=== PATIENT | male | born 1980 ===

== ENCOUNTER 2019-05-23 03:00 | Inpatient (IN) | payer OTHER ==
[2019-05-23 03:42] LABS: Anisocytosis Slight; HCT 48.6 % (39.0-53.0); HGB 15.6 gm/dL (13.0-17.5); MCH 34.1 pg (25.0-35.0); MCHC 32.1 g/dL (31.0-37.0); MCV 106.2 fL (80.0-100.0); Macrocytosis Marked; Mean Platelet Volume 10.7; Platelet Count 176 k/uL (150-450); RBC 4.58 m/uL (4.30-5.90); RDW 16.3 % (11.5-15.5)
[2019-05-23 03:46] LABS: ALT 89 U/L (4-49); African American GFR (CKD) >90 (>60 ml/min/1.73 sqM); Albumin 3.2 g/dL (3.5-5.0); Anion Gap 25 mmol/L; Blood Urea Nitrogen 7 mg/dL (9-20); Calcium 8.1 mg/dL (8.4-10.2); Carbon Dioxide 11 mmol/L (22-30); Chloride 95 mmol/L (98-107); Glucose 168 mg/dL (74-99); INR 1.1 (<1.2); Non-African American GFR(CKD) >90 (>60 ml/min/1.73 sqM); Partial Thromboplastin Time 23.6 sec (22.0-30.0); Prothrombin Time 11.6 sec (9.0-12.0); Sodium 131 mmol/L (137-145); Total Protein 7.1 g/dL (6.3-8.2)
--- NOTE | 2019-05-23 03:48 | XR ---
EXAMINATION TYPE: XR chest 2V DATE OF EXAM: 05/23/2019 COMPARISON: NONE HISTORY: Difficulty breathing TECHNIQUE: FINDINGS: There is blunting left costophrenic angle. There is linear density at the left lung base. T here is mild linear density right midlung. There is poor inspiration. Heart size is normal. No heart failure. Bony thorax is intact. IMPRESSION: Bilateral basilar atelectasis. Left pleural effusion. Limited exam due to patient's size. Normal heart. No heart failure.
[2019-05-23] MEDS ORDERED: SODIUM CHLORIDE 0.9% 1,000 ML IV ONE ×4 (03:54→11:25)
[2019-05-23] MEDS ORDERED: SODIUM CHLORIDE 0.9% 500 ML 500 ML IV ONE (03:54)
[2019-05-23 03:58] LABS: AST 431 U/L (17-59); Alcohol 128 mg/dL; Alkaline Phosphatase 288 U/L (38-126); Magnesium 1.9 mg/dL (1.6-2.3); Potassium 4.2 mmol/L (3.5-5.1)
[2019-05-23 03:59] LABS: Lactic Acid, Venous 12.8 mmol/L (0.7-2.0)
[2019-05-23] MEDS ORDERED: LORazepam 2 MG/ML INJ IV PRN (03:59)
[2019-05-23] MEDS ORDERED: THIAMINE 100 MG/ML 2 ML VIAL IM STA (03:59)
[2019-05-23] MEDS: LORazepam 2 MG/ML INJ IV PRN ×5 (04:10→22:01)
[2019-05-23 04:15] LABS: Band Neutrophils % 14 %; Neutrophils % (M) 78 %; Nucleated Red Blood Cells 6 /100 WBC (0-0); Total Cells Counted 200
[2019-05-23 04:16] LABS: Lymphocytes # (M) 1.19 k/uL (1.0-4.8); WBC 19.9 k/uL (3.8-10.6)
[2019-05-23 04:17] LABS: Polychromasia Present; Stomatocytes Present; Target Cells Present
[2019-05-23 04:18] LABS: Toxic Granulation Present
[2019-05-23 04:19] LABS: Toxic Vacuolation Present
--- NOTE | 2019-05-23 04:50 | CT ---
EXAMINATION TYPE: CT chest angio for PE DATE OF EXAM: 05/23/2019 COMPARISON: None HISTORY: SOB CT DLP: 753.5 mGycm Automated exposure control for dose reduction was used. CONTRAST: Performed with IV Contrast, patient injected with 100 mL of Isovue 370. There are 3-D post processed images. FINDINGS: There is mild to moderate left pleural effusion. There is bilateral basilar pulmonary atelectasis and infiltrate. Heart size is normal. There is no pericardial effusion. There is abdominal ascites. Ther e is diffuse fatty infiltration of the liver. Liver appears enlarged. Thoracic aorta shows no aneurysm or dissection. There is no mediastinal adenopathy. There are no eugenio r masses. I see no filling defects in the pulmonary arteries. Bony thorax is intact. IMPRESSION: Hepatomegaly. Left pleural effusion and bilateral basilar pulmonary infiltrates and atelectasis. No evidence of pulmonary embolism. Abdominal ascites.
[2019-05-23] MEDS ORDERED: AZITHROMYCIN 500 MG in SODIUM CHLORIDE 0.9% 250 ML IVPB ONE (05:00)
[2019-05-23] MEDS ORDERED: TOBRAMYCIN 0.3% OPHTH OINT 3.5 GM TUBE BOTH EYES STA (05:10)
--- NOTE | 2019-05-23 05:11 | ED ---
General Adult HPI - General Source: patient, EMS Mode of arrival: EMS Limitations: no limitations <Mercedes Ragland - Last Filed: 05/27/19 04:36> <Nahomy Chavez - Last Filed: 05/28/19 21:28> - General Chief complaint: Shortness of Breath Stated complaint: SOB/Weakness Time Seen by Provider: 05/23/19 03:07 - History of Present Illness Initial comments: 39-year-old male patient with past medical history significant for PTSD, alcohol abuse, elevated liver enzymes presents to the emergency department today for evaluation of shortness of breath and weakness. Patient states his been feeling unwell for the last one to 2 days. Patient states became very short of breath today. States he is having pain in his chest especially with breathing. He is reporting abdominal distention and tightness. Denies any nausea or vomiting. Patient does admit to drinking a fifth of whiskey per day. Denies any cough or congestion. Denies any hemoptysis. Denies any difficulty with urination or bowel movements. Patient denies noticing any skin color change. He does live at home with his and son, he states that they have reported no seizure-like activity. States his last drink was around 10:30. Patient denies any recent rash, back pain, numbness, tingling, dizziness, hematuria, dysuria, urinary urgency, urinary frequency, headache, visual changes, or any other complaints. (Mercedes Ragland) - Related Data Previous Rx's Medication Instructions Recorded Cefuroxime Axetil [Ceftin] 500 mg PO BID 10 Days #20 tab 05/27/19 Metoprolol Tartrate [Lopressor] 25 mg PO BID 30 Days #60 tab 05/27/19 Pantoprazole [Protonix] 40 mg PO AC-BID 30 Days #60 05/27/19 tablet. Spironolactone [Aldactone] 50 mg PO DAILY 30 Days #30 tab 05/27/19 Sucralfate [Carafate] 1 gm PO AC-TID #21 tab 05/27/19 Thiamine [Vitamin B-1] 100 mg PO BID-W/MEALS 30 Days #60 05/27/19 tab predniSONE 10 mg PO DIRECTED #30 tab 05/27/19 Allergies Allergy/AdvReac Type Severity Reaction Status Date / Time ibuprofen [From Motrin] Allergy Swelling Verified 05/23/19 09:38 Review of Systems ROS Other: All systems not noted in ROS Statement are negative. <ObieMercedes M - Last Filed: 05/27/19 04:36> ROS Other: All systems not noted in ROS Statement are negative. <Amber Chavezsebastián Beltran - Last Filed: 05/28/19 21:28> ROS Statement: Those systems with pertinent positive or pertinent negative responses have been documented in the HPI. Past Medical History Past Medical History: Liver Disease History of Any Multi-Drug Resistant Organisms: None Reported Past Surgical History: No Surgical Hx Reported Past Psychological History: No Psychological Hx Reported Smoking Status: Current every day smoker Past Alcohol Use History: Abuse, Heavy Past Drug Use History: None Reported - Past Family History Mother Family Medical History: Cancer Additional Family Medical History / Comment(s): Mother has colon cancer. Father History Unknown: Yes Additional Family Medical History / Comment(s): All pt knows about his father is that he is . <MaruandieMercedes Aramis - Last Filed: 05/27/19 04:36> General Exam Limitations: no limitations General appearance: alert, in no apparent distress, other (This is a well- developed, adult male patient in mild respiratory distress. Vital signs upon presentation are temperature 97.4F, pulse 138, respirations 32, blood pressure 131/88, pulse ox 97% on room air.) Eye exam: Present: PERRL, EOMI, scleral icterus (Bilateral). Absent: conjunctival injection, periorbital swelling ENT exam: Present: normal exam, normal oropharynx, mucous membranes moist Respiratory exam: Present: respiratory distress (Mild), accessory muscle use (Abdominal), decreased breath sounds (Lateral), other (Tachypnea). Absent: normal lung sounds bilaterally, wheezes, rales, rhonchi, stridor Cardiovascular Exam: Present: normal rhythm, tachycardia, normal heart sounds. Absent: systolic murmur, diastolic murmur, rubs, gallop, clicks GI/Abdominal exam: Present: soft, distended, normal bowel sounds. Absent: tenderness, guarding, rebound, rigid Neurological exam: Present: alert, oriented X3, CN II-XII intact Psychiatric exam: Present: normal affect, normal mood Skin exam: Present: warm, dry, intact, other (Jaundice). Absent: rash <Mercedes Ragland - Last Filed: 05/27/19 04:36> Course Vital Signs 05/23/19 05/23/19 05/23/19 03:02 03:29 04:30 Temperature 97.4 F L Pulse Rate 138 H 126 H Respiratory 32 H 32 H 28 H Rate Blood Pressure 131/88 130/89 O2 Sat by Pulse 97 97 Oximetry 05/23/19 05:46 Temperature 98.1 F Pulse Rate 134 H Respiratory 28 H Rate Blood Pressure 131/71 O2 Sat by Pulse 95 Oximetry EKG Findings - EKG Comments: EKG Findings:: EKG obtained at 46 shows sinus tachycardia, ventricular rate is 136, UT interval 118, QRS duration 76, QT 312, QTC 469. No evidence of ST elevation or depression. <Mercedes Ragland - Last Filed: 05/27/19 04:36> Medical Decision Making - Lab Data Result diagrams: 05/26/19 07:41 05/26/19 07:41 - Radiology Data Radiology results: report reviewed, image reviewed <Mercedes Ragland - Last Filed: 05/27/19 04:36> - Lab Data Result diagrams: 05/27/19 04:49 05/27/19 04:49 <Nahomy Chavez - Last Filed: 05/28/19 21:28> - Medical Decision Making 39-year-old male patient presented to the emergency department today for evaluation of increasing shortness of breath, abdominal distention, and weakness. Physical examination did reveal a distended firm abdomen. The patient was jaundiced with obvious scleral icterus. Diminished breath sounds bilaterally. He is to Neck. Labs reviewed and did reveal elevated liver enzymes, elevated bilirubin. Did exhibit a leukocytosis with elevated lactic acid. Did perform CT angiography of the chest to rule out pulmonary embolism, there is evidence for pleural effusion and bilateral infiltrates. He was given IV fluids. Started on antibiotics. Care is handed over to my attending Dr. Chavez at 0400. (Mercedes Ragland) I personally saw and evaluated the patient. I agree with plan for admission to the intensive care unit for cyst secondary to bilateral pneumonia, respiratory distress, alcohol intoxication, chronic liver disease secondary to alcohol abuse. (Nahomy Chavez) - Lab Data Lab Results 05/23/19 05/23/1920 Range/Units 03:22 03:22 03:22 WBC 19.9 H (3.8-10.6) k/uL RBC 4.58 (4.30-5.90) m/uL Hgb 15.6 (13.0-17.5) gm/dL Hct 48.6 (39.0-53.0) % MCV 106.2 H (80.0-100.0) fL MCH 34.1 (25.0-35.0) pg MCHC 32.1 (31.0-37.0) g/dL RDW 16.3 H (11.5-15.5) % Plt Count 176 (150-450) k/uL Neutrophils % (Manual) 78 % Band Neutrophils % 14 % Lymphocytes % (Manual) 6 % Monocytes % (Manual) 2 % Neutrophils # (Manual) 18.30 H (1.3-7.7) k/uL Lymphocytes # (Manual) 1.19 (1.0-4.8) k/uL Monocytes # (Manual) 0.40 (0-1.0) k/uL Nucleated RBCs 6 H (0-0) /100 WBC Manual Slide Review Performed Toxic Granulation Present Toxic Vacuolation Present Polychromasia Present Anisocytosis Slight Macrocytosis Marked A Target Cells Present Stomatocytes Present PT (9.0-12.0) sec INR (<1.2) APTT (22.0-30.0) sec Sodium 131 L (137-145) mmol/L Potassium 4.2 (3.5-5.1) mmol/L Chloride 95 L (98-107) mmol/L Carbon Dioxide 11 L (22-30) mmol/L Anion Gap 25 mmol/L BUN 7 L (9-20) mg/dL Creatinine 1.01 (0.66-1.25) mg/dL Est GFR (CKD-EPI)AfAm >90 (>60 ml/min/1.73 sqM) Est GFR (CKD-EPI)NonAf >90 (>60 ml/min/1.73 sqM) Glucose 168 H (74-99) mg/dL Lactic Ac Sepsis Rflx Plasma Lactic Acid Willam (0.7-2.0) mmol/L Calcium 8.1 L (8.4-10.2) mg/dL Magnesium 1.9 (1.6-2.3) mg/dL Total Bilirubin 7.0 H (0.2-1.3) mg/dL AST 431 H (17-59) U/L ALT 89 H (4-49) U/L Alkaline Phosphatase 288 H (38-126) U/L Ammonia (<30) umol/L Troponin I (0.000-0.034) ng/mL Total Protein 7.1 (6.3-8.2) g/dL Albumin 3.2 L (3.5-5.0) g/dL Serum Alcohol 128 mg/dL Influenza Type A RNA Not Detected (Not Detectd) Influenza Type B (PCR) Not Detected (Not Detectd) 05/23/19 05/23/19 05/23/19 Range/Units 03:22 03:22 03:22 WBC (3.8-10.6) k/uL RBC (4.30-5.90) m/uL Hgb (13.0-17.5) gm/dL Hct (39.0-53.0) % MCV (80.0-100.0) fL MCH (25.0-35.0) pg MCHC (31.0-37.0) g/dL RDW (11.5-15.5) % Plt Count (150-450) k/uL Neutrophils % (Manual) % Band Neutrophils % % Lymphocytes % (Manual) % Monocytes % (Manual) % Neutrophils # (Manual) (1.3-7.7) k/uL Lymphocytes # (Manual) (1.0-4.8) k/uL Monocytes # (Manual) (0-1.0) k/uL Nucleated RBCs (0-0) /100 WBC Manual Slide Review Toxic Granulation Toxic Vacuolation Polychromasia Anisocytosis Macrocytosis Target Cells Stomatocytes PT 11.6 (9.0-12.0) sec INR 1.1 (<1.2) APTT 23.6 (22.0-30.0) sec Sodium (137-145) mmol/L Potassium (3.5-5.1) mmol/L Chloride (98-107) mmol/L Carbon Dioxide (22-30) mmol/L Anion Gap mmol/L BUN (9-20) mg/dL Creatinine (0.66-1.25) mg/dL Est GFR (CKD-EPI)AfAm (>60 ml/min/1.73 sqM) Est GFR (CKD-EPI)NonAf (>60 ml/min/1.73 sqM) Glucose (74-99) mg/dL Lactic Ac Sepsis Rflx Plasma Lactic Acid Willam 12.8 H* (0.7-2.0) mmol/L Calcium (8.4-10.2) mg/dL Magnesium (1.6-2.3) mg/dL Total Bilirubin (0.2-1.3) mg/dL AST (17-59) U/L ALT (4-49) U/L Alkaline Phosphatase (38-126) U/L Ammonia 50 H (<30) umol/L Troponin I <0.012 (0.000-0.034) ng/mL Total Protein (6.3-8.2) g/dL Albumin (3.5-5.0) g/dL Serum Alcohol mg/dL Influenza Type A RNA (Not Detectd) Influenza Type B (PCR) (Not Detectd) 05/23/19 Range/Units 03:59 WBC (3.8-10.6) k/uL RBC (4.30-5.90) m/uL Hgb (13.0-17.5) gm/dL Hct (39.0-53.0) % MCV (80.0-100.0) fL MCH (25.0-35.0) pg MCHC (31.0-37.0) g/dL RDW (11.5-15.5) % Plt Count (150-450) k/uL Neutrophils % (Manual) % Band Neutrophils % % Lymphocytes % (Manual) % Monocytes % (Manual) % Neutrophils # (Manual) (1.3-7.7) k/uL Lymphocytes # (Manual) (1.0-4.8) k/uL Monocytes # (Manual) (0-1.0) k/uL Nucleated RBCs (0-0) /100 WBC Manual Slide Review Toxic Granulation Toxic Vacuolation Polychromasia Anisocytosis Macrocytosis Target Cells Stomatocytes PT (9.0-12.0) sec INR (<1.2) APTT (22.0-30.0) sec Sodium (137-145) mmol/L Potassium (3.5-5.1) mmol/L Chloride (98-107) mmol/L Carbon Dioxide (22-30) mmol/L Anion Gap mmol/L BUN (9-20) mg/dL Creatinine (0.66-1.25) mg/dL Est GFR (CKD-EPI)AfAm (>60 ml/min/1.73 sqM) Est GFR (CKD-EPI)NonAf (>60 ml/min/1.73 sqM) Glucose (74-99) mg/dL Lactic Ac Sepsis Rflx Y Plasma Lactic Acid Willam (0.7-2.0) mmol/L Calcium (8.4-10.2) mg/dL Magnesium (1.6-2.3) mg/dL Total Bilirubin (0.2-1.3) mg/dL AST (17-59) U/L ALT (4-49) U/L Alkaline Phosphatase (38-126) U/L Ammonia (<30) umol/L Troponin I (0.000-0.034) ng/mL Total Protein (6.3-8.2) g/dL Albumin (3.5-5.0) g/dL Serum Alcohol mg/dL Influenza Type A RNA (Not Detectd) Influenza Type B (PCR) (Not Detectd) - Radiology Data Two-view x-ray of the chest is obtained. Report is reviewed in its entirety. Impression by Dr. Beach shows bilateral basilar atelectasis. Left pleural effusion. Limited exam due to patient's size. Normal heart. No heart failure. CT angiography of the chest was obtained. Report reviewed in its entirety. Impression by Dr. Beach shows hepatomegaly. Left pleural effusion and bilateral basal or pulmonary infiltrates and atelectasis. No evidence of pulmonary embolism. Abdominal ascites. (Mercedes Ragland) Critical Care Time Critical Care Time: Yes Total Critical Care Time: 30 <Nahomy Chavez - Last Filed: 05/28/19 21:28> Critical Care Time: Critical Care Time Critical care time was exclusive of separately billable procedures and treating other patients and teaching time. Critical care was necessary to treat or prevent imminent or life-threatening deterioration. Given the critical condition in which the patient arrived, the patient was immediately assessed by myself and the nurse, and cardiac monitoring initiated due to the potential for rapid decompensation of the patient's clinical condition. During the course of the patients stay, I spent a considerable amount of time at the bedside performing serial re-evaluations of the patient's hemodynamic and clinical status because of the recognized potential threat to life or limb in this condition. I then had a chance to review not only all of the available current laboratory and radiographic studies obtained today, but I also reviewed old records available to me at the time. Additionally, any ancillary information available including manager care management records were reviewed. Sequential vital signs were obtained. (Nahomy Chavez) Disposition <Mercedes Ragland - Last Filed: 05/27/19 04:36> <Nahomy Chavez - Last Filed: 05/28/19 21:28> Clinical Impression: Sepsis, Bilateral pneumonia, Jaundice, Hepatitis Disposition: ADMITTED IP TO THIS HOSP Condition: Critical
--- NOTE | 2019-05-23 05:53 | US ---
EXAMINATION TYPE: US abdomen limited DATE OF EXAM: 05/23/2019 COMPARISON: NONE CLINICAL HISTORY: Elevated Bilirubin. Elevated labs. Exam limitations due to body habitus. EXAM MEASUREMENTS: Liver Length: 21.4 cm Gallbladder Wall: .4 cm CBD: .5 cm Right Kidney: 10.9 x 4.3 x 5.8 cm Pancreas: Obscured by bowel gas Liver: Increased attenuation limited ascites seen. Gallbladder: Limited no stones seen. Evidence for sonographic Ricardo's sign: No CBD: wnl Right Kidney: Limited IMPRESSION: There is hepatomegaly. No gallstones. No dilated ducts. Abdominal ascites is present.
[2019-05-23] MEDS ORDERED: NALOXONE 0.4 MG/ML 1 ML VIAL IV PRN (06:17)
[2019-05-23 07:17] LABS: ABG Base Excess -13.2 mmol/L; ABG HCO3 12 mmol/L (21-25); ABG Oxygen Saturation 92.6 % (94-97); ABG PCO2 21 mmHg (35-45); ABG PH 7.37 (7.35-7.45); ABG PO2 71 mmHg (83-108); ABG TCO2 13 mmol/L (19-24); Allen Test Performed? Yes
[2019-05-23 08:15] LABS: Glucose,Whole Blood 194 mg/dL (75-99)
[2019-05-23] MEDS: SODIUM CHLORIDE 0.9% 1,000 ML IV SCH ×2 (09:35→14:48)
[2019-05-23] MEDS ORDERED: 0.9% NACL WITH KCL 20 MEQ/L 1,000 ML with MVI, ADULT NO.4 WITH VIT K 10 ML, THIAMINE 10... IV SCH ×4 (10:30)
--- NOTE | 2019-05-23 10:30 | P.CNPUL ---
History of Present Illness Consult date: 05/23/19 Reason for consult: pneumonia History of present illness: A 39-year-old male patient, known history of alcoholism, known history of PTSD from his years in service in the , comes into the hospital because of shortness of breath and having pain in his chest especially with breathing. He also was reporting abdominal distention and tightness in his abdomen. No nausea. No vomiting. No abdominal pain. His been drinking a fifth of whiskey on a daily basis. He denies passing out from alcoholism. Denies having any previous history of delirium tremens. His been followed up by the [place] [facility]. He lives in [facility]. No previous admissions to our hospital. He is a smoker. At a time of admission, the patient was tachycardic and he was in sinus tachycardia with a heart rate ranging between 1:30 and 150 sinus, no hypotensi on, his white cell count was at 19, his LFTs were abnormal consistent with acute alcoholic hepatitis. Serum lactic acid level was 12.8 and the patient's blood work showed a component of an underlying gap metabolic acidosis. He has already being given a total of 2 L of IV fluids and the 30th it is running right now. His lactic acid level is down to 10.1. He is currently on 4 L of oxygen by nasa l cannula. He is awake and alert. No signs of any delirium tremens. Is following commands and answering questions. Correlation profile is within normal. His CAT scan of the abdomen showed hepatomegaly, small ascites, small left-sided pleural effusion along with compressive atelectasis of the left lung base. Review of Systems Constitutional: Reports weight gain Eyes: denies as per HPI, denies blurred vision, denies bulging eye, denies decreased vision, denies diplopia, denies discharge, denies dry eye, denies irritation, denies itching, denies pain, denies photophobia, denies loss of peripheral vision, denies loss of vision, denies tunnel vision/blind spots Ears: deny: decreased hearing, ear discharge, earache, tinnitus Ears, nose, mouth and throat: Denies headache, Denies sore throat Cardiovascular: Reports decreased exercise tolerance, Reports dyspnea on exertion, Reports rapid heart beat Respiratory: Reports dyspnea Gastrointestinal: Reports as per HPI, Reports jaundice, Reports loss of a ppetite, Reports nausea Genitourinary: Reports as per HPI Musculoskeletal: Reports as per HPI Musculoskeletal: absent: ankle pain, ankle stiffness, ankle swelling, as per HPI, elbow pain, elbow stiffness, elbow swelling, foot pain, foot stiffness, foot swelling, hand pain, hand stiffness, hand swelling, hip pain, hip stiffn ess, hip swelling, knee pain, knee stiffness, knee swelling, shoulder pain, shoulder stiffness, shoulder swelling, wrist pain, wrist stiffness, wrist swelling Integumentary: Reports as per HPI (The patient has extensive changes consistent with psoriasis) Neurological: Reports as per HPI Psychiatric: Reports as per HPI Endocrine: Reports as per HPI Hematologic/Lymphatic: Reports as per HPI Allergic/Immunologic: Reports as per HPI Past Medical History Past Medical History: GERD/Reflux, Hyperlipidemia, Liver Disease Additional Past Medical History / Comment(s): Alcoholism, past withdrawals with tremors/diaphoresis, elevated LFTs, occasional upper back pain. The patient also has a and he has history of PTSD History of Any Multi-Drug Resistant Organisms: None Reported Past Surgical History: No Surgical Hx Reported Additional Past Surgical History / Comment(s): Pt states he has never had surger y Past Anesthesia/Blood Transfusion Reactions: Unable to Obtain Additional Past Anesthesia/Blood Transfusion Reaction / Comment(s): Pt states he has never had surgery. Smoking Status: Current every day smoker - Past Family History Mother Family Medical History: Cancer Additional Family Medical History / Comment(s): Mother has colon cancer. Father History Unknown: Yes Additional Family Medical History / Comment(s): All pt knows about his father is that he is . Medications and Allergies Home Medications Medication Instructions Recorded Confirmed Type No Known Home Medications 05/23/19 05/23/19 History Allergies Allergy/AdvReac Type Severity Reaction Status Date / Time ibuprofen [From Motrin] Allergy Swelling Verified 05/23/19 09:38 Physical Exam Vitals: Vital Signs Temp Pulse Resp BP Pulse Ox 05/23/19 09:30 141 H 28 H 129/73 92 L 05/23/19 09:00 144 H 33 H 115/76 91 L 05/23/19 08:30 138 H 24 131/78 92 L 05/23/19 08:20 100 F H 142 H 37 H 131/78 93 L 05/23/19 05:46 98.1 F 134 H 28 H 131/71 95 05/23/19 04:30 126 H 28 H 130/89 97 05/23/19 03:29 32 H 05/23/19 03:02 97.4 F L 138 H 32 H 131/88 97 Intake and Output 05/22/19 05/23/19 05/23/19 22:59 06:59 14:59 Intake Total 20 Balance 20 Intake: IV 20 Sodium Chloride 0.9% 1, 20 000 ml @ 130 mls/hr IV . Q7H42M [facility] Rx#:[id number] Other: Voiding Method Urinal # Voids 0 Weight 99.79 kg 99.79 kg Awake and alert and on and active distress following instructions and following commands and answering questions appropriately. He is jaundiced. Head exam was generally normal. There was no scleral icterus or corneal arcus. Mucous membranes were moist. Neck was supple and without jugular venous distension, thyromegaly, or carotid bruits. Carotids were easily palpable bilaterally. There was no adenopathy. Mucous membranes are extremely dry and the patient has no oropharyngeal candidiasis Lungs sounds are diminished in lung bases more so on the left along with some dullness to percussion Heart sounds are tachycardic, positive for MRSA and there is no significant murmurs appreciated Abdomen is distended. Soft. There is hepatomegaly. Spleen cannot be palpated. No fluid wave or shifting dullness. No direct tenderness rebound tensile guarding. Examination of the extremities revealed easily palpable radial, femoral and pedal pulses. There was no cyanosis, clubbing or edema. Skin shows significant amount of psoriatic plaques throughout the abdomen and upper and lower extremities bilaterally. Neurologically awake and alert and there is no focal neurological deficits. Results - Laboratory Findings CBC and BMP: 05/23/19 03:22 05/23/19 03:22 ABG ABG pH 7.37 (7.35-7.45) 05/23/19 06:50 ABG pCO2 21 mmHg (35-45) L 05/23/19 06:50 ABG pO2 71 mmHg (83-108) L 05/23/19 06:50 ABG O2 Saturation 92.6 % (94-97) L 05/23/19 06:50 PT/INR, D-dimer PT 11.6 sec (9.0-12.0) 05/23/19 03:22 INR 1.1 (<1.2) 05/23/19 03:22 Abnormal lab findings: Abnormal Labs 05/23/19 05/23/19 05/23/19 03:22 03:22 03:22 WBC 19.9 H MCV 106.2 H RDW 16.3 H Neutrophils # (Manual) 18.30 H Nucleated RBCs 6 H Macrocytosis Marked A ABG pCO2 ABG pO2 ABG HCO3 ABG Total CO2 ABG O2 Saturation Sodium 131 L Chloride 95 L Carbon Dioxide 11 L BUN 7 L Glucose 168 H POC Glucose (mg/dL) Plasma Lactic Acid Willam 12.8 H* Calcium 8.1 L Total Bilirubin 7.0 H AST 431 H ALT 89 H Alkaline Phosphatase 288 H Ammonia 50 H Albumin 3.2 L 05/23/19 05/23/19 05/23/19 06:50 07:24 08:13 WBC MCV RDW Neutrophils # (Manual) Nucleated RBCs Macrocytosis ABG pCO2 21 L ABG pO2 71 L ABG HCO3 12 L ABG Total CO2 13 L ABG O2 Saturation 92.6 L Sodium Chloride Carbon Dioxide BUN Glucose POC Glucose (mg/dL) 194 H Plasma Lactic Acid Willam 10.9 H* Calcium Total Bilirubin AST ALT Alkaline Phosphatase Ammonia Albumin - Diagnostic Findings Chest x-ray: image reviewed CT scan - chest: image reviewed Assessment and Plan Plan: 1 acute hypoxic respiratory failure with suspected left lower lobe pneumonia, consider aspiration in the setting of a chronic alcoholism and alcohol drinking. The patient has a limited consolidation of the left lobe base along with small left-sided pleural effusion. 2 alcoholism 3 acute alcohol intoxication 4 acute alcoholic hepatitis 5 massive hepatomegaly and abdominal distention with minimal ascites 6 jaundice 7 sinus tachycardia 8 acute lactic acidosis secondary to above 9 abdominal distention 10 smoker 11 PTSD 12 leukocytosis, likely reactive Plan Give the patient total of 4 L of IV fluids Maintenance IV fluids with normal saline with 20 of potassium along with multivitamins and thiamine and folate at the rate of 150 mL Monitor lactate Cover the patient IV Zosyn Oral prednisone 40 mg regarding alcoholic hepatitis IV Protonix Subcu heparin for DVT prophylaxis Watch for any signs of delirium tremens, none for now Ativan as needed for any agitation or restlessness Monitor electrolytes Blood cultures GI consultation Nicotine patch Pro-calcitonin level We'll follow
[2019-05-23] MEDS: predniSONE 20 MG TAB PO SCH (11:23)
[2019-05-23 13:06] LABS: Appearance,Urine Cloudy (Clear); Bilirubin,Urine 2+ (Negative); Blood,Urine Negative (Negative); Color,Urine Dark Brown; Glucose,Urine (UA) Negative (Negative); Ketones,Urine Trace (Negative); Leukocyte Esterase,Urine Negative (Negative); Mucus,Urine Rare /hpf; Nitrite,Urine Negative (Negative); PH, Urine 6.5 (5.0-8.0); Protein,Urine 1+ (Negative); RBC,Urine 12 /hpf (0-5); Squamous Epithelial Cell,Urine 1 /hpf (0-4); WBC,Urine 5 /hpf (0-5)
[2019-05-23 13:10] LABS: Specific Gravity,Urine >1.050 (1.001-1.035)
--- NOTE | 2019-05-23 15:02 | P.HPIM ---
History of Present Illness 39-year-old male came In with complaints of shortness of breath significant with pleuritic chest pain. Patient is found to have bibasilar pneumonia. On the right lower low-dose possibility of aspiration pneumonia. Patient was int oxicated with all call abuse. Patient does drink one fifth alcohol daily on daily basis and patient is willing to quit alcohol patient does have a chronic hepatitis. Patient is on an NSAID of the protocol and broad-spectrum and Zosyn. Patient's shortness of breath is bit better. Review of Systems REVIEW OF SYSTEMS: CONSTITUTIONAL: No fever, no malaise, no fatigue. HEENT: No recent visual problems or hearing problems. Denied any sore throat. CARDIOVASCULAR: No orthopnea, PND, no palpitations, no syncope. PULMONARY: no hemoptysis. GASTROINTESTINAL: No diarrhea, no nausea, no vomiting, no abdominal pain. NEUROLOGICAL: No headaches, no weakness, no numbness. HEMATOLOGICAL: Denies any bleeding or petechiae. GENITOURINARY: Denies any burning micturition, frequency, or urgency. MUSCULOSKELETAL/RHEUMATOLOGICAL: Denies any joint pain, swelling, or any muscle pain. ENDOCRINE: Denies any polyuria or polydipsia. The rest of the 14-point review of systems is negative. Past Medical History Past Medical History: GERD/Reflux, Hyperlipidemia, Liver Disease Additional Past Medical History / Comment(s): Alcoholism, past withdrawals with tremors/diaphoresis, elevated LFTs, occasional upper back pain. The patient also has a and he has history of PTSD History of Any Multi-Drug Resistant Organisms: None Reported Past Surgical History: No Surgical Hx Reported Additional Past Surgical History / Comment(s): Pt states he has never had surgery Past Anesthesia/Blood Transfusion Reactions: Unable to Obtain Additional Past Anesthesia/Blood Transfusion Reaction / Comment(s): Pt states he has never had surgery. Smoking Status: Current every day smoker - Past Family History Mother Family Medical History: Cancer Additional Family Medical History / Comment(s): Mother has colon cancer. Father History Unknown: Yes Additional Family Medical History / Comment(s): All pt knows about his father is that he is . Medications and Allergies Home Medications Medication Instructions Recorded Confirmed Type No Known Home Medications 05/23/19 05/23/19 History Allergies Allergy/AdvReac Type Severity Reaction Status Date / Time ibuprofen [From Motrin] Allergy Swelling Verified 05/23/19 09:38 Physical Exam Vitals: Vital Signs Temp Pulse Resp BP Pulse Ox 05/23/19 14:00 138 H 22 107/86 94 L 05/23/19 13:30 137 H 27 H 120/79 93 L 05/23/19 13:00 141 H 29 H 121/80 94 L 05/23/19 12:30 140 H 30 H 128/78 05/23/19 12:00 99.9 F H 140 H 18 122/71 94 L 05/23/19 11:30 138 H 31 H 124/75 92 L 05/23/19 11:00 135 H 31 H 112/95 92 L 05/23/19 10:30 149 H 126/72 05/23/19 10:00 140 H 30 H 110/73 92 L 05/23/19 09:30 141 H 28 H 129/73 92 L 05/23/19 09:00 144 H 33 H 115/76 91 L 05/23/19 08:30 138 H 24 131/78 92 L 05/23/19 08:20 100 F H 142 H 37 H 131/78 93 L 05/23/19 05:46 98.1 F 134 H 28 H 131/71 95 05/23/19 04:30 126 H 28 H 130/89 97 05/23/19 03:29 32 H 05/23/19 03:02 97.4 F L 138 H 32 H 131/88 97 Intake and Output 05/22/19 05/23/19 05/23/19 22:59 06:59 14:59 Intake Total 2470 Output Total 200 Balance 2270 Intake: IV 2470 Mvi, Adult No.4 with Vit 450 K 10 ml Thiamine 100 mg Folic Acid 1 mg In 0.9% NaCl with KCl 20 Meq/l 1, 000 ml @ 150 mls/hr IV . BY DURATION [facility] Rx#: [id number] Sodium Chloride 0.9% 1, 20 000 ml @ 130 mls/hr IV . Q7H42M [facility] Rx#:[id number] Sodium Chloride 0.9% 1, 2000 000 ml @ 999 mls/hr IV . Q1H1M [facility] Rx#:[id number] Output: Urine 200 Other: Voiding Method Urinal # Voids 0 # Bowel Movements 1 Weight 99.79 kg 99.79 kg PHYSICAL EXAMINATION: GENERAL: The patient is alert and oriented x3, not in any acute distress. Well developed, well nourished. HEENT: Pupils are round and equally reacting to light. EOMI. No scleral icterus. No conjunctival pallor. Normocephalic, atraumatic. No pharyngeal erythema. No thyromegaly. CARDIOVASCULAR: S1 and S2 present. No murmurs, rubs, or gallops. PULMONARY: Crackles in the left lower lung bases. Good air entry bilateral lung hernandez. ABDOMEN: Soft, nontender, nondistended, normoactive bowel sounds. No palpable organomegaly. MUSCULOSKELETAL: No joint swelling or deformity. EXTREMITIES: No cyanosis, clubbing, or pedal edema. NEUROLOGICAL: Gross neurological examination did not reveal any focal deficits. SKIN: No rashes. Results CBC & Chem 7: 05/23/19 03:22 05/23/19 03:22 Labs: Abnormal Lab Results - Last 24 Hours (Table) 05/23/19 05/23/19 05/23/19 Range/Units 03:22 03:22 03:22 WBC 19.9 H (3.8-10.6) k/uL MCV 106.2 H (80.0-100.0) fL RDW 16.3 H (11.5-15.5) % Neutrophils # (Manual) 18.30 H (1.3-7.7) k/uL Nucleated RBCs 6 H (0-0) /100 WBC Macrocytosis Marked A ABG pCO2 (35-45) mmHg ABG pO2 (83-108) mmHg ABG HCO3 (21-25) mmol/L ABG Total CO2 (19-24) mmol/L ABG O2 Saturation (94-97) % Sodium 131 L (137-145) mmol/L Chloride 95 L (98-107) mmol/L Carbon Dioxide 11 L (22-30) mmol/L BUN 7 L (9-20) mg/dL Glucose 168 H (74-99) mg/dL POC Glucose (mg/dL) (75-99) mg/dL Plasma Lactic Acid Willam 12.8 H* (0.7-2.0) mmol/L Calcium 8.1 L (8.4-10.2) mg/dL Total Bilirubin 7.0 H (0.2-1.3) mg/dL AST 431 H (17-59) U/L ALT 89 H (4-49) U/L Alkaline Phosphatase 288 H (38-126) U/L Ammonia 50 H (<30) umol/L Albumin 3.2 L (3.5-5.0) g/dL Ur Specific [place] (1.001-1.035) Urine Protein (Negative) Urine Ketones (Negative) Urine Bilirubin (Negative) Urine RBC (0-5) /hpf Urine Mucus (None) /hpf 05/23/19 05/23/19 05/23/19 Range/Units 06:50 07:24 08:13 WBC (3.8-10.6) k/uL MCV (80.0-100.0) fL RDW (11.5-15.5) % Neutrophils # (Manual) (1.3-7.7) k/uL Nucleated RBCs (0-0) /100 WBC Macrocytosis ABG pCO2 21 L (35-45) mmHg ABG pO2 71 L (83-108) mmHg ABG HCO3 12 L (21-25) mmol/L ABG Total CO2 13 L (19-24) mmol/L ABG O2 Saturation 92.6 L (94-97) % Sodium (137-145) mmol/L Chloride (98-107) mmol/L Carbon Dioxide (22-30) mmol/L BUN (9-20) mg/dL Glucose (74-99) mg/dL POC Glucose (mg/dL) 194 H (75-99) mg/dL Plasma Lactic Acid Willam 10.9 H* (0.7-2.0) mmol/L Calcium (8.4-10.2) mg/dL Total Bilirubin (0.2-1.3) mg/dL AST (17-59) U/L ALT (4-49) U/L Alkaline Phosphatase (38-126) U/L Ammonia (<30) umol/L Albumin (3.5-5.0) g/dL Ur Specific [place] (1.001-1.035) Urine Protein (Negative) Urine Ketones (Negative) Urine Bilirubin (Negative) Urine RBC (0-5) /hpf Urine Mucus (None) /hpf 05/23/19 05/23/19 Range/Units 11:31 12:29 WBC (3.8-10.6) k/uL MCV (80.0-100.0) fL RDW (11.5-15.5) % Neutrophils # (Manual) (1.3-7.7) k/uL Nucleated RBCs (0-0) /100 WBC Macrocytosis ABG pCO2 (35-45) mmHg ABG pO2 (83-108) mmHg ABG HCO3 (21-25) mmol/L ABG Total CO2 (19-24) mmol/L ABG O2 Saturation (94-97) % Sodium (137-145) mmol/L Chloride (98-107) mmol/L Carbon Dioxide (22-30) mmol/L BUN (9-20) mg/dL Glucose (74-99) mg/dL POC Glucose (mg/dL) (75-99) mg/dL Plasma Lactic Acid Willam 8.8 H* (0.7-2.0) mmol/L Calcium (8.4-10.2) mg/dL Total Bilirubin (0.2-1.3) mg/dL AST (17-59) U/L ALT (4-49) U/L Alkaline Phosphatase (38-126) U/L Ammonia (<30) umol/L Albumin (3.5-5.0) g/dL Ur Specific [place] >1.050 H (1.001-1.035) Urine Protein 1+ H (Negative) Urine Ketones Trace H (Negative) Urine Bilirubin 2+ H (Negative) Urine RBC 12 H (0-5) /hpf Urine Mucus Rare H (None) /hpf Microbiology - Last 24 Hours (Table) 05/23/19 03:22 Blood Culture - Preliminary Blood Thrombosis Risk Factor Assmnt - Choose All That Apply Any of the Below Risk Factors Present?: Yes Each Factor Represents 1 point: Obesity (BMI >25) Other Risk Factors: No Other congenital or acquired thrombophilia - If yes, enter type in comment: No Thrombosis Risk Factor Assessment Total Risk Factor Score: 1 Thrombosis Risk Factor Assessment Level: Low Risk Assessment and Plan Plan: -Severe sepsis with lactic acidosis: Secondary to aspiration pneumonia. Patient is on Rocephin with improvement of his symptoms because of general good and continue this antibiotic. Continue with respiratory support with oxygen. -Acute hypoxic respiratory failure secondary to left lower lobe pneumonia which is probably because of aspiration patient has left-sided pleural effusion as well. Patient is being treated for aspiration pneumonia with Rocephin and azithromycin which was continued -Nicotine abuse history: Counseling was provided -Alcohol abuse: Counseling was provided -Alcohol withdrawals which is expected patient is on Ativan CIWA protocol Acute alcoholic hepatitis expected to improve with cessation of alcohol -Hypovolemic hyponatremia expected to improve and improved with IV fluids -Lactic acidosis secondary to sepsis is a pleasant auscultation Heart sinus tach cardia secondary to sepsis which is expected to improve with improvement of sepsis -PTSD: Patient will be resumed on his home medications -DVT prophylaxis with Lovenox, GI prophylaxis with Pepcid
[2019-05-23] MEDS ORDERED: Magnesium Replacement Protocol 1 EACH MISC MISCELLANE PRN (17:56)
[2019-05-23] MEDS: MAGNESIUM SULFATE-D5W PMX 1 GM in DEXTROSE/WATER 1 100ML.BAG IVPB SCH ×2 (18:38→19:46)
[2019-05-23 18:45] LABS: HCT 40.9 % (39.0-53.0); HGB 12.9 gm/dL (13.0-17.5); MCH 33.5 pg (25.0-35.0); MCHC 31.5 g/dL (31.0-37.0); MCV 106.6 fL (80.0-100.0); RBC 3.84 m/uL (4.30-5.90)
[2019-05-23 18:46] LABS: Glucose,Whole Blood 163 mg/dL (75-99)
[2019-05-23 18:46] LABS: Anisocytosis Slight; Macrocytosis Marked; Mean Platelet Volume 11.6; Platelet Count 158 k/uL (150-450); RDW 16.8 % (11.5-15.5)
[2019-05-23] MEDS: THIAMINE 100 MG TAB PO SCH (18:46)
[2019-05-23] MEDS: INSULIN ASPART (NovoLOG) 100 UNIT/ML VIAL SQ SCH (18:49)
[2019-05-23] MEDS: PANTOPRAZOLE 40 MG/10 ML VIAL IVP SCH (18:49)
[2019-05-23 19:34] LABS: Band Neutrophils % 1 %; Lymphocytes # (M) 1.31 k/uL (1.0-4.8); Monocytes # (M) 0.19 k/uL (0-1.0); Neutrophils % (M) 92 %; Nucleated Red Blood Cells 3 /100 WBC (0-0); Poikilocytosis (M) Present; Polychromasia Present; Total Cells Counted 200; WBC 18.7 k/uL (3.8-10.6)
[2019-05-23] MEDS: NICOTINE 21MG/24HR PATCH TRANSDERM SCH (19:46)
[2019-05-23] MEDS: PIPERACILLIN-TAZOBACTAM 3.375 GM in SODIUM CHLORIDE 0.9% 100 ML IVPB SCH (20:48)
[2019-05-23] MEDS ORDERED: FAMOTIDINE 20 MG TAB PO SCH (21:00)
[2019-05-23 23:55] LABS: Glucose,Whole Blood 133 mg/dL (75-99)
[2019-05-24] MEDS: INSULIN ASPART (NovoLOG) 100 UNIT/ML VIAL SQ SCH ×4 (00:03→17:18)
[2019-05-24] MEDS: PIPERACILLIN-TAZOBACTAM 3.375 GM in SODIUM CHLORIDE 0.9% 100 ML IVPB SCH ×3 (04:29→20:19)
[2019-05-24 05:23] LABS: Anisocytosis Slight; HCT 41.4 % (39.0-53.0); HGB 12.8 gm/dL (13.0-17.5); MCH 33.9 pg (25.0-35.0); MCHC 30.9 g/dL (31.0-37.0); Macrocytosis Marked; Mean Platelet Volume 10.5; Platelet Count 132 k/uL (150-450); RBC 3.78 m/uL (4.30-5.90); RDW 16.9 % (11.5-15.5)
[2019-05-24 05:34] LABS: ALT 95 U/L (4-49); AST 425 U/L (17-59); African American GFR (CKD) >90 (>60 ml/min/1.73 sqM); Albumin 2.6 g/dL (3.5-5.0); Alkaline Phosphatase 197 U/L (38-126); Anion Gap 7 mmol/L; Blood Urea Nitrogen 11 mg/dL (9-20); Calcium 7.1 mg/dL (8.4-10.2); Carbon Dioxide 20 mmol/L (22-30); Chloride 104 mmol/L (98-107); Glucose 114 mg/dL (74-99); LDH 1380 U/L (313-618); MCV 109.7 fL (80.0-100.0); Magnesium 2.2 mg/dL (1.6-2.3); Non-African American GFR(CKD) >90 (>60 ml/min/1.73 sqM); Phosphorus 1.4 mg/dL (2.5-4.5); Potassium 4.2 mmol/L (3.5-5.1); Sodium 131 mmol/L (137-145); Total Bilirubin 7.4 mg/dL (0.2-1.3); Total Protein 5.8 g/dL (6.3-8.2)
[2019-05-24 05:37] LABS: INR 1.1 (<1.2); Prothrombin Time 11.4 sec (9.0-12.0)
[2019-05-24] MEDS ORDERED: AZITHROMYCIN 500 MG in SODIUM CHLORIDE 0.9% 250 ML IVPB SCH (06:00)
[2019-05-24 06:14] LABS: Glucose,Whole Blood 124 mg/dL (75-99)
[2019-05-24 07:25] LABS: Band Neutrophils % 22 %; Eosinophils # (M) 0.16 k/uL (0-0.7); Lymphocytes # (M) 1.42 k/uL (1.0-4.8); Metamyelocytes # (M) 0.16 k/uL (0); Metamyelocytes % 1 %; Monocytes # (M) 0.63 k/uL (0-1.0); Myelocytes # (M) 0.16 k/uL (0); Myelocytes % 1 %; Neutrophils % (M) 64 %; Nucleated Red Blood Cells 7 /100 WBC (0-0); Total Cells Counted 200; WBC 15.8 k/uL (3.8-10.6)
[2019-05-24 07:26] LABS: Polychromasia Present; Target Cells Present
[2019-05-24 07:30] LABS: Poikilocytosis (M) Present
--- NOTE | 2019-05-24 08:03 | P.PN ---
Subjective Progress Note Date: 05/24/19 On 05/24/2019 on seeing the patient for a follow-up. He is a bit more comfortable compared to yesterday. His resting comfortably in bed. No signs of any significant respiratory distress this morning. He is on 6 L of oxygen by nasal cannula. Note that he had a small left-sided pleural effusion along with some limited consolidation/atelectasis of the left lung base. Note that the patient was confirmed to be septic. The blood culture was positive for E. coli. He is currently on IV Zosyn. He has received more than 4 L of IV fluid bolus and currently is on a normal saline with 20 mEq of potassium and multivitamins at the rate of 150 mL an hour. Urine output is no order of 25 mL an hour. The patient is in a positive fluid balance. Is less tachycardic compared to yesterday. He remains in sinus tachycardia and the heart rate is ranging between 120 and 125 beats per minute. Obviously this is improved compared to yesterday. He has not required any pressors. He has taken Zosyn 3.375 g every 8 hours. No fever. No chills. Lactic acid level dropped down to 2.0. Abdomen remains full there is nontender. The ultrasound of the abdomen was done and showed hepatomegaly and there was no evidence of any cholecystitis or gallbladder stones in the common bile duct was within normal limits. The patient does not any open wounds or cellulitis. Urine analysis was slightly abnormal. As such, the exact cause for this E. coli septicemia is not clear. Consider abdominal sources/translocation of bacteria from his abdomen. Consider aspiration pneumonia. Urine is another source. White cell count is at 15.8. Hemoglobin stable at 12.8. The BUN is 11 creatinine of 0.5 and the LFTs are still abnormal with a AST of 425 and in ALT of 95 with an LDH of 1380. The calcium is at 7.1. Total protein was 5.8 with an albumin of 2.6. No other complaints otherwise for now. No signs of any delirium tremens. His resting comfortably in bed. He is nothing by mouth. Objective - Vital Signs Vital signs: Vital Signs Temp 98.5 F 05/24/19 04:00 Pulse 123 H 05/24/19 07:00 Resp 21 05/24/19 07:00 BP 109/69 05/24/19 07:00 Pulse Ox 94 L 05/24/19 07:00 Intake & Output 05/23/19 05/24/19 05/24/19 18:59 06:59 18:59 Intake Total 3130 2075 150 Output Total 400 433 27 Balance 2730 1642 123 Weight 99.79 kg 103.8 kg Intake: IV 3130 1900 150 0.9% NaCl with KCl 20 Meq 150 1800 150 /l 1,000 ml @ 150 mls/hr IV .BY DURATION [facility] Rx#: [id number] Mvi, Adult No.4 with Vit 900 K 10 ml Thiamine 100 mg Folic Acid 1 mg In 0.9% NaCl with KCl 20 Meq/l 1, 000 ml @ 150 mls/hr IV . BY DURATION [facility] Rx#: [id number] Piperacillin-Tazobactam 3 100 .375 gm In Sodium Chloride 0.9% 100 ml @ 25 mls/hr IVPB Q8H [facility] Rx#: [id number] Sodium Chloride 0.9% 1, 80 000 ml @ 130 mls/hr IV . Q7H42M [facility] Rx#:[id number] Sodium Chloride 0.9% 1, 2000 000 ml @ 999 mls/hr IV . Q1H1M [facility] Rx#:[id number] Intake, IV Titration 175 Amount Magnesium Sulfate-D5w Pmx 100 1 gm In Dextrose/Water 1 100ml.bag @ 100 mls/hr IVPB Q1H [facility] Rx#: [id number] Piperacillin-Tazobactam 3 75 .375 gm In Sodium Chloride 0.9% 100 ml @ 25 mls/hr IVPB Q8H [facility] Rx#: [id number] Output: Urine 400 432 27 Stool 1 Other: Voiding Method Urinal Indwelling Catheter # Voids 0 # Bowel Movements 1 1 - Exam Awake and alert and on and active distress following instructions and following commands and answering questions appropriately. He is jaundiced. Head exam was generally normal. There was no scleral icterus or corneal arcus. Mucous membranes were moist. Neck was supple and without jugular venous distension, thyromegaly, or carotid bruits. Carotids were easily palpable bilaterally. There was no adenopathy. Mucous membranes are extremely dry and the patient has no oropharyngeal candidiasis Lungs sounds are diminished in lung bases more so on the left along with some dullness to percussion Heart sounds are tachycardic, positive for MRSA and there is no significant murmurs appreciated Abdomen is distended. Soft. There is hepatomegaly. Spleen cannot be palpated. No fluid wave or shifting dullness. No direct tenderness rebound tensile guarding. Examination of the extremities revealed easily palpable radial, femoral and pedal pulses. There was no cyanosis, clubbing or edema. Skin shows significant amount of psoriatic plaques throughout the abdomen and upper and lower extremities bilaterally. Neurologically awake and alert and there is no focal neurological deficits. - Labs CBC & Chem 7: 05/24/19 04:22 05/24/19 04:22 Labs: Abnormal Lab Results - Last 24 Hours (Table) 05/23/19 05/23/19 05/23/19 Range/Units 07:24 08:13 11:31 WBC (3.8-10.6) k/uL RBC (4.30-5.90) m/uL Hgb (13.0-17.5) gm/dL MCV (80.0-100.0) fL MCHC (31.0-37.0) g/dL RDW (11.5-15.5) % Plt Count (150-450) k/uL Neutrophils # (Manual) (1.3-7.7) k/uL Metamyelocytes # (Man) (0) k/uL Myelocytes # (Manual) (0) k/uL Nucleated RBCs (0-0) /100 WBC Macrocytosis Sodium (137-145) mmol/L Carbon Dioxide (22-30) mmol/L Creatinine (0.66-1.25) mg/dL Glucose (74-99) mg/dL POC Glucose (mg/dL) 194 H (75-99) mg/dL Plasma Lactic Acid Willam 10.9 H* 8.8 H* (0.7-2.0) mmol/L Calcium (8.4-10.2) mg/dL Phosphorus (2.5-4.5) mg/dL Total Bilirubin (0.2-1.3) mg/dL AST (17-59) U/L ALT (4-49) U/L Alkaline Phosphatase (38-126) U/L Lactate Dehydrogenase (313-618) U/L Total Protein (6.3-8.2) g/dL Albumin (3.5-5.0) g/dL Procalcitonin (0.02-0.09) ng/mL Ur Specific [place] (1.001-1.035) Urine Protein (Negative) Urine Ketones (Negative) Urine Bilirubin (Negative) Urine RBC (0-5) /hpf Urine Mucus (None) /hpf 05/23/19 05/23/19 05/23/19 Range/Units 11:31 12:29 15:35 WBC (3.8-10.6) k/uL RBC (4.30-5.90) m/uL Hgb (13.0-17.5) gm/dL MCV (80.0-100.0) fL MCHC (31.0-37.0) g/dL RDW (11.5-15.5) % Plt Count (150-450) k/uL Neutrophils # (Manual) (1.3-7.7) k/uL Metamyelocytes # (Man) (0) k/uL Myelocytes # (Manual) (0) k/uL Nucleated RBCs (0-0) /100 WBC Macrocytosis Sodium (137-145) mmol/L Carbon Dioxide (22-30) mmol/L Creatinine (0.66-1.25) mg/dL Glucose (74-99) mg/dL POC Glucose (mg/dL) (75-99) mg/dL Plasma Lactic Acid Willam 5.2 H* (0.7-2.0) mmol/L Calcium (8.4-10.2) mg/dL Phosphorus (2.5-4.5) mg/dL Total Bilirubin (0.2-1.3) mg/dL AST (17-59) U/L ALT (4-49) U/L Alkaline Phosphatase (38-126) U/L Lactate Dehydrogenase (313-618) U/L Total Protein (6.3-8.2) g/dL Albumin (3.5-5.0) g/dL Procalcitonin 3.85 H (0.02-0.09) ng/mL Ur Specific [place] >1.050 H (1.001-1.035) Urine Protein 1+ H (Negative) Urine Ketones Trace H (Negative) Urine Bilirubin 2+ H (Negative) Urine RBC 12 H (0-5) /hpf Urine Mucus Rare H (None) /hpf 05/23/19 05/23/1920 Range/Units 18:08 18:44 19:52 WBC 18.7 H (3.8-10.6) k/uL RBC 3.84 L (4.30-5.90) m/uL Hgb 12.9 L (13.0-17.5) gm/dL MCV 106.6 H (80.0-100.0) fL MCHC (31.0-37.0) g/dL RDW 16.8 H (11.5-15.5) % Plt Count (150-450) k/uL Neutrophils # (Manual) 17.30 H (1.3-7.7) k/uL Metamyelocytes # (Man) (0) k/uL Myelocytes # (Manual) (0) k/uL Nucleated RBCs 3 H (0-0) /100 WBC Macrocytosis Marked A Sodium (137-145) mmol/L Carbon Dioxide (22-30) mmol/L Creatinine (0.66-1.25) mg/dL Glucose (74-99) mg/dL POC Glucose (mg/dL) 163 H (75-99) mg/dL Plasma Lactic Acid Willam 3.0 H* (0.7-2.0) mmol/L Calcium (8.4-10.2) mg/dL Phosphorus (2.5-4.5) mg/dL Total Bilirubin (0.2-1.3) mg/dL AST (17-59) U/L ALT (4-49) U/L Alkaline Phosphatase (38-126) U/L Lactate Dehydrogenase (313-618) U/L Total Protein (6.3-8.2) g/dL Albumin (3.5-5.0) g/dL Procalcitonin (0.02-0.09) ng/mL Ur Specific [place] (1.001-1.035) Urine Protein (Negative) Urine Ketones (Negative) Urine Bilirubin (Negative) Urine RBC (0-5) /hpf Urine Mucus (None) /hpf 05/23/19 05/24/19 05/24/19 Range/Units 23:53 04:22 04:22 WBC 15.8 H (3.8-10.6) k/uL RBC 3.78 L (4.30-5.90) m/uL Hgb 12.8 L (13.0-17.5) gm/dL MCV 109.7 H (80.0-100.0) fL MCHC 30.9 L (31.0-37.0) g/dL RDW 16.9 H (11.5-15.5) % Plt Count 132 L (150-450) k/uL Neutrophils # (Manual) 13.50 H (1.3-7.7) k/uL Metamyelocytes # (Man) 0.16 H (0) k/uL Myelocytes # (Manual) 0.16 H (0) k/uL Nucleated RBCs 7 H (0-0) /100 WBC Macrocytosis Marked A Sodium 131 L (137-145) mmol/L Carbon Dioxide 20 L (22-30) mmol/L Creatinine 0.55 L (0.66-1.25) mg/dL Glucose 114 H (74-99) mg/dL POC Glucose (mg/dL) 133 H (75-99) mg/dL Plasma Lactic Acid [place] (0.7-2.0) mmol/L Calcium 7.1 L (8.4-10.2) mg/dL Phosphorus 1.4 L (2.5-4.5) mg/dL Total Bilirubin 7.4 H (0.2-1.3) mg/dL AST 425 H (17-59) U/L ALT 95 H (4-49) U/L Alkaline Phosphatase 197 H (38-126) U/L Lactate Dehydrogenase 1380 H (313-618) U/L Total Protein 5.8 L (6.3-8.2) g/dL Albumin 2.6 L (3.5-5.0) g/dL Procalcitonin (0.02-0.09) ng/mL Ur Specific [place] (1.001-1.035) Urine Protein (Negative) Urine Ketones (Negative) Urine Bilirubin (Negative) Urine RBC (0-5) /hpf Urine Mucus (None) /hpf 05/24/19 Range/Units 06:13 WBC (3.8-10.6) k/uL RBC (4.30-5.90) m/uL Hgb (13.0-17.5) gm/dL MCV (80.0-100.0) fL MCHC (31.0-37.0) g/dL RDW (11.5-15.5) % Plt Count (150-450) k/uL Neutrophils # (Manual) (1.3-7.7) k/uL Metamyelocytes # (Man) (0) k/uL Myelocytes # (Manual) (0) k/uL Nucleated RBCs (0-0) /100 WBC Macrocytosis Sodium (137-145) mmol/L Carbon Dioxide (22-30) mmol/L Creatinine (0.66-1.25) mg/dL Glucose (74-99) mg/dL POC Glucose (mg/dL) 124 H (75-99) mg/dL Plasma Lactic Acid Willam (0.7-2.0) mmol/L Calcium (8.4-10.2) mg/dL Phosphorus (2.5-4.5) mg/dL Total Bilirubin (0.2-1.3) mg/dL AST (17-59) U/L ALT (4-49) U/L Alkaline Phosphatase (38-126) U/L Lactate Dehydrogenase (313-618) U/L Total Protein (6.3-8.2) g/dL Albumin (3.5-5.0) g/dL Procalcitonin (0.02-0.09) ng/mL Ur Specific [place] (1.001-1.035) Urine Protein (Negative) Urine Ketones (Negative) Urine Bilirubin (Negative) Urine RBC (0-5) /hpf Urine Mucus (None) /hpf Microbiology - Last 24 Hours (Table) 05/23/19 03:30 Blood Culture Gram Stain - Preliminary Blood Blood Culture - Preliminary Escherichia coli 05/23/19 03:22 Blood Culture - Preliminary Blood Assessment and Plan Plan: 1 acute hypoxic respiratory failure with suspected left lower lobe pneumonia, consider aspiration in the setting of a chronic alcoholism and alcohol drinking. The patient has a limited consolidation of the left lobe base along with small left-sided pleural effusion. 2 acute E. coli sepsis and the exact source is not clear. Consider aspiration pneumonia. Consider intra-abdominal source with translocation of bacteria. Gallbladder shows no evidence of any cholecystitis. No significant ascites. Spontaneous bacterial peritonitis is felt to be less likely. Urinary sources cannot be completely excluded. 3 alcoholism with acute alcohol intoxication 4 acute alcoholic hepatitis, LFTs are still abnormal 5 massive hepatomegaly and abdominal distention with minimal ascites 6 jaundice 7 sinus tachycardia, improving 8 acute lactic acidosis secondary to above, improving and the lactic acid level is down to 2 9 abdominal distention, mainly secondary to hepatomegaly 10 smoker 11 PTSD 12 leukocytosis, likely reactive, stable Plan Maintenance IV fluids with normal saline with 20 of potassium along with multivitamins and thiamine and folate at the rate of 150 mL Monitor lactate, normalized Cover the patient IV Zosyn regarding the E. coli dysemia Oral prednisone 40 mg regarding alcoholic hepatitis IV Protonix Subcu heparin for DVT prophylaxis Watch for any signs of delirium tremens, none for now Ativan as needed for any agitation or restlessness Monitor electrolytes GI consultation Nicotine patch Pro-calcitonin level is elevated consistent with sepsis of a bacterial source Allow full liquid diet Monitor the tachycardia and hemodynamics Keep in ICU for today Repeat chest x-ray from today We'll follow
--- NOTE | 2019-05-24 08:30 | XR ---
EXAMINATION TYPE: XR chest 1V portable DATE OF EXAM: 05/24/2019 COMPARISON: Prior chest x-ray and CT 05/23/2019 HISTORY: Pneumonia and shortness of breath TECHNIQUE: Single frontal view of the chest is obtained. FINDINGS: Lung volumes are low. There is retrocardiac density with obscured left hemidiaphragm. No e vident pneumothorax. There are overlying cardiac leads. Heart is obscured but likely stable. Hiatal h ernia not well seen. IMPRESSION: Left lower lobe atelectasis versus pneumonia and associated effusion, low lung volumes
[2019-05-24] MEDS: predniSONE 20 MG TAB PO SCH (08:32)
[2019-05-24] MEDS: NICOTINE 21MG/24HR PATCH TRANSDERM SCH (08:32)
[2019-05-24] MEDS: PANTOPRAZOLE 40 MG/10 ML VIAL IVP SCH (08:32)
[2019-05-24] MEDS: THIAMINE 100 MG TAB PO SCH ×2 (08:32→17:07)
[2019-05-24] MEDS: ENOXAPARIN 40 MG/0.4 ML SYRINGE SQ SCH (08:32)
[2019-05-24 11:44] LABS: Reticulocyte % 2.4 % (0.5-2.0)
[2019-05-24 12:07] LABS: Glucose,Whole Blood 173 mg/dL (75-99)
[2019-05-24] MEDS ORDERED: FUROSEMIDE 10 MG/ML 4 ML VIAL IV SCH (12:45)
[2019-05-24] MEDS: LACTULOSE 20 GM/30 ML CUP PO SCH (14:56)
--- NOTE | 2019-05-24 16:27 | P.PN ---
Subjective Patient is admitted for aspiration pneumonia left-sided and alcohol withdrawals. Patient is tachycardic start him on metoprolol. Patient will be continued on IV fluids and Lasix will discuss your patient doesn't have any ascites patient abdomen is tympanic may have mild ascites which is not clinically appreciable. I'll obtain abdominal x-ray patient did have good bowel movements yesterday. Patient is presently on Zosyn. Patient didn't receive any Ativan today. Constitutional: Patient feels tired fatigued Cardio vascular: denied any chest pain, palpitations Gastrointestinal denied any nausea vomiting Pulmonary: Denied any shortness of breath cough Neurologic denied any new focal deficits All inpatient medications were reviewed and appropriate changes in these medications as dictated in the interval history and assessment and plan. Objective - Vital Signs Vital signs: Vital Signs Temp 98.4 F 05/24/19 12:00 Pulse 120 H 05/24/19 15:00 Resp 28 H 05/24/19 15:00 BP 112/66 05/24/19 15:00 Pulse Ox 95 05/24/19 15:00 Intake & Output 05/23/19 05/24/19 05/24/19 18:59 06:59 18:59 Intake Total 4141.2 3075 1810 Output Total 400 433 247 Balance 3741.2 2642 1563 Weight 99.79 kg 103.8 kg Intake: IV 3130 1900 1450 0.9% NaCl with KCl 20 Meq 150 1800 1350 /l 1,000 ml @ 150 mls/hr IV .BY DURATION [facility] Rx#: [id number] Mvi, Adult No.4 with Vit 900 K 10 ml Thiamine 100 mg Folic Acid 1 mg In 0.9% NaCl with KCl 20 Meq/l 1, 000 ml @ 150 mls/hr IV . BY DURATION [facility] Rx#: [id number] Piperacillin-Tazobactam 3 100 100 .375 gm In Sodium Chloride 0.9% 100 ml @ 25 mls/hr IVPB Q8H [facility] Rx#: [id number] Sodium Chloride 0.9% 1, 80 000 ml @ 130 mls/hr IV . Q7H42M [facility] Rx#:[id number] Sodium Chloride 0.9% 1, 2000 000 ml @ 999 mls/hr IV . Q1H1M ONE Rx#:[id number] Intake, IV Titration 1011.2 1175 Amount 0.9% NaCl with KCl 20 Meq 1000 /l 1,000 ml @ 150 mls/hr IV .BY DURATION [facility] Rx#: [id number] Magnesium Sulfate-D5w Pmx 100 1 gm In Dextrose/Water 1 100ml.bag @ 100 mls/hr IVPB Q1H [facility] Rx#: [id number] Mvi, Adult No.4 with Vit 1011.2 K 10 ml Thiamine 100 mg Folic Acid 1 mg In 0.9% NaCl with KCl 20 Meq/l 1, 000 ml @ 150 mls/hr IV . BY DURATION [facility] Rx#: [id number] Piperacillin-Tazobactam 3 75 .375 gm In Sodium Chloride 0.9% 100 ml @ 25 mls/hr IVPB Q8H [facility] Rx#: [id number] Oral 360 Output: Urine 400 432 247 Stool 1 Other: Voiding Method Urinal Indwelling Catheter Indwelling Catheter # Voids 0 # Bowel Movements 1 1 - Exam PHYSICAL EXAMINATION: GENERAL: The patient is alert and oriented x3, not in any acute distress. Well developed, well nourished. HEENT: Pupils are round and equally reacting to light. EOMI. No scleral icterus. No conjunctival pallor. Normocephalic, atraumatic. No pharyngeal erythema. No thyromegaly. CARDIOVASCULAR: S1 and S2 present. No murmurs, rubs, or gallops. PULMONARY: Chest is clear to auscultation, no wheezing or crackles. ABDOMEN: Abdomen is distended and tympanic doesn't appear to have any fluid in that clinically no tenderness MUSCULOSKELETAL: No joint swelling or deformity. EXTREMITIES: No cyanosis, clubbing, or pedal edema. NEUROLOGICAL: Gross neurological examination did not reveal any focal deficits. SKIN: No rashes. - Labs CBC & Chem 7: 05/24/19 04:22 05/24/19 04:22 Labs: Abnormal Lab Results - Last 24 Hours (Table) 05/23/19 05/23/19 05/23/19 Range/Units 18:08 18:44 19:52 WBC 18.7 H (3.8-10.6) k/uL RBC 3.84 L (4.30-5.90) m/uL Hgb 12.9 L (13.0-17.5) gm/dL MCV 106.6 H (80.0-100.0) fL MCHC (31.0-37.0) g/dL RDW 16.8 H (11.5-15.5) % Plt Count (150-450) k/uL Neutrophils # (Manual) 17.30 H (1.3-7.7) k/uL Metamyelocytes # (Man) (0) k/uL Myelocytes # (Manual) (0) k/uL Nucleated RBCs 3 H (0-0) /100 WBC Macrocytosis Marked A Retic Count (0.5-2.0) % Sodium (137-145) mmol/L Carbon Dioxide (22-30) mmol/L Creatinine (0.66-1.25) mg/dL Glucose (74-99) mg/dL POC Glucose (mg/dL) 163 H (75-99) mg/dL Plasma Lactic Acid Willam 3.0 H* (0.7-2.0) mmol/L Calcium (8.4-10.2) mg/dL Phosphorus (2.5-4.5) mg/dL Total Bilirubin (0.2-1.3) mg/dL AST (17-59) U/L ALT (4-49) U/L Alkaline Phosphatase (38-126) U/L Ammonia (<30) umol/L Lactate Dehydrogenase (313-618) U/L Total Protein (6.3-8.2) g/dL Albumin (3.5-5.0) g/dL 05/23/19 05/24/19 05/24/19 Range/Units 23:53 04:22 04:22 WBC 15.8 H (3.8-10.6) k/uL RBC 3.78 L (4.30-5.90) m/uL Hgb 12.8 L (13.0-17.5) gm/dL MCV 109.7 H (80.0-100.0) fL MCHC 30.9 L (31.0-37.0) g/dL RDW 16.9 H (11.5-15.5) % Plt Count 132 L (150-450) k/uL Neutrophils # (Manual) 13.50 H (1.3-7.7) k/uL Metamyelocytes # (Man) 0.16 H (0) k/uL Myelocytes # (Manual) 0.16 H (0) k/uL Nucleated RBCs 7 H (0-0) /100 WBC Macrocytosis Marked A Retic Count (0.5-2.0) % Sodium 131 L (137-145) mmol/L Carbon Dioxide 20 L (22-30) mmol/L Creatinine 0.55 L (0.66-1.25) mg/dL Glucose 114 H (74-99) mg/dL POC Glucose (mg/dL) 133 H (75-99) mg/dL Plasma Lactic Acid Willam (0.7-2.0) mmol/L Calcium 7.1 L (8.4-10.2) mg/dL Phosphorus 1.4 L (2.5-4.5) mg/dL Total Bilirubin 7.4 H (0.2-1.3) mg/dL AST 425 H (17-59) U/L ALT 95 H (4-49) U/L Alkaline Phosphatase 197 H (38-126) U/L Ammonia (<30) umol/L Lactate Dehydrogenase 1380 H (313-618) U/L Total Protein 5.8 L (6.3-8.2) g/dL Albumin 2.6 L (3.5-5.0) g/dL 05/24/19 05/24/19 05/24/19 Range/Units 06:13 11:20 11:20 WBC (3.8-10.6) k/uL RBC (4.30-5.90) m/uL Hgb (13.0-17.5) gm/dL MCV (80.0-100.0) fL MCHC (31.0-37.0) g/dL RDW (11.5-15.5) % Plt Count (150-450) k/uL Neutrophils # (Manual) (1.3-7.7) k/uL Metamyelocytes # (Man) (0) k/uL Myelocytes # (Manual) (0) k/uL Nucleated RBCs (0-0) /100 WBC Macrocytosis Retic Count 2.4 H (0.5-2.0) % Sodium (137-145) mmol/L Carbon Dioxide (22-30) mmol/L Creatinine (0.66-1.25) mg/dL Glucose (74-99) mg/dL POC Glucose (mg/dL) 124 H (75-99) mg/dL Plasma Lactic Acid Willam (0.7-2.0) mmol/L Calcium (8.4-10.2) mg/dL Phosphorus (2.5-4.5) mg/dL Total Bilirubin (0.2-1.3) mg/dL AST (17-59) U/L ALT (4-49) U/L Alkaline Phosphatase (38-126) U/L Ammonia 51 H (<30) umol/L Lactate Dehydrogenase (313-618) U/L Total Protein (6.3-8.2) g/dL Albumin (3.5-5.0) g/dL 05/24/19 Range/Units 12:05 WBC (3.8-10.6) k/uL RBC (4.30-5.90) m/uL Hgb (13.0-17.5) gm/dL MCV (80.0-100.0) fL MCHC (31.0-37.0) g/dL RDW (11.5-15.5) % Plt Count (150-450) k/uL Neutrophils # (Manual) (1.3-7.7) k/uL Metamyelocytes # (Man) (0) k/uL Myelocytes # (Manual) (0) k/uL Nucleated RBCs (0-0) /100 WBC Macrocytosis Retic Count (0.5-2.0) % Sodium (137-145) mmol/L Carbon Dioxide (22-30) mmol/L Creatinine (0.66-1.25) mg/dL Glucose (74-99) mg/dL POC Glucose (mg/dL) 173 H (75-99) mg/dL Plasma Lactic Acid Willam (0.7-2.0) mmol/L Calcium (8.4-10.2) mg/dL Phosphorus (2.5-4.5) mg/dL Total Bilirubin (0.2-1.3) mg/dL AST (17-59) U/L ALT (4-49) U/L Alkaline Phosphatase (38-126) U/L Ammonia (<30) umol/L Lactate Dehydrogenase (313-618) U/L Total Protein (6.3-8.2) g/dL Albumin (3.5-5.0) g/dL Microbiology - Last 24 Hours (Table) 05/23/19 03:30 Blood Culture Gram Stain - Preliminary Blood Blood Culture - Preliminary Escherichia coli 05/23/19 03:22 Blood Culture - Preliminary Blood Assessment and Plan Plan: -Severe sepsis with lactic acidosis: Secondary to aspiration pneumonia. Patient is on Zosyn respiratory status improved and patient is requiring less oxygen patient is also on steroids which will be continued. Although patient has gram- negative bacteremia urine cultures were not available from admission we'll obtain a UA but may not be positive since he is already receiving antibiotics. Urine cultures will be obtained as well we will repeat blood cultures today and tomorrow intra-abdominal source cannot be completely ruled out. His abdomen is tympanic And abdominal x-ray. Needed we may and up needing an abdominal CAT scan. -Acute hypoxic respiratory failure secondary to left lower lobe pneumonia which is probably because of aspiration patient has left-sided pleural effusion as well. Patient is an above-mentioned antibiotics. -Sinus tachycardia can be related to intravascular depletion and also sepsis continue with IV antibiotics and he with IV fluids and Lasix was discontinued -Nicotine abuse history: Counseling was provided -Alcohol abuse: Counseling was provided -Alcohol withdrawals which is expected patient is on Ativan CIWA protocol Acute alcoholic hepatitis expected to improve with cessation of alcohol -Hypovolemic hyponatremia expected to improve and improved with IV fluids -Lactic acidosis secondary to sepsis is a pleasant auscultation Heart sinus tach cardia secondary to sepsis which is expected to improve with improvement of sepsis -PTSD: Patient will be resumed on his home medications -DVT prophylaxis with Lovenox, GI prophylaxis with Pepcid
[2019-05-24] MEDS: LORazepam 2 MG/ML INJ IV PRN ×2 (17:07→20:18)
[2019-05-24 17:14] LABS: Glucose,Whole Blood 170 mg/dL (75-99)
[2019-05-24] MEDS: SODIUM CHLORIDE 0.9% 1,000 ML IV SCH (17:19)
--- NOTE | 2019-05-24 17:20 | XR ---
EXAMINATION TYPE: XR abdomen 1V DATE OF EXAM: 05/24/2019 COMPARISON: NONE HISTORY: Dilated bowel loops TECHNIQUE: 2 views supine FINDINGS: There are multiple dilated small bowel loops with air. There is a relative lack of large laxmi wel gas. There is no evidence of pneumoperitoneum. IMPRESSION: Mildly dilated multiple loops of gas-filled small bowel could relate to mechanical small bowel obstruction or small bowel ileus.
[2019-05-24 17:41] LABS: Appearance,Urine Cloudy (Clear); Bacteria,Urine Occasional /hpf; Bilirubin,Urine 1+ (Negative); Blood,Urine Small (Negative); Color,Urine Yellow; Glucose,Urine (UA) Negative (Negative); Granular Casts,Urine 1 /lpf (0); Hyaline Casts,Urine 3 /lpf (0-2); Ketones,Urine Negative (Negative); Leukocyte Esterase,Urine Negative (Negative); Mucus,Urine Rare /hpf; Nitrite,Urine Negative (Negative); Protein,Urine Negative (Negative); RBC,Urine 3 /hpf (0-5); Specific Gravity,Urine 1.008 (1.001-1.035); Squamous Epithelial Cell,Urine <1 /hpf (0-4); Urobilinogen,Urine <2.0 mg/dL (<2.0); WBC,Urine 1 /hpf (0-5)
--- NOTE | 2019-05-24 19:35 | P.CONS ---
History of Present Illness - Reason for Consult Consult date: 05/24/19 Elevated liver enzymes Requesting physician: Augustine Becerra - Chief Complaint Shortness of breath - History of Present Illness 39-year-old male with a medical history significant for alcoholism, PTSD with reports of elevated liver enzymes in the past who presented to the hospital with complaints of shortness of breath and weakness. Currently the patient is seen in the intensive care unit where he is receiving broad-spectrum antibiotics for a left lower lobe pneumonia with gram-negative bacteremia. The patient reports heavy alcoholism over the past few years which has been increasingly worse over the past few months. During this time the patient has been drinking approximately 1/5 of liquor daily. He reports being told that liver enzymes have been elevated in the past but is unsure of underlying liver disease. He reports increasing abdominal distention and the feeling of an uncomfortable abdomen secondary to the distention with associated difficulty breathing. He does report loose bowel movements occurring daily but denies any blood in stool or black tarry stools. The patient did have ultrasound performed significant for hepatomegaly and ascites. Liver enzymes significant for a total bilirubin 7.4, alkaline phosphatase 197, AST 425 and ALT 95. WBC 15.8, hemoglobin 12.8, platelet count 132,000, MCV 109, INR 1.1. Review of Systems REVIEW OF SYSTEMS: CONSTITUTIONAL: Denies any fevers, chills, weight change but does report fatigue. CARDIOVASCULAR: Denies any chest pain, palpitations high or low blood pressures RESPIRATORY: Denies any hemoptysis or cough but does report shortness of breath. GENITOURINARY: No dysuria but does report hematuria currently with Epps catheter in place. MUSCULOSKELETAL: No focal weakness reported. SKIN: Denies any new rashes or lesions are patient does have diffuse upper and lower extremity skin changes which she reports her chronic, jaundice or pallor. PSYCHIATRIC: No known history of PTSD and alcohol abuse. NEUROLOGY: Denies headache, denies any new focal deficits. EARS/NOSE/THROAT: No recent hearing change, congestion, nasal discharge or sore throat. EYES: No pain in eyes, discharge or change in vision. GASTROINTESTINAL: As per HPI. Past Medical History Past Medical History: GERD/Reflux, Hyperlipidemia, Liver Disease Additional Past Medical History / Comment(s): Alcoholism, past withdrawals with tremors/diaphoresis, elevated LFTs, occasional upper back pain. The patient also has a and he has history of PTSD History of Any Multi-Drug Resistant Organisms: None Reported Past Surgical History: No Surgical Hx Reported Additional Past Surgical History / Comment(s): Pt states he has never had surgery Past Anesthesia/Blood Transfusion Reactions: Unable to Obtain Additional Past Anesthesia/Blood Transfusion Reaction / Comm: Pt states he has never had surgery. Smoking Status: Current every day smoker - Past Family History Mother Family Medical History: Cancer Additional Family Medical History / Comment(s): Mother has colon cancer. Father History Unknown: Yes Additional Family Medical History / Comment(s): All pt knows about his father is that he is . Medications and Allergies Home Medications Medication Instructions Recorded Confirmed Type No Known Home Medications 05/23/19 05/23/19 History Allergies Allergy/AdvReac Type Severity Reaction Status Date / Time ibuprofen [From Motrin] Allergy Swelling Verified 05/23/19 09:38 Physical Exam Vitals: Vital Signs Temp Pulse Resp BP Pulse Ox 05/24/19 11:00 123 H 16 122/82 93 L 05/24/19 10:00 125 H 20 118/77 94 L 05/24/19 09:00 121 H 20 120/79 93 L 05/24/19 08:00 98.1 F 124 H 22 109/69 94 L 05/24/19 07:00 123 H 21 109/69 94 L 05/24/19 06:00 126 H 24 111/80 94 L 05/24/19 05:00 123 H 21 126/82 94 L 05/24/19 04:00 98.5 F 123 H 20 137/74 93 L 05/24/19 03:00 123 H 19 127/70 95 05/24/19 02:00 118 H 17 127/70 95 05/24/19 01:00 125 H 18 125/78 95 05/24/19 00:00 97.8 F 125 H 20 125/78 94 L 05/23/19 23:47 20 05/23/19 23:00 125 H 20 122/88 95 05/23/19 22:00 120 H 28 H 112/83 95 05/23/19 21:00 124 H 22 132/92 96 05/23/19 20:54 96 05/23/19 20:30 126 H 30 H 132/92 94 L 01/27/20 20:00 97.9 F 128 H 22 142/101 95 05/23/19 19:30 130 H 22 125/80 05/23/19 19:00 140 H 29 H 129/108 91 L 05/23/19 18:30 135 H 22 109/99 05/23/19 18:00 135 H 27 H 109/89 05/23/19 17:30 129 H 14 120/93 05/23/19 17:00 131 H 24 128/73 95 05/23/19 16:30 134 H 24 106/80 94 L 05/23/19 16:00 99.9 F H 135 H 25 H 104/78 94 L 05/23/19 15:00 135 H 24 107/73 94 L 05/23/19 14:30 138 H 21 107/73 05/23/19 14:00 138 H 22 107/86 94 L 05/23/19 13:30 137 H 27 H 120/79 93 L 05/23/19 13:00 141 H 29 H 121/80 94 L 05/23/19 12:30 140 H 30 H 128/78 Intake and Output 05/23/19 05/24/19 05/24/19 22:59 06:59 14:59 Intake Total 2421.2 1325 1210 Output Total 186 247 127 Balance 2235.2 1078 1083 Intake: IV 1260 1300 850 0.9% NaCl with KCl 20 Meq 750 1200 750 /l 1,000 ml @ 150 mls/hr IV .BY DURATION [facility] Rx#: [id number] Mvi, Adult No.4 with Vit 450 K 10 ml Thiamine 100 mg Folic Acid 1 mg In 0.9% NaCl with KCl 20 Meq/l 1, 000 ml @ 150 mls/hr IV . BY DURATION [facility] Rx#: [id number] Piperacillin-Tazobactam 3 100 100 .375 gm In Sodium Chloride 0.9% 100 ml @ 25 mls/hr IVPB Q8H [facility] Rx#: [id number] Sodium Chloride 0.9% 1, 60 000 ml @ 130 mls/hr IV . Q7H42M [facility] Rx#:[id number] Intake, IV Titration 1161.2 25 Amount Magnesium Sulfate-D5w Pmx 100 1 gm In Dextrose/Water 1 100ml.bag @ 100 mls/hr IVPB Q1H [facility] Rx#: [id number] Mvi, Adult No.4 with Vit 1011.2 K 10 ml Thiamine 100 mg Folic Acid 1 mg In 0.9% NaCl with KCl 20 Meq/l 1, 000 ml @ 150 mls/hr IV . BY DURATION [facility] Rx#: [id number] Piperacillin-Tazobactam 3 50 25 .375 gm In Sodium Chloride 0.9% 100 ml @ 25 mls/hr IVPB Q8H [facility] Rx#: [id number] Oral 360 Output: Urine 185 247 127 Stool 1 Other: Voiding Method Urinal Indwelling Catheter Indwelling Catheter # Bowel Movements 1 1 Weight 103.8 kg On physical examination, patient appears comfortable in no apparent distress. HEAD: Normocephalic, atraumatic. EYES: Scleral icterus. No conjunctival injection. MOUTH: No lesions, tongue midline. NECK: Trachea midline, no gross abnormalities. CHEST: Decreased air entry in all lung hernandez. HEART: Regular rate and rhythm. ABDOMEN: Soft, obese and distended. Bowel sounds are positive. No organomegaly. No guarding or rigidity. EXTREMITIES: No pedal edema. SKIN: Jaundice. NEUROLOGIC: Alert and oriented x3, tremulousness noted. No asterixis. No focal deficits. Results CBC & Chem 7: 05/24/19 04:22 05/24/19 04:22 Labs: Abnormal Lab Results - Last 24 Hours (Table) 05/23/19 05/23/19 05/23/19 Range/Units 11:31 12:29 15:35 WBC (3.8-10.6) k/uL RBC (4.30-5.90) m/uL Hgb (13.0-17.5) gm/dL MCV (80.0-100.0) fL MCHC (31.0-37.0) g/dL RDW (11.5-15.5) % Plt Count (150-450) k/uL Neutrophils # (Manual) (1.3-7.7) k/uL Metamyelocytes # (Man) (0) k/uL Myelocytes # (Manual) (0) k/uL Nucleated RBCs (0-0) /100 WBC Macrocytosis Retic Count (0.5-2.0) % Sodium (137-145) mmol/L Carbon Dioxide (22-30) mmol/L Creatinine (0.66-1.25) mg/dL Glucose (74-99) mg/dL POC Glucose (mg/dL) (75-99) mg/dL Plasma Lactic Acid Willam 5.2 H* (0.7-2.0) mmol/L Calcium (8.4-10.2) mg/dL Phosphorus (2.5-4.5) mg/dL Total Bilirubin (0.2-1.3) mg/dL AST (17-59) U/L ALT (4-49) U/L Alkaline Phosphatase (38-126) U/L Ammonia (<30) umol/L Lactate Dehydrogenase (313-618) U/L Total Protein (6.3-8.2) g/dL Albumin (3.5-5.0) g/dL Procalcitonin 3.85 H (0.02-0.09) ng/mL Ur Specific [place] >1.050 H (1.001-1.035) Urine Protein 1+ H (Negative) Urine Ketones Trace H (Negative) Urine Bilirubin 2+ H (Negative) Urine RBC 12 H (0-5) /hpf Urine Mucus Rare H (None) /hpf 05/23/19 05/23/19 05/23/19 Range/Units 18:08 18:44 19:52 WBC 18.7 H (3.8-10.6) k/uL RBC 3.84 L (4.30-5.90) m/uL Hgb 12.9 L (13.0-17.5) gm/dL MCV 106.6 H (80.0-100.0) fL MCHC (31.0-37.0) g/dL RDW 16.8 H (11.5-15.5) % Plt Count (150-450) k/uL Neutrophils # (Manual) 17.30 H (1.3-7.7) k/uL Metamyelocytes # (Man) (0) k/uL Myelocytes # (Manual) (0) k/uL Nucleated RBCs 3 H (0-0) /100 WBC Macrocytosis Marked A Retic Count (0.5-2.0) % Sodium (137-145) mmol/L Carbon Dioxide (22-30) mmol/L Creatinine (0.66-1.25) mg/dL Glucose (74-99) mg/dL POC Glucose (mg/dL) 163 H (75-99) mg/dL Plasma Lactic Acid Willam 3.0 H* (0.7-2.0) mmol/L Calcium (8.4-10.2) mg/dL Phosphorus (2.5-4.5) mg/dL Total Bilirubin (0.2-1.3) mg/dL AST (17-59) U/L ALT (4-49) U/L Alkaline Phosphatase (38-126) U/L Ammonia (<30) umol/L Lactate Dehydrogenase (313-618) U/L Total Protein (6.3-8.2) g/dL Albumin (3.5-5.0) g/dL Procalcitonin (0.02-0.09) ng/mL Ur Specific [place] (1.001-1.035) Urine Protein (Negative) Urine Ketones (Negative) Urine Bilirubin (Negative) Urine RBC (0-5) /hpf Urine Mucus (None) /hpf 05/23/19 05/24/19 05/24/19 Range/Units 23:53 04:22 04:22 WBC 15.8 H (3.8-10.6) k/uL RBC 3.78 L (4.30-5.90) m/uL Hgb 12.8 L (13.0-17.5) gm/dL MCV 109.7 H (80.0-100.0) fL MCHC 30.9 L (31.0-37.0) g/dL RDW 16.9 H (11.5-15.5) % Plt Count 132 L (150-450) k/uL Neutrophils # (Manual) 13.50 H (1.3-7.7) k/uL Metamyelocytes # (Man) 0.16 H (0) k/uL Myelocytes # (Manual) 0.16 H (0) k/uL Nucleated RBCs 7 H (0-0) /100 WBC Macrocytosis Marked A Retic Count (0.5-2.0) % Sodium 131 L (137-145) mmol/L Carbon Dioxide 20 L (22-30) mmol/L Creatinine 0.55 L (0.66-1.25) mg/dL Glucose 114 H (74-99) mg/dL POC Glucose (mg/dL) 133 H (75-99) mg/dL Plasma Lactic Acid [place] (0.7-2.0) mmol/L Calcium 7.1 L (8.4-10.2) mg/dL Phosphorus 1.4 L (2.5-4.5) mg/dL Total Bilirubin 7.4 H (0.2-1.3) mg/dL AST 425 H (17-59) U/L ALT 95 H (4-49) U/L Alkaline Phosphatase 197 H (38-126) U/L Ammonia (<30) umol/L Lactate Dehydrogenase 1380 H (313-618) U/L Total Protein 5.8 L (6.3-8.2) g/dL Albumin 2.6 L (3.5-5.0) g/dL Procalcitonin (0.02-0.09) ng/mL Ur Specific [place] (1.001-1.035) Urine Protein (Negative) Urine Ketones (Negative) Urine Bilirubin (Negative) Urine RBC (0-5) /hpf Urine Mucus (None) /hpf 05/24/19 05/24/19 05/24/19 Range/Units 06:13 11:20 11:20 WBC (3.8-10.6) k/uL RBC (4.30-5.90) m/uL Hgb (13.0-17.5) gm/dL MCV (80.0-100.0) fL MCHC (31.0-37.0) g/dL RDW (11.5-15.5) % Plt Count (150-450) k/uL Neutrophils # (Manual) (1.3-7.7) k/uL Metamyelocytes # (Man) (0) k/uL Myelocytes # (Manual) (0) k/uL Nucleated RBCs (0-0) /100 WBC Macrocytosis Retic Count 2.4 H (0.5-2.0) % Sodium (137-145) mmol/L Carbon Dioxide (22-30) mmol/L Creatinine (0.66-1.25) mg/dL Glucose (74-99) mg/dL POC Glucose (mg/dL) 124 H (75-99) mg/dL Plasma Lactic Acid Willam (0.7-2.0) mmol/L Calcium (8.4-10.2) mg/dL Phosphorus (2.5-4.5) mg/dL Total Bilirubin (0.2-1.3) mg/dL AST (17-59) U/L ALT (4-49) U/L Alkaline Phosphatase (38-126) U/L Ammonia 51 H (<30) umol/L Lactate Dehydrogenase (313-618) U/L Total Protein (6.3-8.2) g/dL Albumin (3.5-5.0) g/dL Procalcitonin (0.02-0.09) ng/mL Ur Specific [place] (1.001-1.035) Urine Protein (Negative) Urine Ketones (Negative) Urine Bilirubin (Negative) Urine RBC (0-5) /hpf Urine Mucus (None) /hpf Microbiology - Last 24 Hours (Table) 05/23/19 03:30 Blood Culture Gram Stain - Preliminary Blood Blood Culture - Preliminary Escherichia coli 05/23/19 03:22 Blood Culture - Preliminary Blood US - abdomen: report reviewed (Hepatomegaly and ascites with no gallstones or dilated ducts noted on ultrasound abdomen.) Assessment and Plan (1) Acute alcoholic hepatitis Narrative/Plan: 31-year-old male with a medical history significant for PTSD and alcohol abuse who presented to the hospital with increasing shortness of breath and weakness. Currently being treated for left lower lobe pneumonia and possible aspiration pneumonia patient has elevation in liver enzymes suggestive of acute alcoholic hepatitis. No biliary pathology noted on computed tomography scan or ultrasound of the abdomen with hepatomegaly and ascites noted. Currently patient is receiving supportive care and broad-spectrum antibiotic therapy in the ICU. Current Visit: Yes Status: Acute Code(s): K70.10 - ALCOHOLIC HEPATITIS WITHOUT ASCITES SNOMED Code(s): 5910786 (2) Elevated liver enzymes Current Visit: Yes Status: Acute Code(s): R74.8 - ABNORMAL LEVELS OF OTHER SERUM ENZYMES SNOMED Code(s): 627558809 (3) Alcohol abuse Current Visit: Yes Status: Acute Code(s): F10.10 - ALCOHOL ABUSE, UNCOMPLICATED SNOMED Code(s): 41924664 (4) Ascites Current Visit: Yes Status: Acute Code(s): R18.8 - OTHER ASCITES SNOMED Code(s): 755746966 Plan: Supportive care Okay for diet as tolerated Paracentesis ordered, fluid studies if patient has enough fluid for paracentesis also been ordered We'll start diuretic therapy with Lasix and Aldactone Continue to monitor CBC, CMP, INR Continue to monitor for signs or symptoms of alcohol withdrawal Continue treatment of suspected left lower lobe pneumonia Alcohol abstinence Lactulose daily initiated Thank you for allowing us to participate in the care of the patient we will continue to follow
[2019-05-24 19:40] LABS: Protein, Total 4.8 g/dL (6.2-8.2)
[2019-05-24 19:52] LABS: Alpha Fetoprotein, Tumor Mkr <2.5 ng/mL (0.0-7.9)
[2019-05-24] MEDS: METOPROLOL TARTRATE 25 MG TAB PO SCH (20:19)
[2019-05-24] MEDS: FUROSEMIDE 10 MG/ML 4 ML VIAL IV SCH (21:59)
[2019-05-25 00:05] LABS: Glucose,Whole Blood 136 mg/dL (75-99)
[2019-05-25] MEDS: INSULIN ASPART (NovoLOG) 100 UNIT/ML VIAL SQ SCH ×5 (00:08→21:13)
[2019-05-25] MEDS: SODIUM CHLORIDE 0.9% 1,000 ML IV SCH ×3 (00:09→20:03)
[2019-05-25 01:03] LABS: Hepatitis A Antibody IgM Non-Reactive (Non-Reactive); Hepatitis B Core IgM Non-Reactive (Non-Reactive); Hepatitis B Surface Antigen Non-Reactive (Non-Reactive); Hepatitis C IgG Antibody Non-Reactive (Non-Reactive)
[2019-05-25 01:17] LABS: % Iron Saturation 68.31 (15.00-50.00); Ferritin 2601.9 ng/mL (22.0-322.0)
[2019-05-25] MEDS: LORazepam 2 MG/ML INJ IV PRN (03:02)
[2019-05-25] MEDS: PIPERACILLIN-TAZOBACTAM 3.375 GM in SODIUM CHLORIDE 0.9% 100 ML IVPB SCH ×2 (03:56→11:49)
[2019-05-25 05:33] LABS: Anisocytosis Slight; HCT 34.4 % (39.0-53.0); MCH 34.5 pg (25.0-35.0); MCHC 31.8 g/dL (31.0-37.0); MCV 108.2 fL (80.0-100.0); Macrocytosis Marked; Mean Platelet Volume 10.5; Platelet Count 148 k/uL (150-450); RBC 3.18 m/uL (4.30-5.90); RDW 17.8 % (11.5-15.5)
[2019-05-25 05:40] LABS: Glucose,Whole Blood 122 mg/dL (75-99)
[2019-05-25 05:46] LABS: ALT 88 U/L (4-49); AST 364 U/L (17-59); African American GFR (CKD) >90 (>60 ml/min/1.73 sqM); Albumin 2.3 g/dL (3.5-5.0); Alkaline Phosphatase 160 U/L (38-126); Anion Gap 6 mmol/L; Blood Urea Nitrogen 12 mg/dL (9-20); Calcium 6.9 mg/dL (8.4-10.2); Carbon Dioxide 23 mmol/L (22-30); Chloride 104 mmol/L (98-107); Glucose 102 mg/dL (74-99); Non-African American GFR(CKD) >90 (>60 ml/min/1.73 sqM); Potassium 3.9 mmol/L (3.5-5.1); Sodium 133 mmol/L (137-145); Total Bilirubin 7.1 mg/dL (0.2-1.3); Total Protein 5.3 g/dL (6.3-8.2)
[2019-05-25 06:03] LABS: Band Neutrophils % 1 %; Eosinophils # (M) 0.15 k/uL (0-0.7); Myelocytes # (M) 0.15 k/uL (0); Myelocytes % 1 %; Neutrophils % (M) 81 %; Nucleated Red Blood Cells 3 /100 WBC (0-0); Total Cells Counted 200
[2019-05-25 06:04] LABS: Lymphocytes # (M) 1.74 k/uL (1.0-4.8); Monocytes # (M) 0.73 k/uL (0-1.0); Polychromasia Present; Target Cells Present; WBC 14.5 k/uL (3.8-10.6)
[2019-05-25] MEDS ORDERED: Potassium Replacement Protocol 1 EACH MISC MISCELLANE PRN (06:41)
[2019-05-25] MEDS ORDERED: POTASSIUM CHLORIDE ER 20 MEQ TAB.ER PO SCH (07:00)
[2019-05-25] MEDS: THIAMINE 100 MG TAB PO SCH ×2 (07:06→17:47)
[2019-05-25] MEDS: FUROSEMIDE 10 MG/ML 4 ML VIAL IV SCH (08:26)
[2019-05-25] MEDS: LACTULOSE 20 GM/30 ML CUP PO SCH (08:26)
[2019-05-25] MEDS: METOPROLOL TARTRATE 25 MG TAB PO SCH ×2 (08:26→21:13)
[2019-05-25] MEDS: predniSONE 20 MG TAB PO SCH (08:26)
[2019-05-25] MEDS: ENOXAPARIN 40 MG/0.4 ML SYRINGE SQ SCH (08:27)
[2019-05-25] MEDS: NICOTINE 21MG/24HR PATCH TRANSDERM SCH (08:27)
[2019-05-25] MEDS ORDERED: SPIRONOLACTONE 25 MG TAB PO SCH (09:00)
[2019-05-25] MEDS ORDERED: PANTOPRAZOLE 40 MG TABLET PO SCH (09:00)
--- NOTE | 2019-05-25 09:31 | P.PN ---
Subjective Progress Note Date: 05/25/19 On 05/25/1999 milligrams seeing the patient for a follow-up. He is still lethargic. He is a 39-year-old alcoholic male patient with known history of alcoholism and chronic liver disease. He presented to us with gram-negative sepsis and the blood culture came back positive for E. coli. He does have a left lower lobe pneumonia. Urine was negative. Abdomen was distended. CAT scan of the abdomen showed hepatomegaly. Minimal ascites if any. Subsequent films showed abdominal distention possibly component of small bowel ileus. Nevertheless, the patient is doing relatively well. He has been excellent resuscitated IV fluids. His tachycardia is improved and currently his heart rate is in lower , sinus rhythm. Is producing good urine output. He was started on lactulose for possibility of hepatic encephalopathy knowing that his ammonia level was elevated at 50. He is stooling for now. No worsening in his abdominal distention. On examination is slightly tympanic. His lactic acid levels improved. He remains on IV Zosyn for now. He was also showing improvement in his liver function tests. He did have a component of alcoholic hepatitis. His AST and ALP are both improving and the patient remains on oral prednisone. No signs of any delirium tremens. He got little bit anxious ye sterday he got up out of bed and he had a fall without causing any significant injuries. No open wounds or sores or cellulitis. No emesis. No chest pain. No shortness of breath. Chest x-ray from today still showing a left lower lobe consolidation/effusion. His IV fluids running at 100 mL an hour of normal saline. He is also on 20 mg of potassium and thiamine and folate. Antibiotic coverage is IV Zosyn for now. Objective - Vital Signs Vital signs: Vital Signs Temp 99.6 F 05/25/19 08:00 Pulse 109 H 05/25/19 09:00 Resp 27 H 05/25/19 09:00 BP 124/76 05/25/19 09:00 Pulse Ox 92 L 05/25/19 09:00 Intake & Output 05/24/19 05/25/19 05/25/19 18:59 06:59 18:59 Intake Total 2570 1275 415 Output Total 1498 1106 417 Balance 1072 169 -2 Weight 102.5 kg Intake: IV 1850 1175 325 0.9% NaCl with KCl 20 Meq 1650 100 /l 1,000 ml @ 150 mls/hr IV .BY DURATION [facility] Rx#: [id number] Piperacillin-Tazobactam 3 200 75 25 .375 gm In Sodium Chloride 0.9% 100 ml @ 25 mls/hr IVPB Q8H [facility] Rx#: [id number] Sodium Chloride 0.9% @ 1000 300 100mls/hr Oral 720 90 Tube Feeding 100 Output: Urine 1497 1105 415 Stool 1 1 2 Other: Voiding Method Indwelling Catheter Indwelling Catheter Indwelling Catheter # Voids 0 # Bowel Movements 1 1 - Exam Awake and alert and on and active distress following instructions and following commands and answering questions appropriately. He is jaundiced. Head exam was generally normal. There was no scleral icterus or corneal arcus. Mucous membranes were moist. Neck was supple and without jugular venous distension, thyromegaly, or carotid bruits. Carotids were easily palpable bilaterally. There was no adenopathy. Mucous membranes are extremely dry and the patient has no oropharyngeal candidiasis Lungs sounds are diminished in lung bases more so on the left along with some dullness to percussion Heart sounds are tachycardic, Cardiac exam revealed the PMI to be normally situated and sized. The rhythm was regular and no extrasystoles were noted during several minutes of auscultation. The first and second heart sounds were normal and physiologic splitting of the second heart sound was noted. There were no murmurs, rubs, clicks, or gallops. Abdomen is distended. Soft. There is hepatomegaly. Spleen cannot be palpated. No fluid wave or shifting dullness. No direct tenderness rebound tensile guarding. The abdomen is slightly tympanic Examination of the extremities revealed easily palpable radial, femoral and pedal pulses. There was no cyanosis, clubbing or edema. Skin shows significant amount of psoriatic plaques throughout the abdomen and upper and lower extremities bilaterally. Neurologically awake and alert and there is no focal neurological deficits. He shouldn't is somnolent and lethargic. He is arousable and follows commands and answers questions appropriately. No tremors. No hallucinations. - Labs CBC & Chem 7: 05/25/19 05:10 05/25/19 05:10 Labs: Abnormal Lab Results - Last 24 Hours (Table) 05/24/19 05/24/19 05/24/19 Range/Units 11:20 11:20 11:20 WBC (3.8-10.6) k/uL RBC (4.30-5.90) m/uL Hgb (13.0-17.5) gm/dL Hct (39.0-53.0) % MCV (80.0-100.0) fL RDW (11.5-15.5) % Plt Count (150-450) k/uL Neutrophils # (Manual) (1.3-7.7) k/uL Myelocytes # (Manual) (0) k/uL Nucleated RBCs (0-0) /100 WBC Macrocytosis Retic Count 2.4 H (0.5-2.0) % Sodium (137-145) mmol/L Creatinine (0.66-1.25) mg/dL Glucose (74-99) mg/dL POC Glucose (mg/dL) (75-99) mg/dL Calcium (8.4-10.2) mg/dL TIBC 142 L (228-460) ug/dL % Saturation 68.31 H (15.00-50.00) Ferritin 2601.9 H (22.0-322.0) ng/mL Total Bilirubin (0.2-1.3) mg/dL AST (17-59) U/L ALT (4-49) U/L Alkaline Phosphatase (38-126) U/L Ammonia 51 H (<30) umol/L Total Protein (6.3-8.2) g/dL Total Protein (PEP) (6.2-8.2) g/dL Albumin (3.5-5.0) g/dL Urine Blood (Negative) Urine Bilirubin (Negative) Urine Bacteria (None) /hpf Hyaline Casts (0-2) /lpf Urine Mucus (None) /hpf 05/24/19 05/24/19 05/24/19 Range/Units 11:20 12:05 17:12 WBC (3.8-10.6) k/uL RBC (4.30-5.90) m/uL Hgb (13.0-17.5) gm/dL Hct (39.0-53.0) % MCV (80.0-100.0) fL RDW (11.5-15.5) % Plt Count (150-450) k/uL Neutrophils # (Manual) (1.3-7.7) k/uL Myelocytes # (Manual) (0) k/uL Nucleated RBCs (0-0) /100 WBC Macrocytosis Retic Count (0.5-2.0) % Sodium (137-145) mmol/L Creatinine (0.66-1.25) mg/dL Glucose (74-99) mg/dL POC Glucose (mg/dL) 173 H 170 H (75-99) mg/dL Calcium (8.4-10.2) mg/dL TIBC (228-460) ug/dL % Saturation (15.00-50.00) Ferritin (22.0-322.0) ng/mL Total Bilirubin (0.2-1.3) mg/dL AST (17-59) U/L ALT (4-49) U/L Alkaline Phosphatase (38-126) U/L Ammonia (<30) umol/L Total Protein (6.3-8.2) g/dL Total Protein (PEP) 4.8 L (6.2-8.2) g/dL Albumin (3.5-5.0) g/dL Urine Blood (Negative) Urine Bilirubin (Negative) Urine Bacteria (None) /hpf Hyaline Casts (0-2) /lpf Urine Mucus (None) /hpf 05/24/19 05/25/19 05/25/19 Range/Units 17:21 00:04 05:10 WBC 14.5 H (3.8-10.6) k/uL RBC 3.18 L (4.30-5.90) m/uL Hgb 11.0 L (13.0-17.5) gm/dL Hct 34.4 L (39.0-53.0) % MCV 108.2 H (80.0-100.0) fL RDW 17.8 H (11.5-15.5) % Plt Count 148 L (150-450) k/uL Neutrophils # (Manual) 11.80 H (1.3-7.7) k/uL Myelocytes # (Manual) 0.15 H (0) k/uL Nucleated RBCs 3 H (0-0) /100 WBC Macrocytosis Marked A Retic Count (0.5-2.0) % Sodium (137-145) mmol/L Creatinine (0.66-1.25) mg/dL Glucose (74-99) mg/dL POC Glucose (mg/dL) 136 H (75-99) mg/dL Calcium (8.4-10.2) mg/dL TIBC (228-460) ug/dL % Saturation (15.00-50.00) Ferritin (22.0-322.0) ng/mL Total Bilirubin (0.2-1.3) mg/dL AST (17-59) U/L ALT (4-49) U/L Alkaline Phosphatase (38-126) U/L Ammonia (<30) umol/L Total Protein (6.3-8.2) g/dL Total Protein (PEP) (6.2-8.2) g/dL Albumin (3.5-5.0) g/dL Urine Blood Small H (Negative) Urine Bilirubin 1+ H (Negative) Urine Bacteria Occasional H (None) /hpf Hyaline Casts 3 H (0-2) /lpf Urine Mucus Rare H (None) /hpf 05/25/19 05/25/19 05/25/19 Range/Units 05:10 05:39 08:12 WBC (3.8-10.6) k/uL RBC (4.30-5.90) m/uL Hgb (13.0-17.5) gm/dL Hct (39.0-53.0) % MCV (80.0-100.0) fL RDW (11.5-15.5) % Plt Count (150-450) k/uL Neutrophils # (Manual) (1.3-7.7) k/uL Myelocytes # (Manual) (0) k/uL Nucleated RBCs (0-0) /100 WBC Macrocytosis Retic Count (0.5-2.0) % Sodium 133 L (137-145) mmol/L Creatinine 0.51 L (0.66-1.25) mg/dL Glucose 102 H (74-99) mg/dL POC Glucose (mg/dL) 122 H (75-99) mg/dL Calcium 6.9 L (8.4-10.2) mg/dL TIBC (228-460) ug/dL % Saturation (15.00-50.00) Ferritin (22.0-322.0) ng/mL Total Bilirubin 7.1 H (0.2-1.3) mg/dL AST 364 H (17-59) U/L ALT 88 H (4-49) U/L Alkaline Phosphatase 160 H (38-126) U/L Ammonia 45 H (<30) umol/L Total Protein 5.3 L (6.3-8.2) g/dL Total Protein (PEP) (6.2-8.2) g/dL Albumin 2.3 L (3.5-5.0) g/dL Urine Blood (Negative) Urine Bilirubin (Negative) Urine Bacteria (None) /hpf Hyaline Casts (0-2) /lpf Urine Mucus (None) /hpf Microbiology - Last 24 Hours (Table) 05/23/19 03:30 Blood Culture Gram Stain - Final Blood Blood Culture - Final Escherichia coli 05/23/19 12:29 Urine Culture - Preliminary Urine,Voided Assessment and Plan Plan: 1 acute hypoxic respiratory failure with suspected left lower lobe pneumonia, consider aspiration in the setting of a chronic alcoholism and alcohol drinking. The patient has a limited consolidation of the left lobe base along with small left-sided pleural effusion. This x-ray from today on 05/25/2019 is still showing a left lower lobe consolidation/effusion. 2 acute E. coli sepsis and the exact source is not clear. Consider aspiration pneumonia. Consider intra-abdominal source with translocation of bacteria. Gallbladder shows no evidence of any cholecystitis. No significant ascites. Spontaneous bacterial peritonitis is felt to be less likely. Urinary sources cannot be completely excluded. The blood cultures will be repeated. Results are still pending for now. Meanwhile, the patient's neck against also improved. Tachycardia is improved. His blood resuscitated. He is not requiring any pressors. His white cell count is currently down to 14.5. 3 alcoholism with acute alcohol intoxication, improved 4 acute alcoholic hepatitis, LFTs are still abnormal, but improving 5 massive hepatomegaly and abdominal distention with minimal ascites 6 jaundice 7 sinus tachycardia, improving 8 acute lactic acidosis secondary to above, improving and the lactic acid level is down to 2 9 abdominal distention, mainly secondary to hepatomegaly, and there is also a component of ileus/small bowel distention/ileus 10 smoker 11 PTSD 12 leukocytosis, likely reactive, improving 13 motor weakness and unsteady gait 14 abdominal distention mainly due to hepatomegaly and addition to a component of small bowel ileus Plan Maintenance IV fluids with normal saline with 20 of potassium along with multivitamins and thiamine and folate at the rate of 100 mL Lasix will be discontinued Monitor lactate, normalized Cover the patient IV Zosyn regarding the E. coli sepsis Oral prednisone 40 mg regarding alcoholic hepatitis IV Protonix Subcu heparin for DVT prophylaxis Watch for any signs of delirium tremens, none for now Ativan as needed for any agitation or restlessness Monitor electrolytes GI consultation is appreciated Nicotine patch Pro-calcitonin level is elevated consistent with sepsis of a bacterial source Allow full liquid diet Monitor the tachycardia and hemodynamics, and the sevens tachycardia is also improving Lactulose 10 mL on a daily basis Keep in ICU for today chest x-ray from today was noted and there is still a left lower lobe consolidation Advance diet to soft We'll follow
[2019-05-25 11:27] LABS: Liver/Kidney Microsome Antibod 1.3 UNITS (<=20)
[2019-05-25 11:55] LABS: Glucose,Whole Blood 129 mg/dL (75-99)
[2019-05-25 13:50] LABS: Albumin 2.46 g/dL (3.80-4.90); Gamma Globulin 1.02 g/dL (0.70-1.50)
--- NOTE | 2019-05-25 14:03 | P.PN ---
Subjective Patient is admitted for aspiration pneumonia left-sided and alcohol withdrawals. Patient is tachycardic start him on metoprolol. Patient will be continued on IV fluids and Lasix will discuss your patient doesn't have any ascites patient abdomen is tympanic may have mild ascites which is not clinically appreciable. I'll obtain abdominal x-ray patient did have good bowel movements yesterday. Patient is presently on Zosyn. Patient didn't receive any Ativan today. 05/25/2019 Patient's blood cultures are positive for E. coli which is pansensitive patient will be switched to Rocephin 2 g daily. His saturations are bit was I'll obtain a chest x-ray to rule out any pulmonary edema. Patient probably has gram- negative pneumonia. Patient does have a significant ascites because of which I'm not starting him on any diuretics diuretic will continue to hold the diuretic therapy. Patient is to have elevated bilirubin although cannot completely exclude cirrhosis, patient most probably has severe alcoholic hepatitis Constitutional: Patient feels tired fatigued Cardio vascular: denied any chest pain, palpitations Gastrointestinal denied any nausea vomiting Pulmonary: Denied any shortness of breath cough Neurologic denied any new focal deficits All inpatient medications were reviewed and appropriate changes in these medications as dictated in the interval history and assessment and plan. Objective - Vital Signs Vital signs: Vital Signs Temp 98.5 F 05/25/19 12:00 Pulse 89 05/25/19 13:00 Resp 11 L 05/25/19 13:00 BP 104/69 05/25/19 13:00 Pulse Ox 91 L 05/25/19 13:00 Intake & Output 05/24/19 05/25/19 05/25/19 18:59 06:59 18:59 Intake Total 3581.2 1275 1155 Output Total 1498 1106 1621 Balance 2083.2 169 -466 Weight 102.5 kg Intake: IV 1850 1175 825 0.9% NaCl with KCl 20 Meq 1650 100 /l 1,000 ml @ 150 mls/hr IV .BY DURATION [facility] Rx#: [id number] Piperacillin-Tazobactam 3 200 75 125 .375 gm In Sodium Chloride 0.9% 100 ml @ 25 mls/hr IVPB Q8H [facility] Rx#: [id number] Sodium Chloride 0.9% @ 1000 700 100mls/hr Intake, IV Titration 1011.2 Amount Mvi, Adult No.4 with Vit 1011.2 K 10 ml Thiamine 100 mg Folic Acid 1 mg In 0.9% NaCl with KCl 20 Meq/l 1, 000 ml @ 150 mls/hr IV . BY DURATION [facility] Rx#: [id number] Oral 720 330 Tube Feeding 100 Output: Urine 1497 1105 1615 Stool 1 1 6 Other: Voiding Method Indwelling Catheter Indwelling Catheter Indwelling Catheter # Voids 0 # Bowel Movements 1 1 - Exam PHYSICAL EXAMINATION: GENERAL: The patient is alert and oriented x3, not in any acute distress. Well developed, well nourished. HEENT: Pupils are round and equally reacting to light. EOMI. No scleral icterus. No conjunctival pallor. Normocephalic, atraumatic. No pharyngeal erythema. No thyromegaly. CARDIOVASCULAR: S1 and S2 present. No murmurs, rubs, or gallops. PULMONARY: Chest is clear to auscultation, no wheezing or crackles. ABDOMEN: Abdomen is distended and tympanic doesn't appear to have any fluid in that clinically no tenderness MUSCULOSKELETAL: No joint swelling or deformity. EXTREMITIES: No cyanosis, clubbing, or pedal edema. NEUROLOGICAL: Gross neurological examination did not reveal any focal deficits. SKIN: No rashes. - Labs CBC & Chem 7: 05/25/19 05:10 05/25/19 05:10 Labs: Abnormal Lab Results - Last 24 Hours (Table) 05/24/19 05/24/19 05/24/19 Range/Units 11:20 11:20 11:20 WBC (3.8-10.6) k/uL RBC (4.30-5.90) m/uL Hgb (13.0-17.5) gm/dL Hct (39.0-53.0) % MCV (80.0-100.0) fL RDW (11.5-15.5) % Plt Count (150-450) k/uL Neutrophils # (Manual) (1.3-7.7) k/uL Myelocytes # (Manual) (0) k/uL Nucleated RBCs (0-0) /100 WBC Macrocytosis Sodium (137-145) mmol/L Creatinine (0.66-1.25) mg/dL Glucose (74-99) mg/dL POC Glucose (mg/dL) (75-99) mg/dL Calcium (8.4-10.2) mg/dL TIBC 142 L (228-460) ug/dL % Saturation 68.31 H (15.00-50.00) Ferritin 2601.9 H (22.0-322.0) ng/mL Total Bilirubin (0.2-1.3) mg/dL AST (17-59) U/L ALT (4-49) U/L Alkaline Phosphatase (38-126) U/L Ammonia (<30) umol/L Total Protein (6.3-8.2) g/dL Total Protein (PEP) 4.8 L (6.2-8.2) g/dL Albumin (3.5-5.0) g/dL Urine Blood (Negative) Urine Bilirubin (Negative) Urine Bacteria (None) /hpf Hyaline Casts (0-2) /lpf Urine Mucus (None) /hpf Anti-Smooth Muscle Ab 28 H (<20) UNITS 05/24/19 05/24/19 05/25/19 Range/Units 17:12 17:21 00:04 WBC (3.8-10.6) k/uL RBC (4.30-5.90) m/uL Hgb (13.0-17.5) gm/dL Hct (39.0-53.0) % MCV (80.0-100.0) fL RDW (11.5-15.5) % Plt Count (150-450) k/uL Neutrophils # (Manual) (1.3-7.7) k/uL Myelocytes # (Manual) (0) k/uL Nucleated RBCs (0-0) /100 WBC Macrocytosis Sodium (137-145) mmol/L Creatinine (0.66-1.25) mg/dL Glucose (74-99) mg/dL POC Glucose (mg/dL) 170 H 136 H (75-99) mg/dL Calcium (8.4-10.2) mg/dL TIBC (228-460) ug/dL % Saturation (15.00-50.00) Ferritin (22.0-322.0) ng/mL Total Bilirubin (0.2-1.3) mg/dL AST (17-59) U/L ALT (4-49) U/L Alkaline Phosphatase (38-126) U/L Ammonia (<30) umol/L Total Protein (6.3-8.2) g/dL Total Protein (PEP) (6.2-8.2) g/dL Albumin (3.5-5.0) g/dL Urine Blood Small H (Negative) Urine Bilirubin 1+ H (Negative) Urine Bacteria Occasional H (None) /hpf Hyaline Casts 3 H (0-2) /lpf Urine Mucus Rare H (None) /hpf Anti-Smooth Muscle Ab (<20) UNITS 05/25/19 05/25/19 05/25/19 Range/Units 05:10 05:10 05:39 WBC 14.5 H (3.8-10.6) k/uL RBC 3.18 L (4.30-5.90) m/uL Hgb 11.0 L (13.0-17.5) gm/dL Hct 34.4 L (39.0-53.0) % MCV 108.2 H (80.0-100.0) fL RDW 17.8 H (11.5-15.5) % Plt Count 148 L (150-450) k/uL Neutrophils # (Manual) 11.80 H (1.3-7.7) k/uL Myelocytes # (Manual) 0.15 H (0) k/uL Nucleated RBCs 3 H (0-0) /100 WBC Macrocytosis Marked A Sodium 133 L (137-145) mmol/L Creatinine 0.51 L (0.66-1.25) mg/dL Glucose 102 H (74-99) mg/dL POC Glucose (mg/dL) 122 H (75-99) mg/dL Calcium 6.9 L (8.4-10.2) mg/dL TIBC (228-460) ug/dL % Saturation (15.00-50.00) Ferritin (22.0-322.0) ng/mL Total Bilirubin 7.1 H (0.2-1.3) mg/dL AST 364 H (17-59) U/L ALT 88 H (4-49) U/L Alkaline Phosphatase 160 H (38-126) U/L Ammonia (<30) umol/L Total Protein 5.3 L (6.3-8.2) g/dL Total Protein (PEP) (6.2-8.2) g/dL Albumin 2.3 L (3.5-5.0) g/dL Urine Blood (Negative) Urine Bilirubin (Negative) Urine Bacteria (None) /hpf Hyaline Casts (0-2) /lpf Urine Mucus (None) /hpf Anti-Smooth Muscle Ab (<20) UNITS 05/25/19 05/25/19 Range/Units 08:12 11:53 WBC (3.8-10.6) k/uL RBC (4.30-5.90) m/uL Hgb (13.0-17.5) gm/dL Hct (39.0-53.0) % MCV (80.0-100.0) fL RDW (11.5-15.5) % Plt Count (150-450) k/uL Neutrophils # (Manual) (1.3-7.7) k/uL Myelocytes # (Manual) (0) k/uL Nucleated RBCs (0-0) /100 WBC Macrocytosis Sodium (137-145) mmol/L Creatinine (0.66-1.25) mg/dL Glucose (74-99) mg/dL POC Glucose (mg/dL) 129 H (75-99) mg/dL Calcium (8.4-10.2) mg/dL TIBC (228-460) ug/dL % Saturation (15.00-50.00) Ferritin (22.0-322.0) ng/mL Total Bilirubin (0.2-1.3) mg/dL AST (17-59) U/L ALT (4-49) U/L Alkaline Phosphatase (38-126) U/L Ammonia 45 H (<30) umol/L Total Protein (6.3-8.2) g/dL Total Protein (PEP) (6.2-8.2) g/dL Albumin (3.5-5.0) g/dL Urine Blood (Negative) Urine Bilirubin (Negative) Urine Bacteria (None) /hpf Hyaline Casts (0-2) /lpf Urine Mucus (None) /hpf Anti-Smooth Muscle Ab (<20) UNITS Microbiology - Last 24 Hours (Table) 05/23/19 03:30 Blood Culture Gram Stain - Final Blood Blood Culture - Final Escherichia coli 05/23/19 12:29 Urine Culture - Preliminary Urine,Voided Assessment and Plan Plan: -Severe sepsis with lactic acidosis: Secondary to aspiration pneumonia. Patient is on Zosyn respiratory status improved and patient is requiring less oxygen patient is also on steroids which will be continued. Patient would cultures are positive for E. coli as mentioned above patient will be on Rocephin and Zosyn will be discontinued may have gram-negative pneumonia. -Acute hypoxic respiratory failure secondary to left lower lobe pneumonia which is probably because of aspiration patient has left-sided pleural effusion as well. Patient is an above-mentioned antibiotics. -Sinus tachycardia can be related to intravascular depletion and also sepsis continue with IV antibiotics and he with IV fluids. -Nicotine abuse history: -Alcohol abuse: -Alcohol withdrawals which is expected patient is on Ativan CIWA protocol Acute alcoholic hepatitis expected to improve with cessation of alcohol -Hypovolemic hyponatremia there is some improvement in the hyponatremia -Lactic acidosis secondary to sepsis, resolved -PTSD: Patient will be resumed on his home medications -DVT prophylaxis with Lovenox, GI prophylaxis with Pepcid
[2019-05-25] MEDS: PANTOPRAZOLE 40 MG TABLET PO SCH (17:47)
[2019-05-25 21:09] LABS: Glucose,Whole Blood 126 mg/dL (75-99)
--- NOTE | 2019-05-26 05:22 | P.PN ---
Subjective Progress Note Date: 05/25/19 Principal diagnosis: Alcoholic hepatitis Patient is seen in distention seems to be improved. Tolerating a diet. 3 nonbloody bowel movements today. Objective - Vital Signs Vital signs: Vital Signs Temp 99.6 F 05/25/19 08:00 Pulse 112 H 05/25/19 11:00 Resp 28 H 05/25/19 11:37 BP 116/74 05/25/19 11:00 Pulse Ox 91 L 05/25/19 10:00 Intake & Output 05/24/19 05/25/19 05/25/19 18:59 06:59 18:59 Intake Total 3581.2 1275 515 Output Total 1498 1106 1193 Balance 2083.2 169 -678 Weight 102.5 kg Intake: IV 1850 1175 425 0.9% NaCl with KCl 20 Meq 1650 100 /l 1,000 ml @ 150 mls/hr IV .BY DURATION IRINA Rx#: [id number] Piperacillin-Tazobactam 3 200 75 25 .375 gm In Sodium Chloride 0.9% 100 ml @ 25 mls/hr IVPB Q8H IRINA Rx#: [id number] Sodium Chloride 0.9% @ 1000 400 100mls/hr Intake, IV Titration 1011.2 Amount Mvi, Adult No.4 with Vit 1011.2 K 10 ml Thiamine 100 mg Folic Acid 1 mg In 0.9% NaCl with KCl 20 Meq/l 1, 000 ml @ 150 mls/hr IV . BY DURATION IRINA Rx#: [id number] Oral 720 90 Tube Feeding 100 Output: Urine 1497 1105 1190 Stool 1 1 3 Other: Voiding Method Indwelling Catheter Indwelling Catheter Indwelling Catheter # Voids 0 # Bowel Movements 1 1 - Exam On physical examination, patient appears comfortable in no apparent distress. HEAD: Normocephalic, atraumatic. EYES: Scleral icterus. No conjunctival injection. MOUTH: No lesions, tongue midline. NECK: Trachea midline, no gross abnormalities. CHEST: Clear to auscultation with no wheezing or rhonchi appreciated. HEART: Regular rate and rhythm. ABDOMEN: Soft, obese and mildly distended. Bowel sounds are positive. No organomegaly. No guarding or rigidity. EXTREMITIES: No pedal edema. NEUROLOGIC: Alert and oriented x3, patient is tremulous but no asterixis noted. No focal deficits. - Labs CBC & Chem 7: 05/25/19 05:10 05/25/19 05:10 Labs: Abnormal Lab Results - Last 24 Hours (Table) 05/24/19 05/24/19 05/24/19 Range/Units 11:20 11:20 11:20 WBC (3.8-10.6) k/uL RBC (4.30-5.90) m/uL Hgb (13.0-17.5) gm/dL Hct (39.0-53.0) % MCV (80.0-100.0) fL RDW (11.5-15.5) % Plt Count (150-450) k/uL Neutrophils # (Manual) (1.3-7.7) k/uL Myelocytes # (Manual) (0) k/uL Nucleated RBCs (0-0) /100 WBC Macrocytosis Sodium (137-145) mmol/L Creatinine (0.66-1.25) mg/dL Glucose (74-99) mg/dL POC Glucose (mg/dL) (75-99) mg/dL Calcium (8.4-10.2) mg/dL TIBC 142 L (228-460) ug/dL % Saturation 68.31 H (15.00-50.00) Ferritin 2601.9 H (22.0-322.0) ng/mL Total Bilirubin (0.2-1.3) mg/dL AST (17-59) U/L ALT (4-49) U/L Alkaline Phosphatase (38-126) U/L Ammonia (<30) umol/L Total Protein (6.3-8.2) g/dL Total Protein (PEP) 4.8 L (6.2-8.2) g/dL Albumin (3.5-5.0) g/dL Urine Blood (Negative) Urine Bilirubin (Negative) Urine Bacteria (None) /hpf Hyaline Casts (0-2) /lpf Urine Mucus (None) /hpf Anti-Smooth Muscle Ab 28 H (<20) UNITS 05/24/19 05/24/19 05/25/19 Range/Units 17:12 17:21 00:04 WBC (3.8-10.6) k/uL RBC (4.30-5.90) m/uL Hgb (13.0-17.5) gm/dL Hct (39.0-53.0) % MCV (80.0-100.0) fL RDW (11.5-15.5) % Plt Count (150-450) k/uL Neutrophils # (Manual) (1.3-7.7) k/uL Myelocytes # (Manual) (0) k/uL Nucleated RBCs (0-0) /100 WBC Macrocytosis Sodium (137-145) mmol/L Creatinine (0.66-1.25) mg/dL Glucose (74-99) mg/dL POC Glucose (mg/dL) 170 H 136 H (75-99) mg/dL Calcium (8.4-10.2) mg/dL TIBC (228-460) ug/dL % Saturation (15.00-50.00) Ferritin (22.0-322.0) ng/mL Total Bilirubin (0.2-1.3) mg/dL AST (17-59) U/L ALT (4-49) U/L Alkaline Phosphatase (38-126) U/L Ammonia (<30) umol/L Total Protein (6.3-8.2) g/dL Total Protein (PEP) (6.2-8.2) g/dL Albumin (3.5-5.0) g/dL Urine Blood Small H (Negative) Urine Bilirubin 1+ H (Negative) Urine Bacteria Occasional H (None) /hpf Hyaline Casts 3 H (0-2) /lpf Urine Mucus Rare H (None) /hpf Anti-Smooth Muscle Ab (<20) UNITS 05/25/19 05/25/19 05/25/19 Range/Units 05:10 05:10 05:39 WBC 14.5 H (3.8-10.6) k/uL RBC 3.18 L (4.30-5.90) m/uL Hgb 11.0 L (13.0-17.5) gm/dL Hct 34.4 L (39.0-53.0) % MCV 108.2 H (80.0-100.0) fL RDW 17.8 H (11.5-15.5) % Plt Count 148 L (150-450) k/uL Neutrophils # (Manual) 11.80 H (1.3-7.7) k/uL Myelocytes # (Manual) 0.15 H (0) k/uL Nucleated RBCs 3 H (0-0) /100 WBC Macrocytosis Marked A Sodium 133 L (137-145) mmol/L Creatinine 0.51 L (0.66-1.25) mg/dL Glucose 102 H (74-99) mg/dL POC Glucose (mg/dL) 122 H (75-99) mg/dL Calcium 6.9 L (8.4-10.2) mg/dL TIBC (228-460) ug/dL % Saturation (15.00-50.00) Ferritin (22.0-322.0) ng/mL Total Bilirubin 7.1 H (0.2-1.3) mg/dL AST 364 H (17-59) U/L ALT 88 H (4-49) U/L Alkaline Phosphatase 160 H (38-126) U/L Ammonia (<30) umol/L Total Protein 5.3 L (6.3-8.2) g/dL Total Protein (PEP) (6.2-8.2) g/dL Albumin 2.3 L (3.5-5.0) g/dL Urine Blood (Negative) Urine Bilirubin (Negative) Urine Bacteria (None) /hpf Hyaline Casts (0-2) /lpf Urine Mucus (None) /hpf Anti-Smooth Muscle Ab (<20) UNITS 05/25/19 05/25/19 Range/Units 08:12 11:53 WBC (3.8-10.6) k/uL RBC (4.30-5.90) m/uL Hgb (13.0-17.5) gm/dL Hct (39.0-53.0) % MCV (80.0-100.0) fL RDW (11.5-15.5) % Plt Count (150-450) k/uL Neutrophils # (Manual) (1.3-7.7) k/uL Myelocytes # (Manual) (0) k/uL Nucleated RBCs (0-0) /100 WBC Macrocytosis Sodium (137-145) mmol/L Creatinine (0.66-1.25) mg/dL Glucose (74-99) mg/dL POC Glucose (mg/dL) 129 H (75-99) mg/dL Calcium (8.4-10.2) mg/dL TIBC (228-460) ug/dL % Saturation (15.00-50.00) Ferritin (22.0-322.0) ng/mL Total Bilirubin (0.2-1.3) mg/dL AST (17-59) U/L ALT (4-49) U/L Alkaline Phosphatase (38-126) U/L Ammonia 45 H (<30) umol/L Total Protein (6.3-8.2) g/dL Total Protein (PEP) (6.2-8.2) g/dL Albumin (3.5-5.0) g/dL Urine Blood (Negative) Urine Bilirubin (Negative) Urine Bacteria (None) /hpf Hyaline Casts (0-2) /lpf Urine Mucus (None) /hpf Anti-Smooth Muscle Ab (<20) UNITS Microbiology - Last 24 Hours (Table) 05/23/19 03:30 Blood Culture Gram Stain - Final Blood Blood Culture - Final Escherichia coli 05/23/19 12:29 Urine Culture - Preliminary Urine,Voided Assessment and Plan (1) Acute alcoholic hepatitis Narrative/Plan: 39-year-old male with a medical history significant for PTSD and alcohol abuse who presented to the hospital with increasing shortness of breath and weakness. Currently being treated for left lower lobe pneumonia and possible aspiration pneumonia patient has elevation in liver enzymes suggestive of acute alcoholic hepatitis. No biliary pathology noted on computed tomography scan or ultrasound of the abdomen with hepatomegaly and ascites noted. Currently patient is receiving supportive care and broad-spectrum antibiotic therapy in the ICU. Current Visit: Yes Status: Acute Code(s): K70.10 - ALCOHOLIC HEPATITIS WITHOUT ASCITES SNOMED Code(s): 9799028 (2) Elevated liver enzymes Current Visit: Yes Status: Acute Code(s): R74.8 - ABNORMAL LEVELS OF OTHER SERUM ENZYMES SNOMED Code(s): 856706335 (3) Alcohol abuse Current Visit: Yes Status: Acute Code(s): F10.10 - ALCOHOL ABUSE, UNCOMPLICATED SNOMED Code(s): 22800933 (4) Ascites Current Visit: Yes Status: Acute Code(s): R18.8 - OTHER ASCITES SNOMED Code(s): 474852105 Plan: Supportive care Okay for diet as tolerated Continue to monitor CBC, CMP, INR Continue to monitor for signs or symptoms of alcohol withdrawal Continue treatment of suspected left lower lobe pneumonia Alcohol abstinence Lactulose daily initiated Thank you for allowing us to participate in the care of the patient we will continue to follow
[2019-05-26 06:25] LABS: Glucose,Whole Blood 109 mg/dL (75-99)
[2019-05-26] MEDS: SODIUM CHLORIDE 0.9% 1,000 ML IV SCH ×2 (06:26→20:25)
[2019-05-26] MEDS: THIAMINE 100 MG TAB PO SCH ×2 (06:26→17:18)
[2019-05-26] MEDS: PANTOPRAZOLE 40 MG TABLET PO SCH ×2 (06:27→17:18)
[2019-05-26] MEDS: INSULIN ASPART (NovoLOG) 100 UNIT/ML VIAL SQ SCH ×4 (06:27→20:33)
--- NOTE | 2019-05-26 08:19 | P.PN ---
Subjective Progress Note Date: 05/26/19 On today's evaluation of 05/26/2019, the patient is feeling even better compared to yesterday. He is alert and oriented. His tachycardia is improved and his heart rate is in the high 90s low 100s range. He is still in a sinus rhythm. Is producing excellent urine output. He remains on IV fluids at the rate of 100 mL an hour. No pressors. He is on IV Rocephin. Repeat blood cultures of been negative and he had E. coli septicemia at the time of admission. No fever. No chills. Ammonia level is dropping. He is stooling at least 10 of them yesterday and for that reason lactulose will be discontinued. He is on oral Protonix. He is on oral prednisone. He is tolerating his diet and essentially taken soft diet for now. He was able to get up to a commode at the bedside. No chamber's. No agitation. No hallucinations. No GI bleeding. The white cell count from yesterday was down to 14 and the follow-up results from today still pending. A hepatic profile was done and the patient had a normal alpha-1 antitrypsin level, normal ceruloplasmin level, tumor marker for alpha- fetoprotein was negative and he had a positive antimitochondrial antibodies and anti-smooth muscle antibodies. Objective - Vital Signs Vital signs: Vital Signs Temp 97.6 F 05/26/19 00:00 Pulse 104 H 05/26/19 08:00 Resp 23 05/26/19 08:00 BP 130/73 05/26/19 08:00 Pulse Ox 95 05/26/19 08:00 Intake & Output 05/25/19 05/26/19 05/26/19 18:59 06:59 18:59 Intake Total 1945 1200 100 Output Total 1784 660 35 Balance 161 540 65 Weight 103.6 kg Intake: IV 1325 1200 100 Piperacillin-Tazobactam 3 125 .375 gm In Sodium Chloride 0.9% 100 ml @ 25 mls/hr IVPB Q8H [facility] Rx#: [id number] Sodium Chloride 0.9% @ 1200 1200 100 100mls/hr Intake, IV Titration 50 Amount cefTRIAXone 2 gm In 50 Sodium Chloride 0.9% 50 ml @ 100 mls/hr IVPB Q24H IR[facility] Rx#:[id number] Oral 570 Output: Urine 1775 655 35 Stool 9 5 Other: Voiding Method Indwelling Catheter Indwelling Catheter # Voids 0 # Bowel Movements 1 - Exam Awake and alert and on and active distress following instructions and following commands and answering questions appropriately. He is jaundiced. Head exam was generally normal. There was no scleral icterus or corneal arcus. Mucous membranes were moist. Neck was supple and without jugular venous distension, thyromegaly, or carotid bruits. Carotids were easily palpable bilaterally. There was no adenopathy. Mucous membranes are extremely dry and the patient has no oropharyngeal candidiasis Lungs sounds are diminished in lung bases more so on the left along with some dullness to percussion Heart sounds are tachycardic, Cardiac exam revealed the PMI to be normally situated and sized. The rhythm was regular and no extrasystoles were noted during several minutes of auscultation. The first and second heart sounds were normal and physiologic splitting of the second heart sound was noted. There were no murmurs, rubs, clicks, or gallops. Abdomen is distended. Soft. There is hepatomegaly. Spleen cannot be palpated. No fluid wave or shifting dullness. No direct tenderness rebound tensile guarding. The abdomen is slightly tympanic Examination of the extremities revealed easily palpable radial, femoral and pedal pulses. There was no cyanosis, clubbing or edema. Skin shows significant amount of psoriatic plaques throughout the abdomen and upper and lower extremities bilaterally. Neurologically awake and alert and there is no focal neurological deficits. He shouldn't is somnolent and lethargic. He is arousable and follows commands and answers questions appropriately. No tremors. No hallucinations. - Labs CBC & Chem 7: 05/25/19 05:10 05/25/19 05:10 Labs: Abnormal Lab Results - Last 24 Hours (Table) 05/24/19 05/24/19 05/25/19 Range/Units 11:20 11:20 08:12 POC Glucose (mg/dL) (75-99) mg/dL Ammonia 45 H (<30) umol/L Albumin (PEP) 2.46 L (3.80-4.90) g/dL Dsucs-7-Qjczvmkkn 0.49 L (0.60-1.00) g/dL Beta Globulins 0.46 L (0.60-1.30) g/dL Anti-Smooth Muscle Ab 28 H (<20) UNITS 05/25/19 05/25/19 05/26/19 Range/Units 11:53 21:08 04:45 POC Glucose (mg/dL) 129 H 126 H (75-99) mg/dL Ammonia 42 H (<30) umol/L Albumin (PEP) (3.80-4.90) g/dL Mbptn-3-Aumvoykfu (0.60-1.00) g/dL Beta Globulins (0.60-1.30) g/dL Anti-Smooth Muscle Ab (<20) UNITS 05/26/19 Range/Units 06:23 POC Glucose (mg/dL) 109 H (75-99) mg/dL Ammonia (<30) umol/L Albumin (PEP) (3.80-4.90) g/dL Dpcvr-8-Teqalygsv (0.60-1.00) g/dL Beta Globulins (0.60-1.30) g/dL Anti-Smooth Muscle Ab (<20) UNITS Microbiology - Last 24 Hours (Table) 05/23/19 03:22 Blood Culture - Final Blood 05/25/19 05:10 Blood Culture - Preliminary Blood No Growth after 24 hours 05/23/19 12:29 Urine Culture - Final Urine,Voided 05/24/19 17:21 Blood Culture - Preliminary Blood No Growth after 24 hours Assessment and Plan Plan: 1 acute hypoxic respiratory failure with suspected left lower lobe pneumonia, consider aspiration in the setting of a chronic alcoholism and alcohol drinking. The patient has a limited consolidation of the left lobe base along with small left-sided pleural effusion. The chest x-ray from today shows a limited consolidation and effusion in the left lung base. He is on 2 L of oxygen by nasal cannula. No signs of any respiratory distress. 2 acute E. coli sepsis and the exact source is not clear. Consider aspiration pneumonia. Consider intra-abdominal source with translocation of bacteria. Gallbladder shows no evidence of any cholecystitis. No significant ascites. Spontaneous bacterial peritonitis is felt to be less likely. Urinary sources cannot be completely excluded. The blood cultures will be repeated. Results are still pending for now. Meanwhile, the patient's neck against also improved. Tachycardia is improved. His blood resuscitated. He is not requiring any pressors. His white cell count is currently down to 14.5. Note that the patient's had follow-up cultures that came back negative and the patient is currently on IV Rocephin 2 g every 24 hours. 3 alcoholism with acute alcohol intoxication, improved 4 acute alcoholic hepatitis, LFTs are still abnormal, but improving, awaiting the follow-up labs from today 5 massive hepatomegaly and abdominal distention with minimal ascites 6 jaundice 7 sinus tachycardia, improving 8 acute lactic acidosis secondary to above, improving and the lactic acid level is down to 2 9 abdominal distention, mainly secondary to hepatomegaly, and there is also a component of ileus/small bowel distention/ileus 10 smoker 11 PTSD 12 leukocytosis, likely reactive, improving 13 motor weakness and unsteady gait 14 abdominal distention mainly due to hepatomegaly and addition to a component of small bowel ileus Plan Maintenance IV fluids to be dropped to 50 mL an hour Discontinue lactulose Continue IV Rocephin Continue oral Protonix Awaiting labs from today up on a chair and try to ambulate Soft diet GI to comment on the positive anti-smooth muscle and antimitochondrial antibodies. Continue the prednisone for now We'll follow him on the patient can be transferred to a medical floor for the time being. Discontinue Epps
[2019-05-26 08:20] LABS: Anisocytosis Slight; HCT 37.5 % (39.0-53.0); HGB 11.9 gm/dL (13.0-17.5); Hypochromasia Slight; MCH 34.9 pg (25.0-35.0); MCHC 31.7 g/dL (31.0-37.0); MCV 110.1 fL (80.0-100.0); Macrocytosis Marked; Mean Platelet Volume 10.6; Platelet Count 173 k/uL (150-450); RDW 18.6 % (11.5-15.5); WBC 14.4 k/uL (3.8-10.6)
[2019-05-26] MEDS: ENOXAPARIN 40 MG/0.4 ML SYRINGE SQ SCH (08:24)
[2019-05-26] MEDS: METOPROLOL TARTRATE 25 MG TAB PO SCH ×2 (08:24→20:25)
[2019-05-26] MEDS: NICOTINE 21MG/24HR PATCH TRANSDERM SCH (08:24)
[2019-05-26] MEDS: predniSONE 20 MG TAB PO SCH (08:24)
[2019-05-26 08:29] LABS: ALT 112 U/L (4-49); AST 449 U/L (17-59); African American GFR (CKD) >90 (>60 ml/min/1.73 sqM); Albumin 2.4 g/dL (3.5-5.0); Alkaline Phosphatase 176 U/L (38-126); Anion Gap 6 mmol/L; Blood Urea Nitrogen 13 mg/dL (9-20); Calcium 7.2 mg/dL (8.4-10.2); Carbon Dioxide 22 mmol/L (22-30); Chloride 108 mmol/L (98-107); Glucose 103 mg/dL (74-99); Non-African American GFR(CKD) >90 (>60 ml/min/1.73 sqM); Potassium 3.6 mmol/L (3.5-5.1); Sodium 136 mmol/L (137-145); Total Bilirubin 7.1 mg/dL (0.2-1.3); Total Protein 5.6 g/dL (6.3-8.2)
[2019-05-26 08:49] LABS: Polychromasia Present
[2019-05-26 08:50] LABS: Target Cells Present
--- NOTE | 2019-05-26 08:51 | XR ---
EXAMINATION TYPE: XR chest 1V DATE OF EXAM: 05/26/2019 COMPARISON: Prior chest x-ray 05/24/2019 HISTORY: Congestive heart failure TECHNIQUE: Single frontal view of the chest is obtained. FINDINGS: There is persistent retrocardiac density with obscured left hemidiaphragm, blunting the le ft cost phrenic angle. No evident pneumothorax. Subsegmental basal atelectasis noted on the right. Aminata ng findings are low. There are overlying cardiac leads. Heart size is stable. IMPRESSION: Findings are similar to prior exam. Correlate for possible left lower lobe atelectasis v ersus pneumonia and associated effusion. Follow-up recommended.
[2019-05-26] MEDS ORDERED: LACTULOSE 20 GM/30 ML CUP PO SCH (09:00)
[2019-05-26] MEDS ORDERED: POTASSIUM CHLORIDE ER 20 MEQ TAB.ER PO SCH (10:00)
[2019-05-26 11:29] LABS: Protein, Total 4.7 g/dL (6.2-8.2)
[2019-05-26 11:50] LABS: Glucose,Whole Blood 134 mg/dL (75-99)
--- NOTE | 2019-05-26 15:33 | P.PN ---
Subjective Progress Note Date: 05/26/19 Principal diagnosis: Patient is admitted for aspiration pneumonia left-sided and alcohol withdrawals. Patient is tachycardic start him on metoprolol. Patient will be continued on IV fluids and Lasix will discuss your patient doesn't have any ascites patient abdomen is tympanic may have mild ascites which is not clinically appreciable. I'll obtain abdominal x-ray patient did have good bowel movements yesterday. Patient is presently on Zosyn. Patient didn't receive any Ativan today. 05/25/2019 Patient's blood cultures are positive for E. coli which is pansensitive patient will be switched to Rocephin 2 g daily. His saturations are bit was I'll obtain a chest x-ray to rule out any pulmonary edema. Patient probably has gram- negative pneumonia. Patient does have a significant ascites because of which I'm not starting him on any diuretics diuretic will continue to hold the diuretic therapy. Patient is to have elevated bilirubin although cannot completely exclude cirrhosis, patient most probably has severe alcoholic hepatitis Constitutional: Patient feels tired fatigued Cardio vascular: denied any chest pain, palpitations Gastrointestinal denied any nausea vomiting Pulmonary: Denied any shortness of breath cough Neurologic denied any new focal deficits 05/26/2019 Patient is currently lying in bed in the ICU and being closely monitored. Patient is awaiting transfer to a [facility] unit at this time. Patient states that he feels slightly better and was up walking with physical therapy today. Patient felt short of breath and was placed back on 3 L oxygen via nasal cannula. Patient is currently maintained on IV antibiotics in the form of Rocephin and will continue at this time. Pulmonary and GI are following. Liver functions and bilirubin continue to be elevated and her being closely monitored. Currently patient denies any chest pain or palpitations. This morning patient is afebrile. Patient denies any nausea or vomiting and is tolerating diet. Objective - Vital Signs Vital signs: Vital Signs Temp 99.0 F 05/26/19 12:00 Pulse 88 05/26/19 11:00 Resp 17 05/26/19 12:00 BP 110/66 05/26/19 12:00 Pulse Ox 94 L 05/26/19 11:00 Intake & Output 05/25/19 05/26/19 05/26/19 18:59 06:59 18:59 Intake Total 1945 1200 590 Output Total 1784 660 137 Balance 161 540 453 Weight 103.6 kg Intake: IV 1325 1200 350 Piperacillin-Tazobactam 3 125 .375 gm In Sodium Chloride 0.9% 100 ml @ 25 mls/hr IVPB Q8H [facility] Rx#: [id number] Sodium Chloride 0.9% @ 1200 1200 350 100mls/hr Intake, IV Titration 50 Amount cefTRIAXone 2 gm In 50 Sodium Chloride 0.9% 50 ml @ 100 mls/hr IVPB Q24H [facility] Rx#:[id number] Oral 570 240 Output: Urine 1775 655 135 Stool 9 5 2 Other: Voiding Method Indwelling Catheter Indwelling Catheter Indwelling Catheter # Voids 0 1 # Bowel Movements 1 1 - Exam GENERAL: The patient is alert and oriented x3, not in any acute distress. Well developed, well nourished. HEENT: Pupils are round and equally reacting to light. EOMI. No scleral icterus. Sclera is jaundiced. No conjunctival pallor. Normocephalic, atraumatic. No pharyngeal erythema. No thyromegaly. CARDIOVASCULAR: S1 and S2 present. No murmurs, rubs, or gallops. PULMONARY: Chest is clear to auscultation, no wheezing or crackles. ABDOMEN: Abdomen is distended and tympanic doesn't appear to have any fluid in that clinically no tenderness MUSCULOSKELETAL: No joint swelling or deformity. EXTREMITIES: No cyanosis, clubbing, or pedal edema. NEUROLOGICAL: Gross neurological examination did not reveal any focal deficits. SKIN: No rashes. - Labs CBC & Chem 7: 05/26/19 07:41 05/26/19 07:41 Labs: Abnormal Lab Results - Last 24 Hours (Table) 05/24/19 05/25/19 05/26/19 Range/Units 11:20 21:08 04:45 WBC (3.8-10.6) k/uL RBC (4.30-5.90) m/uL Hgb (13.0-17.5) gm/dL Hct (39.0-53.0) % MCV (80.0-100.0) fL RDW (11.5-15.5) % Macrocytosis Sodium (137-145) mmol/L Chloride (98-107) mmol/L Creatinine (0.66-1.25) mg/dL Glucose (74-99) mg/dL POC Glucose (mg/dL) 126 H (75-99) mg/dL Calcium (8.4-10.2) mg/dL Total Bilirubin (0.2-1.3) mg/dL AST (17-59) U/L ALT (4-49) U/L Alkaline Phosphatase (38-126) U/L Ammonia (<30) umol/L Total Protein (6.3-8.2) g/dL Total Protein (PEP) 4.7 L (6.2-8.2) g/dL Albumin (3.5-5.0) g/dL Albumin (PEP) 2.46 L (3.80-4.90) g/dL Amzmm-6-Rmmbulzfb 0.49 L (0.60-1.00) g/dL Beta Globulins 0.46 L (0.60-1.30) g/dL 05/26/19 05/26/19 05/26/19 Range/Units 04:45 06:23 07:41 WBC 14.4 H (3.8-10.6) k/uL RBC 3.40 L (4.30-5.90) m/uL Hgb 11.9 L (13.0-17.5) gm/dL Hct 37.5 L (39.0-53.0) % MCV 110.1 H (80.0-100.0) fL RDW 18.6 H (11.5-15.5) % Macrocytosis Marked A Sodium (137-145) mmol/L Chloride (98-107) mmol/L Creatinine (0.66-1.25) mg/dL Glucose (74-99) mg/dL POC Glucose (mg/dL) 109 H (75-99) mg/dL Calcium (8.4-10.2) mg/dL Total Bilirubin (0.2-1.3) mg/dL AST (17-59) U/L ALT (4-49) U/L Alkaline Phosphatase (38-126) U/L Ammonia 42 H (<30) umol/L Total Protein (6.3-8.2) g/dL Total Protein (PEP) (6.2-8.2) g/dL Albumin (3.5-5.0) g/dL Albumin (PEP) (3.80-4.90) g/dL Gqble-3-Mxbcxrkqt (0.60-1.00) g/dL Beta Globulins (0.60-1.30) g/dL 05/26/19 05/26/19 Range/Units 07:41 11:49 WBC (3.8-10.6) k/uL RBC (4.30-5.90) m/uL Hgb (13.0-17.5) gm/dL Hct (39.0-53.0) % MCV (80.0-100.0) fL RDW (11.5-15.5) % Macrocytosis Sodium 136 L (137-145) mmol/L Chloride 108 H (98-107) mmol/L Creatinine 0.50 L (0.66-1.25) mg/dL Glucose 103 H (74-99) mg/dL POC Glucose (mg/dL) 134 H (75-99) mg/dL Calcium 7.2 L (8.4-10.2) mg/dL Total Bilirubin 7.1 H (0.2-1.3) mg/dL AST 449 H (17-59) U/L ALT 112 H (4-49) U/L Alkaline Phosphatase 176 H (38-126) U/L Ammonia (<30) umol/L Total Protein 5.6 L (6.3-8.2) g/dL Total Protein (PEP) (6.2-8.2) g/dL Albumin 2.4 L (3.5-5.0) g/dL Albumin (PEP) (3.80-4.90) g/dL Yopzb-6-Ydkzhknwb (0.60-1.00) g/dL Beta Globulins (0.60-1.30) g/dL Microbiology - Last 24 Hours (Table) 05/23/19 03:22 Blood Culture - Final Blood 05/25/19 05:10 Blood Culture - Preliminary Blood No Growth after 24 hours 05/23/19 12:29 Urine Culture - Final Urine,Voided 05/24/19 17:21 Blood Culture - Preliminary Blood No Growth after 24 hours Assessment and Plan Assessment: -Severe sepsis with lactic acidosis: Secondary to aspiration pneumonia. Patient is on Zosyn respiratory status improved and patient is requiring less oxygen patient is also on steroids which will be continued. Patient blood cultures are positive for E. coli as mentioned above patient will be on Rocephin and Zosyn will be discontinued may have gram-negative pneumonia. -Acute hypoxic respiratory failure secondary to left lower lobe pneumonia which is probably because of aspiration patient has left-sided pleural effusion as well. Patient is on above-mentioned antibiotics. Repeat chest x-ray shows no real improvement and continues to show possible left lower lobe atelectasis versus pneumonia and associated effusion -Sinus tachycardia can be related to intravascular depletion and also sepsis continue with IV antibiotics and he with IV fluids. -Nicotine abuse history: Counseling provided -Alcohol abuse: Counseling provided -Alcohol withdrawals which is expected patient is on Ativan CIWA protocol -Acute alcoholic hepatitis expected to improve with cessation of alcohol -Hypovolemic hyponatremia there is some improvement in the hyponatremia, sodium today is 136 -Lactic acidosis secondary to sepsis, resolved -PTSD: Patient will be resumed on his home medications -DVT prophylaxis with Lovenox, GI prophylaxis with Pepcid
[2019-05-26 16:53] LABS: Glucose,Whole Blood 120 mg/dL (75-99)
[2019-05-26] MEDS: SUCRALFATE 1 GM TAB PO SCH (17:18)
[2019-05-26 20:25] LABS: Glucose,Whole Blood 112 mg/dL (75-99)
--- NOTE | 2019-05-26 20:59 | P.PN ---
Subjective Progress Note Date: 05/26/19 Principal diagnosis: Alcoholic hepatitis Patient is seen in lying in bed today. He is tolerating his diet. Multiple loose bowel movements yesterday with lactulose therapy. No nausea or vomiting. Denies any signs or symptoms of GI bleeding. Objective - Vital Signs Vital signs: Vital Signs Temp 99.0 F 05/26/19 12:00 Pulse 88 05/26/19 11:00 Resp 17 05/26/19 12:00 BP 110/66 05/26/19 12:00 Pulse Ox 94 L 05/26/19 11:00 Intake & Output 05/25/19 05/26/19 05/26/19 18:59 06:59 18:59 Intake Total 1945 1200 590 Output Total 1784 660 137 Balance 161 540 453 Weight 103.6 kg Intake: IV 1325 1200 350 Piperacillin-Tazobactam 3 125 .375 gm In Sodium Chloride 0.9% 100 ml @ 25 mls/hr IVPB Q8H IRINA Rx#: [id number] Sodium Chloride 0.9% @ 1200 1200 350 100mls/hr Intake, IV Titration 50 Amount cefTRIAXone 2 gm In 50 Sodium Chloride 0.9% 50 ml @ 100 mls/hr IVPB Q24H IRINA Rx#:[id number] Oral 570 240 Output: Urine 1775 655 135 Stool 9 5 2 Other: Voiding Method Indwelling Catheter Indwelling Catheter Indwelling Catheter # Voids 0 1 # Bowel Movements 1 1 - Exam On physical examination, patient appears comfortable in no apparent distress. HEAD: Normocephalic, atraumatic. EYES: Scleral icterus. No conjunctival injection. MOUTH: No lesions, tongue midline. NECK: Trachea midline, no gross abnormalities. CHEST: Clear to auscultation with no wheezing or rhonchi appreciated. HEART: Regular rate and rhythm. ABDOMEN: Soft, obese and mildly distended. Bowel sounds are positive. No organomegaly. No guarding or rigidity. EXTREMITIES: No pedal edema. NEUROLOGIC: Alert and oriented x3, patient is tremulous but no asterixis noted. No focal deficits. - Labs CBC & Chem 7: 05/26/19 07:41 05/26/19 07:41 Labs: Abnormal Lab Results - Last 24 Hours (Table) 05/25/19 05/26/19 05/26/19 Range/Units 21:08 04:45 04:45 WBC (3.8-10.6) k/uL RBC (4.30-5.90) m/uL Hgb (13.0-17.5) gm/dL Hct (39.0-53.0) % MCV (80.0-100.0) fL RDW (11.5-15.5) % Macrocytosis Sodium (137-145) mmol/L Chloride (98-107) mmol/L Creatinine (0.66-1.25) mg/dL Glucose (74-99) mg/dL POC Glucose (mg/dL) 126 H (75-99) mg/dL Calcium (8.4-10.2) mg/dL Total Bilirubin (0.2-1.3) mg/dL AST (17-59) U/L ALT (4-49) U/L Alkaline Phosphatase (38-126) U/L Ammonia 42 H (<30) umol/L Total Protein (6.3-8.2) g/dL Total Protein (PEP) 4.7 L (6.2-8.2) g/dL Albumin (3.5-5.0) g/dL 05/26/19 05/26/19 05/26/19 Range/Units 06:23 07:41 07:41 WBC 14.4 H (3.8-10.6) k/uL RBC 3.40 L (4.30-5.90) m/uL Hgb 11.9 L (13.0-17.5) gm/dL Hct 37.5 L (39.0-53.0) % MCV 110.1 H (80.0-100.0) fL RDW 18.6 H (11.5-15.5) % Macrocytosis Marked A Sodium 136 L (137-145) mmol/L Chloride 108 H (98-107) mmol/L Creatinine 0.50 L (0.66-1.25) mg/dL Glucose 103 H (74-99) mg/dL POC Glucose (mg/dL) 109 H (75-99) mg/dL Calcium 7.2 L (8.4-10.2) mg/dL Total Bilirubin 7.1 H (0.2-1.3) mg/dL AST 449 H (17-59) U/L ALT 112 H (4-49) U/L Alkaline Phosphatase 176 H (38-126) U/L Ammonia (<30) umol/L Total Protein 5.6 L (6.3-8.2) g/dL Total Protein (PEP) (6.2-8.2) g/dL Albumin 2.4 L (3.5-5.0) g/dL 05/26/19 Range/Units 11:49 WBC (3.8-10.6) k/uL RBC (4.30-5.90) m/uL Hgb (13.0-17.5) gm/dL Hct (39.0-53.0) % MCV (80.0-100.0) fL RDW (11.5-15.5) % Macrocytosis Sodium (137-145) mmol/L Chloride (98-107) mmol/L Creatinine (0.66-1.25) mg/dL Glucose (74-99) mg/dL POC Glucose (mg/dL) 134 H (75-99) mg/dL Calcium (8.4-10.2) mg/dL Total Bilirubin (0.2-1.3) mg/dL AST (17-59) U/L ALT (4-49) U/L Alkaline Phosphatase (38-126) U/L Ammonia (<30) umol/L Total Protein (6.3-8.2) g/dL Total Protein (PEP) (6.2-8.2) g/dL Albumin (3.5-5.0) g/dL Microbiology - Last 24 Hours (Table) 05/23/19 03:22 Blood Culture - Final Blood 05/25/19 05:10 Blood Culture - Preliminary Blood No Growth after 24 hours 05/23/19 12:29 Urine Culture - Final Urine,Voided 05/24/19 17:21 Blood Culture - Preliminary Blood No Growth after 24 hours Assessment and Plan (1) Acute alcoholic hepatitis Narrative/Plan: 39-year-old male with a medical history significant for PTSD and alcohol abuse who presented to the hospital with increasing shortness of breath and weakness. Currently being treated for left lower lobe pneumonia and possible aspiration pneumonia patient has elevation in liver enzymes suggestive of acute alcoholic hepatitis. No biliary pathology noted on computed tomography scan or ultrasound of the abdomen with hepatomegaly and ascites noted. Currently patient is receiving supportive care and broad-spectrum antibiotic therapy in the ICU. Current Visit: Yes Status: Acute Code(s): K70.10 - ALCOHOLIC HEPATITIS WITHOUT ASCITES SNOMED Code(s): 8740661 (2) Elevated liver enzymes Current Visit: Yes Status: Acute Code(s): R74.8 - ABNORMAL LEVELS OF OTHER SERUM ENZYMES SNOMED Code(s): 497067651 (3) Alcohol abuse Current Visit: Yes Status: Acute Code(s): F10.10 - ALCOHOL ABUSE, U NCOMPLICATED SNOMED Code(s): 16051101 (4) Ascites Current Visit: Yes Status: Acute Code(s): R18.8 - OTHER ASCITES SNOMED Code(s): 951383450 Plan: Supportive care Okay for diet as tolerated Continue to monitor CBC, CMP, INR Continue to monitor for signs or symptoms of alcohol withdrawal Continue treatment of suspected left lower lobe pneumonia Alcohol abstinence Lactulose therapy, discontinued in the setting of intractable diarrhea Liver serologies essentially negative, anti-smooth muscle antibody was found to be mildly elevated, however gammam globulin level nonelevated and MARK negative making autoimmune hepatitis unlikely Thank you for allowing us to participate in the care of the patient we will continue to follow
[2019-05-27 05:23] LABS: Anisocytosis Slight; HCT 34.6 % (39.0-53.0); HGB 10.9 gm/dL (13.0-17.5); Hypochromasia Slight; MCH 34.8 pg (25.0-35.0); MCHC 31.4 g/dL (31.0-37.0); MCV 110.9 fL (80.0-100.0); Macrocytosis Marked; Mean Platelet Volume 10.1; Platelet Count 154 k/uL (150-450); RBC 3.12 m/uL (4.30-5.90); RDW 19.5 % (11.5-15.5)
[2019-05-27 05:35] LABS: ALT 125 U/L (4-49); AST 385 U/L (17-59); African American GFR (CKD) >90 (>60 ml/min/1.73 sqM); Albumin 2.2 g/dL (3.5-5.0); Alkaline Phosphatase 175 U/L (38-126); Anion Gap 4 mmol/L; Blood Urea Nitrogen 12 mg/dL (9-20); Calcium 7.2 mg/dL (8.4-10.2); Carbon Dioxide 23 mmol/L (22-30); Chloride 108 mmol/L (98-107); Glucose 89 mg/dL (74-99); Non-African American GFR(CKD) >90 (>60 ml/min/1.73 sqM); Potassium 3.4 mmol/L (3.5-5.1); Sodium 135 mmol/L (137-145); Total Bilirubin 5.5 mg/dL (0.2-1.3)
[2019-05-27 06:37] LABS: Eosinophils # (M) 0.24 k/uL (0-0.7); Metamyelocytes # (M) 0.12 k/uL (0); Metamyelocytes % 1 %; Myelocytes # (M) 0.24 k/uL (0); Myelocytes % 2 %; Neutrophils % (M) 72 %; Nucleated Red Blood Cells 1 /100 WBC (0-0); Total Cells Counted 200
[2019-05-27 06:38] LABS: Lymphocytes # (M) 2.04 k/uL (1.0-4.8); Monocytes # (M) 0.96 k/uL (0-1.0); Neutrophils # (M) 8.64 k/uL (1.3-7.7); Target Cells Present
[2019-05-27 06:39] LABS: Polychromasia Present
[2019-05-27 06:40] LABS: Glucose,Whole Blood 100 mg/dL (75-99)
[2019-05-27] MEDS: THIAMINE 100 MG TAB PO SCH (06:46)
[2019-05-27] MEDS: INSULIN ASPART (NovoLOG) 100 UNIT/ML VIAL SQ SCH (06:46)
[2019-05-27] MEDS: SUCRALFATE 1 GM TAB PO SCH (06:46)
[2019-05-27] MEDS: PANTOPRAZOLE 40 MG TABLET PO SCH (06:46)
[2019-05-27 06:49] VITALS: BP 121/75
[2019-05-27] MEDS: POTASSIUM CHLORIDE ER 20 MEQ TAB.ER PO SCH ×2 (07:02→08:10)
[2019-05-27] MEDS: predniSONE 20 MG TAB PO SCH (08:10)
[2019-05-27] MEDS: ENOXAPARIN 40 MG/0.4 ML SYRINGE SQ SCH (08:10)
[2019-05-27] MEDS: METOPROLOL TARTRATE 25 MG TAB PO SCH (08:10)
[2019-05-27] MEDS: NICOTINE 21MG/24HR PATCH TRANSDERM SCH (08:10)
--- NOTE | 2019-05-27 08:38 | P.PN ---
Subjective Progress Note Date: 05/27/19 On 05/27/2019 on seeing the patient improving slowly on a daily basis. He is able to get up and sit up on a chair. He still slightly tachycardic and he has some sinus tachycardia that ongoing. I did kept on his fluid down to 50 mL an hour. He is eating. He is on IV Rocephin. No respiratory difficulties. He is on room air oxygen. His LFTs continued to improve. No abdominal pain. No nausea. No vomiting. No diarrhea. We have cut down his lactulose and we have held it for now as the patient was having significant amount of diarrhea while on lactulose. No signs of any delirium tremens. No agitation. No hallucinations. No restlessness. Hepatitic profile was done and the patient had a normal alpha-1 antitrypsin level, normal ceruloplasmin level, tumor markers for alpha-fetoprotein was negative and the patient has a positive antimitochondrial and smooth muscle antibodies and I've left the workup of this matter to GI. Meanwhile, the patient continues to show some improvement and LF Ts. Objective - Vital Signs Vital signs: Vital Signs Temp 97.5 F L 05/27/19 06:49 Pulse 98 05/27/19 06:49 Resp 18 05/27/19 06:49 BP 121/75 05/27/19 06:49 Pulse Ox 96 05/27/19 06:49 Intake & Output 05/26/19 05/27/19 05/27/19 18:59 06:59 18:59 Intake Total 1030 780 Output Total 137 Balance 893 780 Intake: IV 550 300 Sodium Chloride 0.9% @ 550 300 100mls/hr Oral 480 480 Output: Urine 135 Stool 2 Other: Voiding Method Toilet Toilet Toilet # Voids 1 1 # Bowel Movements 1 - Exam Awake and alert and on and active distress following instructions and following commands and answering questions appropriately. He is jaundiced. Head exam was generally normal. There was no scleral icterus or corneal arcus. Mucous membranes were moist. Neck was supple and without jugular venous distension, thyromegaly, or carotid bruits. Carotids were easily palpable bilaterally. There was no adenopathy. Mucous membranes are extremely dry and the patient has no oropharyngeal candidiasis Lungs sounds are diminished in lung bases more so on the left along with some dullness to percussion Heart sounds are tachycardic, Cardiac exam revealed the PMI to be normally situated and sized. The rhythm was regular and no extrasystoles were noted during several minutes of auscultation. The first and second heart sounds were normal and physiologic splitting of the second heart sound was noted. There were no murmurs, rubs, clicks, or gallops. Abdomen is distended. Soft. There is hepatomegaly. Spleen cannot be palpated. No fluid wave or shifting dullness. No direct tenderness rebound tensile guarding. The abdomen is slightly tympanic Examination of the extremities revealed easily palpable radial, femoral and pedal pulses. There was no cyanosis, clubbing or edema. Skin shows significant amount of psoriatic plaques throughout the abdomen and upper and lower extremities bilaterally. Neurologically awake and alert and there is no focal neurological deficits. He shouldn't is somnolent and lethargic. He is arousable and follows commands and answers questions appropriately. No tremors. No hallucinations. - Labs CBC & Chem 7: 05/27/19 04:49 05/27/19 04:49 Labs: Abnormal Lab Results - Last 24 Hours (Table) 05/26/19 05/26/19 05/26/19 Range/Units 04:45 07:41 11:49 WBC (3.8-10.6) k/uL RBC (4.30-5.90) m/uL Hgb (13.0-17.5) gm/dL Hct (39.0-53.0) % MCV (80.0-100.0) fL RDW (11.5-15.5) % Neutrophils # (Manual) (1.3-7.7) k/uL Metamyelocytes # (Man) (0) k/uL Myelocytes # (Manual) (0) k/uL Nucleated RBCs (0-0) /100 WBC Macrocytosis Sodium 136 L (137-145) mmol/L Potassium (3.5-5.1) mmol/L Chloride 108 H (98-107) mmol/L Creatinine 0.50 L (0.66-1.25) mg/dL Glucose 103 H (74-99) mg/dL POC Glucose (mg/dL) 134 H (75-99) mg/dL Calcium 7.2 L (8.4-10.2) mg/dL Total Bilirubin 7.1 H (0.2-1.3) mg/dL AST 449 H (17-59) U/L ALT 112 H (4-49) U/L Alkaline Phosphatase 176 H (38-126) U/L Ammonia (<30) umol/L Total Protein 5.6 L (6.3-8.2) g/dL Total Protein (PEP) 4.7 L (6.2-8.2) g/dL Albumin 2.4 L (3.5-5.0) g/dL 05/26/19 05/26/19 05/27/19 Range/Units 16:51 20:23 04:49 WBC 12.0 H (3.8-10.6) k/uL RBC 3.12 L (4.30-5.90) m/uL Hgb 10.9 L (13.0-17.5) gm/dL Hct 34.6 L (39.0-53.0) % MCV 110.9 H (80.0-100.0) fL RDW 19.5 H (11.5-15.5) % Neutrophils # (Manual) 8.64 H (1.3-7.7) k/uL Metamyelocytes # (Man) 0.12 H (0) k/uL Myelocytes # (Manual) 0.24 H (0) k/uL Nucleated RBCs 1 H (0-0) /100 WBC Macrocytosis Marked A Sodium (137-145) mmol/L Potassium (3.5-5.1) mmol/L Chloride (98-107) mmol/L Creatinine (0.66-1.25) mg/dL Glucose (74-99) mg/dL POC Glucose (mg/dL) 120 H 112 H (75-99) mg/dL Calcium (8.4-10.2) mg/dL Total Bilirubin (0.2-1.3) mg/dL AST (17-59) U/L ALT (4-49) U/L Alkaline Phosphatase (38-126) U/L Ammonia (<30) umol/L Total Protein (6.3-8.2) g/dL Total Protein (PEP) (6.2-8.2) g/dL Albumin (3.5-5.0) g/dL 01/05/27/19 05/27/19 Range/Units 04:49 04:49 06:38 WBC (3.8-10.6) k/uL RBC (4.30-5.90) m/uL Hgb (13.0-17.5) gm/dL Hct (39.0-53.0) % MCV (80.0-100.0) fL RDW (11.5-15.5) % Neutrophils # (Manual) (1.3-7.7) k/uL Metamyelocytes # (Man) (0) k/uL Myelocytes # (Manual) (0) k/uL Nucleated RBCs (0-0) /100 WBC Macrocytosis Sodium 135 L (137-145) mmol/L Potassium 3.4 L (3.5-5.1) mmol/L Chloride 108 H (98-107) mmol/L Creatinine 0.52 L (0.66-1.25) mg/dL Glucose (74-99) mg/dL POC Glucose (mg/dL) 100 H (75-99) mg/dL Calcium 7.2 L (8.4-10.2) mg/dL Total Bilirubin 5.5 H (0.2-1.3) mg/dL AST 385 H (17-59) U/L ALT 125 H (4-49) U/L Alkaline Phosphatase 175 H (38-126) U/L Ammonia 32 H (<30) umol/L Total Protein 5.0 L (6.3-8.2) g/dL Total Protein (PEP) (6.2-8.2) g/dL Albumin 2.2 L (3.5-5.0) g/dL Microbiology - Last 24 Hours (Table) 05/25/19 05:10 Blood Culture - Preliminary Blood No Growth after 48 hours 05/24/19 17:21 Blood Culture - Preliminary Blood No Growth after 48 hours 05/23/19 03:22 Blood Culture - Final Blood Assessment and Plan Plan: 1 acute hypoxic respiratory failure with suspected left lower lobe pneumonia, stable MR recovering 2 acute E. coli sepsis and the exact source is not clear. Consider aspiration pneumonia. Consider intra-abdominal source with translocation of bacteria. Gallbladder shows no evidence of any cholecystitis. No significant ascites. Spontaneous bacterial peritonitis is felt to be less likely. Urinary sources cannot be completely excluded. The blood cultures will be repeated. Results are still pending for now. Meanwhile, the patient's neck against also improved. Tachycardia is improved. The IV Rocephin. Patient is less tachycardic. The patient is hemodynamically stable. Subsequent blood cultures of been negative. 3 alcoholism with acute alcohol intoxication, improved 4 acute alcoholic hepatitis, LFTs are still abnormal, improving slowly 5 massive hepatomegaly and abdominal distention with minimal ascites 6 jaundice 7 sinus tachycardia, improving 8 acute lactic acidosis secondary to above, improving and the lactic acid level is down to 2 9 abdominal distention, mainly secondary to hepatomegaly, and there is also a component of ileus/small bowel distention/ileus 10 smoker 11 PTSD 12 leukocytosis, likely reactive, improving 13 motor weakness and unsteady gait 14 abdominal distention mainly due to hepatomegaly and addition to a component of small bowel ileus Plan Maintenance IV fluids to be dropped to 50 mL an hour Continue IV Rocephin Continue oral Protonix Diet to be advanced GI to comment on the positive anti-smooth muscle and antimitochondrial antibodies. Continue the prednisone for now We'll follow him on the patient can be transferred to a medical floor for the time being. Transfer to a medical floor
[2019-05-27 10:29] VITALS: BMI 30.9
[2019-05-27 11:50] LABS: Glucose,Whole Blood 123 mg/dL (75-99)
--- NOTE | 2019-05-27 13:00 | ECHOF ---
Referral Reason:tachycardia MEASUREMENTS -------- HEIGHT: 182.9 cm WEIGHT: 103.4 kg BP: 121/75 RVIDd: 4.0 cm (< 3.3) IVSd: 1.2 cm (0.6 - 1.1) LVIDd: 3.6 cm (3.9 - 5.3) LVPWd: 1.3 cm (0.6 - 1.1) IVSs: 1.5 cm LVIDs: 2.5 cm LVPWs: 1.8 cm LA Diam: 4.3 cm (2.7 - 3.8) LAESV Index (A-L): 33.62 ml/m Ao Diam: 3.0 cm (2.0 - 3.7) AV Cusp: 1.8 cm (1.5 - 2.6) MV EXCURSION: 25.336 mm (> 18.000) MV EF SLOPE: 212 mm/s (70 - 150) EPSS: 0.3 cm MV E Peter: 0.85 m/s MV DecT: 134 ms MV A Peter: 0.83 m/s MV E/A Ratio: 1.02 RAP: 5.00 mmHg RVSP: 18.28 mmHg FINDINGS -------- Sinus rhythm. This was a techncally difficult study with suboptimal views, , Lumason utilized for enhancement of im ages. The left ventricular size is normal. There is mild concentric left ventricular hypertrophy. Overa ll left ventricular systolic function is normal with, an EF between 55 - 60 %. The diastolic fillin g pattern is normal for the age of the patient 9.27. The right ventricle is normal in size. The left atrium is mildly dilated. LA is midly dilated 29-33ml/m2. The right atrial size is normal. 5.0mg OF Lumason UTLIZED: 2 OR MORE WALL SEGMENTS NOT VISUALIZED. There is mild aortic valve sclerosis. There is no evidence of aortic regurgitation. Mild mitral annular calcification present. Mild mitral regurgitation is present. Mild tricuspid regurgitation present. Right ventricular systolic pressure is normal at < 35 mmHg. There is no evidence of pulmonary hypertension. There is no pulmonic regurgitation present. The aortic root size is normal. There is no pericardial effusion. CONCLUSIONS -------- 1. Sinus rhythm. 2. This was a techncally difficult study with suboptimal views, , Lumason utilized for enhancement of images. 3. The left ventricular size is normal. 4. There is mild concentric left ventricular hypertrophy. 5. Overall left ventricular systolic function is normal with, an EF between 55 - 60 %. 6. The diastolic filling pattern is normal for the age of the patient 9.27 7. The right ventricle is normal in size. 8. The left atrium is mildly dilated. 9. LA is midly dilated 29-33ml/m2. 10. The right atrial size is normal. 11. 5.0mg OF Lumason UTLIZED: 2 OR MORE WALL SEGMENTS NOT VISUALIZED. 12. There is mild aortic valve sclerosis. 13. Mild mitral annular calcification present. 14. Mild mitral regurgitation is present. 15. Mild tricuspid regurgitation present. 16. Right ventricular systolic pressure is normal at < 35 mmHg. 17. There is no evidence of pulmonary hypertension. 18. There is no pulmonic regurgitation present. 19. The aortic root size is normal. 20. There is no pericardial effusion. QUALITY IMPROVEMENT MANAGER: Mami Hernandez RDCS
--- NOTE | 2019-05-27 14:13 | P.DS ---
Providers Date of admission: 05/23/19 06:17 Expected date of discharge: 05/27/19 Attending physician: Jeanine Guzman Consults: 05/23/19 06:17 Consult Physician Stat Consulting Provider: Marcin Awan Consult Reason/Comments: ICU management Do you want consulting provider notified?: Yes 05/23/19 17:55 Consult Physician Urgent Consulting Provider: Fei Dubon Consult Reason/Comments: ETOH, hepatomegaly Do you want consulting provider notified?: Yes Primary care physician: [facility] Hospital Course: Final diagnosis -Severe sepsis with lactic acidosis: Secondary to aspiration pneumonia -Acute hypoxic respiratory failure secondary to left lower lobe pneumonia -Sinus tachycardia can be related to intravascular depletion and also sepsis -Nicotine abuse history: Counseling provided -Alcohol abuse: Counseling provided -Alcohol withdrawals -Acute alcoholic hepatitis -Hypovolemic hyponatremia -Lactic acidosis secondary to sepsis -PTSD -DVT prophylaxis -GI prophylaxis Discharge disposition Patient is being discharged in a stable condition with guarded prognosis to home and will follow-up with the [facility] as scheduled on Thursday. Patient will continue with Aldactone 50 mg daily and will continue with short course of oral antibiotics in the form of Ceftin twice daily for the next 10 days. Time taken is 35 minutes. History of present illness Patient is admitted for aspiration pneumonia left-sided and alcohol withdrawals. Patient is tachycardic start him on metoprolol. Patient will be continued on IV fluids and Lasix will discuss your patient doesn't have any ascites patient abdomen is tympanic may have mild ascites which is not clinically appreciable. I'll obtain abdominal x-ray patient did have good bowel movements yesterday. Patient is presently on Zosyn. Patient didn't receive any Ativan today. 05/25/2019 Patient's blood cultures are positive for E. coli which is pansensitive patient will be switched to Rocephin 2 g daily. His saturations are bit was I'll obtain a chest x-ray to rule out any pulmonary edema. Patient probably has gram- negative pneumonia. Patient does have a significant ascites because of which I'm not starting him on any diuretics diuretic will continue to hold the diuretic therapy. Patient is to have elevated bilirubin although cannot completely exclude cirrhosis, patient most probably has severe alcoholic hepatitis Constitutional: Patient feels tired fatigued Cardio vascular: denied any chest pain, palpitations Gastrointestinal denied any nausea vomiting Pulmonary: Denied any shortness of breath cough Neurologic denied any new focal deficits 05/26/2019 Patient is currently lying in bed in the ICU and being closely monitored. Patient is awaiting transfer to a MedSur unit at this time. Patient states that he feels slightly better and was up walking with physical therapy today. Patient felt short of breath and was placed back on 3 L oxygen via nasal cannula. Patient is currently maintained on IV antibiotics in the form of Rocephin and will continue at this time. Pulmonary and GI are following. Liver functions and bilirubin continue to be elevated and her being closely monitored. Currently patient denies any chest pain or palpitations. This morning patient is afebrile. Patient denies any nausea or vomiting and is tolerating diet. 05/27/2019 Patient currently remains in the ICU awaiting a MedSurg bed with none available at this time. Patient has been up and walking the unit and to the bathroom with no difficulties. Patient is currently on room air and saturating well with no reports of shortness of breath. Patient states that he is fatigued otherwise feels slightly better. Patient states that he is eating with no reports of nausea or vomiting and the diarrhea has subsided. Liver functions continue to be elevated but have been trending down and will continue to follow in the outpatient setting as patient will need repeat labs in a few days. Patient will follow-up with primary care provider along with Toma owens with GI in the outpatient setting in 2-3 weeks. Discussed with the patient at length about avoiding any and all alcohol intake and also avoiding tobacco use. Patient underwent an echo today showing overall left ventricular systolic function is normal with an EF between 55 and 60%. [facility] Patient will continue with a short course of oral antibiotics in the form of Ceftin twice daily for the next 10 days. On exam vital signs are stable. Temp is 97.5F, pulse is 98, respirations are 18, blood pressure is 121/75, oxygen saturation is 96% on room air. Cardio S1, S2 are present. Respiratory system shows diminished breath sounds at the bases with some mild expiratory wheezing noted. Abdomen is soft and nontender. Nervous system shows no focal deficits. Please refer to medication reconciliation sheet for a list of medications. Patient Condition at Discharge: Critical Plan - Discharge Summary Discharge Rx Participant: Yes New Discharge Prescriptions: New Spironolactone [Aldactone] 50 mg PO DAILY 30 Days #30 tab Sucralfate [Carafate] 1 gm PO AC-TID #21 tab Cefuroxime Axetil [Ceftin] 500 mg PO BID 10 Days #20 tab Metoprolol Tartrate [Lopressor] 25 mg PO BID 30 Days #60 tab predniSONE 10 mg PO DIRECTED #30 tab Pantoprazole [Protonix] 40 mg PO AC-BID 30 Days #60 tablet. Thiamine [Vitamin B-1] 100 mg PO BID-W/MEALS 30 Days #60 tab Discharge Medication List Cefuroxime Axetil [Ceftin] 500 mg PO BID 10 Days #20 tab 05/27/19 [Rx] Metoprolol Tartrate [Lopressor] 25 mg PO BID 30 Days #60 tab 05/27/19 [Rx] Pantoprazole [Protonix] 40 mg PO AC-BID 30 Days #60 tablet. 05/27/19 [Rx] Spironolactone [Aldactone] 50 mg PO DAILY 30 Days #30 tab 05/27/19 [Rx] Sucralfate [Carafate] 1 gm PO AC-TID #21 tab 05/27/19 [Rx] Thiamine [Vitamin B-1] 100 mg PO BID-W/MEALS 30 Days #60 tab 05/27/19 [Rx] predniSONE 10 mg PO DIRECTED #30 tab 05/27/19 [Rx] Follow up Appointment(s)/Referral(s): Toma Owens NPC [Nurse Practitioner] - 2 Weeks Fei Dubon MD [STAFF PHYSICIAN] - 2 Weeks [facility]Clinic [Primary Care Provider] - 1-2 days Ambulatory/Diagnostic Orders: ALT [LAB.AMB] Time Frame: 3 Days, Location: None Selected AST [LAB.AMB] Time Frame: 3 Days, Location: None Selected Basic Metabolic Panel [LAB.AMB] Time Frame: 3 Days, Location: None Selected Complete Blood Count w/diff [LAB.AMB] Time Frame: 3 Days, Location: None Selected Total Bilirubin [LAB.AMB] Time Frame: 3 Days, Location: None Selected Patient Instructions/Handouts: Cirrhosis (DC), Sepsis (GEN) Activity/Diet/Wound Care/Special Instructions: Fax dc medicaiton list to [facility] Activity Limited until follow-up Continue current diet Continue with medications as prescribed Follow-up with primary care provider upon discharge Follow-up with GI Avoid all alcohol intake Avoid all tobacco use Discharge Disposition: HOME SELF-CARE
[2019-05-27 14:26] LABS: Albumin 2.44 g/dL (3.80-4.90)
[2019-05-27 14:48] VITALS: PULSE 84; RESP 16; TEMP 97.7
--- NOTE | 2019-06-01 07:28 | CDI ---
Documentation Clarification Form Date: 06/01/19 From: Kita Angel Phone: If you have a question about this query, please contact Salima Titus, Dermatology Technician at [phone] between 8am and 5pm. Admit Date: 05/23/19 Discharge Date:05/27/19 Patient Name: Thanh Benitez Visit Number: [id number] ATTENTION: The Clinical Documentation Specialists (CDI) and [facility] Coding Staff appreciate your assistance in clarifying documentation. Please respond to the clarification below the line at the bottom and electronically sign. The CDI & [facility] Coding staff will review the response and follow-up if needed. Please note: Queries are made part of the Legal Health Record. If you have any questions, please contact the author of this message via ITS. Dear Dr. Becerra Documentation and the location in the medical record include: Alcohol abuse and alcohol withdrawals is documented in the H&P, discharge summary and your progress notes. Alcoholism with acute alcohol intoxication is documented in Dr. Florez's progress notes. Dr. Dubon documented that the patient has a history of alcoholism and has acute aloholic hepatitis. History/Risk Factors: Drinks on fifth of alcohol daily on a daily basis Clinical Indicators: Elevated serum alcohol, alcohol withdrawals Labs: Blood alcohol 128, Treatment: [facility] protocol, Alcohol use counseling In your professional opinion, can you please clarify if the above clinical indicators and treatment signify any of the following? Alcohol dependence Alcohol abuse Other, please specify Unable to determine Appropriate documentation was already done and this query is not necessary [facility]
== END 2019-05-27 15:03 | disposition home or self-care (01) | DRG 871 ==
LOC: EC 03:00 → 2SICU 06:17
PROVIDERS: ADMIT Hospitalist; ATTEND Hospitalist
DX: A41.51 Sepsis due to Escherichia coli [E. coli] (principal); J69.0 Pneumonitis due to inhalation of food and vomit; J96.01 Acute respiratory failure with hypoxia; E87.1 Hypo-osmolality and hyponatremia; J90 Pleural effusion, not elsewhere classified; J98.11 Atelectasis; E87.2 Acidosis; R65.20 Severe sepsis without septic shock; K70.11 Alcoholic hepatitis with ascites; F10.129 Alcohol abuse with intoxication, unspecified; E78.5 Hyperlipidemia, unspecified; E86.1 Hypovolemia; F17.200 Nicotine dependence, unspecified, uncomplicated; F43.10 Post-traumatic stress disorder, unspecified; K21.9 Gastro-esophageal reflux disease without esophagitis; R19.7 Diarrhea, unspecified; Z79.52 Long term (current) use of systemic steroids; Z79.899 Other long term (current) drug therapy; Z88.6 Allergy status to analgesic agent; Z80.0 Family history of malignant neoplasm of digestive organs; W19.XXXA Unspecified fall, initial encounter
CPT/HCPCS: 36415; 36600; 71045; 71046; 71275; 74018; 76705; 80053; 80074; 80320; 81001; 82103; 82105; 82140; 82390; 82728; 82805; 83516; 83540; 83550; 83605; 83615; 83735; 84100; 84145; 84165; 84484; 85025; 85045; 85610; 85730; 86038; 86376; 87040; 87077; 87086; 87186; 87324; 87502; 93005; 93306; 94760; 96360; 96361; 96365; 96367; 96372; 96375; 99291

== ENCOUNTER 2021-05-29 21:11 | Emergency (ER) | payer OTHER ==
[2021-05-29 21:20] VITALS: RESP 18; TEMP 98.2
[2021-05-29] MEDS ORDERED: MULTIVITAMINS, THERA 1 EACH TAB PO STA (21:24)
[2021-05-29] MEDS ORDERED: SODIUM CHLORIDE 0.9% 500 ML 500 ML IV STA (21:24)
[2021-05-29] MEDS ORDERED: THIAMINE 100 MG/ML 2 ML VIAL IM ONE (21:30)
[2021-05-29] MEDS ORDERED: FOLIC ACID 1 MG TAB PO ONE (21:30)
[2021-05-29 21:41] LABS: Basophils # (A) 0.1 k/uL (0-0.2); Basophils % (A) 1 %; Eosinophils # (A) 0.2 k/uL (0-0.7); Eosinophils % (A) 2 %; HCT 46.8 % (39.0-53.0); HGB 15.6 gm/dL (13.0-17.5); Lymphocytes % (A) 10 %; MCH 33.9 pg (25.0-35.0); MCHC 33.4 g/dL (31.0-37.0); MCV 101.5 fL (80.0-100.0); Macrocytosis Slight; Mean Platelet Volume 10.9; Monocytes # (A) 0.3 k/uL (0-1.0); Monocytes % (A) 4 %; Neutrophils # (A) 7.9 k/uL (1.3-7.7); Neutrophils % (A) 83 %; RBC 4.61 m/uL (4.30-5.90); RDW 15.3 % (11.5-15.5); WBC 9.5 k/uL (3.8-10.6)
[2021-05-29 21:47] LABS: INR 1.6 (<1.2); Prothrombin Time 16.6 sec (9.0-12.0)
[2021-05-29 21:51] LABS: ALT 52 U/L (4-49); AST 205 U/L (17-59); African American GFR (CKD) >90 (>60 ml/min/1.73 sqM); Albumin 3.7 g/dL (3.5-5.0); Alcohol <10 mg/dL; Alkaline Phosphatase 255 U/L (38-126); Amylase 42 U/L (30-110); Anion Gap 13 mmol/L; Blood Urea Nitrogen 4 mg/dL (9-20); Calcium 7.7 mg/dL (8.4-10.2); Carbon Dioxide 20 mmol/L (22-30); Chloride 100 mmol/L (98-107); Glucose 101 mg/dL (74-99); Lipase 90 U/L (23-300); Magnesium 1.1 mg/dL (1.6-2.3); Non-African American GFR(CKD) >90 (>60 ml/min/1.73 sqM); Potassium 3.4 mmol/L (3.5-5.1); Sodium 133 mmol/L (137-145); Total Bilirubin 3.3 mg/dL (0.2-1.3)
[2021-05-29 22:40] LABS: Platelet Count 55 k/uL (150-450); Target Cells Present
[2021-05-29] MEDS: MAGNESIUM SULFATE-D5W PMX 1 GM in DEXTROSE/WATER 1 100ML.BAG IVPB SCH (23:25)
--- NOTE | 2021-05-29 23:51 | ED ---
General Adult HPI - General Chief complaint: Neuro Symptoms/Deficit Stated complaint: numbness in hands & feet Time Seen by Provider: 05/29/21 21:12 Source: patient, EMS Mode of arrival: EMS Limitations: no limitations - History of Present Illness Initial comments: This patient is a 41-year-old man who presents to be evaluated for tingling sensation to the bilateral hands and feet. The patient states that he is not sure what he believes may be related to alcohol use. The patient states she had been a heavy drinker previously he had stopped drinking but then had gone back to it. -: days(s) Location: left, right, upper extremity, lower extremity Severity scale (1-10): 0 Consistency: constant Improves with: none Worsens with: none Associated Symptoms: denies other symptoms Treatments Prior to Arrival: none - Related Data Previous Rx's Medication Instructions Recorded Magnesium Oxide [Mag-Ox] 400 mg PO DAILY #30 tablet 05/29/21 Thiamine [Vitamin B-1] 100 mg PO DAILY #30 tablet 05/29/21 Allergies Allergy/AdvReac Type Severity Reaction Status Date / Time ibuprofen [From Motrin] Allergy Swelling Verified 05/29/21 22:14 Review of Systems ROS Statement: Those systems with pertinent positive or pertinent negative responses have been documented in the HPI. ROS Other: All systems not noted in ROS Statement are negative. Constitutional: Denies: fever, chills, weakness Respiratory: Denies: cough, dyspnea Cardiovascular: Denies: chest pain, palpitations, edema Gastrointestinal: Denies: abdominal pain, vomiting, diarrhea Genitourinary: Denies: dysuria, hematuria Musculoskeletal: Denies: back pain Skin: Denies: rash Neurological: Reports: as per HPI, paresthesias. Denies: headache, weakness, numbness Past Medical History Past Medical History: Liver Disease Additional Past Medical History / Comment(s): Alcoholism, past withdrawals with tremors/diaphoresis, elevated LFTs, occasional upper back pain. The patient also has a and he has history of PTSD History of Any Multi-Drug Resistant Organisms: None Reported Past Surgical History: No Surgical Hx Reported Additional Past Surgical History / Comment(s): Pt states he has never had devine rgery Past Anesthesia/Blood Transfusion Reactions: Unable to Obtain Additional Past Anesthesia/Blood Transfusion Reaction / Comment(s): Pt states he has never had surgery. Past Psychological History: No Psychological Hx Reported Smoking Status: Current every day smoker Past Alcohol Use History: Abuse, Heavy Past Drug Use History: None Reported - Past Family History Mother Family Medical History: Cancer Additional Family Medical History / Comment(s): Mother has colon cancer. Father History Unknown: Yes Additional Family Medical History / Comment(s): All pt knows about his father is that he is . General Exam Limitations: no limitations General appearance: alert, in no apparent distress Head exam: Present: atraumatic, normocephalic Eye exam: Present: normal appearance. Absent: scleral icterus, conjunctival injection ENT exam: Present: mucous membranes dry Neck exam: Present: normal inspection Respiratory exam: Present: normal lung sounds bilaterally. Absent: respiratory distress, wheezes, rales, rhonchi, stridor Cardiovascular Exam: Present: regular rate, normal rhythm, normal heart sounds. Absent: systolic murmur, diastolic murmur, rubs, gallop GI/Abdominal exam: Present: soft, organomegaly (Mild hepatomegaly). Absent: distended, tenderness, guarding, rebound, rigid, mass Extremities exam: Present: normal inspection, normal capillary refill. Absent: pedal edema, calf tenderness Back exam: Present: normal inspection Neurological exam: Present: alert, oriented X3. Absent: motor sensory deficit Skin exam: Present: warm, dry, intact, normal color, rash (There is diffuse dermatitis) Course Vital Signs 05/29/21 05/29/21 21:17 23:25 Temperature 98.2 F Pulse Rate 90 90 Respiratory 18 18 Rate Blood Pressure 146/94 141/82 O2 Sat by Pulse 97 98 Oximetry Medical Decision Making - Lab Data Result diagrams: 05/29/21 21:35 05/29/21 21:35 Lab Results 05/29/21 05/29/21 05/29/21 Range/Units 21:35 21:35 21:35 WBC 9.5 (3.8-10.6) k/uL RBC 4.61 (4.30-5.90) m/uL Hgb 15.6 (13.0-17.5) gm/dL Hct 46.8 (39.0-53.0) % MCV 101.5 H (80.0-100.0) fL MCH 33.9 (25.0-35.0) pg MCHC 33.4 (31.0-37.0) g/dL RDW 15.3 (11.5-15.5) % Plt Count 55 L (150-450) k/uL MPV 10.9 Neutrophils % 83 % Lymphocytes % 10 % Monocytes % 4 % Eosinophils % 2 % Basophils % 1 % Neutrophils # 7.9 H (1.3-7.7) k/uL Lymphocytes # 1.0 (1.0-4.8) k/uL Monocytes # 0.3 (0-1.0) k/uL Eosinophils # 0.2 (0-0.7) k/uL Basophils # 0.1 (0-0.2) k/uL Manual Slide Review Performed Macrocytosis Slight Target Cells Present PT 16.6 H (9.0-12.0) sec INR 1.6 H (<1.2) Sodium 133 L (137-145) mmol/L Potassium 3.4 L (3.5-5.1) mmol/L Chloride 100 (98-107) mmol/L Carbon Dioxide 20 L (22-30) mmol/L Anion Gap 13 mmol/L BUN 4 L (9-20) mg/dL Creatinine 0.47 L (0.66-1.25) mg/dL Est GFR (CKD-EPI)AfAm >90 (>60 ml/min/1.73 sqM) Est GFR (CKD-EPI)NonAf >90 (>60 ml/min/1.73 sqM) Glucose 101 H (74-99) mg/dL Calcium 7.7 L (8.4-10.2) mg/dL Magnesium 1.1 L (1.6-2.3) mg/dL Total Bilirubin 3.3 H (0.2-1.3) mg/dL AST 205 H (17-59) U/L ALT 52 H (4-49) U/L Alkaline Phosphatase 255 H (38-126) U/L Total Protein 8.0 (6.3-8.2) g/dL Albumin 3.7 (3.5-5.0) g/dL Amylase 42 (30-110) U/L Lipase 90 (23-300) U/L Serum Alcohol <10 mg/dL Disposition Clinical Impression: Alcoholic peripheral neuropathy Disposition: HOME SELF-CARE Condition: Good Instructions (If sedation given, give patient instructions): Peripheral Neuropathy (ED) Prescriptions: Magnesium Oxide [Mag-Ox] 400 mg PO DAILY #30 tablet Thiamine [Vitamin B-1] 100 mg PO DAILY #30 tablet Is patient prescribed a controlled substance at d/c from ED?: No Referrals: [facility],Clinic [Primary Care Provider] - 1-2 days
[2021-05-30] MEDS: MAGNESIUM SULFATE-D5W PMX 1 GM in DEXTROSE/WATER 1 100ML.BAG IVPB SCH (00:35)
[2021-05-30 01:56] VITALS: BP 135/77; PULSE 93
== END 2021-05-30 01:55 | disposition home or self-care (01) ==
LOC: EC 21:11
DX: G62.1 Alcoholic polyneuropathy (principal); F17.200 Nicotine dependence, unspecified, uncomplicated; Z88.6 Allergy status to analgesic agent
CPT/HCPCS: 99284; 96365; 96361 ×3; 96372; 36415; 80053; 82150; 83690; 83735; 85025; 85610; 80320; J3411; J3475 ×2

== ENCOUNTER 2021-08-10 14:54 | Emergency (ER) | payer OTHER ==
[2021-08-10] MEDS ORDERED: ONDANSETRON 4 MG/2 ML VIAL IVP STA (15:12)
[2021-08-10] MEDS ORDERED: SODIUM CHLORIDE 0.9% 1,000 ML IV ONE (15:12)
[2021-08-10] MEDS ORDERED: LORazepam 2 MG/ML INJ IV STA (15:12)
[2021-08-10 15:44] LABS: INR 1.4 (<1.2); Partial Thromboplastin Time 28.8 sec (22.0-30.0); Prothrombin Time 14.7 sec (9.0-12.0)
[2021-08-10 15:45] LABS: Anisocytosis Slight; Basophils # (A) 0.1 k/uL (0-0.2); Basophils % (A) 1 %; Eosinophils # (A) 0.1 k/uL (0-0.7); Eosinophils % (A) 1 %; HCT 50.9 % (39.0-53.0); HGB 16.8 gm/dL (13.0-17.5); Lymphocytes # (A) 1.7 k/uL (1.0-4.8); Lymphocytes % (A) 16 %; MCH 35.6 pg (25.0-35.0); MCHC 33.1 g/dL (31.0-37.0); MCV 107.4 fL (80.0-100.0); Macrocytosis Marked; Mean Platelet Volume 9.8; Monocytes # (A) 0.4 k/uL (0-1.0); Monocytes % (A) 4 %; Neutrophils # (A) 8.3 k/uL (1.3-7.7); Neutrophils % (A) 78 %; Platelet Count 108 k/uL (150-450); RBC 4.74 m/uL (4.30-5.90); RDW 16.8 % (11.5-15.5); WBC 10.7 k/uL (3.8-10.6)
[2021-08-10 15:52] LABS: ALT 59 U/L (4-49); AST 276 U/L (17-59); African American GFR (CKD) >90 (>60 ml/min/1.73 sqM); Albumin 3.5 g/dL (3.5-5.0); Alkaline Phosphatase 278 U/L (38-126); Anion Gap 12 mmol/L; Blood Urea Nitrogen 4 mg/dL (9-20); Calcium 7.6 mg/dL (8.4-10.2); Carbon Dioxide 23 mmol/L (22-30); Chloride 104 mmol/L (98-107); Glucose 114 mg/dL (74-99); Lipase 110 U/L (23-300); Magnesium 1.8 mg/dL (1.6-2.3); Non-African American GFR(CKD) >90 (>60 ml/min/1.73 sqM); Potassium 3.5 mmol/L (3.5-5.1); Sodium 139 mmol/L (137-145); Total Bilirubin 3.7 mg/dL (0.2-1.3); Total Protein 8.2 g/dL (6.3-8.2)
--- NOTE | 2021-08-10 15:55 | ED ---
Alcohol HPI - General Chief Complaint: Alcohol Stated Complaint: withdrawals Time Seen by Provider: 08/10/21 15:01 Source: patient, EMS, RN notes reviewed Mode of arrival: EMS Limitations: no limitations - History of Present Illness Initial Comments: 41-year-old male presents emergency Department chief complaint of alcohol abuse. Patient states he uses alcohol daily at least 1/5 of alcohol daily. Patient states that he has liver cirrhosis, chronic liver changes states that he feels like he is withdrawn day today started having nausea, unable to drink much alcohol. He did drink alcohol prior arrival. He had mild shakes no seizure. No chest pain or shortness of breath. Patient denies any chest pain or shortness breath no dysuria no hematuria no melanotic stools. - Related Data Previous Rx's Medication Instructions Recorded Magnesium Oxide [Mag-Ox] 400 mg PO DAILY #30 tablet 05/29/21 Thiamine [Vitamin B-1] 100 mg PO DAILY #30 tablet 05/29/21 Ondansetron Odt [Zofran Odt] 4 mg PO Q8HR PRN #10 tab 08/10/21 Allergies Allergy/AdvReac Type Severity Reaction Status Date / Time ibuprofen [From Motrin] Allergy Swelling Verified 08/10/21 14:59 Review of Systems ROS Statement: Those systems with pertinent positive or pertinent negative responses have been documented in the HPI. ROS Other: All systems not noted in ROS Statement are negative. Past Medical History Past Medical History: Hyperlipidemia, Hypertension, Liver Disease Additional Past Medical History / Comment(s): Alcoholism, past withdrawals with tremors/diaphoresis, elevated LFTs, occasional upper back pain. The patient also has a and he has history of PTSD History of Any Multi-Drug Resistant Organisms: None Reported Past Surgical History: No Surgical Hx Reported Additional Past Surgical History / Comment(s): Pt states he has never had surgery Past Anesthesia/Blood Transfusion Reactions: Unable to Obtain Additional Past Anesthesia/Blood Transfusion Reaction / Comment(s): Pt states he has never had surgery. Past Psychological History: No Psychological Hx Reported Smoking Status: Current every day smoker Past Alcohol Use History: Abuse, Heavy Past Drug Use History: None Reported - Past Family History Mother Family Medical History: Cancer Additional Family Medical History / Comment(s): Mother has colon cancer. Father History Unknown: Yes Additional Family Medical History / Comment(s): All pt knows about his father is that he is . General Exam Limitations: no limitations General appearance: alert, in no apparent distress Head exam: Present: atraumatic, normocephalic, normal inspection Neck exam: Present: normal inspection. Absent: tenderness, meningismus, lymphadenopathy Respiratory exam: Present: normal lung sounds bilaterally. Absent: respiratory distress, wheezes, rales, rhonchi, stridor Cardiovascular Exam: Present: regular rate, normal rhythm, normal heart sounds. Absent: systolic murmur, diastolic murmur, rubs, gallop, clicks GI/Abdominal exam: Present: soft, normal bowel sounds. Absent: distended, tenderness, guarding, rebound, rigid Back exam: Absent: CVA tenderness (R), CVA tenderness (L) Neurological exam: Present: alert, oriented X3 Course Vital Signs 08/10/21 14:55 Temperature 98.5 F Pulse Rate 99 Respiratory 18 Rate Blood Pressure 147/91 O2 Sat by Pulse 94 L Oximetry Medical Decision Making - Medical Decision Making 41-year-old male presented from it for alcohol abuse, nausea. Patient states he does feel improved. Patient has liver cirrhosis which is notable patient bilirubin, liver function tests similar to prior. Patient states she does not plan 7 drinking a dose rehab. Patient right rehab resources. Patient has no significant withdrawal symptoms at this time. Patient is awake alert and oriented 4 patient will be discharged in stable condition return parameters were discussed. - Lab Data Result diagrams: 08/10/21 15:22 08/10/21 15:22 Lab Results 08/10/21 08/10/21 08/10/21 Range/Units :22 15:22 15:22 WBC 10.7 H (3.8-10.6) k/uL RBC 4.74 (4.30-5.90) m/uL Hgb 16.8 (13.0-17.5) gm/dL Hct 50.9 (39.0-53.0) % MCV 107.4 H (80.0-100.0) fL MCH 35.6 H (25.0-35.0) pg MCHC 33.1 (31.0-37.0) g/dL RDW 16.8 H (11.5-15.5) % Plt Count 108 L (150-450) k/uL MPV 9.8 Neutrophils % 78 % Lymphocytes % 16 % Monocytes % 4 % Eosinophils % 1 % Basophils % 1 % Neutrophils # 8.3 H (1.3-7.7) k/uL Lymphocytes # 1.7 (1.0-4.8) k/uL Monocytes # 0.4 (0-1.0) k/uL Eosinophils # 0.1 (0-0.7) k/uL Basophils # 0.1 (0-0.2) k/uL Manual Slide Review Performed Anisocytosis Slight Macrocytosis Marked A PT 14.7 H (9.0-12.0) sec INR 1.4 H (<1.2) APTT 28.8 (22.0-30.0) sec Sodium 139 (137-145) mmol/L Potassium 3.5 (3.5-5.1) mmol/L Chloride 104 (98-107) mmol/L Carbon Dioxide 23 (22-30) mmol/L Anion Gap 12 mmol/L BUN 4 L (9-20) mg/dL Creatinine 0.53 L (0.66-1.25) mg/dL Est GFR (CKD-EPI)AfAm >90 (>60 ml/min/1.73 sqM) Est GFR (CKD-EPI)NonAf >90 (>60 ml/min/1.73 sqM) Glucose 114 H (74-99) mg/dL Calcium 7.6 L (8.4-10.2) mg/dL Magnesium 1.8 (1.6-2.3) mg/dL Total Bilirubin 3.7 H (0.2-1.3) mg/dL AST 276 H (17-59) U/L ALT 59 H (4-49) U/L Alkaline Phosphatase 278 H (38-126) U/L Total Protein 8.2 (6.3-8.2) g/dL Albumin 3.5 (3.5-5.0) g/dL Lipase 110 (23-300) U/L Serum Alcohol 178 mg/dL Disposition Clinical Impression: Acute alcoholic hepatitis, Alcohol abuse, Ascites Disposition: HOME SELF-CARE Condition: Stable Instructions (If sedation given, give patient instructions): Alcohol Withdrawal (ED) Additional Instructions: Contact [place] for rehab. Please return to the Emergency Department if symptoms worsen or any other concerns. Prescriptions: Ondansetron Odt [Zofran Odt] 4 mg PO Q8HR PRN #10 tab PRN Reason: Nausea Is patient prescribed a controlled substance at d/c from ED?: No Referrals: [facility],Clinic [Primary Care Provider] - 1-2 days Time of Disposition: 16:38
[2021-08-10 16:15] LABS: Alcohol 178 mg/dL
[2021-08-10 17:40] VITALS: BP 139/80; PULSE 89; RESP 17; TEMP 98.1
== END 2021-08-10 17:40 | disposition home or self-care (01) ==
LOC: EC 14:54
DX: R11.10 Vomiting, unspecified (principal); Z88.6 Allergy status to analgesic agent; I10 Essential (primary) hypertension
CPT/HCPCS: 36415; 80053; 83690; 83735; 85025; 85610; 85730; 80320; 99285; 96374; 96375; 96361; J2060; J2405

== ENCOUNTER → 2021-09-11 | Outpatient (CLI) | payer OTHER ==
--- NOTE | 2021-09-11 17:12 | US ---
EXAMINATION TYPE: US liver DATE OF EXAM: 09/11/2021 COMPARISON: NONE CLINICAL HISTORY: F10.10 ALCOHOL ABUSE. known alcohol abuse, cirrhosis EXAM MEASUREMENTS: Liver Length: 23.7 cm. Normal less than 15.5 cm. Gallbladder Wall: 0.4 cm CBD: 0.5 cm Right Kidney: 11.4 x 5.3 x 5.6 cm Pancreas: not seen due to bowel gas and habitus Liver: nodular and enlarged, difficult to penetrate Gallbladder: sludge filled with borderline wall Evidence for sonographic Ricardo's sign: no CBD: wnl Right Kidney: wnl IMPRESSION: 1. Ascites is present. 2. Sludge-filled gallbladder. 3. Hepatomegaly
== END | disposition home or self-care (01) ==
LOC: RADUSWWP 09:50
DX: K82.8 Other specified diseases of gallbladder (principal); R18.8 Other ascites; R16.0 Hepatomegaly, not elsewhere classified; F10.10 Alcohol abuse, uncomplicated
CPT/HCPCS: 76705

== ENCOUNTER 2021-09-17 02:29 | Inpatient (IN) | payer OTHER ==
[2021-09-17] MEDS ORDERED: MORPHINE SULFATE 4 MG/ML SYRINGE IV STA (02:32)
[2021-09-17] MEDS ORDERED: ONDANSETRON 4 MG/2 ML VIAL IVP STA (02:32)
[2021-09-17] MEDS ORDERED: SODIUM CHLORIDE 0.9% 1,000 ML IV STA (02:32)
[2021-09-17] MEDS ORDERED: SODIUM CHLORIDE 0.9% 500 ML 500 ML IV STA (02:32)
--- NOTE | 2021-09-17 02:47 | ED ---
Abdominal Pain HPI - General Chief Complaint: Abdominal Pain Stated Complaint: Flank Pain Time Seen by Provider: 09/17/21 02:32 Source: EMS, RN notes reviewed, old records reviewed Mode of arrival: EMS Limitations: no limitations - History of Present Illness Initial Comments: This is a 41-year-old male DF for evaluation. Patient has a history of PTSD w ith recent history of alcohol abuse. Greater than a few years. Patient has known liver failure or cirrhosis. Significant ascites no prior evaluation for paracentesis patient coming in for severe abdominal pain weakness fatigue and occasionally confused or altered mental status. Patient states last drink was about 6 months ago she also several from high blood pressure high cholesterol MD Complaint: abdominal pain -: month(s) Location: diffuse Radiation: none Migration to: periumbilical, epigastric, suprapubic, bilateral flank Severity: severe Severity scale (1-10): 9 Quality: cramping, aching, fullness Consistency: constant Improves With: nothing Worsens With: nothing Associated Symptoms: nausea, diarrhea Treatments Prior to Arrival: other (none) - Related Data Home Medications Medication Instructions Recorded Confirmed Folic Acid 1 mg PO DAILY 08/10/21 09/17/21 Previous Rx's Medication Instructions Recorded Magnesium Oxide [Mag-Ox] 400 mg PO DAILY #30 tablet 05/29/21 Thiamine [Vitamin B-1] 100 mg PO DAILY #30 tablet 05/29/21 Furosemide [Lasix] 40 mg PO DAILY 30 Days #30 tab 09/20/21 Lactulose [Cephulac] 30 gm PO TID 30 Days #2700 gm 09/20/21 Spironolactone [Aldactone] 50 mg PO BID 30 Days #120 tab 09/20/21 Allergies Allergy/AdvReac Type Severity Reaction Status Date / Time ibuprofen [From Motrin] Allergy Swelling Verified 09/17/21 06:46 Review of Systems ROS Statement: Those systems with pertinent positive or pertinent negative responses have been documented in the HPI. ROS Other: All systems not noted in ROS Statement are negative. Past Medical History Past Medical History: Hyperlipidemia, Hypertension, Liver Disease Additional Past Medical History / Comment(s): Alcoholism, past withdrawals with tremors/diaphoresis, elevated LFTs, occasional upper back pain. The patient also has a and he has history of PTSD History of Any Multi-Drug Resistant Organisms: None Reported Past Surgical History: No Surgical Hx Reported Additional Past Surgical History / Comment(s): Pt states he has never had surgery Past Anesthesia/Blood Transfusion Reactions: Unable to Obtain Additional Past Anesthesia/Blood Transfusion Reaction / Comment(s): Pt states he has never had surgery. Past Psychological History: No Psychological Hx Reported Smoking Status: Current every day smoker Past Alcohol Use History: Abuse, Heavy Past Drug Use History: None Reported - Past Family History Mother Family Medical History: Cancer Additional Family Medical History / Comment(s): Mother has colon cancer. Father History Unknown: Yes Additional Family Medical History / Comment(s): All pt knows about his father is that he is . General Exam General appearance: alert, in no apparent distress Head exam: Present: atraumatic, normocephalic, normal inspection Eye exam: Present: normal appearance, PERRL, EOMI. Absent: scleral icterus, conjunctival injection, periorbital swelling ENT exam: Present: normal exam, mucous membranes moist Neck exam: Present: normal inspection. Absent: tenderness, meningismus, lymphadenopathy Respiratory exam: Present: normal lung sounds bilaterally. Absent: respiratory distress, wheezes, rales, rhonchi, stridor Cardiovascular Exam: Present: regular rate, normal rhythm, normal heart sounds. Absent: systolic murmur, diastolic murmur, rubs, gallop, clicks GI/Abdominal exam: Present: soft, normal bowel sounds. Absent: distended, tenderness, guarding, rebound, rigid Extremities exam: Present: normal inspection, full ROM, normal capillary refill. Absent: tenderness, pedal edema, joint swelling, calf tenderness Back exam: Present: normal inspection Neurological exam: Present: alert, oriented X3, CN II-XII intact Psychiatric exam: Present: normal affect, normal mood Skin exam: Present: warm, dry, intact, normal color. Absent: rash Course Vital Signs 09/17/21 09/17/21 09/17/21 02:31 04:00 06:00 Temperature 99.1 F 99 F Pulse Rate 87 80 Respiratory 18 17 18 Rate Blood Pressure 126/87 111/85 120/77 O2 Sat by Pulse 94 L 98 97 Oximetry - Reevaluation(s) Reevaluation #1: 09/17/21 medical record is reviewed Patient symptoms improved here in the ER Patient informed results and questions answered - Consultations Consultation #1: Spoke with sound who agrees to admit this patient Medical Decision Making - Medical Decision Making 41 male DF for evaluation. Patient Dese for evaluation regards to severe abdominal pain weakness and fatigue with known liver failure. Patient does have elevated ammonia level severe ascites will admit for paracentesis therapeutic and diagnostic. - Lab Data Result diagrams: 09/19/21 11:24 09/19/21 11:24 Lab Results 09/17/21 09/17/21 09/17/21 Range/Units 02:48 02:48 02:48 WBC 15.3 H (3.8-10.6) k/uL RBC 4.40 (4.30-5.90) m/uL Hgb 15.9 (13.0-17.5) gm/dL Hct 47.6 (39.0-53.0) % MCV 108.2 H (80.0-100.0) fL MCH 36.1 H (25.0-35.0) pg MCHC 33.3 (31.0-37.0) g/dL RDW 15.5 (11.5-15.5) % Plt Count 195 D (150-450) k/uL MPV 9.0 Neutrophils % 78 % Lymphocytes % 13 % Monocytes % 6 % Eosinophils % 2 % Basophils % 1 % Neutrophils # 12.0 H (1.3-7.7) k/uL Lymphocytes # 2.0 (1.0-4.8) k/uL Monocytes # 0.9 (0-1.0) k/uL Eosinophils # 0.3 (0-0.7) k/uL Basophils # 0.1 (0-0.2) k/uL Manual Slide Review Performed Polychromasia Present Macrocytosis Marked A Sodium 133 L (137-145) mmol/L Potassium 3.8 (3.5-5.1) mmol/L Chloride 106 (98-107) mmol/L Carbon Dioxide 21 L (22-30) mmol/L Anion Gap 6 mmol/L BUN 8 L (9-20) mg/dL Creatinine 1.03 (0.66-1.25) mg/dL Est GFR (CKD-EPI)AfAm >90 (>60 ml/min/1.73 sqM) Est GFR (CKD-EPI)NonAf >90 (>60 ml/min/1.73 sqM) Glucose 119 H (74-99) mg/dL Plasma Lactic Acid Willam 1.5 (0.7-2.0) mmol/L Calcium 8.3 L (8.4-10.2) mg/dL Total Bilirubin 5.1 H (0.2-1.3) mg/dL AST 115 H (17-59) U/L ALT 34 (4-49) U/L Alkaline Phosphatase 163 H (38-126) U/L Ammonia 53 H (<30) umol/L Total Protein 8.0 (6.3-8.2) g/dL Albumin 3.5 (3.5-5.0) g/dL Amylase 36 (30-110) U/L Lipase 51 (23-300) U/L Serum Alcohol <10 mg/dL Disposition Clinical Impression: Ascites, Acute alcoholic hepatitis, Alcohol abuse, Jaundice, Hepatitis, Liver failure, Hyperammonemia, Elevated liver enzymes, Alcoholic cirrhosis of liver with ascites Disposition: ADMITTED IP TO THIS [facility] Condition: Stable Is patient prescribed a controlled substance at d/c from ED?: No
[2021-09-17 03:16] LABS: Basophils # (A) 0.1 k/uL (0-0.2); Basophils % (A) 1 %; Eosinophils # (A) 0.3 k/uL (0-0.7); Eosinophils % (A) 2 %; HCT 47.6 % (39.0-53.0); HGB 15.9 gm/dL (13.0-17.5); Lymphocytes % (A) 13 %; MCH 36.1 pg (25.0-35.0); MCHC 33.3 g/dL (31.0-37.0); MCV 108.2 fL (80.0-100.0); Macrocytosis Marked; Monocytes # (A) 0.9 k/uL (0-1.0); Monocytes % (A) 6 %; Neutrophils % (A) 78 %; RDW 15.5 % (11.5-15.5); WBC 15.3 k/uL (3.8-10.6)
[2021-09-17 03:17] LABS: Platelet Count 195 k/uL (150-450)
--- NOTE | 2021-09-17 03:17 | CT ---
EXAMINATION TYPE: CT abdomen pelvis wo con DATE OF EXAM: 09/17/2021 COMPARISON: None HISTORY: llq pain, h/o alcoholism. pt would not follow directions & hold breath for scan CT DLP: 1492.4 mGycm Automated exposure control for dose reduction was used. Images of the abdomen and pelvis obtained from the diaphragm to the floor the pelvis with no contrast . There is infiltrate and atelectasis at both lung bases. Heart size is fairly normal. No pericardial e ffusion. There is large amount of abdominal ascites fluid. Liver shows no focal defect. Spleen is measuring 15 cm. The bile ducts are not dilated. There is no sign of pancreatic mass. The stomach is intact. There is no adrenal mass. Kidneys have normal size. No hydronephrosis. Ureters are not dilated. There is no retroperitoneal adenopathy. Urinary bladder not well defined. There is massive abdominal ascit es fluid. This is obscuring the urinary bladder. There is no evidence of free air. There is periumbilical subcutaneous edema. No evidence of a bowel o bstruction. There are multiple small calcifications in the dependent gallbladder consistent with ossi fied gallstones. The lumbar vertebrae have normal alignment. No compression fracture. Posterior elements are intact. B tolu pelvis is intact. The hip joints are intact. IMPRESSION: Massive abdominal ascites. Edema around the umbilicus. No bowel obstruction or free air. Infiltrate and atelectasis at both lung bases. Splenomegaly.
[2021-09-17 03:19] LABS: ALT 34 U/L (4-49); AST 115 U/L (17-59); African American GFR (CKD) >90 (>60 ml/min/1.73 sqM); Albumin 3.5 g/dL (3.5-5.0); Alcohol <10 mg/dL; Alkaline Phosphatase 163 U/L (38-126); Amylase 36 U/L (30-110); Anion Gap 6 mmol/L; Blood Urea Nitrogen 8 mg/dL (9-20); Calcium 8.3 mg/dL (8.4-10.2); Carbon Dioxide 21 mmol/L (22-30); Chloride 106 mmol/L (98-107); Glucose 119 mg/dL (74-99); Lactic Acid, Venous 1.5 mmol/L (0.7-2.0); Lipase 51 U/L (23-300); Non-African American GFR(CKD) >90 (>60 ml/min/1.73 sqM); Potassium 3.8 mmol/L (3.5-5.1); Sodium 133 mmol/L (137-145); Total Bilirubin 5.1 mg/dL (0.2-1.3)
[2021-09-17 03:22] LABS: Polychromasia Present
[2021-09-17] MEDS ORDERED: NALOXONE 0.4 MG/ML 1 ML VIAL IV PRN (03:25)
[2021-09-17] MEDS: MORPHINE SULFATE 4 MG/ML SYRINGE IV PRN ×5 (04:32→21:15)
--- NOTE | 2021-09-17 06:59 | P.HPIM ---
History of Present Illness H&P Date: 09/17/21 Chief Complaint: Abdominal pain 41-year-old man with a medical history of alcohol abuse disorder, alcoholic cirrhosis presented for evaluation of abdominal pain. [facility] but lately has been feeling like his stomach is been filling up. Starting 2 days ago he started to feel a pain at the lower end of his abdomen as well as the back, which she originally thought were kidney stones. He denies fevers, chills, nausea, vomiting, chest pain, palpitations, syncope, presyncope, cough, dyspnea, diarrhea, constipation, dysuria, dyschezia, numbness/weakness of his extremities. Patient says last drink was in April of this year. On my evaluation, patient is afebrile, 126/87, heart rate is 87, 98% on room air. CBC shows mild leukocytosis to 15.3, MCV is 108.2. Chemistries show mild acidosis to a CO2 of 21, a low BUN. LFTs show total bilirubin 5.1, elevated AST to 115, elevated ALT 34, elevated alkaline phosphatase 163, elevated ammonia of 53. Serum alcohol level was less than 10. Abdominal CT shows massive abdominal ascites with edema around the umbilicus, no bowel obstruction, no free air, no kidney stones. All Systems reviewed and pertinent positives and negatives noted in HPI, all other symptoms are negative Gen: awake, alert HEENT: normocephalic, atraumatic, good hearing acuity, moist mucous membranes Resp: good air exchange, breathing comfortably with no accessory muscle use CVS: good distal perfusion x 4, GI: soft, NTTP, ND, + ascites : no SPT, no CVAT, gonzalez catheter not present MSK: no pitting edema, no clubbing Neuro: non-focal, moving all extremities Psych: cooperative, euthymic mood Labs and imaging reviewed as above Assessment/plan: Abdominal pain Decompensated liver cirrhosis with ascites Elevated ammonia -Admit inpatient, telemetry -IR consult for paracentesis -GI consult -Start spironolactone and Lasix -Start daily lactulose -Morphine for pain control Alcohol abuse disorder -Continue to encourage cessation Patient is full code DVT prophylaxis covered with heparin 3 times a day Past Medical History Past Medical History: Hyperlipidemia, Hypertension, Liver Disease Additional Past Medical History / Comment(s): Alcoholism, past withdrawals with tremors/diaphoresis, elevated LFTs, occasional upper back pain. The patient also has a and he has history of PTSD History of Any Multi-Drug Resistant Organisms: None Reported Past Surgical History: No Surgical Hx Reported Additional Past Surgical History / Comment(s): Pt states he has never had surgery Past Anesthesia/Blood Transfusion Reactions: Unable to Obtain Additional Past Anesthesia/Blood Transfusion Reaction / Comment(s): Pt states he has never had surgery. Past Psychological History: No Psychological Hx Reported Smoking Status: Current every day smoker Past Alcohol Use History: Abuse, Heavy Past Drug Use History: None Reported - Past Family History Mother Family Medical History: Cancer Additional Family Medical History / Comment(s): Mother has colon cancer. Father History Unknown: Yes Additional Family Medical History / Comment(s): All pt knows about his father is that he is . Medications and Allergies Home Medications Medication Instructions Recorded Confirmed Type Magnesium Oxide [Mag-Ox] 400 mg PO DAILY #30 tablet 05/29/21 08/10/21 Rx Thiamine [Vitamin B-1] 100 mg PO DAILY #30 tablet 05/29/21 08/10/21 Rx Folic Acid 1 mg PO DAILY 08/10/21 08/10/21 History Allergies Allergy/AdvReac Type Severity Reaction Status Date / Time ibuprofen [From Motrin] Allergy Swelling Verified 09/17/21 06:46 Physical Exam Osteopathic Statement: *. No significant issues noted on an osteopathic structural exam other than those noted in the History and Physical/Consult. Vitals: Vital Signs Temp Pulse Resp BP Pulse Ox 09/17/21 06:00 80 18 120/77 97 09/17/21 04:00 99 F 87 17 111/85 98 09/17/21 02:31 99.1 F 18 126/87 94 L Intake and Output 09/16/21 09/16/21 09/17/21 14:59 22:59 06:59 Other: Weight 113.852 kg Results CBC & Chem 7: 09/17/21 02:48 09/17/21 02:48 Labs: Abnormal Lab Results - Last 24 Hours (Table) 09/17/21 09/17/21 09/17/21 Range/Units 02:48 02:48 02:48 WBC 15.3 H (3.8-10.6) k/uL MCV 108.2 H (80.0-100.0) fL MCH 36.1 H (25.0-35.0) pg Neutrophils # 12.0 H (1.3-7.7) k/uL Macrocytosis Marked A Sodium 133 L (137-145) mmol/L Carbon Dioxide 21 L (22-30) mmol/L BUN 8 L (9-20) mg/dL Glucose 119 H (74-99) mg/dL Calcium 8.3 L (8.4-10.2) mg/dL Total Bilirubin 5.1 H (0.2-1.3) mg/dL AST 115 H (17-59) U/L Alkaline Phosphatase 163 H (38-126) U/L Ammonia 53 H (<30) umol/L
[2021-09-17] MEDS: FUROSEMIDE 40 MG TAB PO SCH (08:45)
[2021-09-17] MEDS ORDERED: LACTULOSE 20 GM/30 ML CUP PO SCH (09:00)
[2021-09-17] MEDS ORDERED: SPIRONOLACTONE 25 MG TAB PO SCH (09:00)
--- NOTE | 2021-09-17 09:21 | P.PN ---
Subjective Progress Note Date: 09/17/21 Hospital course: Patient is a very pleasant 41-year-old male with a past medical history of alcohol abuse disorder with last reported alcoholic beverage being consumed April 2021, and alcoholic liver cirrhosis. He presented to the emergency department on 10/18/21 with a chief complaint of abdominal pain and distention. He underwent full evaluation in the emergency department and was found to have mild leukocytosis with WBC count of 15.3,mild hyponatremia with sodium 133, elevated bilirubin 5.1, AST 115, ALT 34, and alkaline phosphatase of 163 with an elevated ammonia level of 53. Patient's MELD score is 21. Patient is admitted under services with consultation to gastroenterology and interventional radiology for paracentesis. Physical exam: Patient was seen and fully evaluated at bedside this morning. He continues to report left-sided abdominal pain. 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 Patient currently reports left-sided abdominal pain but denies tenderness upon palpation. Patient's abdomen is cirrhotic and distended. Patient denies any headache, lightheadedness, dizziness, chest pain, palpitations, or shortness of breath at this time. Vital signs reviewed and stable. General: Nontoxic, no distress and appears stated age. Derm: Skin warm and dry, normal coloration for ethnicity. Head: Atraumatic, normocephalic and symmetric. Eyes: EOMs intact, no lid lag, and anicteric sclera Mouth: no lip lesions, mucus membranes moist Cardiovascular: regular rate and rhythm with normal S1S2, no murmur, positive posterior tibial pulses bilaterally, and cap refill < 2 seconds. Lungs: Respirations even, regular, and unlabored on room air. Lungs CTA bilaterally, no rhonchi, no rales, no wheezing, and no accessory muscle usage. Abdominal: Cirrhotic distended taut abdomen, cirrhotic abdomen that is distended. nontender to palpation, no guarding, no appreciable organomegaly Ext: ROM intact. No gross muscle atrophy, no edema, no contractures Neuro: Speech clear, face symmetrical and CN II-XII grossly intact with no noted focal neuro deficits Psych: Alert and oriented to person, place, time, and situation. Appropriate and pleasant affect. Assessment and Plan of Care: Abdominal pain Decompensated alcoholic liver cirrhosis with ascites Hyperammonemia -MELD score is 21 -IR consulted for paracentesis -GI consulted for evaluation -Continue spironolactone and Lasix -Continue daily lactulose -Morphine for pain control Alcohol abuse disorder, -Continue to encourage cessation, patient reports last drink April 2021 CODE STATUS: full code DVT prophylaxis: heparin Discussed with: patient and RN Anticipated discharge date: clinical course to determine Anticipated discharge place: home A total of 34 minutes was spent on the care of this complex patient more than 50% of the time was spent in counseling and care coordination. Objective - Vital Signs Vital signs: Vital Signs Temp 99 F 09/17/21 04:00 Pulse 80 09/17/21 06:00 Resp 18 09/17/21 06:00 BP 120/77 09/17/21 06:00 Pulse Ox 97 09/17/21 06:00 FiO2 Intake & Output 09/16/21 09/17/21 09/17/21 18:59 06:59 18:59 Weight 113.852 kg - Labs CBC & Chem 7: 09/17/21 02:48 09/17/21 02:48 Labs: Abnormal Lab Results - Last 24 Hours (Table) 09/17/21 09/17/21 09/17/21 Range/Units 02:48 02:48 02:48 WBC 15.3 H (3.8-10.6) k/uL MCV 108.2 H (80.0-100.0) fL MCH 36.1 H (25.0-35.0) pg Neutrophils # 12.0 H (1.3-7.7) k/uL Macrocytosis Marked A Sodium 133 L (137-145) mmol/L Carbon Dioxide 21 L (22-30) mmol/L BUN 8 L (9-20) mg/dL Glucose 119 H (74-99) mg/dL Calcium 8.3 L (8.4-10.2) mg/dL Total Bilirubin 5.1 H (0.2-1.3) mg/dL AST 115 H (17-59) U/L Alkaline Phosphatase 163 H (38-126) U/L Ammonia 53 H (<30) umol/L
[2021-09-17] MEDS: HEPARIN SODIUM,PORCINE/PF 5,000 UNIT/0.5 ML SYRINGE SQ SCH ×2 (09:33→15:59)
[2021-09-17 09:56] LABS: INR 1.6 (<1.2); Prothrombin Time 15.9 sec (9.0-12.0)
--- NOTE | 2021-09-17 12:04 | P.CONS ---
History of Present Illness - Reason for Consult Consult date: 09/17/21 Ascites, hepatic encephalopathy Requesting physician: Luis Restrepo - Chief Complaint Abdominal distention - History of Present Illness History 41-year-old male who presented to the emergency department with complaints of abdominal distention, abdominal pain, and jaundice. Has a significant past history of alcohol abuse which he states he quit drinking April-May of this year. Patient had been drinking a fifth of liquid a day for several years. He was diagnosed in 2019 when he was hospitalized for pneumonia with alcoholic liver disease. At that time he had ascites. He states he does not recall having a paracentesis in the past. However patient was recently seen in the emergency department in July of this year for alcohol withdrawal. According to the notes at that time he had been drinking that day. He did have a serum alcohol 178 on 08/10/2021. Looks like he had an outpatient ultrasound done on 09/11/2021 with findings of ascites, sludge-filled gallbladder, hepatomegaly. As part of his workup in the emergency department he underwent a CT of the abdomen and pelvis showed massive amount of ascites. Gastroenterology was consulted for ascites and underlying hepatocellular disease. Labs: WBC 15.3 hemoglobin 15.9 hematocrit 47 platelet count 195,000 INR 1.6 sodium 133 potassium 3.8 BUN 8 creatinine 1.0 glucose 118 Total bilirubin 5.1 AST 1:15 ALT 34 alkaline phosphatase 163 [address] abdomen and pelvis: Massive abdominal ascites. Edema around the umbilicus. No bowel obstruction or free air. Infiltrate and atelectasis at both lung bases. Splenomegaly. Review of Systems REVIEW OF SYSTEMS: CARDIOPULMONARY: No chest pain or shortness of breath. Gastrointestinal: Abdominal distention, abdominal pain. No nausea or vomiting. No hematemesis, coffee-ground emesis. No rectal bleeding, or melena. GENITOURINARY: No dysuria or hematuria. MUSCULOSKELETAL: Reports normal range of motion. SKIN: No rashes. Jaundice. ENDOCRINE: No chills, fevers. No excessive weight gain or loss. No polydipsia or polyuria. PSYCHIATRIC: Unremarkable. NEUROLOGY: No change in mental status. Denies dizziness, headache. ENT: Vision unremarkable. CONSTITUTIONAL: No recent weight loss. No fever, chills, night sweats. Past Medical History Past Medical History: Hyperlipidemia, Hypertension, Liver Disease Additional Past Medical History / Comment(s): Alcoholism, past withdrawals with tremors/diaphoresis, elevated LFTs, occasional upper back pain. The patient also has a and he has history of PTSD History of Any Multi-Drug Resistant Organisms: None Reported Past Surgical History: No Surgical Hx Reported Additional Past Surgical History / Comment(s): Pt states he has never had surgery Past Anesthesia/Blood Transfusion Reactions: Unable to Obtain Additional Past Anesthesia/Blood Transfusion Reaction / Comm: Pt states he has never had surgery. Past Psychological History: No Psychological Hx Reported Smoking Status: Current every day smoker Past Alcohol Use History: Abuse, Heavy Past Drug Use History: None Reported - Past Family History Mother Family Medical History: Cancer Additional Family Medical History / Comment(s): Mother has colon cancer. Father History Unknown: Yes Additional Family Medical History / Comment(s): All pt knows about his father is that he is . Medications and Allergies Home Medications Medication Instructions Recorded Confirmed Type Magnesium Oxide [Mag-Ox] 400 mg PO DAILY #30 tablet 05/29/21 09/17/21 Rx Thiamine [Vitamin B-1] 100 mg PO DAILY #30 tablet 05/29/21 09/17/21 Rx Folic Acid 1 mg PO DAILY 08/10/21 09/17/21 History Allergies Allergy/AdvReac Type Severity Reaction Status Date / Time ibuprofen [From Motrin] Allergy Swelling Verified 09/17/21 06:46 Physical Exam Vitals: Vital Signs Temp Pulse Pulse Resp BP BP Pulse Ox 09/17/21 08:16 98.2 F 90 18 115/79 94 L 09/17/21 06:00 80 18 120/77 97 09/17/21 04:00 99 F 87 17 111/85 98 09/17/21 02:31 99.1 F 18 126/87 94 L Intake and Output 09/16/21 09/17/21 09/17/21 22:59 06:59 14:59 Other: Weight 113.852 kg General appearance: The patient is alert, oriented, appears in no acute distress. HET: Head is normocephalic and atraumatic. Conjunctiva pink. Sclera icteric. Neck: Supple without lymphadenopathy. Trachea midline. Heart: S1 S2. Regular rate and rhythm. Lungs: Clear to auscultation. Abdomen: Soft, tender to palpation, distended/ascites, positive bowel sounds. No guarding or rigidity. Skin: No rashes. Jaundice. Extremities: Normal skin color and turgor. No pedal edema. Neurological: No focal deficits. Alert and oriented x3. Results CBC & Chem 7: 09/17/21 02:48 09/17/21 02:48 Labs: Abnormal Lab Results - Last 24 Hours (Table) 09/17/21 09/17/21 09/17/21 Range/Units 02:48 02:48 02:48 WBC 15.3 H (3.8-10.6) k/uL MCV 108.2 H (80.0-100.0) fL MCH 36.1 H (25.0-35.0) pg Neutrophils # 12.0 H (1.3-7.7) k/uL Macrocytosis Marked A Sodium 133 L (137-145) mmol/L Carbon Dioxide 21 L (22-30) mmol/L BUN 8 L (9-20) mg/dL Glucose 119 H (74-99) mg/dL Calcium 8.3 L (8.4-10.2) mg/dL Total Bilirubin 5.1 H (0.2-1.3) mg/dL AST 115 H (17-59) U/L Alkaline Phosphatase 163 H (38-126) U/L Ammonia 53 H (<30) umol/L Comments: CT abdomen and pelvis: Massive abdominal ascites. Edema around the umbilicus. No bowel obstruction or free air. Infiltrate and atelectasis at both lung bases. Splenomegaly. Assessment and Plan (1) Alcoholic cirrhosis of liver with ascites Narrative/Plan: 41-year-old male who has a significant past history of alcohol abuse presented to the emergency department with complaints of abdominal pain with abdominal distention. Patient had been drinking up to a fifth a day for many years. Initially states he quit drinking in April of this year, however after reviewing patient's chart he was noted to be intoxicated on 08/10/2021. He denies recalling any previous paracentesis. 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 He was initially seen by gastroenterology in 2023 acute alcoholic hepatitis. He was started here on spironolactone 50 mg daily and Lasix 40 mg daily. Lactulose 20 g per day for hyperammonemia. He is scheduled to undergo paracentesis with fluid studies. He is alert and oriented today. Will need outpatient surveillance. Alcohol cessation. Current Visit: Yes Status: Acute Code(s): K70.31 - ALCOHOLIC CIRRHOSIS OF LIVER WITH ASCITES SNOMED Code(s): 243116320 (2) Alcohol abuse Current Visit: Yes Status: Acute Code(s): F10.10 - ALCOHOL ABUSE, UNCOMPLICATED SNOMED Code(s): 73694689 (3) Hyperammonemia Current Visit: Yes Status: Acute Code(s): E72.20 - DISORDER OF UREA CYCLE METABOLISM, UNSPECIFIED SNOMED Code(s): 9096651 Plan: 1. Continue symptomatic and supportive care 2. Agree with paracentesis with fluid studies 3. Continue Lasix 40 mg daily increase spironolactone to 100 mg daily 4. Increase lactulose to 30 g 3 times a day, titrate to have 2-3 bowel movements daily. 5. Alcohol abstinence 6. Low-sodium diet, this was discussed with patient to avoid foods high in sodium including processed foods and eating out 7. Discussed with patient importance of outpatient follow-up with [facility] Thank you for this consultation, recommend outpatient follow-up with gastroenterology Thank you for allowing us to participate in the care of the patient, the GI service will sign off, gastroenterology will not be available at the hospital this weekend and through next week. If further evaluation by gastroenterology is required the patient will need transfer as per the primary team's discretion. Dr. Reinaldo Negron I agree with the dictator's note, documented as a scribe by Zuleyma Arriola.
[2021-09-17] MEDS: LACTULOSE 20 GM/30 ML CUP PO SCH ×2 (16:00→20:16)
[2021-09-17] MEDS: ONDANSETRON 4 MG/2 ML VIAL IVP PRN (21:14)
[2021-09-18] MEDS: HEPARIN SODIUM,PORCINE/PF 5,000 UNIT/0.5 ML SYRINGE SQ SCH ×4 (01:08→23:06)
[2021-09-18] MEDS: MORPHINE SULFATE 4 MG/ML SYRINGE IV PRN ×3 (03:13→20:03)
[2021-09-18 09:19] LABS: Basophils # (A) 0.12 X 10*3/uL (0.00-0.10); Basophils % (A) 0.7 %; Eosinophils % (A) 2.2 %; HCT 43.3 % (39.6-50.0); HGB 14.6 g/dL (13.0-17.0); Immature Grans, Automated 0.5 %; Lymphocytes # (A) 3.63 X 10*3/uL (0.90-5.00); Lymphocytes % (A) 19.7 %; MCH 35.4 pg (27.0-32.0); MCHC 33.7 g/dL (32.0-37.0); MCV 104.8 fL (80.0-97.0); Mean Platelet Volume 11.3 fL (9.5-12.2); Monocytes # (A) 1.43 X 10*3/uL (0.20-1.00); Monocytes % (A) 7.8 %; NRBC Per 100 WBC 0 /100 WBCS (0.0-0.0); Neutrophils # (A) 12.78 X 10*3/uL (1.80-7.70); Neutrophils % (A) 69.1 %; Platelet Count 196 X 10*3/uL (140-440); RBC 4.13 X 10*6/uL (4.40-5.60); WBC 18.45 X 10*3/uL (4.50-10.00)
[2021-09-18 10:00] LABS: Phosphorus 3.7 mg/dL (2.4-5.1)
[2021-09-18 10:24] LABS: African American GFR (CKD) 96.8 (60.0-200.0); Albumin 3.2 g/dL (3.8-4.9); Albumin/Globulin Ratio 0.8 (1.60-3.17); Anion Gap 10.3 mmol/L (10.00-18.00); BUN/Creat Ratio 8.27 Ratio (12.00-20.00); Blood Urea Nitrogen 9.1 mg/dL (9.0-27.0); Calcium 8.5 mg/dL (8.7-10.3); Carbon Dioxide 21.7 mmol/L (20.0-27.5); Non-African American GFR(CKD) 83.5 (60.0-200.0); Total Bilirubin 4.5 mg/dL (0.30-1.20); Total Protein 7.2 g/dL (6.2-8.2)
[2021-09-18] MEDS: SPIRONOLACTONE 25 MG TAB PO SCH (12:07)
[2021-09-18] MEDS: FUROSEMIDE 40 MG TAB PO SCH (12:07)
[2021-09-18] MEDS: LACTULOSE 20 GM/30 ML CUP PO SCH ×3 (12:07→20:02)
[2021-09-18 13:19] VITALS: BMI 30.9
--- NOTE | 2021-09-18 13:27 | US ---
EXAMINATION TYPE: US paracentesis abd w/image DATE OF EXAM: 09/18/2021 COMPARISON: NONE HISTORY: Ascites. PROCEDURE: Maximal barrier technique was utilized. The skin overlying a suitable pocket of fluid was localized with ultrasound and the overlying skin was prepped and draped. Ultrasound was utilized with sterile technique. Lidocaine was used for local anesthesia and a skin lynnette made with a scalpel. Catheter was advanced under direct ultrasound guidance into a suitable pocket of fluid and approximately 10.5 lite rs of serous fluid were removed. Catheter was withdrawn and hemostasis achieved. There is no immedi ate complication; the patient is discharged in stable condition. IMPRESSION: STATUS POST ULTRASOUND GUIDED PARACENTESIS FOR PALLIATION OF ASCITES. THIS PROCEDURE WA S PERFORMED BY THE UNDERSIGNED.
[2021-09-18] MEDS: ALBUMIN HUMAN 25% 50 ML in EMPTY BAG 1 BAG IVPB SCH ×4 (13:47→14:40)
--- NOTE | 2021-09-18 14:27 | P.PN ---
Subjective Progress Note Date: 09/18/21 Hospital course: Patient is a very pleasant 41-year-old male with a past medical history of alcohol abuse disorder with last reported alcoholic beverage being consumed April 2021, and alcoholic liver cirrhosis. He presented to the emergency department on 10/18/21 with a chief complaint of abdominal pain and distention. He underwent full evaluation in the emergency department and was found to have mild leukocytosis with WBC count of 15.3,mild hyponatremia with sodium 133, elevated bilirubin 5.1, AST 115, ALT 34, and alkaline phosphatase of 163 with an elevated ammonia level of 53. Patient's MELD score is 21. Patient is admitted under services with consultation to gastroenterology and interventional radiology for paracentesis. Patient underwent paracentesis 09/18/21 with removal of a reported 10.5 L of serous fluid. Physical exam: Patient was seen and fully evaluated at bedside this afternoon upon return from paracentesis. Patient reports overall feeling fatigued and tired this afternoon. He does report slight improvement of previously reported left-sided abdominal pain/discomfort. Patient reports that he continues to have multiple bowel movements with lactulose, but denies having any nausea, vomiting, or any other complaints at this time. Vital signs reviewed and stable. General: Nontoxic, no distress and appears stated age. Derm: Skin warm and dry, normal coloration for ethnicity. Head: Atraumatic, normocephalic and symmetric. Eyes: EOMs intact, no lid lag, and anicteric sclera Mouth: no lip lesions, mucus membranes moist Cardiovascular: regular rate and rhythm with normal S1S2, no murmur, positive posterior tibial pulses bilaterally, and cap refill < 2 seconds. Lungs: Respirations even, regular, and unlabored on room air. Lungs CTA jay jay aterally, no rhonchi, no rales, no wheezing, and no accessory muscle usage. Abdominal: Cirrhotic abdomen that is distended. nontender to palpation, no guarding, no appreciable organomegaly Ext: ROM intact. No gross muscle atrophy, no edema, no contractures Neuro: Speech clear, face symmetrical and CN II-XII grossly intact with no noted focal neuro deficits Psych: Alert and oriented to person, place, time, and situation. Appropriate and pleasant affect. Assessment and Plan of Care: Abdominal pain Decompensated alcoholic liver cirrhosis with ascites Hyperammonemia -MELD score is 21 -IR consulted, patient underwent paracentesis 09/18/21 with removal of 10.5 L of fluid -GI consulted, agree with paracentesis and continuation of lactulose/spironolactone/Lasix and recommending outpatient follow-up in their office. -Continue spironolactone and Lasix -Continue daily lactulose -Morphine for pain control Alcohol abuse disorder, -Continue to encourage cessation, patient reports last drink April 2021 -Recommend outpatient follow-up with insurance advisor to be evaluated for possibility of transplant in the future CODE STATUS: full code DVT prophylaxis: heparin Discussed with: patient and RN Anticipated discharge date: clinical course to determine, likely tomorrow morning Anticipated discharge place: home A total of 33 minutes was spent on the care of this complex patient more than 50% of the time was spent in counseling and care coordination. I reviewed the documentation as provided by the TESSY above, who is the original author of this note. I agree with the documented assessment and plan, with the following changes: none Objective - Vital Signs Vital signs: Vital Signs Temp 98.2 F 09/18/21 04:14 Pulse 95 09/18/21 04:14 Resp 18 09/18/21 04:14 BP 104/64 09/18/21 04:14 Pulse Ox 94 L 09/18/21 04:14 FiO2 Intake & Output 09/17/21 09/18/21 09/18/21 18:59 06:59 18:59 Weight 113.852 kg Other: Voiding Method Toilet Toilet Urinal Urinal # Bowel Movements 1 - Labs CBC & Chem 7: 09/18/21 06:34 09/18/21 06:34 Labs: Abnormal Lab Results - Last 24 Hours (Table) 09/17/21 09/18/21 Range/Units 09:19 06:34 PT 15.9 H (9.0-12.0) sec INR 1.6 H (<1.2) Ammonia 41 H (<30) umol/L
[2021-09-18] MEDS: ONDANSETRON 4 MG/2 ML VIAL IVP PRN (20:02)
[2021-09-18 23:33] LABS: Appearance,BF Clear
[2021-09-19] MEDS: MORPHINE SULFATE 4 MG/ML SYRINGE IV PRN ×2 (04:17→20:01)
[2021-09-19 07:08] LABS: Albumin, Fluid Source Ascites; Glucose, BF Source Ascites; Glucose, Body Fluid 112 mg/dL; LDH, Body Fluid Source Ascites; T. Protein, Body Fluid Source Ascites; Total Protein, Body Fluid 1480 mg/dL
[2021-09-19] MEDS: HEPARIN SODIUM,PORCINE/PF 5,000 UNIT/0.5 ML SYRINGE SQ SCH ×2 (07:51→17:39)
[2021-09-19] MEDS: SPIRONOLACTONE 25 MG TAB PO SCH (07:52)
[2021-09-19] MEDS: FUROSEMIDE 40 MG TAB PO SCH (07:52)
[2021-09-19] MEDS: LACTULOSE 20 GM/30 ML CUP PO SCH ×3 (07:53→22:10)
[2021-09-19] MEDS ORDERED: HEPARIN SODIUM,PORCINE 5,000 UNIT/ML 1 ML VIAL ONE (11:30)
[2021-09-19] MEDS ORDERED: MORPHINE SULFATE 4 MG/ML SYRINGE ONE (11:30)
--- NOTE | 2021-09-19 15:47 | P.PN ---
Subjective Progress Note Date: 09/19/21 Hospital course: Patient is a very pleasant 41-year-old male with a past medical history of alcohol abuse disorder with last reported alcoholic beverage being consumed April 2021, and alcoholic liver cirrhosis. He presented to the emergency department on 10/18/21 with a chief complaint of abdominal pain and distention. He underwent full evaluation in the emergency department and was found to have mild leukocytosis with WBC count of 15.3,mild hyponatremia with sodium 133, elevated bilirubin 5.1, AST 115, ALT 34, and alkaline phosphatase of 163 with an elevated ammonia level of 53. CT abdomen and pelvis revealed massive abdominal ascites with edema around the umbilicus, infiltrate and atelectasis at bilateral lung bases, and splenomegaly. Patient's MELD score is 21. Patient is admitted under services with consultation to gastroenterology and interventional radiology for paracentesis. Patient underwent paracentesis 09/18/21 with removal of a reported 10.5 L of serous fluid. Physical exam: Patient was seen and fully evaluated at bedside this afternoon. Patient reports continued fatigue and slight left-sided abdominal pain/decreased discomfort remainin WBCs were elevated yesterday at 18.45, awaiting ascites culture results. Due to elevation in WBCs, will give patient a prophylactic dose of Rocephin pending culture results. Repeat CBC and CMP were ordered and awaiting results at this time. Patient is tolerating oral intake and denies having any episodes of nausea or vomiting, denies any chest pain, palpitations, or shortness of breath. Patient remains afebrile with vital signs stable. Vital signs reviewed and stable. General: Nontoxic, no distress and appears stated age. Derm: Skin warm and dry, normal coloration for ethnicity. Head: Atraumatic, normocephalic and symmetric. Eyes: EOMs intact, no lid lag, and icteric sclera Mouth: no lip lesions, mucus membranes moist Cardiovascular: regular rate and rhythm with normal S1S2, no murmur, positive posterior tibial pulses bilaterally, and cap refill < 2 seconds. Lungs: Respirations even, regular, and unlabored on room air. Lungs CTA bilaterally, no rhonchi, no rales, no wheezing, and no accessory muscle usage. Abdominal: Cirrhotic abdomen that is distended. nontender to palpation, no guarding, no appreciable organomegaly Ext: ROM intact. No gross muscle atrophy, no edema, no contractures Neuro: Speech clear, face symmetrical and CN II-XII grossly intact with no noted focal neuro deficits Psych: Alert and oriented to person, place, time, and situation. Appropriate and pleasant affect. Assessment and Plan of Care: Abdominal pain Decompensated alcoholic liver cirrhosis with ascites Hyperammonemia Splenomegaly -MELD score is 21 -IR consulted, patient underwent paracentesis 09/18/21 with removal of 10.5 L of fluid -IV antibiotics: Rocephin may discontinue if ascites culture results are negative. -GI consulted, agreed with paracentesis and continuation of lactulose/spironol actone/Lasix and recommending outpatient follow-up in their office. -Continue spironolactone and Lasix -Continue daily lactulose -Morphine for pain control Alcohol abuse disorder -Continue to encourage cessation, patient reports last drink April 2021 -Recommend outpatient follow-up with sales and retail management recruiter to be evaluated for possibility of transplant in the future CODE STATUS: full code DVT prophylaxis: heparin Discussed with: patient and RN Anticipated discharge date: clinical course to determine, likely tomorrow morning Anticipated discharge place: home A total of 35 minutes was spent on the care of this complex patient more than 50% of the time was spent in counseling and care coordination. I reviewed the documentation as provided by the TESSY above, who is the original author of this note. I agree with the documented assessment and plan, with the following changes: discontinued ceftriaxone after peritoneal fluid is negative. Objective - Vital Signs Vital signs: Vital Signs Temp 97.7 F 09/19/21 04:13 Pulse 85 09/19/21 04:13 Resp 18 09/19/21 04:13 BP 114/64 09/19/21 04:13 Pulse Ox 94 L 09/19/21 04:13 FiO2 Intake & Output 09/18/21 09/19/21 09/19/21 18:59 06:59 18:59 Intake Total 200 Balance 200 Weight 103.6 kg Intake: Intake, IV Titration 200 Amount Albumin Human 25% 50 ml 200 In Empty Bag 1 bag @ 200 mls/hr IVPB Q15M [facility] Rx#: [id number] Other: Voiding Method Toilet Urinal # Voids 4 # Bowel Movements 1 - Labs CBC & Chem 7: 09/19/21 11:24 09/19/21 11:24 Labs: Abnormal Lab Results - Last 24 Hours (Table) 09/18/21 09/18/21 Range/Units 06:34 06:34 WBC 18.45 H (4.50-10.00) X 10*3/uL RBC 4.13 L (4.40-5.60) X 10*6/uL MCV 104.8 H (80.0-97.0) fL MCH 35.4 H (27.0-32.0) pg RDW 16.0 H (11.5-14.5) % Immature Gran # 0.09 H (0.00-0.04) X 10*3/uL Neutrophils # 12.78 H (1.80-7.70) X 10*3/uL Monocytes # 1.43 H (0.20-1.00) X 10*3/uL Eosinophils # 0.40 H (0.04-0.35) X 10*3/uL Basophils # 0.12 H (0.00-0.10) X 10*3/uL Sodium 134 L (135-145) mmol/L BUN/Creatinine Ratio 8.27 L (12.00-20.00) Ratio Calcium 8.5 L (8.7-10.3) mg/dL Total Bilirubin 4.50 H (0.30-1.20) mg/dL AST 77 H (14-35) U/L Alkaline Phosphatase 144 H (41-126) U/L Albumin 3.2 L (3.8-4.9) g/dL Globulin 4.0 H (1.6-3.3) g/dL Albumin/Globulin Ratio 0.80 L (1.60-3.17) g/dL Microbiology - Last 24 Hours (Table) 09/18/21 17:30 Body Fluid Culture - Preliminary Ascites Fluid 09/18/21 11:30 Anaerobic Culture - Preliminary Ascites Fluid
[2021-09-19 16:48] LABS: Basophils # (A) 0.1 k/uL (0-0.2); Basophils % (A) 1 %; Eosinophils # (A) 0.3 k/uL (0-0.7); Eosinophils % (A) 2 %; HCT 42.8 % (39.0-53.0); Lymphocytes # (A) 2.2 k/uL (1.0-4.8); Lymphocytes % (A) 18 %; MCH 36.5 pg (25.0-35.0); MCHC 32.7 g/dL (31.0-37.0); MCV 111.6 fL (80.0-100.0); Macrocytosis Marked; Mean Platelet Volume 9.9; Monocytes # (A) 0.7 k/uL (0-1.0); Monocytes % (A) 5 %; Neutrophils % (A) 73 %; Platelet Count 162 k/uL (150-450); RBC 3.84 m/uL (4.30-5.90); RDW 15.2 % (11.5-15.5); WBC 12.4 k/uL (3.8-10.6)
[2021-09-19 17:00] LABS: ALT 22 U/L (4-49); AST 67 U/L (17-59); African American GFR (CKD) >90 (>60 ml/min/1.73 sqM); Albumin 3.1 g/dL (3.5-5.0); Albumin/Globulin Ratio 0.9; Alkaline Phosphatase 125 U/L (38-126); Anion Gap 6 mmol/L; Blood Urea Nitrogen 11 mg/dL (9-20); Calcium 7.6 mg/dL (8.4-10.2); Carbon Dioxide 26 mmol/L (22-30); Chloride 101 mmol/L (98-107); Globulin 3.6 g/dL; Glucose 96 mg/dL (74-99); Magnesium 1.9 mg/dL (1.6-2.3); Non-African American GFR(CKD) >90 (>60 ml/min/1.73 sqM); Sodium 133 mmol/L (137-145); Total Bilirubin 4.2 mg/dL (0.2-1.3); Total Protein 6.7 g/dL (6.3-8.2)
[2021-09-19 21:17] VITALS: RESP 16
[2021-09-19] MEDS: ONDANSETRON 4 MG/2 ML VIAL IVP PRN (22:10)
[2021-09-20] MEDS: HEPARIN SODIUM,PORCINE/PF 5,000 UNIT/0.5 ML SYRINGE SQ SCH ×2 (00:39→08:00)
[2021-09-20] MEDS: MORPHINE SULFATE 4 MG/ML SYRINGE IV PRN (01:04)
[2021-09-20 04:33] VITALS: BP 106/67; PULSE 76; TEMP 98.3
[2021-09-20] MEDS: LACTULOSE 20 GM/30 ML CUP PO SCH (08:00)
[2021-09-20] MEDS: SPIRONOLACTONE 25 MG TAB PO SCH (08:00)
[2021-09-20] MEDS: FUROSEMIDE 40 MG TAB PO SCH (08:00)
--- NOTE | 2021-09-20 11:03 | P.DS ---
Providers Date of admission: 09/17/21 03:25 Expected date of discharge: 09/20/21 Attending physician: Gonzalez Wong MD Consults: 09/17/21 03:26 Consult Physician Routine Consulting Provider: Gina Negron Consult Reason/Comments: ascites Do you want consulting provider notified?: Yes Primary care physician: [facility] Course: Discharge Diagnosis: Decompensated alcoholic liver cirrhosis with ascites Hyperammonemia Splenomegaly Alcohol abuse disorder Leukocytosis, improved Hypervolemic hyponatremia Hospital Course: Patient is a very pleasant 41-year-old male with a past medical history of alcohol abuse disorder with last reported alcoholic beverage being consumed April 2021, and alcoholic liver cirrhosis. He presented to the emergency department on 10/18/21 with a chief complaint of abdominal pain and distention. He underwent full evaluation in the emergency department and was found to have mild leukocytosis with WBC count of 15.3,mild hyponatremia with sodium 133, elevated bilirubin 5.1, AST 115, ALT 34, and alkaline phosphatase of 163 with an elevated ammonia level of 53. CT abdomen and pelvis revealed massive abdominal ascites with edema around the umbilicus, infiltrate and atelectasis at bilateral lung bases, and splenomegaly. Patient's MELD score is 21. Patient is admitted under services with consultation to gastroenterology and interventional radiology for paracentesis. Patient underwent paracentesis 09/18/21 with removal of a reported 10.5 L of serous fluid. Preliminary ascites fluid results showing no growth. Patient reports significant improvement in abdominal pain and requesting discharge at this time. Patient educated on the importance of following up outpatient with gastroenterology as well as multimedia teacher. Physical exam: Vital signs reviewed and stable. General: Nontoxic, no distress and appears stated age. Derm: Skin warm and dry, normal coloration for ethnicity. Head: Atraumatic, normocephalic and symmetric. Eyes: EOMs intact, no lid lag, and icteric sclera Mouth: no lip lesions, mucus membranes moist Cardiovascular: regular rate and rhythm with normal S1S2, no murmur, positive posterior tibial pulses bilaterally, and cap refill < 2 seconds. Lungs: Respirations even, regular, and unlabored on room air. Lungs CTA bilaterally, no rhonchi, no rales, no wheezing, and no accessory muscle usage. Abdominal: Cirrhotic abdomen that is distended. nontender to palpation, no guarding, no appreciable organomegaly Ext: ROM intact. No gross muscle atrophy, no edema, no contractures Neuro: Speech clear, face symmetrical and CN II-XII grossly intact with no noted focal neuro deficits Psych: Alert and oriented to person, place, time, and situation. Appropriate and pleasant affect. A total of 31 minutes of time were spent preparing this complex discharge summ ary. Romero was discharged on 09/20/21 at 8:05 AM I reviewed the documentation as provided by the TESSY above, who is the original author of this note. I agree with the documented assessment and plan, with the following changes: None Patient Condition at Discharge: Stable Plan - Discharge Summary Discharge Rx Participant: No New Discharge Prescriptions: New Spironolactone [Aldactone] 50 mg PO BID 30 Days #120 tab Lactulose [Cephulac] 30 gm PO TID 30 Days #2700 gm Furosemide [Lasix] 40 mg PO DAILY 30 Days #30 tab Continue Thiamine [Vitamin B-1] 100 mg PO DAILY #30 tablet Folic Acid 1 mg PO DAILY Magnesium Oxide [Mag-Ox] 400 mg PO DAILY #30 tablet Discharge Medication List Magnesium Oxide [Mag-Ox] 400 mg PO DAILY #30 tablet 05/29/21 [Rx] Thiamine [Vitamin B-1] 100 mg PO DAILY #30 tablet 05/29/21 [Rx] Folic Acid 1 mg PO DAILY 08/10/21 [History] Furosemide [Lasix] 40 mg PO DAILY 30 Days #30 tab 09/20/21 [Rx] Lactulose [Cephulac] 30 gm PO TID 30 Days #2700 gm 09/20/21 [Rx] Spironolactone [Aldactone] 50 mg PO BID 30 Days #120 tab 09/20/21 [Rx] Follow up Appointment(s)/Referral(s): Gina Negron MD [STAFF PHYSICIAN] - 11/12/21 3:30 pm (The office is putting you on the cancellation list.) [facility],Clinic [Primary Care Provider] - 1-2 days Patient Instructions/Handouts: Spironolactone (By mouth), Furosemide (By mouth), Lactulose (By mouth), Cirrhosis (DC), Alcoholic Hepatitis (DC), Encephalopathy (DC) Activity/Diet/Wound Care/Special Instructions: Activity: As tolerated. Take breaks as needed. Diet: Heart healthy and carb consistent diet. Avoid salts, or foods with hidden salts such as canned or boxed foods and frozen dinners. Extra salt makes your heart work harder and traps the fluid in your body for longer. Special Instructions: Take all of your medications as directed and remember to keep all of your doctor's appointments and follow-up as needed. It is of utmost importance that you follow up with a multimedia teacher, this needs to be discussed when you return for your appointment at the [facility]. We have also provided to with the contact information for stretcher leveler operator, Dr. Negron. Please continue to refrain from alcohol. I wish you very happy Memorial Day!!!!! Thank you for your service!!!!! Thank you for allowing us to participate in your care, it was truly a pleasure having you for our patient!!! Discharge Disposition: HOME SELF-CARE
== END 2021-09-20 09:20 | disposition home or self-care (01) | DRG 433 ==
LOC: EC 02:29 → 5NMEDONC 03:25
PROVIDERS: ADMIT Internal Medicine; ATTEND Internal Medicine
PROC: 0W9G3ZZ Drainage of Peritoneal Cavity, Percutaneous Approach (ICD-10-PCS; principal; 2021-09-18)
DX: K70.31 Alcoholic cirrhosis of liver with ascites (principal); E87.1 Hypo-osmolality and hyponatremia; E87.2 Acidosis; J98.11 Atelectasis; E72.4 Disorders of ornithine metabolism; K70.11 Alcoholic hepatitis with ascites; K72.90 Hepatic failure, unspecified without coma; F17.210 Nicotine dependence, cigarettes, uncomplicated; D72.829 Elevated white blood cell count, unspecified; E78.00 Pure hypercholesterolemia, unspecified; E78.5 Hyperlipidemia, unspecified; E87.70 Fluid overload, unspecified; F10.20 Alcohol dependence, uncomplicated; Y90.6 Blood alcohol level of 120-199 mg/100 ml; F43.10 Post-traumatic stress disorder, unspecified; I10 Essential (primary) hypertension; Z79.899 Other long term (current) drug therapy; Z80.0 Family history of malignant neoplasm of digestive organs; Z87.442 Personal history of urinary calculi; R16.1 Splenomegaly, not elsewhere classified
CPT/HCPCS: 36415; 49083; 74176; 80053; 80320; 82042; 82140; 82150; 82945; 83605; 83615; 83690; 83735; 84100; 84157; 85025; 85610; 87070; 87075; 87205; 89050; 96361; 96374; 96375; 99285

== ENCOUNTER 2021-12-14 23:15 | Emergency (ER) | payer OTHER ==
[2021-12-14 23:23] VITALS: RESP 16; TEMP 98.1
[2021-12-14] MEDS ORDERED: ONDANSETRON 4 MG/2 ML VIAL IVP STA (23:57)
[2021-12-15] MEDS ORDERED: THIAMINE 100 MG/ML 2 ML VIAL IM STA (00:04)
[2021-12-15] MEDS ORDERED: LORazepam 2 MG/ML INJ IV PRN ×3 (00:04)
[2021-12-15 00:26] LABS: Basophils # (A) 0.1 k/uL (0-0.2); Basophils % (A) 1 %; Eosinophils # (A) 0.1 k/uL (0-0.7); Eosinophils % (A) 2 %; HCT 39.2 % (39.0-53.0); HGB 12.8 gm/dL (13.0-17.5); Lymphocytes # (A) 0.8 k/uL (1.0-4.8); Lymphocytes % (A) 17 %; MCH 34.4 pg (25.0-35.0); MCHC 32.7 g/dL (31.0-37.0); MCV 105.3 fL (80.0-100.0); Macrocytosis Moderate; Mean Platelet Volume 10.7; Monocytes # (A) 0.2 k/uL (0-1.0); Monocytes % (A) 4 %; Neutrophils # (A) 3.5 k/uL (1.3-7.7); Neutrophils % (A) 74 %; RBC 3.73 m/uL (4.30-5.90); RDW 14.9 % (11.5-15.5); WBC 4.7 k/uL (3.8-10.6)
[2021-12-15 00:36] LABS: ALT 46 U/L (4-49); AST 175 U/L (17-59); African American GFR (CKD) >90 (>60 ml/min/1.73 sqM); Albumin 4.1 g/dL (3.5-5.0); Alcohol <10 mg/dL; Alkaline Phosphatase 135 U/L (38-126); Amylase 46 U/L (30-110); Anion Gap 20 mmol/L; Blood Urea Nitrogen 8 mg/dL (9-20); Calcium 8.7 mg/dL (8.4-10.2); Carbon Dioxide 17 mmol/L (22-30); Chloride 99 mmol/L (98-107); Glucose 105 mg/dL (74-99); Lipase 55 U/L (23-300); Non-African American GFR(CKD) >90 (>60 ml/min/1.73 sqM); Potassium 3.3 mmol/L (3.5-5.1); Sodium 136 mmol/L (137-145); Total Bilirubin 6.6 mg/dL (0.2-1.3); Total Protein 8.4 g/dL (6.3-8.2)
--- NOTE | 2021-12-15 00:39 | CT ---
EXAMINATION TYPE: CT abdomen pelvis wo con DATE OF EXAM: 12/15/2021 COMPARISON: 09/17/2021 HISTORY: pain CT DLP: 840.1 mGycm Automated exposure control for dose reduction was used. There is some patchy atelectasis at the lung bases. Heart size is normal. No pericardial effusion. Li jessi and spleen are intact. Spleen is enlarged and measures 16.5 cm. Liver somewhat irregular and show s removal density and consistent with cirrhosis. There is abdominal ascites. There are numerous calci fied gallstones. The bile ducts are not dilated. There is no pancreatic mass. Stomach is intact. There is no adrenal mass. Kidneys have normal size. No hydronephrosis. Ureters are not dilated. Bladd er distends smoothly. There is no inguinal hernia. There is no evidence of a bowel obstruction. No free air. Appendix not clearly seen. No sign of thick ened appendix. The lumbar vertebrae have normal alignment. Posterior elements are intact. No compression fracture. B tolu pelvis is intact. The hip joints are intact. There are a few sigmoid diverticula. No diverticulitis. IMPRESSION: There is moderate abdominal ascites. There is irregular liver consistent with cirrhosis. Splenomegaly . There is some patchy atelectasis at the lung bases which is slightly improved compared to old exam. A bdominal ascites slightly improved. Cholelithiasis.
[2021-12-15] MEDS ORDERED: Potassium Replacement Protocol 1 EACH MISC MISCELLANE PRN (00:58)
[2021-12-15] MEDS ORDERED: MAGNESIUM SULFATE-D5W PMX 1 GM in DEXTROSE/WATER 1 100ML.BAG IVPB ONE (00:59)
[2021-12-15 01:00] LABS: Lactic Acid, Venous 1.2 mmol/L (0.7-2.0)
[2021-12-15] MEDS ORDERED: POTASSIUM CHLORIDE ER 20 MEQ TAB.ER PO SCH (01:00)
[2021-12-15 01:02] LABS: INR 1.6 (<1.2); Prothrombin Time 16.8 sec (9.0-12.0)
[2021-12-15] MEDS ORDERED: MORPHINE SULFATE 2 MG/ML SYRINGE IVP STA (01:20)
--- NOTE | 2021-12-15 01:59 | ED ---
Abdominal Pain HPI - General Chief Complaint: Abdominal Pain Stated Complaint: Flank pain, Nausea Time Seen by Provider: 12/14/21 23:37 Source: patient, EMS Mode of arrival: EMS Limitations: no limitations - History of Present Illness Initial Comments: Patient is a 41-year-old male with history of cirrhosis and cholelithiasis presenting with chief complaint of abdominal pain. Patient states he has been experiencing right-sided abdominal pain since he was discharged from the hospital today. Patient was recently admitted for observation for chest pain. He was cleared by cardiology and general surgery for discharge today. He admits to nausea, anxiety, and some back pain. Denies chest pain, shortness of breath, fever, chills, vomiting, diarrhea, hematochezia, melena, dysuria, hematuria, urgency, frequency, URI-like symptoms, palpitations, weakness. - Related Data Home Medications Medication Instructions Recorded Confirmed Folic Acid 1 mg PO DAILY 08/10/21 12/13/21 Calcipotriene [Dovonex] 1 applic TOPICAL BID 12/13/21 12/13/21 Gabapentin [Neurontin] 300 mg PO BID 12/13/21 12/13/21 Melatonin 1 mg PO HS PRN 12/13/21 12/13/21 Triamcinolone 0.1% Ointment 1 applic TOPICAL BID PRN 12/13/21 12/13/21 [Kenalog 0.1% Ointment] Previous Rx's Medication Instructions Recorded Magnesium Oxide [Mag-Ox] 400 mg PO DAILY #30 tablet 05/29/21 Thiamine [Vitamin B-1] 100 mg PO DAILY #30 tablet 05/29/21 Furosemide [Lasix] 40 mg PO DAILY 30 Days #30 tab 09/20/21 Spironolactone [Aldactone] 50 mg PO BID 30 Days #120 tab 09/20/21 Ondansetron Odt [Zofran Odt] 4 mg PO Q8HR PRN #20 tab 12/15/21 Allergies Allergy/AdvReac Type Severity Reaction Status Date / Time ibuprofen [From Motrin] Allergy Swelling Verified 12/13/21 10:22 Lips naproxen Allergy Swelling Verified 12/13/21 10:25 Lips Review of Systems ROS Statement: Those systems with pertinent positive or pertinent negative responses have been documented in the HPI. ROS Other: All systems not noted in ROS Statement are negative. Past Medical History Past Medical History: Hyperlipidemia, Hypertension, Liver Disease, Pneumonia Additional Past Medical History / Comment(s): Alcoholism, past withdrawals with tremors/diaphoresis, elevated LFTs, alcoholic liver cirrhosis, ascities with paracentesis, severe sepsis/aspiration pneumonia, occasional upper back pain. History of Any Multi-Drug Resistant Organisms: None Reported Past Surgical History: No Surgical Hx Reported Additional Past Surgical History / Comment(s): Pt states he has never had surg tiki Past Anesthesia/Blood Transfusion Reactions: Unable to Obtain Additional Past Anesthesia/Blood Transfusion Reaction / Comment(s): Pt states he has never had surgery. Past Psychological History: Depression, PTSD Smoking Status: Current every day smoker Past Alcohol Use History: Occasional Past Drug Use History: None Reported - Past Family History Mother Family Medical History: Cancer Additional Family Medical History / Comment(s): Mother has colon cancer. Father History Unknown: Yes Additional Family Medical History / Comment(s): All pt knows about his father is that he is . General Exam Limitations: no limitations General appearance: alert, in no apparent distress Head exam: Present: atraumatic, normocephalic, normal inspection Eye exam: Present: normal appearance, EOMI. Absent: scleral icterus, periorbital swelling ENT exam: Present: normal exam Neck exam: Present: normal inspection Respiratory exam: Present: normal lung sounds bilaterally. Absent: respiratory distress, wheezes, rales, rhonchi, stridor Cardiovascular Exam: Present: regular rate, normal rhythm, normal heart sounds. Absent: systolic murmur, diastolic murmur, rubs, gallop, clicks GI/Abdominal exam: Present: soft. Absent: distended, tenderness, guarding, rebound, rigid Neurological exam: Present: alert, CN II-XII intact Skin exam: Present: warm, dry, intact, normal color. Absent: rash Course Vital Signs 12/14/21 12/15/21 23:17 03:08 Temperature 98.1 F Pulse Rate 99 95 Respiratory 16 16 Rate Blood Pressure 135/78 126/70 O2 Sat by Pulse 95 95 Oximetry Medical Decision Making - Medical Decision Making Patient is a 41-year-old male presenting for evaluation of right-sided abdominal pain. Admits to nausea and vomiting. Patient was discharged earlier today after observation period for chest pain, he was evaluated by general surgery for cholelithiasis, determined to have alcoholic cirrhosis and instructed to follow- up with his PCP and general surgery outpatient. On examination abdomen is soft, nontender. Some distention due to ascites. No leukocytosis, PT/INR 16.8 and 1.6. Sodium 136 potassium 3.3. AST 175. Bilirubin 6.6. Alk phos 135. Ammonia 39. Serum alcohol less than 10. CT of the abdomen and pelvis shows moderate abdominal ascites and cirrhosis. As well as cholelithiasis. Otherwise no acute process. Patient appears stable for discharge with outpatient follow- up at this time. Follow-up with PCP. Report back to ER with any new or worsening symptoms. Discussed return parameters answered all questions. Patient conveyed verbal understanding and agreed to the plan. I discussed this case with my attending Dr. Do. - Lab Data Result diagrams: 12/15/21 00:14 12/15/21 00:14 Lab Results 12/15/21 12/15/21 12/15/21 Range/Units 00:14 00:14 00:14 WBC 4.7 (3.8-10.6) k/uL RBC 3.73 L (4.30-5.90) m/uL Hgb 12.8 L (13.0-17.5) gm/dL Hct 39.2 (39.0-53.0) % MCV 105.3 H (80.0-100.0) fL MCH 34.4 (25.0-35.0) pg MCHC 32.7 (31.0-37.0) g/dL RDW 14.9 (11.5-15.5) % Plt Count 25 L (150-450) k/uL MPV 10.7 Neutrophils % 74 % Lymphocytes % 17 % Monocytes % 4 % Eosinophils % 2 % Basophils % 1 % Neutrophils # 3.5 (1.3-7.7) k/uL Lymphocytes # 0.8 L (1.0-4.8) k/uL Monocytes # 0.2 (0-1.0) k/uL Eosinophils # 0.1 (0-0.7) k/uL Basophils # 0.1 (0-0.2) k/uL Manual Slide Review Performed Macrocytosis Moderate PT 16.8 H (9.0-12.0) sec INR 1.6 H (<1.2) APTT 26.0 (22.0-30.0) sec Sodium 136 L (137-145) mmol/L Potassium 3.3 L (3.5-5.1) mmol/L Chloride 99 (98-107) mmol/L Carbon Dioxide 17 L (22-30) mmol/L Anion Gap 20 mmol/L BUN 8 L (9-20) mg/dL Creatinine 0.55 L (0.66-1.25) mg/dL Est GFR (CKD-EPI)AfAm >90 (>60 ml/min/1.73 sqM) Est GFR (CKD-EPI)NonAf >90 (>60 ml/min/1.73 sqM) Glucose 105 H (74-99) mg/dL Plasma Lactic Acid Willam (0.7-2.0) mmol/L Calcium 8.7 (8.4-10.2) mg/dL Total Bilirubin 6.6 H (0.2-1.3) mg/dL AST 175 H (17-59) U/L ALT 46 (4-49) U/L Alkaline Phosphatase 135 H (38-126) U/L Ammonia (<30) umol/L Troponin I (0.000-0.034) ng/mL Total Protein 8.4 H (6.3-8.2) g/dL Albumin 4.1 (3.5-5.0) g/dL Amylase 46 (30-110) U/L Lipase 55 (23-300) U/L Serum Alcohol <10 mg/dL 12/15/21 12/15/21 Range/Units 00:14 00:14 WBC (3.8-10.6) k/uL RBC (4.30-5.90) m/uL Hgb (13.0-17.5) gm/dL Hct (39.0-53.0) % MCV (80.0-100.0) fL MCH (25.0-35.0) pg MCHC (31.0-37.0) g/dL RDW (11.5-15.5) % Plt Count (150-450) k/uL MPV Neutrophils % % Lymphocytes % % Monocytes % % Eosinophils % % Basophils % % Neutrophils # (1.3-7.7) k/uL Lymphocytes # (1.0-4.8) k/uL Monocytes # (0-1.0) k/uL Eosinophils # (0-0.7) k/uL Basophils # (0-0.2) k/uL Manual Slide Review Macrocytosis PT (9.0-12.0) sec INR (<1.2) APTT (22.0-30.0) sec Sodium (137-145) mmol/L Potassium (3.5-5.1) mmol/L Chloride (98-107) mmol/L Carbon Dioxide (22-30) mmol/L Anion Gap mmol/L BUN (9-20) mg/dL Creatinine (0.66-1.25) mg/dL Est GFR (CKD-EPI)AfAm (>60 ml/min/1.73 sqM) Est GFR (CKD-EPI)NonAf (>60 ml/min/1.73 sqM) Glucose (74-99) mg/dL Plasma Lactic Acid Willam 1.2 (0.7-2.0) mmol/L Calcium (8.4-10.2) mg/dL Total Bilirubin (0.2-1.3) mg/dL AST (17-59) U/L ALT (4-49) U/L Alkaline Phosphatase (38-126) U/L Ammonia 39 H (<30) umol/L Troponin I <0.012 (0.000-0.034) ng/mL Total Protein (6.3-8.2) g/dL Albumin (3.5-5.0) g/dL Amylase (30-110) U/L Lipase (23-300) U/L Serum Alcohol mg/dL Disposition Clinical Impression: Abdominal pain, Alcoholic cirrhosis of liver with ascites Disposition: HOME SELF-CARE Condition: Fair Instructions (If sedation given, give patient instructions): Abdominal Pain (ED) Additional Instructions: Follow-up with PCP. Report back to ER with any new or worsening symptoms. Prescriptions: Ondansetron Odt [Zofran Odt] 4 mg PO Q8HR PRN #20 tab PRN Reason: Nausea Is patient prescribed a controlled substance at d/c from ED?: No Referrals: [facility],Clinic [Primary Care Provider] - 1-2 days Time of Disposition: 02:44
[2021-12-15 02:11] LABS: Platelet Count 25 k/uL (150-450)
[2021-12-15 03:10] VITALS: BP 126/70; PULSE 95
[2021-12-15] MEDS ORDERED: THIAMINE 100 MG TAB PO SCH (17:30)
== END 2021-12-15 03:27 | disposition home or self-care (01) ==
LOC: EC 23:15
DX: K70.31 Alcoholic cirrhosis of liver with ascites (principal); F17.200 Nicotine dependence, unspecified, uncomplicated; I10 Essential (primary) hypertension; Z88.6 Allergy status to analgesic agent; Z79.899 Other long term (current) drug therapy; Z88.8 Allergy status to other drugs, medicaments and biological substances
CPT/HCPCS: 36415; 80053; 82140; 82150; 83605; 83690; 84484; 85025; 85610; 85730; 80320; 74176; 99284; 96375; 96365; 96372; J3411; J2405; J2270; J3475

== ENCOUNTER 2022-04-11 15:37 | Inpatient (IN) | payer OTHER ==
[2022-04-11] MEDS ORDERED: ONDANSETRON 4 MG/2 ML VIAL IVP STA (18:40)
[2022-04-11] MEDS ORDERED: PANTOPRAZOLE 40 MG/10 ML VIAL IVP STA (18:40)
[2022-04-11] MEDS ORDERED: MORPHINE SULFATE 4 MG/ML SYRINGE IV STA (18:40)
[2022-04-11] MEDS: SODIUM CHLORIDE 0.9% 500 ML 500 ML IV STA ×3 (18:49→19:45)
[2022-04-11] MEDS ORDERED: MORPHINE SULFATE 4 MG/ML SYRINGE IVP STA (19:10)
[2022-04-11 19:30] LABS: ALT 30 U/L (4-49); AST 93 U/L (17-59); African American GFR (CKD) >90 (>60 ml/min/1.73 sqM); Alkaline Phosphatase 104 U/L (38-126); Amylase 43 U/L (30-110); Anion Gap 18 mmol/L; Blood Urea Nitrogen 16 mg/dL (9-20); Calcium 7.6 mg/dL (8.4-10.2); Carbon Dioxide 16 mmol/L (22-30); Chloride 109 mmol/L (98-107); Glucose 104 mg/dL (74-99); Lipase 94 U/L (23-300); Non-African American GFR(CKD) >90 (>60 ml/min/1.73 sqM); Sodium 143 mmol/L (137-145); Total Bilirubin 3.6 mg/dL (0.2-1.3)
[2022-04-11 19:31] LABS: Potassium 4.4 mmol/L (3.5-5.1)
[2022-04-11 19:45] LABS: Partial Thromboplastin Time 27.5 sec (22.0-30.0); Prothrombin Time 19.3 sec (9.0-12.0)
--- NOTE | 2022-04-11 19:49 | XR ---
EXAMINATION TYPE: XR chest 1V portable DATE OF EXAM: 04/11/2022 7:17 PM COMPARISON: Chest radiographs from 12/12/2021 TECHNIQUE: XR chest 1V portable Portable AP radiograph of the chest. CLINICAL INDICATION:Male, 42 years old with history of abdominal pain; FINDINGS: Lungs/Pleura: There is no evidence of pleural effusion, focal consolidation, or pneumothorax. Pulmonary vascularity: Unremarkable. Heart/mediastinum: Cardiomediastinal silhouette is unremarkable. Musculoskeletal: No acute osseous pathology. IMPRESSION: 1. No acute cardiopulmonary disease/process. 2. No definitive hernia.
--- NOTE | 2022-04-11 19:53 | XR ---
EXAMINATION TYPE: XR KUB DATE OF EXAM: 04/11/2022 7:17 PM INDICATION: Patient age:Male; 42 years old; Reason for study: abdominal pain; COMPARISON: CT 12/15/2021. TECHNIQUE: One radiographic view of the abdomen was obtained. FINDINGS: The bowel gas pattern is nonspecific without dilated loops of small or large bowel. There i s no evidence for organomegaly or pneumoperitoneum. The osseous structures are intact. No abnormal calcifications are present. Fecal material and gas are demonstrated throughout the colon and rectum. IMPRESSION: Nonspecific bowel gas pattern without radiographic evidence for acute process.
--- NOTE | 2022-04-11 20:13 | ED ---
General Adult HPI - General Chief complaint: Weakness Stated complaint: Weakness Time Seen by Provider: 04/11/22 18:12 Source: patient, RN notes reviewed, old records reviewed Mode of arrival: EMS - History of Present Illness Initial comments: Patient is a 42-year-old male with past medical history remarkable for liver cirrhosis, prior alcohol abuse, hypertension, hyperlipidemia, chronic liver disease who presents emergency Department complaining of generalized weakness as well as right-sided abdominal pain that has been ongoing for the last week. Also states that his belly seems slightly more bloated than normal. States he has required paracenteses 1 time in the past but is not a recurrent procedure for him. Denies constipation. Endorses nausea and nonbilious nonbloody emesis. Denies fevers, chills, cough, chest pain. Denies any urinary complaints. Has no other acute complaints at this time. Resents for further evaluation at this time. - Related Data Home Medications Medication Instructions Recorded Confirmed Folic Acid 1 mg PO DAILY 08/10/21 04/11/22 Potassium Gluconate [Potassium 99 mg PO DAILY 04/11/22 04/11/22 Gluconate ER] Previous Rx's Medication Instructions Recorded Magnesium Oxide [Mag-Ox] 400 mg PO DAILY #30 tablet 05/29/21 Thiamine [Vitamin B-1] 100 mg PO DAILY #30 tablet 05/29/21 Allergies Allergy/AdvReac Type Severity Reaction Status Date / Time ibuprofen [From Motrin] Allergy Swelling Verified 04/11/22 21:18 Lips naproxen Allergy Swelling Verified 04/11/22 21:18 Lips Review of Systems ROS Statement: Those systems with pertinent positive or pertinent negative responses have been documented in the HPI. Review of Systems: CONST: Denies fever EYES: Denies blurry vision ENT: Denies nasal congestion C/V: Denies Chest pain RESP: Denies shortness of breath GI: Endorses abdominal pain : Denies dysuria SKIN: Denies rash. MSK: Denies joint pain. NEURO: Denies headache ROS Other: All systems not noted in ROS Statement are negative. Past Medical History Past Medical History: Hyperlipidemia, Hypertension, Liver Disease, Pneumonia Additional Past Medical History / Comment(s): Alcoholism, past withdrawals with tremors/diaphoresis, elevated LFTs, alcoholic liver cirrhosis, ascities with paracentesis, severe sepsis/aspiration pneumonia, occasional upper back pain. History of Any Multi-Drug Resistant Organisms: None Reported Past Surgical History: No Surgical Hx Reported Additional Past Surgical History / Comment(s): Pt states he has never had surgery Past Anesthesia/Blood Transfusion Reactions: Unable to Obtain Additional Past Anesthesia/Blood Transfusion Reaction / Comment(s): Pt states he has never had surgery. Past Psychological History: Depression, PTSD Smoking Status: Current every day smoker Past Alcohol Use History: Occasional Past Drug Use History: None Reported - Past Family History Mother Family Medical History: Cancer Additional Family Medical History / Comment(s): Mother has colon cancer. Father History Unknown: Yes Additional Family Medical History / Comment(s): All pt knows about his father is that he is . General Exam - General Exam Comments Initial Comments: General: Appears in moderate distress secondary to abdominal discomfort. HEAD: Normal with no signs of head trauma. EYES: PERRLA, EOMI, conjunctiva normal, no discharge. Mild scleral icterus ENT: Hearing grossly intact, normal oropharynx. RESPIRATORY: Clear breath sounds bilaterally. No wheezes, rales, or rhonchi. C/V: Regular rate and rhythm. S1 and S2 auscultated, no edema, peripheral pulses 2+ and intact throughout ABD: Abdomen is distended. Somewhat soft. Tender to palpation on the right upper/mid/lower abdomen. No tenderness of the left abdomen. No guarding. No rebound tenderness. No CVA tenderness to percussion. EXT: Normal range of motion, no obvious deformity SKIN: No rashes or lesions observed on exposed skin. Mild jaundice NEURO: Alert and oriented x 4. Cranial nerves II-XII intact. No focal sensory or strength deficits. 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 He does appear clinically dry as well as some mildly dry mucous membranes. He will be given a small fluid bolus, as well as treat his pain and nausea. Patient was in agreement this plan. Vital signs are within acceptable limits. EKG revealed no evidence of acute ischemia. There are chronic EKG changes seen on prior EKGs. Chest x-ray as interpreted by myself reveals no evidence of acute cardio Poni process. Patient's KUB x-ray as interpreted by myself reveals no acute intra-abdominal process. No obvious free air. Patient's laboratory studies were remarkable for a chronic anemia with a hemoglobin of 11.3 which seems stable. Patient has an elevated INR, PTT in the setting of alcoholic liver disease/cirrhosis. Patient does have a barky acidosis which is likely from lactic acidosis which is likely from his chronic liver disease as well as possible infectious process, as well as some mild dehydration due to nausea and vomiting. Total bilirubin is elevated at 3.6. His lower than when he has been in the past. LFTs, pancreatic enzymes are within acceptable limits. Urine is still pending at this time. Flu, RSV, Covid are negative. On reevaluation, patient still having pain. Did recommend we obtain a CT of the pelvis at this time. He was in agreement this plan. CT abdomen and pelvis is noted by myself reveals a distended gallbladder. There are multiple gallstones seen as well. There is also ascites present. Radiology also sees multiple ventral wall hernias present as well as portal venous hypertension. I updated the patient. I believe he requires admission. There is concern for cholecystitis. Less likely SBP as the patient is having focal tenderness over the right upper and right mid abdomen. Not diffuse tenderness with ascitic fluid present. Patient was started on broad-spectrum antibiotics. We will continue IV fluids as well and a maintenance rate. They do not want of volume overload the patient. Lactic acid is likely secondary to his chronic alcoholic liver disease. I did speak with surgery on-call, Dr. Teixeira initially. He requested a medical admit as he is not convinced this is cholecystitis at this time is uncertain if he will perform surgery. Requested that we attempt to reverse his INR with [facility] as well as I will provide him with a dose of vitamin K. I did speak with Dr. Aldridge regarding the patient, as is the patient is mainly being admitted for concern for cholecystitis, believes that this should be a surgical admission which is not unreasonable. I reached back out to Dr. Teixeira at this time regarding this concern, I once again reiterated that he is uncertain if this is surgical. He states he is not convinced that the patient has cholecystitis as there is no elevated alk phos and only minimally elevated AST and ALT. Requested a right upper quadrant ultrasound to further evaluate and he will evaluate the patient the morning. I did discuss these concerns with Dr. Aldridge who at this time did accept the admission. Patient was admitted in stable condition. - Lab Data Result diagrams: 04/11/22 20:14 04/11/22 16:50 Lab Results 04/11/22 04/11/22 04/11/22 Range/Units 16:50 16:50 16:50 WBC (3.8-10.6) k/uL RBC (4.30-5.90) m/uL Hgb (13.0-17.5) gm/dL Hct (39.0-53.0) % MCV (80.0-100.0) fL MCH (25.0-35.0) pg MCHC (31.0-37.0) g/dL RDW (11.5-15.5) % Plt Count (150-450) k/uL MPV Neutrophils % % Lymphocytes % % Monocytes % % Eosinophils % % Basophils % % Neutrophils # (1.3-7.7) k/uL Lymphocytes # (1.0-4.8) k/uL Monocytes # (0-1.0) k/uL Eosinophils # (0-0.7) k/uL Basophils # (0-0.2) k/uL PT 19.3 H (9.0-12.0) sec INR 2.0 H (<1.2) APTT 27.5 (22.0-30.0) sec Sodium 143 (137-145) mmol/L Potassium 4.4 (3.5-5.1) mmol/L Chloride 109 H (98-107) mmol/L Carbon Dioxide 16 L (22-30) mmol/L Anion Gap 18 mmol/L BUN 16 (9-20) mg/dL Creatinine 0.56 L (0.66-1.25) mg/dL Est GFR (CKD-EPI)AfAm >90 (>60 ml/min/1.73 sqM) Est GFR (CKD-EPI)NonAf >90 (>60 ml/min/1.73 sqM) Glucose 104 H (74-99) mg/dL Lactic Ac Sepsis Rflx Plasma Lactic Acid Willam 5.9 H* (0.7-2.0) mmol/L Calcium 7.6 L (8.4-10.2) mg/dL Total Bilirubin 3.6 H (0.2-1.3) mg/dL AST 93 H (17-59) U/L ALT 30 (4-49) U/L Alkaline Phosphatase 104 (38-126) U/L Total Protein 8.0 (6.3-8.2) g/dL Albumin 4.0 (3.5-5.0) g/dL Amylase 43 (30-110) U/L Lipase 94 (23-300) U/L Influenza Type A (PCR) (Not Detectd) Influenza Type B (PCR) (Not Detectd) RSV (PCR) (Not Detectd) SARS-CoV-2 (PCR) (Not Detectd) 04/11/22 04/11/22 04/11/22 Range/Units 19:05 19:34 20:14 WBC 7.3 (3.8-10.6) k/uL RBC 3.25 L (4.30-5.90) m/uL Hgb 11.3 L (13.0-17.5) gm/dL Hct 31.6 L (39.0-53.0) % MCV 97.1 (80.0-100.0) fL MCH 34.9 (25.0-35.0) pg MCHC 35.9 (31.0-37.0) g/dL RDW 15.1 (11.5-15.5) % Plt Count 101 L (150-450) k/uL MPV 8.3 Neutrophils % 58 % Lymphocytes % 32 % Monocytes % 6 % Eosinophils % 2 % Basophils % 1 % Neutrophils # 4.2 (1.3-7.7) k/uL Lymphocytes # 2.3 (1.0-4.8) k/uL Monocytes # 0.4 (0-1.0) k/uL Eosinophils # 0.1 (0-0.7) k/uL Basophils # 0.1 (0-0.2) k/uL PT (9.0-12.0) sec INR (<1.2) APTT (22.0-30.0) sec Sodium (137-145) mmol/L Potassium (3.5-5.1) mmol/L Chloride (98-107) mmol/L Carbon Dioxide (22-30) mmol/L Anion Gap mmol/L BUN (9-20) mg/dL Creatinine (0.66-1.25) mg/dL Est GFR (CKD-EPI)AfAm (>60 ml/min/1.73 sqM) Est GFR (CKD-EPI)NonAf (>60 ml/min/1.73 sqM) Glucose (74-99) mg/dL Lactic Ac Sepsis Rflx Y Plasma Lactic Acid Willam (0.7-2.0) mmol/L Calcium (8.4-10.2) mg/dL Total Bilirubin (0.2-1.3) mg/dL AST (17-59) U/L ALT (4-49) U/L Alkaline Phosphatase (38-126) U/L Total Protein (6.3-8.2) g/dL Albumin (3.5-5.0) g/dL Amylase (30-110) U/L Lipase (23-300) U/L Influenza Type A (PCR) Not Detected (Not Detectd) Influenza Type B (PCR) Not Detected (Not Detectd) RSV (PCR) Not Detected (Not Detectd) SARS-CoV-2 (PCR) Not Detected (Not Detectd) - EKG Data -: EKG Interpreted by Me EKG Comments: 12-lead Electrocardiogram Interpretation Note EKG was reviewed and interpreted by myself. 12-lead ECG performed at 1834 is interpreted by me as revealing normal sinus rhythm at a rate of 84 beats per minute. Foster is normal. WV interval is 131 ms, QRS duration is 114 ms, QTc is 457 ms. Patient does have atypical morphology in leads V2, V3 which is redemonstrated on prior EKGs including from November 2021.. There were no ST or T wave abnormalities to suggest myocardial ischemia or injury. R wave progression across the precordium was satisfactory. By my interpretation this EKG is non- diagnostic for acute ischemia. When compared to EKG from November 2021, no significant change. Critical Care Time Critical Care Time: Yes Total Critical Care Time: 35 Critical Care Time: Upon my evaluation, this patient had a high probability of imminent or life-thr eatening deterioration due to concern for cholecystitis, ascites, cirrhotic liver disease, which required my direct attention, intervention, and personal management. I have personally provided 35 minutes of critical care time exclusive of time spent on separately billable procedures. Time includes review of laboratory data, radiology results, discussion with consultants, and monitoring for potential decompensation. Interventions were performed as documented in my note. Disposition Clinical Impression: Abdominal pain, Alcoholic liver disease, Elevated INR, Ascites, Lactic acidosis Disposition: ADMITTED IP TO THIS HOSP Condition: Stable Referrals: [facility],Clinic [Primary Care Provider] - 1-2 days Time of Disposition: 21:45
[2022-04-11 20:43] LABS: Basophils # (A) 0.1 k/uL (0-0.2); Basophils % (A) 1 %; Eosinophils # (A) 0.1 k/uL (0-0.7); Eosinophils % (A) 2 %; HCT 31.6 % (39.0-53.0); HGB 11.3 gm/dL (13.0-17.5); Lymphocytes # (A) 2.3 k/uL (1.0-4.8); Lymphocytes % (A) 32 %; MCH 34.9 pg (25.0-35.0); MCHC 35.9 g/dL (31.0-37.0); MCV 97.1 fL (80.0-100.0); Mean Platelet Volume 8.3; Monocytes # (A) 0.4 k/uL (0-1.0); Monocytes % (A) 6 %; Neutrophils # (A) 4.2 k/uL (1.3-7.7); Neutrophils % (A) 58 %; Platelet Count 101 k/uL (150-450); RBC 3.25 m/uL (4.30-5.90); RDW 15.1 % (11.5-15.5); WBC 7.3 k/uL (3.8-10.6)
--- NOTE | 2022-04-11 21:16 | CT ---
EXAMINATION TYPE: CT abdomen pelvis wo/w con CT DLP: 2612.9 mGycm, Automated exposure control for dose reduction was used. DATE OF EXAM: 04/11/2022 8:42 PM COMPARISON: CT abdomen pelvis most recent from 12/15/2021 CLINICAL INDICATION:Male, 42 years old with history of Right sided abd pain, eval for ischemic bowel; Right sided abd pain, eval for ischemic bowel poss hernia. TECHNIQUE: Axial CT of the abdomen and pelvis. Sagittal and coronal reformats were created on a Echograph workstation. Contrast used:100 mL of Isovue 370 without and with IV Contrast, Oral contrast used: without Oral Contrast FINDINGS: LOWER CHEST: Right gynecomastia changes. ABDOMEN LIVER: Unremarkable GALLBLADDER AND BILE DUCTS: The gallbladder is distended with multiple gallstones measuring up to 12. 5 x 4.5 cm. PANCREAS: Unremarkable. SPLEEN: Spleen is enlarged measuring up to 14.1 cm. ADRENAL GLANDS: Unremarkable. KIDNEYS AND URETERS: No evidence of hydronephrosis or renal calculus. The ureters are unremarkable. PELVIS BLADDER: Unremarkable REPRODUCTIVE: Unremarkable. ABDOMEN & PELVIS STOMACH AND BOWEL: No evidence of bowel obstruction. The colon is relatively nondistended. Frontal th ickening of the colon most pronounced on the right colon. PERITONEUM: No evidence of pneumoperitoneum. There is large amount of free fluid in the abdomen and p sana. VASCULATURE: No evidence of aortic aneurysm. Recanalization of the paraumbilical vein. There is upper abdominal varices. MUSCULOSKELETAL: No acute osseous abnormalities LYMPH NODES: No gross evidence for lymphadenopathy. SOFT TISSUE/ABDOMINAL WALL: Ventral hernias containing fluid. IMPRESSION: 1. Distended gallbladder with multiple gallstones, correlate for acute cholecystitis. 2. Hepatic cirrhosis with large volume ascites. Thickening of the colon castañeda favored represent hepa tic colopathy. Ascites has increased in size from prior on 12/15/2021. Evidence of portal hypertension with splenic mammogram the cannulization of the periumbilical vein and upper abdominal varices. Mult iple ventral wall hernias containing fluid.
[2022-04-11] MEDS ORDERED: SODIUM CHLORIDE 0.9% 1,000 ML IV STA ×2 (21:30→21:33)
[2022-04-11] MEDS ORDERED: PHYTONADIONE 5 MG in SODIUM CHLORIDE 0.9% 50 ML IVPB STA (21:32)
[2022-04-11] MEDS ORDERED: VANCOMYCIN IV PER PHARMACY 1 EACH MISC MISCELLANE PRN (21:34)
[2022-04-11] MEDS ORDERED: NALOXONE 0.4 MG/ML 1 ML VIAL IV PRN (21:42)
[2022-04-11] MEDS ORDERED: PIPERACILLIN-TAZOBACTAM 3.375 GM in SODIUM CHLORIDE 0.9% 100 ML IVPB ONE (21:45)
[2022-04-11] MEDS ORDERED: VANCOMYCIN 1,500 MG in SODIUM CHLORIDE 0.9% 500 ML 500 ML IVPB ONE (22:00)
[2022-04-11] MEDS: HYDROmorphone 0.5 MG/0.5 ML SYRINGE IVP PRN (22:01)
--- NOTE | 2022-04-11 22:55 | US ---
EXAMINATION TYPE: US gallbladder DATE OF EXAM: 04/11/2022 COMPARISON: NONE CLINICAL HISTORY: eval for cholecystitis. Right upper quadrant pain TECHNIQUE: Multiple sonographic images of the right upper quadrant are obtained. Comparison 09/11/2021 FINDINGS: EXAM MEASUREMENTS: Liver Length: 19.4 cm Gallbladder Wall: 0.42 cm CBD: 1.42 cm Right Kidney: 11.5 x 4.6 x 4.7 cm TENANT RELATIONS COORDINATOR NOTES:Exam limited by overlying bowel gas Pancreas: Obscured by bowel gas Liver: Heterogenous, lobulated, surrounded by free fluid. Main portal vein with hepatopedal flow wi th varices visualized. Gallbladder: Enlarged at 12.7cm with layering echogenic non shadowing foci, possibly sludge. Thicke susanne wall Evidence for sonographic Ricardo's sign: Yes CBD: Dilated Right Kidney: wnl Ascites present IMPRESSION: There is abdominal ascites. No gallstones or dilated ducts. There is some echogenic bile. There is ev idence for some varices at the jesús hepatis. This is suggestive of portal venous hypertension. Liver is somewhat irregular. This is consistent with cirrhosis. No discrete liver mass. No significant jennifer nge compared to old exam.
--- NOTE | 2022-04-11 23:15 | P.GSCN ---
History of Present Illness Consult date: 04/11/22 Reason for Consult: chronic RUQ pain Requesting physician: Abhishek Ruby History of present illness: History of present illness: Patient was admitted from ER for recurrent complaints of some epigastric and RUQ pain and fatigue and generalized weakness. He underwent CT abdomen and pelvis t hat showed cholelithiasis, no evidence of thickened gallbladder wall NO acute cholecystitis, large ascites and evidence of cirrhotic liver. Patient's resting comfortably in his bed. He has multiple admits secondary to his liver cirrhosis requiring paracentesis, management of alcohol withdrawal, metabolic derangement secondary to his alcoholism, and deliriums/encephalopathy. He was seen by surgery for the same problem back in November 2021. They recommended outpatient cholecystectomy after optimizing medically and getting his liver failure under control. At that time his INR was 1.5, now his INR is 2.0 and now he has moderate ascites. Review of Systems - Constitutional Reports anorexia, Reports fatigue, Reports weakness, Reports weight gain, Denies chills, Denies fever, Denies lethargy, Denies sweats - Cardiovascular Reports as per HPI, Reports decreased exercise tolerance, Reports dyspnea on exertion, Reports edema, Reports leg edema, Denies chest pain - Respiratory Reports cough, Reports cough with sputum, Reports dyspnea - Gastrointestinal Reports abdominal pain, Reports constipation, Reports heartburn, Reports jaundice, Reports loss of appetite, Reports nausea, Reports vomiting, Denies belching, Denies bloating, Denies BRBPR, Denies change in bowel habits, Denies coffee ground emesis, Denies diarrhea, Denies hematemesis, Denies hematochezia, Denies melena Past Medical History Past Medical History: Hyperlipidemia, Hypertension, Liver Disease, Pneumonia Additional Past Medical History / Comment(s): Alcoholism, past withdrawals with tremors/diaphoresis, elevated LFTs, alcoholic liver cirrhosis, ascities with paracentesis, severe sepsis/aspiration pneumonia, occasional upper back pain. History of Any Multi-Drug Resistant Organisms: None Reported Past Surgical History: No Surgical Hx Reported Additional Past Surgical History / Comment(s): Pt states he has never had surgery Past Anesthesia/Blood Transfusion Reactions: Unable to Obtain Additional Past Anesthesia/Blood Transfusion Reaction / Comm: Pt states he has never had surgery. Past Psychological History: Depression, PTSD Smoking Status: Current every day smoker Past Alcohol Use History: Occasional Past Drug Use History: None Reported - Past Family History Mother Family Medical History: Cancer Additional Family Medical History / Comment(s): Mother has colon cancer. Father History Unknown: Yes Additional Family Medical History / Comment(s): All pt knows about his father is that he is . Medications and Allergies Home Medications Medication Instructions Recorded Confirmed Type Magnesium Oxide [Mag-Ox] 400 mg PO DAILY #30 tablet 05/29/21 04/11/22 Rx Thiamine [Vitamin B-1] 100 mg PO DAILY #30 tablet 05/29/21 04/11/22 Rx Folic Acid 1 mg PO DAILY 08/10/21 04/11/22 History Potassium Gluconate [Potassium 99 mg PO DAILY 04/11/22 04/11/22 History Gluconate ER] Allergies Allergy/AdvReac Type Severity Reaction Status Date / Time ibuprofen [From Motrin] Allergy Swelling Verified 04/11/22 21:18 Lips naproxen Allergy Swelling Verified 04/11/22 21:18 Lips Surgical - Exam Vital Signs Temp Pulse Resp BP Pulse Ox 98.5 F 103 H 18 110/62 98 04/11/22 15:41 04/11/22 15:41 04/11/22 15:41 04/11/22 15:41 04/11/22 15:41 - General no distress, no pain, cachectic - Eyes PERRL, normal ocular movement, icteric - Neck no lymphadectomy, no deviated trachea - Respiratory bilateral: rales - Cardiovascular Rhythm: regular Heart Sounds: normal: S1, S2 Abnormal Heart Sounds: no systolic murmur - Abdomen Abdomen: soft, non tender, no tender, no rigid, no rebound - Neurologic normal coordination, normal sensation - Psychiatric oriented to time, oriented to person, oriented to place Results - Labs 04/11/22 20:14 04/11/22 16:50 Abnormal Lab Results - Last 24 Hours (Table) 04/11/22 04/11/22 04/11/22 Range/Units 16:50 16:50 16:50 RBC (4.30-5.90) m/uL Hgb (13.0-17.5) gm/dL Hct (39.0-53.0) % Plt Count (150-450) k/uL PT 19.3 H (9.0-12.0) sec INR 2.0 H (<1.2) Chloride 109 H (98-107) mmol/L Carbon Dioxide 16 L (22-30) mmol/L Creatinine 0.56 L (0.66-1.25) mg/dL Glucose 104 H (74-99) mg/dL Plasma Lactic Acid Willam 5.9 H* (0.7-2.0) mmol/L Calcium 7.6 L (8.4-10.2) mg/dL Total Bilirubin 3.6 H (0.2-1.3) mg/dL AST 93 H (17-59) U/L 04/11/22 Range/Units 20:14 RBC 3.25 L (4.30-5.90) m/uL Hgb 11.3 L (13.0-17.5) gm/dL Hct 31.6 L (39.0-53.0) % Plt Count 101 L (150-450) k/uL PT (9.0-12.0) sec INR (<1.2) Chloride (98-107) mmol/L Carbon Dioxide (22-30) mmol/L Creatinine (0.66-1.25) mg/dL Glucose (74-99) mg/dL Plasma Lactic Acid Willam (0.7-2.0) mmol/L Calcium (8.4-10.2) mg/dL Total Bilirubin (0.2-1.3) mg/dL AST (17-59) U/L Diabetes panel 04/11/22 Range/Units 16:50 Sodium 143 (137-145) mmol/L Potassium 4.4 (3.5-5.1) mmol/L Chloride 109 H (98-107) mmol/L Carbon Dioxide 16 L (22-30) mmol/L BUN 16 (9-20) mg/dL Creatinine 0.56 L (0.66-1.25) mg/dL Glucose 104 H (74-99) mg/dL Calcium 7.6 L (8.4-10.2) mg/dL AST 93 H (17-59) U/L ALT 30 (4-49) U/L Alkaline Phosphatase 104 (38-126) U/L Total Protein 8.0 (6.3-8.2) g/dL Albumin 4.0 (3.5-5.0) g/dL Calcium panel 04/11/22 Range/Units 16:50 Calcium 7.6 L (8.4-10.2) mg/dL Albumin 4.0 (3.5-5.0) g/dL Pituitary panel 04/11/22 Range/Units 16:50 Sodium 143 (137-145) mmol/L Potassium 4.4 (3.5-5.1) mmol/L Chloride 109 H (98-107) mmol/L Carbon Dioxide 16 L (22-30) mmol/L BUN 16 (9-20) mg/dL Creatinine 0.56 L (0.66-1.25) mg/dL Glucose 104 H (74-99) mg/dL Calcium 7.6 L (8.4-10.2) mg/dL Adrenal panel 04/11/22 Range/Units 16:50 Sodium 143 (137-145) mmol/L Potassium 4.4 (3.5-5.1) mmol/L Chloride 109 H (98-107) mmol/L Carbon Dioxide 16 L (22-30) mmol/L BUN 16 (9-20) mg/dL Creatinine 0.56 L (0.66-1.25) mg/dL Glucose 104 H (74-99) mg/dL Calcium 7.6 L (8.4-10.2) mg/dL Total Bilirubin 3.6 H (0.2-1.3) mg/dL AST 93 H (17-59) U/L ALT 30 (4-49) U/L Alkaline Phosphatase 104 (38-126) U/L Total Protein 8.0 (6.3-8.2) g/dL Albumin 4.0 (3.5-5.0) g/dL Assessment and Plan (1) Abdominal pain Narrative/Plan: Patient was admitted from ER for recurrent complaints of some epigastric and RUQ pain and fatigue and generalized weakness. He underwent CT abdomen and pelvis that showed cholelithiasis, no evidence of thickened gallbladder wall NO acute cholecystitis, large ascites and evidence of cirrhotic liver. Patient's resting comfortably in his bed. He has multiple admits secondary to his liver cirrhosis requiring paracentesis, management of alcohol withdrawal, metabolic derrangement secondary to his alcoholism, and deleriums/encephalopathy. He was seen by surgery for the same problem back in November 2021. They recommended outpatient cholecystectomy after optimizing medically and getting his liver failure under control. At that time his INR was 1.5, now his INR is 2.0 and now he has moderate ascites. Agree with admission for generalized weakness and fatigue. No evidence of acute cholecystitis by CT scan (no leukocytosis, no elevated alk phosphatase, AST and ALT within normal limits). Would recommend an abdominal ultrasound for better evaluation of the gall bladder and CBD. Would consider cholecystectomy during this admission only if the patient is deemed stable by GI, and once his INR is less than 1.5. Will continue to follow. Thank you for the consult. Current Visit: Yes Status: Acute Code(s): R10.9 - UNSPECIFIED ABDOMINAL PAIN SNOMED Code(s): 51251801 (2) Alcoholic liver disease Current Visit: Yes Status: Acute Code(s): K70.9 - ALCOHOLIC LIVER DISEASE, UNSPECIFIED SNOMED Code(s): 58445455 (3) Ascites Current Visit: Yes Status: Acute Code(s): R18.8 - OTHER ASCITES SNOMED Code(s): 574378011 (4) Elevated INR Current Visit: Yes Status: Acute Code(s): R79.1 - ABNORMAL COAGULATION PROFILE SNOMED Code(s): 731842737 (5) Lactic acidosis Current Visit: Yes Status: Acute Code(s): E87.20 - ACIDOSIS, UNSPECIFIED SNOMED Code(s): 30265668 (6) Acute alcoholic hepatitis Current Visit: No Status: Acute Code(s): K70.10 - ALCOHOLIC HEPATITIS WITHOUT ASCITES SNOMED Code(s): 6529772 (7) Alcohol abuse Current Visit: No Status: Acute Code(s): F10.10 - ALCOHOL ABUSE, UNCO MPLICATED SNOMED Code(s): 79313341 (8) Alcoholic cirrhosis of liver with ascites Current Visit: No Status: Acute Code(s): K70.31 - ALCOHOLIC CIRRHOSIS OF LIVER WITH ASCITES SNOMED Code(s): 935134040 (9) Jaundice Current Visit: No Status: Acute Code(s): R17 - UNSPECIFIED JAUNDICE SNOMED Code(s): 16987378
[2022-04-12] MEDS: ONDANSETRON 4 MG/2 ML VIAL IVP PRN ×3 (00:10→19:37)
[2022-04-12] MEDS ORDERED: MORPHINE SULFATE 2 MG/ML SYRINGE IVP STA (00:12)
--- NOTE | 2022-04-12 02:24 | P.HPIM ---
History of Present Illness H&P Date: 04/11/22 The patient is a 26-year-old female with a PMH of pancreatic divisum, recurrent episodes of acute pancreatitis with nonalcoholic fatty liver disease who presents to the emergency room with complaints of abdominal pain with nausea and vomiting. The patient reports that he has been experiencing intermittent diffuse abdominal pain over the past several weeks, but that earlier today he developed a new right upper quadrant abdominal discomfort, 8 out of 10 at maximal intensity, aching in nature, with no alleviating or exacerbating features. Does report mild nausea without vomiting. Denied experiencing fever, chills, chest pain, shortness of breath, diarrhea. Patient continues to drink would last alcoholic beverage earlier today. CT abdomen and pelvis revealed findings suspicious for acute cholecystitis as well as hepatic cirrhosis with large volume ascites, increased from prior with evidence of portal hypertension. Gallbladder ultrasound also revealed abdominal ascites without any obvious findings for acute cholecystitis. Chest x-ray was unremarkable. EKG revealed sinus rhythm at 84 bpm with an incomplete right bundle branch block. Laboratory evaluation was remarkable for lactic acid 5.9, INR 2.0 (previously 1.6), total bilirubin 3.6, AST 93, ALT 30, and platelet count 101. The case was discussed with the ED physician in detail. He reportedly discussed the case with general surgery who noted that the patient should be admitted to the medicine service due to worsening liver failure and need for medical optimization as well as GI evaluation prior to any plans for surgical intervention. The case was thereby discussed with the ED physician from subsequent shift as admitting provider had left. The [facility] provider agreed to transfer the patient, although the patient was admitted and taken to the medical floor before the ED physician could initiate the transplant. The case was subsequently presented to [facility] by the magazine writer and was accepted by Dr Trejo. Review of systems: Pertinent positives and negatives as discussed in HPI, a complete review of systems was performed and all other systems are negative. Physical examination: General: Ill-appearing jaundiced male, no distress, appears significantly older than stated age Derm: no unusual rashes/lesions, warm Head: atraumatic, normocephalic, symmetric Eyes: EOMI, no lid lag, scleral icterus noted, pupils equal round reactive to light ENT: Nose and ears atraumatic Neck: No cervical lymphadenopathy, trachea midline, supple Mouth: no lip lesion, mucus membranes moist Cardiovascular: S1S2 reg, no murmur, positive dorsalis pedis pulse bilateral, no edema Lungs: CTA bilateral, no rhonchi, no rales, no accessory muscle use Abdominal: Distended, diffuse tenderness most pronounced right upper quadrant tenderness, no guarding, no rebound Ext: muscle strength 5 out of 5 in all 4 extremities grossly, no gross muscle atrophy, no contractures, Neuro: CN II-XI grossly intact, no gross focal neuro deficits Psych: Alert, oriented, appropriate affect Assessment/plan Abdominal pain, suspected acute cholecystitis versus SBP -Continue with IV broad-spectrum antibiotics vancomycin and Zosyn -Patient accepted to [facility] for GI evaluation, pending bed availability -Surgery consulted -Pain control -Follow up blood cultures Alcoholic liver cirrhosis with elevated INR -Strongly advised on importance of cessation -Status post 5 mg IV vitamin K -Thiamine, MV -CIWA protocol Lactic acidosis -Monitor for resolution Thrombocytopenia -Likely due to liver cirrhosis -Monitor for now DVT prophylaxis -IPCDs The patient is admitted with an anticipated greater than 2 midnight stay for evaluation of abdominal pain CODE STATUS: Full Code Discussed with: Patient Anticipated discharge date: in am Anticipated discharge place: [facility] Past Medical History Past Medical History: Hyperlipidemia, Hypertension, Liver Disease, Pneumonia Additional Past Medical History / Comment(s): Alcoholism, past withdrawals with tremors/diaphoresis, elevated LFTs, alcoholic liver cirrhosis, ascities with paracentesis, severe sepsis/aspiration pneumonia, occasional upper back pain. History of Any Multi-Drug Resistant Organisms: None Reported Past Surgical History: No Surgical Hx Reported Additional Past Surgical History / Comment(s): Pt states he has never had surgery Past Anesthesia/Blood Transfusion Reactions: Unable to Obtain Additional Past Anesthesia/Blood Transfusion Reaction / Comment(s): Pt states he has never had surgery. Past Psychological History: Depression, PTSD Smoking Status: Current every day smoker Past Alcohol Use History: Occasional Past Drug Use History: None Reported - Past Family History Mother Family Medical History: Cancer Additional Family Medical History / Comment(s): Mother has colon cancer. Father History Unknown: Yes Additional Family Medical History / Comment(s): All pt knows about his father is that he is . Medications and Allergies Home Medications Medication Instructions Recorded Confirmed Type Magnesium Oxide [Mag-Ox] 400 mg PO DAILY #30 tablet 05/29/21 04/11/22 Rx Thiamine [Vitamin B-1] 100 mg PO DAILY #30 tablet 05/29/21 04/11/22 Rx Folic Acid 1 mg PO DAILY 08/10/21 04/11/22 History Potassium Gluconate [Potassium 99 mg PO DAILY 04/11/22 04/11/22 History Gluconate ER] Allergies Allergy/AdvReac Type Severity Reaction Status Date / Time ibuprofen [From Motrin] Allergy Swelling Verified 04/11/22 21:18 Lips naproxen Allergy Swelling Verified 04/11/22 21:18 Lips Physical Exam Vitals: Vital Signs Temp Pulse Pulse Pulse Resp BP BP 04/12/22 00:19 98.1 F 77 18 125/66 04/11/22 23:38 99.3 F 82 20 127/72 04/11/22 19:07 84 18 106/84 04/11/22 18:36 84 04/11/22 15:41 98.5 F 103 H 18 110/62 Pulse Ox 04/12/22 00:19 95 04/11/22 23:38 97 04/11/22 19:07 04/11/22 18:36 04/11/22 15:41 98 Intake and Output 04/11/22 04/11/22 04/12/22 14:59 22:59 06:59 Other: Weight 99.337 kg Results CBC & Chem 7: 04/12/22 02:16 04/12/22 02:16 Labs: Abnormal Lab Results - Last 24 Hours (Table) 04/11/22 04/11/22 04/11/22 Range/Units 16:50 16:50 16:50 RBC (4.30-5.90) m/uL Hgb (13.0-17.5) gm/dL Hct (39.0-53.0) % Plt Count (150-450) k/uL PT 19.3 H (9.0-12.0) sec INR 2.0 H (<1.2) Chloride 109 H (98-107) mmol/L Carbon Dioxide 16 L (22-30) mmol/L Creatinine 0.56 L (0.66-1.25) mg/dL Glucose 104 H (74-99) mg/dL Plasma Lactic Acid Willam 5.9 H* (0.7-2.0) mmol/L Calcium 7.6 L (8.4-10.2) mg/dL Total Bilirubin 3.6 H (0.2-1.3) mg/dL AST 93 H (17-59) U/L 04/11/22 04/11/22 Range/Units 20:14 22:51 RBC 3.25 L (4.30-5.90) m/uL Hgb 11.3 L (13.0-17.5) gm/dL Hct 31.6 L (39.0-53.0) % Plt Count 101 L (150-450) k/uL PT (9.0-12.0) sec INR (<1.2) Chloride (98-107) mmol/L Carbon Dioxide (22-30) mmol/L Creatinine (0.66-1.25) mg/dL Glucose (74-99) mg/dL Plasma Lactic Acid Willam 3.7 H* (0.7-2.0) mmol/L Calcium (8.4-10.2) mg/dL Total Bilirubin (0.2-1.3) mg/dL AST (17-59) U/L
[2022-04-12] MEDS ORDERED: LORazepam 2 MG/ML INJ IV PRN ×3 (02:25)
[2022-04-12 02:50] LABS: ALT 26 U/L (4-49); AST 63 U/L (17-59); African American GFR (CKD) >90 (>60 ml/min/1.73 sqM); Albumin 3.2 g/dL (3.5-5.0); Alkaline Phosphatase 98 U/L (38-126); Anion Gap 8 mmol/L; Blood Urea Nitrogen 15 mg/dL (9-20); Calcium 7.4 mg/dL (8.4-10.2); Carbon Dioxide 22 mmol/L (22-30); Chloride 111 mmol/L (98-107); Glucose 103 mg/dL (74-99); Non-African American GFR(CKD) >90 (>60 ml/min/1.73 sqM); Potassium 3.2 mmol/L (3.5-5.1); Sodium 141 mmol/L (137-145); Total Bilirubin 4.5 mg/dL (0.2-1.3); Total Protein 6.9 g/dL (6.3-8.2)
[2022-04-12 02:56] LABS: Basophils % (A) 1 %; Eosinophils # (A) 0.1 k/uL (0-0.7); Eosinophils % (A) 2 %; HCT 30.1 % (39.0-53.0); HGB 10.5 gm/dL (13.0-17.5); Lymphocytes # (A) 1.5 k/uL (1.0-4.8); Lymphocytes % (A) 25 %; MCH 34.9 pg (25.0-35.0); MCV 99.5 fL (80.0-100.0); Macrocytosis Slight; Mean Platelet Volume 8.9; Monocytes # (A) 0.3 k/uL (0-1.0); Monocytes % (A) 5 %; Neutrophils # (A) 3.9 k/uL (1.3-7.7); Neutrophils % (A) 66 %; RBC 3.02 m/uL (4.30-5.90); RDW 15.1 % (11.5-15.5)
[2022-04-12] MEDS: HYDROmorphone 0.5 MG/0.5 ML SYRINGE IVP PRN ×2 (03:09→08:58)
[2022-04-12 03:29] LABS: Platelet Count 74 k/uL (150-450)
[2022-04-12] MEDS ORDERED: POTASSIUM CHLORIDE ER 20 MEQ TAB.ER PO STA ×2 (05:39→10:44)
[2022-04-12] MEDS: MAGNESIUM OXIDE 400 MG TAB PO SCH (09:00)
[2022-04-12] MEDS: VANCOMYCIN 1,750 MG in SODIUM CHLORIDE 0.9% 500 ML 500 ML IVPB SCH ×2 (09:00→15:15)
[2022-04-12] MEDS: THIAMINE 100 MG TAB PO SCH (09:00)
[2022-04-12] MEDS: FOLIC ACID 1 MG TAB PO SCH (09:00)
[2022-04-12] MEDS ORDERED: NON FORMULARY DRUG (Potassium Gluconate [Potassium Gluconate Er] 99 MG Tablet) PO SCH (09:00)
[2022-04-12] MEDS: PIPERACILLIN-TAZOBACTAM 3.375 GM in SODIUM CHLORIDE 0.9% 100 ML IVPB SCH ×2 (09:01→15:15)
[2022-04-12] MEDS ORDERED: SODIUM CHLORIDE 0.9% 1,000 ML IV ONE (10:43)
[2022-04-12] MEDS: HYDROmorphone 1 MG/ML 1 ML SYRINGE IVP PRN ×3 (10:58→19:37)
--- NOTE | 2022-04-12 16:52 | P.PN ---
Subjective Progress Note Date: 04/12/22 Hospital course: Patient is a very pleasant 42-year-old male with a past medical history of alcohol abuse disorder and alcoholic liver cirrhosis with last paracentesis being approximately 1 year ago. He presented to the emergency department with a chief complaint of right upper quadrant pain, generalized weakness/fatigue, nausea and vomiting. Patient reported right upper quadrant pain began approximately one week ago and has progressively worsened. Patient reports he was sober for the last couple months and relapsed and has been back to drinking heavily the past 3 or 4 days. Patient underwent full evaluation in the emergency department. KUB was nonspecific bowel gas pattern but negative for acute process. Chest x-ray negative for acute cardiopulmonary process. EKG showing normal sinus rhythm at 84 bpm with an incomplete right bundle branch blo ck not present on previous EKGs. CT abdomen and pelvis revealing distended gallbladder with multiple gallstones correlating for acute cholecystitis along with hepatic cirrhosis with large volume ascites, thickening of the colon castañeda representing hepatic colopathy, ascites increased from previous exam on 12/15/21 with evidence of portal hypertension. Gallbladder ultrasound and completed revealing abdominal ascites, Echogenic bile and evidence of varices at the portal hepatitis suggestive of portal venous hypertension. CBC revealing normocytic anemia with hemoglobin of 11.3 and thrombocytopenia with platelet count of 101. INR elevated at 2.0. CMP revealing chloride 109, carbon dioxide 16, bicarbonate 18, elevated total bili of 3.6 and AST of 93. Lactate was elevated at 5.9. Influenza A, influenza B B, RSV, and Covid PCR negative. Patient was evaluated by general surgery who is recommending evaluation by route delivery driver. Per documentation ED physician initiated transfer to [facility] where patient has been accepted by Dr. Trejo for transfer once bed becomes available at their facility and pending this transfer patient has been admitted patient under our services for continuation of IV antibiotics vancomycin and Zosyn and stabilization of lactate. Status post 3 L 0.9% normal saline and IV fluid hydration patient's lactate finally stable at 1.8. Physical examination: Patient seen and fully evaluated at bedside this morning. Patient reports persistent pain right upper quadrant not controlled with current pain medication regimen. Dilaudid increased to 1 mg every 4 hours. She reports currently nausea and vomiting is controlled. Morning labs reviewed revealing persistent lactic acidosis with lactate of 3.1, orders place for an additional bolus with repeat lactate of 1.8. Potassium 3.2 and replace this morning. Bilirubin elevating to 4.5 and AST decreasing to 63. Discussed case with case management patient is still awaiting bed [facility] as it is reported currently bed is not available. Patient to remain on IV fluid hydration, vancomycin, and Zosyn pending bed assignment and transfer to [facility] for evaluation by route delivery driver. General: Chronically ill-appearing male, appears older than stated age Derm: warm, dry, jaundiced Head: atraumatic, normocephalic, symmetric Eyes: EOMI, no lid lag, scleral icterus present Mouth: no lip lesion, mucus membranes moist Cardiovascular: S1S2 reg, stage III systolic murmur, positive posterior tibial pulse bilaterally Lungs: CTA bilateral, no rhonchi, no rales , no accessory muscle use Abdominal: Distended cirrhotic abdomen, tenderness right upper quadrant upon palpation and epigastric region. No guarding or rebound tenderness. Ext: no gross muscle atrophy, no edema, no contractures Neuro: CN II-XI grossly intact, no focal neuro deficits Psych: Alert, oriented, appropriate affect Assessment and plan of care: Acute right upper quadrant Abdominal pain, suspected acute cholecystitis versus SBP Alcoholic cirrhosis Thrombocytopenia secondary to alcohol abuse and cirrhosis Chronic normocytic anemia secondary to alcohol abuse and cirrhosis Elevated liver enzymes secondary to alcohol abuse and alcoholic cirrhosis -Continue with IV broad-spectrum antibiotics vancomycin and Zosyn -Patient accepted to [facility] for GI evaluation, pending bed availability. Accepted by Dr. Trejo. -Telemetry monitoring -Surgery following -Symptomatic care and Pain control -Follow up blood cultures -Meld score 19 Alcoholic liver cirrhosis with elevated INR, meld score 19 -[facility] Protocol with symptom triggered medication management with benzodiazepines. -Thiamine 100 mg twice a day -Multivitamin daily -Folate 1 mg daily -Seizure, fall, aspiration, and elopement precautions in place. -Continued close monitoring of electrolytes and replace as needed. -Telemetry monitoring. Lactic acidosis, resolved Hypokalemia -Replaced. Continue to monitor with repeat a.m. labs. The patient is admitted with an anticipated greater than 2 midnight stay for evaluation of abdominal pain CODE STATUS: Full Code DVT prophylaxis: SCDs Discussed with: Patient and RN Anticipated discharge date: Clinical course to determine Anticipated discharge place: Transfer to [facility] for evaluation by route delivery driver A total of 38 minutes was spent on the care of this complex patient more than 50% of the time was spent in counseling and care coordination. Objective - Vital Signs Vital signs: Vital Signs Temp 97.9 F 04/12/22 05:12 Pulse 90 04/12/22 05:12 Resp 16 04/12/22 05:12 BP 129/71 04/12/22 05:12 Pulse Ox 96 04/12/22 05:12 FiO2 Intake & Output 04/11/22 04/12/22 04/12/22 18:59 06:59 18:59 Intake Total 346 Balance 346 Weight 99.337 kg Intake: Blood Product 346 Ffp 24 Cpd Unit 346 [id number] Other: Voiding Method Toilet # Voids 2 - Labs CBC & Chem 7: 04/12/22 02:16 04/12/22 02:16 Labs: Abnormal Lab Results - Last 24 Hours (Table) 04/11/22 04/11/22 04/11/22 Range/Units 16:50 16:50 16:50 RBC (4.30-5.90) m/uL Hgb (13.0-17.5) gm/dL Hct (39.0-53.0) % Plt Count (150-450) k/uL PT 19.3 H (9.0-12.0) sec INR 2.0 H (<1.2) Potassium (3.5-5.1) mmol/L Chloride 109 H (98-107) mmol/L Carbon Dioxide 16 L (22-30) mmol/L Creatinine 0.56 L (0.66-1.25) mg/dL Glucose 104 H (74-99) mg/dL Plasma Lactic Acid Willam 5.9 H* (0.7-2.0) mmol/L Calcium 7.6 L (8.4-10.2) mg/dL Total Bilirubin 3.6 H (0.2-1.3) mg/dL AST 93 H (17-59) U/L Albumin (3.5-5.0) g/dL 04/11/22 04/11/22 04/12/22 Range/Units 20:14 22:51 02:16 RBC 3.25 L 3.02 L (4.30-5.90) m/uL Hgb 11.3 L 10.5 L (13.0-17.5) gm/dL Hct 31.6 L 30.1 L (39.0-53.0) % Plt Count 101 L 74 L (150-450) k/uL PT (9.0-12.0) sec INR (<1.2) Potassium (3.5-5.1) mmol/L Chloride (98-107) mmol/L Carbon Dioxide (22-30) mmol/L Creatinine (0.66-1.25) mg/dL Glucose (74-99) mg/dL Plasma Lactic Acid Willam 3.7 H* (0.7-2.0) mmol/L Calcium (8.4-10.2) mg/dL Total Bilirubin (0.2-1.3) mg/dL AST (17-59) U/L Albumin (3.5-5.0) g/dL 04/12/22 04/12/22 04/12/22 Range/Units 02:16 02:16 05:11 RBC (4.30-5.90) m/uL Hgb (13.0-17.5) gm/dL Hct (39.0-53.0) % Plt Count (150-450) k/uL PT (9.0-12.0) sec INR (<1.2) Potassium 3.2 L (3.5-5.1) mmol/L Chloride 111 H (98-107) mmol/L Carbon Dioxide (22-30) mmol/L Creatinine 0.55 L (0.66-1.25) mg/dL Glucose 103 H (74-99) mg/dL Plasma Lactic Acid Willam 2.9 H* 3.2 H* (0.7-2.0) mmol/L Calcium 7.4 L (8.4-10.2) mg/dL Total Bilirubin 4.5 H (0.2-1.3) mg/dL AST 63 H (17-59) U/L Albumin 3.2 L (3.5-5.0) g/dL Assessment and Plan Assessment: Pako Mendoza NP rendered care for this patient independently, reviewed the findings and plan as documented in the note above. I did not physically speak with our examined the patient on this date.
[2022-04-13] MEDS: VANCOMYCIN 1,750 MG in SODIUM CHLORIDE 0.9% 500 ML 500 ML IVPB SCH ×2 (00:04→09:31)
[2022-04-13] MEDS: PIPERACILLIN-TAZOBACTAM 3.375 GM in SODIUM CHLORIDE 0.9% 100 ML IVPB SCH ×2 (00:04→07:00)
[2022-04-13] MEDS: HYDROmorphone 1 MG/ML 1 ML SYRINGE IVP PRN ×4 (00:12→13:45)
[2022-04-13] MEDS: ONDANSETRON 4 MG/2 ML VIAL IVP PRN (03:57)
[2022-04-13] MEDS ORDERED: VANCOMYCIN TROUGH DUE 1 EACH MISC MISCELLANE ONE (07:00)
[2022-04-13] MEDS: FOLIC ACID 1 MG TAB PO SCH (09:34)
[2022-04-13] MEDS: MAGNESIUM OXIDE 400 MG TAB PO SCH (09:34)
[2022-04-13] MEDS: THIAMINE 100 MG TAB PO SCH (09:34)
[2022-04-13 09:54] LABS: African American GFR (CKD) 140.7 (60.0-200.0); Albumin 3.5 g/dL (3.8-4.9); Albumin/Globulin Ratio 1.01 (1.60-3.17); Anion Gap 12.1 mmol/L (10.00-18.00); BUN/Creat Ratio 15.1 Ratio (12.00-20.00); Blood Urea Nitrogen 9.7 mg/dL (9.0-27.0); Calcium 8.5 mg/dL (8.7-10.3); Carbon Dioxide 21.3 mmol/L (20.0-27.5); Globulin 3.5 g/dL (1.6-3.3); Non-African American GFR(CKD) 121.4 (60.0-200.0); Potassium 3.5 mmol/L (3.5-5.5); Total Protein 6.9 g/dL (6.2-8.2)
[2022-04-13 10:38] LABS: Immature Platelet Fraction 6.1 % (1.1-6.1); MCH 34.2 pg (27.0-32.0); MCHC 34.5 g/dL (32.0-37.0); MCV 99.3 fL (80.0-97.0); Mean Platelet Volume 11.3 fL (9.5-12.2); NRBC Per 100 WBC 0 /100 WBCS (0.0-0.0); Platelet Count 60 X 10*3/uL (140-440); RBC 2.92 X 10*6/uL (4.40-5.60); RDW 15.8 % (11.5-14.5); WBC 4.85 X 10*3/uL (4.50-10.00)
[2022-04-13] MEDS ORDERED: PROCHLORPERAZINE INJ 10 MG/2 ML VIAL IVP PRN (10:41)
--- NOTE | 2022-04-13 11:22 | P.PN ---
Subjective Progress Note Date: 04/13/22 Hospital course: Patient is a very pleasant 42-year-old male with a past medical history of alcohol abuse disorder and alcoholic liver cirrhosis with last paracentesis being approximately 1 year ago. He presented to the emergency department with a chief complaint of right upper quadrant pain, generalized weakness/fatigue, nausea and vomiting. Patient reported right upper quadrant pain began approximately one week ago and has progressively worsened. Patient reports he was sober for the last couple months and relapsed and has been back to drinking heavily the past 3 or 4 days. Patient underwent full evaluation in the emergency department. KUB was nonspecific bowel gas pattern but negative for acute process. Chest x-ray negative for acute cardiopulmonary process. EKG showing normal sinus rhythm at 84 bpm with an incomplete right bundle branch blo ck not present on previous EKGs. CT abdomen and pelvis revealing distended gallbladder with multiple gallstones correlating for acute cholecystitis along with hepatic cirrhosis with large volume ascites, thickening of the colon castañeda representing hepatic colopathy, ascites increased from previous exam on 12/15/21 with evidence of portal hypertension. Gallbladder ultrasound and completed revealing abdominal ascites, Echogenic bile and evidence of varices at the portal hepatitis suggestive of portal venous hypertension. CBC revealing normocytic anemia with hemoglobin of 11.3 and thrombocytopenia with platelet count of 101. INR elevated at 2.0. CMP revealing chloride 109, carbon dioxide 16, bicarbonate 18, elevated total bili of 3.6 and AST of 93. Lactate was elevated at 5.9. Influenza A, influenza B B, RSV, and Covid PCR negative. Patient was evaluated by general surgery who is recommending evaluation by cut order hand. Per documentation ED physician initiated transfer to [facility] where patient has been accepted by Dr. Trejo for transfer once bed becomes available at their facility and pending this transfer patient has been admitted patient under our services for continuation of IV antibiotics vancomycin and Zosyn and stabilization of lactate. Status post 3 L 0.9% normal saline and IV fluid hydration patient's lactate finally stable at 1.8. Physical examination: Patient seen and fully evaluated at bedside this morning. He reports right upper quadrant abdominal pain is controlled with current pain medication regimen but states his nausea has been pretty bad and remains uncontrolled at this time. Orders place for Compazine in addition to Zofran. Total bili continues to increase and this morning is 5.00 with elevated AST stable at 53. BMP unremarkable and stable hemoglobin of 10.0 and persistent thrombocytopenia with platelet count of 60. Patient continues to await a bed to become available [facility] for transfer to be evaluated by cut order hand. Patient to remain on vancomycin, and Zosyn pending bed assignment and transfer to [facility] for evaluation by cut order hand. General: Chronically ill-appearing male, appears older than stated age Derm: warm, dry, jaundiced Head: atraumatic, normocephalic, symmetric Eyes: EOMI, no lid lag, scleral icterus present Mouth: no lip lesion, mucus membranes moist Cardiovascular: S1S2 reg, stage III systolic murmur, positive posterior tibial pulse bilaterally Lungs: CTA bilateral, no rhonchi, no rales , no accessory muscle use Abdominal: Distended cirrhotic abdomen, tenderness right upper quadrant upon palpation and epigastric region. No guarding or rebound tenderness. Ext: no gross muscle atrophy, no edema, no contractures Neuro: CN II-XI grossly intact, no focal neuro deficits Psych: Alert, oriented, appropriate affect Assessment and plan of care: Acute right upper quadrant Abdominal pain, suspected acute cholecystitis vs SBP Alcoholic cirrhosis Thrombocytopenia secondary to alcohol abuse and cirrhosis Chronic normocytic anemia secondary to alcohol abuse and cirrhosis Elevated liver enzymes secondary to alcohol abuse and alcoholic cirrhosis -Continue with IV broad-spectrum antibiotics vancomycin and Zosyn -Patient accepted to [facility] for GI evaluation, pending bed availability. Accepted by Dr. Trejo. -Telemetry monitoring -Surgery following -Symptomatic care and Pain control -Follow up blood cultures -Meld score 19 Alcoholic abuse in patient with alcoholic liver cirrhosis with elevated INR, meld score 19 -[facility] Protocol with symptom triggered medication management with benzodiazepines. -Thiamine 100 mg twice a day -Multivitamin daily -Folate 1 mg daily -Seizure, fall, aspiration, and elopement precautions in place. -Continued close monitoring of electrolytes and replace as needed. -Telemetry monitoring. Lactic acidosis, resolved Hypokalemia, resolved The patient is admitted with an anticipated greater than 2 midnight stay for evaluation of abdominal pain CODE STATUS: Full Code DVT prophylaxis: SCDs Discussed with: Patient and RN Anticipated discharge date: Clinical course to determine Anticipated discharge place: Transfer to [facility] for evaluation by cut order hand A total of 38 minutes was spent on the care of this complex patient more than 50% of the time was spent in counseling and care coordination. Pako Mendoza NP rendered care for this patient independently, reviewed the findings and plan as documented in the note above. I did not physically speak with or examine the patient on this date. Objective - Vital Signs Vital signs: Vital Signs Temp 98.9 F 04/13/22 08:00 Pulse 73 04/13/22 08:00 Resp 17 04/13/22 08:00 BP 127/72 04/13/22 08:00 Pulse Ox 92 L 04/13/22 08:00 FiO2 Intake & Output 04/12/22 04/13/22 04/13/22 18:59 06:59 18:59 Intake Total 1825 600 Balance 1825 600 Intake: Intake, IV Titration 1825 600 Amount Piperacillin-Tazobactam 3 25 .375 gm In Sodium Chloride 0.9% 100 ml @ 25 mls/hr IVPB ONCE ONE Rx# :[id number] Piperacillin-Tazobactam 3 100 .375 gm In Sodium Chloride 0.9% 100 ml @ 25 mls/hr IVPB Q8H [facility] Rx#: [id number] Sodium Chloride 0.9% 1, 1300 000 ml @ 130 mls/hr IV . [id number] STA Rx#:[id number] Vancomycin 1,750 mg In 500 500 Sodium Chloride 0.9% 500 ml 500 ml @ 167 mls/hr IVPB Q8H [facility] Rx#: [id number] Other: Voiding Method Toilet # Voids 1 - Labs CBC & Chem 7: 04/13/22 07:01 04/13/22 07:01 Labs: Abnormal Lab Results - Last 24 Hours (Table) 04/12/22 Range/Units 09:00 Plasma Lactic Acid Willam 3.1 H* (0.7-2.0) mmol/L Microbiology - Last 24 Hours (Table) 04/11/22 17:06 Blood Culture - Preliminary Blood No Growth after 24 hours 04/11/22 16:51 Blood Culture - Preliminary Blood No Growth after 24 hours
[2022-04-13 13:05] VITALS: BP 129/77; PULSE 77; RESP 18; TEMP 99.1
--- NOTE | 2022-04-14 08:17 | P.DS ---
Providers Date of admission: 04/11/22 21:42 Expected date of discharge: 04/13/22 Attending physician: Cholo Aldridge MD Consults: 04/11/22 21:42 Consult Physician Routine Consulting Provider: Ray Teixeira Consult Reason/Comments: concern for cholecystitis Do you want consulting provider notified?: Already Contacted Primary care physician: [facility] Hospital Course: Discharge Diagnosis at time of transfer: Acute right upper quadrant Abdominal pain, suspected acute cholecystitis vs SBP Alcoholic cirrhosis Thrombocytopenia secondary to alcohol abuse and cirrhosis Chronic normocytic anemia secondary to alcohol abuse and cirrhosis Elevated liver enzymes secondary to alcohol abuse and alcoholic cirrhosis Alcoholic abuse in patient with alcoholic liver cirrhosis with elevated INR, meld score 19 Lactic acidosis, resolved Hypokalemia, resolved Hospital Course: Patient is a very pleasant 42-year-old male with a past medical history of alcohol abuse disorder and alcoholic liver cirrhosis with last paracentesis being approximately 1 year ago. He presented to the emergency department with a chief complaint of right upper quadrant pain, generalized weakness/fatigue, nausea and vomiting. Patient reported right upper quadrant pain began approximately one week ago and has progressively worsened. Patient reports he was sober for the last couple months and relapsed and has been back to drinking heavily the past 3 or 4 days. Patient underwent full evaluation in the e mergency department. KUB was nonspecific bowel gas pattern but negative for acute process. Chest x-ray negative for acute cardiopulmonary process. EKG showing normal sinus rhythm at 84 bpm with an incomplete right bundle branch block not present on previous EKGs. CT abdomen and pelvis revealing distended gallbladder with multiple gallstones correlating for acute cholecystitis along with hepatic cirrhosis with large volume ascites, thickening of the colon castañeda representing hepatic colopathy, ascites increased from previous exam on 12/15/21 with evidence of portal hypertension. Gallbladder ultrasound and completed revealing abdominal ascites, Echogenic bile and evidence of varices at the portal hepatitis suggestive of portal venous hypertension. CBC revealing normocytic anemia with hemoglobin of 11.3 and thrombocytopenia with platelet count of 101. INR elevated at 2.0. CMP revealing chloride 109, carbon dioxide 16, bicarbonate 18, elevated total bili of 3.6 and AST of 93. Lactate was elevated at 5.9. Influenza A, influenza B B, RSV, and Covid PCR negative. Patient was evaluated by general surgery who is recommending evaluation by crate maker. Per documentation ED physician initiated transfer to [facility] where patient has been accepted by Dr. Trejo for transfer once bed becomes available at their facility and pending this transfer patient was admitted under our services for continuation of IV antibiotics vancomycin and Zosyn and stabilization of lactate. Status post 3 L 0.9% normal saline and IV fluid hydration patient's lactate finally stable at 1.8. Patient underwent a three-day two-night hospitalization and a bed became available at [facility]. Patient was stable for transfer to [facility] where he would be able to be evaluated by crate maker secondary to concerns of acute cholecystitis in patient with cirrhosis with ascites. Patient medically stable for transfer. Vital signs upon transfer 129/77, heart rate 77, respiratory rate 18, SpO2 95% on room air and temperature 99.1F. Physical examination: General: Chronically ill-appearing male, appears older than stated age Derm: warm, dry, jaundiced Head: atraumatic, normocephalic, symmetric Eyes: EOMI, no lid lag, scleral icterus present Mouth: no lip lesion, mucus membranes moist Cardiovascular: S1S2 reg, stage III systolic murmur, positive posterior tibial pulse bilaterally Lungs: CTA bilateral, no rhonchi, no rales , no accessory muscle use Abdominal: Distended cirrhotic abdomen, tenderness right upper quadrant upon palpation and epigastric region. No guarding or rebound tenderness. Ext: no gross muscle atrophy, no edema, no contractures Neuro: CN II-XI grossly intact, no focal neuro deficits Psych: Alert, oriented, appropriate affect Pt was transferred to [facility] on 04/13/22 at 3:02 PM. Pako Mendoza NP rendered care for this patient independently, reviewed the findings and plan as documented in the note above. I did not physically speak with or examine the patient on this date. Patient Condition at Discharge: Stable Plan - Discharge Summary New Discharge Prescriptions: No Action Thiamine [Vitamin B-1] 100 mg PO DAILY #30 tablet Folic Acid 1 mg PO DAILY Potassium Gluconate [Potassium Gluconate ER] 99 mg PO DAILY Magnesium Oxide [Mag-Ox] 400 mg PO DAILY #30 tablet Discharge Medication List Magnesium Oxide [Mag-Ox] 400 mg PO DAILY #30 tablet 05/29/21 [Rx] Thiamine [Vitamin B-1] 100 mg PO DAILY #30 tablet 05/29/21 [Rx] Folic Acid 1 mg PO DAILY 08/10/21 [History] Potassium Gluconate [Potassium Gluconate ER] 99 mg PO DAILY 04/11/22 [History] Follow up Appointment(s)/Referral(s): [facility],Clinic [Primary Care Provider] - 1-2 days Discharge Disposition: TRANSFER TO [facility]
== END 2022-04-13 16:54 | disposition short-term general hospital (02) | DRG 444 ==
LOC: EC 15:37 → 5NMEDONC 21:42
PROVIDERS: ADMIT Internal Medicine; ATTEND Internal Medicine
PROC: HZ2ZZZZ Detoxification Services for Substance Abuse Treatment (ICD-10-PCS; principal; 2022-04-11)
DX: K80.00 Calculus of gallbladder with acute cholecystitis without obstruction (principal); G93.41 Metabolic encephalopathy; E87.20 Acidosis, unspecified; K76.6 Portal hypertension; F10.231 Alcohol dependence with withdrawal delirium; K70.31 Alcoholic cirrhosis of liver with ascites; Z20.822 Contact with and (suspected) exposure to COVID-19; K70.11 Alcoholic hepatitis with ascites; I45.10 Unspecified right bundle-branch block; I10 Essential (primary) hypertension; R53.1 Weakness; K70.40 Alcoholic hepatic failure without coma; K76.0 Fatty (change of) liver, not elsewhere classified; K82.8 Other specified diseases of gallbladder; D64.9 Anemia, unspecified; D69.59 Other secondary thrombocytopenia; E78.5 Hyperlipidemia, unspecified; E87.6 Hypokalemia; F17.210 Nicotine dependence, cigarettes, uncomplicated; F32.A Depression, unspecified; F43.10 Post-traumatic stress disorder, unspecified; R79.1 Abnormal coagulation profile; Z88.6 Allergy status to analgesic agent; Z88.5 Allergy status to narcotic agent; Z71.41 Alcohol abuse counseling and surveillance of alcoholic
CPT/HCPCS: 36415; 71045; 74018; 74178; 76705; 80053; 80202; 82150; 83605; 83690; 85025; 85027; 85610; 85730; 86850; 86900; 86901; 87040; 87636; 93005; 96365; 96366; 96368; 96375; 96376; 99291

== ENCOUNTER 2022-05-01 13:18 | Inpatient (IN) | payer OTHER ==
--- NOTE | 2022-05-01 14:15 | ED ---
General Adult HPI - General Chief complaint: Shortness of Breath Stated complaint: Abd pain Time Seen by Provider: 05/01/22 13:56 Source: patient, RN notes reviewed Mode of arrival: EMS Limitations: no limitations - History of Present Illness Initial comments: 42 year old male with a past medical history of HTN and cirrhosis presents to the emergency department via EMS for abdominal pain and chest pain. He notes his symptoms started yesterday after drinking a fifth of whisky. He admits to accompanying symptoms of nausea and a metalic taste in his mouth. He describes his chest pain as tight and at rest. He has been trying breathing exercises to help this as he believes he is having an anxiety attack. He denies fever, chills, vomiting, hematemsis, dysuria, hematochezia, melena. He denies any abdominal surgeries. He reports he had an appointment [facility] however had to cancel and reschedule it. - Related Data Home Medications Medication Instructions Recorded Confirmed Folic Acid 1 mg PO DAILY 08/10/21 05/01/22 Potassium Gluconate [Potassium 99 mg PO DAILY 04/11/22 05/01/22 Gluconate ER] Previous Rx's Medication Instructions Recorded Magnesium Oxide [Mag-Ox] 400 mg PO DAILY #30 tablet 05/29/21 Thiamine [Vitamin B-1] 100 mg PO DAILY #30 tablet 05/29/21 Allergies Allergy/AdvReac Type Severity Reaction Status Date / Time ibuprofen [From Motrin] Allergy Swelling Verified 05/01/22 16:51 Lips naproxen Allergy Swelling Verified 05/01/22 16:51 Lips Review of Systems ROS Statement: Those systems with pertinent positive or pertinent negative responses have been documented in the HPI. ROS Other: All systems not noted in ROS Statement are negative. Past Medical History Past Medical History: Hyperlipidemia, Hypertension, Liver Disease, Pneumonia Additional Past Medical History / Comment(s): Alcoholism, past withdrawals with tremors/diaphoresis, elevated LFTs, alcoholic liver cirrhosis, ascities with paracentesis, severe sepsis/aspiration pneumonia, occasional upper back pain. History of Any Multi-Drug Resistant Organisms: None Reported Past Surgical History: No Surgical Hx Reported Additional Past Surgical History / Comment(s): Pt states he has never had surgery Past Anesthesia/Blood Transfusion Reactions: Unable to Obtain Additional Past Anesthesia/Blood Transfusion Reaction / Comment(s): Pt states he has never had surgery. Past Psychological History: Depression, PTSD Smoking Status: Current every day smoker Past Alcohol Use History: Occasional Past Drug Use History: None Reported - Past Family History Mother Family Medical History: Cancer Additional Family Medical History / Comment(s): Mother has colon cancer. Father History Unknown: Yes Additional Family Medical History / Comment(s): All pt knows about his father is that he is . General Exam Limitations: no limitations General appearance: alert, in no apparent distress Head exam: Present: atraumatic, normocephalic, normal inspection Eye exam: Present: normal appearance, PERRL, EOMI. Absent: scleral icterus, conjunctival injection, periorbital swelling ENT exam: Present: normal exam, mucous membranes moist Neck exam: Present: normal inspection. Absent: tenderness, meningismus, lymphadenopathy Respiratory exam: Present: normal lung sounds bilaterally. Absent: respiratory distress, wheezes, rales, rhonchi, stridor Cardiovascular Exam: Present: regular rate, normal rhythm, normal heart sounds. Absent: systolic murmur, diastolic murmur, rubs, gallop, clicks GI/Abdominal exam: Present: soft, distended, normal bowel sounds, hernia (umbilical ). Absent: guarding, rebound, rigid Expanded GI/Abdominal exam: Present: ascites Extremities exam: Present: normal inspection, full ROM, normal capillary refill. Absent: tenderness, pedal edema, joint swelling, calf tenderness Back exam: Present: normal inspection Neurological exam: Present: alert, oriented X3, CN II-XII intact Psychiatric exam: Present: normal affect, normal mood Skin exam: Present: warm, dry, intact, normal color. Absent: rash Course Vital Signs 05/01/22 05/01/22 05/01/22 13:39 15:54 18:49 Temperature 98.6 F Pulse Rate 90 85 70 Respiratory 16 19 20 Rate Blood Pressure 122/70 112/73 124/65 O2 Sat by Pulse 100 99 100 Oximetry - Reevaluation(s) Reevaluation #1: 05/01/22 18:[address] Shine with [facility] who agrees and accepts the patient for admission with a consult for GI. EKG Findings - EKG Comments: EKG Findings:: I interpreted the following: EKG performed 13:55. rate 87 bpm, [place] 107, QRS 112, Qt/Qtc 414/459 Medical Decision Making - Medical Decision Making Was pt. sent in by a medical professional or institution (, TASHA, FRONT END UI DEVELOPER, urgent care, hospital, or senior living...) When possible be specific @ -[No] Did you speak to anyone other than the patient for history (EMS, parent, family, police, friend...)? What history was obtained from this source @ -[No] Did you review nursing and triage notes (agree or disagree)? Why? @ -[I reviewed and agree with nursing and triage notes] Were old charts reviewed (outside hosp., previous admission, EMS record, old EKG, old radiological studies, urgent care reports/EKG's, senior living records)? Report findings @ -[No old charts were reviewed] Differential Diagnosis (chest pain, altered mental status, abdominal pain women, abdominal pain men, vaginal bleeding, weakness, fever, dyspnea, syncope, headache, dizziness, GI bleed, back pain, seizure, CVA, palpatations, mental health)? @ -[not applicable] EKG interpreted by me (3pts min.). @ -[As above] X-rays interpreted by me (1pt min.). @ -[None done] CT interpreted by me (1pt min.). @ reveals cholelithiasis and ascites U/S interpreted by me (1pt. min.). @ -[None done] What testing was considered but not performed or refused? (CT, X-rays, U/S, labs)? Why? @ -[None] What meds were considered but not given or refused? Why? @ -[None] Did you discuss the management of the patient with other professionals (professionals i.e. TASHA Camejo, FRONT END UI DEVELOPER, lab, RT, psych nurse, social services technician, dividend deposit entry clerk, teacher, staff antisubmarine officer, registered nurse hh case manager)? Give summary @ - I discussed the case with Dr. Cotton, [facility] who agrees and accepts the patient for admission. Was smoking cessation discussed for >3mins.? @ -[No] Was critical care preformed (if so, how long)? @ -[No] Were there social determinants of health that impacted care today? How? (Homelessness, low income, unemployed, alcoholism, drug addiction, transportation, low edu. Level, literacy, decrease access to med. care, longterm, rehab)? @ -alcoholism Was there de-escalation of care discussed even if they declined (Discuss DNR or withdrawal of care, Hospice)? DNR status @ -[No] What co-morbidities impacted this encounter? (DM, HTN, Smoking, COPD, CAD, Cancer, CVA, ARF, Chemo, Hep., AIDS, mental health diagnosis, sleep apnea, m orbid obesity)? @ -[None] Was patient admitted / discharged? Hospital course, mention meds given and route, prescriptions, significant lab abnormalities, going to OR and other pertinent info. @ --Patient presents to the emergency department for shortness of breath and abdominal pain. Patient had lab work and performed in the emergency department which were remarkable for wbc 8.6, hgb 8.3, PT 15.1, INR 1.5, Lactic acid 4.5, serum alcohol 255 COVID, flu, rsv negative. Due to the nature of the patients illness it is my decision to admit for further management of patients chronic illnesses. I discussed the results in detail with the patent, who verbalized understanding. Patient was given IV fluids, and morphine with symptomatic relief in the ER. Patient was admitted to Dr. Cotton with [facility] with a consult to GI for further management. I discussed the Case with Dr. Ruby, [facility] who agrees with plan for admission. Undiagnosed new problem with uncertain prognosis? @ -Ascites Cirrhosis of the liver Lactic acidosis alcohol intoxication Drug Therapy requiring intensive monitoring for toxicity (Heparin, Nitro, Insulin, Cardizem)? @ -[No] Were any procedures done? @ -[No] Diagnosis/symptom? @ Ascites Cirrhosis of the liver Lactic acidosis alcohol intoxication Acute, or Chronic, or Acute on Chronic? @ -acute Uncomplicated (without systemic symptoms) or Complicated (systemic symptoms)? @ -[default] Side effects of treatment? @ -[No] Exacerbation, Progression, or Severe Exacerbation? @ -[No] Poses a threat to life or bodily function? How? (Chest pain, USA, RI, pneumonia, PE, COPD, DKA, ARF, appy, cholecystitis, CVA, Diverticulitis, Homicidal, Suicidal, threat to staff... and all critical care pts) @ -[No] - Lab Data Result diagrams: 05/01/22 14:30 05/01/22 15:22 Lab Results 05/01/22 05/01/2205/01/23 Range/Units 14:30 14:30 14:30 WBC 8.6 (3.8-10.6) k/uL RBC 2.49 L (4.30-5.90) m/uL Hgb 8.3 L D (13.0-17.5) gm/dL Hct 25.4 L (39.0-53.0) % MCV 102.0 H (80.0-100.0) fL MCH 33.4 (25.0-35.0) pg MCHC 32.8 (31.0-37.0) g/dL RDW 15.7 H (11.5-15.5) % Plt Count 190 D (150-450) k/uL MPV 8.4 Neutrophils % 59 % Lymphocytes % 30 % Monocytes % 6 % Eosinophils % 3 % Basophils % 1 % Neutrophils # 5.1 (1.3-7.7) k/uL Lymphocytes # 2.5 (1.0-4.8) k/uL Monocytes # 0.5 (0-1.0) k/uL Eosinophils # 0.2 (0-0.7) k/uL Basophils # 0.1 (0-0.2) k/uL Hypochromasia Moderate Poikilocytosis Slight Macrocytosis Slight PT (9.0-12.0) sec INR (<1.2) Sodium (137-145) mmol/L Potassium (3.5-5.1) mmol/L Chloride (98-107) mmol/L Carbon Dioxide (22-30) mmol/L Anion Gap mmol/L BUN (9-20) mg/dL Creatinine (0.66-1.25) mg/dL Est GFR (CKD-EPI)AfAm (>60 ml/min/1.73 sqM) Est GFR (CKD-EPI)NonAf (>60 ml/min/1.73 sqM) Glucose (74-99) mg/dL Lactic Ac Sepsis Rflx Plasma Lactic Acid Willam (0.7-2.0) mmol/L Calcium (8.4-10.2) mg/dL Magnesium (1.6-2.3) mg/dL Total Bilirubin (0.2-1.3) mg/dL AST (17-59) U/L ALT (4-49) U/L Alkaline Phosphatase (38-126) U/L Troponin I <0.012 (0.000-0.034) ng/mL Total Protein (6.3-8.2) g/dL Albumin (3.5-5.0) g/dL Amylase (30-110) U/L Lipase (23-300) U/L Serum Alcohol mg/dL Influenza Type A (PCR) Not Detected (Not Detectd) Influenza Type B (PCR) Not Detected (Not Detectd) RSV (PCR) Not Detected (Not Detectd) SARS-CoV-2 (PCR) Not Detected (Not Detectd) 05/01/22 05/01/22 05/01/22 Range/Units 14:30 14:30 15:22 WBC (3.8-10.6) k/uL RBC (4.30-5.90) m/uL Hgb (13.0-17.5) gm/dL Hct (39.0-53.0) % MCV (80.0-100.0) fL MCH (25.0-35.0) pg MCHC (31.0-37.0) g/dL RDW (11.5-15.5) % Plt Count (150-450) k/uL MPV Neutrophils % % Lymphocytes % % Monocytes % % Eosinophils % % Basophils % % Neutrophils # (1.3-7.7) k/uL Lymphocytes # (1.0-4.8) k/uL Monocytes # (0-1.0) k/uL Eosinophils # (0-0.7) k/uL Basophils # (0-0.2) k/uL Hypochromasia Poikilocytosis Macrocytosis PT 15.1 H (9.0-12.0) sec INR 1.5 H (<1.2) Sodium 139 (137-145) mmol/L Potassium 3.9 (3.5-5.1) mmol/L Chloride 111 H (98-107) mmol/L Carbon Dioxide 17 L (22-30) mmol/L Anion Gap 11 mmol/L BUN 14 (9-20) mg/dL Creatinine 0.56 L (0.66-1.25) mg/dL Est GFR (CKD-EPI)AfAm >90 (>60 ml/min/1.73 sqM) Est GFR (CKD-EPI)NonAf >90 (>60 ml/min/1.73 sqM) Glucose 114 H (74-99) mg/dL Lactic Ac Sepsis Rflx Plasma Lactic Acid Willam 4.5 H* (0.7-2.0) mmol/L Calcium 7.7 L (8.4-10.2) mg/dL Magnesium 2.0 (1.6-2.3) mg/dL Total Bilirubin 1.9 H (0.2-1.3) mg/dL AST 82 H (17-59) U/L ALT 36 (4-49) U/L Alkaline Phosphatase 113 (38-126) U/L Troponin I (0.000-0.034) ng/mL Total Protein 7.1 (6.3-8.2) g/dL Albumin 3.4 L (3.5-5.0) g/dL Amylase 43 (30-110) U/L Lipase 153 (23-300) U/L Serum Alcohol 255 H* mg/dL Influenza Type A (PCR) (Not Detectd) Influenza Type B (PCR) (Not Detectd) RSV (PCR) (Not Detectd) SARS-CoV-2 (PCR) (Not Detectd) 05/01/22 Range/Units 15:22 WBC (3.8-10.6) k/uL RBC (4.30-5.90) m/uL Hgb (13.0-17.5) gm/dL Hct (39.0-53.0) % MCV (80.0-100.0) fL MCH (25.0-35.0) pg MCHC (31.0-37.0) g/dL RDW (11.5-15.5) % Plt Count (150-450) k/uL MPV Neutrophils % % Lymphocytes % % Monocytes % % Eosinophils % % Basophils % % Neutrophils # (1.3-7.7) k/uL Lymphocytes # (1.0-4.8) k/uL Monocytes # (0-1.0) k/uL Eosinophils # (0-0.7) k/uL Basophils # (0-0.2) k/uL Hypochromasia Poikilocytosis Macrocytosis PT (9.0-12.0) sec INR (<1.2) Sodium (137-145) mmol/L Potassium (3.5-5.1) mmol/L Chloride (98-107) mmol/L Carbon Dioxide (22-30) mmol/L Anion Gap mmol/L BUN (9-20) mg/dL Creatinine (0.66-1.25) mg/dL Est GFR (CKD-EPI)AfAm (>60 ml/min/1.73 sqM) Est GFR (CKD-EPI)NonAf (>60 ml/min/1.73 sqM) Glucose (74-99) mg/dL Lactic Ac Sepsis Rflx Y Plasma Lactic Acid Willam (0.7-2.0) mmol/L Calcium (8.4-10.2) mg/dL Magnesium (1.6-2.3) mg/dL Total Bilirubin (0.2-1.3) mg/dL AST (17-59) U/L ALT (4-49) U/L Alkaline Phosphatase (38-126) U/L Troponin I (0.000-0.034) ng/mL Total Protein (6.3-8.2) g/dL Albumin (3.5-5.0) g/dL Amylase (30-110) U/L Lipase (23-300) U/L Serum Alcohol mg/dL Influenza Type A (PCR) (Not Detectd) Influenza Type B (PCR) (Not Detectd) RSV (PCR) (Not Detectd) SARS-CoV-2 (PCR) (Not Detectd) Disposition Clinical Impression: Alcoholic cirrhosis of liver with ascites, Alcohol abuse, Ascites, Lactic acidosis Disposition: ADMITTED IP TO THIS HOSP Is patient prescribed a controlled substance at d/c from ED?: No Referrals: [facility],Clinic [Primary Care Provider] - 1-2 days Time of Disposition: 18:09
[2022-05-01 14:54] LABS: Basophils # (A) 0.1 k/uL (0-0.2); Basophils % (A) 1 %; Eosinophils # (A) 0.2 k/uL (0-0.7); Eosinophils % (A) 3 %; HCT 25.4 % (39.0-53.0); Hypochromasia Moderate; Lymphocytes # (A) 2.5 k/uL (1.0-4.8); Lymphocytes % (A) 30 %; MCH 33.4 pg (25.0-35.0); MCHC 32.8 g/dL (31.0-37.0); Macrocytosis Slight; Mean Platelet Volume 8.4; Monocytes # (A) 0.5 k/uL (0-1.0); Monocytes % (A) 6 %; Neutrophils # (A) 5.1 k/uL (1.3-7.7); Neutrophils % (A) 59 %; Poikilocytosis Slight; RBC 2.49 m/uL (4.30-5.90); RDW 15.7 % (11.5-15.5); WBC 8.6 k/uL (3.8-10.6)
[2022-05-01 14:55] LABS: HGB 8.3 gm/dL (13.0-17.5)
[2022-05-01 14:56] LABS: Platelet Count 190 k/uL (150-450)
[2022-05-01 14:59] LABS: INR 1.5 (<1.2); Prothrombin Time 15.1 sec (9.0-12.0)
--- NOTE | 2022-05-01 15:02 | CT ---
EXAMINATION TYPE: CT abdomen pelvis wo con CT DLP: 968.5 mGycm, Automated exposure control for dose reduction was used. DATE OF EXAM: 05/01/2022 2:51 PM COMPARISON: CT abdomen pelvis most recent from 04/11/2022 . CLINICAL INDICATION:Male, 42 years old with history of abdominal pain; abdominal pain, distention TECHNIQUE: Standard CT of the abdomen and pelvis without IV or oral contrast. Lack of IV or oral co ntrast limits evaluation of solid and hollow organ viscera. Coronal and sagittal reformats were perfo rmed. FINDINGS: LOWER CHEST: Left lower lobe consolidation with air bronchograms likely representing atelectasis. ABDOMEN LIVER: Findings consistent with cirrhosis with nodular contour, posterior notch sign, widened fissure s. No focal lesion within the limitations of a noncontrast exam. GALLBLADDER AND BILE DUCTS: Layering increased densities within the lumen consistent with gallstones are present. No biliary ductal dilatation. PANCREAS: Unremarkable noncontrast appearance. SPLEEN: Mildly enlarged in size measuring up to 14 cm. ADRENAL GLANDS: Unremarkable noncontrast appearance. KIDNEYS AND URETERS: No evidence of hydronephrosis or renal calculus. PELVIS BLADDER: Incompletely distended but grossly unremarkable. REPRODUCTIVE: Unremarkable. ABDOMEN & PELVIS STOMACH AND BOWEL: Stomach and duodenum are unremarkable. Distal colonic diverticulosis without evide nce for acute diverticulitis. Descending colon wall thickening likely related to portal colopathy. No evidence of bowel obstruction. PERITONEUM: No evidence of pneumoperitoneum and large volume ascites. Mesenteric edema. VASCULATURE: No evidence of aortic aneurysm. MUSCULOSKELETAL: No acute osseous abnormalities LYMPH NODES: No gross evidence for lymphadenopathy. SOFT TISSUE/ABDOMINAL WALL: Moderate sized hernia containing ascites. IMPRESSION: 1. Hepatic cirrhosis redemonstrated with findings of portal hypertension including large volume asci miguel. Thickening of the ascending colon wall is again demonstrated favored to represent portal colopat hy. 2. Cholelithiasis.
[2022-05-01 15:23] LABS: ALT 36 U/L (4-49); AST 82 U/L (17-59); African American GFR (CKD) >90 (>60 ml/min/1.73 sqM); Albumin 3.4 g/dL (3.5-5.0); Alkaline Phosphatase 113 U/L (38-126); Amylase 43 U/L (30-110); Anion Gap 11 mmol/L; Blood Urea Nitrogen 14 mg/dL (9-20); Calcium 7.7 mg/dL (8.4-10.2); Carbon Dioxide 17 mmol/L (22-30); Chloride 111 mmol/L (98-107); Glucose 114 mg/dL (74-99); Lipase 153 U/L (23-300); Non-African American GFR(CKD) >90 (>60 ml/min/1.73 sqM); Potassium 3.9 mmol/L (3.5-5.1); Sodium 139 mmol/L (137-145); Total Bilirubin 1.9 mg/dL (0.2-1.3); Total Protein 7.1 g/dL (6.3-8.2)
[2022-05-01] MEDS ORDERED: MORPHINE SULFATE 2 MG/ML SYRINGE IVP ONE (15:41)
[2022-05-01 15:49] LABS: Alcohol 255 mg/dL
--- NOTE | 2022-05-01 16:45 | XR ---
EXAMINATION TYPE: XR chest 2V DATE OF EXAM: 05/01/2022 COMPARISON: Chest x-ray April 11, 2022 HISTORY: Pain and swelling. Ascites. TECHNIQUE: Frontal and lateral views of the chest are obtained. FINDINGS: There is no suspicious new focal air space opacity, pleural effusion, or pneumothorax seen . Low lung volumes are redemonstrated. Stable mild linear scarring or atelectasis in the left lung ba se. The cardiac silhouette size is stable and within normal limits. The osseous structures are inta ct. IMPRESSION: As above. No significant change from recent chest x-ray.
[2022-05-01] MEDS ORDERED: NALOXONE 0.4 MG/ML 1 ML VIAL IV PRN (18:11)
[2022-05-01] MEDS: SODIUM CHLORIDE 0.9% 1,000 ML IV SCH (19:19)
[2022-05-01] MEDS ORDERED: THIAMINE 100 MG/ML 2 ML VIAL IM STA (20:13)
[2022-05-01] MEDS ORDERED: LORazepam 2 MG/ML INJ IV PRN ×2 (20:13)
[2022-05-01 21:57] LABS: Appearance,Urine Clear (Clear); Bilirubin,Urine Negative (Negative); Blood,Urine Negative (Negative); Color,Urine Yellow; Glucose,Urine (UA) Negative (Negative); Ketones,Urine 1+ (Negative); Leukocyte Esterase,Urine Negative (Negative); Mucus,Urine Moderate /hpf; Nitrite,Urine Negative (Negative); Protein,Urine 1+ (Negative); RBC,Urine <1 /hpf (0-5); Specific Gravity,Urine 1.028 (1.001-1.035); WBC,Urine 1 /hpf (0-5)
[2022-05-01] MEDS: MORPHINE SULFATE 2 MG/ML SYRINGE IV PRN (23:13)
[2022-05-02] MEDS: LORazepam 2 MG/ML INJ IV PRN ×3 (01:19→08:46)
[2022-05-02] MEDS: MORPHINE SULFATE 2 MG/ML SYRINGE IV PRN ×3 (04:23→19:35)
[2022-05-02] MEDS: THIAMINE 100 MG TAB PO SCH (08:46)
[2022-05-02 10:06] LABS: African American GFR (CKD) 144.7 (60.0-200.0); Anion Gap 11.6 mmol/L (10.00-18.00); BUN/Creat Ratio 19.83 Ratio (12.00-20.00); Blood Urea Nitrogen 11.9 mg/dL (9.0-27.0); Calcium 7.6 mg/dL (8.7-10.3); Carbon Dioxide 20.4 mmol/L (20.0-27.5); Non-African American GFR(CKD) 124.9 (60.0-200.0); Potassium 3.6 mmol/L (3.5-5.5)
[2022-05-02 10:31] LABS: Basophils # (A) 0.06 X 10*3/uL (0.00-0.10); Basophils % (A) 0.7 %; Eosinophils # (A) 0.34 X 10*3/uL (0.04-0.35); Eosinophils % (A) 4.2 %; HCT 20.9 % (39.6-50.0); HGB 6.7 g/dL (13.0-17.0); Immature Grans, Automated 0.2 %; Lymphocytes # (A) 2.02 X 10*3/uL (0.90-5.00); Lymphocytes % (A) 24.9 %; MCH 32.8 pg (27.0-32.0); MCHC 32.1 g/dL (32.0-37.0); MCV 102.5 fL (80.0-97.0); Mean Platelet Volume 10.2 fL (9.5-12.2); Monocytes # (A) 0.65 X 10*3/uL (0.20-1.00); NRBC Per 100 WBC 0 /100 WBCS (0.0-0.0); Neutrophils # (A) 5.02 X 10*3/uL (1.80-7.70); Platelet Count 106 X 10*3/uL (140-440); RBC 2.04 X 10*6/uL (4.40-5.60); RDW 15.7 % (11.5-14.5); WBC 8.11 X 10*3/uL (4.50-10.00)
--- NOTE | 2022-05-02 14:41 | P.CONS ---
History of Present Illness - Reason for Consult Consult date: 05/02/22 (Late entry patient seen at 0645) Ascites with cirrhosis Requesting physician: Thao Moreau - Chief Complaint Abdominal pain - History of Present Illness Pleasant 42-year-old male who presented to the emergency department with complaints of abdominal pain and chest pain. He has a history of heavy alcohol abuse with cirrhosis of the liver. Patient has not been following up with gastroenterology. His last hospitalization and paracentesis was in August 2021. States that he has not been drinking as much but drank a fifth of whiskey yesterday. States he has noticed abdominal distention over the last week's duration. He is denying any shortness of breath at this time. He states that he did have some chest pressure when he came into the emergency department and thought that it could be related to anxiety. Denies any nausea or vomiting, no hematemesis. Gastroenterology was consulted for ascites and cirrhosis of the liver. Imaging CT abdomen and pelvis without contrast reports hepatic cirrhosis redemonstrated with findings of portal hypertension including large volume ascites. Thickening of the ascending colon wall is again demonstrated favored to represent portal colopathy. Cholelithiasis Chest x-ray reports no acute findings, no significant change from recent chest x-ray Admitting labs WBC 8.6 hemoglobin 8.3 hematocrit 25 platelet count 190,000 INR 1.5 sodium 139 potassium 3.9 BUN 14 creatinine 0.56 lactic acid 2.5 total bilirubin 1.9 AST 82 he'll T 36 alkaline phosphatase 113 amylase 43 lipase 153 Review of Systems REVIEW OF SYSTEMS: CARDIOPULMONARY: No chest pain or shortness of breath. Gastrointestinal: Burning sensation in epigastric region, no associated abdominal pain. No nausea or vomiting. No hematemesis, coffee-ground emesis. No rectal bleeding, or melena. GENITOURINARY: No dysuria or hematuria. MUSCULOSKELETAL: Reports normal range of motion. SKIN: No rashes. No jaundice. ENDOCRINE: No chills, fevers. No excessive weight gain or loss. No polydipsia or polyuria. PSYCHIATRIC: Unremarkable. NEUROLOGY: No change in mental status. Denies dizziness, headache. ENT: Vision unremarkable. CONSTITUTIONAL: No recent weight loss. No fever, chills, night sweats. Abdominal distention and discomfort. Past Medical History Past Medical History: Hyperlipidemia, Hypertension, Liver Disease, Pneumonia Additional Past Medical History / Comment(s): Alcoholism, past withdrawals with tremors/diaphoresis, elevated LFTs, alcoholic liver cirrhosis, ascities with paracentesis, severe sepsis/aspiration pneumonia, occasional upper back pain. History of Any Multi-Drug Resistant Organisms: None Reported Past Surgical History: No Surgical Hx Reported Additional Past Surgical History / Comment(s): Pt states he has never had surgery Past Anesthesia/Blood Transfusion Reactions: Unable to Obtain Additional Past Anesthesia/Blood Transfusion Reaction / Comm: Pt states he has never had surgery. 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 Smoking Status: Current every day smoker Past Alcohol Use History: Occasional Additional Past Alcohol Use History / Comment(s): Pt started smoking in 2000 and a pack will last 3 days. Pt has hx of alcoholism. He states he quit drinking in August 2021 but recently went back to drinking, he drank 11/1821. Past Drug Use History: None Reported - Past Family History Mother Family Medical History: Cancer Additional Family Medical History / Comment(s): Mother has colon cancer. Father History Unknown: Yes Additional Family Medical History / Comment(s): All pt knows about his father is that he is . Medications and Allergies Home Medications Medication Instructions Recorded Confirmed Type Magnesium Oxide [Mag-Ox] 400 mg PO DAILY #30 tablet 05/29/21 05/01/22 Rx Thiamine [Vitamin B-1] 100 mg PO DAILY #30 tablet 05/29/21 05/01/22 Rx Folic Acid 1 mg PO DAILY 08/10/21 05/01/22 History Potassium Gluconate [Potassium 99 mg PO DAILY 04/11/22 05/01/22 History Gluconate ER] Allergies Allergy/AdvReac Type Severity Reaction Status Date / Time ibuprofen [From Motrin] Allergy Swelling Verified 05/01/22 16:51 Lips naproxen Allergy Swelling Verified 05/01/22 16:51 Lips Physical Exam Vitals: Vital Signs Temp Pulse Pulse Resp BP BP Pulse Ox 05/02/22 14:08 101 H 18 108/56 94 L 05/02/22 13:47 103 H 16 117/68 95 05/02/22 13:15 103 H 16 118/71 95 05/02/22 07:30 97.9 F 91 20 110/62 92 L 05/02/22 07:25 91 20 05/02/22 01:30 98.2 F 104 H 16 98/57 98 05/01/22 23:23 98.3 F 88 20 139/71 100 05/01/22 21:30 98.2 F 85 16 120/67 97 05/01/22 18:49 70 20 124/65 100 05/01/22 15:54 85 19 112/73 99 Intake and Output 05/01/22 05/02/22 05/02/22 22:59 06:59 14:59 Intake Total 1560 Output Total 0 Balance 1560 Intake: Oral 1560 Output: Urine 0 Other: # Voids 1 # Bowel Movements 1 Weight 97.522 kg General appearance: The patient is alert, oriented, appears in no acute distress. HET: Head is normocephalic and atraumatic. Conjunctiva pink. Sclera icteric. Neck: Supple without lymphadenopathy. Trachea midline. Heart: S1 S2. Regular rate and rhythm. Lungs: Clear to auscultation. Abdomen: Soft, diffuse tenderness with abdominal distention, ascites. No guarding or rigidity. Skin: No rashes. Jaundice. Extremities: Normal skin color and turgor. No pedal edema. Neurological: No focal deficits. Alert and oriented x3. Results CBC & Chem 7: 05/02/22 05:26 05/02/22 05:26 Labs: Abnormal Lab Results - Last 24 Hours (Table) 05/01/22 05/01/22 05/01/22 Range/Units 14:30 14:30 14:30 RBC 2.49 L (4.30-5.90) m/uL Hgb 8.3 L D (13.0-17.5) gm/dL Hct 25.4 L (39.0-53.0) % MCV 102.0 H (80.0-100.0) fL MCH (27.0-32.0) pg RDW 15.7 H (11.5-15.5) % Plt Count (140-440) X 10*3/uL PT 15.1 H (9.0-12.0) sec INR 1.5 H (<1.2) Chloride (98-107) mmol/L Carbon Dioxide (22-30) mmol/L Creatinine (0.66-1.25) mg/dL Glucose (74-99) mg/dL Plasma Lactic Acid Willam 4.5 H* (0.7-2.0) mmol/L Calcium (8.4-10.2) mg/dL Total Bilirubin (0.2-1.3) mg/dL AST (17-59) U/L Albumin (3.5-5.0) g/dL Urine Protein (Negative) Urine Ketones (Negative) Urine Mucus (None) /hpf Serum Alcohol mg/dL Crossmatch 05/01/22 05/01/22 05/01/22 Range/Units 15:22 18:15 21:35 RBC (4.30-5.90) m/uL Hgb (13.0-17.5) gm/dL Hct (39.0-53.0) % MCV (80.0-100.0) fL MCH (27.0-32.0) pg RDW (11.5-15.5) % Plt Count (140-440) X 10*3/uL PT (9.0-12.0) sec INR (<1.2) Chloride 111 H (98-107) mmol/L Carbon Dioxide 17 L (22-30) mmol/L Creatinine 0.56 L (0.66-1.25) mg/dL Glucose 114 H (74-99) mg/dL Plasma Lactic Acid Willam 2.5 H* (0.7-2.0) mmol/L Calcium 7.7 L (8.4-10.2) mg/dL Total Bilirubin 1.9 H (0.2-1.3) mg/dL AST 82 H (17-59) U/L Albumin 3.4 L (3.5-5.0) g/dL Urine Protein 1+ H (Negative) Urine Ketones 1+ H (Negative) Urine Mucus Moderate H (None) /hpf Serum Alcohol 255 H* mg/dL Crossmatch 05/02/22 05/02/22 05/02/22 Range/Units 02:00 05:26 05:26 RBC 2.04 L (4.30-5.90) m/uL Hgb 6.7 L* (13.0-17.5) gm/dL Hct 20.9 L (39.0-53.0) % MCV 102.5 H (80.0-100.0) fL MCH 32.8 H (27.0-32.0) pg RDW 15.7 H (11.5-15.5) % Plt Count 106 L (140-440) X 10*3/uL PT (9.0-12.0) sec INR (<1.2) Chloride (98-107) mmol/L Carbon Dioxide (22-30) mmol/L Creatinine (0.66-1.25) mg/dL Glucose (74-99) mg/dL Plasma Lactic Acid Willam 4.6 H* (0.7-2.0) mmol/L Calcium 7.6 L (8.4-10.2) mg/dL Total Bilirubin (0.2-1.3) mg/dL AST (17-59) U/L Albumin (3.5-5.0) g/dL Urine Protein (Negative) Urine Ketones (Negative) Urine Mucus (None) /hpf Serum Alcohol mg/dL Crossmatch 05/02/22 Range/Units 11:53 RBC (4.30-5.90) m/uL Hgb (13.0-17.5) gm/dL Hct (39.0-53.0) % MCV (80.0-100.0) fL MCH (27.0-32.0) pg RDW (11.5-15.5) % Plt Count (140-440) X 10*3/uL PT (9.0-12.0) sec INR (<1.2) Chloride (98-107) mmol/L Carbon Dioxide (22-30) mmol/L Creatinine (0.66-1.25) mg/dL Glucose (74-99) mg/dL Plasma Lactic Acid Willam (0.7-2.0) mmol/L Calcium (8.4-10.2) mg/dL Total Bilirubin (0.2-1.3) mg/dL AST (17-59) U/L Albumin (3.5-5.0) g/dL Urine Protein (Negative) Urine Ketones (Negative) Urine Mucus (None) /hpf Serum Alcohol mg/dL Crossmatch See Detail Assessment and Plan (1) Alcoholic cirrhosis of liver with ascites Narrative/Plan: 42-year-old with a history of alcoholic cirrhosis of the liver who is noncompliant and has not had any follow-up with gastroenterology. Patient was recently hospitalized in March for abdominal pain and workup with general surgery for cholelithiasis. At that time he was also noted to have ascites however no paracentesis was completed at that time. Patient came in with complaints of chest pain and abdominal pain and distention. A CT of the abdomen and pelvis shows large amount of ascites, cirrhosis of the liver with portal hypertension. Patient admits to continuously drink. He states that he had cut back but he drink but the whiskey yesterday. He had a blood alcohol level of 255 on admission. Labs are consistent with decompensated cirrhosis of the liver. Patient with macrocytic anemia and thrombocytopenia again consistent with underlying liver disease Without any evidence of GI bleed. Paracentesis ordered, diuretics ordered. Current Visit: Yes Status: Acute Code(s): K70.31 - ALCOHOLIC CIRRHOSIS OF LIVER WITH ASCITES SNOMED Code(s): 982834609 (2) Alcohol intoxication Current Visit: Yes Status: Acute Code(s): F10.929 - ALCOHOL USE, UNSPECIFIED WITH INTOXICATION, UNSPECIFIED SNOMED Code(s): 14012540 (3) Anemia Current Visit: Yes Status: Acute Code(s): D64.9 - ANEMIA, UNSPECIFIED SNOM ED Code(s): 350810245 (4) Thrombocytopenia Current Visit: Yes Status: Acute Code(s): D69.6 - THROMBOCYTOPENIA, UNSPECIFIED SNOMED Code(s): 751471278 (5) Alcohol abuse Current Visit: Yes Status: Acute Code(s): F10.10 - ALCOHOL ABUSE, UNCOMPLICATED SNOMED Code(s): 30196846 Plan: 1. Continue symptomatic and supportive care 2. Daily CBC, transfuse her hemoglobin less than 7 3. Lasix 40 mg daily, Aldactone for 100 mg daily started 4. Paracentesis order 5. Alcohol abstinence. Discussed with patient importance of follow-up and alcohol abstinence due to underlying decompensated cirrhosis of the liver. 6. Monitor patient for withdrawal symptoms Thank you for this consultation. Thank you for allowing us to participate in the care of the patient, the GI service will sign off, gastroenterology will not be available at the hospital this weekend and through next week. If further evaluation by gastroenterology is required the patient will need transfer as per the primary team's discretion. Dr. Reinaldo Negron I agree with the dictator's note, documented as a scribe by Zuleyma Arriola.
--- NOTE | 2022-05-02 15:37 | P.HPIM ---
History of Present Illness H&P Date: 05/02/22 I was informed that we were taking over care of this patient 9:44 AM from the initial accepting physician. Patient is a 42-year-old male with PMH of chronic alcohol abuse and cirrhosis the presents the ED for abdominal pain and distention. Patient reports drinking a 12 pack of beer daily. He reports abdominal distention that has been progressively getting worse over the past week. He reports generalized abdominal pain described as throbbing, 9 out of 10 in severity with no radiating features. He denies any nausea or vomiting. He denies any bladder or bowel changes. He denies any headache, lower extremity edema, fever or chills, cough, chest pain, shortness of breath, palpitations, changes in appetite or weight. He denies any dizziness, numbness/weakness/tingling of extremities. In the ED, his vital signs are stable. CBC showed hemoglobin of 8.3 with MCV of 102. INR was 1.5. CMP showed chloride of 111, bicarb of 17, creatinine is 0.56, glucose 114, calcium was 7.7, total bilirubin of 1.9, AST of 82. Lipase is negative. Troponin negative. Serum alcohol was 255. Urinalysis showed 1+ protein, 1+ ketone and moderate mucus. COVID-19, RSV, flu negative. CTAP showed hepatic cirrhosis with findings of portal hypertension including large volume ascites, thickening of the ascending colon, cholelithiasis. Patient was admitted for further management of symptoms. Pertinent positives and negatives as discussed in HPI, a complete review of systems was performed and all other systems are negative. General: non toxic, lethargic, appears at stated age Derm: warm, dry Head: atraumatic, normocephalic, symmetric Eyes: EOMI, no lid lag, icteric sclera Mouth: no lip lesion, mucus membranes moist Cardiovascular: Tachycardic, no murmur, positive posterior tibial pulse bilate ral, Lungs: CTA bilateral, no rhonchi, no rales , no accessory muscle use Abdominal: Distended, tenderness to palpation in all 4 quadrants without rebound, no guarding, no appreciable organomegaly Ext: no gross muscle atrophy, no edema, no contractures Neuro: CN II-XI grossly intact, no focal neuro deficits Psych: Alert, oriented, appropriate affect #Decompensated alcoholic cirrhosis #Lactic acidosis Interventional radiology has been consulted for large volume paracentesis. Gastroenterology consulted, recommendations appreciated. Start Lasix 40 mg by mouth daily. Start Aldactone 100 mg by mouth daily. IV albumin ordered. #Alcohol intoxication with impending withdrawal Patient be placed on CIWA protocol and given Ativan as needed. Patient is encouraged to quit drinking alcohol. #Macrocytic anemia with normocytic anemia Hemoglobin 6.7 with MCV of 102.5. Platelet count 106. Transfuse 1 unit PRBC. Thrombocytopenia likely related to chronic alcohol abuse. Obtain ferritin and iron studies, B12, Folic acid. DVT prophylaxis: SCDs Discussed with: Patient Anticipated discharge: 2-[address]: Home A total of 30 minutes was spent on the care of this complex patient more than 50% of the time was spent in counseling and care coordination. Past Medical History Past Medical History: Hyperlipidemia, Hypertension, Liver Disease, Pneumonia Additional Past Medical History / Comment(s): Alcoholism, past withdrawals with tremors/diaphoresis, elevated LFTs, alcoholic liver cirrhosis, ascities with paracentesis, severe sepsis/aspiration pneumonia, occasional upper back pain. History of Any Multi-Drug Resistant Organisms: None Reported Past Surgical History: No Surgical Hx Reported Additional Past Surgical History / Comment(s): Pt states he has never had surgery Past Anesthesia/Blood Transfusion Reactions: Unable to Obtain Additional Past Anesthesia/Blood Transfusion Reaction / Comment(s): Pt states he has never had surgery. 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 Smoking Status: Current every day smoker Past Alcohol Use History: Occasional Additional Past Alcohol Use History / Comment(s): Pt started smoking in 2000 and a pack will last 3 days. Pt has hx of alcoholism. He states he quit drinking in August 2021 but recently went back to drinking, he drank 11/1821. Past Drug Use History: None Reported - Past Family History Mother Family Medical History: Cancer Additional Family Medical History / Comment(s): Mother has colon cancer. Father History Unknown: Yes Additional Family Medical History / Comment(s): All pt knows about his father is that he is . Medications and Allergies Home Medications Medication Instructions Recorded Confirmed Type Magnesium Oxide [Mag-Ox] 400 mg PO DAILY #30 tablet 05/29/21 05/01/22 Rx Thiamine [Vitamin B-1] 100 mg PO DAILY #30 tablet 05/29/21 05/01/22 Rx Folic Acid 1 mg PO DAILY 08/10/21 05/01/22 History Potassium Gluconate [Potassium 99 mg PO DAILY 04/11/22 05/01/22 History Gluconate ER] Allergies Allergy/AdvReac Type Severity Reaction Status Date / Time ibuprofen [From Motrin] Allergy Swelling Verified 05/01/22 16:51 Lips naproxen Allergy Swelling Verified 05/01/22 16:51 Lips Physical Exam Vitals: Vital Signs Temp Pulse Pulse Resp BP BP Pulse Ox 05/02/22 15:32 97.9 F 97 15 116/55 05/02/22 15:10 98.0 F 101 H 19 109/57 95 05/02/22 14:27 100 16 120/62 96 05/02/22 14:08 101 H 18 108/56 94 L 05/02/22 13:47 103 H 16 117/68 95 05/02/22 13:15 103 H 16 118/71 95 05/02/22 07:30 97.9 F 91 20 110/62 92 L 05/02/22 07:25 91 20 05/02/22 01:30 98.2 F 104 H 16 98/57 98 05/01/22 23:23 98.3 F 88 20 139/71 100 05/01/22 21:30 98.2 F 85 16 120/67 97 05/01/22 18:49 70 20 124/65 100 05/01/22 15:54 85 19 112/73 99 Intake and Output 05/02/22 05/02/22 05/02/22 06:59 14:59 22:59 Intake Total 1560 0 Output Total 0 Balance 1560 0 Intake: Oral 1560 Blood Product 0 Unit 0 Output: Urine 0 Other: # Voids 1 # Bowel Movements 1 Weight 97.522 kg Results CBC & Chem 7: 05/02/22 05:26 05/02/22 05:26 Labs: Abnormal Lab Results - Last 24 Hours (Table) 05/01/22 05/01/22 05/01/22 Range/Units 15:22 18:15 21:35 RBC (4.40-5.60) X 10*6/uL Hgb (13.0-17.0) g/dL Hct (39.6-50.0) % MCV (80.0-97.0) fL MCH (27.0-32.0) pg RDW (11.5-14.5) % Plt Count (140-440) X 10*3/uL Chloride 111 H (98-107) mmol/L Carbon Dioxide 17 L (22-30) mmol/L Creatinine 0.56 L (0.66-1.25) mg/dL Glucose 114 H (74-99) mg/dL Plasma Lactic Acid Willam 2.5 H* (0.7-2.0) mmol/L Calcium 7.7 L (8.4-10.2) mg/dL Total Bilirubin 1.9 H (0.2-1.3) mg/dL AST 82 H (17-59) U/L Albumin 3.4 L (3.5-5.0) g/dL Urine Protein 1+ H (Negative) Urine Ketones 1+ H (Negative) Urine Mucus Moderate H (None) /hpf Serum Alcohol 255 H* mg/dL Crossmatch 05/02/22 05/02/22 05/02/22 Range/Units 02:00 05:26 05:26 RBC 2.04 L (4.40-5.60) X 10*6/uL Hgb 6.7 L* (13.0-17.0) g/dL Hct 20.9 L (39.6-50.0) % MCV 102.5 H (80.0-97.0) fL MCH 32.8 H (27.0-32.0) pg RDW 15.7 H (11.5-14.5) % Plt Count 106 L (140-440) X 10*3/uL Chloride (98-107) mmol/L Carbon Dioxide (22-30) mmol/L Creatinine (0.66-1.25) mg/dL Glucose (74-99) mg/dL Plasma Lactic Acid Willam 4.6 H* (0.7-2.0) mmol/L Calcium 7.6 L (8.4-10.2) mg/dL Total Bilirubin (0.2-1.3) mg/dL AST (17-59) U/L Albumin (3.5-5.0) g/dL Urine Protein (Negative) Urine Ketones (Negative) Urine Mucus (None) /hpf Serum Alcohol mg/dL Crossmatch 05/02/22 Range/Units 11:53 RBC (4.40-5.60) X 10*6/uL Hgb (13.0-17.0) g/dL Hct (39.6-50.0) % MCV (80.0-97.0) fL MCH (27.0-32.0) pg RDW (11.5-14.5) % Plt Count (140-440) X 10*3/uL Chloride (98-107) mmol/L Carbon Dioxide (22-30) mmol/L Creatinine (0.66-1.25) mg/dL Glucose (74-99) mg/dL Plasma Lactic Acid Willam (0.7-2.0) mmol/L Calcium (8.4-10.2) mg/dL Total Bilirubin (0.2-1.3) mg/dL AST (17-59) U/L Albumin (3.5-5.0) g/dL Urine Protein (Negative) Urine Ketones (Negative) Urine Mucus (None) /hpf Serum Alcohol mg/dL Crossmatch See Detail Thrombosis Risk Factor Assmnt - Choose All That Apply Each Factor Represents 1 point: Age 41-60 years Other Risk Factors: No Other congenital or acquired thrombophilia - If yes, enter type in comment: No Thrombosis Risk Factor Assessment Total Risk Factor Score: 1 Thrombosis Risk Factor Assessment Level: Low Risk
[2022-05-02] MEDS: FUROSEMIDE 40 MG TAB PO SCH (15:38)
[2022-05-02] MEDS: SPIRONOLACTONE 25 MG TAB PO SCH (15:38)
--- NOTE | 2022-05-02 15:53 | US ---
Ultrasound-guided paracentesis. DATE OF EXAM: 05/02/2022 CLINICAL HISTORY: Ascites The procedure was discussed with the patient. The risks, complications, benefits, and alternatives we re discussed and any questions were answered. Informed consent was obtained. The patient was placed s upine on the ultrasound table and prepped and draped in the usual sterile fashion. All elements of maximal barrier technique were utilized. Under ultrasound guidance, access into the right lower quadrant was obtained, via the paracentesis catheter system and direct ultrasound guidanc e. Approximately 5 liters of straw-colored fluid was removed. The patient was stable throughout the proc edure and remained stable upon discharge from Department of Radiology. IMPRESSION: Successful paracentesis under ultrasound guidance.
[2022-05-02] MEDS: ALBUMIN HUMAN 25% 50 ML in EMPTY BAG 1 BAG IVPB SCH ×4 (18:11→19:46)
[2022-05-02] MEDS: SODIUM CHLORIDE 0.9% 1,000 ML IV SCH (19:47)
[2022-05-03] MEDS: MORPHINE SULFATE 2 MG/ML SYRINGE IV PRN ×4 (02:20→23:49)
[2022-05-03] MEDS: FUROSEMIDE 40 MG TAB PO SCH (08:24)
[2022-05-03] MEDS: THIAMINE 100 MG TAB PO SCH (08:24)
[2022-05-03] MEDS: SPIRONOLACTONE 25 MG TAB PO SCH (08:24)
[2022-05-03 12:14] LABS: HGB 7.3 g/dL (13.0-17.0); Immature Platelet Fraction 6.5 % (1.1-6.1); MCHC 33.2 g/dL (32.0-37.0); MCV 99.5 fL (80.0-97.0); Mean Platelet Volume 10.9 fL (9.5-12.2); NRBC Per 100 WBC 0 /100 WBCS (0.0-0.0); Platelet Count 62 X 10*3/uL (140-440); RBC 2.21 X 10*6/uL (4.40-5.60); WBC 5.33 X 10*3/uL (4.50-10.00)
[2022-05-03 12:16] LABS: % Iron Saturation 18.02 (15.00-50.00); Ferritin 52.9 ng/mL (22.0-322.0)
[2022-05-03 12:21] LABS: African American GFR (CKD) 128.6 (60.0-200.0); Albumin 3.3 g/dL (3.8-4.9); Albumin/Globulin Ratio 1.38 (1.60-3.17); Anion Gap 10.3 mmol/L (10.00-18.00); BUN/Creat Ratio 13.63 Ratio (12.00-20.00); Blood Urea Nitrogen 10.9 mg/dL (9.0-27.0); Calcium 7.9 mg/dL (8.7-10.3); Carbon Dioxide 20.7 mmol/L (20.0-27.5); Globulin 2.4 g/dL (1.6-3.3); Potassium 3.6 mmol/L (3.5-5.5); Total Bilirubin 3.6 mg/dL (0.30-1.20); Total Protein 5.7 g/dL (6.2-8.2)
--- NOTE | 2022-05-03 13:23 | P.PN ---
Subjective Progress Note Date: 05/03/22 Patient is a 42-year-old male with PMH of chronic alcohol abuse and cirrhosis the presents the ED for abdominal pain and distention. Patient reports drinking a 12 pack of beer daily. He reports abdominal distention that has been progressively getting worse over the past week. He reports generalized abd ominal pain described as throbbing, 9 out of 10 in severity with no radiating features. He denies any nausea or vomiting. He denies any bladder or bowel changes. He denies any headache, lower extremity edema, fever or chills, cough, chest pain, shortness of breath, palpitations, changes in appetite or weight. He denies any dizziness, numbness/weakness/tingling of extremities. In the ED, his vital signs are stable. CBC showed hemoglobin of 8.3 with MCV of 102. INR was 1.5. CMP showed chloride of 111, bicarb of 17, creatinine is 0.56, glucose 114, calcium was 7.7, total bilirubin of 1.9, AST of 82. Lipase is negative. Troponin negative. Serum alcohol was 255. Urinalysis showed 1+ protein, 1+ ketone and moderate mucus. COVID-19, RSV, flu negative. CTAP showed hepatic cirrhosis with findings of portal hypertension including large volume ascites, thickening of the ascending colon, cholelithiasis. Patient was admitted for further management of symptoms. His hemoglobin was 6.7. He was transfused 1 unit PRBC. Repeat hemoglobin was 7.3. Patient denies any changes in his bowel m ovements and there was no active signs of bleeding noted. He underwent paracentesis with 5L of fluid removal. Initial lactic acid of 4.6 trended down to within normal limits. Patient was seen and examined. No acute events overnight. Patient does report abdominal pain, generalized right greater than left. No nausea or vomiting. He reports normal bowel movements. States that he is under considerable stress since his dog got run over by car. General: non toxic, lethargic, appears at stated age Derm: warm, dry Head: atraumatic, normocephalic, symmetric Eyes: EOMI, no lid lag, icteric sclera Mouth: no lip lesion, mucus membranes moist Cardiovascular: Tachycardic, no murmur, positive posterior tibial pulse bilateral, Lungs: CTA bilateral, no rhonchi, no rales , no accessory muscle use Abdominal: Distended, tenderness to palpation in all 4 quadrants without rebound, no guarding, no appreciable organomegaly Ext: no gross muscle atrophy, no edema, no contractures Neuro: no focal neuro deficits Psych: Alert, oriented, appropriate affect #Decompensated alcoholic cirrhosis #Lactic acidosis Interventional radiology has been consulted for large volume paracentesis. s/p paracentesis with removal 5 L straw-colored fluid Gastroenterology consulted, recommendations appreciated. Continue Lasix 40 mg by mouth daily. Continue Aldactone 100 mg by mouth daily. IV albumin ordered. #Alcohol intoxication with impending withdrawal Patient be placed on CIWA protocol and given Ativan as needed. Patient is encouraged to quit drinking alcohol. #Macrocytic anemia with normocytic anemia Hemoglobin 6.7-7.3 with MCV of 102.5-99.5. Platelet count 106-62. Status post 1 unit PRBC. Thrombocytopenia and macrocytic anemia likely related to chronic alcohol abuse and cirrhosis. B12 and folic acid within normal limits. Iron slightly low at 45 with normal ferritin. We will continue to monitor the patient overnight. Plans to repeat hemoglobin tomorrow morning. Anticipated DC home tomorrow if hemoglobin remained stable. Objective - Vital Signs Vital signs: Vital Signs Temp 98.2 F 05/03/22 07:40 Pulse 88 05/03/22 07:40 Resp 19 05/03/22 07:40 BP 107/56 05/03/22 07:40 Pulse Ox 94 L 05/03/22 07:40 FiO2 Intake & Output 05/02/22 05/03/22 05/03/22 18:59 06:59 18:59 Intake Total 720 600 Output Total 450 Balance 270 600 Intake: Intake, IV Titration 100 100 Amount Albumin Human 25% 50 ml 100 100 In Empty Bag 1 bag @ 200 mls/hr IVPB Q15M [facility] Rx#: [id number] Oral 500 Blood Product 620 Rc As-1 Unit 310 [id number] Output: Urine 450 Other: Voiding Method Toilet # Voids 2 3 - Labs CBC & Chem 7: 05/03/22 06:33 05/03/22 06:33 Labs: Abnormal Lab Results - Last 24 Hours (Table) 05/02/22 05/03/22 05/03/22 Range/Units 11:53 06:33 06:33 RBC 2.21 L (4.40-5.60) X 10*6/uL Hgb 7.3 L (13.0-17.0) g/dL Hct 22.0 L (39.6-50.0) % MCV 99.5 H (80.0-97.0) fL MCH 33.0 H (27.0-32.0) pg RDW 17.0 H (11.5-14.5) % Plt Count 62 L (140-440) X 10*3/uL Plt Count Comment DECREASED A Immature Plt Fraction 6.5 H (1.1-6.1) % Calcium 7.9 L (8.7-10.3) mg/dL Iron 45 L (65-175) ug/dL Transferrin 180.0 L (204.0-354.0) mg/dL Total Bilirubin 3.60 H (0.30-1.20) mg/dL AST 51 H (14-35) U/L Total Protein 5.7 L (6.2-8.2) g/dL Albumin 3.3 L (3.8-4.9) g/dL Albumin/Globulin Ratio 1.38 L (1.60-3.17) g/dL Crossmatch See Detail
[2022-05-03] MEDS: SODIUM CHLORIDE 0.9% 1,000 ML IV SCH (18:20)
[2022-05-04] MEDS: MORPHINE SULFATE 2 MG/ML SYRINGE IV PRN (05:42)
[2022-05-04 06:40] LABS: African American GFR (CKD) >90 (>60 ml/min/1.73 sqM); Anion Gap 4 mmol/L; Blood Urea Nitrogen 11 mg/dL (9-20); Calcium 7.3 mg/dL (8.4-10.2); Carbon Dioxide 24 mmol/L (22-30); Chloride 107 mmol/L (98-107); Glucose 114 mg/dL (74-99); Non-African American GFR(CKD) >90 (>60 ml/min/1.73 sqM); Potassium 3.3 mmol/L (3.5-5.1); Sodium 135 mmol/L (137-145)
[2022-05-04 06:44] LABS: Anisocytosis Slight; HGB 8.1 gm/dL (13.0-17.5); Hypochromasia Moderate; MCH 32.5 pg (25.0-35.0); MCHC 32.5 g/dL (31.0-37.0); MCV 100.1 fL (80.0-100.0); Macrocytosis Slight; Mean Platelet Volume 10.6; Poikilocytosis Slight; RDW 16.4 % (11.5-15.5)
[2022-05-04 07:49] VITALS: BP 107/59; PULSE 86; RESP 19; TEMP 98.4
[2022-05-04 07:58] LABS: Platelet Count 61 k/uL (150-450)
[2022-05-04] MEDS ORDERED: POTASSIUM CHLORIDE ER 20 MEQ TAB.ER PO STA (08:01)
[2022-05-04] MEDS: SPIRONOLACTONE 25 MG TAB PO SCH (08:29)
[2022-05-04] MEDS: FUROSEMIDE 40 MG TAB PO SCH (08:30)
[2022-05-04] MEDS: THIAMINE 100 MG TAB PO SCH (08:30)
--- NOTE | 2022-05-04 12:47 | P.DS ---
Providers Date of admission: 05/01/22 18:11 Expected date of discharge: 05/04/22 Attending physician: John Bosch MD Consults: 05/01/22 18:18 Consult Physician Routine Consulting Provider: Gina Negron Consult Reason/Comments: ascites, cirrhosis Do you want consulting provider notified?: Yes Primary care physician: [place] Hospital Course: Patient is a 42-year-old male with PMH of chronic alcohol abuse and cirrhosis the presents the ED for abdominal pain and distention. Patient reports drinking a 12 pack of beer daily. He reports abdominal distention that has been progressively getting worse over the past week. He reports generalized abdominal pain described as throbbing, 9 out of 10 in severity with no radiating features. He denies any nausea or vomiting. He denies any bladder or bowel changes. He denies any headache, lower extremity edema, fever or chills, cough, chest pain, shortness of breath, palpitations, changes in appetite or weight. He denies any dizziness, numbness/weakness/tingling of extremities. In the ED, his vital signs are stable. CBC showed hemoglobin of 8.3 with MCV of 102. INR was 1.5. CMP showed chloride of 111, bicarb of 17, creatinine is 0.56, glucose 114, calcium was 7.7, total bilirubin of 1.9, AST of 82. Lipase is negative. Troponin negative. Serum alcohol was 255. Urinalysis showed 1+ protein, 1+ ketone and moderate mucus. COVID-19, RSV, flu negative. CTAP showed hepatic cirrhosis with findings of portal hypertension including large volume ascites, thickening of the ascending colon, cholelithiasis. Patient was admitted for further management of symptoms. His hemoglobin was 6.7. He was transfused 1 unit PRBC. Repeat hemoglobin was 7.3 and 8.1. Patient denies any changes in his bowel movements and there was no active signs of bleeding noted. He underwent paracentesis with 5L of fluid removal. Initial lactic acid of 4.6 trended down to within normal limits. Patient was seen and examined. No acute events overnight. Patient does report abdominal pain, generalized right greater than left, significantly improved from admission. Patient is advised to refrain from drinking alcohol. He is advised to follow-up with his PCP within 1-2 days of discharge. He is advised to follow-up with gastroenterology within 1 week of discharge. Patient verbalized understanding of the plan. Pertinent studies include CTAP, chest x-ray Pertinent procedures include paracentesis General: non toxic, lethargic, appears at stated age Derm: warm, dry Head: atraumatic, normocephalic, symmetric Eyes: EOMI, no lid lag, icteric sclera Mouth: no lip lesion, mucus membranes moist Cardiovascular: Normal S1-S2, no murmur, positive posterior tibial pulse bilateral, Lungs: CTA bilateral, no rhonchi, no rales , no accessory muscle use Abdominal: Distended decreased from admission, tenderness to palpation in all 4 quadrants without rebound, no guarding, no appreciable organomegaly Ext: no gross muscle atrophy, no edema, no contractures Neuro: no focal neuro deficits Psych: Alert, oriented, appropriate affect Discharge diagnosis #Decompensated alcoholic cirrhosis #Lactic acidosis #Hypokalemia #Alcohol intoxication with impending withdrawal #Macrocytic anemia with normocytic anemia This complex discharge took 35 minutes to complete. Patient Condition at Discharge: Stable Plan - Discharge Summary Discharge Rx Participant: No New Discharge Prescriptions: New Spironolactone [Aldactone] 100 mg PO DAILY #120 tab Furosemide [Lasix] 40 mg PO DAILY #30 tab Continue Thiamine [Vitamin B-1] 100 mg PO DAILY #30 tablet Folic Acid 1 mg PO DAILY Magnesium Oxide [Mag-Ox] 400 mg PO DAILY #30 tablet Discontinued Potassium Gluconate [Potassium Gluconate ER] 99 mg PO DAILY Discharge Medication List Magnesium Oxide [Mag-Ox] 400 mg PO DAILY #30 tablet 05/29/21 [Rx] Thiamine [Vitamin B-1] 100 mg PO DAILY #30 tablet 05/29/21 [Rx] Folic Acid 1 mg PO DAILY 08/10/21 [History] Furosemide [Lasix] 40 mg PO DAILY #30 tab 05/04/22 [Rx] Spironolactone [Aldactone] 100 mg PO DAILY #120 tab 05/04/22 [Rx] Follow up Appointment(s)/Referral(s): Gina Negron MD [STAFF PHYSICIAN] - 1 Week [facility],Clinic [Primary Care Provider] - 1-2 days Patient Instructions/Handouts: Ascites (DC) Activity/Diet/Wound Care/Special Instructions: Diet: Low salt FU PCP within 1-2 days of DC. FU GI Dr. Tumma within 1 week of discharge. Take all medications as advised. Discharge Disposition: HOME SELF-CARE
== END 2022-05-04 12:03 | disposition home or self-care (01) | DRG 433 ==
LOC: EC 13:18 → 4SSUR 18:11
PROVIDERS: ADMIT Family Medicine; ATTEND Family Medicine
PROC: 0W9G3ZZ Drainage of Peritoneal Cavity, Percutaneous Approach (ICD-10-PCS; principal; 2022-05-01)
PROC: 30233N1 Transfusion of Nonautologous Red Blood Cells into Peripheral Vein, Percutaneous Approach (ICD-10-PCS; 2022-05-02)
DX: K70.31 Alcoholic cirrhosis of liver with ascites (principal); E87.20 Acidosis, unspecified; K76.6 Portal hypertension; K80.10 Calculus of gallbladder with chronic cholecystitis without obstruction; F10.239 Alcohol dependence with withdrawal, unspecified; D69.59 Other secondary thrombocytopenia; F10.229 Alcohol dependence with intoxication, unspecified; Z20.822 Contact with and (suspected) exposure to COVID-19; Z28.310 Unvaccinated for COVID-19; D53.9 Nutritional anemia, unspecified; I10 Essential (primary) hypertension; E78.5 Hyperlipidemia, unspecified; F43.10 Post-traumatic stress disorder, unspecified; F32.A Depression, unspecified; E87.6 Hypokalemia; Z91.199 Patient's noncompliance with other medical treatment and regimen due to unspecified reason; Y90.8 Blood alcohol level of 240 mg/100 ml or more; F17.210 Nicotine dependence, cigarettes, uncomplicated; Z71.6 Tobacco abuse counseling; Z79.899 Other long term (current) drug therapy; Z71.41 Alcohol abuse counseling and surveillance of alcoholic; Z88.6 Allergy status to analgesic agent
CPT/HCPCS: 36415; 49083; 71046; 74176; 80048; 80053; 80320; 81001; 82150; 82607; 82728; 82746; 83540; 83550; 83605; 83690; 83735; 84484; 85025; 85027; 85610; 86850; 86900; 86901; 86920; 87636; 93005; 96374; 99285

== ENCOUNTER 2022-05-05 | Emergency (ER) | payer OTHER ==
[2022-05-05 00:27] VITALS: TEMP 98.5
[2022-05-05 01:03] LABS: Anisocytosis Slight; Basophils % (A) 1 %; Eosinophils # (A) 0.1 k/uL (0-0.7); Eosinophils % (A) 2 %; HCT 25.2 % (39.0-53.0); HGB 8.2 gm/dL (13.0-17.5); Hypochromasia Moderate; Lymphocytes # (A) 1.2 k/uL (1.0-4.8); Lymphocytes % (A) 22 %; MCH 32.1 pg (25.0-35.0); MCHC 32.4 g/dL (31.0-37.0); Macrocytosis Slight; Monocytes # (A) 0.3 k/uL (0-1.0); Monocytes % (A) 5 %; Neutrophils # (A) 3.9 k/uL (1.3-7.7); Neutrophils % (A) 68 %; Poikilocytosis Slight; RBC 2.55 m/uL (4.30-5.90); RDW 16.2 % (11.5-15.5); WBC 5.8 k/uL (3.8-10.6)
[2022-05-05 01:05] LABS: Platelet Count 71 k/uL (150-450)
[2022-05-05 01:16] LABS: INR 1.6 (<1.2); Partial Thromboplastin Time 28.4 sec (22.0-30.0); Prothrombin Time 16.3 sec (9.0-12.0)
[2022-05-05 01:17] LABS: ALT 26 U/L (4-49); AST 44 U/L (17-59); African American GFR (CKD) >90 (>60 ml/min/1.73 sqM); Albumin 3.2 g/dL (3.5-5.0); Alkaline Phosphatase 94 U/L (38-126); Anion Gap 9 mmol/L; Blood Urea Nitrogen 11 mg/dL (9-20); Calcium 7.9 mg/dL (8.4-10.2); Carbon Dioxide 18 mmol/L (22-30); Chloride 108 mmol/L (98-107); Glucose 101 mg/dL (74-99); Magnesium 1.6 mg/dL (1.6-2.3); Non-African American GFR(CKD) >90 (>60 ml/min/1.73 sqM); Potassium 3.2 mmol/L (3.5-5.1); Sodium 135 mmol/L (137-145); Total Bilirubin 2.8 mg/dL (0.2-1.3); Total Protein 6.4 g/dL (6.3-8.2)
--- NOTE | 2022-05-05 01:31 | ED ---
General Adult HPI - General Chief complaint: Anxiety Stated complaint: Anxiety Time Seen by Provider: 05/05/22 00:10 Source: patient Mode of arrival: ambulatory Limitations: no limitations - History of Present Illness Initial comments: This is a 42-year-old male with a past medical history including ascites and cirrhosis presents emergency department via EMS for "I'm just so anxious." The patient was recently discharged to the hospital earlier in the evening and stated that he went home and was having anxiety. The patient stated "I just understand I was walking around and talking to by mom but nothing helps." The patient denied any shortness of breath or any difficulty in breathing and denied any acute pain. The patient stated that he was having anxiety and hadn't taken any medications and just needed something. The patient denied any other acute pain or complaints at this time. - Related Data Home Medications Medication Instructions Recorded Confirmed Folic Acid 1 mg PO DAILY 08/10/21 05/01/22 Previous Rx's Medication Instructions Recorded Magnesium Oxide [Mag-Ox] 400 mg PO DAILY #30 tablet 05/29/21 Thiamine [Vitamin B-1] 100 mg PO DAILY #30 tablet 05/29/21 Furosemide [Lasix] 40 mg PO DAILY #30 tab 05/04/22 Spironolactone [Aldactone] 100 mg PO DAILY #120 tab 05/04/22 Allergies Allergy/AdvReac Type Severity Reaction Status Date / Time ibuprofen [From Motrin] Allergy Swelling Verified 05/01/22 16:51 Lips naproxen Allergy Swelling Verified 05/01/22 16:51 Lips Review of Systems ROS Statement: Those systems with pertinent positive or pertinent negative responses have been documented in the HPI. ROS Other: All systems not noted in ROS Statement are negative. Past Medical History Past Medical History: Hyperlipidemia, Hypertension, Liver Disease, Pneumonia Additional Past Medical History / Comment(s): Alcoholism, past withdrawals with tremors/diaphoresis, elevated LFTs, alcoholic liver cirrhosis, ascities with paracentesis, severe sepsis/aspiration pneumonia, occasional upper back pain. History of Any Multi-Drug Resistant Organisms: None Reported Past Surgical History: No Surgical Hx Reported Additional Past Surgical History / Comment(s): Pt states he has never had surgery Past Anesthesia/Blood Transfusion Reactions: Unable to Obtain Additional Past Anesthesia/Blood Transfusion Reaction / Comment(s): Pt states he has never had surgery. 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 Smoking Status: Current every day smoker Past Alcohol Use History: Occasional Additional Past Alcohol Use History / Comment(s): Pt started smoking in 2000 and a pack will last 3 days. Pt has hx of alcoholism. He states he quit drinking in August 2021 but recently went back to drinking, he drank 11/1821. Past Drug Use History: None Reported - Past Family History Mother Family Medical History: Cancer Additional Family Medical History / Comment(s): Mother has colon cancer. Father History Unknown: Yes Additional Family Medical History / Comment(s): All pt knows about his father is that he is . General Exam Limitations: no limitations General appearance: alert, in no apparent distress Head exam: Present: atraumatic, normocephalic, normal inspection Eye exam: Present: normal appearance, PERRL Pupils: Present: normal accommodation ENT exam: Present: normal exam, normal oropharynx, mucous membranes moist Neck exam: Present: normal inspection, full ROM Respiratory exam: Present: normal lung sounds bilaterally Cardiovascular Exam: Present: regular rate, normal rhythm, normal heart sounds GI/Abdominal exam: Present: soft, normal bowel sounds Extremities exam: Present: normal inspection, full ROM Back exam: Present: normal inspection, full ROM Neurological exam: Present: alert, oriented X3, CN II-XII intact Psychiatric exam: Present: normal affect, normal mood, anxious Skin exam: Present: warm, dry Course Vital Signs 05/05/22 05/05/22 05/05/22 00:18 00:30 02:29 Temperature 98.5 F Pulse Rate 102 H 90 90 Respiratory 20 18 Rate Blood Pressure 128/100 128/100 145/55 O2 Sat by Pulse 99 100 99 Oximetry EKG Findings - EKG Comments: EKG Findings:: An EKG was obtained and was interpreted by myself showing a rate of 81, WA interval of 104, QRS duration 110 and QTC of 499. This EKG showed a normal sinus rhythm without ST segment elevation or depression noted. Medical Decision Making - Medical Decision Making Was pt. sent in by a medical professional or institution (, PA, [employer], urgent care, hospital, or fci...) When possible be specific @ -No Did you speak to anyone other than the patient for history (EMS, parent, family, police, friend...)? What history was obtained from this source @ -No Did you review nursing and triage notes (agree or disagree)? Why? @ -I reviewed and agree with nursing and triage notes Were old charts reviewed (outside hosp., previous admission, EMS record, old EKG, old radiological studies, urgent care reports/EKG's, fci records)? Report findings @ -Yes, previous admission and discharge summary was reviewed Differential Diagnosis (chest pain, altered mental status, abdominal pain women, abdominal pain men, vaginal bleeding, weakness, fever, dyspnea, syncope, headache, dizziness, GI bleed, back pain, seizure, CVA, palpatations, mental health)? @ -Pleural effusion, ACS, anxiety reaction EKG interpreted by me (3pts min.). @ -As above X-rays interpreted by me (1pt min.). @ -Chest x-ray was obtained and was interpreted by myself showing no acute proc ess. CT interpreted by me (1pt min.). @ -None done U/S interpreted by me (1pt. min.). @ -None done What testing was considered but not performed or refused? (CT, X-rays, U/S, labs)? Why? @ -None What meds were considered but not given or refused? Why? @ -None Did you discuss the management of the patient with other professionals (professionals i.e. , PA, [employer], lab, RT, psych nurse, oncology social work, military lawyer, teacher, child support officer, showcase trimmer)? Give summary @ -No Was smoking cessation discussed for >3mins.? @ -Yes Was critical care preformed (if so, how long)? @ -No Were there social determinants of health that impacted care today? How? (Homelessness, low income, unemployed, alcoholism, drug addiction, delaney sportation, low edu. Level, literacy, decrease access to med. care, care home, rehab)? @ -No Was there de-escalation of care discussed even if they declined (Discuss DNR or withdrawal of care, Hospice)? DNR status @ -No What co-morbidities impacted this encounter? (DM, HTN, Smoking, COPD, CAD, Cancer, CVA, ARF, Chemo, Hep., AIDS, mental health diagnosis, sleep apnea, morbid obesity)? @ -Liver failure, cirrhosis Was patient admitted / discharged? Hospital course, mention meds given and r oute, prescriptions, significant lab abnormalities, going to OR and other pertinent info. @ -The patient was seen and evaluated emergency department. Physical exam, the patient was resting in bed with normal vital signs. I did stand outside the room multiple times during his stay in the emergency department and he had normal vital signs without any signs of anxiety. When I went into the room, the patient started to hyperventilate and stated that "I'm just having anxiety and I don't know what's going on." All of the patient's workup was within normal limits and negative and are actually improved from his workup while being in the hospital. The patient was told of this but then stated "I just need sending for anxiety and they didn't prescribe it to me on the floor." I stated to him that I would not be giving a prescription for anxiety medications in the emergency department he would need to follow-up with the emergency department. The patient continued to demand anxiety medications however I continued to state that this would not be performed or given in the emergency department. The patient was deemed stable for discharge and was discharged to follow-up with his primary care physician for further workup and evaluation and for evaluation of potential anxiety medications there. He was also agreeable to this and the patient was discharged home in stable condition. Undiagnosed new problem with uncertain prognosis? @ -No Drug Therapy requiring intensive monitoring for toxicity (Heparin, Nitro, In sulin, Cardizem)? @ -No Were any procedures done? @ -No Diagnosis/symptom? @ -Anxiety reaction, drug seeking behavior Acute, or Chronic, or Acute on Chronic? @ -Acute Uncomplicated (without systemic symptoms) or Complicated (systemic symptoms)? @ -Uncomplicated Side effects of treatment? @ -No Exacerbation, Progression, or Severe Exacerbation? @ -No Poses a threat to life or bodily function? How? (Chest pain, [place], [place], pneumonia, PE, COPD, DKA, ARF, appy, cholecystitis, CVA, Diverticulitis, Homicidal, Suicidal, threat to staff... and all critical care pts) @ -No - Lab Data Result diagrams: 05/05/22 00:55 05/05/22 00:55 Lab Results 05/05/22 05/05/22 05/05/22 Range/Units 00:55 00:55 00:55 WBC 5.8 (3.8-10.6) k/uL RBC 2.55 L (4.30-5.90) m/uL Hgb 8.2 L (13.0-17.5) gm/dL Hct 25.2 L (39.0-53.0) % MCV 99.0 (80.0-100.0) fL MCH 32.1 (25.0-35.0) pg MCHC 32.4 (31.0-37.0) g/dL RDW 16.2 H (11.5-15.5) % Plt Count 71 L (150-450) k/uL MPV 10.0 Neutrophils % 68 % Lymphocytes % 22 % Monocytes % 5 % Eosinophils % 2 % Basophils % 1 % Neutrophils # 3.9 (1.3-7.7) k/uL Lymphocytes # 1.2 (1.0-4.8) k/uL Monocytes # 0.3 (0-1.0) k/uL Eosinophils # 0.1 (0-0.7) k/uL Basophils # 0.0 (0-0.2) k/uL Hypochromasia Moderate Poikilocytosis Slight Anisocytosis Slight Macrocytosis Slight PT 16.3 H (9.0-12.0) sec INR 1.6 H (<1.2) APTT 28.4 (22.0-30.0) sec Sodium 135 L (137-145) mmol/L Potassium 3.2 L (3.5-5.1) mmol/L Chloride 108 H (98-107) mmol/L Carbon Dioxide 18 L (22-30) mmol/L Anion Gap 9 mmol/L BUN 11 (9-20) mg/dL Creatinine 0.68 (0.66-1.25) mg/dL Est GFR (CKD-EPI)AfAm >90 (>60 ml/min/1.73 sqM) Est GFR (CKD-EPI)NonAf >90 (>60 ml/min/1.73 sqM) Glucose 101 H (74-99) mg/dL Calcium 7.9 L (8.4-10.2) mg/dL Magnesium 1.6 (1.6-2.3) mg/dL Total Bilirubin 2.8 H (0.2-1.3) mg/dL AST 44 (17-59) U/L ALT 26 (4-49) U/L Alkaline Phosphatase 94 (38-126) U/L Troponin I (0.000-0.034) ng/mL NT-Pro-B Natriuret Pep pg/mL Total Protein 6.4 (6.3-8.2) g/dL Albumin 3.2 L (3.5-5.0) g/dL 05/05/22 05/05/22 Range/Units 00:55 00:55 WBC (3.8-10.6) k/uL RBC (4.30-5.90) m/uL Hgb (13.0-17.5) gm/dL Hct (39.0-53.0) % MCV (80.0-100.0) fL MCH (25.0-35.0) pg MCHC (31.0-37.0) g/dL RDW (11.5-15.5) % Plt Count (150-450) k/uL MPV Neutrophils % % Lymphocytes % % Monocytes % % Eosinophils % % Basophils % % Neutrophils # (1.3-7.7) k/uL Lymphocytes # (1.0-4.8) k/uL Monocytes # (0-1.0) k/uL Eosinophils # (0-0.7) k/uL Basophils # (0-0.2) k/uL Hypochromasia Poikilocytosis Anisocytosis Macrocytosis PT (9.0-12.0) sec INR (<1.2) APTT (22.0-30.0) sec Sodium (137-145) mmol/L Potassium (3.5-5.1) mmol/L Chloride (98-107) mmol/L Carbon Dioxide (22-30) mmol/L Anion Gap mmol/L BUN (9-20) mg/dL Creatinine (0.66-1.25) mg/dL Est GFR (CKD-EPI)AfAm (>60 ml/min/1.73 sqM) Est GFR (CKD-EPI)NonAf (>60 ml/min/1.73 sqM) Glucose (74-99) mg/dL Calcium (8.4-10.2) mg/dL Magnesium (1.6-2.3) mg/dL Total Bilirubin (0.2-1.3) mg/dL AST (17-59) U/L ALT (4-49) U/L Alkaline Phosphatase (38-126) U/L Troponin I <0.012 (0.000-0.034) ng/mL NT-Pro-B Natriuret Pep 47 pg/mL Total Protein (6.3-8.2) g/dL Albumin (3.5-5.0) g/dL Disposition Clinical Impression: Anxiety Disposition: HOME SELF-CARE Condition: Stable Instructions (If sedation given, give patient instructions): Generalized Anxiety Disorder (ED) Is patient prescribed a controlled substance at d/c from ED?: No Referrals: [facility],Clinic [Primary Care Provider] - 1-2 days Time of Disposition: 02:00
--- NOTE | 2022-05-05 01:40 | XR ---
EXAMINATION TYPE: XR chest 2V DATE OF EXAM: 05/05/2022 COMPARISON: 05/01/2022 HISTORY: Pain TECHNIQUE: 2 views FINDINGS: There is mild linear density left lung base. Heart and mediastinum are normal. There are ch est leads. There are no hilar masses. Bony thorax is intact. IMPRESSION: There is mild subsegmental atelectasis left lung base which is improved compared to old e xam. Normal heart.
[2022-05-05 02:29] VITALS: PULSE 90
[2022-05-05 02:30] VITALS: BP 145/55; RESP 18
== END 2022-05-05 02:49 | disposition home or self-care (01) ==
LOC: EC
DX: F41.9 Anxiety disorder, unspecified (principal); F32.A Depression, unspecified; I10 Essential (primary) hypertension; F17.200 Nicotine dependence, unspecified, uncomplicated; Z88.6 Allergy status to analgesic agent; Z88.8 Allergy status to other drugs, medicaments and biological substances
CPT/HCPCS: 36415; 71046; 80053; 83735; 83880; 84484; 85025; 85610; 85730; 93005; 99284

== ENCOUNTER 2022-07-29 03:23 | Inpatient (IN) | payer OTHER ==
[2022-07-29] MEDS ORDERED: fentaNYL (PF) 50 MCG/ML 2 ML AMP IVP STA (03:28)
[2022-07-29] MEDS ORDERED: SODIUM CHLORIDE 0.9% 1,000 ML IV ONE (03:28)
[2022-07-29 04:15] LABS: ALT 27 U/L (4-49); AST 50 U/L (17-59); African American GFR (CKD) >90 (>60 ml/min/1.73 sqM); Albumin 2.7 g/dL (3.5-5.0); Alkaline Phosphatase 100 U/L (38-126); Anion Gap 9 mmol/L; Blood Urea Nitrogen 12 mg/dL (9-20); Calcium 7.1 mg/dL (8.4-10.2); Carbon Dioxide 19 mmol/L (22-30); Chloride 103 mmol/L (98-107); Glucose 118 mg/dL (74-99); Lipase 45 U/L (23-300); Magnesium 1.7 mg/dL (1.6-2.3); Non-African American GFR(CKD) >90 (>60 ml/min/1.73 sqM); Potassium 3.3 mmol/L (3.5-5.1); Sodium 131 mmol/L (137-145); Total Protein 6.6 g/dL (6.3-8.2)
[2022-07-29 04:34] LABS: Anisocytosis Slight; Basophils % (A) 0 %; Eosinophils % (A) 1 %; HCT 30.6 % (39.0-53.0); HGB 10.1 gm/dL (13.0-17.5); Lymphocytes # (A) 1.3 k/uL (1.0-4.8); Lymphocytes % (A) 22 %; MCH 28.8 pg (25.0-35.0); MCHC 33.1 g/dL (31.0-37.0); MCV 87.1 fL (80.0-100.0); Mean Platelet Volume 10.3; Monocytes # (A) 0.4 k/uL (0-1.0); Monocytes % (A) 6 %; Neutrophils # (A) 4.2 k/uL (1.3-7.7); Neutrophils % (A) 69 %; RBC 3.51 m/uL (4.30-5.90); WBC 6.1 k/uL (3.8-10.6)
[2022-07-29 04:39] LABS: INR 1.8 (<1.2); Partial Thromboplastin Time 32.9 sec (22.0-30.0); Prothrombin Time 17.4 sec (9.0-12.0)
[2022-07-29 04:56] LABS: Poikilocytosis (M) Present
[2022-07-29 04:57] LABS: Platelet Count 93 k/uL (150-450)
--- NOTE | 2022-07-29 05:34 | CT ---
EXAMINATION TYPE: CT abdomen pelvis w con DATE OF EXAM: 07/29/2022 COMPARISON: CT abdomen and pelvis May 01, 2022 HISTORY: Distention and swelling. Pain. CT DLP: 75.6 mGycm, Automated Exposure Control for Dose Reduction was Utilized. CONTRAST: CT scan of the abdomen and pelvis is performed without oral and with IV Contrast, patient injected wi th 100 mL of Isovue 300. FINDINGS: LUNG BASES: Mild bibasilar linear atelectasis. Partial visualization of bilateral gynecomastia. LIVER/GB: Small size liver with lobulated nodular contour redemonstrated. Numerous tiny dependent sto kevin in gallbladder. PANCREAS: No significant abnormality is seen. SPLEEN: Mild spinal likely a 14.6 cm long axis coronal image 109 similar to prior. ADRENALS: No significant abnormality is seen. KIDNEYS: No significant abnormality is seen. BOWEL: No significant abnormality is seen. PROSTATE/SEMINAL VESICLES: No gross abnormality seen. LYMPH NODES: No greater than 1cm abdominal or pelvic lymph nodes are appreciated. OSSEOUS STRUCTURES: No significant abnormality is seen. OTHER: Massive intra-abdominal ascites even more prominent from prior. Moderate overlying subcutaneou s edema. IMPRESSION: Severe intra-abdominal ascites even more prominent from prior. Underlying cirrhosis redem onstrated. No new findings otherwise.
[2022-07-29] MEDS ORDERED: NALOXONE 0.4 MG/ML 1 ML VIAL IV PRN (06:42)
--- NOTE | 2022-07-29 06:42 | ED ---
General Adult HPI - General Chief complaint: GI Bleed Stated complaint: ABD pain Time Seen by Provider: 07/29/22 03:25 Source: EMS Mode of arrival: EMS - History of Present Illness Initial comments: This is a 42-year-old male with a past medical history including liver cirrhosis and ascites presents emergency department via EMS for vomiting blood. The patient stated that he had worsening abdominal distention over the last several weeks and earlier this evening had an episode where he vomited bright blood approximate 100 mL. The patient stated that he had continued nausea and vomiting however denied any acute abdominal pain. The patient stated he has never had any episodes of vomiting blood and has never had a diagnosis of esophageal varices. The patient on arrival denied any other acute pain and did state the last time he had his abdominal ascites drained was in April. The patient had not followed up with any other physician since that time. The patient denied any fevers and chills. - Related Data Home Medications Medication Instructions Recorded Confirmed Folic Acid 1 mg PO DAILY 08/10/21 05/01/22 Previous Rx's Medication Instructions Recorded Magnesium Oxide [Mag-Ox] 400 mg PO DAILY #30 tablet 05/29/21 Thiamine [Vitamin B-1] 100 mg PO DAILY #30 tablet 05/29/21 Furosemide [Lasix] 40 mg PO DAILY #30 tab 05/04/22 Spironolactone [Aldactone] 100 mg PO DAILY #120 tab 05/04/22 Allergies Allergy/AdvReac Type Severity Reaction Status Date / Time ibuprofen [From Motrin] Allergy Swelling Verified 05/01/22 16:51 Lips naproxen Allergy Swelling Verified 05/01/22 16:51 Lips Review of Systems ROS Statement: Those systems with pertinent positive or pertinent negative responses have been documented in the HPI. ROS Other: All systems not noted in ROS Statement are negative. Past Medical History Past Medical History: Hyperlipidemia, Hypertension, Liver Disease, Pneumonia Additional Past Medical History / Comment(s): Alcoholism, past withdrawals with tremors/diaphoresis, elevated LFTs, alcoholic liver cirrhosis, ascities with paracentesis, severe sepsis/aspiration pneumonia, occasional upper back pain. History of Any Multi-Drug Resistant Organisms: None Reported Past Surgical History: No Surgical Hx Reported Additional Past Surgical History / Comment(s): Pt states he has never had surgery Past Anesthesia/Blood Transfusion Reactions: Unable to Obtain Additional Past Anesthesia/Blood Transfusion Reaction / Comment(s): Pt states he has never had surgery. 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 Smoking Status: Current every day smoker Past Alcohol Use History: Occasional Additional Past Alcohol Use History / Comment(s): Pt started smoking in 2000 and a pack will last 3 days. Pt has hx of alcoholism. He states he quit drinking in August 2021 but recently went back to drinking, he drank 11/1821. Past Drug Use History: None Reported - Past Family History Mother Family Medical History: Cancer Additional Family Medical History / Comment(s): Mother has colon cancer. Father History Unknown: Yes Additional Family Medical History / Comment(s): All pt knows about his father is that he is . General Exam Limitations: no limitations General appearance: alert, in distress (In mild distress secondary to abdominal pain) Head exam: Present: atraumatic, normocephalic, normal inspection Eye exam: Present: normal appearance, PERRL Pupils: Present: normal accommodation ENT exam: Present: normal exam, normal oropharynx, mucous membranes moist Neck exam: Present: normal inspection, full ROM Respiratory exam: Present: normal lung sounds bilaterally Cardiovascular Exam: Present: regular rate, normal rhythm, normal heart sounds GI/Abdominal exam: Present: distended (Significant abdominal distention with pos itive fluid wave) Extremities exam: Present: normal inspection, full ROM, pedal edema Back exam: Present: normal inspection, full ROM Neurological exam: Present: alert, oriented X3, CN II-XII intact Psychiatric exam: Present: normal affect, normal mood Skin exam: Present: warm, dry Course Vital Signs 07/29/22 07/29/22 03:35 04:57 Temperature 98.9 F Pulse Rate 98 86 Respiratory 18 18 Rate Blood Pressure 101/88 95/72 O2 Sat by Pulse 95 95 Oximetry EKG Findings - EKG Comments: EKG Findings:: An EKG was obtained and was interpreted by myself showing a rate of 101, HI interval of 123, QRS duration of 105 and QTC of 403. This EKG showed a sinus tachycardia without ST segment elevation or depression noted. Medical Decision Making - Medical Decision Making Was pt. sent in by a medical professional or institution (, PA, FULLING MILL OPERATOR, urgent care, hospital, or alf...) When possible be specific @ -No Did you speak to anyone other than the patient for history (EMS, parent, family, police, friend...)? What history was obtained from this source @ -Yes, EMS Did you review nursing and triage notes (agree or disagree)? Why? @ -I reviewed and agree with nursing and triage notes Were old charts reviewed (outside hosp., previous admission, EMS record, old EKG, old radiological studies, urgent care reports/EKG's, alf records)? Report findings @ -No old charts were reviewed Differential Diagnosis (chest pain, altered mental status, abdominal pain women, abdominal pain men, vaginal bleeding, weakness, fever, dyspnea, syncope, headache, dizziness, GI bleed, back pain, seizure, CVA, palpatations, mental health)? @ -SBP, abdominal ascites, liver cirrhosis EKG interpreted by me (3pts min.). @ -As above X-rays interpreted by me (1pt min.). @ -None done CT interpreted by me (1pt min.). @ -CT abdomen and pelvis with IV contrast was obtained and was interpreted by myself showing severe intra-abdominal ascites more prominent from previous. Underlying cirrhosis was redemonstrated. There is no other new findings. U/S interpreted by me (1pt. min.). @ -None done What testing was considered but not performed or refused? (CT, X-rays, U/S, labs)? Why? @ -None What meds were considered but not given or refused? Why? @ -None Did you discuss the management of the patient with other professionals (professionals i.e. , PA, FULLING MILL OPERATOR, lab, RT, psych nurse, social service assistant, face cleaner, teacher, attendance officer, porter sample case)? Give summary @ -Yes, admitting physician Was smoking cessation discussed for >3mins.? @ -No Was critical care preformed (if so, how long)? @ -No Were there social determinants of health that impacted care today? How? (Homelessness, low income, unemployed, alcoholism, drug addiction, transportation, low edu. Level, literacy, decrease access to med. care, snf, rehab)? @ -No Was there de-escalation of care discussed even if they declined (Discuss DNR or withdrawal of care, Hospice)? DNR status @ -No What co-morbidities impacted this encounter? (DM, HTN, Smoking, COPD, CAD, Cancer, CVA, ARF, Chemo, Hep., AIDS, mental health diagnosis, sleep apnea, morbid obesity)? @ -Liver cirrhosis with chronic abdominal ascites Was patient admitted / discharged? Hospital course, mention meds given and route, prescriptions, significant lab abnormalities, going to OR and other pertinent info. @ -The patient was seen and evaluated emergency department. Physical exam, the patient was resting in bed without any acute distress. The patient did have mild intermittent distress secondary to abdominal distention and ascites. Vital signs showed initial hypotension and the patient was given 1 L no sealing fluid. Laboratory workup was initiated and did show findings consistent with liver cirrhosis. The patient had significant abdominal ascites and due to this in the setting of continued abdominal pain, will be admitted for further workup and evaluation with gastroenterology consult as well as plans for interventional radiology to drain the fluid. The patient remained stable and was agreeable to this plan. The patient was admitted in stable condition. Undiagnosed new problem with uncertain prognosis? @ -No Drug Therapy requiring intensive monitoring for toxicity (Heparin, Nitro, Insulin, Cardizem)? @ -No Were any procedures done? @ -No Diagnosis/symptom? @ -Severe abdominal ascites Acute, or Chronic, or Acute on Chronic? @ -Acute on chronic Uncomplicated (without systemic symptoms) or Complicated (systemic symptoms)? @ -Complicated Side effects of treatment? @ -No Exacerbation, Progression, or Severe Exacerbation? @ -No Poses a threat to life or bodily function? How? (Chest pain, USA, MD, pneumonia, PE, COPD, DKA, ARF, appy, cholecystitis, CVA, Diverticulitis, Homicidal, Suicidal, threat to staff... and all critical care pts) @ -Yes, worsening ascites can cause continued permanent organ damage and possible . Diagnosis/symptom? @ -Hematemesis Acute, or Chronic, or Acute on Chronic? @ -Acute Uncomplicated (without systemic symptoms) or Complicated (systemic symptoms)? @ -Complicated Side effects of treatment? @ -none Exacerbation, Progression, or Severe Exacerbation] @ -no Poses a threat to life or bodily function? @ -no - Lab Data Result diagrams: 07/29/22 03:41 07/29/22 03:41 Lab Results 07/29/22 07/29/22 07/29/22 Range/Units 03:41 03:41 03:41 WBC 6.1 (3.8-10.6) k/uL RBC 3.51 L (4.30-5.90) m/uL Hgb 10.1 L (13.0-17.5) gm/dL Hct 30.6 L (39.0-53.0) % MCV 87.1 (80.0-100.0) fL MCH 28.8 (25.0-35.0) pg MCHC 33.1 (31.0-37.0) g/dL RDW 19.0 H (11.5-15.5) % Plt Count 93 L (150-450) k/uL MPV 10.3 Neutrophils % 69 % Lymphocytes % 22 % Monocytes % 6 % Eosinophils % 1 % Basophils % 0 % Neutrophils # 4.2 (1.3-7.7) k/uL Lymphocytes # 1.3 (1.0-4.8) k/uL Monocytes # 0.4 (0-1.0) k/uL Eosinophils # 0.0 (0-0.7) k/uL Basophils # 0.0 (0-0.2) k/uL Manual Slide Review Performed Poikilocytosis (manual Present Anisocytosis Slight PT (9.0-12.0) sec INR (<1.2) APTT (22.0-30.0) sec Sodium 131 L (137-145) mmol/L Potassium 3.3 L (3.5-5.1) mmol/L Chloride 103 (98-107) mmol/L Carbon Dioxide 19 L (22-30) mmol/L Anion Gap 9 mmol/L BUN 12 (9-20) mg/dL Creatinine 0.63 L (0.66-1.25) mg/dL Est GFR (CKD-EPI)AfAm >90 (>60 ml/min/1.73 sqM) Est GFR (CKD-EPI)NonAf >90 (>60 ml/min/1.73 sqM) Glucose 118 H (74-99) mg/dL Calcium 7.1 L (8.4-10.2) mg/dL Magnesium 1.7 (1.6-2.3) mg/dL Total Bilirubin 4.0 H (0.2-1.3) mg/dL AST 50 (17-59) U/L ALT 27 (4-49) U/L Alkaline Phosphatase 100 (38-126) U/L Troponin I <0.012 (0.000-0.034) ng/mL NT-Pro-B Natriuret Pep pg/mL Total Protein 6.6 (6.3-8.2) g/dL Albumin 2.7 L (3.5-5.0) g/dL Lipase 45 (23-300) U/L Blood Type Blood Type Recheck Bld Type Recheck Status Antibody Screen Spec Expiration Date 07/29/22 07/29/22 07/29/22 Range/Units 03:41 03:41 05:30 WBC (3.8-10.6) k/uL RBC (4.30-5.90) m/uL Hgb (13.0-17.5) gm/dL Hct (39.0-53.0) % MCV (80.0-100.0) fL MCH (25.0-35.0) pg MCHC (31.0-37.0) g/dL RDW (11.5-15.5) % Plt Count (150-450) k/uL MPV Neutrophils % % Lymphocytes % % Monocytes % % Eosinophils % % Basophils % % Neutrophils # (1.3-7.7) k/uL Lymphocytes # (1.0-4.8) k/uL Monocytes # (0-1.0) k/uL Eosinophils # (0-0.7) k/uL Basophils # (0-0.2) k/uL Manual Slide Review Poikilocytosis (manual Anisocytosis PT 17.4 H (9.0-12.0) sec INR 1.8 H (<1.2) APTT 32.9 H (22.0-30.0) sec Sodium (137-145) mmol/L Potassium (3.5-5.1) mmol/L Chloride (98-107) mmol/L Carbon Dioxide (22-30) mmol/L Anion Gap mmol/L BUN (9-20) mg/dL Creatinine (0.66-1.25) mg/dL Est GFR (CKD-EPI)AfAm (>60 ml/min/1.73 sqM) Est GFR (CKD-EPI)NonAf (>60 ml/min/1.73 sqM) Glucose (74-99) mg/dL Calcium (8.4-10.2) mg/dL Magnesium (1.6-2.3) mg/dL Total Bilirubin (0.2-1.3) mg/dL AST (17-59) U/L ALT (4-49) U/L Alkaline Phosphatase (38-126) U/L Troponin I (0.000-0.034) ng/mL NT-Pro-B Natriuret Pep 150 pg/mL Total Protein (6.3-8.2) g/dL Albumin (3.5-5.0) g/dL Lipase (23-300) U/L Blood Type A Positive Blood Type Recheck A Pos Bld Type Recheck Status No Antibody Screen NEGATIVE Spec Expiration Date 08/01/20222329 Disposition Clinical Impression: Ascites, Cirrhosis, Hematemesis Disposition: ADMITTED IP TO THIS [facility] Condition: Stable Is patient prescribed a controlled substance at d/c from ED?: No Referrals: [facility],Clinic [Primary Care Provider] - 1-2 days Time of Disposition: 05:00 Decision to Admit Reason: Admit from EC Decision Date: 07/29/22 Decision Time: 05:00
[2022-07-29] MEDS: PANTOPRAZOLE 40 MG/10 ML VIAL IVP SCH ×2 (09:30→21:21)
[2022-07-29] MEDS ORDERED: Potassium Replacement Protocol 1 EACH MISC MISCELLANE PRN (09:50)
[2022-07-29 10:24] LABS: Anisocytosis Slight; Basophils % (A) 0 %; Eosinophils % (A) 1 %; HCT 28.4 % (39.0-53.0); HGB 9.3 gm/dL (13.0-17.5); Lymphocytes # (A) 1.3 k/uL (1.0-4.8); Lymphocytes % (A) 22 %; MCH 29.1 pg (25.0-35.0); MCHC 32.7 g/dL (31.0-37.0); Mean Platelet Volume 9.9; Monocytes # (A) 0.6 k/uL (0-1.0); Monocytes % (A) 9 %; Neutrophils # (A) 3.9 k/uL (1.3-7.7); Neutrophils % (A) 65 %; RBC 3.19 m/uL (4.30-5.90); WBC 5.9 k/uL (3.8-10.6)
[2022-07-29 10:27] LABS: Platelet Count 91 k/uL (150-450)
--- NOTE | 2022-07-29 10:31 | P.HPIM ---
History of Present Illness H&P Date: 07/29/22 This is a 42-year-old male who presents to [facility] with sudden onset hematemesis. Past medical history includes liver cirrhosis with ascites and history of alcohol dependence (last drink was this past April 2022). Patient states that he had one episode of hematemesis at 2 AM this morning. As a result he came in for further evaluation and treatment. Patient's abdomen is overly distended. Patient's last paracentesis was this past April. Patient denies chest pain or shortness of breath. Patient admits to peripheral neuropathy. Patient further denies headache, nausea, vomiting, fever, chills, or diarrhea. Patient is resting in bed comfortably. Review of Systems A 14 point review systems was assessed patient was positive for those discussed in HPI Past Medical History Past Medical History: Hyperlipidemia, Hypertension, Liver Disease, Pneumonia Additional Past Medical History / Comment(s): Alcoholism, past withdrawals with tremors/diaphoresis, elevated LFTs, alcoholic liver cirrhosis, ascities with paracentesis, severe sepsis/aspiration pneumonia, occasional upper back pain. History of Any Multi-Drug Resistant Organisms: None Reported Past Surgical History: No Surgical Hx Reported Additional Past Surgical History / Comment(s): Pt states he has never had surgery Past Anesthesia/Blood Transfusion Reactions: Unable to Obtain Additional Past Anesthesia/Blood Transfusion Reaction / Comment(s): Pt states he has never had surgery. 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 Smoking Status: Current every day smoker Past Alcohol Use History: Occasional Additional Past Alcohol Use History / Comment(s): Pt started smoking in 2000 and a pack will last 3 days. Pt has hx of alcoholism. He states he quit drinking in August 2021 but recently went back to drinking, he drank 11/1821. Past Drug Use History: None Reported - Past Family History Mother Family Medical History: Cancer Additional Family Medical History / Comment(s): Mother has colon cancer. Father History Unknown: Yes Additional Family Medical History / Comment(s): All pt knows about his father is that he is . Medications and Allergies Home Medications Medication Instructions Recorded Confirmed Type Furosemide [Lasix] 40 mg PO DAILY #30 tab 05/04/22 07/29/22 Rx Spironolactone [Aldactone] 100 mg PO DAILY #120 tab 05/04/22 07/29/22 Rx Allergies Allergy/AdvReac Type Severity Reaction Status Date / Time ibuprofen [From Motrin] Allergy Swelling Verified 07/29/22 07:10 Lips naproxen Allergy Swelling Verified 07/29/22 07:10 Lips Physical Exam Osteopathic Statement: *. No significant issues noted on an osteopathic structural exam other than those noted in the History and Physical/Consult. Vitals: Vital Signs Temp Pulse Resp BP Pulse Ox 07/29/22 09:28 98.3 F 92 18 105/51 98 07/29/22 04:57 86 18 95/72 95 07/29/22 03:35 98.9 F 98 18 101/88 95 Intake and Output 07/28/22 07/29/22 07/29/22 22:59 06:59 14:59 Other: Weight 104.326 kg General: [non toxic], [no distress], [appears at stated age] Derm: [warm], [dry] Head: [atraumatic], [normocephalic], [symmetric] Eyes: [EOMI], [no lid lag], [anicteric sclera] Mouth: [no lip lesion], [mucus membranes moist] Cardiovascular: [S1S2 reg], [no murmur], [positive posterior tibial pulse bilateral], Lungs: [CTA bilateral], [no rhonchi, no rales] , [no accessory muscle use] Abdominal: [soft], [ nontender to palpation], [no guarding], [no appreciable organomegaly] overly distended Ext: [no gross muscle atrophy], [no edema], [no contractures] Neuro: [ CN II-XI grossly intact], [no focal neuro deficits] Psych: [Alert], [oriented], [appropriate affect] Results CBC & Chem 7: 07/29/22 03:41 07/29/22 03:41 Labs: Abnormal Lab Results - Last 24 Hours (Table) 07/29/22 07/29/22 07/29/22 Range/Units 03:41 03:41 03:41 RBC 3.51 L (4.30-5.90) m/uL Hgb 10.1 L (13.0-17.5) gm/dL Hct 30.6 L (39.0-53.0) % RDW 19.0 H (11.5-15.5) % Plt Count 93 L (150-450) k/uL PT 17.4 H (9.0-12.0) sec INR 1.8 H (<1.2) APTT 32.9 H (22.0-30.0) sec Sodium 131 L (137-145) mmol/L Potassium 3.3 L (3.5-5.1) mmol/L Carbon Dioxide 19 L (22-30) mmol/L Creatinine 0.63 L (0.66-1.25) mg/dL Glucose 118 H (74-99) mg/dL Calcium 7.1 L (8.4-10.2) mg/dL Total Bilirubin 4.0 H (0.2-1.3) mg/dL Albumin 2.7 L (3.5-5.0) g/dL Thrombosis Risk Factor Assmnt - DVT/VTE Prophylaxis DVT/VTE Prophylaxis: Mechanical Prophylaxis ordered Assessment and Plan Assessment: Assessment and plan 1. Hematemesis x 1 rule out upper GI bleed Protonix 40 mg IV push twice a day Monitor CBC every 8h Gastroenterology consult and EGD scheduled for this afternoon Vitals every 4 hours Telemetry 2. 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 Bicytopenia likely due to history of alcohol use Check iron levels vitamin B12 and folic acid 4. Hypokalemia Replaced Magnesium level at 1.7 magnesium sulfate 2 g IV piggyback times x 1 5. Hyperbilirubinemia secondary to #2 Gastroenterology following 6. GI DVT prophylaxis 7. A.m. labs 8. PT OT 9. Patient is a full code Disposition: Greater than 2 midnight stay with anticipation to go home with home care versus rehab Greater than 35 minutes spent coordinating care, counseling patient, and documenting. Time with Patient: Greater than 30
--- NOTE | 2022-07-29 11:44 | P.CONS ---
History of Present Illness - Reason for Consult Consult date: 07/29/22 Hematemesis, ascites Requesting physician: Shady Bullock - Chief Complaint Vomiting blood, abdominal distention - History of Present Illness Pleasant 42-year-old male who presented to the emergency department with complaints of abdominal pain/distention and vomiting blood 1 at 2 AM. He has a history of heavy alcohol abuse with cirrhosis of the liver. Patient was rec ently admitted and seen by gastroenterology for decompensated cirrhosis of liver with ascites in April of this year. He was started on spironolactone 100 mg daily and Lasix 40 mg daily. He has not followed up with gastroenterology as recommended. 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 He states he's had increased abdominal distention, he is not sick help due to having his son in surgical [facility] for the last 2 weeks duration. He states he is taking his diuretics daily. He is not on any lactulose. Has no history of a GI bleed. States he does believe that he had an upper endoscopy done and [facility] Asher in March, unsure of results. Has chronic anemia likely secondary to underlying liver disease. Last paracentesis was 05/02/2022 with 5 L removed. He currently denies any nausea or vomiting. He denies any shortness of breath or chest pain. Complaints of abdominal discomfort and distention. Denies any fevers or chills. He's been afebrile. States that his home his bowel movements have been normal brown but here he stated he had 2 bowel movements which he states was somewhat of a maroon color. Imaging CT abdomen pelvis with contrast report severe intra-abdominal ascites even more prominent from prior. Underlying cirrhosis redemonstrated. No new findings otherwise. Labs WBC 5.9 hemoglobin 9.3 hematocrit 28 platelet count 91,000 INR 1.8 sodium 131 potassium 3.3 BUN 12 creatinine 0.6 glucose 118 total bilirubin 4.0 AST 50 ALT 27 alkaline phosphatase 100 lipase 45, ammonia level pending Review of Systems REVIEW OF SYSTEMS: CARDIOPULMONARY: No chest pain or shortness of breath. Gastrointestinal: Abdominal discomfort with abdominal distention. Ascites. Hematemesis 1. Femara-colored stools 2. GENITOURINARY: No dysuria or hematuria. MUSCULOSKELETAL: Reports normal range of motion. SKIN: No rashes. No jaundice. Lower extremity edema. ENDOCRINE: No chills, fevers. No excessive weight gain or loss. No polydipsia or polyuria. PSYCHIATRIC: Unremarkable. NEUROLOGY: No change in mental status. Denies dizziness, headache. ENT: Vision unremarkable. CONSTITUTIONAL: No recent weight loss. No fever, chills, night sweats. Past Medical History Past Medical History: Hyperlipidemia, Hypertension, Liver Disease, Pneumonia Additional Past Medical History / Comment(s): Alcoholism, past withdrawals with tremors/diaphoresis, elevated LFTs, alcoholic liver cirrhosis, ascities with paracentesis, severe sepsis/aspiration pneumonia, occasional upper back pain. History of Any Multi-Drug Resistant Organisms: None Reported Past Surgical History: No Surgical Hx Reported Additional Past Surgical History / Comment(s): Pt states he has never had surgery Past Anesthesia/Blood Transfusion Reactions: Unable to Obtain Additional Past Anesthesia/Blood Transfusion Reaction / Comm: Pt states he has never had surgery. 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 Smoking Status: Current every day smoker Past Alcohol Use History: Abuse Additional Past Alcohol Use History / Comment(s): Pt started smoking in 2000 and a pack will last 3 days. Pt has hx of alcoholism. He states he quit drinking in Apr 2022 Past Drug Use History: None Reported - Past Family History Mother Family Medical History: Cancer Additional Family Medical History / Comment(s): Mother has colon cancer. Father History Unknown: Yes Additional Family Medical History / Comment(s): All pt knows about his father is that he is . Medications and Allergies Home Medications Medication Instructions Recorded Confirmed Type Furosemide [Lasix] 40 mg PO DAILY #30 tab 05/04/22 07/29/22 Rx Spironolactone [Aldactone] 100 mg PO DAILY #120 tab 05/04/22 07/29/22 Rx Allergies Allergy/AdvReac Type Severity Reaction Status Date / Time ibuprofen [From Motrin] Allergy Swelling Verified 07/29/22 07:10 Lips naproxen Allergy Swelling Verified 07/29/22 07:10 Lips Physical Exam Vitals: Vital Signs Temp Pulse Pulse Resp BP BP Pulse Ox 07/29/22 10:29 98.1 F 82 16 98/66 99 07/29/22 09:28 98.3 F 92 18 105/51 98 07/29/22 04:57 86 18 95/72 95 07/29/22 03:35 98.9 F 98 18 101/88 95 Intake and Output 07/28/22 07/29/22 07/29/22 22:59 06:59 14:59 Other: Weight 104.326 kg 104.326 kg General appearance: The patient is alert, oriented, appears in no acute distress. HET: Head is normocephalic and atraumatic. Conjunctiva pink. Sclera icteric. Neck: Supple without lymphadenopathy. Trachea midline. Heart: S1 S2. Regular rate and rhythm. Lungs: Clear to auscultation. Abdomen: Soft, tender to palpation with large amount of abdominal ascites. No guarding or rigidity. Skin: No rashes. Jaundice. Extremities: Normal skin color and turgor. Bilateral pedal edema. Neurological: No focal deficits. Alert and oriented x3. Results CBC & Chem 7: 07/29/22 09:24 07/29/22 03:41 Labs: Abnormal Lab Results - Last 24 Hours (Table) 07/29/22 07/29/22 07/29/22 Range/Units 03:41 03:41 03:41 RBC 3.51 L (4.30-5.90) m/uL Hgb 10.1 L (13.0-17.5) gm/dL Hct 30.6 L (39.0-53.0) % RDW 19.0 H (11.5-15.5) % Plt Count 93 L (150-450) k/uL PT 17.4 H (9.0-12.0) sec INR 1.8 H (<1.2) APTT 32.9 H (22.0-30.0) sec Sodium 131 L (137-145) mmol/L Potassium 3.3 L (3.5-5.1) mmol/L Carbon Dioxide 19 L (22-30) mmol/L Creatinine 0.63 L (0.66-1.25) mg/dL Glucose 118 H (74-99) mg/dL Calcium 7.1 L (8.4-10.2) mg/dL Total Bilirubin 4.0 H (0.2-1.3) mg/dL Albumin 2.7 L (3.5-5.0) g/dL 07/29/22 Range/Units 09:24 RBC 3.19 L (4.30-5.90) m/uL Hgb 9.3 L (13.0-17.5) gm/dL Hct 28.4 L (39.0-53.0) % RDW 19.0 H (11.5-15.5) % Plt Count 91 L (150-450) k/uL PT (9.0-12.0) sec INR (<1.2) APTT (22.0-30.0) sec Sodium (137-145) mmol/L Potassium (3.5-5.1) mmol/L Carbon Dioxide (22-30) mmol/L Creatinine (0.66-1.25) mg/dL Glucose (74-99) mg/dL Calcium (8.4-10.2) mg/dL Total Bilirubin (0.2-1.3) mg/dL Albumin (3.5-5.0) g/dL Assessment and Plan (1) Hematemesis Narrative/Plan: 42-year-old male with a long-standing history of alcoholic cirrhosis of the liver presented to the hospital after having an episode of hematemesis this morning around 2 AM. Denies any previous history of upper GI bleed or esophageal varices. However he does state that he believes he had EGD done in March 2022 at [facility] which records are not available at this time. Patient came in with a hemoglobin of 10.1 with a repeat 29.3. No further episodes of hematemesis however he did state to maroon colored stools. Unclear etiology at this time however the patient's history and to consider portal hypertension and esophageal varices. We will proceed with EGD this afternoon. Current Visit: Yes Status: Acute Code(s): K92.0 - HEMATEMESIS SNOMED Code(s): 0849858 (2) Alcoholic cirrhosis of liver with ascites Narrative/Plan: Interventional radiology consulted for Paracentesis. Continue current diuretics Current Visit: No Status: Acute Code(s): K70.31 - ALCOHOLIC CIRRHOSIS OF LIVER WITH ASCITES SNOMED Code(s): 600517616 (3) Anemia Narrative/Plan: Patient with a history of iron deficiency anemia as well as history of thrombocytopenia related to underlying liver disease. Will proceed with endoscopic evaluation. Current Visit: No Status: Acute Code(s): D64.9 - ANEMIA, UNSPECIFIED SNOMED Code(s): 700133938 Plan: 1. Continue symptomatic and supportive care 2. Keep nothing by mouth 3. Avoid NSAIDs 4. Protonix 40 mg daily 5. Patient scheduled for EGD today 6. Continue Lasix 40 mg daily and spironol actone 100 mg daily 6. Ammonia level ordered 7. Consult to interventional radiology for paracentesis 8. Continue with alcohol abstinence 9. Discussed with patient importance of follow-up with gastroenterology for liver disease and ongoing paracentesis. [facility] [place] Thank you for this consultation, we will continue to follow. Dr. Reinaldo Negron I agree with the dictator's note, documented as a scribe by Zuleyma Arriola.
[2022-07-29] MEDS: MORPHINE SULFATE 2 MG/ML SYRINGE IVP PRN ×3 (13:02→21:21)
[2022-07-29] MEDS: MAGNESIUM SULFATE-D5W PMX 1 GM in DEXTROSE/WATER 1 100ML.BAG IVPB SCH ×3 (13:03→17:26)
[2022-07-29] MEDS ORDERED: PROPOFOL 10 MG/ML 20 ML VIAL IV ONE (13:11)
[2022-07-29] MEDS ORDERED: LIDOCAINE 2% INJ 20 MG/ML (2 ML VIAL) ONE (13:11)
[2022-07-29] MEDS ORDERED: PHENYLEPHRINE-0.9% NACL SYG 1,000 MCG/10 ML SYRINGE ONE (13:11)
[2022-07-29] MEDS ORDERED: SODIUM CHLORIDE 0.9% 500 ML 500 ML IV ONE ×2 (13:15→14:06)
--- NOTE | 2022-07-29 13:53 | P.PCN ---
Date of Procedure: 07/29/22 Procedure(s) Performed: BRIEF HISTORY: Patient is a 42-year-old, pleasant, white male with history of alcoholic liver disease admitted to the hospital with acute upper GI bleed. He had an episode of hematemesis early this morning and subsequently came to the emergency room and had 2 episodes of black tarry stools. Hemoglobin is 9.4 g/dL. He scheduled for an upper endoscopy to evaluate further.. PROCEDURE PERFORMED: Esophagogastroduodenoscopy with esophageal variceal ligation PREOPERATIVE DIAGNOSIS: Acute upper GI bleed. IV sedation per anesthesia. PROCEDURE: After informed consent was obtained, the patient was brought into the endoscopy unit. IV sedation was administered by Anesthesia under continuous monitoring. Initially the Olympus GIF-140 video endoscope was inserted into the mouth. Esophagus intubated without any difficulty. It was gradually advanced into the stomach and duodenum and carefully examined. The bulb and the second part of the duodenum appeared normal. The scope at this time was withdrawn to the stomach, adequately insufflated with air, and upon careful examination, there was large amount of fresh blood noted in the stomach. At this time the scope was removed and a therapeutic upper endoscopy was passed from the mouth into the esophagus and into the stomach and thorough irrigation was performed and all the clots as well as old blood was suctioned out. Approximately 600 mL of fresh blood was aspirated. Following this the Olympus GF 190 video endoscope was inserted more esophagus intubated without any difficulty and was gradually advanced into the stomach. At this time there were no gastric varices identified. In fact there was no source of bleeding identified in the stomach. The scope was withdrawn to the esophagus and intermittent large mid and distal esophageal varices identified. However I could not identify the source of active variceal bleed but it appeared that esophageal varices the cause of bleeding. Hence at this time I proceeded with variceal ligation. The esophageal variceal ligation equipment was introduced the tip of the scope and esophagus intubated without any difficulty. 6 bands were deployed in the distal esophageal varices and the patient tolerated the procedure well. IMPRESSION: 1. Large amount of fresh blood noted in the fundus of the stomach 2. No evidence of gastric varices 3 Large mid and distal esophageal varices with multiple red keiry signs status post variceal ligation as described above RE/OMMENDATIONS: The findings of this examination were discussed with the patient. No family available. He'll be transferred to the intensive care unit. Continue NG suction. Start on IV Sandostatin drip as well as to use fresh frozen plasma. Monitor CBC every 6 hours and he'll be kept nothing by mouth.
--- NOTE | 2022-07-29 14:13 | P.PN ---
Progress Note - Text Progress Note Date: 07/29/22 Attempted to call patient's next of kin mother Almaz Benitez at the number listed in chart for update on procedure and patient's status. Number was not connected. Dr. Reinaldo Negron I agree with the dictator's note, documented as a scribe by Zuleyma Arriola.
[2022-07-29 14:18] LABS: Glucose,Whole Blood 118 mg/dL (70-110)
[2022-07-29] MEDS: OCTREOTIDE 500 MCG in SODIUM CHLORIDE 0.9% 250 ML IV SCH ×2 (14:26→23:40)
[2022-07-29] MEDS: POTASSIUM CHLORIDE 10 MEQ in WATER FOR INJECTION 1 100ML.BAG IVPB SCH ×4 (14:27→19:27)
--- NOTE | 2022-07-29 15:28 | P.CNPUL ---
History of Present Illness Consult date: 07/29/22 Requesting physician: Alena Apple Reason for consult: other ( upper GI bleeding) Chief complaint: Vomiting blood History of present illness: This is a 42-year-old male with previous history of alcoholism, history of cirrhosis of the liver, his last admission to the hospital with ascites and liver issues was back in April of this year. Patient was treated for his ascites with diuretics including Aldactone and Lasix. Has not had any further follow-up with gastroenterology since his last admission. Patient was followed up with his primary care physician at the [place] and he was set up to have paracentesis at the [facility] in [place]. Patient has been complaining of increased abdominal girth and increased abdominal fluid with distention, his last paracentesis was on 05/02/2022, and apparently at that time he had 5 L of fluid removed. In addition to his abdominal distention, patient was seen in the ER for vomiting blood. Before he arrived to the ER, he vomited apparently about 100 mL of blood, and he has been complaining of intermittent episodes of nausea and vomiting. Patient was never diagnosed as having esophageal varices in the past. However on admission his hemoglobin was noted to be 10.1, patient was also noted to have elevated INR of 1.8. Admitted to the floor after receiving 2 units of fresh was a plasma. Gastroenterology was consulted on this patient, and he underwent EGD by Dr. Keenan, mostly because of his initial complaint of hematemesis and 2 episodes of black tarry stools since admission. Patient was found to have significant amount of blood in the stomach, the amount was quite large, there was no evidence of gastric varices, but there was a large mid and distal esophageal varices with multiple red whale signs, patient underwent variceal ligation. Bleeding was basically controlled, patient was transferred to the ICU mostly because of the significant amount of blood noted during the EGD, and the fact that the patient went esophageal varices ligation. Patient will receive a unit of packed RBCs while in the ICU, and he was monitored closely. Hemoglobin now is 9.3, and another hemoglobin is pending in the next few hours. Patient denies drinking any alcohol since last April after his last admission. Review of Systems CARDIOPULMONARY: Negative, no shortness of breath no chest pain. Gastrointestinal: As noted in HPI mostly hematemesis and black tarry stools GENITOURINARY: No dysuria or hematuria. Increased abdominal distention and worsening ascites MUSCULOSKELETAL: Negative SKIN: No rashes. Negative ENDOCRINE: Negative PSYCHIATRIC: Negative NEUROLOGY: Negative ENT: Negative CONSTITUTIONAL: Negative Past Medical History Past Medical History: Hyperlipidemia, Hypertension, Liver Disease, Pneumonia Additional Past Medical History / Comment(s): Alcoholism, past withdrawals with tremors/diaphoresis, elevated LFTs, alcoholic liver cirrhosis, ascities with paracentesis, severe sepsis/aspiration pneumonia, occasional upper back pain. History of Any Multi-Drug Resistant Organisms: None Reported Past Surgical History: No Surgical Hx Reported Additional Past Surgical History / Comment(s): Pt states he has never had surgery Past Anesthesia/Blood Transfusion Reactions: Unable to Obtain Additional Past Anesthesia/Blood Transfusion Reaction / Comment(s): Pt states he has never had surgery. 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 Smoking Status: Current every day smoker Past Alcohol Use History: Abuse Additional Past Alcohol Use History / Comment(s): Pt started smoking in 2000 and a pack will last 3 days. Pt has hx of alcoholism. He states he quit drinking in Apr 2022 Past Drug Use History: None Reported - Past Family History Mother Family Medical History: Cancer Additional Family Medical History / Comment(s): Mother has colon cancer. Father History Unknown: Yes Additional Family Medical History / Comment(s): All pt knows about his father is that he is . Medications and Allergies Home Medications Medication Instructions Recorded Confirmed Type Furosemide [Lasix] 40 mg PO DAILY #30 tab 05/04/22 07/29/22 Rx Spironolactone [Aldactone] 100 mg PO DAILY #120 tab 05/04/22 07/29/22 Rx Allergies Allergy/AdvReac Type Severity Reaction Status Date / Time ibuprofen [From Motrin] Allergy Swelling Verified 07/29/22 07:10 Lips naproxen Allergy Swelling Verified 07/29/22 07:10 Lips Physical Exam Vitals: Vital Signs Temp Pulse Pulse Resp BP BP Pulse Ox 07/29/22 13:08 97.4 F L 101 H 20 103/72 97 07/29/22 10:29 98.1 F 82 16 98/66 99 07/29/22 09:28 98.3 F 92 18 105/51 98 07/29/22 04:57 86 18 95/72 95 07/29/22 03:35 98.9 F 98 18 101/88 95 Intake and Output 07/29/22 07/29/22 07/29/22 06:59 14:59 22:59 Intake Total 500 Balance 500 Intake: IV 500 Blood Product 0 Rc As-1 Unit 0 [id number] Other: Voiding Method Urinal # Voids 1 Weight 104.326 kg 104.326 kg Physical Exam: Revealed a 42-year-old male in no distress on room air Head: Atraumatic, normocephalic. HEENT:[Neck is supple.] [No neck masses.] [No thyromegaly.] [No JVD.] Slightly jaundiced. Chest: [Clear throughout, no crackles, no rhonchi, no wheezes.] Cardiac Exam: [Normal S1 and S2, no S3 gallop, no murmur.] Abdomen: [Distended, nontender, positive ascites. no megaly, no rebound, no guarding, normal bowel sounds.] Extremities: [No clubbing, no edema, no cyanosis.] Neurological Exam: [No focal neurologic deficit.] Alert and oriented 3. Psychiatric: Normal mood affect and normal mental status examination. Skin: No rashes. Positive jaundice. Results - Laboratory Findings CBC and BMP: 07/29/22 09:24 07/29/22 03:41 PT/INR, D-dimer PT 17.4 sec (9.0-12.0) H 07/29/22 03:41 INR 1.8 (<1.2) H 07/29/22 03:41 Abnormal lab findings: Abnormal Labs 07/29/22 07/29/22 07/29/22 03:41 03:41 03:41 RBC 3.51 L Hgb 10.1 L Hct 30.6 L RDW 19.0 H Plt Count 93 L PT 17.4 H INR 1.8 H APTT 32.9 H Sodium 131 L Potassium 3.3 L Carbon Dioxide 19 L Creatinine 0.63 L Glucose 118 H POC Glucose (mg/dL) Calcium 7.1 L Total Bilirubin 4.0 H Ammonia Albumin 2.7 L Crossmatch 07/29/22 07/29/22 07/29/22 05:30 09:24 11:04 RBC 3.19 L Hgb 9.3 L Hct 28.4 L RDW 19.0 H Plt Count 91 L PT INR APTT Sodium Potassium Carbon Dioxide Creatinine Glucose POC Glucose (mg/dL) Calcium Total Bilirubin Ammonia 57 H Albumin Crossmatch See Detail 07/29/22 14:16 RBC Hgb Hct RDW Plt Count PT INR APTT Sodium Potassium Carbon Dioxide Creatinine Glucose POC Glucose (mg/dL) 118 H Calcium Total Bilirubin Ammonia Albumin Crossmatch - Diagnostic Findings Additional studies: CT of abdomen and pelvis showed severe intra-abdominal ascites with underlying cirrhosis of the liver Assessment and Plan Assessment: Impression: Acute upper GI bleeding secondary to esophageal varices secondary to alcohol liver disease and portal hypertension Alcohol liver disease Acute blood loss anemia End-stage liver disease Ascites secondary to portal hypertension and liver cirrhosis Bicytopenia secondary to alcohol use Hyperbilirubinemia secondary to liver cirrhosis Status post esophageal varices ligation postoperative day #0 Recommendation: Continue supportive care measures Continue pain control management Continue antibiotics patient is presently on Levaquin Continue octreotide Continue diuretics Interventional radiology to evaluate for paracentesis Continue to monitor hemoglobin and hematocrit every few hours and transfuse if needed for hemoglobin above 7 Continue Protonix 40 mg IV push twice a day We'll continue to follow Patient is critically ill and needs to be closely monitored in the ICU Time with Patient: Greater than 30
[2022-07-29] MEDS: ONDANSETRON 4 MG/2 ML VIAL IVP PRN (16:56)
[2022-07-29] MEDS: LEVOFLOXACIN 500MG-D5W PMX 500 MG in DEXTROSE/WATER 1 100ML.BAG IVPB SCH (17:10)
[2022-07-29 17:44] LABS: % Iron Saturation 40.06 (15.00-50.00); Iron 106 ug/dL (65-175); Total Iron Binding Capacity 265 ug/dL (228-460)
[2022-07-29 17:57] LABS: Anisocytosis Slight; HCT 28.5 % (39.0-53.0); HGB 9.4 gm/dL (13.0-17.5); MCH 30.1 pg (25.0-35.0); MCV 91.4 fL (80.0-100.0); Mean Platelet Volume 10.6; Platelet Count 92 k/uL (150-450); RBC 3.12 m/uL (4.30-5.90); RDW 18.3 % (11.5-15.5); WBC 8.1 k/uL (3.8-10.6)
[2022-07-29] MEDS ORDERED: Magnesium Replacement Protocol 1 EACH MISC MISCELLANE PRN (19:30)
[2022-07-30 00:20] LABS: Anisocytosis Slight; MCH 28.6 pg (25.0-35.0); MCHC 32.2 g/dL (31.0-37.0); MCV 88.8 fL (80.0-100.0); Mean Platelet Volume 10.6; RBC 2.59 m/uL (4.30-5.90); RDW 18.7 % (11.5-15.5); WBC 8.3 k/uL (3.8-10.6)
[2022-07-30 00:21] LABS: HGB 7.4 gm/dL (13.0-17.5); Platelet Count 73 k/uL (150-450)
[2022-07-30 00:36] LABS: Magnesium 2.2 mg/dL (1.6-2.3); Potassium 4.5 mmol/L (3.5-5.1)
[2022-07-30] MEDS: MORPHINE SULFATE 2 MG/ML SYRINGE IVP PRN ×4 (01:03→20:58)
[2022-07-30 01:28] LABS: Anisocytosis Slight; HCT 21.5 % (39.0-53.0); HGB 7.5 gm/dL (13.0-17.5); MCH 31.1 pg (25.0-35.0); MCHC 34.7 g/dL (31.0-37.0); MCV 89.8 fL (80.0-100.0); Mean Platelet Volume 10.2; RDW 18.6 % (11.5-15.5); WBC 7.9 k/uL (3.8-10.6)
[2022-07-30 01:38] LABS: Platelet Count 74 k/uL (150-450)
[2022-07-30 06:04] LABS: Anisocytosis Slight; Basophils % (A) 0 %; Eosinophils # (A) 0.1 k/uL (0-0.7); Eosinophils % (A) 1 %; HCT 21.3 % (39.0-53.0); HGB 7.1 gm/dL (13.0-17.5); Lymphocytes # (A) 1.5 k/uL (1.0-4.8); Lymphocytes % (A) 23 %; MCH 29.9 pg (25.0-35.0); MCHC 33.5 g/dL (31.0-37.0); MCV 89.1 fL (80.0-100.0); Mean Platelet Volume 10.3; Monocytes # (A) 0.6 k/uL (0-1.0); Monocytes % (A) 8 %; Neutrophils # (A) 4.3 k/uL (1.3-7.7); Neutrophils % (A) 65 %; RBC 2.39 m/uL (4.30-5.90); RDW 18.6 % (11.5-15.5); WBC 6.6 k/uL (3.8-10.6)
[2022-07-30 06:11] LABS: INR 1.6 (<1.2); Prothrombin Time 16.4 sec (9.0-12.0)
[2022-07-30 06:12] LABS: Platelet Count 76 k/uL (150-450)
[2022-07-30 06:38] LABS: ALT 22 U/L (4-49); AST 32 U/L (17-59); African American GFR (CKD) >90 (>60 ml/min/1.73 sqM); Albumin 2.4 g/dL (3.5-5.0); Alkaline Phosphatase 76 U/L (38-126); Anion Gap 4 mmol/L; Blood Urea Nitrogen 21 mg/dL (9-20); Calcium 7.1 mg/dL (8.4-10.2); Carbon Dioxide 22 mmol/L (22-30); Chloride 106 mmol/L (98-107); Glucose 114 mg/dL (74-99); Magnesium 2.1 mg/dL (1.6-2.3); Non-African American GFR(CKD) >90 (>60 ml/min/1.73 sqM); Potassium 4.1 mmol/L (3.5-5.1); Sodium 132 mmol/L (137-145); Total Bilirubin 3.8 mg/dL (0.2-1.3); Total Protein 5.7 g/dL (6.3-8.2)
[2022-07-30] MEDS: ALBUMIN HUMAN 25% 50 ML in EMPTY BAG 1 BAG IVPB SCH ×6 (08:52→10:41)
[2022-07-30] MEDS: FUROSEMIDE 40 MG TAB PO SCH (09:10)
[2022-07-30] MEDS: LACTULOSE 20 GM/30 ML CUP PO SCH ×3 (09:10→21:01)
[2022-07-30] MEDS: PANTOPRAZOLE 40 MG/10 ML VIAL IVP SCH ×2 (09:10→20:57)
[2022-07-30] MEDS: SPIRONOLACTONE 25 MG TAB PO SCH (09:10)
[2022-07-30] MEDS: OCTREOTIDE 500 MCG in SODIUM CHLORIDE 0.9% 250 ML IV SCH ×2 (09:42→18:46)
--- NOTE | 2022-07-30 10:47 | P.PN ---
Subjective Progress Note Date: 07/30/22 Hospital Course: 42-year-old male with history of liver cirrhosis, decompensated, history of alcohol dependence, presenting with hematemesis and abdominal distention. Initially in the ED patient was afebrile, pulse at 98, respiratory rate 18, blood pressure 101/88, 95% on room air. Initial lab work showed hemoglobin of 10.1, platelet count 93, INR 1.8, potassium 3.3, creatinine 0.63. Patient was admitted for upper GI bleeding, with GI consultation. Patient was also admitted to the medical ICU. Subjective: Patient seen and examined at bedside. He denies any further episodes of hematemesis. He claims that he has pain in his back and abdomen, but getting better with paracentesis. He does have some lightheadedness, but denies any chest pain, palpitations, shortness of breath, nausea or diarrhea, constipation, or urinary complaints. Pertinent positives and negatives as discussed above, a complete review of systems was performed and all other systems are negative. Vitals Signs Reviewed. General: nontoxic, no distress, appears older than at stated age Derm: warm, dry, jaundice Head: atraumatic, normocephalic, symmetric Eyes: EOMI, no lid lag, scleral icterus Mouth: no lip lesion, mucus membranes moist Cardiovascular: S1S2 reg, no murmur Lungs: CTA bilateral, no rhonchi, no rales , no accessory muscle use Abdominal: soft, distended, nontender to palpation, no guarding, no appreciable organomegaly Ext: no gross muscle atrophy, no edema, no contractures Neuro: CN II-XI grossly intact, no focal neuro deficits Psych: Alert, oriented, appropriate affect Data Reviewed Today: Pertinent Labs: Hemoglobin 7.5, platelets 24, potassium 4.5, magnesium 2.2 Assessment and Plan: Patient is currently critically ill, continues to have drop in his hemoglobin from blood loss. He currently remains in the medical ICU. Prognosis is very guarded. Active: Acute blood loss anemia Acute esophageal variceal bleed status post ligation Decompensated liver cirrhosis History of alcohol dependence Thrombocytopenia Elevated INR -EGD note reviewed, showed large amount of fresh blood noted in the fundus of the stomach, no gastric varices, but does have mid and distal large esophageal varices status post variceal ligation -GI and lip and gate builder following -Hemoglobin continue downtrend, we'll continue to monitor with frequent CBC -IV Protonix 40 twice a day -On octreotide infusion at 50 mcg per hour -Levofloxacin 500 mg IV every 24 hours -Currently in the process of getting paracentesis, reportedly removed about 12 L, culture pending -Lactulose 30 g by mouth 3 times a day, Lasix 40 mg daily, spironolactone 100 mg daily -Needs close monitoring of electrolytes -On morphine 2 mg IV every 4 hours as needed for pain, avoid narcotics for pain if possible Resolved: Hypokalemia DVT ppx: SCD Code status: Full code Anticipated discharge place: Pending clinical course Anticipated discharge time: Pending clinical course Objective - Vital Signs Vital signs: Vital Signs Temp 98 F 07/30/22 08:29 Pulse 68 07/30/22 10:00 Resp 15 07/30/22 10:00 BP 101/43 07/30/22 10:00 Pulse Ox 90 L 07/30/22 10:00 FiO2 Intake & Output 07/29/22 07/30/22 07/30/22 18:59 06:59 18:59 Intake Total 1324 1506.833 670 Output Total 0 300 Balance 1324 1506.833 370 Weight 104.326 kg 113.4 kg Intake: IV 500 40 120 0.9 KVO 40 120 Intake, IV Titration 514 528.833 550 Amount Albumin Human 25% 50 ml 200 In Empty Bag 1 bag @ 200 mls/hr IVPB Q15M [facility] Rx#: [id number] Albumin Human 25% 50 ml 100 In Empty Bag 1 bag @ 50 mls/hr IVPB Q1H [facility] Rx#: [id number] Levofloxacin 500Mg-D5w 100 Pmx 500 mg In Dextrose/ Water 1 100ml.bag @ 100 mls/hr IVPB Q24H [facility] Rx#: [id number] Magnesium Sulfate-D5w Pmx 100 1 gm In Dextrose/Water 1 100ml.bag @ 100 mls/hr IVPB Q1H [facility] Rx#: [id number] Octreotide 500 mcg In 75 330.833 250 Sodium Chloride 0.9% 250 ml @ 50 MCG/HR 25 mls/hr IV .Q10H [facility] Rx#: [id number] Potassium Chloride 10 meq 200 In Water For Injection 1 100ml.bag @ 100 mls/hr IVPB Q1HR [facility] Rx#: [id number] Sodium Chloride 0.9% 1, 39 198 000 ml @ 999 mls/hr IV . Q1H1M [facility] Rx#:[id number] Blood Product 310 938 Ffp 24 Cpd Unit 0 328 [id number] Ffp 24 Cpd Unit 305 [id number] Rc As-1 Unit 310 [id number] Output: Urine 0 300 Other: Voiding Method Urinal Urinal Urinal # Voids 0 # Bowel Movements 1 0 - Labs CBC & Chem 7: 07/30/22 05:37 07/30/22 05:37 Labs: Abnormal Lab Results - Last 24 Hours (Table) 07/29/22 07/29/22 07/29/22 Range/Units 05:30 11:04 11:04 RBC (4.30-5.90) m/uL Hgb (13.0-17.5) gm/dL Hct (39.0-53.0) % RDW (11.5-15.5) % Plt Count (150-450) k/uL PT (9.0-12.0) sec INR (<1.2) Sodium (137-145) mmol/L BUN (9-20) mg/dL Glucose (74-99) mg/dL POC Glucose (mg/dL) (70-110) mg/dL Calcium (8.4-10.2) mg/dL Transferrin 189.0 L (204.0-354.0) mg/dL Total Bilirubin (0.2-1.3) mg/dL Ammonia 57 H (<30) umol/L Total Protein (6.3-8.2) g/dL Albumin (3.5-5.0) g/dL Vitamin B12 1353.0 H (200.0-944.0) pg/mL Crossmatch See Detail 07/29/22 07/29/22 07/29/22 Range/Units 14:16 16:45 23:17 RBC 3.12 L 2.59 L (4.30-5.90) m/uL Hgb 9.4 L 7.4 L D (13.0-17.5) gm/dL Hct 28.5 L 23.0 L (39.0-53.0) % RDW 18.3 H 18.7 H (11.5-15.5) % Plt Count 92 L 73 L (150-450) k/uL PT (9.0-12.0) sec INR (<1.2) Sodium (137-145) mmol/L BUN (9-20) mg/dL Glucose (74-99) mg/dL POC Glucose (mg/dL) 118 H (70-110) mg/dL Calcium (8.4-10.2) mg/dL Transferrin (204.0-354.0) mg/dL Total Bilirubin (0.2-1.3) mg/dL Ammonia (<30) umol/L Total Protein (6.3-8.2) g/dL Albumin (3.5-5.0) g/dL Vitamin B12 (200.0-944.0) pg/mL Crossmatch 07/30/22 07/30/22 07/30/22 Range/Units 00:57 05:37 05:37 RBC 2.40 L 2.39 L (4.30-5.90) m/uL Hgb 7.5 L 7.1 L (13.0-17.5) gm/dL Hct 21.5 L 21.3 L (39.0-53.0) % RDW 18.6 H 18.6 H (11.5-15.5) % Plt Count 74 L 76 L (150-450) k/uL PT (9.0-12.0) sec INR (<1.2) Sodium 132 L (137-145) mmol/L BUN 21 H (9-20) mg/dL Glucose 114 H (74-99) mg/dL POC Glucose (mg/dL) (70-110) mg/dL Calcium 7.1 L (8.4-10.2) mg/dL Transferrin (204.0-354.0) mg/dL Total Bilirubin 3.8 H (0.2-1.3) mg/dL Ammonia (<30) umol/L Total Protein 5.7 L (6.3-8.2) g/dL Albumin 2.4 L (3.5-5.0) g/dL Vitamin B12 (200.0-944.0) pg/mL Crossmatch 07/30/22 Range/Units 05:37 RBC (4.30-5.90) m/uL Hgb (13.0-17.5) gm/dL Hct (39.0-53.0) % RDW (11.5-15.5) % Plt Count (150-450) k/uL PT 16.4 H (9.0-12.0) sec INR 1.6 H (<1.2) Sodium (137-145) mmol/L BUN (9-20) mg/dL Glucose (74-99) mg/dL POC Glucose (mg/dL) (70-110) mg/dL Calcium (8.4-10.2) mg/dL Transferrin (204.0-354.0) mg/dL Total Bilirubin (0.2-1.3) mg/dL Ammonia (<30) umol/L Total Protein (6.3-8.2) g/dL Albumin (3.5-5.0) g/dL Vitamin B12 (200.0-944.0) pg/mL Crossmatch
--- NOTE | 2022-07-30 11:36 | US ---
Ultrasound-guided paracentesis. DATE OF EXAM: 07/30/2022 CLINICAL HISTORY: Ascites The procedure was discussed with the patient. The risks, complications, benefits, and alternatives we re discussed and any questions were answered. Informed consent was obtained. The patient was placed s upine on the ultrasound table and prepped and draped in the usual sterile fashion. All elements of maximal barrier technique were utilized. Under ultrasound guidance, access into the right lower quadrant was obtained, via the paracentesis catheter system and direct ultrasound guidanc e. The patient was stable throughout the procedure and remained stable upon discharge from Department of Radiology. IMPRESSION: Successful paracentesis under ultrasound guidance.
[2022-07-30 11:56] LABS: Anisocytosis Slight; HCT 20.7 % (39.0-53.0); MCHC 32.4 g/dL (31.0-37.0); MCV 89.5 fL (80.0-100.0); Mean Platelet Volume 10.4; RBC 2.31 m/uL (4.30-5.90); WBC 3.6 k/uL (3.8-10.6)
[2022-07-30 12:13] LABS: HGB 6.7 gm/dL (13.0-17.5); Platelet Count 59 k/uL (150-450)
--- NOTE | 2022-07-30 12:29 | P.PN ---
Subjective Progress Note Date: 07/30/22 Principal diagnosis: acute upper GI bleeding from esophageal varices This is a 42-year-old male with previous history of alcoholism, history of cirrhosis of the liver, his last admission to the hospital with ascites and liver issues was back in April of this year. Patient was treated for his ascites with diuretics including Aldactone and Lasix. Has not had any further follow-up with gastroenterology since his last admission. Patient was followed up with his primary care physician at the [place] and he was set up to have paracentesis at the [facility] in [place]. Patient has been complaining of increased abdominal girth and increased abdominal fluid with distention, his last paracentesis was on 05/02/2022, and apparently at that time he had 5 L of fluid removed. In addition to his abdominal distention, patient was seen in the ER for vomiting blood. Before he arrived to the ER, he vomited apparently about 100 mL of blood, and he has been complaining of intermittent episodes of nausea and vomiting. Patient was never diagnosed as having esophageal varices in the p ast. However on admission his hemoglobin was noted to be 10.1, patient was also noted to have elevated INR of 1.8. Admitted to the floor after receiving 2 units of fresh was a plasma. Gastroenterology was consulted on this patient, and he underwent EGD by Dr. Keenan, mostly because of his initial complaint of hematemesis and 2 episodes of black tarry stools since admission. Patient was found to have significant amount of blood in the stomach, the amount was quite large, there was no evidence of gastric varices, but there was a large mid and distal esophageal varices with multiple red whale signs, patient underwent variceal ligation. Bleeding was basically controlled, patient was transferred to the ICU mostly because of the significant amount of blood noted during the EGD, and the fact that the patient went esophageal varices ligation. Patient will receive a unit of packed RBCs while in the ICU, and he was monitored closely. Hemoglobin now is 9.3, and another hemoglobin is pending in the next few hours. Patient denies drinking any alcohol since last April after his last admission. reevaluated today on07/30/2022, patient remains in the ICU, he had 12 L of fluid drained from his abdomen/ascites. Patient also received a unit of packed RBCs last night for drop in hemoglobin, and 2 units of fresh frozen plasma. Hemoglobin today is 7.1, and he may receive another unit of blood if he drops down further. Overall the bleeding does not seem to be very active and rather minimal. Nonetheless the patient will continue to be monitored in the ICU . Patient is on room air, blood pressure is 99/48 with a mean of 65.follow-up hemoglobin after I evaluated the patient today was 6.7 hence I ordered another unit of packed RBCs.basic metabolic profile is normal INR today is 1.6 Objective - Vital Signs Vital signs: Vital Signs Temp 98 F 07/30/22 08:29 Pulse 68 07/30/22 10:00 Resp 15 07/30/22 10:00 BP 101/43 07/30/22 10:00 Pulse Ox 90 L 07/30/22 10:00 FiO2 Intake & Output 07/29/22 07/30/22 07/30/22 18:59 06:59 18:59 Intake Total 1324 1506.833 670 Output Total 0 300 Balance 1324 1506.833 370 Weight 104.326 kg 113.4 kg Intake: IV 500 40 120 0.9 KVO 40 120 Intake, IV Titration 514 528.833 550 Amount Albumin Human 25% 50 ml 200 In Empty Bag 1 bag @ 200 mls/hr IVPB Q15M [facility] Rx#: [id number] Albumin Human 25% 50 ml 100 In Empty Bag 1 bag @ 50 mls/hr IVPB Q1H [facility] Rx#: [id number] Levofloxacin 500Mg-D5w 100 Pmx 500 mg In Dextrose/ Water 1 100ml.bag @ 100 mls/hr IVPB Q24H [facility] Rx#: [id number] Magnesium Sulfate-D5w Pmx 100 1 gm In Dextrose/Water 1 100ml.bag @ 100 mls/hr IVPB Q1H [facility] Rx#: [id number] Octreotide 500 mcg In 75 330.833 250 Sodium Chloride 0.9% 250 ml @ 50 MCG/HR 25 mls/hr IV .Q10H [facility] Rx#: [id number] Potassium Chloride 10 meq 200 In Water For Injection 1 100ml.bag @ 100 mls/hr IVPB Q1HR [facility] Rx#: [id number] Sodium Chloride 0.9% 1, 39 198 000 ml @ 999 mls/hr IV . Q1H1M [facility] Rx#:[id number] Blood Product 310 938 Ffp 24 Cpd Unit 0 328 [id number] Ffp 24 Cpd Unit 305 [id number] Rc As-1 Unit 310 [id number] Output: Urine 0 300 Other: Voiding Method Urinal Urinal Urinal # Voids 0 # Bowel Movements 1 0 - Exam Physical Exam: Revealed a 42-year-old male in no distress on room air Head: Atraumatic, normocephalic. HEENT:[Neck is supple.] [No neck masses.] [No thyromegaly.] [No JVD.] Slightly jaundiced. Chest: [Clear throughout, no crackles, no rhonchi, no wheezes.] Cardiac Exam: [Normal S1 and S2, no S3 gallop, no murmur.] Abdomen: [Distended, nontender, positive ascites. no megaly, no rebound, no guarding, normal bowel sounds.] Extremities: [No clubbing, no edema, no cyanosis.] Neurological Exam: [No focal neurologic deficit.] Alert and oriented 3. Psychiatric: Normal mood affect and normal mental status examination. Skin: No rashes. Positive jaundice. - Labs CBC & Chem 7: 07/30/22 11:40 07/30/22 05:37 Labs: Abnormal Lab Results - Last 24 Hours (Table) 07/29/22 07/29/22 07/29/22 Range/Units 05:30 11:04 14:16 WBC (3.8-10.6) k/uL RBC (4.30-5.90) m/uL Hgb (13.0-17.5) gm/dL Hct (39.0-53.0) % RDW (11.5-15.5) % Plt Count (150-450) k/uL PT (9.0-12.0) sec INR (<1.2) Sodium (137-145) mmol/L BUN (9-20) mg/dL Glucose (74-99) mg/dL POC Glucose (mg/dL) 118 H (70-110) mg/dL Calcium (8.4-10.2) mg/dL Transferrin 189.0 L (204.0-354.0) mg/dL Total Bilirubin (0.2-1.3) mg/dL Total Protein (6.3-8.2) g/dL Albumin (3.5-5.0) g/dL Vitamin B12 1353.0 H (200.0-944.0) pg/mL Crossmatch See Detail 07/29/22 07/29/22 07/30/22 Range/Units 16:45 23:17 00:57 WBC (3.8-10.6) k/uL RBC 3.12 L 2.59 L 2.40 L (4.30-5.90) m/uL Hgb 9.4 L 7.4 L D 7.5 L (13.0-17.5) gm/dL Hct 28.5 L 23.0 L 21.5 L (39.0-53.0) % RDW 18.3 H 18.7 H 18.6 H (11.5-15.5) % Plt Count 92 L 73 L 74 L (150-450) k/uL PT (9.0-12.0) sec INR (<1.2) Sodium (137-145) mmol/L BUN (9-20) mg/dL Glucose (74-99) mg/dL POC Glucose (mg/dL) (70-110) mg/dL Calcium (8.4-10.2) mg/dL Transferrin (204.0-354.0) mg/dL Total Bilirubin (0.2-1.3) mg/dL Total Protein (6.3-8.2) g/dL Albumin (3.5-5.0) g/dL Vitamin B12 (200.0-944.0) pg/mL Crossmatch 07/30/22 07/30/22 07/30/22 Range/Units 05:37 05:37 05:37 WBC (3.8-10.6) k/uL RBC 2.39 L (4.30-5.90) m/uL Hgb 7.1 L (13.0-17.5) gm/dL Hct 21.3 L (39.0-53.0) % RDW 18.6 H (11.5-15.5) % Plt Count 76 L (150-450) k/uL PT 16.4 H (9.0-12.0) sec INR 1.6 H (<1.2) Sodium 132 L (137-145) mmol/L BUN 21 H (9-20) mg/dL Glucose 114 H (74-99) mg/dL POC Glucose (mg/dL) (70-110) mg/dL Calcium 7.1 L (8.4-10.2) mg/dL Transferrin (204.0-354.0) mg/dL Total Bilirubin 3.8 H (0.2-1.3) mg/dL Total Protein 5.7 L (6.3-8.2) g/dL Albumin 2.4 L (3.5-5.0) g/dL Vitamin B12 (200.0-944.0) pg/mL Crossmatch 07/30/22 Range/Units 11:40 WBC 3.6 L (3.8-10.6) k/uL RBC 2.31 L (4.30-5.90) m/uL Hgb 6.7 L* (13.0-17.5) gm/dL Hct 20.7 L (39.0-53.0) % RDW 19.0 H (11.5-15.5) % Plt Count 59 L (150-450) k/uL PT (9.0-12.0) sec INR (<1.2) Sodium (137-145) mmol/L BUN (9-20) mg/dL Glucose (74-99) mg/dL POC Glucose (mg/dL) (70-110) mg/dL Calcium (8.4-10.2) mg/dL Transferrin (204.0-354.0) mg/dL Total Bilirubin (0.2-1.3) mg/dL Total Protein (6.3-8.2) g/dL Albumin (3.5-5.0) g/dL Vitamin B12 (200.0-944.0) pg/mL Crossmatch Assessment and Plan Assessment: Impression: Acute upper GI bleeding secondary to esophageal varices secondary to alcohol liver disease and portal hypertension Alcohol liver disease Acute blood loss anemia End-stage liver disease Ascites secondary to portal hypertension and liver cirrhosis Bicytopenia secondary to alcohol use Hyperbilirubinemia secondary to liver cirrhosis Status post esophageal varices ligation postoperative day #1 Status post paracentesis, 12 L of fluid removed from the peritoneal cavity today. Recommendation: Continue supportive care measures Continue pain control management Continue antibiotics patient is presently on Levaquin Continue octreotide Continue diuretics Continue to monitor hemoglobin and hematocrit every few hours and transfuse if needed for hemoglobin above 7 Continue Protonix 40 mg IV push twice a day We'll continue to follow
--- NOTE | 2022-07-30 13:08 | P.PN ---
Subjective Progress Note Date: 07/30/22 Principal diagnosis: Hematemesis, ascites Pleasant 42-year-old male who presented to the emergency department with complaints of abdominal pain/distention and vomiting blood 1 at 2 AM. He has a history of heavy alcohol abuse with cirrhosis of the liver. Patient was recently admitted and seen by gastroenterology for decompensated cirrhosis of liver with ascites in April of this year. He was started on spironolactone 100 mg daily and Lasix 40 mg daily. He has not followed up with gastroenterology as recommended. He has been following with his PCP through the [facility] and states that he is supposed to be getting set up with a hydrometeorological technician and paracentesis through the [facility]. He states he's had increased abdominal distention, he is not sick help due to having his son in town for the last 2 weeks duration. He states he is taking his diuretics daily. He is not on any lactulose. Has no history of a GI bleed. States he does believe that he had an upper endoscopy done and [facility] Asher in March, unsure of results. Has chronic anemia likely secondary to underlying liver disease. Last paracentesis was 05/02/2022 with 5 L removed. He currently denies any nausea or vomiting. He denies any shortness of breath or chest pain. Complaints of abdominal discomfort and distention. Denies any fevers or chills. He's been afebrile. States that his home his bowel movements have been normal brown but here he stated he had 2 bowel movements which he states was somewhat of a maroon color. Imaging CT abdomen pelvis with contrast report severe intra-abdominal ascites even more prominent from prior. Underlying cirrhosis redemonstrated. No new findings otherwise. Labs WBC 5.9 hemoglobin 9.3 hematocrit 28 platelet count 91,000 INR 1.8 sodium 131 potassium 3.3 BUN 12 creatinine 0.6 glucose 118 total bilirubin 4.0 AST 50 ALT 27 alkaline phosphatase 100 lipase 45, ammonia level pending 07/30/2022: Patient seen and examined in the ICU. He is status post EGD with esophageal banding. EGD revealed large amount of fresh blood noted in the fund us of the stomach no evidence of gastric varices, large mid and distal esophageal varices with multiple red wheal signs status post variceal ligation. Patient was started on octreotide, Levaquin and lactulose. He is scheduled for paracentesis this morning. Has not had any further vomiting/hematemesis. Morning labs WBC 6.6 hemoglobin 7.7 hematocrit 21 platelet count 76,000 INR 1.6 sodium 132 potassium 4.1 BUN 21 creatinine 0.7 total bilirubin 3.8 AST 32 ALT 22 alkaline phosphatase 76 Objective - Vital Signs Vital signs: Vital Signs Temp 98.5 F 07/30/22 04:00 Pulse 84 07/30/22 07:00 Resp 15 07/30/22 07:00 BP 97/57 07/30/22 07:00 Pulse Ox 93 L 07/30/22 07:00 FiO2 Intake & Output 07/29/22 07/30/22 07/30/22 18:59 06:59 18:59 Intake Total 1324 1506.833 20 Output Total 0 0 Balance 1324 1506.833 20 Weight 104.326 kg 113.4 kg Intake: IV 500 40 20 0.9 KVO 40 20 Intake, IV Titration 514 528.833 Amount Levofloxacin 500Mg-D5w 100 Pmx 500 mg In Dextrose/ Water 1 100ml.bag @ 100 mls/hr IVPB Q24H [facility] Rx#: [id number] Magnesium Sulfate-D5w Pmx 100 1 gm In Dextrose/Water 1 100ml.bag @ 100 mls/hr IVPB Q1H [facility] Rx#: [id number] Octreotide 500 mcg In 75 330.833 Sodium Chloride 0.9% 250 ml @ 50 MCG/HR 25 mls/hr IV .Q10H [facility] Rx#: [id number] Potassium Chloride 10 meq 200 In Water For Injection 1 100ml.bag @ 100 mls/hr IVPB Q1HR [facility] Rx#: [id number] Sodium Chloride 0.9% 1, 39 198 000 ml @ 999 mls/hr IV . Q1H1M [facility] Rx#:[id number] Blood Product 310 938 Ffp 24 Cpd Unit 0 328 [id number] Ffp 24 Cpd Unit 305 [id number] Rc As-1 Unit 310 [id number] Output: Urine 0 0 Other: Voiding Method Urinal Urinal # Voids 0 # Bowel Movements 1 0 - Exam General appearance: The patient is alert, oriented, appears in no acute distress. HET: Head is normocephalic and atraumatic. Conjunctiva pink. Sclera icteric. Neck: Supple without lymphadenopathy. Abdomen: Soft, large abdominal ascites with distention, diffuse TTP. No guarding or rigidity. Extremities: Normal skin color and turgor. Bilateral pedal edema Skin: No rashes, jaundice. Neurological: No focal deficits. Alert and oriented. - Labs CBC & Chem 7: 07/30/22 11:40 07/30/22 05:37 Labs: Abnormal Lab Results - Last 24 Hours (Table) 07/29/22 07/29/22 07/29/22 Range/Units 05:30 09:24 11:04 RBC 3.19 L (4.30-5.90) m/uL Hgb 9.3 L (13.0-17.5) gm/dL Hct 28.4 L (39.0-53.0) % RDW 19.0 H (11.5-15.5) % Plt Count 91 L (150-450) k/uL PT (9.0-12.0) sec INR (<1.2) Sodium (137-145) mmol/L BUN (9-20) mg/dL Glucose (74-99) mg/dL POC Glucose (mg/dL) (70-110) mg/dL Calcium (8.4-10.2) mg/dL Transferrin (204.0-354.0) mg/dL Total Bilirubin (0.2-1.3) mg/dL Ammonia 57 H (<30) umol/L Total Protein (6.3-8.2) g/dL Albumin (3.5-5.0) g/dL Vitamin B12 (200.0-944.0) pg/mL Crossmatch See Detail 07/29/22 07/29/22 07/29/22 Range/Units 11:04 14:16 16:45 RBC 3.12 L (4.30-5.90) m/uL Hgb 9.4 L (13.0-17.5) gm/dL Hct 28.5 L (39.0-53.0) % RDW 18.3 H (11.5-15.5) % Plt Count 92 L (150-450) k/uL PT (9.0-12.0) sec INR (<1.2) Sodium (137-145) mmol/L BUN (9-20) mg/dL Glucose (74-99) mg/dL POC Glucose (mg/dL) 118 H (70-110) mg/dL Calcium (8.4-10.2) mg/dL Transferrin 189.0 L (204.0-354.0) mg/dL Total Bilirubin (0.2-1.3) mg/dL Ammonia (<30) umol/L Total Protein (6.3-8.2) g/dL Albumin (3.5-5.0) g/dL Vitamin B12 1353.0 H (200.0-944.0) pg/mL Crossmatch 07/29/22 07/30/22 07/30/22 Range/Units 23:17 00:57 05:37 RBC 2.59 L 2.40 L 2.39 L (4.30-5.90) m/uL Hgb 7.4 L D 7.5 L 7.1 L (13.0-17.5) gm/dL Hct 23.0 L 21.5 L 21.3 L (39.0-53.0) % RDW 18.7 H 18.6 H 18.6 H (11.5-15.5) % Plt Count 73 L 74 L 76 L (150-450) k/uL PT (9.0-12.0) sec INR (<1.2) Sodium (137-145) mmol/L BUN (9-20) mg/dL Glucose (74-99) mg/dL POC Glucose (mg/dL) (70-110) mg/dL Calcium (8.4-10.2) mg/dL Transferrin (204.0-354.0) mg/dL Total Bilirubin (0.2-1.3) mg/dL Ammonia (<30) umol/L Total Protein (6.3-8.2) g/dL Albumin (3.5-5.0) g/dL Vitamin B12 (200.0-944.0) pg/mL Crossmatch 07/30/22 07/30/22 Range/Units 05:37 05:37 RBC (4.30-5.90) m/uL Hgb (13.0-17.5) gm/dL Hct (39.0-53.0) % RDW (11.5-15.5) % Plt Count (150-450) k/uL PT 16.4 H (9.0-12.0) sec INR 1.6 H (<1.2) Sodium 132 L (137-145) mmol/L BUN 21 H (9-20) mg/dL Glucose 114 H (74-99) mg/dL POC Glucose (mg/dL) (70-110) mg/dL Calcium 7.1 L (8.4-10.2) mg/dL Transferrin (204.0-354.0) mg/dL Total Bilirubin 3.8 H (0.2-1.3) mg/dL Ammonia (<30) umol/L Total Protein 5.7 L (6.3-8.2) g/dL Albumin 2.4 L (3.5-5.0) g/dL Vitamin B12 (200.0-944.0) pg/mL Crossmatch Assessment and Plan (1) Hematemesis Narrative/Plan: 42-year-old male with a long-standing history of alcoholic cirrhosis of the liver presented to the hospital after having an episode of hematemesis this morning around 2 AM. Denies any previous history of upper GI bleed or e sophageal varices. However he does state that he believes he had EGD done in March 2022 at [facility] which records are not available at this time. Patient came in with a hemoglobin of 10.1 with a repeat 29.3. No further episodes of hematemesis however he did state to maroon colored stools. Unclear etiology at this time however the patient's history and to consider portal hyper tension and esophageal varices. We will proceed with EGD this afternoon. 07/30/2022: Patient status post EGD with findings of large amount of fresh blood in the fundus of stomach, no gastric varices, large mid and distal esophageal varices status post variceal ligation. No further active bleeding, no hematemesis, nausea or vomiting. Continue with octreotide for 2-3 more days, along with Levaquin 500 mg daily. Avoid any anticoagulation. Transfuse for hemoglobin less than 7. Current Visit: Yes Status: Acute Code(s): K92.0 - HEMATEMESIS SNOMED Code(s): 5318842 (2) Alcoholic cirrhosis of liver with ascites Narrative/Plan: Interventional radiology consulted for Paracentesis. Continue current diuretics patient scheduled for paracentesis today. Albumin ordered. Current Visit: No Status: Acute Code(s): K70.31 - ALCOHOLIC CIRRHOSIS OF LIVER WITH ASCITES SNOMED Code(s): 477419940 (3) Anemia Narrative/Plan: Patient with a history of iron deficiency anemia as well as history of thrombocy topenia related to underlying liver disease. Will proceed with endoscopic evaluation. Current Visit: No Status: Acute Code(s): D64.9 - ANEMIA, UNSPECIFIED SNOMED Code(s): 722994530 Plan: 1. Continue symptomatic and supportive care 2. May have clear liquid diet 3. Avoid NSAIDs, anticoagulation 4. Protonix 40 mg daily 5. Status post EGD 6. Continue Lasix 40 mg daily and spironolactone 100 mg daily 7. Daily CBC, CMP, ammonia, INR 8. Keep hemoglobin between 7 gm/dl and 8gm/dl. Transfuse for hemoglobin less than 7 9. Continue octreotide for 2-3 more days 10. Levaquin 500 mg daily 11. Consult to interventional radiology for paracentesis 12. Albumin ordered 13. Continue with alcohol abstinence 14. Discussed with patient importance of follow-up with gastroenterology for liver disease and ongoing paracentesis. Patient [facility] that [facility] [place] Thank you for this consultation, we will continue to follow. Dr. Reinaldo Negron I agree with the dictator's note, documented as a scribe by Zuleyma Arriola.
[2022-07-30] MEDS: LEVOFLOXACIN 500MG-D5W PMX 500 MG in DEXTROSE/WATER 1 100ML.BAG IVPB SCH (15:22)
[2022-07-30 17:24] LABS: Anisocytosis Slight; HCT 22.6 % (39.0-53.0); HGB 7.9 gm/dL (13.0-17.5); MCH 31.1 pg (25.0-35.0); MCHC 34.8 g/dL (31.0-37.0); MCV 89.2 fL (80.0-100.0); Mean Platelet Volume 10.3; RBC 2.54 m/uL (4.30-5.90); RDW 17.9 % (11.5-15.5); WBC 4.1 k/uL (3.8-10.6)
[2022-07-30 17:26] LABS: Platelet Count 64 k/uL (150-450)
[2022-07-30 17:51] LABS: Glucose,Whole Blood 134 mg/dL (70-110)
[2022-07-30] MEDS ORDERED: SODIUM CHLORIDE 0.9% 1,000 ML IV ONE (18:18)
[2022-07-31] MEDS: MORPHINE SULFATE 2 MG/ML SYRINGE IVP PRN ×7 (01:27→21:10)
[2022-07-31 06:32] LABS: INR 1.8 (<1.2); Prothrombin Time 17.6 sec (9.0-12.0)
[2022-07-31 06:33] LABS: African American GFR (CKD) >90 (>60 ml/min/1.73 sqM); Anion Gap 4 mmol/L; Blood Urea Nitrogen 18 mg/dL (9-20); Calcium 7.2 mg/dL (8.4-10.2); Carbon Dioxide 24 mmol/L (22-30); Chloride 105 mmol/L (98-107); Glucose 118 mg/dL (74-99); Non-African American GFR(CKD) >90 (>60 ml/min/1.73 sqM); Potassium 3.7 mmol/L (3.5-5.1); Sodium 133 mmol/L (137-145)
[2022-07-31] MEDS ORDERED: POTASSIUM CHLORIDE ER 20 MEQ TAB.ER PO SCH (07:00)
[2022-07-31 07:04] LABS: Anisocytosis Slight; HCT 28.7 % (39.0-53.0); MCV 91.1 fL (80.0-100.0); Mean Platelet Volume 10.1; Platelet Count 71 k/uL (150-450); RBC 3.15 m/uL (4.30-5.90); RDW 18.1 % (11.5-15.5); WBC 5.9 k/uL (3.8-10.6)
[2022-07-31 07:07] LABS: HGB 9.5 gm/dL (13.0-17.5)
[2022-07-31] MEDS: SPIRONOLACTONE 25 MG TAB PO SCH (08:45)
[2022-07-31] MEDS: OCTREOTIDE 500 MCG in SODIUM CHLORIDE 0.9% 250 ML IV SCH (08:45)
[2022-07-31] MEDS: PANTOPRAZOLE 40 MG/10 ML VIAL IVP SCH ×2 (08:45→21:10)
[2022-07-31] MEDS: LACTULOSE 20 GM/30 ML CUP PO SCH ×3 (08:46→21:18)
[2022-07-31] MEDS: FUROSEMIDE 40 MG TAB PO SCH (08:46)
--- NOTE | 2022-07-31 10:18 | P.PN ---
Subjective Progress Note Date: 07/31/22 Hospital Course: 42-year-old male with history of liver cirrhosis, decompensated, history of alcohol dependence, presenting with hematemesis and abdominal distention. Initially in the ED patient was afebrile, pulse at 98, respiratory rate 18, blood pressure 101/88, 95% on room air. Initial lab work showed hemoglobin of 10.1, platelet count 93, INR 1.8, potassium 3.3, creatinine 0.63. Patient was admitted for upper GI bleeding, with GI consultation. Patient was also admitted to the medical ICU. He is status post status post EGD. It showed large amount of fresh blood noted in the fundus of the stomach, no gastric varices, but does have mid and distal large esophageal varices status post variceal ligation. He is currently on octreotide drip. Also on IV antibiotics. He is also status post paracentesis. Due to ongoing blood loss anemia, he was transfused 2 units of PRBCs as well as 2 FFP. Subjective: Patient seen and examined at bedside. He denies any further episodes of hematemesis. He claims that he has pain in his abdomen. He denies any chest pain, palpitations, shortness of breath, nausea or diarrhea, constipation, or urinary complaints. Pertinent positives and negatives as discussed above, a complete review of systems was performed and all other systems are negative. Vitals Signs Reviewed. General: nontoxic, no distress, appears older than at stated age Derm: warm, dry, jaundice Head: atraumatic, normocephalic, symmetric Eyes: EOMI, no lid lag, scleral icterus Mouth: no lip lesion, mucus membranes moist Cardiovascular: S1S2 reg, no murmur Lungs: CTA bilateral, no rhonchi, no rales , no accessory muscle use Abdominal: soft, distended, nontender to palpation, no guarding, no appreciable organomegaly Ext: no gross muscle atrophy, no edema, no contractures Neuro: CN II-XI grossly intact, no focal neuro deficits Psych: Alert, oriented, appropriate affect Data Reviewed Today: Pertinent Labs: Hemoglobin 9.5, platelets 71, INR 1.8, sodium 133, potassium 3.7, creatinine 0.74 Paracentesis Cultures negative growth to date Assessment and Plan: Patient is currently critically ill, continues to have drop in his hemoglobin from blood loss. He currently remains in the medical ICU. Prognosis is very guarded. Active: Acute blood loss anemia Acute esophageal variceal bleed status post ligation Decompensated liver cirrhosis History of alcohol dependence Thrombocytopenia Elevated INR -GI and otolaryngology surgeon following -Hemoglobin continue to down trend, received 2 units of FFP and 2 units of PRBCs, continue to monitor with CBC -IV Protonix 40 twice a day -On octreotide infusion at 50 mcg per hour -Levofloxacin 500 mg IV every 24 hours -Lactulose 30 g by mouth 3 times a day, Lasix 40 mg daily, spironolactone 100 mg daily -Needs close monitoring of electrolytes -On morphine 2 mg IV every 4 hours as needed for pain, avoid narcotics for pain if possible Resolved: Hypokalemia DVT ppx: SCD Code status: Full code Anticipated discharge place: Pending clinical course Anticipated discharge time: Pending clinical course Objective - Vital Signs Vital signs: Vital Signs Temp 98.7 F 07/31/22 08:30 Pulse 84 07/31/22 09:00 Resp 14 07/31/22 09:00 BP 113/69 07/31/22 09:00 Pulse Ox 92 L 07/31/22 09:00 FiO2 Intake & Output 07/30/22 07/31/22 07/31/22 18:59 06:59 18:59 Intake Total 1396.667 360 620 Output Total 650 300 0 Balance 746.667 60 620 Weight 100.2 kg Intake: IV 210 110 30 0.9 KVO 210 110 30 Intake, IV Titration 876.667 250 Amount Albumin Human 25% 50 ml 200 In Empty Bag 1 bag @ 200 mls/hr IVPB Q15M [facility] Rx#: [id number] Albumin Human 25% 50 ml 100 In Empty Bag 1 bag @ 50 mls/hr IVPB Q1H [facility] Rx#: [id number] Levofloxacin 500Mg-D5w 100 Pmx 500 mg In Dextrose/ Water 1 100ml.bag @ 100 mls/hr IVPB Q24H [facility] Rx#: [id number] Octreotide 500 mcg In 476.667 250 Sodium Chloride 0.9% 250 ml @ 50 MCG/HR 25 mls/hr IV .Q10H [facility] Rx#: [id number] Oral 590 Blood Product 310 Rc As-1 Unit 310 [id number] Output: Urine 650 300 0 Other: Voiding Method Urinal Urinal # Voids 1 1 # Bowel Movements 1 1 - Labs CBC & Chem 7: 07/31/22 05:47 07/31/22 05:47 Labs: Abnormal Lab Results - Last 24 Hours (Table) 07/29/22 07/30/22 07/30/22 Range/Units 05:30 11:40 17:06 WBC 3.6 L (3.8-10.6) k/uL RBC 2.31 L 2.54 L (4.30-5.90) m/uL Hgb 6.7 L* 7.9 L (13.0-17.5) gm/dL Hct 20.7 L 22.6 L (39.0-53.0) % RDW 19.0 H 17.9 H (11.5-15.5) % Plt Count 59 L 64 L (150-450) k/uL PT (9.0-12.0) sec INR (<1.2) Sodium (137-145) mmol/L Glucose (74-99) mg/dL POC Glucose (mg/dL) (70-110) mg/dL Calcium (8.4-10.2) mg/dL Crossmatch See Detail 07/30/22 07/31/22 07/31/22 Range/Units 17:49 05:47 05:47 WBC (3.8-10.6) k/uL RBC 3.15 L (4.30-5.90) m/uL Hgb 9.5 L D (13.0-17.5) gm/dL Hct 28.7 L (39.0-53.0) % RDW 18.1 H (11.5-15.5) % Plt Count 71 L (150-450) k/uL PT 17.6 H (9.0-12.0) sec INR 1.8 H (<1.2) Sodium (137-145) mmol/L Glucose (74-99) mg/dL POC Glucose (mg/dL) 134 H (70-110) mg/dL Calcium (8.4-10.2) mg/dL Crossmatch 07/31/22 Range/Units 05:47 WBC (3.8-10.6) k/uL RBC (4.30-5.90) m/uL Hgb (13.0-17.5) gm/dL Hct (39.0-53.0) % RDW (11.5-15.5) % Plt Count (150-450) k/uL PT (9.0-12.0) sec INR (<1.2) Sodium 133 L (137-145) mmol/L Glucose 118 H (74-99) mg/dL POC Glucose (mg/dL) (70-110) mg/dL Calcium 7.2 L (8.4-10.2) mg/dL Crossmatch Microbiology - Last 24 Hours (Table) 07/30/22 09:01 Gram Stain - Preliminary Paracentesis Fluid Body Fluid Culture - Preliminary 07/30/22 09:01 Anaerobic Culture - Preliminary Paracentesis Fluid
[2022-07-31] MEDS: CALCIUM CARBONATE 500 MG CHEWABLE PO PRN (10:41)
[2022-07-31 11:53] LABS: Hepatitis B Surface Antigen Nonreactive (Nonreactive); Hepatitis C IgG Antibody Nonreactive (Nonreactive)
--- NOTE | 2022-07-31 14:16 | P.PN ---
Subjective Progress Note Date: 07/31/22 Principal diagnosis: acute upper GI bleeding from esophageal varices This is a 42-year-old male with previous history of alcoholism, history of cirrhosis of the liver, his last admission to the hospital with ascites and liver issues was back in April of this year. Patient was treated for his ascites with diuretics including Aldactone and Lasix. Has not had any further follow-up with gastroenterology since his last admission. Patient was followed up with his primary care physician at the [facility] and he was set up to have paracentesis at the [facility] in [place]. Patient has been complaining of increased abdominal girth and increased abdominal fluid with distention, his last paracentesis was on 05/02/2022, and apparently at that time he had 5 L of fluid removed. In addition to his abdominal distention, patient was seen in the ER for vomiting blood. Before he arrived to the ER, he vomited apparently about 100 mL of blood, and he has been complaining of intermittent episodes of nausea and vomiting. Patient was never diagnosed as having esophageal varices in the p ast. However on admission his hemoglobin was noted to be 10.1, patient was also noted to have elevated INR of 1.8. Admitted to the floor after receiving 2 units of fresh was a plasma. Gastroenterology was consulted on this patient, and he underwent EGD by Dr. Keenan, mostly because of his initial complaint of hematemesis and 2 episodes of black tarry stools since admission. Patient was found to have significant amount of blood in the stomach, the amount was quite large, there was no evidence of gastric varices, but there was a large mid and distal esophageal varices with multiple red whale signs, patient underwent variceal ligation. Bleeding was basically controlled, patient was transferred to the ICU mostly because of the significant amount of blood noted during the EGD, and the fact that the patient went esophageal varices ligation. Patient will receive a unit of packed RBCs while in the ICU, and he was monitored closely. Hemoglobin now is 9.3, and another hemoglobin is pending in the next few hours. Patient denies drinking any alcohol since last April after his last admission. reevaluated today on07/30/2022, patient remains in the ICU, he had 12 L of fluid drained from his abdomen/ascites. Patient also received a unit of packed RBCs last night for drop in hemoglobin, and 2 units of fresh frozen plasma. Hemoglobin today is 7.1, and he may receive another unit of blood if he drops down further. Overall the bleeding does not seem to be very active and rather minimal. Nonetheless the patient will continue to be monitored in the ICU . Patient is on room air, blood pressure is 99/48 with a mean of 65.follow-up hemoglobin after I evaluated the patient today was 6.7 hence I ordered another unit of packed RBCs.basic metabolic profile is normal INR today is 1.6 Patient was reevaluated today on 07/31/2022, patient remains in the ICU, hemodynamically stable, not requiring any pressors, remains on octreotide, IV fluid at KVO, and I plan to transfer the patient out of the ICU if agreeable IV is discontinued. Hemoglobin today is 9.5. Has been relatively stable since yesterday. Patient received a total of 2 units of packed RBCs and 2 units of fresh femoral plasma since admission Objective - Vital Signs Vital signs: Vital Signs Temp 98.0 F 07/31/22 12:00 Pulse 82 07/31/22 13:30 Resp 10 L 07/31/22 13:30 BP 113/74 07/31/22 13:30 Pulse Ox 95 07/31/22 13:30 FiO2 Intake & Output 07/30/22 07/31/22 07/31/22 18:59 06:59 18:59 Intake Total 1396.667 360 778 Output Total 650 300 0 Balance 746.667 60 778 Weight 100.2 kg Intake: IV 210 110 70 0.9 KVO 210 110 70 Intake, IV Titration 876.667 250 Amount Albumin Human 25% 50 ml 200 In Empty Bag 1 bag @ 200 mls/hr IVPB Q15M [facility] Rx#: [id number] Albumin Human 25% 50 ml 100 In Empty Bag 1 bag @ 50 mls/hr IVPB Q1H [facility] Rx#: [id number] Levofloxacin 500Mg-D5w 100 Pmx 500 mg In Dextrose/ Water 1 100ml.bag @ 100 mls/hr IVPB Q24H [facility] Rx#: [id number] Octreotide 500 mcg In 476.667 250 Sodium Chloride 0.9% 250 ml @ 50 MCG/HR 25 mls/hr IV .Q10H [facility] Rx#: [id number] Oral 708 Blood Product 310 Rc As-1 Unit 310 [id number] Output: Urine 650 300 0 Other: Voiding Method Urinal Urinal Toilet Urinal # Voids 1 1 # Bowel Movements 1 1 - Exam Physical Exam: Revealed a 42-year-old male in no distress on room air Head: Atraumatic, normocephalic. HEENT:[Neck is supple.] [No neck masses.] [No thyromegaly.] [No JVD.] Slightly jaundiced. Chest: [Clear throughout, no crackles, no rhonchi, no wheezes.] Cardiac Exam: [Normal S1 and S2, no S3 gallop, no murmur.] Abdomen: [Distended, nontender, positive ascites. no megaly, no rebound, no guarding, normal bowel sounds.] Extremities: [No clubbing, no edema, no cyanosis.] Neurological Exam: [No focal neurologic deficit.] Alert and oriented 3. Psychiatric: Normal mood affect and normal mental status examination. Skin: No rashes. Positive jaundice. - Labs CBC & Chem 7: 07/31/22 05:47 07/31/22 05:47 Labs: Abnormal Lab Results - Last 24 Hours (Table) 07/29/22 07/30/22 07/30/22 Range/Units 05:30 17:06 17:49 RBC 2.54 L (4.30-5.90) m/uL Hgb 7.9 L (13.0-17.5) gm/dL Hct 22.6 L (39.0-53.0) % RDW 17.9 H (11.5-15.5) % Plt Count 64 L (150-450) k/uL PT (9.0-12.0) sec INR (<1.2) Sodium (137-145) mmol/L Glucose (74-99) mg/dL POC Glucose (mg/dL) 134 H (70-110) mg/dL Calcium (8.4-10.2) mg/dL Crossmatch See Detail 07/31/22 07/31/22 07/31/22 Range/Units 05:47 05:47 05:47 RBC 3.15 L (4.30-5.90) m/uL Hgb 9.5 L D (13.0-17.5) gm/dL Hct 28.7 L (39.0-53.0) % RDW 18.1 H (11.5-15.5) % Plt Count 71 L (150-450) k/uL PT 17.6 H (9.0-12.0) sec INR 1.8 H (<1.2) Sodium 133 L (137-145) mmol/L Glucose 118 H (74-99) mg/dL POC Glucose (mg/dL) (70-110) mg/dL Calcium 7.2 L (8.4-10.2) mg/dL Crossmatch Microbiology - Last 24 Hours (Table) 07/30/22 09:01 Gram Stain - Preliminary Paracentesis Fluid Body Fluid Culture - Preliminary 07/30/22 09:01 Anaerobic Culture - Preliminary Paracentesis Fluid Assessment and Plan Assessment: Impression: Acute upper GI bleeding secondary to esophageal varices secondary to alcohol liver disease and portal hypertension Alcohol liver disease Acute blood loss anemia End-stage liver disease Ascites secondary to portal hypertension and liver cirrhosis Bicytopenia secondary to alcohol use Hyperbilirubinemia secondary to liver cirrhosis Status post esophageal varices ligation postoperative day #1 Status post paracentesis, 12 L of fluid removed from the peritoneal cavity today. Recommendation: Continue supportive care measures Continue pain control management Continue antibiotics patient is presently on Levaquin, Gram stain on the fluid is negative so far. GI to decide on octreotide Continue diuretics Transfer patient out of the ICU was octreotide is discontinued Continue Protonix 40 mg IV push twice a day We'll continue to follow Time with Patient: Less than 30
--- NOTE | 2022-07-31 15:13 | P.PN ---
Subjective Progress Note Date: 07/31/22 Principal diagnosis: Hematemesis, ascites Pleasant 42-year-old male who presented to the emergency department with complaints of abdominal pain/distention and vomiting blood 1 at 2 AM. He has a history of heavy alcohol abuse with cirrhosis of the liver. Patient was recently admitted and seen by gastroenterology for decompensated cirrhosis of liver with ascites in April of this year. He was started on spironolactone 100 mg daily and Lasix 40 mg daily. He has not followed up with gastroenterology as recommended. He has been following with his PCP through the [place] and states that he is supposed to be getting set up with a live games dealer and paracentesis through the [facility]. He states he's had increased abdominal distention, he is not sick help due to having his son in town for the last 2 weeks duration. He states he is taking his diuretics daily. He is not on any lactulose. Has no history of a GI bleed. States he does believe that he had an upper endoscopy done and Bandar Asher in March, unsure of results. Has chronic anemia likely secondary to underlying liver disease. Last paracentesis was 05/02/2022 with 5 L removed. He currently denies any nausea or vomiting. He denies any shortness of breath or chest pain. Complaints of abdominal discomfort and distention. Denies any fevers or chills. He's been afebrile. States that his home his bowel movements have been normal brown but here he stated he had 2 bowel movements which he states was somewhat of a maroon color. Imaging CT abdomen pelvis with contrast report severe intra-abdominal ascites even more prominent from prior. Underlying cirrhosis redemonstrated. No new findings otherwise. Labs WBC 5.9 hemoglobin 9.3 hematocrit 28 platelet count 91,000 INR 1.8 sodium 131 potassium 3.3 BUN 12 creatinine 0.6 glucose 118 total bilirubin 4.0 AST 50 ALT 27 alkaline phosphatase 100 lipase 45, ammonia level pending 07/30/2022: Patient seen and examined in the ICU. He is status post EGD with esophageal banding. EGD revealed large amount of fresh blood noted in the fund us of the stomach no evidence of gastric varices, large mid and distal esophageal varices with multiple red wheal signs status post variceal ligation. Patient was started on octreotide, Levaquin and lactulose. He is scheduled for paracentesis this morning. Has not had any further vomiting/hematemesis. Morning labs WBC 6.6 hemoglobin 7.7 hematocrit 21 platelet count 76,000 INR 1.6 sodium 132 potassium 4.1 BUN 21 creatinine 0.7 total bilirubin 3.8 AST 32 ALT 22 alkaline phosphatase 76 07/31/2022: Patient seen and examined in the ICU. Complaining of abdominal discomfort. Much of an appetite. Has tolerated clear liquid diet. Bowel movements have been normal, no further hematemesis. Hemoglobin stable at 9.5, platelet count 71,000 INR 1.8. Patient has been afebrile blood pressure 108/66 heart rate 84, oxygen saturation 94% on room air. Objective - Vital Signs Vital signs: Vital Signs Temp 98.7 F 07/31/22 08:30 Pulse 84 07/31/22 09:00 Resp 14 07/31/22 09:00 BP 113/69 07/31/22 09:00 Pulse Ox 92 L 07/31/22 09:00 FiO2 Intake & Output 07/30/22 07/31/22 07/31/22 18:59 06:59 18:59 Intake Total 1396.667 360 620 Output Total 650 300 0 Balance 746.667 60 620 Weight 100.2 kg Intake: IV 210 110 30 0.9 KVO 210 110 30 Intake, IV Titration 876.667 250 Amount Albumin Human 25% 50 ml 200 In Empty Bag 1 bag @ 200 mls/hr IVPB Q15M [facility] Rx#: [id number] Albumin Human 25% 50 ml 100 In Empty Bag 1 bag @ 50 mls/hr IVPB Q1H [facility] Rx#: [id number] Levofloxacin 500Mg-D5w 100 Pmx 500 mg In Dextrose/ Water 1 100ml.bag @ 100 mls/hr IVPB Q24H [facility] Rx#: [id number] Octreotide 500 mcg In 476.667 250 Sodium Chloride 0.9% 250 ml @ 50 MCG/HR 25 mls/hr IV .Q10H [facility] Rx#: [id number] Oral 590 Blood Product 310 Rc As-1 Unit 310 [id number] Output: Urine 650 300 0 Other: Voiding Method Urinal Urinal # Voids 1 1 # Bowel Movements 1 1 - Exam General appearance: The patient is alert, oriented, appears in no acute distress. HET: Head is normocephalic and atraumatic. Conjunctiva pink. Sclera icteric. Neck: Supple without lymphadenopathy. Abdomen: Soft, dental ascites, mildly tender to palpation. No guarding or rigidity. Extremities: Normal skin color and turgor. Bilateral pedal edema Skin: No rashes, jaundice. Neurological: No focal deficits. Alert and oriented. - Labs CBC & Chem 7: 07/31/22 05:47 07/31/22 05:47 Labs: Abnormal Lab Results - Last 24 Hours (Table) 07/29/22 07/30/22 07/30/22 Range/Units 05:30 11:40 17:06 WBC 3.6 L (3.8-10.6) k/uL RBC 2.31 L 2.54 L (4.30-5.90) m/uL Hgb 6.7 L* 7.9 L (13.0-17.5) gm/dL Hct 20.7 L 22.6 L (39.0-53.0) % RDW 19.0 H 17.9 H (11.5-15.5) % Plt Count 59 L 64 L (150-450) k/uL PT (9.0-12.0) sec INR (<1.2) Sodium (137-145) mmol/L Glucose (74-99) mg/dL POC Glucose (mg/dL) (70-110) mg/dL Calcium (8.4-10.2) mg/dL Crossmatch See Detail 07/30/22 07/31/22 07/31/22 Range/Units 17:49 05:47 05:47 WBC (3.8-10.6) k/uL RBC 3.15 L (4.30-5.90) m/uL Hgb 9.5 L D (13.0-17.5) gm/dL Hct 28.7 L (39.0-53.0) % RDW 18.1 H (11.5-15.5) % Plt Count 71 L (150-450) k/uL PT 17.6 H (9.0-12.0) sec INR 1.8 H (<1.2) Sodium (137-145) mmol/L Glucose (74-99) mg/dL POC Glucose (mg/dL) 134 H (70-110) mg/dL Calcium (8.4-10.2) mg/dL Crossmatch 07/31/22 Range/Units 05:47 WBC (3.8-10.6) k/uL RBC (4.30-5.90) m/uL Hgb (13.0-17.5) gm/dL Hct (39.0-53.0) % RDW (11.5-15.5) % Plt Count (150-450) k/uL PT (9.0-12.0) sec INR (<1.2) Sodium 133 L (137-145) mmol/L Glucose 118 H (74-99) mg/dL POC Glucose (mg/dL) (70-110) mg/dL Calcium 7.2 L (8.4-10.2) mg/dL Crossmatch Microbiology - Last 24 Hours (Table) 07/30/22 09:01 Gram Stain - Preliminary Paracentesis Fluid Body Fluid Culture - Preliminary 07/30/22 09:01 Anaerobic Culture - Preliminary Paracentesis Fluid Assessment and Plan (1) Hematemesis Narrative/Plan: 42-year-old male with a long-standing history of alcoholic cirrhosis of the liver presented to the hospital after having an episode of hematemesis this morning around 2 AM. Denies any previous history of upper GI bleed or esophageal varices. However he does state that he believes he had EGD done in March 2022 at [facility] which records are not available at this time. Patient came in with a hemoglobin of 10.1 with a repeat 29.3. No further episodes of hematemesis however he did state to maroon colored stools. Unclear etiology at this time however the patient's history and to consider portal hypertension and esophageal varices. We will proceed with EGD this afternoon. 07/30/2022: Patient status post EGD with findings of large amount of fresh blood in the fundus of stomach, no gastric varices, large mid and distal esophageal varices status post variceal ligation. No further active bleeding, no hematemesis, nausea or vomiting. Continue with octreotide for 2-3 more days, along with Levaquin 500 mg daily. Avoid any anticoagulation. Transfuse for hemoglobin less than 7. Current Visit: Yes Status: Acute Code(s): K92.0 - HEMATEMESIS SNOMED Code(s): 5102442 (2) Alcoholic cirrhosis of liver with ascites Narrative/Plan: Interventional radiology consulted for Paracentesis. Continue current diuretics patient scheduled for paracentesis today. Albumin ordered. Current Visit: No Status: Acute Code(s): K70.31 - ALCOHOLIC CIRRHOSIS OF LIVER WITH ASCITES SNOMED Code(s): 951446673 (3) Anemia Narrative/Plan: Patient with a history of iron deficiency anemia as well as history of thrombocytopenia related to underlying liver disease. Will proceed with endoscopic evaluation. Current Visit: No Status: Acute Code(s): D64.9 - ANEMIA, UNSPECIFIED SNOMED Code(s): 781938987 Plan: 1. Continue symptomatic and supportive care 2. May advance to low sodium diet 3. Avoid NSAIDs, anticoagulation 4. Protonix 40 mg daily 5. Status post EGD 6. Continue Lasix 40 mg daily and spironolactone 100 mg daily 7. Daily CBC, CMP, ammonia, INR 8. May discontinue octreotide after bag is complete 9. Patient may be transferred to medical floor if bell spinner approves 10. Levaquin 500 mg IV daily for total of 5 days 11. Consult to interventional radiology for paracentesis, patient is status post paracentesis with 12 L removed 12. Status post albumin 13. Continue with alcohol abstinence 14. Discussed with patient importance of follow-up with gastroenterology for liver disease and ongoing paracentesis. [facility] [place] Thank you for this consultation, we will continue to follow. Dr. Reinaldo Negron I agree with the dictator's note, documented as a scribe by Zuleyma Arriola.
[2022-07-31] MEDS: LEVOFLOXACIN 500MG-D5W PMX 500 MG in DEXTROSE/WATER 1 100ML.BAG IVPB SCH (15:26)
[2022-08-01] MEDS: MORPHINE SULFATE 2 MG/ML SYRINGE IVP PRN ×7 (00:36→23:05)
[2022-08-01 05:58] LABS: Anisocytosis Slight; Basophils % (A) 0 %; Eosinophils % (A) 1 %; HGB 9.1 gm/dL (13.0-17.5); Lymphocytes % (A) 14 %; MCH 30.4 pg (25.0-35.0); MCHC 32.6 g/dL (31.0-37.0); MCV 93.2 fL (80.0-100.0); Macrocytosis Slight; Mean Platelet Volume 9.4; Monocytes # (A) 0.5 k/uL (0-1.0); Monocytes % (A) 7 %; Neutrophils % (A) 76 %; Platelet Count 103 k/uL (150-450); RDW 19.3 % (11.5-15.5); WBC 6.6 k/uL (3.8-10.6)
[2022-08-01 06:16] LABS: African American GFR (CKD) >90 (>60 ml/min/1.73 sqM); Anion Gap 3 mmol/L; Blood Urea Nitrogen 17 mg/dL (9-20); Calcium 7.7 mg/dL (8.4-10.2); Carbon Dioxide 23 mmol/L (22-30); Chloride 107 mmol/L (98-107); Glucose 124 mg/dL (74-99); Non-African American GFR(CKD) >90 (>60 ml/min/1.73 sqM); Sodium 133 mmol/L (137-145)
[2022-08-01] MEDS: OCTREOTIDE 500 MCG in SODIUM CHLORIDE 0.9% 250 ML IV SCH (07:24)
[2022-08-01] MEDS: LACTULOSE 20 GM/30 ML CUP PO SCH ×3 (07:46→19:57)
[2022-08-01] MEDS: PANTOPRAZOLE 40 MG/10 ML VIAL IVP SCH ×2 (07:47→19:53)
[2022-08-01] MEDS: FUROSEMIDE 40 MG TAB PO SCH (09:36)
[2022-08-01] MEDS: SPIRONOLACTONE 25 MG TAB PO SCH (09:36)
--- NOTE | 2022-08-01 10:27 | US ---
EXAMINATION TYPE: US abdomen limited DATE OF EXAM: 08/01/2022 COMPARISON: Ultrasound 2 days ago CLINICAL HISTORY: to assess for fluid pocket please. ascites. Swelling. Patient rotated towards left side. scanned all 4 abdominal quadrants. Moderate ascites noted IMPRESSION: As above. Moderate to severe intraperitoneal ascites remains present greatest in the jay jay ateral lower quadrants
--- NOTE | 2022-08-01 11:47 | US ---
Ultrasound-guided paracentesis. DATE OF EXAM: 08/01/2022 CLINICAL HISTORY: Ascites The procedure was discussed with the patient. The risks, complications, benefits, and alternatives we re discussed and any questions were answered. Informed consent was obtained. The patient was placed s upine on the ultrasound table and prepped and draped in the usual sterile fashion. All elements of maximal barrier technique were utilized. Under ultrasound guidance, access into the right lower quadrant was obtained, via the paracentesis catheter system and direct ultrasound guidanc e. The patient was stable throughout the procedure and remained stable upon discharge from Department of Radiology. IMPRESSION: Successful paracentesis under ultrasound guidance.
--- NOTE | 2022-08-01 13:15 | P.PN ---
Subjective Progress Note Date: 08/01/22 This is a 42-year-old male with previous history of alcoholism, history of cirrhosis of the liver, his last admission to the hospital with ascites and liver issues was back in April of this year. Patient was treated for his ascites with diuretics including Aldactone and Lasix. Has not had any further follow-up with gastroenterology since his last admission. Patient was followed up with his primary care physician at the [place] and he was set up to have paracentesis at the [facility] in [place]. Patient has been complaining of increased abdominal girth and increased abdominal fluid with distention, his last paracentesis was on 05/02/2022, and apparently at that time he had 5 L of fluid removed. In addition to his abdominal distention, patient was seen in the ER for vomiting blood. Before he arrived to the ER, he vomited apparently about 100 mL of blood, and he has been complaining of intermittent episodes of nausea and vomiting. Patient was never diagnosed as having esophageal varices in the past. However on admission his hemoglobin was noted to be 10.1, patient was also noted to have elevated INR of 1.8. Admitted to the floor after receiving 2 units of fresh was a plasma. Gastroenterology was consulted on this patient, and he underwent EGD by Dr. Keenan, mostly because of his initial complaint of hematemesis and 2 episodes of black tarry stools since admission. Patient was found to have significant amount of blood in the stomach, the amount was quite large, there was no evidence of gastric varices, but there was a large mid and distal esophageal varices with multiple red whale signs, patient underwent variceal ligation. Bleeding was basically controlled, patient was transferred to the ICU mostly because of the significant amount of blood noted during the EGD, and the fact that the patient went esophageal varices ligation. Patient will receive a unit of packed RBCs while in the ICU, and he was monitored closely. Hemoglobin now is 9.3, and another hemoglobin is pending in the next few hours. Patient denies drinking any alcohol since last April after his last admission. reevaluated today on07/30/2022, patient remains in the ICU, he had 12 L of fluid drained from his abdomen/ascites. Patient also received a unit of packed RBCs last night for drop in hemoglobin, and 2 units of fresh frozen plasma. Hemoglobin today is 7.1, and he may receive another unit of blood if he drops down further. Overall the bleeding does not seem to be very active and rather minimal. Nonetheless the patient will continue to be monitored in the ICU . Patient is on room air, blood pressure is 99/48 with a mean of 65.follow-up hemoglobin after I evaluated the patient today was 6.7 hence I ordered another unit of packed RBCs.basic metabolic profile is normal INR today is 1.6 Patient was reevaluated today on 07/31/2022, patient remains in the ICU, hemodynamically stable, not requiring any pressors, remains on octreotide, IV fluid at KVO, and I plan to transfer the patient out of the ICU if agreeable IV is discontinued. Hemoglobin today is 9.5. Has been relatively stable since yesterday. Patient received a total of 2 units of packed RBCs and 2 units of fresh femoral plasma since admission The patient is seen today 08/01/2022 in follow-up on the regular medical floor. He is currently resting in bed. Awake and alert in no acute distress. Maintaining O2 saturations in the 90s on room air. He did undergo another paracentesis today per interventional radiology. Cultures from previous fluid still pending. White count 6.6. Hemoglobin 9.1. Platelets 103. Sodium 133. Potassium 4.0. Bicarb 23. BUN 17. Creatinine 0.75. Glucose 124. Remains on lactulose. Remains on Levaquin. Objective - Vital Signs Vital signs: Vital Signs Temp 98.2 F 08/01/22 08:00 Pulse 88 08/01/22 12:57 Resp 16 08/01/22 12:33 BP 107/71 08/01/22 12:57 Pulse Ox 98 08/01/22 12:54 FiO2 Intake & Output 07/31/22 08/01/22 08/01/22 18:59 06:59 18:59 Intake Total 1186 20 Output Total 0 1 Balance 1186 19 Weight 102.2 kg Intake: IV 120 20 0.9 KVO 120 20 Oral 1066 Output: Urine 0 1 Other: Voiding Method Toilet Toilet Toilet Urinal Urinal Urinal # Voids 1 1 # Bowel Movements 1 0 - Exam GENERAL EXAM: Alert, 42-year-old male, on room air, comfortable in no apparent distress. HEAD: Normocephalic. EYES: Normal reaction of pupils, equal size. NOSE: Clear with pink turbinates. THROAT: No erythema or exudates. NECK: No masses, no JVD. CHEST: No chest wall deformity. LUNGS: Equal air entry with crackles in the bases. CVS: S1 and S2 normal with no audible murmur, regular rhythm. ABDOMEN: Distended, ascites. Normal bowel sounds, no guarding or rigidity. SPINE: No scoliosis or deformity SKIN: No rashes CENTRAL NERVOUS SYSTEM: No focal deficits, tone is normal in all 4 extremities. EXTREMITIES: There is no peripheral edema. No clubbing, no cyanosis. Peripheral pulses are intact. - Labs CBC & Chem 7: 08/01/22 05:15 08/01/22 05:15 Labs: Abnormal Lab Results - Last 24 Hours (Table) 08/01/22 08/01/22 Range/Units 05:15 05:15 RBC 3.00 L (4.30-5.90) m/uL Hgb 9.1 L (13.0-17.5) gm/dL Hct 28.0 L (39.0-53.0) % RDW 19.3 H (11.5-15.5) % Plt Count 103 L (150-450) k/uL Sodium 133 L (137-145) mmol/L Glucose 124 H (74-99) mg/dL Calcium 7.7 L (8.4-10.2) mg/dL Microbiology - Last 24 Hours (Table) 07/30/22 09:01 Gram Stain - Preliminary Paracentesis Fluid Body Fluid Culture - Preliminary Assessment and Plan Assessment: Acute upper GI bleeding secondary to esophageal varices secondary to alcohol liver disease and portal hypertension Alcohol liver disease Acute blood loss anemia and has received 2 units of packed red blood cells and 2 units of fresh frozen plasma thus far End-stage liver disease Ascites secondary to portal hypertension and liver cirrhosis, paracentesis performed on 07/31/2019 and 08/01/2022 per IR Bicytopenia secondary to alcohol use Hyperbilirubinemia secondary to liver cirrhosis Status post esophageal varices ligation on 07/29/2022 Status post paracentesis, 12 L of fluid removed from the peritoneal cavity today. Plan: The patient was seen and evaluated Currently stable and on room air Transferred out of the ICU yesterday We will see as needed I have personally seen and examined the patient, performed the documentation and the assessment and plan as written. Number of minutes spent on the visit: 10.
--- NOTE | 2022-08-01 15:00 | P.PN ---
Subjective Progress Note Date: 08/01/22 Principal diagnosis: Hematemesis, ascites Pleasant 42-year-old male who presented to the emergency department with complaints of abdominal pain/distention and vomiting blood 1 at 2 AM. He has a history of heavy alcohol abuse with cirrhosis of the liver. Patient was recently admitted and seen by gastroenterology for decompensated cirrhosis of liver with ascites in April of this year. He was started on spironolactone 100 mg daily and Lasix 40 mg daily. He has not followed up with gastroenterology as recommended. He has been following with his PCP through the [place] and states that he is supposed to be getting set up with a branch logistics supervisor and paracentesis through the [facility]. He states he's had increased abdominal distention, he is not sick help due to having his son in town for the last 2 weeks duration. He states he is taking his diuretics daily. He is not on any lactulose. Has no history of a GI bleed. States he does believe that he had an upper endoscopy done and Bandar Asher in March, unsure of results. Has chronic anemia likely secondary to underlying liver disease. Last paracentesis was 05/02/2022 with 5 L removed. He currently denies any nausea or vomiting. He denies any shortness of breath or chest pain. Complaints of abdominal discomfort and distention. Denies any fevers or chills. He's been afebrile. States that his home his bowel movements have been normal brown but here he stated he had 2 bowel movements which he states was somewhat of a maroon color. Imaging CT abdomen pelvis with contrast report severe intra-abdominal ascites even more prominent from prior. Underlying cirrhosis redemonstrated. No new findings otherwise. Labs WBC 5.9 hemoglobin 9.3 hematocrit 28 platelet count 91,000 INR 1.8 sodium 131 potassium 3.3 BUN 12 creatinine 0.6 glucose 118 total bilirubin 4.0 AST 50 ALT 27 alkaline phosphatase 100 lipase 45, ammonia level pending 07/30/2022: Patient seen and examined in the ICU. He is status post EGD with esophageal banding. EGD revealed large amount of fresh blood noted in the fund us of the stomach no evidence of gastric varices, large mid and distal esophageal varices with multiple red wheal signs status post variceal ligation. Patient was started on octreotide, Levaquin and lactulose. He is scheduled for paracentesis this morning. Has not had any further vomiting/hematemesis. Morning labs WBC 6.6 hemoglobin 7.7 hematocrit 21 platelet count 76,000 INR 1.6 sodium 132 potassium 4.1 BUN 21 creatinine 0.7 total bilirubin 3.8 AST 32 ALT 22 alkaline phosphatase 76 07/31/2022: Patient seen and examined in the ICU. Complaining of abdominal discomfort. Much of an appetite. Has tolerated clear liquid diet. Bowel movements have been normal, no further hematemesis. Hemoglobin stable at 9.5, platelet count 71,000 INR 1.8. Patient has been afebrile blood pressure 108/66 heart rate 84, oxygen saturation 94% on room air. 08/01/2022: Patient seen and examined in the ICU. He has been downgraded to [facility] waiting on a bed. States he is still feeling quite distended in the abdomen. No nausea or vomiting. No chest pain or shortness of breath. Denies any blood in his stool, no hematemesis. Hemoglobin stable at 9.1. Platelets 103,000. Objective - Vital Signs Vital signs: Vital Signs Temp 98.2 F 08/01/22 13:06 Pulse 94 08/01/22 13:51 Resp 16 08/01/22 12:33 BP 110/73 08/01/22 13:51 Pulse Ox 100 08/01/22 13:51 FiO2 Intake & Output 07/31/22 08/01/22 08/01/22 18:59 06:59 18:59 Intake Total 1186 20 Output Total 0 1 Balance 1186 19 Weight 102.2 kg Intake: IV 120 20 0.9 KVO 120 20 Oral 1066 Output: Urine 0 1 Other: Voiding Method Toilet Toilet Toilet Urinal Urinal Urinal # Voids 1 1 # Bowel Movements 1 0 - Exam General appearance: The patient is alert, oriented, appears in no acute distress. HET: Head is normocephalic and atraumatic. Conjunctiva pink. Sclera icteric. Neck: Supple without lymphadenopathy. Abdomen: Abdominal ascites, mildly tender to palpation. No guarding or rigidity. Extremities: Normal skin color and turgor. Bilateral pedal edema Skin: No rashes, jaundice. Neurological: No focal deficits. Alert and oriented. - Labs CBC & Chem 7: 08/01/22 05:15 08/01/22 05:15 Labs: Abnormal Lab Results - Last 24 Hours (Table) 08/01/22 08/01/22 Range/Units 05:15 05:15 RBC 3.00 L (4.30-5.90) m/uL Hgb 9.1 L (13.0-17.5) gm/dL Hct 28.0 L (39.0-53.0) % RDW 19.3 H (11.5-15.5) % Plt Count 103 L (150-450) k/uL Sodium 133 L (137-145) mmol/L Glucose 124 H (74-99) mg/dL Calcium 7.7 L (8.4-10.2) mg/dL Microbiology - Last 24 Hours (Table) 07/30/22 09:01 Anaerobic Culture - Preliminary Paracentesis Fluid 07/30/22 09:01 Gram Stain - Preliminary Paracentesis Fluid Body Fluid Culture - Preliminary Assessment and Plan (1) Hematemesis Narrative/Plan: 42-year-old male with a long-standing history of alcoholic cirrhosis of the liver presented to the hospital after having an episode of hematemesis this morning around 2 AM. Denies any previous history of upper GI bleed or esophageal varices. However he does state that he believes he had EGD done in March 2022 at [facility] which records are not available at this time. Patient came in with a hemoglobin of 10.1 with a repeat 29.3. No further episodes of hematemesis however he did state to maroon colored stools. Unclear etiology at this time however the patient's history and to consider portal hypertension and esophageal varices. We will proceed with EGD this afternoon. 07/30/2022: Patient status post EGD with findings of large amount of fresh blood in the fundus of stomach, no gastric varices, large mid and distal esophageal varices status post variceal ligation. No further active bleeding, no hematemesis, nausea or vomiting. Continue with octreotide for 2-3 more days, along with Levaquin 500 mg daily. Avoid any anticoagulation. Transfuse for hemoglobin less than 7. Current Visit: Yes Status: Acute Code(s): K92.0 - HEMATEMESIS SNOMED Code(s): 2488704 (2) Alcoholic cirrhosis of liver with ascites Narrative/Plan: Interventional radiology consulted for Paracentesis. Continue current diuretics patient scheduled for paracentesis today. Albumin ordered. Current Visit: No Status: Acute Code(s): K70.31 - ALCOHOLIC CIRRHOSIS OF LIVER WITH ASCITES SNOMED Code(s): 161008306 (3) Anemia Narrative/Plan: Patient with a history of iron deficiency anemia as well as history of thrombocytopenia related to underlying liver disease. Will proceed with endoscopic evaluation. Current Visit: No Status: Acute Code(s): D64.9 - ANEMIA, UNSPECIFIED SNOMED Code(s): 824172085 Plan: 1. Continue symptomatic and supportive care 2. Continue low-sodium diet 3. Avoid NSAIDs, anticoagulation 4. Protonix 40 mg daily 5. Status post EGD 6. Continue Lasix 40 mg daily and spironolactone 100 mg daily 7. Levaquin 500 mg IV daily for total of 5 days 8. Paracentesis ordered 9. Albumin ordered post paracentesis 10. Continue with alcohol abstinence 11. Discussed with patient importance of follow-up with gastroenterology for liver disease and ongoing paracentesis. Patient [facility] [place] Patient to follow-up with Dr. Negron within 1 week after discharge Thank you for allowing us to participate in the care of the patient, the GI service will sign off, gastroenterology will not be available at the hospital this weekend and through next week. If further evaluation by gastroenterology is required the patient will need transfer as per the primary team's discretion. Dr. Reinaldo Negron I agree with the dictator's note, documented as a scribe by Zuleyma Arriola.
[2022-08-01] MEDS: ALBUMIN HUMAN 25% 50 ML in EMPTY BAG 1 BAG IVPB SCH ×4 (16:10→17:37)
--- NOTE | 2022-08-01 17:05 | P.PN ---
Subjective Progress Note Date: 08/01/22 "42-year-old male with history of liver cirrhosis, decompensated, history of alcohol dependence, presenting with hematemesis and abdominal distention. Initially in the ED patient was afebrile, pulse at 98, respiratory rate 18, blood pressure 101/88, 95% on room air. Initial lab work showed hemoglobin of 10.1, platelet count 93, INR 1.8, potassium 3.3, creatinine 0.63. Patient was admitted for upper GI bleeding, with GI consultation. Patient was also admitted to the medical ICU. He is status post status post EGD. It showed large amount of fresh blood noted in the fundus of the stomach, no gastric varices, but does have mid and distal large esophageal varices status post variceal ligation. He is currently on octreotide drip. Also on IV antibiotics. He is also status post paracentesis. Due to ongoing blood loss anemia, he was transfused 2 units of PRBCs as well as 2 FFP." Continues to feel very weak Paracentesis ordered by GI, to receive IV albumin post-paracentesis Objective - Vital Signs Vital signs: Vital Signs Temp 98.2 F 08/01/22 13:06 Pulse 94 08/01/22 13:51 Resp 16 08/01/22 12:33 BP 110/73 08/01/22 13:51 Pulse Ox 100 08/01/22 13:51 FiO2 Intake & Output 07/31/22 08/01/22 08/01/22 18:59 06:59 18:59 Intake Total 1186 20 1200 Output Total 0 1 Balance 1186 19 1200 Weight 102.2 kg Intake: IV 120 20 0.9 KVO 120 20 Oral 1066 1200 Output: Urine 0 1 Other: Voiding Method Toilet Toilet Toilet Urinal Urinal Urinal # Voids 1 1 3 # Bowel Movements 1 0 - Exam Vitals Signs Reviewed. General: nontoxic, no distress, appears older than at stated age Derm: warm, dry, jaundice Head: atraumatic, normocephalic, symmetric Eyes: EOMI, no lid lag, scleral icterus Mouth: no lip lesion, mucus membranes moist Cardiovascular: S1S2 reg, no murmur Lungs: CTA bilateral, no rhonchi, no rales , no accessory muscle use Abdominal: soft, distended, nontender to palpation, no guarding, no appreciable organomegaly Ext: no gross muscle atrophy, no edema, no contractures Neuro: CN II-XI grossly intact, no focal neuro deficits Psych: Alert, oriented, appropriate affect Data Reviewed - Labs CBC & Chem 7: 08/01/22 05:15 08/01/22 05:15 Labs: Abnormal Lab Results - Last 24 Hours (Table) 08/01/22 08/01/22 Range/Units 05:15 05:15 RBC 3.00 L (4.30-5.90) m/uL Hgb 9.1 L (13.0-17.5) gm/dL Hct 28.0 L (39.0-53.0) % RDW 19.3 H (11.5-15.5) % Plt Count 103 L (150-450) k/uL Sodium 133 L (137-145) mmol/L Glucose 124 H (74-99) mg/dL Calcium 7.7 L (8.4-10.2) mg/dL Microbiology - Last 24 Hours (Table) 07/30/22 09:01 Anaerobic Culture - Preliminary Paracentesis Fluid 07/30/22 09:01 Gram Stain - Preliminary Paracentesis Fluid Body Fluid Culture - Preliminary Assessment and Plan Plan: Assessment and Plan: Seen by GI, paracentesis ordered Active: Acute blood loss anemia Acute esophageal variceal bleed status post ligation Decompensated liver cirrhosis History of alcohol dependence Thrombocytopenia Elevated INR -GI and 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 cutter apprentice following -Hemoglobin continue to down trend, received 2 units of FFP and 2 units of PRBCs, continue to monitor with CBC -IV Protonix 40 twice a day -On octreotide infusion at 50 mcg per hour -Levofloxacin 500 mg IV every 24 hours -Lactulose 30 g by mouth 3 times a day, Lasix 40 mg daily, spironolactone 100 mg daily -Needs close monitoring of electrolytes -On morphine 2 mg IV every 4 hours as needed for pain, avoid narcotics for pain if possible Resolved: Hypokalemia DVT ppx: SCD(no heparin ordered in view of elevated INR, and low platelet count) Code status: Full code Anticipated discharge place: Pending clinical course Anticipated discharge time: Pending clinical course
[2022-08-01] MEDS: ONDANSETRON 4 MG/2 ML VIAL IVP PRN ×2 (17:34→23:11)
[2022-08-01] MEDS: LEVOFLOXACIN 500MG-D5W PMX 500 MG in DEXTROSE/WATER 1 100ML.BAG IVPB SCH (17:47)
[2022-08-01] MEDS ORDERED: ONDANSETRON 4 MG/2 ML VIAL IVP STA (23:48)
[2022-08-02] MEDS: MORPHINE SULFATE 2 MG/ML SYRINGE IVP PRN ×4 (03:55→20:41)
[2022-08-02] MEDS ORDERED: guaiFENesin-DM 100-10MG/5ML 10 ML CUP PO PRN (04:40)
[2022-08-02] MEDS: ONDANSETRON 4 MG/2 ML VIAL IVP PRN ×3 (09:08→20:41)
[2022-08-02] MEDS: FUROSEMIDE 40 MG TAB PO SCH (09:15)
[2022-08-02] MEDS: SPIRONOLACTONE 25 MG TAB PO SCH (09:15)
[2022-08-02] MEDS: LACTULOSE 20 GM/30 ML CUP PO SCH ×3 (09:15→20:41)
[2022-08-02] MEDS: PANTOPRAZOLE 40 MG/10 ML VIAL IVP SCH ×2 (09:16→20:41)
[2022-08-02 10:13] LABS: Basophils # (A) 0.03 X 10*3/uL (0.00-0.10); Basophils % (A) 0.2 %; Eosinophils # (A) 0 X 10*3/uL (0.04-0.35); Eosinophils % (A) 0 %; HCT 28.3 % (39.6-50.0); HGB 8.9 g/dL (13.0-17.0); Immature Grans, Automated 0.7 %; Lymphocytes % (A) 12.5 %; MCH 29.3 pg (27.0-32.0); MCHC 31.4 g/dL (32.0-37.0); MCV 93.1 fL (80.0-97.0); Mean Platelet Volume 11.9 fL (9.5-12.2); Monocytes # (A) 1.45 X 10*3/uL (0.20-1.00); Monocytes % (A) 12.1 %; NRBC Per 100 WBC 0 /100 WBCS (0.0-0.0); Neutrophils # (A) 8.95 X 10*3/uL (1.80-7.70); Neutrophils % (A) 74.5 %; Platelet Count 168 X 10*3/uL (140-440); RBC 3.04 X 10*6/uL (4.40-5.60); RDW 20.1 % (11.5-14.5); WBC 12.01 X 10*3/uL (4.50-10.00)
[2022-08-02 11:17] LABS: Magnesium 2.3 mg/dL (1.5-2.4); Phosphorus 3.7 mg/dL (2.4-5.1)
[2022-08-02 12:05] LABS: African American GFR (CKD) 96.1 (60.0-200.0); Albumin 3.2 g/dL (3.8-4.9); Albumin/Globulin Ratio 1.39 (1.60-3.17); Anion Gap 10.4 mmol/L (10.00-18.00); BUN/Creat Ratio 22.73 Ratio (12.00-20.00); Calcium 8.2 mg/dL (8.7-10.3); Carbon Dioxide 20.6 mmol/L (20.0-27.5); Globulin 2.3 g/dL (1.6-3.3); Non-African American GFR(CKD) 82.9 (60.0-200.0); Potassium 4.2 mmol/L (3.5-5.5); Total Bilirubin 3.3 mg/dL (0.30-1.20); Total Protein 5.5 g/dL (6.2-8.2)
--- NOTE | 2022-08-02 13:06 | P.PN ---
Subjective Progress Note Date: 08/02/22 Hospital Course: 42-year-old male with history of liver cirrhosis, decompensated, history of alcohol dependence, presenting with hematemesis and abdominal distention. Initially in the ED patient was afebrile, pulse at 98, respiratory rate 18, blood pressure 101/88, 95% on room air. Initial lab work showed hemoglobin of 10.1, platelet count 93, INR 1.8, potassium 3.3, creatinine 0.63. Patient was admitted for upper GI bleeding, with GI consultation. Patient was also admitted to the medical ICU. He is status post status post EGD. It showed large amount of fresh blood noted in the fundus of the stomach, no gastric varices, but does have mid and distal large esophageal varices status post variceal ligation. He is currently on octreotide drip. Also on IV antibiotics. He is also status post paracentesis 2. Due to ongoing blood loss anemia, he was transfused 2 units of PRBCs as well as 2 FFP. Subjective: Patient seen and examined at bedside. He denies any further episodes of hematemesis. He claims that he feels extremely weak, unsure if he'll be able to go home on his home. He is still having occasional vomiting with food intake. He denies any chest pain, palpitations, shortness of breath, nausea or diarrhea, constipation, or urinary complaints. Pertinent positives and negatives as discussed above, a complete review of systems was performed and all other systems are negative. Vitals Signs Reviewed. General: nontoxic, no distress, appears older than at stated age Derm: warm, dry, jaundice Head: atraumatic, normocephalic, symmetric Eyes: EOMI, no lid lag, scleral icterus Mouth: no lip lesion, mucus membranes moist Cardiovascular: S1S2 reg, no murmur Lungs: CTA bilateral, no rhonchi, no rales , no accessory muscle use Abdominal: soft, distended, nontender to palpation, no guarding, no appreciable organomegaly Ext: no gross muscle atrophy, no edema, no contractures Neuro: CN II-XI grossly intact, no focal neuro deficits Psych: Alert, oriented, appropriate affect Data Reviewed Today: Pertinent Labs: WBC 12.01, hemoglobin 8.9, platelet 168, sodium 136, potassium 4.2, total bilirubin 3.3 Paracentesis Cultures negative growth to date Assessment and Plan: Active: Acute blood loss anemia, hemoglobin slowly down trending Acute esophageal variceal bleed status post ligation Decompensated liver cirrhosis, status post paracentesis 2 Leukocytosis, likely reactive History of alcohol dependence Elevated INR -GI and taxicab dispatcher following -Hemoglobin now slowly down trending -IV Protonix 40 twice a day -Octreotide infusion -Levofloxacin 500 mg IV every 24 hours -Lactulose 30 g by mouth 3 times a day, Lasix 40 mg daily, spironolactone 100 mg daily -Needs close monitoring of electrolytes -On morphine 2 mg IV every 3 hours as needed for pain, avoid narcotics for pain if possible Resolved: Hypokalemia Thrombocytopenia DVT ppx: SCD Code status: Full code Anticipated discharge place: Possible rehab versus home with home care Anticipated discharge time: Pending clinical course Objective - Vital Signs Vital signs: Vital Signs Temp 98.1 F 08/02/22 07:50 Pulse 96 08/02/22 07:50 Resp 18 08/02/22 07:50 BP 100/64 08/02/22 07:50 Pulse Ox 97 08/02/22 07:50 FiO2 Intake & Output 08/01/22 08/02/22 08/02/22 18:59 06:59 18:59 Intake Total 1200 Output Total 300 Balance 1200 -300 Intake: Oral 1200 Output: Emesis 300 Other: Voiding Method Toilet Toilet Urinal Urinal # Voids 3 200 - Labs CBC & Chem 7: 08/02/22 05:43 08/02/22 05:43 Labs: Abnormal Lab Results - Last 24 Hours (Table) 07/29/22 08/02/22 08/02/22 Range/Units 05:30 05:43 05:43 WBC 12.01 H (4.50-10.00) X 10*3/uL RBC 3.04 L (4.40-5.60) X 10*6/uL Hgb 8.9 L (13.0-17.0) g/dL Hct 28.3 L (39.6-50.0) % MCHC 31.4 L (32.0-37.0) g/dL RDW 20.1 H (11.5-14.5) % Immature Gran # 0.08 H (0.00-0.04) X 10*3/uL Neutrophils # 8.95 H (1.80-7.70) X 10*3/uL Monocytes # 1.45 H (0.20-1.00) X 10*3/uL Eosinophils # 0 L (0.04-0.35) X 10*3/uL BUN/Creatinine Ratio 22.73 H (12.00-20.00) Ratio Glucose 129 H (70-110) mg/dL Calcium 8.2 L (8.7-10.3) mg/dL Total Bilirubin 3.30 H (0.30-1.20) mg/dL Total Protein 5.5 L (6.2-8.2) g/dL Albumin 3.2 L (3.8-4.9) g/dL Albumin/Globulin Ratio 1.39 L (1.60-3.17) g/dL Crossmatch See Detail Microbiology - Last 24 Hours (Table) 07/30/22 09:01 Anaerobic Culture - Preliminary Paracentesis Fluid 07/30/22 09:01 Gram Stain - Preliminary Paracentesis Fluid Body Fluid Culture - Preliminary
[2022-08-02 14:15] LABS: INR 1.83 (0.90-1.11); Prothrombin Time 20.2 sec (9.9-11.9)
[2022-08-02] MEDS: LEVOFLOXACIN 500MG-D5W PMX 500 MG in DEXTROSE/WATER 1 100ML.BAG IVPB SCH (14:29)
[2022-08-02] MEDS: CALCIUM CARBONATE 500 MG CHEWABLE PO PRN (20:41)
[2022-08-03] MEDS: MORPHINE SULFATE 2 MG/ML SYRINGE IVP PRN ×3 (02:41→23:41)
[2022-08-03] MEDS: CALCIUM CARBONATE 500 MG CHEWABLE PO PRN (02:41)
[2022-08-03 06:41] LABS: Anisocytosis Moderate; Basophils % (A) 0 %; Eosinophils # (A) 0.1 k/uL (0-0.7); Eosinophils % (A) 1 %; HCT 24.4 % (39.0-53.0); HGB 7.9 gm/dL (13.0-17.5); Lymphocytes # (A) 1.8 k/uL (1.0-4.8); Lymphocytes % (A) 20 %; MCH 30.1 pg (25.0-35.0); MCHC 32.4 g/dL (31.0-37.0); Macrocytosis Slight; Mean Platelet Volume 9.5; Monocytes # (A) 0.8 k/uL (0-1.0); Monocytes % (A) 9 %; Neutrophils % (A) 67 %; Platelet Count 135 k/uL (150-450); RBC 2.62 m/uL (4.30-5.90); RDW 21.6 % (11.5-15.5)
[2022-08-03] MEDS: PANTOPRAZOLE 40 MG/10 ML VIAL IVP SCH ×2 (10:04→20:26)
[2022-08-03] MEDS: FUROSEMIDE 40 MG TAB PO SCH (10:05)
[2022-08-03] MEDS: LACTULOSE 20 GM/30 ML CUP PO SCH ×3 (10:05→20:29)
[2022-08-03] MEDS: SPIRONOLACTONE 25 MG TAB PO SCH (10:05)
--- NOTE | 2022-08-03 13:02 | P.PN ---
Subjective Progress Note Date: 08/03/22 Hospital Course: 42-year-old male with history of liver cirrhosis, decompensated, history of alcohol dependence, presenting with hematemesis and abdominal distention. Initially in the ED patient was afebrile, pulse at 98, respiratory rate 18, blood pressure 101/88, 95% on room air. Initial lab work showed hemoglobin of 10.1, platelet count 93, INR 1.8, potassium 3.3, creatinine 0.63. Patient was admitted for upper GI bleeding, with GI consultation. Patient was also admitted to the medical ICU. He is status post status post EGD. It showed large amount of fresh blood noted in the fundus of the stomach, no gastric varices, but does have mid and distal large esophageal varices status post variceal ligation. He is currently on octreotide drip. Also on IV antibiotics. He is also status post paracentesis 2. Due to ongoing blood loss anemia, he was transfused 2 units of PRBCs as well as 2 FFP. Subjective: Patient seen and examined at bedside. He denies any further episodes of hematemesis. He claims that he feels extremely weak, unsure if he'll be able to go home on his home. He is still having occasional vomiting with food intake. He denies any chest pain, palpitations, shortness of breath, nausea or diarrhea, constipation, or urinary complaints. Pertinent positives and negatives as discussed above, a complete review of systems was performed and all other systems are negative. Vitals Signs Reviewed. General: nontoxic, no distress, appears older than at stated age Derm: warm, dry, jaundice Head: atraumatic, normocephalic, symmetric Eyes: EOMI, no lid lag, scleral icterus Mouth: no lip lesion, mucus membranes moist Cardiovascular: S1S2 reg, systolic murmur Lungs: CTA bilateral, no rhonchi, no rales , no accessory muscle use Abdominal: soft, distended, nontender to palpation, no guarding, no appreciable organomegaly Ext: no gross muscle atrophy, no edema, no contractures Neuro: CN II-XI grossly intact, no focal neuro deficits Psych: Alert, oriented, appropriate affect Data Reviewed Today: Pertinent Labs: WBC 9.0, hemoglobin 7.9, platelet 135 Paracentesis Cultures negative growth to date Assessment and Plan: Active: Acute blood loss anemia, hemoglobin slowly down trending Acute esophageal variceal bleed status post ligation Decompensated liver cirrhosis, status post paracentesis 2 History of alcohol dependence Elevated INR -Hemoglobin now slowly down trending, repeat CBC tomorrow -IV Protonix 40 twice a day -Levofloxacin 500 mg IV every 24 hours -Lactulose 30 g by mouth 3 times a day, Lasix 40 mg daily, spironolactone 100 mg daily -On morphine 2 mg IV every 3 hours as needed for pain, avoid narcotics for pain if possible -Patient feels extremely weak, claims that he has difficulty getting out of the bed, needs further PT evaluation Resolved: Hypokalemia Thrombocytopenia Leukocytosis, likely reactive DVT ppx: SCD Code status: Full code Anticipated discharge place: Possible rehab versus home with home care Anticipated discharge time: Pending clinical course Objective - Vital Signs Vital signs: Vital Signs Temp 97.6 F 08/03/22 07:17 Pulse 85 08/03/22 07:17 Resp 18 08/03/22 10:00 BP 92/54 08/03/22 07:17 Pulse Ox 92 L 08/03/22 07:17 FiO2 Intake & Output 08/02/22 08/03/22 08/03/22 18:59 06:59 18:59 Output Total 350 Balance -350 Output: Urine 350 Other: Voiding Method Toilet Toilet Urinal Urinal # Voids 1 # Bowel Movements 1 - Labs CBC & Chem 7: 08/03/22 06:09 08/02/22 05:43 Labs: Abnormal Lab Results - Last 24 Hours (Table) 08/02/22 08/03/22 Range/Units 05:43 06:09 RBC 2.62 L (4.30-5.90) m/uL Hgb 7.9 L (13.0-17.5) gm/dL Hct 24.4 L (39.0-53.0) % RDW 21.6 H (11.5-15.5) % Plt Count 135 L (150-450) k/uL PT 20.2 H (9.9-11.9) sec INR 1.83 H (0.90-1.11) Microbiology - Last 24 Hours (Table) 07/30/22 09:01 Gram Stain - Preliminary Paracentesis Fluid Body Fluid Culture - Preliminary
[2022-08-03] MEDS ORDERED: traMADol 50 MG TAB PO STA (14:13)
[2022-08-03] MEDS: MIDODRINE 5 MG TAB PO SCH ×2 (14:37→18:08)
[2022-08-03] MEDS: LEVOFLOXACIN 500MG-D5W PMX 500 MG in DEXTROSE/WATER 1 100ML.BAG IVPB SCH (15:56)
[2022-08-03] MEDS ORDERED: MIDODRINE 5 MG TAB PO SCH (17:30)
[2022-08-04] MEDS: MORPHINE SULFATE 2 MG/ML SYRINGE IVP PRN ×7 (02:26→22:59)
[2022-08-04] MEDS: MIDODRINE 5 MG TAB PO SCH ×3 (06:47→17:28)
[2022-08-04] MEDS: LACTULOSE 20 GM/30 ML CUP PO SCH ×3 (08:34→19:59)
[2022-08-04] MEDS: SPIRONOLACTONE 25 MG TAB PO SCH (08:34)
[2022-08-04] MEDS: FUROSEMIDE 40 MG TAB PO SCH (08:34)
[2022-08-04] MEDS: PANTOPRAZOLE 40 MG/10 ML VIAL IVP SCH (08:34)
[2022-08-04 10:58] LABS: Magnesium 1.9 mg/dL (1.5-2.4)
[2022-08-04 11:09] LABS: African American GFR (CKD) 107.9 (60.0-200.0); Anion Gap 8.3 mmol/L (10.00-18.00); Calcium 8.1 mg/dL (8.7-10.3); Carbon Dioxide 21.7 mmol/L (20.0-27.5); Non-African American GFR(CKD) 93.1 (60.0-200.0); Potassium 3.8 mmol/L (3.5-5.5)
[2022-08-04 11:12] LABS: HCT 25.3 % (39.6-50.0); HGB 8.2 g/dL (13.0-17.0); MCH 31.5 pg (27.0-32.0); MCHC 32.4 g/dL (32.0-37.0); MCV 97.3 fL (80.0-97.0); Mean Platelet Volume 11.2 fL (9.5-12.2); NRBC Per 100 WBC 0 /100 WBCS (0.0-0.0); Platelet Count 166 X 10*3/uL (140-440); WBC 11.39 X 10*3/uL (4.50-10.00)
[2022-08-04 12:50] LABS: Basophils # (A) 0.04 X 10*3/uL (0.00-0.10); Basophils % (A) 0.4 %; Eosinophils # (A) 0.24 X 10*3/uL (0.04-0.35); Eosinophils % (A) 2.1 %; Immature Grans, Automated 1.3 %; Lymphocytes # (A) 2.42 X 10*3/uL (0.90-5.00); Lymphocytes % (A) 21.2 %; Monocytes # (A) 1.73 X 10*3/uL (0.20-1.00); Monocytes % (A) 15.2 %; Neutrophils # (A) 6.81 X 10*3/uL (1.80-7.70); Neutrophils % (A) 59.8 %
[2022-08-04 12:51] LABS: Anisocytosis (M) 2+; Crenated RBC 2+
--- NOTE | 2022-08-04 13:59 | P.PN ---
Subjective Progress Note Date: 08/04/22 Hospital Course: 42-year-old male with history of liver cirrhosis, decompensated, history of alcohol dependence, presenting with hematemesis and abdominal distention. Initially in the ED patient was afebrile, pulse at 98, respiratory rate 18, blood pressure 101/88, 95% on room air. Initial lab work showed hemoglobin of 10.1, platelet count 93, INR 1.8, potassium 3.3, creatinine 0.63. Patient was admitted for upper GI bleeding, with GI consultation. Patient was also admitted to the medical ICU. He is status post status post EGD. It showed large amount of fresh blood noted in the fundus of the stomach, no gastric varices, but does have mid and distal large esophageal varices status post variceal ligation. He is currently on octreotide drip. Also on IV antibiotics. He is also status post paracentesis 2. Due to ongoing blood loss anemia, he was transfused 2 units of PRBCs as well as 2 FFP. Hemoglobin is now stable. Patient is extremely weak and unable to take care of himself at home. Pending discharge to rehab facility. Subjective: Patient seen and examined at bedside. He denies any further episodes of hematemesis. He claims that he feels extremely weak, unsure if he'll be able to go home on his home. He denies any chest pain, palpitations, shortness of breath, nausea or diarrhea, constipation, or urinary complaints. Pertinent positives and negatives as discussed above, a complete review of systems was performed and all other systems are negative. Vitals Signs Reviewed. General: nontoxic, no distress, appears older than at stated age Derm: warm, dry, jaundice Head: atraumatic, normocephalic, symmetric Eyes: EOMI, no lid lag, scleral icterus Mouth: no lip lesion, mucus membranes moist Cardiovascular: S1S2 reg, systolic murmur Lungs: CTA bilateral, no rhonchi, no rales , no accessory muscle use Abdominal: soft, distended, nontender to palpation, no guarding, no appreciable organomegaly Ext: no gross muscle atrophy, no edema, no contractures Neuro: CN II-XI grossly intact, no focal neuro deficits Psych: Alert, oriented, appropriate affect Data Reviewed Today: Pertinent Labs: WBC 11.39, hemoglobin 8.2, platelet 166, sodium 132, creatinine 1.0, magnesium 1.9 Paracentesis Cultures negative growth to date Assessment and Plan: Active: Acute blood loss anemia, hemoglobin and stable Acute esophageal variceal bleed status post ligation Decompensated liver cirrhosis, status post paracentesis 2 Hypotension History of alcohol dependence Elevated INR Thrombocytopenia -Hemoglobin stable, no active bleeding -IV Protonix 40 twice a day transition to oral -Completed course of IV Levofloxacin for SBP prophylaxis -Lactulose 30 g by mouth 3 times a day, Lasix 40 mg daily, spironolactone 100 mg daily -On morphine 2 mg IV every 3 hours as needed for pain, avoid narcotics for pain if possible -Blood pressure now stable on midodrine 5 mg 3 times a day -Patient feels extremely weak pending discharge to rehab facility Resolved: Hypokalemia Leukocytosis, likely reactive DVT ppx: SCD Code status: Full code Anticipated discharge place: Subacute rehab Anticipated discharge time: Pending bed availability, likely tomorrow Objective - Vital Signs Vital signs: Vital Signs Temp 98.2 F 08/04/22 07:04 Pulse 67 08/04/22 07:04 Resp 16 08/04/22 08:33 BP 98/62 08/04/22 07:04 Pulse Ox 95 08/04/22 07:04 FiO2 Intake & Output 08/03/22 08/04/22 08/04/22 18:59 06:59 18:59 Intake Total 960 Output Total 675 650 Balance -675 310 Intake: Oral 960 Output: Urine 675 650 Other: Voiding Method Toilet Toilet Urinal Urinal # Voids 2 # Bowel Movements 2 - Labs CBC & Chem 7: 08/04/22 06:09 08/04/22 06:09 Labs: Abnormal Lab Results - Last 24 Hours (Table) 08/04/22 08/04/22 Range/Units 06:09 06:09 WBC 11.39 H (4.50-10.00) X 10*3/uL RBC 2.60 L (4.40-5.60) X 10*6/uL Hgb 8.2 L (13.0-17.0) g/dL Hct 25.3 L (39.6-50.0) % MCV 97.3 H (80.0-97.0) fL RDW 21.0 H (11.5-14.5) % Immature Gran # 0.15 H (0.00-0.04) X 10*3/uL Monocytes # 1.73 H (0.20-1.00) X 10*3/uL Sodium 132 L (135-145) mmol/L Anion Gap 8.30 L (10.00-18.00) mmol/L Calcium 8.1 L (8.7-10.3) mg/dL Microbiology - Last 24 Hours (Table) 07/30/22 09:01 Anaerobic Culture - Preliminary Paracentesis Fluid 07/30/22 09:01 Gram Stain - Final Paracentesis Fluid Body Fluid Culture - Final
[2022-08-04] MEDS: PANTOPRAZOLE 40 MG TABLET PO SCH (17:29)
[2022-08-05] MEDS: MORPHINE SULFATE 2 MG/ML SYRINGE IVP PRN ×6 (01:47→20:42)
[2022-08-05] MEDS: MIDODRINE 5 MG TAB PO SCH ×3 (06:12→17:09)
[2022-08-05] MEDS: PANTOPRAZOLE 40 MG TABLET PO SCH ×2 (06:12→17:09)
[2022-08-05] MEDS: FUROSEMIDE 40 MG TAB PO SCH (07:48)
[2022-08-05] MEDS: SPIRONOLACTONE 25 MG TAB PO SCH (07:48)
[2022-08-05] MEDS: LACTULOSE 20 GM/30 ML CUP PO SCH ×3 (07:49→20:41)
[2022-08-05] MEDS: CALCIUM CARBONATE 500 MG CHEWABLE PO PRN (08:55)
[2022-08-05 12:45] VITALS: BMI 30.5
--- NOTE | 2022-08-05 18:11 | P.PN ---
Subjective Progress Note Date: 08/05/22 42-year-old male with history of liver cirrhosis, decompensated, history of alcohol dependence, presenting with hematemesis and abdominal distention. Initially in the ED patient was afebrile, pulse at 98, respiratory rate 18, blood pressure 101/88, 95% on room air. Initial lab work showed hemoglobin of 10.1, platelet count 93, INR 1.8, potassium 3.3, creatinine 0.63. Patient was admitted for upper GI bleeding, with GI consultation. Patient was also admitted to the medical ICU. He is status post status post EGD. It showed large amount of fresh blood noted in the fundus of the stomach, no gastric varices, but does have mid and distal large esophageal varices status post variceal ligation. He is currently on octreotide drip. Also on IV antibiotics. He is also status post paracentesis 2. Due to ongoing blood loss anemia, he was transfused 2 units of PRBCs as well as 2 FFP. Hemoglobin is now stable. Patient is extremely weak and unable to take care of himself at home. Pending discharge to rehab facility. Patient seen and examined at bedside. He denies any further episodes of hem atemesis. He claims that he feels extremely weak. He reports diarrhea associated with the use of lactulose. General: nontoxic, no distress, appears older than at stated age Derm: warm, dry, jaundice Head: atraumatic, normocephalic, symmetric Eyes: EOMI, no lid lag, scleral icterus Mouth: no lip lesion, mucus membranes moist Cardiovascular: S1S2 reg, systolic murmur Lungs: CTA bilateral, no rhonchi, no rales , no accessory muscle use Abdominal: soft, distended, nontender to palpation, no guarding, no appreciable organomegaly Ext: no gross muscle atrophy, no edema, no contractures Neuro: no focal neuro deficits Psych: Alert, oriented, appropriate affect Active: Acute blood loss anemia, hemoglobin and stable Acute esophageal variceal bleed status post ligation Decompensated liver cirrhosis, status post paracentesis 2 Hypotension History of alcohol dependence Elevated INR Thrombocytopenia Resolved: Hypokalemia Leukocytosis, likely reactive Based on my assessment of this patient, this patient meets a moderate complexity level of care. I have reviewed the following statistical consultant notes: None. I have reviewed the results of the following tests: CBC shows leukocytosis of 11.39 and hemoglobin of 8.2. BMP shows sodium 132 and calcium of 8.1. Magnesium is 1.9. I have ordered the following tests: None. I have discussed the care of this patient with the following independent histor preston: None. I have independently interpreted the following test below: None. I have discussed the management of this patient with the following physician: None. This patient has a moderate risk of morbidity due to the following reasons: Patient has a new diagnosis of hematemesis in the setting of liver cirrhosis with esophageal varicies with uncertain prognosis. Hospital course as above. His hemoglobin has remained stable. PT and OT has evaluated the patient and recommends rehab. Case management on board. Lactulose dose decreased due to uncontrolled diarrhea. DVT ppx: SCD Code status: Full code Objective - Vital Signs Vital signs: Vital Signs Temp 98.3 F 08/05/22 14:00 Pulse 85 08/05/22 14:00 Resp 18 08/05/22 08:00 BP 91/50 08/05/22 14:00 Pulse Ox 96 08/05/22 14:00 FiO2 Intake & Output 08/04/22 08/05/22 08/05/22 18:59 06:59 18:59 Output Total 300 Balance -300 Weight 102.2 kg Output: Urine 300 Other: Voiding Method Toilet Urinal # Voids 4 1 # Bowel Movements 1 1 - Labs CBC & Chem 7: 08/04/22 06:09 08/04/22 06:09
[2022-08-06] MEDS: MORPHINE SULFATE 2 MG/ML SYRINGE IVP PRN ×4 (01:10→16:31)
[2022-08-06] MEDS: ONDANSETRON 4 MG/2 ML VIAL IVP PRN (01:10)
[2022-08-06] MEDS: CALCIUM CARBONATE 500 MG CHEWABLE PO PRN (06:27)
[2022-08-06] MEDS: PANTOPRAZOLE 40 MG TABLET PO SCH ×2 (08:02→16:31)
[2022-08-06] MEDS: LACTULOSE 20 GM/30 ML CUP PO SCH ×2 (08:02→16:15)
[2022-08-06] MEDS: MIDODRINE 5 MG TAB PO SCH ×3 (08:02→16:31)
[2022-08-06] MEDS: SPIRONOLACTONE 25 MG TAB PO SCH (08:02)
[2022-08-06] MEDS: FUROSEMIDE 40 MG TAB PO SCH (08:02)
--- NOTE | 2022-08-06 11:45 | P.DS ---
Providers Date of admission: 07/29/22 06:42 Expected date of discharge: 08/06/22 Attending physician: Alena Apple MD Consults: 07/29/22 06:42 Consult Physician Routine Consulting Provider: Gina Negron Consult Reason/Comments: Hematemesis, severe abdominal ascites Do you want consulting provider notified?: Yes, Notify in am Primary care physician: [facility] Hospital Course: 42-year-old male with history of liver cirrhosis, decompensated, history of alcohol dependence, presenting with hematemesis and abdominal distention. Initially in the ED patient was afebrile, pulse at 98, respiratory rate 18, blood pressure 101/88, 95% on room air. Initial lab work showed hemoglobin of 10.1, platelet count 93, INR 1.8, potassium 3.3, creatinine 0.63. Patient was admitted for upper GI bleeding, with GI consultation. Patient was also admitted to the medical ICU. He is status post status post EGD. It showed large amount of fresh blood noted in the fundus of the stomach, no gastric varices, but does have mid and distal large esophageal varices status post variceal ligation. He was on octreotide drip as well as Levofloxacin IV. He is also status post paracentesis 2. Due to ongoing blood loss anemia, he was transfused 2 units of PRBCs as well as 2 FFP. Hemoglobin is now stable. Patient is extremely weak and unable to take care of himself at home. Pending discharge to rehab facility. Patient seen and examined at bedside. He denies any further episodes of hematemesis. He claims that he feels extremely weak. His diarrhea has improved after Lactulose was decreased. Due to his hypotensive nature, Propranolol was not started. Patient is advised to follow up with his PCP within 1-2 days of discharge. He is advised to follow up with gastroentereology within 1 week of discharge. Pertient tests include CT AP, Abd US. Pertient procedures include EGD. General: nontoxic, no distress, appears older than at stated age Derm: warm, dry, jaundice Head: atraumatic, normocephalic, symmetric Eyes: EOMI, no lid lag, scleral icterus Mouth: no lip lesion, mucus membranes moist Cardiovascular: good distal perfusion in all 4 extremities Lungs: no accessory muscle use Ext: no gross muscle atrophy, no edema, no contractures Neuro: no focal neuro deficits Psych: Alert, oriented, appropriate affect Discharge Diagnosis: Acute blood loss anemia, hemoglobin and stable Acute esophageal variceal bleed status post ligation Decompensated liver cirrhosis, status post paracentesis 2 Hypotension History of alcohol dependence Elevated INR Thrombocytopenia Hypokalemia Leukocytosis, likely reactive This complex discharge took 35 minutes to complete. Patient Condition at Discharge: Stable Plan - Discharge Summary Discharge Rx Participant: No New Discharge Prescriptions: New Lactulose [Cephulac] 20 gm PO TID ml Midodrine [ProAmatine] 5 mg PO AC-TID tab Pantoprazole [Protonix] 40 mg PO AC-BID tab Calcium Carbonate [Tums] 500 mg PO QID PRN tab PRN Reason: Heartburn Continue Spironolactone [Aldactone] 100 mg PO DAILY #120 tab Furosemide [Lasix] 40 mg PO DAILY #30 tab Discharge Medication List Furosemide [Lasix] 40 mg PO DAILY #30 tab 05/04/22 [Rx] Spironolactone [Aldactone] 100 mg PO DAILY #120 tab 05/04/22 [Rx] Calcium Carbonate [Tums] 500 mg PO QID PRN tab 08/06/22 [Rx] Lactulose [Cephulac] 20 gm PO TID ml 08/06/22 [Rx] Midodrine [ProAmatine] 5 mg PO AC-TID tab 08/06/22 [Rx] Pantoprazole [Protonix] 40 mg PO AC-BID tab 08/06/22 [Rx] Follow up Appointment(s)/Referral(s): Gina Negron MD [STAFF PHYSICIAN] - 1 Week [facility], [NON-STAFF] - As Needed [facility] [Primary Care Provider] - 1-2 days Activity/Diet/Wound Care/Special Instructions: Diet: Regular Follow up with your PCP within 1-2 days of discharge. Follow up with Gastroenterology within 1 week of discharge. Take all medications as advised. Discharge Disposition: TRANSFER TO SNF/ECF
[2022-08-06 13:54] VITALS: BP 95/68; PULSE 80; RESP 16; TEMP 98
== END 2022-08-06 18:23 | DRG 369 ==
LOC: EC 03:23 → 3SCARD 06:42 → 2SICU 13:34 → 4SSUR 08-01 07:05
PROVIDERS: ADMIT Internal Medicine; ATTEND Internal Medicine
PROC: 06L38CZ Occlusion of Esophageal Vein with Extraluminal Device, Via Natural or Artificial Opening Endoscopic (ICD-10-PCS; 2022-07-29)
PROC: 30233K1 Transfusion of Nonautologous Frozen Plasma into Peripheral Vein, Percutaneous Approach (ICD-10-PCS; 2022-07-29)
PROC: 30233N1 Transfusion of Nonautologous Red Blood Cells into Peripheral Vein, Percutaneous Approach (ICD-10-PCS; 2022-07-29)
PROC: 0W9G3ZZ Drainage of Peritoneal Cavity, Percutaneous Approach (ICD-10-PCS; principal; 2022-07-30)
PROC: 0W9G3ZZ Drainage of Peritoneal Cavity, Percutaneous Approach (ICD-10-PCS; 2022-08-01)
DX: I85.11 Secondary esophageal varices with bleeding (principal); D62 Acute posthemorrhagic anemia; K76.6 Portal hypertension; K70.31 Alcoholic cirrhosis of liver with ascites; K72.10 Chronic hepatic failure without coma; D63.8 Anemia in other chronic diseases classified elsewhere; I95.9 Hypotension, unspecified; D69.59 Other secondary thrombocytopenia; F10.20 Alcohol dependence, uncomplicated; I10 Essential (primary) hypertension; R00.0 Tachycardia, unspecified; F17.210 Nicotine dependence, cigarettes, uncomplicated; E78.5 Hyperlipidemia, unspecified; Z88.6 Allergy status to analgesic agent; Z79.899 Other long term (current) drug therapy; G62.9 Polyneuropathy, unspecified; D75.89 Other specified diseases of blood and blood-forming organs; E87.6 Hypokalemia; D50.8 Other iron deficiency anemias; E80.6 Other disorders of bilirubin metabolism; Z28.310 Unvaccinated for COVID-19; R19.7 Diarrhea, unspecified; D72.828 Other elevated white blood cell count; R01.1 Cardiac murmur, unspecified
CPT/HCPCS: 36415; 43255; 49083; 74177; 76705; 80048; 80053; 82140; 82607; 82746; 83540; 83550; 83690; 83735; 83880; 84100; 84132; 84443; 84484; 85025; 85027; 85610; 85730; 86704; 86803; 86850; 86900; 86901; 86920; 87070; 87075; 87205; 87340; 93005; 96361; 96374; 96375; 99285

== ENCOUNTER 2022-08-08 02:20 | Emergency (ER) | payer OTHER ==
[2022-08-08 02:27] VITALS: TEMP 98.2
--- NOTE | 2022-08-08 02:51 | ED ---
General Adult HPI - General Chief complaint: Abdominal Pain Stated complaint: Abdominal Pain Time Seen by Provider: 08/08/22 02:26 Source: patient Mode of arrival: EMS - History of Present Illness Initial comments: This is a 42-year-old male with a past medical history including cirrhosis and severe abdominal ascites presented to the emergency department via EMS because "the patient needs an MRI because he would not be given any pain medications." EMS reported that the patient was called to come to the emergency Department because he had abdominal pain that needed pain medications however the patient's physician wanted an MRI performed any medications would be given therefore the patient needed be transported to the ER for evaluation. On arrival, the patient complained of abdominal pain. The patient was given 100 mcg of fentanyl en route via EMS. The patient himself stated that he had generalized abdominal pain that was worse today but did state that he was released from the hospital 2 days ago to [facility] for rehabilitation. The patient did state that he had a paracentesis 2 while in the hospital last week for a total of 24 L taken off. The patient himself denied any other acute pain or complaints other than the generalized abdominal pain. The patient denied nausea, vomiting as well as any fevers and chills. - Related Data Previous Rx's Medication Instructions Recorded Furosemide [Lasix] 40 mg PO DAILY #30 tab 05/04/22 Spironolactone [Aldactone] 100 mg PO DAILY #120 tab 05/04/22 Calcium Carbonate [Tums] 500 mg PO QID PRN tab 08/06/22 Lactulose [Cephulac] 20 gm PO TID ml 08/06/22 Midodrine [ProAmatine] 5 mg PO AC-TID tab 08/06/22 Pantoprazole [Protonix] 40 mg PO AC-BID tab 08/06/22 traMADol HCL 50 mg PO Q12H 3 Days #6 tab 08/08/22 Allergies Allergy/AdvReac Type Severity Reaction Status Date / Time ibuprofen [From Motrin] Allergy Swelling Verified 08/08/22 02:27 Lips naproxen Allergy Swelling Verified 08/08/22 02:27 Lips Review of Systems ROS Statement: Those systems with pertinent positive or pertinent negative responses have been documented in the HPI. ROS Other: All systems not noted in ROS Statement are negative. Past Medical History Past Medical History: Hyperlipidemia, Hypertension, Liver Disease, Pneumonia Additional Past Medical History / Comment(s): Alcoholism, past withdrawals with tremors/diaphoresis, elevated LFTs, alcoholic liver cirrhosis, ascities with paracentesis, severe sepsis/aspiration pneumonia, occasional upper back pain. History of Any Multi-Drug Resistant Organisms: None Reported Past Surgical History: No Surgical Hx Reported Additional Past Surgical History / Comment(s): Pt states he has never had surgery Past Anesthesia/Blood Transfusion Reactions: Unable to Obtain Additional Past Anesthesia/Blood Transfusion Reaction / Comment(s): Pt states he has never had surgery. Past Psychological History: Depression, PTSD Smoking Status: Current every day smoker Past Alcohol Use History: Abuse Past Drug Use History: None Reported - Past Family History Mother Family Medical History: Cancer Additional Family Medical History / Comment(s): Mother has colon cancer. Father History Unknown: Yes Additional Family Medical History / Comment(s): All pt knows about his father is that he is . General Exam Limitations: no limitations General appearance: alert, in no apparent distress Head exam: Present: atraumatic, normocephalic, normal inspection Eye exam: Present: normal appearance, PERRL Pupils: Present: normal accommodation ENT exam: Present: normal exam, normal oropharynx, mucous membranes moist Neck exam: Present: normal inspection, full ROM Respiratory exam: Present: normal lung sounds bilaterally Cardiovascular Exam: Present: regular rate, normal rhythm, normal heart sounds GI/Abdominal exam: Present: soft, distended (Significant abdominal distention secondary to abdominal ascites. There is an umbilical hernia present that is reproducible. Fluid wave positive) Extremities exam: Present: normal inspection, full ROM Back exam: Present: normal inspection, full ROM Neurological exam: Present: alert, oriented X3, CN II-XII intact Psychiatric exam: Present: normal affect, normal mood Skin exam: Present: warm, dry Course Vital Signs 08/08/22 08/08/22 08/08/22 02:21 04:29 04:33 Temperature 98.2 F Pulse Rate 77 82 Pulse Rate [ 82 Piecer Up ] Respiratory 18 16 16 Rate Blood Pressure 100/46 112/63 Blood Pressure 112/63 [Left Arm] O2 Sat by Pulse 99 100 Oximetry 08/08/22 08/08/22 05:24 05:25 Temperature Pulse Rate Pulse Rate [ 102 H 82 Piecer Up ] Respiratory 16 Rate Blood Pressure Blood Pressure [Left Arm] O2 Sat by Pulse Oximetry Medical Decision Making - Medical Decision Making Was pt. sent in by a medical professional or institution (TASHA Camejo, SENIOR SOFTWARE ENGINEER, urgent care, hospital, or shelter...) When possible be specific @ -Yes, shelter Did you speak to anyone other than the patient for history (EMS, parent, family, police, friend...)? What history was obtained from this source @ -Yes, EMS and nursing facility stated that the patient was sent in for "an MRI because the patient was not to be given pain medications." Did you review nursing and triage notes (agree or disagree)? Why? @ -I reviewed and agree with nursing and triage notes Were old charts reviewed (outside hosp., previous admission, EMS record, old EKG, old radiological studies, urgent care reports/EKG's, shelter records)? Report findings @ -No old charts were reviewed Differential Diagnosis (chest pain, altered mental status, abdominal pain women, abdominal pain men, vaginal bleeding, weakness, fever, dyspnea, syncope, hea dache, dizziness, GI bleed, back pain, seizure, CVA, palpatations, mental health)? @ -Acute abdominal pain, worsening abdominal ascites, SBP EKG interpreted by me (3pts min.). @ -None X-rays interpreted by me (1pt min.). @ -None done CT interpreted by me (1pt min.). @ -CT abdomen and pelvis with contrast was obtained and was interpreted by myself showing hepatic cirrhosis with large ascites. There was additional evidence of portal hypertension. There was evidence of hepatic colopathy. There was cholelithiasis. U/S interpreted by me (1pt. min.). @ -None done What testing was considered but not performed or refused? (CT, X-rays, U/S, labs)? Why? @ -None What meds were considered but not given or refused? Why? @ -None Did you discuss the management of the patient with other professionals (professionals i.e. TASHA Camejo, SENIOR SOFTWARE ENGINEER, lab, RT, psych nurse, 7th grade social studies teacher, jet man, teacher, classifications officer cc/cm, bilingual case manager)? Give summary @ -No Was smoking cessation discussed for >3mins.? @ -No Was critical care preformed (if so, how long)? @ -No Were there social determinants of health that impacted care today? How? (Homele ssness, low income, unemployed, alcoholism, drug addiction, transportation, low edu. Level, literacy, decrease access to med. care, alf, rehab)? @ -No Was there de-escalation of care discussed even if they declined (Discuss DNR or withdrawal of care, Hospice)? DNR status @ -No What co-morbidities impacted this encounter? (DM, HTN, Smoking, COPD, CAD, Cancer, CVA, ARF, Chemo, Hep., AIDS, mental health diagnosis, sleep apnea, morbid obesity)? @ -Severe liver cirrhosis with significant abdominal ascites Was patient admitted / discharged? Hospital course, mention meds given and rout e, prescriptions, significant lab abnormalities, going to OR and other pertinent info. @ -The patient was seen and evaluated emergency department. Physical exam, the patient was resting in bed without any acute distress. Vital signs admission to remain stable. Due to the nature the patient's complaints in the setting of the patient's reasoning for being sent into the emergency department, the patient did receive a computed tomography scan as an MRI was not possible in the emergency department. Computed tomography scan showed large abdominal ascites without any other significant pathology noted. The patient's laboratory workup also remained at his baseline. The patient did require one dose of pain medications in the emergency department and did state that his symptoms are greatly improved. On reevaluation, the patient was resting in bed comfortably. Due to the patient's negative workup, the patient was stable for discharge back to the nursing facility. Because the patient was sent and initially could see did not have any pain medications ordered, the patient did have tramadol prescription sent to the pharmacy that the shelter uses. Tramadol was jacob ected because the patient is ALLERGIC to NSAIDs and could not receive any Tylenol secondary to the patient's severe liver cirrhosis. The patient was told of this plan and was agreeable. The patient was discharged back to the nursing facility in stable condition. Undiagnosed new problem with uncertain prognosis? @ -No Drug Therapy requiring intensive monitoring for toxicity (Heparin, Nitro, Insulin, Cardizem)? @ -No Were any procedures done? @ -No Diagnosis/symptom? @ -Abdominal pain with significant abdominal ascites Acute, or Chronic, or Acute on Chronic? @ -Acute on Chronic Uncomplicated (without systemic symptoms) or Complicated (systemic symptoms)? @ -Complicated Side effects of treatment? @ -No Exacerbation, Progression, or Severe Exacerbation? @ -No Poses a threat to life or bodily function? How? (Chest pain, USA, ME, pneumonia, PE, COPD, DKA, ARF, appy, cholecystitis, CVA, Diverticulitis, Homicidal, Suicidal, threat to staff... and all critical care pts) @ -No - Lab Data Result diagrams: 08/08/22 02:37 08/08/22 02:37 Lab Results 08/08/22 08/08/22 Range/Units 02:37 02:37 WBC 9.2 (3.8-10.6) k/uL RBC 2.68 L (4.30-5.90) m/uL Hgb 8.2 L (13.0-17.5) gm/dL Hct 24.8 L (39.0-53.0) % MCV 92.7 (80.0-100.0) fL MCH 30.5 (25.0-35.0) pg MCHC 32.9 (31.0-37.0) g/dL RDW 19.5 H (11.5-15.5) % Plt Count 158 (150-450) k/uL MPV 8.1 Neutrophils % 72 % Lymphocytes % 13 % Monocytes % 10 % Eosinophils % 1 % Basophils % 1 % Neutrophils # 6.7 (1.3-7.7) k/uL Lymphocytes # 1.2 (1.0-4.8) k/uL Monocytes # 0.9 (0-1.0) k/uL Eosinophils # 0.1 (0-0.7) k/uL Basophils # 0.1 (0-0.2) k/uL Hypochromasia Slight Poikilocytosis Slight Anisocytosis Slight Macrocytosis Slight Sodium 126 L (137-145) mmol/L Potassium 4.3 (3.5-5.1) mmol/L Chloride 102 (98-107) mmol/L Carbon Dioxide 17 L (22-30) mmol/L Anion Gap 7 mmol/L BUN 23 H (9-20) mg/dL Creatinine 0.93 (0.66-1.25) mg/dL Est GFR (CKD-EPI)AfAm >90 (>60 ml/min/1.73 sqM) Est GFR (CKD-EPI)NonAf >90 (>60 ml/min/1.73 sqM) Glucose 118 H (74-99) mg/dL Calcium 7.4 L (8.4-10.2) mg/dL Magnesium 2.0 (1.6-2.3) mg/dL Total Bilirubin 2.4 H (0.2-1.3) mg/dL AST 34 (17-59) U/L ALT 22 (4-49) U/L Alkaline Phosphatase 104 (38-126) U/L Total Protein 6.5 (6.3-8.2) g/dL Albumin 2.7 L (3.5-5.0) g/dL Lipase 280 (23-300) U/L Disposition Clinical Impression: Abdominal pain, Ascites Disposition: HOME SELF-CARE Condition: Stable Instructions (If sedation given, give patient instructions): Abdominal Pain (ED) Prescriptions: traMADol HCL 50 mg PO Q12H 3 Days #6 tab Is patient prescribed a controlled substance at d/c from ED?: Yes When asked, does pt state using other controlled substances?: No If prescribed controlled substance>3 days was MAPS reviewed?: Prescribed <3 Days If opioid is for acute pain is fill amount 7 days or less?: Yes If Rx opioid, was Start Talking consent form obtained?: Yes Referrals: [facility],Clinic [Primary Care Provider] - 1-2 days Time of Disposition: 06:20
[2022-08-08 02:59] LABS: Anisocytosis Slight; Basophils # (A) 0.1 k/uL (0-0.2); Basophils % (A) 1 %; Eosinophils # (A) 0.1 k/uL (0-0.7); Eosinophils % (A) 1 %; HCT 24.8 % (39.0-53.0); HGB 8.2 gm/dL (13.0-17.5); Hypochromasia Slight; Lymphocytes # (A) 1.2 k/uL (1.0-4.8); Lymphocytes % (A) 13 %; MCH 30.5 pg (25.0-35.0); MCHC 32.9 g/dL (31.0-37.0); MCV 92.7 fL (80.0-100.0); Macrocytosis Slight; Mean Platelet Volume 8.1; Monocytes # (A) 0.9 k/uL (0-1.0); Monocytes % (A) 10 %; Neutrophils # (A) 6.7 k/uL (1.3-7.7); Neutrophils % (A) 72 %; Platelet Count 158 k/uL (150-450); Poikilocytosis Slight; RBC 2.68 m/uL (4.30-5.90); RDW 19.5 % (11.5-15.5); WBC 9.2 k/uL (3.8-10.6)
[2022-08-08 03:20] LABS: ALT 22 U/L (4-49); AST 34 U/L (17-59); African American GFR (CKD) >90 (>60 ml/min/1.73 sqM); Albumin 2.7 g/dL (3.5-5.0); Alkaline Phosphatase 104 U/L (38-126); Anion Gap 7 mmol/L; Blood Urea Nitrogen 23 mg/dL (9-20); Calcium 7.4 mg/dL (8.4-10.2); Carbon Dioxide 17 mmol/L (22-30); Chloride 102 mmol/L (98-107); Glucose 118 mg/dL (74-99); Lipase 280 U/L (23-300); Non-African American GFR(CKD) >90 (>60 ml/min/1.73 sqM); Potassium 4.3 mmol/L (3.5-5.1); Sodium 126 mmol/L (137-145); Total Bilirubin 2.4 mg/dL (0.2-1.3); Total Protein 6.5 g/dL (6.3-8.2)
[2022-08-08 04:32] VITALS: BP 112/63; RESP 16
[2022-08-08] MEDS: MORPHINE SULFATE 4 MG/ML SYRINGE IVP STA (04:32)
[2022-08-08] MEDS: fentaNYL (PF) 50 MCG/ML 2 ML AMP IV ONE (04:40)
[2022-08-08 05:26] VITALS: PULSE 82
--- NOTE | 2022-08-08 06:13 | CT ---
EXAMINATION TYPE: CT abdomen pelvis w con CT DLP: 1920 mGycm, Automated exposure control for dose reduction was used. DATE OF EXAM: 08/08/2022 2:57 AM COMPARISON: CT abdomen pelvis most recent from 12/15/2021 CLINICAL INDICATION:Male, 42 years old with history of Abdominal pain; TECHNIQUE: Axial CT of the abdomen and pelvis. Sagittal and coronal reformats were created on a [employer] workstation. Contrast used: 100 cc of Isovue-300. Oral contrast used: None FINDINGS: LOWER CHEST: Unremarkable ABDOMEN LIVER: Nodular contour to liver. GALLBLADDER AND BILE DUCTS: Layering increased densities within the lumen consistent with gallstones are present. PANCREAS: Unremarkable. SPLEEN: Spleen is enlarged measuring 14.2 cm in caudocranial dimension. ADRENAL GLANDS: Unremarkable. KIDNEYS AND URETERS: No evidence of hydronephrosis or renal calculus. The ureters are unremarkable. PELVIS BLADDER: Unremarkable REPRODUCTIVE: Unremarkable. ABDOMEN & PELVIS STOMACH AND BOWEL: No evidence of bowel obstruction. Thickening of the colon is present. PERITONEUM/RETROPERITONEUM: No evidence of pneumoperitoneum. There is a large time of ascites. VASCULATURE: No evidence of aortic aneurysm. There is recanalization of paraumbilical vein and upper abdominal varices. MUSCULOSKELETAL: No acute osseous abnormalities LYMPH NODES: No gross evidence for lymphadenopathy. SOFT TISSUE/ABDOMINAL WALL: Left fluid containing inguinal hernia. Containing umbilical hernia. IMPRESSION: 1. Hepatic cirrhosis with large ascites. Additional evidence of portal hypertension. 2. Evidence of hepatic colopathy 3. Cholelithiasis.
== END 2022-08-08 07:31 | disposition home or self-care (01) ==
LOC: EC 02:20
DX: K74.60 Unspecified cirrhosis of liver (principal); K76.6 Portal hypertension; K80.20 Calculus of gallbladder without cholecystitis without obstruction; I10 Essential (primary) hypertension; E78.5 Hyperlipidemia, unspecified; F32.A Depression, unspecified; F17.200 Nicotine dependence, unspecified, uncomplicated; Z79.899 Other long term (current) drug therapy; Z88.6 Allergy status to analgesic agent; Z88.8 Allergy status to other drugs, medicaments and biological substances
CPT/HCPCS: 36415; 80053; 83690; 83735; 85025; 74177; 99285; 96374; J3010; Q9967

== ENCOUNTER 2022-09-01 12:04 | Day surgery (SDC) | payer OTHER ==
[2022-09-01 13:05] VITALS: TEMP 98.4
[2022-09-01] MEDS: ALBUMIN HUMAN 25% 50 ML in EMPTY BAG 1 BAG IVPB SCH ×4 (13:14→14:18)
[2022-09-01 13:15] LABS: Mean Platelet Volume 8.2; Platelet Count 174 k/uL (150-450)
[2022-09-01 13:21] LABS: INR 1.4 (<1.2); Prothrombin Time 14.4 sec (9.0-12.0)
[2022-09-01 13:24] LABS: African American GFR (CKD) >90 (>60 ml/min/1.73 sqM); Non-African American GFR(CKD) >90 (>60 ml/min/1.73 sqM)
[2022-09-01 14:11] VITALS: RESP 16
--- NOTE | 2022-09-01 15:46 | US ---
Ultrasound-guided paracentesis. DATE OF EXAM: 09/01/2022 CLINICAL HISTORY: Ascites The procedure was discussed with the patient. The risks, complications, benefits, and alternatives we re discussed and any questions were answered. Informed consent was obtained. The patient was placed s upine on the ultrasound table and prepped and draped in the usual sterile fashion. All elements of maximal barrier technique were utilized. Under ultrasound guidance, access into the right lower quadrant was obtained, via the paracentesis catheter system and direct ultrasound guidanc e. Approximately 13 liters of straw-colored fluid was removed. The patient was stable throughout the pro cedure and remained stable upon discharge from Department of Radiology. IMPRESSION: Successful paracentesis under ultrasound guidance.
[2022-09-01 15:47] VITALS: BP 103/64; PULSE 82
== END 2022-09-01 15:55 | disposition home or self-care (01) ==
LOC: RADPROMAIN 12:04
PROVIDERS: ATTEND Family Medicine
DX: R18.8 Other ascites (principal)
CPT/HCPCS: 82565; 85049; 85610; 36415; 49083; P9047

== ENCOUNTER 2022-10-05 04:53 | Emergency (ER) | payer OTHER ==
[2022-10-05] MEDS ORDERED: MORPHINE SULFATE 4 MG/ML SYRINGE IVP STA (05:49)
--- NOTE | 2022-10-05 05:54 | ED ---
General Adult HPI - General Source: patient, EMS Mode of arrival: EMS Limitations: no limitations <Shady Bullock - Last Filed: 10/05/22 06:46> <Luis Bell - Last Filed: 10/05/22 09:25> - General Chief complaint: Abdominal Pain Stated complaint: Abdominal Ascietes Time Seen by Provider: 10/05/22 05:07 - History of Present Illness Initial comments: This is a 42-year-old male with a past medical history including severe abdominal ascites secondary to cirrhosis presents emergency department via EMS for continued ascites and left inguinal abdominal pain. The patient stated that he missed his paracentesis 2 weeks ago secondary to difficulties with getting a ride. The patient stated that he had continued and worsening swelling and pain in the left inguinal area that he stated has been present since he got out of metal lodged however worsened over the last 1 week. The patient stated that he had continued pain that was his baseline. The patient denied any nausea, vomiting, fevers and chills. (Shady Bullock) - Related Data Home Medications Medication Instructions Recorded Confirmed Buprenorphine [Butrans 10 MCG/HOUR] 10 mcg PO WEEKLY 08/21/22 09/16/22 Cyanocobalamin (Vitamin B-12) 500 mcg PO DAILY 08/21/22 09/16/22 [Vitamin B-12] Thiamine [Vitamin B-1] 100 mg PO DAILY 08/21/22 09/16/22 traMADol HCL 60 mg PO Q12H 08/21/22 09/16/22 Multivitamins, Thera [Multivitamin 1 tab PO DAILY 09/01/22 09/16/22 (formulary)] Ondansetron [Zofran] 4 mg PO Q8HR PRN 09/01/22 09/16/22 Midodrine [ProAmatine] 5 mg PO DAILY 09/16/22 09/16/22 Previous Rx's Medication Instructions Recorded Furosemide [Lasix] 40 mg PO DAILY #30 tab 05/04/22 Spironolactone [Aldactone] 100 mg PO DAILY #120 tab 05/04/22 Calcium Carbonate [Tums] 500 mg PO QID PRN tab 08/06/22 Lactulose [Cephulac] 20 gm PO TID ml 08/06/22 Pantoprazole [Protonix] 40 mg PO AC-BID tab 08/06/22 Furosemide [Lasix] 40 mg PO DAILY #10 tablet 10/05/22 Potassium Chloride ER [K-Dur 20] 20 meq PO DAILY #10 tab 10/05/22 Allergies Allergy/AdvReac Type Severity Reaction Status Date / Time ibuprofen [From Motrin] Allergy Swelling Verified 09/01/22 13:05 Lips naproxen Allergy Swelling Verified 09/01/22 13:05 Lips Review of Systems ROS Other: All systems not noted in ROS Statement are negative. <Shady Bullock - Last Filed: 10/05/22 06:46> ROS Other: All systems not noted in ROS Statement are negative. <Luis Bell - Last Filed: 10/05/22 09:25> ROS Statement: Those systems with pertinent positive or pertinent negative responses have been documented in the HPI. Past Medical History Past Medical History: Hyperlipidemia, Hypertension, Liver Disease, Pneumonia Additional Past Medical History / Comment(s): Alcoholism, past withdrawals with tremors/diaphoresis, elevated LFTs, alcoholic liver cirrhosis, ascities with paracentesis, severe sepsis/aspiration pneumonia, occasional upper back pain. History of Any Multi-Drug Resistant Organisms: None Reported Past Surgical History: No Surgical Hx Reported Additional Past Surgical History / Comment(s): Pt states he has never had surgery Past Anesthesia/Blood Transfusion Reactions: Unable to Obtain Additional Past Anesthesia/Blood Transfusion Reaction / Comment(s): Pt states he has never had surgery. Past Psychological History: Depression, PTSD Smoking Status: Current every day smoker Past Alcohol Use History: Abuse Past Drug Use History: None Reported - Past Family History Mother Family Medical History: Cancer Additional Family Medical History / Comment(s): Mother has colon cancer. Father History Unknown: Yes Additional Family Medical History / Comment(s): All pt knows about his father is that he is . <Shady Bullock - Last Filed: 10/05/22 06:46> General Exam Limitations: no limitations General appearance: alert, in no apparent distress Head exam: Present: atraumatic, normocephalic, normal inspection Eye exam: Present: normal appearance, PERRL Pupils: Present: normal accommodation ENT exam: Present: normal exam, normal oropharynx, mucous membranes moist Neck exam: Present: normal inspection, full ROM Respiratory exam: Present: normal lung sounds bilaterally Cardiovascular Exam: Present: regular rate, normal rhythm, normal heart sounds GI/Abdominal exam: Present: distended (Generalized distention with fluid wave present), hernia (Reducible umbilical hernia present. Tender to palpation swelling in the left inguinal region) Extremities exam: Present: normal inspection, full ROM, normal capillary refill Back exam: Present: normal inspection, full ROM Neurological exam: Present: alert, oriented X3, CN II-XII intact Psychiatric exam: Present: normal affect, normal mood Skin exam: Present: warm, dry <Shady Bullock - Last Filed: 10/05/22 06:46> Course Vital Signs 10/05/22 10/05/22 10/05/22 04:56 06:29 07:10 Temperature 97.9 F Pulse Rate 100 87 88 Respiratory 22 20 20 Rate Blood Pressure 122/69 117/74 119/72 O2 Sat by Pulse 99 99 96 Oximetry Medical Decision Making - Lab Data Result diagrams: 10/05/22 06:20 <Shady Bullock - Last Filed: 10/05/22 06:46> - Lab Data Result diagrams: 10/05/22 06:20 10/05/22 06:20 <Luis Bell - Last Filed: 10/05/22 09:25> - Medical Decision Making Was pt. sent in by a medical professional or institution (TASHA Camejo, PLASMA TABLE OPERATOR, urgent care, hospital, or fci...) When possible be specific @ -No Did you speak to anyone other than the patient for history (EMS, parent, family, police, friend...)? What history was obtained from this source @ -No Did you review nursing and triage notes (agree or disagree)? Why? @ -I reviewed and agree with nursing and triage notes Were old charts reviewed (outside hosp., previous admission, EMS record, old EKG, old radiological studies, urgent care reports/EKG's, fci records)? Report findings @ -No old charts were reviewed Differential Diagnosis (chest pain, altered mental status, abdominal pain women, abdominal pain men, vaginal bleeding, weakness, fever, dyspnea, syncope, headache, dizziness, GI bleed, back pain, seizure, CVA, palpatations, mental health)? @ -Abdominal ascites, incarcerated inguinal hernia, strangulated inguinal hernia EKG interpreted by me (3pts min.). @ -None X-rays interpreted by me (1pt min.). @ -None done CT interpreted by me (1pt min.). @ -CT abdomen and pelvis was obtained and was pending at this time. U/S interpreted by me (1pt. min.). @ -None done What testing was considered but not performed or refused? (CT, X-rays, U/S, labs)? Why? @ -None What meds were considered but not given or refused? Why? @ -None Did you discuss the management of the patient with other professionals (professionals i.e. , PA, PLASMA TABLE OPERATOR, lab, RT, psych nurse, vp digital marketing social media and crm, sweep press operator, teacher, business services officer, welfare case worker)? Give summary @ -No Was smoking cessation discussed for >3mins.? @ -No Was critical care preformed (if so, how long)? @ -No Were there social determinants of health that impacted care today? How? (Homelessness, low income, unemployed, alcoholism, drug addiction, transpor tation, low edu. Level, literacy, decrease access to med. care, care home, rehab)? @ -No Was there de-escalation of care discussed even if they declined (Discuss DNR or withdrawal of care, Hospice)? DNR status @ -No What co-morbidities impacted this encounter? (DM, HTN, Smoking, COPD, CAD, Cancer, CVA, ARF, Chemo, Hep., AIDS, mental health diagnosis, sleep apnea, morbid obesity)? @ -Abdominal ascites, liver cirrhosis Was patient admitted / discharged? Hospital course, mention meds given and route, prescriptions, significant lab abnormalities, going to OR and other pertinent info. @ -The patient was seen and evaluated emergency department. Physical exam, the patient was resting in bed with only minor distress noted secondary to the patient's abdominal pain and inguinal hernia pain. Physical exam is demonstrated a tender to palpation hernia over the left inguinal space without difficulty at reducing. Due to the patient's abdominal ascites in the setting of worsening inguinal hernia, CT abdomen and pelvis was obtained. The patient was sent out to Dr. Bell at 0700 pending completion of the workup. The patient was sent out in stable condition. Undiagnosed new problem with uncertain prognosis? @ -No Drug Therapy requiring intensive monitoring for toxicity (Heparin, Nitro, Insulin, Cardizem)? @ -No Were any procedures done? @ -No Diagnosis/symptom? @ -default Acute, or Chronic, or Acute on Chronic? @ -default Uncomplicated (without systemic symptoms) or Complicated (systemic symptoms)? @ -default Side effects of treatment? @ -No Exacerbation, Progression, or Severe Exacerbation? @ -No Poses a threat to life or bodily function? How? (Chest pain, [place], [place], pneumonia, PE, COPD, DKA, ARF, appy, cholecystitis, CVA, Diverticulitis, Homicidal, Suicidal, threat to staff... and all critical care pts) @ -No (Shady Bullock) CAT scan was interpreted by myself which shows no acute normalities it does show quite a bit of ascites. I went in and reexamined the patient I was able to reduce the hernia without problem. Patient was feeling better he was just concerned about the hernia getting larger. Patient did miss his last pa racentesis and he is scheduled for another one this week. Patient states he needs some Lasix to the ran out of that as well. Patient will follow-up with primary medical care doctor. Patient has no abdominal pain at this time (Luis Bell) - Lab Data Lab Results 10/05/22 10/05/22 10/05/22 Range/Units 06:20 06:20 08:05 WBC 5.7 (3.8-10.6) k/uL RBC 3.36 L (4.30-5.90) m/uL Hgb 8.5 L (13.0-17.5) gm/dL Hct 27.2 L (39.0-53.0) % MCV 81.1 D (80.0-100.0) fL MCH 25.2 (25.0-35.0) pg MCHC 31.1 (31.0-37.0) g/dL RDW 18.7 H (11.5-15.5) % Plt Count 125 L (150-450) k/uL MPV 8.1 Neutrophils % 60 % Lymphocytes % 27 % Monocytes % 7 % Eosinophils % 3 % Basophils % 1 % Neutrophils # 3.4 (1.3-7.7) k/uL Lymphocytes # 1.6 (1.0-4.8) k/uL Monocytes # 0.4 (0-1.0) k/uL Eosinophils # 0.2 (0-0.7) k/uL Basophils # 0.0 (0-0.2) k/uL Hypochromasia Slight Anisocytosis Slight Microcytosis Slight Sodium 131 L (137-145) mmol/L Potassium 3.3 L (3.5-5.1) mmol/L Chloride 103 (98-107) mmol/L Carbon Dioxide 22 (22-30) mmol/L Anion Gap 6 mmol/L BUN 15 (9-20) mg/dL Creatinine 0.72 (0.66-1.25) mg/dL Est GFR (CKD-EPI)AfAm >90 (>60 ml/min/1.73 sqM) Est GFR (CKD-EPI)NonAf >90 (>60 ml/min/1.73 sqM) Glucose 100 H (74-99) mg/dL Calcium 7.9 L (8.4-10.2) mg/dL Magnesium 1.7 (1.6-2.3) mg/dL Total Bilirubin 1.6 H (0.2-1.3) mg/dL AST 31 (17-59) U/L ALT 18 (4-49) U/L Alkaline Phosphatase 73 (38-126) U/L Total Protein 7.1 (6.3-8.2) g/dL Albumin 2.9 L (3.5-5.0) g/dL Lipase 81 (23-300) U/L Urine Color Yellow Urine Appearance Clear (Clear) Urine pH 5.0 (5.0-8.0) Ur Specific Viking 1.014 (1.001-1.035) Urine Protein Negative (Negative) Urine Glucose (UA) Negative (Negative) Urine Ketones Negative (Negative) Urine Blood Negative (Negative) Urine Nitrite Negative (Negative) Urine Bilirubin Negative (Negative) Urine Urobilinogen <2.0 (<2.0) mg/dL Ur Leukocyte Esterase Negative (Negative) Disposition <Shady Bullock - Last Filed: 10/05/22 06:46> Is patient prescribed a controlled substance at d/c from ED?: No Time of Disposition: : <Luis Bell - Last Filed: 10/05/22 09:25> Clinical Impression: Cirrhosis, Ascites, Inguinal hernia Disposition: HOME SELF-CARE Condition: Good Additional Instructions: Patient is to follow-up with his primary medical care doctor. Patient is to get his paracentesis done as scheduled. Patient should take Lasix as prescribed Prescriptions: Potassium Chloride ER [K-Dur 20] 20 meq PO DAILY #10 tab Furosemide [Lasix] 40 mg PO DAILY #10 tablet Referrals: [facility],Clinic [Primary Care Provider] - 1-2 days
[2022-10-05 06:30] VITALS: RESP 20
[2022-10-05 06:42] LABS: ALT 18 U/L (4-49); AST 31 U/L (17-59); African American GFR (CKD) >90 (>60 ml/min/1.73 sqM); Albumin 2.9 g/dL (3.5-5.0); Alkaline Phosphatase 73 U/L (38-126); Anion Gap 6 mmol/L; Blood Urea Nitrogen 15 mg/dL (9-20); Calcium 7.9 mg/dL (8.4-10.2); Carbon Dioxide 22 mmol/L (22-30); Chloride 103 mmol/L (98-107); Glucose 100 mg/dL (74-99); Lipase 81 U/L (23-300); Magnesium 1.7 mg/dL (1.6-2.3); Non-African American GFR(CKD) >90 (>60 ml/min/1.73 sqM); Potassium 3.3 mmol/L (3.5-5.1); Sodium 131 mmol/L (137-145); Total Bilirubin 1.6 mg/dL (0.2-1.3); Total Protein 7.1 g/dL (6.3-8.2)
[2022-10-05 06:52] LABS: Anisocytosis Slight; Basophils % (A) 1 %; Eosinophils # (A) 0.2 k/uL (0-0.7); Eosinophils % (A) 3 %; HCT 27.2 % (39.0-53.0); HGB 8.5 gm/dL (13.0-17.5); Hypochromasia Slight; Lymphocytes # (A) 1.6 k/uL (1.0-4.8); Lymphocytes % (A) 27 %; MCH 25.2 pg (25.0-35.0); MCHC 31.1 g/dL (31.0-37.0); Mean Platelet Volume 8.1; Microcytosis Slight; Monocytes # (A) 0.4 k/uL (0-1.0); Monocytes % (A) 7 %; Neutrophils # (A) 3.4 k/uL (1.3-7.7); Neutrophils % (A) 60 %; Platelet Count 125 k/uL (150-450); RBC 3.36 m/uL (4.30-5.90); RDW 18.7 % (11.5-15.5); WBC 5.7 k/uL (3.8-10.6)
[2022-10-05 07:05] LABS: MCV 81.1 fL (80.0-100.0)
[2022-10-05 08:15] LABS: Appearance,Urine Clear (Clear); Bilirubin,Urine Negative (Negative); Blood,Urine Negative (Negative); Color,Urine Yellow; Glucose,Urine (UA) Negative (Negative); Ketones,Urine Negative (Negative); Leukocyte Esterase,Urine Negative (Negative); Nitrite,Urine Negative (Negative); Protein,Urine Negative (Negative); Specific Gravity,Urine 1.014 (1.001-1.035); Urobilinogen,Urine <2.0 mg/dL (<2.0)
--- NOTE | 2022-10-05 08:15 | XR ---
EXAMINATION TYPE: XR chest 2V DATE OF EXAM: 10/05/2022 COMPARISON: 05/05/2022 HISTORY: 42-year-old male chest pain TECHNIQUE: AP and lateral views FINDINGS: Markedly diminished lung volumes. This results in crowding of the vasculature and bandlike opacities likely representing atelectasis. No sizable pleural effusion. Heart overall normal size. IMPRESSION: Exam is very limited due to expiratory imaging. Opacities favored to represent bands of atelectasis. Consider repeat with adequate inspiratory effort.
--- NOTE | 2022-10-05 08:59 | CT ---
EXAMINATION TYPE: CT abdomen pelvis w con DATE OF EXAM: 10/05/2022 COMPARISON: 08/08/2022 HISTORY: 42-year-old male Left inguinal pain, rule out incarceration TECHNIQUE: Contiguous axial scanning of the abdomen and pelvis following administration of 100 ml Iso luis 300 IV contrast. Delayed images through the kidneys and coronal/sagittal reconstructions perform ed. CT DLP: 2012.1 mGycm Automated exposure control for dose reduction was used. FINDINGS: Heart normal size without pericardial effusion. Moderate to large bilateral gynecomastia. P rominent bands of atelectasis in the lower lungs without pleural effusion. Tiny hiatal hernia. Nodular, cirrhotic morphology of the liver. No definite abnormal enhancing lesion identified in the l iver. Layering gallstones. Very large abdominal pelvic ascites, increased even more from 08/08/2022. Ascites distending the kaci ent's umbilical hernia up to 12.6 cm craniocaudal and 7.8 cm wide (11.4 x 7.5 cm, previously). Portal venous system is patent. Adrenal glands, kidneys, and pancreas show no gross abnormality. However, no excretion of contrast on the delayed kidney images. Spleen enlarged at 15.6 cm. No dilated small bowel or free air. Large ascites fluid continues to extend across a left indirect hernia. Distention measures up to 10.9 cm long and 5.7 cm wide. This is in comparison to 5.3 x 4.2 cm, previously. Bladder urine distended. Sigmoid diverticulosis. Mild overall stool burden. Bones: Osseous process. IMPRESSION: 1. MASSIVE ABDOMINOPELVIC ASCITES, INCREASED EVEN FURTHER FROM 08/08/2022 DESPITE THE INTERVAL PARACEN TESIS. 2. ASCITES FLUID EXTENDS ACROSS AN INDIRECT LEFT INGUINAL HERNIA. THE FLUID DISTENTION OF THE HERNIA IS NOW INCREASED WELL UP TO 10.9 X 5.7 CM. THIS IS IN COMPARISON TO 5.3 X 4.2 CM, PREVIOUSLY. 3. CIRRHOSIS. PORTAL VENOUS HYPERTENSION WITH ASCITES AND SPLENOMEGALY AT 15.6 CM.
[2022-10-05] MEDS ORDERED: POTASSIUM CHLORIDE ER 20 MEQ TAB.ER PO STA (09:20)
[2022-10-05 09:44] VITALS: BP 115/74; PULSE 83; TEMP 98
== END 2022-10-05 09:52 | disposition home or self-care (01) ==
LOC: EC 04:53
DX: K74.60 Unspecified cirrhosis of liver (principal); R18.8 Other ascites; K40.90 Unilateral inguinal hernia, without obstruction or gangrene, not specified as recurrent; K76.6 Portal hypertension; I10 Essential (primary) hypertension; F32.A Depression, unspecified; F17.200 Nicotine dependence, unspecified, uncomplicated; Z79.899 Other long term (current) drug therapy; Z88.6 Allergy status to analgesic agent; Z88.8 Allergy status to other drugs, medicaments and biological substances
CPT/HCPCS: 36415; 80053; 83690; 83735; 85025; 81003; 71046; 74177; 99285; 96374; J2270; Q9967

== ENCOUNTER 2022-10-29 02:21 | Emergency (ER) | payer OTHER ==
[2022-10-29 04:03] LABS: ALT 17 U/L (4-49); AST 35 U/L (17-59); African American GFR (CKD) >90 (>60 ml/min/1.73 sqM); Albumin 2.7 g/dL (3.5-5.0); Alkaline Phosphatase 90 U/L (38-126); Anion Gap 9 mmol/L; Blood Urea Nitrogen 21 mg/dL (9-20); Calcium 7.5 mg/dL (8.4-10.2); Carbon Dioxide 18 mmol/L (22-30); Chloride 103 mmol/L (98-107); Glucose 114 mg/dL (74-99); Non-African American GFR(CKD) 79 (>60 ml/min/1.73 sqM); Potassium 3.6 mmol/L (3.5-5.1); Sodium 130 mmol/L (137-145); Total Bilirubin 1.8 mg/dL (0.2-1.3); Total Protein 6.9 g/dL (6.3-8.2)
[2022-10-29 04:33] LABS: Anisocytosis Moderate; Basophils % (A) 0 %; Eosinophils # (A) 0.2 k/uL (0-0.7); Eosinophils % (A) 3 %; HCT 27.7 % (39.0-53.0); HGB 8.8 gm/dL (13.0-17.5); Hypochromasia Slight; Lymphocytes # (A) 1.3 k/uL (1.0-4.8); Lymphocytes % (A) 23 %; MCH 26.7 pg (25.0-35.0); MCHC 31.6 g/dL (31.0-37.0); MCV 84.4 fL (80.0-100.0); Mean Platelet Volume 8.9; Microcytosis Slight; Monocytes # (A) 0.4 k/uL (0-1.0); Monocytes % (A) 7 %; Neutrophils # (A) 3.6 k/uL (1.3-7.7); Neutrophils % (A) 64 %; Platelet Count 139 k/uL (150-450); RBC 3.28 m/uL (4.30-5.90); RDW 20.7 % (11.5-15.5); WBC 5.6 k/uL (3.8-10.6)
[2022-10-29] MEDS ORDERED: HYDROcodone/APAP 5-325MG 1 EACH TAB PO STA (05:41)
[2022-10-29] MEDS ORDERED: MORPHINE SULFATE 4 MG/ML SYRINGE IV STA (05:42)
--- NOTE | 2022-10-29 07:29 | ED ---
Abdominal Pain HPI - General Source: EMS Mode of arrival: EMS Limitations: no limitations - History of Present Illness MD Complaint: abdominal pain -: days(s) Location: diffuse Radiation: none Migration to: no migration Severity: moderate Quality: aching, fullness Consistency: constant Improves With: nothing Worsens With: nothing <Benito Do - Last Filed: 10/29/22 07:30> <Luis Restrepo - Last Filed: 10/29/22 16:17> - General Chief Complaint: Abdominal Pain Stated Complaint: Abd pain Time Seen by Provider: 10/29/22 02:23 - History of Present Illness Initial Comments: This patient is a 42-year-old man who presents to have evaluation for abdominal pain. The patient states she believes that it is due to his ascites reaccumulating. He states he has been requiring more frequent paracentesis, but due to transportation issues he has not been able to get to the hospital to have this performed. He states that the ascites has reached the stage that it is now starting to go cause some swelling of his legs. No dyspnea. He has not noted fever or chills. No change in urination or bowel movements. (Benito Do) - Related Data Home Medications Medication Instructions Recorded Confirmed Buprenorphine [Butrans 10 MCG/HOUR] 10 mcg PO WEEKLY 08/21/22 09/16/22 Cyanocobalamin (Vitamin B-12) 500 mcg PO DAILY 08/21/22 09/16/22 [Vitamin B-12] Thiamine [Vitamin B-1] 100 mg PO DAILY 08/21/22 09/16/22 traMADol HCL 60 mg PO Q12H 08/21/22 09/16/22 Multivitamins, Thera [Multivitamin 1 tab PO DAILY 09/01/22 09/16/22 (formulary)] Ondansetron [Zofran] 4 mg PO Q8HR PRN 09/01/22 09/16/22 Midodrine [ProAmatine] 5 mg PO DAILY 09/16/22 09/16/22 Previous Rx's Medication Instructions Recorded Furosemide [Lasix] 40 mg PO DAILY #30 tab 05/04/22 Spironolactone [Aldactone] 100 mg PO DAILY #120 tab 05/04/22 Calcium Carbonate [Tums] 500 mg PO QID PRN tab 08/06/22 Lactulose [Cephulac] 20 gm PO TID ml 08/06/22 Pantoprazole [Protonix] 40 mg PO AC-BID tab 08/06/22 Furosemide [Lasix] 40 mg PO DAILY #10 tablet 10/05/22 Potassium Chloride ER [K-Dur 20] 20 meq PO DAILY #10 tab 10/05/22 Allergies Allergy/AdvReac Type Severity Reaction Status Date / Time ibuprofen [From Motrin] Allergy Swelling Verified 09/01/22 13:05 Lips naproxen Allergy Swelling Verified 09/01/22 13:05 Lips Review of Systems ROS Other: All systems not noted in ROS Statement are negative. Constitutional: Denies: fever, chills, weakness Respiratory: Denies: cough, dyspnea Cardiovascular: Denies: chest pain, palpitations Gastrointestinal: Reports: abdominal pain. Denies: nausea, vomiting, diarrhea Musculoskeletal: Denies: back pain Skin: Denies: rash Neurological: Denies: headache, weakness, numbness <Benito Do - Last Filed: 10/29/22 07:30> ROS Other: All systems not noted in ROS Statement are negative. <Luis Restrepo - Last Filed: 10/29/22 16:17> ROS Statement: Those systems with pertinent positive or pertinent negative responses have been documented in the HPI. Past Medical History Past Medical History: Hyperlipidemia, Hypertension, Liver Disease, Pneumonia Additional Past Medical History / Comment(s): Alcoholism, past withdrawals with tremors/diaphoresis, elevated LFTs, alcoholic liver cirrhosis, ascities with paracentesis, severe sepsis/aspiration pneumonia, occasional upper back pain. History of Any Multi-Drug Resistant Organisms: None Reported Past Surgical History: No Surgical Hx Reported Additional Past Surgical History / Comment(s): Pt states he has never had surgery Past Anesthesia/Blood Transfusion Reactions: Unable to Obtain Additional Past Anesthesia/Blood Transfusion Reaction / Comment(s): Pt states he has never had surgery. Past Psychological History: Depression, PTSD Smoking Status: Current every day smoker Past Alcohol Use History: Abuse Past Drug Use History: None Reported - Past Family History Mother Family Medical History: Cancer Additional Family Medical History / Comment(s): Mother has colon cancer. Father History Unknown: Yes Additional Family Medical History / Comment(s): All pt knows about his father is that he is . <Benito Do Filed: 10/29/22 07:30> General Exam Limitations: no limitations General appearance: alert, in no apparent distress Head exam: Present: atraumatic, normocephalic Eye exam: Present: normal appearance. Absent: scleral icterus, conjunctival injection Neck exam: Present: normal inspection Respiratory exam: Present: normal lung sounds bilaterally. Absent: respiratory distress, wheezes, rales, rhonchi, stridor Cardiovascular Exam: Present: regular rate, normal rhythm, normal heart sounds. Absent: systolic murmur, diastolic murmur, rubs, gallop GI/Abdominal exam: Present: soft, other (Moderate amount of ascites present, no tenderness or guarding. There is hernia that is soft and nontender). Absent: distended, tenderness, guarding, rebound, rigid, mass Extremities exam: Present: normal inspection, normal capillary refill. Absent: pedal edema, calf tenderness Back exam: Present: normal inspection Neurological exam: Present: alert Skin exam: Present: warm, dry, intact, normal color. Absent: rash <Benito Do Filed: 10/29/22 07:30> General appearance: alert, in no apparent distress Head exam: Present: atraumatic, normocephalic, normal inspection Eye exam: Present: normal appearance, PERRL, EOMI. Absent: scleral icterus, conjunctival injection, periorbital swelling ENT exam: Present: normal exam, mucous membranes moist Neck exam: Present: normal inspection. Absent: tenderness, meningismus, lymphadenopathy Respiratory exam: Present: normal lung sounds bilaterally. Absent: respiratory distress, wheezes, rales, rhonchi, stridor Cardiovascular Exam: Present: regular rate, normal rhythm, normal heart sounds. Absent: systolic murmur, diastolic murmur, rubs, gallop, clicks GI/Abdominal exam: Present: soft, normal bowel sounds. Absent: distended, tenderness, guarding, rebound, rigid Extremities exam: Present: normal inspection, full ROM, normal capillary refill. Absent: tenderness, pedal edema, joint swelling, calf tenderness Back exam: Present: normal inspection Neurological exam: Present: alert, oriented X3, CN II-XII intact Psychiatric exam: Present: normal affect, normal mood Skin exam: Present: warm, dry, intact, normal color. Absent: rash <Luis Restrepo Last Filed: 10/29/22 16:17> Course <Luis Restrepo - Last Filed: 10/29/22 16:17> Vital Signs 10/29/22 10/29/22 10/29/22 02:23 04:27 07:21 Temperature 97.8 F 97.6 F Pulse Rate 96 70 87 Respiratory 22 18 20 Rate Blood Pressure 113/78 110/62 112/63 O2 Sat by Pulse 96 95 97 Oximetry 10/29/22 10/29/22 10/29/22 09:07 10:27 11:17 Temperature Pulse Rate 86 85 Respiratory 20 20 Rate Blood Pressure 108/68 96/47 99/52 O2 Sat by Pulse 95 95 96 Oximetry 10/29/22 10/29/22 10/29/22 13:01 13:45 14:16 Temperature Pulse Rate 80 85 81 Respiratory 20 16 15 Rate Blood Pressure 106/64 91/50 89/54 O2 Sat by Pulse 96 96 95 Oximetry 10/29/22 10/29/22 10/29/22 14:32 14:49 15:11 Temperature Pulse Rate 79 80 73 Respiratory 15 15 16 Rate Blood Pressure 109/69 114/74 96/61 O2 Sat by Pulse 96 96 96 Oximetry 10/29/22 15:23 Temperature Pulse Rate 74 Respiratory 16 Rate Blood Pressure 100/63 O2 Sat by Pulse 96 Oximetry - Reevaluation(s) Reevaluation #1: 10/29/22 16:00 Medical record is reviewed (Luis Restrepo) Reevaluation #2: 10/29/22 16:00 Patient informed results and questions answered (Luis Restrepo) Reevaluation #3: 10/29/22 16:00 Patient symptoms improved (Luis Restrepo) Medical Decision Making - Lab Data Result diagrams: 10/29/22 02:55 10/29/22 02:55 <Benito Do - Last Filed: 10/29/22 07:30> - Lab Data Result diagrams: 10/29/22 02:55 10/29/22 02:55 <Luis Restrepo - Last Filed: 10/29/22 16:17> - Medical Decision Making This patient is a 42-year-old man here due to abdominal pain that appears to be related to accumulation of ascites fluid. He states he is having transportation difficulties and not able to get to the hospital therefore will attempt to have interventional radiology perform a paracentesis at to give symptomatic relief, and then may be stable to continue as outpatient. (Benito Do) 42 male to the emergency department for evaluation. Patient presents today for evaluation regards to abdominal pain for ascites with paracentesis, patient has therapeutic paracentesis here in the ER can be discharged home (Luis Restrepo) - Lab Data Lab Results 10/29/22 10/29/22 10/29/22 Range/Units 02:55 02:55 03:36 WBC 5.6 (3.8-10.6) k/uL RBC 3.28 L (4.30-5.90) m/uL Hgb 8.8 L (13.0-17.5) gm/dL Hct 27.7 L (39.0-53.0) % MCV 84.4 (80.0-100.0) fL MCH 26.7 (25.0-35.0) pg MCHC 31.6 (31.0-37.0) g/dL RDW 20.7 H (11.5-15.5) % Plt Count 139 L (150-450) k/uL MPV 8.9 Neutrophils % 64 % Lymphocytes % 23 % Monocytes % 7 % Eosinophils % 3 % Basophils % 0 % Neutrophils # 3.6 (1.3-7.7) k/uL Lymphocytes # 1.3 (1.0-4.8) k/uL Monocytes # 0.4 (0-1.0) k/uL Eosinophils # 0.2 (0-0.7) k/uL Basophils # 0.0 (0-0.2) k/uL Hypochromasia Slight Anisocytosis Moderate Microcytosis Slight PT (9.0-12.0) sec INR (<1.2) APTT (22.0-30.0) sec Sodium 130 L (137-145) mmol/L Potassium 3.6 (3.5-5.1) mmol/L Chloride 103 (98-107) mmol/L Carbon Dioxide 18 L (22-30) mmol/L Anion Gap 9 mmol/L BUN 21 H (9-20) mg/dL Creatinine 1.15 (0.66-1.25) mg/dL Est GFR (CKD-EPI)AfAm >90 (>60 ml/min/1.73 sqM) Est GFR (CKD-EPI)NonAf 79 (>60 ml/min/1.73 sqM) Glucose 114 H (74-99) mg/dL Calcium 7.5 L (8.4-10.2) mg/dL Total Bilirubin 1.8 H (0.2-1.3) mg/dL AST 35 (17-59) U/L ALT 17 (4-49) U/L Alkaline Phosphatase 90 (38-126) U/L Ammonia 35 H (<30) umol/L Total Protein 6.9 (6.3-8.2) g/dL Albumin 2.7 L (3.5-5.0) g/dL /09/16 Range/Units 09:06 WBC (3.8-10.6) k/uL RBC (4.30-5.90) m/uL Hgb (13.0-17.5) gm/dL Hct (39.0-53.0) % MCV (80.0-100.0) fL MCH (25.0-35.0) pg MCHC (31.0-37.0) g/dL RDW (11.5-15.5) % Plt Count (150-450) k/uL MPV Neutrophils % % Lymphocytes % % Monocytes % % Eosinophils % % Basophils % % Neutrophils # (1.3-7.7) k/uL Lymphocytes # (1.0-4.8) k/uL Monocytes # (0-1.0) k/uL Eosinophils # (0-0.7) k/uL Basophils # (0-0.2) k/uL Hypochromasia Anisocytosis Microcytosis PT 15.6 H (9.0-12.0) sec INR 1.6 H (<1.2) APTT 33.0 H (22.0-30.0) sec Sodium (137-145) mmol/L Potassium (3.5-5.1) mmol/L Chloride (98-107) mmol/L Carbon Dioxide (22-30) mmol/L Anion Gap mmol/L BUN (9-20) mg/dL Creatinine (0.66-1.25) mg/dL Est GFR (CKD-EPI)AfAm (>60 ml/min/1.73 sqM) Est GFR (CKD-EPI)NonAf (>60 ml/min/1.73 sqM) Glucose (74-99) mg/dL Calcium (8.4-10.2) mg/dL Total Bilirubin (0.2-1.3) mg/dL AST (17-59) U/L ALT (4-49) U/L Alkaline Phosphatase (38-126) U/L Ammonia (<30) umol/L Total Protein (6.3-8.2) g/dL Albumin (3.5-5.0) g/dL Disposition <Benito Do - Last Filed: 10/29/22 07:30> Is patient prescribed a controlled substance at d/c from ED?: No Time of Disposition: 16:00 <Luis Restrepo - Last Filed: 10/29/22 16:17> Clinical Impression: Alcoholic cirrhosis of liver with ascites, Abdominal pain, Alcoholic liver disease, Ascites Disposition: HOME SELF-CARE Condition: Good Instructions (If sedation given, give patient instructions): Ascites (ED), Paracentesis (DC) Referrals: [facility],Clinic [Primary Care Provider] - 1-2 days
[2022-10-29 09:35] LABS: INR 1.6 (<1.2); Prothrombin Time 15.6 sec (9.0-12.0)
[2022-10-29] MEDS ORDERED: MORPHINE SULFATE 4 MG/ML SYRINGE IVP STA (12:54)
[2022-10-29] MEDS: ALBUMIN HUMAN 25% 50 ML in EMPTY BAG 1 BAG IVPB SCH ×4 (14:28→14:58)
--- NOTE | 2022-10-29 15:56 | US ---
Ultrasound-guided paracentesis. DATE OF EXAM: 10/29/2022 CLINICAL HISTORY: Ascites The procedure was discussed with the patient. The risks, complications, benefits, and alternatives we re discussed and any questions were answered. Informed consent was obtained. The patient was placed s upine on the ultrasound table and prepped and draped in the usual sterile fashion. All elements of maximal barrier technique were utilized. Under ultrasound guidance, access into the right lower quadrant was obtained, via the paracentesis catheter system and direct ultrasound guidanc e. Approximately 13 liters of straw-colored fluid was removed. The patient was stable throughout the pro cedure and remained stable upon discharge from Department of Radiology. IMPRESSION: Successful paracentesis under ultrasound guidance.
[2022-10-29 16:30] VITALS: BP 81/38; PULSE 88; RESP 20; TEMP 97
== END 2022-10-29 16:30 | disposition home or self-care (01) ==
LOC: EC 02:21
DX: K70.31 Alcoholic cirrhosis of liver with ascites (principal); R10.9 Unspecified abdominal pain; I10 Essential (primary) hypertension; F32.A Depression, unspecified; F17.200 Nicotine dependence, unspecified, uncomplicated; Z88.5 Allergy status to narcotic agent; Z88.8 Allergy status to other drugs, medicaments and biological substances; Z79.899 Other long term (current) drug therapy
CPT/HCPCS: 99285; 96365; 96375; 96376; 36415; 80053; 82140; 85025; 85610; 85730; 49083; J2270; P9047

== ENCOUNTER 2022-11-21 21:01 | Inpatient (IN) | payer OTHER ==
--- NOTE | 2022-11-21 22:17 | ED ---
Recheck HPI - General Chief Complaint: Abdominal Pain Stated Complaint: Liver issues Time Seen by Provider: 11/21/22 22:15 Source: patient, RN notes reviewed, old records reviewed Mode of arrival: ambulatory Limitations: no limitations - History of Present Illness Initial Comments: This is a 42-year-old male to the emergency department today. Patient presents today for evaluation of abdominal pain severe. History of ascites known history of ascites with significant abdominal edema and swelling of cirrhosis. Patient presents today for evaluation of abdominal pain. Patient states he needs paracentesis as his pain is severe and he is having difficulty breathing MD Complaint: abnormal lab (Significant ascites) -: days(s) Returns Today for: persistent/worsening pain related to initial visit Symptoms Since Prior Visit: no new symptoms Associated Symptoms: none Treatments Prior to Arrival: Given Pain Meds on - Related Data Previous Rx's Medication Instructions Recorded HYDROcodone/APAP 10-325MG [[place] 1 each PO Q4HR PRN #18 tab 11/29/22 10-325] Lactulose [Cephulac] 30 gm PO TID #4050 ml 11/29/22 Midodrine [ProAmatine] 10 mg PO AC-TID #90 tab 11/29/22 Pantoprazole [Protonix] 40 mg PO AC-BID #60 tab 11/29/22 Furosemide [Lasix] 40 mg PO DAILY #30 tablet 11/30/22 Ondansetron Odt [Zofran Odt] 4 mg PO Q8HR PRN #30 tab 11/30/22 Allergies Allergy/AdvReac Type Severity Reaction Status Date / Time ibuprofen [From Motrin] Allergy Swelling Verified 11/22/22 13:33 Lips naproxen Allergy Swelling Verified 11/22/22 13:33 Lips Review of Systems ROS Statement: Those systems with pertinent positive or pertinent negative responses have been documented in the HPI. ROS Other: All systems not noted in ROS Statement are negative. Past Medical History Past Medical History: Hyperlipidemia, Hypertension, Liver Disease, Pneumonia Additional Past Medical History / Comment(s): Alcoholism, past withdrawals with tremors/diaphoresis, elevated LFTs, alcoholic liver cirrhosis, ascities with paracentesis, severe sepsis/aspiration pneumonia, occasional upper back pain. History of Any Multi-Drug Resistant Organisms: None Reported Past Surgical History: No Surgical Hx Reported Additional Past Surgical History / Comment(s): Pt states he has never had surgery Past Anesthesia/Blood Transfusion Reactions: Unable to Obtain Additional Past Anesthesia/Blood Transfusion Reaction / Comment(s): Pt states he has never had surgery. Past Psychological History: Depression, PTSD Smoking Status: Current every day smoker Past Alcohol Use History: Abuse Past Drug Use History: None Reported - Past Family History Mother Family Medical History: Cancer Additional Family Medical History / Comment(s): Mother has colon cancer. Father History Unknown: Yes Additional Family Medical History / Comment(s): All pt knows about his father is that he is . General Exam Limitations: no limitations General appearance: alert, in no apparent distress Head exam: Present: atraumatic, normocephalic, normal inspection Eye exam: Present: normal appearance, PERRL, EOMI. Absent: scleral icterus, conjunctival injection, periorbital swelling ENT exam: Present: normal exam, mucous membranes moist Neck exam: Present: normal inspection. Absent: tenderness, meningismus, lymphadenopathy Respiratory exam: Present: normal lung sounds bilaterally. Absent: respiratory distress, wheezes, rales, rhonchi, stridor Cardiovascular Exam: Present: regular rate, normal rhythm, normal heart sounds. Absent: systolic murmur, diastolic murmur, rubs, gallop, clicks GI/Abdominal exam: Present: soft, normal bowel sounds. Absent: distended, tenderness, guarding, rebound, rigid Extremities exam: Present: normal inspection, full ROM, normal capillary refill. Absent: tenderness, pedal edema, joint swelling, calf tenderness Back exam: Present: normal inspection Neurological exam: Present: alert, oriented X3, CN II-XII intact Psychiatric exam: Present: normal affect, normal mood Skin exam: Present: warm, dry, intact, normal color. Absent: rash Course Vital Signs 11/21/22 11/22/22 21:12 00:17 Temperature 98.2 F Pulse Rate 100 100 Respiratory 26 H 20 Rate Blood Pressure 117/72 102/56 O2 Sat by Pulse 96 95 Oximetry - Reevaluation(s) Reevaluation #1: 11/21/22 23:51 Medical records reviewed Reevaluation #2: 11/21/22 23:52 Patient informed of results and questions answered Reevaluation #3: 11/21/22 23:52 Change in symptoms here in the ER Reevaluation #4: 11/22/22 02:31 Was pt. sent in by a medical professional or institution (TASHA Camejo, ACTIVITY THERAPY TEACHER, urgent care, hospital, or assisted...) When possible be specific @ -no Did you speak to anyone other than the patient for history (EMS, parent, family, police, friend...)? What history was obtained from this source @ -no Did you review nursing and triage notes (agree or disagree)? Why? @ -agree Are old charts reviewed (outside hosp., previous admission, EMS record, old EKG, old radiological studies, urgent care reports/EKG's, assisted records)? Report findings @ -yes Differential Diagnosis (chest pain, altered mental status, abdominal pain women, abdominal pain men, vaginal bleeding, weakness, fever, dyspnea, syncope, headache, dizziness, GI bleed, back pain, seizure, CVA, palpatations, mental health, musculoskeletal)? @ -prior EKG interpreted by me (3pts min.). @ -no X-rays interpreted by me (1pt min.). @ -no CT interpreted by me (1pt min.). @ -no U/S interpreted by me (1pt. min.). @ -no What testing was considered but not performed or refused? (CT, X-rays, U/S, labs)? Why? @ -none What meds were considered but not given or refused? Why? @ -none Did you discuss the management of the patient with other professionals (professionals i.e. TASHA Camejo, ACTIVITY THERAPY TEACHER, lab, RT, psych nurse, social media marketing analyst, assistant athletic trainer, teacher, commercial account officer, comp field case manager)? Give summary @ -no Was smoking cessation discussed for >3mins.? @ -no Was critical care preformed (if so, how long)? @ -no Were there social determinants of health that impacted care today? How? (Homelessness, low income, unemployed, alcoholism, drug addiction, transportation, low edu. Level, literacy, decrease access to med. care, senior living, rehab)? @ -none Was there de-escalation of care discussed even if they declined (Discuss DNR or withdrawal of care, Hospice)? DNR status @ -no What co-morbidities impacted this encounter? (DM, HTN, Smoking, COPD, CAD, Cancer, CVA, ARF, Chemo, Hep., AIDS, mental health diagnosis, sleep apnea, morbid obesity)? @ -none Was patient admitted / discharged? Hospital course, mention meds given and route, prescriptions, significant lab abnormalities, going to OR and other pertinent info. @ - 42 male to the emergency department for severe abdominal pain will be paracentesis needed for therapeutic reasons. Patient has significant terse ascites here in the ER and will be admitted Undiagnosed new problem with uncertain prognosis? @ -no Drug Therapy requiring intensive monitoring for toxicity (Heparin, Nitro, Insulin, Cardizem)? @ -no Were any procedures done? @ -no Diagnosis/symptom? @ -Significant ascites, abdominal pain Acute, or Chronic, or Acute on Chronic? @ -Acute Uncomplicated (without systemic symptoms) or Complicated (systemic symptoms)? @ -Complicated Side effects of treatment? @ -no Exacerbation, Progression, or Severe Exacerbation? @ -exacerbation Poses a threat to life or bodily function? How? (Chest pain, USA, SC, pneumonia, PE, COPD, DKA, ARF, appy, cholecystitis, CVA, Diverticulitis, Homicidal, Suicidal, threat to staff... and all critical care pts) @ -yes Reevaluation #5: 11/21/22 23:52 Differential Abdominal Pain Women: Appendicitis, Cholecystitis, diverticulosis, ischemic bowel, pancreatitis, hepatitis, UTI, gastroenteritis, AAA, incarcerated hernia, bowel obstruction, constipation, inflammatory bowel, hepatitis, peptic ulcer disease, splenic infarction, perforated viscus, vulvitis, ovarian torsion, PID, kidney stone, placenta abruption, this is not meant to be an all-inclusive list Medical Decision Making - Medical Decision Making 42 male to the emergency department for severe abdominal pain will be paracentesis needed for therapeutic reasons. Patient has significant terse ascites here in the ER and will be admitted - Lab Data Result diagrams: 11/27/22 07:29 11/27/22 07:29 Lab Results 11/21/22 11/21/22 11/21/22 Range/Units 22:33 22:33 22:33 WBC 5.6 (3.8-10.6) k/uL RBC 3.53 L (4.30-5.90) m/uL Hgb 10.0 L (13.0-17.5) gm/dL Hct 31.8 L (39.0-53.0) % MCV 89.9 D (80.0-100.0) fL MCH 28.4 (25.0-35.0) pg MCHC 31.5 (31.0-37.0) g/dL RDW 19.4 H (11.5-15.5) % Plt Count 147 L (150-450) k/uL MPV 8.3 Neutrophils % 75 % Lymphocytes % 14 % Monocytes % 7 % Eosinophils % 2 % Basophils % 1 % Neutrophils # 4.2 (1.3-7.7) k/uL Lymphocytes # 0.8 L (1.0-4.8) k/uL Monocytes # 0.4 (0-1.0) k/uL Eosinophils # 0.1 (0-0.7) k/uL Basophils # 0.0 (0-0.2) k/uL Hypochromasia Slight Anisocytosis Slight PT 15.4 H (9.0-12.0) sec INR 1.5 H (<1.2) APTT 30.7 H (22.0-30.0) sec Sodium 131 L (137-145) mmol/L Potassium 4.0 (3.5-5.1) mmol/L Chloride 105 (98-107) mmol/L Carbon Dioxide 19 L (22-30) mmol/L Anion Gap 7 mmol/L BUN 16 (9-20) mg/dL Creatinine 0.89 (0.66-1.25) mg/dL Est GFR (CKD-EPI)AfAm >90 (>60 ml/min/1.73 sqM) Est GFR (CKD-EPI)NonAf >90 (>60 ml/min/1.73 sqM) Glucose 126 H (74-99) mg/dL Calcium 8.1 L (8.4-10.2) mg/dL Phosphorus 3.6 (2.5-4.5) mg/dL Magnesium 1.9 (1.6-2.3) mg/dL Total Bilirubin 2.8 H (0.2-1.3) mg/dL AST 30 (17-59) U/L ALT 17 (4-49) U/L Alkaline Phosphatase 92 (38-126) U/L Ammonia (<30) umol/L Total Protein 7.6 (6.3-8.2) g/dL Albumin 2.9 L (3.5-5.0) g/dL Amylase 36 (30-110) U/L Lipase 44 (23-300) U/L 11/21/22 Range/Units 23:41 WBC (3.8-10.6) k/uL RBC (4.30-5.90) m/uL Hgb (13.0-17.5) gm/dL Hct (39.0-53.0) % MCV (80.0-100.0) fL MCH (25.0-35.0) pg MCHC (31.0-37.0) g/dL RDW (11.5-15.5) % Plt Count (150-450) k/uL MPV Neutrophils % % Lymphocytes % % Monocytes % % Eosinophils % % Basophils % % Neutrophils # (1.3-7.7) k/uL Lymphocytes # (1.0-4.8) k/uL Monocytes # (0-1.0) k/uL Eosinophils # (0-0.7) k/uL Basophils # (0-0.2) k/uL Hypochromasia Anisocytosis PT (9.0-12.0) sec INR (<1.2) APTT (22.0-30.0) sec Sodium (137-145) mmol/L Potassium (3.5-5.1) mmol/L Chloride (98-107) mmol/L Carbon Dioxide (22-30) mmol/L Anion Gap mmol/L BUN (9-20) mg/dL Creatinine (0.66-1.25) mg/dL Est GFR (CKD-EPI)AfAm (>60 ml/min/1.73 sqM) Est GFR (CKD-EPI)NonAf (>60 ml/min/1.73 sqM) Glucose (74-99) mg/dL Calcium (8.4-10.2) mg/dL Phosphorus (2.5-4.5) mg/dL Magnesium (1.6-2.3) mg/dL Total Bilirubin (0.2-1.3) mg/dL AST (17-59) U/L ALT (4-49) U/L Alkaline Phosphatase (38-126) U/L Ammonia 56 H (<30) umol/L Total Protein (6.3-8.2) g/dL Albumin (3.5-5.0) g/dL Amylase (30-110) U/L Lipase (23-300) U/L Disposition Clinical Impression: Alcoholic cirrhosis of liver with ascites, Ascites, Jaundice Disposition: ADMITTED IP TO THIS HOSP Condition: Stable Is patient prescribed a controlled substance at d/c from ED?: No Time of Disposition: 23:50
[2022-11-21 23:02] LABS: ALT 17 U/L (4-49); AST 30 U/L (17-59); African American GFR (CKD) >90 (>60 ml/min/1.73 sqM); Albumin 2.9 g/dL (3.5-5.0); Alkaline Phosphatase 92 U/L (38-126); Amylase 36 U/L (30-110); Anion Gap 7 mmol/L; Blood Urea Nitrogen 16 mg/dL (9-20); Calcium 8.1 mg/dL (8.4-10.2); Carbon Dioxide 19 mmol/L (22-30); Chloride 105 mmol/L (98-107); Glucose 126 mg/dL (74-99); Lipase 44 U/L (23-300); Magnesium 1.9 mg/dL (1.6-2.3); Non-African American GFR(CKD) >90 (>60 ml/min/1.73 sqM); Phosphorus 3.6 mg/dL (2.5-4.5); Sodium 131 mmol/L (137-145); Total Bilirubin 2.8 mg/dL (0.2-1.3); Total Protein 7.6 g/dL (6.3-8.2)
[2022-11-21 23:08] LABS: Anisocytosis Slight; Basophils % (A) 1 %; Eosinophils # (A) 0.1 k/uL (0-0.7); Eosinophils % (A) 2 %; HCT 31.8 % (39.0-53.0); Hypochromasia Slight; Lymphocytes # (A) 0.8 k/uL (1.0-4.8); Lymphocytes % (A) 14 %; MCH 28.4 pg (25.0-35.0); MCHC 31.5 g/dL (31.0-37.0); Mean Platelet Volume 8.3; Monocytes # (A) 0.4 k/uL (0-1.0); Monocytes % (A) 7 %; Neutrophils # (A) 4.2 k/uL (1.3-7.7); Neutrophils % (A) 75 %; Platelet Count 147 k/uL (150-450); RBC 3.53 m/uL (4.30-5.90); RDW 19.4 % (11.5-15.5); WBC 5.6 k/uL (3.8-10.6)
[2022-11-21] MEDS ORDERED: HYDROmorphone 1 MG/ML 1 ML SYRINGE IVP STA (23:17)
[2022-11-21 23:21] LABS: INR 1.5 (<1.2); Partial Thromboplastin Time 30.7 sec (22.0-30.0); Prothrombin Time 15.4 sec (9.0-12.0)
[2022-11-21] MEDS ORDERED: NALOXONE 0.4 MG/ML 1 ML VIAL IV PRN (23:50)
[2022-11-22 00:03] LABS: MCV 89.9 fL (80.0-100.0)
--- NOTE | 2022-11-22 03:19 | P.HPIM ---
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 he denies any abd pain out of the ordinary , denies any fever, chills, chest pain , SOB, bleeding, changes in urinary or bowel habits. he is having difficult time walking around over past couple days, he could not even prepare meals, due to his abd distention gotten so big and heavy , he is breathing fine especially if he position himself correctly he denies any illicit drugs or alcohol , he has been sober for 7 months now. review of systems Pertinent positives as noted in HPI. All other systems were reviewed and are negative on exam Constitutional: No acute distress, conversant, pleasant Eyes: scleral jaundice , moist conjunctiva, Pupils equal round reactive to light ENMT: NC/AT Oropharynx clear, no erythema, or exudates Neck: Supple, no masses, or JVD No carotid bruits No thyromegaly Lungs: Clear to auscultation Clear to percussion Normal respiratory effort, no accessory muscle use Cardiovascular: Heart regular in rate and rhythm, No murmurs, gallops, or rubs No peripheral edema Abdominal: significantly distended , positive transmitted thrill no guarding, rebound or rigidity Abdomen moving with respiration Normoactive bowel sounds could not assess for organomegally due to significant distention No palpable mass No abdominal wall hernia noted Skin: diffuse macular lesions throughout with skin picking lesions, no induration no erythema Extremities: No digital cyanosis No clubbing Pedal pulses intact and symmetrical Radial pulses intact and symmetrical No calf tenderness Psychiatric: Alert and oriented to person, place and time Appropriate affect fair judgement Neuro Muscles Strength 5/5 in all 4 extremities Sensation to light touch grossly present throughout Cranial nerves II-XII grossly intact Lymphatics: no palpable cervical or supraclavicular lymph nodes Past Medical History Past Medical History: Hyperlipidemia, Hypertension, Liver Disease, Pneumonia Additional Past Medical History / Comment(s): Alcoholism, past withdrawals with tremors/diaphoresis, elevated LFTs, alcoholic liver cirrhosis, ascities with paracentesis, severe sepsis/aspiration pneumonia, occasional upper back pain. History of Any Multi-Drug Resistant Organisms: None Reported Past Surgical History: No Surgical Hx Reported Additional Past Surgical History / Comment(s): Pt states he has never had surgery Past Anesthesia/Blood Transfusion Reactions: Unable to Obtain Additional Past Anesthesia/Blood Transfusion Reaction / Comment(s): Pt states he has never had surgery. Past Psychological History: Depression, PTSD Smoking Status: Current every day smoker Past Alcohol Use History: Abuse Past Drug Use History: None Reported - Past Family History Mother Family Medical History: Cancer Additional Family Medical History / Comment(s): Mother has colon cancer. Father History Unknown: Yes Additional Family Medical History / Comment(s): All pt knows about his father is that he is . Medications and Allergies Home Medications Medication Instructions Recorded Confirmed Type Furosemide [Lasix] 40 mg PO DAILY #30 tab 05/04/22 09/16/22 Rx Spironolactone [Aldactone] 100 mg PO DAILY #120 tab 05/04/22 09/16/22 Rx Calcium Carbonate [Tums] 500 mg PO QID PRN tab 08/06/22 09/16/22 Rx Lactulose [Cephulac] 20 gm PO TID ml 08/06/22 09/16/22 Rx Pantoprazole [Protonix] 40 mg PO AC-BID tab 08/06/22 09/16/22 Rx Buprenorphine [Butrans 10 MCG/HOUR] 10 mcg PO WEEKLY 08/21/22 09/16/22 History Cyanocobalamin (Vitamin B-12) 500 mcg PO DAILY 08/21/22 09/16/22 History [Vitamin B-12] Thiamine [Vitamin B-1] 100 mg PO DAILY 08/21/22 09/16/22 History traMADol HCL 60 mg PO Q12H 08/21/22 09/16/22 History Multivitamins, Thera [Multivitamin 1 tab PO DAILY 09/01/22 09/16/22 History (formulary)] Ondansetron [Zofran] 4 mg PO Q8HR PRN 09/01/22 09/16/22 History Midodrine [ProAmatine] 5 mg PO DAILY 09/16/22 09/16/22 History Furosemide [Lasix] 40 mg PO DAILY #10 tablet 10/05/22 Rx Potassium Chloride ER [K-Dur 20] 20 meq PO DAILY #10 tab 10/05/22 Rx Allergies Allergy/AdvReac Type Severity Reaction Status Date / Time ibuprofen [From Motrin] Allergy Swelling Verified 09/01/22 13:05 Lips naproxen Allergy Swelling Verified 09/01/22 13:05 Lips Physical Exam Vitals: Vital Signs Temp Pulse Resp BP Pulse Ox 11/21/22 21:12 98.2 F 100 26 H 117/72 96 Intake and Output 11/21/22 11/21/22 11/22/22 14:59 22:59 06:59 Other: Weight 95.254 kg Results CBC & Chem 7: 11/21/22 22:33 11/21/22 22:33 Labs: Abnormal Lab Results - Last 24 Hours (Table) 11/21/22 11/21/22 11/21/22 Range/Units 22:33 22:33 22:33 RBC 3.53 L (4.30-5.90) m/uL Hgb 10.0 L (13.0-17.5) gm/dL Hct 31.8 L (39.0-53.0) % RDW 19.4 H (11.5-15.5) % Plt Count 147 L (150-450) k/uL Lymphocytes # 0.8 L (1.0-4.8) k/uL PT 15.4 H (9.0-12.0) sec INR 1.5 H (<1.2) APTT 30.7 H (22.0-30.0) sec Sodium 131 L (137-145) mmol/L Carbon Dioxide 19 L (22-30) mmol/L Glucose 126 H (74-99) mg/dL Calcium 8.1 L (8.4-10.2) mg/dL Total Bilirubin 2.8 H (0.2-1.3) mg/dL Albumin 2.9 L (3.5-5.0) g/dL Assessment and Plan Assessment: 42 year old male with end stage liver cirrhosis secondary to alcohol. coming in due to significantly enlarged abd I discussed the case with ED doc and I accepted the admission for interventional radiology evaluation for US guided paracentesis end stage liver cirrhosis secondary to history of alcohol abuse significant abdominal distention plan interventional radiology for abd paracentesis resume lasix , spironolactone resume midodrine resume lactulose blood work showing elevatd bili 2.8, elevated INR 1.5 platelet 147 renal function unremarkable BUN 16 cr 0.89 hyponatremia , secondary to hypervolemia resume lasix monitor chronic anemia denies any gi bleeding hgb 10 continue to monitor WBC 5.6 unremarkable , no fever social 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
[2022-11-22] MEDS: HYDROmorphone 1 MG/ML 1 ML SYRINGE IVP PRN ×5 (03:24→23:09)
[2022-11-22] MEDS: PANTOPRAZOLE 40 MG TABLET PO SCH ×2 (06:40→17:42)
[2022-11-22] MEDS: HEPARIN SODIUM,PORCINE/PF 5,000 UNIT/0.5 ML SYRINGE SQ SCH ×3 (08:16→23:10)
[2022-11-22] MEDS: THIAMINE 100 MG TAB PO SCH (08:17)
[2022-11-22] MEDS: SPIRONOLACTONE 25 MG TAB PO SCH (08:17)
[2022-11-22] MEDS: MIDODRINE 5 MG TAB PO SCH (08:17)
[2022-11-22] MEDS: FUROSEMIDE 40 MG TAB PO SCH (08:17)
[2022-11-22] MEDS: LACTULOSE 20 GM/30 ML CUP PO SCH ×4 (08:17→20:19)
--- NOTE | 2022-11-22 17:47 | P.PN ---
Subjective Progress Note Date: 11/22/22 Hospital course: Patient is a pleasant 42-year-old male with a past medical history of alcohol abuse disorder and alcoholic liver cirrhosis. He presented to the emergency department overnight with a chief complaint of severe abdominal pain and distention due to ascites. Patient reported last paracentesis being approximately 3 weeks ago on October 29. Patient also reports last alcoholic drink greater than 3 months ago. he reports he has been evaluated [facility] and is currently awaiting evaluation for personal security specialist to discuss possibility of liver transplant. Patient underwent full evaluation in the emergency department. CBC completed showing normocytic anemia with hemoglobin of 10.0 and thrombocytopenia with platelet count of 147. Coagulation profile showing elevated PT of 15.4, INR 1.5, and PTT of 30.7. BMP revealing hypernatremia with sodium of 131 and hypocarbia with carbon dioxide of 19. Liver profile showing elevated total bili of 2.8 and ammonia level of 56. Amylase and lipase normal findings.MELD score is 15 with a 6% estimated 3 month mortality. Physical exam: Patient seen and fully evaluated at bedside this morning. He reports continued diffuse tenderness to abdomen. Patient laying in right side abdomen significantly distended secondary to cirrhosis. Patient currently denies any chest pain, palpitations, shortness of breath, nausea or vomiting. Vital signs reviewed and stable. General: Chronically ill-appearing, emaciated extremities with large distended cirrhotic abdomen abdomen. Derm: Skin warm and dry, Jaundice. Diffuse lesions with scabbing from picki ng/scratching. Head: Atraumatic, normocephalic and symmetric. Eyes: EOMs intact, no lid lag, and positive for scleral icterus Mouth: no lip lesions, mucus membranes moist Cardiovascular: regular rate and rhythm with normal S1S2, systolic murmur, positive posterior tibial pulses bilaterally, and cap refill < 2 seconds. Lungs: Respirations even, regular, and unlabored on room air. Lungs CTA jay jay aterally, no rhonchi, no rales, no wheezing, and no accessory muscle usage. Abdominal: significantly distended cirrhotic abdomen with diffuse tenderness upon palpation. Ext: ROM intact. No gross muscle atrophy, no edema, no contractures Neuro: Speech clear, face symmetrical and CN II-XII grossly intact with no noted focal neuro deficits Psych: Alert and oriented to person, place, time, and situation. Appropriate and pleasant affect. Assessment and Plan of Care: Acute right upper quadrant Abdominal pain , Unable to rule out SBP Alcoholic Liver cirrhosis Elevated ammonia level secondary to cirrhosis Thrombocytopenia secondary to alcohol abuse and cirrhosis Chronic normocytic anemia secondary to alcohol abuse and cirrhosis Hyperbilirubinemia secondary to long history of alcohol abuse and alcoholic cirrhosis -Order placed for IV antibiotics: Rocephin 2 g every 24 hours -Blood cultures to be obtained. -Order placed for consult to interventional radiology for paracentesis. -Order placed for culture of peritoneal fluid as well as cell count -Patient to continue with Lasix 40 mg daily, Aldactone 100 mg daily, midodrine 5 mg daily -Continue lactulose 20 g 3 times daily -Symptomatic care and pain management with dilaudid 1 mg IVP q3 hours as needed for pain and zofran 4 mg IVP q 8 hours as needed for nausea. -MELD score is 15 with a 6% estimated 3 month mortality CODE STATUS: Full code DVT prophylaxis: Heparin Discussed with: Pt and RN Anticipated discharge date: Clinical course to determine Anticipated discharge place: Home Patient was seen independently by Nurse Pracitioner. This document was prepared using [employer] dictation software. Please allow for errors in senior policy analyst, while rare they do occur. I reviewed the documentation as provided by the TESSY above, who is the original author of this note. I agree with the documented assessment and plan, with the following changes: none Objective - Vital Signs Vital signs: Vital Signs Temp 98.2 F 11/22/22 07:00 Pulse 86 11/22/22 07:00 Resp 20 11/22/22 07:00 BP 101/61 11/22/22 07:00 Pulse Ox 97 11/22/22 07:00 FiO2 Intake & Output 11/21/22 11/22/22 11/22/22 18:59 06:59 18:59 Weight 95.254 kg Other: # Voids 1 - Labs CBC & Chem 7: 11/21/22 22:33 11/21/22 22:33 Labs: Abnormal Lab Results - Last 24 Hours (Table) 11/21/22 11/21/22 11/21/22 Range/Units 22:33 22:33 22:33 RBC 3.53 L (4.30-5.90) m/uL Hgb 10.0 L (13.0-17.5) gm/dL Hct 31.8 L (39.0-53.0) % RDW 19.4 H (11.5-15.5) % Plt Count 147 L (150-450) k/uL Lymphocytes # 0.8 L (1.0-4.8) k/uL PT 15.4 H (9.0-12.0) sec INR 1.5 H (<1.2) APTT 30.7 H (22.0-30.0) sec Sodium 131 L (137-145) mmol/L Carbon Dioxide 19 L (22-30) mmol/L Glucose 126 H (74-99) mg/dL Calcium 8.1 L (8.4-10.2) mg/dL Total Bilirubin 2.8 H (0.2-1.3) mg/dL Ammonia (<30) umol/L Albumin 2.9 L (3.5-5.0) g/dL 11/21/22 Range/Units 23:41 RBC (4.30-5.90) m/uL Hgb (13.0-17.5) gm/dL Hct (39.0-53.0) % RDW (11.5-15.5) % Plt Count (150-450) k/uL Lymphocytes # (1.0-4.8) k/uL PT (9.0-12.0) sec INR (<1.2) APTT (22.0-30.0) sec Sodium (137-145) mmol/L Carbon Dioxide (22-30) mmol/L Glucose (74-99) mg/dL Calcium (8.4-10.2) mg/dL Total Bilirubin (0.2-1.3) mg/dL Ammonia 56 H (<30) umol/L Albumin (3.5-5.0) g/dL
[2022-11-23] MEDS: HYDROmorphone 1 MG/ML 1 ML SYRINGE IVP PRN ×5 (03:30→20:39)
[2022-11-23] MEDS: PANTOPRAZOLE 40 MG TABLET PO SCH ×2 (05:49→16:53)
[2022-11-23] MEDS: LACTULOSE 20 GM/30 ML CUP PO SCH ×4 (08:33→22:35)
[2022-11-23] MEDS: HEPARIN SODIUM,PORCINE/PF 5,000 UNIT/0.5 ML SYRINGE SQ SCH ×2 (08:34→16:53)
[2022-11-23] MEDS: SPIRONOLACTONE 25 MG TAB PO SCH (08:34)
[2022-11-23] MEDS: MIDODRINE 5 MG TAB PO SCH (08:34)
[2022-11-23] MEDS: THIAMINE 100 MG TAB PO SCH (08:34)
[2022-11-23] MEDS: FUROSEMIDE 40 MG TAB PO SCH (08:34)
[2022-11-23 09:59] LABS: HCT 26.6 % (39.6-50.0); HGB 8.5 d/dL (13.0-17.0); MCV 87.5 FL (80.0-97.0); Mean Platelet Volume 9.9 FL (9.5-12.2); NRBC Per 100 WBC 0 X 10*3/uL (0.00-0.01); Platelet Count 122 X 10*3/uL (140-440); RBC 3.04 X 10*6/uL (4.40-5.60); RDW 20.3 % (11.5-14.5); WBC 5.85 X 10*3/uL (4.50-10.00)
[2022-11-23 10:08] LABS: ALT 10 U/L (10-49); AST 24 U/L (14-35); Albumin 2.7 d/dL (3.8-4.9); Albumin/Globulin Ratio 0.71 Ratio (1.60-3.17); Alkaline Phosphatase 71 U/L (41-126); BUN/Creat Ratio 15.91 Ratio (12.00-20.00); Blood Urea Nitrogen 17.5 mg/dL (9.0-27.0); Calcium 8.4 mg/dL (8.7-10.3); Carbon Dioxide 20.9 mmol/L (21.6-31.8); Chloride 102 mmol/L (96-109); Globulin 3.8 d/dL (1.6-3.3); Glucose 94 mg/dL (70-110); Potassium 4.3 mmol/L (3.5-5.5); Sodium 131 mmol/L (135-145); Total Bilirubin 1.7 mg/dL (0.3-1.2); Total Protein 6.5 d/dL (6.2-8.2)
--- NOTE | 2022-11-23 16:14 | P.PN ---
Subjective Progress Note Date: 11/23/22 Hospital course: Patient is a pleasant 42-year-old male with a past medical history of alcohol abuse disorder and alcoholic liver cirrhosis. He presented to the emergency department overnight with a chief complaint of severe abdominal pain and distention due to ascites. Patient reported last paracentesis being approximately 3 weeks ago on October 29. Patient also reports last alcoholic drink greater than 3 months ago. he reports he has been evaluated by [facility] and is currently awaiting evaluation for heat treat worker to discuss possibility of liver transplant. Patient underwent full evaluation in the emergency department. CBC completed showing normocytic anemia with hemoglobin of 10.0 and thrombocytopenia with platelet count of 147. Coagulation profile showing elevated PT of 15.4, INR 1.5, and PTT of 30.7. BMP revealing hypernatremia with sodium of 131 and hypocarbia with carbon dioxide of 19. Liver profile showing elevated total bili of 2.8 and ammonia level of 56. Amylase and lipase normal findings.MELD score is 15 with a 6% estimated 3 month mortality. Physical exam: Patient seen and fully evaluated at bedside this morning. He reports continued diffuse tenderness to abdomen. Patient remains lying on right side due to significantly enlarged abdomen. He reports Dilaudid helping with pain but states it wears off quickly. Orders placed for tramadol every 12 hours in addition to Dilaudid 1 mg every 3 hours. Patient currently denies any chest pain, palpitations, shortness of breath, nausea or vomiting. Vital signs reviewed and stable. General: Chronically ill-appearing, emaciated extremities with large distended cirrhotic abdomen abdomen. Derm: Skin warm and dry, Jaundice. Diffuse lesions with scabbing from picking/scratching. Head: Atraumatic, normocephalic and symmetric. Eyes: EOMs intact, no lid lag, and positive for scleral icterus Mouth: no lip lesions, mucus membranes moist Cardiovascular: regular rate and rhythm with normal S1S2, systolic murmur, po sitive posterior tibial pulses bilaterally, and cap refill < 2 seconds. Lungs: Respirations even, regular, and unlabored on room air. Lungs CTA bilaterally, no rhonchi, no rales, no wheezing, and no accessory muscle usage. Abdominal: significantly distended cirrhotic abdomen with diffuse tenderness upon palpation. Ext: ROM intact. No gross muscle atrophy, no edema, no contractures Neuro: Speech clear, face symmetrical and CN II-XII grossly intact with no noted focal neuro deficits Psych: Alert and oriented to person, place, time, and situation. Appropriate and pleasant affect. Assessment and Plan of Care: Acute right upper quadrant Abdominal pain , Unable to rule out SBP Alcoholic Liver cirrhosis Elevated ammonia level secondary to cirrhosis Thrombocytopenia secondary to alcohol abuse and cirrhosis Chronic normocytic anemia secondary to alcohol abuse and cirrhosis Hyperbilirubinemia secondary to long history of alcohol abuse and alcoholic cirrhosis -Continue IV antibiotics: Rocephin 2 g every 24 hours -Blood cultures to be obtained. -Order placed for consult to interventional radiology for paracentesis. -Order placed for culture of peritoneal fluid as well as cell count -Patient to continue with Lasix 40 mg daily, Aldactone 100 mg daily, midodrine 5 mg daily -Ammonia levels elevating, lactulose increased to 30 mg 3 times daily. We will repeat CMP and ammonia levels with a.m. labs to monitor for improvement. -Symptomatic care and pain management with dilaudid 1 mg IVP q3 hours as needed for pain and zofran 4 mg IVP q 8 hours as needed for nausea. -MELD score is 15 with a 6% estimated 3 month mortality Data review: -Vital signs reviewed and stable. Blood pressure 115/60, heart rate 90, respiratory rate 18, temp 97.9F, and SpO2 of 99% on room air. -Morning labs completed and reviewed. CBC showing continued normocytic anemia with hemoglobin of 8.5 and thrombocytopenia with platelet count of 122. BMP showing hyponatremia with sodium 131. Ammonia elevating to 69. Bilirubin 1.7. CODE STATUS: Full code DVT prophylaxis: Heparin Discussed with: Pt and RN Anticipated discharge date: Clinical course to determine Anticipated discharge place: Home Patient was seen independently by Nurse Pracitioner. This document was prepared using [employer] dictation software. Please allow for errors in cloth bale header, while rare they do occur. Pako Mendoza NP rendered care for this patient independently, reviewed the findings and plan as documented in the note above. I did not physically speak with or examine the patient on this date. Objective - Vital Signs Vital signs: Vital Signs Temp 98.4 F 11/23/22 01:20 Pulse 90 11/23/22 02:25 Resp 16 11/23/22 02:25 BP 128/65 11/23/22 01:20 Pulse Ox 97 11/23/22 01:20 FiO2 Intake & Output 11/22/22 11/23/22 11/23/22 18:59 06:59 18:59 Intake Total 328 Balance 328 Intake: Oral 328 Other: # Voids 1 1 - Labs CBC & Chem 7: 11/27/22 07:29 11/27/22 07:29 Labs: Abnormal Lab Results - Last 24 Hours (Table) 11/23/22 Range/Units 06:05 Ammonia 69 H (<30) umol/L
[2022-11-24] MEDS: HYDROmorphone 1 MG/ML 1 ML SYRINGE IVP PRN ×5 (00:25→17:36)
[2022-11-24] MEDS: HEPARIN SODIUM,PORCINE/PF 5,000 UNIT/0.5 ML SYRINGE SQ SCH ×4 (00:29→22:44)
[2022-11-24] MEDS: PANTOPRAZOLE 40 MG TABLET PO SCH ×2 (06:23→17:00)
[2022-11-24] MEDS: THIAMINE 100 MG TAB PO SCH (08:18)
[2022-11-24] MEDS: LACTULOSE 20 GM/30 ML CUP PO SCH ×3 (08:18→22:44)
[2022-11-24] MEDS: FUROSEMIDE 40 MG TAB PO SCH (08:18)
[2022-11-24] MEDS: SPIRONOLACTONE 25 MG TAB PO SCH (08:18)
[2022-11-24] MEDS: MIDODRINE 5 MG TAB PO SCH ×3 (08:18→13:04)
[2022-11-24] MEDS: traMADol 50 MG TAB PO PRN ×2 (08:34→22:43)
[2022-11-24 09:05] LABS: ALT 13 U/L (10-49); AST 28 U/L (14-35); Albumin/Globulin Ratio 0.71 Ratio (1.60-3.17); Alkaline Phosphatase 78 U/L (41-126); BUN/Creat Ratio 16.67 Ratio (12.00-20.00); Calcium 8.6 mg/dL (8.7-10.3); Carbon Dioxide 19.1 mmol/L (21.6-31.8); Chloride 102 mmol/L (96-109); Globulin 4.2 d/dL (1.6-3.3); Glucose 105 mg/dL (70-110); Potassium 4.3 mmol/L (3.5-5.5); Sodium 132 mmol/L (135-145); Total Bilirubin 2.2 mg/dL (0.3-1.2); Total Protein 7.2 d/dL (6.2-8.2)
[2022-11-24 09:30] LABS: HCT 29.6 % (39.6-50.0); HGB 9.1 d/dL (13.0-17.0); MCH 27.8 pg (27.0-32.0); MCHC 30.7 d/dL (32.0-37.0); MCV 90.5 FL (80.0-97.0); Mean Platelet Volume 10.8 FL (9.5-12.2); NRBC Per 100 WBC 0 X 10*3/uL (0.00-0.01); Platelet Count 160 X 10*3/uL (140-440); RBC 3.27 X 10*6/uL (4.40-5.60); RDW 19.9 % (11.5-14.5); WBC 8.42 X 10*3/uL (4.50-10.00)
[2022-11-24] MEDS: ALBUMIN HUMAN 25% 50 ML in EMPTY BAG 1 BAG IVPB SCH ×4 (11:20→13:58)
--- NOTE | 2022-11-24 12:15 | US ---
Ultrasound-guided paracentesis. DATE OF EXAM: 11/24/2022 CLINICAL HISTORY: Ascites The procedure was discussed with the patient. The risks, complications, benefits, and alternatives we re discussed and any questions were answered. Informed consent was obtained. The patient was placed s upine on the ultrasound table and prepped and draped in the usual sterile fashion. All elements of maximal barrier technique were utilized. Under ultrasound guidance, access into the right lower quadrant was obtained, via the paracentesis catheter system and direct ultrasound guidanc e. Approximately 18 liters of straw-colored fluid was removed. The patient was stable throughout the pro cedure and remained stable upon discharge from Department of Radiology. IMPRESSION: Successful paracentesis under ultrasound guidance.
--- NOTE | 2022-11-24 15:11 | P.CONS ---
History of Present Illness - Reason for Consult Consult date: 11/24/22 Alcoholic cirrhosis, meld 15 Requesting physician: Pako Mendoza - Chief Complaint Ascites - History of Present Illness This is a 42-year-old male with known alcoholic cirrhosis of the liver who has been seen multiple times in the past and presented with abdominal pain and a scites. Patient states he is not had any transportation has not followed up with gastroenterology, has not followed [facility] with [facility] and has not been compliant with taking medications because he ran out. Patient lives alone states he has no support. Presented back to the emergency department with complaints of abdominal pain and distention. Patient has been to the emergency department multiple times for ascites. His last paracentesis was 10/29/2022 with 13 L removed. Patient states he has not had any alcohol for 6-7 months. Gastroenterology was consulted for cirrhosis of the liver. Labs WBC 8.4 hemoglobin 9.1 hematocrit 29 platelet count 160,000 sodium 132 potassium 4.3 BUN 20 and 1.2 total bilirubin 2.2 AST 28 PLT 13 alkaline phosphatase 78 ammonia 33 Review of Systems REVIEW OF SYSTEMS: CARDIOPULMONARY: No chest pain or shortness of breath. Gastrointestinal: Abdominal pain and distention.. No nausea or vomiting. No hematemesis, coffee-ground emesis. No rectal bleeding, or melena. GENITOURINARY: No dysuria or hematuria. MUSCULOSKELETAL: Reports normal range of motion., Joint pain. SKIN: Rash/scratches over body. No jaundice. ENDOCRINE: No chills, fevers. No excessive weight gain or loss. No polydipsia or polyuria. PSYCHIATRIC: Unremarkable. NEUROLOGY: No change in mental status. Denies dizziness, headache. ENT: Vision unremarkable. CONSTITUTIONAL: No recent weight loss. No fever, chills, night sweats. Past Medical History Past Medical History: Hyperlipidemia, Hypertension, Liver Disease, Pneumonia Additional Past Medical History / Comment(s): Alcoholism, past withdrawals with tremors/diaphoresis, elevated LFTs, alcoholic liver cirrhosis, ascities with paracentesis, severe sepsis/aspiration pneumonia, occasional upper back pain. History of Any Multi-Drug Resistant Organisms: None Reported Past Surgical History: No Surgical Hx Reported Additional Past Surgical History / Comment(s): Pt states he has never had surgery Past Anesthesia/Blood Transfusion Reactions: Unable to Obtain Additional Past Anesthesia/Blood Transfusion Reaction / Comm: Pt states he has never had surgery. Past Psychological History: Depression, PTSD Smoking Status: Current every day smoker Past Alcohol Use History: Abuse Past Drug Use History: None Reported - Past Family History Mother Family Medical History: Cancer Additional Family Medical History / Comment(s): Mother has colon cancer. Father History Unknown: Yes Additional Family Medical History / Comment(s): All pt knows about his father is that he is . Medications and Allergies Home Medications Medication Instructions Recorded Confirmed Type No Known Home Medications 11/22/22 11/22/22 History Allergies Allergy/AdvReac Type Severity Reaction Status Date / Time ibuprofen [From Motrin] Allergy Swelling Verified 11/22/22 13:33 Lips naproxen Allergy Swelling Verified 11/22/22 13:33 Lips Physical Exam Vitals: Vital Signs Temp Pulse Resp BP Pulse Ox 11/24/22 02:57 98.3 F 108 H 16 128/72 96 11/24/22 02:00 20 11/23/22 21:15 89 18 11/23/22 19:14 98.0 F 89 16 105/63 98 11/23/22 14:38 97.9 F 90 18 115/65 99 Intake and Output 11/23/22 11/24/22 11/24/22 22:59 06:59 14:59 Intake Total 120 Balance 120 Intake: Oral 120 Other: Voiding Method Toilet # Voids 2 2 # Bowel Movements 1 5 General appearance: The patient is alert, oriented, appears in no acute distress. HET: Head is normocephalic and atraumatic. Conjunctiva pink. Sclera anicteric. Neck: Supple without lymphadenopathy. Trachea midline. Heart: S1 S2. Regular rate and rhythm. Lungs: Clear to auscultation. Abdomen: Soft, diffuse tenderness, distended with large amount of ascites, umbilical hernia. Skin: Rash/scratches on arms, back, abdomen, legs. Jaundice. Extremities: Normal skin color and turgor. No pedal edema. Neurological: No focal deficits. Alert and oriented x3. Results CBC & Chem 7: 11/24/22 06:05 11/24/22 06:05 Labs: Abnormal Lab Results - Last 24 Hours (Table) 11/23/22 11/23/22 11/24/22 Range/Units 06:05 06:05 06:05 RBC 3.04 L (4.40-5.60) X 10*6/uL Hgb 8.5 L (13.0-17.0) d/dL Hct 26.6 L (39.6-50.0) % RDW 20.3 H (11.5-14.5) % Plt Count 122 L (140-440) X 10*3/uL Sodium 131 L (135-145) mmol/L Carbon Dioxide 20.9 L (21.6-31.8) mmol/L Calcium 8.4 L (8.7-10.3) mg/dL Total Bilirubin 1.7 H (0.3-1.2) mg/dL Ammonia 33 H (<30) umol/L Albumin 2.7 L (3.8-4.9) d/dL Globulin 3.8 H (1.6-3.3) d/dL Albumin/Globulin Ratio 0.71 L (1.60-3.17) Ratio Assessment and Plan (1) Decompensation of cirrhosis of liver Narrative/Plan: 42-year-old male with long-standing history of alcohol abuse presenting with decompensated alcoholic cirrhosis of the liver. Patient with large amount of abdominal ascites, he is noncompliant with his care not making any of his appointments reportedly due to transportation issues. He has not been taking his diuretics as prescribed. Recent paracentesis 10/29/2022 with 13 L removed again today paracentesis with 19 L removed. Discussed with patient importance of compliance of medications and follow-up appointments. Patient will need follow-up with gastroenterology to schedule outpatient paracentesis. Continue Lasix, Aldactone and lactulose. Current Visit: Yes Status: Acute Code(s): K72.90 - HEPATIC FAILURE, UNSPECIFIED WITHOUT COMA; K74.60 - UNSPECIFIED CIRRHOSIS OF LIVER SNOMED Code(s): 391456407 (2) Alcoholic cirrhosis of liver with ascites Current Visit: Yes Status: Acute Code(s): K70.31 - ALCOHOLIC CIRRHOSIS OF LIVER WITH ASCITES SNOMED Code(s): 045576536 (3) History of alcohol abuse Current Visit: Yes Status: Acute Code(s): F10.11 - ALCOHOL ABUSE, IN REMISSION SNOMED Code(s): 194108508 Plan: 1. Continue symptomatic and supportive care 2. Continue Aldactone and Lasix as ordered 3. Continue lactulose 30 g 3 times a day, titrate for 3-4 bowel movements daily 4. Patient is status post paracentesis 5. Albumin as ordered 6. Low sodium diet 7. Alcohol abstinence 8. Social work consulted 9. Discussed with patient importance of medication compliance and follow-up appointments Thank you for this consultation, we will continue to follow. Dr. Reinaldo Negron I agree with the dictator's note, documented as a scribe by Zuleyma Arriola.
--- NOTE | 2022-11-24 17:45 | P.PN ---
Subjective Progress Note Date: 11/24/22 Hospital course: Patient is a pleasant 42-year-old male with a past medical history of alcohol abuse disorder and alcoholic liver cirrhosis. He presented to the emergency department overnight with a chief complaint of severe abdominal pain and distention due to ascites. Patient reported last paracentesis being approximately 3 weeks ago on October 29. Patient also reports last alcoholic drink greater than 3 months ago. he reports he has been evaluated by a gastr oenterologist with [place] and is currently awaiting evaluation for burrer hand to discuss possibility of liver transplant. Patient underwent full evaluation in the emergency department. CBC completed showing normocytic anemia with hemoglobin of 10.0 and thrombocytopenia with platelet count of 147. Coagulation profile showing elevated PT of 15.4, INR 1.5, and PTT of 30.7. BMP revealing hypernatremia with sodium of 131 and hypocarbia with carbon dioxide of 19. Liver profile showing elevated total bili of 2.8 and ammonia level of 56. Amylase and lipase normal findings.MELD score is 15 with a 6% estimated 3 month mortality. Physical exam: Patient seen and fully evaluated at bedside this morning. He reports continued diffuse tenderness to abdomen. He is preparing to undergo paracentesis this morning. Vital signs reviewed and stable. General: Chronically ill-appearing, emaciated extremities with large distended cirrhotic abdomen abdomen. Derm: Skin warm and dry, Jaundice. Diffuse lesions with scabbing from picking/scratching. Head: Atraumatic, normocephalic and symmetric. Eyes: EOMs intact, no lid lag, and positive for scleral icterus Mouth: no lip lesions, mucus membranes moist Cardiovascular: regular rate and rhythm with normal S1S2, systolic murmur, positive posterior tibial pulses bilaterally, and cap refill < 2 seconds. Lungs: Respirations even, regular, and unlabored on room air. Lungs CTA bilaterally, no rhonchi, no rales, no wheezing, and no accessory muscle usage. Abdominal: significantly distended cirrhotic abdomen with diffuse tenderness upon palpation. Ext: ROM intact. No gross muscle atrophy, no edema, no contractures Neuro: Speech clear, face symmetrical and CN II-XII grossly intact with no noted focal neuro deficits Psych: Alert and oriented to person, place, time, and situation. Appropriate and pleasant affect. Assessment and Plan of Care: Acute right upper quadrant Abdominal pain , Unable to rule out SBP Alcoholic Liver cirrhosis Elevated ammonia level secondary to cirrhosis Thrombocytopenia secondary to alcohol abuse and cirrhosis Chronic normocytic anemia secondary to alcohol abuse and cirrhosis Hyperbilirubinemia secondary to long history of alcohol abuse and alcoholic cirrhosis -Continue IV antibiotics: Rocephin 2 g every 24 hours -Follow up on Blood cultures -Interventional radiology following and patient scheduled to undergo paracentesis later today. -Order placed for culture of peritoneal fluid as well as cell count -Patient to continue with Lasix 40 mg daily, Aldactone 100 mg daily, and mid odrine 5 mg daily -Ammonia levels showing improvement status post increasing lactulose dose to 30 g 3 times daily. Ammonia level was 69 decreasing down to 33 this morning. -Symptomatic care and pain management with dilaudid 1 mg IVP q3 hours as needed for pain and zofran 4 mg IVP q 8 hours as needed for nausea. -MELD score is 15 with a 6% estimated 3 month mortality. -Acrobatic Dancer consulted, discussed plan of care with gastroenterology [facility]ICE C[facility] DIRECTOR. Recommending consideration of transfer to [facility] for evaluation by a burrer hand. -Called [place] transfer center and initiated transfer process and awaiting callback and accepting physician at this time. CODE STATUS: Full code DVT prophylaxis: Heparin Discussed with: Pt, gastroenterology [facility] DIRECTOR and RN Anticipated discharge date: Clinical course to determine Anticipated discharge place: Clinical course to determine Patient was seen independently by Nurse Pracitioner. This document was prepared using [employer] dictation software. Please allow for errors in firer marine, while rare they do occur. Pako Mendoza NP rendered care for this patient independently, reviewed the findings and plan as documented in the note above. I did not physically speak with or examine the patient on this date. Objective - Vital Signs Vital signs: Vital Signs Temp 98.3 F 11/24/22 02:57 Pulse 108 H 11/24/22 02:57 Resp 16 11/24/22 02:57 BP 128/72 11/24/22 02:57 Pulse Ox 96 11/24/22 02:57 FiO2 Intake & Output 11/23/22 11/24/22 11/24/22 18:59 06:59 18:59 Intake Total 120 Balance 120 Intake: Oral 120 Other: Voiding Method Toilet # Voids 1 2 # Bowel Movements 5 - Labs CBC & Chem 7: 11/27/22 07:29 11/27/22 07:29 Labs: Abnormal Lab Results - Last 24 Hours (Table) 11/23/22 11/23/22 11/24/22 Range/Units 06:05 06:05 06:05 RBC 3.04 L (4.40-5.60) X 10*6/uL Hgb 8.5 L (13.0-17.0) d/dL Hct 26.6 L (39.6-50.0) % RDW 20.3 H (11.5-14.5) % Plt Count 122 L (140-440) X 10*3/uL Sodium 131 L (135-145) mmol/L Carbon Dioxide 20.9 L (21.6-31.8) mmol/L Calcium 8.4 L (8.7-10.3) mg/dL Total Bilirubin 1.7 H (0.3-1.2) mg/dL Ammonia 33 H (<30) umol/L Albumin 2.7 L (3.8-4.9) d/dL Globulin 3.8 H (1.6-3.3) d/dL Albumin/Globulin Ratio 0.71 L (1.60-3.17) Ratio
[2022-11-25 04:25] LABS: Appearance,BF Cloudy (Clear)
[2022-11-25] MEDS: PANTOPRAZOLE 40 MG TABLET PO SCH ×2 (06:24→17:52)
[2022-11-25] MEDS: LACTULOSE 20 GM/30 ML CUP PO SCH ×5 (09:00→20:45)
[2022-11-25 09:14] LABS: Magnesium 1.9 mg/dL (1.5-2.4)
[2022-11-25 09:29] LABS: ALT 7 U/L (10-49); AST 18 U/L (14-35); Albumin 2.5 d/dL (3.8-4.9); Albumin/Globulin Ratio 0.93 Ratio (1.60-3.17); Alkaline Phosphatase 50 U/L (41-126); Blood Urea Nitrogen 19.5 mg/dL (9.0-27.0); Carbon Dioxide 21.1 mmol/L (21.6-31.8); Chloride 104 mmol/L (96-109); Globulin 2.7 d/dL (1.6-3.3); Glucose 100 mg/dL (70-110); Potassium 3.9 mmol/L (3.5-5.5); Sodium 133 mmol/L (135-145); Total Bilirubin 2.3 mg/dL (0.3-1.2); Total Protein 5.2 d/dL (6.2-8.2)
[2022-11-25 09:47] LABS: HCT 24.7 % (39.6-50.0); HGB 7.9 d/dL (13.0-17.0); MCH 28.2 pg (27.0-32.0); MCV 88.2 FL (80.0-97.0); Mean Platelet Volume 10.2 FL (9.5-12.2); NRBC Per 100 WBC 0 X 10*3/uL (0.00-0.01); Platelet Count 112 X 10*3/uL (140-440); RDW 19.6 % (11.5-14.5); WBC 7.86 X 10*3/uL (4.50-10.00)
[2022-11-25] MEDS: SPIRONOLACTONE 25 MG TAB PO SCH (09:57)
[2022-11-25] MEDS: THIAMINE 100 MG TAB PO SCH (09:57)
[2022-11-25] MEDS: HEPARIN SODIUM,PORCINE/PF 5,000 UNIT/0.5 ML SYRINGE SQ SCH ×3 (09:57→23:37)
[2022-11-25] MEDS: FUROSEMIDE 40 MG TAB PO SCH (09:58)
--- NOTE | 2022-11-25 15:07 | P.PN ---
Subjective Progress Note Date: 11/25/22 Principal diagnosis: Ascites, cirrhosis of the liver This is a 42-year-old male with known alcoholic cirrhosis of the liver who has been seen multiple times in the past and presented with abdominal pain and ascites. Patient states he is not had any transportation has not followed up with gastroenterology, has not followed up with his PCP with the [place] and has not been compliant with taking medications because he ran out. Patient lives alone states he has no support. Presented back to the emergency department with complaints of abdominal pain and distention. Patient has been to the emergency department multiple times for ascites. His last paracentesis was 10/29/2022 wi th 13 L removed. Patient states he has not had any alcohol for 6-7 months. Gastroenterology was consulted for cirrhosis of the liver. Labs WBC 8.4 hemoglobin 9.1 hematocrit 29 platelet count 160,000 sodium 132 potassium 4.3 BUN 20 and 1.2 total bilirubin 2.2 AST 28 PLT 13 alkaline phosphatase 78 ammonia 33 11/25/2022 Patient seen and examined today as a follow-up. Yesterday he underwent parac entesis with 18 L removed. He received albumin following. Today he states his abdomen is hurting and cramping due to his lactulose. He states he had several bowel movements yesterday up to 9 or 10. He is afebrile. Total bilirubin 2.3 AST 18 ALT 7 alkaline phosphatase 50 ammonia 30 Objective - Vital Signs Vital signs: Vital Signs Temp 97.9 F 11/25/22 07:00 Pulse 86 11/25/22 07:00 Resp 16 11/25/22 07:00 BP 92/52 11/25/22 07:00 Pulse Ox 95 11/25/22 07:00 FiO2 Intake & Output 11/24/22 11/25/22 11/25/22 18:59 06:59 18:59 Intake Total 120 Balance 120 Intake: Oral 120 Other: Voiding Method Toilet Toilet Toilet # Voids 2 2 # Bowel Movements 5 1 - Exam General appearance: The patient is alert, oriented, appears in no acute distress. HET: Head is normocephalic and atraumatic. Conjunctiva pink. Sclera anicteric. Neck: Supple without lymphadenopathy. Abdomen: Soft, large distended abdomen with ascites. No guarding or rigidity. Extremities: Normal skin color and turgor. No pedal edema Skin: Rash/scratches over her arms and legs and abdomen. jaundice Neurological: No focal deficits. Alert and oriented. - Labs CBC & Chem 7: 11/25/22 05:56 11/25/22 05:56 Labs: Abnormal Lab Results - Last 24 Hours (Table) 11/24/22 11/24/22 11/24/22 Range/Units 06:05 06:05 10:45 RBC 3.27 L (4.40-5.60) X 10*6/uL Hgb 9.1 L (13.0-17.0) d/dL Hct 29.6 L (39.6-50.0) % MCHC 30.7 L (32.0-37.0) d/dL RDW 19.9 H (11.5-14.5) % Sodium 132 L (135-145) mmol/L Carbon Dioxide 19.1 L (21.6-31.8) mmol/L Calcium 8.6 L (8.7-10.3) mg/dL Total Bilirubin 2.2 H (0.3-1.2) mg/dL Ammonia (<30) umol/L Albumin 3.0 L (3.8-4.9) d/dL Globulin 4.2 H (1.6-3.3) d/dL Albumin/Globulin Ratio 0.71 L (1.60-3.17) Ratio Fluid Appearance Cloudy A (Clear) 11/25/22 Range/Units 05:56 RBC (4.40-5.60) X 10*6/uL Hgb (13.0-17.0) d/dL Hct (39.6-50.0) % MCHC (32.0-37.0) d/dL RDW (11.5-14.5) % Sodium (135-145) mmol/L Carbon Dioxide (21.6-31.8) mmol/L Calcium (8.7-10.3) mg/dL Total Bilirubin (0.3-1.2) mg/dL Ammonia 30 H (<30) umol/L Albumin (3.8-4.9) d/dL Globulin (1.6-3.3) d/dL Albumin/Globulin Ratio (1.60-3.17) Ratio Fluid Appearance (Clear) Assessment and Plan (1) Decompensation of cirrhosis of liver Narrative/Plan: 42-year-old male with long-standing history of alcohol abuse presenting with decompensated alcoholic cirrhosis of the liver. Patient with large amount of abdominal ascites, he is noncompliant with his care not making any of his appointments reportedly due to transportation issues. He has not been taking his diuretics as prescribed. Recent paracentesis 10/29/2022 with 13 L removed again today paracentesis with 19 L removed. Discussed with patient importance of compliance of medications and follow-up appointments. Patient will need follow-up with gastroenterology to schedule outpatient paracentesis. Continue Lasix, Aldactone and lactulose. Patient with overall poor prognosis if he is noncompliant with care. Continue current recommendations and outpatient follow-up. Current Visit: Yes Status: Acute Code(s): K72.90 - HEPATIC FAILURE, UNSPECIFIED WITHOUT COMA; K74.60 - UNSPECIFIED CIRRHOSIS OF LIVER SNOMED Code(s): 148354505 (2) Alcoholic cirrhosis of liver with ascites Narrative/Plan: 42-year-old male with long-standing history of alcohol abuse presenting with decompensated alcoholic cirrhosis of the liver. Patient with large amount of abdominal ascites, he is noncompliant with his care not making any of his appointments reportedly due to transportation issues. He has not been taking his diuretics as prescribed. Recent paracentesis 10/29/2022 with 13 L removed again today paracentesis with 19 L removed. Discussed with patient importance of compliance of medications and follow-up appointments. Patient will need follow-up with gastroenterology to schedule outpatient paracentesis. Continue Lasix, Aldactone and lactulose. Current Visit: Yes Status: Acute Code(s): K70.31 - ALCOHOLIC CIRRHOSIS OF LIVER WITH ASCITES SNOMED Code(s): 383399983 (3) History of alcohol abuse Current Visit: Yes Status: Acute Code(s): F10.11 - ALCOHOL ABUSE, IN REMISSION SNOMED Code(s): 316945048 (4) Anemia Current Visit: No Status: Acute Code(s): D64.9 - ANEMIA, UNSPECIFIED SNOMED Code(s): 043401965 (5) Thrombocytopenia Current Visit: No Status: Acute Code(s): D69.6 - THROMBOCYTOPENIA, UNSPECIFIED SNOMED Code(s): 384121450 Plan: 1. Continue symptomatic and supportive care 2. Continue Aldactone and Lasix as ordered 3. Continue lactulose 30 g 3 times a day, titrate for 3-4 bowel movements daily 4. Patient is status post paracentesis 5. Low sodium diet 6. Alcohol abstinence 7. Social work consulted 8. Discussed with patient importance of medication compliance and follow-up appointments. Patient will need outpatient paracentesis set up. Thank you for this consultation, we will continue to follow. Dr. Reinaldo Negron I agree with the dictator's note, documented as a scribe by Zuleyma Arriola.
[2022-11-25] MEDS: HYDROmorphone 1 MG/ML 1 ML SYRINGE IVP PRN ×2 (15:51→23:37)
--- NOTE | 2022-11-25 18:02 | P.PN ---
Subjective Progress Note Date: 11/25/22 Hospital course: Patient is a pleasant 42-year-old male with a past medical history of alcohol abuse disorder and alcoholic liver cirrhosis. He presented to the emergency department overnight with a chief complaint of severe abdominal pain and distention due to ascites. Patient reported last paracentesis being approximately 3 weeks ago on October 29. Patient also reports last alcoholic drink greater than 3 months ago. he reports he has been evaluated by a gastr oenterologist with [place] and is currently awaiting evaluation for design sales consultant to discuss possibility of liver transplant. Patient underwent full evaluation in the emergency department. CBC completed showing normocytic anemia with hemoglobin of 10.0 and thrombocytopenia with platelet count of 147. Coagulation profile showing elevated PT of 15.4, INR 1.5, and PTT of 30.7. BMP revealing hypernatremia with sodium of 131 and hypocarbia with carbon dioxide of 19. Liver profile showing elevated total bili of 2.8 and ammonia level of 56. Amylase and lipase normal findings.MELD score is 15 with a 6% estimated 3 month mortality. 11/24/22 patient underwent with 18 L of straw-colored fluid removed. Patient then received a total of 100 g of albumin status post paracentesis. Patient evaluated by dope heater, recommending transfer to [facility] for evaluation by design sales consultant. Physical exam: Patient seen and fully evaluated at bedside this morning. He reports continued diffuse tenderness to abdomen and reports abdomen feels as though it is filling up since his paracentesis. Patient also reports abdominal cramping with diarrhea since increasing lactulose dose. Ammonia levels decreasing down to 30 this morning. Vital signs reviewed and stable. General: Chronically ill-appearing, emaciated extremities with large distended cirrhotic abdomen abdomen. Derm: Skin warm and dry, Jaundice. Diffuse lesions with scabbing from picking/s cratching. Head: Atraumatic, normocephalic and symmetric. Eyes: EOMs intact, no lid lag, and positive for scleral icterus Mouth: no lip lesions, mucus membranes moist Cardiovascular: regular rate and rhythm with normal S1S2, systolic murmur, positive posterior tibial pulses bilaterally, and cap refill < 2 seconds. Lungs: Respirations even, regular, and unlabored on room air. Lungs CTA bilater ally, no rhonchi, no rales, no wheezing, and no accessory muscle usage. Abdominal: distended cirrhotic abdomen with diffuse tenderness upon palpation. Ext: ROM intact. No gross muscle atrophy, no edema, no contractures Neuro: Speech clear, face symmetrical and CN II-XII grossly intact with no noted focal neuro deficits Psych: Alert and oriented to person, place, time, and situation. Appropriate and pleasant affect. Assessment and Plan of Care: Acute right upper quadrant Abdominal pain Alcoholic Liver cirrhosis Elevated ammonia level secondary to cirrhosis Thrombocytopenia secondary to alcohol abuse and cirrhosis Chronic normocytic anemia secondary to alcohol abuse and cirrhosis Hyperbilirubinemia secondary to long history of alcohol abuse and alcoholic cirrhosis -Continue prophylactic IV antibiotics: Rocephin 2 g every 24 hours for SBP -Interventional radiology following and the patient for paracentesis on 11/24/22 with removal of a reported 18 L of straw-colored fluid. -Patient received a total of 500 g of albumin status post paracentesis. -Follow up on culture of peritoneal fluid as well as cell count -Patient to continue with Lasix 40 mg daily, Aldactone 100 mg daily, and midodrine 5 mg daily -Ammonia levels showing improvement status post increasing lactulose dose to 30 g 3 times daily. Ammonia level was 69 decreasing down to 30 this morning. -Continue Symptomatic care and pain management with dilaudid 1 mg IVP q3 hours as needed for pain and zofran 4 mg IVP q 8 hours as needed for nausea. -Detail Sergeant following discussed plan of care with gastroenterology PYTHON DEVELOPER. Recommending consideration of transfer to [facility] for evaluation by a design sales consultant and no further recommendations at this time. -[place] transfer has been initiated as recommended by dope heater, awaiting accepting physician for transfer. CODE STATUS: Full code DVT prophylaxis: Heparin Discussed with: Pt, gastroenterology PYTHON DEVELOPER and RN Anticipated discharge date: Clinical course to determine Anticipated discharge place: Clinical course to determine Patient was seen independently by Nurse Pracitioner. This document was prepared using [employer] dictation software. Please allow for errors in health safety specialist, while rare they do occur. I reviewed the documentation as provided by the TESSY above, who is the original author of this note. I agree with the documented assessment and plan, with the following changes: none Objective - Vital Signs Vital signs: Vital Signs Temp 97.9 F 11/25/22 07:00 Pulse 86 11/25/22 07:00 Resp 16 11/25/22 07:00 BP 92/52 11/25/22 07:00 Pulse Ox 95 11/25/22 07:00 FiO2 Intake & Output 11/24/22 11/25/22 11/25/22 18:59 06:59 18:59 Intake Total 120 Balance 120 Intake: Oral 120 Other: Voiding Method Toilet Toilet Toilet # Voids 2 2 # Bowel Movements 5 1 - Labs CBC & Chem 7: 11/27/22 07:29 11/27/22 07:29 Labs: Abnormal Lab Results - Last 24 Hours (Table) 11/24/22 11/24/22 11/25/22 Range/Units 06:05 10:45 05:56 RBC 3.27 L (4.40-5.60) X 10*6/uL Hgb 9.1 L (13.0-17.0) d/dL Hct 29.6 L (39.6-50.0) % MCHC 30.7 L (32.0-37.0) d/dL RDW 19.9 H (11.5-14.5) % Ammonia 30 H (<30) umol/L Fluid Appearance Cloudy A (Clear)
[2022-11-25] MEDS: traMADol 50 MG TAB PO PRN (21:21)
[2022-11-26] MEDS: HYDROmorphone 1 MG/ML 1 ML SYRINGE IVP PRN ×6 (03:22→23:44)
[2022-11-26] MEDS: PANTOPRAZOLE 40 MG TABLET PO SCH ×2 (06:24→15:22)
[2022-11-26] MEDS: SPIRONOLACTONE 25 MG TAB PO SCH (07:43)
[2022-11-26] MEDS: LACTULOSE 20 GM/30 ML CUP PO SCH ×3 (07:43→19:59)
[2022-11-26] MEDS: FUROSEMIDE 40 MG TAB PO SCH (07:43)
[2022-11-26] MEDS: THIAMINE 100 MG TAB PO SCH (07:44)
[2022-11-26] MEDS: HEPARIN SODIUM,PORCINE/PF 5,000 UNIT/0.5 ML SYRINGE SQ SCH ×3 (07:44→23:45)
[2022-11-26] MEDS: MIDODRINE 5 MG TAB PO SCH (07:44)
[2022-11-26] MEDS: ONDANSETRON 4 MG/2 ML VIAL IVP PRN (15:24)
--- NOTE | 2022-11-26 16:02 | P.PN ---
Subjective Progress Note Date: 11/26/22 Hospital course: Patient is a pleasant 42-year-old male with a past medical history of alcohol abuse disorder and alcoholic liver cirrhosis. He presented to the emergency department on 11/21/22 with a chief complaint of severe abdominal pain and distention due to ascites. Patient reported last paracentesis being approximately 3 weeks ago on October 29 with removal of 17 L of ascitic fluid. Patient also reports last alcoholic drink greater than 6 months ago. he reports he has been evaluated by a draft roller picker with [place] and is currently awaiting evaluation for operations support professionals to discuss possibility of liver transplant. Patient underwent full evaluation in the emergency department. CBC completed showing normocytic anemia with hemoglobin of 10.0 and thrombocytopenia with platelet count of 147. Coagulation profile showing elevated PT of 15.4, INR 1.5, and PTT of 30.7. BMP revealing hypernatremia with sodium of 131 and hypocarbia with carbon dioxide of 19. Liver profile showing elevated total bili of 2.8 and ammonia level of 56. Amylase and lipase normal findings. MELD score upon admission was 15 with a 6% estimated 3 month mortality. On 11/24/22 patient underwent paracentesis with removal of 18 L of straw-colored fluid. Fluid culture and cell count to be completed. Patient then received a total of 100 g of albumin status post paracentesis. Patient then evaluated by draft roller picker, and due to recurrent large volume paracentesis, recommending transfer to [facility] for evaluation by operations support professionals. This transfer was initiated, however patient received notification that his mother on 11/25/22. In attempts to get the patient home to attend mother's , discussed with draft roller picker. Patient to undergo another paracentesis tomorrow and may then be discharged for outpatient follow-up with draft roller picker next week. Physical exam: Patient seen and fully evaluated at bedside this morning. Patient is tearful regarding recent passing of his mother and continues to report diffuse abdominal pain and tenderness. Abdomen again very large distended with ascitic fluid due to cirrhosis. Vital signs reviewed and stable. General: Chronically ill-appearing, emaciated extremities with large distended cirrhotic abdomen. Derm: Skin warm and dry, Jaundice. Diffuse lesions with scabbing from picking/sc ratching. Head: Atraumatic, normocephalic and symmetric. Eyes: EOMs intact, no lid lag, and positive for scleral icterus Mouth: no lip lesions, mucus membranes moist Cardiovascular: regular rate and rhythm with normal S1S2, systolic murmur, positive posterior tibial pulses bilaterally, and cap refill < 2 seconds. Lungs: Respirations even, regular, and unlabored on room air. Lungs CTA bilate rally, no rhonchi, no rales, no wheezing, and no accessory muscle usage. Abdominal: Large distended cirrhotic abdomen with diffuse tenderness upon palpation. Ext: ROM intact. No gross muscle atrophy, no edema, no contractures Neuro: Speech clear, face symmetrical and CN II-XII grossly intact with no noted focal neuro deficits Psych: Alert and oriented to person, place, time, and situation. Appropriate and pleasant affect. Assessment and Plan of Care: Decompensated Alcoholic Liver cirrhosis Elevated ammonia level secondary to liver cirrhosis Thrombocytopenia secondary to alcohol abuse and cirrhosis Chronic normocytic anemia secondary to alcohol abuse and cirrhosis Hyperbilirubinemia secondary to long standing history of alcohol abuse and alcoholic liver cirrhosis -Continue IV antibiotics: Rocephin 2 g every 24 hours prophylactically for SBP -Interventional radiology took patient for paracentesis on 11/24/22 with removal of a reported 18 L of straw-colored fluid. -Patient then received a total of 100 g of albumin status post paracentesis. -Awaiting peritoneal fluid culture and cell count to result -Patient to continue with Lasix 40 mg daily, Aldactone 100 mg daily, and mido drine 5 mg daily -Ammonia levels showed improvement status post increasing lactulose to 30 mg 3 times daily with levels decreasing from 69 down to 30. -Continue Symptomatic care and pain management with dilaudid 1 mg IVP q3 hours as needed for pain and zofran 4 mg IVP q 8 hours as needed for nausea. -Industrial Relations Commissioner following discussed plan of care with gastroenterology BROADCAST CORRESPONDENT and draft roller picker. -Initial plan was for transfer to [facility], for patient to undergo evaluation by a operations support professionals secondary to his decompensated liver cirrhosis. However patient received devastating news that his mother on 11/25/22. After long discussion with draft roller picker and gastroenterology BROADCAST CORRESPONDENT, plan is for patient to have repeat paracentesis tomorrow morning and to be discharged once stable so he can attend his mother's . Patient will need to follow up outpatient with Dr. Negron for further evaluation and scheduling to be evaluated by operations support professionals for possibility of being placed on transplant list. -Order placed for repeat morning CBC, CMP, ammonia and PT/INR to be completed prior to scheduled morning paracentesis. CODE STATUS: Full code DVT prophylaxis: Heparin Discussed with: Pt, draft roller picker, gastroenterology BROADCAST CORRESPONDENT and RN Anticipated discharge date: Tentative plan is for repeat parcentesis tomorrow morning and patient may then be discharged once stable. Anticipated discharge place: Home Patient was seen independently by Nurse Pracitioner. This document was prepared using [employer] dictation software. Please allow for errors in eeg tech, while rare they do occur. Pako Mendoza NP rendered care for this patient independently, reviewed the findings and plan as documented in the note above. I did not physically speak with or examine the patient on this date. Objective - Vital Signs Vital signs: Vital Signs Temp 97.9 F 11/26/22 07:30 Pulse 91 11/26/22 07:30 Resp 16 11/26/22 07:30 BP 100/51 11/26/22 07:30 Pulse Ox 95 11/26/22 07:30 FiO2 Intake & Output 11/25/22 11/26/22 11/26/22 18:59 06:59 18:59 Intake Total 650 Balance 650 Intake: Intake, IV Titration 50 Amount cefTRIAXone 2 gm In 50 Sodium Chloride 0.9% 50 ml @ 100 mls/hr IVPB Q24HR [facility] Rx#:[id number] Oral 600 Other: Voiding Method Toilet Toilet Toilet # Voids 2 2 # Bowel Movements 2 - Labs CBC & Chem 7: 11/25/22 05:56 11/25/22 05:56 Labs: Abnormal Lab Results - Last 24 Hours (Table) 11/25/22 11/25/22 Range/Units 05:56 05:56 RBC 2.80 L (4.40-5.60) X 10*6/uL Hgb 7.9 L (13.0-17.0) d/dL Hct 24.7 L (39.6-50.0) % RDW 19.6 H (11.5-14.5) % Plt Count 112 L (140-440) X 10*3/uL Sodium 133 L (135-145) mmol/L Carbon Dioxide 21.1 L (21.6-31.8) mmol/L Calcium 8.0 L (8.7-10.3) mg/dL Total Bilirubin 2.3 H (0.3-1.2) mg/dL ALT 7 L (10-49) U/L Total Protein 5.2 L (6.2-8.2) d/dL Albumin 2.5 L (3.8-4.9) d/dL Albumin/Globulin Ratio 0.93 L (1.60-3.17) Ratio
--- NOTE | 2022-11-26 16:48 | P.PN ---
Subjective Progress Note Date: 11/26/22 Principal diagnosis: Ascites, cirrhosis of the liver This is a 42-year-old male with known alcoholic cirrhosis of the liver who has been seen multiple times in the past and presented with abdominal pain and ascites. Patient states he is not had any transportation has not followed up with gastroenterology, has not followed up with his PCP with the [place] and has not been compliant with taking medications because he ran out. Patient lives alone states he has no support. Presented back to the emergency department with complaints of abdominal pain and distention. Patient has been to the emergency department multiple times for ascites. His last paracentesis was 10/29/2022 wi th 13 L removed. Patient states he has not had any alcohol for 6-7 months. Gastroenterology was consulted for cirrhosis of the liver. Labs WBC 8.4 hemoglobin 9.1 hematocrit 29 platelet count 160,000 sodium 132 potassium 4.3 BUN 20 and 1.2 total bilirubin 2.2 AST 28 PLT 13 alkaline phosphatase 78 ammonia 33 11/25/2022 Patient seen and examined today as a follow-up. Yesterday he underwent parac entesis with 18 L removed. He received albumin following. Today he states his abdomen is hurting and cramping due to his lactulose. He states he had several bowel movements yesterday up to 9 or 10. He is afebrile. Total bilirubin 2.3 AST 18 ALT 7 alkaline phosphatase 50 ammonia 30 11/26/2022 Patient seen and examined today as a follow-up. He is lying in bed. He states he is feeling a little bit better today. Apparently patient's mother yesterday. Ammonia level has been trending down. Patient is having at least 3-4 bowel movements daily with lactulose. Objective - Vital Signs Vital signs: Vital Signs Temp 98.2 F 11/26/22 02:05 Pulse 91 11/26/22 02:05 Resp 13 11/26/22 02:05 BP 99/60 11/26/22 02:05 Pulse Ox 98 11/26/22 02:05 FiO2 Intake & Output 11/25/22 11/26/22 11/26/22 18:59 06:59 18:59 Intake Total 650 Balance 650 Intake: Intake, IV Titration 50 Amount cefTRIAXone 2 gm In 50 Sodium Chloride 0.9% 50 ml @ 100 mls/hr IVPB Q24HR [facility] Rx#:[id number] Oral 600 Other: Voiding Method Toilet Toilet # Voids 2 2 # Bowel Movements 2 - Exam General appearance: The patient is alert, oriented, appears in no acute distress. HET: Head is normocephalic and atraumatic. Conjunctiva pink. Sclera anicteric. Neck: Supple without lymphadenopathy. Abdomen: Soft, large distended abdomen with ascites. No guarding or rigidity. Extremities: Normal skin color and turgor. No pedal edema Skin: Rash/scratches over her arms and legs and abdomen. jaundice Neurological: No focal deficits. Alert and oriented. - Labs CBC & Chem 7: 11/25/22 05:56 11/25/22 05:56 Labs: Abnormal Lab Results - Last 24 Hours (Table) 11/25/22 11/25/22 Range/Units 05:56 05:56 RBC 2.80 L (4.40-5.60) X 10*6/uL Hgb 7.9 L (13.0-17.0) d/dL Hct 24.7 L (39.6-50.0) % RDW 19.6 H (11.5-14.5) % Plt Count 112 L (140-440) X 10*3/uL Sodium 133 L (135-145) mmol/L Carbon Dioxide 21.1 L (21.6-31.8) mmol/L Calcium 8.0 L (8.7-10.3) mg/dL Total Bilirubin 2.3 H (0.3-1.2) mg/dL ALT 7 L (10-49) U/L Total Protein 5.2 L (6.2-8.2) d/dL Albumin 2.5 L (3.8-4.9) d/dL Albumin/Globulin Ratio 0.93 L (1.60-3.17) Ratio Assessment and Plan (1) Decompensation of cirrhosis of liver Narrative/Plan: 42-year-old male with long-standing history of alcohol abuse presenting with decompensated alcoholic cirrhosis of the liver. Patient with large amount of abdominal ascites, he is noncompliant with his care not making any of his appointments reportedly due to transportation issues. He has not been taking his diuretics as prescribed. Recent paracentesis 10/29/2022 with 13 L removed again today paracentesis with 19 L removed. Discussed with patient importance of compliance of medications and follow-up appointments. Patient will need follow-up with gastroenterology to schedule outpatient paracentesis. Continue Lasix, Aldactone and lactulose. Patient with overall poor prognosis if he is noncompliant with care. Continue current recommendations and outpatient follow-up. Current Visit: Yes Status: Acute Code(s): K72.90 - HEPATIC FAILURE, UNSPECIFIED WITHOUT COMA; K74.60 - UNSPECIFIED CIRRHOSIS OF LIVER SNOMED Code(s): 912057384 (2) Alcoholic cirrhosis of liver with ascites Narrative/Plan: 42-year-old male with long-standing history of alcohol abuse presenting with decompensated alcoholic cirrhosis of the liver. Patient with large amount of abdominal ascites, he is noncompliant with his care not making any of his appointments reportedly due to transportation issues. He has not been taking his diuretics as prescribed. Recent paracentesis 10/29/2022 with 13 L removed again today paracentesis with 19 L removed. Discussed with patient importance of compliance of medications and follow-up appointments. Patient will need fo llow-up with gastroenterology to schedule outpatient paracentesis. Continue Lasix, Aldactone and lactulose. Current Visit: Yes Status: Acute Code(s): K70.31 - ALCOHOLIC CIRRHOSIS OF LIVER WITH ASCITES SNOMED Code(s): 924470567 (3) History of alcohol abuse Current Visit: Yes Status: Acute Code(s): F10.11 - ALCOHOL ABUSE, IN REMISSION SNOMED Code(s): 510659630 (4) Anemia Current Visit: No Status: Acute Code(s): D64.9 - ANEMIA, UNSPECIFIED SNOMED Code(s): 628870432 (5) Thrombocytopenia Current Visit: No Status: Acute Code(s): D69.6 - THROMBOCYTOPENIA, UNSPECIFIED SNOMED Code(s): 699122324 Plan: 1. Continue symptomatic and supportive care 2. Continue Aldactone and Lasix as ordered 3. Continue lactulose 30 g 3 times a day, titrate for 3-4 bowel movements daily 4. Patient is status post paracentesis. Will order repeat therapeutic paracentesis tomorrow 5. Low sodium diet 6. Alcohol abstinence 7. Social work consulted 8. Discussed with patient importance of medication compliance and follow-up appointments. 9. Patient is cleared for discharge following paracentesis and albumin tomorrow Thank you for this consultation. Dr. Reinaldo Negron I agree with the dictator's note, documented as a scribe by Zuleyma Arriola.
[2022-11-27] MEDS: HYDROmorphone 1 MG/ML 1 ML SYRINGE IVP PRN ×2 (05:25→09:59)
[2022-11-27] MEDS: PANTOPRAZOLE 40 MG TABLET PO SCH ×2 (05:25→16:08)
[2022-11-27] MEDS: HEPARIN SODIUM,PORCINE/PF 5,000 UNIT/0.5 ML SYRINGE SQ SCH (07:37)
[2022-11-27] MEDS: MIDODRINE 5 MG TAB PO SCH (09:46)
[2022-11-27] MEDS: FUROSEMIDE 40 MG TAB PO SCH (09:46)
[2022-11-27] MEDS: THIAMINE 100 MG TAB PO SCH (09:46)
[2022-11-27] MEDS: SPIRONOLACTONE 25 MG TAB PO SCH (09:46)
[2022-11-27] MEDS: LACTULOSE 20 GM/30 ML CUP PO SCH ×3 (09:46→21:36)
[2022-11-27 12:11] LABS: HGB 8.3 d/dL (13.0-17.0); MCH 27.9 pg (27.0-32.0); MCHC 31.9 d/dL (32.0-37.0); MCV 87.5 FL (80.0-97.0); Mean Platelet Volume 10.2 FL (9.5-12.2); NRBC Per 100 WBC 0 X 10*3/uL (0.00-0.01); Platelet Count 112 X 10*3/uL (140-440); RBC 2.97 X 10*6/uL (4.40-5.60); RDW 19.2 % (11.5-14.5); WBC 7.51 X 10*3/uL (4.50-10.00)
[2022-11-27] MEDS: ALBUMIN HUMAN 25% 50 ML in EMPTY BAG 1 BAG IVPB SCH ×4 (13:41→14:31)
[2022-11-27 14:05] LABS: ALT 10 U/L (10-49); AST 22 U/L (14-35); Albumin 2.6 d/dL (3.8-4.9); Alkaline Phosphatase 55 U/L (41-126); Blood Urea Nitrogen 17.3 mg/dL (9.0-27.0); Calcium 7.9 mg/dL (8.7-10.3); Carbon Dioxide 20.7 mmol/L (21.6-31.8); Chloride 100 mmol/L (96-109); Globulin 2.9 d/dL (1.6-3.3); Glucose 110 mg/dL (70-110); Potassium 3.8 mmol/L (3.5-5.5); Sodium 129 mmol/L (135-145); Total Bilirubin 1.3 mg/dL (0.3-1.2); Total Protein 5.5 d/dL (6.2-8.2)
--- NOTE | 2022-11-27 14:41 | P.PN ---
Subjective Progress Note Date: 11/27/22 Principal diagnosis: Ascites, cirrhosis of the liver This is a 42-year-old male with known alcoholic cirrhosis of the liver who has been seen multiple times in the past and presented with abdominal pain and ascites. Patient states he is not had any transportation has not followed up with gastroenterology, has not followed up with his PCP with the [place] and has not been compliant with taking medications because he ran out. Patient lives alone states he has no support. Presented back to the emergency department with complaints of abdominal pain and distention. Patient has been to the emergency department multiple times for ascites. His last paracentesis was 10/29/2022 wi th 13 L removed. Patient states he has not had any alcohol for 6-7 months. Gastroenterology was consulted for cirrhosis of the liver. Labs WBC 8.4 hemoglobin 9.1 hematocrit 29 platelet count 160,000 sodium 132 potassium 4.3 BUN 20 and 1.2 total bilirubin 2.2 AST 28 PLT 13 alkaline phosphatase 78 ammonia 33 11/25/2022 Patient seen and examined today as a follow-up. Yesterday he underwent parac entesis with 18 L removed. He received albumin following. Today he states his abdomen is hurting and cramping due to his lactulose. He states he had several bowel movements yesterday up to 9 or 10. He is afebrile. Total bilirubin 2.3 AST 18 ALT 7 alkaline phosphatase 50 ammonia 30 11/26/2022 Patient seen and examined today as a follow-up. He is lying in bed. He states he is feeling a little bit better today. Apparently patient's mother yesterday. Ammonia level has been trending down. Patient is having at least 3-4 bowel movements daily with lactulose. 11/27/2022 Patient seen and examined today for follow-up. He is lying in bed. He is without any acute changes through the night. No complaints at this time. Denies any abdominal pain, nausea, vomiting. No chest pain or shortness of breath. He is scheduled for paracentesis today. Continues to have regular bowel movements. Objective - Vital Signs Vital signs: Vital Signs Temp 98.0 F 11/27/22 07:05 Pulse 89 11/27/22 07:05 Resp 16 11/27/22 07:05 BP 103/67 11/27/22 07:05 Pulse Ox 97 11/27/22 07:05 FiO2 Intake & Output 11/26/22 11/27/22 11/27/22 18:59 06:59 18:59 Other: Voiding Method Toilet Toilet # Voids 2 2 # Bowel Movements 1 1 - Exam General appearance: The patient is alert, oriented, appears in no acute distress. HET: Head is normocephalic and atraumatic. Conjunctiva pink. Sclera anicteric. Neck: Supple without lymphadenopathy. Abdomen: Soft, large distended abdomen with ascites. No guarding or rigidity. Extremities: Normal skin color and turgor. No pedal edema Skin: Rash/scratches over her arms and legs and abdomen. jaundice Neurological: No focal deficits. Alert and oriented. - Labs CBC & Chem 7: 11/27/22 07:29 11/27/22 07:29 Labs: Abnormal Lab Results - Last 24 Hours (Table) 11/27/22 Range/Units 07:29 Ammonia 37 H (<30) umol/L Microbiology - Last 24 Hours (Table) 11/24/22 10:45 Anaerobic Culture - Preliminary Ascites Fluid 11/24/22 10:45 Gram Stain - Preliminary Ascites Fluid Body Fluid Culture - Preliminary Assessment and Plan (1) Decompensation of cirrhosis of liver Narrative/Plan: 42-year-old male with long-standing history of alcohol abuse presenting with decompensated alcoholic cirrhosis of the liver. Patient with large amount of abdominal ascites, he is noncompliant with his care not making any of his appointments reportedly due to transportation issues. He has not been taking his diuretics as prescribed. Recent paracentesis 10/29/2022 with 13 L removed again today paracentesis with 19 L removed. Discussed with patient importance of compliance of medications and follow-up appointments. Patient will need follow-up with gastroenterology to schedule outpatient paracentesis. Continue Lasix, Aldactone and lactulose. Patient with overall poor prognosis if he is noncompliant with care. Continue current recommendations and outpatient follow-up. Current Visit: Yes Status: Acute Code(s): K72.90 - HEPATIC FAILURE, UNSPECIFIED WITHOUT COMA; K74.60 - UNSPECIFIED CIRRHOSIS OF LIVER SNOMED Code(s): 129772007 (2) Alcoholic cirrhosis of liver with ascites Narrative/Plan: 42-year-old male with long-standing history of alcohol abuse presenting with decompensated alcoholic cirrhosis of the liver. Patient with large amount of abdominal ascites, he is noncompliant with his care not making any of his appointments reportedly due to transportation issues. He has not been taking his diuretics as prescribed. Recent paracentesis 10/29/2022 with 13 L removed again today paracentesis with 19 L removed. Discussed with patient importance of compliance of medications and follow-up appointments. Patient will need follow-up with gastroenterology to schedule outpatient paracentesis. Continue Lasix, Aldactone and lactulose. Current Visit: Yes Status: Acute Code(s): K70.31 - ALCOHOLIC CIRRHOSIS OF LIVER WITH ASCITES SNOMED Code(s): 927819812 (3) History of alcohol abuse Current Visit: Yes Status: Acute Code(s): F10.11 - ALCOHOL ABUSE, IN REMISSION SNOMED Code(s): 045457050 (4) Anemia Current Visit: No Status: Acute Code(s): D64.9 - ANEMIA, UNSPECIFIED SNOMED Code(s): 254881541 (5) Thrombocytopenia Current Visit: No Status: Acute Code(s): D69.6 - THROMBOCYTOPENIA, UNSPECIFIED SNOMED Code(s): 829005389 Plan: 1. Continue symptomatic and supportive care 2. Continue Aldactone and Lasix as ordered 3. Continue lactulose 30 g 3 times a day, titrate for 3-4 bowel movements daily 4. Paracentesis ordered. Give albumin with paracentesis 5. Low sodium diet 6. Alcohol abstinence 7. Social work consulted 8. Discussed with patient importance of medication compliance and follow-up appointments. 9. Patient is cleared for discharge following paracentesis and albumin Thank you for this consultation. We will sign off at this time. Dr. Reinaldo Negron I agree with the dictator's note, documented as a scribe by Zuleyma Arriola.
[2022-11-27 14:44] LABS: INR 1.37 sec (0.93-1.11); Prothrombin Time 15.3 sec (9.9-11.9)
--- NOTE | 2022-11-27 14:53 | P.PN ---
Subjective Progress Note Date: 11/27/22 Patient is a pleasant 42-year-old male with a past medical history of alcohol abuse disorder and alcoholic liver cirrhosis. He presented to the emergency department on 11/21/22 with a chief complaint of severe abdominal pain and distention due to ascites. Patient reported last paracentesis being approxim ately 3 weeks ago on October 29 with removal of 17 L of ascitic fluid. Patient also reports last alcoholic drink greater than 6 months ago. he reports he has been evaluated by a iron molder helper with [place] and is currently awaiting evaluation for manager welding to discuss possibility of liver transplant. Patient underwent full evaluation in the emergency department. CBC completed showing normocytic anemia with hemoglobin of 10.0 and thrombocytopenia with platelet count of 147. Coagulation profile showing elevated PT of 15.4, INR 1.5, and PTT of 30.7. BMP revealing hypernatremia with sodium of 131 and hypocarbia with carbon dioxide of 19. Liver profile showing elevated total bili of 2.8 and ammonia level of 56. Amylase and lipase normal findings. MELD score upon admission was 15 with a 6% estimated 3 month mortality. On 11/24/22 patient underwent paracentesis with removal of 18 L of straw-colored fluid. Fluid culture and cell count to be completed. Patient then received a total of 100 g of albumin status post paracentesis. Patient then evaluated by iron molder helper, and due to recu rrent large volume paracentesis, recommending transfer to [facility] for evaluation by manager welding. This transfer was initiated, however patient received notification that his mother on 11/25/22. In attempts to get the patient home to attend mother's , discussed with iron molder helper. Patient to undergo another paracentesis today. 11/27 Patient was seen and examined. No acute events overnight. He reports abdominal distension. He is pending paracentesis. CBC shows hemoglobin of 8.3 with platelet count of 112. INR is 1.37. CMP shows sodium 129, bicarb of 20.7, calcium of 7.9, total bilirubin of 1.3. Ammonia is 37. Albumin is 2.6. Vital signs reviewed and stable. General: Chronically ill-appearing, emaciated extremities with large distended cirrhotic abdomen. Derm: Skin warm and dry, Jaundice. Head: Atraumatic, normocephalic and symmetric. Eyes: EOMs intact, no lid lag, and positive for scleral icterus Cardiovascular: regular rate and rhythm with normal S1S2 Lungs: Respirations even, regular, and unlabored on room air. Lungs CTA bilaterally, no rhonchi, no rales, no wheezing, and no accessory muscle usage. Abdominal: Large distended cirrhotic abdomen. Ext: ROM intact. No gross muscle atrophy, no edema, no contractures Neuro: Speech clear, face symmetrical Psych: Alert and oriented to person, place, time, and situation. Appropriate and pleasant affect. Decompensated Alcoholic Liver cirrhosis Elevated ammonia level secondary to liver cirrhosis Thrombocytopenia secondary to alcohol abuse and cirrhosis Chronic normocytic anemia secondary to alcohol abuse and cirrhosis Hyperbilirubinemia secondary to long standing history of alcohol abuse and alcoholic liver cirrhosis -Continue IV antibiotics: Rocephin 2 g every 24 hours prophylactically for SBP -Interventional radiology took patient for paracentesis on 11/24/22 with removal of a reported 18 L of straw-colored fluid. -Patient then received a total of 100 g of albumin status post paracentesis. -Awaiting peritoneal fluid culture and cell count to result -Patient to continue with Lasix 40 mg daily, Aldactone 100 mg daily, and midodrine 5 mg daily -Ammonia levels showed improvement status post increasing lactulose to 30 mg 3 times daily with levels decreasing from 69 down to 30. -Continue Symptomatic care and pain management with dilaudid 1 mg IVP q3 hours as needed for pain and zofran 4 mg IVP q 8 hours as needed for nausea. 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 -Initial plan was for transfer to [facility], for patient to undergo evaluation by a manager welding secondary to his decompensated liver cirrhosis. However patient received devastating news that his mother on 11/25/22. After long discussion with iron molder helper and gastroenterology WIND TURBINE TECHNICIAN, plan is for patient to have repeat paracentesis tomorrow morning and to be discharged once stable so he can attend his mother's . Patient will need to follow up outpatient with Dr. Negron for further evaluation and scheduling to be evaluated by manager welding for possibility of being placed on transplant list. CODE STATUS: Full code DVT prophylaxis: Heparin Objective - Vital Signs Vital signs: Vital Signs Temp 98.0 F 11/27/22 07:05 Pulse 84 11/27/22 14:51 Resp 16 08/03/23 14:51 BP 105/59 11/27/22 14:51 Pulse Ox 92 L 11/27/22 14:51 FiO2 Intake & Output 11/26/22 11/27/22 11/27/22 18:59 06:59 18:59 Other: Voiding Method Toilet Toilet Toilet # Voids 2 2 1 # Bowel Movements 1 1 - Labs CBC & Chem 7: 11/27/22 07:29 11/27/22 07:29 Labs: Abnormal Lab Results - Last 24 Hours (Table) 11/27/22 11/27/22 11/27/22 Range/Units 07:29 07:29 07:29 RBC 2.97 L (4.40-5.60) X 10*6/uL Hgb 8.3 L (13.0-17.0) d/dL Hct 26.0 L (39.6-50.0) % MCHC 31.9 L (32.0-37.0) d/dL RDW 19.2 H (11.5-14.5) % Plt Count 112 L (140-440) X 10*3/uL PT 15.3 H (9.9-11.9) sec INR 1.37 H (0.93-1.11) sec Sodium 129 L (135-145) mmol/L Carbon Dioxide 20.7 L (21.6-31.8) mmol/L Calcium 7.9 L (8.7-10.3) mg/dL Total Bilirubin 1.3 H (0.3-1.2) mg/dL Ammonia (<30) umol/L Total Protein 5.5 L (6.2-8.2) d/dL Albumin 2.6 L (3.8-4.9) d/dL Albumin/Globulin Ratio 0.90 L (1.60-3.17) Ratio 11/27/22 Range/Units 07:29 RBC (4.40-5.60) X 10*6/uL Hgb (13.0-17.0) d/dL Hct (39.6-50.0) % MCHC (32.0-37.0) d/dL RDW (11.5-14.5) % Plt Count (140-440) X 10*3/uL PT (9.9-11.9) sec INR (0.93-1.11) sec Sodium (135-145) mmol/L Carbon Dioxide (21.6-31.8) mmol/L Calcium (8.7-10.3) mg/dL Total Bilirubin (0.3-1.2) mg/dL Ammonia 37 H (<30) umol/L Total Protein (6.2-8.2) d/dL Albumin (3.8-4.9) d/dL Albumin/Globulin Ratio (1.60-3.17) Ratio Microbiology - Last 24 Hours (Table) 11/24/22 10:45 Anaerobic Culture - Preliminary Ascites Fluid 11/24/22 10:45 Gram Stain - Preliminary Ascites Fluid Body Fluid Culture - Preliminary
--- NOTE | 2022-11-27 15:28 | US ---
Ultrasound-guided paracentesis. DATE OF EXAM: 11/27/2022 CLINICAL HISTORY: Ascites The procedure was discussed with the patient. The risks, complications, benefits, and alternatives we re discussed and any questions were answered. Informed consent was obtained. The patient was placed s upine on the ultrasound table and prepped and draped in the usual sterile fashion. All elements of maximal barrier technique were utilized. Under ultrasound guidance, access into the right lower quadrant was obtained, via the paracentesis catheter system and direct ultrasound guidanc e. Approximately 18 liters of straw-colored fluid was removed. The patient was stable throughout the pro cedure and remained stable upon discharge from Department of Radiology. IMPRESSION: Successful paracentesis under ultrasound guidance.
[2022-11-27] MEDS: HEPARIN SODIUM,PORCINE 5,000 UNIT/ML 1 ML VIAL SQ SCH (16:07)
[2022-11-27] MEDS ORDERED: ALBUMIN HUMAN 25% 50 ML in EMPTY BAG 1 BAG IVPB SCH (16:30)
[2022-11-27] MEDS ORDERED: MIDODRINE 5 MG TAB PO ONE (23:30)
[2022-11-28] MEDS: SODIUM CHLORIDE 0.9% 250 ML IV SCH ×6 (00:06→02:00)
[2022-11-28] MEDS: HEPARIN SODIUM,PORCINE 5,000 UNIT/ML 1 ML VIAL SQ SCH ×4 (00:38→19:59)
[2022-11-28] MEDS: PANTOPRAZOLE 40 MG TABLET PO SCH ×2 (06:12→18:08)
[2022-11-28] MEDS: LACTULOSE 20 GM/30 ML CUP PO SCH ×3 (08:33→19:59)
[2022-11-28] MEDS: THIAMINE 100 MG TAB PO SCH (08:34)
[2022-11-28] MEDS: MIDODRINE 5 MG TAB PO SCH ×3 (08:34→18:08)
--- NOTE | 2022-11-28 13:35 | P.PN ---
Subjective Progress Note Date: 11/28/22 Patient is a pleasant 42-year-old male with a past medical history of alcohol abuse disorder and alcoholic liver cirrhosis. He presented to the emergency department on 11/21/22 with a chief complaint of severe abdominal pain and distention due to ascites. Patient reported last paracentesis being approxim ately 3 weeks ago on October 29 with removal of 17 L of ascitic fluid. Patient also reports last alcoholic drink greater than 6 months ago. he reports he has been evaluated by a preflight inspector with [place] and is currently awaiting evaluation for naval aircrewman helicopter to discuss possibility of liver transplant. Patient underwent full evaluation in the emergency department. CBC completed showing normocytic anemia with hemoglobin of 10.0 and thrombocytopenia with platelet count of 147. Coagulation profile showing elevated PT of 15.4, INR 1.5, and PTT of 30.7. BMP revealing hypernatremia with sodium of 131 and hypocarbia with carbon dioxide of 19. Liver profile showing elevated total bili of 2.8 and ammonia level of 56. Amylase and lipase normal findings. MELD score upon admission was 15 with a 6% estimated 3 month mortality. On 11/24/22 patient underwent paracentesis with removal of 18 L of straw-colored fluid. Fluid culture and cell count to be completed. Patient then received a total of 100 g of albumin status post paracentesis. Patient then evaluated by preflight inspector, and due to recu rrent large volume paracentesis, recommending transfer to [facility] for evaluation by naval aircrewman helicopter. This transfer was initiated, however patient received notification that his mother on 11/25/22. In attempts to get the patient home to attend mother's , discussed with preflight inspector. Patient to undergo another paracentesis today. 11/27 Patient was seen and examined. No acute events overnight. He reports abdominal distension. He is pending paracentesis. CBC shows hemoglobin of 8.3 with platelet count of 112. INR is 1.37. CMP shows sodium 129, bicarb of 20.7, calcium of 7.9, total bilirubin of 1.3. Ammonia is 37. Albumin is 2.6. 11/28 Patient was seen and examined. Underwent paracentesis yesterday with 18L fluid removal followed by albumin infusion. He reports abdominal pain. His BP is as low as 70s/40s today. Midodrine increased to 10 mg PO TID. General: Chronically ill-appearing, emaciated extremities with large distended cirrhotic abdomen. Derm: Skin warm and dry, Jaundice. Head: Atraumatic, normocephalic and symmetric. Eyes: EOMs intact, no lid lag, and positive for scleral icterus Cardiovascular: regular rate and rhythm with normal S1S2 Lungs: Respirations even, regular, and unlabored on room air. Lungs CTA bilaterally, no rhonchi, no rales, no wheezing, and no accessory muscle usage. Abdominal: Large distended cirrhotic abdomen. Ext: ROM intact. No gross muscle atrophy, no edema, no contractures Neuro: Speech clear, face symmetrical Psych: Alert and oriented to person, place, time, and situation. Appropriate and pleasant affect. Hypotension Decompensated Alcoholic Liver cirrhosis Elevated ammonia level secondary to liver cirrhosis Thrombocytopenia secondary to alcohol abuse and cirrhosis Chronic normocytic anemia secondary to alcohol abuse and cirrhosis Hyperbilirubinemia secondary to long standing history of alcohol abuse and alcoholic liver cirrhosis -Completed a course of Rocephin prophylactically. -Interventional radiology took patient for paracentesis on 11/24/22 with removal of a reported 18 L of straw-colored fluid. -Interventional radiology took patient for paracentesis on 11/27/22 with removal of a reported 18 L of straw-colored fluid. -Awaiting peritoneal fluid culture and cell count to result -Patient to continue with Lasix 40 mg daily, Aldactone 100 mg daily -Midodrine increased to 10 mg PO TID for hypotension on 11/28 -Ammonia levels showed improvement status post increasing lactulose to 30 mg 3 times daily with levels decreasing from 69 down to 30. -Continue Symptomatic care and pain management with dilaudid 1 mg IVP q3 hours as needed for pain and zofran 4 mg IVP q 8 hours as needed for nausea. -Cut Off Tender Glass following discussed plan of care with gastroenterology OUTBOARD MOTOR ASSEMBLER and preflight inspector. -Initial plan was for transfer to [facility], for patient to undergo evaluation by a naval aircrewman helicopter secondary to his decompensated liver cirrhosis. However patient received devastating news that his mother on 11/25/22. Patient will need to follow up outpatient with Dr. Negron for further evaluation and scheduling to be evaluated by naval aircrewman helicopter for possibility of being placed on transplant list. CODE STATUS: Full code DVT prophylaxis: Heparin Objective - Vital Signs Vital signs: Vital Signs Temp 98.1 F 11/28/22 08:00 Pulse 83 08/04/23 08:00 Resp 16 11/28/22 08:00 BP 97/51 11/28/22 08:00 Pulse Ox 96 11/28/22 08:00 FiO2 Intake & Output 11/27/22 11/28/22 11/28/22 18:59 06:59 18:59 Other: Voiding Method Toilet Toilet # Voids 1 2 - Labs CBC & Chem 7: 11/27/22 07:29 11/27/22 07:29 Labs: Abnormal Lab Results - Last 24 Hours (Table) 11/27/22 11/27/22 Range/Units 07:29 07:29 PT 15.3 H (9.9-11.9) sec INR 1.37 H (0.93-1.11) sec Sodium 129 L (135-145) mmol/L Carbon Dioxide 20.7 L (21.6-31.8) mmol/L Calcium 7.9 L (8.7-10.3) mg/dL Total Bilirubin 1.3 H (0.3-1.2) mg/dL Total Protein 5.5 L (6.2-8.2) d/dL Albumin 2.6 L (3.8-4.9) d/dL Albumin/Globulin Ratio 0.90 L (1.60-3.17) Ratio Microbiology - Last 24 Hours (Table) 11/24/22 10:45 Gram Stain - Preliminary Ascites Fluid Body Fluid Culture - Preliminary
[2022-11-28] MEDS: HYDROmorphone 1 MG/ML 1 ML SYRINGE IVP PRN ×3 (13:55→21:31)
[2022-11-28] MEDS: ALBUMIN HUMAN 25% 50 ML in EMPTY BAG 1 BAG IVPB SCH ×4 (13:57→15:59)
[2022-11-28 14:36] VITALS: BMI 28.5
[2022-11-28] MEDS: ONDANSETRON 4 MG/2 ML VIAL IVP PRN (16:03)
[2022-11-28] MEDS: HYDROcodone/APAP 10-325MG 1 EACH TAB PO PRN (19:54)
[2022-11-29] MEDS: HYDROmorphone 1 MG/ML 1 ML SYRINGE IVP PRN ×4 (00:28→12:47)
[2022-11-29] MEDS: ONDANSETRON 4 MG/2 ML VIAL IVP PRN ×3 (01:24→18:51)
[2022-11-29] MEDS: PANTOPRAZOLE 40 MG TABLET PO SCH ×2 (06:07→17:28)
[2022-11-29] MEDS: MIDODRINE 5 MG TAB PO SCH ×3 (06:07→17:28)
[2022-11-29] MEDS: HEPARIN SODIUM,PORCINE 5,000 UNIT/ML 1 ML VIAL SQ SCH ×3 (09:00→23:55)
[2022-11-29] MEDS: LACTULOSE 20 GM/30 ML CUP PO SCH ×3 (09:01→20:23)
[2022-11-29] MEDS: THIAMINE 100 MG TAB PO SCH (09:01)
--- NOTE | 2022-11-29 14:54 | P.PN ---
Subjective Progress Note Date: 11/29/22 Patient is a pleasant 42-year-old male with a past medical history of alcohol abuse disorder and alcoholic liver cirrhosis. He presented to the emergency department on 11/21/22 with a chief complaint of severe abdominal pain and distention due to ascites. Patient reported last paracentesis being approxim ately 3 weeks ago on October 29 with removal of 17 L of ascitic fluid. Patient also reports last alcoholic drink greater than 6 months ago. he reports he has been evaluated by a duty manager with [place] and is currently awaiting evaluation for assistant counsel to discuss possibility of liver transplant. Patient underwent full evaluation in the emergency department. CBC completed showing normocytic anemia with hemoglobin of 10.0 and thrombocytopenia with platelet count of 147. Coagulation profile showing elevated PT of 15.4, INR 1.5, and PTT of 30.7. BMP revealing hypernatremia with sodium of 131 and hypocarbia with carbon dioxide of 19. Liver profile showing elevated total bili of 2.8 and ammonia level of 56. Amylase and lipase normal findings. MELD score upon admission was 15 with a 6% estimated 3 month mortality. On 11/24/22 patient underwent paracentesis with removal of 18 L of straw-colored fluid. Fluid culture and cell count to be completed. Patient then received a total of 100 g of albumin status post paracentesis. Patient then evaluated by duty manager, and due to recu rrent large volume paracentesis, recommending transfer to [facility] for evaluation by assistant counsel. This transfer was initiated, however patient received notification that his mother on 11/25/22. In attempts to get the patient home to attend mother's , discussed with duty manager. Patient to undergo another paracentesis today. 11/27 Patient was seen and examined. No acute events overnight. He reports abdominal distension. He is pending paracentesis. CBC shows hemoglobin of 8.3 with platelet count of 112. INR is 1.37. CMP shows sodium 129, bicarb of 20.7, calcium of 7.9, total bilirubin of 1.3. Ammonia is 37. Albumin is 2.6. 11/28 Patient was seen and examined. Underwent paracentesis yesterday with 18L fluid removal followed by albumin infusion. He reports abdominal pain. His BP is as low as 70s/40s today. Midodrine increased to 10 mg PO TID. 11/29 Patient was seen and examined. 50 g of albumin ordered yesterday for hypotension. His BP has improved to SBP in the 100s this morning. He continues to report abdominal pain and dry heaving. Plan was to discharge home today but patient reports unsteadiness on his feet and nursing confirms that he was unable to ambulate with them. Patient is currently unsafe for discharge home. General: Chronically ill-appearing, emaciated extremities with large distended cirrhotic abdomen. Derm: Skin warm and dry, Jaundice. Head: Atraumatic, normocephalic and symmetric. Eyes: EOMs intact, no lid lag, and positive for scleral icterus Cardiovascular: regular rate and rhythm with normal S1S2 Lungs: Respirations even, regular, and unlabored on room air. Lungs CTA bilaterally, no rhonchi, no rales, no wheezing, and no accessory muscle usage. Abdominal: Large distended cirrhotic abdomen. Ext: ROM intact. No gross muscle atrophy, no edema, no contractures Neuro: Speech clear, face symmetrical Psych: Alert and oriented to person, place, time, and situation. Appropriate and pleasant affect. Hypotension Decompensated Alcoholic Liver cirrhosis Elevated ammonia level secondary to liver cirrhosis Thrombocytopenia secondary to alcohol abuse and cirrhosis Chronic normocytic anemia secondary to alcohol abuse and cirrhosis Hyperbilirubinemia secondary to long standing history of alcohol abuse and alcoholic liver cirrhosis -Completed a course of Rocephin prophylactically. -Interventional radiology took patient for paracentesis on 11/24/22 with removal of a reported 18 L of straw-colored fluid. -Interventional radiology took patient for paracentesis on 11/27/22 with removal of a reported 18 L of straw-colored fluid. -Awaiting peritoneal fluid culture and cell count to result -Patient to continue with Lasix 40 mg daily, Aldactone 100 mg daily -Midodrine increased to 10 mg PO TID for hypotension on 11/28 -Ammonia levels showed improvement status post increasing lactulose to 30 mg 3 times daily with levels decreasing from 69 down to 30. -Continue Symptomatic care and pain management with dilaudid 1 mg IVP q3 hours as needed for pain and zofran 4 mg IVP q 8 hours as needed for nausea. -Clinical Data Programmer following discussed plan of care with gastroenterology LATHE SCALPER OPERATOR and duty manager. -Initial plan was for transfer to [facility], for patient to undergo evaluation by a assistant counsel secondary to his decompensated liver cirrhosis. However patient received devastating news that his mother on 11/25/22. Patient will need to follow up outpatient with Dr. Negron for further evaluation and scheduling to be evaluated by assistant counsel for possibility of being placed on transplant list. CODE STATUS: Full code DVT prophylaxis: Heparin Objective - Vital Signs Vital signs: Vital Signs Temp 98.1 F 11/29/22 08:00 Pulse 96 11/29/22 08:00 Resp 16 11/29/22 08:00 BP 91/61 11/29/22 08:00 Pulse Ox 99 11/29/22 08:00 FiO2 Intake & Output 11/28/22 11/29/22 11/29/22 18:59 06:59 18:59 Intake Total 118 Balance 118 Weight 95.254 kg Intake: Oral 118 Other: Voiding Method Toilet # Voids 1 - Labs CBC & Chem 7: 11/27/22 07:29 11/27/22 07:29 Labs: Microbiology - Last 24 Hours (Table) 11/24/22 10:45 Anaerobic Culture - Final Ascites Fluid
[2022-11-29] MEDS: HYDROcodone/APAP 10-325MG 1 EACH TAB PO PRN (18:51)
[2022-11-29] MEDS: traMADol 50 MG TAB PO PRN (20:29)
[2022-11-30] MEDS: ONDANSETRON 4 MG/2 ML VIAL IVP PRN ×2 (02:19→09:24)
[2022-11-30] MEDS: HYDROcodone/APAP 10-325MG 1 EACH TAB PO PRN ×2 (02:19→09:24)
[2022-11-30] MEDS: MIDODRINE 5 MG TAB PO SCH ×2 (06:21→12:28)
[2022-11-30] MEDS: PANTOPRAZOLE 40 MG TABLET PO SCH (06:21)
[2022-11-30] MEDS: LACTULOSE 20 GM/30 ML CUP PO SCH ×2 (08:52→16:51)
[2022-11-30] MEDS: THIAMINE 100 MG TAB PO SCH (08:52)
[2022-11-30] MEDS: HEPARIN SODIUM,PORCINE 5,000 UNIT/ML 1 ML VIAL SQ SCH ×2 (08:52→16:51)
--- NOTE | 2022-11-30 12:26 | P.DS ---
Providers Date of admission: 11/21/22 23:50 Expected date of discharge: 11/30/22 Attending physician: Alena Apple MD Primary care physician: [facility] Hospital Course: Patient is a pleasant 42-year-old male with a past medical history of alcohol abuse disorder and alcoholic liver cirrhosis. He presented to the emergency department on 11/21/22 with a chief complaint of severe abdominal pain and distention due to ascites. Patient reported last paracentesis being approximately 3 weeks ago on October 29 with removal of 17 L of ascitic fluid. Patient also reports last alcoholic drink greater than 6 months ago. he reports he has been evaluated by a truck crane operator helper with [place] and is currently awaiting evaluation for driver guard to discuss possibility of liver transplant. Patient underwent full evaluation in the emergency department. CBC completed showing normocytic anemia with hemoglobin of 10.0 and thrombocytopenia with platelet count of 147. Coagulation profile showing elevated PT of 15.4, INR 1.5, and PTT of 30.7. BMP revealing hypernatremia with sodium of 131 and hypocarbia with carbon dioxide of 19. Liver profile showing elevated total bili of 2.8 and ammonia level of 56. Amylase and lipase normal findings. MELD score upon admission was 15 with a 6% estimated 3 month mortality. On 11/24/22 patient underwent paracentesis with removal of 18 L of straw-colored fluid. Fluid culture and cell count to be completed. Patient then received a total of 100 g of albumin status post paracentesis. Patient then evaluated by truck crane operator helper, and due to recurrent large volume paracentesis, recommending transfer to [facility] for evaluation by driver guard. This transfer was initiated, however patient received notification that his mother on 11/25/22. In attempts to get the patient home to attend mother's , discussed with truck crane operator helper. Patient to undergo another paracentesis today. 11/27 Patient was seen and examined. No acute events overnight. He reports abdominal distension. He is pending paracentesis. CBC shows hemoglobin of 8.3 with platelet count of 112. INR is 1.37. CMP shows sodium 129, bicarb of 20.7, calcium of 7.9, total bilirubin of 1.3. Ammonia is 37. Albumin is 2.6. 11/28 Patient was seen and examined. Underwent paracentesis yesterday with 18L fluid removal followed by albumin infusion. He reports abdominal pain. His BP is as low as 70s/40s today. Midodrine increased to 10 mg PO TID. 11/29 Patient was seen and examined. 50 g of albumin ordered yesterday for hypotension. His BP has improved to SBP in the 100s this morning. He continues to report abdominal pain and dry heaving. Plan was to discharge home today but patient reports unsteadiness on his feet and nursing confirms that he was unable to ambulate with them. Patient is currently unsafe for discharge home. 11/30 Patient was seen and examined. No acute events overnight. BP has improved to 114/65. Patient states that he is comfortable being discharged home today. He'll be discharged home with [place] as needed for pain. Also prescribed Midodrin, Protonix, Lasix, Zofran when necessary, lactulose as well. Advised to follow-up with GI within 1 week of discharge. Patient verbalized understanding of the plan. Pertinent studies and procedures as above. General: Chronically ill-appearing, emaciated extremities with large distended cirrhotic abdomen. Derm: Skin warm and dry, Jaundice. Head: Atraumatic, normocephalic and symmetric. Eyes: EOMs intact, no lid lag, and positive for scleral icterus Cardiovascular: regular rate and rhythm with normal S1S2 Lungs: Respirations even, regular, and unlabored on room air. Lungs CTA bilaterally, no rhonchi, no rales, no wheezing, and no accessory muscle usage. Abdominal: Large distended cirrhotic abdomen. Ext: ROM intact. No gross muscle atrophy, no edema, no contractures Neuro: Speech clear, face symmetrical Psych: Alert and oriented to person, place, time, and situation. Appropriate and pleasant affect. Discharge diagnosis: Hypotension Decompensated Alcoholic Liver cirrhosis Elevated ammonia level secondary to liver cirrhosis Thrombocytopenia secondary to alcohol abuse and cirrhosis Chronic normocytic anemia secondary to alcohol abuse and cirrhosis Hyperbilirubinemia secondary to long standing history of alcohol abuse and alcoholic liver cirrhosis This complex discharge took 35 minutes to complete. Patient Condition at Discharge: Stable Plan - Discharge Summary Discharge Rx Participant: No New Discharge Prescriptions: New Midodrine [ProAmatine] 10 mg PO AC-TID #90 tab Pantoprazole [Protonix] 40 mg PO AC-BID #60 tab Furosemide [Lasix] 40 mg PO DAILY #30 tablet Ondansetron Odt [Zofran Odt] 4 mg PO Q8HR PRN #30 tab PRN Reason: Nausea And Vomiting Lactulose [Cephulac] 30 gm PO TID #4050 ml HYDROcodone/APAP 10-325MG [[place] 10-325] 1 each PO Q4HR PRN #18 tab PRN Reason: Pain Discharge Medication List HYDROcodone/APAP 10-325MG [[place] 10-325] 1 each PO Q4HR PRN #18 tab 11/29/22 [Rx] Lactulose [Cephulac] 30 gm PO TID #4050 ml 11/29/22 [Rx] Midodrine [ProAmatine] 10 mg PO AC-TID #90 tab 11/29/22 [Rx] Pantoprazole [Protonix] 40 mg PO AC-BID #60 tab 11/29/22 [Rx] Furosemide [Lasix] 40 mg PO DAILY #30 tablet 11/30/22 [Rx] Ondansetron Odt [Zofran Odt] 4 mg PO Q8HR PRN #30 tab 11/30/22 [Rx] Follow up Appointment(s)/Referral(s): Margo Salgado NPC [REFERRING] - 1 Week Gina Negron MD [STAFF PHYSICIAN] - 1 Week [facility] [Primary Care Provider] - 1-2 days Patient Instructions/Handouts: Low-Sodium Diet (ED), Low-Sodium Diet (DC) Discharge Disposition: HOME SELF-CARE
[2022-11-30 14:23] VITALS: BP 113/67; PULSE 104; RESP 16; TEMP 98.6
== END 2022-11-30 17:04 | disposition home or self-care (01) | DRG 433 ==
LOC: EC 21:01 → 6NMEDSUR 23:50 → OBSVTOIN 23:50 → 6NMEDSUR 11-22 00:05
PROVIDERS: ADMIT Internal Medicine; ATTEND Internal Medicine
PROC: 0W9G3ZX Drainage of Peritoneal Cavity, Percutaneous Approach, Diagnostic (ICD-10-PCS; principal; 2022-11-24)
PROC: 0W9G3ZZ Drainage of Peritoneal Cavity, Percutaneous Approach (ICD-10-PCS; 2022-11-27)
DX: K70.31 Alcoholic cirrhosis of liver with ascites (principal); E87.1 Hypo-osmolality and hyponatremia; R64 Cachexia; K72.10 Chronic hepatic failure without coma; D64.9 Anemia, unspecified; I95.9 Hypotension, unspecified; D69.59 Other secondary thrombocytopenia; F10.20 Alcohol dependence, uncomplicated; E78.5 Hyperlipidemia, unspecified; I10 Essential (primary) hypertension; E87.70 Fluid overload, unspecified; R79.1 Abnormal coagulation profile; T50.2X6A Underdosing of carbonic-anhydrase inhibitors, benzothiadiazides and other diuretics, initial encounter; F17.200 Nicotine dependence, unspecified, uncomplicated; F32.A Depression, unspecified; F43.10 Post-traumatic stress disorder, unspecified; M54.6 Pain in thoracic spine; R26.81 Unsteadiness on feet; Z68.28 Body mass index [BMI] 28.0-28.9, adult; Z91.128 Patient's intentional underdosing of medication regimen for other reason; Z91.199 Patient's noncompliance with other medical treatment and regimen due to unspecified reason; Z79.899 Other long term (current) drug therapy; Z60.2 Problems related to living alone; Z88.6 Allergy status to analgesic agent
CPT/HCPCS: 36415; 49083; 80053; 82140; 82150; 83690; 83735; 84100; 85025; 85027; 85610; 85730; 87070; 87075; 87205; 89050; 96374; 99285

== ENCOUNTER 2022-12-11 06:46 | Inpatient (IN) | payer OTHER ==
[2022-12-11 07:15] LABS: Anisocytosis Slight; Basophils # (A) 0.1 k/uL (0-0.2); Basophils % (A) 1 %; Eosinophils # (A) 0.3 k/uL (0-0.7); Eosinophils % (A) 2 %; HCT 27.7 % (39.0-53.0); HGB 9.2 gm/dL (13.0-17.5); Lymphocytes # (A) 1.6 k/uL (1.0-4.8); Lymphocytes % (A) 13 %; MCH 29.8 pg (25.0-35.0); MCHC 33.2 g/dL (31.0-37.0); MCV 89.8 fL (80.0-100.0); Monocytes # (A) 0.8 k/uL (0-1.0); Monocytes % (A) 7 %; Neutrophils % (A) 76 %; Platelet Count 182 k/uL (150-450); RBC 3.08 m/uL (4.30-5.90); RDW 18.2 % (11.5-15.5); WBC 11.9 k/uL (3.8-10.6)
--- NOTE | 2022-12-11 07:21 | ED ---
General Adult HPI - General Chief complaint: Abdominal Pain Stated complaint: Abd Pain Time Seen by Provider: 12/11/22 06:51 Source: patient, EMS, RN notes reviewed Mode of arrival: EMS Limitations: no limitations - History of Present Illness Initial comments: 42-year-old male presents emergency Department with chief complaint of abdominal pain. Patient has alcoholic cirrhosis, liver failure. Patient's states states he was here a few weeks ago had paracentesis. He states it 37 L removed between 2 paracentesis. Patient denies fevers or chills. Patient states pain is been building for last few days. Patient denies any significant vomiting chest pain shortness of breath. Patient states is old abdominal discomfort. Patient did receive fentanyl prior arrival. - Related Data Home Medications Medication Instructions Recorded Confirmed HYDROcodone/APAP 10-325MG [[place] 1 tab PO Q4HR PRN 12/11/22 12/11/22 10-325] Previous Rx's Medication Instructions Recorded Lactulose [Cephulac] 30 gm PO TID #4050 ml 11/29/22 Midodrine [ProAmatine] 10 mg PO AC-TID #90 tab 11/29/22 Pantoprazole [Protonix] 40 mg PO AC-BID #60 tab 11/29/22 Furosemide [Lasix] 40 mg PO DAILY #30 tablet 11/30/22 Ondansetron Odt [Zofran Odt] 4 mg PO Q8HR PRN #30 tab 11/30/22 Allergies Allergy/AdvReac Type Severity Reaction Status Date / Time ibuprofen [From Motrin] Allergy Swelling Verified 12/11/22 07:46 Lips naproxen Allergy Swelling Verified 12/11/22 07:46 Lips Review of Systems ROS Statement: Those systems with pertinent positive or pertinent negative responses have been documented in the HPI. ROS Other: All systems not noted in ROS Statement are negative. Past Medical History Past Medical History: Hyperlipidemia, Hypertension, Liver Disease, Pneumonia Additional Past Medical History / Comment(s): Alcoholism, past withdrawals with tremors/diaphoresis, elevated LFTs, alcoholic liver cirrhosis, ascities with paracentesis, severe sepsis/aspiration pneumonia, occasional upper back pain. History of Any Multi-Drug Resistant Organisms: None Reported Past Surgical History: No Surgical Hx Reported Additional Past Surgical History / Comment(s): Pt states he has never had surgery Past Anesthesia/Blood Transfusion Reactions: Unable to Obtain Additional Past Anesthesia/Blood Transfusion Reaction / Comment(s): Pt states he has never had surgery. Past Psychological History: Depression, PTSD Smoking Status: Current every day smoker Past Alcohol Use History: Abuse Past Drug Use History: None Reported - Past Family History Mother Family Medical History: Cancer Additional Family Medical History / Comment(s): Mother has colon cancer. Father History Unknown: Yes Additional Family Medical History / Comment(s): All pt knows about his father is that he is . General Exam Limitations: no limitations General appearance: alert, in no apparent distress Head exam: Present: atraumatic, normocephalic, normal inspection Eye exam: Present: normal appearance, PERRL, EOMI. Absent: scleral icterus, conjunctival injection, periorbital swelling ENT exam: Present: normal exam, normal oropharynx, mucous membranes moist Neck exam: Present: normal inspection, full ROM. Absent: tenderness, meningismus, lymphadenopathy Respiratory exam: Present: normal lung sounds bilaterally. Absent: respiratory distress, wheezes, rales, rhonchi, stridor Cardiovascular Exam: Present: regular rate, normal rhythm, normal heart sounds. Absent: systolic murmur, diastolic murmur, rubs, gallop, clicks GI/Abdominal exam: Present: soft, distended, tenderness, normal bowel sounds. Absent: guarding, rebound, rigid Skin exam: Present: warm, dry, intact, normal color. Absent: rash Course Vital Signs 12/11/22 12/11/22 12/11/22 06:47 08:00 09:00 Temperature 98.3 F Pulse Rate 102 H 104 H 94 Pulse Rate [ Pulse Oximetery ] Respiratory 20 20 20 Rate Blood Pressure 109/64 102/61 95/55 Blood Pressure [Right Arm] O2 Sat by Pulse 96 98 98 Oximetry 12/11/22 12/11/22 12/11/22 09:28 10:00 11:00 Temperature Pulse Rate 93 97 95 Pulse Rate [ Pulse Oximetery ] Respiratory 19 17 20 Rate Blood Pressure 94/61 94/61 92/40 Blood Pressure [Right Arm] O2 Sat by Pulse 96 97 97 Oximetry 12/11/22 12/11/22 12/11/22 11:10 11:20 11:44 Temperature Pulse Rate Pulse Rate [ 94 95 Pulse Oximetery ] Respiratory 18 18 Rate Blood Pressure 102/64 Blood Pressure 109/63 112/65 [Right Arm] O2 Sat by Pulse 98 98 97 Oximetry 12/11/22 12/11/22 12/11/22 12:10 12:28 12:48 Temperature Pulse Rate Pulse Rate [ 92 91 93 Pulse Oximetery ] Respiratory 18 18 18 Rate Blood Pressure Blood Pressure 100/58 101/62 103/60 [Right Arm] O2 Sat by Pulse 96 96 97 Oximetry 12/11/22 12/11/22 12:58 13:18 Temperature Pulse Rate 92 Pulse Rate [ 94 Pulse Oximetery ] Respiratory 16 19 Rate Blood Pressure 127/54 Blood Pressure 96/52 [Right Arm] O2 Sat by Pulse 96 97 Oximetry Medical Decision Making - Medical Decision Making Was pt. sent in by a medical professional or institution (TASHA Camejo, STEAM CLEANING MACHINE OPERATOR, urgent care, hospital, or senior care...) When possible be specific @ -No Did you speak to anyone other than the patient for history (EMS, parent, family, police, friend...)? What history was obtained from this source @ -EMS provided prehospital treatment, vitals and complaint Did you review nursing and triage notes (agree or disagree)? Why? @ -I reviewed and agree with nursing and triage notes Were old charts reviewed (outside hosp., previous admission, EMS record, old EKG, old radiological studies, urgent care reports/EKG's, senior care records)? Report findings @ -Reviewed prior blood pressures, consults. Differential Diagnosis (chest pain, altered mental status, abdominal pain women, abdominal pain men, vaginal bleeding, weakness, fever, dyspnea, syncope, headache, dizziness, GI bleed, back pain, seizure, CVA, palpatations, mental health, musculoskeletal)? @ -Differential Abdominal Pain Men: Appendicitis, cholecystitis, diverticulosis, ischemic bowel, pancreatitis, hepatitis, UTI, gastroenteritis, AAA, incarcerated hernia, bowel obstruction, constipation, inflammatory bowel, hepatitis, peptic ulcer disease, splenic infarction, perforated viscus, testicular torsion, this is not meant to be an all-inclusive list EKG interpreted by me (3pts min.). @ -None X-rays interpreted by me (1pt min.). @ -None done CT interpreted by me (1pt min.). @ -None done U/S interpreted by me (1pt. min.). @ -None done What testing was considered but not performed or refused? (CT, X-rays, U/S, labs)? Why? @ -None What meds were considered but not given or refused? Why? @ -None Did you discuss the management of the patient with other professionals (roxann drake i.e., Dr., PA, STEAM CLEANING MACHINE OPERATOR, lab, RT, psych nurse, social media developer, travel accommodations rater, teacher, chief credit officer, correctional counselor/case manager)? Give summary @ -Dr. Couch for admission given patient's significant ascites requiring paracentesis Was smoking cessation discussed for >3mins.? @ -No Was critical care preformed (if so, how long)? @ -No Were there social determinants of health that impacted care today? How? (Gian elessness, low income, unemployed, alcoholism, drug addiction, transportation, low edu. Level, literacy, decrease access to med. care, nursing home, rehab)? @ -No Was there de-escalation of care discussed even if they declined (Discuss DNR or withdrawal of care, Hospice)? DNR status @ -No What co-morbidities impacted this encounter? (DM, HTN, Smoking, COPD, CAD, Cancer, CVA, ARF, Chemo, Hep., AIDS, mental health diagnosis, sleep apnea, morbid obesity)? @ -Liver failure, ascites Was patient admitted / discharged? Hospital course, mention meds given and route, prescriptions, significant lab abnormalities, going to OR and other pertinent info. @ -Admitted to observation for paracentesis, pain management. Undiagnosed new problem with uncertain prognosis? @ -No Drug Therapy requiring intensive monitoring for toxicity (Heparin, Nitro, Insulin, Cardizem)? @ -No Were any procedures done? @ -No Diagnosis/symptom? @ -Abdominal pain, ascites, liver failure Acute, or Chronic, or Acute on Chronic? @ -Acute Uncomplicated (without systemic symptoms) or (systemic symptoms)? @ -Complicated Exacerbation, Progression, or Severe Exacerbation? @ -No Poses a threat to life or bodily function? How? (Chest pain, [place], [place], pneumonia, PE, COPD, DKA, ARF, appy, cholecystitis, CVA, Diverticulitis, Homicidal, Suicidal, threat to staff... and all critical care pts) @ -No - Lab Data Result diagrams: 12/11/22 07:02 12/11/22 07:02 Lab Results 12/11/22 12/11/22 12/11/22 Range/Units 07:02 07:02 07:02 WBC 11.9 H (3.8-10.6) k/uL RBC 3.08 L (4.30-5.90) m/uL Hgb 9.2 L (13.0-17.5) gm/dL Hct 27.7 L (39.0-53.0) % MCV 89.8 (80.0-100.0) fL MCH 29.8 (25.0-35.0) pg MCHC 33.2 (31.0-37.0) g/dL RDW 18.2 H (11.5-15.5) % Plt Count 182 (150-450) k/uL MPV 8.0 Neutrophils % 76 % Lymphocytes % 13 % Monocytes % 7 % Eosinophils % 2 % Basophils % 1 % Neutrophils # 9.0 H (1.3-7.7) k/uL Lymphocytes # 1.6 (1.0-4.8) k/uL Monocytes # 0.8 (0-1.0) k/uL Eosinophils # 0.3 (0-0.7) k/uL Basophils # 0.1 (0-0.2) k/uL Anisocytosis Slight PT 13.1 H (9.0-12.0) sec INR 1.3 H (<1.2) APTT 27.6 (22.0-30.0) sec Sodium 125 L (137-145) mmol/L Potassium 4.0 (3.5-5.1) mmol/L Chloride 99 (98-107) mmol/L Carbon Dioxide 17 L (22-30) mmol/L Anion Gap 9 mmol/L BUN 62 H (9-20) mg/dL Creatinine 1.25 (0.66-1.25) mg/dL Est GFR (CKD-EPI)AfAm 83 (>60 ml/min/1.73 sqM) Est GFR (CKD-EPI)NonAf 72 (>60 ml/min/1.73 sqM) Glucose 119 H (74-99) mg/dL Calcium 8.1 L (8.4-10.2) mg/dL Magnesium 2.1 (1.6-2.3) mg/dL Total Bilirubin 1.0 (0.2-1.3) mg/dL AST 44 (17-59) U/L ALT 27 (4-49) U/L Alkaline Phosphatase 81 (38-126) U/L Ammonia (<30) umol/L Total Protein 7.1 (6.3-8.2) g/dL Albumin 2.9 L (3.5-5.0) g/dL Lipase 522 H (23-300) U/L 12/11/22 Range/Units 07:02 WBC (3.8-10.6) k/uL RBC (4.30-5.90) m/uL Hgb (13.0-17.5) gm/dL Hct (39.0-53.0) % MCV (80.0-100.0) fL MCH (25.0-35.0) pg MCHC (31.0-37.0) g/dL RDW (11.5-15.5) % Plt Count (150-450) k/uL MPV Neutrophils % % Lymphocytes % % Monocytes % % Eosinophils % % Basophils % % Neutrophils # (1.3-7.7) k/uL Lymphocytes # (1.0-4.8) k/uL Monocytes # (0-1.0) k/uL Eosinophils # (0-0.7) k/uL Basophils # (0-0.2) k/uL Anisocytosis PT (9.0-12.0) sec INR (<1.2) APTT (22.0-30.0) sec Sodium (137-145) mmol/L Potassium (3.5-5.1) mmol/L Chloride (98-107) mmol/L Carbon Dioxide (22-30) mmol/L Anion Gap mmol/L BUN (9-20) mg/dL Creatinine (0.66-1.25) mg/dL Est GFR (CKD-EPI)AfAm (>60 ml/min/1.73 sqM) Est GFR (CKD-EPI)NonAf (>60 ml/min/1.73 sqM) Glucose (74-99) mg/dL Calcium (8.4-10.2) mg/dL Magnesium (1.6-2.3) mg/dL Total Bilirubin (0.2-1.3) mg/dL AST (17-59) U/L ALT (4-49) U/L Alkaline Phosphatase (38-126) U/L Ammonia 30 H (<30) umol/L Total Protein (6.3-8.2) g/dL Albumin (3.5-5.0) g/dL Lipase (23-300) U/L Disposition Clinical Impression: Alcoholic cirrhosis of liver with ascites, Hyponatremia Disposition: ADMITTED IP TO THIS HOSP Condition: Poor Time of Disposition: 08:47
[2022-12-11 07:28] LABS: INR 1.3 (<1.2); Partial Thromboplastin Time 27.6 sec (22.0-30.0); Prothrombin Time 13.1 sec (9.0-12.0)
[2022-12-11 07:41] LABS: ALT 27 U/L (4-49); AST 44 U/L (17-59); African American GFR (CKD) 83 (>60 ml/min/1.73 sqM); Albumin 2.9 g/dL (3.5-5.0); Alkaline Phosphatase 81 U/L (38-126); Anion Gap 9 mmol/L; Blood Urea Nitrogen 62 mg/dL (9-20); Calcium 8.1 mg/dL (8.4-10.2); Carbon Dioxide 17 mmol/L (22-30); Chloride 99 mmol/L (98-107); Glucose 119 mg/dL (74-99); Lipase 522 U/L (23-300); Magnesium 2.1 mg/dL (1.6-2.3); Non-African American GFR(CKD) 72 (>60 ml/min/1.73 sqM); Sodium 125 mmol/L (137-145); Total Protein 7.1 g/dL (6.3-8.2)
[2022-12-11] MEDS ORDERED: fentaNYL (PF) 50 MCG/ML 2 ML AMP IVP STA (08:46)
[2022-12-11] MEDS ORDERED: NALOXONE 0.4 MG/ML 1 ML VIAL IV PRN (08:48)
--- NOTE | 2022-12-11 13:14 | US ---
Ultrasound-guided paracentesis. DATE OF EXAM: 12/11/2022 CLINICAL HISTORY: Ascites The procedure was discussed with the patient. The risks, complications, benefits, and alternatives we re discussed and any questions were answered. Informed consent was obtained. The patient was placed s upine on the ultrasound table and prepped and draped in the usual sterile fashion. All elements of maximal barrier technique were utilized. Under ultrasound guidance, access into the right lower quadrant was obtained, via the paracentesis catheter system and direct ultrasound guidanc e. Approximately 15.4 liters of straw-colored fluid was removed. The patient was stable throughout the p rocedure and remained stable upon discharge from Department of Radiology. IMPRESSION: Successful paracentesis under ultrasound guidance.
[2022-12-11] MEDS: ALBUMIN HUMAN 25% 50 ML in EMPTY BAG 1 BAG IVPB SCH ×8 (13:58→17:21)
[2022-12-11] MEDS ORDERED: HYDROmorphone 1 MG/ML 1 ML SYRINGE IVP PRN (15:00)
--- NOTE | 2022-12-11 15:02 | P.HPIM ---
History of Present Illness H&P Date: 12/11/22 Patient is a pleasant 42-year-old male with a past medical history of alcohol abuse disorder and alcoholic liver cirrhosis. He was recently admitted from 11/22-11/30 for decompensated alcoholic cirrhosis requiring multiple paracentesis and removal of large amount of fluid. He presents back to the ED today for abdominal distention and pain. He does not currently drink alcohol. He has no other complaints. He denies any headache, lower extremity edema, nausea or vomiting, fever or chills, cough, chest pain, shortness breath, palpitations, changes in urination or bowel habits. No changes in appetite or weight. He denies any dizziness, numbness/weakness/tingling of the extremities. [facility] He lives in [facility] and has had difficulty making it to appointments due to transportation needs. In the ED, he was noted to be borderline hypotensive with BP of 96/52. Vital signs were otherwise stable. CBC showed leukocytosis of 11.9 and hemoglobin of 9.2. INR was 1.3. CMP showed sodium 125, bicarb of 17, BUN of 62, glucose 119, calcium of 8.1, albumin 2.9. Ammonia was 30. Lipase 522. Patient is admitted for decompensated alcoholic cirrhosis with IR consultation for therapeutic paracentesis. Pertinent positives and negatives as discussed in HPI, a complete review of systems was performed and all other systems are negative. General: Chronically ill-appearing, emaciated extremities with large distended cirrhotic abdomen. Derm: Skin warm and dry, Jaundice. Head: Atraumatic, normocephalic and symmetric. Eyes: EOMs intact, no lid lag, and positive for scleral icterus Cardiovascular: regular rate and rhythm with normal S1S2 Lungs: Respirations even, regular, and unlabored on room air. Lungs CTA bilaterally, no rhonchi, no rales, no wheezing, and no accessory muscle usage. Abdominal: Large distended cirrhotic abdomen. Ext: ROM intact. No gross muscle atrophy, no edema, no contractures Neuro: Speech clear, face symmetrical Psych: Alert and oriented to person, place, time, and situation. Appropriate and pleasant affect. Decompensated Alcoholic Liver cirrhosis Elevated ammonia level secondary to liver cirrhosis Leukocytosis of unknown etiology Chronic normocytic anemia secondary to alcohol abuse and cirrhosis Hyperbilirubinemia secondary to long standing history of alcohol abuse and alcoholic liver cirrhosis -Plans for IR consult for therapeutic paracentesis. -Plans to order 100 g of albumin status post paracentesis. -Awaiting peritoneal fluid culture and cell count to result -Patient to continue with Lasix 40 mg daily, and midodrine 5 mg TID -Continue Symptomatic care and pain management with dilaudid 0.5 mg IVP q3 hours as needed for pain and zofran 4 mg IVP q 8 hours as needed for nausea. -Patient will need to follow up with PCP or GI in the outpatient setting for scheduled therapeutic paracentesis CODE STATUS: Full code DVT prophylaxis: Heparin Past Medical History Past Medical History: Hyperlipidemia, Hypertension, Liver Disease, Pneumonia Additional Past Medical History / Comment(s): Alcoholism, past withdrawals with tremors/diaphoresis, elevated LFTs, alcoholic liver cirrhosis, ascities with paracentesis, severe sepsis/aspiration pneumonia, occasional upper back pain. History of Any Multi-Drug Resistant Organisms: None Reported Past Surgical History: No Surgical Hx Reported Additional Past Surgical History / Comment(s): Pt states he has never had surgery Past Anesthesia/Blood Transfusion Reactions: Unable to Obtain Additional Past Anesthesia/Blood Transfusion Reaction / Comment(s): Pt states he has never had surgery. Past Psychological History: Depression, PTSD Smoking Status: Current every day smoker Past Alcohol Use History: Abuse Past Drug Use History: None Reported - Past Family History Mother Family Medical History: Cancer Additional Family Medical History / Comment(s): Mother has colon cancer. Father History Unknown: Yes Additional Family Medical History / Comment(s): All pt knows about his father is that he is . Medications and Allergies Home Medications Medication Instructions Recorded Confirmed Type Lactulose [Cephulac] 30 gm PO TID #4050 ml 11/29/22 12/11/22 Rx Midodrine [ProAmatine] 10 mg PO AC-TID #90 tab 11/29/22 12/11/22 Rx Pantoprazole [Protonix] 40 mg PO AC-BID #60 tab 11/29/22 12/11/22 Rx Furosemide [Lasix] 40 mg PO DAILY #30 tablet 11/30/22 12/11/22 Rx Ondansetron Odt [Zofran Odt] 4 mg PO Q8HR PRN #30 tab 11/30/22 12/11/22 Rx HYDROcodone/APAP 10-325MG [[place] 1 tab PO Q4HR PRN 12/11/22 12/11/22 History 10-325] Allergies Allergy/AdvReac Type Severity Reaction Status Date / Time ibuprofen [From Motrin] Allergy Swelling Verified 12/11/22 07:46 Lips naproxen Allergy Swelling Verified 12/11/22 07:46 Lips Physical Exam Vitals: Vital Signs Temp Pulse Pulse Resp BP BP Pulse Ox 12/11/22 14:39 97.9 F 89 18 108/54 97 12/11/22 13:30 20 127/54 97 12/11/22 13:18 92 19 127/54 97 12/11/22 13:00 21 96/52 96 12/11/22 12:58 94 16 96/52 96 12/11/22 12:48 93 18 103/60 97 12/11/22 12:30 20 101/62 95 12/11/22 12:28 91 18 101/62 96 12/11/22 12:10 92 18 100/58 96 12/11/22 12:00 19 112/65 96 12/11/22 11:44 95 18 112/65 97 12/11/22 11:20 94 18 109/63 98 12/11/22 11:10 102/64 98 12/11/22 11:00 95 20 92/40 97 12/11/22 10:00 97 17 94/61 97 12/11/22 09:28 93 19 94/61 96 12/11/22 09:00 94 20 95/55 98 12/11/22 08:00 104 H 20 102/61 98 12/11/22 06:47 98.3 F 102 H 20 109/64 96 Intake and Output 12/11/22 12/11/22 12/11/22 06:59 14:59 22:59 Other: Weight 90.718 kg Results CBC & Chem 7: 12/11/22 07:02 12/11/22 07:02 Labs: Abnormal Lab Results - Last 24 Hours (Table) 12/11/22 12/11/22 12/11/22 Range/Units 07:02 07:02 07:02 WBC 11.9 H (3.8-10.6) k/uL RBC 3.08 L (4.30-5.90) m/uL Hgb 9.2 L (13.0-17.5) gm/dL Hct 27.7 L (39.0-53.0) % RDW 18.2 H (11.5-15.5) % Neutrophils # 9.0 H (1.3-7.7) k/uL PT 13.1 H (9.0-12.0) sec INR 1.3 H (<1.2) Sodium 125 L (137-145) mmol/L Carbon Dioxide 17 L (22-30) mmol/L BUN 62 H (9-20) mg/dL Glucose 119 H (74-99) mg/dL Calcium 8.1 L (8.4-10.2) mg/dL Ammonia (<30) umol/L Albumin 2.9 L (3.5-5.0) g/dL Lipase 522 H (23-300) U/L 12/11/22 Range/Units 07:02 WBC (3.8-10.6) k/uL RBC (4.30-5.90) m/uL Hgb (13.0-17.5) gm/dL Hct (39.0-53.0) % RDW (11.5-15.5) % Neutrophils # (1.3-7.7) k/uL PT (9.0-12.0) sec INR (<1.2) Sodium (137-145) mmol/L Carbon Dioxide (22-30) mmol/L BUN (9-20) mg/dL Glucose (74-99) mg/dL Calcium (8.4-10.2) mg/dL Ammonia 30 H (<30) umol/L Albumin (3.5-5.0) g/dL Lipase (23-300) U/L
[2022-12-11 15:23] LABS: Glucose,Whole Blood 118 mg/dL (70-110)
[2022-12-11] MEDS ORDERED: SODIUM CHLORIDE 0.9% 1,000 ML IV ONE ×3 (15:26→21:49)
[2022-12-11] MEDS: HEPARIN SODIUM,PORCINE 5,000 UNIT/ML 1 ML VIAL SQ SCH (15:28)
[2022-12-11] MEDS: MIDODRINE 5 MG TAB PO SCH (15:28)
[2022-12-11] MEDS: LACTULOSE 20 GM/30 ML CUP PO SCH ×2 (16:09→21:18)
[2022-12-11] MEDS: PANTOPRAZOLE 40 MG TABLET PO SCH (17:31)
[2022-12-11] MEDS: ONDANSETRON 4 MG/2 ML VIAL IVP PRN (18:07)
[2022-12-11 20:23] LABS: Glucose,Whole Blood 134 mg/dL (70-110)
[2022-12-11 20:50] LABS: Glucose,Whole Blood 143 mg/dL (70-110)
[2022-12-11] MEDS: HYDROcodone/APAP 10-325MG 1 EACH TAB PO PRN (21:16)
[2022-12-11] MEDS: NOREPINEPHRINE 4 MG in SODIUM CHLORIDE 0.9% 250 ML IV SCH (23:09)
[2022-12-12] MEDS: HEPARIN SODIUM,PORCINE 5,000 UNIT/ML 1 ML VIAL SQ SCH ×3 (00:19→15:40)
[2022-12-12] MEDS: HYDROmorphone 0.5 MG/0.5 ML SYRINGE IVP PRN ×4 (00:54→20:39)
[2022-12-12] MEDS: HYDROcodone/APAP 10-325MG 1 EACH TAB PO PRN ×2 (03:56→11:49)
[2022-12-12 05:02] LABS: Anisocytosis Slight; Basophils # (A) 0.1 k/uL (0-0.2); Basophils % (A) 1 %; Eosinophils # (A) 0.3 k/uL (0-0.7); Eosinophils % (A) 3 %; HCT 25.1 % (39.0-53.0); HGB 7.9 gm/dL (13.0-17.5); Hypochromasia Slight; Lymphocytes # (A) 1.9 k/uL (1.0-4.8); Lymphocytes % (A) 20 %; MCH 28.9 pg (25.0-35.0); MCHC 31.6 g/dL (31.0-37.0); MCV 91.4 fL (80.0-100.0); Monocytes # (A) 0.6 k/uL (0-1.0); Monocytes % (A) 7 %; Neutrophils # (A) 6.3 k/uL (1.3-7.7); Neutrophils % (A) 68 %; Platelet Count 144 k/uL (150-450); RBC 2.75 m/uL (4.30-5.90); RDW 18.3 % (11.5-15.5); WBC 9.3 k/uL (3.8-10.6)
[2022-12-12 05:17] LABS: ALT 22 U/L (4-49); AST 39 U/L (17-59); African American GFR (CKD) 81 (>60 ml/min/1.73 sqM); Albumin 2.9 g/dL (3.5-5.0); Alkaline Phosphatase 64 U/L (38-126); Anion Gap 9 mmol/L; Blood Urea Nitrogen 60 mg/dL (9-20); Calcium 7.7 mg/dL (8.4-10.2); Carbon Dioxide 14 mmol/L (22-30); Chloride 106 mmol/L (98-107); Glucose 121 mg/dL (74-99); Non-African American GFR(CKD) 70 (>60 ml/min/1.73 sqM); Potassium 3.8 mmol/L (3.5-5.1); Sodium 129 mmol/L (137-145); Total Bilirubin 0.9 mg/dL (0.2-1.3); Total Protein 6.1 g/dL (6.3-8.2)
[2022-12-12] MEDS: PANTOPRAZOLE 40 MG TABLET PO SCH ×2 (06:51→17:54)
[2022-12-12] MEDS: MIDODRINE 5 MG TAB PO SCH ×3 (06:52→17:54)
[2022-12-12] MEDS: NOREPINEPHRINE 4 MG in SODIUM CHLORIDE 0.9% 250 ML IV SCH (07:14)
[2022-12-12] MEDS ORDERED: ALBUMIN HUMAN 25% 50 ML in EMPTY BAG 1 BAG IVPB ONE (08:28)
[2022-12-12] MEDS: LACTULOSE 20 GM/30 ML CUP PO SCH ×2 (08:56→15:39)
--- NOTE | 2022-12-12 10:24 | P.CNPUL ---
History of Present Illness Consult date: 12/12/22 Requesting physician: John Bosch Reason for consult: other (Critical care management) Chief complaint: Abdominal pain History of present illness: This is a pleasant 42-year-old male patient with a known history of hypertension, hyperlipidemia, alcoholic cirrhosis with liver failure. He states his last drink was in April 2022. He does have a history of chronic and ongoing tobacco dependence, depression, posttraumatic stress disorder. He has had multiple paracentesis in the past. He presented here to the emergency room yesterday with increasing abdominal pain and abdominal distention. His last paracentesis was several weeks ago. He was seen by interventional radiology removed 15.4 L of fluid yesterday. Throughout the day and into the evening he was having issues with hypotension. A rapid response team was called shortly after 8 PM and he was transferred to the intensive care unit. His blood pressure at that time was 77/36. He was dizzy and appeared pale. He is now status post 3 L of fluid resuscitation. He is received albumin. He was given his midodrine. He is currently on norepinephrine at 0.1 mcg/kg/m. Resting fairly comfortably in bed. He is on room air. White count 9.3. Hemoglobin 7.9. Platelets 144. Sodium 129. Potassium 3.8. Bicarb 14. BUN 60. Creatinine 1.26. Glucose 121. Lipase 522. TSH 1.59. Cortisol level 2. Heparin for DVT prophylaxis. Remains on Protonix. Review of Systems REVIEW OF SYSTEMS: CONSTITUTIONAL: Denies any recent significant weight loss or weight gain. EYES: Denies change in vision. EARS, NOSE, MOUTH, THROAT: Denies headaches, denies sore throat. CARDIOVASCULAR: Denies chest pain, palpitations or syncopal episodes. RESPIRATORY: Denies shortness of breath, cough, congestion or hemoptysis. GASTROINTESTINAL: Positive for distention and abdominal pain GENITOURINARY: Denies hematuria, denies infections. MUSKULOSKELETAL: Denies pain, denies swelling. INTEGUMENTARY: Denies rash, denies eczema. NEUROLOGICAL: Denies recent memory loss, no recent seizure activity. PSYCHIATRIC: Denies anxiety, denies depression. HEMATOLOGIC/LYMPHATIC: Denies anemia, denies enlarged lymph nodes. Past Medical History Past Medical History: Hyperlipidemia, Hypertension, Liver Disease, Pneumonia Additional Past Medical History / Comment(s): Alcoholism, past withdrawals with tremors/diaphoresis, elevated LFTs, alcoholic liver cirrhosis, ascities with paracentesis, severe sepsis/aspiration pneumonia, occasional upper back pain. History of Any Multi-Drug Resistant Organisms: None Reported Past Surgical History: No Surgical Hx Reported Additional Past Surgical History / Comment(s): Pt states he has never had surgery Past Anesthesia/Blood Transfusion Reactions: Unable to Obtain Additional Past Anesthesia/Blood Transfusion Reaction / Comment(s): Pt states he has never had surgery. 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 Smoking Status: Current every day smoker Past Alcohol Use History: Abuse Additional Past Alcohol Use History / Comment(s): Pt started smoking in 2000 and a pack will last 3 days. Pt has hx of alcoholism. He states he quit drinking in Apr 2022 Past Drug Use History: None Reported - Past Family History Mother Family Medical History: Cancer Additional Family Medical History / Comment(s): Mother has colon cancer. Father History Unknown: Yes Additional Family Medical History / Comment(s): All pt knows about his father is that he is . Medications and Allergies Home Medications Medication Instructions Recorded Confirmed Type Lactulose [Cephulac] 30 gm PO TID #4050 ml 11/29/22 12/11/22 Rx Midodrine [ProAmatine] 10 mg PO AC-TID #90 tab 11/29/22 12/11/22 Rx Pantoprazole [Protonix] 40 mg PO AC-BID #60 tab 11/29/22 12/11/22 Rx Furosemide [Lasix] 40 mg PO DAILY #30 tablet 11/30/22 12/11/22 Rx Ondansetron Odt [Zofran Odt] 4 mg PO Q8HR PRN #30 tab 11/30/22 12/11/22 Rx HYDROcodone/APAP 10-325MG [[place] 1 tab PO Q4HR PRN 12/11/22 12/11/22 History 10-325] Allergies Allergy/AdvReac Type Severity Reaction Status Date / Time ibuprofen [From Motrin] Allergy Swelling Verified 12/11/22 07:46 Lips naproxen Allergy Swelling Verified 12/11/22 07:46 Lips Physical Exam Vitals: Vital Signs Temp Pulse Pulse Resp BP BP Pulse Ox 12/12/22 08:45 82 23 110/61 96 12/12/22 08:30 84 15 113/64 97 12/12/22 08:15 79 15 101/55 96 12/12/22 08:00 98.5 F 80 21 103/50 96 12/12/22 07:45 82 14 106/58 97 12/12/22 07:30 86 14 95/52 96 12/12/22 07:15 77 14 96/55 96 12/12/22 07:00 79 17 93/58 97 12/12/22 06:45 84 19 91/49 97 12/12/22 06:30 74 87/50 96 12/12/22 06:15 75 17 89/45 95 12/12/22 06:00 80 17 92/52 95 12/12/22 05:45 90 96/54 97 12/12/22 05:30 79 17 97/52 95 12/12/22 05:15 84 97/52 95 12/12/22 05:00 84 18 113/54 97 12/12/22 04:45 87 21 113/54 96 12/12/22 04:30 78 15 103/49 12/12/22 04:15 81 21 93/37 95 12/12/22 04:00 98.0 F 80 19 98/45 96 12/12/22 03:45 80 16 97/47 96 12/12/22 03:30 84 18 93/44 97 12/12/22 03:00 80 20 78/37 96 12/12/22 02:30 81 18 85/38 96 12/12/22 02:00 86 18 89/42 96 12/12/22 01:30 80 19 86/42 96 12/12/22 01:00 79 18 98/48 95 12/12/22 00:30 80 14 90/49 97 12/12/22 00:00 98.2 F 75 19 96/49 97 12/11/22 23:30 77 16 76/33 97 12/11/22 23:00 82 15 77/38 97 12/11/22 22:30 84 16 78/39 96 12/11/22 22:00 90 18 94/50 96 12/11/22 21:30 77 19 96/53 96 12/11/22 21:00 98.6 F 80 18 77/24 97 12/11/22 20:00 66/36 12/11/22 19:24 78/35 12/11/22 18:47 94/45 12/11/22 17:24 82/40 12/11/22 16:51 74/37 12/11/22 16:36 76/35 12/11/22 16:22 84/32 12/11/22 16:18 71/29 12/11/22 16:11 70/35 12/11/22 16:09 78/39 12/11/22 15:25 74/29 12/11/22 15:23 72/34 12/11/22 15:22 68/29 12/11/22 15:19 70/40 12/11/22 15:15 67/30 12/11/22 14:39 97.9 F 89 18 108/54 97 12/11/22 13:30 20 127/54 97 12/11/22 13:18 92 19 127/54 97 12/11/22 13:00 21 96/52 96 12/11/22 12:58 94 16 96/52 96 12/11/22 12:48 93 18 103/60 97 12/11/22 12:30 20 101/62 95 12/11/22 12:28 91 18 101/62 96 12/11/22 12:10 92 18 100/58 96 12/11/22 12:00 19 112/65 96 12/11/22 11:44 95 18 112/65 97 12/11/22 11:20 94 18 109/63 98 12/11/22 11:10 102/64 98 12/11/22 11:00 95 20 92/40 97 Intake and Output 12/11/22 12/12/22 12/12/22 22:59 06:59 14:59 Intake Total 1000 2919.394 954.457 Output Total 500 0 Balance 1000 2419.394 954.457 Intake: IV 1000 2000 Sodium Chloride 0.9% 1, 1000 2000 000 ml @ 999 mls/hr IV . Q1H1M [facility] Rx#:[id number] Intake, IV Titration 109.394 184.457 Amount Norepinephrine 4 mg In 109.394 184.457 Sodium Chloride 0.9% 250 ml @ 0.03 MCG/KG/MIN 10. 369 mls/hr IV .Q24H [facility] Rx#:[id number] Oral 810 770 Output: Urine 500 0 Other: Voiding Method Urinal Urinal # Voids 1 0 0 # Bowel Movements 1 Weight 90.718 kg 84.4 kg GENERAL EXAM: Alert, pleasant 42-year-old male patient, on room air, fairly comfortable in no apparent distress. HEAD: Normocephalic. EYES: Normal reaction of pupils, equal size. NOSE: Clear with pink turbinates. THROAT: No erythema or exudates. NECK: No masses, no JVD. CHEST: No chest wall deformity. LUNGS: Equal air entry with no crackles, wheeze, rhonchi or dullness. CVS: S1 and S2 normal with no audible murmur, regular rhythm. ABDOMEN: Distended, soft. Hepatomegaly, normal bowel sounds, no guarding or rigidity. SPINE: No scoliosis or deformity SKIN: No rashes CENTRAL NERVOUS SYSTEM: No focal deficits, tone is normal in all 4 extremities. EXTREMITIES: There is no peripheral edema. No clubbing, no cyanosis. Peripheral pulses are intact. Results - Laboratory Findings CBC and BMP: 12/12/22 04:31 12/12/22 04:31 PT/INR, D-dimer PT 13.1 sec (9.0-12.0) H 12/11/22 07:02 INR 1.3 (<1.2) H 12/11/22 07:02 Abnormal lab findings: Abnormal Labs 12/11/22 12/11/22 12/11/22 07:02 07:02 07:02 WBC 11.9 H RBC 3.08 L Hgb 9.2 L Hct 27.7 L RDW 18.2 H Plt Count Neutrophils # 9.0 H PT 13.1 H INR 1.3 H Sodium 125 L Carbon Dioxide 17 L BUN 62 H Creatinine Glucose 119 H POC Glucose (mg/dL) Calcium 8.1 L Ammonia Total Protein Albumin 2.9 L Lipase 522 H 12/11/22 12/11/22 12/11/22 07:02 15:21 20:21 WBC RBC Hgb Hct RDW Plt Count Neutrophils # PT INR Sodium Carbon Dioxide BUN Creatinine Glucose POC Glucose (mg/dL) 118 H 134 H Calcium Ammonia 30 H Total Protein Albumin Lipase 12/11/22 12/12/22 12/12/22 20:48 04:31 04:31 WBC RBC 2.75 L Hgb 7.9 L Hct 25.1 L RDW 18.3 H Plt Count 144 L Neutrophils # PT INR Sodium 129 L Carbon Dioxide 14 L BUN 60 H Creatinine 1.26 H Glucose 121 H POC Glucose (mg/dL) 143 H Calcium 7.7 L Ammonia Total Protein 6.1 L Albumin 2.9 L Lipase Assessment and Plan Assessment: Abdominal pain secondary to ascites from chronic cirrhosis. Status post paracentesis on 12/11/2022 with 15.4 L of straw-colored fluid removed History of chronic alcoholism states last drink April 2022 Hypotension requiring transfer to the intensive care unit and initiated on norepinephrine, 3 L of fluid resuscitation, albumin 2. History of hypertension Hyperlipidemia History of sepsis secondary to aspiration pneumonia Chronic and ongoing tobacco dependence History of depression Posttraumatic stress disorder Plan: The patient was seen and evaluated Medications and labs reviewed Cortisol level ordered Add Cortef 20 mg in the a.m., 10 mg in the p.m. Give additional albumin 12.5 g Continue midodrine Titrate down the norepinephrine as tolerated Add normal saline at 100 ML's per hour Continue Protonix Heparin for DVT prophylaxis We will continue to follow and make further recommendations based on his c linical status I have personally seen and examined the patient, performed the documentation and the assessment and plan as written. Number of minutes spent on the visit: 20.
[2022-12-12] MEDS: HYDROCORTISONE 20 MG TAB PO SCH (11:48)
[2022-12-12] MEDS: SODIUM CHLORIDE 0.9% 1,000 ML IV SCH ×2 (11:48→21:08)
--- NOTE | 2022-12-12 12:35 | P.PN ---
Subjective Progress Note Date: 12/12/22 Patient is a pleasant 42-year-old male with a past medical history of alcohol abuse disorder and alcoholic liver cirrhosis. He was recently admitted from 11/22-11/30 for decompensated alcoholic cirrhosis requiring multiple paracentesis and removal of large amount of fluid. He presents back to the ED today for abdominal distention and pain. He does not currently drink alcohol. He has no other complaints. He denies any headache, lower extremity edema, nausea or vomiting, fever or chills, cough, chest pain, shortness breath, palpitations, changes in urination or bowel habits. No changes in appetite or weight. He denies any dizziness, numbness/weakness/tingling of the extremities. He [facility] with [facility] for [facility]. He lives in [facility] and has had difficulty making it to appointments due to transportation needs. In the ED, he was noted to be borderline hypotensive with BP of 96/52. Vital signs were otherwise stable. CBC showed leukocytosis of 11.9 and hemoglobin of 9.2. INR was 1.3. CMP showed sodium 125, bicarb of 17, BUN of 62, glucose 119, calcium of 8.1, albumin 2.9. Ammonia was 30. Lipase 522. Patient is admitted for decompensated alcoholic cirrhosis with IR consultation for therapeutic paracentesis. 12/12 Patient was seen and examined. 15L was removed yesterday. Patient was noted to be hypotensive yesterday with MAPs consistently under 65 despite multiple boluses of NS. He was also given 100 g of albumin and Midodrine 10 mg. He was asymptomatic but subsequently moved to ICU for closer monitoring and Levophed drip. This morning he reports feeling generally well with some abdominal discomfort. He is currently on Levophed at 0.04 mcg/kg/min along with Cortef 20 mg PO QD and 10 mg PO QHS. Also on NS at 100 cc/hr. CBC shows Hg 7.9 and Plt 1 44. CMP shows Na 129, bicarb 14, BUN 60, Cr1.26, glucose 121, Ca 7.7, albumin 2.9. TSH 1.59. Cortisol 2. General: Chronically ill-appearing, emaciated extremities with large distended cirrhotic abdomen. Derm: Skin warm and dry, Jaundice. Head: Atraumatic, normocephalic and symmetric. Eyes: EOMs intact, no lid lag, and positive for scleral icterus Cardiovascular: regular rate and rhythm with normal S1S2 Lungs: Respirations even, regular, and unlabored on room air. Lungs CTA bilaterally, no rhonchi, no rales, no wheezing, and no accessory muscle usage. Abdominal: Large distended cirrhotic abdomen. Ext: ROM intact. No gross muscle atrophy, no edema, no contractures Neuro: Speech clear, face symmetrical Psych: Alert and oriented to person, place, time, and situation. Appropriate and pleasant affect. Shock likely due to fluid shift status post paracentesis on Levophed Acute kidney injury Decompensated Alcoholic Liver cirrhosis Elevated ammonia level secondary to liver cirrhosis Leukocytosis of unknown etiology Chronic normocytic anemia secondary to alcohol abuse and cirrhosis Hyperbilirubinemia secondary to long standing history of alcohol abuse and alcoholic liver cirrhosis -Continue ICU monitoring. Attempt to wean Levophed. Maintain MAP > 65. -Continue IV hydration with NS at 100 cc/hr and avoid nephrotoxic agents. Repeat BMP tomorrow morning. -Hemoglobin downtrending with no active signs of bleeding. Could be dilutional. Repeat CBC tomorrow morning. Transfuse if Hg < 7. -Status post 100 g of albumin status post paracentesis. -Continue Midodrine 10 mg TID -Continue Symptomatic care and pain management with Dialudid 1 and 0.5 mg IVP Q3 hours as needed for pain and zofran 4 mg IVP Q8 hours as needed for nausea. -Patient will need to follow up with PCP or GI in the outpatient setting for scheduled therapeutic paracentesis CODE STATUS: Full code DVT prophylaxis: Heparin Objective - Vital Signs Vital signs: Vital Signs Temp 98.4 F 12/12/22 12:00 Pulse 83 12/12/22 12:00 Resp 19 12/12/22 12:00 BP 103/51 12/12/22 12:00 Pulse Ox 95 12/12/22 12:00 FiO2 Intake & Output 12/11/22 12/12/22 12/12/22 18:59 06:59 18:59 Intake Total 3919.394 1158.203 Output Total 500 250 Balance 3419.394 908.203 Weight 90.718 kg 84.4 kg Intake: IV 3000 150 Albumin Human 25% 50 ml 50 In Empty Bag 1 bag @ 200 mls/hr IVPB Q15M [facility] Rx#: [id number] Sodium Chloride 0.9% 1, 100 000 ml @ 100 mls/hr IV . Q10H [facility] Rx#:[id number] Sodium Chloride 0.9% 1, 3000 000 ml @ 999 mls/hr IV . Q1H1M [facility] Rx#:[id number] Intake, IV Titration 109.394 238.203 Amount Norepinephrine 4 mg In 109.394 238.203 Sodium Chloride 0.9% 250 ml @ 0.03 MCG/KG/MIN 10. 369 mls/hr IV .Q24H [facility] Rx#:[id number] Oral 810 770 Output: Urine 500 250 Other: Voiding Method Urinal Urinal # Voids 1 0 0 # Bowel Movements 1 - Labs CBC & Chem 7: 12/12/22 04:31 12/12/22 04:31 Labs: Abnormal Lab Results - Last 24 Hours (Table) 12/11/22 12/11/22 12/11/22 Range/Units 15:21 20:21 20:48 RBC (4.30-5.90) m/uL Hgb (13.0-17.5) gm/dL Hct (39.0-53.0) % RDW (11.5-15.5) % Plt Count (150-450) k/uL Sodium (137-145) mmol/L Carbon Dioxide (22-30) mmol/L BUN (9-20) mg/dL Creatinine (0.66-1.25) mg/dL Glucose (74-99) mg/dL POC Glucose (mg/dL) 118 H 134 H 143 H (70-110) mg/dL Calcium (8.4-10.2) mg/dL Total Protein (6.3-8.2) g/dL Albumin (3.5-5.0) g/dL 12/12/22 12/12/22 Range/Units 04:31 04:31 RBC 2.75 L (4.30-5.90) m/uL Hgb 7.9 L (13.0-17.5) gm/dL Hct 25.1 L (39.0-53.0) % RDW 18.3 H (11.5-15.5) % Plt Count 144 L (150-450) k/uL Sodium 129 L (137-145) mmol/L Carbon Dioxide 14 L (22-30) mmol/L BUN 60 H (9-20) mg/dL Creatinine 1.26 H (0.66-1.25) mg/dL Glucose 121 H (74-99) mg/dL POC Glucose (mg/dL) (70-110) mg/dL Calcium 7.7 L (8.4-10.2) mg/dL Total Protein 6.1 L (6.3-8.2) g/dL Albumin 2.9 L (3.5-5.0) g/dL
[2022-12-12] MEDS: ONDANSETRON 4 MG/2 ML VIAL IVP PRN (20:39)
[2022-12-12] MEDS ORDERED: HYDROCORTISONE 10 MG TAB PO SCH (21:00)
[2022-12-12] MEDS ORDERED: SODIUM BICARBONATE TAB 650 MG TAB PO SCH (21:00)
[2022-12-13] MEDS: LACTULOSE 20 GM/30 ML CUP PO SCH ×2 (01:00→09:43)
[2022-12-13] MEDS: HYDROmorphone 0.5 MG/0.5 ML SYRINGE IVP PRN (01:08)
[2022-12-13] MEDS: HEPARIN SODIUM,PORCINE 5,000 UNIT/ML 1 ML VIAL SQ SCH ×2 (01:08→09:53)
[2022-12-13 04:28] LABS: Anisocytosis Slight; Basophils % (A) 0 %; Eosinophils # (A) 0.1 k/uL (0-0.7); Eosinophils % (A) 2 %; HCT 24.7 % (39.0-53.0); HGB 7.7 gm/dL (13.0-17.5); Hypochromasia Slight; Lymphocytes % (A) 15 %; MCH 29.2 pg (25.0-35.0); MCHC 31.3 g/dL (31.0-37.0); MCV 93.3 fL (80.0-100.0); Mean Platelet Volume 9.6; Monocytes # (A) 0.5 k/uL (0-1.0); Monocytes % (A) 8 %; Neutrophils # (A) 4.9 k/uL (1.3-7.7); Neutrophils % (A) 73 %; Platelet Count 100 k/uL (150-450); RBC 2.65 m/uL (4.30-5.90); RDW 17.8 % (11.5-15.5); WBC 6.7 k/uL (3.8-10.6)
[2022-12-13] MEDS: HYDROcodone/APAP 10-325MG 1 EACH TAB PO PRN ×2 (04:52→09:53)
[2022-12-13 04:57] LABS: African American GFR (CKD) >90 (>60 ml/min/1.73 sqM); Anion Gap 5 mmol/L; Blood Urea Nitrogen 46 mg/dL (9-20); Calcium 7.9 mg/dL (8.4-10.2); Carbon Dioxide 16 mmol/L (22-30); Chloride 109 mmol/L (98-107); Glucose 99 mg/dL (74-99); Non-African American GFR(CKD) >90 (>60 ml/min/1.73 sqM); Potassium 4.3 mmol/L (3.5-5.1); Sodium 130 mmol/L (137-145)
[2022-12-13] MEDS: PANTOPRAZOLE 40 MG TABLET PO SCH (06:46)
[2022-12-13] MEDS: MIDODRINE 5 MG TAB PO SCH (06:46)
[2022-12-13] MEDS: SODIUM CHLORIDE 0.9% 1,000 ML IV SCH (06:48)
[2022-12-13 08:52] VITALS: TEMP 98.1
[2022-12-13] MEDS: HYDROCORTISONE 20 MG TAB PO SCH (09:53)
--- NOTE | 2022-12-13 10:08 | P.PN ---
Subjective Progress Note Date: 12/13/22 This is a pleasant 42-year-old male patient with a known history of hypertension, hyperlipidemia, alcoholic cirrhosis with liver failure. He states his last drink was in April 2022. He does have a history of chronic and ongoing tobacco dependence, depression, posttraumatic stress disorder. He has had multiple paracentesis in the past. He presented here to the emergency room yesterday with increasing abdominal pain and abdominal distention. His last paracentesis was several weeks ago. He was seen by interventional radiology removed 15.4 L of fluid yesterday. Throughout the day and into the evening he was having issues with hypotension. A rapid response team was called shortly after 8 PM and he was transferred to the intensive care unit. His blood pressure at that time was 77/36. He was dizzy and appeared pale. He is now status post 3 L of fluid resuscitation. He is received albumin. He was given his midodrine. He is currently on norepinephrine at 0.1 mcg/kg/m. Resting fairly comfortably in bed. He is on room air. White count 9.3. Hemoglobin 7.9. Platelets 144. Sodium 129. Potassium 3.8. Bicarb 14. BUN 60. Creatinine 1.26. Glucose 121. Lipase 522. TSH 1.59. Cortisol level 2. Heparin for DVT prophylaxis. Remains on Protonix. The patient is seen today 12/13/2022 in follow-up in the intensive care unit. He is awake and alert in no acute distress. He's been off the norepinephrine. He was initiated on Cortef 20 mg in the a.m. and 10 mg p.m. He is maintaining good O2 saturations in the 90s on room air. He has normal saline at 100 ML's per hour. White count 6.7. Hemoglobin 7.7. Platelets 100,000. Sodium 1:30. Potassium 4.3. Bicarb 16. BUN 46. Creatinine 0.90. He remains on heparin for DVT prophylaxis. Objective - Vital Signs Vital signs: Vital Signs Temp 98.1 F 12/13/22 08:00 Pulse 88 12/13/22 08:30 Resp 17 12/13/22 08:30 BP 107/52 12/13/22 08:00 Pulse Ox 95 12/13/22 08:00 FiO2 Intake & Output 12/12/22 12/13/22 12/13/22 18:59 06:59 18:59 Intake Total 2796.684 2910 200 Output Total 700 800 0 Balance 2096.684 2110 200 Weight 91.3 kg Intake: IV 750 1200 200 Albumin Human 25% 50 ml 50 In Empty Bag 1 bag @ 200 mls/hr IVPB Q15M IR[facility] Rx#: [id number] Sodium Chloride 0.9% 1, 700 1200 200 000 ml @ 100 mls/hr IV . Q10H IRINA Rx#:[id number] Intake, IV Titration 276.684 Amount Norepinephrine 4 mg In 276.684 Sodium Chloride 0.9% 250 ml @ 0.03 MCG/KG/MIN 10. 369 mls/hr IV .Q24H IRINA Rx#:[id number] Oral 1770 1710 Output: Urine 700 800 0 Other: Voiding Method Urinal Urinal # Voids 0 1 # Bowel Movements 1 - Exam GENERAL EXAM: Alert, 42-year-old male patient, on room air, comfortable in no apparent distress. HEAD: Normocephalic. EYES: Normal reaction of pupils, equal size. NOSE: Clear with pink turbinates. THROAT: No erythema or exudates. NECK: No masses, no JVD. CHEST: No chest wall deformity. LUNGS: Equal air entry with no crackles, wheeze, rhonchi or dullness. CVS: S1 and S2 normal with no audible murmur, regular rhythm. ABDOMEN: Distended, soft. Hepatomegaly, normal bowel sounds, no guarding or rigidity. SPINE: No scoliosis or deformity SKIN: No rashes CENTRAL NERVOUS SYSTEM: No focal deficits, tone is normal in all 4 extremities. EXTREMITIES: There is no peripheral edema. No clubbing, no cyanosis. Peripheral pulses are intact. - Labs CBC & Chem 7: 12/13/22 04:02 12/13/22 04:02 Labs: Abnormal Lab Results - Last 24 Hours (Table) 12/13/22 12/13/22 Range/Units 04:02 04:02 RBC 2.65 L (4.30-5.90) m/uL Hgb 7.7 L (13.0-17.5) gm/dL Hct 24.7 L (39.0-53.0) % RDW 17.8 H (11.5-15.5) % Plt Count 100 L (150-450) k/uL Sodium 130 L (137-145) mmol/L Chloride 109 H (98-107) mmol/L Carbon Dioxide 16 L (22-30) mmol/L BUN 46 H (9-20) mg/dL Calcium 7.9 L (8.4-10.2) mg/dL Assessment and Plan Assessment: Abdominal pain secondary to ascites from chronic cirrhosis. Status post paracentesis on 12/11/2022 with 15.4 L of straw-colored fluid removed History of chronic alcoholism states last drink April 2022 Hypotension requiring transfer to the intensive care unit and initiated on norepinephrine, 3 L of fluid resuscitation, albumin 3. Recovered History of hypertension Hyperlipidemia History of sepsis secondary to aspiration pneumonia Chronic and ongoing tobacco dependence History of depression Posttraumatic stress disorder Plan: The patient was seen and evaluated Medications and labs reviewed Continue Cortef 20 mg in the a.m., 10 mg in the p.m. Cleared for transfer out of the ICU and possibly home today I have personally seen and examined the patient, performed the documentation and the assessment and plan as written. Number of minutes spent on the visit: 10.
[2022-12-13 10:18] VITALS: BP 104/59
[2022-12-13 11:12] VITALS: RESP 14
--- NOTE | 2022-12-13 11:54 | P.DS ---
Providers Date of admission: 12/11/22 08:39 Expected date of discharge: 12/13/22 Attending physician: John Bosch MD Consults: 12/11/22 21:47 Consult Physician Routine Consulting Provider: Marcin Awan Reason/Comments: ICU management Do you want consulting provider notified?: Already Contacted Primary care physician: [facility] Course: Patient is a pleasant 42-year-old male with a past medical history of alcohol abuse disorder and alcoholic liver cirrhosis. He was recently admitted from 11/22-11/30 for decompensated alcoholic cirrhosis requiring multiple paracentesis and removal of large amount of fluid. He presents back to the ED today for abdominal distention and pain. He does not currently drink alcohol. He has no other complaints. He denies any headache, lower extremity edema, nausea or vomiting, fever or chills, cough, chest pain, shortness breath, palpitations, changes in urination or bowel habits. No changes in appetite or weight. He denies any dizziness, numbness/weakness/tingling of the extremities. [facility]. He lives in [facility] and has had difficulty making it to appointments due to transportation needs. In the ED, he was noted to be borderline hypotensive with BP of 96/52. Vital signs were otherwise stable. CBC showed leukocytosis of 11.9 and hemoglobin of 9.2. INR was 1.3. CMP showed sodium 125, bicarb of 17, BUN of 62, glucose 119, calcium of 8.1, albumin 2.9. Ammonia was 30. Lipase 522. Patient is admitted for decompensated alcoholic cirrhosis with IR consultation for therapeutic paracentesis. 12/12 Patient was seen and examined. 15L was removed yesterday. Patient was noted to be hypotensive yesterday with MAPs consistently under 65 despite multiple boluses of NS. He was also given 100 g of albumin and Midodrine 10 mg. He was asymptomatic but subsequently moved to ICU for closer monitoring and Levophed drip. This morning he reports feeling generally well with some abdominal discomfort. He is currently on Levophed at 0.04 mcg/kg/min along with Cortef 20 mg PO QD and 10 mg PO QHS. Also on NS at 100 cc/hr. CBC shows Hg 7.9 and Plt 144. CMP shows Na 129, bicarb 14, BUN 60, Cr1.26, glucose 121, Ca 7.7, albumin 2.9. TSH 1.59. Cortisol 2. 8/19 Patient was seen and examined. He reported well controlled pain in his abdomen. No dizziness, chest pain, SOB or palpitations. Currently off levophed. Patient is advised to follow-up with his PCP at the [facility] to arrange for biweekly paracentesis. He'll be discharged with [place] as needed for pain. He'll be discharged with Cortef 20 mg by mouth daily, 10 mg by mouth at bedtime. Patient verbalized understanding of the plan. Pertinent procedures include paracentesis ultrasound-guided. General: Chronically ill-appearing, emaciated extremities with large distended cirrhotic abdomen. Derm: Skin warm and dry, Jaundice. Head: Atraumatic, normocephalic and symmetric. Eyes: EOMs intact, no lid lag, and positive for scleral icterus Cardiovascular: regular rate and rhythm with normal S1S2 Lungs: Respirations even, regular, and unlabored on room air. Lungs CTA bilaterally, no rhonchi, no rales, no wheezing, and no accessory muscle usage. Abdominal: Large distended cirrhotic abdomen. Ext: ROM intact. No gross muscle atrophy, no edema, no contractures Neuro: Speech clear, face symmetrical Psych: Alert and oriented to person, place, time, and situation. Appropriate and pleasant affect. Discharge diagnosis: Shock likely due to fluid shift status post paracentesis on Levophed Acute kidney injury Decompensated Alcoholic Liver cirrhosis Elevated ammonia level secondary to liver cirrhosis Leukocytosis of unknown etiology Chronic normocytic anemia secondary to alcohol abuse and cirrhosis Hyperbilirubinemia secondary to long standing history of alcohol abuse and alcoholic liver cirrhosis This complex discharge took 35 minutes to complete. Patient Condition at Discharge: Stable Plan - Discharge Summary Discharge Rx Participant: Yes New Discharge Prescriptions: New Hydrocortisone [Cortef] 10 mg PO HS #30 tab Hydrocortisone [Cortef] 20 mg PO DAILY #30 tab Continue Midodrine [ProAmatine] 10 mg PO AC-TID #90 tab Pantoprazole [Protonix] 40 mg PO AC-BID #60 tab Furosemide [Lasix] 40 mg PO DAILY #30 tablet Ondansetron Odt [Zofran ODT] 4 mg PO Q8HR PRN #30 tab PRN Reason: Nausea And Vomiting Lactulose [Cephulac] 30 gm PO TID #4050 ml Changed HYDROcodone/APAP 10-325MG [[place] 10-325] 1 tab PO Q4HR PRN #18 tab PRN Reason: Pain Discharge Medication List Lactulose [Cephulac] 30 gm PO TID #4050 ml 11/29/22 [Rx] Midodrine [ProAmatine] 10 mg PO AC-TID #90 tab 11/29/22 [Rx] Pantoprazole [Protonix] 40 mg PO AC-BID #60 tab 11/29/22 [Rx] Furosemide [Lasix] 40 mg PO DAILY #30 tablet 11/30/22 [Rx] Ondansetron Odt [Zofran ODT] 4 mg PO Q8HR PRN #30 tab 11/30/22 [Rx] HYDROcodone/APAP 10-325MG [[place] 10-325] 1 tab PO Q4HR PRN #18 tab 12/13/22 [Rx] Hydrocortisone [Cortef] 10 mg PO HS #30 tab 12/13/22 [Rx] Hydrocortisone [Cortef] 20 mg PO DAILY #30 tab 12/13/22 [Rx] Follow up Appointment(s)/Referral(s): Gina Negron MD [STAFF PHYSICIAN] - 1 Week [facility] [Primary Care Provider] - 1-2 days Patient Instructions/Handouts: Paracentesis (DC) Activity/Diet/Wound Care/Special Instructions: Diet: Low salt [facility] with [facility] within 1-2 days of discharge. You will need to arrange for biweekly paracentesis in the outpatient setting. [facility] help you [facility] Discharge Disposition: HOME SELF-CARE
[2022-12-13 12:42] VITALS: PULSE 92
== END 2022-12-13 12:59 | disposition home or self-care (01) | DRG 432 ==
LOC: EC 06:46 → 4SSUR 08:39 → OBSVTOIN 08:39 → 4SSUR 14:35 → 3SCARD 20:16 → 2SICU 20:51
PROVIDERS: ADMIT Family Medicine; ATTEND Family Medicine
PROC: 0W9G3ZZ Drainage of Peritoneal Cavity, Percutaneous Approach (ICD-10-PCS; principal; 2022-12-11)
PROC: 3E043XZ Introduction of Vasopressor into Central Vein, Percutaneous Approach (ICD-10-PCS; 2022-12-11)
DX: K70.31 Alcoholic cirrhosis of liver with ascites (principal); R57.8 Other shock; E87.1 Hypo-osmolality and hyponatremia; N17.9 Acute kidney failure, unspecified; R64 Cachexia; D64.9 Anemia, unspecified; E78.5 Hyperlipidemia, unspecified; F10.21 Alcohol dependence, in remission; F17.210 Nicotine dependence, cigarettes, uncomplicated; F43.10 Post-traumatic stress disorder, unspecified; F32.A Depression, unspecified; I10 Essential (primary) hypertension; Z87.01 Personal history of pneumonia (recurrent); Z86.19 Personal history of other infectious and parasitic diseases; K70.40 Alcoholic hepatic failure without coma; Z79.899 Other long term (current) drug therapy; D72.829 Elevated white blood cell count, unspecified; Z88.6 Allergy status to analgesic agent
CPT/HCPCS: 36415; 49083; 80048; 80053; 82140; 82533; 83690; 83735; 84443; 85025; 85610; 85730; 96361; 96365; 96374; 96375; 99285

== ENCOUNTER 2022-12-22 09:30 | Inpatient (IN) | payer OTHER ==
--- NOTE | 2022-12-22 10:00 | ED ---
General Adult HPI - General Chief complaint: Abdominal Pain Stated complaint: Abd Pain Time Seen by Provider: 12/22/22 09:38 Source: patient, EMS, RN notes reviewed, old records reviewed Mode of arrival: EMS Limitations: no limitations - History of Present Illness Initial comments: 42-year-old liver failure, ascites presenting for evaluation of abdominal distention and pain. No fever. No vomiting. Patient states that he has recently been approved for care home care by the [place] system. Patient states that he last had paracentesis possibly one week ago but has had significant abdominal distention over that one week. No fever. - Related Data Previous Rx's Medication Instructions Recorded Lactulose [Cephulac] 30 gm PO TID #4050 ml 11/29/22 Midodrine [ProAmatine] 10 mg PO AC-TID #90 tab 11/29/22 Pantoprazole [Protonix] 40 mg PO AC-BID #60 tab 11/29/22 Furosemide [Lasix] 40 mg PO DAILY #30 tablet 11/30/22 Ondansetron Odt [Zofran ODT] 4 mg PO Q8HR PRN #30 tab 11/30/22 HYDROcodone/APAP 10-325MG [[place] 1 tab PO Q4HR PRN #18 tab 12/13/22 10-325] Hydrocortisone [Cortef] 10 mg PO HS #30 tab 12/13/22 Hydrocortisone [Cortef] 20 mg PO DAILY #30 tab 12/13/22 Allergies Allergy/AdvReac Type Severity Reaction Status Date / Time ibuprofen [From Motrin] Allergy Swelling Verified 12/22/22 09:47 Lips naproxen Allergy Swelling Verified 12/22/22 09:47 Lips Review of Systems ROS Statement: Those systems with pertinent positive or pertinent negative responses have been documented in the HPI. ROS Other: All systems not noted in ROS Statement are negative. Past Medical History Past Medical History: Hyperlipidemia, Hypertension, Liver Disease, Pneumonia Additional Past Medical History / Comment(s): Alcoholism, past withdrawals with tremors/diaphoresis, elevated LFTs, alcoholic liver cirrhosis, ascities with paracentesis, severe sepsis/aspiration pneumonia, occasional upper back pain. History of Any Multi-Drug Resistant Organisms: None Reported Past Surgical History: No Surgical Hx Reported Additional Past Surgical History / Comment(s): Pt states he has never had surgery Past Anesthesia/Blood Transfusion Reactions: Unable to Obtain Additional Past Anesthesia/Blood Transfusion Reaction / Comment(s): Pt states he has never had surgery. Past Psychological History: Depression, PTSD Smoking Status: Current every day smoker Past Alcohol Use History: None Reported, Abuse Past Drug Use History: None Reported - Past Family History Mother Family Medical History: Cancer Additional Family Medical History / Comment(s): Mother has colon cancer. Father History Unknown: Yes Additional Family Medical History / Comment(s): All pt knows about his father is that he is . General Exam Limitations: no limitations General appearance: alert, in no apparent distress Head exam: Present: atraumatic, normocephalic Eye exam: Present: normal appearance, PERRL ENT exam: Present: normal exam Neck exam: Present: normal inspection. Absent: tenderness, meningismus Respiratory exam: Present: normal lung sounds bilaterally. Absent: respiratory distress, wheezes Cardiovascular Exam: Present: regular rate, normal rhythm GI/Abdominal exam: Present: distended, tenderness, rigid Neurological exam: Present: alert. Absent: motor sensory deficit Skin exam: Present: warm, dry, intact Course Vital Signs 12/22/22 09:36 Temperature 97.6 F Pulse Rate 96 Respiratory 22 Rate Blood Pressure 109/57 O2 Sat by Pulse 98 Oximetry Medical Decision Making - Medical Decision Making Was pt. sent in by a medical professional or institution ([facility], [employer], urgent care, hospital, or care home...) When possible be specific @ -No Did you speak to anyone other than the patient for history (EMS, parent, family, police, friend...)? What history was obtained from this source @ -No Did you review nursing and triage notes (agree or disagree)? Why? @ -I reviewed and agree with nursing and triage notes Were old charts reviewed (outside hosp., previous admission, EMS record, old EKG, old radiological studies, urgent care reports/EKG's, care home records)? Report findings @ -No old charts were reviewed Differential Diagnosis (chest pain, altered mental status, abdominal pain women, abdominal pain men, vaginal bleeding, weakness, fever, dyspnea, syncope, headache, dizziness, GI bleed, back pain, seizure, CVA, palpatations, mental health, musculoskeletal)? @ -Differential Abdominal Pain Men: Appendicitis, cholecystitis, diverticulosis, ischemic bowel, pancreatitis, hepatitis, UTI, gastroenteritis, AAA, incarcerated hernia, bowel obstruction, constipation, inflammatory bowel, hepatitis, peptic ulcer disease, splenic infarction, perforated viscus, testicular torsion, this is not meant to be an all-inclusive list EKG interpreted by me (3pts min.). @ -As above X-rays interpreted by me (1pt min.). @ -None done CT interpreted by me (1pt min.). @ -None done U/S interpreted by me (1pt. min.). @ -None done What testing was considered but not performed or refused? (CT, X-rays, U/S, labs)? Why? @ -None What meds were considered but not given or refused? Why? @ -None Did you discuss the management of the patient with other professionals (professionals i.e. , PA, [employer], lab, RT, psych nurse, social media assistant, boating safety officer, teacher, district resource officer, caser up)? Give summary @[employer] Was smoking cessation discussed for >3mins.? @ -No Was critical care preformed (if so, how long)? @ -No Were there social determinants of health that impacted care today? How? (Homelessness, low income, unemployed, alcoholism, drug addiction, transportation, low edu. Level, literacy, decrease access to med. care, halfway, rehab)? @ -No Was there de-escalation of care discussed even if they declined (Discuss DNR or withdrawal of care, Hospice)? DNR status @ -No What co-morbidities impacted this encounter? (DM, HTN, Smoking, COPD, CAD, Cancer, CVA, ARF, Chemo, Hep., AIDS, mental health diagnosis, sleep apnea, morb id obesity)? @ -Liver cirrhosis, liver failure Was patient admitted / discharged? Hospital course, mention meds given and route, prescriptions, significant lab abnormalities, going to OR and other pertinent info. @ -[2-year-old male with abdominal ascites, patient will be admitted for paracentesis and possible care home placement. Undiagnosed new problem with uncertain prognosis? @ -No Drug Therapy requiring intensive monitoring for toxicity (Heparin, Nitro, Insulin, Cardizem)? @ -No Were any procedures done? @ -No Diagnosis/symptom? @ -Abdominal ascites Acute, or Chronic, or Acute on Chronic? @ -Chronic Uncomplicated (without systemic symptoms) or Complicated (systemic symptoms)? @ -default Side effects of treatment? @ -No Exacerbation, Progression, or Severe Exacerbation? @ -No Poses a threat to life or bodily function? How? (Chest pain, [place], [place], pneumonia, PE, COPD, DKA, ARF, appy, cholecystitis, CVA, Diverticulitis, Homicidal, Suicidal, threat to staff... and all critical care pts) @ -[Moderate risk at this time - Lab Data Result diagrams: 12/22/22 10:07 12/22/22 10:07 Lab Results 12/22/22 12/22/22 12/22/22 Range/Units 10:07 10:07 10:07 WBC 6.0 (3.8-10.6) k/uL RBC 2.82 L (4.30-5.90) m/uL Hgb 8.3 L (13.0-17.5) gm/dL Hct 25.6 L (39.0-53.0) % MCV 90.6 (80.0-100.0) fL MCH 29.4 (25.0-35.0) pg MCHC 32.5 (31.0-37.0) g/dL RDW 17.9 H (11.5-15.5) % Plt Count 135 L (150-450) k/uL MPV 8.4 Neutrophils % 61 % Lymphocytes % 22 % Monocytes % 11 % Eosinophils % 4 % Basophils % 0 % Neutrophils # 3.6 (1.3-7.7) k/uL Lymphocytes # 1.4 (1.0-4.8) k/uL Monocytes # 0.6 (0-1.0) k/uL Eosinophils # 0.2 (0-0.7) k/uL Basophils # 0.0 (0-0.2) k/uL Hypochromasia Slight Anisocytosis Slight PT (9.0-12.0) sec INR (<1.2) APTT (22.0-30.0) sec Sodium 133 L (137-145) mmol/L Potassium 4.1 (3.5-5.1) mmol/L Chloride 110 H (98-107) mmol/L Carbon Dioxide 16 L (22-30) mmol/L Anion Gap 7 mmol/L BUN 32 H (9-20) mg/dL Creatinine 0.70 (0.66-1.25) mg/dL Est GFR (CKD-EPI)AfAm >90 (>60 ml/min/1.73 sqM) Est GFR (CKD-EPI)NonAf >90 (>60 ml/min/1.73 sqM) Glucose 99 (74-99) mg/dL Calcium 8.5 (8.4-10.2) mg/dL Magnesium 1.9 (1.6-2.3) mg/dL Total Bilirubin 1.8 H (0.2-1.3) mg/dL AST 39 (17-59) U/L ALT 32 (4-49) U/L Alkaline Phosphatase 64 (38-126) U/L Total Protein 6.7 (6.3-8.2) g/dL Albumin 2.9 L (3.5-5.0) g/dL Lipase 160 (23-300) U/L Urine Color Yellow Urine Appearance Clear (Clear) Urine pH 6.0 (5.0-8.0) Ur Specific [place] 1.024 (1.001-1.035) Urine Protein Trace H (Negative) Urine Glucose (UA) Negative (Negative) Urine Ketones Negative (Negative) Urine Blood Negative (Negative) Urine Nitrite Negative (Negative) Urine Bilirubin Negative (Negative) Urine Urobilinogen <2.0 (<2.0) mg/dL Ur Leukocyte Esterase Negative (Negative) 12/22/22 Range/Units 10:08 WBC (3.8-10.6) k/uL RBC (4.30-5.90) m/uL Hgb (13.0-17.5) gm/dL Hct (39.0-53.0) % MCV (80.0-100.0) fL MCH (25.0-35.0) pg MCHC (31.0-37.0) g/dL RDW (11.5-15.5) % Plt Count (150-450) k/uL MPV Neutrophils % % Lymphocytes % % Monocytes % % Eosinophils % % Basophils % % Neutrophils # (1.3-7.7) k/uL Lymphocytes # (1.0-4.8) k/uL Monocytes # (0-1.0) k/uL Eosinophils # (0-0.7) k/uL Basophils # (0-0.2) k/uL Hypochromasia Anisocytosis PT 13.8 H (9.0-12.0) sec INR 1.4 H (<1.2) APTT 25.0 (22.0-30.0) sec Sodium (137-145) mmol/L Potassium (3.5-5.1) mmol/L Chloride (98-107) mmol/L Carbon Dioxide (22-30) mmol/L Anion Gap mmol/L BUN (9-20) mg/dL Creatinine (0.66-1.25) mg/dL Est GFR (CKD-EPI)AfAm (>60 ml/min/1.73 sqM) Est GFR (CKD-EPI)NonAf (>60 ml/min/1.73 sqM) Glucose (74-99) mg/dL Calcium (8.4-10.2) mg/dL Magnesium (1.6-2.3) mg/dL Total Bilirubin (0.2-1.3) mg/dL AST (17-59) U/L ALT (4-49) U/L Alkaline Phosphatase (38-126) U/L Total Protein (6.3-8.2) g/dL Albumin (3.5-5.0) g/dL Lipase (23-300) U/L Urine Color Urine Appearance (Clear) Urine pH (5.0-8.0) Ur Specific [place] (1.001-1.035) Urine Protein (Negative) Urine Glucose (UA) (Negative) Urine Ketones (Negative) Urine Blood (Negative) Urine Nitrite (Negative) Urine Bilirubin (Negative) Urine Urobilinogen (<2.0) mg/dL Ur Leukocyte Esterase (Negative) Disposition Clinical Impression: Ascites, Alcoholic liver disease, Abdominal pain Disposition: ADMITTED IP TO THIS HOSP Condition: Stable Is patient prescribed a controlled substance at d/c from ED?: No Referrals: [facility],Clinic [Primary Care Provider] - 1-2 days Time of Disposition: 11:01
[2022-12-22 10:26] LABS: Anisocytosis Slight; Basophils % (A) 0 %; Eosinophils # (A) 0.2 k/uL (0-0.7); Eosinophils % (A) 4 %; HCT 25.6 % (39.0-53.0); HGB 8.3 gm/dL (13.0-17.5); Hypochromasia Slight; Lymphocytes # (A) 1.4 k/uL (1.0-4.8); Lymphocytes % (A) 22 %; MCH 29.4 pg (25.0-35.0); MCHC 32.5 g/dL (31.0-37.0); MCV 90.6 fL (80.0-100.0); Mean Platelet Volume 8.4; Monocytes # (A) 0.6 k/uL (0-1.0); Monocytes % (A) 11 %; Neutrophils # (A) 3.6 k/uL (1.3-7.7); Neutrophils % (A) 61 %; Platelet Count 135 k/uL (150-450); RBC 2.82 m/uL (4.30-5.90); RDW 17.9 % (11.5-15.5)
[2022-12-22 10:30] LABS: Appearance,Urine Clear (Clear); Bilirubin,Urine Negative (Negative); Blood,Urine Negative (Negative); Color,Urine Yellow; Glucose,Urine (UA) Negative (Negative); Ketones,Urine Negative (Negative); Leukocyte Esterase,Urine Negative (Negative); Nitrite,Urine Negative (Negative); Protein,Urine Trace (Negative); Specific Gravity,Urine 1.024 (1.001-1.035); Urobilinogen,Urine <2.0 mg/dL (<2.0)
[2022-12-22 10:35] LABS: INR 1.4 (<1.2); Prothrombin Time 13.8 sec (9.0-12.0)
[2022-12-22 10:36] LABS: ALT 32 U/L (4-49); AST 39 U/L (17-59); African American GFR (CKD) >90 (>60 ml/min/1.73 sqM); Albumin 2.9 g/dL (3.5-5.0); Alkaline Phosphatase 64 U/L (38-126); Anion Gap 7 mmol/L; Blood Urea Nitrogen 32 mg/dL (9-20); Calcium 8.5 mg/dL (8.4-10.2); Carbon Dioxide 16 mmol/L (22-30); Chloride 110 mmol/L (98-107); Glucose 99 mg/dL (74-99); Lipase 160 U/L (23-300); Magnesium 1.9 mg/dL (1.6-2.3); Non-African American GFR(CKD) >90 (>60 ml/min/1.73 sqM); Potassium 4.1 mmol/L (3.5-5.1); Sodium 133 mmol/L (137-145); Total Bilirubin 1.8 mg/dL (0.2-1.3); Total Protein 6.7 g/dL (6.3-8.2)
[2022-12-22] MEDS ORDERED: NALOXONE 0.4 MG/ML 1 ML VIAL IV PRN (10:57)
[2022-12-22] MEDS: HYDROmorphone 0.5 MG/0.5 ML SYRINGE IVP PRN ×2 (11:18→14:20)
--- NOTE | 2022-12-22 13:30 | P.HPIM ---
History of Present Illness H&P Date: 12/22/22 History of Presenting Illness: Patient is a pleasant 42-year-old male with a past medical history of alcohol abuse disorder and alcoholic liver cirrhosis. He is very well-known to our services and mostly recently discharged on 12/11/22. Patient reports he is unable to follow up outpatient secondary to transportation. He presented to the emergency department secondary to need for paracentesis. Patient reports having extensive diffuse abdominal pain with severe abdominal swelling/distention. He reports that he was recently approved for [facility] care by the [place] system and his last paracentesis was 12/11/22 with a removed approximately 15.4 L upon review of documentation in chart. Patient reports he is here to get [facility] placement and to have paracentesis completed. He denies any other complaints including headache, lightheadedness, dizziness, chest pain, p alpitations, shortness of breath, nausea, vomiting, or experiencing any numbness/tingling/weakness/swelling in his extremities. He underwent full evaluation in the emergency department. Labs completed and reviewed. CBC consistent with bicytopenia with hemoglobin of 8.3 and platelet count of 135. Coagulation profile revealing elevated PT of 13.8 and INR 1.4. BMP revealing hyperchloremic metabolic acidosis with chloride of 110 and sodium of 133, Bicarb low at 16 and anion gap of 7. Liver profile showing elevated total bili of 1.8 and albumin of 2.9. Urinalysis positive for protein negative for infection. Discussed patient thoroughly with the ED physician. Patient to be admitted to our services to observation unit and consult placed to interventional radiology for paracentesis. Review of systems: Pertinent positives and negatives as discussed in HPI, a complete review of systems was performed and all other systems are negative. Physical exam: Vital signs reviewed and stable. General: Chronically ill-appearing, emaciated his extremities with large distended cirrhotic abdomen Derm: Skin warm and dry, jaundiced Head: Atraumatic, normocephalic and symmetric.Scleral icterus Mouth: no lip lesions, mucus membranes moist Cardiovascular: regular rate and rhythm with normal S1S2, systolic murmur, positive posterior tibial pulses bilaterally, and cap refill < 2 seconds. Lungs: Respirations even, regular, and unlabored on room air. Lungs CTA bilaterally, no rhonchi, no rales, no wheezing, and no accessory muscle usage. Abdominal: Severely distended cirrhotic abdomen with diffuse tenderness, no guarding, no appreciable organomegaly Ext: ROM intact. No gross muscle atrophy, no edema, no contractures Neuro: Speech clear, face symmetrical and CN II-XII grossly intact with no noted focal neuro deficits Psych: Alert and oriented to person, place, time, and situation. Appropriate and pleasant affect. Assessment and Plan of Care: Decompensated alcohol liver cirrhosis Hyperchloremic Metabolic acidosis, secondary to above Hyperchloremic hyponatremia secondary to extensive ascites Hyperbilirubinemia secondary to above Prerenal azotemia Bicytopenia secondary -Labs completed and reviewed. CBC consistent with bicytopenia with hemoglobin of 8.3 and platelet count of 135. Coagulation profile revealing elevated PT of 13.8 and INR 1.4. BMP revealing hyperchloremic metabolic acidosis with chloride of 110 and sodium of 133, Bicarb low at 16 and anion gap of 7. Liver profile showing elevated total bili of 1.8 and albumin of 2.9. -Urinalysis positive for protein negative for infection. -Discussed patient thoroughly with the ED physician. Patient to be admitted to our services to observation unit with telemetry. -Consult placed to interventional radiology for paracentesis. -Consult placed to case management for assistance with placement. -Patient to continue with midodrine 10 mg 3 times daily, hydrocortisone 20 mg daily and 10 mg nightly, and Lasix 40 mg daily. -Patient placed on GI prophylaxis with Protonix 40 mg twice daily. CODE STATUS: Full code DVT prophylaxis: SCDs Discussed with: patient, RN, in ED physician Anticipated discharge date: clinical course to determine Anticipated discharge place: patient requesting custodial facility Patient was seen independently by Nurse Practitioner. This document was prepared using [employer] dictation software. Please allow for errors in casing machine operator while rare they do occur. Pako Mendoza NP rendered care for this patient independently, reviewed the findings and plan as documented in the note above. I did not physically speak with or examine the patient on this date. Past Medical History Past Medical History: Hyperlipidemia, Hypertension, Liver Disease, Pneumonia Additional Past Medical History / Comment(s): Alcoholism, past withdrawals with tremors/diaphoresis, elevated LFTs, alcoholic liver cirrhosis, ascities with paracentesis, severe sepsis/aspiration pneumonia, occasional upper back pain. History of Any Multi-Drug Resistant Organisms: None Reported Past Surgical History: No Surgical Hx Reported Additional Past Surgical History / Comment(s): Pt states he has never had surgery Past Anesthesia/Blood Transfusion Reactions: Unable to Obtain Additional Past Anesthesia/Blood Transfusion Reaction / Comment(s): Pt states he has never had surgery. Past Psychological History: Depression, PTSD Smoking Status: Current every day smoker Past Alcohol Use History: None Reported, Abuse Past Drug Use History: None Reported - Past Family History Mother Family Medical History: Cancer Additional Family Medical History / Comment(s): Mother has colon cancer. Father History Unknown: Yes Additional Family Medical History / Comment(s): All pt knows about his father is that he is . Medications and Allergies Home Medications Medication Instructions Recorded Confirmed Type Pantoprazole [Protonix] 40 mg PO AC-BID #60 tab 11/29/22 12/22/22 Rx Furosemide [Lasix] 40 mg PO DAILY #30 tablet 11/30/22 12/22/22 Rx Ondansetron Odt [Zofran ODT] 4 mg PO Q8HR PRN #30 tab 11/30/22 12/22/22 Rx Hydrocortisone [Cortef] 10 mg PO HS #30 tab 12/13/22 12/22/22 Rx Hydrocortisone [Cortef] 20 mg PO DAILY #30 tab 12/13/22 12/22/22 Rx HYDROcodone/APAP 10-325MG [[place] 1 tab PO Q4HR PRN #10 tab 12/26/22 Rx 10-325] Midodrine [ProAmatine] 10 mg PO AC-TID #90 tab 12/26/22 Rx Allergies Allergy/AdvReac Type Severity Reaction Status Date / Time ibuprofen [From Motrin] Allergy Swelling Verified 12/22/22 11:52 Lips naproxen Allergy Swelling Verified 12/22/22 11:52 Lips Physical Exam Vitals: Vital Signs Temp Pulse Resp BP Pulse Ox 12/22/22 12:00 83 18 115/87 98 12/22/22 11:00 85 20 108/66 99 12/22/22 10:00 105 H 20 118/75 99 12/22/22 09:36 97.6 F 96 22 109/57 98 Intake and Output 12/21/22 12/22/22 12/22/22 22:59 06:59 14:59 Other: Weight 90.718 kg Results CBC & Chem 7: 12/25/22 05:36 12/25/22 05:36 Labs: Abnormal Lab Results - Last 24 Hours (Table) 12/22/22 12/22/22 12/22/22 Range/Units 10:07 10:07 10:07 RBC 2.82 L (4.30-5.90) m/uL Hgb 8.3 L (13.0-17.5) gm/dL Hct 25.6 L (39.0-53.0) % RDW 17.9 H (11.5-15.5) % Plt Count 135 L (150-450) k/uL PT (9.0-12.0) sec INR (<1.2) Sodium 133 L (137-145) mmol/L Chloride 110 H (98-107) mmol/L Carbon Dioxide 16 L (22-30) mmol/L BUN 32 H (9-20) mg/dL Total Bilirubin 1.8 H (0.2-1.3) mg/dL Albumin 2.9 L (3.5-5.0) g/dL Urine Protein Trace H (Negative) 12/22/22 Range/Units 10:08 RBC (4.30-5.90) m/uL Hgb (13.0-17.5) gm/dL Hct (39.0-53.0) % RDW (11.5-15.5) % Plt Count (150-450) k/uL PT 13.8 H (9.0-12.0) sec INR 1.4 H (<1.2) Sodium (137-145) mmol/L Chloride (98-107) mmol/L Carbon Dioxide (22-30) mmol/L BUN (9-20) mg/dL Total Bilirubin (0.2-1.3) mg/dL Albumin (3.5-5.0) g/dL Urine Protein (Negative)
[2022-12-22] MEDS: HYDROCORTISONE 20 MG TAB PO SCH (14:20)
[2022-12-22] MEDS: FUROSEMIDE 40 MG TAB PO SCH (14:20)
[2022-12-22] MEDS: ALBUMIN HUMAN 25% 50 ML in EMPTY BAG 1 BAG IVPB SCH ×5 (15:00→16:56)
[2022-12-22] MEDS: MIDODRINE 5 MG TAB PO SCH (16:12)
[2022-12-22] MEDS ORDERED: ALBUMIN HUMAN 25% 50 ML in EMPTY BAG 1 BAG IVPB SCH (17:15)
[2022-12-22] MEDS: PANTOPRAZOLE 40 MG TABLET PO SCH (17:47)
[2022-12-22] MEDS: HYDROmorphone 1 MG/ML 1 ML SYRINGE IVP PRN ×2 (17:47→21:21)
[2022-12-22] MEDS: HYDROCORTISONE 10 MG TAB PO SCH (21:08)
[2022-12-23] MEDS: HYDROmorphone 1 MG/ML 1 ML SYRINGE IVP PRN ×3 (02:30→21:16)
[2022-12-23] MEDS: PANTOPRAZOLE 40 MG TABLET PO SCH ×2 (06:20→17:55)
[2022-12-23] MEDS: MIDODRINE 5 MG TAB PO SCH ×3 (06:20→17:55)
--- NOTE | 2022-12-23 08:33 | US ---
Ultrasound-guided paracentesis. DATE OF EXAM: 12/22/2022 CLINICAL HISTORY: Ascites The procedure was discussed with the patient. The risks, complications, benefits, and alternatives we re discussed and any questions were answered. Informed consent was obtained. The patient was placed s upine on the ultrasound table and prepped and draped in the usual sterile fashion. All elements of maximal barrier technique were utilized. Under ultrasound guidance, access into the right lower quadrant was obtained, via the paracentesis catheter system and direct ultrasound guidanc e. Approximately 20 liters of straw-colored fluid was removed. The patient was stable throughout the pro cedure and remained stable upon discharge from Department of Radiology. IMPRESSION: Successful paracentesis under ultrasound guidance.
[2022-12-23] MEDS: HYDROcodone/APAP 10-325MG 1 EACH TAB PO PRN ×2 (08:38→17:55)
[2022-12-23] MEDS: HYDROCORTISONE 20 MG TAB PO SCH (08:39)
[2022-12-23] MEDS: FUROSEMIDE 40 MG TAB PO SCH (08:39)
--- NOTE | 2022-12-23 14:02 | P.PN ---
Subjective Progress Note Date: 12/23/22 History of Presenting Illness: Patient is a pleasant 42-year-old male with a past medical history of alcohol abuse disorder and alcoholic liver cirrhosis. He is very well-known to our services and mostly recently discharged on 12/11/22. Patient reports he is unable to follow up outpatient secondary to transportation. He presented to the emergency department secondary to need for paracentesis. Patient reports having extensive diffuse abdominal pain with severe abdominal swelling/distention. He reports that he was recently approved for [facility] care by the [place] system and his last paracentesis was 12/11/22 with a removed approximately 15.4 L upon review of documentation in chart. Patient reports he is here to get [facility] placement and to have paracentesis completed. He underwent full evaluation in the emergency department. Labs completed and reviewed. CBC consistent with bicytopenia with hemoglobin of 8.3 and platelet count of 135. Coagulation profile revealing elevated PT of 13.8 and INR 1.4. BMP revealing hyperchloremic metabolic acidosis with chloride of 110 and sodium of 133, Bicarb low at 16 and anion gap of 7. Liver profile showing elevated total bili of 1.8 and albumin of 2.9. Urinalysis positive for protein negative for infection. Discussed patient thoroughly with the ED physician. Patient was admitted to our services to observation unit and consult placed to interventional radiology for paracentesis. On 12/14/22 patient underwent paracentesis with removal of 23 L of fluid. Patient received albumin 25% 4 bags. Physical exam: Pt seen and fully evaluated at bedside. Patient reports generalized abdominal pain status post paracentesis yesterday. Currently he denies having any nausea, vomiting, or any other complaints at this time. Patient discussed with case management requesting placement at [facility]. Case management has started approval with [place] Vital signs reviewed and stable. General: Chronically ill-appearing, emaciated his extremities with large distended cirrhotic abdomen Derm: Skin warm and dry, jaundiced Head: Atraumatic, normocephalic and symmetric.Scleral icterus Mouth: no lip lesions, mucus membranes moist Cardiovascular: regular rate and rhythm with normal S1S2, systolic murmur, positive posterior tibial pulses bilaterally, and cap refill < 2 seconds. Lungs: Respirations even, regular, and unlabored on room air. Lungs CTA bilaterally, no rhonchi, no rales, no wheezing, and no accessory muscle usage. Abdominal: Soft distended cirrhotic abdomen with diffuse tenderness, no guarding, no appreciable organomegaly Ext: ROM intact. No gross muscle atrophy, no edema, no contractures Neuro: Speech clear, face symmetrical and CN II-XII grossly intact with no noted focal neuro deficits Psych: Alert and oriented to person, place, time, and situation. Appropriate and pleasant affect. Assessment and Plan of Care: Decompensated alcohol liver cirrhosis Hyperchloremic Metabolic acidosis, secondary to above Hyperchloremic hyponatremia secondary to extensive ascites Hyperbilirubinemia secondary to above Prerenal azotemia Bicytopenia secondary -Patient is status post paracentesis, large volume paracentesis with removal of 23 L of fluid on 12/22/22 -Status post albumin 25% IVPB 4 bags -Continue Lasix 40 mg daily, hydrocortisone 20 mg daily and 10 mg nightly, and midodrine 10 mg 3 times daily, -Case management following and sent for approval from [place] for placement at [facility]. -Continue GI prophylaxis with Protonix 40 mg twice daily. CODE STATUS: Full code DVT prophylaxis: SCDs Discussed with: Patient and RN Anticipated discharge date: clinical course to determine Anticipated discharge place: patient requesting [facility] Patient was seen independently by Nurse Practitioner. This document was prepared using [employer] dictation software. Please allow for errors in panel assembler while rare they do occur. Pako Mendoza NP rendered care for this patient independently, reviewed the findings and plan as documented in the note above. I did not physically speak with or examine the patient on this date. Objective - Vital Signs Vital signs: Vital Signs Temp 98.4 F 12/23/22 08:22 Pulse 87 12/23/22 08:22 Resp 16 12/23/22 08:22 BP 101/59 12/23/22 08:22 Pulse Ox 99 12/23/22 08:22 FiO2 Intake & Output 12/22/22 12/23/22 12/23/22 18:59 06:59 18:59 Output Total 250 Balance -250 Weight 90.718 kg 90.718 kg Output: Urine 250 Other: Voiding Method Toilet Urinal # Voids 1 # Bowel Movements 1 - Labs CBC & Chem 7: 12/22/22 10:07 12/22/22 10:07 Labs: Abnormal Lab Results - Last 24 Hours (Table) 12/22/22 12/22/22 12/22/22 Range/Units 10:07 10:07 10:07 RBC 2.82 L (4.30-5.90) m/uL Hgb 8.3 L (13.0-17.5) gm/dL Hct 25.6 L (39.0-53.0) % RDW 17.9 H (11.5-15.5) % Plt Count 135 L (150-450) k/uL PT (9.0-12.0) sec INR (<1.2) Sodium 133 L (137-145) mmol/L Chloride 110 H (98-107) mmol/L Carbon Dioxide 16 L (22-30) mmol/L BUN 32 H (9-20) mg/dL Total Bilirubin 1.8 H (0.2-1.3) mg/dL Albumin 2.9 L (3.5-5.0) g/dL Urine Protein Trace H (Negative) 12/22/22 Range/Units 10:08 RBC (4.30-5.90) m/uL Hgb (13.0-17.5) gm/dL Hct (39.0-53.0) % RDW (11.5-15.5) % Plt Count (150-450) k/uL PT 13.8 H (9.0-12.0) sec INR 1.4 H (<1.2) Sodium (137-145) mmol/L Chloride (98-107) mmol/L Carbon Dioxide (22-30) mmol/L BUN (9-20) mg/dL Total Bilirubin (0.2-1.3) mg/dL Albumin (3.5-5.0) g/dL Urine Protein (Negative)
[2022-12-23] MEDS: HYDROCORTISONE 10 MG TAB PO SCH (21:14)
[2022-12-24] MEDS: HYDROcodone/APAP 10-325MG 1 EACH TAB PO PRN ×4 (00:52→21:04)
[2022-12-24] MEDS: PANTOPRAZOLE 40 MG TABLET PO SCH ×2 (06:21→17:07)
[2022-12-24] MEDS: MIDODRINE 5 MG TAB PO SCH ×3 (06:21→17:07)
[2022-12-24] MEDS: FUROSEMIDE 40 MG TAB PO SCH (09:25)
[2022-12-24] MEDS: HYDROCORTISONE 20 MG TAB PO SCH (09:26)
[2022-12-24 12:48] LABS: HCT 24.1 % (39.6-50.0); HGB 7.7 d/dL (13.0-17.0); MCV 87.6 FL (80.0-97.0); NRBC Per 100 WBC 0 X 10*3/uL (0.00-0.01); Platelet Count 120 X 10*3/uL (140-440); RBC 2.75 X 10*6/uL (4.40-5.60); RDW 18.4 % (11.5-14.5); WBC 7.45 X 10*3/uL (4.50-10.00)
[2022-12-24 12:49] LABS: ALT 28 U/L (10-49); AST 24 U/L (14-35); Albumin 3.1 d/dL (3.8-4.9); Albumin/Globulin Ratio 1.19 Ratio (1.60-3.17); Alkaline Phosphatase 62 U/L (41-126); BUN/Creat Ratio 25.18 Ratio (12.00-20.00); Blood Urea Nitrogen 27.7 mg/dL (9.0-27.0); Calcium 8.4 mg/dL (8.7-10.3); Carbon Dioxide 21.4 mmol/L (21.6-31.8); Chloride 105 mmol/L (96-109); Globulin 2.6 d/dL (1.6-3.3); Glucose 95 mg/dL (70-110); Magnesium 1.9 mg/dL (1.5-2.4); Potassium 4.5 mmol/L (3.5-5.5); Sodium 134 mmol/L (135-145); Total Bilirubin 0.8 mg/dL (0.3-1.2); Total Protein 5.7 d/dL (6.2-8.2)
--- NOTE | 2022-12-24 15:17 | P.PN ---
Subjective Progress Note Date: 12/24/22 Hospital Course: Patient is a pleasant 42-year-old male with a past medical history of alcohol abuse disorder and alcoholic liver cirrhosis. He is very well-known to our services and mostly recently discharged on 12/11/22. Patient reports he is unable to follow up outpatient secondary to transportation. He presented to the emergency department secondary to need for paracentesis. Patient reports having extensive diffuse abdominal pain with severe abdominal swelling/distention. He reports that he was recently approved for skilled nursing care by the [place] system and his last paracentesis was 12/11/22 with a removed approximately 15.4 L upon review of documentation in chart. Patient reports he is here to get skilled nursing placement and to have paracentesis completed. He underwent full evaluation in the emergency department. Labs completed and reviewed. CBC consistent with bicytopenia with hemoglobin of 8.3 and platelet count of 135. Coagulation profile revealing elevated PT of 13.8 and INR 1.4. BMP revealing hyperchloremic metabolic acidosis with chloride of 110 and sodium of 133, Bicarb low at 16 and anion gap of 7. Liver profile showing elevated total bili of 1.8 and albumin of 2.9. Urinalysis positive for protein negative for infection. Discussed patient thoroughly with the ED physician. Patient was admitted to our services to observation unit and consult placed to interventional radiology for paracentesis. On 12/14/22 patient underwent paracentesis with removal of 23 L of fluid. Patient received albumin 25% 4 bags. Subjective: Patient seen and examined at bedside. No acute events overnight. Pertinent positives and negatives as discussed above, a complete review of systems was performed and all other systems are negative. Vitals Signs Reviewed. General: Chronically ill-appearing, emaciated his extremities with large distended cirrhotic abdomen Derm: Skin warm and dry, jaundiced Head: Atraumatic, normocephalic and symmetric.Scleral icterus Mouth: no lip lesions, mucus membranes moist Cardiovascular: regular rate and rhythm with normal S1S2, systolic murmur, positive posterior tibial pulses bilaterally, and cap refill < 2 seconds. Lungs: Respirations even, regular, and unlabored on room air. Lungs CTA bilaterally, no rhonchi, no rales, no wheezing, and no accessory muscle usage. Abdominal: Soft distended cirrhotic abdomen with diffuse tenderness, no guarding, no appreciable organomegaly Ext: ROM intact. No gross muscle atrophy, no edema, no contractures Neuro: Speech clear, face symmetrical and CN II-XII grossly intact with no noted focal neuro deficits Psych: Alert and oriented to person, place, time, and situation. Appropriate and pleasant affect. Data Reviewed Today: Pertinent Labs: Hemoglobin 7.7, platelet 120, sodium 134,, magnesium 1.9 Imaging: No new imaging Assessment and Plan: Decompensated alcohol liver cirrhosis Hyperchloremic Metabolic acidosis, secondary to above, improving Hyperchloremic hyponatremia secondary to extensive ascites, improvement Hyperbilirubinemia secondary to above Prerenal azotemia Bicytopenia secondary to liver cirrhosis -Patient is status post paracentesis, large volume paracentesis with removal of 23 L of fluid on 12/22/22 -Status post albumin 25% IVPB 4 bags -Continue Lasix 40 mg daily, hydrocortisone 20 mg daily and 10 mg nightly, and midodrine 10 mg 3 times daily, -Case management following and sent for approval from [place] for placement at [facility]. -Continue GI prophylaxis with Protonix 40 mg twice daily. DVT ppx: SCDs Code status: Full code Anticipated discharge place: Rehab Anticipated discharge time: Pending bed availability Objective - Vital Signs Vital signs: Vital Signs Temp 98.3 F 12/24/22 08:00 Pulse 82 12/24/22 08:00 Resp 17 12/24/22 08:00 BP 105/61 12/24/22 08:00 Pulse Ox 97 12/24/22 08:00 FiO2 Intake & Output 12/23/22 12/24/22 12/24/22 18:59 06:59 18:59 Intake Total 354 Output Total 550 Balance 354 -550 Intake: Oral 354 Output: Urine 550 Other: Voiding Method Toilet Toilet Urinal Urinal # Voids 4 - Labs CBC & Chem 7: 12/24/22 05:58 12/24/22 05:58 Labs: Abnormal Lab Results - Last 24 Hours (Table) 12/24/22 12/24/22 Range/Units 05:58 05:58 RBC 2.75 L (4.40-5.60) X 10*6/uL Hgb 7.7 L (13.0-17.0) d/dL Hct 24.1 L (39.6-50.0) % RDW 18.4 H (11.5-14.5) % Plt Count 120 L (140-440) X 10*3/uL Sodium 134 L (135-145) mmol/L Carbon Dioxide 21.4 L (21.6-31.8) mmol/L BUN 27.7 H (9.0-27.0) mg/dL BUN/Creatinine Ratio 25.18 H (12.00-20.00) Ratio Calcium 8.4 L (8.7-10.3) mg/dL Total Protein 5.7 L (6.2-8.2) d/dL Albumin 3.1 L (3.8-4.9) d/dL Albumin/Globulin Ratio 1.19 L (1.60-3.17) Ratio
[2022-12-24] MEDS: HYDROCORTISONE 10 MG TAB PO SCH (21:00)
[2022-12-25 06:11] LABS: Anisocytosis Slight; Basophils % (A) 0 %; Eosinophils # (A) 0.2 k/uL (0-0.7); Eosinophils % (A) 2 %; HGB 8.5 gm/dL (13.0-17.5); Hypochromasia Moderate; Lymphocytes # (A) 1.6 k/uL (1.0-4.8); Lymphocytes % (A) 21 %; MCH 28.6 pg (25.0-35.0); MCHC 31.5 g/dL (31.0-37.0); MCV 90.7 fL (80.0-100.0); Mean Platelet Volume 8.5; Monocytes # (A) 0.8 k/uL (0-1.0); Monocytes % (A) 10 %; Neutrophils # (A) 4.7 k/uL (1.3-7.7); Neutrophils % (A) 63 %; Platelet Count 146 k/uL (150-450); RBC 2.98 m/uL (4.30-5.90); RDW 17.7 % (11.5-15.5); WBC 7.4 k/uL (3.8-10.6)
[2022-12-25] MEDS: PANTOPRAZOLE 40 MG TABLET PO SCH ×2 (06:33→16:43)
[2022-12-25] MEDS: HYDROcodone/APAP 10-325MG 1 EACH TAB PO PRN ×3 (06:33→20:53)
[2022-12-25] MEDS: MIDODRINE 5 MG TAB PO SCH ×3 (06:33→16:43)
[2022-12-25 07:03] LABS: ALT 27 U/L (4-49); AST 29 U/L (17-59); African American GFR (CKD) >90 (>60 ml/min/1.73 sqM); Albumin 2.9 g/dL (3.5-5.0); Albumin/Globulin Ratio 0.8; Alkaline Phosphatase 77 U/L (38-126); Anion Gap 8 mmol/L; Blood Urea Nitrogen 30 mg/dL (9-20); Calcium 8.2 mg/dL (8.4-10.2); Carbon Dioxide 20 mmol/L (22-30); Chloride 106 mmol/L (98-107); Globulin 3.6 g/dL; Glucose 76 mg/dL (74-99); Non-African American GFR(CKD) >90 (>60 ml/min/1.73 sqM); Potassium 4.2 mmol/L (3.5-5.1); Sodium 134 mmol/L (137-145); Total Bilirubin 0.9 mg/dL (0.2-1.3); Total Protein 6.5 g/dL (6.3-8.2)
[2022-12-25] MEDS: HYDROCORTISONE 20 MG TAB PO SCH (08:18)
[2022-12-25] MEDS: FUROSEMIDE 40 MG TAB PO SCH (08:18)
--- NOTE | 2022-12-25 14:05 | P.PN ---
Subjective Progress Note Date: 12/25/22 Hospital Course: Patient is a pleasant 42-year-old male with a past medical history of alcohol abuse disorder and alcoholic liver cirrhosis. He is very well-known to our services and mostly recently discharged on 12/11/22. Patient reports he is unable to follow up outpatient secondary to transportation. He presented to the emergency department secondary to need for paracentesis. Patient reports having extensive diffuse abdominal pain with severe abdominal swelling/distention. He reports that he was recently approved for [facility] care by the [place] system and his last paracentesis was 12/11/22 with a removed approximately 15.4 L upon review of documentation in chart. Patient reports he is here to get snf placement and to have paracentesis completed. He underwent full evaluation in the emergency department. Labs completed and reviewed. CBC consistent with bicytopenia with hemoglobin of 8.3 and platelet count of 135. Coagulation profile revealing elevated PT of 13.8 and INR 1.4. BMP revealing hyperchloremic metabolic acidosis with chloride of 110 and sodium of 133, Bicarb low at 16 and anion gap of 7. Liver profile showing elevated total bili of 1.8 and albumin of 2.9. Urinalysis positive for protein negative for infection. Discussed patient thoroughly with the ED physician. Patient was admitted to our services to observation unit and consult placed to interventional radiology for paracentesis. On 12/14/22 patient underwent paracentesis with removal of 23 L of fluid. Patient received albumin 25% 4 bags. Subjective: Patient seen and examined at bedside. No acute events overnight. Pertinent positives and negatives as discussed above, a complete review of systems was performed and all other systems are negative. Vitals Signs Reviewed. General: Chronically ill-appearing, emaciated his extremities with large distended cirrhotic abdomen Derm: Skin warm and dry, jaundiced Head: Atraumatic, normocephalic and symmetric.Scleral icterus Mouth: no lip lesions, mucus membranes moist Cardiovascular: regular rate and rhythm with normal S1S2, systolic murmur, positive posterior tibial pulses bilaterally, and cap refill < 2 seconds. Lungs: Respirations even, regular, and unlabored on room air. Lungs CTA bilaterally, no rhonchi, no rales, no wheezing, and no accessory muscle usage. Abdominal: Soft distended cirrhotic abdomen with diffuse tenderness, no guarding, no appreciable organomegaly Ext: ROM intact. No gross muscle atrophy, no edema, no contractures Neuro: Speech clear, face symmetrical and CN II-XII grossly intact with no noted focal neuro deficits Psych: Alert and oriented to person, place, time, and situation. Appropriate and pleasant affect. Data Reviewed Today: Pertinent Labs: Hemoglobin 8.5, platelet 146, sodium 134, creatinine 0.85 Imaging: No new imaging Assessment and Plan: Decompensated alcohol liver cirrhosis Hyperchloremic Metabolic acidosis, secondary to above, improving Hyperchloremic hyponatremia secondary to extensive ascites, improvement Hyperbilirubinemia secondary to above Prerenal azotemia Bicytopenia secondary to liver cirrhosis -Patient is status post paracentesis, large volume paracentesis with removal of 23 L of fluid on 12/22/22 -Status post albumin 25% IVPB 4 bags -Continue Lasix 40 mg daily, hydrocortisone 20 mg daily and 10 mg nightly, and midodrine 10 mg 3 times daily, -Case management following and sent for approval from [place] for placement at [facility]. -Continue GI prophylaxis with Protonix 40 mg twice daily. DVT ppx: SCDs Code status: Full code Anticipated discharge place: Rehab Anticipated discharge time: Pending bed availability Objective - Vital Signs Vital signs: Vital Signs Temp 98 F 12/25/22 13:58 Pulse 83 12/25/22 13:58 Resp 18 12/25/22 13:58 BP 109/64 12/25/22 13:58 Pulse Ox 97 12/25/22 13:58 FiO2 Intake & Output 12/24/22 12/25/22 12/25/22 18:59 06:59 18:59 Intake Total 240 Output Total 350 300 Balance -350 -60 Intake: Oral 240 Output: Urine 350 300 Other: Voiding Method Toilet Toilet Urinal Urinal # Voids 2 2 0 - Labs CBC & Chem 7: 12/25/22 05:36 12/25/22 05:36 Labs: Abnormal Lab Results - Last 24 Hours (Table) 12/25/22 12/25/22 Range/Units 05:36 05:36 RBC 2.98 L (4.30-5.90) m/uL Hgb 8.5 L (13.0-17.5) gm/dL Hct 27.0 L (39.0-53.0) % RDW 17.7 H (11.5-15.5) % Plt Count 146 L (150-450) k/uL Sodium 134 L (137-145) mmol/L Carbon Dioxide 20 L (22-30) mmol/L BUN 30 H (9-20) mg/dL Calcium 8.2 L (8.4-10.2) mg/dL Albumin 2.9 L (3.5-5.0) g/dL
[2022-12-25] MEDS: HYDROCORTISONE 10 MG TAB PO SCH (20:36)
[2022-12-26 02:23] VITALS: RESP 16
[2022-12-26] MEDS: MIDODRINE 5 MG TAB PO SCH ×2 (06:05→12:35)
[2022-12-26] MEDS: PANTOPRAZOLE 40 MG TABLET PO SCH (06:05)
[2022-12-26] MEDS: HYDROcodone/APAP 10-325MG 1 EACH TAB PO PRN ×2 (06:22→10:42)
[2022-12-26] MEDS: FUROSEMIDE 40 MG TAB PO SCH (09:24)
[2022-12-26] MEDS: HYDROCORTISONE 20 MG TAB PO SCH (09:24)
[2022-12-26 09:47] VITALS: BP 115/66; PULSE 84; TEMP 98.3
--- NOTE | 2022-12-26 12:51 | P.DS ---
Providers Date of admission: 12/22/22 10:58 Expected date of discharge: 12/26/22 Attending physician: Nichole Joseph DO Primary care physician: [facility] Hospital Course: Discharge Diagnosis: Decompensated alcohol liver cirrhosis Non-anion gap Metabolic acidosis Hypervolemic hyponatremia Hyperbilirubinemia secondary to above Prerenal azotemia Bicytopenia secondary to liver cirrhosis Hospital Course: Patient is a pleasant 42-year-old male with a past medical history of alcohol abuse disorder and alcoholic liver cirrhosis. He is very well-known to our services and mostly recently discharged on 12/11/22. Patient reports he is unable to follow up outpatient secondary to transportation. He presented to the emergency department secondary to need for paracentesis. Patient reports having extensive diffuse abdominal pain with severe abdominal swelling/distention. He reports that he was recently approved for alf care by the [place] system and his last paracentesis was 12/11/22 with a removed approximately 15.4 L upon review of documentation in chart. Patient reports he is here to get alf placement and to have paracentesis completed. He underwent full evaluation in the emergency department. Labs completed and reviewed. CBC consistent with bicytopenia with hemoglobin of 8.3 and platelet count of 135. Coagulation profile revealing elevated PT of 13.8 and INR 1.4. BMP revealing hyperchloremic metabolic acidosis with chloride of 110 and sodium of 133, Bicarb low at 16 and anion gap of 7. Liver profile showing elevated total bili of 1.8 and albumin of 2.9. Urinalysis positive for protein negative for infection. Discussed patient thoroughly with the ED physician. Patient was admitted to our services to observation unit and consult placed to interventional radiology for paracentes is. On 12/14/22 patient underwent paracentesis with removal of 23 L of fluid. Patient received albumin 25% 4 bags. He was initially having difficulty with mobility, physical therapy was consulted. Over the course of his hospitalization, mobility did improve, patient now being discharged home. Patient will likely require repeat paracentesis, was recommended to see his GI specialist/complaint specialist. If he is not able to get repeat paracentesis, patient is at high risk for coming back to ER/readmission. Currently on Lasix only. Has low blood pressure, not on spironolactone. Patient seen and examined at bedside. Vital signs reviewed and stable. General: Chronically ill-appearing, emaciated his extremities with large distended cirrhotic abdomen Derm: Skin warm and dry, jaundiced Head: Atraumatic, normocephalic and symmetric.Scleral icterus Mouth: no lip lesions, mucus membranes moist Cardiovascular: regular rate and rhythm with normal S1S2, systolic murmur, positive posterior tibial pulses bilaterally, and cap refill < 2 seconds. Lungs: Respirations even, regular, and unlabored on room air. Lungs CTA bilaterally, no rhonchi, no rales, no wheezing, and no accessory muscle usage. Abdominal: Soft distended cirrhotic abdomen with diffuse tenderness, no guarding, no appreciable organomegaly Ext: ROM intact. No gross muscle atrophy, no edema, no contractures Neuro: Speech clear, face symmetrical and CN II-XII grossly intact with no noted focal neuro deficits Psych: Alert and oriented to person, place, time, and situation. Appropriate and pleasant affect. A total of 36 minutes of time were spent preparing this complex discharge summary. Patient was discharged on 12/26/22 at 11:08. Patient Condition at Discharge: Stable Plan - Discharge Summary Discharge Rx Participant: Yes New Discharge Prescriptions: Continue Midodrine [ProAmatine] 10 mg PO AC-TID #90 tab Pantoprazole [Protonix] 40 mg PO AC-BID #60 tab Furosemide [Lasix] 40 mg PO DAILY #30 tablet Ondansetron Odt [Zofran ODT] 4 mg PO Q8HR PRN #30 tab PRN Reason: Nausea And Vomiting Hydrocortisone [Cortef] 10 mg PO HS #30 tab HYDROcodone/APAP 10-325MG [[place] 10-325] 1 tab PO Q4HR PRN #18 tab PRN Reason: Pain Hydrocortisone [Cortef] 20 mg PO DAILY #30 tab Discharge Medication List Midodrine [ProAmatine] 10 mg PO AC-TID #90 tab 11/29/22 [Rx] Pantoprazole [Protonix] 40 mg PO AC-BID #60 tab 11/29/22 [Rx] Furosemide [Lasix] 40 mg PO DAILY #30 tablet 11/30/22 [Rx] Ondansetron Odt [Zofran ODT] 4 mg PO Q8HR PRN #30 tab 11/30/22 [Rx] HYDROcodone/APAP 10-325MG [[place] 10-325] 1 tab PO Q4HR PRN #18 tab 12/13/22 [Rx] Hydrocortisone [Cortef] 10 mg PO HS #30 tab 12/13/22 [Rx] Hydrocortisone [Cortef] 20 mg PO DAILY #30 tab 12/13/22 [Rx] Follow up Appointment(s)/Referral(s): [facility],Clinic [Primary Care Provider] - 1-2 days Patient Instructions/Handouts: Cirrhosis (DC) Activity/Diet/Wound Care/Special Instructions: Please see your PCP and GI specialist. You will need repeat paracentesis. Discharge Disposition: HOME SELF-CARE
== END 2022-12-26 15:12 | disposition home or self-care (01) | DRG 433 ==
LOC: EC 09:30 → 6NMEDSUR 10:57 → OBSVTOIN 10:58 → 6NMEDSUR 14:32
PROVIDERS: ADMIT Internal Medicine; ATTEND Internal Medicine
PROC: 0W9G3ZZ Drainage of Peritoneal Cavity, Percutaneous Approach (ICD-10-PCS; principal; 2022-12-23)
DX: K70.31 Alcoholic cirrhosis of liver with ascites (principal); E87.1 Hypo-osmolality and hyponatremia; E87.20 Acidosis, unspecified; K70.40 Alcoholic hepatic failure without coma; R79.1 Abnormal coagulation profile; I10 Essential (primary) hypertension; F43.10 Post-traumatic stress disorder, unspecified; F32.A Depression, unspecified; F17.200 Nicotine dependence, unspecified, uncomplicated; F10.11 Alcohol abuse, in remission; E87.8 Other disorders of electrolyte and fluid balance, not elsewhere classified; E87.70 Fluid overload, unspecified; E78.5 Hyperlipidemia, unspecified; Z79.899 Other long term (current) drug therapy; Z80.0 Family history of malignant neoplasm of digestive organs; Z88.8 Allergy status to other drugs, medicaments and biological substances
CPT/HCPCS: 36415; 49083; 80053; 81003; 83690; 83735; 85025; 85027; 85610; 85730; 96365; 96375; 99285

== ENCOUNTER 2023-01-01 09:15 | Day surgery (SDC) | payer OTHER ==
[~2023-01-01 09:15] MED LIST: ALBUMIN HUMAN 25% 50 ML in EMPTY BAG 1 BAG IVPB SCH
[2023-01-01 09:52] VITALS: RESP 16; TEMP 98.2
[2023-01-01 09:52] LABS: Platelet Count 225 k/uL (150-450)
[2023-01-01 10:06] LABS: INR 1.3 (<1.2); Prothrombin Time 12.9 sec (9.0-12.0)
[2023-01-01 10:24] LABS: African American GFR (CKD) >90 (>60 ml/min/1.73 sqM); Non-African American GFR(CKD) 83 (>60 ml/min/1.73 sqM)
[2023-01-01] MEDS: ALBUMIN HUMAN 25% 50 ML in EMPTY BAG 1 BAG IVPB SCH ×4 (10:53→11:00)
--- NOTE | 2023-01-01 11:59 | US ---
Ultrasound-guided paracentesis. DATE OF EXAM: 01/01/2023 CLINICAL HISTORY: Ascites The procedure was discussed with the patient. The risks, complications, benefits, and alternatives we re discussed and any questions were answered. Informed consent was obtained. The patient was placed s upine on the ultrasound table and prepped and draped in the usual sterile fashion. All elements of maximal barrier technique were utilized. Under ultrasound guidance, access into the right lower quadrant was obtained, via the paracentesis catheter system and direct ultrasound guidanc e. Approximately 15 liters of straw-colored fluid was removed. The patient was stable throughout the pro cedure and remained stable upon discharge from Department of Radiology. IMPRESSION: Successful paracentesis under ultrasound guidance.
[2023-01-01 12:14] VITALS: BP 112/70; PULSE 90
== END 2023-01-01 12:19 | disposition home or self-care (01) ==
LOC: RADPROMAIN 09:15
PROVIDERS: ATTEND Family Medicine
DX: R18.8 Other ascites (principal)
CPT/HCPCS: 82565; 85049; 85610; 36415; 49083; P9047

== ENCOUNTER 2023-01-08 23:05 | Inpatient (IN) | payer OTHER ==
[2023-01-08] MEDS ORDERED: ACETAMINOPHEN TAB 325 MG TAB PO STA (23:24)
[2023-01-08 23:50] LABS: Anisocytosis Slight; Basophils % (A) 0 %; Eosinophils # (A) 0.1 k/uL (0-0.7); Eosinophils % (A) 1 %; HCT 27.2 % (39.0-53.0); HGB 9.1 gm/dL (13.0-17.5); Hypochromasia Slight; Lymphocytes # (A) 1.5 k/uL (1.0-4.8); Lymphocytes % (A) 13 %; MCH 29.2 pg (25.0-35.0); MCHC 33.5 g/dL (31.0-37.0); Mean Platelet Volume 8.4; Monocytes # (A) 0.9 k/uL (0-1.0); Monocytes % (A) 8 %; Neutrophils # (A) 8.6 k/uL (1.3-7.7); Neutrophils % (A) 76 %; Platelet Count 124 k/uL (150-450); RBC 3.13 m/uL (4.30-5.90); RDW 17.3 % (11.5-15.5); WBC 11.4 k/uL (3.8-10.6)
[2023-01-08] MEDS: SODIUM CHLORIDE 0.9% 500 ML 500 ML IV SCH (23:54)
[2023-01-09 00:02] LABS: ALT 23 U/L (4-49); AST 28 U/L (17-59); African American GFR (CKD) >90 (>60 ml/min/1.73 sqM); Albumin 2.7 g/dL (3.5-5.0); Alkaline Phosphatase 72 U/L (38-126); Anion Gap 9 mmol/L; Blood Urea Nitrogen 29 mg/dL (9-20); Calcium 7.8 mg/dL (8.4-10.2); Carbon Dioxide 15 mmol/L (22-30); Chloride 104 mmol/L (98-107); Glucose 130 mg/dL (74-99); Non-African American GFR(CKD) >90 (>60 ml/min/1.73 sqM); Potassium 3.6 mmol/L (3.5-5.1); Sodium 128 mmol/L (137-145); Total Bilirubin 1.2 mg/dL (0.2-1.3); Total Protein 6.2 g/dL (6.3-8.2)
[2023-01-09 00:05] LABS: INR 1.3 (<1.2); Partial Thromboplastin Time 28.7 sec (22.0-30.0); Prothrombin Time 13.5 sec (9.0-12.0)
--- NOTE | 2023-01-09 00:44 | XR ---
EXAM: XR Chest, 1 View CLINICAL HISTORY: ITS.REASON XR Reason: Fever TECHNIQUE: Frontal view of the chest. COMPARISON: No relevant prior studies available. FINDINGS: Lungs: Low lung volumes, secondary to poor inspiration. Atelectasis at the LEFT lung base. Pleural space: Small RIGHT pleural effusion. Consolidation at the RIGHT lung base, correlate for atelectasis versus pneumonia. No pneumothorax. Heart: Unremarkable. No cardiomegaly. Mediastinum: Unremarkable. Bones/joints: Unremarkable. IMPRESSION: 1. Small RIGHT pleural effusion. Consolidation at the RIGHT lung base, correlate for atelectasis versus pneumonia. 2. Low lung volumes, secondary to poor inspiration.
[2023-01-09] MEDS: SODIUM CHLORIDE 0.9% 500 ML 500 ML IV SCH (00:54)
[2023-01-09 02:12] LABS: Appearance,Urine Clear (Clear); Bilirubin,Urine Negative (Negative); Blood,Urine Negative (Negative); Color,Urine Yellow; Glucose,Urine (UA) Negative (Negative); Ketones,Urine Negative (Negative); Leukocyte Esterase,Urine Negative (Negative); Nitrite,Urine Negative (Negative); Protein,Urine Trace (Negative); Specific Gravity,Urine 1.027 (1.001-1.035)
[2023-01-09] MEDS ORDERED: VANCOMYCIN IV PER PHARMACY 1 EACH MISC MISCELLANE PRN (03:04)
[2023-01-09] MEDS ORDERED: cefTRIAXone IN SWFI 1,000 MG/10 ML SYRINGE IVP STA (03:13)
[2023-01-09] MEDS ORDERED: AZITHROMYCIN 500 MG in SODIUM CHLORIDE 0.9% 250 ML IVPB STA (03:13)
--- NOTE | 2023-01-09 03:16 | ED ---
General Adult HPI - General Chief complaint: Abdominal Pain Stated complaint: Abdominal pain Time Seen by Provider: 01/08/23 23:11 Source: EMS Mode of arrival: EMS Limitations: no limitations - History of Present Illness Initial comments: This is a 43-year-old male with a past medical history including cirrhosis and ascites presents the emergency department via EMS for abdominal pain and weakness. The patient stated that he was due to have his ascites drained today but stated that he had worsening pain over the last 2 days. The patient was given pain medications by EMS during transport here. The patient denied any recent sick contacts but did state that he had some mild fevers at home. The patient denied nausea and vomiting but did state that he had decreased appetite. The patient is well-known to the emergency department and has been here several times for the same complaint. The patient did state however that the fever is new. The patient denied any other acute pain or complaints at this time. - Related Data Previous Rx's Medication Instructions Recorded Pantoprazole [Protonix] 40 mg PO AC-BID #60 tab 11/29/22 Furosemide [Lasix] 40 mg PO DAILY #30 tablet 11/30/22 Ondansetron Odt [Zofran ODT] 4 mg PO Q8HR PRN #30 tab 11/30/22 Hydrocortisone [Cortef] 10 mg PO HS #30 tab 12/13/22 Hydrocortisone [Cortef] 20 mg PO DAILY #30 tab 12/13/22 HYDROcodone/APAP 10-325MG [[place] 1 tab PO Q4HR PRN #10 tab 12/26/22 10-325] Midodrine [ProAmatine] 10 mg PO AC-TID #90 tab 12/26/22 Allergies Allergy/AdvReac Type Severity Reaction Status Date / Time ibuprofen [From Motrin] Allergy Swelling Verified 01/01/23 11:42 Lips naproxen Allergy Swelling Verified 01/01/23 11:42 Lips Review of Systems ROS Statement: Those systems with pertinent positive or pertinent negative responses have been documented in the HPI. ROS Other: All systems not noted in ROS Statement are negative. Past Medical History Past Medical History: Hyperlipidemia, Hypertension, Liver Disease, Pneumonia Additional Past Medical History / Comment(s): Alcoholism, past withdrawals with tremors/diaphoresis, elevated LFTs, alcoholic liver cirrhosis, ascities with paracentesis, severe sepsis/aspiration pneumonia, occasional upper back pain. History of Any Multi-Drug Resistant Organisms: None Reported Past Surgical History: No Surgical Hx Reported Additional Past Surgical History / Comment(s): Pt states he has never had surgery Past Anesthesia/Blood Transfusion Reactions: Unable to Obtain Additional Past Anesthesia/Blood Transfusion Reaction / Comment(s): Pt states he has never had surgery. Past Psychological History: Depression, PTSD Smoking Status: Current every day smoker Past Alcohol Use History: Abuse Past Drug Use History: None Reported - Past Family History Mother Family Medical History: Cancer Additional Family Medical History / Comment(s): Mother has colon cancer. Father History Unknown: Yes Additional Family Medical History / Comment(s): All pt knows about his father is that he is . General Exam Limitations: no limitations General appearance: alert, in no apparent distress Head exam: Present: atraumatic, normocephalic, normal inspection Eye exam: Present: normal appearance, PERRL Pupils: Present: normal accommodation ENT exam: Present: normal exam, normal oropharynx, mucous membranes moist Neck exam: Present: normal inspection, full ROM Respiratory exam: Present: normal lung sounds bilaterally Cardiovascular Exam: Present: regular rate, normal rhythm, normal heart sounds GI/Abdominal exam: Present: distended, other (Fluid wave). Absent: tenderness, guarding Extremities exam: Present: normal inspection, full ROM Back exam: Present: normal inspection, full ROM Neurological exam: Present: alert, oriented X3, CN II-XII intact Psychiatric exam: Present: normal affect, normal mood Skin exam: Present: warm, dry Course Vital Signs 01/08/23 01/08/23 01/08/23 23:08 23:15 23:30 Temperature 101.6 F H Pulse Rate 114 H 97 Respiratory 18 19 17 Rate Blood Pressure 97/46 92/50 O2 Sat by Pulse 96 98 Oximetry 01/09/23 01/09/23 01/09/23 00:00 01:00 02:00 Temperature 99.0 F Pulse Rate 98 99 96 Respiratory 18 16 Rate Blood Pressure 118/70 95/54 114/65 O2 Sat by Pulse 97 96 Oximetry EKG Findings - EKG Comments: EKG Findings:: An EKG was obtained and was interpreted by myself showing a rate of 105, HI interval of 114, QS duration of 106 and QTC of 405. This EKG showed a sinus tachycardia with a short HI interval however there was no ST segment elevation or depression noted. Medical Decision Making - Medical Decision Making Was pt. sent in by a medical professional or institution (TASHA Camejo, [employer], urgent care, hospital, or residential...) When possible be specific @ -No Did you speak to anyone other than the patient for history (EMS, parent, family, police, friend...)? What history was obtained from this source @ -No Did you review nursing and triage notes (agree or disagree)? Why? @ -I reviewed and agree with nursing and triage notes Were old charts reviewed (outside hosp., previous admission, EMS record, old EKG, old radiological studies, urgent care reports/EKG's, residential records)? Report findings @ -No old charts were reviewed Differential Diagnosis (chest pain, altered mental status, abdominal pain women, abdominal pain men, vaginal bleeding, weakness, fever, dyspnea, syncope, headache, dizziness, GI bleed, back pain, seizure, CVA, palpatations, mental health)? @ -Chronic abdominal ascites, SBP, sepsis, URI EKG interpreted by me (3pts min.). @ -As above X-rays interpreted by me (1pt min.). @ -Chest x-ray was obtained and was interpreted by myself showing small right pleural effusion. There is also consolidation in the right lung base and could correlate for pneumonia. There was a lung volumes secondary to poor inspiration. CT interpreted by me (1pt min.). @ -None done U/S interpreted by me (1pt. min.). @ -None done What testing was considered but not performed or refused? (CT, X-rays, U/S, labs)? Why? @ -None What meds were considered but not given or refused? Why? @ -None Did you discuss the management of the patient with other professionals (professionals i.e. TASHA Camejo, [employer], lab, RT, psych nurse, professor of social work, classified advertising clerk, teacher, bank secrecy act officer, director case)? Give summary @ -Yes, the admitting physician was contacted regarding patient admission. Was smoking cessation discussed for >3mins.? @ -No Was critical care preformed (if so, how long)? @ -No Were there social determinants of health that impacted care today? How? (Homelessness, low income, unemployed, alcoholism, drug addiction, transportatio n, low edu. Level, literacy, decrease access to med. care, usp, rehab)? @ -No Was there de-escalation of care discussed even if they declined (Discuss DNR or withdrawal of care, Hospice)? DNR status @ -No What co-morbidities impacted this encounter? (DM, HTN, Smoking, COPD, CAD, Cancer, CVA, ARF, Chemo, Hep., AIDS, mental health diagnosis, sleep apnea, morbid obesity)? @ -Chronic ascites Was patient admitted / discharged? Hospital course, mention meds given and route, prescriptions, significant lab abnormalities, going to OR and other pertinent info. @ -The patient was seen and evaluated emergency department. Physical exam, the patient was resting in bed without any acute distress. Vital signs admission were stable. However the patient did have a temperature. Due to this in the setting of tachycardia, sepsis workup was obtained initially on arrival. The patient did not have an increased white blood cell count and labs were largely within normal limits. Patient did have a chest x-ray that showed possible right-sided pneumonia and due to the patient's multiple paracenteses and being in a hospital setting every week, the patient will be treated for healthcare associated pneumonia at this time. The patient had rocephin and azithromycin ordered at this time per the admitting team. The patient's abdomen was soft and nontender my evaluation and at this time was unlikely to be SBP. The patient was told of this plan of admission and was agreeable. The patient was admitted in stable condition. Undiagnosed new problem with uncertain prognosis? @ -No Drug Therapy requiring intensive monitoring for toxicity (Heparin, Nitro, Insulin, Cardizem)? @ -No Were any procedures done? @ -No Diagnosis/symptom? @ -Healthcare associated pneumonia, chronic ascites Acute, or Chronic, or Acute on Chronic? @ -Acute Uncomplicated (without systemic symptoms) or Complicated (systemic symptoms)? @ -Complicated Side effects of treatment? @ -No Exacerbation, Progression, or Severe Exacerbation? @ -No Poses a threat to life or bodily function? How? (Chest pain, USA, IA, pneumonia, PE, COPD, DKA, ARF, appy, cholecystitis, CVA, Diverticulitis, Homicidal, Suicidal, threat to staff... and all critical care pts) @ -Yes, continued pneumonia can lead to sepsis, endorgan damage and possible . - Lab Data Result diagrams: 01/08/23 22:30 01/08/23 22:30 Lab Results 01/08/23 01/08/23 01/08/23 Range/Units 22:30 22:30 22:30 WBC 11.4 H (3.8-10.6) k/uL RBC 3.13 L (4.30-5.90) m/uL Hgb 9.1 L (13.0-17.5) gm/dL Hct 27.2 L (39.0-53.0) % MCV 87.0 (80.0-100.0) fL MCH 29.2 (25.0-35.0) pg MCHC 33.5 (31.0-37.0) g/dL RDW 17.3 H (11.5-15.5) % Plt Count 124 L (150-450) k/uL MPV 8.4 Neutrophils % 76 % Lymphocytes % 13 % Monocytes % 8 % Eosinophils % 1 % Basophils % 0 % Neutrophils # 8.6 H (1.3-7.7) k/uL Lymphocytes # 1.5 (1.0-4.8) k/uL Monocytes # 0.9 (0-1.0) k/uL Eosinophils # 0.1 (0-0.7) k/uL Basophils # 0.0 (0-0.2) k/uL Hypochromasia Slight Anisocytosis Slight PT 13.5 H (9.0-12.0) sec INR 1.3 H (<1.2) APTT 28.7 (22.0-30.0) sec Sodium 128 L (137-145) mmol/L Potassium 3.6 (3.5-5.1) mmol/L Chloride 104 (98-107) mmol/L Carbon Dioxide 15 L (22-30) mmol/L Anion Gap 9 mmol/L BUN 29 H (9-20) mg/dL Creatinine 0.90 (0.66-1.25) mg/dL Est GFR (CKD-EPI)AfAm >90 (>60 ml/min/1.73 sqM) Est GFR (CKD-EPI)NonAf >90 (>60 ml/min/1.73 sqM) Glucose 130 H (74-99) mg/dL Plasma Lactic Acid Willam (0.7-2.0) mmol/L Calcium 7.8 L (8.4-10.2) mg/dL Total Bilirubin 1.2 (0.2-1.3) mg/dL AST 28 (17-59) U/L ALT 23 (4-49) U/L Alkaline Phosphatase 72 (38-126) U/L Total Protein 6.2 L (6.3-8.2) g/dL Albumin 2.7 L (3.5-5.0) g/dL Urine Color Urine Appearance (Clear) Urine pH (5.0-8.0) Ur Specific [place] (1.001-1.035) Urine Protein (Negative) Urine Glucose (UA) (Negative) Urine Ketones (Negative) Urine Blood (Negative) Urine Nitrite (Negative) Urine Bilirubin (Negative) Urine Urobilinogen (<2.0) mg/dL Ur Leukocyte Esterase (Negative) Influenza Type A (PCR) (Not Detectd) Influenza Type B (PCR) (Not Detectd) RSV (PCR) (Not Detectd) SARS-CoV-2 (PCR) (Not Detectd) 01/08/23 01/09/23 01/09/23 Range/Units 22:30 01:04 01:55 WBC (3.8-10.6) k/uL RBC (4.30-5.90) m/uL Hgb (13.0-17.5) gm/dL Hct (39.0-53.0) % MCV (80.0-100.0) fL MCH (25.0-35.0) pg MCHC (31.0-37.0) g/dL RDW (11.5-15.5) % Plt Count (150-450) k/uL MPV Neutrophils % % Lymphocytes % % Monocytes % % Eosinophils % % Basophils % % Neutrophils # (1.3-7.7) k/uL Lymphocytes # (1.0-4.8) k/uL Monocytes # (0-1.0) k/uL Eosinophils # (0-0.7) k/uL Basophils # (0-0.2) k/uL Hypochromasia Anisocytosis PT (9.0-12.0) sec INR (<1.2) APTT (22.0-30.0) sec Sodium (137-145) mmol/L Potassium (3.5-5.1) mmol/L Chloride (98-107) mmol/L Carbon Dioxide (22-30) mmol/L Anion Gap mmol/L BUN (9-20) mg/dL Creatinine (0.66-1.25) mg/dL Est GFR (CKD-EPI)AfAm (>60 ml/min/1.73 sqM) Est GFR (CKD-EPI)NonAf (>60 ml/min/1.73 sqM) Glucose (74-99) mg/dL Plasma Lactic Acid Willam 1.8 (0.7-2.0) mmol/L Calcium (8.4-10.2) mg/dL Total Bilirubin (0.2-1.3) mg/dL AST (17-59) U/L ALT (4-49) U/L Alkaline Phosphatase (38-126) U/L Total Protein (6.3-8.2) g/dL Albumin (3.5-5.0) g/dL Urine Color Yellow Urine Appearance Clear (Clear) Urine pH 6.0 (5.0-8.0) Ur Specific [place] 1.027 (1.001-1.035) Urine Protein Trace H (Negative) Urine Glucose (UA) Negative (Negative) Urine Ketones Negative (Negative) Urine Blood Negative (Negative) Urine Nitrite Negative (Negative) Urine Bilirubin Negative (Negative) Urine Urobilinogen 2.0 (<2.0) mg/dL Ur Leukocyte Esterase Negative (Negative) Influenza Type A (PCR) Not Detected (Not Detectd) Influenza Type B (PCR) Not Detected (Not Detectd) RSV (PCR) Not Detected (Not Detectd) SARS-CoV-2 (PCR) Not Detected (Not Detectd) Disposition Clinical Impression: Abdominal ascites, HCAP (healthcare-associated pneumonia) Disposition: ADMITTED IP TO THIS [facility] Condition: Stable Is patient prescribed a controlled substance at d/c from ED?: No Referrals: Marcin Pond PAC [Primary Care Provider] - 1-2 days Time of Disposition: 02:30 Decision to Admit Reason: Admit from EC Decision Date: 01/09/23 Decision Time: 02:30
[2023-01-09] MEDS ORDERED: NALOXONE 0.4 MG/ML 1 ML VIAL IV PRN (03:17)
[2023-01-09] MEDS: MORPHINE SULFATE 4 MG/ML SYRINGE IV PRN ×3 (03:39→22:13)
[2023-01-09] MEDS ORDERED: VANCOMYCIN 2,000 MG in SODIUM CHLORIDE 0.9% 500 ML 500 ML IVPB ONE (04:00)
[2023-01-09] MEDS ORDERED: CEFEPIME 1 GM in SODIUM CHLORIDE 0.9% 50 ML IVPB ONE (04:00)
[2023-01-09] MEDS ORDERED: ONDANSETRON 4 MG/2 ML VIAL IVP PRN (05:04)
[2023-01-09] MEDS ORDERED: ACETAMINOPHEN TAB 325 MG TAB PO PRN (05:04)
--- NOTE | 2023-01-09 05:09 | P.HPIM ---
History of Present Illness H&P Date: 01/09/23 Chief Complaint: Abdominal pain 43-year-old male with hypertension, end stage liver disease with ascites requiring recurrent paracentesis Patient was recently seen in the hospital ultrasound-guided paracentesis was done and then discharged about 2 weeks ago he comes back again today with 2 day history of increasing abdominal pain he describes it as right-sided abdominal p ain mainly in the right upper quadrant with increased size of his abdomen and swelling extending down into his scrotum he denies any nausea vomiting denies any bleeding. He also reports some fevers at home he denies any known sick contacts denies any coughing shortness of breath or hemoptysis. He reports that he was due for paracentesis today however he couldn't come due to pain. He denies any alcohol abuse or smoking at this point. He denies any history of blood clots denies any constipation denies any hematuria or GI bleed He reports generalized weakness denies any falls or head injury denies any new focal neuro deficits review of systems Pertinent positives as noted in HPI. All other systems were reviewed and are negative on exam Constitutional: No acute distress, cooperative Eyes: Anicteric sclerae, moist conjunctiva, Pupils equal round reactive to light ENMT: NC/AT Oropharynx clear, no erythema, or exudates Neck: Supple, no masses, or JVD No carotid bruits No thyromegaly Lungs: Decreased breath sounds at right lung base with some inspiratory ral es Clear to percussion Normal respiratory effort, no accessory muscle use Cardiovascular: Heart regular in rate and rhythm, No murmurs, gallops, or rubs No peripheral edema Abdominal: Severely distended positive shifting dullness Nontender, no guarding, rebound or rigidity Abdomen moving with respiration Normoactive bowel sounds No palpable mass Large periumbilical hernia with left inguinal hernia with swelling extending into the scrotum Extremities: No digital cyanosis Pedal pulses intact and symmetrical Radial pulses intact and symmetrical No calf tenderness Psychiatric: Alert and oriented to person, place and time Appropriate affect fair judgement Neuro Muscles Strength 4/5 in all 4 extremities Sensation to light touch grossly present throughout Cranial nerves II-XII grossly intact Lymphatics: no palpable cervical or supraclavicular lymph nodes Past Medical History Past Medical History: Hyperlipidemia, Hypertension, Liver Disease, Pneumonia Additional Past Medical History / Comment(s): Alcoholism, past withdrawals with tremors/diaphoresis, elevated LFTs, alcoholic liver cirrhosis, ascities with paracentesis, severe sepsis/aspiration pneumonia, occasional upper back pain. History of Any Multi-Drug Resistant Organisms: None Reported Past Surgical History: No Surgical Hx Reported Additional Past Surgical History / Comment(s): Pt states he has never had surgery Past Anesthesia/Blood Transfusion Reactions: Unable to Obtain Additional Past Anesthesia/Blood Transfusion Reaction / Comment(s): Pt states he has never had surgery. Past Psychological History: Depression, PTSD Smoking Status: Current every day smoker Past Alcohol Use History: Abuse Past Drug Use History: None Reported - Past Family History Mother Family Medical History: Cancer Additional Family Medical History / Comment(s): Mother has colon cancer. Father History Unknown: Yes Additional Family Medical History / Comment(s): All pt knows about his father is that he is . Medications and Allergies Home Medications Medication Instructions Recorded Confirmed Type Pantoprazole [Protonix] 40 mg PO AC-BID #60 tab 11/29/22 01/01/23 Rx Furosemide [Lasix] 40 mg PO DAILY #30 tablet 11/30/22 01/01/23 Rx Ondansetron Odt [Zofran ODT] 4 mg PO Q8HR PRN #30 tab 11/30/22 01/01/23 Rx Hydrocortisone [Cortef] 10 mg PO HS #30 tab 12/13/22 01/01/23 Rx Hydrocortisone [Cortef] 20 mg PO DAILY #30 tab 12/13/22 01/01/23 Rx HYDROcodone/APAP 10-325MG [[place] 1 tab PO Q4HR PRN #10 tab 12/26/22 01/01/23 Rx 10-325] Midodrine [ProAmatine] 10 mg PO AC-TID #90 tab 12/26/22 01/01/23 Rx Allergies Allergy/AdvReac Type Severity Reaction Status Date / Time ibuprofen [From Motrin] Allergy Swelling Verified 01/01/23 11:42 Lips naproxen Allergy Swelling Verified 01/01/23 11:42 Lips Physical Exam Vitals: Vital Signs Temp Pulse Resp BP Pulse Ox 01/09/23 02:00 99.0 F 96 114/65 96 01/09/23 01:00 99 16 95/54 97 01/09/23 00:00 98 18 118/70 01/08/23 23:30 97 17 92/50 98 01/08/23 23:15 19 01/08/23 23:08 101.6 F H 114 H 18 97/46 96 Intake and Output 01/08/23 01/08/23 01/09/23 14:59 22:59 06:59 Other: Weight 81.647 kg Results CBC & Chem 7: 01/08/23 22:30 01/08/23 22:30 Labs: Abnormal Lab Results - Last 24 Hours (Table) 01/08/23 01/08/23 01/08/23 Range/Units 22:30 22:30 22:30 WBC 11.4 H (3.8-10.6) k/uL RBC 3.13 L (4.30-5.90) m/uL Hgb 9.1 L (13.0-17.5) gm/dL Hct 27.2 L (39.0-53.0) % RDW 17.3 H (11.5-15.5) % Plt Count 124 L (150-450) k/uL Neutrophils # 8.6 H (1.3-7.7) k/uL PT 13.5 H (9.0-12.0) sec INR 1.3 H (<1.2) Sodium 128 L (137-145) mmol/L Carbon Dioxide 15 L (22-30) mmol/L BUN 29 H (9-20) mg/dL Glucose 130 H (74-99) mg/dL Calcium 7.8 L (8.4-10.2) mg/dL Total Protein 6.2 L (6.3-8.2) g/dL Albumin 2.7 L (3.5-5.0) g/dL Urine Protein (Negative) 01/09/23 Range/Units 01:55 WBC (3.8-10.6) k/uL RBC (4.30-5.90) m/uL Hgb (13.0-17.5) gm/dL Hct (39.0-53.0) % RDW (11.5-15.5) % Plt Count (150-450) k/uL Neutrophils # (1.3-7.7) k/uL PT (9.0-12.0) sec INR (<1.2) Sodium (137-145) mmol/L Carbon Dioxide (22-30) mmol/L BUN (9-20) mg/dL Glucose (74-99) mg/dL Calcium (8.4-10.2) mg/dL Total Protein (6.3-8.2) g/dL Albumin (3.5-5.0) g/dL Urine Protein Trace H (Negative) Assessment and Plan Assessment: 43-year-old male with hypertension and end-stage liver disease secondary to alcoholic cirrhosis requiring frequent abdominal paracentesis coming in for abdominal pain and distention discussed the case with the ED doctor I accepted the admission for sepsis to rule out underlying infectious process suspected pneumonia versus SBP with anticipated length of stay more than 2 midnights Sepsis (fever and tachycardia) secondary to underlying pneumonia versus SBP Follow-up cultures Chest x-ray showed small right pleural effusion and consolidation right lung base IR consulted for paracentesis diagnostic and therapeutic Initiated on azithromycin 500 mg daily IV piggyback Rocephin 2 g daily IV piggyback this would cover underlying pneumonia versus SBP Monitor vital signs Tylenol when necessary for fever Morphine when necessary 2 mg IV every 3 hours for pain Fall precautions White count 11.4 Zofran when necessary GI prophylaxis with Protonix daily Lactulose 20 g 3 times a day targeting 3-5 bowel movements a day hyponatremia hold lasix Sodium 128 continue to monitor Chronic conditions hypotension resume midodrine Blood work showing chronic anemia hemoglobin 9.1 Denies GI bleeding Continue to monitor hemoglobin BUN 29 creatinine 0.9 potassium 3.6 unremarkable full code DVT PPX mechanical
[2023-01-09] MEDS: PANTOPRAZOLE 40 MG TABLET PO SCH ×2 (07:29→18:01)
[2023-01-09] MEDS: MIDODRINE 5 MG TAB PO SCH ×3 (07:49→18:01)
[2023-01-09] MEDS ORDERED: LACTULOSE 20 GM/30 ML CUP PO SCH (08:00)
[2023-01-09] MEDS: HYDROCORTISONE 20 MG TAB PO SCH (09:10)
[2023-01-09] MEDS: ALBUMIN HUMAN 25% 50 ML in EMPTY BAG 1 BAG IVPB SCH ×4 (10:46→11:39)
[2023-01-09] MEDS: polyethylene glycoL 3350 17 GM POWD.PACK PO SCH (10:48)
[2023-01-09] MEDS: HYDROcodone/APAP 10-325MG 1 EACH TAB PO PRN ×2 (14:51→19:22)
--- NOTE | 2023-01-09 17:49 | US ---
EXAMINATION TYPE: US paracentesis abd w/image DATE OF EXAM: 01/09/2023 CLINICAL HISTORY: 44-year-old male with liver disease and recurrent ascites presents with distention and fever. The procedure was discussed with the patient. The risks, complications, benefits, and alternatives we re discussed and any questions were answered. Informed consent was obtained. The patient was placed s upine on the ultrasound table and prepped and draped in the usual sterile fashion. All elements of maximal barrier technique were utilized. Under ultrasound guidance, access into the right lower quadrant was obtained, via the 6 [place] safety centesis catheter system and ultrasound ma rking. Approximately 20.4 liters of slightly opaque, light yellow fluid was removed. The patient reports michaelle t this is the typical appearance of his aspirated fluid. Sample was collected and labeled for laborat ory assessment. The catheter was removed, hemostasis obtained, and a dressing placed. The patient was stable throughout the procedure and remained stable upon discharge from Department of Radiology. IMPRESSION: Successful diagnostic and therapeutic paracentesis under ultrasound guidance. 20.4 L of fluid removed . Laboratory analysis pending.
[2023-01-09 21:45] LABS: Appearance,BF Turbid (Clear)
[2023-01-09] MEDS: HYDROCORTISONE 10 MG TAB PO SCH (22:07)
[2023-01-10 01:59] LABS: Glucose, BF Source Ascites; Glucose, Body Fluid 114 mg/dL; T. Protein, Body Fluid Source Ascites; Total Protein, Body Fluid 926 mg/dL
[2023-01-10] MEDS: MORPHINE SULFATE 4 MG/ML SYRINGE IV PRN ×5 (03:35→22:34)
[2023-01-10] MEDS: AZITHROMYCIN 500 MG in SODIUM CHLORIDE 0.9% 250 ML IVPB SCH (03:39)
[2023-01-10] MEDS: PANTOPRAZOLE 40 MG TABLET PO SCH ×2 (06:29→18:25)
[2023-01-10] MEDS: MIDODRINE 5 MG TAB PO SCH ×3 (06:29→18:25)
[2023-01-10] MEDS: polyethylene glycoL 3350 17 GM POWD.PACK PO SCH (08:40)
[2023-01-10] MEDS: HYDROCORTISONE 20 MG TAB PO SCH (08:41)
[2023-01-10 10:03] LABS: Anisocytosis Slight; HGB 9.1 gm/dL (13.0-17.5); Hypochromasia Moderate; MCH 28.2 pg (25.0-35.0); MCHC 31.5 g/dL (31.0-37.0); MCV 89.5 fL (80.0-100.0); Mean Platelet Volume 8.4; Platelet Count 127 k/uL (150-450); RBC 3.23 m/uL (4.30-5.90); RDW 17.5 % (11.5-15.5); WBC 7.8 k/uL (3.8-10.6)
[2023-01-10 10:15] LABS: ALT 19 U/L (4-49); AST 27 U/L (17-59); African American GFR (CKD) >90 (>60 ml/min/1.73 sqM); Albumin 2.8 g/dL (3.5-5.0); Albumin/Globulin Ratio 0.9; Alkaline Phosphatase 66 U/L (38-126); Anion Gap 7 mmol/L; Blood Urea Nitrogen 30 mg/dL (9-20); Calcium 8.2 mg/dL (8.4-10.2); Carbon Dioxide 17 mmol/L (22-30); Chloride 107 mmol/L (98-107); Globulin 3.1 g/dL; Glucose 132 mg/dL (74-99); Non-African American GFR(CKD) >90 (>60 ml/min/1.73 sqM); Sodium 131 mmol/L (137-145); Total Bilirubin 0.9 mg/dL (0.2-1.3); Total Protein 5.9 g/dL (6.3-8.2)
[2023-01-10] MEDS: FUROSEMIDE 40 MG TAB PO SCH (12:14)
--- NOTE | 2023-01-10 14:55 | P.PN ---
Subjective Progress Note Date: 01/10/23 Hospital course: Patient is a very pleasant 43-year-old male with a past medical history of alcohol abuse disorder and alcoholic liver cirrhosis. He is very well-known to our services and mostly recently discharged on 12/26/22. Patient requires recurrent large-volume paracentesis. Patient reports he is unable to follow up outpatient secondary to transportation and continues coming to the emergency department to undergo admission for needed paracentesis. He presented to the emergency department on 01/09/23 secondary to increased abdominal pain and discomfort secondary to need for paracentesis. Physical exam: Vital signs reviewed and stable. General: Chronically ill-appearing, emaciated his extremities with large distended cirrhotic abdomen Derm: Skin warm and dry, jaundiced Head: Atraumatic, normocephalic and symmetric.Scleral icterus Mouth: no lip lesions, mucus membranes moist Cardiovascular: regular rate and rhythm with normal S1S2, systolic murmur, positive posterior tibial pulses bilaterally, and cap refill < 2 seconds. Lungs: Respirations even, regular, and unlabored on room air. Lungs CTA bilaterally, no rhonchi, no rales, no wheezing, and no accessory muscle usage. Abdominal: Soft Distended cirrhotic abdomen with diffuse tenderness, no guarding, no appreciable organomegaly Ext: ROM intact. No gross muscle atrophy, no edema, no contractures Neuro: Speech clear, face symmetrical and CN II-XII grossly intact with no noted focal neuro deficits Psych: Alert and oriented to person, place, time, and situation. Appropriate and pleasant affect. Assessment and Plan of Care: Decompensated alcohol liver cirrhosis Sepsis, likely SBP Right lower lobe consolidation, Pt asymptomatic of respiratory complaints, RLL consolidation likely atelectasis. Hyponatremia secondary to extensive ascites Prerenal azotemia Bicytopenia secondary to liver cirrhosis -Patient is status post paracentesis, large volume paracentesis with removal of 20.4 L of fluid on 01/09/23 -Ascitic fluid reported to have turbid appearance with 121 WBC count. -Paracentesis fluid culture pending -Status post albumin 25% IVPB 4 bags -Continue Lasix 40 mg daily, hydrocortisone 20 mg daily and 10 mg nightly, and midodrine 10 mg 3 times daily, -Continue GI prophylaxis with Protonix 40 mg twice daily. -Continue IV antibiotics with Zithromax 500 mg daily and Rocephin 2 g daily -Preliminary blood cultures positive for gram-positive cocci in clusters 1 of 2 Cultures. Second culture showing no growth after 24 hours. This is believed to be contaminant, will hold off on adding additional antibiotics at this time. Data reviewed: -Preliminary blood cultures positive for gram-positive cocci in clusters 1 of 2 Cultures. Second culture showing no growth after 24 hours. This is believed to be contaminant, will hold off on adding additional antibiotics at this time. Ascitic fluid reported to have turbid appearance with 121 WBC count. Paracentesis fluid culture pending. CBC showing resolution of previous noted leukocytosis with WBC count of 7.8 previous 11.4 and stable normocytic anemia with hemoglobin of 9.1 and thrombocytopenia with platelet count of 127. BMP showing improvement of sodium from 128 up to 131 status post paracentesis. -Vital signs reviewed. Blood pressure 97/61, heart rate 90, respiratory rate 16, temp 98.1F, and SpO2 100% on room air. CODE STATUS: Full code DVT prophylaxis: SCDs Discussed with: Patient and RN Anticipated discharge date: clinical course to determine Anticipated discharge place: HOME Patient was seen independently by Nurse Practitioner. This document was prepared using [employer] dictation software. Please allow for errors in terminal system operator while rare they do occur. I reviewed the documentation as provided by the TESSY above, who is the original author of this note. I agree with the documented assessment and plan, with the following changes: none Objective - Vital Signs Vital signs: Vital Signs Temp 98.1 F 01/10/23 07:18 Pulse 90 01/10/23 07:18 Resp 16 01/10/23 07:18 BP 97/61 01/10/23 07:18 Pulse Ox 100 01/10/23 07:18 FiO2 Intake & Output 01/09/23 01/10/23 01/10/23 18:59 06:59 18:59 Weight 81.647 kg Other: # Voids 2 - Labs CBC & Chem 7: 01/10/23 09:42 01/10/23 09:42 Labs: Abnormal Lab Results - Last 24 Hours (Table) 01/09/23 Range/Units 10:16 Fluid Appearance Turbid A (Clear) Microbiology - Last 24 Hours (Table) 01/08/23 22:45 Blood Culture Gram Stain - Preliminary Blood 01/08/23 22:30 Blood Culture - Preliminary Blood
[2023-01-10] MEDS: HYDROCORTISONE 10 MG TAB PO SCH (22:32)
[2023-01-11] MEDS: MORPHINE SULFATE 4 MG/ML SYRINGE IV PRN ×4 (03:17→22:11)
[2023-01-11] MEDS: AZITHROMYCIN 500 MG in SODIUM CHLORIDE 0.9% 250 ML IVPB SCH (04:13)
[2023-01-11] MEDS: MIDODRINE 5 MG TAB PO SCH ×3 (06:37→17:51)
[2023-01-11] MEDS: PANTOPRAZOLE 40 MG TABLET PO SCH ×2 (06:37→17:51)
[2023-01-11] MEDS: polyethylene glycoL 3350 17 GM POWD.PACK PO SCH (08:03)
[2023-01-11] MEDS: HYDROCORTISONE 20 MG TAB PO SCH (08:03)
[2023-01-11] MEDS: FUROSEMIDE 40 MG TAB PO SCH (09:56)
[2023-01-11] MEDS: HYDROcodone/APAP 10-325MG 1 EACH TAB PO PRN ×2 (10:00→17:55)
[2023-01-11 10:31] LABS: HCT 26.6 % (39.6-50.0); HGB 8.7 d/dL (13.0-17.0); MCHC 32.7 d/dL (32.0-37.0); MCV 85.5 FL (80.0-97.0); Mean Platelet Volume 11.1 FL (9.5-12.2); NRBC Per 100 WBC 0 X 10*3/uL (0.00-0.01); Platelet Count 147 X 10*3/uL (140-440); RBC 3.11 X 10*6/uL (4.40-5.60); RDW 17.4 % (11.5-14.5); WBC 9.71 X 10*3/uL (4.50-10.00)
[2023-01-11 10:38] LABS: ALT 16 U/L (10-49); AST 25 U/L (14-35); Albumin/Globulin Ratio 1.11 Ratio (1.60-3.17); Alkaline Phosphatase 62 U/L (41-126); Blood Urea Nitrogen 26.7 mg/dL (9.0-27.0); Calcium 8.2 mg/dL (8.7-10.3); Carbon Dioxide 16.1 mmol/L (21.6-31.8); Chloride 101 mmol/L (96-109); Globulin 2.7 d/dL (1.6-3.3); Glucose 148 mg/dL (70-110); Potassium 3.9 mmol/L (3.5-5.5); Sodium 130 mmol/L (135-145); Total Bilirubin 0.6 mg/dL (0.3-1.2); Total Protein 5.7 d/dL (6.2-8.2)
--- NOTE | 2023-01-11 15:28 | P.PN ---
Subjective Progress Note Date: 01/11/23 Hospital course: Patient is a very pleasant 43-year-old male with a past medical history of alcohol abuse disorder and alcoholic liver cirrhosis. He is very well-known to our services and mostly recently discharged on 12/26/22. Patient requires recurrent large-volume paracentesis. Patient reports he is unable to follow up outpatient secondary to transportation and continues coming to the emergency department to undergo admission for needed paracentesis. He presented to the emergency department on 01/09/23 secondary to increased abdominal pain and discomfort secondary to need for paracentesis. Patient underwent large volume paracentesis with removal of 20.4 L of fluid on 01/09/23. Physical exam: Vital signs reviewed and stable. General: Chronically ill-appearing, emaciated his extremities with large distended cirrhotic abdomen Derm: Skin warm and dry, jaundiced Head: Atraumatic, normocephalic and symmetric.Scleral icterus Mouth: no lip lesions, mucus membranes moist Cardiovascular: regular rate and rhythm Lungs: Respirations even, regular, and unlabored on room air with no accessory muscle usage. Abdominal: Soft Distended cirrhotic abdomen with diffuse tenderness, no guarding, no appreciable organomegaly Ext: ROM intact. No gross muscle atrophy, no edema, no contractures Neuro: Speech clear, face symmetrical and CN II-XII grossly intact with no noted focal neuro deficits Psych: Alert and oriented to person, place, time, and situation. Appropriate and pleasant affect. Assessment and Plan of Care: Decompensated alcohol liver cirrhosis Sepsis, likely SBP Right lower lobe consolidation, Pt asymptomatic of respiratory complaints, RLL consolidation likely atelectasis. Hyponatremia secondary to extensive ascites Prerenal azotemia Bicytopenia secondary to liver cirrhosis -Patient is status post paracentesis, large volume paracentesis with removal of 20.4 L of fluid on 01/09/23 -Ascitic fluid reported to have turbid appearance with 121 WBC count. -Paracentesis fluid culture pending -Status post albumin 25% IVPB 4 bags -Continue Lasix 40 mg daily, hydrocortisone 20 mg daily and 10 mg nightly, and midodrine 10 mg 3 times daily, -Continue GI prophylaxis with Protonix 40 mg twice daily. -Continue IV antibiotics with Zithromax 500 mg daily and Rocephin 2 g daily -Preliminary blood cultures positive for gram-positive cocci in clusters 1 of 2 Cultures. Second culture showing no growth after 24 hours. This is believed to be contaminant, will hold off on adding additional antibiotics at this time. Data reviewed: -Preliminary blood cultures positive for gram-positive cocci in clusters 1 of 2 Cultures. Second culture showing no growth after 48 hours. This is believed to be contaminant, will hold off on adding additional antibiotics at this time. Ascitic fluid reported to have turbid appearance with 121 WBC count. Paracentesis fluid culture showing no growth to date. CBC showing stable normocytic anemia with hemoglobin of 8.7 and normal WBC count 9.71. BMP also showing stable hyponatremia with sodium of 130, renal function remains unremarkable. -Vital signs reviewed. Blood pressure 104/67, heart rate 86, respiratory rate 16, temp 98.1F and SpO2 99% on room air.. Imaging reviewed: No new imaging for review CODE STATUS: Full code DVT prophylaxis: SCDs Discussed with: Patient and RN Anticipated discharge date: clinical course to determine Anticipated discharge place: patient requesting [facility]pc facility Patient was seen independently by Nurse Practitioner. This document was prepared using [employer] dictation software. Please allow for errors in manager concrete while rare they do occur. Objective - Vital Signs Vital signs: Vital Signs Temp 98 F 01/10/23 19:15 Pulse 88 01/10/23 19:15 Resp 17 01/10/23 19:15 BP 105/67 01/10/23 19:15 Pulse Ox 97 01/10/23 19:15 FiO2 Intake & Output 01/10/23 01/11/23 01/11/23 18:59 06:59 18:59 Intake Total 800 Output Total 280 Balance -280 800 Intake: Intake, IV Titration 300 Amount Azithromycin 500 mg In 250 Sodium Chloride 0.9% 250 ml @ 250 mls/hr IVPB DAILY@[address] [facility] Rx#: [id number] cefTRIAXone 2 gm In 50 Sodium Chloride 0.9% 50 ml @ 100 mls/hr IVPB DAILY@[address] [facility] Rx#: [id number] Tube Feeding 500 Output: Urine 280 Other: Voiding Method Urinal # Voids 4 3 - Labs CBC & Chem 7: 01/11/23 05:06 01/11/23 05:06 Labs: Abnormal Lab Results - Last 24 Hours (Table) 01/10/23 01/10/23 Range/Units 09:42 09:42 RBC 3.23 L (4.30-5.90) m/uL Hgb 9.1 L (13.0-17.5) gm/dL Hct 29.0 L (39.0-53.0) % RDW 17.5 H (11.5-15.5) % Plt Count 127 L (150-450) k/uL Sodium 131 L (137-145) mmol/L Carbon Dioxide 17 L (22-30) mmol/L BUN 30 H (9-20) mg/dL Glucose 132 H (74-99) mg/dL Calcium 8.2 L (8.4-10.2) mg/dL Total Protein 5.9 L (6.3-8.2) g/dL Albumin 2.8 L (3.5-5.0) g/dL Microbiology - Last 24 Hours (Table) 01/08/23 22:30 Blood Culture - Preliminary Blood 01/09/23 10:16 Gram Stain - Preliminary Ascites Fluid Body Fluid Culture - Preliminary 01/08/23 22:45 Blood Culture Gram Stain - Preliminary Blood
[2023-01-11] MEDS: HYDROCORTISONE 10 MG TAB PO SCH (22:10)
[2023-01-12] MEDS: MORPHINE SULFATE 4 MG/ML SYRINGE IV PRN (03:22)
[2023-01-12] MEDS: AZITHROMYCIN 500 MG in SODIUM CHLORIDE 0.9% 250 ML IVPB SCH (04:38)
[2023-01-12] MEDS: polyethylene glycoL 3350 17 GM POWD.PACK PO SCH (08:55)
[2023-01-12] MEDS: PANTOPRAZOLE 40 MG TABLET PO SCH ×2 (08:55→16:56)
[2023-01-12] MEDS: MIDODRINE 5 MG TAB PO SCH ×3 (08:55→16:56)
[2023-01-12] MEDS: HYDROCORTISONE 20 MG TAB PO SCH (08:57)
[2023-01-12] MEDS: FUROSEMIDE 40 MG TAB PO SCH (10:33)
--- NOTE | 2023-01-12 15:43 | P.PN ---
Subjective Progress Note Date: 01/12/23 Hospital course: Patient is a very pleasant 43-year-old male with a past medical history of alcohol abuse disorder and alcoholic liver cirrhosis. He is very well-known to our services and mostly recently discharged on 12/26/22. Patient requires recurrent large-volume paracentesis. Patient reports he is unable to follow up outpatient secondary to transportation and continues coming to the emergency department to undergo admission for needed paracentesis. He presented to the emergency department on 01/09/23 secondary to increased abdominal pain and discomfort secondary to need for paracentesis. Patient underwent large volume paracentesis with removal of 20.4 L of fluid on 01/09/23. Physical exam: Patient seen and fully evaluated at bedside this morning. Awaiting final para centesis culture results. Patient remains afebrile. He does report "filling back up with fluid" and does have a soft distended ascitic abdomen. Had long talk with patient regarding importance of outpatient follow-ups and evaluation by inspector machined parts/stamp classifier as he has not made any of his follow-up appointments. Patient was informed that this is not a transplant facility and that he needs evaluation by a inspector machined parts followed by a stamp classifier, patient verbalizing understanding. Vital signs reviewed and stable. General: Chronically ill-appearing, emaciated his extremities with large distended cirrhotic abdomen Derm: Skin warm and dry, jaundiced Head: Atraumatic, normocephalic and symmetric.Scleral icterus Mouth: no lip lesions, mucus membranes moist Cardiovascular: regular rate and rhythm Lungs: Respirations even, regular, and unlabored on room air with no accessory muscle usage. Abdominal: Soft Distended cirrhotic abdomen with diffuse tenderness, no guarding, no appreciable organomegaly Ext: ROM intact. No gross muscle atrophy, no edema, no contractures Neuro: Speech clear, face symmetrical and CN II-XII grossly intact with no noted focal neuro deficits Psych: Alert and oriented to person, place, time, and situation. Appropriate and pleasant affect. Assessment and Plan of Care: Decompensated alcohol liver cirrhosis Sepsis, likely SBP Right lower lobe consolidation, Pt asymptomatic of respiratory complaints, RLL consolidation likely atelectasis. Hyponatremia secondary to extensive ascites Prerenal azotemia Bicytopenia secondary to liver cirrhosis Medical noncompliance, patient does not follow up outpatient with any scheduled/recommended visits. -Patient is status post paracentesis, large volume paracentesis with removal of 20.4 L of fluid on 01/09/23 -Ascitic fluid reported to have turbid appearance with 121 WBC count. -Paracentesis fluid culture pending -Status post albumin 25% IVPB 4 bags -Continue Lasix 40 mg daily, hydrocortisone 20 mg daily and 10 mg nightly, and midodrine 10 mg 3 times daily, -Continue GI prophylaxis with Protonix 40 mg twice daily. -Continue IV antibiotics with Zithromax 500 mg daily and Rocephin 2 g daily -Preliminary blood cultures positive for gram-positive cocci in clusters 1 of 2 Cultures. Second culture showing no growth after 24 hours. This is believed to be contaminant, will hold off on adding additional antibiotics at this time. Data reviewed: -Blood culture positive for gram-positive cocci (coagulase-negative staph) in clusters 1 of 2 Cultures. Second culture showing no growth after 48 hours. This is believed to be contaminant and therefore no further orders place at this time. Ascitic fluid reported to have turbid appearance with 121 WBC count. Paracentesis fluid culture showing no growth to date, but final result is pending. -Vital signs reviewed. Blood pressure soft this morning at 79/41, heart rate 89, respiratory rate 17, temp 98.4F, and SpO2 of 98% on room air. Patient has had no further episodes of fever since isolated elevated temp upon admission. Imaging reviewed: No new imaging for review CODE STATUS: Full code DVT prophylaxis: SCDs Discussed with: Patient and RN Anticipated discharge date: clinical course to determine Anticipated discharge place: Home Patient was seen independently by Nurse Practitioner. This document was prepared using [employer] dictation software. Please allow for errors in merchandise presentation manager while rare they do occur. Objective - Vital Signs Vital signs: Vital Signs Temp 98.4 F 01/12/23 07:05 Pulse 89 01/12/23 07:05 Resp 17 01/12/23 07:05 BP 89/52 01/12/23 07:05 Pulse Ox 97 01/12/23 07:05 FiO2 Intake & Output 01/11/23 01/12/23 01/12/23 18:59 06:59 18:59 Intake Total 800 Balance 800 Intake: Oral 800 Other: Voiding Method Urinal - Labs CBC & Chem 7: 01/11/23 05:06 01/11/23 05:06 Labs: Abnormal Lab Results - Last 24 Hours (Table) 01/11/23 01/11/23 Range/Units 05:06 05:06 RBC 3.11 L (4.40-5.60) X 10*6/uL Hgb 8.7 L (13.0-17.0) d/dL Hct 26.6 L (39.6-50.0) % RDW 17.4 H (11.5-14.5) % Sodium 130 L (135-145) mmol/L Carbon Dioxide 16.1 L (21.6-31.8) mmol/L Anion Gap 12.90 H (4.00-12.00) mmol/L BUN/Creatinine Ratio 26.70 H (12.00-20.00) Ratio Glucose 148 H (70-110) mg/dL Calcium 8.2 L (8.7-10.3) mg/dL Total Protein 5.7 L (6.2-8.2) d/dL Albumin 3.0 L (3.8-4.9) d/dL Albumin/Globulin Ratio 1.11 L (1.60-3.17) Ratio Microbiology - Last 24 Hours (Table) 01/08/23 22:30 Blood Culture - Preliminary Blood 01/09/23 10:16 Anaerobic Culture - Preliminary Ascites Fluid 01/09/23 10:16 Gram Stain - Preliminary Ascites Fluid Body Fluid Culture - Preliminary 01/08/23 22:45 Blood Culture Gram Stain - Final Blood Blood Culture - Final Coagulase Negative Staph
[2023-01-12] MEDS: HYDROcodone/APAP 10-325MG 1 EACH TAB PO PRN (20:53)
[2023-01-12] MEDS: HYDROCORTISONE 10 MG TAB PO SCH (20:54)
[2023-01-13] MEDS: HYDROcodone/APAP 10-325MG 1 EACH TAB PO PRN ×4 (00:51→21:49)
[2023-01-13] MEDS: AZITHROMYCIN 500 MG in SODIUM CHLORIDE 0.9% 250 ML IVPB SCH (04:30)
[2023-01-13] MEDS: PANTOPRAZOLE 40 MG TABLET PO SCH ×2 (06:28→17:39)
[2023-01-13] MEDS: MIDODRINE 5 MG TAB PO SCH ×3 (06:28→17:38)
[2023-01-13 11:04] LABS: HCT 25.7 % (39.6-50.0); HGB 8.1 d/dL (13.0-17.0); MCHC 31.5 d/dL (32.0-37.0); MCV 85.7 FL (80.0-97.0); Mean Platelet Volume 11.1 FL (9.5-12.2); NRBC Per 100 WBC 0 X 10*3/uL (0.00-0.01); Platelet Count 154 X 10*3/uL (140-440); RDW 17.4 % (11.5-14.5); WBC 11.45 X 10*3/uL (4.50-10.00)
[2023-01-13 11:19] LABS: Magnesium 2.2 mg/dL (1.5-2.4)
[2023-01-13] MEDS: FUROSEMIDE 40 MG TAB PO SCH (11:19)
[2023-01-13] MEDS: HYDROCORTISONE 20 MG TAB PO SCH (11:19)
[2023-01-13] MEDS: polyethylene glycoL 3350 17 GM POWD.PACK PO SCH (11:20)
[2023-01-13 11:25] LABS: ALT 22 U/L (10-49); AST 29 U/L (14-35); Albumin 2.9 d/dL (3.8-4.9); Albumin/Globulin Ratio 1.07 Ratio (1.60-3.17); Alkaline Phosphatase 66 U/L (41-126); BUN/Creat Ratio 24.67 Ratio (12.00-20.00); Blood Urea Nitrogen 29.6 mg/dL (9.0-27.0); Calcium 8.4 mg/dL (8.7-10.3); Carbon Dioxide 17.9 mmol/L (21.6-31.8); Chloride 112 mmol/L (96-109); Globulin 2.7 d/dL (1.6-3.3); Glucose 97 mg/dL (70-110); Potassium 4.4 mmol/L (3.5-5.5); Sodium 140 mmol/L (135-145); Total Bilirubin 0.5 mg/dL (0.3-1.2); Total Protein 5.6 d/dL (6.2-8.2)
--- NOTE | 2023-01-13 15:21 | P.PN ---
Subjective Progress Note Date: 01/13/23 Hospital course: Patient is a very pleasant 43-year-old male with a past medical history of alcohol abuse disorder and alcoholic liver cirrhosis. He is very well-known to our services and mostly recently discharged on 12/26/22. Patient requires recurrent large-volume paracentesis. Patient reports he is unable to follow up outpatient secondary to transportation and continues coming to the emergency department to undergo admission for needed paracentesis. He presented to the emergency department on 01/09/23 secondary to increased abdominal pain and discomfort secondary to need for paracentesis. Patient underwent large volume paracentesis with removal of 20.4 L of fluid on 01/09/23. Physical exam: Patient seen and fully evaluated at bedside this morning. Awaiting final para centesis culture results. Patient remains afebrile. He does report "filling back up with fluid" and does have a soft distended ascitic abdomen. Had long talk with patient regarding importance of outpatient follow-ups and evaluation by ski instructor/undercar specialist as he has not made any of his follow-up appointments. Patient was informed that this is not a transplant facility and that he needs evaluation by a ski instructor followed by a undercar specialist, patient verbalizing understanding. Vital signs reviewed and stable. General: Chronically ill-appearing, emaciated his extremities with large distended cirrhotic abdomen Derm: Skin warm and dry, jaundiced Head: Atraumatic, normocephalic and symmetric.Scleral icterus Mouth: no lip lesions, mucus membranes moist Cardiovascular: regular rate and rhythm Lungs: Respirations even, regular, and unlabored on room air with no accessory muscle usage. Abdominal: Soft Distended cirrhotic abdomen with diffuse tenderness, no guarding, no appreciable organomegaly Ext: ROM intact. No gross muscle atrophy, no edema, no contractures Neuro: Speech clear, face symmetrical and CN II-XII grossly intact with no noted focal neuro deficits Psych: Alert and oriented to person, place, time, and situation. Appropriate and pleasant affect. Assessment and Plan of Care: Decompensated alcohol liver cirrhosis Sepsis, likely SBP Right lower lobe consolidation, Pt asymptomatic of respiratory complaints, RLL consolidation likely atelectasis. Hyponatremia secondary to extensive ascites Prerenal azotemia Bicytopenia secondary to liver cirrhosis Medical noncompliance, patient does not follow up outpatient with any scheduled/recommended visits. -Patient is status post paracentesis, large volume paracentesis with removal of 20.4 L of fluid on 01/09/23 -Ascitic fluid reported to have turbid appearance with 121 WBC count. Paracentesis fluid culture showing no growth to date, but final result remains pending and microbiology lab was contacted regarding final results. -Status post albumin 25% IVPB 4 bags -Continue Lasix 40 mg daily, hydrocortisone 20 mg daily and 10 mg nightly, and midodrine 10 mg 3 times daily, -Continue GI prophylaxis with Protonix 40 mg twice daily. -Patient completed azithromycin 3 day course and to Continue IV antibiotics with Rocephin 2 g daily pending final ascites culture results Physical deconditioning and muscle waisting due to chronic disease, decompensated cirrhosis. -Today patient reporting increased weakness and persistent difficulties with ambulation, again requesting placement in a longterm facility. This was discussed with Jesus social media community manager and physical therapy. Patient to be evalua martinez by physical therapy and social work [facility]. Data reviewed: -Blood culture positive for gram-positive cocci (coagulase-negative staph) in clusters 1 of 2 Cultures. Second culture showing no growth after 48 hours. This is believed to be contaminant and therefore no further orders place at this time. -Ascitic fluid reported to have turbid appearance with 121 WBC count. Paracentesis fluid culture showing no growth to date, but final result remains pending and microbiology lab was contacted regarding final results. -CBC showing mild leukocytosis with WBC count of 11.45, hemoglobin stable at 8.1 and platelet count of 154. BMP unremarkable with the exception of hyperchloremia with chloride of 112. -Vital signs reviewed. Blood pressure soft this morning at 97/60, heart rate 75, respiratory rate 16, temp 98.2F, SpO2 of 99% on room air. Patient has had no further episodes of fever since isolated elevated temp upon admission. Imaging reviewed: No new imaging for review CODE STATUS: Full code DVT prophylaxis: SCDs Discussed with: Patient, social media community manager and RN Anticipated discharge date: clinical course to determine Anticipated discharge place: Patient requesting assistance with placement and rehab stating he is unable to care for self resulting from physical deconditioning and muscle wasting resulting from chronic disease Patient was seen independently by Nurse Practitioner. This document was prepared using [employer] dictation software. Please allow for errors in blade sharpener while rare they do occur. Pako Mendoza NP rendered care for this patient independently, reviewed the findings and plan as documented in the note above. I did not physically speak with or examine the patient on this date. Objective - Vital Signs Vital signs: Vital Signs Temp 98.3 F 01/13/23 00:49 Pulse 103 H 01/13/23 03:48 Resp 16 01/13/23 00:49 BP 92/48 01/13/23 03:48 Pulse Ox 97 01/13/23 00:49 FiO2 Intake & Output 01/12/23 01/13/23 01/13/23 18:59 06:59 18:59 Output Total 600 Balance -600 Output: Urine 600 Other: Voiding Method Toilet Urinal # Voids 1 1 1 - Labs CBC & Chem 7: 01/13/23 06:37 01/13/23 06:37 Labs: Microbiology - Last 24 Hours (Table) 01/09/23 10:16 Gram Stain - Preliminary Ascites Fluid Body Fluid Culture - Preliminary 01/08/23 22:30 Blood Culture - Preliminary Blood
[2023-01-13] MEDS: HYDROCORTISONE 10 MG TAB PO SCH (20:28)
[2023-01-14 02:00] VITALS: TEMP 98.2
[2023-01-14] MEDS: HYDROcodone/APAP 10-325MG 1 EACH TAB PO PRN ×2 (04:19→09:47)
[2023-01-14] MEDS: MIDODRINE 5 MG TAB PO SCH ×2 (06:09→11:52)
[2023-01-14] MEDS: PANTOPRAZOLE 40 MG TABLET PO SCH (06:09)
[2023-01-14 07:16] VITALS: RESP 18
[2023-01-14] MEDS: HYDROCORTISONE 10 MG TAB PO SCH (09:46)
[2023-01-14] MEDS: FUROSEMIDE 40 MG TAB PO SCH (09:49)
[2023-01-14] MEDS: polyethylene glycoL 3350 17 GM POWD.PACK PO SCH (09:50)
[2023-01-14] MEDS: HYDROCORTISONE 20 MG TAB PO SCH (09:50)
[2023-01-14] MEDS ORDERED: HYDROmorphone 0.5 MG/0.5 ML SYRINGE IVP STA (11:39)
[2023-01-14 13:20] VITALS: BP 97/58; PULSE 76
--- NOTE | 2023-01-14 13:58 | P.DS ---
Providers Date of admission: 01/09/23 03:23 Expected date of discharge: 01/14/23 Attending physician: Alena Apple MD Primary care physician: LINDSAY [facility] Hospital Course: Discharge Diagnosis: Decompensated alcohol liver cirrhosis Sepsis, SBP ruled out . Patient received 4 day course of azithromycin and 5 day course of Rocephin 2 g daily. Repeat Blood culture and Ascitic cultures negative Patient free from any other complaints at this time. Right lower lobe consolidation, Pt asymptomatic of respiratory complaints, RLL consolidation likely atelectasis. patient did receive a 4 day course of azithromycin on 5 day course of Rocephin 2 g daily. Hyponatremia secondary to extensive ascites. Resolved status post large volume paracentesis. Prerenal azotemia Bicytopenia secondary to liver cirrhosis Medical noncompliance, patient does not follow up outpatient with any scheduled/recommended visits. Physical deconditioning and muscle waisting due to chronic disease, deco mpensated cirrhosis. Hospital Course: Patient is a very pleasant 43-year-old male with a past medical history of alcohol abuse disorder and alcoholic liver cirrhosis. He is very well-known to our services and mostly recently discharged on 12/26/22. Patient requires recurrent large-volume paracentesis. Patient reports he is unable to follow up outpatient secondary to transportation and continues coming to the emergency department to undergo admission for needed paracentesis. He presented to the emergency department on 01/09/23 secondary to increased abdominal pain and discomfort secondary to need for paracentesis. Patient underwent large volume paracentesis with removal of 20.4 L of fluid on 01/09/23. He then received albumin 25% IVPB 4 bags. Patient requesting evaluation by physical therapy secondary to physical deconditioning and muscle wasting resulting from his chronic disease. This was discussed with clinical social worker and with physical therapy. Patient underwent evaluation by physical therapy, he does not meet requirements for [facility] facility placement as he is found to be independent. Medically, patient is stable for discharge at this time. Patient was again strongly encouraged to follow up outpatient with internet researcher/movie shot cameraman for further evaluation patient requested refill on his narcotic prescription for [place], patient informed that he will be provided with a 3 day prescription otherwise will need to follow up with his PCP and/or internet researcher as discussed because this is chronic pain medication. Physical exam: Vital signs reviewed and stable. General: Chronically ill-appearing, emaciated his extremities with large distended cirrhotic abdomen Derm: Skin warm and dry, jaundiced Head: Atraumatic, normocephalic and symmetric.Scleral icterus Mouth: no lip lesions, mucus membranes moist Cardiovascular: regular rate and rhythm Lungs: Respirations even, regular, and unlabored on room air with no accessory muscle usage. Abdominal: Soft Distended cirrhotic abdomen with diffuse tenderness, no guarding, no appreciable organomegaly Ext: ROM intact. No gross muscle atrophy, no edema, no contractures Neuro: Speech clear, face symmetrical and CN II-XII grossly intact with no noted focal neuro deficits Psych: Alert and oriented to person, place, time, and situation. Appropriate and pleasant affect. A total of 33 minutes of time were spent preparing this complex discharge summary. Pt was discharged on 01/14/23 at 1:39 PM. Patient was seen independently by Nurse Practitioner. This document was prepared using [employer] dictation software. Please allow for errors in planning director while rare they do occur. Pako Mendoza NP rendered care for this patient independently, reviewed the findings and plan as documented in the note above. I did not physically speak with or examine the patient on this date. Patient Condition at Discharge: Stable Plan - Discharge Summary Discharge Rx Participant: Yes New Discharge Prescriptions: New Spironolactone [Aldactone] 25 mg PO BID 30 Days #60 tablet HYDROcodone/APAP 5-325MG [[place] 5-325] 1 - 2 tab PO Q4HR PRN #18 tab PRN Reason: Pain Continue Pantoprazole [Protonix] 40 mg PO AC-BID #60 tab Furosemide [Lasix] 40 mg PO DAILY #30 tablet Ondansetron Odt [Zofran ODT] 4 mg PO Q8HR PRN #30 tab PRN Reason: Nausea And Vomiting Hydrocortisone [Cortef] 10 mg PO HS #30 tab Hydrocortisone [Cortef] 20 mg PO DAILY #30 tab Midodrine [ProAmatine] 10 mg PO AC-TID #90 tab Discontinued HYDROcodone/APAP 10-325MG [[place] 10-325] 1 tab PO Q4HR PRN #10 tab PRN Reason: Pain Discharge Medication List Pantoprazole [Protonix] 40 mg PO AC-BID #60 tab 11/29/22 [Rx] Furosemide [Lasix] 40 mg PO DAILY #30 tablet 08/06/23 [Rx] Ondansetron Odt [Zofran ODT] 4 mg PO Q8HR PRN #30 tab 11/30/22 [Rx] Hydrocortisone [Cortef] 10 mg PO HS #30 tab 12/13/22 [Rx] Hydrocortisone [Cortef] 20 mg PO DAILY #30 tab 12/13/22 [Rx] Midodrine [ProAmatine] 10 mg PO AC-TID #90 tab 12/26/22 [Rx] HYDROcodone/APAP 5-325MG [[place] 5-325] 1 - 2 tab PO Q4HR PRN #18 tab 01/14/23 [Rx] Spironolactone [Aldactone] 25 mg PO BID 30 Days #60 tablet 01/14/23 [Rx] Follow up Appointment(s)/Referral(s): Gina Negron MD [STAFF PHYSICIAN] - 1 Week (office will not schedule due to chronic no shows) Marcin Pond PAC [Primary Care Provider] - 1-2 days (Please call to schedule appointment) Patient Instructions/Handouts: Ascites (DC) Activity/Diet/Wound Care/Special Instructions: Activity: As tolerated. Diet: Heart healthy and carb consistent diet. Avoid salts, or foods with hidden salts such as canned or boxed foods and frozen dinners. Extra salt makes your heart work harder and traps the fluid in your body for longer. Special Instructions: Take all of your medications as directed and remember to keep all of your doctor's appointments and follow-up as needed. As we discussed, it is of utmost importance for you to follow up with your internet researcher. Thank you for allowing us to participate in your care, it was truly a pleasure having you for our patient!!! Discharge Disposition: HOME SELF-CARE
== END 2023-01-14 17:46 | disposition home or self-care (01) | DRG 433 ==
LOC: EC 23:05 → 4SSUR 01-09 03:23
PROVIDERS: ADMIT Internal Medicine; ATTEND Internal Medicine
PROC: 0W9G3ZZ Drainage of Peritoneal Cavity, Percutaneous Approach (ICD-10-PCS; principal; 2023-01-09)
DX: K70.31 Alcoholic cirrhosis of liver with ascites (principal); E87.1 Hypo-osmolality and hyponatremia; J98.11 Atelectasis; Z28.310 Unvaccinated for COVID-19; Z28.21 Immunization not carried out because of patient refusal; Z20.822 Contact with and (suspected) exposure to COVID-19; F10.20 Alcohol dependence, uncomplicated; F43.10 Post-traumatic stress disorder, unspecified; E78.5 Hyperlipidemia, unspecified; Z87.01 Personal history of pneumonia (recurrent); F32.A Depression, unspecified; I10 Essential (primary) hypertension; K72.10 Chronic hepatic failure without coma; Z79.899 Other long term (current) drug therapy; Z91.199 Patient's noncompliance with other medical treatment and regimen due to unspecified reason; M62.50 Muscle wasting and atrophy, not elsewhere classified, unspecified site; R39.2 Extrarenal uremia; Z88.6 Allergy status to analgesic agent; D64.9 Anemia, unspecified; D69.6 Thrombocytopenia, unspecified
CPT/HCPCS: 36415; 49083; 71045; 80053; 81003; 82945; 83605; 83735; 84157; 85025; 85027; 85610; 85730; 87040; 87070; 87075; 87205; 87636; 89050; 93005; 96361; 96365; 96367; 96375; 99285

== ENCOUNTER 2023-01-29 08:32 | Day surgery (SDC) | payer OTHER ==
[2023-01-29 09:20] LABS: INR 1.3 (<1.2); Prothrombin Time 13.5 sec (9.0-12.0)
[2023-01-29 09:30] VITALS: RESP 16; TEMP 98
[2023-01-29 09:30] LABS: Mean Platelet Volume 8.5; Platelet Count 124 k/uL (150-450)
[2023-01-29 09:40] LABS: African American GFR (CKD) >90 (>60 ml/min/1.73 sqM); Non-African American GFR(CKD) >90 (>60 ml/min/1.73 sqM)
[2023-01-29] MEDS: ALBUMIN HUMAN 25% 50 ML in EMPTY BAG 1 BAG IVPB SCH ×4 (09:41→10:39)
[2023-01-29 11:44] VITALS: BP 101/65; PULSE 70
--- NOTE | 2023-01-29 12:34 | US ---
Ultrasound-guided paracentesis. DATE OF EXAM: 01/29/2023 CLINICAL HISTORY: Ascites The procedure was discussed with the patient. The risks, complications, benefits, and alternatives we re discussed and any questions were answered. Informed consent was obtained. The patient was placed s upine on the ultrasound table and prepped and draped in the usual sterile fashion. All elements of maximal barrier technique were utilized. Under ultrasound guidance, access into the right lower quadrant was obtained, via the paracentesis catheter system and direct ultrasound guidanc e. Approximately 11.6 liters of straw-colored fluid was removed. The patient was stable throughout the p rocedure and remained stable upon discharge from Department of Radiology. IMPRESSION: Successful paracentesis under ultrasound guidance.
== END 2023-01-29 11:25 | disposition home or self-care (01) ==
LOC: RADPROMAIN 08:32
PROVIDERS: ATTEND Family Medicine
DX: R18.8 Other ascites (principal)
CPT/HCPCS: 82565; 85049; 85610; 36415; 49083; P9047

== ENCOUNTER 2023-02-12 09:07 | Day surgery (SDC) | payer OTHER ==
[2023-02-12 09:39] LABS: Mean Platelet Volume 8.9; Platelet Count 110 k/uL (150-450)
[2023-02-12] MEDS: ALBUMIN HUMAN 25% 50 ML in EMPTY BAG 1 BAG IVPB SCH ×4 (09:48→11:22)
[2023-02-12 09:55] VITALS: TEMP 97.9
[2023-02-12 09:57] LABS: African American GFR (CKD) 87 (>60 ml/min/1.73 sqM); Non-African American GFR(CKD) 75 (>60 ml/min/1.73 sqM)
[2023-02-12 10:14] LABS: INR 1.3 (<1.2); Prothrombin Time 13.8 sec (10.0-12.5)
[2023-02-12 11:38] VITALS: RESP 18
[2023-02-12 12:21] VITALS: BP 98/64; PULSE 77
--- NOTE | 2023-02-13 08:47 | US ---
Ultrasound-guided paracentesis. DATE OF EXAM: 02/12/2023 CLINICAL HISTORY: Ascites The procedure was discussed with the patient. The risks, complications, benefits, and alternatives we re discussed and any questions were answered. Informed consent was obtained. The patient was placed s upine on the ultrasound table and prepped and draped in the usual sterile fashion. All elements of maximal barrier technique were utilized. Under ultrasound guidance, access into the right lower quadrant was obtained, via the paracentesis catheter system and direct ultrasound guidanc e. Approximately 12 liters of straw-colored fluid was removed. The patient was stable throughout the pro cedure and remained stable upon discharge from Department of Radiology. IMPRESSION: Successful paracentesis under ultrasound guidance.
== END 2023-02-12 12:10 | disposition home or self-care (01) ==
LOC: RADPROMAIN 09:07
PROVIDERS: ATTEND Family Medicine
DX: R18.8 Other ascites (principal)
CPT/HCPCS: 82565; 85049; 85610; 36415; 49083; P9047

== ENCOUNTER 2023-02-27 12:24 | Inpatient (IN) | payer OTHER ==
[2023-02-27] MEDS ORDERED: MORPHINE SULFATE 4 MG/ML SYRINGE IVP STA (13:22)
[2023-02-27] MEDS ORDERED: SODIUM CHLORIDE 0.9% 1,000 ML IV STA (13:22)
--- NOTE | 2023-02-27 13:23 | ED ---
Abdominal Pain HPI - General Chief Complaint: Abdominal Pain Stated Complaint: body pains Time Seen by Provider: 02/27/23 12:40 Source: patient, RN notes reviewed, old records reviewed Mode of arrival: ambulatory Limitations: no limitations - History of Present Illness Initial Comments: This is a 43-year-old male to the emergency department for evaluation. Patient Dese for evaluation of abdominal pain severe abdominal pain and she's been unable to get paracentesis on outpatient basis. Patient presents today for evaluation of this abdominal pain and need for therapeutic paracentesis MD Complaint: abdominal pain -: days(s) Location: diffuse, epigastric, suprapubic Radiation: epigastric, suprapubic Migration to: no migration Severity scale (1-10): 10 Quality: fullness, dull Consistency: constant Improves With: nothing Associated Symptoms: nausea, vomiting Treatments Prior to Arrival: other (0) - Related Data Previous Rx's Medication Instructions Recorded Pantoprazole [Protonix] 40 mg PO AC-BID #60 tab 11/29/22 Midodrine [ProAmatine] 10 mg PO AC-TID #90 tab 12/26/22 Furosemide [Lasix] 40 mg PO DAILY #30 tablet 03/02/23 Spironolactone 25 mg PO DAILY #30 tablet 03/02/23 Allergies Allergy/AdvReac Type Severity Reaction Status Date / Time ibuprofen [From Motrin] Allergy Swelling Verified 02/27/23 13:48 Lips naproxen Allergy Swelling Verified 02/27/23 13:48 Lips Review of Systems ROS Statement: Those systems with pertinent positive or pertinent negative responses have been documented in the HPI. ROS Other: All systems not noted in ROS Statement are negative. Past Medical History Past Medical History: Hyperlipidemia, Hypertension, Liver Disease, Pneumonia Additional Past Medical History / Comment(s): Alcoholism, past withdrawals with tremors/diaphoresis, elevated LFTs, alcoholic liver cirrhosis, ascities with paracentesis, severe sepsis/aspiration pneumonia, occasional upper back pain. History of Any Multi-Drug Resistant Organisms: None Reported Past Surgical History: No Surgical Hx Reported Additional Past Surgical History / Comment(s): Pt states he has never had surgery Past Anesthesia/Blood Transfusion Reactions: Unable to Obtain Additional Past Anesthesia/Blood Transfusion Reaction / Comment(s): Pt states he has never had surgery. Past Psychological History: Depression, PTSD Smoking Status: Current every day smoker Past Alcohol Use History: None Reported, Abuse Past Drug Use History: None Reported - Past Family History Mother Family Medical History: Cancer Additional Family Medical History / Comment(s): Mother has colon cancer. Father History Unknown: Yes Additional Family Medical History / Comment(s): All pt knows about his father is that he is . General Exam Limitations: no limitations General appearance: alert, in no apparent distress Head exam: Present: atraumatic, normocephalic, normal inspection Eye exam: Present: normal appearance, PERRL, EOMI. Absent: scleral icterus, conjunctival injection, periorbital swelling ENT exam: Present: normal exam, mucous membranes moist Neck exam: Present: normal inspection. Absent: tenderness, meningismus, lymphad enopathy Respiratory exam: Present: normal lung sounds bilaterally. Absent: respiratory distress, wheezes, rales, rhonchi, stridor Cardiovascular Exam: Present: regular rate, normal rhythm, normal heart sounds. Absent: systolic murmur, diastolic murmur, rubs, gallop, clicks GI/Abdominal exam: Present: soft, normal bowel sounds. Absent: distended, tenderness, guarding, rebound, rigid Extremities exam: Present: normal inspection, full ROM, normal capillary refill. Absent: tenderness, pedal edema, joint swelling, calf tenderness Back exam: Present: normal inspection Neurological exam: Present: alert, oriented X3, CN II-XII intact Psychiatric exam: Present: normal affect, normal mood Skin exam: Present: warm, dry, intact, normal color. Absent: rash Course Vital Signs 02/27/23 02/27/23 02/27/23 12:30 12:49 13:47 Temperature 98.7 F Pulse Rate 75 72 69 Respiratory 18 18 18 Rate Blood Pressure 105/73 110/55 107/67 O2 Sat by Pulse 100 100 100 Oximetry 02/27/23 02/27/23 02/27/23 15:22 18:03 18:33 Temperature Pulse Rate 76 76 77 Respiratory 18 18 18 Rate Blood Pressure 111/67 96/86 110/67 O2 Sat by Pulse 96 100 98 Oximetry 02/27/23 21:36 Temperature 98 F Pulse Rate 76 Respiratory 18 Rate Blood Pressure 98/61 O2 Sat by Pulse 99 Oximetry - Reevaluation(s) Reevaluation #1: 02/27/23 15:22 Medical records reviewed Reevaluation #2: 02/27/23 15:22 Patient's pain is controlled Reevaluation #3: 02/27/23 15:22 Patient informed of results questions answered Reevaluation #4: 02/27/23 15:09 Was pt. sent in by a medical professional or institution ([facility], [facility], urgent care, hospital, or [facility]...) When possible be specific @ -no Did you speak to anyone other than the patient for history (EMS, parent, family, police, friend...)? What history was obtained from this source @ -no Did you review nursing and triage notes (agree or disagree)? Why? @ -agree Are old charts reviewed (outside hosp., previous admission, EMS record, old EKG, old radiological studies, urgent care reports/EKG's, [facility] records)? Report findings @ -yes Differential Diagnosis (chest pain, altered mental status, abdominal pain women, abdominal pain men, vaginal bleeding, weakness, fever, dyspnea, syncope, headache, dizziness, GI bleed, back pain, seizure, CVA, palpatations, mental health, musculoskeletal)? @ -prior EKG interpreted by me (3pts min.). @ -no X-rays interpreted by me (1pt min.). @ -no CT interpreted by me (1pt min.). @ -no U/S interpreted by me (1pt. min.). @ -no What testing was considered but not performed or refused? (CT, X-rays, U/S, labs)? Why? @ -none What meds were considered but not given or refused? Why? @ -none Did you discuss the management of the patient with other professionals (professionals i.e. [facility], [facility] [facility], lab, RT, psych nurse, community mental health social worker, levee superintendent, teacher, intelligence support officer, case fitter)? Give summary @ -no Was smoking cessation discussed for >3mins.? @ -no Was critical care preformed (if so, how long)? @ -no Were there social determinants of health that impacted care today? How? (Homelessness, low income, unemployed, alcoholism, drug addiction, transportation, low edu. Level, literacy, decrease access to med. care, skilled nursing, rehab)? @ -none Was there de-escalation of care discussed even if they declined (Discuss DNR or withdrawal of care, Hospice)? DNR status @ -no What co-morbidities impacted this encounter? (DM, HTN, Smoking, COPD, CAD, Cancer, CVA, ARF, Chemo, Hep., AIDS, mental health diagnosis, sleep apnea, morbid obesity)? @ -none Was patient admitted / discharged? Hospital course, mention meds given and route, prescriptions, significant lab abnormalities, going to OR and other pertinent info. @ - 43 male to the emergency department for evaluation patient will be observed for therapeutic paracentesis Discharge Undiagnosed new problem with uncertain prognosis? @ -no Drug Therapy requiring intensive monitoring for toxicity (Heparin, Nitro, Insulin, Cardizem)? @ -no Were any procedures done? @ -no Diagnosis/symptom? @ -Significant ascites and abdominal pain Acute, or Chronic, or Acute on Chronic? @ -Acute Uncomplicated (without systemic symptoms) or Complicated (systemic symptoms)? @ -Complicated Side effects of treatment? @ -no Exacerbation, Progression, or Severe Exacerbation? @ -exacerbation Poses a threat to life or bodily function? How? (Chest pain, USA, DC, pneumonia, PE, COPD, DKA, ARF, appy, cholecystitis, CVA, Diverticulitis, Homicidal, Suicid al, threat to staff... and all critical care pts) @ -no Reevaluation #5: 02/27/23 15:23 Differential Abdominal Pain Men: Appendicitis, cholecystitis, diverticulosis, ischemic bowel, pancreatitis, hepatitis, UTI, gastroenteritis, AAA, incarcerated hernia, bowel obstruction, constipation, inflammatory bowel, hepatitis, peptic ulcer disease, splenic infa rction, perforated viscus, testicular torsion, this is not meant to be an all- inclusive list - Consultations Consultation #1: Focused sound who agrees to admit this patient Medical Decision Making - Medical Decision Making 43 male to the emergency department for evaluation patient will be observed for therapeutic paracentesis - Lab Data Result diagrams: 03/02/23 05:21 03/02/23 05:21 Lab Results 02/27/23 02/27/23 02/27/23 Range/Units 13:37 13:37 13:37 WBC 5.7 (3.8-10.6) k/uL RBC 3.48 L (4.30-5.90) m/uL Hgb 10.0 L (13.0-17.5) gm/dL Hct 30.6 L (39.0-53.0) % MCV 87.8 (80.0-100.0) fL MCH 28.8 (25.0-35.0) pg MCHC 32.8 (31.0-37.0) g/dL RDW 20.3 H (11.5-15.5) % Plt Count 127 L (150-450) k/uL MPV 8.8 Neutrophils % 65 % Lymphocytes % 25 % Monocytes % 7 % Eosinophils % 2 % Basophils % 1 % Neutrophils # 3.7 (1.3-7.7) k/uL Lymphocytes # 1.4 (1.0-4.8) k/uL Monocytes # 0.4 (0-1.0) k/uL Eosinophils # 0.1 (0-0.7) k/uL Basophils # 0.0 (0-0.2) k/uL Anisocytosis Moderate PT 13.7 H (10.0-12.5) sec INR 1.3 H (<1.2) APTT 28.3 (22.0-30.0) sec Sodium 134 L (137-145) mmol/L Potassium 4.3 (3.5-5.1) mmol/L Chloride 107 (98-107) mmol/L Carbon Dioxide 15 L (22-30) mmol/L Anion Gap 12 mmol/L BUN 43 H (9-20) mg/dL Creatinine 1.89 H (0.66-1.25) mg/dL Est GFR (CKD-EPI)AfAm 49 (>60 ml/min/1.73 sqM) Est GFR (CKD-EPI)NonAf 43 (>60 ml/min/1.73 sqM) Glucose 115 H (74-99) mg/dL Lactic Ac Sepsis Rflx Plasma Lactic Acid Willam (0.7-2.0) mmol/L Calcium 8.6 (8.4-10.2) mg/dL Total Bilirubin 2.3 H (0.2-1.3) mg/dL AST 37 (17-59) U/L ALT 20 (4-49) U/L Alkaline Phosphatase 88 (38-126) U/L Ammonia (<30) umol/L Total Protein 6.7 (6.3-8.2) g/dL Albumin 3.2 L (3.5-5.0) g/dL Amylase 40 (30-110) U/L Lipase 117 (23-300) U/L Serum Alcohol <10 mg/dL 02/27/23 02/27/23 Range/Units 13:37 14:01 WBC (3.8-10.6) k/uL RBC (4.30-5.90) m/uL Hgb (13.0-17.5) gm/dL Hct (39.0-53.0) % MCV (80.0-100.0) fL MCH (25.0-35.0) pg MCHC (31.0-37.0) g/dL RDW (11.5-15.5) % Plt Count (150-450) k/uL MPV Neutrophils % % Lymphocytes % % Monocytes % % Eosinophils % % Basophils % % Neutrophils # (1.3-7.7) k/uL Lymphocytes # (1.0-4.8) k/uL Monocytes # (0-1.0) k/uL Eosinophils # (0-0.7) k/uL Basophils # (0-0.2) k/uL Anisocytosis PT (10.0-12.5) sec INR (<1.2) APTT (22.0-30.0) sec Sodium (137-145) mmol/L Potassium (3.5-5.1) mmol/L Chloride (98-107) mmol/L Carbon Dioxide (22-30) mmol/L Anion Gap mmol/L BUN (9-20) mg/dL Creatinine (0.66-1.25) mg/dL Est GFR (CKD-EPI)AfAm (>60 ml/min/1.73 sqM) Est GFR (CKD-EPI)NonAf (>60 ml/min/1.73 sqM) Glucose (74-99) mg/dL Lactic Ac Sepsis Rflx Y Plasma Lactic Acid Willam 3.7 H* (0.7-2.0) mmol/L Calcium (8.4-10.2) mg/dL Total Bilirubin (0.2-1.3) mg/dL AST (17-59) U/L ALT (4-49) U/L Alkaline Phosphatase (38-126) U/L Ammonia 72 H (<30) umol/L Total Protein (6.3-8.2) g/dL Albumin (3.5-5.0) g/dL Amylase (30-110) U/L Lipase (23-300) U/L Serum Alcohol mg/dL Disposition Clinical Impression: Alcoholic liver disease, Abdominal pain, Alcoholic cirrhosis of liver with ascites, Ascites Disposition: ADMITTED IP TO THIS HOSP Condition: Stable Is patient prescribed a controlled substance at d/c from ED?: No Time of Disposition: 15:20
[2023-02-27 13:45] LABS: Anisocytosis Moderate; Basophils % (A) 1 %; Eosinophils # (A) 0.1 k/uL (0-0.7); Eosinophils % (A) 2 %; HCT 30.6 % (39.0-53.0); Lymphocytes # (A) 1.4 k/uL (1.0-4.8); Lymphocytes % (A) 25 %; MCH 28.8 pg (25.0-35.0); MCHC 32.8 g/dL (31.0-37.0); MCV 87.8 fL (80.0-100.0); Mean Platelet Volume 8.8; Monocytes # (A) 0.4 k/uL (0-1.0); Monocytes % (A) 7 %; Neutrophils # (A) 3.7 k/uL (1.3-7.7); Neutrophils % (A) 65 %; Platelet Count 127 k/uL (150-450); RBC 3.48 m/uL (4.30-5.90); RDW 20.3 % (11.5-15.5); WBC 5.7 k/uL (3.8-10.6)
[2023-02-27 13:53] LABS: Potassium 4.3 mmol/L (3.5-5.1)
[2023-02-27 13:55] LABS: ALT 20 U/L (4-49); AST 37 U/L (17-59); African American GFR (CKD) 49 (>60 ml/min/1.73 sqM); Albumin 3.2 g/dL (3.5-5.0); Alcohol <10 mg/dL; Alkaline Phosphatase 88 U/L (38-126); Amylase 40 U/L (30-110); Anion Gap 12 mmol/L; Blood Urea Nitrogen 43 mg/dL (9-20); Calcium 8.6 mg/dL (8.4-10.2); Carbon Dioxide 15 mmol/L (22-30); Chloride 107 mmol/L (98-107); Glucose 115 mg/dL (74-99); Lipase 117 U/L (23-300); Non-African American GFR(CKD) 43 (>60 ml/min/1.73 sqM); Sodium 134 mmol/L (137-145); Total Bilirubin 2.3 mg/dL (0.2-1.3); Total Protein 6.7 g/dL (6.3-8.2)
[2023-02-27 13:56] LABS: INR 1.3 (<1.2); Partial Thromboplastin Time 28.3 sec (22.0-30.0); Prothrombin Time 13.7 sec (10.0-12.5)
[2023-02-27 13:58] LABS: Lactic Acid, Venous 3.7 mmol/L (0.7-2.0)
[2023-02-27] MEDS ORDERED: NALOXONE 0.4 MG/ML 1 ML VIAL IV PRN (15:06)
[2023-02-27] MEDS ORDERED: ONDANSETRON 4 MG/2 ML VIAL IVP PRN (15:06)
--- NOTE | 2023-02-27 17:39 | P.HPIM ---
History of Present Illness H&P Date: 02/27/23 Chief Complaint: abd pain 43 year old man with history of ETOH dependence and decompensated cirrhosis presented fore evaluation of abdominal pain. Pt reports that he usually gets once weekly paracentesis for recurrent ascites, but due to recent [place] insurance issues, has been unable to get his last session. Pt reports that the fluid build up is causing a significant amoutn of abd pain which prompted his evaluation, and is further causing loss of appetite. He denies f/c, n/v/c/d, cp/palps, syncope/presyncope, numbness or extremities. In the emergency room, patient was afebrile, 105/73, heart rate 75, 100% on room air. CBC is remarkable for anemia to 10, thrombocytopenia to 127. Basic metabolic panel shows sodium of 134, CO2 of 15, BUN of 43, creatinine of 1.89. Liver function tests remarkable for bilirubin of 2.3, albumin of 3.2. Lactic acid was 3.7 and trended to 1.3. Coag show an INR of 1.3. Lipase was 117. Ammonia level was 72. EtOH level is less than 10. All Systems reviewed and pertinent positives and negatives noted in HPI, all other symptoms are negative Gen: in no apparent distress, resting comfortably in bed Eyes: PERRL, no scleral injection or icterus HENT: normocephalic, atraumatic, good hearing acuity, moist mucous membranes Neck: no tracheal deviation, full range of motion Resp: good air exchange, breathing comfortably with no accessory muscle use, no tactile fremitus CVS: good distal perfusion x 4, no pitting edema GI: soft, NTTP, ND, no hepatosplenomegaly, significant ascites present : no suprapubic tenderness, no CVAT, gonzalez catheter not present MSK: no clubbing, no cyanosis, no noted contractures of extremities Skin: no noted rashes, petechiae; temperature of skin is appropriate Neuro: moving all extremities without signs of weakness, CN II-XII intact Psych: cooperative, euthymic mood, insight and judgment intact Assessment/plan: Decompensated liver cirrhosis secondary to EtOH abuse Bicytopenia - anemia and thrombo-cytopenia Acute kidney injury -Patient should be admitted to observation -Hold patient's home diuretics -Started on normal saline at 75 mL/h -Repeat basic metabolic panel, liver function tests, magnesium tomorrow -Interventional radiology consult for paracentesis, we will send fluid for cell count, LDH, protein Patient is full code Past Medical History Past Medical History: Hyperlipidemia, Hypertension, Liver Disease, Pneumonia Additional Past Medical History / Comment(s): Alcoholism, past withdrawals with tremors/diaphoresis, elevated LFTs, alcoholic liver cirrhosis, ascities with paracentesis, severe sepsis/aspiration pneumonia, occasional upper back pain. History of Any Multi-Drug Resistant Organisms: None Reported Past Surgical History: No Surgical Hx Reported Additional Past Surgical History / Comment(s): Pt states he has never had devine rgery Past Anesthesia/Blood Transfusion Reactions: Unable to Obtain Additional Past Anesthesia/Blood Transfusion Reaction / Comment(s): Pt states he has never had surgery. Past Psychological History: Depression, PTSD Smoking Status: Current every day smoker Past Alcohol Use History: None Reported, Abuse Past Drug Use History: None Reported - Past Family History Mother Family Medical History: Cancer Additional Family Medical History / Comment(s): Mother has colon cancer. Father History Unknown: Yes Additional Family Medical History / Comment(s): All pt knows about his father is that he is . Medications and Allergies Home Medications Medication Instructions Recorded Confirmed Type Pantoprazole [Protonix] 40 mg PO AC-BID #60 tab 11/29/22 02/27/23 Rx Furosemide [Lasix] 40 mg PO DAILY #30 tablet 11/30/22 02/27/23 Rx Midodrine [ProAmatine] 10 mg PO AC-TID #90 tab 12/26/22 02/27/23 Rx Spironolactone [Aldactone] 25 mg PO BID 30 Days #60 tablet 01/14/23 02/27/23 Rx Allergies Allergy/AdvReac Type Severity Reaction Status Date / Time ibuprofen [From Motrin] Allergy Swelling Verified 02/27/23 13:48 Lips naproxen Allergy Swelling Verified 02/27/23 13:48 Lips Physical Exam Osteopathic Statement: *. No significant issues noted on an osteopathic struc tural exam other than those noted in the History and Physical/Consult. Vitals: Vital Signs Temp Pulse Resp BP Pulse Ox 02/27/23 15:22 76 18 111/67 96 02/27/23 13:47 69 18 107/67 100 02/27/23 12:49 72 18 110/55 100 02/27/23 12:30 98.7 F 75 18 105/73 100 Intake and Output 02/27/23 02/27/23 02/27/23 06:59 14:59 22:59 Other: Weight 72.121 kg Results CBC & Chem 7: 02/27/23 13:37 02/27/23 13:37 Labs: Abnormal Lab Results - Last 24 Hours (Table) 02/27/23 02/27/23 02/27/23 Range/Units 13:37 13:37 13:37 RBC 3.48 L (4.30-5.90) m/uL Hgb 10.0 L (13.0-17.5) gm/dL Hct 30.6 L (39.0-53.0) % RDW 20.3 H (11.5-15.5) % Plt Count 127 L (150-450) k/uL PT 13.7 H (10.0-12.5) sec INR 1.3 H (<1.2) Sodium 134 L (137-145) mmol/L Carbon Dioxide 15 L (22-30) mmol/L BUN 43 H (9-20) mg/dL Creatinine 1.89 H (0.66-1.25) mg/dL Glucose 115 H (74-99) mg/dL Plasma Lactic Acid Willam (0.7-2.0) mmol/L Total Bilirubin 2.3 H (0.2-1.3) mg/dL Ammonia (<30) umol/L Albumin 3.2 L (3.5-5.0) g/dL 02/27/23 Range/Units 13:37 RBC (4.30-5.90) m/uL Hgb (13.0-17.5) gm/dL Hct (39.0-53.0) % RDW (11.5-15.5) % Plt Count (150-450) k/uL PT (10.0-12.5) sec INR (<1.2) Sodium (137-145) mmol/L Carbon Dioxide (22-30) mmol/L BUN (9-20) mg/dL Creatinine (0.66-1.25) mg/dL Glucose (74-99) mg/dL Plasma Lactic Acid Willam 3.7 H* (0.7-2.0) mmol/L Total Bilirubin (0.2-1.3) mg/dL Ammonia 72 H (<30) umol/L Albumin (3.5-5.0) g/dL
[2023-02-27] MEDS: MORPHINE SULFATE 4 MG/ML SYRINGE IV PRN (18:35)
[2023-02-28] MEDS: MORPHINE SULFATE 4 MG/ML SYRINGE IV PRN ×4 (00:28→19:34)
[2023-02-28] MEDS: MIDODRINE 5 MG TAB PO SCH ×3 (06:26→17:20)
[2023-02-28] MEDS: PANTOPRAZOLE 40 MG TABLET PO SCH ×2 (06:26→17:20)
[2023-02-28 08:28] LABS: ALT 17 U/L (4-49); AST 36 U/L (17-59); African American GFR (CKD) 69 (>60 ml/min/1.73 sqM); Albumin 2.6 g/dL (3.5-5.0); Albumin/Globulin Ratio 0.8; Alkaline Phosphatase 74 U/L (38-126); Anion Gap 7 mmol/L; Blood Urea Nitrogen 39 mg/dL (9-20); Calcium 8.4 mg/dL (8.4-10.2); Carbon Dioxide 17 mmol/L (22-30); Chloride 111 mmol/L (98-107); Globulin 3.3 g/dL; Glucose 95 mg/dL (74-99); Non-African American GFR(CKD) 59 (>60 ml/min/1.73 sqM); Phosphorus 4.6 mg/dL (2.5-4.5); Potassium 4.3 mmol/L (3.5-5.1); Sodium 135 mmol/L (137-145); Total Bilirubin 1.4 mg/dL (0.2-1.3); Total Protein 5.9 g/dL (6.3-8.2)
[2023-02-28 09:04] LABS: Anisocytosis Moderate; Basophils % (A) 0 %; Eosinophils # (A) 0.4 k/uL (0-0.7); Eosinophils % (A) 8 %; HCT 30.4 % (39.0-53.0); HGB 9.8 gm/dL (13.0-17.5); Lymphocytes # (A) 1.4 k/uL (1.0-4.8); Lymphocytes % (A) 29 %; MCH 28.6 pg (25.0-35.0); MCHC 32.2 g/dL (31.0-37.0); MCV 88.7 fL (80.0-100.0); Mean Platelet Volume 10.2; Monocytes # (A) 0.5 k/uL (0-1.0); Monocytes % (A) 10 %; Neutrophils # (A) 2.4 k/uL (1.3-7.7); Neutrophils % (A) 51 %; RBC 3.43 m/uL (4.30-5.90); RDW 20.2 % (11.5-15.5); WBC 4.8 k/uL (3.8-10.6)
--- NOTE | 2023-02-28 11:00 | P.PN ---
Subjective Progress Note Date: 02/28/23 Ongoing abd pain. Unfortunately IR is not here over the weekend, so paracentesis is pending until thursday. Ongoing IVAN and pain control issues. Gen: in no apparent distress, resting comfortably in bed Eyes: PERRL, no scleral injection or icterus HENT: normocephalic, atraumatic, good hearing acuity, moist mucous membranes Neck: no tracheal deviation, full range of motion Resp: good air exchange, breathing comfortably with no accessory muscle use, no tactile fremitus CVS: good distal perfusion x 4, no pitting edema GI: soft, NTTP, ND, no hepatosplenomegaly, significant ascites present : no suprapubic tenderness, no CVAT, gonzalez catheter not present MSK: no clubbing, no cyanosis, no noted contractures of extremities Skin: no noted rashes, petechiae; temperature of skin is appropriate Neuro: moving all extremities without signs of weakness, CN II-XII intact Psych: cooperative, euthymic mood, insight and judgment intact Hospital Course: 43 year old man with history of ETOH dependence and decompensated cirrhosis presented fore evaluation of abdominal pain. In the emergency room, patient was afebrile, 105/73, heart rate 75, 100% on room air. CBC is remarkable for anemia to 10, thrombocytopenia to 127. Basic metabolic panel shows sodium of 134, CO2 of 15, BUN of 43, creatinine of 1.89. Liver function tests remarkable for bilirubin of 2.3, albumin of 3.2. Lactic acid was 3.7 and trended to 1.3. Coag show an INR of 1.3. Lipase was 117. Ammonia level was 72. EtOH level is less than 10. Assessment/plan: Decompensated liver cirrhosis secondary to EtOH abuse Bicytopenia - anemia and thrombo-cytopenia Acute kidney injury -Patient should be admitted to observation -Hold patient's home diuretics -Started on normal saline at 75 mL/h, d/c fluids today. -Repeat basic metabolic panel, liver function tests, magnesium tomorrow -Interventional radiology consult for paracentesis, we will send fluid for cell count, LDH, protein Patient is full code Objective - Vital Signs Vital signs: Vital Signs Temp 98.8 F 02/28/23 07:09 Pulse 75 02/28/23 07:09 Resp 16 02/28/23 07:09 BP 100/59 02/28/23 07:09 Pulse Ox 98 02/28/23 07:09 FiO2 Intake & Output 02/27/23 02/28/23 02/28/23 18:59 06:59 18:59 Output Total 150 Balance -150 Weight 72.121 kg 72.121 kg Output: Urine 150 - Labs CBC & Chem 7: 02/28/23 07:14 02/28/23 07:14 Labs: Abnormal Lab Results - Last 24 Hours (Table) 02/27/23 02/27/23 02/27/23 Range/Units 13:37 13:37 13:37 RBC 3.48 L (4.30-5.90) m/uL Hgb 10.0 L (13.0-17.5) gm/dL Hct 30.6 L (39.0-53.0) % RDW 20.3 H (11.5-15.5) % Plt Count 127 L (150-450) k/uL PT 13.7 H (10.0-12.5) sec INR 1.3 H (<1.2) Sodium 134 L (137-145) mmol/L Chloride (98-107) mmol/L Carbon Dioxide 15 L (22-30) mmol/L BUN 43 H (9-20) mg/dL Creatinine 1.89 H (0.66-1.25) mg/dL Glucose 115 H (74-99) mg/dL Plasma Lactic Acid Willam (0.7-2.0) mmol/L Phosphorus (2.5-4.5) mg/dL Total Bilirubin 2.3 H (0.2-1.3) mg/dL Ammonia (<30) umol/L Total Protein (6.3-8.2) g/dL Albumin 3.2 L (3.5-5.0) g/dL 02/27/23 02/28/23 02/28/23 Range/Units 13:37 07:14 07:14 RBC 3.43 L (4.30-5.90) m/uL Hgb 9.8 L (13.0-17.5) gm/dL Hct 30.4 L (39.0-53.0) % RDW 20.2 H (11.5-15.5) % Plt Count (150-450) k/uL PT (10.0-12.5) sec INR (<1.2) Sodium 135 L (137-145) mmol/L Chloride 111 H (98-107) mmol/L Carbon Dioxide 17 L (22-30) mmol/L BUN 39 H (9-20) mg/dL Creatinine 1.44 H (0.66-1.25) mg/dL Glucose (74-99) mg/dL Plasma Lactic Acid Willam 3.7 H* (0.7-2.0) mmol/L Phosphorus 4.6 H (2.5-4.5) mg/dL Total Bilirubin 1.4 H (0.2-1.3) mg/dL Ammonia 72 H (<30) umol/L Total Protein 5.9 L (6.3-8.2) g/dL Albumin 2.6 L (3.5-5.0) g/dL
[2023-02-28 17:08] LABS: Platelet Count 64 k/uL (150-450)
[2023-03-01] MEDS: MORPHINE SULFATE 4 MG/ML SYRINGE IV PRN ×4 (01:51→19:58)
[2023-03-01] MEDS: PANTOPRAZOLE 40 MG TABLET PO SCH ×2 (06:14→18:36)
[2023-03-01] MEDS: MIDODRINE 5 MG TAB PO SCH ×3 (06:14→18:36)
--- NOTE | 2023-03-01 08:55 | P.PN ---
Subjective Progress Note Date: 03/01/23 Ongoing abd pain. Unfortunately IR is not here over the weekend, so paracentesis is pending until thursday. Ongoing IVAN and pain control issues. Gen: in no apparent distress, resting comfortably in bed Eyes: PERRL, no scleral injection or icterus HENT: normocephalic, atraumatic, good hearing acuity, moist mucous membranes Neck: no tracheal deviation, full range of motion Resp: good air exchange, breathing comfortably with no accessory muscle use, no tactile fremitus CVS: good distal perfusion x 4, no pitting edema GI: soft, NTTP, ND, no hepatosplenomegaly, significant ascites present : no suprapubic tenderness, no CVAT, gonzalez catheter not present MSK: no clubbing, no cyanosis, no noted contractures of extremities Skin: no noted rashes, petechiae; temperature of skin is appropriate Neuro: moving all extremities without signs of weakness, CN II-XII intact Psych: cooperative, euthymic mood, insight and judgment intact Hospital Course: 43 year old man with history of ETOH dependence and decompensated cirrhosis presented fore evaluation of abdominal pain. In the emergency room, patient was afebrile, 105/73, heart rate 75, 100% on room air. CBC is remarkable for anemia to 10, thrombocytopenia to 127. Basic metabolic panel shows sodium of 134, CO2 of 15, BUN of 43, creatinine of 1.89. Liver function tests remarkable for bilirubin of 2.3, albumin of 3.2. Lactic acid was 3.7 and trended to 1.3. Coag show an INR of 1.3. Lipase was 117. Ammonia level was 72. EtOH level is less than 10. Assessment/plan: Decompensated liver cirrhosis secondary to EtOH abuse Bicytopenia - anemia and thrombo-cytopenia Acute kidney injury -Patient should be admitted to observation -Hold patient's home diuretics -Repeat CBC, basic metabolic panel, liver function tests, magnesium tomorrow -Interventional radiology consult for paracentesis, we will send fluid for cell count, LDH, protein on Thursday Patient is full code Objective - Vital Signs Vital signs: Vital Signs Temp 98.7 F 03/01/23 07:05 Pulse 76 03/01/23 07:05 Resp 18 03/01/23 07:05 BP 100/59 03/01/23 07:05 Pulse Ox 99 03/01/23 07:05 FiO2 Intake & Output 02/28/23 03/01/23 03/01/23 19:59 06:59 18:59 Other: # Voids - Labs CBC & Chem 7: 02/28/23 07:14 02/28/23 07:14 Labs: Abnormal Lab Results - Last 24 Hours (Table) 02/28/23 Range/Units 07:14 Plt Count 64 L (150-450) k/uL
[2023-03-02] MEDS: MORPHINE SULFATE 4 MG/ML SYRINGE IV PRN ×2 (01:00→20:35)
[2023-03-02] MEDS: MIDODRINE 5 MG TAB PO SCH ×3 (06:31→18:03)
[2023-03-02] MEDS: PANTOPRAZOLE 40 MG TABLET PO SCH ×2 (06:31→18:03)
[2023-03-02 08:28] LABS: Basophils # (A) 0.05 X 10*3/uL (0.00-0.10); Basophils % (A) 0.9 %; Eosinophils # (A) 0.37 X 10*3/uL (0.04-0.35); Eosinophils % (A) 6.9 %; HCT 28.5 % (39.6-50.0); HGB 8.6 d/dL (13.0-17.0); Lymphocytes # (A) 1.55 X 10*3/uL (0.90-5.00); Lymphocytes % (A) 28.8 %; MCH 28.4 pg (27.0-32.0); MCHC 30.2 d/dL (32.0-37.0); MCV 94.1 FL (80.0-97.0); Mean Platelet Volume 12.5 FL (9.5-12.2); Monocytes # (A) 0.53 X 10*3/uL (0.20-1.00); Monocytes % (A) 9.8 %; NRBC Per 100 WBC 0 X 10*3/uL (0.00-0.01); Neutrophils # (A) 2.87 X 10*3/uL (1.80-7.70); Neutrophils % (A) 53.2 %; Platelet Count 95 X 10*3/uL (140-440); RBC 3.03 X 10*6/uL (4.40-5.60); WBC 5.39 X 10*3/uL (4.50-10.00)
[2023-03-02 08:51] LABS: ALT 16 U/L (10-49); AST 52 U/L (14-35); Albumin 2.7 d/dL (3.8-4.9); Albumin/Globulin Ratio 1.04 Ratio (1.60-3.17); Alkaline Phosphatase 66 U/L (41-126); BUN/Creat Ratio 20.77 Ratio (12.00-20.00); Bilirubin, Conjugated 0.28 mg/dL (0.20-0.40); Bilirubin,Unconjugated 1.02 mg/dL (0.20-1.00); Calcium 8.1 mg/dL (8.7-10.3); Carbon Dioxide 20.9 mmol/L (21.6-31.8); Chloride 105 mmol/L (96-109); Globulin 2.6 d/dL (1.6-3.3); Glucose 121 mg/dL (70-110); Potassium 4.8 mmol/L (3.5-5.5); Sodium 133 mmol/L (135-145); Total Bilirubin 1.3 mg/dL (0.3-1.2); Total Protein 5.3 d/dL (6.2-8.2)
[2023-03-02] MEDS: ALBUMIN HUMAN 25% 50 ML in EMPTY BAG 1 BAG IVPB SCH ×4 (13:30→14:13)
--- NOTE | 2023-03-02 14:55 | P.DS ---
Providers Date of admission: 02/27/23 15:34 Expected date of discharge: 03/02/23 Attending physician: Nichole Joseph DO Primary care physician: [facility] Hospital Course: Decompensated liver cirrhosis secondary to EtOH abuse Bicytopenia - anemia and thrombo-cytopenia Acute kidney injury Hospital Course: 43 year old man with history of ETOH dependence and decompensated cirrhosis presented fore evaluation of abdominal pain. In the emergency room, patient was afebrile, 105/73, heart rate 75, 100% on room air. CBC is remarkable for anemia to 10, thrombocytopenia to 127. Basic metabolic panel shows sodium of 134, CO2 of 15, BUN of 43, creatinine of 1.89. Liver function tests remarkable for bilirubin of 2.3, albumin of 3.2. Lactic acid was 3.7 and trended to 1.3. Coag show an INR of 1.3. Lipase was 117. Ammonia level was 72. EtOH level is less than 10. Pt was given IVF and had diuretics held. IVAN did resolve with this. Pt udnerwent paracentesis today and had large volume removed with albumin during procedure. Pt was subsequently discharged home with PCP f/u. I spent 32 minutes coordinating this discharge on 03/02 Gen: in no apparent distress, resting comfortably in bed Eyes: PERRL, no scleral injection or icterus HENT: normocephalic, atraumatic, good hearing acuity, moist mucous membranes Neck: no tracheal deviation, full range of motion Resp: good air exchange, breathing comfortably with no accessory muscle use, no tactile fremitus CVS: good distal perfusion x 4, no pitting edema GI: soft, NTTP, ND, no hepatosplenomegaly, significant ascites present : no suprapubic tenderness, no CVAT, gonzalez catheter not present MSK: no clubbing, no cyanosis, no noted contractures of extremities Skin: no noted rashes, petechiae; temperature of skin is appropriate Neuro: moving all extremities without signs of weakness, CN II-XII intact Psych: cooperative, euthymic mood, insight and judgment intact Patient Condition at Discharge: Good Plan - Discharge Summary New Discharge Prescriptions: New Furosemide [Lasix] 40 mg PO DAILY #30 tablet Spironolactone 25 mg PO DAILY #30 tablet Continue Pantoprazole [Protonix] 40 mg PO AC-BID #60 tab Midodrine [ProAmatine] 10 mg PO AC-TID #90 tab Discontinued Furosemide [Lasix] 40 mg PO DAILY #30 tablet Spironolactone [Aldactone] 25 mg PO BID 30 Days #60 tablet Discharge Medication List Pantoprazole [Protonix] 40 mg PO AC-BID #60 tab 11/29/22 [Rx] Midodrine [ProAmatine] 10 mg PO AC-TID #90 tab 12/26/22 [Rx] Furosemide [Lasix] 40 mg PO DAILY #30 tablet 03/02/23 [Rx] Spironolactone 25 mg PO DAILY #30 tablet 03/02/23 [Rx] Follow up Appointment(s)/Referral(s): [facility],Clinic [Primary Care Provider] - 1-2 days Discharge Disposition: HOME SELF-CARE
[2023-03-03] MEDS: MORPHINE SULFATE 4 MG/ML SYRINGE IV PRN (01:11)
[2023-03-03 03:16] LABS: Appearance,BF Cloudy (Clear)
[2023-03-03 05:44] LABS: LDH, Body Fluid Source Ascities; T. Protein, Body Fluid Source Ascities; Total Protein, Body Fluid 973 mg/dL
[2023-03-03] MEDS: MIDODRINE 5 MG TAB PO SCH ×2 (06:35→13:15)
[2023-03-03] MEDS: PANTOPRAZOLE 40 MG TABLET PO SCH (06:35)
--- NOTE | 2023-03-03 09:13 | US ---
Ultrasound-guided paracentesis. DATE OF EXAM: 03/02/2023 CLINICAL HISTORY: Ascites The procedure was discussed with the patient. The risks, complications, benefits, and alternatives we re discussed and any questions were answered. Informed consent was obtained. The patient was placed s upine on the ultrasound table and prepped and draped in the usual sterile fashion. All elements of maximal barrier technique were utilized. Under ultrasound guidance, access into the right lower quadrant was obtained, via the paracentesis catheter system and direct ultrasound guidanc e. Approximately 13 liters of straw-colored fluid was removed. The patient was stable throughout the pro cedure and remained stable upon discharge from Department of Radiology. IMPRESSION: Successful paracentesis under ultrasound guidance.
[2023-03-03 13:34] VITALS: BP 86/47; PULSE 59; RESP 16; TEMP 98.2
--- NOTE | 2023-03-03 14:49 | P.DS ---
Providers Date of admission: 02/27/23 15:34 Expected date of discharge: 03/03/23 Attending physician: Nichole Joseph DO Primary care physician: [facility] Hospital Course: Discharge Diagnosis: Decompensated liver cirrhosis secondary to long-standing history of EtOH abuse Acute kidney injury, resolved Hyponatremia secondary to extensive ascites. Bicytopenia secondary to liver cirrhosis Hyperbilirubinemia with elevated liver enzymes secondary to decompensated liver cirrhosis Medical noncompliance, patient has history of failure to follow up outpatient with scheduled/recommended visits. Physical deconditioning and muscle waisting due to chronic disease, decompensated cirrhosis. Hypotension, chronic secondary to decompensated liver cirrhosis. Patient to continue with midodrine 10 mg 4 times daily. Hospital Course: Patient is a very pleasant 43-year-old male with a past medical history of alcohol abuse disorder and alcoholic liver cirrhosis. He is very well-known to our services and has significant history of medical noncompliance and failure to follow-up outpatient. Patient requires recurrent large-volume paracentesis. He reports he was initially following up outpatient and undergoing a scheduled paracentesis however the AR messed things up and would not allow him to have another one so he came to the hospital to have completed.In the emergency room, patient was afebrile, 105/73, heart rate 75, 100% on room air. Labs were completed and reviewed. CBC is remarkable for normocytic anemia with hemoglobin of 10.0 and thrombocytopenia with platelet count of 127. Basic metabolic panel shows sodium of 134, CO2 of 15, BUN of 43, creatinine of 1.89. Liver function tests remarkable for bilirubin of 2.3, albumin of 3.2. Lactic acid was 3.7 and trended to 1.3. Coag show an INR of 1.3. Lipase was 117. Ammonia level was 72. EtOH level is less than 10. Pt was given IVF and had diuretics held. IVAN did resolve with this. Pt udnerwent paracentesis 03/02/23 and had large volume removed with albumin during procedure. Patient is medically stable for discharge at this time. Blood pressure 93/58, heart rate 71, respiratory rate 16, SpO2 of 90% on room air. 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 Physical exam: Vital signs reviewed and stable. General: Chronically ill-appearing, emaciated his extremities with large distended cirrhotic abdomen Derm: Skin warm and dry, jaundiced Head: Atraumatic, normocephalic and symmetric.Scleral icterus present Mouth: no lip lesions, mucus membranes moist Cardiovascular: regular rate and rhythm, systolic murmur. Lungs: Respirations even, regular, and unlabored on room air with no accessory muscle usage. Abdominal: Soft Distended cirrhotic abdomen, no guarding, no appreciable organomegaly Ext: ROM intact. No gross muscle atrophy, no edema, no contractures Neuro: Speech clear, face symmetrical and CN II-XII grossly intact with no noted focal neuro deficits Psych: Alert and oriented to person, place, time, and situation. Appropriate and pleasant affect. A total of 35 minutes of time were spent preparing this complex discharge summary. Pt was discharged on 03/03/23 at 10:29 AM. Patient was seen independently by Nurse Practitioner. This document was prepared using [employer] dictation software. Please allow for errors in environmental sampler while rare they do occur. Patient Condition at Discharge: Stable Plan - Discharge Summary New Discharge Prescriptions: New Furosemide [Lasix] 40 mg PO DAILY #30 tablet Spironolactone 25 mg PO DAILY #30 tablet Continue Pantoprazole [Protonix] 40 mg PO AC-BID #60 tab Midodrine [ProAmatine] 10 mg PO AC-TID #90 tab Discontinued Furosemide [Lasix] 40 mg PO DAILY #30 tablet Spironolactone [Aldactone] 25 mg PO BID 30 Days #60 tablet Discharge Medication List Pantoprazole [Protonix] 40 mg PO AC-BID #60 tab 11/29/22 [Rx] Midodrine [ProAmatine] 10 mg PO AC-TID #90 tab 12/26/22 [Rx] Furosemide [Lasix] 40 mg PO DAILY #30 tablet 03/02/23 [Rx] Spironolactone 25 mg PO DAILY #30 tablet 03/02/23 [Rx] Follow up Appointment(s)/Referral(s): [facility],Clinic [Primary Care Provider] - 03/18/23 3:30 pm Patient Instructions/Handouts: Ascites (DC), Paracentesis (DC) Discharge Disposition: HOME SELF-CARE
== END 2023-03-03 13:44 | disposition home or self-care (01) | DRG 433 ==
LOC: EC 12:24 → 5NMEDONC 15:34 → 4SSUR 20:12
PROVIDERS: ADMIT Internal Medicine; ATTEND Internal Medicine
PROC: 0W9G3ZZ Drainage of Peritoneal Cavity, Percutaneous Approach (ICD-10-PCS; principal; 2023-03-03)
DX: K70.31 Alcoholic cirrhosis of liver with ascites (principal); E87.1 Hypo-osmolality and hyponatremia; N17.9 Acute kidney failure, unspecified; D64.9 Anemia, unspecified; D69.6 Thrombocytopenia, unspecified; I95.9 Hypotension, unspecified; I10 Essential (primary) hypertension; E78.5 Hyperlipidemia, unspecified; F10.20 Alcohol dependence, uncomplicated; F17.200 Nicotine dependence, unspecified, uncomplicated; F32.A Depression, unspecified; F43.10 Post-traumatic stress disorder, unspecified; Z79.899 Other long term (current) drug therapy; Z80.0 Family history of malignant neoplasm of digestive organs; Z91.199 Patient's noncompliance with other medical treatment and regimen due to unspecified reason
CPT/HCPCS: 36415; 49083; 80048; 80053; 80076; 80320; 82140; 82150; 83605; 83615; 83690; 83735; 84100; 84157; 85025; 85610; 85730; 89050; 96361; 96374; 99285

== ENCOUNTER 2023-03-08 03:29 | Emergency (ER) | payer OTHER ==
[2023-03-08 03:46] VITALS: TEMP 98
[2023-03-08 04:29] LABS: ALT 18 U/L (4-49); AST 43 U/L (17-59); African American GFR (CKD) 51 (>60 ml/min/1.73 sqM); Albumin 3.2 g/dL (3.5-5.0); Alkaline Phosphatase 88 U/L (38-126); Amylase 64 U/L (30-110); Anion Gap 10 mmol/L; Blood Urea Nitrogen 39 mg/dL (9-20); C Reactive Protein <0.5 mg/dL (<1.0); Calcium 8.6 mg/dL (8.4-10.2); Carbon Dioxide 17 mmol/L (22-30); Chloride 106 mmol/L (98-107); Glucose 100 mg/dL (74-99); Lipase 209 U/L (23-300); Non-African American GFR(CKD) 44 (>60 ml/min/1.73 sqM); Sodium 133 mmol/L (137-145); Total Bilirubin 1.3 mg/dL (0.2-1.3); Total Protein 6.8 g/dL (6.3-8.2)
[2023-03-08 04:30] LABS: Lactic Acid, Venous 2.4 mmol/L (0.7-2.0); Potassium 4.6 mmol/L (3.5-5.1)
[2023-03-08 05:02] LABS: Anisocytosis Slight; Basophils % (A) 0 %; Eosinophils # (A) 0.4 k/uL (0-0.7); Eosinophils % (A) 5 %; HCT 30.3 % (39.0-53.0); HGB 9.8 gm/dL (13.0-17.5); Hypochromasia Slight; Lymphocytes # (A) 1.9 k/uL (1.0-4.8); Lymphocytes % (A) 26 %; MCH 29.3 pg (25.0-35.0); MCHC 32.4 g/dL (31.0-37.0); MCV 90.2 fL (80.0-100.0); Mean Platelet Volume 11.2; Monocytes # (A) 0.5 k/uL (0-1.0); Monocytes % (A) 7 %; Neutrophils # (A) 4.3 k/uL (1.3-7.7); Neutrophils % (A) 59 %; RBC 3.36 m/uL (4.30-5.90); RDW 19.8 % (11.5-15.5); WBC 7.2 k/uL (3.8-10.6)
[2023-03-08] MEDS ORDERED: MORPHINE SULFATE 4 MG/ML SYRINGE IV STA (05:37)
[2023-03-08 05:43] LABS: Platelet Count 100 k/uL (150-450)
--- NOTE | 2023-03-08 06:19 | ED ---
Abdominal Pain HPI - General Chief Complaint: Abdominal Pain Stated Complaint: Abd Pain Time Seen by Provider: 03/08/23 04:07 Source: patient, EMS Mode of arrival: EMS - History of Present Illness Initial Comments: This patient is 43-year-old man with history of cirrhosis and ascites. The patient had been admitted here last week from the fourth to the seventh and had paracentesis performed on the seventh. He was discharged following that. The patient states that he feels like he is having fluid reaccumulation and thinks she may need to have another paracentesis performed. Patient denies fever or chills. No cough or dyspnea. He is having some moderate diffuse abdominal pain but denies tenderness. No vomiting or diarrhea. No change in urination noted. He denies leg edema. MD Complaint: abdominal pain -: days(s) Location: diffuse Radiation: none Severity: moderate Quality: fullness Consistency: constant Improves With: nothing Worsens With: nothing Associated Symptoms: denies other symptoms - Related Data Previous Rx's Medication Instructions Recorded Pantoprazole [Protonix] 40 mg PO AC-BID #60 tab 11/29/22 Midodrine [ProAmatine] 10 mg PO AC-TID #90 tab 12/26/22 Furosemide [Lasix] 40 mg PO DAILY #30 tablet 03/02/23 Spironolactone 25 mg PO DAILY #30 tablet 03/02/23 Allergies Allergy/AdvReac Type Severity Reaction Status Date / Time ibuprofen [From Motrin] Allergy Swelling Verified 02/27/23 13:48 Lips naproxen Allergy Swelling Verified 02/27/23 13:48 Lips Review of Systems ROS Statement: Those systems with pertinent positive or pertinent negative responses have been documented in the HPI. ROS Other: All systems not noted in ROS Statement are negative. Constitutional: Denies: fever Respiratory: Denies: cough, dyspnea Cardiovascular: Denies: chest pain, palpitations Gastrointestinal: Reports: abdominal pain. Denies: vomiting Genitourinary: Denies: dysuria Musculoskeletal: Denies: back pain Skin: Denies: rash Neurological: Denies: headache Past Medical History Past Medical History: Hyperlipidemia, Hypertension, Liver Disease, Pneumonia Additional Past Medical History / Comment(s): Alcoholism, past withdrawals with tremors/diaphoresis, elevated LFTs, alcoholic liver cirrhosis, ascities with paracentesis, severe sepsis/aspiration pneumonia, occasional upper back pain. History of Any Multi-Drug Resistant Organisms: None Reported Past Surgical History: No Surgical Hx Reported Additional Past Surgical History / Comment(s): Pt states he has never had surgery Past Anesthesia/Blood Transfusion Reactions: Unable to Obtain Additional Past Anesthesia/Blood Transfusion Reaction / Comment(s): Pt states he has never had surgery. Past Psychological History: Depression, PTSD Smoking Status: Current every day smoker Past Alcohol Use History: None Reported, Abuse Past Drug Use History: None Reported - Past Family History Mother Family Medical History: Cancer Additional Family Medical History / Comment(s): Mother has colon cancer. Father History Unknown: Yes Additional Family Medical History / Comment(s): All pt knows about his father is that he is . General Exam General appearance: alert Head exam: Present: atraumatic, normocephalic ENT exam: Present: mucous membranes dry Neck exam: Present: normal inspection Respiratory exam: Present: normal lung sounds bilaterally. Absent: respiratory distress, wheezes, rales, rhonchi, stridor Cardiovascular Exam: Present: regular rate, normal rhythm, normal heart sounds. Absent: systolic murmur, diastolic murmur, rubs, gallop GI/Abdominal exam: Present: soft, other (Mild to moderate degree of ascites). Absent: distended, tenderness, guarding, rebound, rigid, mass Extremities exam: Present: normal inspection, normal capillary refill. Absent: pedal edema, calf tenderness Back exam: Present: normal inspection. Absent: CVA tenderness (R), CVA tenderness (L) Neurological exam: Present: alert Skin exam: Present: warm, dry, intact, normal color. Absent: rash Course Vital Signs 03/08/23 03/08/23 03/08/23 03:31 04:06 05:01 Temperature 98.0 F Pulse Rate 74 76 70 Respiratory 19 19 20 Rate Blood Pressure 103/54 92/52 95/43 O2 Sat by Pulse 100 100 99 Oximetry 03/08/23 03/08/23 03/08/23 05:31 06:32 07:10 Temperature Pulse Rate 71 65 65 Respiratory 20 17 18 Rate Blood Pressure 90/44 89/51 104/57 O2 Sat by Pulse 100 98 100 Oximetry Medical Decision Making - Medical Decision Making Patient is 43-year-old man with history of cirrhosis and some ascites who presents with abdominal pain. The patient's does not have any exam signs concerning for peritonitis. There is some moderate ascites, not limiting respiratory effort area the patient is pending urinalysis at time of sign out. Was pt. sent in by a medical professional or institution (TASHA Camejo, UI SOFTWARE ENGINEER, urgent care, hospital, or penitentiary...) When possible be specific @ -[No] Did you speak to anyone other than the patient for history (EMS, parent, family, police, friend...)? What history was obtained from this source @ -[No] Did you review nursing and triage notes (agree or disagree)? Why? @ -[I reviewed and agree with nursing and triage notes] Were old charts reviewed (outside hosp., previous admission, EMS record, old EKG, old radiological studies, urgent care reports/EKG's, penitentiary records)? Report findings @ -[No old charts were reviewed] Differential Diagnosis (chest pain, altered mental status, abdominal pain women, abdominal pain men, vaginal bleeding, weakness, fever, dyspnea, syncope, headache, dizziness, GI bleed, back pain, seizure, CVA, palpatations, mental health, musculoskeletal)? @ -[Differential Abdominal Pain Men: Appendicitis, cholecystitis, diverticulosis, ischemic bowel, pancreatitis, hepatitis, UTI, gastroenteritis, AAA, incarcerated hernia, bowel obstruction, constipation, inflammatory bowel, hepatitis, peptic ulcer disease, splenic infarction, perforated viscus, testicular torsion, this is not meant to be an all-inclusive list EKG interpreted by me (3pts min.). @ -[As above] X-rays interpreted by me (1pt min.). @ -[None done] CT interpreted by me (1pt min.). @ -[None done] U/S interpreted by me (1pt. min.). @ -[None done] What testing was considered but not performed or refused? (CT, X-rays, U/S, labs)? Why? @ -[None] What meds were considered but not given or refused? Why? @ -[None] Did you discuss the management of the patient with other professionals (professionals i.e. TASHA Camejo, UI SOFTWARE ENGINEER, lab, RT, psych nurse, social services, plastic joint maker, teacher, ground defence officer, embedded case manager)? Give summary @ -[No] Was smoking cessation discussed for >3mins.? @ -[No] Was critical care preformed (if so, how long)? @ -[No] Were there social determinants of health that impacted care today? How? (Homelessness, low income, unemployed, alcoholism, drug addiction, transportation, low edu. Level, literacy, decrease access to med. care, fci, rehab)? @ -[No] Was there de-escalation of care discussed even if they declined (Discuss DNR or withdrawal of care, Hospice)? DNR status @ -[No] What co-morbidities impacted this encounter? (DM, HTN, Smoking, COPD, CAD, C ancer, CVA, ARF, Chemo, Hep., AIDS, mental health diagnosis, sleep apnea, morbid obesity)? @ -[None] Was patient admitted / discharged? Hospital course, mention meds given and route, prescriptions, significant lab abnormalities, going to OR and other pertinent info. @ -[The patient is pending urinalysis at time of shift change - Lab Data Result diagrams: 03/08/23 04:10 03/08/23 04:10 Lab Results 03/08/23 03/08/23 03/08/23 Range/Units 04:10 04:10 04:10 WBC 7.2 (3.8-10.6) k/uL RBC 3.36 L (4.30-5.90) m/uL Hgb 9.8 L (13.0-17.5) gm/dL Hct 30.3 L (39.0-53.0) % MCV 90.2 (80.0-100.0) fL MCH 29.3 (25.0-35.0) pg MCHC 32.4 (31.0-37.0) g/dL RDW 19.8 H (11.5-15.5) % Plt Count 100 L D (150-450) k/uL MPV 11.2 Neutrophils % 59 % Lymphocytes % 26 % Monocytes % 7 % Eosinophils % 5 % Basophils % 0 % Neutrophils # 4.3 (1.3-7.7) k/uL Lymphocytes # 1.9 (1.0-4.8) k/uL Monocytes # 0.5 (0-1.0) k/uL Eosinophils # 0.4 (0-0.7) k/uL Basophils # 0.0 (0-0.2) k/uL Hypochromasia Slight Anisocytosis Slight Sodium 133 L (137-145) mmol/L Potassium 4.6 (3.5-5.1) mmol/L Chloride 106 (98-107) mmol/L Carbon Dioxide 17 L (22-30) mmol/L Anion Gap 10 mmol/L BUN 39 H (9-20) mg/dL Creatinine 1.86 H (0.66-1.25) mg/dL Est GFR (CKD-EPI)AfAm 51 (>60 ml/min/1.73 sqM) Est GFR (CKD-EPI)NonAf 44 (>60 ml/min/1.73 sqM) Glucose 100 H (74-99) mg/dL Lactic Ac Sepsis Rflx Plasma Lactic Acid Willam 2.4 H* (0.7-2.0) mmol/L Calcium 8.6 (8.4-10.2) mg/dL Total Bilirubin 1.3 (0.2-1.3) mg/dL AST 43 (17-59) U/L ALT 18 (4-49) U/L Alkaline Phosphatase 88 (38-126) U/L Ammonia 67 H (<30) umol/L C-Reactive Protein <0.5 (<1.0) mg/dL Total Protein 6.8 (6.3-8.2) g/dL Albumin 3.2 L (3.5-5.0) g/dL Amylase 64 (30-110) U/L Lipase 209 (23-300) U/L 03/08/23 03/08/23 Range/Units 04:32 07:04 WBC (3.8-10.6) k/uL RBC (4.30-5.90) m/uL Hgb (13.0-17.5) gm/dL Hct (39.0-53.0) % MCV (80.0-100.0) fL MCH (25.0-35.0) pg MCHC (31.0-37.0) g/dL RDW (11.5-15.5) % Plt Count (150-450) k/uL MPV Neutrophils % % Lymphocytes % % Monocytes % % Eosinophils % % Basophils % % Neutrophils # (1.3-7.7) k/uL Lymphocytes # (1.0-4.8) k/uL Monocytes # (0-1.0) k/uL Eosinophils # (0-0.7) k/uL Basophils # (0-0.2) k/uL Hypochromasia Anisocytosis Sodium (137-145) mmol/L Potassium (3.5-5.1) mmol/L Chloride (98-107) mmol/L Carbon Dioxide (22-30) mmol/L Anion Gap mmol/L BUN (9-20) mg/dL Creatinine (0.66-1.25) mg/dL Est GFR (CKD-EPI)AfAm (>60 ml/min/1.73 sqM) Est GFR (CKD-EPI)NonAf (>60 ml/min/1.73 sqM) Glucose (74-99) mg/dL Lactic Ac Sepsis Rflx Y Plasma Lactic Acid Willam 1.2 (0.7-2.0) mmol/L Calcium (8.4-10.2) mg/dL Total Bilirubin (0.2-1.3) mg/dL AST (17-59) U/L ALT (4-49) U/L Alkaline Phosphatase (38-126) U/L Ammonia (<30) umol/L C-Reactive Protein (<1.0) mg/dL Total Protein (6.3-8.2) g/dL Albumin (3.5-5.0) g/dL Amylase (30-110) U/L Lipase (23-300) U/L Disposition Clinical Impression: Abdominal pain Disposition: HOME SELF-CARE Condition: Good Instructions (If sedation given, give patient instructions): Abdominal Pain (ED) Is patient prescribed a controlled substance at d/c from ED?: No Referrals: [facility],Clinic [Primary Care Provider] - 1-2 days
[2023-03-08] MEDS ORDERED: SODIUM CHLORIDE 0.9% 500 ML 500 ML IV STA (06:44)
[2023-03-08] MEDS ORDERED: LACTULOSE 20 GM/30 ML CUP PO ONE (08:02)
[2023-03-08 09:21] LABS: Appearance,Urine Clear (Clear); Bilirubin,Urine Negative (Negative); Blood,Urine Negative (Negative); Color,Urine Yellow; Glucose,Urine (UA) Negative (Negative); Ketones,Urine Negative (Negative); Leukocyte Esterase,Urine Negative (Negative); Nitrite,Urine Negative (Negative); PH, Urine 5.5 (5.0-8.0); Protein,Urine Trace (Negative); Specific Gravity,Urine 1.026 (1.001-1.035)
[2023-03-08 09:25] VITALS: RESP 16
[2023-03-08 09:49] VITALS: BP 108/71; PULSE 72
== END 2023-03-08 09:46 | disposition home or self-care (01) ==
LOC: EC 03:29
DX: R10.9 Unspecified abdominal pain (principal); I10 Essential (primary) hypertension; F17.200 Nicotine dependence, unspecified, uncomplicated; Z88.6 Allergy status to analgesic agent; Z86.59 Personal history of other mental and behavioral disorders
CPT/HCPCS: 36415; 80053; 82140; 82150; 83605; 83690; 85025; 86140; 81003; 99284; 96374; J2270

== ENCOUNTER 2023-03-12 08:35 | Day surgery (SDC) | payer OTHER ==
[2023-03-12 09:58] LABS: Anisocytosis Slight; Basophils % (A) 1 %; Eosinophils # (A) 0.3 k/uL (0-0.7); Eosinophils % (A) 5 %; HCT 31.1 % (39.0-53.0); HGB 10.2 gm/dL (13.0-17.5); Hypochromasia Slight; Lymphocytes # (A) 1.3 k/uL (1.0-4.8); Lymphocytes % (A) 23 %; MCH 29.4 pg (25.0-35.0); MCHC 32.6 g/dL (31.0-37.0); Mean Platelet Volume 8.7; Monocytes # (A) 0.4 k/uL (0-1.0); Monocytes % (A) 7 %; Neutrophils # (A) 3.5 k/uL (1.3-7.7); Neutrophils % (A) 63 %; Platelet Count 134 k/uL (150-450); RBC 3.46 m/uL (4.30-5.90); RDW 19.8 % (11.5-15.5); WBC 5.6 k/uL (3.8-10.6)
[2023-03-12 10:02] LABS: INR 1.3 (<1.2); Prothrombin Time 13.9 sec (10.0-12.5)
[2023-03-12] MEDS: ALBUMIN HUMAN 25% 50 ML in EMPTY BAG 1 BAG IVPB SCH ×4 (10:18→11:01)
[2023-03-12 10:23] LABS: ALT 21 U/L (4-49); AST 34 U/L (17-59); African American GFR (CKD) 73 (>60 ml/min/1.73 sqM); Albumin 3.2 g/dL (3.5-5.0); Alkaline Phosphatase 78 U/L (38-126); Anion Gap 11 mmol/L; Blood Urea Nitrogen 34 mg/dL (9-20); Calcium 8.7 mg/dL (8.4-10.2); Carbon Dioxide 15 mmol/L (22-30); Chloride 107 mmol/L (98-107); Glucose 126 mg/dL (74-99); Non-African American GFR(CKD) 63 (>60 ml/min/1.73 sqM); Potassium 4.2 mmol/L (3.5-5.1); Sodium 133 mmol/L (137-145); Total Bilirubin 1.4 mg/dL (0.2-1.3); Total Protein 6.7 g/dL (6.3-8.2)
--- NOTE | 2023-03-12 11:05 | US ---
Ultrasound-guided paracentesis. DATE OF EXAM: 03/12/2023 CLINICAL HISTORY: Ascites The procedure was discussed with the patient. The risks, complications, benefits, and alternatives we re discussed and any questions were answered. Informed consent was obtained. The patient was placed s upine on the ultrasound table and prepped and draped in the usual sterile fashion. All elements of maximal barrier technique were utilized. Under ultrasound guidance, access into the right lower quadrant was obtained, via the paracentesis catheter system and direct ultrasound guidanc e. Approximately 10 liters of straw-colored fluid was removed. The patient was stable throughout the pro cedure and remained stable upon discharge from Department of Radiology. IMPRESSION: Successful paracentesis under ultrasound guidance.
[2023-03-12 12:13] VITALS: BP 101/64; PULSE 81; RESP 15; TEMP 98
[2023-03-13 04:44] LABS: Appearance,BF Cloudy (Clear)
== END 2023-03-12 11:25 | disposition home or self-care (01) ==
LOC: RADPROMAIN 08:35
PROVIDERS: ATTEND Physician Assistant Medical
DX: R18.8 Other ascites (principal)
CPT/HCPCS: 80053; 89050; 85025; 85610; 36415; 49083; P9047

== ENCOUNTER 2023-03-18 08:57 | Day surgery (SDC) | payer OTHER ==
[2023-03-18 09:25] LABS: Anisocytosis Slight; Basophils % (A) 0 %; Eosinophils # (A) 0.4 k/uL (0-0.7); Eosinophils % (A) 6 %; HCT 31.5 % (39.0-53.0); HGB 10.3 gm/dL (13.0-17.5); Hypochromasia Slight; Lymphocytes # (A) 1.5 k/uL (1.0-4.8); Lymphocytes % (A) 23 %; MCH 30.2 pg (25.0-35.0); MCHC 32.7 g/dL (31.0-37.0); MCV 92.4 fL (80.0-100.0); Mean Platelet Volume 8.9; Monocytes # (A) 0.4 k/uL (0-1.0); Monocytes % (A) 6 %; Neutrophils # (A) 3.9 k/uL (1.3-7.7); Neutrophils % (A) 63 %; Platelet Count 118 k/uL (150-450); RBC 3.41 m/uL (4.30-5.90); RDW 19.8 % (11.5-15.5); WBC 6.3 k/uL (3.8-10.6)
[2023-03-18 09:31] LABS: INR 1.3 (<1.2); Prothrombin Time 13.7 sec (10.0-12.5)
[2023-03-18 09:36] LABS: ALT 21 U/L (4-49); AST 36 U/L (17-59); African American GFR (CKD) >90 (>60 ml/min/1.73 sqM); Albumin 3.5 g/dL (3.5-5.0); Alkaline Phosphatase 79 U/L (38-126); Anion Gap 14 mmol/L; Blood Urea Nitrogen 25 mg/dL (9-20); Carbon Dioxide 15 mmol/L (22-30); Chloride 105 mmol/L (98-107); Glucose 107 mg/dL (74-99); Non-African American GFR(CKD) 78 (>60 ml/min/1.73 sqM); Potassium 3.5 mmol/L (3.5-5.1); Sodium 134 mmol/L (137-145); Total Bilirubin 1.7 mg/dL (0.2-1.3)
[2023-03-18] MEDS: ALBUMIN HUMAN 25% 50 ML in EMPTY BAG 1 BAG IVPB SCH ×4 (10:31→11:17)
[2023-03-18 10:49] VITALS: RESP 16; TEMP 98.1
[2023-03-18 11:47] VITALS: BP 109/67; PULSE 81
--- NOTE | 2023-03-18 12:01 | US ---
EXAMINATION TYPE: US paracentesis abd w/image DATE OF EXAM: 03/18/2023 10:25 AM CLINICAL INDICATION:Male, 43 years old with history of R18.8; COMPARISON: 03/12/2023 ATTENDING: Dr. Marcin Calixto PROCEDURE: Informed consent was obtained. The risks of the procedure were extensively explained incl uding risk of damage to surrounding bowel with perforation and need for additional procedures. Proced ure was performed in the ultrasound procedure suite. Ultrasound imaging of the abdomen demonstrate as citic fluid. An appropriate access site was localized to the right lower abdomen. Timeout was taken p er protocol. The skin was prepped and draped in the usual sterile fashion and then locally anesthetiz ed with 1% lidocaine. The peritoneal cavity was then accessed via a 5-[place] one-step needle/cathete r. Approximately 09148 cc of clear straw-colored fluid was obtained. Samples were sent to the lab fo r analysis. Postprocedural imaging of the abdomen demonstrate a minimal amount of abdominal fluid. Patient tolerated procedure well without immediate complication. Hemostasis at the procedural site w as obtained with a sterile bandage placed. The patient was monitored in the holding area following th e procedure and was subsequently discharged in stable condition. IMPRESSION: Ultrasound guided paracentesis, with approximately 22588 cc of clear straw-colored fluid drained. Pat hology results pending. No immediate complications were evident.
[2023-03-18 18:05] LABS: Appearance,BF Cloudy (Clear)
== END 2023-03-18 11:50 | disposition home or self-care (01) ==
LOC: RADPROMAIN 08:57
PROVIDERS: ATTEND Physician Assistant Medical
DX: R18.8 Other ascites (principal)
CPT/HCPCS: 80053; 89050; 85025; 85610; 36415; 49083; P9047

== ENCOUNTER → 2023-03-25 | Day surgery (SDC) | payer OTHER ==
[2023-03-25 10:01] LABS: Anisocytosis Slight; Basophils # (A) 0.1 k/uL (0-0.2); Basophils % (A) 1 %; Eosinophils # (A) 0.4 k/uL (0-0.7); Eosinophils % (A) 6 %; HGB 10.2 gm/dL (13.0-17.5); Hypochromasia Slight; Lymphocytes # (A) 1.5 k/uL (1.0-4.8); Lymphocytes % (A) 24 %; MCH 29.1 pg (25.0-35.0); MCHC 31.8 g/dL (31.0-37.0); MCV 91.5 fL (80.0-100.0); Mean Platelet Volume 9.1; Monocytes # (A) 0.4 k/uL (0-1.0); Monocytes % (A) 6 %; Neutrophils # (A) 3.9 k/uL (1.3-7.7); Neutrophils % (A) 61 %; Platelet Count 116 k/uL (150-450); RBC 3.49 m/uL (4.30-5.90); RDW 19.4 % (11.5-15.5); WBC 6.4 k/uL (3.8-10.6)
[2023-03-25 10:20] LABS: ALT 20 U/L (4-49); AST 38 U/L (17-59); African American GFR (CKD) 76 (>60 ml/min/1.73 sqM); Albumin 3.4 g/dL (3.5-5.0); Alkaline Phosphatase 86 U/L (38-126); Anion Gap 13 mmol/L; Blood Urea Nitrogen 29 mg/dL (9-20); Calcium 8.7 mg/dL (8.4-10.2); Carbon Dioxide 16 mmol/L (22-30); Chloride 103 mmol/L (98-107); Glucose 94 mg/dL (74-99); Non-African American GFR(CKD) 65 (>60 ml/min/1.73 sqM); Potassium 3.8 mmol/L (3.5-5.1); Sodium 132 mmol/L (137-145); Total Bilirubin 1.8 mg/dL (0.2-1.3); Total Protein 6.9 g/dL (6.3-8.2)
[2023-03-25 10:21] LABS: INR 1.3 (<1.2); Prothrombin Time 13.9 sec (10.0-12.5)
[2023-03-25] MEDS: ALBUMIN HUMAN 25% 50 ML in EMPTY BAG 1 BAG IVPB SCH ×4 (10:22→11:15)
[2023-03-25 10:36] VITALS: TEMP 97.9
[2023-03-25 11:37] VITALS: PULSE 79; RESP 18
[2023-03-25 12:07] VITALS: BP 100/63
[2023-03-26 05:16] LABS: Appearance,BF Cloudy (Clear)
--- NOTE | 2023-03-26 13:29 | US ---
Ultrasound-guided paracentesis. DATE OF EXAM: 03/25/2023 CLINICAL HISTORY: Ascites The procedure was discussed with the patient. The risks, complications, benefits, and alternatives we re discussed and any questions were answered. Informed consent was obtained. The patient was placed s upine on the ultrasound table and prepped and draped in the usual sterile fashion. All elements of maximal barrier technique were utilized. Under ultrasound guidance, access into the right lower quadrant was obtained, via the paracentesis catheter system and direct ultrasound guidanc e. Approximately 10 liters of straw-colored fluid was removed. The patient was stable throughout the pro cedure and remained stable upon discharge from Department of Radiology. IMPRESSION: Successful paracentesis under ultrasound guidance.
== END ==
LOC: RADPROMAIN 09:09
PROVIDERS: ATTEND Internal Medicine Gastroenterology
DX: R18.8 Other ascites (principal)
CPT/HCPCS: 80053; 89050; 85025; 85610; 36415; 49083; P9047

== ENCOUNTER 2023-04-01 08:36 | Day surgery (SDC) | payer OTHER ==
[2023-04-01] MEDS: ALBUMIN HUMAN 25% 50 ML in EMPTY BAG 1 BAG IVPB SCH ×4 (09:34→10:25)
[2023-04-01 09:36] LABS: Anisocytosis Slight; Basophils % (A) 1 %; Eosinophils # (A) 0.2 k/uL (0-0.7); Eosinophils % (A) 4 %; HCT 30.3 % (39.0-53.0); HGB 9.7 gm/dL (13.0-17.5); Hypochromasia Moderate; Lymphocytes # (A) 1.1 k/uL (1.0-4.8); Lymphocytes % (A) 23 %; MCH 29.7 pg (25.0-35.0); MCHC 32.1 g/dL (31.0-37.0); MCV 92.5 fL (80.0-100.0); Mean Platelet Volume 9.4; Monocytes # (A) 0.4 k/uL (0-1.0); Monocytes % (A) 7 %; Neutrophils # (A) 3.2 k/uL (1.3-7.7); Neutrophils % (A) 63 %; Platelet Count 116 k/uL (150-450); RBC 3.27 m/uL (4.30-5.90); RDW 18.8 % (11.5-15.5); WBC 5.1 k/uL (3.8-10.6)
[2023-04-01 09:53] LABS: INR 1.4 (<1.2); Prothrombin Time 14.1 sec (10.0-12.5)
[2023-04-01 09:54] VITALS: RESP 18; TEMP 98
[2023-04-01 09:58] LABS: ALT 22 U/L (4-49); African American GFR (CKD) 61 (>60 ml/min/1.73 sqM); Anion Gap 13 mmol/L; Blood Urea Nitrogen 33 mg/dL (9-20); Calcium 8.7 mg/dL (8.4-10.2); Carbon Dioxide 16 mmol/L (22-30); Chloride 103 mmol/L (98-107); Glucose 102 mg/dL (74-99); Non-African American GFR(CKD) 53 (>60 ml/min/1.73 sqM); Potassium 5.6 mmol/L (3.5-5.1); Sodium 132 mmol/L (137-145); Total Bilirubin 2.3 mg/dL (0.2-1.3)
[2023-04-01 10:04] LABS: AST 57 U/L (17-59); Albumin 3.3 g/dL (3.5-5.0); Alkaline Phosphatase 85 U/L (38-126); Total Protein 6.9 g/dL (6.3-8.2)
--- NOTE | 2023-04-01 10:39 | US ---
Ultrasound-guided paracentesis. DATE OF EXAM: 04/01/2023 CLINICAL HISTORY: Ascites The procedure was discussed with the patient. The risks, complications, benefits, and alternatives we re discussed and any questions were answered. Informed consent was obtained. The patient was placed s upine on the ultrasound table and prepped and draped in the usual sterile fashion. All elements of maximal barrier technique were utilized. Under ultrasound guidance, access into the right lower quadrant was obtained, via the paracentesis catheter system and direct ultrasound guidanc e. Approximately 10 liters of straw-colored fluid was removed. The patient was stable throughout the pro cedure and remained stable upon discharge from Department of Radiology. IMPRESSION: Successful paracentesis under ultrasound guidance.
[2023-04-01 11:53] VITALS: BP 101/64; PULSE 74
[2023-04-02 04:52] LABS: Appearance,BF Cloudy (Clear)
== END 2023-04-01 11:20 | disposition home or self-care (01) ==
LOC: RADPROMAIN 08:36
PROVIDERS: ATTEND Internal Medicine Gastroenterology
DX: R18.8 Other ascites (principal)
CPT/HCPCS: 80053; 89050; 85025; 85610; 36415; 49083; P9047

== ENCOUNTER 2023-04-08 08:53 | Day surgery (SDC) | payer OTHER ==
[2023-04-08 10:13] VITALS: RESP 18; TEMP 98
[2023-04-08] MEDS: ALBUMIN HUMAN 25% 50 ML in EMPTY BAG 1 BAG IVPB SCH ×4 (10:13→11:16)
[2023-04-08 10:14] LABS: Anisocytosis Slight; Basophils % (A) 1 %; Eosinophils # (A) 0.3 k/uL (0-0.7); Eosinophils % (A) 6 %; HCT 29.1 % (39.0-53.0); HGB 9.3 gm/dL (13.0-17.5); Hypochromasia Slight; Lymphocytes # (A) 1.1 k/uL (1.0-4.8); Lymphocytes % (A) 23 %; MCH 29.7 pg (25.0-35.0); MCHC 31.8 g/dL (31.0-37.0); MCV 93.4 fL (80.0-100.0); Mean Platelet Volume 9.3; Monocytes # (A) 0.3 k/uL (0-1.0); Monocytes % (A) 5 %; Neutrophils # (A) 3.1 k/uL (1.3-7.7); Neutrophils % (A) 64 %; Platelet Count 105 k/uL (150-450); RBC 3.11 m/uL (4.30-5.90); RDW 18.5 % (11.5-15.5); WBC 4.9 k/uL (3.8-10.6)
[2023-04-08 10:25] LABS: INR 1.2 (<1.2); Prothrombin Time 13.2 sec (10.0-12.5)
[2023-04-08 10:29] LABS: ALT 22 U/L (4-49); AST 43 U/L (17-59); African American GFR (CKD) >90 (>60 ml/min/1.73 sqM); Albumin 3.2 g/dL (3.5-5.0); Alkaline Phosphatase 93 U/L (38-126); Anion Gap 10 mmol/L; Blood Urea Nitrogen 29 mg/dL (9-20); Calcium 8.4 mg/dL (8.4-10.2); Carbon Dioxide 19 mmol/L (22-30); Chloride 104 mmol/L (98-107); Glucose 111 mg/dL (74-99); Non-African American GFR(CKD) 80 (>60 ml/min/1.73 sqM); Potassium 4.2 mmol/L (3.5-5.1); Sodium 133 mmol/L (137-145); Total Bilirubin 1.4 mg/dL (0.2-1.3); Total Protein 6.6 g/dL (6.3-8.2)
--- NOTE | 2023-04-08 11:49 | US ---
Ultrasound-guided paracentesis. DATE OF EXAM: 04/08/2023 CLINICAL HISTORY: Ascites The procedure was discussed with the patient. The risks, complications, benefits, and alternatives we re discussed and any questions were answered. Informed consent was obtained. The patient was placed s upine on the ultrasound table and prepped and draped in the usual sterile fashion. All elements of maximal barrier technique were utilized. Under ultrasound guidance, access into the right lower quadrant was obtained, via the paracentesis catheter system and direct ultrasound guidanc e. Approximately 10 liters of straw-colored fluid was removed. The patient was stable throughout the pro cedure and remained stable upon discharge from Department of Radiology. IMPRESSION: Successful paracentesis under ultrasound guidance.
[2023-04-08 11:56] VITALS: BP 115/76; PULSE 80
[2023-04-09 05:58] LABS: Appearance,BF Turbid (Clear)
== END 2023-04-08 11:45 | disposition home or self-care (01) ==
LOC: RADPROMAIN 08:53
PROVIDERS: ATTEND Internal Medicine Gastroenterology
DX: R18.8 Other ascites (principal)
CPT/HCPCS: 80053; 89050; 85025; 85610; 36415; 49083; P9047

== ENCOUNTER 2023-04-15 08:38 | Day surgery (SDC) | payer OTHER ==
[2023-04-15 09:37] LABS: Anisocytosis Slight; Basophils % (A) 1 %; Eosinophils # (A) 0.4 k/uL (0-0.7); Eosinophils % (A) 6 %; HCT 28.6 % (39.0-53.0); HGB 9.4 gm/dL (13.0-17.5); Hypochromasia Slight; Lymphocytes # (A) 1.4 k/uL (1.0-4.8); Lymphocytes % (A) 22 %; MCH 30.4 pg (25.0-35.0); MCHC 32.7 g/dL (31.0-37.0); MCV 92.9 fL (80.0-100.0); Mean Platelet Volume 9.6; Monocytes # (A) 0.4 k/uL (0-1.0); Monocytes % (A) 6 %; Neutrophils # (A) 4.1 k/uL (1.3-7.7); Neutrophils % (A) 64 %; Platelet Count 137 k/uL (150-450); RBC 3.08 m/uL (4.30-5.90); RDW 17.9 % (11.5-15.5); WBC 6.5 k/uL (3.8-10.6)
[2023-04-15 09:45] LABS: INR 1.3 (<1.2); Prothrombin Time 13.3 sec (10.0-12.5)
[2023-04-15] MEDS: ALBUMIN HUMAN 25% 50 ML in EMPTY BAG 1 BAG IVPB SCH ×4 (09:48→10:31)
[2023-04-15 09:51] VITALS: RESP 16; TEMP 97.7
[2023-04-15 09:51] LABS: ALT 20 U/L (4-49); AST 44 U/L (17-59); African American GFR (CKD) >90 (>60 ml/min/1.73 sqM); Albumin 3.3 g/dL (3.5-5.0); Alkaline Phosphatase 80 U/L (38-126); Anion Gap 10 mmol/L; Blood Urea Nitrogen 28 mg/dL (9-20); Calcium 8.9 mg/dL (8.4-10.2); Carbon Dioxide 15 mmol/L (22-30); Chloride 107 mmol/L (98-107); Glucose 112 mg/dL (74-99); Non-African American GFR(CKD) >90 (>60 ml/min/1.73 sqM); Potassium 4.3 mmol/L (3.5-5.1); Sodium 132 mmol/L (137-145); Total Bilirubin 1.6 mg/dL (0.2-1.3); Total Protein 6.9 g/dL (6.3-8.2)
[2023-04-15 11:13] VITALS: BP 103/51; PULSE 94
--- NOTE | 2023-04-15 14:33 | US ---
Ultrasound-guided paracentesis. DATE OF EXAM: 04/15/2023 CLINICAL HISTORY: Ascites The procedure was discussed with the patient. The risks, complications, benefits, and alternatives we re discussed and any questions were answered. Informed consent was obtained. The patient was placed s upine on the ultrasound table and prepped and draped in the usual sterile fashion. All elements of maximal barrier technique were utilized. Under ultrasound guidance, access into the right lower quadrant was obtained, via the paracentesis catheter system and direct ultrasound guidanc e. Approximately 10.8 liters of straw-colored fluid was removed. The patient was stable throughout the p rocedure and remained stable upon discharge from Department of Radiology. IMPRESSION: Successful paracentesis under ultrasound guidance.
[2023-04-16 03:36] LABS: Appearance,BF Turbid (Clear)
== END 2023-04-15 11:15 | disposition home or self-care (01) ==
LOC: RADPROMAIN 08:38
PROVIDERS: ATTEND Internal Medicine Gastroenterology
DX: R18.8 Other ascites (principal)
CPT/HCPCS: 80053; 89050; 85025; 85610; 36415; 49083; P9047

== ENCOUNTER 2023-04-22 08:47 | Day surgery (SDC) | payer OTHER ==
[2023-04-22 09:29] LABS: Anisocytosis Slight; Eosinophils % (A) 7 %; HCT 28.6 % (39.0-53.0); HGB 9.3 gm/dL (13.0-17.5); Hypochromasia Moderate; Lymphocytes % (A) 27 %; MCH 30.2 pg (25.0-35.0); MCHC 32.6 g/dL (31.0-37.0); MCV 92.7 fL (80.0-100.0); Mean Platelet Volume 9.1; Monocytes % (A) 6 %; Neutrophils % (A) 57 %; Platelet Count 129 k/uL (150-450); RBC 3.09 m/uL (4.30-5.90); WBC 6.1 k/uL (3.8-10.6)
[2023-04-22 09:30] LABS: Basophils # (A) 0.1 k/uL (0-0.2); Basophils % (A) 1 %; Eosinophils # (A) 0.4 k/uL (0-0.7); Lymphocytes # (A) 1.7 k/uL (1.0-4.8); Monocytes # (A) 0.4 k/uL (0-1.0); Neutrophils # (A) 3.4 k/uL (1.3-7.7)
[2023-04-22 09:40] VITALS: TEMP 98
[2023-04-22 09:40] LABS: INR 1.3 (<1.2); Prothrombin Time 13.3 sec (10.0-12.5)
[2023-04-22 09:42] LABS: ALT 19 U/L (4-49); AST 38 U/L (17-59); African American GFR (CKD) 73 (>60 ml/min/1.73 sqM); Albumin 3.3 g/dL (3.5-5.0); Alkaline Phosphatase 86 U/L (38-126); Anion Gap 11 mmol/L; Blood Urea Nitrogen 32 mg/dL (9-20); Calcium 8.6 mg/dL (8.4-10.2); Carbon Dioxide 14 mmol/L (22-30); Chloride 106 mmol/L (98-107); Glucose 109 mg/dL (74-99); Non-African American GFR(CKD) 63 (>60 ml/min/1.73 sqM); Potassium 4.7 mmol/L (3.5-5.1); Sodium 131 mmol/L (137-145); Total Bilirubin 1.4 mg/dL (0.2-1.3); Total Protein 6.9 g/dL (6.3-8.2)
[2023-04-22] MEDS: ALBUMIN HUMAN 25% 50 ML in EMPTY BAG 1 BAG IVPB SCH ×4 (09:50→10:38)
[2023-04-22 10:05] VITALS: RESP 16
[2023-04-22 11:27] VITALS: BP 117/65; PULSE 75
[2023-04-23 05:12] LABS: Appearance,BF Turbid (Clear)
--- NOTE | 2023-04-23 09:08 | US ---
EXAMINATION TYPE: US paracentesis abd w/image DATE OF EXAM: 04/22/2023 10:00 AM CLINICAL INDICATION:Male, 43 years old with history of R18.8 OTHER ASCITES; COMPARISON: 04/15/2023 ATTENDING: Dr. Marcin Calixto PROCEDURE: Informed consent was obtained. The risks of the procedure were extensively explained incl uding risk of damage to surrounding bowel with perforation and need for additional procedures. Proced ure was performed in the ultrasound procedure suite. Ultrasound imaging of the abdomen demonstrate as citic fluid. An appropriate access site was localized to the right lower abdomen. Timeout was taken p er protocol. The skin was prepped and draped in the usual sterile fashion and then locally anesthetiz ed with 1% lidocaine. The peritoneal cavity was then accessed via a 5-Mongolian one-step needle/cathete r. Approximately 33025 cc of clear straw-colored fluid was obtained. Samples were sent to the lab fo r analysis. Postprocedural imaging of the abdomen demonstrate a minimal amount of abdominal fluid. Patient tolerated procedure well without immediate complication. Hemostasis at the procedural site w as obtained with a sterile bandage placed. The patient was monitored in the holding area following th e procedure and was subsequently discharged in stable condition. IMPRESSION: Ultrasound guided paracentesis, with approximately 42199 cc of clear straw-colored fluid drained. Pat hology results pending. No immediate complications were evident.
== END 2023-04-22 11:30 | disposition home or self-care (01) ==
LOC: RADPROMAIN 08:47
PROVIDERS: ATTEND Internal Medicine Gastroenterology
DX: R18.8 Other ascites (principal)
CPT/HCPCS: 80053; 89050; 85025; 85610; 49083; P9047

== ENCOUNTER 2023-04-29 08:42 | Day surgery (SDC) | payer OTHER ==
[2023-04-29 09:19] LABS: Anisocytosis Slight; Basophils % (A) 1 %; Eosinophils # (A) 0.6 k/uL (0-0.7); Eosinophils % (A) 8 %; HGB 9.3 gm/dL (13.0-17.5); Hypochromasia Moderate; Lymphocytes # (A) 2.2 k/uL (1.0-4.8); Lymphocytes % (A) 30 %; MCH 30.1 pg (25.0-35.0); Mean Platelet Volume 9.4; Monocytes # (A) 0.5 k/uL (0-1.0); Monocytes % (A) 7 %; Neutrophils # (A) 3.9 k/uL (1.3-7.7); Neutrophils % (A) 53 %; Platelet Count 125 k/uL (150-450); RBC 3.08 m/uL (4.30-5.90); RDW 17.1 % (11.5-15.5); WBC 7.3 k/uL (3.8-10.6)
[2023-04-29 09:21] VITALS: RESP 16; TEMP 98.1
[2023-04-29 09:25] LABS: INR 1.3 (<1.2)
[2023-04-29] MEDS: ALBUMIN HUMAN 25% 50 ML in EMPTY BAG 1 BAG IVPB SCH ×4 (09:35→10:24)
[2023-04-29 09:53] LABS: ALT 18 U/L (4-49); AST 37 U/L (17-59); African American GFR (CKD) 72 (>60 ml/min/1.73 sqM); Albumin 3.1 g/dL (3.5-5.0); Alkaline Phosphatase 89 U/L (38-126); Anion Gap 12 mmol/L; Blood Urea Nitrogen 31 mg/dL (9-20); Calcium 8.4 mg/dL (8.4-10.2); Carbon Dioxide 14 mmol/L (22-30); Chloride 106 mmol/L (98-107); Glucose 95 mg/dL (74-99); Non-African American GFR(CKD) 62 (>60 ml/min/1.73 sqM); Potassium 4.7 mmol/L (3.5-5.1); Sodium 132 mmol/L (137-145); Total Bilirubin 1.2 mg/dL (0.2-1.3); Total Protein 6.6 g/dL (6.3-8.2)
[2023-04-29 11:43] VITALS: BP 101/51; PULSE 85
[2023-04-30 05:05] LABS: Appearance,BF Cloudy (Clear)
--- NOTE | 2023-04-30 12:39 | US ---
EXAMINATION TYPE: US paracentesis abd w/image DATE OF EXAM: 04/29/2023 10:03 AM CLINICAL INDICATION:Male, 43 years old with history of R18.8 OTHER ASCITES; COMPARISON: 04/22/2023 ATTENDING: Dr. Marcin Calixto PROCEDURE: Informed consent was obtained. The risks of the procedure were extensively explained incl uding risk of damage to surrounding bowel with perforation and need for additional procedures. Proced ure was performed in the ultrasound procedure suite. Ultrasound imaging of the abdomen demonstrate as citic fluid. An appropriate access site was localized to the right lower abdomen. Timeout was taken p er protocol. The skin was prepped and draped in the usual sterile fashion and then locally anesthetiz ed with 1% lidocaine. The peritoneal cavity was then accessed via a 5-[place]al[place] one-step needle/cathete r. Approximately 40200 cc of cloudy straw-colored fluid was obtained. Samples were sent to the lab f or analysis. Postprocedural imaging of the abdomen demonstrate a minimal amount of abdominal fluid. Patient tolerated procedure well without immediate complication. Hemostasis at the procedural site w as obtained with a sterile bandage placed. The patient was monitored in the holding area following th e procedure and was subsequently discharged in stable condition. IMPRESSION: Ultrasound guided paracentesis, with approximately 14234 cc of cloudy straw-colored fluid drained. Pa thology results pending. No immediate complications were evident.
== END 2023-04-29 11:25 | disposition home or self-care (01) ==
LOC: RADPROMAIN 08:42
PROVIDERS: ATTEND Internal Medicine Gastroenterology
DX: R18.8 Other ascites (principal)
CPT/HCPCS: 80053; 89050; 85025; 85610; 36415; 49083; P9047

== ENCOUNTER 2023-05-06 08:33 | Day surgery (SDC) | payer OTHER ==
[2023-05-06 09:38] LABS: Anisocytosis Slight; Basophils # (A) 0.1 k/uL (0-0.2); Basophils % (A) 1 %; Eosinophils # (A) 0.4 k/uL (0-0.7); Eosinophils % (A) 6 %; HCT 28.8 % (39.0-53.0); HGB 9.3 gm/dL (13.0-17.5); Hypochromasia Slight; Lymphocytes # (A) 1.3 k/uL (1.0-4.8); Lymphocytes % (A) 20 %; MCH 30.4 pg (25.0-35.0); MCHC 32.4 g/dL (31.0-37.0); MCV 93.8 fL (80.0-100.0); Mean Platelet Volume 10.8; Monocytes # (A) 0.5 k/uL (0-1.0); Monocytes % (A) 7 %; Neutrophils # (A) 4.2 k/uL (1.3-7.7); Neutrophils % (A) 63 %; Platelet Count 103 k/uL (150-450); RBC 3.07 m/uL (4.30-5.90); RDW 16.9 % (11.5-15.5); WBC 6.6 k/uL (3.8-10.6)
[2023-05-06 09:47] LABS: INR 1.3 (<1.2); Prothrombin Time 13.9 sec (10.0-12.5)
[2023-05-06 09:58] LABS: ALT 17 U/L (4-49); AST 38 U/L (17-59); African American GFR (CKD) 66 (>60 ml/min/1.73 sqM); Albumin 3.3 g/dL (3.5-5.0); Alkaline Phosphatase 104 U/L (38-126); Anion Gap 8 mmol/L; Blood Urea Nitrogen 34 mg/dL (9-20); Calcium 8.9 mg/dL (8.4-10.2); Carbon Dioxide 16 mmol/L (22-30); Chloride 106 mmol/L (98-107); Glucose 105 mg/dL (74-99); Non-African American GFR(CKD) 57 (>60 ml/min/1.73 sqM); Sodium 130 mmol/L (137-145); Total Bilirubin 1.1 mg/dL (0.2-1.3); Total Protein 6.8 g/dL (6.3-8.2)
[2023-05-06] MEDS: ALBUMIN HUMAN 25% 50 ML in EMPTY BAG 1 BAG IVPB SCH ×4 (10:15→11:02)
[2023-05-06 10:41] VITALS: RESP 18; TEMP 98.1
[2023-05-06 12:15] VITALS: BP 101/45; PULSE 83
--- NOTE | 2023-05-06 13:25 | US ---
EXAMINATION TYPE: US paracentesis abd w/image (therapeutic and diagnostic) DATE OF EXAM: 05/06/2023 CLINICAL HISTORY: 43-year-old male R18.8, moderate ascites, referred for routine outpatient paracent esis for cirrhosis. The procedure was discussed with the patient. The risks, complications, benefits, and alternatives we re discussed and any questions were answered. Informed consent was obtained. The patient was placed s upine on the ultrasound table and prepped and draped in the usual sterile fashion. All elements of maximal barrier technique were utilized. Ultrasound was utilized to determine the precise skin entry site along the right lower quadrant/right flank. Utilizing trocar technique and a 6 [place]oese safety [employer] Systemsesis catheter system, the catheter was placed in to the ascites collection. Aspiration yielded 15 L of opaque, light yellow ascites fluid which is typical for the patient. A separate 60 mL sample was sent for further laboratory assessment. The patient was stable throughout the procedure and remained stable upon discharge from Department of Radiology. The patient was sent to the emergency room for critically elevated potassium levels which was inciden tally found on laboratory assessment. IMPRESSION: Successful therapeutic and diagnostic paracentesis under ultrasound guidance. 15 L of typical, light yellow opaque fluid removed. Laboratory assessment pending.
[2023-05-07 05:44] LABS: Appearance,BF Cloudy (Clear)
== END 2023-05-06 12:15 | disposition home or self-care (01) ==
LOC: RADPROMAIN 08:33
PROVIDERS: ATTEND Internal Medicine Gastroenterology
DX: R18.8 Other ascites (principal)
CPT/HCPCS: 80053; 89050; 85025; 85610; 36415; 49083; P9047

== ENCOUNTER 2023-05-06 12:11 | Inpatient (IN) | payer OTHER ==
[2023-05-06] MEDS ORDERED: SODIUM CHLORIDE 0.9% 1,000 ML IV STA ×2 (12:29→16:13)
--- NOTE | 2023-05-06 12:35 | ED ---
Recheck HPI - General Chief Complaint: Recheck/Abnormal Lab/Rx Stated Complaint: Abn Labs, Low Potassium Time Seen by Provider: 05/06/23 12:24 Source: patient, RN notes reviewed, old records reviewed Mode of arrival: ambulatory Limitations: no limitations - History of Present Illness Initial Comments: This is a 43-year-old male to the emergency department for evaluation today. Patient presents to the ER today for evaluation of outpatient abnormal lab testing, patient's patient's potassium level is 7. Patient has no complaints here in the ER recently had significant paracentesis, feels weak states that that is his baseline. MD Complaint: abnormal lab (Potassium) -: unknown Returns Today for: Called Because of Abnormal Lab/Test Symptoms Since Prior Visit: no new symptoms Associated Symptoms: none Treatments Prior to Arrival: other (0) - Related Data Home Medications Medication Instructions Recorded Confirmed HYDROcodone/APAP 5-325MG [[place] 1 - 2 tab PO Q4HR PRN 05/06/23 05/06/23 5-325] Midodrine HCl [ProAmatine] 10 mg PO TID 05/06/23 05/06/23 Pantoprazole [Protonix] 40 mg PO DAILY 05/06/23 05/06/23 Previous Rx's Medication Instructions Recorded Furosemide [Lasix] 40 mg PO DAILY #30 tablet 03/02/23 HYDROcodone/APAP 10-325MG [[place] 1 tab PO Q4HR PRN 3 Days #18 tab 05/14/23 10-325] Spironolactone [Aldactone] 25 mg PO BID #60 tab 05/14/23 Allergies Allergy/AdvReac Type Severity Reaction Status Date / Time ibuprofen [From Motrin] Allergy Swelling Verified 05/06/23 14:38 Lips naproxen Allergy Swelling Verified 05/06/23 14:38 Lips Review of Systems ROS Statement: Those systems with pertinent positive or pertinent negative responses have been documented in the HPI. ROS Other: All systems not noted in ROS Statement are negative. Past Medical History Past Medical History: Hyperlipidemia, Hypertension, Liver Disease, Pneumonia Additional Past Medical History / Comment(s): Alcoholism, past withdrawals with tremors/diaphoresis, elevated LFTs, alcoholic liver cirrhosis, ascities with paracentesis, severe sepsis/aspiration pneumonia, occasional upper back pain. History of Any Multi-Drug Resistant Organisms: None Reported Past Surgical History: No Surgical Hx Reported Additional Past Surgical History / Comment(s): Pt states he has never had surgery, multi large volume paracentesis weekly Past Anesthesia/Blood Transfusion Reactions: Unable to Obtain Additional Past Anesthesia/Blood Transfusion Reaction / Comment(s): Pt states he has never had surgery. Past Psychological History: Depression, PTSD Smoking Status: Current every day smoker Past Alcohol Use History: None Reported, Abuse Past Drug Use History: None Reported - Past Family History Mother Family Medical History: Cancer Additional Family Medical History / Comment(s): Mother has colon cancer. Father History Unknown: Yes Additional Family Medical History / Comment(s): All pt knows about his father is that he is . General Exam Limitations: altered mental status General appearance: alert, in no apparent distress, anxious, lethargic Head exam: Present: atraumatic, normocephalic, normal inspection Eye exam: Present: normal appearance, PERRL, EOMI. Absent: scleral icterus, conjunctival injection, periorbital swelling ENT exam: Present: normal exam, mucous membranes moist Neck exam: Present: normal inspection. Absent: tenderness, meningismus, lymphadenopathy Respiratory exam: Present: normal lung sounds bilaterally. Absent: respiratory distress, wheezes, rales, rhonchi, stridor Cardiovascular Exam: Present: regular rate, normal rhythm, normal heart sounds. Absent: systolic murmur, diastolic murmur, rubs, gallop, clicks GI/Abdominal exam: Present: soft, normal bowel sounds. Absent: distended, tenderness, guarding, rebound, rigid Extremities exam: Present: normal inspection, full ROM, normal capillary refill. Absent: tenderness, pedal edema, joint swelling, calf tenderness Back exam: Present: normal inspection Neurological exam: Present: alert, oriented X3, CN II-XII intact Psychiatric exam: Present: normal affect, normal mood Skin exam: Present: warm, dry, intact, normal color. Absent: rash Course Vital Signs 05/06/23 05/06/23 05/06/23 12:12 13:30 15:00 Temperature 98.8 F Pulse Rate 61 83 73 Pulse Rate [ Motorcycle Technician ] Respiratory 16 16 15 Rate Blood Pressure 79/34 98/42 95/46 Blood Pressure [Left Arm] Blood Pressure [Right Arm Supine] O2 Sat by Pulse 100 100 Oximetry 05/06/23 05/06/23 05/06/23 17:00 18:00 19:00 Temperature Pulse Rate 80 82 81 Pulse Rate [ Motorcycle Technician ] Respiratory 16 18 14 Rate Blood Pressure 100/41 105/48 96/43 Blood Pressure [Left Arm] Blood Pressure [Right Arm Supine] O2 Sat by Pulse 95 91 L Oximetry 05/06/23 05/07/23 05/07/23 21:20 00:00 05:05 Temperature 98.2 F 98.5 F Pulse Rate 90 Pulse Rate [ 95 82 Motorcycle Technician ] Respiratory 18 19 18 Rate Blood Pressure 115/48 Blood Pressure 103/48 83/50 [Left Arm] Blood Pressure [Right Arm Supine] O2 Sat by Pulse 94 L 98 98 Oximetry 05/07/23 05/07/23 05/07/23 07:43 07:45 11:43 Temperature 97.0 F L Pulse Rate Pulse Rate [ 86 86 72 Motorcycle Technician ] Respiratory 18 18 18 Rate Blood Pressure Blood Pressure 81/32 93/42 [Left Arm] Blood Pressure [Right Arm Supine] O2 Sat by Pulse 100 99 Oximetry 05/07/23 05/07/23 05/07/23 14:00 16:00 20:00 Temperature 97.8 F 97.4 F L Pulse Rate Pulse Rate [ 72 68 78 Motorcycle Technician ] Respiratory 18 18 16 Rate Blood Pressure Blood Pressure 93/37 [Left Arm] Blood Pressure 100/42 [Right Arm Supine] O2 Sat by Pulse 98 100 Oximetry 05/07/23 22:01 Temperature 97.4 F L Pulse Rate 90 Pulse Rate [ Motorcycle Technician ] Respiratory 16 Rate Blood Pressure 115/48 Blood Pressure [Left Arm] Blood Pressure [Right Arm Supine] O2 Sat by Pulse 100 Oximetry - Reevaluation(s) Reevaluation #1: 05/06/23 20:36 Record is reviewed Reevaluation #2: 05/06/23 20:36 Patient symptoms are unchanged here in the ER Reevaluation #3: 05/06/23 20:36 Patient informed results and questions answered Reevaluation #4: 05/06/23 20:04 Was pt. sent in by a medical professional or institution (, PA, BUSINESS ACCOUNT LEADER, urgent care, hospital, or penitentiary...) When possible be specific @ -no Did you speak to anyone other than the patient for history (EMS, parent, family, police, friend...)? What history was obtained from this source @ -no Did you review nursing and triage notes (agree or disagree)? Why? @ -agree Are old charts reviewed (outside hosp., previous admission, EMS record, old EKG, old radiological studies, urgent care reports/EKG's, penitentiary records)? Report findings @ -yes Differential Diagnosis (chest pain, altered mental status, abdominal pain women, abdominal pain men, vaginal bleeding, weakness, fever, dyspnea, syncope, headache, dizziness, GI bleed, back pain, seizure, CVA, palpatations, mental health, musculoskeletal)? @ -prior EKG interpreted by me (3pts min.). @ -yes X-rays interpreted by me (1pt min.). @ -no CT interpreted by me (1pt min.). @ -no U/S interpreted by me (1pt. min.). @ -no What testing was considered but not performed or refused? (CT, X-rays, U/S, labs)? Why? @ -none What meds were considered but not given or refused? Why? @ -none Did you discuss the management of the patient with other professionals ( professionals i.e. , PA, BUSINESS ACCOUNT LEADER, lab, RT, psych nurse, director of social work, construction executive, teacher, head correction officer, case advocate)? Give summary @ -no Was smoking cessation discussed for >3mins.? @ -no Was critical care preformed (if so, how long)? @ -yes31 Were there social determinants of health that impacted care today? How? (Homelessness, low income, unemployed, alcoholism, drug addiction, transportation, low edu. Level, literacy, decrease access to med. care, [facility], rehab)? @ -none Was there de-escalation of care discussed even if they declined (Discuss DNR or withdrawal of care, Hospice)? DNR status @ -no What co-morbidities impacted this encounter? (DM, HTN, Smoking, COPD, CAD, Cancer, CVA, ARF, Chemo, Hep., AIDS, mental health diagnosis, sleep apnea, morbid obesity)? @ -none Was patient admitted / discharged? Hospital course, mention meds given and route, prescriptions, significant lab abnormalities, going to OR and other pertinent info. @ - 43 male to the emergency department for significant lab abnormalities, patient is elevated potassium severe which will need to be admitted and treated with high risk for arrhythmia Undiagnosed new problem with uncertain prognosis? @ -no Drug Therapy requiring intensive monitoring for toxicity (Heparin, Nitro, Insulin, Cardizem)? @ -no Were any procedures done? @ -no Diagnosis/symptom? @ -Hyperkalemia, abdominal cirrhosis and ascites, acute kidney injury Acute, or Chronic, or Acute on Chronic? @ -Acute Uncomplicated (without systemic symptoms) or Complicated (systemic symptoms)? @ -Complicated Side effects of treatment? @ -no Exacerbation, Progression, or Severe Exacerbation? @ -exacerbation Poses a threat to life or bodily function? How? (Chest pain, [place], [place], pneumonia, PE, COPD, DKA, ARF, appy, cholecystitis, CVA, Diverticulitis, Homicidal, Suicidal, threat to staff... and all critical care pts) @ -yes significant arrhythmia and hyperkalemia - Consultations Consultation #1: Spoke with sound who agrees to admit this patient Medical Decision Making - Medical Decision Making 43 male to the emergency department for evaluation. Patient will be admitted for elevated potassium levels, patient does have some T-wave elevation, given treatment for hyperkalemia and will be admitted for further evaluation management elevated potassium, need for dialysis - Lab Data Result diagrams: 05/14/23 06:43 05/14/23 06:47 Lab Results 05/06/23 05/06/23 Range/Units 12:37 12:37 WBC 5.3 (3.8-10.6) k/uL RBC 2.76 L (4.30-5.90) m/uL Hgb 8.3 L (13.0-17.5) gm/dL Hct 25.4 L (39.0-53.0) % MCV 92.0 (80.0-100.0) fL MCH 29.9 (25.0-35.0) pg MCHC 32.5 (31.0-37.0) g/dL RDW 16.8 H (11.5-15.5) % Plt Count 105 L (150-450) k/uL MPV 9.4 Neutrophils % 62 % Lymphocytes % 24 % Monocytes % 7 % Eosinophils % 4 % Basophils % 1 % Neutrophils # 3.3 (1.3-7.7) k/uL Lymphocytes # 1.3 (1.0-4.8) k/uL Monocytes # 0.4 (0-1.0) k/uL Eosinophils # 0.2 (0-0.7) k/uL Basophils # 0.0 (0-0.2) k/uL Hypochromasia Slight Anisocytosis Slight Sodium 130 L (137-145) mmol/L Potassium 7.1 H* (3.5-5.1) mmol/L Chloride 107 (98-107) mmol/L Carbon Dioxide 15 L (22-30) mmol/L Anion Gap 8 mmol/L BUN 34 H (9-20) mg/dL Creatinine 1.46 H (0.66-1.25) mg/dL Est GFR (CKD-EPI)AfAm 68 (>60 ml/min/1.73 sqM) Est GFR (CKD-EPI)NonAf 59 (>60 ml/min/1.73 sqM) Glucose 91 (74-99) mg/dL Calcium 8.7 (8.4-10.2) mg/dL Phosphorus 4.5 (2.5-4.5) mg/dL Magnesium 2.1 (1.6-2.3) mg/dL Total Bilirubin 1.3 (0.2-1.3) mg/dL AST 32 (17-59) U/L ALT 15 (4-49) U/L Alkaline Phosphatase 78 (38-126) U/L Total Protein 6.4 (6.3-8.2) g/dL Albumin 3.4 L (3.5-5.0) g/dL - EKG Data -: EKG Interpreted by Me (EKG is sinus 70 KS 130 QRS 90 QTC 423) Critical Care Time Critical Care Time: Yes Total Critical Care Time: 31 Disposition Clinical Impression: Abdominal pain, Decompensation of cirrhosis of liver, Ascites, Hyperkalemia, Alcoholic cirrhosis of liver with ascites, Acute kidney failure Disposition: ADMITTED IP TO THIS HOSP Condition: Critical Is patient prescribed a controlled substance at d/c from ED?: No Time of Disposition: 16:30
[2023-05-06 13:11] LABS: ALT 15 U/L (4-49); AST 32 U/L (17-59); African American GFR (CKD) 68 (>60 ml/min/1.73 sqM); Albumin 3.4 g/dL (3.5-5.0); Alkaline Phosphatase 78 U/L (38-126); Anion Gap 8 mmol/L; Blood Urea Nitrogen 34 mg/dL (9-20); Calcium 8.7 mg/dL (8.4-10.2); Carbon Dioxide 15 mmol/L (22-30); Chloride 107 mmol/L (98-107); Glucose 91 mg/dL (74-99); Magnesium 2.1 mg/dL (1.6-2.3); Non-African American GFR(CKD) 59 (>60 ml/min/1.73 sqM); Phosphorus 4.5 mg/dL (2.5-4.5); Sodium 130 mmol/L (137-145); Total Bilirubin 1.3 mg/dL (0.2-1.3); Total Protein 6.4 g/dL (6.3-8.2)
[2023-05-06 13:29] LABS: Anisocytosis Slight; Basophils % (A) 1 %; Eosinophils # (A) 0.2 k/uL (0-0.7); Eosinophils % (A) 4 %; HCT 25.4 % (39.0-53.0); HGB 8.3 gm/dL (13.0-17.5); Hypochromasia Slight; Lymphocytes # (A) 1.3 k/uL (1.0-4.8); Lymphocytes % (A) 24 %; MCH 29.9 pg (25.0-35.0); MCHC 32.5 g/dL (31.0-37.0); Mean Platelet Volume 9.4; Monocytes # (A) 0.4 k/uL (0-1.0); Monocytes % (A) 7 %; Neutrophils # (A) 3.3 k/uL (1.3-7.7); Neutrophils % (A) 62 %; Platelet Count 105 k/uL (150-450); RBC 2.76 m/uL (4.30-5.90); RDW 16.8 % (11.5-15.5); WBC 5.3 k/uL (3.8-10.6)
[2023-05-06 13:31] LABS: Potassium 7.1 mmol/L (3.5-5.1)
[2023-05-06] MEDS ORDERED: SODIUM BICARB 8.4% 50 ML SYR (1 MEQ/ML) IV STA ×2 (16:13→16:46)
[2023-05-06] MEDS ORDERED: DEXTROSE 50% SYRINGE 50 ML IVP STA (16:13)
[2023-05-06] MEDS ORDERED: INSULIN REGULAR 100 UNIT/ML VIAL (IV) IV ONE (16:13)
[2023-05-06] MEDS ORDERED: CALCIUM CHLORIDE 0.5 GM in SODIUM CHLORIDE 0.9% 50 ML IVPB ONE (16:13)
[2023-05-06] MEDS ORDERED: SODIUM POLYSTYRENE SULFONATE 15 GM/60 ML BOTTLE PO STA (16:39)
[2023-05-06] MEDS ORDERED: NALOXONE 0.4 MG/ML 1 ML VIAL IV PRN (16:39)
[2023-05-06] MEDS ORDERED: ONDANSETRON 4 MG/2 ML VIAL IVP PRN (16:39)
[2023-05-06] MEDS ORDERED: CALCIUM GLUCONATE IN NACL 2 GM in SALINE 1 100ML.BAG IVPB ONE (16:41)
[2023-05-06] MEDS ORDERED: SODIUM ZIRCONIUM CYCLOSILICATE 10 GM PACKET PO ONE (16:42)
[2023-05-06] MEDS ORDERED: SODIUM CHLORIDE 0.9% 1,000 ML IV SCH (16:45)
[2023-05-06] MEDS ORDERED: DEXTROSE 50% SYRINGE 50 ML IVP PRN ×2 (17:39)
[2023-05-06] MEDS: DEXTROSE 5% IN WATER 1,000 ML with SODIUM BICARB (1 MEQ/ML) 150 ML IV SCH (17:46)
--- NOTE | 2023-05-06 17:47 | P.HPIM ---
History of Present Illness H&P Date: 05/06/23 History of Presenting Illness: Patient is a very pleasant 43-year-old male with a past medical history of alcohol abuse disorder and alcoholic liver cirrhosis. He is very well-known to our service. He currently is under treatment for his advanced cirrhosis and receives weekly paracentesis with most recent paracentesis being completed this morning at 9:30 AM with a documented removal 15 L followed by infusion of 4 bags of 25% albumin. During this visit patient's labs were drawn and patient's potassium resulting elevated at 7.0. Patient was then transferred to the emergency department for evaluation secondary to severe hyperkalemia. Upon arrival to our facility patient underwent full evaluation. Labs upon arrival as follows blood pressure 79/34, heart rate 61, respiratory rate 16, temp 98.8F, and SpO2 of 100% on room air. EKG was completed showing normal sinus rhythm at 70 bpm with significantly peaked T waves. Labs completed and reviewed. CBC showing stable bicytopenia with hemoglobin of 8.3 which is at baseline and platelet count of 105 which is above baseline. BMP showing hyponatremia with sodium of 130, hyperkalemia with potassium of 7.1, chloride of 107, bicarb of 15, anion gap of 8, and acute kidney injury with elevated renal function showing BUN of 34, creatinine 1.46, and GFR 59 with baseline creatinine of 1.0. Magnesium normal findings at 2.1. Liver profile showing hypoalbuminemia with albumin of 3.4. Patient was provided with hyperkalemia cocktail and admitted under our services with consultation to nephrology. He does complains of abdominal pain after paracentesis. No other complaints currently. Review of systems: Pertinent positives and negatives as discussed in HPI, a complete review of systems was performed and all other systems are negative. Physical exam: General: Chronically ill-appearing, emaciated his extremities with distended cirrhotic abdomen Derm: Skin warm and dry, jaundiced Head: Atraumatic, normocephalic and symmetric.Scleral icterus Mouth: no lip lesions, mucus membranes moist Cardiovascular: regular rate and rhythm Lungs: Respirations even, regular, and unlabored on room air with no accessory muscle usage. Abdominal: Soft and distended abdomen with diffuse tenderness upon palpation, no guarding, no appreciable organomegaly Ext: ROM intact. No gross muscle atrophy, no edema, no contractures Neuro: Speech clear, face symmetrical and CN II-XII grossly intact with no noted focal neuro deficits Psych: Alert and oriented to person, place, time, and situation. Appropriate and pleasant affect. Assessment and Plan of Care: Hyperkalemia Non-anion gap metabolic acidosis Acute kidney injury EKG showing normal sinus rhythm at 70 bpm with significantly peaked T waves. Patient to be admitted to stepdown unit with continuous telemetry monitoring. Patient given Hyperkalemia cocktail in the emergency department and we will repeat potassium in [address] additional orders as indicated based upon these findings. Consult placed to nephrology and called and spoke to siding applicator, Dr. An to notify her of critical potassium level and plan of care. Patient given an additional amp of bicarb and started on bicarb infusion. Aldactone held and should be discontinued at time of discharge. Diffuse abdominal pain, rule out SBP Decompensated alcohol liver cirrhosis Right lower lobe consolidation, Pt asymptomatic of respiratory complaints, RLL consolidation likely atelectasis. Hyponatremia secondary to advanced liver cirrhosis with ascites Bicytopenia (anemia and thrombocytopenia) secondary to liver cirrhosis Chronic hypotension, on midodrine 10 mg 3 times daily -Patient is status post large volume paracentesis with removal of 15 L of fluid this morning followed by administration of albumin 25% IVPB 4 bags -Currently reporting diffuse abdominal pain/tenderness, empirically treating for SBP with Rocephin 2 g IVPB daily -Blood cultures ordered -Patient to continue daily home medication regimen with Lasix 40 mg daily and midodrine 10 mg 3 times daily. Spironolactone held secondary to severe hyperkalemia. -Continue GI prophylaxis with Protonix 40 mg twice daily. Physical deconditioning and muscle waisting due to chronic disease, deco mpensated cirrhosis. -Safe and supportive care and assistance as needed. -Fall precautions Data and imaging reviewed: As stated above in HPI. CODE STATUS: Full code DVT prophylaxis: SCDs Discussed with: Patient, social science analyst and RN Anticipated discharge date: clinical course to determine Anticipated discharge place: Patient requesting assistance with placement and rehab stating he is unable to care for self resulting from physical deconditioning and muscle wasting resulting from chronic disease Patient was seen independently by Nurse Practitioner. This document was prepared using [employer] dictation software. Please allow for errors in denture model maker while rare they do occur. Case discussed with Pako Mendoza NP. Sodium bicarb 1 amp X1 now then start dosium bicarb gtt at 130 cc/hr. Monitor cloesly on tele, check for post-void residual Past Medical History Past Medical History: Hyperlipidemia, Hypertension, Liver Disease, Pneumonia Additional Past Medical History / Comment(s): Alcoholism, past withdrawals with tremors/diaphoresis, elevated LFTs, alcoholic liver cirrhosis, ascities with paracentesis, severe sepsis/aspiration pneumonia, occasional upper back pain. History of Any Multi-Drug Resistant Organisms: None Reported Past Surgical History: No Surgical Hx Reported Additional Past Surgical History / Comment(s): Pt states he has never had surgery, multi large volume paracentesis weekly Past Anesthesia/Blood Transfusion Reactions: Unable to Obtain Additional Past Anesthesia/Blood Transfusion Reaction / Comment(s): Pt states he has never had surgery. Past Psychological History: Depression, PTSD Smoking Status: Current every day smoker Past Alcohol Use History: None Reported, Abuse Past Drug Use History: None Reported - Past Family History Mother Family Medical History: Cancer Additional Family Medical History / Comment(s): Mother has colon cancer. Father History Unknown: Yes Additional Family Medical History / Comment(s): All pt knows about his father is that he is . Medications and Allergies Home Medications Medication Instructions Recorded Confirmed Type RX: Furosemide [Lasix] 40 mg PO DAILY #30 tablet 03/02/23 05/06/23 Rx HYDROcodone/APAP 5-325MG [Norton 1 - 2 tab PO Q4HR PRN 05/06/23 05/06/23 History 5-325] Midodrine HCl [ProAmatine] 10 mg PO TID 05/06/23 05/06/23 History RX: Pantoprazole [Protonix] 40 mg PO DAILY 05/06/23 05/06/23 History Spironolactone [Aldactone] 50 mg PO BID 05/06/23 05/06/23 History Allergies Allergy/AdvReac Type Severity Reaction Status Date / Time ibuprofen [From Motrin] Allergy Swelling Verified 05/06/23 14:38 Lips naproxen Allergy Swelling Verified 05/06/23 14:38 Lips Physical Exam Osteopathic Statement: *. No significant issues noted on an osteopathic structural exam other than those noted in the History and Physical/Consult. Vitals: Vital Signs Temp Pulse Resp BP Pulse Ox 05/06/23 15:00 73 15 95/46 05/06/23 13:30 83 16 98/42 100 05/06/23 12:12 98.8 F 61 16 79/34 100 Intake and Output 05/06/23 05/06/23 05/06/23 06:59 14:59 22:59 Other: Weight 72.121 kg Results CBC & Chem 7: 05/06/23 12:37 05/06/23 12:37 Labs: Abnormal Lab Results - Last 24 Hours (Table) 05/06/23 05/06/23 Range/Units 12:37 12:37 RBC 2.76 L (4.30-5.90) m/uL Hgb 8.3 L (13.0-17.5) gm/dL Hct 25.4 L (39.0-53.0) % RDW 16.8 H (11.5-15.5) % Plt Count 105 L (150-450) k/uL Sodium 130 L (137-145) mmol/L Potassium 7.1 H* (3.5-5.1) mmol/L Carbon Dioxide 15 L (22-30) mmol/L BUN 34 H (9-20) mg/dL Creatinine 1.46 H (0.66-1.25) mg/dL Albumin 3.4 L (3.5-5.0) g/dL
[2023-05-06] MEDS: MIDODRINE 5 MG TAB PO SCH (18:07)
[2023-05-07] MEDS ORDERED: INSULIN REGULAR 100 UNIT/ML VIAL (IV) IV ONE (00:45)
[2023-05-07] MEDS ORDERED: DEXTROSE 50% SYRINGE 50 ML IVP STA (00:45)
[2023-05-07] MEDS: DEXTROSE 5% IN WATER 1,000 ML with SODIUM BICARB (1 MEQ/ML) 150 ML IV SCH ×2 (01:32→12:29)
[2023-05-07 01:38] LABS: Glucose,Whole Blood 134 mg/dL (70-110)
[2023-05-07 05:03] LABS: Glucose,Whole Blood 153 mg/dL (70-110)
[2023-05-07] MEDS: MIDODRINE 5 MG TAB PO SCH ×3 (06:10→17:15)
[2023-05-07] MEDS: PANTOPRAZOLE 40 MG TABLET PO SCH (06:10)
[2023-05-07 07:36] LABS: Anisocytosis Slight; HCT 21.8 % (39.0-53.0); HGB 7.1 gm/dL (13.0-17.5); MCH 30.2 pg (25.0-35.0); MCHC 32.8 g/dL (31.0-37.0); MCV 92.3 fL (80.0-100.0); Mean Platelet Volume 10.9; RBC 2.37 m/uL (4.30-5.90); RDW 16.7 % (11.5-15.5); WBC 4.2 k/uL (3.8-10.6)
[2023-05-07 07:47] LABS: ALT 13 U/L (4-49); AST 25 U/L (17-59); African American GFR (CKD) 47 (>60 ml/min/1.73 sqM); Albumin 2.4 g/dL (3.5-5.0); Alkaline Phosphatase 66 U/L (38-126); Anion Gap 8 mmol/L; Blood Urea Nitrogen 37 mg/dL (9-20); Calcium 7.6 mg/dL (8.4-10.2); Carbon Dioxide 25 mmol/L (22-30); Chloride 100 mmol/L (98-107); Glucose 113 mg/dL (74-99); Magnesium 1.8 mg/dL (1.6-2.3); Non-African American GFR(CKD) 40 (>60 ml/min/1.73 sqM); Potassium 4.6 mmol/L (3.5-5.1); Sodium 133 mmol/L (137-145); Total Bilirubin 0.8 mg/dL (0.2-1.3); Total Protein 4.9 g/dL (6.3-8.2)
[2023-05-07] MEDS: HYDROcodone/APAP 5-325MG 1 EACH TAB PO PRN ×3 (08:30→22:22)
[2023-05-07] MEDS ORDERED: FUROSEMIDE 40 MG TAB PO SCH (09:00)
[2023-05-07 09:59] LABS: Platelet Count 73 k/uL (150-450)
[2023-05-07 11:50] LABS: Glucose,Whole Blood 159 mg/dL (70-110)
--- NOTE | 2023-05-07 11:51 | US ---
EXAMINATION TYPE: US kidneys/renal and bladder DATE OF EXAM: 05/07/2023 COMPARISON: CT 10/05/2022; Multiple recent Paracentesis CLINICAL INDICATION: Male, 43 years old with history of telly; patient denies any signs or symptoms at this time EXAM MEASUREMENTS: Right Kidney: 10.5 x 4.7 x 4.9 cm Left Kidney: 10.5 x 6.7 x 4.5 cm Post Void Residual Volume: NA mL Right Kidney: wnl Left Kidney: wnl Bladder: wnl Bilateral Jets seen: Not seen within a 3 minute period Normal Post Void Residual: N IMPRESSION: 1. No acute ultrasound abnormality renal ultrasound. 2. Note is made the ureters and urinary bladder were not identified during the time of observation.
--- NOTE | 2023-05-07 12:46 | P.NPCON ---
History of Present Illness - Reason for Consult hyperkalemia - History of Present Illness Patient is a 43-year-old male with history of chronic liver disease secondary to EtOH abuse. He is usually scheduled for paracentesis once a week. Paracentesis was performed yesterday with 15 L of fluid being removed. Patient received albumin post paracentesis. Labs showed a potassium of 7.0 and therefore patient was admitted. No significant change in urine output. Patient states he drank half a gallon of orange juice the day before. Maintained on Aldactone and Lasix. Serum creatinine is 1.9 from 1.4 yesterday. Previous creatinine has been at 1.3 on 04/22/2023 and as low as 1.0 on 04/15/2023. It appears that patient has episodes of acute kidney injury most likely related to his paracentesis. Blood pressure has been low with systolic in the 80s and as low as 79/34 yesterday afternoon. currently maintained on bicarb drip as CO2 was low at 15 yesterday. she states that he wants to go home. Review of Systems As per HPI Past Medical History Past Medical History: Hyperlipidemia, Hypertension, Liver Disease, Pneumonia Additional Past Medical History / Comment(s): Alcoholism, past withdrawals with tremors/diaphoresis, elevated LFTs, alcoholic liver cirrhosis, ascities with paracentesis, severe sepsis/aspiration pneumonia, occasional upper back pain. History of Any Multi-Drug Resistant Organisms: None Reported Past Surgical History: No Surgical Hx Reported Additional Past Surgical History / Comment(s): Pt states he has never had surgery, multi large volume paracentesis weekly Past Anesthesia/Blood Transfusion Reactions: No Reported Reaction Additional Past Anesthesia/Blood Transfusion Reaction / Comment(s): Pt states he has never had surgery. 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 Smoking Status: Current every day smoker Past Alcohol Use History: None Reported, Abuse Additional Past Alcohol Use History / Comment(s): Pt has hx of alcoholism. He states he quit drinking in Apr 2022 Past Drug Use History: None Reported - Past Family History Mother Family Medical History: Cancer Additional Family Medical History / Comment(s): Mother has colon cancer. Father History Unknown: Yes Additional Family Medical History / Comment(s): All pt knows about his father is that he is . Medications and Allergies Home Medications Medication Instructions Recorded Confirmed Type Furosemide [Lasix] 40 mg PO DAILY #30 tablet 03/02/23 05/06/23 Rx HYDROcodone/APAP 5-325MG [[place]illi[place] 1 - 2 tab PO Q4HR PRN 05/06/23 05/06/23 History 5-325] Midodrine HCl [ProAmatine] 10 mg PO TID 05/06/23 05/06/23 History Pantoprazole [Protonix] 40 mg PO DAILY 05/06/23 05/06/23 History Spironolactone [Aldactone] 50 mg PO BID 05/06/23 05/06/23 History Allergies Allergy/AdvReac Type Severity Reaction Status Date / Time ibuprofen [From Motrin] Allergy Swelling Verified 05/06/23 14:38 Lips naproxen Allergy Swelling Verified 05/06/23 14:38 Lips Physical Exam Vitals: Vital Signs Temp Pulse Pulse Resp BP BP Pulse Ox 05/07/23 11:43 72 18 93/42 99 05/07/23 07:45 86 18 05/07/23 07:43 97.0 F L 86 18 81/32 100 05/07/23 05:05 98.5 F 82 18 83/50 98 05/07/23 00:00 98.2 F 95 19 103/48 98 05/06/23 21:20 90 18 115/48 94 L 05/06/23 19:00 81 14 96/43 91 L 05/06/23 18:00 82 18 105/48 05/06/23 17:00 80 16 100/41 95 05/06/23 15:00 73 15 95/46 05/06/23 13:30 83 16 98/42 100 Intake and Output 05/06/23 05/07/23 05/07/23 22:59 06:59 14:59 Output Total 400 Balance -400 Output: Urine 400 Other: Voiding Method Urinal Urinal Weight 72.121 kg Patient is awake, comfortable, no acute distress Examination of the heart S1 and S2 Examination of the lungs decreased breath sounds at the bases Abdomen is soft distended nontender Examination of lower extremities shows edema. 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 Acute kidney injury nonoliguric secondary to hypotension associated with recent paracentesis yesterday. 2. Metabolic acidosis currently maintained on bicarb drip. Patient denies any significant diarrhea. Most likely associated with acute kidney injury. 3. Severe hyperkalemia associated with acute kidney injury, increase potassium intake in diet and history of use of Aldactone, currently improved 4. Possible right lower lobe pneumonia 5. Liver cirrhosis associated with EtOH abuse needing paracentesis once a week Plan: DC bicarb drip Switch to Ringer lactate Patient is advised to avoid excessive intake of high potassium-containing foods. He can likely resume Aldactone upon discharge depending on serum potassium level Continue with midodrine Repeat labs in a.m. Thank you for the consultation. We will continue to follow the patient with you during his hospitalization.
[2023-05-07 12:52] LABS: Appearance,Urine Clear (Clear); Bilirubin,Urine Negative (Negative); Blood,Urine Negative (Negative); Color,Urine Yellow; Glucose,Urine (UA) Negative (Negative); Hyaline Casts,Urine 10 /lpf (0-2); Ketones,Urine Trace (Negative); Leukocyte Esterase,Urine Negative (Negative); Mucus,Urine Rare /hpf; Nitrite,Urine Negative (Negative); PH, Urine 5.5 (5.0-8.0); Protein,Urine 1+ (Negative); RBC,Urine 1 /hpf (0-5); Specific Gravity,Urine 1.027 (1.001-1.035); Squamous Epithelial Cell,Urine <1 /hpf (0-4); WBC,Urine 3 /hpf (0-5)
--- NOTE | 2023-05-07 16:45 | P.PN ---
Subjective Progress Note Date: 05/07/23 Patient is a 43-year-old male well-known to our service from multiple admissions with a history of alcoholic cirrhosis requiring frequent paracentesis, prior hypertension, and dyslipidemia who presented to the emergency department due to critical potassium level of 7 being found after receiving paracentesis with removal of 15 L of fluid and infusional 4 bags of 25% albumin. In the emergency department he underwent an extensive evaluation. On arrival his vital signs are within normal for the patient with a blood pressure of 79/34. EKG demonstrated normal sinus rhythm at 70 with significantly peaked T waves. Labs were remarkable for potassium 7.1, bicarb 15, sodium 130, hemoglobin 8.3, and platelets of 105. In the emergency department he received sodium bicarb, insulin, dextrose, and calcium gluconate. Arrangements were made for admission. Patient was given additional sodium bicarb, Lokelma, and was started on a bicarb drip. Nephrology was consulted. Patient's Aldactone was held. Patient seen and examined at bedside. He is feeling somewhat better than yesterday. He continues to have some abdominal pain. Denies any nausea or vomiting. Denies any constipation. He is frustrated that he is back in the hospital because he has been compliant with his medications. Vital signs reviewed General: [nontoxic], [no distress], [appears at stated age] Cardiovascular: [S1S2 reg], [no murmur], [positive posterior tibial pulse bilateral], Lungs: [CTA bilateral], [no rhonchi, no rales] , [no accessory muscle use] Abdominal: [soft], [ +tender to palpation diffusely], [no guarding], + distended Ext: [no gross muscle atrophy], [no edema b/l lower extremities], [no contractu res] Neuro: [ CN II-XI grossly intact], [no focal neuro deficits] Psych: [Alert], [oriented], [appropriate affect] Assessment/Plan: Acute kidney injury Hyperkalemia, resolved Non-anion gap metabolic acidosis, resolved - I Decreased D5W with 3 A of bicarb to 50 cc/hr this morning, nephrology rev iewed and disconitnued and started the patient on lactated Ringer's @ 75 cc/hr -Nephrology consult reviewed: DC bicarb drip and switch to lactated Ringer's. -Rocephin 2 g IV piggyback every 24 hours -Midodrine 10 mg p.o. 3 times daily -Aldactone held - consult dietitian for info about low K+ diet Diffuse abdominal pain, rule out SBP Decompensated alcohol liver cirrhosis Right lower lobe consolidation, probable atelectasis. Hyponatremia secondary to cirrhosis with ascites Anemia and thrombocytopenia, secondary to liver cirrhosis Chronic hypotension -s/plarge volume paracentesis with removal of 15 L, given albumin 25% IVPB 4 bags 05/06/23 - SBP prophylaxis with Rocephin 2 g IVPB daily -Blood cultures ordered - midodrine 10 mg 3 times daily. -Spironolactone held secondary to severe hyperkalemia. Physical deconditioning and muscle wasting due to chronic disease, decompensated cirrhosis. Imaging: None new Data Review: Labs reviewed from today include CBC and CMP, magnesium which are remarkable for hemoglobin 7.1, platelets 73, sodium 133, BUN 37, creatinine 1.98 DVT prophylaxis: SCDs Anticipated discharge date: ini 24-[address]: home This dictation was prepared using [email or web address] voice recognition software. Though every attempt is made to correct errors during dictation some may still exist. Objective - Vital Signs Vital signs: Vital Signs Temp 98.5 F 05/07/23 05:05 Pulse 82 05/07/23 05:05 Resp 18 05/07/23 05:05 BP 83/50 05/07/23 05:05 Pulse Ox 98 05/07/23 05:05 FiO2 Intake & Output 05/06/23 05/07/23 05/07/23 18:59 06:59 18:59 Output Total 400 Balance -400 Weight 72.121 kg 72.121 kg Output: Urine 400 Other: Voiding Method Urinal - Labs CBC & Chem 7: 05/07/23 07:19 05/07/23 07:19 Labs: Abnormal Lab Results - Last 24 Hours (Table) 05/06/23 05/06/23 05/06/23 Range/Units 12:37 12:37 19:57 RBC 2.76 L (4.30-5.90) m/uL Hgb 8.3 L (13.0-17.5) gm/dL Hct 25.4 L (39.0-53.0) % RDW 16.8 H (11.5-15.5) % Plt Count 105 L (150-450) k/uL Sodium 130 L (137-145) mmol/L Potassium 7.1 H* 5.8 H (3.5-5.1) mmol/L Carbon Dioxide 15 L (22-30) mmol/L BUN 34 H (9-20) mg/dL Creatinine 1.46 H (0.66-1.25) mg/dL POC Glucose (mg/dL) (70-110) mg/dL Albumin 3.4 L (3.5-5.0) g/dL 05/07/23 05/07/23 Range/Units 01:35 05:02 RBC (4.30-5.90) m/uL Hgb (13.0-17.5) gm/dL Hct (39.0-53.0) % RDW (11.5-15.5) % Plt Count (150-450) k/uL Sodium (137-145) mmol/L Potassium (3.5-5.1) mmol/L Carbon Dioxide (22-30) mmol/L BUN (9-20) mg/dL Creatinine (0.66-1.25) mg/dL POC Glucose (mg/dL) 134 H 153 H (70-110) mg/dL Albumin (3.5-5.0) g/dL
[2023-05-07] MEDS: MORPHINE SULFATE 4 MG/ML SYRINGE IV PRN (20:40)
[2023-05-07] MEDS: LACTATED RINGERS 1,000 ML IV SCH (21:30)
[2023-05-08] MEDS: MORPHINE SULFATE 4 MG/ML SYRINGE IV PRN (03:26)
[2023-05-08] MEDS: PANTOPRAZOLE 40 MG TABLET PO SCH (06:33)
[2023-05-08] MEDS: MIDODRINE 5 MG TAB PO SCH ×3 (06:33→17:05)
[2023-05-08 08:11] LABS: Anisocytosis Slight; HCT 23.2 % (39.0-53.0); HGB 7.5 gm/dL (13.0-17.5); Hypochromasia Slight; MCH 30.4 pg (25.0-35.0); MCHC 32.4 g/dL (31.0-37.0); MCV 93.7 fL (80.0-100.0); RBC 2.47 m/uL (4.30-5.90); RDW 16.9 % (11.5-15.5); WBC 4.5 k/uL (3.8-10.6)
[2023-05-08 08:15] LABS: Platelet Count 74 k/uL (150-450)
[2023-05-08 08:24] LABS: ALT 14 U/L (4-49); AST 31 U/L (17-59); African American GFR (CKD) 33 (>60 ml/min/1.73 sqM); Albumin 2.4 g/dL (3.5-5.0); Alkaline Phosphatase 60 U/L (38-126); Anion Gap 7 mmol/L; Blood Urea Nitrogen 46 mg/dL (9-20); Calcium 7.8 mg/dL (8.4-10.2); Carbon Dioxide 23 mmol/L (22-30); Chloride 102 mmol/L (98-107); Glucose 101 mg/dL (74-99); Magnesium 1.8 mg/dL (1.6-2.3); Non-African American GFR(CKD) 28 (>60 ml/min/1.73 sqM); Potassium 4.8 mmol/L (3.5-5.1); Sodium 132 mmol/L (137-145); Total Bilirubin 0.8 mg/dL (0.2-1.3); Total Protein 4.9 g/dL (6.3-8.2)
--- NOTE | 2023-05-08 12:26 | P.PN ---
Subjective Patient is seen for follow-up for acute kidney injury and hyperkalemia. Serum potassium has decreased to 4.8 today. Creatinine however increased to 2.6. Patient states he has been voiding. Blood pressure remains on the lower side. Patient is maintained on IV fluids. No major complaints today Objective - Vital Signs Vital signs: Vital Signs Temp 98.0 F 05/08/23 08:47 Pulse 76 05/08/23 08:51 Resp 16 05/08/23 08:51 BP 84/41 05/08/23 08:47 Pulse Ox 99 05/08/23 08:47 FiO2 Intake & Output 05/07/23 05/08/23 05/08/23 18:59 06:59 18:59 Output Total 300 Balance -300 Output: Urine 300 Other: Voiding Method Urinal Urinal Urinal # Voids 2 - Exam Patient is awake, comfortable, no acute distress Examination of the heart S1 and S2 Examination of the lungs decreased breath sounds at the bases Abdomen is soft distended nontender Examination of lower extremities shows edema. 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 - Labs CBC & Chem 7: 05/08/23 07:42 05/08/23 07:42 Labs: Abnormal Lab Results - Last 24 Hours (Table) 05/07/23 05/08/23 05/08/23 Range/Units 12:34 07:42 07:42 RBC 2.47 L (4.30-5.90) m/uL Hgb 7.5 L (13.0-17.5) gm/dL Hct 23.2 L (39.0-53.0) % RDW 16.9 H (11.5-15.5) % Plt Count 74 L (150-450) k/uL Sodium 132 L (137-145) mmol/L BUN 46 H (9-20) mg/dL Creatinine 2.66 H (0.66-1.25) mg/dL Glucose 101 H (74-99) mg/dL Calcium 7.8 L (8.4-10.2) mg/dL Total Protein 4.9 L (6.3-8.2) g/dL Albumin 2.4 L (3.5-5.0) g/dL Urine Protein 1+ H (Negative) Urine Ketones Trace H (Negative) Hyaline Casts 10 H (0-2) /lpf Urine Mucus Rare H (None) /hpf Microbiology - Last 24 Hours (Table) 05/06/23 17:50 Blood Culture - Preliminary Blood 05/06/23 18:05 Blood Culture - Preliminary Blood Assessment and Plan Assessment: 1. Acute kidney injury nonoliguric secondary to hypotension associated with recent large volume paracentesis of about 15 L 2. Metabolic acidosis currently maintained on bicarb drip. Patient denies any significant diarrhea. Most likely associated with acute kidney injury. 3. Severe hyperkalemia associated with acute kidney injury, increase potassium intake in diet and history of use of Aldactone, currently improved 4. Possible right lower lobe pneumonia 5. Liver cirrhosis associated with EtOH abuse needing paracentesis once a week Plan: Continue with IV fluids Repeat labs in a.m. Continue to hold diuretics Continue with empiric antibiotics
[2023-05-08] MEDS: HYDROcodone/APAP 5-325MG 1 EACH TAB PO PRN ×2 (12:57→19:58)
[2023-05-08] MEDS: LACTATED RINGERS 1,000 ML IV SCH ×2 (12:58→17:12)
--- NOTE | 2023-05-08 16:04 | P.PN ---
Subjective Progress Note Date: 05/08/23 (delayed charting seen at 0915) Patient is a 43-year-old male well-known to our service from multiple admissions with a history of alcoholic cirrhosis requiring frequent paracentesis, prior hypertension, and dyslipidemia who presented to the emergency department due to critical potassium level of 7 being found after receiving paracentesis with removal of 15 L of fluid and infusional 4 bags of 25% albumin. In the emergency department he underwent an extensive evaluation. On arrival his vital signs are within normal for the patient with a blood pressure of 79/34. EKG demonstrated normal sinus rhythm at 70 with significantly peaked T waves. Labs were remarkable for potassium 7.1, bicarb 15, sodium 130, hemoglobin 8.3, and platelets of 105. In the emergency department he received sodium bicarb, insulin, dextrose, and calcium gluconate. Arrangements were made for admission. Patient was given additional sodium bicarb, Lokelma, and was started on a bicarb drip. Nephrology was consulted. Patient's Aldactone was held. Patient seen and examined at bedside. He reports feeling very tired today. His abdominal pain is getting slightly better. Denies any nausea or vomiting. He i s wondering how his kidneys can be worsening but yet he feels okay. We went over this etiology. Vital signs reviewed General: Nontoxic, no distress, appears older than stated age Cardiovascular: S1S2 reg, no murmur, positive posterior tibial pulse bilateral, Lungs: Decreased bs bilateral, no rhonchi, no rales, no accessory muscle use Abdominal: Soft, +tender to palpation diffusely, no guarding, + distended Ext: No gross muscle atrophy, no edema b/l lower extremities, no contractures Neuro: CN II-XI grossly intact, no focal neuro deficits Psych: Alert, oriented, appropriate affect Assessment/Plan: Acute kidney injury secondary to fluid shift from recent large-volume paracentesis Hyperkalemia, resolved -- due to dietary indiscretion with aldactone Non-anion gap metabolic acidosis, resolved -lactated Ringer's @ 75 cc/hr -Nephrology note reviewed: Continue with IV fluids, repeat labs in a.m., hold diuretics -Midodrine 10 mg p.o. 3 times daily -Aldactone and Lasix held -Dietitian recs - Renal US normal Diffuse abdominal pain, rule out SBP Decompensated alcohol liver cirrhosis Right lower lobe consolidation, probable atelectasis. Hyponatremia secondary to cirrhosis with ascites Anemia and thrombocytopenia, secondary to liver cirrhosis Chronic hypotension -s/p large volume paracentesis with removal of 15 L, given albumin 25% IVPB 4 bags 05/06/23 - SBP prophylaxis with Rocephin 2 g IVPB daily - Blood cultures ordered - midodrine 10 mg 3 times daily. -Spironolactone held secondary to severe hyperkalemia. Physical deconditioning and muscle wasting due to chronic disease, decompensated cirrhosis. Imaging: Renal ultrasound: No acute abnormalities, no renal jets or bladder were seen during this time. Data Review: Labs reviewed from today include CBC and complete metabolic profile which are remarkable for hemoglobin 7.5, platelets 74, sodium 132, BUN 46, creatinine 2.66. DVT prophylaxis: SCDs Anticipated discharge date: pending clinical course Anticipated discharge place: home This dictation was prepared using [employer] voice recognition software. Though every attempt is made to correct errors during dictation some may still exist. Objective - Vital Signs Vital signs: Vital Signs Temp 98.5 F 05/08/23 15:13 Pulse 81 05/08/23 15:13 Resp 16 05/08/23 15:13 BP 92/38 05/08/23 15:13 Pulse Ox 99 05/08/23 15:13 FiO2 Intake & Output 05/07/23 05/08/23 05/08/23 18:59 06:59 18:59 Intake Total 350 Output Total 300 Balance -300 350 Intake: Oral 350 Output: Urine 300 Other: Voiding Method Urinal Urinal Urinal # Voids 2 - Labs CBC & Chem 7: 05/08/23 07:42 05/08/23 07:42 Labs: Abnormal Lab Results - Last 24 Hours (Table) 05/08/23 05/08/23 Range/Units 07:42 07:42 RBC 2.47 L (4.30-5.90) m/uL Hgb 7.5 L (13.0-17.5) gm/dL Hct 23.2 L (39.0-53.0) % RDW 16.9 H (11.5-15.5) % Plt Count 74 L (150-450) k/uL Sodium 132 L (137-145) mmol/L BUN 46 H (9-20) mg/dL Creatinine 2.66 H (0.66-1.25) mg/dL Glucose 101 H (74-99) mg/dL Calcium 7.8 L (8.4-10.2) mg/dL Total Protein 4.9 L (6.3-8.2) g/dL Albumin 2.4 L (3.5-5.0) g/dL Microbiology - Last 24 Hours (Table) 05/06/23 17:50 Blood Culture - Preliminary Blood 05/06/23 18:05 Blood Culture - Preliminary Blood
[2023-05-09] MEDS: HYDROcodone/APAP 5-325MG 1 EACH TAB PO PRN ×3 (02:17→21:34)
[2023-05-09] MEDS: LACTATED RINGERS 1,000 ML IV SCH ×2 (02:17→20:12)
[2023-05-09] MEDS: MIDODRINE 5 MG TAB PO SCH ×3 (06:18→16:52)
[2023-05-09] MEDS: PANTOPRAZOLE 40 MG TABLET PO SCH (06:19)
--- NOTE | 2023-05-09 10:41 | P.PN ---
Subjective Patient is seen for follow-up for acute kidney injury and hyperkalemia. Serum potassium has decreased to 4.8 Creatinine however increased to 2.6. Labs pending from today Blood pressure remains on the lower side. Patient is maintained on IV fluids. No major complaints today Objective - Vital Signs Vital signs: Vital Signs Temp 97.9 F 05/09/23 08:00 Pulse 70 05/09/23 08:00 Resp 20 05/09/23 08:00 BP 93/42 05/09/23 08:00 Pulse Ox 100 05/09/23 08:00 FiO2 Intake & Output 05/08/23 05/09/23 05/09/23 18:59 06:59 18:59 Intake Total 590 240 Output Total 300 200 Balance 290 -200 240 Intake: Oral 590 240 Output: Urine 300 200 Other: Voiding Method Urinal Urinal Urinal # Voids 1 - Exam Patient is awake, comfortable, no acute distress Examination of the heart S1 and S2 Examination of the lungs decreased breath sounds at the bases Abdomen is soft distended nontender Examination of lower extremities shows edema. 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 Acute kidney injury nonoliguric secondary to hypotension associated with recent large volume paracentesis of about 15 L 2. Metabolic acidosis , status post bicarb drip 3. Severe hyperkalemia associated with acute kidney injury, increase potassium intake in diet and history of use of Aldactone, currently improved 4. Possible right lower lobe pneumonia 5. Liver cirrhosis associated with EtOH abuse needing paracentesis once a week Plan: Continue with IV fluids Continue to hold diuretics Continue with empiric antibiotics
[2023-05-09 12:54] LABS: Anisocytosis Slight; HCT 21.9 % (39.0-53.0); HGB 7.2 gm/dL (13.0-17.5); Hypochromasia Slight; MCH 30.3 pg (25.0-35.0); MCHC 32.7 g/dL (31.0-37.0); MCV 92.5 fL (80.0-100.0); Mean Platelet Volume 10.7; RBC 2.37 m/uL (4.30-5.90); RDW 17.1 % (11.5-15.5); WBC 4.2 k/uL (3.8-10.6)
[2023-05-09 13:00] LABS: Platelet Count 71 k/uL (150-450)
[2023-05-09 13:06] LABS: ALT 15 U/L (4-49); AST 31 U/L (17-59); African American GFR (CKD) 28 (>60 ml/min/1.73 sqM); Albumin 2.3 g/dL (3.5-5.0); Alkaline Phosphatase 64 U/L (38-126); Anion Gap 5 mmol/L; Blood Urea Nitrogen 48 mg/dL (9-20); Calcium 7.9 mg/dL (8.4-10.2); Carbon Dioxide 22 mmol/L (22-30); Chloride 104 mmol/L (98-107); Glucose 91 mg/dL (74-99); Magnesium 1.8 mg/dL (1.6-2.3); Non-African American GFR(CKD) 24 (>60 ml/min/1.73 sqM); Phosphorus 5.6 mg/dL (2.5-4.5); Potassium 4.8 mmol/L (3.5-5.1); Sodium 131 mmol/L (137-145); Total Bilirubin 0.6 mg/dL (0.2-1.3); Total Protein 4.9 g/dL (6.3-8.2)
--- NOTE | 2023-05-09 14:23 | P.PN ---
Subjective Progress Note Date: 05/09/23 Hospital course: Patient is a very pleasant 43-year-old male with a past medical history of alcohol abuse disorder and alcoholic liver cirrhosis. He is very well-known to our service. He currently is under treatment for his advanced cirrhosis and receives weekly paracentesis. Patient was transferred to the emergency department on 05/06/23 after completion of his outpatient paracentesis secondary to findings of severe hyperkalemia. Upon arrival to our facility patient underwent full evaluation. Vital signs upon arrival as follows blood pressure 79/34, heart rate 61, respiratory rate 16, temp 98.8F, and SpO2 of 100% on room air. EKG was completed showing normal sinus rhythm at 70 bpm with significantly peaked T waves. Labs completed and reviewed. CBC showing stable bicytopenia with hemoglobin of 8.3 which is at baseline and platelet count of 105 which is above baseline. BMP showing hyponatremia with sodium of 130, hyperkalemia with potassium of 7.1, chloride of 107, bicarb of 15, anion gap of 8, and acute kidney injury with elevated renal function showing BUN of 34, creatinine 1.46, and GFR 59 with baseline creatinine of 1.0. Magnesium normal findings at 2.1. Liver profile showing hypoalbuminemia with albumin of 3.4. Patient was provided with hyperkalemia cocktail and admitted under our services with consultation to nephrology. Patient's renal function persistently worsening, diuretics were discontinued and patient was started on IV fluid hydration and nephrology. Despite treatment patient's renal function continued to worsening consistent with hepatorenal syndrome. Patient started on octreotide and albumin in addition to his midodrine for treatment of hepatorenal syndrome. Physical exam: Patient seen and fully evaluated at bedside this morning. Patient reports he does feel well this morning. States he had some abdominal discomfort but was medicated with [place] and currently feeling well. Patient denies having any headache, lightheadedness, dizziness, chest pain, palpitations, or shortness of breath. General: Chronically ill-appearing, emaciated his extremities with distended cirrhotic abdomen Derm: Skin warm and dry, jaundiced Head: Atraumatic, normocephalic and symmetric.Scleral icterus Mouth: no lip lesions, mucus membranes moist Cardiovascular: regular rate and rhythm Lungs: Respirations even, regular, and unlabored on room air with no accessory muscle usage. Abdominal: Soft and distended abdomen with diffuse tenderness upon palpation, no guarding, no appreciable organomegaly Ext: ROM intact. No gross muscle atrophy, no edema, no contractures Neuro: Speech clear, face symmetrical and CN II-XII grossly intact with no noted focal neuro deficits Psych: Alert and oriented to person, place, time, and situation. Appropriate and pleasant affect. Assessment and Plan of Care: Hepatorenal Syndrome Acute kidney injury secondary to fluid shift from recent large-volume paracentesis Hyperkalemia, resolved -- due to dietary indiscretion with aldactone Non-anion gap metabolic acidosis, resolved -Continue with IV fluid hydration with lactated Ringer's @ 75 cc/hr -Patient to continue midodrine 10 mg 3 times daily and orders placed for octreotide 100 mcg subcutaneously every 8 hours and a loading dose of albumin 75 g followed by 25 g daily. -Nephrology following and discussed plan of care she was in agreement with starting patient on above medications for hepatorenal syndrome, . -Gastroenterology services return this week will consult on Thursday -Continue to hold diuretics: Aldactone and Lasix -Renal US Negative for acute process. Diffuse abdominal pain, rule out SBP Decompensated alcohol liver cirrhosis Right lower lobe consolidation, probable atelectasis. Hyponatremia secondary to cirrhosis with ascites Anemia and thrombocytopenia, secondary to decompensated liver cirrhosis Chronic hypotension, Secondary to decompensated liver cirrhosis -Status post large volume paracentesis with removal of 15 L, given albumin 25% IVPB 4 bags 05/06/23 -SBP prophylaxis with Rocephin 2 g IVPB daily -Blood cultures showing no growth to date -Continue midodrine 10 mg 3 times daily. -Spironolactone held secondary to severe hyperkalemia. Physical deconditioning and muscle wasting due to chronic disease, decompensated cirrhosis. Data and imaging reviewed: Morning labs reviewed. CBC showing persistent but stable bicytopenia with hemoglobin of 7.2 and platelet count of 71. BMP revealing worsening renal function with BUN 48, creatinine 3.02, and GFR of 24. Vital signs reviewed. Blood pressure 93/42, heart rate 70, respiratory rate 20, temp 97.9F, and SpO2 of 100% on room air. CODE STATUS: Full code DVT prophylaxis: SCDs Discussed with: Anticipated discharge date: clinical course to determine Anticipated discharge place: Home Patient was seen independently by Nurse Practitioner. This document was prepared using [employer] dictation software. Please allow for errors in certified medical aide while rare they do occur. Pako Mendoza E TAILER rendered care for this patient independently, reviewed the findings and plan as documented in the note above. I did not physically speak with or examine the patient on this date. Objective - Vital Signs Vital signs: Vital Signs Temp 97.9 F 05/09/23 08:00 Pulse 70 05/09/23 08:00 Resp 20 05/09/23 08:00 BP 93/42 05/09/23 08:00 Pulse Ox 100 05/09/23 08:00 FiO2 Intake & Output 05/08/23 05/09/23 05/09/23 18:59 06:59 18:59 Intake Total 590 240 Output Total 300 200 Balance 290 -200 240 Intake: Oral 590 240 Output: Urine 300 200 Other: Voiding Method Urinal Urinal # Voids 1 - Labs CBC & Chem 7: 05/09/23 12:12 05/09/23 12:12 Labs: Microbiology - Last 24 Hours (Table) 05/06/23 17:50 Blood Culture - Preliminary Blood 05/06/23 18:05 Blood Culture - Preliminary Blood
[2023-05-09 15:08] LABS: INR 1.4 (<1.2); Prothrombin Time 14.4 sec (10.0-12.5)
[2023-05-09] MEDS: ALBUMIN HUMAN 25% 50 ML in EMPTY BAG 1 BAG IVPB SCH ×6 (15:11→22:56)
[2023-05-09] MEDS: OCTREOTIDE 100 MCG/ML INJ SQ SCH (16:52)
[2023-05-10] MEDS: OCTREOTIDE 100 MCG/ML INJ SQ SCH ×4 (01:53→22:18)
[2023-05-10] MEDS: HYDROcodone/APAP 5-325MG 1 EACH TAB PO PRN ×4 (06:28→21:46)
[2023-05-10] MEDS: LACTATED RINGERS 1,000 ML IV SCH ×2 (06:28→18:09)
[2023-05-10] MEDS: MIDODRINE 5 MG TAB PO SCH ×3 (06:28→16:39)
[2023-05-10] MEDS: PANTOPRAZOLE 40 MG TABLET PO SCH (06:28)
[2023-05-10] MEDS: ALBUMIN HUMAN 25% 50 ML in EMPTY BAG 1 BAG IVPB SCH ×2 (09:40→10:52)
--- NOTE | 2023-05-10 11:20 | P.PN ---
Subjective Patient is seen for follow-up for acute kidney injury and hyperkalemia. Serum potassium has decreased to 4.8 Renal function has worsened. 24 hour urine output documented at about 500 mL Blood pressure remains low and patient is maintained on midodrine. Sandostatin and albumin added for hepatorenal syndrome yesterday. No significant complaints today. Objective - Vital Signs Vital signs: Vital Signs Temp 98 F 05/10/23 08:00 Pulse 69 05/10/23 08:00 Resp 20 05/10/23 08:00 BP 97/38 05/10/23 08:00 Pulse Ox 99 05/10/23 08:44 FiO2 Intake & Output 05/09/23 05/10/23 05/10/23 18:59 06:59 18:59 Intake Total 240 120 Output Total 125 350 200 Balance 115 -350 -80 Intake: Oral 240 120 Output: Urine 125 350 200 Other: Voiding Method Urinal Urinal - Exam Patient is awake, comfortable, no acute distress Examination of the heart S1 and S2 Examination of the lungs decreased breath sounds at the bases Abdomen is soft distended nontender Examination of lower extremities shows trace edema. PAPIER MACHE' MOLDER exam grossly intact - Labs CBC & Chem 7: 05/09/23 12:12 05/09/23 12:12 Labs: Abnormal Lab Results - Last 24 Hours (Table) 05/09/23 05/09/23 05/09/23 Range/Units 12:12 12:12 14:31 RBC 2.37 L (4.30-5.90) m/uL Hgb 7.2 L (13.0-17.5) gm/dL Hct 21.9 L (39.0-53.0) % RDW 17.1 H (11.5-15.5) % Plt Count 71 L (150-450) k/uL PT 14.4 H (10.0-12.5) sec INR 1.4 H (<1.2) Sodium 131 L (137-145) mmol/L BUN 48 H (9-20) mg/dL Creatinine 3.02 H (0.66-1.25) mg/dL Calcium 7.9 L (8.4-10.2) mg/dL Phosphorus 5.6 H (2.5-4.5) mg/dL Total Protein 4.9 L (6.3-8.2) g/dL Albumin 2.3 L (3.5-5.0) g/dL Microbiology - Last 24 Hours (Table) 05/06/23 17:50 Blood Culture - Preliminary Blood 05/06/23 18:05 Blood Culture - Preliminary Blood Assessment and Plan Assessment: 1. Acute kidney injury, nonoliguric secondary to hypotension and hepatorenal syndrome 2. Metabolic acidosis , status post bicarb drip 3. Severe hyperkalemia associated with acute kidney injury, increase potassium intake in diet and history of use of Aldactone, currently improved 4. Possible right lower lobe pneumonia 5. Liver cirrhosis associated with EtOH abuse needing paracentesis once a week Plan: Continue midodrine Sandostatin and albumin Repeat labs in a.m. Accurate I's and O's Overall prognosis is guarded.
[2023-05-10 11:26] LABS: Anisocytosis Slight; HCT 21.8 % (39.0-53.0); HGB 7.1 gm/dL (13.0-17.5); Hypochromasia Moderate; MCH 30.6 pg (25.0-35.0); MCHC 32.4 g/dL (31.0-37.0); MCV 94.7 fL (80.0-100.0); Mean Platelet Volume 9.4; WBC 3.6 k/uL (3.8-10.6)
[2023-05-10 11:35] LABS: Platelet Count 69 k/uL (150-450)
--- NOTE | 2023-05-10 11:36 | P.PN ---
Subjective Progress Note Date: 05/10/23 Hospital course: Patient is a very pleasant 43-year-old male with a past medical history of alcohol abuse disorder and alcoholic liver cirrhosis. He is very well-known to our service. He currently is under treatment for his advanced cirrhosis and receives weekly paracentesis. Patient was transferred to the emergency department on 05/06/23 after completion of his outpatient paracentesis secondary to findings of severe hyperkalemia. Upon arrival to our facility patient underwent full evaluation. Vital signs upon arrival as follows blood pressure 79/34, heart rate 61, respiratory rate 16, temp 98.8F, and SpO2 of 100% on room air. EKG was completed showing normal sinus rhythm at 70 bpm with significantly peaked T waves. Labs completed and reviewed. CBC showing stable bicytopenia with hemoglobin of 8.3 which is at baseline and platelet count of 105 which is above baseline. BMP showing hyponatremia with sodium of 130, hyperkalemia with potassium of 7.1, chloride of 107, bicarb of 15, anion gap of 8, and acute kidney injury with elevated renal function showing BUN of 34, creatinine 1.46, and GFR 59 with baseline creatinine of 1.0. Magnesium normal findings at 2.1. Liver profile showing hypoalbuminemia with albumin of 3.4. Patient was provided with hyperkalemia cocktail and admitted under our services with consultation to nephrology. Patient's renal function persistently worsening, diuretics were discontinued and patient was started on IV fluid hydration and nephrology. Despite treatment patient's renal function continued to worsening consistent with hepatorenal syndrome. Patient was started on octreotide and albumin in addition to his midodrine for treatment of hepatorenal syndrome. Physical exam: Patient seen and fully evaluated at bedside this morning. General: Chronically ill-appearing, emaciated his extremities with distended cirrhotic abdomen Derm: Skin warm and dry, jaundiced Head: Atraumatic, normocephalic and symmetric.Scleral icterus Mouth: no lip lesions, mucus membranes moist Cardiovascular: regular rate and rhythm Lungs: Respirations even, regular, and unlabored on room air with no accessory muscle usage. Abdominal: Soft and distended abdomen with diffuse tenderness upon palpation, no guarding, no appreciable organomegaly Ext: ROM intact. No gross muscle atrophy, no edema, no contractures Neuro: Speech clear, face symmetrical and CN II-XII grossly intact with no noted focal neuro deficits Psych: Alert and oriented to person, place, time, and situation. Appropriate and pleasant affect. Assessment and Plan of Care: Hepatorenal Syndrome Acute kidney injury secondary to fluid shift from recent large-volume paracentesis Oliguria Hyperkalemia, resolved -- due to dietary indiscretion with aldactone Non-anion gap metabolic acidosis, resolved -Continue with IV fluid hydration with lactated Ringer's @ 75 cc/hr -Patient to continue midodrine 10 mg 3 times daily, octreotide 100 mcg subcutaneously every 8 hours, and albumin 25 g daily. -Nephrology following and discussed plan of care she was in agreement with starting patient on above medications for hepatorenal syndrome, . -Gastroenterology services return this week will consult on Thursday -Continue to hold diuretics: Aldactone and Lasix -Renal US Negative for acute process. -Continue strict I's and O's -Patient is oliguric with only 475 mL of urinary output over the past 24 hours. Diffuse abdominal pain, rule out SBP Decompensated alcohol liver cirrhosis Right lower lobe consolidation, probable atelectasis. Hyponatremia secondary to cirrhosis with ascites Bicytopenia with Anemia and Thrombocytopenia, secondary to decompensated liver cirrhosis Chronic hypotension, Secondary to decompensated liver cirrhosis -Status post large volume paracentesis with removal of 15 L, given albumin 25% IVPB 4 bags 05/06/23 -SBP prophylaxis with Rocephin 2 g IVPB daily -Blood cultures showing no growth to date -Continue midodrine 10 mg 3 times daily. -Spironolactone held secondary to severe hyperkalemia. Physical deconditioning and muscle wasting due to chronic disease resulting from decompensated cirrhosis. Data and imaging reviewed: Morning labs pending, labs truly this morning and per documentation in chart lab received at 10:31 AM. Will follow up on labs once available. Vital signs reviewed. Blood pressure 97/38, heart rate 69, respiratory rate 20, temp 98.0F, and SpO2 of 98% on room air. Urinary output is minimal at 475 mL over the past 24 hours. Overall prognosis is poor. CODE STATUS: Full code DVT prophylaxis: SCDs Discussed with: Anticipated discharge date: clinical course to determine Anticipated discharge place: Home Patient was seen independently by Nurse Practitioner. This document was prepared using [employer] dictation software. Please allow for errors in saw tailer while rare they do occur. Pako Reji, CARPET INSTALLATION SPECIALIST rendered care for this patient independently, reviewed the findings and plan as documented in the note above. I did not physically speak with or examine the patient on this date. Objective - Vital Signs Vital signs: Vital Signs Temp 98.5 F 05/10/23 00:00 Pulse 72 05/10/23 04:00 Resp 16 05/10/23 04:00 BP 88/36 05/10/23 04:00 Pulse Ox 100 05/10/23 04:00 FiO2 Intake & Output 05/09/23 05/10/23 05/10/23 18:59 06:59 18:59 Intake Total 240 Output Total 125 350 200 Balance 115 -350 -200 Intake: Oral 240 Output: Urine 125 350 200 Other: Voiding Method Urinal Urinal - Labs CBC & Chem 7: 05/12/23 08:17 05/12/23 08:17 Labs: Abnormal Lab Results - Last 24 Hours (Table) 05/09/23 05/09/23 05/09/23 Range/Units 12:12 12:12 14:31 RBC 2.37 L (4.30-5.90) m/uL Hgb 7.2 L (13.0-17.5) gm/dL Hct 21.9 L (39.0-53.0) % RDW 17.1 H (11.5-15.5) % Plt Count 71 L (150-450) k/uL PT 14.4 H (10.0-12.5) sec INR 1.4 H (<1.2) Sodium 131 L (137-145) mmol/L BUN 48 H (9-20) mg/dL Creatinine 3.02 H (0.66-1.25) mg/dL Calcium 7.9 L (8.4-10.2) mg/dL Phosphorus 5.6 H (2.5-4.5) mg/dL Total Protein 4.9 L (6.3-8.2) g/dL Albumin 2.3 L (3.5-5.0) g/dL Microbiology - Last 24 Hours (Table) 05/06/23 17:50 Blood Culture - Preliminary Blood 05/06/23 18:05 Blood Culture - Preliminary Blood
[2023-05-10 11:49] LABS: ALT 13 U/L (4-49); AST 24 U/L (17-59); African American GFR (CKD) 30 (>60 ml/min/1.73 sqM); Albumin 2.8 g/dL (3.5-5.0); Alkaline Phosphatase 46 U/L (38-126); Blood Urea Nitrogen 50 mg/dL (9-20); Calcium 7.9 mg/dL (8.4-10.2); Carbon Dioxide 19 mmol/L (22-30); Glucose 113 mg/dL (74-99); Magnesium 1.9 mg/dL (1.6-2.3); Non-African American GFR(CKD) 26 (>60 ml/min/1.73 sqM); Total Bilirubin 0.9 mg/dL (0.2-1.3); Total Protein 5.1 g/dL (6.3-8.2)
[2023-05-10 11:54] LABS: Anion Gap 12 mmol/L; Chloride 105 mmol/L (98-107); Potassium 4.4 mmol/L (3.5-5.1); Sodium 136 mmol/L (137-145)
[2023-05-11] MEDS: MIDODRINE 5 MG TAB PO SCH ×5 (06:30→23:31)
[2023-05-11] MEDS: PANTOPRAZOLE 40 MG TABLET PO SCH (06:30)
[2023-05-11 07:40] LABS: Anisocytosis Slight; HCT 22.5 % (39.0-53.0); HGB 7.3 gm/dL (13.0-17.5); Hypochromasia Moderate; MCH 30.7 pg (25.0-35.0); MCHC 32.5 g/dL (31.0-37.0); MCV 94.4 fL (80.0-100.0); Mean Platelet Volume 9.5; RBC 2.38 m/uL (4.30-5.90); RDW 16.8 % (11.5-15.5); WBC 3.7 k/uL (3.8-10.6)
[2023-05-11 07:51] LABS: Platelet Count 82 k/uL (150-450)
--- NOTE | 2023-05-11 08:10 | P.PN ---
Subjective Progress Note Date: 05/11/23 Hospital course: Patient is a very pleasant 43-year-old male with a past medical history of alcohol abuse disorder and alcoholic liver cirrhosis. He is very well-known to our service. He currently is under treatment for his advanced cirrhosis and receives weekly paracentesis. Patient was transferred to the emergency department on 05/06/23 after completion of his outpatient paracentesis secondary to findings of severe hyperkalemia. Upon arrival to our facility patient underwent full evaluation. Vital signs upon arrival as follows blood pressure 79/34, heart rate 61, respiratory rate 16, temp 98.8F, and SpO2 of 100% on room air. EKG was completed showing normal sinus rhythm at 70 bpm with significantly peaked T waves. Labs completed and reviewed. CBC showing stable bicytopenia with hemoglobin of 8.3 which is at baseline and platelet count of 105 which is above baseline. BMP showing hyponatremia with sodium of 130, hyperkalemia with potassium of 7.1, chloride of 107, bicarb of 15, anion gap of 8, and acute kidney injury with elevated renal function showing BUN of 34, creatinine 1.46, and GFR 59 with baseline creatinine of 1.0. Magnesium normal findings at 2.1. Liver profile showing hypoalbuminemia with albumin of 3.4. Patient was provided with hyperkalemia cocktail and admitted under our services with consultation to nephrology. Patient's renal function persistently worsening, diuretics were discontinued and patient was started on IV fluid hydration and nephrology. Despite treatment patient's renal function continued to worsening consistent with hepatorenal syndrome. Patient was started on octreotide and albumin in addition to his midodrine for treatment of hepatorenal syndrome. Physical exam: Patient seen and fully evaluated at bedside this morning. General: Chronically ill-appearing, emaciated his extremities with distended cirrhotic abdomen Derm: Skin warm and dry, jaundiced Head: Atraumatic, normocephalic and symmetric.Scleral icterus Mouth: no lip lesions, mucus membranes moist Cardiovascular: regular rate and rhythm Lungs: Respirations even, regular, and unlabored on room air with no accessory muscle usage. Abdominal: Soft and distended abdomen with diffuse tenderness upon palpation, no guarding, no appreciable organomegaly Ext: ROM intact. No gross muscle atrophy, no edema, no contractures Neuro: Speech clear, face symmetrical and CN II-XII grossly intact with no noted focal neuro deficits Psych: Alert and oriented to person, place, time, and situation. Appropriate and pleasant affect. Assessment and Plan of Care: 05/11/23: Renal function improving after initiation of albumin, Sandostatin, and midodrine. Discussed with warehouse forklift operator. Increased albumin to 50 g daily, midodrine 10 mg 4 times daily, and Sandostatin to 200 g subcu every 8 hours. Added Compazine 10 mg IVP to patient's medication regimen as well Pepcid 40 mg scheduled twice daily as patient reported octreotide causes GI upset not relieved by Zofran. Hepatorenal Syndrome Acute kidney injury secondary to fluid shift from recent large-volume parace ntesis and onset of hepatorenal syndrome Oliguria, resolved after initiating treatment for hepatorenal syndrome. Hyperkalemia, resolved Non-anion gap metabolic acidosis, resolved -Continue with IV fluid hydration with lactated Ringer's @ 50 cc/hr -Midodrine increased to 10 mg 4 times daily, octreotide increased to 200 mcg subcutaneously every 8 hours, and albumin increased to 50 g daily. -Nephrology following and discussed plan of care, in agreement with increasing above medications for hepatorenal syndrome and recommending continued gentle IV fluid hydration with Lactated Ringer's at 50 mL per hour.. -Gastroenterology consulted and discussed plan of care with Gastroenterology CANDLE POURER -Continue to hold diuretics: Aldactone and Lasix -Renal US Negative for acute process. -Continue strict I's and O's -Oliguria has resolved after initiation of treatment for hepatorenal syndrome, patient's documented output over the past 24 hours is 1050 mL. Diffuse abdominal pain, rule out SBP Decompensated alcohol liver cirrhosis Right lower lobe consolidation, probable atelectasis. Hyponatremia secondary to cirrhosis with ascites Pancytopenia, secondary to decompensated liver cirrhosis Chronic hypotension, Secondary to decompensated liver cirrhosis -Status post large volume paracentesis with removal of 15 L, given albumin 25% IVPB 4 bags 05/06/23 -SBP prophylaxis with Rocephin 2 g IVPB daily -Blood cultures showing no growth to date -Continue midodrine 10 mg 3 times daily. -Spironolactone held secondary to severe hyperkalemia. Physical deconditioning and muscle wasting due to chronic disease resulting from decompensated cirrhosis. Data and imaging reviewed: Morning labs reviewed. CBC showing pancytopenia with WBC count of 3.7, hemoglobin 7.3, platelet count of 82. BMP showing hyperchloremia with chloride of 109, hypocarbia with bicarb of 19, an anion gap of 9. Renal function improving with BUN of 46, creatinine 2.11, and GFR of 38. Potassium remained stable at 4.3. Vital signs reviewed. Blood pressure 94/58, heart rate 75, respiratory rate 18, temp 98.8F, SpO2 is 99% on room air. Urinary output increased to 1050 mL over the past 24 hours. Overall prognosis is poor. CODE STATUS: Full code DVT prophylaxis: SCDs Discussed with: Anticipated discharge date: clinical course to determine Anticipated discharge place: Home Patient was seen independently by Nurse Practitioner. This document was prepared using [employer] dictation software. Please allow for errors in top frame maker while rare they do occur. Pako Mendoza NP rendered care for this patient independently, reviewed the findin gs and plan as documented in the note above. I did not physically speak with or examine the patient on this date. Objective - Vital Signs Vital signs: Vital Signs Temp 98.0 F 05/11/23 04:00 Pulse 70 05/11/23 04:00 Resp 19 05/11/23 04:00 BP 89/56 05/11/23 04:00 Pulse Ox 95 05/11/23 04:00 FiO2 Intake & Output 05/10/23 05/11/23 05/11/23 18:59 06:59 18:59 Intake Total 1342.5 Output Total 650 400 Balance 692.5 -400 Intake: Intake, IV Titration 862.5 Amount Albumin Human 25% 50 ml 100 In Empty Bag 1 bag @ 50 mls/hr IVPB DAILY@1000 [facility] Rx#:[id number] Lactated Ringers 1,000 ml 712.5 @ 75 mls/hr IV .[id number] [facility] Rx#:[id number] cefTRIAXone 2 gm In 50 Sodium Chloride 0.9% 50 ml @ 100 mls/hr IVPB Q24HR [facility] Rx#:[id number] Oral 480 Output: Urine 650 400 Other: Voiding Method Urinal - Labs CBC & Chem 7: 05/12/23 08:17 05/12/23 08:17 Labs: Abnormal Lab Results - Last 24 Hours (Table) 05/10/23 05/10/23 Range/Units 10:31 10:31 WBC 3.6 L (3.8-10.6) k/uL RBC 2.30 L (4.30-5.90) m/uL Hgb 7.1 L (13.0-17.5) gm/dL Hct 21.8 L (39.0-53.0) % RDW 17.0 H (11.5-15.5) % Plt Count 69 L (150-450) k/uL Sodium 136 L (137-145) mmol/L Carbon Dioxide 19 L (22-30) mmol/L BUN 50 H (9-20) mg/dL Creatinine 2.85 H (0.66-1.25) mg/dL Glucose 113 H (74-99) mg/dL Calcium 7.9 L (8.4-10.2) mg/dL Total Protein 5.1 L (6.3-8.2) g/dL Albumin 2.8 L (3.5-5.0) g/dL Microbiology - Last 24 Hours (Table) 05/06/23 17:50 Blood Culture - Preliminary Blood 05/06/23 18:05 Blood Culture - Preliminary Blood
[2023-05-11 08:31] LABS: ALT 13 U/L (4-49); AST 27 U/L (17-59); African American GFR (CKD) 43 (>60 ml/min/1.73 sqM); Albumin 2.7 g/dL (3.5-5.0); Alkaline Phosphatase 44 U/L (38-126); Anion Gap 9 mmol/L; Blood Urea Nitrogen 46 mg/dL (9-20); Calcium 8.1 mg/dL (8.4-10.2); Carbon Dioxide 19 mmol/L (22-30); Chloride 109 mmol/L (98-107); Glucose 110 mg/dL (74-99); Magnesium 1.9 mg/dL (1.6-2.3); Non-African American GFR(CKD) 38 (>60 ml/min/1.73 sqM); Sodium 137 mmol/L (137-145); Total Bilirubin 1.1 mg/dL (0.2-1.3)
[2023-05-11] MEDS ORDERED: FAMOTIDINE 20 MG TAB PO SCH (09:00)
[2023-05-11] MEDS: PROCHLORPERAZINE INJ 10 MG/2 ML VIAL IVP PRN ×3 (09:19→23:32)
[2023-05-11] MEDS: OCTREOTIDE 100 MCG/ML INJ SQ SCH ×3 (09:19→23:32)
[2023-05-11] MEDS: NICOTINE 14MG/24HR PATCH TRANSDERM SCH (09:20)
[2023-05-11] MEDS: HYDROcodone/APAP 5-325MG 1 EACH TAB PO PRN ×3 (09:20→23:31)
[2023-05-11] MEDS: ALBUMIN HUMAN 25% 50 ML in EMPTY BAG 1 BAG IVPB SCH ×2 (10:13→11:51)
[2023-05-11] MEDS: LACTATED RINGERS 1,000 ML IV SCH (11:55)
[2023-05-11 12:20] LABS: Potassium 4.3 mmol/L (3.5-5.1)
--- NOTE | 2023-05-11 13:17 | P.PN ---
Subjective Patient is seen in follow-up for acute kidney injury. Renal function better. Receiving IV fluids and albumin. Diuretics held. Oral intake fair. Vital signs are stable. General: No acute distress. HEENT: Head exam is unremarkable. LUNGS: No audible rhonchi or wheezes. HEART: Rate and Rhythm are regular. ABDOMEN: Nontender. No distention. EXTREMITITES: No edema. Objective - Vital Signs Vital signs: Vital Signs Temp 98.8 F 05/11/23 08:00 Pulse 65 05/11/23 12:00 Resp 17 05/11/23 12:00 BP 84/40 05/11/23 12:00 Pulse Ox 94 L 05/11/23 12:00 FiO2 Intake & Output 05/10/23 05/11/23 05/11/23 18:59 06:59 18:59 Intake Total 1342.5 598 Output Total 650 400 Balance 692.5 -400 598 Intake: Intake, IV Titration 862.5 Amount Albumin Human 25% 50 ml 100 In Empty Bag 1 bag @ 50 mls/hr IVPB DAILY@1000 [facility] Rx#:[id number] Lactated Ringers 1,000 ml 712.5 @ 75 mls/hr IV .[id number] [facility] Rx#:[id number] cefTRIAXone 2 gm In 50 Sodium Chloride 0.9% 50 ml @ 100 mls/hr IVPB Q24HR [facility] Rx#:[id number] Oral 480 598 Output: Urine 650 400 Other: Voiding Method Urinal Urinal - Labs CBC & Chem 7: 05/11/23 06:53 05/11/23 06:53 Labs: Abnormal Lab Results - Last 24 Hours (Table) 05/11/23 05/11/23 Range/Units 06:53 06:53 WBC 3.7 L (3.8-10.6) k/uL RBC 2.38 L (4.30-5.90) m/uL Hgb 7.3 L (13.0-17.5) gm/dL Hct 22.5 L (39.0-53.0) % RDW 16.8 H (11.5-15.5) % Plt Count 82 L (150-450) k/uL Chloride 109 H (98-107) mmol/L Carbon Dioxide 19 L (22-30) mmol/L BUN 46 H (9-20) mg/dL Creatinine 2.11 H (0.66-1.25) mg/dL Glucose 110 H (74-99) mg/dL Calcium 8.1 L (8.4-10.2) mg/dL Total Protein 5.0 L (6.3-8.2) g/dL Albumin 2.7 L (3.5-5.0) g/dL Assessment and Plan Plan: Assessment: 1. Acute kidney injury secondary to ATN secondary to hypovolemia from large volume paracentesis. Creatinine peaked at 3.0 to this admission and is 2.11 today. Creatinine is low as 1.01 04/15/2023. 2. Alcohol-induced liver cirrhosis. 3. Ascites status post paracentesis last Thursday with 15 L drained. 4. Pancytopenia. Possibly from chronic alcohol use and liver disease. 5. Hyperkalemia secondary to acute kidney injury and Aldactone. Resolved. Plan: Status post IV albumin completed this morning. Decrease rate of LR to 50 mL an hour. Encouraged oral intake. Repeat labs in the morning.
--- NOTE | 2023-05-11 14:02 | P.CONS ---
History of Present Illness - Reason for Consult Consult date: 05/11/23 Hepatorenal syndrome, liver cirrhosis Requesting physician: Pako Mendoza - Chief Complaint Abnormal labs - History of Present Illness Assessment 43-year-old male with a long-standing history of compensated alcoholic cirrhosis of the liver who presented to the emergency department with an elevated potassium of 7.1. The [facility] follows with [facility], he is currently not following with the [facility]ler [facility] wigs. States that he does have some telehealth appointment with a [facility] through the [facility]. Home diuretics included Lasix 40 mg daily and Aldactone 50 mg by mouth twice a day, he also takes admitted drain 10 mg by mouth 3 times a day. Patient has been hypotensive during this admission, with acute kidney failure, was having decreased urine output however has improved overnight. He denies any abdominal pain, nausea or vomiting. He was started on Rocephin. He is currently getting albumin 50 miles daily, midodrine 10 mg by mouth 4 times a day and was on octreotide 100 g subcu every 8 hours which was discontinued this morning. Today's labs WBC 3.7 hem oglobin 7.3 hematocrit 22.5 platelet count 82,000 sodium 137 potassium currently pending the length 46 creatinine 2.1 total bilirubin 1.1 AST 27 ALT 13 alkaline phosphatase 44 albumin 2.7 Review of Systems REVIEW OF SYSTEMS: CARDIOPULMONARY: No chest pain, shortness of breath. Gastrointestinal: No abdominal pain. No nausea or vomiting. No hematemesis, coffee-ground emesis. No rectal bleeding, or melena. GENITOURINARY: No dysuria or hematuria. MUSCULOSKELETAL: Reports normal range of motion. SKIN: No rashes. No jaundice. ENDOCRINE: No chills, fevers. No excessive weight gain or loss. No polydipsia or polyuria. PSYCHIATRIC: Unremarkable. NEUROLOGY: No change in mental status. Denies dizziness, headache. ENT: Vision unremarkable. CONSTITUTIONAL: No recent weight loss. No fever, chills, night sweats. Past Medical History Past Medical History: Hyperlipidemia, Hypertension, Liver Disease, Pneumonia Additional Past Medical History / Comment(s): Alcoholism, past withdrawals with tremors/diaphoresis, elevated LFTs, alcoholic liver cirrhosis, ascities with paracentesis, severe sepsis/aspiration pneumonia, occasional upper back pain. History of Any Multi-Drug Resistant Organisms: None Reported Past Surgical History: No Surgical Hx Reported Additional Past Surgical History / Comment(s): Pt states he has never had surgery, multi large volume paracentesis weekly Past Anesthesia/Blood Transfusion Reactions: No Reported Reaction Additional Past Anesthesia/Blood Transfusion Reaction / Comm: Pt states he has never had surgery. 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 Smoking Status: Current every day smoker Past Alcohol Use History: None Reported, Abuse Additional Past Alcohol Use History / Comment(s): Pt has hx of alcoholism. He states he quit drinking in Apr 2022 Past Drug Use History: None Reported - Past Family History Mother Family Medical History: Cancer Additional Family Medical History / Comment(s): Mother has colon cancer. Father History Unknown: Yes Additional Family Medical History / Comment(s): All pt knows about his father is that he is . Medications and Allergies Home Medications Medication Instructions Recorded Confirmed Type Furosemide [Lasix] 40 mg PO DAILY #30 tablet 03/02/23 05/06/23 Rx HYDROcodone/APAP 5-325MG [Tyner 1 - 2 tab PO Q4HR PRN 05/06/23 05/06/23 History 5-325] Midodrine HCl [ProAmatine] 10 mg PO TID 05/06/23 05/06/23 History Pantoprazole [Protonix] 40 mg PO DAILY 05/06/23 05/06/23 History Spironolactone [Aldactone] 50 mg PO BID 05/06/23 05/06/23 History Allergies Allergy/AdvReac Type Severity Reaction Status Date / Time ibuprofen [From Motrin] Allergy Swelling Verified 05/06/23 14:38 Lips naproxen Allergy Swelling Verified 05/06/23 14:38 Lips Physical Exam Vitals: Vital Signs Temp Pulse Resp BP Pulse Ox 05/11/23 04:00 98.0 F 70 19 89/56 95 05/11/23 00:00 97.9 F 70 19 92/46 99 05/10/23 20:00 98.1 F 76 18 99/53 98 05/10/23 16:00 98.1 F 71 20 96/50 99 05/10/23 11:28 98 F 72 20 101/42 98 05/10/23 08:44 99 Intake and Output 05/10/23 05/11/23 05/11/23 22:59 06:59 14:59 Intake Total 862.5 Output Total 175 400 Balance 687.5 -400 Intake: Intake, IV Titration 862.5 Amount Albumin Human 25% 50 ml 100 In Empty Bag 1 bag @ 50 mls/hr IVPB DAILY@1000 [facility] Rx#:[id number] Lactated Ringers 1,000 ml 712.5 @ 75 mls/hr IV .[id number] [facility] Rx#:[id number] cefTRIAXone 2 gm In 50 Sodium Chloride 0.9% 50 ml @ 100 mls/hr IVPB Q24HR [facility] Rx#:[id number] Output: Urine 175 400 Other: Voiding Method Urinal Urinal General appearance: The patient is alert, oriented, appears in no acute distress. HET: Head is normocephalic and atraumatic. Conjunctiva pink. Sclera anicteric. Neck: Supple without lymphadenopathy. Trachea midline. Heart: Regular. Lungs: Equal expansion, normal respiratory effort. Abdomen: Soft, nontender, nondistended, umbilical hernia. No guarding or rigidity. Skin: No rashes. No jaundice. Extremities: Normal skin color and turgor. No pedal edema. Neurological: No focal deficits. Alert and oriented x3. Results CBC & Chem 7: 05/11/23 06:53 05/11/23 06:53 Labs: Abnormal Lab Results - Last 24 Hours (Table) 05/10/23 05/10/23 05/11/23 Range/Units 10:31 10:31 06:53 WBC 3.6 L 3.7 L (3.8-10.6) k/uL RBC 2.30 L 2.38 L (4.30-5.90) m/uL Hgb 7.1 L 7.3 L (13.0-17.5) gm/dL Hct 21.8 L 22.5 L (39.0-53.0) % RDW 17.0 H 16.8 H (11.5-15.5) % Plt Count 69 L 82 L (150-450) k/uL Sodium 136 L (137-145) mmol/L Chloride (98-107) mmol/L Carbon Dioxide 19 L (22-30) mmol/L BUN 50 H (9-20) mg/dL Creatinine 2.85 H (0.66-1.25) mg/dL Glucose 113 H (74-99) mg/dL Calcium 7.9 L (8.4-10.2) mg/dL Total Protein 5.1 L (6.3-8.2) g/dL Albumin 2.8 L (3.5-5.0) g/dL 05/11/23 Range/Units 06:53 WBC (3.8-10.6) k/uL RBC (4.30-5.90) m/uL Hgb (13.0-17.5) gm/dL Hct (39.0-53.0) % RDW (11.5-15.5) % Plt Count (150-450) k/uL Sodium (137-145) mmol/L Chloride 109 H (98-107) mmol/L Carbon Dioxide 19 L (22-30) mmol/L BUN 46 H (9-20) mg/dL Creatinine 2.11 H (0.66-1.25) mg/dL Glucose 110 H (74-99) mg/dL Calcium 8.1 L (8.4-10.2) mg/dL Total Protein 5.0 L (6.3-8.2) g/dL Albumin 2.7 L (3.5-5.0) g/dL Microbiology - Last 24 Hours (Table) 05/06/23 17:50 Blood Culture - Preliminary Blood 05/06/23 18:05 Blood Culture - Preliminary Blood Comments: Ultrasound kidney/renal and bladder reports no acute ultrasound abnormality renal ultrasound. Note is made the ureters and urinary bladder were not identified during the time of observation Assessment and Plan (1) Decompensation of cirrhosis of liver Narrative/Plan: 43-year-old male with history of alcohol abuse with known alcoholic liver cirrhosis and decompensated cirrhosis of the liver presented for hyperkalemia. Patient states he has not been following regularly with a [facility] or client service representative. He follows with the [facility]. He has had multiple appointments with Dr. Negron for which he has no showed. He states he has not had any alcohol in over a year. He does state that he has had a total health visit with a [facility] w[facility] sent up from the [facility] And he was told he would need to quit smoking if he was going to be considered for liver transplant. Currently being admitted for hyperkalemia, hepatorenal syndrome. He has been hypotensive on limited drain which has been increased to 1010 mg 4 times a day, he is currently getting albumin daily. Last paracentesis done on 05/06/2023 with 15 L removed. Recommendation is to follow with a client service representative, continue alcohol abstinence, and follow with recommendations from nephrology. Current Visit: Yes Status: Acute Code(s): K72.90 - HEPATIC FAILURE, UNSPECIFIED WITHOUT COMA; K74.60 - UNSPECIFIED CIRRHOSIS OF LIVER SNOMED Code(s): 577639269 (2) Chronic anemia Current Visit: Yes Status: Acute Code(s): D64.9 - ANEMIA, UNSPECIFIED SNOM ED Code(s): 654832930 (3) Pancytopenia Current Visit: Yes Status: Acute Code(s): D61.818 - OTHER PANCYTOPENIA SNOMED Code(s): 999642096 (4) Acute kidney failure Current Visit: Yes Status: Acute Code(s): N17.9 - ACUTE KIDNEY FAILURE, UNSPECIFIED SNOMED Code(s): 46098213 (5) Ascites Current Visit: Yes Status: Acute Code(s): R18.8 - OTHER ASCITES SNOMED Code(s): 871858353 (6) History of alcohol abuse Current Visit: No Status: Acute Code(s): F10.11 - ALCOHOL ABUSE, IN REMISSION SNOMED Code(s): 655910733 (7) Hyperkalemia Narrative/Plan: Improved Current Visit: Yes Status: Acute Code(s): E87.5 - HYPERKALEMIA SNOMED Code(s): 45993215 (8) Hypotension Current Visit: Yes Status: Acute Code(s): I95.9 - HYPOTENSION, UNSPECIFIED SNOMED Code(s): 41010743 Plan: 1. Continue symptomatic and supportive care 2. Renal diet 3. Continue with recommendations from nephrology 4. Discussed with patient importance of medical compliance and following with [facility] 5. Recommend smoking cessation, nicotine patch ordered 6. Continue with alcohol abstinence 7. Hold off on paracentesis for now, plan before discharge. Will need albumin per and post paracentesis Thank you for this consultation, we will continue to follow. Dr. Reinaldo Negron I agree with the dictator's note, documented as a scribe by Zuleyma Arriola.
[2023-05-12] MEDS: FAMOTIDINE 20 MG TAB PO SCH (08:39)
[2023-05-12] MEDS: MIDODRINE 5 MG TAB PO SCH ×4 (08:39→20:57)
[2023-05-12] MEDS: NICOTINE 14MG/24HR PATCH TRANSDERM SCH (08:39)
[2023-05-12] MEDS: HYDROcodone/APAP 5-325MG 1 EACH TAB PO PRN ×3 (08:39→20:57)
[2023-05-12] MEDS: OCTREOTIDE 100 MCG/ML INJ SQ SCH ×3 (08:40→23:23)
[2023-05-12] MEDS: PROCHLORPERAZINE INJ 10 MG/2 ML VIAL IVP PRN ×2 (08:47→16:00)
[2023-05-12 09:30] LABS: Anisocytosis Slight; HCT 23.9 % (39.0-53.0); HGB 7.7 gm/dL (13.0-17.5); Hypochromasia Moderate; MCH 30.6 pg (25.0-35.0); MCHC 32.2 g/dL (31.0-37.0); Mean Platelet Volume 10.5; RBC 2.51 m/uL (4.30-5.90); RDW 16.8 % (11.5-15.5); WBC 3.8 k/uL (3.8-10.6)
[2023-05-12 09:41] LABS: Platelet Count 69 k/uL (150-450)
[2023-05-12 10:11] LABS: ALT 13 U/L (4-49); AST 25 U/L (17-59); African American GFR (CKD) 43 (>60 ml/min/1.73 sqM); Albumin 2.7 g/dL (3.5-5.0); Alkaline Phosphatase 49 U/L (38-126); Anion Gap 8 mmol/L; Blood Urea Nitrogen 41 mg/dL (9-20); Carbon Dioxide 19 mmol/L (22-30); Chloride 110 mmol/L (98-107); Glucose 93 mg/dL (74-99); Magnesium 1.9 mg/dL (1.6-2.3); Non-African American GFR(CKD) 38 (>60 ml/min/1.73 sqM); Sodium 137 mmol/L (137-145); Total Bilirubin 1.3 mg/dL (0.2-1.3)
[2023-05-12 10:58] LABS: Potassium 4.3 mmol/L (3.5-5.1)
--- NOTE | 2023-05-12 11:51 | P.PN ---
Subjective Patient is seen in follow-up for acute kidney injury. Renal function stable. Receiving IV fluids and albumin. Diuretics held. Oral intake fair. Vital signs are stable. General: No acute distress. HEENT: Head exam is unremarkable. LUNGS: No audible rhonchi or wheezes. HEART: Rate and Rhythm are regular. ABDOMEN: Nontender. No distention. EXTREMITITES: No edema. Objective - Vital Signs Vital signs: Vital Signs Temp 97.9 F 05/12/23 08:40 Pulse 68 05/12/23 08:40 Resp 18 05/12/23 08:40 BP 86/47 05/12/23 08:40 Pulse Ox 95 05/12/23 08:40 FiO2 Intake & Output 05/11/23 05/12/23 05/12/23 18:59 06:59 18:59 Intake Total 716 Output Total 300 Balance 716 -300 Intake: Oral 716 Output: Urine 300 Other: Voiding Method Urinal Urinal Urinal - Labs CBC & Chem 7: 05/12/23 08:17 05/12/23 08:17 Labs: Abnormal Lab Results - Last 24 Hours (Table) 05/12/23 05/12/23 Range/Units 08:17 08:17 RBC 2.51 L (4.30-5.90) m/uL Hgb 7.7 L (13.0-17.5) gm/dL Hct 23.9 L (39.0-53.0) % RDW 16.8 H (11.5-15.5) % Plt Count 69 L (150-450) k/uL Chloride 110 H (98-107) mmol/L Carbon Dioxide 19 L (22-30) mmol/L BUN 41 H (9-20) mg/dL Creatinine 2.11 H (0.66-1.25) mg/dL Calcium 8.0 L (8.4-10.2) mg/dL Total Protein 5.0 L (6.3-8.2) g/dL Albumin 2.7 L (3.5-5.0) g/dL Microbiology - Last 24 Hours (Table) 05/06/23 17:50 Blood Culture - Final Blood 05/06/23 18:05 Blood Culture - Final Blood Assessment and Plan Plan: Assessment: 1. Acute kidney injury secondary to ATN secondary to hypovolemia from large volume paracentesis. Creatinine peaked at 3.0 to this admission and is stable a t 2.11 today. Creatinine is low as 1.01 04/15/2023. 2. Alcohol-induced liver cirrhosis. 3. Ascites status post paracentesis last Thursday with 15 L drained. 4. Pancytopenia. Possibly from chronic alcohol use and liver disease. 5. Hyperkalemia secondary to acute kidney injury and Aldactone. Resolved. Plan: Stop IV albumin. Maintain gentle IV hydration for another day. Encouraged oral intake. Repeat labs in the morning. Check iron studies. Resume diuretics in the next 24-48 hours.
--- NOTE | 2023-05-12 13:08 | P.PN ---
Subjective Progress Note Date: 05/12/23 Principal diagnosis: Decompensated cirrhosis of the liver This is a 43-year-old male with a long-standing history of compensated alcoholic cirrhosis of the liver who presented to the emergency department with an elevated potassium of 7.1. The patient follows with the [facility], he is currently not following with the ict support and test engineers. States that he does have some telehealth appointment with a ict support and test engineers through the [facility]. Home diuretics included Lasix 40 mg daily and Aldactone 50 mg by mouth twice a day, he also takes admitted drain 10 mg by mouth 3 times a day. Patient has been hypotensive during this admission, with acute kidney failure, was having decreased urine output however has improved overnight. He denies any abdominal pain, nausea or vomiting. He was started on Rocephin. He is currently getting albumin 50 miles daily, midodrine 10 mg by mouth 4 times a day and was on octreotide 100 g subcu every 8 hours which was discontinued this morning. Today's labs WBC 3.7 hemoglobin 7.3 hematocrit 22.5 platelet count 82,000 sodium 137 potassium currently pending the length 46 creatinine 2.1 total bilirubin 1.1 AST 27 ALT 13 alkaline phosphatase 44 albumin 2.7 05/12/2023 Patient seen and examined today as a follow-up. He states he is feeling better. He is declining his nicotine patch. Patient remains hypotensive with blood pressures in the upper 80s/40s-50s. WBC 3.8, hemoglobin 7.7, platelet count 69,000. Sodium 137, potassium 4.3 BUN 41, creatinine 2.11. No other acute changes through the night. Objective - Vital Signs Vital signs: Vital Signs Temp 97.9 F 05/12/23 04:00 Pulse 60 05/12/23 04:00 Resp 19 05/12/23 04:00 BP 89/57 05/12/23 04:00 Pulse Ox 96 05/12/23 04:00 FiO2 Intake & Output 05/11/23 05/12/23 05/12/23 18:59 06:59 18:59 Intake Total 716 Output Total 300 Balance 716 -300 Intake: Oral 716 Output: Urine 300 Other: Voiding Method Urinal Urinal - Exam General appearance: The patient is alert, oriented, appears in no acute distress. HET: Head is normocephalic and atraumatic. Conjunctiva pink. Sclera anicteric. Neck: Supple without lymphadenopathy. Abdomen: Soft, nontender, mildly distended with ascites, umbilical hernia. No guarding or rigidity. Extremities: Normal skin color and turgor. No pedal edema Skin: No rashes, no jaundice Neurological: No focal deficits. Alert and oriented. - Labs CBC & Chem 7: 05/12/23 08:17 05/12/23 08:17 Labs: Microbiology - Last 24 Hours (Table) 05/06/23 17:50 Blood Culture - Final Blood 05/06/23 18:05 Blood Culture - Final Blood Assessment and Plan (1) Decompensation of cirrhosis of liver Narrative/Plan: 43-year-old male with history of alcohol abuse with known alcoholic liver cirrhosis and decompensated cirrhosis of the liver presented for hyperkalemia. Patient states he has not been following regularly with a ict support and test engineers or color artist. He follows with the [facility]. He has had multiple appointments with Dr. Negron for which he has no showed. He states he has not had any alcohol in over a year. He does state that he has had a total health visit with a ict support and test engineers sent up from the [facility] And he was told he would need to quit smoking if he was going to be considered for liver transplant. Currently being admitted for hyperkalemia, hepatorenal syndrome. He has been hypotensive on limited drain which has been increased to 1010 mg 4 times a day, he is currently getting albumin daily. Last paracentesis done on 05/06/2023 with 15 L removed. Recommendation is to follow with a color artist, continue alcohol abstinence, and follow with recommendations from nephrology. Current Visit: Yes Status: Acute Code(s): K72.90 - HEPATIC FAILURE, UNSPECIFIED WITHOUT COMA; K74.60 - UNSPECIFIED CIRRHOSIS OF LIVER SNOMED Code(s): 022743265 (2) Chronic anemia Current Visit: Yes Status: Acute Code(s): D64.9 - ANEMIA, UNSPECIFIED SNOMED Code(s): 148181907 (3) Pancytopenia Current Visit: Yes Status: Acute Code(s): D61.818 - OTHER PANCYTOPENIA SNOMED Code(s): 404091574 (4) Acute kidney failure Narrative/Plan: Nephrology recommends discontinuing IV albumin. They anticipate being able to resume diuretics within the next 24-48 hours. Current Visit: Yes Status: Acute Code(s): N17.9 - ACUTE KIDNEY FAILURE, UNSPECIFIED SNOMED Code(s): 14759334 (5) Ascites Current Visit: Yes Status: Acute Code(s): R18.8 - OTHER ASCITES SNOMED Code(s): 873312321 (6) History of alcohol abuse Current Visit: No Status: Acute Code(s): F10.11 - ALCOHOL ABUSE, IN REMISSION SNOMED Code(s): 370442826 (7) Hyperkalemia Narrative/Plan: Improved Current Visit: Yes Status: Acute Code(s): E87.5 - HYPERKALEMIA SNOMED Code(s): 85548922 (8) Hypotension Current Visit: Yes Status: Acute Code(s): I95.9 - HYPOTENSION, UNSPECIFIED SNOMED Code(s): 83128263 Plan: 1. Continue symptomatic and supportive care 2. Renal diet 3. Continue with recommendations from nephrology 4. Discussed with patient importance of medical compliance and following with ict support and test engineers[facility] 5. Recommend smoking cessation, nicotine patch ordered 6. Continue with alcohol abstinence 7. Hold off on paracentesis for now, plan before discharge. Will need albumin per and post paracentesis Thank you for this consultation, we will continue to follow. Dr. Reinaldo Negron I agree with the dictator's note, documented as a scribe by Zuleyma Arriola.
[2023-05-12 14:35] VITALS: BMI 21.5
--- NOTE | 2023-05-12 14:44 | P.PN ---
Subjective Progress Note Date: 05/12/23 Hospital course: Patient is a very pleasant 43-year-old male with a past medical history of alcohol abuse disorder and alcoholic liver cirrhosis. He is very well-known to our service. He currently is under treatment for his advanced cirrhosis and receives weekly paracentesis. Patient was transferred to the emergency department on 05/06/23 after completion of his outpatient paracentesis secondary to findings of severe hyperkalemia. Upon arrival to our facility patient underwent full evaluation. Vital signs upon arrival as follows blood pressure 79/34, heart rate 61, respiratory rate 16, temp 98.8F, and SpO2 of 100% on room air. EKG was completed showing normal sinus rhythm at 70 bpm with significantly peaked T waves. Labs completed and reviewed. CBC showing stable bicytopenia with hemoglobin of 8.3 which is at baseline and platelet count of 105 which is above baseline. BMP showing hyponatremia with sodium of 130, hyperkalemia with potassium of 7.1, chloride of 107, bicarb of 15, anion gap of 8, and acute kidney injury with elevated renal function showing BUN of 34, creatinine 1.46, and GFR 59 with baseline creatinine of 1.0. Magnesium normal findings at 2.1. Liver profile showing hypoalbuminemia with albumin of 3.4. Patient was provided with hyperkalemia cocktail and admitted under our services with consultation to nephrology. Patient's renal function persistently worsening, diuretics were discontinued and patient was started on IV fluid hydration and nephrology. Despite treatment patient's renal function continued to worsening consistent with hepatorenal syndrome. Patient was started on octreotide and albumin in addition to his midodrine for treatment of hepatorenal syndrome. Physical exam: Patient seen and fully evaluated at bedside this morning. He reports he is feeling better. He states he is no longer having GI upset from octreotide. General: Chronically ill-appearing, emaciated his extremities with distended cirrhotic abdomen Derm: Skin warm and dry, jaundiced Head: Atraumatic, normocephalic and symmetric.Scleral icterus Mouth: no lip lesions, mucus membranes moist Cardiovascular: regular rate and rhythm Lungs: Respirations even, regular, and unlabored on room air with no accessory muscle usage. Abdominal: Soft and distended abdomen with diffuse tenderness upon palpation, no guarding, no appreciable organomegaly Ext: ROM intact. No gross muscle atrophy, no edema, no contractures Neuro: Speech clear, face symmetrical and CN II-XII grossly intact with no noted focal neuro deficits Psych: Alert and oriented to person, place, time, and situation. Appropriate and pleasant affect. Assessment and Plan of Care: Hepatorenal Syndrome Acute kidney injury secondary to fluid shift from recent large-volume paracentesis and onset of hepatorenal syndrome Oliguria Hyperkalemia, resolved Non-anion gap metabolic acidosis, resolved -Continue with IV fluid hydration with lactated Ringer's @ 50 cc/hr -Midodrine increased to 10 mg 4 times daily, octreotide increased to 200 mcg subcutaneously every 8 hours, and albumin increased to 50 g daily. -Nephrology following and discussed plan of care, in agreement with the plan of care and discontinued lactated Ringer's this morning.. -Gastroenterology following and discussed plan of care with Gastroenterology [employer] BPM DEVELOPER, dictating patient will likely need to be scheduled for paracentesis prior to discharge. -Continue to hold diuretics: Aldactone and Lasix -Renal US was Negative for acute process. -Continue strict I's and O's -Documented urinary output over the past 24 hours is only 300 mL. Diffuse abdominal pain, rule out SBP Decompensated alcohol liver cirrhosis Right lower lobe consolidation, probable atelectasis. Hyponatremia secondary to cirrhosis with ascites Bycytopenia, secondary to decompensated liver cirrhosis Chronic hypotension, Secondary to decompensated liver cirrhosis -Status post large volume paracentesis with removal of 15 L, given albumin 25% IVPB 4 bags 05/06/23 -Patient completed 7 day course of IV antibiotics with Rocephin. -Blood cultures negative. -Continue midodrine 10 mg 4 times daily. -Spironolactone held secondary to severe hyperkalemia. Physical deconditioning and muscle wasting due to chronic disease resulting from decompensated cirrhosis. Data and imaging reviewed: Labs reviewed. CBC showing bicytopenia with hemoglobin of 7.7 and platelet count is 69. BMP showing hyperchloremia with chloride of 110, hypocarbia with bicarb of 19, anion gap of 8, elevated BUN of 41, and creatinine of 2.11 with GFR of 38. Vital signs reviewed. Blood pressure 86/47, heart rate 68, respiratory rate 18, temp 97.9F, SpO2 of 95% on room air. Overall prognosis is poor. CODE STATUS: Full code DVT prophylaxis: SCDs Discussed with: Anticipated discharge date: clinical course to determine Anticipated discharge place: Home Patient was seen independently by Nurse Practitioner. This document was prepared using [employer] dictation software. Please allow for er rors in supervisor paste mixing while rare they do occur. Pako Mendoza NP rendered care for this patient independently, reviewed the findings and plan as documented in the note above. I did not physically speak with or examine the patient on this date. Objective - Vital Signs Vital signs: Vital Signs Temp 97.9 F 05/12/23 04:00 Pulse 60 05/12/23 04:00 Resp 19 05/12/23 04:00 BP 89/57 05/12/23 04:00 Pulse Ox 96 05/12/23 04:00 FiO2 Intake & Output 05/11/23 05/12/23 05/12/23 18:59 06:59 18:59 Intake Total 716 Output Total 300 Balance 716 -300 Intake: Oral 716 Output: Urine 300 Other: Voiding Method Urinal Urinal - Labs CBC & Chem 7: 05/12/23 08:17 05/12/23 08:17 Labs: Abnormal Lab Results - Last 24 Hours (Table) 05/11/23 Range/Units 06:53 Chloride 109 H (98-107) mmol/L Carbon Dioxide 19 L (22-30) mmol/L BUN 46 H (9-20) mg/dL Creatinine 2.11 H (0.66-1.25) mg/dL Glucose 110 H (74-99) mg/dL Calcium 8.1 L (8.4-10.2) mg/dL Total Protein 5.0 L (6.3-8.2) g/dL Albumin 2.7 L (3.5-5.0) g/dL Microbiology - Last 24 Hours (Table) 05/06/23 17:50 Blood Culture - Final Blood 05/06/23 18:05 Blood Culture - Final Blood
[2023-05-12 19:04] LABS: % Iron Saturation 28.5 (15.00-50.00); Ferritin 24.4 ng/mL (22.0-322.0)
[2023-05-12] MEDS: LACTATED RINGERS 1,000 ML IV SCH (19:28)
[2023-05-13] MEDS: HYDROcodone/APAP 5-325MG 1 EACH TAB PO PRN ×5 (00:06→21:02)
[2023-05-13] MEDS: LACTATED RINGERS 1,000 ML IV SCH (03:38)
[2023-05-13] MEDS: FAMOTIDINE 20 MG TAB PO SCH (08:58)
[2023-05-13] MEDS: PROCHLORPERAZINE INJ 10 MG/2 ML VIAL IVP PRN (08:59)
[2023-05-13] MEDS: NICOTINE 14MG/24HR PATCH TRANSDERM SCH (08:59)
[2023-05-13] MEDS: MIDODRINE 5 MG TAB PO SCH ×4 (08:59→20:33)
[2023-05-13] MEDS: OCTREOTIDE 100 MCG/ML INJ SQ SCH ×3 (08:59→23:35)
[2023-05-13 09:53] LABS: Anisocytosis Slight; HCT 25.7 % (39.0-53.0); Hypochromasia Marked; MCH 30.7 pg (25.0-35.0); MCHC 31.2 g/dL (31.0-37.0); MCV 98.3 fL (80.0-100.0); Macrocytosis Slight; RBC 2.62 m/uL (4.30-5.90); WBC 4.3 k/uL (3.8-10.6)
[2023-05-13 10:04] LABS: Platelet Count 79 k/uL (150-450)
--- NOTE | 2023-05-13 11:21 | P.PN ---
Subjective Patient is seen in follow-up for acute kidney injury. Renal function stable As of yesterday. RReceiving IV. Diuretics held. Oral intake fair. Vital signs are stable. General: No acute distress. HEENT: Head exam is unremarkable. LUNGS: No audible rhonchi or wheezes. HEART: Rate and Rhythm are regular. ABDOMEN: Distention noted. EXTREMITITES: No edema. Objective - Vital Signs Vital signs: Vital Signs Temp 98.2 F 05/13/23 08:55 Pulse 68 05/13/23 08:55 Resp 18 05/13/23 08:55 BP 91/49 05/13/23 08:55 Pulse Ox 98 05/13/23 08:55 FiO2 Intake & Output 05/12/23 05/13/23 05/13/23 18:59 06:59 18:59 Intake Total 1080 0 Output Total 200 Balance 1080 -200 0 Weight 72.121 kg Intake: Oral 1080 0 Output: Urine 200 Other: Voiding Method Urinal Urinal Urinal - Labs CBC & Chem 7: 05/13/23 08:59 05/12/23 08:17 Labs: Abnormal Lab Results - Last 24 Hours (Table) 05/12/23 05/13/23 Range/Units 08:17 08:59 RBC 2.62 L (4.30-5.90) m/uL Hgb 8.0 L (13.0-17.5) gm/dL Hct 25.7 L (39.0-53.0) % RDW 17.0 H (11.5-15.5) % Plt Count 79 L (150-450) k/uL Iron 55 L (65-175) UG/DL TIBC 193 L (228-460) UG/DL Transferrin 138.0 L (204.0-354.0) mg/dL Assessment and Plan Plan: Assessment: 1. Acute kidney injury secondary to ATN secondary to hypovolemia from large volume paracentesis. Creatinine peaked at 3.0 to this admission and is stable at 2.11 yesterday. Creatinine is low as 1.01 04/15/2023. 2. Alcohol-induced liver cirrhosis. 3. Ascites status post paracentesis last Thursday with 15 L drained. 4. Pancytopenia. Possibly from chronic alcohol use and liver disease. Iron replete. 5. Hyperkalemia secondary to acute kidney injury and Aldactone. Resolved. Plan: Hep-Lock IV fluids. Encouraged oral intake. Add Lasix 40 mg once daily. Add spironolactone 25 mg twice daily. Maintain midodrine. Paracentesis pending. Patient to receive 25 g of albumin preprocedure and another 50 g albumin postprocedure. Discussed with primary team.
[2023-05-13 11:56] LABS: ALT 13 U/L (4-49); AST 27 U/L (17-59); African American GFR (CKD) 55 (>60 ml/min/1.73 sqM); Albumin 2.6 g/dL (3.5-5.0); Alkaline Phosphatase 56 U/L (38-126); Anion Gap 7 mmol/L; Blood Urea Nitrogen 34 mg/dL (9-20); Calcium 7.8 mg/dL (8.4-10.2); Carbon Dioxide 19 mmol/L (22-30); Chloride 111 mmol/L (98-107); Glucose 116 mg/dL (74-99); Magnesium 1.9 mg/dL (1.6-2.3); Non-African American GFR(CKD) 48 (>60 ml/min/1.73 sqM); Potassium 3.7 mmol/L (3.5-5.1); Sodium 137 mmol/L (137-145); Total Bilirubin 0.9 mg/dL (0.2-1.3)
[2023-05-13] MEDS: SPIRONOLACTONE 25 MG TAB PO SCH ×2 (12:06→20:33)
[2023-05-13] MEDS: FUROSEMIDE 40 MG TAB PO SCH (12:06)
--- NOTE | 2023-05-13 14:55 | P.PN ---
Subjective Progress Note Date: 05/13/23 Principal diagnosis: Decompensated cirrhosis of the liver This is a 43-year-old male with a long-standing history of compensated alcoholic cirrhosis of the liver who presented to the emergency department with an elevated potassium of 7.1. The patient follows with the [facility], he is currently not following with the repair coil winder. States that he does have some telehealth appointment with a repair coil winder through the [facility]. Home diuretics included Lasix 40 mg daily and Aldactone 50 mg by mouth twice a day, he also takes admitted drain 10 mg by mouth 3 times a day. Patient has been hypotensive during this admission, with acute kidney failure, was having decreased urine output however has improved overnight. He denies any abdominal pain, nausea or vomiting. He was started on Rocephin. He is currently getting albumin 50 miles daily, midodrine 10 mg by mouth 4 times a day and was on octreotide 100 g subcu every 8 hours which was discontinued this morning. Today's labs WBC 3.7 hemoglobin 7.3 hematocrit 22.5 platelet count 82,000 sodium 137 potassium currently pending the length 46 creatinine 2.1 total bilirubin 1.1 AST 27 ALT 13 alkaline phosphatase 44 albumin 2.7 05/12/2023 Patient seen and examined today as a follow-up. He states he is feeling better. He is declining his nicotine patch. Patient remains hypotensive with blood pressures in the upper 80s/40s-50s. WBC 3.8, hemoglobin 7.7, platelet count 69,000. Sodium 137, potassium 4.3 BUN 41, creatinine 2.11. No other acute changes through the night. 05/13/2023 Patient seen and examined today as a follow-up. Kidney function improving. He is without any acute changes. States that he is just tired. Hemoglobin 8.0, platelet count 79,000. Sodium 137, potassium 3.7 BUN 34, creatinine 1.7 to total bilirubin 0.9, AST 27 ALT 13, alkaline phosphatase 56. Patient been afebrile. He's had good Urine output. Nephrology following with recommendations for resuming Lasix and Aldactone. On, paracentesis ordered for tomorrow. Objective - Vital Signs Vital signs: Vital Signs Temp 98 F 05/13/23 04:00 Pulse 77 05/13/23 04:00 Resp 16 05/13/23 04:00 BP 87/51 05/13/23 04:00 Pulse Ox 95 05/13/23 08:04 FiO2 Intake & Output 05/12/23 05/13/23 05/13/23 18:59 06:59 18:59 Intake Total 1080 Output Total 200 Balance 1080 -200 Weight 72.121 kg Intake: Oral 1080 Output: Urine 200 Other: Voiding Method Urinal Urinal - Exam General appearance: The patient is alert, oriented, appears in no acute distress. HET: Head is normocephalic and atraumatic. Conjunctiva pink. Sclera anicteric. Neck: Supple without lymphadenopathy. Abdomen: Soft, nontender, mildly distended with ascites, umbilical hernia. No guarding or rigidity. Extremities: Normal skin color and turgor. No pedal edema Skin: No rashes, no jaundice Neurological: No focal deficits. Alert and oriented. - Labs CBC & Chem 7: 05/13/23 08:59 05/13/23 08:59 Labs: Abnormal Lab Results - Last 24 Hours (Table) 05/12/23 05/12/23 05/12/23 Range/Units 08:17 08:17 08:17 RBC 2.51 L (4.30-5.90) m/uL Hgb 7.7 L (13.0-17.5) gm/dL Hct 23.9 L (39.0-53.0) % RDW 16.8 H (11.5-15.5) % Plt Count 69 L (150-450) k/uL Chloride 110 H (98-107) mmol/L Carbon Dioxide 19 L (22-30) mmol/L BUN 41 H (9-20) mg/dL Creatinine 2.11 H (0.66-1.25) mg/dL Calcium 8.0 L (8.4-10.2) mg/dL Iron 55 L (65-175) UG/DL TIBC 193 L (228-460) UG/DL Transferrin 138.0 L (204.0-354.0) mg/dL Total Protein 5.0 L (6.3-8.2) g/dL Albumin 2.7 L (3.5-5.0) g/dL Microbiology - Last 24 Hours (Table) 05/06/23 17:50 Blood Culture - Final Blood 05/06/23 18:05 Blood Culture - Final Blood Assessment and Plan (1) Decompensation of cirrhosis of liver Narrative/Plan: 43-year-old male with history of alcohol abuse with known alcoholic liver cirrhosis and decompensated cirrhosis of the liver presented for hyperkalemia. Patient states he has not been following regularly with a repair coil winder or solderer torch. He follows with [facility]. He has had multiple appointments with Dr. Negron for which he has no showed. He states he has not had any alcohol in over a year. He does state that he has had a total health visit with a repair coil winder sent up from the [facility] And he was told he would need to quit smoking if he was going to be considered for liver transplant. Currently being admitted for hyperkalemia, hepatorenal syndrome. He has been hypotensive on limited drain which has been increased to 1010 mg 4 times a day, he is currently getting albumin daily. Last paracentesis done on 05/06/2023 with 15 L removed. Recommendation is to follow with a solderer torch, continue alcohol abstinence, and follow with recommendations from nephrology. Current Visit: Yes Status: Acute Code(s): K72.90 - HEPATIC FAILURE, UNSPECIFIED WITHOUT COMA; K74.60 - UNSPECIFIED CIRRHOSIS OF LIVER SNOMED Code(s): 175674246 (2) Chronic anemia Current Visit: Yes Status: Acute Code(s): D64.9 - ANEMIA, UNSPECIFIED SNOMED Code(s): 690475294 (3) Pancytopenia Current Visit: Yes Status: Acute Code(s): D61.818 - OTHER PANCYTOPENIA SNOMED Code(s): 631505884 (4) Acute kidney failure Narrative/Plan: Nephrology following. Acute kidney failure, improving. Continue with their recommendations. Plan is to resume diuretics today Current Visit: Yes Status: Acute Code(s): N17.9 - ACUTE KIDNEY FAILURE, UNSPECIFIED SNOMED Code(s): 85739681 (5) Ascites Narrative/Plan: Plan is for paracentesis tomorrow. Patient will need albumin pre-and post paracentesis Current Visit: Yes Status: Acute Code(s): R18.8 - OTHER ASCITES SNOMED Code(s): 171982192 (6) History of alcohol abuse Current Visit: No Status: Acute Code(s): F10.11 - ALCOHOL ABUSE, IN REMISSION SNOMED Code(s): 258320899 (7) Hyperkalemia Narrative/Plan: Improved Current Visit: Yes Status: Acute Code(s): E87.5 - HYPERKALEMIA SNOMED Code(s): 58428839 (8) Hypotension Current Visit: Yes Status: Acute Code(s): I95.9 - HYPOTENSION, UNSPECIFIED SNOMED Code(s): 91484149 Plan: 1. Continue symptomatic and supportive care 2. Renal diet 3. Continue with recommendations from nephrology. Diuretics defer to nephrology recommendations 4. Recommend smoking cessation, nicotine patch ordered 5. Continue with alcohol abstinence 6. Patient scheduled for paracentesis tomorrow. Patient will need albumin pre- and post paracentesis. 7. Discussed with patient importance of medical compliance and following with repair coil winder[facility]sol[facility] torch [facility] Thank you for this consultation, we will continue to follow. Dr. Reinaldo Negron I agree with the dictator's note, documented as a scribe by Zuleyma Arriola.
--- NOTE | 2023-05-13 15:31 | P.PN ---
Subjective Progress Note Date: 05/13/23 43-year-old male with a past medical history of alcohol abuse disorder and alcoholic liver cirrhosis. He currently is under treatment for his advanced cirrhosis and receives weekly paracentesis. Patient was transferred to the emergency department on 05/06/23 after completion of his outpatient paracentesis secondary to findings of severe hyperkalemia. Upon arrival to our facility patient underwent full evaluation. Vital signs upon arrival as follows blood pressure 79/34, heart rate 61, respiratory rate 16, temp 98.8F, and SpO2 of 100% on room air. EKG was completed showing normal sinus rhythm at 70 bpm with significantly peaked T waves. CBC showing hemoglobin of 8.3, platelet count of 105. BMP showing sodium of 130, potassium of 7.1, chloride of 107, bicarb of 15, anion gap of 8, BUN of 34, creatinine 1.46, and GFR 59 with baseline creatinine of 1.0. Magnesium normal findings at 2.1. Liver profile albumin of 3.4. Patient was provided with hyperkalemia cocktail and admitted under our services with consultation to nephrology. Patient's renal function persistently worsening, diuretics were discontinued and patient was started on IV fluid hydration and nephrology. Despite treatment patient's renal function continued to worsening consistent with hepatorenal syndrome. Patient was started on octreotide and albumin in addition to his midodrine for treatment of hepatorenal syndrome. 05/13 Patient was seen and examined. CBC Hg 8 Hct 25.7 Plt 79. CMP Cl 111, bicarb 19, BUN 34, Cr 1.72, glu 116, Ca 7.8, alb 2.6. Physical examination: Vital signs reviewed General: Chronically ill-appearing, emaciated his extremities with distended cirrhotic abdomen Derm: Skin warm and dry, jaundiced Head: Atraumatic, normocephalic and symmetric.Scleral icterus Cardiovascular: regular rate and rhythm Lungs: Respirations even, regular, and unlabored on room air with no accessory muscle usage. Abdominal: Soft and distended abdomen with diffuse tenderness upon palpation, no guarding, no appreciable organomegaly Ext: ROM intact. No gross muscle atrophy, no edema, no contractures Neuro: Speech clear, face symmetrical and no noted focal neuro deficits Psych: Alert and oriented to person, place, time, and situation. Appropriate and pleasant affect. Based on my assessment of this patient, this patient meets a moderate complexity level of care. Patient has an acute diagnosis of hepatorenal syndrome poses a threat to life or bodily function. Hepatorenal Syndrome: Lasix 40 mg PO QD. Midodrine 10 mg PO QID. Octreotide 200 mcg SQ TID. Acute kidney injury secondary to fluid shift from recent large-volume paracentesis and onset of hepatorenal syndrome: Discussed with Dr. Howard, DC IVF and start diuretics and aldactone, monitor renal function. Decompensated alcohol liver cirrhosis: IR consulted for paracentesis. Right lower lobe consolidation, probable atelectasis. Bycytopenia, secondary to decompensated liver cirrhosis Chronic hypotension, secondary to decompensated liver cirrhosis CODE STATUS: FULL CODE DVT Prophylaxis: SCD GI Prophylaxis: Pepcid Designated medical POA if patient is not able to make medical decisions for themselves: I have reviewed the following consultant in ergonomics and safety notes: I have reviewed the results of the following tests: CBC, CMP I have ordered the following tests: I have discussed the care of this patient with the following independent historian: ANNIE. I have independently interpreted the following test below: I have discussed the management of this patient with the following physician: Objective - Vital Signs Vital signs: Vital Signs Temp 98.2 F 05/13/23 08:55 Pulse 74 05/13/23 12:05 Resp 17 05/13/23 12:05 BP 91/50 05/13/23 12:05 Pulse Ox 94 L 05/13/23 12:05 FiO2 Intake & Output 05/12/23 05/13/23 05/13/23 18:59 06:59 18:59 Intake Total 1080 456 Output Total 200 Balance 1080 -200 456 Weight 72.121 kg Intake: Oral 1080 456 Output: Urine 200 Other: Voiding Method Urinal Urinal Urinal - Labs CBC & Chem 7: 05/13/23 08:59 05/13/23 08:59 Labs: Abnormal Lab Results - Last 24 Hours (Table) 05/12/23 05/13/23 05/13/23 Range/Units 08:17 08:59 08:59 RBC 2.62 L (4.30-5.90) m/uL Hgb 8.0 L (13.0-17.5) gm/dL Hct 25.7 L (39.0-53.0) % RDW 17.0 H (11.5-15.5) % Plt Count 79 L (150-450) k/uL Chloride 111 H (98-107) mmol/L Carbon Dioxide 19 L (22-30) mmol/L BUN 34 H (9-20) mg/dL Creatinine 1.72 H (0.66-1.25) mg/dL Glucose 116 H (74-99) mg/dL Calcium 7.8 L (8.4-10.2) mg/dL Iron 55 L (65-175) UG/DL TIBC 193 L (228-460) UG/DL Transferrin 138.0 L (204.0-354.0) mg/dL Total Protein 5.0 L (6.3-8.2) g/dL Albumin 2.6 L (3.5-5.0) g/dL
[2023-05-14 07:30] LABS: INR 1.6 (<1.2); Prothrombin Time 16.7 sec (10.0-12.5)
--- NOTE | 2023-05-14 07:38 | P.PN ---
Subjective Progress Note Date: 05/14/23 Principal diagnosis: Decompensated cirrhosis of the liver This is a 43-year-old male with a long-standing history of compensated alcoholic cirrhosis of the liver who presented to the emergency department with an elevated potassium of 7.1. The patient follows with [facility], he is currently not following with the breeding technician. States that he does have some telehealth appointment with a breeding technician through the [facility]. Home diuretics included Lasix 40 mg daily and Aldactone 50 mg by mouth twice a day, he also takes admitted drain 10 mg by mouth 3 times a day. Patient has been hypotensive during this admission, with acute kidney failure, was having decreased urine output however has improved overnight. He denies any abdominal pain, nausea or vomiting. He was started on Rocephin. He is currently getting albumin 50 miles daily, midodrine 10 mg by mouth 4 times a day and was on octreotide 100 g subcu every 8 hours which was discontinued this morning. Today's labs WBC 3.7 hemoglobin 7.3 hematocrit 22.5 platelet count 82,000 sodium 137 potassium currently pending the length 46 creatinine 2.1 total bilirubin 1.1 AST 27 ALT 13 alkaline phosphatase 44 albumin 2.7 05/12/2023 Patient seen and examined today as a follow-up. He states he is feeling better. He is declining his nicotine patch. Patient remains hypotensive with blood pressures in the upper 80s/40s-50s. WBC 3.8, hemoglobin 7.7, platelet count 69,000. Sodium 137, potassium 4.3 BUN 41, creatinine 2.11. No other acute changes through the night. 05/13/2023 Patient seen and examined today as a follow-up. Kidney function improving. He is without any acute changes. States that he is just tired. Hemoglobin 8.0, platelet count 79,000. Sodium 137, potassium 3.7 BUN 34, creatinine 1.7 to total bilirubin 0.9, AST 27 ALT 13, alkaline phosphatase 56. Patient been afebrile. He's had good Urine output. Nephrology following with recommendations for resuming Lasix and Aldactone. On, paracentesis ordered for tomorrow. 05/14/2023 Patient is seen and examined today as a follow-up. He is scheduled by the primary medical team to undergo paracentesis. He was restarted on Aldactone 25 mg twice a day and Lasix 40 mg daily by nephrology. He remains on octreotide per recommendations from nephrology. Patient denies any acute changes. Denies nausea, vomiting, or abdominal pain. He has been afebrile. Objective - Vital Signs Vital signs: Vital Signs Temp 97.9 F 05/14/23 03:21 Pulse 73 05/14/23 03:21 Resp 16 05/14/23 03:21 BP 91/51 05/14/23 03:21 Pulse Ox 97 05/14/23 03:21 FiO2 Intake & Output 05/13/23 05/14/23 05/14/23 18:59 06:59 18:59 Intake Total 678 Output Total 100 400 Balance 578 -400 Weight 86.5 kg Intake: Oral 678 Output: Urine 100 400 Other: Voiding Method Urinal Urinal - Exam General appearance: The patient is alert, oriented, appears in no acute distress. HET: Head is normocephalic and atraumatic. Conjunctiva pink. Sclera anicteric. Neck: Supple without lymphadenopathy. Abdomen: Soft, nontender, mildly distended with ascites, umbilical hernia. No guarding or rigidity. Extremities: Normal skin color and turgor. No pedal edema Skin: No rashes, no jaundice Neurological: No focal deficits. Alert and oriented. - Labs CBC & Chem 7: 05/13/23 08:59 05/13/23 08:59 Labs: Abnormal Lab Results - Last 24 Hours (Table) 05/13/23 05/13/23 Range/Units 08:59 08:59 RBC 2.62 L (4.30-5.90) m/uL Hgb 8.0 L (13.0-17.5) gm/dL Hct 25.7 L (39.0-53.0) % RDW 17.0 H (11.5-15.5) % Plt Count 79 L (150-450) k/uL Chloride 111 H (98-107) mmol/L Carbon Dioxide 19 L (22-30) mmol/L BUN 34 H (9-20) mg/dL Creatinine 1.72 H (0.66-1.25) mg/dL Glucose 116 H (74-99) mg/dL Calcium 7.8 L (8.4-10.2) mg/dL Total Protein 5.0 L (6.3-8.2) g/dL Albumin 2.6 L (3.5-5.0) g/dL Assessment and Plan (1) Decompensation of cirrhosis of liver Narrative/Plan: 43-year-old male with history of alcohol abuse with known alcoholic liver cirrhosis and decompensated cirrhosis of the liver presented for hyperkalemia. Patient states he has not been following regularly with a breeding technician or roadway technician. He follows with the [facility]. He has had multiple appointments with Dr. Negron for which he has no showed. He states he has not had any alcohol in over a year. He does state that he has had a total health visit with a breeding technician sent up from the [facility] And he was told he would need to quit smoking if he was going to be considered for liver transplant. Currently being admitted for hyperkalemia, hepatorenal syndrome. He has been hypotensive on limited drain which has been increased to 1010 mg 4 times a day, he is currently getting albumin daily. Last paracentesis done on 05/06/2023 with 15 L removed. Recommendation is to follow with a roadway technician, continue alcohol abstinence, and follow with recommendations from nephrology. Current Visit: Yes Status: Acute Code(s): K72.90 - HEPATIC FAILURE, UNS PECIFIED WITHOUT COMA; K74.60 - UNSPECIFIED CIRRHOSIS OF LIVER SNOMED Code(s): 234179562 (2) Chronic anemia Current Visit: Yes Status: Acute Code(s): D64.9 - ANEMIA, UNSPECIFIED SNOMED Code(s): 819152992 (3) Pancytopenia Current Visit: Yes Status: Acute Code(s): D61.818 - OTHER PANCYTOPENIA SNOMED Code(s): 985801185 (4) Acute kidney failure Narrative/Plan: Nephrology following. Acute kidney failure, improving. Continue with their recommendations. Plan is to resume diuretics today Current Visit: Yes Status: Acute Code(s): N17.9 - ACUTE KIDNEY FAILURE, UNSPECIFIED SNOMED Code(s): 80502676 (5) Ascites Narrative/Plan: Plan is for paracentesis today. Patient will need albumin pre-and post paracentesis Current Visit: Yes Status: Acute Code(s): R18.8 - OTHER ASCITES SNOMED Code(s): 394103567 (6) History of alcohol abuse Current Visit: No Status: Acute Code(s): F10.11 - ALCOHOL ABUSE, IN REMISSION SNOMED Code(s): 095804413 (7) Hyperkalemia Narrative/Plan: Resolved Current Visit: Yes Status: Acute Code(s): E87.5 - HYPERKALEMIA SNOMED Code(s): 57906696 (8) Hypotension Current Visit: Yes Status: Acute Code(s): I95.9 - HYPOTENSION, UNSPECIFIED SNOMED Code(s): 49721083 Plan: 1. Continue symptomatic and supportive care 2. Renal diet 3. Continue with recommendations from nephrology. Diuretics defer to nephrology recommendations 4. Recommend smoking cessation, nicotine patch ordered for patient has been refusing it. 5. Continue with alcohol abstinence 6. Patient scheduled for paracentesis today. Patient will need albumin pre-and post paracentesis. 7. Discussed with patient for evidence of medical compliance and outpatient follow-up with breeding technician[facility] 8. Patient is cleared from gastroenterology for discharge. We will sign off at this time. Dr. Reinaldo Negron I agree with the dictator's note, documented as a scribe by Zuleyma MEDELLIN .
[2023-05-14 07:40] LABS: Potassium 3.8 mmol/L (3.5-5.1)
[2023-05-14 07:41] LABS: ALT 13 U/L (4-49); AST 25 U/L (17-59); African American GFR (CKD) 60 (>60 ml/min/1.73 sqM); Albumin 2.5 g/dL (3.5-5.0); Alkaline Phosphatase 58 U/L (38-126); Anion Gap 5 mmol/L; Blood Urea Nitrogen 33 mg/dL (9-20); Calcium 7.8 mg/dL (8.4-10.2); Carbon Dioxide 20 mmol/L (22-30); Chloride 111 mmol/L (98-107); Glucose 90 mg/dL (74-99); Magnesium 1.9 mg/dL (1.6-2.3); Non-African American GFR(CKD) 52 (>60 ml/min/1.73 sqM); Sodium 136 mmol/L (137-145); Total Bilirubin 1.3 mg/dL (0.2-1.3); Total Protein 4.9 g/dL (6.3-8.2)
[2023-05-14 08:18] LABS: Anisocytosis Slight; HCT 24.7 % (39.0-53.0); HGB 7.8 gm/dL (13.0-17.5); Hypochromasia Marked; MCH 31.3 pg (25.0-35.0); MCHC 31.7 g/dL (31.0-37.0); MCV 98.5 fL (80.0-100.0); Macrocytosis Slight; Mean Platelet Volume 9.8; RBC 2.51 m/uL (4.30-5.90); RDW 17.1 % (11.5-15.5); WBC 4.6 k/uL (3.8-10.6)
[2023-05-14] MEDS: OCTREOTIDE 100 MCG/ML INJ SQ SCH ×2 (08:48→16:38)
[2023-05-14 08:49] LABS: Platelet Count 86 k/uL (150-450)
[2023-05-14] MEDS: FUROSEMIDE 40 MG TAB PO SCH (08:50)
[2023-05-14] MEDS: MIDODRINE 5 MG TAB PO SCH ×2 (08:51→12:52)
[2023-05-14] MEDS: HYDROcodone/APAP 5-325MG 1 EACH TAB PO PRN ×3 (08:51→16:06)
[2023-05-14] MEDS: NICOTINE 14MG/24HR PATCH TRANSDERM SCH (08:53)
[2023-05-14] MEDS: ALBUMIN HUMAN 25% 50 ML in EMPTY BAG 1 BAG IVPB SCH ×6 (09:06→15:13)
[2023-05-14] MEDS: FAMOTIDINE 20 MG TAB PO SCH (12:03)
[2023-05-14] MEDS: SPIRONOLACTONE 25 MG TAB PO SCH (12:03)
--- NOTE | 2023-05-14 12:35 | US ---
Ultrasound-guided paracentesis. DATE OF EXAM: 05/14/2023 CLINICAL HISTORY: Ascites The procedure was discussed with the patient. The risks, complications, benefits, and alternatives we re discussed and any questions were answered. Informed consent was obtained. The patient was placed s upine on the ultrasound table and prepped and draped in the usual sterile fashion. All elements of maximal barrier technique were utilized. Under ultrasound guidance, access into the right lower quadrant was obtained, via the paracentesis catheter system and direct ultrasound guidanc e. Approximately 9.9 liters of straw-colored fluid was removed. The patient was stable throughout the pr ocedure and remained stable upon discharge from Department of Radiology. IMPRESSION: Successful paracentesis under ultrasound guidance.
--- NOTE | 2023-05-14 12:58 | P.PN ---
Subjective Patient is seen in follow-up for acute kidney injury. Renal function stable. Underwent paracentesis morning. Has been voiding. Vital signs are stable. General: No acute distress. HEENT: Head exam is unremarkable. LUNGS: No audible rhonchi or wheezes. HEART: Rate and Rhythm are regular. ABDOMEN: No distention. EXTREMITITES: No edema. Objective - Vital Signs Vital signs: Vital Signs Temp 97.9 F 05/14/23 08:00 Pulse 70 05/14/23 11:26 Resp 16 05/14/23 11:26 BP 98/51 05/14/23 11:26 Pulse Ox 97 05/14/23 11:26 FiO2 Intake & Output 05/13/23 05/14/23 05/14/23 18:59 06:59 18:59 Intake Total 678 120 Output Total 100 400 Balance 578 -400 120 Weight 86.5 kg Intake: Oral 678 120 Output: Urine 100 400 Other: Voiding Method Urinal Urinal Urinal - Labs CBC & Chem 7: 05/14/23 06:43 05/14/23 06:47 Labs: Abnormal Lab Results - Last 24 Hours (Table) 05/14/23 05/14/23 05/14/23 Range/Units 06:43 06:47 06:47 RBC 2.51 L (4.30-5.90) m/uL Hgb 7.8 L (13.0-17.5) gm/dL Hct 24.7 L (39.0-53.0) % RDW 17.1 H (11.5-15.5) % Plt Count 86 L (150-450) k/uL PT 16.7 H (10.0-12.5) sec INR 1.6 H (<1.2) Sodium 136 L (137-145) mmol/L Chloride 111 H (98-107) mmol/L Carbon Dioxide 20 L (22-30) mmol/L BUN 33 H (9-20) mg/dL Creatinine 1.62 H (0.66-1.25) mg/dL Calcium 7.8 L (8.4-10.2) mg/dL Total Protein 4.9 L (6.3-8.2) g/dL Albumin 2.5 L (3.5-5.0) g/dL Assessment and Plan Plan: Assessment: 1. Acute kidney injury secondary to ATN secondary to hypovolemia from large volume paracentesis. Creatinine peaked at 3.0 to this admission and is down to 1.62 today. Creatinine is low as 1.01 04/15/2023. 2. Alcohol-induced liver cirrhosis. 3. Ascites status post paracentesis last Thursday with 15 L drained. 10 L drained this morning - receiving a total of 75 g of albumin. 4. Pancytopenia. Possibly from chronic alcohol use and liver disease. Iron replete. 5. Hyperkalemia secondary to acute kidney injury and Aldactone. Resolved. Plan: Encouraged oral intake. Maintain Lasix 40 mg once daily. Maintain spironolactone 25 mg twice daily. Maintain midodrine.
[2023-05-14] MEDS ORDERED: ALBUMIN HUMAN 25% 50 ML in EMPTY BAG 1 BAG IVPB SCH (13:00)
--- NOTE | 2023-05-14 13:15 | P.DS ---
Providers Date of admission: 05/06/23 16:39 Expected date of discharge: 05/14/23 Attending physician: Cholo Aldridge MD Consults: 05/06/23 16:39 Consult Physician Routine Consulting Provider: Ignacio Howard Consult Reason/Comments: HyperK Do you want consulting provider notified?: Yes 05/11/23 07:58 Consult Physician Routine Consulting Provider: Gina Negron Consult Reason/Comments: hepatorenal syndrome, liver cirrhosis Do you want consulting provider notified?: Yes Primary care physician: [facility] Course: 43-year-old male with a past medical history of alcohol abuse disorder and alcoholic liver cirrhosis. He currently is under treatment for his advanced cirrhosis and receives weekly paracentesis. Patient was transferred to the emergency department on 05/06/23 after completion of his outpatient paracentesis secondary to findings of severe hyperkalemia. Upon arrival to our facility patient underwent full evaluation. Vital signs upon arrival as follows blood pressure 79/34, heart rate 61, respiratory rate 16, temp 98.8F, and SpO2 of 100% on room air. EKG was completed showing normal sinus rhythm at 70 bpm with significantly peaked T waves. CBC showing hemoglobin of 8.3, platelet count of 105. BMP showing sodium of 130, potassium of 7.1, chloride of 107, bicarb of 15, anion gap of 8, BUN of 34, creatinine 1.46, and GFR 59 with baseline creatinine of 1.0. Magnesium normal findings at 2.1. Liver profile albumin of 3.4. Patient was provided with hyperkalemia cocktail and admitted under our services with consultation to nephrology. Patient's renal function persistently worsening, diuretics were discontinued and patient was started on IV fluid hydration and nephrology. Despite treatment patient's renal function continued to worsening consistent with hepatorenal syndrome. Patient was started on octreotide and albumin in addition to his midodrine for treatment of hepatorenal syndrome. Renal function improved, IV fluid discontinued and patient restarted on Lasix and Aldactone. 05/14 Patient was seen and examined. Feeling sore after paracentesis. 10L drained. Plans for 75g of albumin. INR 1.6. BMP Na 136, Cl 111, bicarb 20, BUN 33, Cr 1.62, Ca 7.8, alb 2.5. Hopeful discharge home if doing well after paracentesis. He has outpatient paracentesis set up for every Wednesdays. Repeat CBC and BMP in 3 days to be followed by PCP. Physical examination: Vital signs reviewed General: Chronically ill-appearing, emaciated his extremities with distended cirrhotic abdomen Derm: Skin warm and dry, jaundiced Head: Atraumatic, normocephalic and symmetric.Scleral icterus Cardiovascular: regular rate and rhythm Lungs: Respirations even, regular, and unlabored on room air with no accessory muscle usage. Abdominal: Soft and distended abdomen with diffuse tenderness upon palpation, no guarding, no appreciable organomegaly Ext: ROM intact. No gross muscle atrophy, no edema, no contractures Neuro: Speech clear, face symmetrical and no noted focal neuro deficits Psych: Alert and oriented to person, place, time, and situation. Appropriate and pleasant affect. Based on my assessment of this patient, this patient meets a moderate complexity level of care. Patient has an acute diagnosis of hepatorenal syndrome poses a threat to life or bodily function. Hepatorenal Syndrome Acute kidney injury secondary to fluid shift from recent large-volume paracentesis and onset of hepatorenal syndrome Decompensated alcohol liver cirrhosis Right lower lobe consolidation, probable atelectasis. B Where ycytopenia, secondary to decompensated liver cirrhosis Chronic hypotension, secondary to decompensated liver cirrhosis Patient Condition at Discharge: Stable Plan - Discharge Summary Discharge Rx Participant: Yes New Discharge Prescriptions: New Spironolactone [Aldactone] 25 mg PO BID #60 tab Continue HYDROcodone/APAP 5-325MG [Dawson 5-325] 1 - 2 tab PO Q4HR PRN PRN Reason: Pain Furosemide [Lasix] 40 mg PO DAILY #30 tablet Pantoprazole [Protonix] 40 mg PO DAILY Midodrine HCl [ProAmatine] 10 mg PO TID Discontinued Spironolactone [Aldactone] 50 mg PO BID Discharge Medication List Furosemide [Lasix] 40 mg PO DAILY #30 tablet 03/02/23 [Rx] HYDROcodone/APAP 5-325MG [Dawson 5-325] 1 - 2 tab PO Q4HR PRN 05/06/23 [History] Midodrine HCl [ProAmatine] 10 mg PO TID 05/06/23 [History] Pantoprazole [Protonix] 40 mg PO DAILY 05/06/23 [History] Spironolactone [Aldactone] 25 mg PO BID #60 tab 05/14/23 [Rx] Follow up Appointment(s)/Referral(s): [facility],Clinic [Primary Care Provider] - 1-2 days Ambulatory/Diagnostic Orders: Basic Metabolic Panel [LAB.AMB] Location: None Selected Complete Blood Count w/diff [LAB.AMB] Time Frame: 3 Days, Location: None Selected Discharge/Stand Alone Forms: AA Meetings [place], Who Do I Call?, Community Resources, Outpatient Counseling, In Substance Abuse Facilities Discharge Disposition: HOME SELF-CARE
[2023-05-14 14:39] VITALS: TEMP 98.4
[2023-05-14 16:36] VITALS: BP 96/57; PULSE 87; RESP 17
== END 2023-05-14 16:47 | disposition home or self-care (01) | DRG 441 ==
LOC: EC 12:11 → 3SCARD 16:39 → 4SSUR 05-07 19:31 → 3SCARD 05-07 19:55
PROVIDERS: ADMIT Internal Medicine; ATTEND Internal Medicine
PROC: 0W9G3ZZ Drainage of Peritoneal Cavity, Percutaneous Approach (ICD-10-PCS; principal; 2023-05-14)
DX: K76.7 Hepatorenal syndrome (principal); J18.9 Pneumonia, unspecified organism; N17.0 Acute kidney failure with tubular necrosis; N17.9 Acute kidney failure, unspecified; D61.818 Other pancytopenia; E87.20 Acidosis, unspecified; E87.1 Hypo-osmolality and hyponatremia; K70.31 Alcoholic cirrhosis of liver with ascites; E87.5 Hyperkalemia; D69.59 Other secondary thrombocytopenia; I95.89 Other hypotension; F10.10 Alcohol abuse, uncomplicated; F32.A Depression, unspecified; F43.10 Post-traumatic stress disorder, unspecified; E86.1 Hypovolemia; K70.40 Alcoholic hepatic failure without coma; E78.5 Hyperlipidemia, unspecified; E88.09 Other disorders of plasma-protein metabolism, not elsewhere classified; F17.210 Nicotine dependence, cigarettes, uncomplicated; Z79.899 Other long term (current) drug therapy; I10 Essential (primary) hypertension; Z88.6 Allergy status to analgesic agent; Z88.5 Allergy status to narcotic agent
CPT/HCPCS: 36415; 49083; 76770; 80053; 81001; 82728; 83540; 83550; 83735; 84100; 84132; 85025; 85027; 85610; 87040; 93005; 94760; 96361; 96365; 96366; 96367; 96375; 96376; 99291

== ENCOUNTER 2023-05-20 12:34 | Day surgery (SDC) | payer OTHER ==
[2023-05-20 13:14] LABS: Anisocytosis Slight; HCT 27.7 % (39.0-53.0); HGB 8.9 gm/dL (13.0-17.5); Hypochromasia Moderate; MCH 30.7 pg (25.0-35.0); MCHC 32.2 g/dL (31.0-37.0); MCV 95.2 fL (80.0-100.0); Macrocytosis Slight; Mean Platelet Volume 8.7; Platelet Count 118 k/uL (150-450); RBC 2.91 m/uL (4.30-5.90); WBC 5.5 k/uL (3.8-10.6)
[2023-05-20 13:20] LABS: INR 1.4 (<1.2); Prothrombin Time 14.4 sec (10.0-12.5)
[2023-05-20 13:32] LABS: ALT 18 U/L (4-49); AST 51 U/L (17-59); African American GFR (CKD) 58 (>60 ml/min/1.73 sqM); Albumin 3.7 g/dL (3.5-5.0); Alkaline Phosphatase 81 U/L (38-126); Anion Gap 11 mmol/L; Blood Urea Nitrogen 32 mg/dL (9-20); Calcium 8.9 mg/dL (8.4-10.2); Carbon Dioxide 18 mmol/L (22-30); Chloride 107 mmol/L (98-107); Glucose 109 mg/dL (74-99); Non-African American GFR(CKD) 50 (>60 ml/min/1.73 sqM); Potassium 4.5 mmol/L (3.5-5.1); Sodium 136 mmol/L (137-145); Total Bilirubin 2.9 mg/dL (0.2-1.3)
[2023-05-20] MEDS: ALBUMIN HUMAN 25% 50 ML in EMPTY BAG 1 BAG IVPB SCH ×6 (13:35→15:13)
[2023-05-20 13:42] VITALS: RESP 18; TEMP 97.5
[2023-05-20 15:47] VITALS: BP 100/60; PULSE 68
[2023-05-21 04:19] LABS: Appearance,BF Hazy (Clear)
--- NOTE | 2023-05-21 13:37 | US ---
EXAMINATION TYPE: US paracentesis abd w/image DATE OF EXAM: 05/20/2023 2:38 PM CLINICAL INDICATION:Male, 43 years old with history of R18.8 OTHER ASCITES; COMPARISON: 05/14/2023 ATTENDING: Dr. Marcin Calixto PROCEDURE: Informed consent was obtained. The risks of the procedure were extensively explained incl uding risk of damage to surrounding bowel with perforation and need for additional procedures. Proced ure was performed in the ultrasound procedure suite. Ultrasound imaging of the abdomen demonstrate as citic fluid. An appropriate access site was localized to the right lower abdomen. Timeout was taken p er protocol. The skin was prepped and draped in the usual sterile fashion and then locally anesthetiz ed with 1% lidocaine. The peritoneal cavity was then accessed via a 5-Bahamian one-step needle/cathete r. Approximately 63360 cc of clear straw-colored fluid was obtained. Samples were sent to the lab fo r analysis. Postprocedural imaging of the abdomen demonstrate a minimal amount of abdominal fluid. Patient tolerated procedure well without immediate complication. Hemostasis at the procedural site w as obtained with a sterile bandage placed. The patient was monitored in the holding area following th e procedure and was subsequently discharged in stable condition. IMPRESSION: Ultrasound guided paracentesis, with approximately 82619 cc of clear straw-colored fluid drained. Pat hology results pending. No immediate complications were evident.
== END 2023-05-20 15:54 | disposition home or self-care (01) ==
LOC: RADPROMAIN 12:34
PROVIDERS: ATTEND Internal Medicine Gastroenterology
DX: R18.8 Other ascites (principal)
CPT/HCPCS: 80053; 89050; 85027; 85610; 36415; 49083; P9047

== ENCOUNTER 2023-05-27 12:19 | Day surgery (SDC) | payer OTHER ==
[2023-05-27 13:16] LABS: INR 1.3 (<1.2); Prothrombin Time 13.7 sec (10.0-12.5)
[2023-05-27 13:18] LABS: Anisocytosis Slight; Basophils % (A) 1 %; Eosinophils # (A) 0.4 k/uL (0-0.7); Eosinophils % (A) 7 %; HCT 23.4 % (39.0-53.0); HGB 7.8 gm/dL (13.0-17.5); Hypochromasia Moderate; Lymphocytes # (A) 1.5 k/uL (1.0-4.8); Lymphocytes % (A) 26 %; MCH 30.8 pg (25.0-35.0); MCHC 33.2 g/dL (31.0-37.0); MCV 92.8 fL (80.0-100.0); Mean Platelet Volume 9.7; Monocytes # (A) 0.3 k/uL (0-1.0); Monocytes % (A) 5 %; Neutrophils # (A) 3.4 k/uL (1.3-7.7); Neutrophils % (A) 59 %; Platelet Count 110 k/uL (150-450); RBC 2.52 m/uL (4.30-5.90); RDW 18.1 % (11.5-15.5); WBC 5.8 k/uL (3.8-10.6)
[2023-05-27 13:22] VITALS: RESP 16; TEMP 97.8
[2023-05-27 13:22] LABS: African American GFR (CKD) 86 (>60 ml/min/1.73 sqM); Anion Gap 7 mmol/L; Blood Urea Nitrogen 23 mg/dL (9-20); Calcium 8.5 mg/dL (8.4-10.2); Carbon Dioxide 21 mmol/L (22-30); Chloride 106 mmol/L (98-107); Glucose 111 mg/dL (74-99); Non-African American GFR(CKD) 74 (>60 ml/min/1.73 sqM); Sodium 134 mmol/L (137-145)
[2023-05-27] MEDS: ALBUMIN HUMAN 25% 50 ML in EMPTY BAG 1 BAG IVPB SCH ×6 (14:05→15:19)
[2023-05-27 15:47] VITALS: BP 105/52; PULSE 77
--- NOTE | 2023-05-27 16:21 | US ---
EXAMINATION TYPE: US paracentesis abd w/image DATE OF EXAM: 05/27/2023 CLINICAL HISTORY: 43-year-old male R18.8, ascites, routine therapeutic paracentesis. The procedure was discussed with the patient. The risks, complications, benefits, and alternatives we re discussed and any questions were answered. Informed consent was obtained. The patient was placed s upine on the ultrasound table and prepped and draped in the usual sterile fashion. All elements of maximal barrier technique were utilized. Ultrasound was utilized to determine the precise skin entry site along the right lower quadrant. A 5 [place] One-Step catheter and trocar technique was utilized to access the ascites collection under direct ultrasound guidance. Approximately 10.2 liters of slightly opaque, straw-colored fluid was removed. This is typical for th e patient. Catheter was removed, hemostasis obtained, and a dressing placed. The patient was stable throughout the procedure and remained stable upon discharge from Department of Radiology. IMPRESSION: Successful therapeutic paracentesis under ultrasound guidance. 10.2 L of fluid removed.
[2023-05-28 11:03] LABS: Appearance,BF Cloudy (Clear)
== END 2023-05-27 15:50 | disposition home or self-care (01) ==
LOC: RADPROMAIN 12:19
PROVIDERS: ATTEND Radiology Diagnostic Radiology
DX: R18.8 Other ascites (principal)
CPT/HCPCS: 80048; 89050; 85025; 85610; 36415; 49083; P9047

== ENCOUNTER 2023-06-03 12:44 | Day surgery (SDC) | payer OTHER ==
[2023-06-03 13:57] LABS: Anisocytosis Slight; Basophils # (A) 0.1 k/uL (0-0.2); Basophils % (A) 1 %; Eosinophils # (A) 0.4 k/uL (0-0.7); Eosinophils % (A) 8 %; HCT 26.2 % (39.0-53.0); HGB 8.3 gm/dL (13.0-17.5); Hypochromasia Moderate; Lymphocytes # (A) 1.1 k/uL (1.0-4.8); Lymphocytes % (A) 23 %; MCH 29.5 pg (25.0-35.0); MCHC 31.8 g/dL (31.0-37.0); MCV 92.9 fL (80.0-100.0); Mean Platelet Volume 8.9; Monocytes # (A) 0.3 k/uL (0-1.0); Monocytes % (A) 6 %; Neutrophils # (A) 2.8 k/uL (1.3-7.7); Neutrophils % (A) 59 %; Platelet Count 101 k/uL (150-450); RBC 2.82 m/uL (4.30-5.90); RDW 17.4 % (11.5-15.5); WBC 4.8 k/uL (3.8-10.6)
[2023-06-03] MEDS: ALBUMIN HUMAN 25% 50 ML in EMPTY BAG 1 BAG IVPB SCH ×2 (14:00→15:10)
[2023-06-03 14:02] LABS: INR 1.4 (<1.2); Prothrombin Time 14.3 sec (10.0-12.5)
[2023-06-03 14:44] VITALS: TEMP 98.7
[2023-06-03 15:13] LABS: ALT 16 U/L (4-49); AST 66 U/L (17-59); African American GFR (CKD) >90 (>60 ml/min/1.73 sqM); Albumin 3.5 g/dL (3.5-5.0); Alkaline Phosphatase 86 U/L (38-126); Anion Gap 4 mmol/L; Blood Urea Nitrogen 23 mg/dL (9-20); Calcium 8.5 mg/dL (8.4-10.2); Carbon Dioxide 20 mmol/L (22-30); Chloride 110 mmol/L (98-107); Glucose 112 mg/dL (74-99); Non-African American GFR(CKD) 84 (>60 ml/min/1.73 sqM); Potassium 4.7 mmol/L (3.5-5.1); Sodium 134 mmol/L (137-145); Total Bilirubin 1.5 mg/dL (0.2-1.3); Total Protein 6.8 g/dL (6.3-8.2)
[2023-06-03 15:14] VITALS: PULSE 77; RESP 18
--- NOTE | 2023-06-03 15:39 | US ---
Ultrasound-guided paracentesis. DATE OF EXAM: 06/03/2023 CLINICAL HISTORY: Ascites The procedure was discussed with the patient. The risks, complications, benefits, and alternatives we re discussed and any questions were answered. Informed consent was obtained. The patient was placed s upine on the ultrasound table and prepped and draped in the usual sterile fashion. All elements of maximal barrier technique were utilized. Under ultrasound guidance, access into the right lower quadrant was obtained, via the paracentesis catheter system and direct ultrasound guidanc e. Approximately 10 liters of straw-colored fluid was removed. The patient was stable throughout the pro cedure and remained stable upon discharge from Department of Radiology. IMPRESSION: Successful paracentesis under ultrasound guidance.
[2023-06-03 15:43] VITALS: BP 96/55
[2023-06-04 04:43] LABS: Appearance,BF Hazy (Clear)
== END 2023-06-03 15:55 | disposition home or self-care (01) ==
LOC: RADPROMAIN 12:44
PROVIDERS: ATTEND Internal Medicine Gastroenterology
DX: R18.8 Other ascites (principal)
CPT/HCPCS: 80053; 89050; 85025; 85610; 36415; 49083; P9047

== ENCOUNTER 2023-06-10 12:31 | Day surgery (SDC) | payer OTHER ==
[2023-06-10 13:13] LABS: Anisocytosis Slight; Basophils % (A) 1 %; Eosinophils # (A) 0.3 k/uL (0-0.7); Eosinophils % (A) 6 %; HCT 23.9 % (39.0-53.0); HGB 7.7 gm/dL (13.0-17.5); Hypochromasia Moderate; Lymphocytes # (A) 1.5 k/uL (1.0-4.8); Lymphocytes % (A) 27 %; MCH 29.6 pg (25.0-35.0); MCHC 32.2 g/dL (31.0-37.0); MCV 91.8 fL (80.0-100.0); Mean Platelet Volume 8.8; Monocytes # (A) 0.3 k/uL (0-1.0); Monocytes % (A) 6 %; Neutrophils # (A) 3.2 k/uL (1.3-7.7); Neutrophils % (A) 59 %; Platelet Count 119 k/uL (150-450); RDW 17.8 % (11.5-15.5); WBC 5.6 k/uL (3.8-10.6)
[2023-06-10 13:17] VITALS: RESP 18; TEMP 98.1
[2023-06-10 13:30] LABS: INR 1.3 (<1.2); Prothrombin Time 13.4 sec (10.0-12.5)
[2023-06-10 13:34] LABS: African American GFR (CKD) >90 (>60 ml/min/1.73 sqM); Non-African American GFR(CKD) >90 (>60 ml/min/1.73 sqM)
[2023-06-10] MEDS: ALBUMIN HUMAN 25% 50 ML in EMPTY BAG 1 BAG IVPB SCH ×2 (13:51→14:45)
[2023-06-10 14:25] LABS: ALT 13 U/L (4-49); AST 41 U/L (17-59); Albumin 3.2 g/dL (3.5-5.0); Alkaline Phosphatase 86 U/L (38-126); Anion Gap 6 mmol/L; Blood Urea Nitrogen 26 mg/dL (9-20); Calcium 8.5 mg/dL (8.4-10.2); Carbon Dioxide 17 mmol/L (22-30); Chloride 109 mmol/L (98-107); Glucose 103 mg/dL (74-99); Potassium 4.4 mmol/L (3.5-5.1); Sodium 132 mmol/L (137-145); Total Bilirubin 1.4 mg/dL (0.2-1.3); Total Protein 6.3 g/dL (6.3-8.2)
[2023-06-10 15:50] VITALS: BP 91/54; PULSE 78
[2023-06-11 06:11] LABS: Appearance,BF Cloudy (Clear)
--- NOTE | 2023-06-11 11:43 | US ---
EXAMINATION TYPE: US paracentesis abd w/image DATE OF EXAM: 06/10/2023 2:21 PM CLINICAL INDICATION:Male, 43 years old with history of R18.8 OTHER ASCITES; COMPARISON: 06/03/2023 ATTENDING: Dr. Marcin Calixto PROCEDURE: Informed consent was obtained. The risks of the procedure were extensively explained incl uding risk of damage to surrounding bowel with perforation and need for additional procedures. Proced ure was performed in the ultrasound procedure suite. Ultrasound imaging of the abdomen demonstrate as citic fluid. An appropriate access site was localized to the right lower abdomen. Timeout was taken p er protocol. The skin was prepped and draped in the usual sterile fashion and then locally anesthetiz ed with 1% lidocaine. The peritoneal cavity was then accessed via a 5-Turkmen one-step needle/cathete r. Approximately 54847 cc of clear straw-colored fluid was obtained. Samples were sent to the lab fo r analysis. Postprocedural imaging of the abdomen demonstrate a minimal amount of abdominal fluid. Patient tolerated procedure well without immediate complication. Hemostasis at the procedural site w as obtained with a sterile bandage placed. The patient was monitored in the holding area following th e procedure and was subsequently discharged in stable condition. IMPRESSION: Ultrasound guided paracentesis, with approximately 98605 cc of clear straw-colored fluid drained. Pat hology results pending. No immediate complications were evident.
== END 2023-06-10 15:25 | disposition home or self-care (01) ==
LOC: RADPROMAIN 12:31
PROVIDERS: ATTEND Internal Medicine Gastroenterology
DX: R18.8 Other ascites (principal)
CPT/HCPCS: 80053; 89050; 85025; 85610; 36415; 49083; P9047

== ENCOUNTER 2023-06-17 12:43 | Day surgery (SDC) | payer OTHER ==
[2023-06-17] MEDS ORDERED: ALBUMIN HUMAN 25% 50 ML in EMPTY BAG 1 BAG IVPB SCH (13:00)
[2023-06-17] MEDS: ALBUMIN HUMAN 25% 50 ML in EMPTY BAG 1 BAG IVPB SCH (13:21)
[2023-06-17 13:33] LABS: INR 1.3 (<1.2); Partial Thromboplastin Time 29.7 sec (22.0-30.0)
[2023-06-17 13:35] LABS: Anisocytosis Slight; Basophils % (A) 1 %; Eosinophils # (A) 0.1 k/uL (0-0.7); Eosinophils % (A) 2 %; HCT 25.1 % (39.0-53.0); HGB 8.1 gm/dL (13.0-17.5); Hypochromasia Moderate; Lymphocytes # (A) 1.2 k/uL (1.0-4.8); Lymphocytes % (A) 16 %; MCH 29.8 pg (25.0-35.0); MCHC 32.5 g/dL (31.0-37.0); Mean Platelet Volume 9.2; Monocytes # (A) 0.6 k/uL (0-1.0); Monocytes % (A) 8 %; Neutrophils # (A) 5.2 k/uL (1.3-7.7); Neutrophils % (A) 71 %; Platelet Count 126 k/uL (150-450); RBC 2.72 m/uL (4.30-5.90); RDW 17.3 % (11.5-15.5); WBC 7.3 k/uL (3.8-10.6)
[2023-06-17 13:40] VITALS: TEMP 98
[2023-06-17 14:09] LABS: ALT 13 U/L (4-49); AST 29 U/L (17-59); African American GFR (CKD) 81 (>60 ml/min/1.73 sqM); Albumin 2.9 g/dL (3.5-5.0); Alkaline Phosphatase 67 U/L (38-126); Anion Gap 7 mmol/L; Blood Urea Nitrogen 35 mg/dL (9-20); Calcium 8.2 mg/dL (8.4-10.2); Carbon Dioxide 17 mmol/L (22-30); Chloride 109 mmol/L (98-107); Glucose 117 mg/dL (74-99); Non-African American GFR(CKD) 70 (>60 ml/min/1.73 sqM); Potassium 4.8 mmol/L (3.5-5.1); Sodium 133 mmol/L (137-145); Total Bilirubin 1.7 mg/dL (0.2-1.3)
--- NOTE | 2023-06-17 14:19 | US ---
Ultrasound-guided paracentesis. DATE OF EXAM: 06/17/2023 CLINICAL HISTORY: Ascites The procedure was discussed with the patient. The risks, complications, benefits, and alternatives we re discussed and any questions were answered. Informed consent was obtained. The patient was placed s upine on the ultrasound table and prepped and draped in the usual sterile fashion. All elements of maximal barrier technique were utilized. Under ultrasound guidance, access into the right lower quadrant was obtained, via the paracentesis catheter system and direct ultrasound guidanc e. Approximately 10 liters of straw-colored fluid was removed. The patient was stable throughout the pro cedure and remained stable upon discharge from Department of Radiology. IMPRESSION: Successful paracentesis under ultrasound guidance.
[2023-06-17 15:43] VITALS: BP 106/54; PULSE 78; RESP 16
[2023-06-18 04:31] LABS: T. Protein, Body Fluid Source Paracentesis Fl; Total Protein, Body Fluid 1590 mg/dL
[2023-06-18 05:08] LABS: Appearance,BF Clear (Clear)
== END 2023-06-17 15:30 | disposition home or self-care (01) ==
LOC: RADPROMAIN 12:43
PROVIDERS: ATTEND Internal Medicine Gastroenterology
DX: R18.8 Other ascites (principal)
CPT/HCPCS: 80053; 89050; 85025; 85610; 85730; 84157; 36415; 49083; P9047

== ENCOUNTER 2023-06-24 12:09 | Day surgery (SDC) | payer OTHER ==
[2023-06-24] MEDS ORDERED: ALBUMIN HUMAN 25% 50 ML in EMPTY BAG 1 BAG IVPB SCH (12:15)
[2023-06-24 12:53] LABS: Anisocytosis Slight; Basophils % (A) 1 %; Eosinophils # (A) 0.4 k/uL (0-0.7); Eosinophils % (A) 6 %; HCT 25.3 % (39.0-53.0); HGB 7.9 gm/dL (13.0-17.5); Hypochromasia Moderate; Lymphocytes # (A) 1.4 k/uL (1.0-4.8); Lymphocytes % (A) 21 %; MCH 28.7 pg (25.0-35.0); MCHC 31.1 g/dL (31.0-37.0); MCV 92.4 fL (80.0-100.0); Mean Platelet Volume 8.7; Monocytes # (A) 0.6 k/uL (0-1.0); Monocytes % (A) 8 %; Neutrophils # (A) 4.2 k/uL (1.3-7.7); Neutrophils % (A) 63 %; Platelet Count 173 k/uL (150-450); RBC 2.74 m/uL (4.30-5.90); WBC 6.7 k/uL (3.8-10.6)
[2023-06-24] MEDS: ALBUMIN HUMAN 25% 50 ML in EMPTY BAG 1 BAG IVPB SCH (12:57)
[2023-06-24 13:01] LABS: INR 1.3 (<1.2); Prothrombin Time 13.4 sec (10.0-12.5)
[2023-06-24 13:06] LABS: ALT 13 U/L (4-49); AST 30 U/L (17-59); African American GFR (CKD) >90 (>60 ml/min/1.73 sqM); Albumin 3.1 g/dL (3.5-5.0); Alkaline Phosphatase 67 U/L (38-126); Anion Gap 7 mmol/L; Blood Urea Nitrogen 28 mg/dL (9-20); Calcium 8.3 mg/dL (8.4-10.2); Carbon Dioxide 15 mmol/L (22-30); Chloride 111 mmol/L (98-107); Glucose 132 mg/dL (74-99); Non-African American GFR(CKD) 89 (>60 ml/min/1.73 sqM); Potassium 4.3 mmol/L (3.5-5.1); Sodium 133 mmol/L (137-145); Total Protein 6.3 g/dL (6.3-8.2)
[2023-06-24 13:46] VITALS: TEMP 98.1
[2023-06-24 13:47] VITALS: PULSE 70; RESP 16
[2023-06-24 14:51] VITALS: BP 112/56
[2023-06-25 05:12] LABS: Appearance,BF Cloudy (Clear)
--- NOTE | 2023-06-25 13:49 | US ---
EXAMINATION TYPE: US paracentesis abd w/image DATE OF EXAM: 06/24/2023 1:35 PM CLINICAL INDICATION:Male, 43 years old with history of R18.8 OTHER ASCITES; COMPARISON: 06/17/2023 ATTENDING: Dr. Marcin Calixto PROCEDURE: Informed consent was obtained. The risks of the procedure were extensively explained incl uding risk of damage to surrounding bowel with perforation and need for additional procedures. Proced ure was performed in the ultrasound procedure suite. Ultrasound imaging of the abdomen demonstrate as citic fluid. An appropriate access site was localized to the right lower abdomen. Timeout was taken p er protocol. The skin was prepped and draped in the usual sterile fashion and then locally anesthetiz ed with 1% lidocaine. The peritoneal cavity was then accessed via a 5-Thai one-step needle/cathete r. Approximately 43577 cc of clear straw-colored fluid was obtained. Samples were sent to the lab fo r analysis. Postprocedural imaging of the abdomen demonstrate a minimal amount of abdominal fluid. Patient tolerated procedure well without immediate complication. Hemostasis at the procedural site w as obtained with a sterile bandage placed. The patient was monitored in the holding area following th e procedure and was subsequently discharged in stable condition. IMPRESSION: Ultrasound guided paracentesis, with approximately 05638 cc of clear straw-colored fluid drained. Pat hology results pending. No immediate complications were evident.
== END 2023-06-24 15:00 | disposition home or self-care (01) ==
LOC: RADPROMAIN 12:09
PROVIDERS: ATTEND Internal Medicine Gastroenterology
DX: R18.8 Other ascites (principal)
CPT/HCPCS: 80053; 89050; 85025; 85610; 49083; P9047

== ENCOUNTER 2023-07-01 12:18 | Day surgery (SDC) | payer OTHER ==
[~2023-07-01 12:18] MED LIST changes: +ALBUMIN HUMAN 25% 50 ML in EMPTY BAG 1 BAG IVPB ONE; -ALBUMIN HUMAN 25% 50 ML in EMPTY BAG 1 BAG IVPB SCH
[2023-07-01 13:01] LABS: Anisocytosis Slight; Basophils # (A) 0.1 k/uL (0-0.2); Basophils % (A) 1 %; Eosinophils # (A) 0.3 k/uL (0-0.7); Eosinophils % (A) 5 %; HCT 27.3 % (39.0-53.0); HGB 8.5 gm/dL (13.0-17.5); Hypochromasia Moderate; Lymphocytes # (A) 1.5 k/uL (1.0-4.8); Lymphocytes % (A) 22 %; MCH 28.6 pg (25.0-35.0); MCHC 31.2 g/dL (31.0-37.0); MCV 91.6 fL (80.0-100.0); Mean Platelet Volume 8.4; Monocytes # (A) 0.4 k/uL (0-1.0); Monocytes % (A) 6 %; Neutrophils # (A) 4.4 k/uL (1.3-7.7); Neutrophils % (A) 64 %; Platelet Count 150 k/uL (150-450); RBC 2.98 m/uL (4.30-5.90); RDW 16.6 % (11.5-15.5); WBC 6.9 k/uL (3.8-10.6)
[2023-07-01] MEDS: ALBUMIN HUMAN 25% 50 ML in EMPTY BAG 1 BAG IVPB SCH (13:01)
[2023-07-01 13:09] LABS: INR 1.3 (<1.2); Prothrombin Time 14.1 sec (10.0-12.5)
[2023-07-01 14:30] VITALS: RESP 16; TEMP 97.9
[2023-07-01 15:40] VITALS: BP 100/54; PULSE 76
--- NOTE | 2023-07-01 16:45 | US ---
EXAMINATION TYPE: US paracentesis abd w/image (diagnostic and therapeutic) DATE OF EXAM: 07/01/2023 CLINICAL HISTORY: 43-year-old male R18.8, routine outpatient paracentesis The procedure was discussed with the patient. The risks, complications, benefits, and alternatives we re discussed and any questions were answered. Informed consent was obtained. The patient was placed s upine on the ultrasound table and prepped and draped in the usual sterile fashion. All elements of maximal barrier technique were utilized. Ultrasound was utilized to determine the precise skin entry site along the right lower quadrant/right flank. A 5 British One-Step catheter and trocar technique was utilized to access the ascites collection under direct ultrasound guidance. An initial 60 mL syringe was filled for laboratory analysis. Subsequently, approximately 10 liters of slightly opaque, straw-colored fluid was removed (typical for the patient). Catheter was removed, hemostasis obtained, and a dressing placed. The patient was stable throughout the procedure and remained stable upon discharge from Department of Radiology. IMPRESSION: Successful diagnostic and therapeutic paracentesis under ultrasound guidance. Drainage was stopped at 10 L of fluid as is routinely done with the patient.
[2023-07-01 17:56] LABS: ALT 16 U/L (4-49); African American GFR (CKD) >90 (>60 ml/min/1.73 sqM); Albumin 3.3 g/dL (3.5-5.0); Blood Urea Nitrogen 27 mg/dL (9-20); Calcium 8.3 mg/dL (8.4-10.2); Carbon Dioxide 18 mmol/L (22-30); Glucose 101 mg/dL (74-99); Non-African American GFR(CKD) 84 (>60 ml/min/1.73 sqM); Sodium 134 mmol/L (137-145); Total Bilirubin 1.2 mg/dL (0.2-1.3); Total Protein 6.7 g/dL (6.3-8.2)
[2023-07-01 18:06] LABS: AST 63 U/L (17-59); Alkaline Phosphatase 86 U/L (38-126); Anion Gap 6 mmol/L; Chloride 110 mmol/L (98-107); Potassium 4.4 mmol/L (3.5-5.1)
[2023-07-02 05:06] LABS: Appearance,BF Cloudy (Clear)
== END 2023-07-01 15:35 | disposition home or self-care (01) ==
LOC: RADPROMAIN 12:18
PROVIDERS: ATTEND Internal Medicine Gastroenterology
DX: R18.8 Other ascites (principal)
CPT/HCPCS: 80053; 89050; 85025; 85610; 36415; 49083; P9047

== ENCOUNTER 2023-07-08 12:13 | Day surgery (SDC) | payer OTHER ==
[2023-07-08 13:21] LABS: INR 1.3 (<1.2)
[2023-07-08 13:22] LABS: African American GFR (CKD) >90 (>60 ml/min/1.73 sqM); Non-African American GFR(CKD) 83 (>60 ml/min/1.73 sqM)
[2023-07-08] MEDS: ALBUMIN HUMAN 25% 50 ML in EMPTY BAG 1 BAG IVPB SCH ×2 (13:29→14:37)
[2023-07-08 13:34] LABS: Anisocytosis Slight; Basophils # (A) 0.1 k/uL (0-0.2); Basophils % (A) 1 %; Eosinophils # (A) 0.4 k/uL (0-0.7); Eosinophils % (A) 7 %; HGB 8.2 gm/dL (13.0-17.5); Hypochromasia Moderate; Lymphocytes # (A) 1.3 k/uL (1.0-4.8); Lymphocytes % (A) 26 %; MCH 29.4 pg (25.0-35.0); MCHC 32.7 g/dL (31.0-37.0); MCV 89.7 fL (80.0-100.0); Mean Platelet Volume 9.2; Monocytes # (A) 0.3 k/uL (0-1.0); Monocytes % (A) 6 %; Neutrophils # (A) 2.9 k/uL (1.3-7.7); Neutrophils % (A) 57 %; Platelet Count 106 k/uL (150-450); RBC 2.79 m/uL (4.30-5.90); RDW 16.6 % (11.5-15.5); WBC 5.1 k/uL (3.8-10.6)
--- NOTE | 2023-07-08 13:54 | US ---
EXAMINATION TYPE: US paracentesis abd w/image DATE OF EXAM: 07/08/2023 1:47 PM CLINICAL INDICATION:Male, 43 years old with history of R18.8; COMPARISON: 07/01/2023. ATTENDING: Dr. Marcin Calixto PROCEDURE: Informed consent was obtained. The risks of the procedure were extensively explained incl uding risk of damage to surrounding bowel with perforation and need for additional procedures. Proced ure was performed in the ultrasound procedure suite. Ultrasound imaging of the abdomen demonstrate as citic fluid. An appropriate access site was localized to the right lower abdomen. Timeout was taken p er protocol. The skin was prepped and draped in the usual sterile fashion and then locally anesthetiz ed with 1% lidocaine. The peritoneal cavity was then accessed via a 5-Bangladeshi one-step needle/cathete r. Approximately 32841 cc of cloudy straw-colored fluid was obtained. Samples were sent to the lab f or analysis. Postprocedural imaging of the abdomen demonstrate a minimal amount of abdominal fluid. Patient tolerated procedure well without immediate complication. Hemostasis at the procedural site w as obtained with a sterile bandage placed. The patient was monitored in the holding area following th e procedure and was subsequently discharged in stable condition. IMPRESSION: Ultrasound guided paracentesis, with approximately 28843 cc of cloudy straw-colored fluid drained. Pa thology results pending. No immediate complications were evident.
[2023-07-08 13:59] VITALS: RESP 18; TEMP 97.8
[2023-07-08 15:17] LABS: ALT 13 U/L (4-49); AST 35 U/L (17-59); Albumin 3.1 g/dL (3.5-5.0); Alkaline Phosphatase 73 U/L (38-126); Anion Gap 6 mmol/L; Blood Urea Nitrogen 28 mg/dL (9-20); Calcium 8.2 mg/dL (8.4-10.2); Carbon Dioxide 15 mmol/L (22-30); Chloride 110 mmol/L (98-107); Glucose 111 mg/dL (74-99); Potassium 4.3 mmol/L (3.5-5.1); Sodium 131 mmol/L (137-145); Total Bilirubin 1.3 mg/dL (0.2-1.3); Total Protein 6.4 g/dL (6.3-8.2)
[2023-07-08 16:22] VITALS: BP 95/51; PULSE 82
[2023-07-08 22:09] LABS: Appearance,BF Cloudy (Clear)
== END 2023-07-08 15:40 | disposition home or self-care (01) ==
LOC: RADPROMAIN 12:13
PROVIDERS: ATTEND Internal Medicine Gastroenterology
DX: R18.8 Other ascites (principal)
CPT/HCPCS: 80053; 89050; 85025; 85610; 49083; P9047

== ENCOUNTER 2023-07-15 12:33 | Day surgery (SDC) | payer OTHER ==
[2023-07-15 13:15] LABS: African American GFR (CKD) 78 (>60 ml/min/1.73 sqM); Non-African American GFR(CKD) 68 (>60 ml/min/1.73 sqM)
[2023-07-15 13:18] LABS: INR 1.4 (<1.2); Prothrombin Time 14.6 sec (10.0-12.5)
[2023-07-15 13:24] VITALS: TEMP 98.3
[2023-07-15 13:29] LABS: Anisocytosis Slight; Basophils # (A) 0.1 k/uL (0-0.2); Basophils % (A) 1 %; Eosinophils # (A) 0.2 k/uL (0-0.7); Eosinophils % (A) 5 %; HCT 26.1 % (39.0-53.0); HGB 8.4 gm/dL (13.0-17.5); Hypochromasia Marked; Lymphocytes # (A) 1.3 k/uL (1.0-4.8); Lymphocytes % (A) 24 %; MCH 29.2 pg (25.0-35.0); MCHC 32.3 g/dL (31.0-37.0); MCV 90.1 fL (80.0-100.0); Mean Platelet Volume 9.9; Monocytes # (A) 0.3 k/uL (0-1.0); Monocytes % (A) 6 %; Neutrophils # (A) 3.3 k/uL (1.3-7.7); Neutrophils % (A) 62 %; Platelet Count 110 k/uL (150-450); RBC 2.89 m/uL (4.30-5.90); RDW 17.3 % (11.5-15.5); WBC 5.4 k/uL (3.8-10.6)
[2023-07-15 13:31] LABS: ALT 16 U/L (4-49); AST 42 U/L (17-59); Albumin 3.5 g/dL (3.5-5.0); Alkaline Phosphatase 88 U/L (38-126); Anion Gap 10 mmol/L; Blood Urea Nitrogen 25 mg/dL (9-20); Calcium 8.5 mg/dL (8.4-10.2); Carbon Dioxide 13 mmol/L (22-30); Chloride 111 mmol/L (98-107); Glucose 110 mg/dL (74-99); Potassium 4.4 mmol/L (3.5-5.1); Sodium 134 mmol/L (137-145); Total Bilirubin 1.6 mg/dL (0.2-1.3); Total Protein 6.7 g/dL (6.3-8.2)
[2023-07-15] MEDS: ALBUMIN HUMAN 25% 50 ML in EMPTY BAG 1 BAG IVPB SCH ×2 (13:54→14:51)
[2023-07-15 14:36] VITALS: RESP 16
[2023-07-15 15:46] VITALS: BP 98/52; PULSE 72
[2023-07-16 04:56] LABS: Appearance,BF Cloudy (Clear)
--- NOTE | 2023-07-16 08:31 | US ---
Ultrasound-guided paracentesis. DATE OF EXAM: 07/15/2023 CLINICAL HISTORY: Ascites The procedure was discussed with the patient. The risks, complications, benefits, and alternatives we re discussed and any questions were answered. Informed consent was obtained. The patient was placed s upine on the ultrasound table and prepped and draped in the usual sterile fashion. All elements of maximal barrier technique were utilized. Under ultrasound guidance, access into the right lower quadrant was obtained, via the paracentesis catheter system and direct ultrasound guidanc e. Approximately 10 liters of straw-colored fluid was removed. The patient was stable throughout the pro cedure and remained stable upon discharge from Department of Radiology. IMPRESSION: Successful paracentesis under ultrasound guidance.
== END 2023-07-15 15:30 ==
LOC: RADPROMAIN 12:33
PROVIDERS: ATTEND Internal Medicine Gastroenterology
DX: R18.8 Other ascites (principal)
CPT/HCPCS: 80053; 89050; 85025; 85610; 36415; 49083; P9047

== ENCOUNTER 2023-07-22 12:31 | Day surgery (SDC) | payer OTHER ==
[2023-07-22] MEDS: ALBUMIN HUMAN 25% 50 ML in EMPTY BAG 1 BAG IVPB SCH ×2 (13:13→14:20)
[2023-07-22 13:25] VITALS: RESP 16; TEMP 97.9
[2023-07-22 13:29] LABS: African American GFR (CKD) 73 (>60 ml/min/1.73 sqM); Non-African American GFR(CKD) 63 (>60 ml/min/1.73 sqM)
[2023-07-22 13:46] LABS: Anisocytosis Slight; Basophils % (A) 1 %; Eosinophils # (A) 0.1 k/uL (0-0.7); Eosinophils % (A) 2 %; HCT 26.1 % (39.0-53.0); HGB 8.4 gm/dL (13.0-17.5); Hypochromasia Slight; Lymphocytes # (A) 0.7 k/uL (1.0-4.8); Lymphocytes % (A) 14 %; MCH 28.3 pg (25.0-35.0); MCHC 32.1 g/dL (31.0-37.0); MCV 88.1 fL (80.0-100.0); Mean Platelet Volume 9.5; Monocytes # (A) 0.4 k/uL (0-1.0); Monocytes % (A) 8 %; Neutrophils # (A) 3.8 k/uL (1.3-7.7); Neutrophils % (A) 73 %; Platelet Count 138 k/uL (150-450); RBC 2.97 m/uL (4.30-5.90); RDW 17.3 % (11.5-15.5); WBC 5.2 k/uL (3.8-10.6)
[2023-07-22 13:55] LABS: INR 1.3 (<1.2); Prothrombin Time 13.8 sec (10.0-12.5)
[2023-07-22 14:06] LABS: ALT 17 U/L (4-49); AST 51 U/L (17-59); Albumin 3.4 g/dL (3.5-5.0); Alkaline Phosphatase 79 U/L (38-126); Anion Gap 9 mmol/L; Blood Urea Nitrogen 28 mg/dL (9-20); Calcium 8.1 mg/dL (8.4-10.2); Carbon Dioxide 13 mmol/L (22-30); Chloride 108 mmol/L (98-107); Glucose 106 mg/dL (74-99); Sodium 130 mmol/L (137-145); Total Bilirubin 1.7 mg/dL (0.2-1.3); Total Protein 6.8 g/dL (6.3-8.2)
[2023-07-22 14:07] LABS: Potassium 4.8 mmol/L (3.5-5.1)
[2023-07-22 14:39] VITALS: BP 106/53; PULSE 76
--- NOTE | 2023-07-22 16:07 | US ---
Ultrasound-guided paracentesis. DATE OF EXAM: 07/22/2023 CLINICAL HISTORY: Ascites The procedure was discussed with the patient. The risks, complications, benefits, and alternatives we re discussed and any questions were answered. Informed consent was obtained. The patient was placed s upine on the ultrasound table and prepped and draped in the usual sterile fashion. All elements of maximal barrier technique were utilized. Under ultrasound guidance, access into the right lower quadrant was obtained, via the paracentesis catheter system and direct ultrasound guidanc e. Approximately 7 liters of straw-colored fluid was removed. The patient was stable throughout the proc edure and remained stable upon discharge from Department of Radiology. IMPRESSION: Successful paracentesis under ultrasound guidance.
[2023-07-23 05:58] LABS: Appearance,BF Cloudy (Clear)
== END 2023-07-22 15:00 | disposition home or self-care (01) ==
LOC: RADPROMAIN 12:31
PROVIDERS: ATTEND Internal Medicine Gastroenterology
DX: R18.8 Other ascites (principal)
CPT/HCPCS: 80053; 89050; 85025; 85610; 36415; 49083; P9047

== ENCOUNTER 2023-07-29 12:22 | Day surgery (SDC) | payer OTHER ==
[2023-07-29 13:04] LABS: Anisocytosis Slight; Basophils % (A) 1 %; Eosinophils # (A) 0.3 k/uL (0-0.7); Eosinophils % (A) 7 %; HCT 28.3 % (39.0-53.0); HGB 8.8 gm/dL (13.0-17.5); Hypochromasia Marked; Lymphocytes # (A) 1.5 k/uL (1.0-4.8); Lymphocytes % (A) 31 %; MCH 27.9 pg (25.0-35.0); MCHC 31.1 g/dL (31.0-37.0); MCV 89.8 fL (80.0-100.0); Mean Platelet Volume 9.3; Monocytes # (A) 0.3 k/uL (0-1.0); Monocytes % (A) 5 %; Neutrophils # (A) 2.6 k/uL (1.3-7.7); Neutrophils % (A) 54 %; Platelet Count 146 k/uL (150-450); RBC 3.15 m/uL (4.30-5.90); RDW 17.4 % (11.5-15.5); WBC 4.8 k/uL (3.8-10.6)
[2023-07-29 13:14] VITALS: TEMP 98.3
[2023-07-29 13:33] LABS: INR 1.2 (<1.2); Prothrombin Time 12.8 sec (10.0-12.5)
[2023-07-29] MEDS: ALBUMIN HUMAN 25% 50 ML in EMPTY BAG 1 BAG IVPB SCH ×2 (13:58→14:37)
[2023-07-29 14:12] LABS: ALT 18 U/L (4-49); AST 64 U/L (17-59); African American GFR (CKD) >90 (>60 ml/min/1.73 sqM); Albumin 3.4 g/dL (3.5-5.0); Alkaline Phosphatase 91 U/L (38-126); Anion Gap 9 mmol/L; Blood Urea Nitrogen 24 mg/dL (9-20); Carbon Dioxide 13 mmol/L (22-30); Chloride 110 mmol/L (98-107); Glucose 106 mg/dL (74-99); Non-African American GFR(CKD) 78 (>60 ml/min/1.73 sqM); Sodium 132 mmol/L (137-145); Total Bilirubin 1.1 mg/dL (0.2-1.3); Total Protein 6.8 g/dL (6.3-8.2)
[2023-07-29 14:19] LABS: Potassium 4.2 mmol/L (3.5-5.1)
[2023-07-29 15:50] VITALS: BP 101/53; PULSE 70; RESP 18
[2023-07-30 04:59] LABS: Appearance,BF Cloudy (Clear)
--- NOTE | 2023-08-03 09:32 | US ---
EXAMINATION TYPE: US paracentesis abd w/image DATE OF EXAM: 07/29/2023 2:07 PM CLINICAL INDICATION:Male, 43 years old with history of R18.8 OTHER ASCITES; COMPARISON: 07/22/2023 ATTENDING: Dr. Marcin Calixto PROCEDURE: Informed consent was obtained. The risks of the procedure were extensively explained incl uding risk of damage to surrounding bowel with perforation and need for additional procedures. Proced ure was performed in the ultrasound procedure suite. Ultrasound imaging of the abdomen demonstrate as citic fluid. An appropriate access site was localized to the right lower abdomen. Timeout was taken p er protocol. The skin was prepped and draped in the usual sterile fashion and then locally anesthetiz ed with 1% lidocaine. The peritoneal cavity was then accessed via a 5-Sinhala one-step needle/cathete r. Approximately 30843 cc of clear straw-colored fluid was obtained. Samples were sent to the lab fo r analysis. Postprocedural imaging of the abdomen demonstrate a minimal amount of abdominal fluid. Patient tolerated procedure well without immediate complication. Hemostasis at the procedural site w as obtained with a sterile bandage placed. The patient was monitored in the holding area following th e procedure and was subsequently discharged in stable condition. IMPRESSION: Ultrasound guided paracentesis, with approximately 14301 cc of clear straw-colored fluid drained. Pat hology results pending. No immediate complications were evident.
== END 2023-07-29 15:30 | disposition home or self-care (01) ==
LOC: RADPROMAIN 12:22
PROVIDERS: ATTEND Internal Medicine Gastroenterology
DX: R18.8 Other ascites (principal)
CPT/HCPCS: 80053; 89050; 85025; 85610; 36415; 49083; P9047

== ENCOUNTER 2023-08-05 12:27 | Day surgery (SDC) | payer OTHER ==
[2023-08-05] MEDS: ALBUMIN HUMAN 25% 50 ML in EMPTY BAG 1 BAG IVPB SCH ×2 (13:16→14:31)
[2023-08-05 13:22] LABS: Anisocytosis Slight; Basophils % (A) 1 %; Eosinophils # (A) 0.3 k/uL (0-0.7); Eosinophils % (A) 5 %; HCT 26.3 % (39.0-53.0); HGB 8.1 gm/dL (13.0-17.5); Hypochromasia Marked; Lymphocytes # (A) 1.1 k/uL (1.0-4.8); Lymphocytes % (A) 24 %; MCH 27.1 pg (25.0-35.0); MCHC 30.8 g/dL (31.0-37.0); MCV 88.1 fL (80.0-100.0); Mean Platelet Volume 9.2; Monocytes # (A) 0.4 k/uL (0-1.0); Monocytes % (A) 8 %; Neutrophils # (A) 2.8 k/uL (1.3-7.7); Neutrophils % (A) 59 %; Platelet Count 155 k/uL (150-450); RBC 2.99 m/uL (4.30-5.90); RDW 17.3 % (11.5-15.5); WBC 4.8 k/uL (3.8-10.6)
[2023-08-05 13:23] LABS: INR 1.4 (<1.2)
[2023-08-05 13:52] VITALS: TEMP 97.8
[2023-08-05 14:04] LABS: ALT 16 U/L (4-49); AST 33 U/L (17-59); African American GFR (CKD) >90 (>60 ml/min/1.73 sqM); Albumin 3.1 g/dL (3.5-5.0); Alkaline Phosphatase 74 U/L (38-126); Anion Gap 7 mmol/L; Blood Urea Nitrogen 25 mg/dL (9-20); Calcium 8.4 mg/dL (8.4-10.2); Carbon Dioxide 14 mmol/L (22-30); Chloride 112 mmol/L (98-107); Glucose 98 mg/dL (74-99); Non-African American GFR(CKD) >90 (>60 ml/min/1.73 sqM); Potassium 4.6 mmol/L (3.5-5.1); Sodium 133 mmol/L (137-145); Total Bilirubin 1.6 mg/dL (0.2-1.3); Total Protein 6.3 g/dL (6.3-8.2)
[2023-08-05 15:21] VITALS: RESP 16
[2023-08-05 16:01] VITALS: BP 84/55; PULSE 66
[2023-08-06 04:54] LABS: Appearance,BF Cloudy (Clear)
--- NOTE | 2023-08-06 08:31 | US ---
Ultrasound-guided paracentesis. DATE OF EXAM: 08/05/2023 CLINICAL HISTORY: Ascites The procedure was discussed with the patient. The risks, complications, benefits, and alternatives we re discussed and any questions were answered. Informed consent was obtained. The patient was placed s upine on the ultrasound table and prepped and draped in the usual sterile fashion. All elements of maximal barrier technique were utilized. Under ultrasound guidance, access into the right lower quadrant was obtained, via the paracentesis catheter system and direct ultrasound guidanc e. Approximately 10 liters of straw-colored fluid was removed. The patient was stable throughout the pro cedure and remained stable upon discharge from Department of Radiology. IMPRESSION: Successful paracentesis under ultrasound guidance.
== END 2023-08-05 15:20 | disposition home or self-care (01) ==
LOC: RADPROMAIN 12:27
PROVIDERS: ATTEND Internal Medicine Gastroenterology
DX: R18.8 Other ascites (principal)
CPT/HCPCS: 80053; 89050; 85025; 85610; 36415; 49083; P9047

== ENCOUNTER 2023-08-12 11:16 | Day surgery (SDC) | payer OTHER ==
[2023-08-12] MEDS ORDERED: ALBUMIN HUMAN 25% 50 ML in EMPTY BAG 1 BAG IVPB SCH (11:45)
[2023-08-12 13:08] LABS: Anisocytosis Slight; Basophils # (A) 0.1 k/uL (0-0.2); Basophils % (A) 1 %; Eosinophils # (A) 0.2 k/uL (0-0.7); Eosinophils % (A) 4 %; HCT 28.6 % (39.0-53.0); HGB 8.8 gm/dL (13.0-17.5); Hypochromasia Moderate; Lymphocytes # (A) 1.2 k/uL (1.0-4.8); Lymphocytes % (A) 22 %; MCH 26.8 pg (25.0-35.0); MCHC 30.7 g/dL (31.0-37.0); MCV 87.1 fL (80.0-100.0); Mean Platelet Volume 9.2; Monocytes # (A) 0.4 k/uL (0-1.0); Monocytes % (A) 6 %; Neutrophils # (A) 3.6 k/uL (1.3-7.7); Neutrophils % (A) 65 %; Platelet Count 125 k/uL (150-450); RBC 3.29 m/uL (4.30-5.90); WBC 5.5 k/uL (3.8-10.6)
[2023-08-12] MEDS: ALBUMIN HUMAN 25% 50 ML in EMPTY BAG 1 BAG IVPB SCH ×2 (13:12→13:28)
[2023-08-12 13:18] LABS: ALT 15 U/L (4-49); AST 35 U/L (17-59); African American GFR (CKD) >90 (>60 ml/min/1.73 sqM); Albumin 3.3 g/dL (3.5-5.0); Alkaline Phosphatase 79 U/L (38-126); Anion Gap 6 mmol/L; Blood Urea Nitrogen 29 mg/dL (9-20); Calcium 8.5 mg/dL (8.4-10.2); Carbon Dioxide 16 mmol/L (22-30); Chloride 112 mmol/L (98-107); Glucose 102 mg/dL (74-99); Non-African American GFR(CKD) 90 (>60 ml/min/1.73 sqM); Sodium 134 mmol/L (137-145); Total Bilirubin 1.1 mg/dL (0.2-1.3); Total Protein 6.4 g/dL (6.3-8.2)
[2023-08-12 13:22] LABS: INR 1.2 (<1.2)
[2023-08-12 13:26] VITALS: TEMP 98
[2023-08-12 14:52] VITALS: PULSE 72; RESP 18
[2023-08-12 15:32] VITALS: BP 104/68
[2023-08-13 04:58] LABS: Appearance,BF Cloudy (Clear)
--- NOTE | 2023-08-13 15:23 | US ---
EXAMINATION TYPE: US paracentesis abd w/image DATE OF EXAM: 08/12/2023 2:04 PM CLINICAL INDICATION:Male, 43 years old with history of R18.8 OTHER ASCITES; COMPARISON: 08/05/2023 ATTENDING: Dr. Marcin Calixto PROCEDURE: Informed consent was obtained. The risks of the procedure were extensively explained incl uding risk of damage to surrounding bowel with perforation and need for additional procedures. Proced ure was performed in the ultrasound procedure suite. Ultrasound imaging of the abdomen demonstrate as citic fluid. An appropriate access site was localized to the right lower abdomen. Timeout was taken p er protocol. The skin was prepped and draped in the usual sterile fashion and then locally anesthetiz ed with 1% lidocaine. The peritoneal cavity was then accessed via a 5-Bangladeshi one-step needle/cathete r. Approximately 79010 cc of clear straw-colored fluid was obtained. Samples were sent to the lab fo r analysis. Postprocedural imaging of the abdomen demonstrate a minimal amount of abdominal fluid. Patient tolerated procedure well without immediate complication. Hemostasis at the procedural site w as obtained with a sterile bandage placed. The patient was monitored in the holding area following th e procedure and was subsequently discharged in stable condition. IMPRESSION: Ultrasound guided paracentesis, with approximately 36601 cc of clear straw-colored fluid drained. Pat hology results pending. No immediate complications were evident.
== END 2023-08-12 15:00 | disposition home or self-care (01) ==
LOC: RADPROMAIN 11:16
PROVIDERS: ATTEND Internal Medicine Gastroenterology
DX: R18.8 Other ascites (principal)
CPT/HCPCS: 80053; 89050; 85025; 85610; 36415; 49083; P9047

== ENCOUNTER → 2023-08-12 | Outpatient (CLI) | payer OTHER ==
--- NOTE | 2023-08-12 21:42 | US ---
EXAMINATION TYPE: US thyroid st tissue head/neck DATE OF EXAM: 08/12/2023 COMPARISON: NONE CLINICAL INDICATION: Male, 43 years old with history of R94.6 ABNORMAL RESULTS OF THYROID FUNCTION ST UDIES; GLAND SIZE: Right Lobe: 5.7 x 2.3 x 2.0 cm Overall Parenchyma: homogeneous Left Lobe: 5.4 x 2.0 x 1.6 cm Overall Parenchyma: homogeneous Isthmus Thickness: 0.28 cm NODULES RIGHT: # of nodules measured on right: 0 LEFT: # of nodules measured on left: 1 1. 0.7 X 0.5 x 0.7 cm, lower mid, solid or almost completely solid, hypoechoic nodule, which is wid er than tall, with smooth margins, without echogenic foci. (subcentimeter) ISTHMUS: # of nodules measured in the isthmus: 0 Bilateral neck scanned, no evidence of lymphadenopathy. IMPRESSION: Moderately suspicious subcentimeter nodule left lobe thyroid. Consider follow-up in one year 2017 ACR TI-RADS LEVEL: TR-RADS 4 - Moderately Suspicious: Follow if > 1 cm, FNA if > 1.5 cm *Highest TI-RADS level nodule reported
== END | disposition home or self-care (01) ==
LOC: RADUSWWP 10:45
PROVIDERS: ATTEND Family Medicine
DX: R94.6 Abnormal results of thyroid function studies (principal); R04.1 Hemorrhage from throat
CPT/HCPCS: 76536

== ENCOUNTER 2023-08-19 12:15 | Day surgery (SDC) | payer OTHER ==
[2023-08-19] MEDS: ALBUMIN HUMAN 25% 50 ML in EMPTY BAG 1 BAG IVPB SCH ×3 (12:55→12:57)
[2023-08-19 12:56] LABS: Anisocytosis Slight; Basophils # (A) 0.1 k/uL (0-0.2); Basophils % (A) 1 %; Eosinophils # (A) 0.4 k/uL (0-0.7); Eosinophils % (A) 7 %; HCT 26.3 % (39.0-53.0); HGB 8.4 gm/dL (13.0-17.5); Hypochromasia Moderate; Lymphocytes # (A) 1.3 k/uL (1.0-4.8); Lymphocytes % (A) 25 %; MCH 27.6 pg (25.0-35.0); MCHC 31.7 g/dL (31.0-37.0); MCV 86.9 fL (80.0-100.0); Mean Platelet Volume 8.6; Monocytes # (A) 0.3 k/uL (0-1.0); Monocytes % (A) 6 %; Neutrophils # (A) 3.1 k/uL (1.3-7.7); Neutrophils % (A) 60 %; Platelet Count 126 k/uL (150-450); RBC 3.03 m/uL (4.30-5.90); RDW 18.3 % (11.5-15.5); WBC 5.3 k/uL (3.8-10.6)
[2023-08-19 13:06] LABS: ALT 18 U/L (4-49); African American GFR (CKD) >90 (>60 ml/min/1.73 sqM); Albumin 3.3 g/dL (3.5-5.0); Anion Gap 8 mmol/L; Blood Urea Nitrogen 25 mg/dL (9-20); Calcium 8.1 mg/dL (8.4-10.2); Carbon Dioxide 15 mmol/L (22-30); Chloride 110 mmol/L (98-107); Glucose 94 mg/dL (74-99); Non-African American GFR(CKD) 82 (>60 ml/min/1.73 sqM); Sodium 133 mmol/L (137-145); Total Bilirubin 1.4 mg/dL (0.2-1.3); Total Protein 6.4 g/dL (6.3-8.2)
[2023-08-19 13:07] LABS: Potassium 4.6 mmol/L (3.5-5.1)
[2023-08-19 13:08] LABS: AST 46 U/L (17-59); Alkaline Phosphatase 84 U/L (38-126)
[2023-08-19 13:11] VITALS: RESP 16; TEMP 98.1
[2023-08-19 13:11] LABS: INR 1.3 (<1.2); Prothrombin Time 13.4 sec (10.0-12.5)
[2023-08-19 15:29] VITALS: BP 113/60; PULSE 75
[2023-08-20 04:57] LABS: Appearance,BF Turbid (Clear)
--- NOTE | 2023-08-20 13:56 | US ---
EXAMINATION TYPE: US paracentesis abd w/image (therapeutic and diagnostic) DATE OF EXAM: 08/19/2023 CLINICAL HISTORY: 43-year-old male R18.8, routine outpatient paracentesis The procedure was discussed with the patient. The risks, complications, benefits, and alternatives we re discussed and any questions were answered. Informed consent was obtained. The patient was placed s upine on the ultrasound table and prepped and draped in the usual sterile fashion. All elements of maximal barrier technique were utilized. Ultrasound was utilized to determine the precise skin entry site along the right lower quadrant/left flank. A 5 Frisian One-Step catheter and trocar technique was utilized to access the ascites collection under direct ultrasound guidance. Approximately 10.3 liters of typical, slightly opaque, straw-colored fluid was removed. An initial 60 mL syringe was obtained and sent for laboratory analysis. Catheter was removed, hemostasis obtained, and a dressing placed. The patient was stable throughout the procedure and remained stable upon discharge from Department of Radiology. IMPRESSION: Successful diagnostic and therapeutic paracentesis under ultrasound guidance. 5.9 L of fluid removed.
== END 2023-08-19 15:05 | disposition home or self-care (01) ==
LOC: RADPROMAIN 12:15
PROVIDERS: ATTEND Internal Medicine Gastroenterology
DX: R18.8 Other ascites (principal)
CPT/HCPCS: 88108; 88305; 80053; 89050; 85025; 85610; 49083; P9047

== ENCOUNTER 2023-08-26 12:32 | Day surgery (SDC) | payer OTHER ==
[2023-08-26 13:19] LABS: Anisocytosis Slight; Basophils % (A) 1 %; Eosinophils # (A) 0.2 k/uL (0-0.7); Eosinophils % (A) 4 %; HCT 27.5 % (39.0-53.0); HGB 8.7 gm/dL (13.0-17.5); Hypochromasia Moderate; Lymphocytes # (A) 1.4 k/uL (1.0-4.8); Lymphocytes % (A) 26 %; MCH 27.3 pg (25.0-35.0); MCHC 31.7 g/dL (31.0-37.0); MCV 86.1 fL (80.0-100.0); Mean Platelet Volume 9.6; Monocytes # (A) 0.3 k/uL (0-1.0); Monocytes % (A) 5 %; Neutrophils # (A) 3.3 k/uL (1.3-7.7); Neutrophils % (A) 62 %; Platelet Count 113 k/uL (150-450); RBC 3.19 m/uL (4.30-5.90); RDW 18.6 % (11.5-15.5); WBC 5.3 k/uL (3.8-10.6)
[2023-08-26 13:24] VITALS: RESP 16
[2023-08-26 13:34] LABS: INR 1.3 (<1.2); Prothrombin Time 13.6 sec (10.0-12.5)
[2023-08-26 13:43] LABS: ALT 18 U/L (4-49); AST 34 U/L (17-59); African American GFR (CKD) 86 (>60 ml/min/1.73 sqM); Albumin 3.3 g/dL (3.5-5.0); Alkaline Phosphatase 76 U/L (38-126); Anion Gap 8 mmol/L; Blood Urea Nitrogen 25 mg/dL (9-20); Calcium 8.6 mg/dL (8.4-10.2); Carbon Dioxide 18 mmol/L (22-30); Chloride 107 mmol/L (98-107); Glucose 104 mg/dL (74-99); Non-African American GFR(CKD) 74 (>60 ml/min/1.73 sqM); Potassium 4.2 mmol/L (3.5-5.1); Sodium 133 mmol/L (137-145); Total Bilirubin 1.5 mg/dL (0.2-1.3); Total Protein 6.4 g/dL (6.3-8.2)
[2023-08-26] MEDS: ALBUMIN HUMAN 25% 50 ML in EMPTY BAG 1 BAG IVPB SCH ×2 (13:45→14:17)
[2023-08-26 15:12] VITALS: BP 107/60; PULSE 77; TEMP 98
--- NOTE | 2023-08-26 15:28 | US ---
Ultrasound-guided paracentesis. DATE OF EXAM: 08/26/2023 CLINICAL HISTORY: Ascites The procedure was discussed with the patient. The risks, complications, benefits, and alternatives we re discussed and any questions were answered. Informed consent was obtained. The patient was placed s upine on the ultrasound table and prepped and draped in the usual sterile fashion. All elements of maximal barrier technique were utilized. Under ultrasound guidance, access into the right lower quadrant was obtained, via the paracentesis catheter system and direct ultrasound guidanc e. Approximately 10 liters of straw-colored fluid was removed. The patient was stable throughout the pro cedure and remained stable upon discharge from Department of Radiology. IMPRESSION: Successful paracentesis under ultrasound guidance.
[2023-08-26 22:20] LABS: Appearance,BF Turbid (Clear)
== END 2023-08-26 15:49 | disposition home or self-care (01) ==
LOC: RADPROMAIN 12:32
PROVIDERS: ATTEND Internal Medicine Gastroenterology
DX: R18.8 Other ascites (principal)
CPT/HCPCS: 80053; 89050; 85025; 85610; 36415; 49083; P9047

== ENCOUNTER 2023-09-02 12:10 | Day surgery (SDC) | payer OTHER ==
[2023-09-02] MEDS ORDERED: ALBUMIN HUMAN 25% 50 ML in EMPTY BAG 1 BAG IVPB SCH (12:15)
[2023-09-02 12:57] LABS: ALT 15 U/L (4-49); AST 34 U/L (17-59); African American GFR (CKD) >90 (>60 ml/min/1.73 sqM); Albumin 3.6 g/dL (3.5-5.0); Alkaline Phosphatase 76 U/L (38-126); Anion Gap 9 mmol/L; Blood Urea Nitrogen 26 mg/dL (9-20); Calcium 8.6 mg/dL (8.4-10.2); Carbon Dioxide 18 mmol/L (22-30); Chloride 108 mmol/L (98-107); Glucose 103 mg/dL (74-99); Non-African American GFR(CKD) 80 (>60 ml/min/1.73 sqM); Potassium 4.7 mmol/L (3.5-5.1); Sodium 135 mmol/L (137-145); Total Bilirubin 1.3 mg/dL (0.2-1.3); Total Protein 6.7 g/dL (6.3-8.2)
[2023-09-02 13:06] LABS: Anisocytosis Slight; Basophils # (A) 0.1 k/uL (0-0.2); Basophils % (A) 1 %; Eosinophils # (A) 0.2 k/uL (0-0.7); Eosinophils % (A) 4 %; HCT 27.4 % (39.0-53.0); HGB 8.6 gm/dL (13.0-17.5); Hypochromasia Marked; Lymphocytes % (A) 22 %; MCH 27.3 pg (25.0-35.0); MCHC 31.4 g/dL (31.0-37.0); Monocytes # (A) 0.3 k/uL (0-1.0); Monocytes % (A) 6 %; Neutrophils % (A) 65 %; Platelet Count 139 k/uL (150-450); RBC 3.14 m/uL (4.30-5.90); RDW 18.4 % (11.5-15.5); WBC 4.6 k/uL (3.8-10.6)
[2023-09-02] MEDS: ALBUMIN HUMAN 25% 50 ML in EMPTY BAG 1 BAG IVPB SCH (13:09)
[2023-09-02 13:16] LABS: INR 1.2 (<1.2); Prothrombin Time 13.2 sec (10.0-12.5)
[2023-09-02 13:41] VITALS: TEMP 98.1
--- NOTE | 2023-09-02 14:50 | US ---
Ultrasound-guided paracentesis. DATE OF EXAM: 09/02/2023 CLINICAL HISTORY: Ascites The procedure was discussed with the patient. The risks, complications, benefits, and alternatives we re discussed and any questions were answered. Informed consent was obtained. The patient was placed s upine on the ultrasound table and prepped and draped in the usual sterile fashion. All elements of maximal barrier technique were utilized. Under ultrasound guidance, access into the right lower quadrant was obtained, via the paracentesis catheter system and direct ultrasound guidanc e. Approximately 8.1 liters of straw-colored fluid was removed. The patient was stable throughout the pr ocedure and remained stable upon discharge from Department of Radiology. IMPRESSION: Successful paracentesis under ultrasound guidance.
[2023-09-02 16:00] VITALS: BP 105/59; PULSE 65; RESP 18
[2023-09-02 21:17] LABS: Appearance,BF Slightly Cloudy (Clear)
== END 2023-09-02 14:50 | disposition home or self-care (01) ==
LOC: RADPROMAIN 12:10
PROVIDERS: ATTEND Internal Medicine Gastroenterology
DX: R18.8 Other ascites (principal)
CPT/HCPCS: 80053; 89050; 85025; 85610; 36415; 49083; P9047

== ENCOUNTER 2023-09-04 05:35 | Emergency (ER) | payer OTHER ==
[2023-09-04 06:05] VITALS: TEMP 97
[2023-09-04] MEDS: HYDROmorphone 1 MG/ML 1 ML SYRINGE IVP STA (06:39)
--- NOTE | 2023-09-04 06:45 | ED ---
Abdominal Pain HPI - General Source: patient, RN notes reviewed, old records reviewed Mode of arrival: EMS Limitations: no limitations - History of Present Illness MD Complaint: abdominal pain -: days(s) Location: periumbilical Migration to: periumbilical Severity: severe Severity scale (1-10): 10 Quality: cramping, stabbing, aching Consistency: constant Improves With: nothing, bowel movement Associated Symptoms: nausea Treatments Prior to Arrival: other (00) <Luis Restrepo - Last Filed: 09/04/23 06:45> <Luis Bell - Last Filed: 09/04/23 09:39> - General Chief Complaint: Abdominal Pain Stated Complaint: abd pain Time Seen by Provider: 09/04/23 05:39 - History of Present Illness Initial Comments: This is a 43-year-old male to the ER for evaluation today. [place] evaluation of severe abdominal pain. Patient is well-known to this emergency department for significant history of cirrhosis. Patient has been doing paracentesis therapeutic, patient presents today for severe abdominal pain with known umbilical hernia and pain to his hernia site. (Luis Restrepo) - Related Data Home Medications Medication Instructions Recorded Confirmed HYDROcodone/APAP 5-325MG [[place] 1 - 2 tab PO Q4HR PRN 05/06/23 09/02/23 5-325] Midodrine HCl [ProAmatine] 10 mg PO TID 05/06/23 09/02/23 Pantoprazole [Protonix] 40 mg PO DAILY 05/06/23 09/02/23 Previous Rx's Medication Instructions Recorded Furosemide [Lasix] 40 mg PO DAILY #30 tablet 03/02/23 Spironolactone [Aldactone] 25 mg PO BID #60 tab 05/14/23 Allergies Allergy/AdvReac Type Severity Reaction Status Date / Time ibuprofen [From Motrin] Allergy Swelling Verified 09/04/23 05:46 Lips naproxen Allergy Swelling Verified 09/04/23 05:46 Lips Review of Systems ROS Other: All systems not noted in ROS Statement are negative. <Luis Restrepo - Last Filed: 09/04/23 06:45> ROS Other: All systems not noted in ROS Statement are negative. <Luis Bell - Last Filed: 09/04/23 09:39> ROS Statement: Those systems with pertinent positive or pertinent negative responses have been documented in the HPI. Past Medical History Past Medical History: Hyperlipidemia, Hypertension, Liver Disease, Pneumonia Additional Past Medical History / Comment(s): Alcoholism, past withdrawals with tremors/diaphoresis, elevated LFTs, alcoholic liver cirrhosis, ascities with paracentesis, severe sepsis/aspiration pneumonia, occasional upper back pain. History of Any Multi-Drug Resistant Organisms: None Reported Past Surgical History: No Surgical Hx Reported Additional Past Surgical History / Comment(s): Pt states he has never had surg tiki, multi large volume paracentesis weekly Past Anesthesia/Blood Transfusion Reactions: Unable to Obtain Additional Past Anesthesia/Blood Transfusion Reaction / Comment(s): Pt states he has never had surgery. Past Psychological History: Depression, PTSD Smoking Status: Current every day smoker Past Alcohol Use History: None Reported, Abuse Past Drug Use History: None Reported - Past Family History Mother Family Medical History: Cancer Additional Family Medical History / Comment(s): Mother has colon cancer. Father History Unknown: Yes Additional Family Medical History / Comment(s): All pt knows about his father is that he is . <AllysonmarissaMoustaphae B - Last Filed: 09/04/23 06:45> General Exam Limitations: no limitations General appearance: alert, in no apparent distress Head exam: Present: atraumatic, normocephalic, normal inspection Eye exam: Present: normal appearance, PERRL, EOMI. Absent: scleral icterus, conjunctival injection, periorbital swelling ENT exam: Present: normal exam, mucous membranes moist Neck exam: Present: normal inspection. Absent: tenderness, meningismus, lymphadenopathy Respiratory exam: Present: normal lung sounds bilaterally. Absent: respiratory distress, wheezes, rales, rhonchi, stridor Cardiovascular Exam: Present: regular rate, normal rhythm, normal heart sounds. Absent: systolic murmur, diastolic murmur, rubs, gallop, clicks GI/Abdominal exam: Present: soft, normal bowel sounds. Absent: distended, tenderness, guarding, rebound, rigid Extremities exam: Present: normal inspection, full ROM, normal capillary refill. Absent: tenderness, pedal edema, joint swelling, calf tenderness Back exam: Present: normal inspection Neurological exam: Present: alert, oriented X3, CN II-XII intact Psychiatric exam: Present: normal affect, normal mood Skin exam: Present: warm, dry, intact, normal color. Absent: rash <Luis Restrepo - Last Filed: 09/04/23 06:45> Course <Luis Restrepo - Last Filed: 09/04/23 06:45> Vital Signs 09/04/23 09/04/23 09/04/23 05:38 06:41 09:13 Temperature 97.0 F L Pulse Rate 80 88 93 Respiratory 22 20 18 Rate Blood Pressure 129/69 123/67 114/64 O2 Sat by Pulse 100 98 100 Oximetry - Reevaluation(s) Reevaluation #1: 09/04/23 06:45 Medical records reviewed (Luis Restrepo) Reevaluation #2: 09/04/23 06:45 Patient symptoms improving (Luis Restrepo) Reevaluation #4: Was pt. sent in by a medical professional or institution (, PA, FEEDER WORKER POWER UNIT OPERATOR, urgent care, hospital, or longterm...) When possible be specific @ -no Did you speak to anyone other than the patient for history (EMS, parent, family, police, friend...)? What history was obtained from this source @ -no Did you review nursing and triage notes (agree or disagree)? Why? @ -agree Are old charts reviewed (outside hosp., previous admission, EMS record, old EKG, old radiological studies, urgent care reports/EKG's, longterm records)? Report findings @ -yes Differential Diagnosis (chest pain, altered mental status, abdominal pain women, abdominal pain men, vaginal bleeding, weakness, fever, dyspnea, syncope, headache, dizziness, GI bleed, back pain, seizure, CVA, palpatations, mental health, musculoskeletal)? @ -prior EKG interpreted by me (3pts min.). @ -yes X-rays interpreted by me (1pt min.). @ -yes negative for acute disease CT interpreted by me (1pt min.). @ -no U/S interpreted by me (1pt. min.). @ -no What testing was considered but not performed or refused? (CT, X-rays, U/S, labs)? Why? @ -none What meds were considered but not given or refused? Why? @ -none Did you discuss the management of the patient with other professionals (professionals i.e. , PA, FEEDER WORKER POWER UNIT OPERATOR, lab, RT, psych nurse, social work specialist, senior java web application developer, teacher, senior major gifts officer, pillowcase cleaner)? Give summary @ -no Was smoking cessation discussed for >3mins.? @ -no Was critical care preformed (if so, how long)? @ -no Were there social determinants of health that impacted care today? How? (Homelessness, low income, unemployed, alcoholism, drug addiction, transportation, low edu. Level, literacy, decrease access to med. care, [facility], rehab)? @ -none Was there de-escalation of care discussed even if they declined (Discuss DNR or withdrawal of care, Hospice)? DNR status @ -no What co-morbidities impacted this encounter? (DM, HTN, Smoking, COPD, CAD, Cancer, CVA, ARF, Chemo, Hep., AIDS, mental health diagnosis, sleep apnea, morbid obesity)? @ -none Was patient admitted / discharged? Hospital course, mention meds given and route, prescriptions, significant lab abnormalities, going to OR and other pertinent info. @ - Undiagnosed new problem with uncertain prognosis? @ -no Drug Therapy requiring intensive monitoring for toxicity (Heparin, Nitro, Insulin, Cardizem)? @ -no Were any procedures done? @ -no Diagnosis/symptom? @ - Acute, or Chronic, or Acute on Chronic? @ -Acute Uncomplicated (without systemic symptoms) or Complicated (systemic symptoms)? @ -Complicated Side effects of treatment? @ -no Exacerbation, Progression, or Severe Exacerbation? @ -exacerbation Poses a threat to life or bodily function? How? (Chest pain, [place], [place], pneumonia, PE, COPD, DKA, ARF, appy, cholecystitis, CVA, Diverticulitis, Homicidal, Suicidal, threat to staff... and all critical care pts) @ -yes (Luis Restrepo) Reevaluation #5: Differential Abdominal Pain Men: Appendicitis, cholecystitis, diverticulosis, ischemic bowel, pancreatitis, hepatitis, UTI, gastroenteritis, AAA, incarcerated hernia, bowel obstruction, constipation, inflammatory bowel, hepatitis, peptic ulcer disease, splenic infarction, perforated viscus, testicular torsion, this is not meant to be an all-inclusive list (Luis Restrepo) Medical Decision Making - Lab Data Result diagrams: 09/04/23 06:27 09/04/23 06:27 <Luis Bell - Last Filed: 09/04/23 09:39> - Medical Decision Making Was patient admitted / discharged? Hospital course, mention meds given and route, prescriptions, significant lab abnormalities, going to OR and other pertinent info. @ -Patient was signed out to me by Dr. Restrepo. Patient's CAT scan came back and it showed a umbilical hernia with a small bowel inside. I went to the room to examine the patient patient's hernia was completely reducible. Patient was still having a little residual pain I did give him 1.5 of Dilaudid. Undiagnosed new problem with uncertain prognosis? @ -No Drug Therapy requiring intensive monitoring for toxicity (Heparin, Nitro, Insulin, Cardizem)? @ -No Were any procedures done? @ -No Diagnosis/symptom? @ -Abdominal pain Acute, or Chronic, or Acute on Chronic? @ -Acute Uncomplicated (without systemic symptoms) or Complicated (systemic symptoms)? @ -Complicated Side effects of treatment? @ -No Exacerbation, Progression, or Severe Exacerbation? @ -No Poses a threat to life or bodily function? How? (Chest pain, [place], [place], pneumonia, PE, COPD, DKA, ARF, appy, cholecystitis, CVA, Diverticulitis, Homicidal, Suicidal, threat to staff... and all critical care pts) @ -No Diagnosis/symptom? @ -Umbilical hernia Acute, or Chronic, or Acute on Chronic? @ -Acute Uncomplicated (without systemic symptoms) or Complicated (systemic symptoms)? @ -Complicated Side effects of treatment? @ -None Exacerbation, Progression, or Severe Exacerbation] @ -No Poses a threat to life or bodily function? @ -No Diagnosis/symptom? @ -Ascites Acute, or Chronic, or Acute on Chronic? @ -chronic Uncomplicated (without systemic symptoms) or Complicated (systemic symptoms)? @ -Uncomplicated Side effects of treatment? @ -None Exacerbation, Progression, or Severe Exacerbation] @ -No Poses a threat to life or bodily function? @ -No (Luis Bell) - Lab Data Lab Results 09/04/23 09/04/23 09/04/23 Range/Units 06:27 06:27 06:27 WBC 3.9 (3.8-10.6) k/uL RBC 2.81 L (4.30-5.90) m/uL Hgb 7.8 L (13.0-17.5) gm/dL Hct 24.5 L (39.0-53.0) % MCV 87.2 (80.0-100.0) fL MCH 27.7 (25.0-35.0) pg MCHC 31.7 (31.0-37.0) g/dL RDW 18.3 H (11.5-15.5) % Plt Count 95 L (150-450) k/uL MPV 9.9 Neutrophils % 76 % Lymphocytes % 16 % Monocytes % 4 % Eosinophils % 1 % Basophils % 1 % Neutrophils # 3.0 (1.3-7.7) k/uL Lymphocytes # 0.6 L (1.0-4.8) k/uL Monocytes # 0.2 (0-1.0) k/uL Eosinophils # 0.0 (0-0.7) k/uL Basophils # 0.0 (0-0.2) k/uL Manual Slide Review Performed Hypochromasia Marked Poikilocytosis (manual Present Anisocytosis Slight PT 13.9 H (10.0-12.5) sec INR 1.3 H (<1.2) APTT 27.9 (22.0-30.0) sec Sodium 134 L (137-145) mmol/L Potassium 4.0 (3.5-5.1) mmol/L Chloride 108 H (98-107) mmol/L Carbon Dioxide 13 L (22-30) mmol/L Anion Gap 13 mmol/L BUN 31 H (9-20) mg/dL Creatinine 0.96 (0.66-1.25) mg/dL Est GFR (CKD-EPI)AfAm >90 (>60 ml/min/1.73 sqM) Est GFR (CKD-EPI)NonAf >90 (>60 ml/min/1.73 sqM) Glucose 145 H (74-99) mg/dL Calcium 8.9 (8.4-10.2) mg/dL Total Bilirubin 1.2 (0.2-1.3) mg/dL AST 29 (17-59) U/L ALT 15 (4-49) U/L Alkaline Phosphatase 74 (38-126) U/L Ammonia (<30) umol/L Total Protein 6.5 (6.3-8.2) g/dL Albumin 3.8 (3.5-5.0) g/dL Amylase 53 (30-110) U/L Lipase 93 (23-300) U/L 09/04/23 Range/Units 06:27 WBC (3.8-10.6) k/uL RBC (4.30-5.90) m/uL Hgb (13.0-17.5) gm/dL Hct (39.0-53.0) % MCV (80.0-100.0) fL MCH (25.0-35.0) pg MCHC (31.0-37.0) g/dL RDW (11.5-15.5) % Plt Count (150-450) k/uL MPV Neutrophils % % Lymphocytes % % Monocytes % % Eosinophils % % Basophils % % Neutrophils # (1.3-7.7) k/uL Lymphocytes # (1.0-4.8) k/uL Monocytes # (0-1.0) k/uL Eosinophils # (0-0.7) k/uL Basophils # (0-0.2) k/uL Manual Slide Review Hypochromasia Poikilocytosis (manual Anisocytosis PT (10.0-12.5) sec INR (<1.2) APTT (22.0-30.0) sec Sodium (137-145) mmol/L Potassium (3.5-5.1) mmol/L Chloride (98-107) mmol/L Carbon Dioxide (22-30) mmol/L Anion Gap mmol/L BUN (9-20) mg/dL Creatinine (0.66-1.25) mg/dL Est GFR (CKD-EPI)AfAm (>60 ml/min/1.73 sqM) Est GFR (CKD-EPI)NonAf (>60 ml/min/1.73 sqM) Glucose (74-99) mg/dL Calcium (8.4-10.2) mg/dL Total Bilirubin (0.2-1.3) mg/dL AST (17-59) U/L ALT (4-49) U/L Alkaline Phosphatase (38-126) U/L Ammonia 64 H (<30) umol/L Total Protein (6.3-8.2) g/dL Albumin (3.5-5.0) g/dL Amylase (30-110) U/L Lipase (23-300) U/L Disposition <Lusi Restrepo - Last Filed: 09/04/23 06:45> Is patient prescribed a controlled substance at d/c from ED?: No Time of Disposition: 09:39 <Luis Bell - Last Filed: 09/04/23 09:39> Clinical Impression: Umbilical hernia, Abdominal pain, Ascites Disposition: HOME SELF-CARE Condition: Good Instructions (If sedation given, give patient instructions): Abdominal Pain (ED), Umbilical Hernia (ED) Referrals: [facility],Clinic [Primary Care Provider] - 1-2 days
[2023-09-04 06:48] LABS: ALT 15 U/L (4-49); AST 29 U/L (17-59); African American GFR (CKD) >90 (>60 ml/min/1.73 sqM); Albumin 3.8 g/dL (3.5-5.0); Alkaline Phosphatase 74 U/L (38-126); Amylase 53 U/L (30-110); Anion Gap 13 mmol/L; Blood Urea Nitrogen 31 mg/dL (9-20); Calcium 8.9 mg/dL (8.4-10.2); Carbon Dioxide 13 mmol/L (22-30); Chloride 108 mmol/L (98-107); Glucose 145 mg/dL (74-99); Lipase 93 U/L (23-300); Non-African American GFR(CKD) >90 (>60 ml/min/1.73 sqM); Sodium 134 mmol/L (137-145); Total Bilirubin 1.2 mg/dL (0.2-1.3); Total Protein 6.5 g/dL (6.3-8.2)
[2023-09-04 06:49] LABS: Anisocytosis Slight; Basophils % (A) 1 %; Eosinophils % (A) 1 %; HCT 24.5 % (39.0-53.0); HGB 7.8 gm/dL (13.0-17.5); Hypochromasia Marked; Lymphocytes # (A) 0.6 k/uL (1.0-4.8); Lymphocytes % (A) 16 %; MCH 27.7 pg (25.0-35.0); MCHC 31.7 g/dL (31.0-37.0); MCV 87.2 fL (80.0-100.0); Mean Platelet Volume 9.9; Monocytes # (A) 0.2 k/uL (0-1.0); Monocytes % (A) 4 %; Neutrophils % (A) 76 %; RBC 2.81 m/uL (4.30-5.90); RDW 18.3 % (11.5-15.5); WBC 3.9 k/uL (3.8-10.6)
[2023-09-04 06:50] LABS: INR 1.3 (<1.2); Partial Thromboplastin Time 27.9 sec (22.0-30.0); Prothrombin Time 13.9 sec (10.0-12.5)
[2023-09-04 07:34] LABS: Platelet Count 95 k/uL (150-450); Poikilocytosis (M) Present
--- NOTE | 2023-09-04 09:11 | CT ---
EXAMINATION TYPE: CT abdomen pelvis wo con DATE OF EXAM: 09/04/2023 COMPARISON: 10/05/2022 HISTORY: 43-year-old male umbilical abdominal pain, last paracentesis 09/02/2023 CT DLP: 515.2 mGycm. Automated exposure control for dose reduction was used. TECHNIQUE: Contiguous axial scanning of the abdomen and pelvis without IV contrast. Coronal and sagit any reconstructions performed. FINDINGS: The heart is normal size without pericardial effusion. Prominent strandy posterior basilar dependent atelectasis. Cirrhotic liver morphology. Gallbladder borderline hydropic with a number of tiny layering gallstones. Bile duct mildly dilated a t 9 mm. Adrenal glands, kidneys, and pancreas within normal limits. Spleen enlarged at 15.5 cm. Compatible with portal venous hypertension. No dilated small bowel or free air. Moderate abdominopelvic ascites. Mild circumferential wall thickening right side of the colon is nonspecific. This may reflect hypoalb uminemia secondary to the patient's liver disease. Redemonstrated umbilical hernia currently measuring 8.7 cm wide versus 7.8 cm, previous. In addition to the ascites fluid present previously, there is now a short segment of small bowel and mesentery wi thin the hernia sac. Bladder underdistended. Prostate gland borderline in size of 4.3 cm wide. Moderate-sized ascites cont aining left indirect inguinal hernia. Bones: No osseous destructive process. IMPRESSION: 1. Moderate residual ascites throughout the abdomen and pelvis. 2. Redemonstrated moderate to large umbilical hernia currently 8.7 cm 7.8 cm, previously. However, i n addition to ascites within the hernia sac, there is now a short segment of small bowel and mesenter y. Correlate for any focal pain. No obvious secondary small bowel obstruction at this time. Short int erval follow-up will be recommended if any progressive focal pain here. 3. Circumferential wall thickening ascending colon could represent colitis or could be reactive hypo albuminemia related to the patient's chronic liver disease/cirrhosis. 4. Cholelithiasis with numerous small gallstones. Gallbladder is borderline hydropic. This may be s econdary to fasting state. HIDA scan can be considered if there is any progressive right upper quadra nt pain or concern for early acute cholecystitis.
[2023-09-04] MEDS: HYDROmorphone 0.5 MG/0.5 ML SYRINGE IVP STA (09:49)
[2023-09-04 09:57] VITALS: BP 114/64; PULSE 93; RESP 18
== END 2023-09-04 10:42 | disposition home or self-care (01) ==
LOC: EC 05:35
DX: K42.9 Umbilical hernia without obstruction or gangrene (principal); R18.8 Other ascites; F17.200 Nicotine dependence, unspecified, uncomplicated; Z88.6 Allergy status to analgesic agent
CPT/HCPCS: 99284; 96374; 96376; 36415; 80053; 82140; 82150; 83690; 85025; 85610; 85730; 74176; J1170 ×2

== ENCOUNTER 2023-09-09 12:18 | Day surgery (SDC) | payer OTHER ==
[2023-09-09 13:09] LABS: Anisocytosis Slight; Basophils % (A) 1 %; Eosinophils # (A) 0.5 k/uL (0-0.7); Eosinophils % (A) 7 %; HCT 26.7 % (39.0-53.0); HGB 8.6 gm/dL (13.0-17.5); Hypochromasia Marked; Lymphocytes # (A) 1.3 k/uL (1.0-4.8); Lymphocytes % (A) 19 %; MCH 27.6 pg (25.0-35.0); MCV 86.4 fL (80.0-100.0); Monocytes # (A) 0.3 k/uL (0-1.0); Monocytes % (A) 4 %; Neutrophils # (A) 4.5 k/uL (1.3-7.7); Neutrophils % (A) 67 %; RDW 18.2 % (11.5-15.5); WBC 6.6 k/uL (3.8-10.6)
[2023-09-09 13:19] LABS: ALT 17 U/L (4-49); AST 36 U/L (17-59); African American GFR (CKD) >90 (>60 ml/min/1.73 sqM); Albumin 3.4 g/dL (3.5-5.0); Alkaline Phosphatase 83 U/L (38-126); Anion Gap 7 mmol/L; Blood Urea Nitrogen 20 mg/dL (9-20); Calcium 8.6 mg/dL (8.4-10.2); Carbon Dioxide 17 mmol/L (22-30); Chloride 109 mmol/L (98-107); Glucose 100 mg/dL (74-99); Non-African American GFR(CKD) 88 (>60 ml/min/1.73 sqM); Potassium 4.4 mmol/L (3.5-5.1); Sodium 133 mmol/L (137-145); Total Protein 6.4 g/dL (6.3-8.2)
[2023-09-09 13:22] LABS: Platelet Count 144 k/uL (150-450)
[2023-09-09] MEDS: ALBUMIN HUMAN 25% 50 ML in EMPTY BAG 1 BAG IVPB SCH ×2 (13:27→14:38)
[2023-09-09 13:29] LABS: INR 1.3 (<1.2); Prothrombin Time 13.6 sec (10.0-12.5)
[2023-09-09 13:36] VITALS: RESP 12; TEMP 98.2
[2023-09-09 15:22] VITALS: BP 112/68; PULSE 78
[2023-09-10 04:54] LABS: Appearance,BF Slightly Cloudy (Clear)
--- NOTE | 2023-09-10 13:12 | US ---
EXAMINATION TYPE: US paracentesis abd w/image DATE OF EXAM: 09/09/2023 2:29 PM CLINICAL INDICATION:Male, 43 years old with history of R18.8 OTHER ASCITES; COMPARISON: 09/02/2023 ATTENDING: Dr. Marcin Calixto PROCEDURE: Informed consent was obtained. The risks of the procedure were extensively explained incl uding risk of damage to surrounding bowel with perforation and need for additional procedures. Proced ure was performed in the ultrasound procedure suite. Ultrasound imaging of the abdomen demonstrate as citic fluid. An appropriate access site was localized to the right lower abdomen. Timeout was taken p er protocol. The skin was prepped and draped in the usual sterile fashion and then locally anesthetiz ed with 1% lidocaine. The peritoneal cavity was then accessed via a 5-Macedonian one-step needle/cathete r. Approximately 93603 cc of clear straw-colored fluid was obtained. Samples were sent to the lab fo r analysis. Postprocedural imaging of the abdomen demonstrate a minimal amount of abdominal fluid. Patient tolerated procedure well without immediate complication. Hemostasis at the procedural site w as obtained with a sterile bandage placed. The patient was monitored in the holding area following th e procedure and was subsequently discharged in stable condition. IMPRESSION: Ultrasound guided paracentesis, with approximately 27719 cc of clear straw-colored fluid drained. Pat hology results pending. No immediate complications were evident.
== END 2023-09-09 15:30 | disposition home or self-care (01) ==
LOC: RADPROMAIN 12:18
PROVIDERS: ATTEND Internal Medicine Gastroenterology
DX: R18.8 Other ascites (principal)
CPT/HCPCS: 80053; 89050; 85025; 85610; 49083; P9047

== ENCOUNTER 2023-09-16 12:21 | Day surgery (SDC) | payer OTHER ==
[2023-09-16] MEDS: ALBUMIN HUMAN 25% 50 ML in EMPTY BAG 1 BAG IVPB SCH ×2 (13:06→13:39)
[2023-09-16 13:20] LABS: Anisocytosis Slight; Basophils # (A) 0.1 k/uL (0-0.2); Basophils % (A) 1 %; Eosinophils # (A) 0.4 k/uL (0-0.7); Eosinophils % (A) 6 %; HCT 24.4 % (39.0-53.0); HGB 7.9 gm/dL (13.0-17.5); Hypochromasia Moderate; Lymphocytes # (A) 1.6 k/uL (1.0-4.8); Lymphocytes % (A) 26 %; MCH 27.4 pg (25.0-35.0); MCHC 32.5 g/dL (31.0-37.0); MCV 84.3 fL (80.0-100.0); Mean Platelet Volume 9.4; Monocytes # (A) 0.4 k/uL (0-1.0); Monocytes % (A) 6 %; Neutrophils # (A) 3.7 k/uL (1.3-7.7); Neutrophils % (A) 59 %; Platelet Count 119 k/uL (150-450); RDW 18.2 % (11.5-15.5); WBC 6.3 k/uL (3.8-10.6)
[2023-09-16 13:32] LABS: INR 1.3 (<1.2)
[2023-09-16 13:34] VITALS: RESP 12; TEMP 98.3
[2023-09-16 13:45] LABS: ALT 15 U/L (4-49); AST 31 U/L (17-59); African American GFR (CKD) >90 (>60 ml/min/1.73 sqM); Albumin 3.2 g/dL (3.5-5.0); Alkaline Phosphatase 78 U/L (38-126); Anion Gap 4 mmol/L; Blood Urea Nitrogen 23 mg/dL (9-20); Carbon Dioxide 21 mmol/L (22-30); Chloride 108 mmol/L (98-107); Glucose 96 mg/dL (74-99); Non-African American GFR(CKD) 84 (>60 ml/min/1.73 sqM); Potassium 3.9 mmol/L (3.5-5.1); Sodium 133 mmol/L (137-145); Total Protein 6.2 g/dL (6.3-8.2)
[2023-09-16 15:31] VITALS: BP 100/49; PULSE 70
[2023-09-17 04:14] LABS: Appearance,BF Cloudy (Clear)
--- NOTE | 2023-09-17 09:15 | US ---
EXAMINATION TYPE: US paracentesis abd w/image DATE OF EXAM: 09/16/2023 1:30 PM CLINICAL INDICATION:Male, 43 years old with history of R18.8 OTHER ASCITES; COMPARISON: 09/09/2023 ATTENDING: Dr. Marcin Calixto PROCEDURE: Informed consent was obtained. The risks of the procedure were extensively explained incl uding risk of damage to surrounding bowel with perforation and need for additional procedures. Proced ure was performed in the ultrasound procedure suite. Ultrasound imaging of the abdomen demonstrate as citic fluid. An appropriate access site was localized to the right lower abdomen. Timeout was taken p er protocol. The skin was prepped and draped in the usual sterile fashion and then locally anesthetiz ed with 1% lidocaine. The peritoneal cavity was then accessed via a 5-Ivorian one-step needle/cathete r. Approximately 9100 cc of clear straw-colored fluid was obtained. Samples were sent to the lab for analysis. Postprocedural imaging of the abdomen demonstrate a minimal amount of abdominal fluid. Patient tolerated procedure well without immediate complication. Hemostasis at the procedural site w as obtained with a sterile bandage placed. The patient was monitored in the holding area following th e procedure and was subsequently discharged in stable condition. IMPRESSION: Ultrasound guided paracentesis, with approximately 9100 cc of clear straw-colored fluid drained. Path ology results pending. No immediate complications were evident.
== END 2023-09-16 15:07 | disposition home or self-care (01) ==
LOC: RADPROMAIN 12:21
PROVIDERS: ATTEND Internal Medicine Gastroenterology
DX: R18.8 Other ascites (principal)
CPT/HCPCS: 80053; 89050; 85025; 85610; 36415; 49083; P9047

== ENCOUNTER → 2023-09-23 | Day surgery (SDC) | payer OTHER ==
[2023-09-23] MEDS: ALBUMIN HUMAN 25% 50 ML in EMPTY BAG 1 BAG IVPB SCH ×2 (13:01→13:34)
[2023-09-23 13:12] LABS: Anisocytosis Slight; Basophils % (A) 1 %; Eosinophils # (A) 0.4 k/uL (0-0.7); Eosinophils % (A) 6 %; HCT 27.7 % (39.0-53.0); HGB 8.7 gm/dL (13.0-17.5); Hypochromasia Moderate; Lymphocytes # (A) 1.1 k/uL (1.0-4.8); Lymphocytes % (A) 16 %; MCH 26.6 pg (25.0-35.0); MCHC 31.2 g/dL (31.0-37.0); MCV 85.1 fL (80.0-100.0); Mean Platelet Volume 9.3; Monocytes # (A) 0.3 k/uL (0-1.0); Monocytes % (A) 4 %; Neutrophils % (A) 73 %; Platelet Count 124 k/uL (150-450); RBC 3.26 m/uL (4.30-5.90); RDW 18.3 % (11.5-15.5); WBC 6.9 k/uL (3.8-10.6)
[2023-09-23 13:20] LABS: INR 1.3 (<1.2); Prothrombin Time 13.4 sec (10.0-12.5)
[2023-09-23 13:29] LABS: ALT 15 U/L (4-49); AST 30 U/L (17-59); African American GFR (CKD) >90 (>60 ml/min/1.73 sqM); Albumin 3.8 g/dL (3.5-5.0); Alkaline Phosphatase 80 U/L (38-126); Anion Gap 7 mmol/L; Blood Urea Nitrogen 23 mg/dL (9-20); Calcium 8.8 mg/dL (8.4-10.2); Carbon Dioxide 17 mmol/L (22-30); Chloride 110 mmol/L (98-107); Glucose 103 mg/dL (74-99); Non-African American GFR(CKD) 87 (>60 ml/min/1.73 sqM); Potassium 4.2 mmol/L (3.5-5.1); Sodium 134 mmol/L (137-145); Total Bilirubin 1.4 mg/dL (0.2-1.3); Total Protein 6.6 g/dL (6.3-8.2)
[2023-09-23 13:34] VITALS: TEMP 98
[2023-09-23 14:29] VITALS: BP 121/82; PULSE 75; RESP 16
--- NOTE | 2023-09-23 15:06 | US ---
Ultrasound-guided paracentesis. DATE OF EXAM: 09/23/2023 CLINICAL HISTORY: Ascites The procedure was discussed with the patient. The risks, complications, benefits, and alternatives we re discussed and any questions were answered. Informed consent was obtained. The patient was placed s upine on the ultrasound table and prepped and draped in the usual sterile fashion. All elements of maximal barrier technique were utilized. Under ultrasound guidance, access into the right lower quadrant was obtained, via the paracentesis catheter system and direct ultrasound guidanc e. Approximately 10 liters of straw-colored fluid was removed. The patient was stable throughout the pro cedure and remained stable upon discharge from Department of Radiology. IMPRESSION: Successful paracentesis under ultrasound guidance.
[2023-09-24 06:21] LABS: Appearance,BF Cloudy (Clear)
== END ==
LOC: RADPROMAIN 12:12
PROVIDERS: ATTEND Internal Medicine Gastroenterology
DX: R18.8 Other ascites (principal)
CPT/HCPCS: 88108; 88305; 88173; 80053; 89050; 85025; 85610; 36415; 49083; P9047

== ENCOUNTER 2023-09-30 12:29 | Day surgery (SDC) | payer OTHER ==
[2023-09-30 13:10] LABS: Anisocytosis Slight; HCT 27.6 % (39.0-53.0); HGB 8.7 gm/dL (13.0-17.5); Hypochromasia Moderate; MCH 26.6 pg (25.0-35.0); MCHC 31.4 g/dL (31.0-37.0); MCV 84.9 fL (80.0-100.0); Mean Platelet Volume 8.8; Platelet Count 151 k/uL (150-450); RBC 3.25 m/uL (4.30-5.90); RDW 18.4 % (11.5-15.5)
[2023-09-30 13:14] VITALS: RESP 16; TEMP 97.9
[2023-09-30 13:29] LABS: African American GFR (CKD) >90 (>60 ml/min/1.73 sqM); Albumin 3.5 g/dL (3.5-5.0); Blood Urea Nitrogen 19 mg/dL (9-20); Carbon Dioxide 16 mmol/L (22-30); Non-African American GFR(CKD) 83 (>60 ml/min/1.73 sqM); Total Bilirubin 1.3 mg/dL (0.2-1.3); Total Protein 6.2 g/dL (6.3-8.2)
[2023-09-30 13:31] LABS: ALT 12 U/L (4-49); AST 22 U/L (17-59); Alkaline Phosphatase 75 U/L (38-126); Anion Gap 7 mmol/L; Calcium 8.4 mg/dL (8.4-10.2); Chloride 110 mmol/L (98-107); Glucose 106 mg/dL (74-99); Potassium 3.7 mmol/L (3.5-5.1); Sodium 133 mmol/L (137-145)
[2023-09-30] MEDS: ALBUMIN HUMAN 25% 50 ML in EMPTY BAG 1 BAG IVPB SCH ×2 (13:32→14:40)
[2023-09-30 13:40] LABS: INR 1.5 (<1.2); Prothrombin Time 15.3 sec (10.0-12.5)
[2023-09-30 13:58] LABS: Eosinophils # (M) 1.75 k/uL (0-0.7); Lymphocytes # (M) 1.54 k/uL (1.0-4.8); Monocytes # (M) 0.49 k/uL (0-1.0); Neutrophils # (M) 3.22 k/uL (1.3-7.7); Neutrophils % (M) 46 %; Nucleated Red Blood Cells 0 /100 WBC (0-0); Total Cells Counted 100
[2023-09-30 13:59] LABS: Poikilocytosis (M) Present
[2023-09-30 15:14] VITALS: BP 110/53; PULSE 75
--- NOTE | 2023-09-30 19:31 | US ---
EXAMINATION TYPE: US paracentesis abd w/image DATE OF EXAM: 09/30/2023 2:10 PM CLINICAL INDICATION:Male, 43 years old with history of R18.8 OTHER ASCITES; COMPARISON: 09/23/2023 ATTENDING: Dr. Marcin Calixto PROCEDURE: Informed consent was obtained. The risks of the procedure were extensively explained incl uding risk of damage to surrounding bowel with perforation and need for additional procedures. Proced ure was performed in the ultrasound procedure suite. Ultrasound imaging of the abdomen demonstrate as citic fluid. An appropriate access site was localized to the right lower abdomen. Timeout was taken p er protocol. The skin was prepped and draped in the usual sterile fashion and then locally anesthetiz ed with 1% lidocaine. The peritoneal cavity was then accessed via a 5-Bengali one-step needle/cathete r. Approximately 8100 cc of clear straw-colored fluid was obtained. Samples were sent to the lab for analysis. Postprocedural imaging of the abdomen demonstrate a minimal amount of abdominal fluid. Patient tolerated procedure well without immediate complication. Hemostasis at the procedural site w as obtained with a sterile bandage placed. The patient was monitored in the holding area following th e procedure and was subsequently discharged in stable condition. IMPRESSION: Ultrasound guided paracentesis, with approximately 8100 cc of clear straw-colored fluid drained. Path ology results pending. No immediate complications were evident.
[2023-09-30 20:54] LABS: Appearance,BF Cloudy (Clear)
== END 2023-09-30 15:25 | disposition home or self-care (01) ==
LOC: RADPROMAIN 12:29
PROVIDERS: ATTEND Internal Medicine Gastroenterology
DX: R18.8 Other ascites (principal)
CPT/HCPCS: 80053; 89050; 85025; 85610; 36415; 49083; P9047

== ENCOUNTER 2023-10-07 12:24 | Day surgery (SDC) | payer OTHER ==
[2023-10-07] MEDS: ALBUMIN HUMAN 25% 50 ML in EMPTY BAG 1 BAG IVPB SCH (12:55)
[2023-10-07 12:58] LABS: Anisocytosis Slight; HCT 28.7 % (39.0-53.0); HGB 8.9 gm/dL (13.0-17.5); Hypochromasia Moderate; MCH 26.2 pg (25.0-35.0); MCHC 30.9 g/dL (31.0-37.0); MCV 84.8 fL (80.0-100.0); Mean Platelet Volume 8.6; Platelet Count 149 k/uL (150-450); RBC 3.38 m/uL (4.30-5.90); WBC 11.2 k/uL (3.8-10.6)
[2023-10-07 13:02] VITALS: RESP 16; TEMP 98
[2023-10-07 13:07] LABS: INR 1.4 (<1.2); Prothrombin Time 14.8 sec (10.0-12.5)
[2023-10-07 13:17] LABS: ALT 15 U/L (4-49); AST 29 U/L (17-59); African American GFR (CKD) 86 (>60 ml/min/1.73 sqM); Albumin 3.4 g/dL (3.5-5.0); Alkaline Phosphatase 85 U/L (38-126); Anion Gap 5 mmol/L; Blood Urea Nitrogen 28 mg/dL (9-20); Calcium 8.3 mg/dL (8.4-10.2); Carbon Dioxide 18 mmol/L (22-30); Chloride 108 mmol/L (98-107); Glucose 98 mg/dL (74-99); Non-African American GFR(CKD) 74 (>60 ml/min/1.73 sqM); Potassium 4.2 mmol/L (3.5-5.1); Sodium 131 mmol/L (137-145); Total Bilirubin 0.9 mg/dL (0.2-1.3); Total Protein 6.3 g/dL (6.3-8.2)
[2023-10-07 13:27] LABS: Eosinophils # (M) 3.92 k/uL (0-0.7); Lymphocytes # (M) 2.46 k/uL (1.0-4.8); Monocytes # (M) 0.22 k/uL (0-1.0); Neutrophils % (M) 42 %; Nucleated Red Blood Cells 0 /100 WBC (0-0); Total Cells Counted 200
[2023-10-07 13:28] LABS: Ovalocytes Present; Poikilocytosis (M) Present
[2023-10-07] MEDS: ALBUMIN HUMAN 25% 50 ML in EMPTY BAG 1 BAG IVPB ONE (14:18)
[2023-10-07 15:11] VITALS: BP 103/53; PULSE 76
--- NOTE | 2023-10-07 15:11 | US ---
Ultrasound-guided paracentesis. DATE OF EXAM: 10/07/2023 CLINICAL HISTORY: Ascites The procedure was discussed with the patient. The risks, complications, benefits, and alternatives we re discussed and any questions were answered. Informed consent was obtained. The patient was placed s upine on the ultrasound table and prepped and draped in the usual sterile fashion. All elements of maximal barrier technique were utilized. Under ultrasound guidance, access into the right lower quadrant was obtained, via the paracentesis catheter system and direct ultrasound guidanc e. Approximately 8.3 liters of straw-colored fluid was removed. The patient was stable throughout the pr ocedure and remained stable upon discharge from Department of Radiology. IMPRESSION: Successful paracentesis under ultrasound guidance.
[2023-10-08 04:34] LABS: Appearance,BF Cloudy (Clear)
== END 2023-10-07 15:12 | disposition home or self-care (01) ==
LOC: RADPROMAIN 12:24
PROVIDERS: ATTEND Physician Assistant Medical
DX: R18.8 Other ascites (principal)
CPT/HCPCS: 80053; 89050; 85025; 85610; 36415; 49083; P9047

== ENCOUNTER 2023-10-14 12:27 | Day surgery (SDC) | payer OTHER ==
[2023-10-14 13:19] LABS: Anisocytosis Slight; HCT 27.3 % (39.0-53.0); HGB 8.4 gm/dL (13.0-17.5); Hypochromasia Moderate; MCHC 30.8 g/dL (31.0-37.0); MCV 84.4 fL (80.0-100.0); Mean Platelet Volume 9.7; Platelet Count 111 k/uL (150-450); RBC 3.23 m/uL (4.30-5.90); RDW 18.5 % (11.5-15.5); WBC 7.8 k/uL (3.8-10.6)
[2023-10-14 13:22] LABS: ALT 16 U/L (4-49); AST 37 U/L (17-59); African American GFR (CKD) >90 (>60 ml/min/1.73 sqM); Albumin 3.6 g/dL (3.5-5.0); Alkaline Phosphatase 68 U/L (38-126); Anion Gap 7 mmol/L; Blood Urea Nitrogen 27 mg/dL (9-20); Calcium 8.4 mg/dL (8.4-10.2); Carbon Dioxide 16 mmol/L (22-30); Chloride 110 mmol/L (98-107); Glucose 88 mg/dL (74-99); Non-African American GFR(CKD) 90 (>60 ml/min/1.73 sqM); Potassium 3.9 mmol/L (3.5-5.1); Sodium 133 mmol/L (137-145); Total Bilirubin 1.5 mg/dL (0.2-1.3); Total Protein 6.6 g/dL (6.3-8.2)
[2023-10-14] MEDS: ALBUMIN HUMAN 25% 50 ML in EMPTY BAG 1 BAG IVPB SCH ×2 (13:30→14:42)
[2023-10-14 13:33] LABS: INR 1.4 (<1.2); Prothrombin Time 14.6 sec (10.0-12.5)
[2023-10-14 13:47] VITALS: RESP 18
[2023-10-14 13:53] LABS: Eosinophils # (M) 2.18 k/uL (0-0.7); Lymphocytes # (M) 1.01 k/uL (1.0-4.8); Monocytes # (M) 0.16 k/uL (0-1.0); Neutrophils # (M) 4.45 k/uL (1.3-7.7); Neutrophils % (M) 57 %; Nucleated Red Blood Cells 0 /100 WBC (0-0); Total Cells Counted 100
[2023-10-14 13:54] LABS: Ovalocytes Present
[2023-10-14 15:01] VITALS: BP 100/54; PULSE 78
[2023-10-15 12:32] LABS: Appearance,BF Cloudy (Clear)
--- NOTE | 2023-10-15 14:54 | US ---
EXAMINATION TYPE: US paracentesis abd w/image DATE OF EXAM: 10/14/2023 1:48 PM CLINICAL INDICATION:Male, 43 years old with history of R18.8 OTHER ASCITES; COMPARISON: 10/13/2023 ATTENDING: Dr. Marcin Calixto PROCEDURE: Informed consent was obtained. The risks of the procedure were extensively explained incl uding risk of damage to surrounding bowel with perforation and need for additional procedures. Proced ure was performed in the ultrasound procedure suite. Ultrasound imaging of the abdomen demonstrate as citic fluid. An appropriate access site was localized to the right lower abdomen. Timeout was taken p er protocol. The skin was prepped and draped in the usual sterile fashion and then locally anesthetiz ed with 1% lidocaine. The peritoneal cavity was then accessed via a 5-Guinean one-step needle/cathete r. Approximately 20440 cc of clear straw-colored fluid was obtained. Samples were sent to the lab fo r analysis. Postprocedural imaging of the abdomen demonstrate a minimal amount of abdominal fluid. Patient tolerated procedure well without immediate complication. Hemostasis at the procedural site w as obtained with a sterile bandage placed. The patient was monitored in the holding area following th e procedure and was subsequently discharged in stable condition. IMPRESSION: Ultrasound guided paracentesis, with approximately 27013 cc of clear straw-colored fluid drained. Pat hology results pending. No immediate complications were evident.
== END 2023-10-14 15:20 | disposition home or self-care (01) ==
LOC: RADPROMAIN 12:27
PROVIDERS: ATTEND Physician Assistant Medical
DX: R18.8 Other ascites (principal)
CPT/HCPCS: 80053; 89050; 85025; 85610; 36415; 49083; P9047

== ENCOUNTER 2023-10-16 06:42 | Inpatient (IN) | payer OTHER ==
[2023-10-16] MEDS: HYDROmorphone 1 MG/ML 1 ML SYRINGE IVP STA (07:00)
--- NOTE | 2023-10-16 07:06 | ED ---
Abdominal Pain HPI - General Chief Complaint: Abdominal Pain Stated Complaint: Abd pain Time Seen by Provider: 10/16/23 06:44 Source: patient, EMS, RN notes reviewed Mode of arrival: EMS Limitations: no limitations - History of Present Illness Initial Comments: 43-year-old male presents emergency room via EMS for complaint abdominal pain. Patient has chronic abdominal issues including liver disease, weekly paracentesis for ascites. Patient states he has abdominal hernia which usually reduces but states that he has had pain since last night unable to push it back in. Patient denies any dysuria no hematuria no change in bowel habits no fevers or chills - Related Data Home Medications Medication Instructions Recorded Confirmed HYDROcodone/APAP 5-325MG [[place] 1 - 2 tab PO Q4HR PRN 05/06/23 10/16/23 5-325] Midodrine HCl [ProAmatine] 10 mg PO TID 05/06/23 10/16/23 Pantoprazole [Protonix] 40 mg PO DAILY 05/06/23 10/16/23 Previous Rx's Medication Instructions Recorded Furosemide [Lasix] 40 mg PO DAILY #30 tablet 03/02/23 Spironolactone [Aldactone] 25 mg PO BID #60 tab 05/14/23 Allergies Allergy/AdvReac Type Severity Reaction Status Date / Time ibuprofen [From Motrin] Allergy Swelling Verified 10/16/23 09:00 Lips naproxen Allergy Swelling Verified 10/16/23 09:00 Lips Review of Systems ROS Statement: Those systems with pertinent positive or pertinent negative responses have been documented in the HPI. ROS Other: All systems not noted in ROS Statement are negative. Past Medical History Past Medical History: Hyperlipidemia, Hypertension, Liver Disease, Pneumonia Additional Past Medical History / Comment(s): Alcoholism, past withdrawals with tremors/diaphoresis, elevated LFTs, alcoholic liver cirrhosis follows with Liver specialist based out of [place], ascities with lg volume paracentesis, severe sepsis/aspiration pneumonia, occasional upper back pain. History of Any Multi-Drug Resistant Organisms: None Reported Past Surgical History: No Surgical Hx Reported Additional Past Surgical History / Comment(s): Pt states he has never had surgery, multi large volume paracentesis weekly Past Anesthesia/Blood Transfusion Reactions: Unable to Obtain Additional Past Anesthesia/Blood Transfusion Reaction / Comment(s): Pt states he has never had surgery. Past Psychological History: Depression, PTSD Smoking Status: Current every day smoker Past Alcohol Use History: None Reported, Abuse Past Drug Use History: None Reported - Past Family History Mother Family Medical History: Cancer Additional Family Medical History / Comment(s): Mother has colon cancer. Father History Unknown: Yes Additional Family Medical History / Comment(s): All pt knows about his father is that he is . General Exam Limitations: no limitations General appearance: alert, in no apparent distress Head exam: Present: atraumatic, normocephalic, normal inspection Respiratory exam: Present: normal lung sounds bilaterally. Absent: respiratory distress, wheezes, rales, rhonchi, stridor Cardiovascular Exam: Present: regular rate, normal rhythm, normal heart sounds. Absent: systolic murmur, diastolic murmur, rubs, gallop, clicks GI/Abdominal exam: Present: soft, tenderness, normal bowel sounds, hernia. Absent: distended, guarding, rebound, rigid Course Vital Signs 10/16/23 10/16/23 10/16/23 06:43 07:50 09:35 Temperature 97.8 F Pulse Rate 76 72 69 Respiratory 18 16 16 Rate Blood Pressure 115/69 107/56 104/60 O2 Sat by Pulse 100 100 100 Oximetry 10/16/23 10:30 Temperature Pulse Rate 67 Respiratory 16 Rate Blood Pressure 108/61 O2 Sat by Pulse 98 Oximetry Medical Decision Making - Medical Decision Making Was pt. sent in by a medical professional or institution (TASHA Camejo, CLOTH CUTTING MACHINE OPERATOR, urgent care, hospital, or longterm...) When possible be specific @ -No Did you speak to anyone other than the patient for history (EMS, parent, family, police, friend...)? What history was obtained from this source @ -No Did you review nursing and triage notes (agree or disagree)? Why? @ -I reviewed and agree with nursing and triage notes Were old charts reviewed (outside hosp., previous admission, EMS record, old EKG, old radiological studies, urgent care reports/EKG's, longterm records)? Report findings @ -No old charts were reviewed Differential Diagnosis (chest pain, altered mental status, abdominal pain women, abdominal pain men, vaginal bleeding, weakness, fever, dyspnea, syncope, headache, dizziness, GI bleed, back pain, seizure, CVA, palpatations, mental health, musculoskeletal)? @ -Differential Abdominal Pain Men: Appendicitis, cholecystitis, diverticulosis, ischemic bowel, pancreatitis, hepatitis, UTI, gastroenteritis, AAA, incarcerated hernia, bowel obstruction, constipation, inflammatory bowel, hepatitis, peptic ulcer disease, splenic infarction, perforated viscus, testicular torsion, this is not meant to be an all-inclusive list EKG interpreted by me (3pts min.). @ -None X-rays interpreted by me (1pt min.). @ -None done CT interpreted by me (1pt min.). @ -None done U/S interpreted by me (1pt. min.). @ -None done What testing was considered but not performed or refused? (CT, X-rays, U/S, labs)? Why? @ -Consider CT abdomen pelvis so patient had recent CT showing known hernia What meds were considered but not given or refused? Why? @ -None Did you discuss the management of the patient with other professionals (professionals i.e. , PA, CLOTH CUTTING MACHINE OPERATOR, lab, RT, psych nurse, manager social, crimper assembler, teacher, protection officer, case hardener)? Give summary @Dr. Hair regarding incarcerated hernia and unable to reduce patient was taken to the OR. Was smoking cessation discussed for >3mins.? @ -No Was critical care preformed (if so, how long)? @ -No Were there social determinants of health that impacted care today? How? (Homelessness, low income, unemployed, alcoholism, drug addiction, tra nsportation, low edu. Level, literacy, decrease access to med. care, care home, rehab)? @ -No Was there de-escalation of care discussed even if they declined (Discuss DNR or withdrawal of care, Hospice)? DNR status @ -No What co-morbidities impacted this encounter? (DM, HTN, Smoking, COPD, CAD, Cancer, CVA, ARF, Chemo, Hep., AIDS, mental health diagnosis, sleep apnea, morbid obesity)? @ -None Was patient admitted / discharged? Hospital course, mention meds given and route, prescriptions, significant lab abnormalities, going to OR and other pertinent info. @ -Admitted patient is found to have incarcerated hernia unable to reduce on multiple attempts after analgesics, ice pack and Trendelenburg. Case discussed with Dr. Hair accepts admission with consult to medicine Undiagnosed new problem with uncertain prognosis? @ -No Drug Therapy requiring intensive monitoring for toxicity (Heparin, Nitro, Insulin, Cardizem)? @ -No Were any procedures done? @ -No Diagnosis/symptom? @ -Incarcerated umbilical hernia Acute, or Chronic, or Acute on Chronic? @ -Acute Uncomplicated (without systemic symptoms) or Complicated (systemic symptoms)? @ -Uncomplicated Side effects of treatment? @ -No Exacerbation, Progression, or Severe Exacerbation? @ -No Poses a threat to life or bodily function? How? (Chest pain, [place], HI, pneumonia, PE, COPD, DKA, ARF, appy, cholecystitis, CVA, Diverticulitis, Homicidal, Suicidal, threat to staff... and all critical care pts) @ -Yes surgical risk - Lab Data Result diagrams: 10/16/23 06:57 10/16/23 06:57 Lab Results 10/16/23 10/16/23 10/16/23 Range/Units 06:57 06:57 06:57 WBC 6.1 (3.8-10.6) k/uL RBC 3.06 L (4.30-5.90) m/uL Hgb 7.9 L (13.0-17.5) gm/dL Hct 26.1 L (39.0-53.0) % MCV 85.5 (80.0-100.0) fL MCH 25.7 (25.0-35.0) pg MCHC 30.1 L (31.0-37.0) g/dL RDW 18.6 H (11.5-15.5) % Plt Count 98 L (150-450) k/uL MPV 9.4 Neutrophils % 80 % Lymphocytes % 13 % Monocytes % 5 % Eosinophils % 1 % Basophils % 1 % Neutrophils # 4.8 (1.3-7.7) k/uL Lymphocytes # 0.8 L (1.0-4.8) k/uL Monocytes # 0.3 (0-1.0) k/uL Eosinophils # 0.1 (0-0.7) k/uL Basophils # 0.0 (0-0.2) k/uL Manual Slide Review Performed Hypochromasia Moderate Poikilocytosis (manual Present Anisocytosis Slight PT (10.0-12.5) sec INR (<1.2) APTT (22.0-30.0) sec Sodium 133 L (137-145) mmol/L Potassium 4.5 (3.5-5.1) mmol/L Chloride 110 H (98-107) mmol/L Carbon Dioxide 13 L (22-30) mmol/L Anion Gap 10 mmol/L BUN 35 H (9-20) mg/dL Creatinine 1.65 H (0.66-1.25) mg/dL Est GFR (CKD-EPI)AfAm 58 (>60 ml/min/1.73 sqM) Est GFR (CKD-EPI)NonAf 51 (>60 ml/min/1.73 sqM) Glucose 119 H (74-99) mg/dL Plasma Lactic Acid Willam 1.8 (0.7-2.0) mmol/L Calcium 8.8 (8.4-10.2) mg/dL Total Bilirubin 1.3 (0.2-1.3) mg/dL AST 29 (17-59) U/L ALT 15 (4-49) U/L Alkaline Phosphatase 63 (38-126) U/L Total Protein 6.4 (6.3-8.2) g/dL Albumin 3.8 (3.5-5.0) g/dL 10/16/23 Range/Units 08:31 WBC (3.8-10.6) k/uL RBC (4.30-5.90) m/uL Hgb (13.0-17.5) gm/dL Hct (39.0-53.0) % MCV (80.0-100.0) fL MCH (25.0-35.0) pg MCHC (31.0-37.0) g/dL RDW (11.5-15.5) % Plt Count (150-450) k/uL MPV Neutrophils % % Lymphocytes % % Monocytes % % Eosinophils % % Basophils % % Neutrophils # (1.3-7.7) k/uL Lymphocytes # (1.0-4.8) k/uL Monocytes # (0-1.0) k/uL Eosinophils # (0-0.7) k/uL Basophils # (0-0.2) k/uL Manual Slide Review Hypochromasia Poikilocytosis (manual Anisocytosis PT 14.7 H (10.0-12.5) sec INR 1.4 H (<1.2) APTT 29.4 (22.0-30.0) sec Sodium (137-145) mmol/L Potassium (3.5-5.1) mmol/L Chloride (98-107) mmol/L Carbon Dioxide (22-30) mmol/L Anion Gap mmol/L BUN (9-20) mg/dL Creatinine (0.66-1.25) mg/dL Est GFR (CKD-EPI)AfAm (>60 ml/min/1.73 sqM) Est GFR (CKD-EPI)NonAf (>60 ml/min/1.73 sqM) Glucose (74-99) mg/dL Plasma Lactic Acid Willam (0.7-2.0) mmol/L Calcium (8.4-10.2) mg/dL Total Bilirubin (0.2-1.3) mg/dL AST (17-59) U/L ALT (4-49) U/L Alkaline Phosphatase (38-126) U/L Total Protein (6.3-8.2) g/dL Albumin (3.5-5.0) g/dL Disposition Clinical Impression: Incarcerated umbilical hernia Disposition: ADMITTED IP TO THIS [facility] Condition: Fair Time of Disposition: 08:42
[2023-10-16 07:10] LABS: Anisocytosis Slight; Basophils % (A) 1 %; Eosinophils # (A) 0.1 k/uL (0-0.7); Eosinophils % (A) 1 %; HCT 26.1 % (39.0-53.0); HGB 7.9 gm/dL (13.0-17.5); Hypochromasia Moderate; Lymphocytes # (A) 0.8 k/uL (1.0-4.8); Lymphocytes % (A) 13 %; MCH 25.7 pg (25.0-35.0); MCHC 30.1 g/dL (31.0-37.0); MCV 85.5 fL (80.0-100.0); Mean Platelet Volume 9.4; Monocytes # (A) 0.3 k/uL (0-1.0); Monocytes % (A) 5 %; Neutrophils # (A) 4.8 k/uL (1.3-7.7); Neutrophils % (A) 80 %; RBC 3.06 m/uL (4.30-5.90); RDW 18.6 % (11.5-15.5); WBC 6.1 k/uL (3.8-10.6)
[2023-10-16 07:30] LABS: ALT 15 U/L (4-49); AST 29 U/L (17-59); African American GFR (CKD) 58 (>60 ml/min/1.73 sqM); Albumin 3.8 g/dL (3.5-5.0); Alkaline Phosphatase 63 U/L (38-126); Anion Gap 10 mmol/L; Blood Urea Nitrogen 35 mg/dL (9-20); Calcium 8.8 mg/dL (8.4-10.2); Carbon Dioxide 13 mmol/L (22-30); Chloride 110 mmol/L (98-107); Glucose 119 mg/dL (74-99); Non-African American GFR(CKD) 51 (>60 ml/min/1.73 sqM); Potassium 4.5 mmol/L (3.5-5.1); Sodium 133 mmol/L (137-145); Total Bilirubin 1.3 mg/dL (0.2-1.3); Total Protein 6.4 g/dL (6.3-8.2)
[2023-10-16] MEDS: HYDROmorphone 0.5 MG/0.5 ML SYRINGE IVP STA (07:42)
[2023-10-16 07:52] LABS: Poikilocytosis (M) Present
[2023-10-16 07:53] LABS: Platelet Count 98 k/uL (150-450)
[2023-10-16] MEDS ORDERED: NALOXONE 0.4 MG/ML 1 ML VIAL IV PRN (08:42)
[2023-10-16 09:11] LABS: INR 1.4 (<1.2); Partial Thromboplastin Time 29.4 sec (22.0-30.0); Prothrombin Time 14.7 sec (10.0-12.5)
[2023-10-16] MEDS: MIDODRINE 5 MG TAB PO SCH (09:43)
--- NOTE | 2023-10-16 10:18 | P.CONS ---
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 He presented to the emergency department with a chief complaint of intractable abdominal pain and reports umbilical hernia is now nonreducible. Upon arrival to our facility, patient underwent evaluation in the emergency department. Vital signs upon arrival show blood pressure 115/69, heart rate 76, respiratory rate 18, temp 97.8 F, and SpO2 100% on room air. EKG completed showing normal sinus rhythm at 63 bpm with no noted T wave or ST abnormalities showing no signs of acute ischemia upon personal review and interpretation. Labs were completed and reviewed. CBC showing bicytopenia with hemoglobin of 7.9 and platelet count of 98. Coagulation profile showing elevated PT of 14.7 and INR 1.4. BMP showing hyponatremia with sodium of 133, hyperchloremia with chloride of 110, hypocarbia with bicarb of 13, and anion gap of 10 with renal function consistent with stage IIIb CKD showing BUN of 35, creatinine 1.65, GFR 51. Blood glucose was 119. Lactic acid was 1.8. Liver profile was unremarkable. Patient was evaluated by general surgeon, he is being admitted to general surgery team with plans to be taken to the OR for open surgical repair of incarcerated umbilical hernia. We were consulted for preoperative medical clearance and postoperative medical management. Patient seen and fully evaluated at bedside. He reports moderate abdominal pain surrounding his hernia. Patient with large umbilical hernia present. Patient denies having any fevers, chills, diaphoresis, chest pain, palpitations, shortness of breath, cough or congestion, nausea, vomiting, difficulties with or changes in his urinary or bowel function or any other complaints at this time. Review of systems: Pertinent positives and negatives as discussed in HPI, a complete review of systems was performed and all other systems are negative. Physical exam: Vital signs reviewed and stable. General: Nontoxic, no distress and appears stated age. Chronically ill- appearing with sarcopenia Derm: Skin warm and dry, jaundiced Head: Atraumatic, normocephalic and symmetric. Eyes: EOMs intact, no lid lag Mouth: no lip lesions, mucus membranes moist Cardiovascular: regular rate and rhythm with normal S1S2, soft systolic murmur, positive posterior tibial pulses bilaterally, and cap refill < 2 seconds. Lungs: Respirations even, regular, and unlabored on room air. Lungs CTA bilaterally, no rhonchi, no rales, no wheezing, and no accessory muscle usage. Abdominal: Large incarcerated umbilical hernia, nonreducible. Tenderness reported upon palpation. Ext: ROM intact. No gross muscle atrophy, no edema, no contractures Neuro: Speech clear, face symmetrical and CN II-XII grossly intact with no noted focal neuro deficits Psych: Alert and oriented to person, place, time, and situation. Appropriate and pleasant affect. Assessment and Plan of Care: Preoperative Medical Clearance: -MELD score is 19 points at this time. -NSQIP surgical risk assessment completed showing patient at an above average r isk for serious complications at 5.5% with average risk being 3.4%, above average risk for cardiac complications at 0.2% with average risk being 0.1%, and an above average for at 0.5% with average risk being 0.1%. -Patient is at a very high risk for any surgical intervention secondary to his a dvanced cirrhosis. However due to urgent need for surgical repair of his incarcerated umbilical hernia and increased risk of morbidity/mortality in delaying surgery, there are no absolute contraindications from a medical standpoint at this time. Pt is hemodynamically stable and medically optimized to proceed with planned open surgical repair of his incarcerated umbilical hernia. -Preoperative EKG was completed and reviewed showing normal sinus rhythm at 63 bpm with no noted T wave or ST abnormalities showing no signs of acute ischemia upon personal review and interpretation. Advanced alcoholic liver cirrhosis Hyponatremia, secondary to liver cirrhosis with ascites Non-anion gap metabolic acidosis Bicytopenia, secondary to advanced liver cirrhosis Elevated INR, secondary to advanced liver cirrhosis -Patient to continue Lasix 40 mg daily, Aldactone 25 mg twice daily, and midodrine 10 mg 3 times daily. -We will continue to monitor liver function, coagulation profile, hemoglobin, platelet count, and sodium levels closely with repeat morning labs and place additional orders if indicated based upon these findings. Chronic kidney disease stage IIIb -Renal function currently stable and at baseline with BUN of 35, creatinine 1.65, and GFR 51. Nicotine dependence -Recommend smoking cessation and order placed for nicotine patch 21 mg daily. Data and imaging reviewed: As stated above in HPI Thank you for allowing us to participate in the care of this pleasant patient. Do not hesitate to contact us with questions. Someone can be reached from the [facility] hospitalist group all hours of the day at [phone] or via [email or web address]. Patient was seen independently by Nurse Practitioner. This document was prepared using Links[employer] dictation software. Please allow for errors in operations intelligence superintendent while rare they do occur. .I reviewed the documentation as provided by the TESSY above, who is the original author of this note. I agree with the documented assessment and plan, with the following changes: none Past Medical History Past Medical History: Hyperlipidemia, Hypertension, Liver Disease, Pneumonia Additional Past Medical History / Comment(s): Alcoholism, past withdrawals with tremors/diaphoresis, elevated LFTs, alcoholic liver cirrhosis follows with Liver specialist based out of [place], ascities with lg volume paracentesis, severe sepsis/aspiration pneumonia, occasional upper back pain. History of Any Multi-Drug Resistant Organisms: None Reported Past Surgical History: No Surgical Hx Reported Additional Past Surgical History / Comment(s): Pt states he has never had surgery, multi large volume paracentesis weekly Past Anesthesia/Blood Transfusion Reactions: Unable to Obtain Additional Past Anesthesia/Blood Transfusion Reaction / Comm: Pt states he has never had surgery. Past Psychological History: Depression, PTSD Smoking Status: Current every day smoker Past Alcohol Use History: None Reported, Abuse Past Drug Use History: None Reported - Past Family History Mother Family Medical History: Cancer Additional Family Medical History / Comment(s): Mother has colon cancer. Father History Unknown: Yes Additional Family Medical History / Comment(s): All pt knows about his father is that he is . Medications and Allergies Home Medications Medication Instructions Recorded Confirmed Type Furosemide [Lasix] 40 mg PO DAILY #30 tablet 03/02/23 10/16/23 Rx HYDROcodone/APAP 5-325MG [[place] 1 - 2 tab PO Q4HR PRN 05/06/23 10/16/23 History 5-325] Midodrine HCl [ProAmatine] 10 mg PO TID 05/06/23 10/16/23 History Pantoprazole [Protonix] 40 mg PO DAILY 05/06/23 10/16/23 History Spironolactone [Aldactone] 25 mg PO BID #60 tab 05/14/23 10/16/23 Rx Allergies Allergy/AdvReac Type Severity Reaction Status Date / Time ibuprofen [From Motrin] Allergy Swelling Verified 10/16/23 14:20 Lips naproxen Allergy Swelling Verified 10/16/23 14:20 Lips Physical Exam Vitals: Vital Signs Temp Pulse Resp BP Pulse Ox 10/16/23 09:35 69 16 104/60 100 10/16/23 07:50 72 16 107/56 100 10/16/23 06:43 97.8 F 76 18 115/69 100 Intake and Output 10/15/23 10/16/23 10/16/23 22:59 06:59 14:59 Other: Weight 81.647 kg Results CBC & Chem 7: 10/21/23 05:19 10/21/23 05:19 Labs: Abnormal Lab Results - Last 24 Hours (Table) 10/16/23 10/16/23 10/16/23 Range/Units 06:57 06:57 08:31 RBC 3.06 L (4.30-5.90) m/uL Hgb 7.9 L (13.0-17.5) gm/dL Hct 26.1 L (39.0-53.0) % MCHC 30.1 L (31.0-37.0) g/dL RDW 18.6 H (11.5-15.5) % Plt Count 98 L (150-450) k/uL Lymphocytes # 0.8 L (1.0-4.8) k/uL PT 14.7 H (10.0-12.5) sec INR 1.4 H (<1.2) Sodium 133 L (137-145) mmol/L Chloride 110 H (98-107) mmol/L Carbon Dioxide 13 L (22-30) mmol/L BUN 35 H (9-20) mg/dL Creatinine 1.65 H (0.66-1.25) mg/dL Glucose 119 H (74-99) mg/dL
[2023-10-16] MEDS: NICOTINE 21MG/24HR PATCH TRANSDERM SCH (11:02)
[2023-10-16] MEDS: HYDROmorphone 1 MG/ML 1 ML SYRINGE IVP PRN (13:23)
[2023-10-16] MEDS: IV FLUID CONTINUATION 1,000 ML IV ONE (14:07)
[2023-10-16] MEDS: DEXAMETHASONE SOD PHOSPHATE 4 MG/ML 1 ML VIAL IVP STA (14:28)
[2023-10-16] MEDS: MIDAZOLAM 2 MG/2 ML VIAL IVP ONE (14:38)
--- NOTE | 2023-10-16 15:16 | P.ANPRN ---
Procedure Note - Anesthesia - Nerve Block Performed Bilateral Transversus Abdominis Single Time Out Performed: Yes Date of Procedure: 10/16/23 Procedure Start Time: 14:30 Procedure Stop Time: 14:50 Location of Patient: PreOp Indication: Acute Post-Operative Pain, Requested by Surgeon Sedation Type: Sedate with meaningful contact maintained Preparation: Sterile Prep, Sterile Dressing Position: Supine Catheter: None Needle Types: Facet Needle Gauge: 20 Ultrasound used to visualize needle placement: Yes Ultrasound used to observe medication spread: Yes Injectate: Other (see comment) (Ropivacaine 0.25% + 2 mg decadron 30 ml per side) Blood Aspirated: No Pain Paresthesia on Injection Noted: No Resistance on Injection: Normal Image Stored and Saved: Yes Events: Uneventful and Well Tolerated
--- NOTE | 2023-10-16 15:26 | P.GSHP ---
History of Present Illness H&P Date: 10/16/23 Chief Complaint: Incarcerated umbilical hernia 43-year-old male with history of known cirrhosis and frequent paracentesis presents with complaints of pain at the umbilical region. Patient apparently had large volume of ascites removed last 1 to 2 days. Despite that the pat ient's umbilical region has remained quite tense and painful. Attempts at reduction of the hernia were unsuccessful. Previously the hernia contained fluid and some fat. No nausea or vomiting. No fevers or chills. White blood cell count is normal. Hemoglobin 7.9 but relatively stable. BUN and creatinine are elevated but again appear relatively stable. INR 1.4. No prior abdominal surgeries. - Review of Systems Comment: The patient denies any acute changes in vision or hearing, no dysphagia or odynophagia, no chest pain or shortness of breath, no dysuria or hematuria, no headache, no runny nose, no rectal bleeding or melena, no unexplained weight loss Past Medical History Past Medical History: Hyperlipidemia, Hypertension, Liver Disease, Pneumonia Additional Past Medical History / Comment(s): Alcoholism, past withdrawals with tremors/diaphoresis, elevated LFTs, alcoholic liver cirrhosis follows with Liver specialist based out of [place], ascities with lg volume paracentesis, severe sepsis/aspiration pneumonia, occasional upper back pain. History of Any Multi-Drug Resistant Organisms: None Reported Past Surgical History: No Surgical Hx Reported Additional Past Surgical History / Comment(s): Pt states he has never had surgery, multi large volume paracentesis weekly Past Anesthesia/Blood Transfusion Reactions: Unable to Obtain Additional Past Anesthesia/Blood Transfusion Reaction / Comment(s): Pt states he has never had surgery. Past Psychological History: Depression, PTSD Smoking Status: Current every day smoker Past Alcohol Use History: None Reported, Abuse Past Drug Use History: None Reported - Past Family History Mother Family Medical History: Cancer Additional Family Medical History / Comment(s): Mother has colon cancer. Father History Unknown: Yes Additional Family Medical History / Comment(s): All pt knows about his father is that he is . Medications and Allergies Home Medications Medication Instructions Recorded Confirmed Type Furosemide [Lasix] 40 mg PO DAILY #30 tablet 03/02/23 10/16/23 Rx HYDROcodone/APAP 5-325MG [[place] 1 - 2 tab PO Q4HR PRN 05/06/23 10/16/23 History 5-325] Midodrine HCl [ProAmatine] 10 mg PO TID 05/06/23 10/16/23 History Pantoprazole [Protonix] 40 mg PO DAILY 05/06/23 10/16/23 History Spironolactone [Aldactone] 25 mg PO BID #60 tab 05/14/23 10/16/23 Rx Allergies Allergy/AdvReac Type Severity Reaction Status Date / Time ibuprofen [From Motrin] Allergy Swelling Verified 10/16/23 14:20 Lips naproxen Allergy Swelling Verified 10/16/23 14:20 Lips Surgical - Exam Vital Signs Temp Pulse Resp BP Pulse Ox 97.8 F 76 18 115/69 100 10/16/23 06:43 10/16/23 06:43 10/16/23 06:43 10/16/23 06:43 10/16/23 06:43 Physical exam: General: Well-developed, well-nourished HEENT: Normocephalic, sclerae nonicteric Abdomen: Large incarcerated local hernia, skin somewhat thin overlying the hernia, nonreducible, no erythema or ischemic changes noted, hernia sac approximately 10 x 8 cm, hernia defect on most recent CAT scan approximately 1 to 2 cm, nondistended Extremities: No edema Neuro: Alert and oriented Results - Labs 10/16/23 06:57 10/16/23 06:57 Abnormal Lab Results - Last 24 Hours (Table) 10/16/23 10/16/23 10/16/23 Range/Units 06:57 06:57 08:31 RBC 3.06 L (4.30-5.90) m/uL Hgb 7.9 L (13.0-17.5) gm/dL Hct 26.1 L (39.0-53.0) % MCHC 30.1 L (31.0-37.0) g/dL RDW 18.6 H (11.5-15.5) % Plt Count 98 L (150-450) k/uL Lymphocytes # 0.8 L (1.0-4.8) k/uL PT 14.7 H (10.0-12.5) sec INR 1.4 H (<1.2) Sodium 133 L (137-145) mmol/L Chloride 110 H (98-107) mmol/L Carbon Dioxide 13 L (22-30) mmol/L BUN 35 H (9-20) mg/dL Creatinine 1.65 H (0.66-1.25) mg/dL Glucose 119 H (74-99) mg/dL Diabetes panel 10/16/23 Range/Units 06:57 Sodium 133 L (137-145) mmol/L Potassium 4.5 (3.5-5.1) mmol/L Chloride 110 H (98-107) mmol/L Carbon Dioxide 13 L (22-30) mmol/L BUN 35 H (9-20) mg/dL Creatinine 1.65 H (0.66-1.25) mg/dL Glucose 119 H (74-99) mg/dL Calcium 8.8 (8.4-10.2) mg/dL AST 29 (17-59) U/L ALT 15 (4-49) U/L Alkaline Phosphatase 63 (38-126) U/L Total Protein 6.4 (6.3-8.2) g/dL Albumin 3.8 (3.5-5.0) g/dL Calcium panel 10/16/23 Range/Units 06:57 Calcium 8.8 (8.4-10.2) mg/dL Albumin 3.8 (3.5-5.0) g/dL Pituitary panel 10/16/23 Range/Units 06:57 Sodium 133 L (137-145) mmol/L Potassium 4.5 (3.5-5.1) mmol/L Chloride 110 H (98-107) mmol/L Carbon Dioxide 13 L (22-30) mmol/L BUN 35 H (9-20) mg/dL Creatinine 1.65 H (0.66-1.25) mg/dL Glucose 119 H (74-99) mg/dL Calcium 8.8 (8.4-10.2) mg/dL Adrenal panel 10/16/23 Range/Units 06:57 Sodium 133 L (137-145) mmol/L Potassium 4.5 (3.5-5.1) mmol/L Chloride 110 H (98-107) mmol/L Carbon Dioxide 13 L (22-30) mmol/L BUN 35 H (9-20) mg/dL Creatinine 1.65 H (0.66-1.25) mg/dL Glucose 119 H (74-99) mg/dL Calcium 8.8 (8.4-10.2) mg/dL Total Bilirubin 1.3 (0.2-1.3) mg/dL AST 29 (17-59) U/L ALT 15 (4-49) U/L Alkaline Phosphatase 63 (38-126) U/L Total Protein 6.4 (6.3-8.2) g/dL Albumin 3.8 (3.5-5.0) g/dL Assessment and Plan (1) Incarcerated umbilical hernia Narrative/Plan: 43-year-old male with incarcerated umbilical hernia. This is symptomatic and unfortunately does appear to require urgent repair. Patient high risk globally because of his underlying cirrhosis and ascites. Risks of bleeding, infection, progressive hepatic failure, ascitic fluid leak, recurrence, bladder and bowel injury, numbness, nerve injury were discussed with the patient. The patient understands and wishes to proceed. Current Visit: Yes Status: Acute Code(s): K42.0 - UMBILICAL HERNIA WITH OBSTRUCTION, WITHOUT GANGRENE SNOMED Code(s): 548039785
[2023-10-16] MEDS ORDERED: ePHEDrine 50 MG/ML 1 ML VIAL ONE (15:29)
[2023-10-16] MEDS ORDERED: SUCCINYLCHOLINE CHLORIDE 200 MG/10 ML VIAL IV ONE (15:29)
[2023-10-16] MEDS ORDERED: LIDOCAINE 1% INJ 10MG/ML (20 ML MDV) ONE (15:29)
[2023-10-16] MEDS ORDERED: DEXAMETHASONE SOD PHOSPHATE 4 MG/ML 1 ML VIAL ONE (15:29)
[2023-10-16] MEDS ORDERED: SODIUM CHLORIDE 0.9% (PF) 10 ML VIAL ONE (15:29)
[2023-10-16] MEDS ORDERED: PROPOFOL 10 MG/ML 20 ML VIAL IV ONE (15:29)
[2023-10-16] MEDS ORDERED: ROPIVACAINE 5 MG/ML 30 ML VIAL ONE (15:29)
[2023-10-16] MEDS ORDERED: fentaNYL (PF) 50 MCG/ML 2 ML AMP ONE (15:29)
[2023-10-16] MEDS: SODIUM CHLORIDE 0.9% 50 ML with ceFAZolin 2,000 MG IV ONE (15:58)
--- NOTE | 2023-10-16 17:02 | P.OP ---
Date of Procedure: 10/16/23 Procedure(s) Performed: PREOPERATIVE DIAGNOSIS: Incarcerated umbilical hernia POSTOPERATIVE DIAGNOSIS: Same PROCEDURE: Open repair incarcerated umbilical hernia, umbillectomy SURGEON: Dr. Hair ANESTHESIA: General OPERATIVE PROCEDURE DETAILS: Patient placed on the operating table in the supine position. Preoperatively the patient had a nerve block performed by anesthesia. Abdomen was then prepped and draped sterilely after general anesthesia achieved. Elliptical incision was made encompassing the large incarcerated umbilical hernia site. The patient's skin was indurated but without erythema or ischemic changes. The subcutaneous tissues were divided using electrocautery. Entrance into the hernia sac took place. The contents were evacuated. The patient had a loop of small bowel that was mildly ischemic appearing however after opening the fascia slightly superiorly the bowel took on a pink color. Peristalsis was noted. No irreducible ischemia was evident. The bowel was reduced. The patient had residual ascites. It had a somewhat cloudy appearance. 4 L of ascites was evacuated. The patient had the primary hernia present at the umbilical region with a fascial defect measuring 3.5 x 2 cm. A smaller hernia was seen in the supraumbilical location with a 3 mm fascial defect. The hernia sac and umbilicus were excised. Attempts at closing the peritoneum itself were unsuccessful given the friability of the peritoneum. The smaller defect was closed using a [id number] 0 Ethibond stitch. The symptomatic hernia was closed in a overlapping vest over pants fashion with interrupted horizontal mattress 0 Ethibond sutures. The folding edge was sutured using a running 0 Ethibond stitch as well. No further hernias were noted. Area was irrigated with saline. Peritoneum was also irrigated. Drain was placed anterior to the fascial closure exiting left lower quadrant and s utured to the skin using a 3-0 silk stitch. Subcutaneous tissues closed using 2-0 Vicryl sutures. Skin closed with bianca. Prevena dressing applied. HERNIA CHARACTERISTICS: Length: 3.5 cm Width: 2 cm Type: Incarcerated umbilical TYPE OF MESH USED: None PREOPERATIVE DISCUSSION ON SMOKING CESSASTION: Yes PREOPERATIVE DISCUSSION ON MORBID OBESITY: Yes PREOPERATIVE DISCUSSION ON APPROPRIATE USE OF NARCOTIC USE: Yes PREOPERATIVE EDUCATION: Multi Modal, Smoking Cessation and Weight Loss with BMI over 35. DISPOSITION: Stable to recovery room
[2023-10-16] MEDS: HYDROmorphone 0.5 MG/0.5 ML SYRINGE IVP PRN (18:31)
[2023-10-16] MEDS: SPIRONOLACTONE 25 MG TAB PO SCH (21:01)
[2023-10-17 07:37] LABS: Anisocytosis Slight; Basophils % (A) 0 %; Eosinophils % (A) 0 %; HCT 24.9 % (39.0-53.0); HGB 7.5 gm/dL (13.0-17.5); Hypochromasia Marked; Lymphocytes # (A) 0.6 k/uL (1.0-4.8); Lymphocytes % (A) 7 %; MCH 26.8 pg (25.0-35.0); MCHC 30.1 g/dL (31.0-37.0); MCV 89.1 fL (80.0-100.0); Mean Platelet Volume 9.7; Monocytes # (A) 0.3 k/uL (0-1.0); Monocytes % (A) 4 %; Neutrophils # (A) 7.7 k/uL (1.3-7.7); Neutrophils % (A) 89 %; RDW 18.5 % (11.5-15.5); WBC 8.7 k/uL (3.8-10.6)
[2023-10-17 07:41] LABS: Platelet Count 81 k/uL (150-450)
[2023-10-17 08:05] LABS: ALT 13 U/L (4-49); AST 23 U/L (17-59); African American GFR (CKD) 46 (>60 ml/min/1.73 sqM); Albumin 3.3 g/dL (3.5-5.0); Albumin/Globulin Ratio 1.3; Alkaline Phosphatase 55 U/L (38-126); Anion Gap 6 mmol/L; Blood Urea Nitrogen 43 mg/dL (9-20); Calcium 8.6 mg/dL (8.4-10.2); Carbon Dioxide 14 mmol/L (22-30); Chloride 111 mmol/L (98-107); Globulin 2.5 g/dL; Glucose 121 mg/dL (74-99); Magnesium 2.1 mg/dL (1.6-2.3); Non-African American GFR(CKD) 40 (>60 ml/min/1.73 sqM); Potassium 5.4 mmol/L (3.5-5.1); Sodium 131 mmol/L (137-145); Total Bilirubin 1.2 mg/dL (0.2-1.3); Total Protein 5.8 g/dL (6.3-8.2)
[2023-10-17] MEDS: FUROSEMIDE 40 MG TAB PO SCH (08:46)
[2023-10-17] MEDS: PANTOPRAZOLE 40 MG TABLET PO SCH (08:46)
[2023-10-17] MEDS: ALBUMIN HUMAN 25% 50 ML in EMPTY BAG 1 BAG IVPB SCH (09:53)
[2023-10-17] MEDS: OCTREOTIDE 100 MCG/ML INJ SQ SCH (09:54)
[2023-10-17] MEDS: ONDANSETRON 4 MG/2 ML VIAL IVP PRN (10:12)
--- NOTE | 2023-10-17 10:27 | P.PN ---
Progress Note - Text Progress Note Date: 10/17/23 HPI: NAEO. Not passing any gas. Tolerating CLD. Pain is controlled General-NAD CVS-RRR Lungs-NLB Abdomen-soft, dressing C/D/I, CHRIS-serosang POD #1 Open Repair of Incarcerated Umbilical Hernia -FLD -Pain and Nausea Control -Follow up Cultures -IM for Medical Management -OOB, ambulate
--- NOTE | 2023-10-17 12:51 | P.NPCON ---
History of Present Illness - Reason for Consult acute renal failure - History of Present Illness patient is a 43-year-old male with history of alcohol-induced liver cirrhosis and previous episodes of acute kidney injury during an admission in April 2023. Patient is admitted to the hospital with complaints of abdominal pain. He is noticed to have an incarcerated umbilical hernia and is status post open repair of incarcerated umbilical hernia and umbilical to [place] on 10/16/2023. serum creatinine was 1.65 on admission and is 2.0 today. previous creatinine 1.0 on 10/14/2023. CO2 is 13. patient states he is voiding. blood pressure is on the lower side with systolic in the 90s. status post IV albumin today. Lasix is currently on hold. Review of Systems as per HPI Past Medical History Past Medical History: Hyperlipidemia, Hypertension, Liver Disease, Pneumonia Additional Past Medical History / Comment(s): Alcoholism, past withdrawals with tremors/diaphoresis, elevated LFTs, alcoholic liver cirrhosis follows with Liver specialist based out of [place], ascities with lg volume paracentesis, severe sepsis/aspiration pneumonia, occasional upper back pain. 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 Smoking Status: Current every day smoker Past Alcohol Use History: None Reported, Abuse Additional Past Alcohol Use History / Comment(s): Pt started smoking in 2000 and a pack' and quit 2021. Pt has hx of alcoholism. He states he quit drinking in Apr 2022 Past Drug Use History: None Reported - Past Family History Mother Family Medical History: Cancer Additional Family Medical History / Comment(s): Mother has colon cancer. Father History Unknown: Yes Additional Family Medical History / Comment(s): All pt knows about his father is that he is . Medications and Allergies Home Medications Medication Instructions Recorded Confirmed Type Furosemide [Lasix] 40 mg PO DAILY #30 tablet 03/02/23 10/16/23 Rx HYDROcodone/APAP 5-325MG [[place] 1 - 2 tab PO Q4HR PRN 01/10/24 06/21/24 History 5-325] Midodrine HCl [ProAmatine] 10 mg PO TID 05/06/23 10/16/23 History Pantoprazole [Protonix] 40 mg PO DAILY 05/06/23 10/16/23 History Spironolactone [Aldactone] 25 mg PO BID #60 tab 05/14/23 10/16/23 Rx Allergies Allergy/AdvReac Type Severity Reaction Status Date / Time ibuprofen [From Motrin] Allergy Swelling Verified 10/16/23 14:20 Lips naproxen Allergy Swelling Verified 10/16/23 14:20 Lips Physical Exam Vitals: Vital Signs Temp Pulse Pulse Pulse Resp BP BP 10/17/23 08:45 100/55 10/17/23 08:00 97.9 F 66 16 10/17/23 02:00 97.6 F 79 16 10/17/23 00:49 97.7 F 80 15 10/16/23 21:40 82 16 10/16/23 21:01 83 16 10/16/23 20:59 97.5 F L 83 16 10/16/23 19:40 79 16 10/16/23 19:10 79 16 10/16/23 18:40 76 10/16/23 18:25 75 10/16/23 18:10 72 10/16/23 17:55 97.3 F L 75 10/16/23 17:16 82 16 115/54 10/16/23 17:01 79 16 105/51 10/16/23 16:49 97.5 F L 77 16 113/51 10/16/23 15:13 66 16 96/51 10/16/23 14:58 68 20 101/55 10/16/23 14:22 120/55 10/16/23 14:18 98 F 71 16 10/16/23 14:02 65 18 102/52 10/16/23 13:08 65 18 107/62 BP Pulse Ox 10/17/23 08:45 10/17/23 08:00 98/58 99 10/17/23 02:00 97/57 100 10/17/23 00:49 97/57 98 10/16/23 21:40 110/63 100 10/16/23 21:01 10/16/23 20:59 112/59 100 10/16/23 19:40 117/63 100 10/16/23 19:10 114/61 100 10/16/23 18:40 115/61 100 10/16/23 18:25 110/62 10/16/23 18:10 114/61 10/16/23 17:55 111/62 100 10/16/23 17:16 100 10/16/23 17:01 100 10/16/23 16:49 100 10/16/23 15:13 100 10/16/23 14:58 98 10/16/23 14:22 10/16/23 14:18 100 10/16/23 14:02 100 10/16/23 13:08 100 Intake and Output 10/16/23 10/17/23 10/17/23 22:59 06:59 14:59 Intake Total 650 Output Total 5 100 Balance 645 -100 Intake: IV 650 Output: Urine 100 Estimated Blood Loss 5 Other: Voiding Method Toilet Urinal # Voids 0 Weight 81.647 kg patient is awake, comfortable, no acute distress. Alert oriented 3 Examination of the heart S1 and S2 Examination of the lungs bilateral breath sounds are heard Abdomen is soft , , tender, incision is dressed Examination of lower extremities shows no significant edema REGULATORY AGENCY DIRECTOR exam grossly intact Results - Lab Results Most recent lab results Calcium 8.6 mg/dL (8.4-10.2) 10/17/23 06:42 Magnesium 2.1 mg/dL (1.6-2.3) 10/17/23 06:42 10/17/23 06:42 10/17/23 06:42 Assessment and Plan Assessment: 1. Acute kidney injury, ATN currently nonoliguric secondary to hypotension and some degree of volume depletion.check UA. no evidence of obstruction on computed tomography scan on 09/04/2023. 2. Non- gap metabolic acidosis associated with acute kidney injury. 3. Mild hyperkalemia associated with acute kidney injury and metabolic acidosis 4. History of EtOH-related liver cirrhosis. 5. Status post open repair of incarcerated umbilical hernia and umbilical to me on 10/16/2023. 6. Anemia and with no active bleeding noted. Check iron profile Plan: add IV bicarb. Monitor urine output closely. Repeat labs in a.m. Avoid nephrotoxic agents. Check iron profile. Thank you for the consultation. We will continue to follow the patient with you during his hospitalization.
--- NOTE | 2023-10-17 13:03 | P.PN ---
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 He presented to the emergency department on 10/16/23 with a chief complaint of intractable abdominal pain and reports umbilical hernia is now nonreducible. Upon arrival to our facility, patient underwent evaluation in the emergency department. Vital signs upon arrival show blood pressure 115/69, heart rate 76, respiratory rate 18, temp 97.8 F, and SpO2 100% on room air. EKG completed showing normal sinus rhythm at 63 bpm with no noted T wave or ST abnormalities showing no signs of acute ischemia upon personal review and interpretation. Labs were completed and reviewed. CBC showing bicytopenia with hemoglobin of 7.9 and platelet count of 98. Coagulation profile showing elevated PT of 14.7 and INR 1.4. BMP showing hyponatremia with sodium of 133, hyperchloremia with chloride of 110, hypocarbia with bicarb of 13, and anion gap of 10 with renal function consistent with stage IIIb CKD showing BUN of 35, creatinine 1.65, GFR 51. Blood glucose was 119. Lactic acid was 1.8. Liver profile was unremarkable. Patient was evaluated by general surgeon, he is being admitted to general surgery team with plans to be taken to the OR for open surgical repair of incarcerated umbilical hernia. We were consulted for preoperative medical clearance and postoperative medical management. On 10/16/2023 patient underwent open repair of incarcerated umbilical hernia with umbillectomy. Physical exam: Vital signs reviewed and stable. General: Nontoxic, no distress and appears stated age. Chronically ill- appearing with sarcopenia Derm: Skin warm and dry, jaundiced Head: Atraumatic, normocephalic and symmetric. Eyes: EOMs intact, no lid lag Mouth: no lip lesions, mucus membranes moist Cardiovascular: regular rate and rhythm with normal S1S2, soft systolic murmur, positive posterior tibial pulses bilaterally, and cap refill < 2 seconds. Lungs: Respirations even, regular, and unlabored on room air. Lungs CTA bilaterally, no rhonchi, no rales, no wheezing, and no accessory muscle usage. Abdominal: Abdomen soft, tenderness, surgical dressing midline abdomen intact. Drain in place to lower abdomen. Ext: ROM intact. No gross muscle atrophy, no edema, no contractures Neuro: Speech clear, face symmetrical and CN II-XII grossly intact with no noted focal neuro deficits Psych: Alert and oriented to person, place, time, and situation. Appropriate and pleasant affect. Assessment and Plan of Care: Incarcerated/Strangulated Umbilical Hernia Status post open repair of incarcerated umbilical hernia with umbillectomy -Management per primary admitting general surgery team including DVT prophylaxis, pain management, wound/dressing/drain management, and advancement of diet and activity. -Currently DVT prophylaxis with LAURO hose and SCDs Acute kidney injury, concerns of possible hepatorenal syndrome. Hyperkalemia -Acute kidney injury with BUN of 43, creatinine 2.02, GFR 40 and hyperkalemia with potassium of 5.4. -Aldactone and lasix held at this time. Pt started on octreotide 100 mcg subcutaneously every 8 hours, albumin 25 g IVPB x one dose and to continue midodrine 10 mg 3x daily. -Consult also placed to nephrology for evaluation and further recommendations. Advanced alcoholic liver cirrhosis Hyponatremia, secondary to liver cirrhosis with ascites Non-anion gap metabolic acidosis Bicytopenia, secondary to advanced liver cirrhosis Elevated INR, secondary to advanced liver cirrhosis -MELD score is 19 points -Patient to continue midodrine 10 mg 3 times daily. Aldactone and Lasix held at this time secondary to IVAN and concerns of hepatorenal syndrome. -We will continue to monitor liver function, coagulation profile, hemoglobin, platelet count, and sodium levels closely with repeat morning labs and place additional orders if indicated based upon these findings. Chronic kidney disease stage IIIb -Renal function currently stable and at baseline with BUN of 35, creatinine 1.65, and GFR 51. Nicotine dependence -Recommend smoking cessation and order placed for nicotine patch 21 mg daily. Data and imaging reviewed: Morning labs reviewed. CBC showing stable bicytopenia with hemoglobin of 7.5 and platelet count of 81. BMP showing hyponatremia with sodium of 131, hyperk alemia with potassium of 5.4, hyperchloremia with chloride of 111, bicarb 14, and acute kidney injury with BUN of 43, creatinine 2.02, and GFR of 40. Vital signs reviewed. Pressure 98/58, heart rate 66, respiratory rate 16, temp 97.9 F, SpO2 of 99% on room air. Thank you for allowing us to participate in the care of this pleasant patient. Do not hesitate to contact us with questions. Someone can be reached from the [facility] hospitalist group all hours of the day at [phone] or via [employer]local serve. Patient was seen independently by Nurse Practitioner. This document was prepared using [employer] dictation software. Please allow for errors in cost manager while rare they do occur. . I reviewed the documentation as provided by the TESSY above, who is the original author of this note. I agree with the documented assessment and plan, with the following changes: none Objective - Vital Signs Vital signs: Vital Signs Temp 97.9 F 10/17/23 08:00 Pulse 66 10/17/23 08:00 Resp 16 10/17/23 08:00 BP 100/55 10/17/23 08:45 Pulse Ox 99 10/17/23 08:00 FiO2 Intake & Output 10/16/23 10/17/23 10/17/23 18:59 06:59 18:59 Intake Total 950 Output Total 5 100 Balance 945 -100 Weight 81.647 kg Intake: IV 950 Output: Urine 100 Estimated Blood Loss 5 Other: Voiding Method Toilet Toilet Urinal Urinal # Voids 0 0 - Labs CBC & Chem 7: 10/21/23 05:19 10/21/23 05:19 Labs: Abnormal Lab Results - Last 24 Hours (Table) 10/16/23 10/17/23 10/17/23 Range/Units 08:31 06:42 06:42 RBC 2.80 L (4.30-5.90) m/uL Hgb 7.5 L (13.0-17.5) gm/dL Hct 24.9 L (39.0-53.0) % MCHC 30.1 L (31.0-37.0) g/dL RDW 18.5 H (11.5-15.5) % Plt Count 81 L (150-450) k/uL Lymphocytes # 0.6 L (1.0-4.8) k/uL PT 14.7 H (10.0-12.5) sec INR 1.4 H (<1.2) Sodium 131 L (137-145) mmol/L Potassium 5.4 H (3.5-5.1) mmol/L Chloride 111 H (98-107) mmol/L Carbon Dioxide 14 L (22-30) mmol/L BUN 43 H (9-20) mg/dL Creatinine 2.02 H (0.66-1.25) mg/dL Glucose 121 H (74-99) mg/dL Total Protein 5.8 L (6.3-8.2) g/dL Albumin 3.3 L (3.5-5.0) g/dL Microbiology - Last 24 Hours (Table) 10/16/23 16:40 Gram Stain - Preliminary Abdomen
[2023-10-17] MEDS: DEXTROSE 5% IN WATER 1,000 ML with SODIUM BICARB (1 MEQ/ML) 150 ML IV SCH (14:07)
[2023-10-17] MEDS: PROCHLORPERAZINE INJ 10 MG/2 ML VIAL IVP PRN (18:02)
[2023-10-17] MEDS: CALCIUM CARBONATE 500 MG CHEWABLE PO PRN (22:55)
[2023-10-18] MEDS: PANTOPRAZOLE 40 MG/10 ML VIAL IVP SCH (09:15)
[2023-10-18] MEDS: ALBUMIN HUMAN 25% 50 ML in EMPTY BAG 1 BAG IVPB SCH (09:20)
--- NOTE | 2023-10-18 09:20 | P.PN ---
Subjective Progress Note Date: 10/18/23 Principal diagnosis: Incarcerated umbilical hernia Patient says his pain is improved from preop. He did have an episode of vomiting this morning that was coffee-ground. No mono hematemesis noted by nursing staff. Denies bloating. No nausea currently. Labs noted. Peritoneal cultures negative thus far. Objective - Vital Signs Vital signs: Vital Signs Temp 98.0 F 10/18/23 07:55 Pulse 82 10/18/23 07:55 Resp 16 10/18/23 07:55 BP 97/60 10/18/23 07:55 Pulse Ox 96 10/18/23 07:55 FiO2 Intake & Output 10/17/23 10/18/23 10/18/23 18:59 06:59 18:59 Output Total 250 400 25 Balance -250 -400 -25 Output: Drainage 25 Lower Abdomen 25 Urine 250 400 Other: Voiding Method Toilet Urinal # Voids 2 1 # Bowel Movements 0 0 - Exam Abdomen: Soft, nondistended, Prevena dressing in place with out significant output, CHRIS drain serosanguineous without significant output - Labs CBC & Chem 7: 10/17/23 06:42 10/17/23 06:42 Labs: Microbiology - Last 24 Hours (Table) 10/16/23 16:40 Gram Stain - Preliminary Abdomen Wound Culture - Preliminary Assessment and Plan (1) Incarcerated umbilical hernia Narrative/Plan: 43-year-old male post encouraged her umbilical hernia repair. Patient extremely high risk for ascitic fluid leak. Monitor drain output closely. If fluid leak identified consider transfer to advanced liver center. Continue diuretics. Minimize IV fluids per nephrology. Resume liquid diet. Monitor for any further bleeding. Current Visit: Yes Status: Acute Code(s): K42.0 - UMBILICAL HERNIA WITH OBSTRUCTION, WITHOUT GANGRENE SNOMED Code(s): 944551263
[2023-10-18 09:21] LABS: ALT 10 U/L (10-49); AST 18 U/L (14-35); Albumin 3.8 g/dL (3.8-4.9); Alkaline Phosphatase 52 U/L (41-126); BUN/Creat Ratio 18.33 Ratio (12.00-20.00); Blood Urea Nitrogen 60.5 mg/dL (9.0-27.0); Calcium 7.6 mg/dL (8.7-10.3); Chloride 102 mmol/L (96-109); Globulin 1.9 g/dL (1.6-3.3); Glucose 177 mg/dL (70-110); Magnesium 2.2 mg/dL (1.5-2.4); Potassium 4.7 mmol/L (3.5-5.5); Sodium 132 mmol/L (135-145); Total Bilirubin 0.8 mg/dL (0.3-1.2); Total Protein 5.7 g/dL (6.2-8.2)
[2023-10-18 09:33] LABS: HGB 7.5 g/dL (13.0-17.0); MCHC 31.3 g/dL (32.0-37.0); MCV 83.3 FL (80.0-97.0); Mean Platelet Volume 11.2 FL (9.5-12.2); NRBC Per 100 WBC 0 X 10*3/uL (0.00-0.01); Platelet Count 138 X 10*3/uL (140-440); RBC 2.88 X 10*6/uL (4.40-5.60); RDW 18.8 % (11.5-14.5)
--- NOTE | 2023-10-18 14:04 | P.PN ---
Subjective patient is seen for follow-up for acute kidney injury, most likely hepatorenal syndrome. Renal function has deteriorated with serum creatinine up to 3.3 mg/dL today. patient has been voiding. 24 hour urine output at 650 ML. He has received albumin today. Also maintained on midodrine and Sandostatin. Blood pressure is on the lower side. no complaints of shortness of breath. Objective - Vital Signs Vital signs: Vital Signs Temp 98.0 F 10/18/23 07:55 Pulse 82 10/18/23 07:55 Resp 16 10/18/23 07:55 BP 97/60 10/18/23 07:55 Pulse Ox 96 10/18/23 07:55 FiO2 Intake & Output 10/17/23 10/18/23 10/18/23 18:59 06:59 18:59 Output Total 250 400 25 Balance -250 -400 -25 Output: Drainage 25 Lower Abdomen 25 Urine 250 400 Other: Voiding Method Toilet Urinal # Voids 2 1 # Bowel Movements 0 0 - Exam Patient is awake, comfortable, no acute distress. Alert oriented 3 Examination of the heart S1 and S2 Examination of the lungs bilateral breath sounds are heard Abdomen is soft , , tender, incision is dressed Examination of lower extremities shows no significant edema TELEPHONE TRIAGE NURSE exam grossly intact - Labs CBC & Chem 7: 10/18/23 04:39 10/18/23 04:39 Labs: Abnormal Lab Results - Last 24 Hours (Table) 10/18/23 10/18/23 Range/Units 04:39 04:39 WBC 16.40 H (4.50-10.00) X 10*3/uL RBC 2.88 L (4.40-5.60) X 10*6/uL Hgb 7.5 L (13.0-17.0) g/dL Hct 24.0 L (39.6-50.0) % MCH 26.0 L (27.0-32.0) pg MCHC 31.3 L (32.0-37.0) g/dL RDW 18.8 H (11.5-14.5) % Plt Count 138 L (140-440) X 10*3/uL Sodium 132 L (135-145) mmol/L Carbon Dioxide 15.0 L (21.6-31.8) mmol/L Anion Gap 15.00 H (4.00-12.00) mmol/L BUN 60.5 H (9.0-27.0) mg/dL Creatinine 3.3 H (0.6-1.5) mg/dL Est GFR (CKD-EPI) 23 L (>=60) Glucose 177 H (70-110) mg/dL Calcium 7.6 L (8.7-10.3) mg/dL Total Protein 5.7 L (6.2-8.2) g/dL Microbiology - Last 24 Hours (Table) 10/16/23 16:40 Gram Stain - Preliminary Abdomen Wound Culture - Preliminary Assessment and Plan Assessment: 1. Acute kidney injury, ATN from hypotension versus hepatorenal syndrome. UA is pending. No evidence of obstruction on computed tomography scan on 09/04/2023. 2. Non- gap metabolic acidosis associated with acute kidney injury. 3. Mild hyperkalemia associated with acute kidney injury and metabolic acidosis 4. History of EtOH-related liver cirrhosis. 5. Status post open repair of incarcerated umbilical hernia and umbilical to fl on 10/16/2023. 6. Anemia and with no active bleeding noted. Check iron profile Plan: continue with IV bicarb. Continue with midodrine and Sandostatin along with albumin. IV fluid bolus 1. Monitor urine output closely. Repeat labs in a.m. Avoid nephrotoxic agents. Check iron profile. Agree with checking ultrasound of the kidneys.
[2023-10-18 14:32] LABS: Anisocytosis Slight; HCT 23.4 % (39.0-53.0); HGB 7.4 gm/dL (13.0-17.5); Hypochromasia Moderate; MCH 26.9 pg (25.0-35.0); MCHC 31.6 g/dL (31.0-37.0); Mean Platelet Volume 9.2; Platelet Count 104 k/uL (150-450); RBC 2.75 m/uL (4.30-5.90)
[2023-10-18] MEDS: SODIUM CHLORIDE 0.9% 1,000 ML IV ONE (14:41)
--- NOTE | 2023-10-18 14:49 | P.PN ---
Subjective Progress Note Date: 10/18/23 Hospital Course: Patient is a very pleasant 43-year-old male with a past medical history of advanced alcoholic liver cirrhosis follows with educational coordinator/patient relations director at [facility] and undergoes weekly paracentesis at this time with last paracentesis being 10/14/2023 with a documented removal of 10,000 cc of ascitic fluid, chronic kidney disease stage IIIb, depression, PTSD, and nicotine dependence. He presented to the emergency department on 10/16/23 with a chief complaint of intractable abdominal pain and reports umbilical hernia is now nonreducible. Upon arrival to our facility, patient underwent evaluation in the emergency department. Vital signs upon arrival show blood pressure 115/69, heart rate 76, respiratory rate 18, temp 97.8 F, and SpO2 100% on room air. EKG completed showing normal sinus rhythm at 63 bpm with no noted T wave or ST abnormalities showing no signs of acute ischemia upon personal review and interpretation. Labs were completed and reviewed. CBC showing bicytopenia with hemoglobin of 7.9 and platelet count of 98. Coagulation profile showing elevated PT of 14.7 and INR 1.4. BMP showing hyponatremia with sodium of 133, hyperchloremia with chloride of 110, hypocarbia with bicarb of 13, and anion gap of 10 with renal function consistent with stage IIIb CKD showing BUN of 35, creatinine 1.65, GFR 51. Blood glucose was 119. Lactic acid was 1.8. Liver profile was unremarkable. Patient was evaluated by general surgeon, he is being admitted to general surgery team with plans to be taken to the OR for open surgical repair of incarcerated umbilical hernia. We were consulted for preoperative medical clearance and postoperative medical management. On 10/16/2023 patient underwent open repair of incarcerated umbilical hernia with umbillectomy. Physical exam: Patient seen and fully evaluated at bedside this morning. Patient had episode of coffee-ground emesis this morning and gastric occult was positive. He reports mild postoperative pain but denies any worsening of pain. He continues to deny any chest pain, palpitations, shortness of breath or any other complaints at this time. Vital signs reviewed and stable. General: Nontoxic, no distress and appears stated age. Chronically ill- appearing with sarcopenia Derm: Skin warm and dry, jaundiced Head: Atraumatic, normocephalic and symmetric. Eyes: EOMs intact, no lid lag Mouth: no lip lesions, mucus membranes moist Cardiovascular: regular rate and rhythm with normal S1S2, soft systolic murmur, positive posterior tibial pulses bilaterally, and cap refill < 2 seconds. Lungs: Respirations even, regular, and unlabored on room air. Lungs CTA bilaterally, no rhonchi, no rales, no wheezing, and no accessory muscle usage. Abdominal: Abdomen soft, tenderness, surgical dressing midline abdomen intact. Drain in place to lower abdomen. Ext: ROM intact. No gross muscle atrophy, no edema, no contractures Neuro: Speech clear, face symmetrical and CN II-XII grossly intact with no noted focal neuro deficits Psych: Alert and oriented to person, place, time, and situation. Appropriate and pleasant affect. Assessment and Plan of Care: Incarcerated/Strangulated Umbilical Hernia Status post open repair of incarcerated umbilical hernia with umbillectomy -Management per primary admitting general surgery team including DVT prophylaxis, pain management, wound/dressing/drain management, and advancement of diet and activity. -Currently DVT prophylaxis with LAURO hose and SCDs Hematemesis, coffee-ground emesis -Patient had an isolated episode of coffee-ground emesis with positive gastric occult. -General surgery following aware. -Hemoglobin stable at 7.5. Will continue to monitor Hgb levels closely and transfuse if indicated for Hgb < 7. -Continue GI prophylaxis with Protonix 40 mg twice daily. Acute kidney injury, likely due to hepatorenal syndrome. High anion gap metabolic acidosis Hyperkalemia, resolved Hypotension -Renal function worsening today with BUN of 60.5, creatinine of 3.3, and GFR of 23. -Aldactone and lasix continue to be held. -Continue Octreotide 100 mcg subcutaneously every 8 hours, albumin 25 g IVPB daily and midodrine increased to 15 mg 3x daily. -Nephrology following and discussed plan of care with tennis professional. Recommending continuation of sodium bicarb drip at 80 mL/h. -Order placed for strict I's and O's -Ultrasound kidneys/renal/bladder ordered. Advanced alcoholic liver cirrhosis Hyponatremia, secondary to liver cirrhosis with ascites Non-anion gap metabolic acidosis Bicytopenia, secondary to advanced liver cirrhosis Elevated INR, secondary to advanced liver cirrhosis -MELD score 19 points on arrival -Patient to continue midodrine 10 mg 3 times daily. Aldactone and Lasix held at this time secondary to IVAN and concerns of hepatorenal syndrome. -We will continue to monitor liver function, coagulation profile, hemoglobin, platelet count, and sodium levels closely with repeat morning labs and place additional orders if indicated based upon these findings. Chronic kidney disease stage IIIb -Renal function currently stable and at baseline with BUN of 35, creatinine 1.65, and GFR 51. Nicotine dependence -Recommend smoking cessation and order placed for nicotine patch 21 mg daily. Data and imaging reviewed: Morning labs reviewed. CBC showing leukocytosis with WBC count 16.40 and continued but stable bicytopenia with hemoglobin of 7.5 and platelet count of 138. BMP showing hyponatremia with sodium of 132 hypocarbia with bicarb of 15 and elevated anion gap of 15. Renal function worsening with BUN of 60.5, creatinine 3.3, GFR of 23. Blood glucose 177. Liver profile showing normal findings. Vital signs reviewed. Pressure 97/60, heart rate 82, respiratory rate 16, temp 98.0 F, and SpO2 of 96% on room air.. Thank you for allowing us to participate in the care of this pleasant patient. Do not hesitate to contact us with questions. Someone can be reached from the [facility] [place] hospitalist group all hours of the day at [phone] or via [employer]. Patient was seen independently by Nurse Practitioner. This document was prepared using [employer] dictation software. Please allow for errors in lead java software engineer while rare they do occur. Pako Mendoza NP rendered care for this patient independently, reviewed the findings and plan as documented in the note above. I did not physically speak with or examine the patient on this date. Objective - Vital Signs Vital signs: Vital Signs Temp 98.0 F 10/18/23 07:55 Pulse 82 10/18/23 07:55 Resp 16 10/18/23 07:55 BP 97/60 10/18/23 07:55 Pulse Ox 96 10/18/23 07:55 FiO2 Intake & Output 10/17/23 10/18/23 10/18/23 18:59 06:59 18:59 Output Total 250 400 25 Balance -250 -400 -25 Output: Drainage 25 Lower Abdomen 25 Urine 250 400 Other: Voiding Method Toilet Urinal # Voids 2 1 # Bowel Movements 0 0 - Labs CBC & Chem 7: 10/19/23 05:20 10/19/23 05:20 Labs: Microbiology - Last 24 Hours (Table) 10/16/23 16:40 Gram Stain - Preliminary Abdomen Wound Culture - Preliminary
--- NOTE | 2023-10-18 15:41 | US ---
EXAMINATION TYPE: US kidneys/renal and bladder DATE OF EXAM: 10/18/2023 COMPARISON: NONE CLINICAL INDICATION: Male, 43 years old with history of IVAN, worsening; Patient with liver disease an d ascites had incarcerated umbilical hernia repair 2 days ago, worsening ivan now. Non-diagnostic exam of the kidneys. Patient was sleeping during exam. There is too much bowel gas in terfering with any view of the renals today. IMPRESSION: Examination is considered nondiagnostic. There is evidence of ascites.
[2023-10-18] MEDS: MIDODRINE 5 MG TAB PO SCH (17:28)
[2023-10-18 22:16] LABS: African American GFR (CKD) 28 (>60 ml/min/1.73 sqM); Anion Gap 13 mmol/L; Blood Urea Nitrogen 66 mg/dL (9-20); Calcium 7.8 mg/dL (8.4-10.2); Carbon Dioxide 13 mmol/L (22-30); Chloride 108 mmol/L (98-107); Glucose 104 mg/dL (74-99); Non-African American GFR(CKD) 25 (>60 ml/min/1.73 sqM); Potassium 4.4 mmol/L (3.5-5.1); Sodium 134 mmol/L (137-145)
[2023-10-18 22:32] LABS: Allen Test Performed? Yes
[2023-10-18 22:36] LABS: ABG PCO2 24 mmHg (35-45); ABG PH 7.45 (7.35-7.45); ABG PO2 70 mmHg (83-108)
[2023-10-18 22:37] LABS: ABG Base Excess -6.7 mmol/L; ABG HCO3 17 mmol/L (21-25); ABG TCO2 17 mmol/L (19-24)
[2023-10-18 22:39] LABS: Lactic Acid, Venous 2.4 mmol/L (0.7-2.0)
[2023-10-18 22:40] LABS: Glucose,Whole Blood 105 mg/dL (70-110)
[2023-10-19] MEDS: LACTULOSE 200 GM/300 ML (FROM 1/2 GAL JUG) RECTAL SCH (00:10)
--- NOTE | 2023-10-19 01:30 | P.EN ---
patient seems to have been decompensated into hepatic encephalopathy , elevated ammonia 157 vitals stable SBP 107 oxygen sat 98-100% on room air opens eyes to verbal stimulation , and makes brief eye contact, otherwise lethargic not following commands can not take PO hepatic encephalopathy start lactulose rectally can not take PO continue to monitor Hgb due to suspected GI bleed continue with PPI IVP BID continue with sandostatin surgery following check PT/INR , liver enzymes, follow up ammonia level hepatorenal syndrome nephro following consider transfer to tertiary hepatic center for further care
[2023-10-19 01:32] LABS: Anisocytosis Slight; HGB 8.3 gm/dL (13.0-17.5); Hypochromasia Moderate; MCH 26.1 pg (25.0-35.0); MCHC 30.6 g/dL (31.0-37.0); MCV 85.5 fL (80.0-100.0); Mean Platelet Volume 8.7; Platelet Count 134 k/uL (150-450); RBC 3.16 m/uL (4.30-5.90); RDW 19.2 % (11.5-15.5); WBC 15.8 k/uL (3.8-10.6)
[2023-10-19] MEDS: LORazepam 2 MG/ML INJ IM STA (03:08)
[2023-10-19] MEDS: HALOPERIDOL LACTATE 5 MG/ML 1 ML VIAL IM STA ×2 (04:36→04:56)
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
[2023-10-19] MEDS: SODIUM CHLORIDE 0.9% 1,000 ML IV ONE ×3 (06:52→15:35)
[2023-10-19 07:22] LABS: Glucose,Whole Blood 127 mg/dL (70-110)
[2023-10-19 08:23] LABS: ABG Base Excess -6.6 mmol/L; ABG HCO3 17 mmol/L (21-25); ABG Oxygen Saturation 72.8 % (94-97); ABG PCO2 27 mmHg (35-45); ABG PH 7.41 (7.35-7.45); ABG TCO2 18 mmol/L (19-24); Allen Test Performed? Yes
[2023-10-19 08:23] LABS: HCT 26.3 % (39.6-50.0); HGB 8.3 g/dL (13.0-17.0); MCH 26.2 pg (27.0-32.0); MCHC 31.6 g/dL (32.0-37.0); Mean Platelet Volume 11.3 FL (9.5-12.2); NRBC Per 100 WBC 0.04 X 10*3/uL (0.00-0.01); Platelet Count 156 X 10*3/uL (140-440); RBC 3.17 X 10*6/uL (4.40-5.60); RDW 19.4 % (11.5-14.5); WBC 18.86 X 10*3/uL (4.50-10.00)
[2023-10-19 08:28] LABS: ABG PO2 40 mmHg (83-108)
[2023-10-19 08:49] LABS: Magnesium 2.1 mg/dL (1.5-2.4)
[2023-10-19 08:52] LABS: ALT 10 U/L (10-49); AST 23 U/L (14-35); Albumin 4.2 g/dL (3.8-4.9); Albumin/Globulin Ratio 2.33 Ratio (1.60-3.17); Alkaline Phosphatase 56 U/L (41-126); Blood Urea Nitrogen 69.6 mg/dL (9.0-27.0); Calcium 8.1 mg/dL (8.7-10.3); Chloride 106 mmol/L (96-109); Globulin 1.8 g/dL (1.6-3.3); Glucose 126 mg/dL (70-110); Potassium 4.5 mmol/L (3.5-5.5); Sodium 137 mmol/L (135-145); Total Bilirubin 1.5 mg/dL (0.3-1.2)
[2023-10-19 09:20] LABS: INR 1.5 (<1.2); Prothrombin Time 15.8 sec (10.0-12.5)
[2023-10-19] MEDS: ALBUMIN HUMAN 25% 50 ML IV SCH ×2 (09:39→11:30)
[2023-10-19 10:53] LABS: ABG Base Excess -8.5 mmol/L; ABG HCO3 18 mmol/L (21-25); ABG Oxygen Saturation 100.6 % (94-97); ABG PCO2 41 mmHg (35-45); ABG PH 7.26 (7.35-7.45); ABG PO2 393 mmHg (83-108); ABG TCO2 19 mmol/L (19-24); Allen Test Performed? Yes
[2023-10-19] MEDS: LORazepam 2 MG/ML INJ IV STA (10:54)
[2023-10-19] MEDS: CISATRACURIUM 2 MG/ML 5 ML VIAL IV ONE (10:54)
[2023-10-19] MEDS: MORPHINE SULFATE 4 MG/ML SYRINGE IVP STA (10:54)
[2023-10-19] MEDS: SUCCINYLCHOLINE CHLORIDE 200 MG/10 ML VIAL IV STA (11:07)
[2023-10-19] MEDS: propofoL 100 ML IV ONE (11:10)
--- NOTE | 2023-10-19 11:22 | OP ---
OPERATIVE REPORT DATE OF SERVICE : PROCEDURE: Right radial arterial line. PREOPERATIVE DIAGNOSES: Frequent blood draws and blood gas monitoring. POSTOPERATIVE DIAGNOSIS: Frequent blood draws and blood gas monitoring. ARTERIAL LINE PLACEMENT: Indications: Hemodynamic monitoring. I have discussed the risks, benefits and alternative therapies for the above-mentioned procedure and for both sedation/analgesia as well as necessary blood product administration, if indicated, as they pertain to this patient. The patient has indicated his understanding and acceptance of the risks and procedures discussed. Procedure took place in the patient's room 263. A time-out was completed verifying correct patient, procedure, site, positioning, and implant(s) or special equipment if applicable. Man's test was performed to ensure adequate perfusion. The patient's right wrist was prepped and draped in sterile fashion. 1% Lidocaine was used to anesthetize the area. An 18G Arrow arterial line was introduced into the radial artery. The catheter was threaded over the guide wire and the needle was removed with appropriate pulsatile blood return. Blood loss was minimal. The catheter was then sutured in place to the skin and a sterile dressing applied. Perfusion to the extremity distal to the point of catheter insertion was checked and found to be adequate. The patient tolerated the procedure well. There was good blood return and waveform. The catheter was sutured in place. Sterile dressing was applied by the nurse. There was no immediate complication. MMODL / IJN: [id number] /
--- NOTE | 2023-10-19 11:22 | OP ---
OPERATIVE REPORT DATE OF SERVICE : PROCEDURE: Left subclavian triple-lumen catheter. PREOPERATIVE DIAGNOSIS: Administration of fluids and pressors. POSTOPERATIVE DIAGNOSIS: Administration of fluids and pressors. TRIPLE LUMEN CATHETER PLACEMENT: Indication: Hemodynamic monitoring/Intravenous access. I have discussed the risks, benefits and alternative therapies for the above-mentioned procedure and for both sedation/analgesia as well as necessary blood product administration, if indicated, as they pertain to this patient. The patient has indicated his understanding and acceptance of the risks and procedures discussed. Procedure took place in the patient's room 263. A time-out was completed verifying correct patient, procedure, site, positioning, and implant(s) or special equipment if applicable. The patient was placed in a dependent position appropriate for triple lumen catheter placement based on the vein to be cannulated. The patient's left shoulder was prepped and draped in sterile fashion. 1% Lidocaine was used to anesthetize the surrounding skin area. A triple lumen 9F Cordis catheter was introduced into the subclavian vein using Seldinger technique. The catheter was threaded smoothly over the guide wire and appropriate blood return was obtained. Each lumen of the catheter was evacuated of air and flushed with sterile saline. The catheter was then sutured in place to the skin and a sterile dressing applied. Perfusion to the extremity distal to the point of catheter insertion was checked and found to be adequate. There was good blood return from all 3 ports. The patient tolerated the procedure well. The catheter was sutured in place. Sterile dressing was applied by the nurse. The tip of the catheter was seen at the junction of the superior vena cava and right atrium. MMODL / IJN: [id number] /
--- NOTE | 2023-10-19 11:26 | XR ---
EXAMINATION TYPE: XR chest 1V portable DATE OF EXAM: 10/19/2023 11:20 AM CLINICAL INDICATION:Male, 43 years old with history of Tube placement; [facility] COMPARISON: Chest radiographs from 01/08/2023 TECHNIQUE: XR chest 1V portable Frontal view of the chest. FINDINGS: Lungs/Pleura: There is no evidence of pleural effusion, focal consolidation, or pneumothorax. Pulmonary vascularity: Unremarkable. Heart/mediastinum: Cardiomediastinal silhouette is unremarkable. Musculoskeletal: No acute osseous pathology. Other findings: None Lines/Tubes: Endotracheal tube with distal tip 5.4 cm above the nathaniel. Nasogastric tube with its distal tip and side-port projecting under the diaphragm. IMPRESSION: Support tubes in appropriate placement. No acute cardiopulmonary disease/process.
--- NOTE | 2023-10-19 11:28 | OP ---
OPERATIVE REPORT DATE OF SERVICE : PROCEDURE: Emergency endotracheal intubation. PREOPERATIVE DIAGNOSIS: Respiratory failure impending. POSTOPERATIVE DIAGNOSIS: Respiratory failure impending. I have discussed the risks, benefits and alternative therapies for the above-mentioned procedure and for both sedation/analgesia as well as necessary blood product administration, if indicated, as they pertain to this patient. The patient has indicated his understanding and acceptance of the risks and procedures discussed. A time-out was completed verifying correct patient, procedure, site, positioning, and implant(s) or special equipment if applicable. We used a standard laryngoscope with #3 Eric blade. We used #8 endotracheal tube with a stylet. The glottic opening was seen on direct visualization with the laryngeal scope. The endotracheal tube was pushed through the glottic opening into the trachea. There was good color change on the qualitative capnography device. The pilot submersible balloon was inflated. There were good bilateral breath sounds. A chest x-ray was ordered to check placement. The patient was connected to the mechanical ventilator. For sedation, the patient received 2 mg of Ativan, 5 mg of morphine, 3 cc or 60 mg of succinylcholine and then after intubation was accomplished, 10 mg of cisatracurium or Nimbex. Again, the patient tolerated the procedure well without complication. Procedure took place in the patient's room 263. MMODL / IJN: [id number] /
--- NOTE | 2023-10-19 11:43 | P.PN ---
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 He presented to the emergency department on 10/16/23 with a chief complaint of intractable abdominal pain and reports umbilical hernia is now nonreducible. Upon arrival to our facility, patient underwent evaluation in the emergency department. Vital signs upon arrival show blood pressure 115/69, heart rate 76, respiratory rate 18, temp 97.8 F, and SpO2 100% on room air. EKG completed showing normal sinus rhythm at 63 bpm with no noted T wave or ST abnormalities showing no signs of acute ischemia upon personal review and interpretation. Labs were completed and reviewed. CBC showing bicytopenia with hemoglobin of 7.9 and platelet count of 98. Coagulation profile showing e levated PT of 14.7 and INR 1.4. BMP showing hyponatremia with sodium of 133, hyperchloremia with chloride of 110, hypocarbia with bicarb of 13, and anion gap of 10 with renal function consistent with stage IIIb CKD showing BUN of 35, creatinine 1.65, GFR 51. Blood glucose was 119. Lactic acid was 1.8. Liver profile was unremarkable. Patient was evaluated by general surgeon, he is being admitted to general surgery team with plans to be taken to the OR for open surgical repair of incarcerated umbilical hernia. We were consulted for preoperative medical clearance and postoperative medical management. On 10/16/2023 patient underwent open repair of incarcerated umbilical hernia with umbillectomy. Renal function continued to worsen. Patient was started on albumin, midodrine increased, octreotide. Nephrology also consulted. Patient was started on bicarb drip. Patient became encephalopathic on 10/18 morning. Started on rectal lactulose. Was transferred to medical ICU. Continued to worsen, and was intubated subsequently. Also started on IV antibiotics. There is concern for GI bleed as well. Subjective: Patient seen and examined at bedside. Transferred overnight to medical ICU for acute encephalopathy as well as possible GI bleed. Pertinent positives and negatives as discussed above, a complete review of systems was performed and all other systems are negative. Vitals Signs Reviewed. General: Intubated sedated Derm: Warm, dry, jaundice Head: Atraumatic, normocephalic, symmetric Eyes: Scleral icterus, pupils equal and reactive Mouth: No lip lesion, mucus membranes moist, some blood in the mouth Cardiovascular: S1S2 reg, tachycardic, no murmur Lungs: CTA bilateral, no rhonchi, no rales, no accessory muscle use, intubated Abdominal: Soft, nontender to palpation, no guarding, no appreciable organomegaly, midline dressing clean, dry, intact Ext: Gross muscle atrophy Neuro: Sedated Psych: Unable to assess Data Reviewed Today: Pertinent Labs: WBC 18.86, hemoglobin 8.3, platelet 156, INR 1.5, pH 7.26, pCO2 41, bicarb 17, sodium 137, potassium 4.5, creatinine 3, lactate 2.8, total bili 1.5, ammonia 259 Imaging: Chest x-ray independently interpreted, shows no acute process, status post intubation Assessment and Plan: Active: Acute hepatic encephalopathy Suspected spontaneous bacterial peritonitis Sepsis likely secondary to above IVAN, secondary to suspected hepatorenal syndrome, history of CKD stage III History of advanced liver cirrhosis Metabolic acidosis Lactic acidosis Bicytopenia, secondary to liver cirrhosis Elevated INR Acute GI bleed Hypotension -Patient intubated and sedated -Pulmonology following -Started on IV ceftriaxone 2 g every 24 hours -Continue IV albumin daily, midodrine 15 3 times daily, octreotide 100 subQ every 8 hours -IV Protonix 40 twice daily -General surgery following -Nephrology following -Avoid narcotics -Patient is critically ill, prognosis very guarded Incarcerated/strangulated umbilical hernia status post open repair -Management per general surgery Resolved: Hyponatremia Hypokalemia Chronic: Nicotine dependence Thank you for allowing us to participate in the care of this pleasant patient. Do not hesitate to contact us with questions. Someone can be reached from the [facility] hospitalist group all hours of the day at [phone] or via perfect serve. Objective - Vital Signs Vital signs: Vital Signs Temp 98.0 F 10/19/23 08:00 Pulse 125 H 10/19/23 11:15 Resp 20 10/19/23 11:15 BP 176/91 10/19/23 11:15 Pulse Ox 97 10/19/23 11:15 FiO2 40 10/19/23 11:00 Intake & Output 10/18/23 10/19/23 10/19/23 18:59 06:59 18:59 Intake Total 344.831 Output Total 1389 490 50 Balance -1389 -490 294.831 Weight 80.5 kg Intake: IV 340 Albumin Human 25% 50 ml @ 100 50 mls/hr IV DAILY IRINA Rx#:[id number] Dextrose 5% in Water 1, 240 000 ml @ 80 mls/hr IV . [id number] IRINA with Sodium Bicarb (1 Meq/ml) 150 ml Rx#:[id number] Intake, IV Titration 4.831 Amount propofoL 1,000 mg In 4.831 Empty Bag 1 bag @ 15 MCG/ KG/MIN 7.245 mls/hr IV . [id number] IRINA Rx#:[id number] Output: Drainage 35 190 Lower Abdomen 35 190 Urine 850 300 50 Uretheral (Epps) 600 Post Void Residual 504 Other: # Bowel Movements 1 ABP, PAP, CO, CI - Last Documented Arterial Blood Pressure 118/58 - Labs CBC & Chem 7: 10/19/23 05:20 10/19/23 05:20 Labs: Abnormal Lab Results - Last 24 Hours (Table) 10/18/23 10/18/23 10/18/23 Range/Units 14:14 21:21 21:21 WBC 11.0 H (3.8-10.6) k/uL RBC 2.75 L (4.30-5.90) m/uL Hgb 7.4 L (13.0-17.5) gm/dL Hct 23.4 L (39.0-53.0) % MCH (27.0-32.0) pg MCHC (31.0-37.0) g/dL RDW 19.0 H (11.5-15.5) % Plt Count 104 L (150-450) k/uL NRBC/100 WBC Diff (0.00-0.01) X 10*3/uL PT (10.0-12.5) sec INR (<1.2) ABG pH (7.35-7.45) ABG pCO2 (35-45) mmHg ABG pO2 (83-108) mmHg ABG HCO3 (21-25) mmol/L ABG Total CO2 (19-24) mmol/L ABG O2 Saturation (94-97) % Sodium 134 L (137-145) mmol/L Chloride 108 H (98-107) mmol/L Carbon Dioxide 13 L (22-30) mmol/L Anion Gap (4.00-12.00) mmol/L BUN 66 H (9-20) mg/dL Creatinine 3.00 H (0.66-1.25) mg/dL Est GFR (CKD-EPI) (>=60) BUN/Creatinine Ratio (12.00-20.00) Ratio Glucose 104 H (74-99) mg/dL POC Glucose (mg/dL) (70-110) mg/dL Plasma Lactic Acid Willam 2.4 H* (0.7-2.0) mmol/L Calcium 7.8 L (8.4-10.2) mg/dL Total Bilirubin (0.3-1.2) mg/dL Ammonia 157 H (<30) umol/L Total Protein (6.2-8.2) g/dL 10/18/23 10/19/23 10/19/23 Range/Units 22:28 01:01 01:01 WBC 15.8 H (3.8-10.6) k/uL RBC 3.16 L (4.30-5.90) m/uL Hgb 8.3 L (13.0-17.5) gm/dL Hct 27.0 L (39.0-53.0) % MCH (27.0-32.0) pg MCHC 30.6 L (31.0-37.0) g/dL RDW 19.2 H (11.5-15.5) % Plt Count 134 L (150-450) k/uL NRBC/100 WBC Diff (0.00-0.01) X 10*3/uL PT (10.0-12.5) sec INR (<1.2) ABG pH (7.35-7.45) ABG pCO2 24 L (35-45) mmHg ABG pO2 70 L (83-108) mmHg ABG HCO3 17 L (21-25) mmol/L ABG Total CO2 17 L (19-24) mmol/L ABG O2 Saturation (94-97) % Sodium (137-145) mmol/L Chloride (98-107) mmol/L Carbon Dioxide (22-30) mmol/L Anion Gap (4.00-12.00) mmol/L BUN (9-20) mg/dL Creatinine (0.66-1.25) mg/dL Est GFR (CKD-EPI) (>=60) BUN/Creatinine Ratio (12.00-20.00) Ratio Glucose (74-99) mg/dL POC Glucose (mg/dL) (70-110) mg/dL Plasma Lactic Acid Willam 3.2 H* (0.7-2.0) mmol/L Calcium (8.4-10.2) mg/dL Total Bilirubin (0.3-1.2) mg/dL Ammonia (<30) umol/L Total Protein (6.2-8.2) g/dL 10/19/23 10/19/23 10/19/23 Range/Units 05:20 05:20 05:20 WBC 18.86 H (3.8-10.6) k/uL RBC 3.17 L (4.30-5.90) m/uL Hgb 8.3 L (13.0-17.5) gm/dL Hct 26.3 L (39.0-53.0) % MCH 26.2 L (27.0-32.0) pg MCHC 31.6 L (31.0-37.0) g/dL RDW 19.4 H (11.5-15.5) % Plt Count (150-450) k/uL NRBC/100 WBC Diff 0.04 H (0.00-0.01) X 10*3/uL PT (10.0-12.5) sec INR (<1.2) ABG pH (7.35-7.45) ABG pCO2 (35-45) mmHg ABG pO2 (83-108) mmHg ABG HCO3 (21-25) mmol/L ABG Total CO2 (19-24) mmol/L ABG O2 Saturation (94-97) % Sodium (137-145) mmol/L Chloride (98-107) mmol/L Carbon Dioxide 14.0 L (22-30) mmol/L Anion Gap 17.00 H (4.00-12.00) mmol/L BUN 69.6 H (9-20) mg/dL Creatinine 3.0 H (0.66-1.25) mg/dL Est GFR (CKD-EPI) 26 L (>=60) BUN/Creatinine Ratio 23.20 H (12.00-20.00) Ratio Glucose 126 H (74-99) mg/dL POC Glucose (mg/dL) (70-110) mg/dL Plasma Lactic Acid Willam (0.7-2.0) mmol/L Calcium 8.1 L (8.4-10.2) mg/dL Total Bilirubin 1.5 H (0.3-1.2) mg/dL Ammonia 259 H (<30) umol/L Total Protein 6.0 L (6.2-8.2) g/dL 10/19/23 10/19/23 10/19/23 Range/Units 05:20 07:20 08:21 WBC (3.8-10.6) k/uL RBC (4.30-5.90) m/uL Hgb (13.0-17.5) gm/dL Hct (39.0-53.0) % MCH (27.0-32.0) pg MCHC (31.0-37.0) g/dL RDW (11.5-15.5) % Plt Count (150-450) k/uL NRBC/100 WBC Diff (0.00-0.01) X 10*3/uL PT (10.0-12.5) sec INR (<1.2) ABG pH (7.35-7.45) ABG pCO2 27 L (35-45) mmHg ABG pO2 40 L* (83-108) mmHg ABG HCO3 17 L (21-25) mmol/L ABG Total CO2 18 L (19-24) mmol/L ABG O2 Saturation 72.8 L (94-97) % Sodium (137-145) mmol/L Chloride (98-107) mmol/L Carbon Dioxide (22-30) mmol/L Anion Gap (4.00-12.00) mmol/L BUN (9-20) mg/dL Creatinine (0.66-1.25) mg/dL Est GFR (CKD-EPI) (>=60) BUN/Creatinine Ratio (12.00-20.00) Ratio Glucose (74-99) mg/dL POC Glucose (mg/dL) 127 H (70-110) mg/dL Plasma Lactic Acid Willam 4.6 H* (0.7-2.0) mmol/L Calcium (8.4-10.2) mg/dL Total Bilirubin (0.3-1.2) mg/dL Ammonia (<30) umol/L Total Protein (6.2-8.2) g/dL 10/19/23 10/19/23 10/19/23 Range/Units 08:51 08:51 10:49 WBC (3.8-10.6) k/uL RBC (4.30-5.90) m/uL Hgb (13.0-17.5) gm/dL Hct (39.0-53.0) % MCH (27.0-32.0) pg MCHC (31.0-37.0) g/dL RDW (11.5-15.5) % Plt Count (150-450) k/uL NRBC/100 WBC Diff (0.00-0.01) X 10*3/uL PT 15.8 H (10.0-12.5) sec INR 1.5 H (<1.2) ABG pH 7.26 L (7.35-7.45) ABG pCO2 (35-45) mmHg ABG pO2 393 H (83-108) mmHg ABG HCO3 18 L (21-25) mmol/L ABG Total CO2 (19-24) mmol/L ABG O2 Saturation 100.6 H (94-97) % Sodium (137-145) mmol/L Chloride (98-107) mmol/L Carbon Dioxide (22-30) mmol/L Anion Gap (4.00-12.00) mmol/L BUN (9-20) mg/dL Creatinine (0.66-1.25) mg/dL Est GFR (CKD-EPI) (>=60) BUN/Creatinine Ratio (12.00-20.00) Ratio Glucose (74-99) mg/dL POC Glucose (mg/dL) (70-110) mg/dL Plasma Lactic Acid Willam 2.8 H* (0.7-2.0) mmol/L Calcium (8.4-10.2) mg/dL Total Bilirubin (0.3-1.2) mg/dL Ammonia (<30) umol/L Total Protein (6.2-8.2) g/dL Microbiology - Last 24 Hours (Table) 10/16/23 16:40 Gram Stain - Final Abdomen Wound Culture - Final
--- NOTE | 2023-10-19 11:54 | P.PN ---
Subjective patient is seen for follow-up for acute kidney injury, hepatorenal syndrome. patient was transferred to the ICU due toUnresponsiveness. He was eventually intubated. Ammonia was elevated at 259. Lactic acid was elevated as well and patient is status post IV fluid bolus. He was started on bicarb drip yesterday. Urine output at about 20 ML per hour. Objective - Vital Signs Vital signs: Vital Signs Temp 98.0 F 10/19/23 08:00 Pulse 125 H 10/19/23 11:15 Resp 20 10/19/23 11:15 BP 176/91 10/19/23 11:15 Pulse Ox 97 10/19/23 11:15 FiO2 40 10/19/23 11:00 Intake & Output 10/18/23 10/19/23 10/19/23 18:59 06:59 18:59 Intake Total 344.831 Output Total 1389 490 50 Balance -1389 -490 294.831 Weight 80.5 kg Intake: IV 340 Albumin Human 25% 50 ml @ 100 50 mls/hr IV DAILY IRINA Rx#:[id number] Dextrose 5% in Water 1, 240 000 ml @ 80 mls/hr IV . [id number] IRINA with Sodium Bicarb (1 Meq/ml) 150 ml Rx#:[id number] Intake, IV Titration 4.831 Amount propofoL 1,000 mg In 4.831 Empty Bag 1 bag @ 15 MCG/ KG/MIN 7.245 mls/hr IV . [id number] IRINA Rx#:[id number] Output: Drainage 35 190 Lower Abdomen 35 190 Urine 850 300 50 Uretheral (Epps) 600 Post Void Residual 504 Other: # Bowel Movements 1 ABP, PAP, CO, CI - Last Documented Arterial Blood Pressure 118/58 - Exam Patient is sedated and on the vent Examination of the heart S1 and S2 Examination of the lungs bilateral breath sounds are heard Abdomen is soft , incision is dressed Examination of lower extremities shows no significant edema [employer]AUR[employer]IN[employer]GER exam cannot be performed - Labs CBC & Chem 7: 10/19/23 05:20 10/19/23 05:20 Labs: Abnormal Lab Results - Last 24 Hours (Table) 10/18/23 10/18/23 10/18/23 Range/Units 14:14 21:21 21:21 WBC 11.0 H (3.8-10.6) k/uL RBC 2.75 L (4.30-5.90) m/uL Hgb 7.4 L (13.0-17.5) gm/dL Hct 23.4 L (39.0-53.0) % MCH (27.0-32.0) pg MCHC (31.0-37.0) g/dL RDW 19.0 H (11.5-15.5) % Plt Count 104 L (150-450) k/uL NRBC/100 WBC Diff (0.00-0.01) X 10*3/uL PT (10.0-12.5) sec INR (<1.2) ABG pH (7.35-7.45) ABG pCO2 (35-45) mmHg ABG pO2 (83-108) mmHg ABG HCO3 (21-25) mmol/L ABG Total CO2 (19-24) mmol/L ABG O2 Saturation (94-97) % Sodium 134 L (137-145) mmol/L Chloride 108 H (98-107) mmol/L Carbon Dioxide 13 L (22-30) mmol/L Anion Gap (4.00-12.00) mmol/L BUN 66 H (9-20) mg/dL Creatinine 3.00 H (0.66-1.25) mg/dL Est GFR (CKD-EPI) (>=60) BUN/Creatinine Ratio (12.00-20.00) Ratio Glucose 104 H (74-99) mg/dL POC Glucose (mg/dL) (70-110) mg/dL Plasma Lactic Acid Willam 2.4 H* (0.7-2.0) mmol/L Calcium 7.8 L (8.4-10.2) mg/dL Total Bilirubin (0.3-1.2) mg/dL Ammonia 157 H (<30) umol/L Total Protein (6.2-8.2) g/dL 10/18/23 10/19/23 10/19/23 Range/Units 22:28 01:01 01:01 WBC 15.8 H (3.8-10.6) k/uL RBC 3.16 L (4.30-5.90) m/uL Hgb 8.3 L (13.0-17.5) gm/dL Hct 27.0 L (39.0-53.0) % MCH (27.0-32.0) pg MCHC 30.6 L (31.0-37.0) g/dL RDW 19.2 H (11.5-15.5) % Plt Count 134 L (150-450) k/uL NRBC/100 WBC Diff (0.00-0.01) X 10*3/uL PT (10.0-12.5) sec INR (<1.2) ABG pH (7.35-7.45) ABG pCO2 24 L (35-45) mmHg ABG pO2 70 L (83-108) mmHg ABG HCO3 17 L (21-25) mmol/L ABG Total CO2 17 L (19-24) mmol/L ABG O2 Saturation (94-97) % Sodium (137-145) mmol/L Chloride (98-107) mmol/L Carbon Dioxide (22-30) mmol/L Anion Gap (4.00-12.00) mmol/L BUN (9-20) mg/dL Creatinine (0.66-1.25) mg/dL Est GFR (CKD-EPI) (>=60) BUN/Creatinine Ratio (12.00-20.00) Ratio Glucose (74-99) mg/dL POC Glucose (mg/dL) (70-110) mg/dL Plasma Lactic Acid Willam 3.2 H* (0.7-2.0) mmol/L Calcium (8.4-10.2) mg/dL Total Bilirubin (0.3-1.2) mg/dL Ammonia (<30) umol/L Total Protein (6.2-8.2) g/dL 10/19/23 10/19/23 10/19/23 Range/Units 05:20 05:20 05:20 WBC 18.86 H (3.8-10.6) k/uL RBC 3.17 L (4.30-5.90) m/uL Hgb 8.3 L (13.0-17.5) gm/dL Hct 26.3 L (39.0-53.0) % MCH 26.2 L (27.0-32.0) pg MCHC 31.6 L (31.0-37.0) g/dL RDW 19.4 H (11.5-15.5) % Plt Count (150-450) k/uL NRBC/100 WBC Diff 0.04 H (0.00-0.01) X 10*3/uL PT (10.0-12.5) sec INR (<1.2) ABG pH (7.35-7.45) ABG pCO2 (35-45) mmHg ABG pO2 (83-108) mmHg ABG HCO3 (21-25) mmol/L ABG Total CO2 (19-24) mmol/L ABG O2 Saturation (94-97) % Sodium (137-145) mmol/L Chloride (98-107) mmol/L Carbon Dioxide 14.0 L (22-30) mmol/L Anion Gap 17.00 H (4.00-12.00) mmol/L BUN 69.6 H (9-20) mg/dL Creatinine 3.0 H (0.66-1.25) mg/dL Est GFR (CKD-EPI) 26 L (>=60) BUN/Creatinine Ratio 23.20 H (12.00-20.00) Ratio Glucose 126 H (74-99) mg/dL POC Glucose (mg/dL) (70-110) mg/dL Plasma Lactic Acid Willam (0.7-2.0) mmol/L Calcium 8.1 L (8.4-10.2) mg/dL Total Bilirubin 1.5 H (0.3-1.2) mg/dL Ammonia 259 H (<30) umol/L Total Protein 6.0 L (6.2-8.2) g/dL 10/19/23 10/19/23 10/19/23 Range/Units 05:20 07:20 08:21 WBC (3.8-10.6) k/uL RBC (4.30-5.90) m/uL Hgb (13.0-17.5) gm/dL Hct (39.0-53.0) % MCH (27.0-32.0) pg MCHC (31.0-37.0) g/dL RDW (11.5-15.5) % Plt Count (150-450) k/uL NRBC/100 WBC Diff (0.00-0.01) X 10*3/uL PT (10.0-12.5) sec INR (<1.2) ABG pH (7.35-7.45) ABG pCO2 27 L (35-45) mmHg ABG pO2 40 L* (83-108) mmHg ABG HCO3 17 L (21-25) mmol/L ABG Total CO2 18 L (19-24) mmol/L ABG O2 Saturation 72.8 L (94-97) % Sodium (137-145) mmol/L Chloride (98-107) mmol/L Carbon Dioxide (22-30) mmol/L Anion Gap (4.00-12.00) mmol/L BUN (9-20) mg/dL Creatinine (0.66-1.25) mg/dL Est GFR (CKD-EPI) (>=60) BUN/Creatinine Ratio (12.00-20.00) Ratio Glucose (74-99) mg/dL POC Glucose (mg/dL) 127 H (70-110) mg/dL Plasma Lactic Acid Willam 4.6 H* (0.7-2.0) mmol/L Calcium (8.4-10.2) mg/dL Total Bilirubin (0.3-1.2) mg/dL Ammonia (<30) umol/L Total Protein (6.2-8.2) g/dL 10/19/23 10/19/23 10/19/23 Range/Units 08:51 08:51 10:49 WBC (3.8-10.6) k/uL RBC (4.30-5.90) m/uL Hgb (13.0-17.5) gm/dL Hct (39.0-53.0) % MCH (27.0-32.0) pg MCHC (31.0-37.0) g/dL RDW (11.5-15.5) % Plt Count (150-450) k/uL NRBC/100 WBC Diff (0.00-0.01) X 10*3/uL PT 15.8 H (10.0-12.5) sec INR 1.5 H (<1.2) ABG pH 7.26 L (7.35-7.45) ABG pCO2 (35-45) mmHg ABG pO2 393 H (83-108) mmHg ABG HCO3 18 L (21-25) mmol/L ABG Total CO2 (19-24) mmol/L ABG O2 Saturation 100.6 H (94-97) % Sodium (137-145) mmol/L Chloride (98-107) mmol/L Carbon Dioxide (22-30) mmol/L Anion Gap (4.00-12.00) mmol/L BUN (9-20) mg/dL Creatinine (0.66-1.25) mg/dL Est GFR (CKD-EPI) (>=60) BUN/Creatinine Ratio (12.00-20.00) Ratio Glucose (74-99) mg/dL POC Glucose (mg/dL) (70-110) mg/dL Plasma Lactic Acid Willam 2.8 H* (0.7-2.0) mmol/L Calcium (8.4-10.2) mg/dL Total Bilirubin (0.3-1.2) mg/dL Ammonia (<30) umol/L Total Protein (6.2-8.2) g/dL Microbiology - Last 24 Hours (Table) 10/16/23 16:40 Gram Stain - Final Abdomen Wound Culture - Final Assessment and Plan Assessment: 1. Acute kidney injury, ATN from hypotension versus hepatorenal syndrome. Maintained on midodrine, Sandostatin and has been receiving albumin. No evidence of obstruction on computed tomography scan on 09/04/2023. 2. Non- gap metabolic acidosis associated with acute kidney injury. 3. Mild hyperkalemia associated with acute kidney injury and metabolic acidosis, improved 4. History of EtOH-related liver cirrhosis. 5. Status post open repair of incarcerated umbilical hernia and umbilectomy on 10/16/2023. 6. Anemia and with no active bleeding noted. Check iron profile 7. Hepatic encephalopathy with serum ammonia at 259 8. Acute hypoxic respiratory failure, currently on the vent Plan: continue with IV bicarb. Continue with midodrine and Sandostatin along with albumin. repeat IV fluid bolus 1. Monitor urine output closely. Repeat labs in a.m. Avoid nephrotoxic agents. continue with lactulose
--- NOTE | 2023-10-19 12:39 | P.CNPUL ---
History of Present Illness Consult date: 10/19/23 Requesting physician: Vel Hair Reason for consult: other Chief complaint: Respiratory failure. History of present illness: Pulmonary consult dated October 19, 2023. 44-year-old male who presented to the emergency department, on October 15, complaining of abdominal pain. The patient has a history of chronic liver disease from alcohol abuse, with cirrhosis and ascites, and need for periodic pa racentesis abdominis. The patient has a known history of a umbilical hernia, which she is able to typically reduce, but because he was not able to reduce it, he came in to be evaluated. The patient ended up having surgery, last Thursday, on the , and initially was doing okay. This morning I was called by the surgeon, and my charge nurse in the intensive care unit, to say that the patient was doing poorly, and should be transferred down to the intensive care unit for further monitoring and management. The patient was very lethargic, and looked very unstable, with impending respiratory failure. When I first saw the patient he was on room air, and receiving an IV with 3 ampoules of sodium bicarb in D5W at 80 cc an hour. I asked for stat blood gas, when the patient came to the intensive care unit. His pO2 was 40, pCO2 27, pH is 7.41. After evaluating the patient, I decided to intubate the patient which we did, and place a central line and arterial line, both of which we did. Current laboratory data includes a blood gas showing a pO2 of 393, pCO2 41, pH is 7.26. Saturations are 100%. White count is 18.9, hemoglobin 8.3, hematocrit 26.3, and a platelet count of 156,000. Sodium 137, potassium 4.5, chlorides 106, CO2 14, anion gap 17, BUN 69.6, and creatinine 3. Glucose was 126. Lactic acid was 2.8. Bilirubin was 1.5. Ammonia level was up to 259. Cultures of the ascitic fluid are thus far negative. Chest x-ray shows endotracheal tube to be in good position. Central line is in good position, without complication. Review of Systems REVIEW OF SYSTEMS: CONSTITUTIONAL: [Negative.] NEUROLOGIC: [ Negative.] HEENT: [ Negative.] CARDIAC: [Negative.] PULMONARY: [Negative.] GI: Abdominal pain initially. : [Negative.] RHEUMATOLOGIC: [ Negative.] IMMUNOLOGIC: [ Negative.] ENDOCRINE: [Negative. ] DERMATOLOGIC: [Negative.] Past Medical History Past Medical History: Hyperlipidemia, Hypertension, Liver Disease, Pneumonia Additional Past Medical History / Comment(s): Alcoholism, past withdrawals with tremors/diaphoresis, elevated LFTs, alcoholic liver cirrhosis follows with Liver specialist based out of [place], ascities with lg volume paracentesis, severe sepsis/aspiration pneumonia, occasional upper back pain. 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 Smoking Status: Current every day smoker Past Alcohol Use History: None Reported, Abuse Additional Past Alcohol Use History / Comment(s): Pt started smoking in 2000 and a pack' and quit 2021. Pt has hx of alcoholism. He states he quit drinking in Apr 2022 Past Drug Use History: None Reported - Past Family History Mother Family Medical History: Cancer Additional Family Medical History / Comment(s): Mother has colon cancer. Father History Unknown: Yes Additional Family Medical History / Comment(s): All pt knows about his father is that he is . Medications and Allergies Home Medications Medication Instructions Recorded Confirmed Type Furosemide [Lasix] 40 mg PO DAILY #30 tablet 03/02/23 10/16/23 Rx HYDROcodone/APAP 5-325MG [Gifford 1 - 2 tab PO Q4HR PRN 05/06/23 10/16/23 History 5-325] Midodrine HCl [ProAmatine] 10 mg PO TID 05/06/23 10/16/23 History Pantoprazole [Protonix] 40 mg PO DAILY 05/06/23 10/16/23 History Spironolactone [Aldactone] 25 mg PO BID #60 tab 05/14/23 10/16/23 Rx Allergies Allergy/AdvReac Type Severity Reaction Status Date / Time ibuprofen [From Motrin] Allergy Swelling Verified 10/16/23 14:20 Lips naproxen Allergy Swelling Verified 10/16/23 14:20 Lips Physical Exam Osteopathic Statement: *. No significant issues noted on an osteopathic s tructural exam other than those noted in the History and Physical/Consult. Vitals: Vital Signs Temp Pulse Pulse Resp BP BP BP 10/19/23 12:01 10/19/23 12:00 10/19/23 11:15 125 H 20 176/91 10/19/23 11:00 128 H 19 163/81 10/19/23 10:45 126 H 32 H 150/75 10/19/23 10:43 10/19/23 10:30 121 H 16 127/77 10/19/23 10:17 10/19/23 10:15 126 H 15 136/64 10/19/23 10:00 120 H 25 H 162/74 10/19/23 09:45 154 H 23 153/79 10/19/23 09:30 27 H 133/77 10/19/23 09:15 129 H 26 H 157/70 10/19/23 09:00 116 H 25 H 143/76 10/19/23 08:45 125 H 20 136/74 10/19/23 08:30 122 H 23 138/76 10/19/23 08:15 120 H 21 123/67 10/19/23 08:00 98.0 F 113 H 23 145/78 10/19/23 07:45 123 H 14 138/78 10/19/23 07:30 124 H 17 113/85 10/19/23 07:19 126 H 141/76 10/19/23 06:56 123 H 20 136/83 10/19/23 06:30 97.8 F 119 H 20 124/71 10/19/23 05:01 98.6 F 110 H 18 132/73 10/19/23 04:21 98.8 F 110 H 17 118/78 10/19/23 00:14 98.5 F 99 19 139/67 10/18/23 22:30 98.5 F 90 18 107/63 10/18/23 21:26 67 16 10/18/23 19:28 97.5 F L 67 16 100/65 10/18/23 14:00 98.2 F 73 15 104/63 Pulse Ox FiO2 10/19/23 12:01 40 10/19/23 12:00 40 10/19/23 11:15 97 10/19/23 11:00 97 40 10/19/23 10:45 100 10/19/23 10:43 100 10/19/23 10:30 99 100 10/19/23 10:17 100 10/19/23 10:15 100 10/19/23 10:00 99 10/19/23 09:45 99 10/19/23 09:30 99 10/19/23 09:15 100 10/19/23 09:00 99 10/19/23 08:45 99 10/19/23 08:30 99 10/19/23 08:15 97 10/19/23 08:00 95 10/19/23 07:45 96 10/19/23 07:30 97 10/19/23 07:19 96 10/19/23 06:56 100 10/19/23 06:30 100 10/19/23 05:01 95 10/19/23 04:21 95 10/19/23 00:14 99 10/18/23 22:30 97 10/18/23 21:26 10/18/23 19:28 98 10/18/23 14:00 97 Intake and Output 10/18/23 10/19/23 10/19/23 22:59 06:59 14:59 Intake Total 353.284 Output Total 700 490 50 Balance -700 -490 303.284 Intake: IV 340 Albumin Human 25% 50 ml @ 100 50 mls/hr IV DAILY IRINA Rx#:[id number] Dextrose 5% in Water 1, 240 000 ml @ 80 mls/hr IV . [id number] IRINA with Sodium Bicarb (1 Meq/ml) 150 ml Rx#:[id number] Intake, IV Titration 13.284 Amount propofoL 1,000 mg In 13.284 Empty Bag 1 bag @ 15 MCG/ KG/MIN 7.245 mls/hr IV . [id number] IRINA Rx#:[id number] Output: Drainage 190 Lower Abdomen 190 Urine 700 300 50 Uretheral (Epps) 600 Other: # Bowel Movements 1 Weight 80.5 kg ABP, PAP, CO, CI - Last 8 Hours Arterial Blood Pressure 118/58 Arterial Blood Pressure 136/81 Moderate distress, not oriented, likely unable to protect his airway. Patient is jaundiced. HEENT examination is grossly unremarkable. Mucous membranes are dry. Teeth are in very poor repair. Neck supple. Full range of motion. No adenopathy thyromegaly or neck vein distention. Cardiovascular examination reveals regular rhythm rate. S1-S2 normal. No S3 or S4. No discernible murmur noted. Heart rate 92 bpm. Lungs reveal scattered crackles and rhonchi. No wheezes. Breath sounds equal. Abdomen soft, without bowel sounds. No masses. Extremities are intact. No cyanosis clubbing or edema. Skin is jaundiced. Neurologic examination cannot be assessed at this time. Results - Laboratory Findings CBC and BMP: 10/19/23 05:20 10/19/23 05:20 ABG ABG pH 7.26 (7.35-7.45) L 10/19/23 10:49 ABG pCO2 41 mmHg (35-45) 10/19/23 10:49 ABG pO2 393 mmHg (83-108) H 10/19/23 10:49 ABG O2 Saturation 100.6 % (94-97) H 10/19/23 10:49 PT/INR, D-dimer PT 15.8 sec (10.0-12.5) H 10/19/23 08:51 INR 1.5 (<1.2) H 10/19/23 08:51 Abnormal lab findings: Abnormal Labs 10/16/23 10/16/23 10/16/23 06:57 06:57 08:31 WBC RBC 3.06 L Hgb 7.9 L Hct 26.1 L MCH MCHC 30.1 L RDW 18.6 H Plt Count 98 L Lymphocytes # 0.8 L NRBC/100 WBC Diff PT 14.7 H INR 1.4 H ABG pH ABG pCO2 ABG pO2 ABG HCO3 ABG Total CO2 ABG O2 Saturation Sodium 133 L Potassium Chloride 110 H Carbon Dioxide 13 L Anion Gap BUN 35 H Creatinine 1.65 H Est GFR (CKD-EPI) BUN/Creatinine Ratio Glucose 119 H POC Glucose (mg/dL) Plasma Lactic Acid Willam Calcium Total Bilirubin Ammonia Total Protein Albumin 10/17/23 10/17/23 10/18/23 06:42 06:42 04:39 WBC 16.40 H RBC 2.80 L 2.88 L Hgb 7.5 L 7.5 L Hct 24.9 L 24.0 L MCH 26.0 L MCHC 30.1 L 31.3 L RDW 18.5 H 18.8 H Plt Count 81 L 138 L Lymphocytes # 0.6 L NRBC/100 WBC Diff PT INR ABG pH ABG pCO2 ABG pO2 ABG HCO3 ABG Total CO2 ABG O2 Saturation Sodium 131 L Potassium 5.4 H Chloride 111 H Carbon Dioxide 14 L Anion Gap BUN 43 H Creatinine 2.02 H Est GFR (CKD-EPI) BUN/Creatinine Ratio Glucose 121 H POC Glucose (mg/dL) Plasma Lactic Acid Willam Calcium Total Bilirubin Ammonia Total Protein 5.8 L Albumin 3.3 L 10/18/23 10/18/23 10/18/23 04:39 14:14 21:21 WBC 11.0 H RBC 2.75 L Hgb 7.4 L Hct 23.4 L MCH MCHC RDW 19.0 H Plt Count 104 L Lymphocytes # NRBC/100 WBC Diff PT INR ABG pH ABG pCO2 ABG pO2 ABG HCO3 ABG Total CO2 ABG O2 Saturation Sodium 132 L 134 L Potassium Chloride 108 H Carbon Dioxide 15.0 L 13 L Anion Gap 15.00 H BUN 60.5 H 66 H Creatinine 3.3 H 3.00 H Est GFR (CKD-EPI) 23 L BUN/Creatinine Ratio Glucose 177 H 104 H POC Glucose (mg/dL) Plasma Lactic Acid Willam Calcium 7.6 L 7.8 L Total Bilirubin Ammonia Total Protein 5.7 L Albumin 10/18/23 10/18/23 10/19/23 21:21 22:28 01:01 WBC RBC Hgb Hct MCH MCHC RDW Plt Count Lymphocytes # NRBC/100 WBC Diff PT INR ABG pH ABG pCO2 24 L ABG pO2 70 L ABG HCO3 17 L ABG Total CO2 17 L ABG O2 Saturation Sodium Potassium Chloride Carbon Dioxide Anion Gap BUN Creatinine Est GFR (CKD-EPI) BUN/Creatinine Ratio Glucose POC Glucose (mg/dL) Plasma Lactic Acid Willam 2.4 H* 3.2 H* Calcium Total Bilirubin Ammonia 157 H Total Protein Albumin 10/19/23 10/19/23 10/19/23 01:01 05:20 05:20 WBC 15.8 H 18.86 H RBC 3.16 L 3.17 L Hgb 8.3 L 8.3 L Hct 27.0 L 26.3 L MCH 26.2 L MCHC 30.6 L 31.6 L RDW 19.2 H 19.4 H Plt Count 134 L Lymphocytes # NRBC/100 WBC Diff 0.04 H PT INR ABG pH ABG pCO2 ABG pO2 ABG HCO3 ABG Total CO2 ABG O2 Saturation Sodium Potassium Chloride Carbon Dioxide 14.0 L Anion Gap 17.00 H BUN 69.6 H Creatinine 3.0 H Est GFR (CKD-EPI) 26 L BUN/Creatinine Ratio 23.20 H Glucose 126 H POC Glucose (mg/dL) Plasma Lactic Acid Willam Calcium 8.1 L Total Bilirubin 1.5 H Ammonia Total Protein 6.0 L Albumin 10/19/23 10/19/23 10/19/23 05:20 05:20 07:20 WBC RBC Hgb Hct MCH MCHC RDW Plt Count Lymphocytes # NRBC/100 WBC Diff PT INR ABG pH ABG pCO2 ABG pO2 ABG HCO3 ABG Total CO2 ABG O2 Saturation Sodium Potassium Chloride Carbon Dioxide Anion Gap BUN Creatinine Est GFR (CKD-EPI) BUN/Creatinine Ratio Glucose POC Glucose (mg/dL) 127 H Plasma Lactic Acid Willam 4.6 H* Calcium Total Bilirubin Ammonia 259 H Total Protein Albumin 10/19/23 10/19/23 10/19/23 08:21 08:51 08:51 WBC RBC Hgb Hct MCH MCHC RDW Plt Count Lymphocytes # NRBC/100 WBC Diff PT 15.8 H INR 1.5 H ABG pH ABG pCO2 27 L ABG pO2 40 L* ABG HCO3 17 L ABG Total CO2 18 L ABG O2 Saturation 72.8 L Sodium Potassium Chloride Carbon Dioxide Anion Gap BUN Creatinine Est GFR (CKD-EPI) BUN/Creatinine Ratio Glucose POC Glucose (mg/dL) Plasma Lactic Acid Willam 2.8 H* Calcium Total Bilirubin Ammonia Total Protein Albumin 10/19/23 10:49 WBC RBC Hgb Hct MCH MCHC RDW Plt Count Lymphocytes # NRBC/100 WBC Diff PT INR ABG pH 7.26 L ABG pCO2 ABG pO2 393 H ABG HCO3 18 L ABG Total CO2 ABG O2 Saturation 100.6 H Sodium Potassium Chloride Carbon Dioxide Anion Gap BUN Creatinine Est GFR (CKD-EPI) BUN/Creatinine Ratio Glucose POC Glucose (mg/dL) Plasma Lactic Acid Willam Calcium Total Bilirubin Ammonia Total Protein Albumin - Diagnostic Findings Chest x-ray: image reviewed Assessment and Plan Assessment: S/P intubation and mechanical ventilation for impending respiratory failure, secondary to fulminant liver failure, October 19, 2023. Postop day #3, S/P repair of incarcerated umbilical hernia. Chronic liver disease/cirrhosis, and ascites, secondary to previous significant alcohol abuse. Anion gap metabolic acidosis. Chronic kidney disease, rule out hepatorenal syndrome. Severe hyperammonemia. Lactic acidosis. History of hyperlipidemia. History of hypertension. History of liver cirrhosis. Recurrent ascites, status post frequent paracentesis abdominis. History of depression and PTSD. History of chronic tobacco use. Anemia of chronic disease. Plan: Plan dated October 19, 2023. The patient was transferred down to the intensive care unit, where he was evaluated. The patient is electively intubated, and we also placed a left subclavian triple-lumen catheter, and a right radial art line, for better monitoring and management. Labs, x-rays, medications are reviewed. The patient is initially placed on vent settings of volume assist-control, rate 20, tidal volume 400, FiO2 100%, PEEP of 5. Additional recommendations and suggestions are forthcoming. The medication list is reviewed. Unnecessary medications were discontinued. I did speak to the surgeon about this patient. If the patient shows further deterioration, will attempt to transfer the patient to a facility that deals in patients with severe liver disease. Time with Patient: Greater than 30
[2023-10-19] MEDS: CHLORHEXIDINE GLUCONATE 15 ML CUP MUCOUS MEM SCH (14:15)
--- NOTE | 2023-10-19 14:55 | P.PN ---
Subjective Progress Note Date: 10/19/23 CHIEF COMPLAINT: Incarcerated umbilical hernia HISTORY OF PRESENT ILLNESS: Postop day #3 status post open repair of incarcerated umbilical hernia, umbillectomy. Patient is in the ICU. He had labored breathing and was essentially nonresponsive except pain. Patient has been placed on mechanical ventilation. Ammonia level is elevated to 59. Afebrile. WBC is up from 11-15.8 lactic acid elevated at 4.6. Total bili 1.5. He did have a bedside sitter. Afebrile. PHYSICAL EXAM: VITAL SIGNS: Reviewed. GENERAL: short of breath, unresponsive except to pain ABDOMEN: Soft. Mildly distended. Tender incision site. Prevena wound vac in tact. CHRIS drain 190 mL serosanguineous output ASSESSMENT: 1. Incarcerated umbilical hernia status post repair 2. Respiratory failure requiring mechanical ventilation 3. Elevated ammonia level 4. Chronic liver disease and liver cirrhosis with prior alcohol abuse PLAN: -Continue ICU management -Continue supportive care -Vent management per critical care service -Patient may require transfer to a tertiary care center -Continue to monitor Physician Traverse Rod Assembler note has been reviewed by physician. Signing provider agrees with the documented findings, assessment, and plan of care. I have personally seen and examined the patient, reviewed the RECREATION ADVISER /PAs history, exam and MDM and agree with the assessment and plan as written. Based on total visit time, I have performed more than 50% of the visit. As above: Patient with increased confusion and tachycardia this morning. Was transferred to the ICU. Lab work shows significant increase in ammonia level. WBC also significantly increased. Some bloody drainage from his CHRIS drain earlier today which has mostly stopped. Spoke with intensive care team. Patient was placed on the ventilator and arterial line was placed. No need for pressors yet. Etiology unclear could be on the basis of worsening hepatic function. Cultures from peritoneal fluid negative thus far. Continue antibiotics. Will follow. Objective - Vital Signs Vital signs: Vital Signs Temp 97.8 F 10/19/23 12:00 Pulse 71 10/19/23 13:30 Resp 20 10/19/23 13:30 BP 107/52 10/19/23 13:00 Pulse Ox 100 10/19/23 13:30 FiO2 40 10/19/23 12:01 Intake & Output 10/18/23 10/19/23 10/19/23 18:59 06:59 18:59 Intake Total 1622.693 Output Total 1389 490 90 Balance -1389 -490 1532.693 Weight 80.5 kg Intake: IV 1550 Albumin Human 25% 50 ml @ 100 50 mls/hr IV DAILY IRINA Rx#:[id number] Dextrose 5% in Water 1, 400 000 ml @ 80 mls/hr IV . [id number] IRINA with Sodium Bicarb (1 Meq/ml) 150 ml Rx#:[id number] Sodium Chloride 0.9% 1, 1000 000 ml @ 999 mls/hr IV . Q1H1M ONE Rx#:[id number] cefTRIAXone 2 gm In 50 Sodium Chloride 0.9% 50 ml @ 100 mls/hr IVPB Q24HR IRINA Rx#:[id number] Intake, IV Titration 72.693 Amount propofoL 1,000 mg In 72.693 Empty Bag 1 bag @ 15 MCG/ KG/MIN 7.245 mls/hr IV . [id number] IRINA Rx#:[id number] Output: Drainage 35 190 Lower Abdomen 35 190 Urine 850 300 90 Uretheral (Epps) 600 Post Void Residual 504 Other: Voiding Method Indwelling Catheter # Bowel Movements 1 ABP, PAP, CO, CI - Last Documented Arterial Blood Pressure 109/40 - Labs CBC & Chem 7: 10/19/23 05:20 10/19/23 05:20 Labs: Abnormal Lab Results - Last 24 Hours (Table) 10/18/23 10/18/23 10/18/23 Range/Units 21:21 21:21 22:28 WBC (3.8-10.6) k/uL RBC (4.30-5.90) m/uL Hgb (13.0-17.5) gm/dL Hct (39.0-53.0) % MCH (27.0-32.0) pg MCHC (31.0-37.0) g/dL RDW (11.5-15.5) % Plt Count (150-450) k/uL NRBC/100 WBC Diff (0.00-0.01) X 10*3/uL PT (10.0-12.5) sec INR (<1.2) ABG pH (7.35-7.45) ABG pCO2 24 L (35-45) mmHg ABG pO2 70 L (83-108) mmHg ABG HCO3 17 L (21-25) mmol/L ABG Total CO2 17 L (19-24) mmol/L ABG O2 Saturation (94-97) % Sodium 134 L (137-145) mmol/L Chloride 108 H (98-107) mmol/L Carbon Dioxide 13 L (22-30) mmol/L Anion Gap (4.00-12.00) mmol/L BUN 66 H (9-20) mg/dL Creatinine 3.00 H (0.66-1.25) mg/dL Est GFR (CKD-EPI) (>=60) BUN/Creatinine Ratio (12.00-20.00) Ratio Glucose 104 H (74-99) mg/dL POC Glucose (mg/dL) (70-110) mg/dL Plasma Lactic Acid Willam 2.4 H* (0.7-2.0) mmol/L Calcium 7.8 L (8.4-10.2) mg/dL Total Bilirubin (0.3-1.2) mg/dL Ammonia 157 H (<30) umol/L Total Protein (6.2-8.2) g/dL 10/19/23 10/19/23 10/19/23 Range/Units 01:01 01:01 05:20 WBC 15.8 H 18.86 H (3.8-10.6) k/uL RBC 3.16 L 3.17 L (4.30-5.90) m/uL Hgb 8.3 L 8.3 L (13.0-17.5) gm/dL Hct 27.0 L 26.3 L (39.0-53.0) % MCH 26.2 L (27.0-32.0) pg MCHC 30.6 L 31.6 L (31.0-37.0) g/dL RDW 19.2 H 19.4 H (11.5-15.5) % Plt Count 134 L (150-450) k/uL NRBC/100 WBC Diff 0.04 H (0.00-0.01) X 10*3/uL PT (10.0-12.5) sec INR (<1.2) ABG pH (7.35-7.45) ABG pCO2 (35-45) mmHg ABG pO2 (83-108) mmHg ABG HCO3 (21-25) mmol/L ABG Total CO2 (19-24) mmol/L ABG O2 Saturation (94-97) % Sodium (137-145) mmol/L Chloride (98-107) mmol/L Carbon Dioxide (22-30) mmol/L Anion Gap (4.00-12.00) mmol/L BUN (9-20) mg/dL Creatinine (0.66-1.25) mg/dL Est GFR (CKD-EPI) (>=60) BUN/Creatinine Ratio (12.00-20.00) Ratio Glucose (74-99) mg/dL POC Glucose (mg/dL) (70-110) mg/dL Plasma Lactic Acid Willam 3.2 H* (0.7-2.0) mmol/L Calcium (8.4-10.2) mg/dL Total Bilirubin (0.3-1.2) mg/dL Ammonia (<30) umol/L Total Protein (6.2-8.2) g/dL 10/19/23 10/19/23 10/19/23 Range/Units 05:20 05:20 05:20 WBC (3.8-10.6) k/uL RBC (4.30-5.90) m/uL Hgb (13.0-17.5) gm/dL Hct (39.0-53.0) % MCH (27.0-32.0) pg MCHC (31.0-37.0) g/dL RDW (11.5-15.5) % Plt Count (150-450) k/uL NRBC/100 WBC Diff (0.00-0.01) X 10*3/uL PT (10.0-12.5) sec INR (<1.2) ABG pH (7.35-7.45) ABG pCO2 (35-45) mmHg ABG pO2 (83-108) mmHg ABG HCO3 (21-25) mmol/L ABG Total CO2 (19-24) mmol/L ABG O2 Saturation (94-97) % Sodium (137-145) mmol/L Chloride (98-107) mmol/L Carbon Dioxide 14.0 L (22-30) mmol/L Anion Gap 17.00 H (4.00-12.00) mmol/L BUN 69.6 H (9-20) mg/dL Creatinine 3.0 H (0.66-1.25) mg/dL Est GFR (CKD-EPI) 26 L (>=60) BUN/Creatinine Ratio 23.20 H (12.00-20.00) Ratio Glucose 126 H (74-99) mg/dL POC Glucose (mg/dL) (70-110) mg/dL Plasma Lactic Acid Willam 4.6 H* (0.7-2.0) mmol/L Calcium 8.1 L (8.4-10.2) mg/dL Total Bilirubin 1.5 H (0.3-1.2) mg/dL Ammonia 259 H (<30) umol/L Total Protein 6.0 L (6.2-8.2) g/dL 10/19/23 10/19/23 10/19/23 Range/Units 07:20 08:21 08:51 WBC (3.8-10.6) k/uL RBC (4.30-5.90) m/uL Hgb (13.0-17.5) gm/dL Hct (39.0-53.0) % MCH (27.0-32.0) pg MCHC (31.0-37.0) g/dL RDW (11.5-15.5) % Plt Count (150-450) k/uL NRBC/100 WBC Diff (0.00-0.01) X 10*3/uL PT 15.8 H (10.0-12.5) sec INR 1.5 H (<1.2) ABG pH (7.35-7.45) ABG pCO2 27 L (35-45) mmHg ABG pO2 40 L* (83-108) mmHg ABG HCO3 17 L (21-25) mmol/L ABG Total CO2 18 L (19-24) mmol/L ABG O2 Saturation 72.8 L (94-97) % Sodium (137-145) mmol/L Chloride (98-107) mmol/L Carbon Dioxide (22-30) mmol/L Anion Gap (4.00-12.00) mmol/L BUN (9-20) mg/dL Creatinine (0.66-1.25) mg/dL Est GFR (CKD-EPI) (>=60) BUN/Creatinine Ratio (12.00-20.00) Ratio Glucose (74-99) mg/dL POC Glucose (mg/dL) 127 H (70-110) mg/dL Plasma Lactic Acid Willam (0.7-2.0) mmol/L Calcium (8.4-10.2) mg/dL Total Bilirubin (0.3-1.2) mg/dL Ammonia (<30) umol/L Total Protein (6.2-8.2) g/dL 10/19/23 10/19/23 10/19/23 Range/Units 08:51 10:49 12:15 WBC (3.8-10.6) k/uL RBC (4.30-5.90) m/uL Hgb (13.0-17.5) gm/dL Hct (39.0-53.0) % MCH (27.0-32.0) pg MCHC (31.0-37.0) g/dL RDW (11.5-15.5) % Plt Count (150-450) k/uL NRBC/100 WBC Diff (0.00-0.01) X 10*3/uL PT (10.0-12.5) sec INR (<1.2) ABG pH 7.26 L (7.35-7.45) ABG pCO2 (35-45) mmHg ABG pO2 393 H (83-108) mmHg ABG HCO3 18 L (21-25) mmol/L ABG Total CO2 (19-24) mmol/L ABG O2 Saturation 100.6 H (94-97) % Sodium (137-145) mmol/L Chloride (98-107) mmol/L Carbon Dioxide (22-30) mmol/L Anion Gap (4.00-12.00) mmol/L BUN (9-20) mg/dL Creatinine (0.66-1.25) mg/dL Est GFR (CKD-EPI) (>=60) BUN/Creatinine Ratio (12.00-20.00) Ratio Glucose (74-99) mg/dL POC Glucose (mg/dL) (70-110) mg/dL Plasma Lactic Acid Willam 2.8 H* 2.3 H* (0.7-2.0) mmol/L Calcium (8.4-10.2) mg/dL Total Bilirubin (0.3-1.2) mg/dL Ammonia (<30) umol/L Total Protein (6.2-8.2) g/dL Microbiology - Last 24 Hours (Table) 10/16/23 16:40 Anaerobic Culture - Preliminary Abdomen 10/16/23 16:40 Gram Stain - Final Abdomen Wound Culture - Final
[2023-10-19] MEDS ORDERED: INSULIN ASPART (NovoLOG) 100 UNIT/ML VIAL SQ SCH (17:30)
[2023-10-19 18:22] LABS: Glucose,Whole Blood 189 mg/dL (70-110)
[2023-10-19] MEDS: LACTULOSE 20 GM/30 ML CUP PO SCH (19:45)
[2023-10-19] MEDS ORDERED: IPRATROPIUM-ALBUTEROL 3 ML NEB INHALATION PRN (22:07)
[2023-10-19] MEDS: NOREPINEPHRINE 4 MG in SODIUM CHLORIDE 0.9% 250 ML IV SCH (22:27)
[2023-10-19 23:53] LABS: Glucose,Whole Blood 131 mg/dL (70-110)
[2023-10-20] MEDS: IPRATROPIUM-ALBUTEROL 3 ML NEB INHALATION SCH (01:01)
--- NOTE | 2023-10-20 03:24 | CT ---
EXAM: CT Head Without Intravenous Contrast CLINICAL HISTORY: ITS.REASON CT Reason: AMS TECHNIQUE: Axial computed tomography images of the head/brain without intravenous contrast. CTDI is 49.2 mGy and DLP is 1197.4 mGy-cm. This CT exam was performed using one or more of the following dose reduction techniques: automated exposure control, adjustment of the mA and/or kV according to patient size, and/or use of iterative reconstruction technique. COMPARISON: No relevant prior studies available. FINDINGS: Brain: No hemorrhage or mass effect. Ventricles: No hydrocephalus. Bones/joints: Unremarkable. Soft tissues: Unremarkable. Sinuses: No air fluid level. Mastoid air cells: Clear. IMPRESSION: No acute hemorrhage, hydrocephalus, or mass effect.
[2023-10-20 04:14] LABS: Anisocytosis Slight; Hypochromasia Moderate; MCH 26.1 pg (25.0-35.0); MCHC 30.6 g/dL (31.0-37.0); MCV 85.4 fL (80.0-100.0); Mean Platelet Volume 9.3; Platelet Count 106 k/uL (150-450); RDW 19.7 % (11.5-15.5)
[2023-10-20 04:58] LABS: ALT 10 U/L (4-49); AST 26 U/L (17-59); African American GFR (CKD) 40 (>60 ml/min/1.73 sqM); Albumin 3.1 g/dL (3.5-5.0); Alkaline Phosphatase 51 U/L (38-126); Anion Gap 10 mmol/L; Blood Urea Nitrogen 63 mg/dL (9-20); Calcium 7.8 mg/dL (8.4-10.2); Carbon Dioxide 17 mmol/L (22-30); Chloride 111 mmol/L (98-107); Glucose 138 mg/dL (74-99); Magnesium 2.2 mg/dL (1.6-2.3); Non-African American GFR(CKD) 34 (>60 ml/min/1.73 sqM); Potassium 3.5 mmol/L (3.5-5.1); Sodium 138 mmol/L (137-145); Total Bilirubin 1.3 mg/dL (0.2-1.3); Total Protein 5.2 g/dL (6.3-8.2)
[2023-10-20 05:26] LABS: ABG Base Excess -3.3 mmol/L; ABG HCO3 20 mmol/L (21-25); ABG Oxygen Saturation 99.4 % (94-97); ABG PCO2 28 mmHg (35-45); ABG PH 7.46 (7.35-7.45); ABG PO2 108 mmHg (83-108); ABG TCO2 21 mmol/L (19-24); Allen Test Performed? Yes
[2023-10-20 05:51] LABS: Glucose,Whole Blood 160 mg/dL (70-110)
--- NOTE | 2023-10-20 08:55 | XR ---
EXAMINATION TYPE: XR chest 1V portable DATE OF EXAM: 10/20/2023 5:27 AM CLINICAL INDICATION:Male, 43 years old with history of Tube placement; [facility] COMPARISON: Chest radiographs from 10/19/2023 TECHNIQUE: XR chest 1V portable Frontal view of the chest. FINDINGS: Lungs/Pleura: There is no evidence of pleural effusion, focal consolidation, or pneumothorax. Pulmonary vascularity: Unremarkable. Heart/mediastinum: Cardiomediastinal silhouette is unremarkable. Musculoskeletal: No acute osseous pathology. Other findings: None Lines/Tubes: Endotracheal tube with distal tip 7.0 cm above the nathaniel. Nasogastric tube with its distal tip and side-port projecting under the diaphragm. IMPRESSION: Endotracheal tube 7.0 cm above the nathaniel consider advancement of 3 cm for optimal placement. Stable exam.
--- NOTE | 2023-10-20 11:06 | P.PN ---
Subjective Progress Note Date: 10/20/23 Principal diagnosis: Respiratory failure. Pulmonary consult dated October 19, 2023. 44-year-old male who presented to the emergency department, on October 15, complaining of abdominal pain. The patient has a history of chronic liver disease from alcohol abuse, with cirrhosis and ascites, and need for periodic paracentesis abdominis. The patient has a known history of a umbilical hernia, which she is able to typically reduce, but because he was not able to reduce it, he came in to be evaluated. The patient ended up having surgery, last Thursday, on the , and initially was doing okay. This morning I was called by the surgeon, and my charge nurse in the intensive care unit, to say that the patient was doing poorly, and should be transferred down to the intensive care unit for further monitoring and management. The patient was very lethargic, and looked very unstable, with impending respiratory failure. When I first saw the patient he was on room air, and receiving an IV with 3 ampoules of sodium bicarb in D5W at 80 cc an hour. I asked for stat blood gas, when the patient came to the intensive care unit. His pO2 was 40, pCO2 27, pH is 7.41. After evaluating the patient, I decided to intubate the patient which we did, and place a central line and arterial line, both of which we did. Current laboratory data includes a blood gas showing a pO2 of 393, pCO2 41, pH is 7.26. Saturations are 100%. White count is 18.9, hemoglobin 8.3, hematocrit 26.3, and a platelet count of 156,000. Sodium 137, potassium 4.5, chlorides 106, CO2 14, anion gap 17, BUN 69.6, and creatinine 3. Glucose was 126. Lactic acid was 2.8. Bilirubin was 1.5. Ammonia level was up to 259. Cultures of the ascitic fluid are thus far negative. Chest x-ray shows endotracheal tube to be in good position. Central line is in good position, without complication. Progress note dated October 20, 2023. The patient is seen today in room 263. The patient was intubated, and lined yesterday, for respiratory failure. The patient has a history of chronic liver disease, with cirrhosis, ascites, and encephalopathy. Currently, the patient is on volume assist-control, rate 20, tidal volume 400, FiO2 40%, PEEP of 5. Blood gases show pO2 108, pCO2 28, pH is 7.46. This blood gases consistent with a mild respiratory alkalosis. The patient is getting D5W with 3 ampoules of sodium bicarbonate at 80 cc an hour. The patient is getting norepinephrine at 3 mcg/min, propofol at 50 mcg/kg/min. The patient has been having tremor-like activity, and could be seizing. The brain CT was negative. The patient will have tube feedings beginning today. We have ordered an EEG. In addition, I have asked the nurse to give the patient 2 mg of Ativan, to see if the tremors cease. White count is 13, hemoglobin 7, hematocrit 23, platelet count 106,000. Sodium 138, potassium 3.5, chlorides 111, CO2 17, anion gap 10, BUN 63, creatinine 2.27. Glucose is 160. Ammonia level is down to 49. Albumin is 3.1. Thus far, cultures are negative. The patient's chest x-ray shows the endotracheal tube to be high in the trachea, and have asked respiratory therapy to push it down to 1.5 cm. Objective - Vital Signs Vital signs: Vital Signs Temp 98.0 F 10/20/23 08:00 Pulse 72 10/20/23 10:45 Resp 22 10/20/23 10:45 BP 112/58 10/20/23 10:00 Pulse Ox 98 10/20/23 10:45 FiO2 40 10/20/23 08:53 Intake & Output 10/19/23 10/20/23 10/20/23 18:59 06:59 18:59 Intake Total 2116.033 1254.098 677.455 Output Total 290 1040 190 Balance 1826.033 214.098 487.455 Weight 76.1 kg Intake: IV 1950 960 470 Albumin Human 25% 50 ml @ 100 100 50 mls/hr IV DAILY [facility] Rx#:[id number] Dextrose 5% in Water 1, 800 960 320 000 ml @ 80 mls/hr IV . [id number] [facility] with Sodium Bicarb (1 Meq/ml) 150 ml Rx#:[id number] Sodium Chloride 0.9% 1, 1000 000 ml @ 999 mls/hr IV . Q1H1M ONE Rx#:[id number] cefTRIAXone 2 gm In 50 50 Sodium Chloride 0.9% 50 ml @ 100 mls/hr IVPB Q24HR [facility] Rx#:[id number] Intake, IV Titration 166.033 294.098 157.455 Amount Norepinephrine 4 mg In 117.824 57.455 Sodium Chloride 0.9% 250 ml @ 0.03 MCG/KG/MIN 9. 201 mls/hr IV .Q24H [facility] Rx#:[id number] propofoL 1,000 mg In 166.033 176.274 100 Empty Bag 1 bag @ 15 MCG/ KG/MIN 7.245 mls/hr IV . [id number] [facility] Rx#:[id number] Other 50 Output: Gastric Drainage 300 Drainage 10 Lower Abdomen 10 Urine 290 430 190 Stool 300 Other: Voiding Method Indwelling Catheter Indwelling Catheter Indwelling Catheter ABP, PAP, CO, CI - Last Documented Arterial Blood Pressure 129/48 - Exam Sedated, with an orally placed endotracheal tube and NG tube noted. HEENT examination is grossly unremarkable. Mucous membranes are dry. Teeth are in very poor repair. Neck supple. Full range of motion. No adenopathy thyromegaly or neck vein distention. Cardiovascular examination reveals regular rhythm rate. S1-S2 normal. No S3 or S4. No discernible murmur noted. Heart rate 72 bpm. Lungs reveal scattered crackles and rhonchi. No wheezes. Breath sounds equal. Saturations are 98%. Abdomen soft, without bowel sounds. No masses. Extremities are intact. No cyanosis clubbing or edema. Skin is jaundiced. Neurologic examination cannot be assessed at this time. - Labs CBC & Chem 7: 10/20/23 04:00 10/20/23 04:00 Labs: Abnormal Lab Results - Last 24 Hours (Table) 10/19/23 10/19/23 10/19/23 Range/Units 12:15 18:19 23:52 WBC (3.8-10.6) k/uL RBC (4.30-5.90) m/uL Hgb (13.0-17.5) gm/dL Hct (39.0-53.0) % MCHC (31.0-37.0) g/dL RDW (11.5-15.5) % Plt Count (150-450) k/uL ABG pH (7.35-7.45) ABG pCO2 (35-45) mmHg ABG HCO3 (21-25) mmol/L ABG O2 Saturation (94-97) % Chloride (98-107) mmol/L Carbon Dioxide (22-30) mmol/L BUN (9-20) mg/dL Creatinine (0.66-1.25) mg/dL Glucose (74-99) mg/dL POC Glucose (mg/dL) 189 H 131 H (70-110) mg/dL Plasma Lactic Acid Willam 2.3 H* (0.7-2.0) mmol/L Calcium (8.4-10.2) mg/dL Ammonia (<30) umol/L Total Protein (6.3-8.2) g/dL Albumin (3.5-5.0) g/dL 10/20/23 10/20/23 10/20/23 Range/Units 04:00 04:00 04:00 WBC 13.0 H (3.8-10.6) k/uL RBC 2.70 L (4.30-5.90) m/uL Hgb 7.0 L (13.0-17.5) gm/dL Hct 23.0 L (39.0-53.0) % MCHC 30.6 L (31.0-37.0) g/dL RDW 19.7 H (11.5-15.5) % Plt Count 106 L (150-450) k/uL ABG pH (7.35-7.45) ABG pCO2 (35-45) mmHg ABG HCO3 (21-25) mmol/L ABG O2 Saturation (94-97) % Chloride 111 H (98-107) mmol/L Carbon Dioxide 17 L (22-30) mmol/L BUN 63 H (9-20) mg/dL Creatinine 2.27 H (0.66-1.25) mg/dL Glucose 138 H (74-99) mg/dL POC Glucose (mg/dL) (70-110) mg/dL Plasma Lactic Acid Willam (0.7-2.0) mmol/L Calcium 7.8 L (8.4-10.2) mg/dL Ammonia 49 H (<30) umol/L Total Protein 5.2 L (6.3-8.2) g/dL Albumin 3.1 L (3.5-5.0) g/dL 10/20/23 10/20/23 Range/Units 05:20 05:50 WBC (3.8-10.6) k/uL RBC (4.30-5.90) m/uL Hgb (13.0-17.5) gm/dL Hct (39.0-53.0) % MCHC (31.0-37.0) g/dL RDW (11.5-15.5) % Plt Count (150-450) k/uL ABG pH 7.46 H (7.35-7.45) ABG pCO2 28 L (35-45) mmHg ABG HCO3 20 L (21-25) mmol/L ABG O2 Saturation 99.4 H (94-97) % Chloride (98-107) mmol/L Carbon Dioxide (22-30) mmol/L BUN (9-20) mg/dL Creatinine (0.66-1.25) mg/dL Glucose (74-99) mg/dL POC Glucose (mg/dL) 160 H (70-110) mg/dL Plasma Lactic Acid Willam (0.7-2.0) mmol/L Calcium (8.4-10.2) mg/dL Ammonia (<30) umol/L Total Protein (6.3-8.2) g/dL Albumin (3.5-5.0) g/dL Microbiology - Last 24 Hours (Table) 10/19/23 12:10 Gram Stain - Preliminary Sputum 10/16/23 16:40 Anaerobic Culture - Preliminary Abdomen 10/16/23 16:40 Gram Stain - Final Abdomen Wound Culture - Final Assessment and Plan Assessment: S/P intubation and mechanical ventilation for impending respiratory failure, secondary to fulminant liver failure, October 19, 2023. Postop day #4, S/P repair of incarcerated umbilical hernia. Chronic liver disease/cirrhosis, and ascites, secondary to previous significant alcohol abuse. Anion gap metabolic acidosis, resolved. Chronic kidney disease, rule out hepatorenal syndrome. Severe hyperammonemia. Lactic acidosis. History of hyperlipidemia. History of hypertension. History of liver cirrhosis. Recurrent ascites, status post frequent paracentesis abdominis. History of depression and PTSD. History of chronic tobacco use. Anemia of chronic disease. Plan: Plan dated October 19, 2023. The patient was transferred down to the intensive care unit, where he was evaluated. The patient is electively intubated, and we also placed a left subclavian triple-lumen catheter, and a right radial art line, for better monitoring and management. Labs, x-rays, medications are reviewed. The patient is initially placed on vent settings of volume assist-control, rate 20, tidal volume 400, FiO2 100%, PEEP of 5. Additional recommendations and suggestions are forthcoming. The medication list is reviewed. Unnecessary medications were discontinued. I did speak to the surgeon about this patient. If the patient shows further deterioration, will attempt to transfer the patient to a facility that deals in patients with severe liver disease. Plan dated October 20, 2023. The patient is seen again today in room 263. He was transferred down to the intensive care unit yesterday, where, he was intubated, and had an arterial line placed, and a central line placed. The patient has hepatic encephalopathy, and more recently, has been having issues with low blood pressure. He was started on norepinephrine, which is currently running at 3 mcg/min. He continues on propofol, and also D5W with 3 ampoules of sodium bicarbonate at 80 cc an hour. Tube feedings will be started today. A head CT which was done yesterday was negative. The patient will get a EEG performed. In addition, I have asked the nurse to give the patient Ativan 2 mg, to see if the tremors stop. Time with Patient: Greater than 30
[2023-10-20 11:34] LABS: Glucose,Whole Blood 171 mg/dL (70-110)
--- NOTE | 2023-10-20 11:44 | P.PN ---
Subjective Patient is seen for follow-up for acute kidney injury, hepatorenal syndrome. patient was transferred to the ICU due to Unresponsiveness. He was eventually intubated. Ammonia was elevated at 259 and has decreased to 49 today. currently maintained on IV fluids, IV bicarb. Also receiving midodrine and Sandostatin along with albumin for hepatorenal syndrome. Patient has just had an EEG performed. Serum creatinine has decreased to 2.27 today. urine output at 40-60 mL an hour Objective - Vital Signs Vital signs: Vital Signs Temp 98.0 F 10/20/23 08:00 Pulse 67 10/20/23 11:30 Resp 20 10/20/23 11:30 BP 99/53 10/20/23 11:00 Pulse Ox 99 10/20/23 11:30 FiO2 40 10/20/23 08:53 Intake & Output 10/19/23 10/20/23 10/20/23 18:59 06:59 18:59 Intake Total 2116.033 1254.098 757.455 Output Total 290 1040 230 Balance 1826.033 214.098 527.455 Weight 76.1 kg Intake: IV 1950 960 550 Albumin Human 25% 50 ml @ 100 100 50 mls/hr IV DAILY [facility] Rx#:[id number] Dextrose 5% in Water 1, 800 960 400 000 ml @ 80 mls/hr IV . [id number] [facility] with Sodium Bicarb (1 Meq/ml) 150 ml Rx#:[id number] Sodium Chloride 0.9% 1, 1000 000 ml @ 999 mls/hr IV . Q1H1M ONE Rx#:[id number] cefTRIAXone 2 gm In 50 50 Sodium Chloride 0.9% 50 ml @ 100 mls/hr IVPB Q24HR [facility] Rx#:[id number] Intake, IV Titration 166.033 294.098 157.455 Amount Norepinephrine 4 mg In 117.824 57.455 Sodium Chloride 0.9% 250 ml @ 0.03 MCG/KG/MIN 9. 201 mls/hr IV .Q24H [facility] Rx#:[id number] propofoL 1,000 mg In 166.033 176.274 100 Empty Bag 1 bag @ 15 MCG/ KG/MIN 7.245 mls/hr IV . [id number] [facility] Rx#:[id number] Other 50 Output: Gastric Drainage 300 Drainage 10 Lower Abdomen 10 Urine 290 430 230 Stool 300 Other: Voiding Method Indwelling Catheter Indwelling Catheter Indwelling Catheter ABP, PAP, CO, CI - Last Documented Arterial Blood Pressure 125/47 - Exam Patient is sedated and on the vent Examination of the heart S1 and S2 Examination of the lungs bilateral breath sounds are heard Abdomen is soft , incision is dressed Examination of lower extremities shows no significant edema [facility] [employer] exam cannot be performed - Labs CBC & Chem 7: 10/20/23 04:00 10/20/23 04:00 Labs: Abnormal Lab Results - Last 24 Hours (Table) 10/19/23 10/19/23 10/19/23 Range/Units 12:15 18:19 23:52 WBC (3.8-10.6) k/uL RBC (4.30-5.90) m/uL Hgb (13.0-17.5) gm/dL Hct (39.0-53.0) % MCHC (31.0-37.0) g/dL RDW (11.5-15.5) % Plt Count (150-450) k/uL ABG pH (7.35-7.45) ABG pCO2 (35-45) mmHg ABG HCO3 (21-25) mmol/L ABG O2 Saturation (94-97) % Chloride (98-107) mmol/L Carbon Dioxide (22-30) mmol/L BUN (9-20) mg/dL Creatinine (0.66-1.25) mg/dL Glucose (74-99) mg/dL POC Glucose (mg/dL) 189 H 131 H (70-110) mg/dL Plasma Lactic Acid Willam 2.3 H* (0.7-2.0) mmol/L Calcium (8.4-10.2) mg/dL Ammonia (<30) umol/L Total Protein (6.3-8.2) g/dL Albumin (3.5-5.0) g/dL 10/20/23 10/20/23 10/20/23 Range/Units 04:00 04:00 04:00 WBC 13.0 H (3.8-10.6) k/uL RBC 2.70 L (4.30-5.90) m/uL Hgb 7.0 L (13.0-17.5) gm/dL Hct 23.0 L (39.0-53.0) % MCHC 30.6 L (31.0-37.0) g/dL RDW 19.7 H (11.5-15.5) % Plt Count 106 L (150-450) k/uL ABG pH (7.35-7.45) ABG pCO2 (35-45) mmHg ABG HCO3 (21-25) mmol/L ABG O2 Saturation (94-97) % Chloride 111 H (98-107) mmol/L Carbon Dioxide 17 L (22-30) mmol/L BUN 63 H (9-20) mg/dL Creatinine 2.27 H (0.66-1.25) mg/dL Glucose 138 H (74-99) mg/dL POC Glucose (mg/dL) (70-110) mg/dL Plasma Lactic Acid Willam (0.7-2.0) mmol/L Calcium 7.8 L (8.4-10.2) mg/dL Ammonia 49 H (<30) umol/L Total Protein 5.2 L (6.3-8.2) g/dL Albumin 3.1 L (3.5-5.0) g/dL 10/20/23 10/20/23 10/20/23 Range/Units 05:20 05:50 11:31 WBC (3.8-10.6) k/uL RBC (4.30-5.90) m/uL Hgb (13.0-17.5) gm/dL Hct (39.0-53.0) % MCHC (31.0-37.0) g/dL RDW (11.5-15.5) % Plt Count (150-450) k/uL ABG pH 7.46 H (7.35-7.45) ABG pCO2 28 L (35-45) mmHg ABG HCO3 20 L (21-25) mmol/L ABG O2 Saturation 99.4 H (94-97) % Chloride (98-107) mmol/L Carbon Dioxide (22-30) mmol/L BUN (9-20) mg/dL Creatinine (0.66-1.25) mg/dL Glucose (74-99) mg/dL POC Glucose (mg/dL) 160 H 171 H (70-110) mg/dL Plasma Lactic Acid Willam (0.7-2.0) mmol/L Calcium (8.4-10.2) mg/dL Ammonia (<30) umol/L Total Protein (6.3-8.2) g/dL Albumin (3.5-5.0) g/dL Microbiology - Last 24 Hours (Table) 10/19/23 12:10 Gram Stain - Preliminary Sputum 10/16/23 16:40 Anaerobic Culture - Preliminary Abdomen 10/16/23 16:40 Gram Stain - Final Abdomen Wound Culture - Final Assessment and Plan Assessment: 1. Acute kidney injury, ATN from hypotension versus hepatorenal syndrome. Maintained on midodrine, Sandostatin and has been receiving albumin. No evidence of obstruction on computed tomography scan on 09/04/2023. 2. Non- gap metabolic acidosis associated with acute kidney injury. 3. Mild hyperkalemia associated with acute kidney injury and metabolic acidosis, improved 4. History of EtOH-related liver cirrhosis. 5. Status post open repair of incarcerated umbilical hernia and umbilectomy on 10/16/2023. 6. Anemia and with no active bleeding noted. Check iron profile 7. Hepatic encephalopathy with serum ammonia at 259, decreased to 49 with lactulose 8. Acute hypoxic respiratory failure, currently on the vent Plan: continue with IV bicarb. Continue with midodrine and Sandostatin along with albumin. Repeat labs in a.m. Avoid nephrotoxic agents. continue with lactulose
--- NOTE | 2023-10-20 12:27 | P.PN ---
Subjective Progress Note Date: 10/20/23 CHIEF COMPLAINT: Incarcerated umbilical hernia HISTORY OF PRESENT ILLNESS: Postop day #4 status post open repair of incarcerated umbilical hernia, umbillectomy. Patient is in the ICU and is intubated and on mechanical ventilation. He did get an EEG this morning. He had 300 mL of bright red blood out of the OG tube this morning. WBC is down from 18-13 Hgb 8.3-7.0 cr 2.27. Ammonia level down to 49. He is on Levophed for hypotension. PHYSICAL EXAM: VITAL SIGNS: Reviewed. GENERAL: intubated ABDOMEN: Soft. mildly distended. Prevena wound vac in tact. CHRIS drain 10 mL serosanguineous output ASSESSMENT: 1. Incarcerated umbilical hernia status post repair 2. Respiratory failure requiring mechanical ventilation 3. Elevated ammonia level 4. Chronic liver disease and liver cirrhosis with prior alcohol abuse 5. Hepatic encephalopathy PLAN: -Continue to monitor OG tube for further bleeding -Continue to monitor hemoglobin -Continue ICU management -Continue supportive care -Continue to monitor -Continue PPI Physician High Lift Driver note has been reviewed by physician. Signing provider agrees with the documented findings, assessment, and plan of care. I have personally seen and examined the patient, reviewed the [employer] /PAs history, exam and MDM and agree with the assessment and plan as written. Based on total visit time, I have performed more than 50% of the visit. As above: Patient remained stable on the ventilator. Low-dose pressors on board. Ammonia level is improved. Patient did have some blood in the gastric output. Begin low-dose tube feeds. Objective - Vital Signs Vital signs: Vital Signs Temp 98.0 F 10/20/23 08:00 Pulse 72 10/20/23 10:45 Resp 22 10/20/23 10:45 BP 112/58 10/20/23 10:00 Pulse Ox 98 10/20/23 10:45 FiO2 40 10/20/23 08:53 Intake & Output 10/19/23 10/20/23 10/20/23 18:59 06:59 18:59 Intake Total 2116.033 1254.098 677.455 Output Total 290 1040 190 Balance 1826.033 214.098 487.455 Weight 76.1 kg Intake: IV 1950 960 470 Albumin Human 25% 50 ml @ 100 100 50 mls/hr IV DAILY [facility] Rx#:[id number] Dextrose 5% in Water 1, 800 960 320 000 ml @ 80 mls/hr IV . [id number] [facility] with Sodium Bicarb (1 Meq/ml) 150 ml Rx#:[id number] Sodium Chloride 0.9% 1, 1000 000 ml @ 999 mls/hr IV . Q1H1M ONE Rx#:[id number] cefTRIAXone 2 gm In 50 50 Sodium Chloride 0.9% 50 ml @ 100 mls/hr IVPB Q24HR [facility] Rx#:[id number] Intake, IV Titration 166.033 294.098 157.455 Amount Norepinephrine 4 mg In 117.824 57.455 Sodium Chloride 0.9% 250 ml @ 0.03 MCG/KG/MIN 9. 201 mls/hr IV .Q24H [facility] Rx#:[id number] propofoL 1,000 mg In 166.033 176.274 100 Empty Bag 1 bag @ 15 MCG/ KG/MIN 7.245 mls/hr IV . [id number] [facility] Rx#:[id number] Other 50 Output: Gastric Drainage 300 Drainage 10 Lower Abdomen 10 Urine 290 430 190 Stool 300 Other: Voiding Method Indwelling Catheter Indwelling Catheter Indwelling Catheter ABP, PAP, CO, CI - Last Documented Arterial Blood Pressure 129/48 - Labs CBC & Chem 7: 10/20/23 04:00 10/20/23 04:00 Labs: Abnormal Lab Results - Last 24 Hours (Table) 10/19/23 10/19/23 10/19/23 Range/Units 12:15 18:19 23:52 WBC (3.8-10.6) k/uL RBC (4.30-5.90) m/uL Hgb (13.0-17.5) gm/dL Hct (39.0-53.0) % MCHC (31.0-37.0) g/dL RDW (11.5-15.5) % Plt Count (150-450) k/uL ABG pH (7.35-7.45) ABG pCO2 (35-45) mmHg ABG HCO3 (21-25) mmol/L ABG O2 Saturation (94-97) % Chloride (98-107) mmol/L Carbon Dioxide (22-30) mmol/L BUN (9-20) mg/dL Creatinine (0.66-1.25) mg/dL Glucose (74-99) mg/dL POC Glucose (mg/dL) 189 H 131 H (70-110) mg/dL Plasma Lactic Acid Willam 2.3 H* (0.7-2.0) mmol/L Calcium (8.4-10.2) mg/dL Ammonia (<30) umol/L Total Protein (6.3-8.2) g/dL Albumin (3.5-5.0) g/dL 10/20/23 10/20/23 10/20/23 Range/Units 04:00 04:00 04:00 WBC 13.0 H (3.8-10.6) k/uL RBC 2.70 L (4.30-5.90) m/uL Hgb 7.0 L (13.0-17.5) gm/dL Hct 23.0 L (39.0-53.0) % MCHC 30.6 L (31.0-37.0) g/dL RDW 19.7 H (11.5-15.5) % Plt Count 106 L (150-450) k/uL ABG pH (7.35-7.45) ABG pCO2 (35-45) mmHg ABG HCO3 (21-25) mmol/L ABG O2 Saturation (94-97) % Chloride 111 H (98-107) mmol/L Carbon Dioxide 17 L (22-30) mmol/L BUN 63 H (9-20) mg/dL Creatinine 2.27 H (0.66-1.25) mg/dL Glucose 138 H (74-99) mg/dL POC Glucose (mg/dL) (70-110) mg/dL Plasma Lactic Acid Willam (0.7-2.0) mmol/L Calcium 7.8 L (8.4-10.2) mg/dL Ammonia 49 H (<30) umol/L Total Protein 5.2 L (6.3-8.2) g/dL Albumin 3.1 L (3.5-5.0) g/dL 10/20/23 10/20/23 Range/Units 05:20 05:50 WBC (3.8-10.6) k/uL RBC (4.30-5.90) m/uL Hgb (13.0-17.5) gm/dL Hct (39.0-53.0) % MCHC (31.0-37.0) g/dL RDW (11.5-15.5) % Plt Count (150-450) k/uL ABG pH 7.46 H (7.35-7.45) ABG pCO2 28 L (35-45) mmHg ABG HCO3 20 L (21-25) mmol/L ABG O2 Saturation 99.4 H (94-97) % Chloride (98-107) mmol/L Carbon Dioxide (22-30) mmol/L BUN (9-20) mg/dL Creatinine (0.66-1.25) mg/dL Glucose (74-99) mg/dL POC Glucose (mg/dL) 160 H (70-110) mg/dL Plasma Lactic Acid Willam (0.7-2.0) mmol/L Calcium (8.4-10.2) mg/dL Ammonia (<30) umol/L Total Protein (6.3-8.2) g/dL Albumin (3.5-5.0) g/dL Microbiology - Last 24 Hours (Table) 10/19/23 12:10 Gram Stain - Preliminary Sputum 10/16/23 16:40 Anaerobic Culture - Preliminary Abdomen 10/16/23 16:40 Gram Stain - Final Abdomen Wound Culture - Final
[2023-10-20] MEDS: LORazepam 2 MG/ML INJ IV STA (12:28)
[2023-10-20] MEDS: POTASSIUM BICARBONATE/CIT AC 20 MEQ TABLET.EFF PO ONE (12:30)
--- NOTE | 2023-10-20 13:21 | P.PN ---
Subjective Progress Note Date: 10/20/23 43-year-old male with a past medical history of advanced alcoholic liver cirrhosis follows with physician advisor/picc nurse at [facility] and undergoes weekly paracentesis at this time with last paracentesis being 10/14/2023 with a documented removal of 10,000 cc of ascitic fluid, chronic kidney disease stage IIIb, depression, PTSD, and nicotine dependence. He presented to the emergency department on 10/16/23 with a chief complaint of intractable abdominal pain and reports umbilical hernia is now nonreducible. Upon arrival to our facility, patient underwent evaluation in the emergency department. Vital signs upon arrival show blood pressure 115/69, heart rate 76, respiratory rate 18, temp 97.8 F, and SpO2 100% on room air. EKG completed showing normal sinus rhythm at 63 bpm with no noted T wave or ST abnormalities showing no signs of acute ischemia upon personal review and interpretation. Labs were completed and reviewed. CBC showing bicytopenia with hemoglobin of 7.9 and platelet count of 98. Coagulation profile showing elevated PT of 14.7 and INR 1.4. BMP showing hyponatremia with sodium of 133, hyperchloremia with chloride of 110, hypocarbia with bicarb of 13, and anion gap of 10 with renal function consistent with stage IIIb CKD showing BUN of 35, creatinine 1.65, GFR 51. Blood glucose was 119. Lactic acid was 1.8. Liver profile was unremarkable. Patient was evaluated by general surgeon, he is being admitted to general surgery team with plans to be taken to the OR for open surgical repair of incarcerated umbilical hernia. We were consulted for preoperative medical clearance and postoperative medical management. On 10/16/2023 patient underwent open repair of incarcerated umbilical hernia with umbillectomy. Renal function continued to worsen. Patient was started on albumin, midodrine increased, octreotide. Nephrology also consulted. Patient was started on bicarb drip. Patient became encephalopathic on 10/18 morning. Started on rectal lactulose. Was transferred to medical ICU. Continued to worsen, and was intubated subsequently. Also started on IV antibiotics. There is concern for GI bleed as well. 10/19 Patient was seen and examined. Intubated. Generalized tremors noted. Currently on Levophed 0.03 mcg/kg/min. Sedated with propofol at 50 mcg/kg/min. Currently on D5W with 3 amps of sodium bicarbonate at 80 cc/hr.CBC WBC 13, Hg 7, Hct 23, Plt 106. ABG pH 7.46, pCO2 28. CMP Cl 111, bicarb 17, BUN 63, Cr 2.27, glu 138, Ca 7.8, alb 3.1. CXR shows no consolidation. General: Intubated sedated Derm: Warm, dry, jaundice Head: Atraumatic, normocephalic, symmetric Eyes: Scleral icterus, pupils equal and reactive Mouth: No lip lesion, mucus membranes moist, some blood in the mouth Cardiovascular: S1S2 reg, tachycardic, no murmur Lungs: CTA bilateral, no rhonchi, no rales, no accessory muscle use, intubated Abdominal: Soft, nontender to palpation, no guarding, no appreciable organomegaly, midline dressing clean, dry, intact Ext: Gross muscle atrophy Neuro: Sedated Psych: Unable to assess Acute hepatic encephalopathy Suspected spontaneous bacterial peritonitis: Rocephin 2g IV QD. Septic shock likely secondary to above: Antibiotics as above. Maintain Levophed to MAP > 65. Telemetry monitoring. IVAN, secondary to suspected hepatorenal syndrome, history of CKD stage III Tremors: CT brain negative. EEG pending. History of advanced liver cirrhosis: Continue IV albumin daily, midodrine 15 mg PO TID, octreotide 100mcg subQ every 8 hours. Lactulose 20g PO TID. Metabolic acidosis Lactic acidosis Bicytopenia, secondary to liver cirrhosis Elevated INR Acute GI bleed: Surgery on board recommending continued monitoring. Repeat CBC this afternoon. Protonix 40 mg IV QD. Transfuse if Hg < 7. Incarcerated/strangulated umbilical hernia status post open repair: Management per general surgery CODE STATUS: FULL CODE DVT Prophylaxis: GI Prophylaxis: Designated medical POA if patient is not able to make medical decisions for themselves: I have reviewed the following franchise business consultant notes: Pulmonary, Surgery, Nephrology I have reviewed the results of the following tests: CBC, CMP, ABG I have ordered the following tests: I have discussed the care of this patient with the following independent historian: Case management I have independently interpreted the following test below: CXR I have discussed the management of this patient with the following physician: Objective - Vital Signs Vital signs: Vital Signs Temp 98.2 F 10/20/23 12:00 Pulse 69 10/20/23 12:45 Resp 23 10/20/23 12:45 BP 99/53 10/20/23 12:00 Pulse Ox 99 10/20/23 12:45 FiO2 40 10/20/23 12:40 Intake & Output 10/19/23 10/20/23 10/20/23 18:59 06:59 18:59 Intake Total 2116.033 1254.098 887.455 Output Total 290 1040 290 Balance 1826.033 214.098 597.455 Weight 76.1 kg Intake: IV 1950 960 630 Albumin Human 25% 50 ml @ 100 100 50 mls/hr IV DAILY [facility] Rx#:[id number] Dextrose 5% in Water 1, 800 960 480 000 ml @ 80 mls/hr IV . [id number] IRINA with Sodium Bicarb (1 Meq/ml) 150 ml Rx#:[id number] Sodium Chloride 0.9% 1, 1000 000 ml @ 999 mls/hr IV . Q1H1M ONE Rx#:[id number] cefTRIAXone 2 gm In 50 50 Sodium Chloride 0.9% 50 ml @ 100 mls/hr IVPB Q24HR [facility] Rx#:[id number] Intake, IV Titration 166.033 294.098 157.455 Amount Norepinephrine 4 mg In 117.824 57.455 Sodium Chloride 0.9% 250 ml @ 0.03 MCG/KG/MIN 9. 201 mls/hr IV .Q24H [facility] Rx#:[id number] propofoL 1,000 mg In 166.033 176.274 100 Empty Bag 1 bag @ 15 MCG/ KG/MIN 7.245 mls/hr IV . [id number] [facility] Rx#:[id number] Other 100 Output: Gastric Drainage 300 Drainage 10 Lower Abdomen 10 Urine 290 430 290 Stool 300 Other: Voiding Method Indwelling Catheter Indwelling Catheter Indwelling Catheter ABP, PAP, CO, CI - Last Documented Arterial Blood Pressure 123/42 - Labs CBC & Chem 7: 10/20/23 04:00 10/20/23 04:00 Labs: Abnormal Lab Results - Last 24 Hours (Table) 10/19/23 10/19/23 10/19/23 Range/Units 12:15 18:19 23:52 WBC (3.8-10.6) k/uL RBC (4.30-5.90) m/uL Hgb (13.0-17.5) gm/dL Hct (39.0-53.0) % MCHC (31.0-37.0) g/dL RDW (11.5-15.5) % Plt Count (150-450) k/uL ABG pH (7.35-7.45) ABG pCO2 (35-45) mmHg ABG HCO3 (21-25) mmol/L ABG O2 Saturation (94-97) % Chloride (98-107) mmol/L Carbon Dioxide (22-30) mmol/L BUN (9-20) mg/dL Creatinine (0.66-1.25) mg/dL Glucose (74-99) mg/dL POC Glucose (mg/dL) 189 H 131 H (70-110) mg/dL Plasma Lactic Acid Willam 2.3 H* (0.7-2.0) mmol/L Calcium (8.4-10.2) mg/dL Ammonia (<30) umol/L Total Protein (6.3-8.2) g/dL Albumin (3.5-5.0) g/dL 10/20/23 10/20/23 10/20/23 Range/Units 04:00 04:00 04:00 WBC 13.0 H (3.8-10.6) k/uL RBC 2.70 L (4.30-5.90) m/uL Hgb 7.0 L (13.0-17.5) gm/dL Hct 23.0 L (39.0-53.0) % MCHC 30.6 L (31.0-37.0) g/dL RDW 19.7 H (11.5-15.5) % Plt Count 106 L (150-450) k/uL ABG pH (7.35-7.45) ABG pCO2 (35-45) mmHg ABG HCO3 (21-25) mmol/L ABG O2 Saturation (94-97) % Chloride 111 H (98-107) mmol/L Carbon Dioxide 17 L (22-30) mmol/L BUN 63 H (9-20) mg/dL Creatinine 2.27 H (0.66-1.25) mg/dL Glucose 138 H (74-99) mg/dL POC Glucose (mg/dL) (70-110) mg/dL Plasma Lactic Acid Willam (0.7-2.0) mmol/L Calcium 7.8 L (8.4-10.2) mg/dL Ammonia 49 H (<30) umol/L Total Protein 5.2 L (6.3-8.2) g/dL Albumin 3.1 L (3.5-5.0) g/dL 10/20/23 10/20/23 10/20/23 Range/Units 05:20 05:50 11:31 WBC (3.8-10.6) k/uL RBC (4.30-5.90) m/uL Hgb (13.0-17.5) gm/dL Hct (39.0-53.0) % MCHC (31.0-37.0) g/dL RDW (11.5-15.5) % Plt Count (150-450) k/uL ABG pH 7.46 H (7.35-7.45) ABG pCO2 28 L (35-45) mmHg ABG HCO3 20 L (21-25) mmol/L ABG O2 Saturation 99.4 H (94-97) % Chloride (98-107) mmol/L Carbon Dioxide (22-30) mmol/L BUN (9-20) mg/dL Creatinine (0.66-1.25) mg/dL Glucose (74-99) mg/dL POC Glucose (mg/dL) 160 H 171 H (70-110) mg/dL Plasma Lactic Acid Willam (0.7-2.0) mmol/L Calcium (8.4-10.2) mg/dL Ammonia (<30) umol/L Total Protein (6.3-8.2) g/dL Albumin (3.5-5.0) g/dL Microbiology - Last 24 Hours (Table) 10/19/23 12:10 Gram Stain - Preliminary Sputum Sputum Culture - Preliminary 10/16/23 16:40 Anaerobic Culture - Preliminary Abdomen 10/16/23 16:40 Gram Stain - Final Abdomen Wound Culture - Final
[2023-10-20 17:59] LABS: Glucose,Whole Blood 135 mg/dL (70-110)
[2023-10-20] MEDS ORDERED: METOCLOPRAMIDE 5 MG/ML 2 ML VIAL IVP PRN (18:45)
--- NOTE | 2023-10-20 22:39 | EEG ---
ELECTROENCEPHALOGRAM REPORT PREAMBLE: This is a 43-year-old male, who had presented with incarcerated umbilical hernia, currently on ventilator with sedation with propofol 50 mcg/kg per minute. The patient does have history of chronic liver disease from alcohol abuse, cirrhosis, and ascites. The patient is having some tremors and seizure-like activity. CURRENT MEDICATIONS: 1. Ceftriaxone. 2. Dilaudid. 3. Sandostatin. 4. Zofran. 5. Protonix. 6. Propofol. EEG FINDINGS: This is a 21-channel digital EEG recorded with video component, utilizing 10/20 international system with referential and bipolar montages. Background consists of poorly developed and regulated, mixed frequencies of 5 to 6 hertz theta, intermixed with some delta slowing in bihemispheric region. Intermittent periods of generalized suppression for 1 to 2 seconds is also seen. Photic driving response was not seen. Different stages of sleep were not seen. No focal or generalized epileptiform activity was seen. IMPRESSION: This is an abnormal EEG due to background slowing of moderate to severe degree. This is suggestive of generalized cerebral dysfunction as can be seen with toxic metabolic encephalopathy or related to diffuse structural brain abnormality. Periods of generalized suppression suggests medication effect. No epileptiform activity was seen. No electrographic seizures were recorded. MMODL / IJN: [id number] /
[2023-10-21 00:36] LABS: Glucose,Whole Blood 123 mg/dL (70-110)
[2023-10-21] MEDS: fentaNYL (PF). 1,000 MCG in SODIUM CHLORIDE 0.9% 80 ML IV SCH (03:47)
[2023-10-21 05:17] LABS: ABG Base Excess 3.2 mmol/L; ABG HCO3 27 mmol/L (21-25); ABG Oxygen Saturation 93.2 % (94-97); ABG PCO2 37 mmHg (35-45); ABG PH 7.47 (7.35-7.45); ABG PO2 64 mmHg (83-108); ABG TCO2 28 mmol/L (19-24); Allen Test Performed? Yes
[2023-10-21 05:34] LABS: Anisocytosis Slight; HCT 22.8 % (39.0-53.0); Hypochromasia Moderate; MCH 26.2 pg (25.0-35.0); MCHC 30.8 g/dL (31.0-37.0); MCV 85.3 fL (80.0-100.0); Mean Platelet Volume 9.1; Platelet Count 109 k/uL (150-450); RBC 2.67 m/uL (4.30-5.90); RDW 19.7 % (11.5-15.5); WBC 10.3 k/uL (3.8-10.6)
[2023-10-21 06:00] LABS: Glucose,Whole Blood 116 mg/dL (70-110)
[2023-10-21 06:04] LABS: African American GFR (CKD) 54 (>60 ml/min/1.73 sqM); Anion Gap 9 mmol/L; Blood Urea Nitrogen 54 mg/dL (9-20); Calcium 7.7 mg/dL (8.4-10.2); Carbon Dioxide 24 mmol/L (22-30); Chloride 104 mmol/L (98-107); Glucose 101 mg/dL (74-99); Non-African American GFR(CKD) 47 (>60 ml/min/1.73 sqM); Potassium 3.7 mmol/L (3.5-5.1); Sodium 137 mmol/L (137-145)
[2023-10-21] MEDS ORDERED: Potassium Replacement Protocol 1 EACH MISC MISCELLANE PRN (08:01)
[2023-10-21] MEDS: POTASSIUM BICARBONATE/CIT AC 20 MEQ TABLET.EFF NG-TUBE SCH (08:28)
--- NOTE | 2023-10-21 08:52 | XR ---
EXAMINATION TYPE: XR chest 1V portable DATE OF EXAM: 10/21/2023 5:14 AM CLINICAL INDICATION:Male, 43 years old with history of Tube placement; [facility] COMPARISON: Chest radiographs from 10/20/2023 TECHNIQUE: XR chest 1V portable Frontal view of the chest. FINDINGS: Lungs/Pleura: Blunting of left costophrenic angle suggesting small left pleural effusion. There is no evidence of pleural effusion, focal consolidation, or pneumothorax. Pulmonary vascularity: Unremarkable. Heart/mediastinum: Cardiomediastinal silhouette is unremarkable. Musculoskeletal: No acute osseous pathology. Other findings: None Lines/Tubes: Endotracheal tube with distal tip 3.5 cm above the nathaniel. Nasogastric tube with its distal tip and side-port projecting under the diaphragm. Left internal jugular central venous catheter with distal tip at the cavoatrial junction. IMPRESSION: 1. Nasogastric tube in appropriate placement. 2. Left central venous catheter with tip in appropriate placement. 3. Endotracheal tube with tip in appropriate placement. 4. Small left pleural effusion.
--- NOTE | 2023-10-21 10:10 | P.PN ---
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 and undergoes weekly paracentesis (last paracentesis being 10/14/2023) with a documented removal of 10,000 cc of ascitic fluid, CKD stage IIIb, depression, PTSD, and nicotine dependence. He presented to the emergency department on 10/16/23 with a chief complaint of intractable abdominal pain and reports umbilical hernia is now nonreducible. Vital signs upon arrival showed BP 115/69, HR 76, RR 18, T 97.8 F, and SpO2 100% on RA. EKG showed normal sinus rhythm at 63 bpm with no noted T wave or ST abnormalities. CBC showing bicytopenia with Hg 7.9 and Plt 98. Coagulation profile showed PT of 14.7 and INR 1.4. BMP showing Na 133, Cl 110, bicarb of 13, and anion gap of 10, BUN of 35, creatinine 1.65, GFR 51. Blood glucose was 119. Lactic acid was 1.8. Liver profile was unremarkable. Patient was evaluated by general surgeon, he is being admitted to general surgery team with plans to be taken to the OR for open surgical repair of incarcerated umbilical hernia. We were consulted for preoperative medical clearance and postoperative medical management. On 10/15 patient underwent open repair of incarcerated umbilical hernia with umbillectomy. Renal function continued to worsen. Patient was started on albumin and octreotide. Midodrine was increased and Nephrology was consulted. Patient was started on bicarb drip. Patient became encephalopathic on 10/18. St arted on rectal lactulose and transferred to medical ICU. His mentation continued to worsen, and he was intubated. Also started on Rocephin for concerns of SBP on 10/18. There is concern for GI bleed as well. 10/20 Patient was seen and examined. Intubated. Generalized tremors noted on 10/19, CT brain was negative for acute pathology and EEG showed moderate to severe background slowing. Started on Fentanyl drip at 1 mcg/kg/hr. Levophed running at 0.05 mcg/kg/min. Sedated with propofol at 50 mcg/kg/min. Currently on NS at 80 cc/hr. Antibiotics include Rocephin 2g IV QD (D3). CBC Hg 7, Hct 22.8, Plt 109. ABG pH 7.47, pCO2 37. CMP BUN 54, Cr 1.76, glu 101, Ca 7.7. Ammonia 56. CXR shows no consolidation. General: Intubated sedated Derm: Warm, dry, jaundice Head: Atraumatic, normocephalic, symmetric Eyes: Scleral icterus, pupils equal and reactive Mouth: No lip lesion, mucus membranes moist Cardiovascular: S1S2 reg, tachycardic, no murmur Lungs: CTA bilateral, no rhonchi, no rales, no accessory muscle use, intubated Abdominal: Soft, nontender to palpation, no guarding, no appreciable org anomegaly, midline dressing clean, dry, intact Ext: Gross muscle atrophy Neuro: Sedated Psych: Unable to assess Acute hepatic encephalopathy: Lactulose 20g PO TID. Suspected spontaneous bacterial peritonitis: Ascitic fluid culture negative. BCx negative. Sputum Cx negative. Rocephin 2g IV QD (D3). Septic shock likely secondary to above: Antibiotics as above. Maintain Levophed to MAP > 65. Telemetry monitoring. Acute GI bleed: Surgery on board recommending continued monitoring. Protonix 40 mg IV QD. Transfuse if Hg < 7. IVAN, secondary to suspected hepatorenal syndrome, history of CKD stage III: Nephrology recommends continued IV bicarb, midodrine and Sandostatin along with albumin. Tremors: CT brain negative. EEG mod-severe encaphalopathy. History of advanced liver cirrhosis: Continue Albumin 12.5g IV QD, Midodrine 15 mg PO TID, Octreotide 100mcg subQ every 8 hours. Bicytopenia secondary to liver cirrhosis Elevated INR Incarcerated/strangulated umbilical hernia status post open repair: Management per general surgery Resolved: Metabolic and lactic acidosis CODE STATUS: FULL CODE DVT Prophylaxis: SCD GI Prophylaxis: Protonix IV Designated medical POA if patient is not able to make medical decisions for themselves: I have reviewed the following oracle ascp consultant notes: Pulmonary, Surgery, Nephrology I have reviewed the results of the following tests: CBC, CMP, ABG, Ammonia I have ordered the following tests: CBC and CMP in the AM. I have discussed the care of this patient with the following independent historian: Case management, RN I have independently interpreted the following test below: CXR I have discussed the management of this patient with the following physician: Objective - Vital Signs Vital signs: Vital Signs Temp 98.0 F 10/20/23 20:00 Pulse 98 10/21/23 07:00 Resp 25 H 10/21/23 07:00 BP 98/48 10/21/23 07:00 Pulse Ox 93 L 10/21/23 07:00 FiO2 40 10/21/23 04:00 Intake & Output 10/20/23 10/21/23 10/21/23 18:59 06:59 18:59 Intake Total 7743.938 5620.324 80 Output Total 540 405 30 Balance 1058.256 756.324 50 Weight 76.1 kg 76.1 kg Intake: IV 1110 960 80 Albumin Human 25% 50 ml @ 100 50 mls/hr IV DAILY [facility] Rx#:[id number] Dextrose 5% in Water 1, 960 960 80 000 ml @ 80 mls/hr IV . [id number] [facility] with Sodium Bicarb (1 Meq/ml) 150 ml Rx#:[id number] cefTRIAXone 2 gm In 50 Sodium Chloride 0.9% 50 ml @ 100 mls/hr IVPB Q24HR [facility] Rx#:[id number] Intake, IV Titration 378.256 191.324 Amount Norepinephrine 4 mg In 110.515 Sodium Chloride 0.9% 250 ml @ 0.03 MCG/KG/MIN 9. 201 mls/hr IV .Q24H [facility] Rx#:[id number] fentaNYL (PF). 1,000 mcg 3.678 In Sodium Chloride 0.9% 80 ml @ 0.5 MCG/KG/HR 3. 805 mls/hr IV .Q24H [facility] Rx#:[id number] propofoL 1,000 mg In 267.741 187.646 Empty Bag 1 bag @ 15 MCG/ KG/MIN 7.245 mls/hr IV . [id number] [facility] Rx#:[id number] Tube Feeding 10 10 Other 100 Output: Gastric Drainage 60 Urine 540 345 30 Other: Voiding Method Indwelling Catheter Indwelling Catheter ABP, PAP, CO, CI - Last Documented Arterial Blood Pressure 126/40 - Labs CBC & Chem 7: 10/21/23 05:19 10/21/23 05:19 Labs: Abnormal Lab Results - Last 24 Hours (Table) 10/20/23 10/20/23 10/21/23 Range/Units 11:31 17:58 00:34 RBC (4.30-5.90) m/uL Hgb (13.0-17.5) gm/dL Hct (39.0-53.0) % MCHC (31.0-37.0) g/dL RDW (11.5-15.5) % Plt Count (150-450) k/uL ABG pH (7.35-7.45) ABG pO2 (83-108) mmHg ABG HCO3 (21-25) mmol/L ABG Total CO2 (19-24) mmol/L ABG O2 Saturation (94-97) % BUN (9-20) mg/dL Creatinine (0.66-1.25) mg/dL Glucose (74-99) mg/dL POC Glucose (mg/dL) 171 H 135 H 123 H (70-110) mg/dL Calcium (8.4-10.2) mg/dL Ammonia (<30) umol/L 10/21/23 10/21/23 10/21/23 Range/Units 05:12 05:19 05:19 RBC 2.67 L (4.30-5.90) m/uL Hgb 7.0 L (13.0-17.5) gm/dL Hct 22.8 L (39.0-53.0) % MCHC 30.8 L (31.0-37.0) g/dL RDW 19.7 H (11.5-15.5) % Plt Count 109 L (150-450) k/uL ABG pH 7.47 H (7.35-7.45) ABG pO2 64 L (83-108) mmHg ABG HCO3 27 H (21-25) mmol/L ABG Total CO2 28 H (19-24) mmol/L ABG O2 Saturation 93.2 L (94-97) % BUN 54 H (9-20) mg/dL Creatinine 1.76 H (0.66-1.25) mg/dL Glucose 101 H (74-99) mg/dL POC Glucose (mg/dL) (70-110) mg/dL Calcium 7.7 L (8.4-10.2) mg/dL Ammonia (<30) umol/L 10/21/23 10/21/23 Range/Units 05:49 05:59 RBC (4.30-5.90) m/uL Hgb (13.0-17.5) gm/dL Hct (39.0-53.0) % MCHC (31.0-37.0) g/dL RDW (11.5-15.5) % Plt Count (150-450) k/uL ABG pH (7.35-7.45) ABG pO2 (83-108) mmHg ABG HCO3 (21-25) mmol/L ABG Total CO2 (19-24) mmol/L ABG O2 Saturation (94-97) % BUN (9-20) mg/dL Creatinine (0.66-1.25) mg/dL Glucose (74-99) mg/dL POC Glucose (mg/dL) 116 H (70-110) mg/dL Calcium (8.4-10.2) mg/dL Ammonia 56 H (<30) umol/L Microbiology - Last 24 Hours (Table) 10/19/23 12:15 Blood Culture Gram Stain - Preliminary Blood Blood Culture - Preliminary 10/19/23 12:19 Blood Culture - Preliminary Blood 10/19/23 12:10 Gram Stain - Preliminary Sputum Sputum Culture - Preliminary
--- NOTE | 2023-10-21 11:39 | P.PN ---
Subjective Progress Note Date: 10/21/23 Principal diagnosis: Respiratory failure. Pulmonary consult dated October 19, 2023. 44-year-old male who presented to the emergency department, on October 15, complaining of abdominal pain. The patient has a history of chronic liver disease from alcohol abuse, with cirrhosis and ascites, and need for periodic paracentesis abdominis. The patient has a known history of a umbilical hernia, which she is able to typically reduce, but because he was not able to reduce it, he came in to be evaluated. The patient ended up having surgery, last Thursday, on the , and initially was doing okay. This morning I was called by the surgeon, and my charge nurse in the intensive care unit, to say that the patient was doing poorly, and should be transferred down to the intensive care unit for further monitoring and management. The patient was very lethargic, and looked very unstable, with impending respiratory failure. When I first saw the patient he was on room air, and receiving an IV with 3 ampoules of sodium bicarb in D5W at 80 cc an hour. I asked for stat blood gas, when the patient came to the intensive care unit. His pO2 was 40, pCO2 27, pH is 7.41. After evaluating the patient, I decided to intubate the patient which we did, and place a central line and arterial line, both of which we did. Current laboratory data includes a blood gas showing a pO2 of 393, pCO2 41, pH is 7.26. Saturations are 100%. White count is 18.9, hemoglobin 8.3, hematocrit 26.3, and a platelet count of 156,000. Sodium 137, potassium 4.5, chlorides 106, CO2 14, anion gap 17, BUN 69.6, and creatinine 3. Glucose was 126. Lactic acid was 2.8. Bilirubin was 1.5. Ammonia level was up to 259. Cultures of the ascitic fluid are thus far negative. Chest x-ray shows endotracheal tube to be in good position. Central line is in good position, without complication. Progress note dated October 20, 2023. The patient is seen today in room 263. The patient was intubated, and lined yesterday, for respiratory failure. The patient has a history of chronic liver disease, with cirrhosis, ascites, and encephalopathy. Currently, the patient is on volume assist-control, rate 20, tidal volume 400, FiO2 40%, PEEP of 5. Blood gases show pO2 108, pCO2 28, pH is 7.46. This blood gases consistent with a mild respiratory alkalosis. The patient is getting D5W with 3 ampoules of sodium bicarbonate at 80 cc an hour. The patient is getting norepinephrine at 3 mcg/min, propofol at 50 mcg/kg/min. The patient has been having tremor-like activity, and could be seizing. The brain CT was negative. The patient will have tube feedings beginning today. We have ordered an EEG. In addition, I have asked the nurse to give the patient 2 mg of Ativan, to see if the tremors cease. White count is 13, hemoglobin 7, hematocrit 23, platelet count 106,000. Sodium 138, potassium 3.5, chlorides 111, CO2 17, anion gap 10, BUN 63, creatinine 2.27. Glucose is 160. Ammonia level is down to 49. Albumin is 3.1. Thus far, cultures are negative. The patient's chest x-ray shows the endotracheal tube to be high in the trachea, and have asked respiratory therapy to push it down to 1.5 cm. Progress note dated October 21, 2023. The patient is seen today in room 263. He remains on mechanical ventilator. He is on volume assist-control, rate 20, tidal volume 400, FiO2 40%, PEEP of 5. Blood gases show pO2 of 64, pCO2 37, pH is 7.47. The patient is getting propofol at 50 mcg/kg/min, D5W with 3 ampoules of bicarbonate at 80 cc an hour, fentanyl drip at 1 mcg/kg/h, vital AF at 29 cc an hour, with a goal of 43 cc an hour. The patient also continues on Rocephin. White count is 10.3, hemoglobin 7, hematocrit 22.8, and platelet count 109,000. Sodium 137, potassium 3.7, chlorides 104, CO2 24, BUN 54, and creatinine 1.76. Glucose is 116. Ammonia level is 56. Calcium is 7.7. Cultures are thus far negative. Chest x-ray is unchanged. There is a small left pleural effusion. NG tube, endotracheal tube, and central venous catheter, are in appropriate positions. Objective - Vital Signs Vital signs: Vital Signs Temp 99.5 F 10/21/23 08:00 Pulse 97 10/21/23 10:00 Resp 20 10/21/23 10:00 BP 99/48 10/21/23 10:00 Pulse Ox 94 L 10/21/23 10:00 FiO2 40 10/21/23 08:32 Intake & Output 10/20/23 10/21/23 10/21/23 18:59 06:59 18:59 Intake Total 0513.059 3347.324 505.254 Output Total 540 405 90 Balance 1058.256 756.324 415.254 Weight 76.1 kg 76.1 kg Intake: IV 1110 960 370 Albumin Human 25% 50 ml @ 100 50 mls/hr IV DAILY [facility] Rx#:[id number] Dextrose 5% in Water 1, 960 960 320 000 ml @ 80 mls/hr IV . [id number] [facility] with Sodium Bicarb (1 Meq/ml) 150 ml Rx#:[id number] cefTRIAXone 2 gm In 50 50 Sodium Chloride 0.9% 50 ml @ 100 mls/hr IVPB Q24HR [facility] Rx#:[id number] Intake, IV Titration 378.256 191.324 106.254 Amount Norepinephrine 4 mg In 110.515 12.472 Sodium Chloride 0.9% 250 ml @ 0.03 MCG/KG/MIN 9. 201 mls/hr IV .Q24H [facility] Rx#:[id number] fentaNYL (PF). 1,000 mcg 3.678 In Sodium Chloride 0.9% 80 ml @ 0.5 MCG/KG/HR 3. 805 mls/hr IV .Q24H [facility] Rx#:[id number] propofoL 1,000 mg In 267.741 187.646 93.782 Empty Bag 1 bag @ 15 MCG/ KG/MIN 7.245 mls/hr IV . [id number] [facility] Rx#:[id number] Tube Feeding 10 10 29 Other 100 Output: Gastric Drainage 60 Urine 540 345 90 Other: Voiding Method Indwelling Catheter Indwelling Catheter Indwelling Catheter ABP, PAP, CO, CI - Last Documented Arterial Blood Pressure 116/45 - Exam Sedated, with an orally placed endotracheal tube and NG tube noted. HEENT examination is grossly unremarkable. Mucous membranes are dry. Teeth are in very poor repair. Neck supple. Full range of motion. No adenopathy thyromegaly or neck vein distention. Cardiovascular examination reveals regular rhythm rate. S1-S2 normal. No S3 or S4. No discernible murmur noted. Heart rate 97 bpm. Lungs reveal scattered crackles and rhonchi. No wheezes. Breath sounds equal. Saturations are 94 %. Abdomen soft, without bowel sounds. No masses. Extremities are intact. No cyanosis clubbing or edema. Skin is jaundiced. Neurologic examination cannot be assessed at this time. - Labs CBC & Chem 7: 10/21/23 05:19 10/21/23 05:19 Labs: Abnormal Lab Results - Last 24 Hours (Table) 10/20/23 10/21/23 10/21/23 Range/Units 17:58 00:34 05:12 RBC (4.30-5.90) m/uL Hgb (13.0-17.5) gm/dL Hct (39.0-53.0) % MCHC (31.0-37.0) g/dL RDW (11.5-15.5) % Plt Count (150-450) k/uL ABG pH 7.47 H (7.35-7.45) ABG pO2 64 L (83-108) mmHg ABG HCO3 27 H (21-25) mmol/L ABG Total CO2 28 H (19-24) mmol/L ABG O2 Saturation 93.2 L (94-97) % BUN (9-20) mg/dL Creatinine (0.66-1.25) mg/dL Glucose (74-99) mg/dL POC Glucose (mg/dL) 135 H 123 H (70-110) mg/dL Calcium (8.4-10.2) mg/dL Ammonia (<30) umol/L 10/21/23 10/21/23 10/21/23 Range/Units 05:19 05:19 05:49 RBC 2.67 L (4.30-5.90) m/uL Hgb 7.0 L (13.0-17.5) gm/dL Hct 22.8 L (39.0-53.0) % MCHC 30.8 L (31.0-37.0) g/dL RDW 19.7 H (11.5-15.5) % Plt Count 109 L (150-450) k/uL ABG pH (7.35-7.45) ABG pO2 (83-108) mmHg ABG HCO3 (21-25) mmol/L ABG Total CO2 (19-24) mmol/L ABG O2 Saturation (94-97) % BUN 54 H (9-20) mg/dL Creatinine 1.76 H (0.66-1.25) mg/dL Glucose 101 H (74-99) mg/dL POC Glucose (mg/dL) (70-110) mg/dL Calcium 7.7 L (8.4-10.2) mg/dL Ammonia 56 H (<30) umol/L 10/21/23 Range/Units 05:59 RBC (4.30-5.90) m/uL Hgb (13.0-17.5) gm/dL Hct (39.0-53.0) % MCHC (31.0-37.0) g/dL RDW (11.5-15.5) % Plt Count (150-450) k/uL ABG pH (7.35-7.45) ABG pO2 (83-108) mmHg ABG HCO3 (21-25) mmol/L ABG Total CO2 (19-24) mmol/L ABG O2 Saturation (94-97) % BUN (9-20) mg/dL Creatinine (0.66-1.25) mg/dL Glucose (74-99) mg/dL POC Glucose (mg/dL) 116 H (70-110) mg/dL Calcium (8.4-10.2) mg/dL Ammonia (<30) umol/L Microbiology - Last 24 Hours (Table) 10/19/23 12:15 Blood Culture Gram Stain - Preliminary Blood Blood Culture - Preliminary 10/19/23 12:10 Gram Stain - Final Sputum Sputum Culture - Final 10/19/23 12:19 Blood Culture - Preliminary Blood Assessment and Plan Assessment: S/P intubation and mechanical ventilation for impending respiratory failure, secondary to fulminant liver failure, October 19, 2023. Postop day #5, S/P repair of incarcerated umbilical hernia. Chronic liver disease/cirrhosis, and ascites, secondary to previous significant alcohol abuse. Anion gap metabolic acidosis, resolved. Chronic kidney disease, rule out hepatorenal syndrome. Severe hyperammonemia. Lactic acidosis. History of hyperlipidemia. History of hypertension. History of liver cirrhosis. Recurrent ascites, status post frequent paracentesis abdominis. History of depression and PTSD. History of chronic tobacco use. Anemia of chronic disease. Plan: Plan dated October 19, 2023. The patient was transferred down to the intensive care unit, where he was evaluated. The patient is electively intubated, and we also placed a left subclavian triple-lumen catheter, and a right radial art line, for better monitoring and management. Labs, x-rays, medications are reviewed. The patient is initially placed on vent settings of volume assist-control, rate 20, tidal volume 400, FiO2 100%, PEEP of 5. Additional recommendations and suggestions are forthcoming. The medication list is reviewed. Unnecessary medications were discontinued. I did speak to the surgeon about this patient. If the patient shows further deterioration, will attempt to transfer the patient to a facility that deals in patients with severe liver disease. Plan dated October 20, 2023. The patient is seen again today in room 263. He was transferred down to the intensive care unit yesterday, where, he was intubated, and had an arterial line placed, and a central line placed. The patient has hepatic encephalopathy, and more recently, has been having issues with low blood pressure. He was started on norepinephrine, which is currently running at 3 mcg/min. He continues on propofol, and also D5W with 3 ampoules of sodium bicarbonate at 80 cc an hour. Tube feedings will be started today. A head CT which was done yesterday was neg ative. The patient will get a EEG performed. In addition, I have asked the nurse to give the patient Ativan 2 mg, to see if the tremors stop. Plan dated October 21, 2023. The patient is again seen in the intensive care unit. He remains on mechanical ventilator. He is currently on propofol, a sodium bicarbonate drip, fentanyl, and tube feedings with vital AF. He continues on Rocephin. Blood gases show pO2 of 64, pCO2 37, pH is 7.47. Labs, x-rays, medications are all reviewed. Prognosis is guarded. Culture data is thus far negative. We will continue to follow make recommendations along the way. The patient's overall prognosis remains extremely poor. Time with Patient: Greater than 30
[2023-10-21] MEDS: LACTATED RINGERS 1,000 ML IV SCH (11:40)
--- NOTE | 2023-10-21 11:47 | P.PN ---
Subjective Patient is seen for follow-up for acute kidney injury, hepatorenal syndrome. patient was transferred to the ICU due to Unresponsiveness. He was eventually intubated. Ammonia was elevated at 259 and has decreased to 56 today. Currently maintained on IV fluids, IV bicarb. Also receiving midodrine and Sandostatin along with albumin for hepatorenal syndrome. Serum creatinine has decreased to 1.7 today. urine output at 20 -30 mL an hour Objective - Vital Signs Vital signs: Vital Signs Temp 99.5 F 10/21/23 08:00 Pulse 97 10/21/23 10:00 Resp 20 10/21/23 10:00 BP 99/48 10/21/23 10:00 Pulse Ox 94 L 10/21/23 10:00 FiO2 40 10/21/23 08:32 Intake & Output 10/20/23 10/21/23 10/21/23 18:59 06:59 18:59 Intake Total 4884.515 9411.324 518.443 Output Total 540 405 90 Balance 1058.256 756.324 428.443 Weight 76.1 kg 76.1 kg Intake: IV 1110 960 370 Albumin Human 25% 50 ml @ 100 50 mls/hr IV DAILY [facility] Rx#:[id number] Dextrose 5% in Water 1, 960 960 320 000 ml @ 80 mls/hr IV . [id number] [facility] with Sodium Bicarb (1 Meq/ml) 150 ml Rx#:[id number] cefTRIAXone 2 gm In 50 50 Sodium Chloride 0.9% 50 ml @ 100 mls/hr IVPB Q24HR [facility] Rx#:[id number] Intake, IV Titration 378.256 191.324 119.443 Amount Norepinephrine 4 mg In 110.515 25.661 Sodium Chloride 0.9% 250 ml @ 0.03 MCG/KG/MIN 9. 201 mls/hr IV .Q24H [facility] Rx#:[id number] fentaNYL (PF). 1,000 mcg 3.678 In Sodium Chloride 0.9% 80 ml @ 0.5 MCG/KG/HR 3. 805 mls/hr IV .Q24H [facility] Rx#:[id number] propofoL 1,000 mg In 267.741 187.646 93.782 Empty Bag 1 bag @ 15 MCG/ KG/MIN 7.245 mls/hr IV . [id number] [facility] Rx#:[id number] Tube Feeding 10 10 29 Other 100 Output: Gastric Drainage 60 Urine 540 345 90 Other: Voiding Method Indwelling Catheter Indwelling Catheter Indwelling Catheter ABP, PAP, CO, CI - Last Documented Arterial Blood Pressure 116/45 - Exam Patient is sedated and on the vent Examination of the heart S1 and S2 Examination of the lungs bilateral breath sounds are heard Abdomen is soft , incision is dressed Examination of lower extremities shows no significant edema ADVERTISING PHOTOGRAPHER exam cannot be performed - Labs CBC & Chem 7: 10/21/23 05:19 10/21/23 05:19 Labs: Abnormal Lab Results - Last 24 Hours (Table) 10/20/23 10/21/23 10/21/23 Range/Units 17:58 00:34 05:12 RBC (4.30-5.90) m/uL Hgb (13.0-17.5) gm/dL Hct (39.0-53.0) % MCHC (31.0-37.0) g/dL RDW (11.5-15.5) % Plt Count (150-450) k/uL ABG pH 7.47 H (7.35-7.45) ABG pO2 64 L (83-108) mmHg ABG HCO3 27 H (21-25) mmol/L ABG Total CO2 28 H (19-24) mmol/L ABG O2 Saturation 93.2 L (94-97) % BUN (9-20) mg/dL Creatinine (0.66-1.25) mg/dL Glucose (74-99) mg/dL POC Glucose (mg/dL) 135 H 123 H (70-110) mg/dL Calcium (8.4-10.2) mg/dL Ammonia (<30) umol/L 10/21/23 10/21/23 10/21/23 Range/Units 05:19 05:19 05:49 RBC 2.67 L (4.30-5.90) m/uL Hgb 7.0 L (13.0-17.5) gm/dL Hct 22.8 L (39.0-53.0) % MCHC 30.8 L (31.0-37.0) g/dL RDW 19.7 H (11.5-15.5) % Plt Count 109 L (150-450) k/uL ABG pH (7.35-7.45) ABG pO2 (83-108) mmHg ABG HCO3 (21-25) mmol/L ABG Total CO2 (19-24) mmol/L ABG O2 Saturation (94-97) % BUN 54 H (9-20) mg/dL Creatinine 1.76 H (0.66-1.25) mg/dL Glucose 101 H (74-99) mg/dL POC Glucose (mg/dL) (70-110) mg/dL Calcium 7.7 L (8.4-10.2) mg/dL Ammonia 56 H (<30) umol/L 10/21/23 Range/Units 05:59 RBC (4.30-5.90) m/uL Hgb (13.0-17.5) gm/dL Hct (39.0-53.0) % MCHC (31.0-37.0) g/dL RDW (11.5-15.5) % Plt Count (150-450) k/uL ABG pH (7.35-7.45) ABG pO2 (83-108) mmHg ABG HCO3 (21-25) mmol/L ABG Total CO2 (19-24) mmol/L ABG O2 Saturation (94-97) % BUN (9-20) mg/dL Creatinine (0.66-1.25) mg/dL Glucose (74-99) mg/dL POC Glucose (mg/dL) 116 H (70-110) mg/dL Calcium (8.4-10.2) mg/dL Ammonia (<30) umol/L Microbiology - Last 24 Hours (Table) 10/19/23 12:15 Blood Culture Gram Stain - Preliminary Blood Blood Culture - Preliminary 10/19/23 12:10 Gram Stain - Final Sputum Sputum Culture - Final 10/19/23 12:19 Blood Culture - Preliminary Blood Assessment and Plan Assessment: 1. Acute kidney injury, ATN from hypotension versus hepatorenal syndrome. Maintained on midodrine, Sandostatin and has been receiving albumin. No evidence of obstruction on computed tomography scan on 09/04/2023. 2. Non- gap metabolic acidosis associated with acute kidney injury. 3. Mild hyperkalemia associated with acute kidney injury and metabolic acidosis, improved 4. History of EtOH-related liver cirrhosis. 5. Status post open repair of incarcerated umbilical hernia and umbilectomy on 10/16/2023. 6. Anemia and with no active bleeding noted. Check iron profile 7. Hepatic encephalopathy with serum ammonia at 259, decreased to 56 with lactulose 8. Acute hypoxic respiratory failure, currently on the vent Plan: DC IV bicarb. Switch to Ringer lactate. Continue with midodrine and Sandostatin along with albumin. Repeat labs in a.m. Avoid nephrotoxic agents. continue with lactulose
--- NOTE | 2023-10-21 13:48 | P.PN ---
Subjective Progress Note Date: 10/21/23 CHIEF COMPLAINT: Incarcerated umbilical hernia HISTORY OF PRESENT ILLNESS: Postop day #5 status post open repair of incarcerated umbilical hernia, umbillectomy. Patient remains in the ICU intubated and on mechanical ventilation. He is on Levophed. He did start tube feeds yesterday and is currently tolerating them. CHRIS drain 10 mL serosanguineous output. No new bleeding through G-tube noted today. In canister there is some water down blood noted. Hemoglobin stable at 7.0 WBC is down from 13-10.3 Ammonia 56 does have fecal management system in place PHYSICAL EXAM: VITAL SIGNS: Reviewed. GENERAL: intubated ABDOMEN: Soft. mildly distended. Prevena wound vac in tact. ASSESSMENT: 1. Incarcerated umbilical hernia status post repair 2. Respiratory failure requiring mechanical ventilation 3. Elevated ammonia level 4. Chronic liver disease and liver cirrhosis with prior alcohol abuse 5. Hepatic encephalopathy PLAN: -Continue ICU management -Continue supportive care -Continue to monitor output from OG tube -Continue PPI -Prognosis is guarded Physician Mobile Ui Designer note has been reviewed by physician. Signing provider agrees with the documented findings, assessment, and plan of care. I have personally seen and examined the patient, reviewed the [employer]PERATOR [employer] /PAs history, exam and MDM and agree with the assessment and plan as written. Based on total visit time, I have performed more than 50% of the visit. As above: Patient stable on the ventilator. Tolerating tube feeds low-dose. No bleeding when residuals were checked from the nasogastric tube. CHRIS drain serosanguineous and not large-volume. Continue antibiotics. Will follow. Objective - Vital Signs Vital signs: Vital Signs Temp 98.1 F 10/21/23 12:00 Pulse 87 10/21/23 12:47 Resp 46 H 10/21/23 12:00 BP 104/43 10/21/23 12:00 Pulse Ox 94 L 10/21/23 12:00 FiO2 40 10/21/23 12:29 Intake & Output 10/20/23 10/21/23 10/21/23 18:59 06:59 18:59 Intake Total 3606.630 2214.324 870.235 Output Total 540 405 150 Balance 1058.256 756.324 720.235 Weight 76.1 kg 76.1 kg Intake: IV 1110 960 575 Albumin Human 25% 50 ml @ 100 50 mls/hr IV DAILY [facility] Rx#:[id number] Albumin Human 25% 50 ml @ 50 50 mls/hr IV DAILY@1000 [facility] Rx#:[id number] Dextrose 5% in Water 1, 960 960 400 000 ml @ 80 mls/hr IV . [id number] [facility] with Sodium Bicarb (1 Meq/ml) 150 ml Rx#:[id number] Lactated Ringers 1,000 ml 75 @ 75 mls/hr IV .[id number] [facility] Rx#:[id number] cefTRIAXone 2 gm In 50 50 Sodium Chloride 0.9% 50 ml @ 100 mls/hr IVPB Q24HR [facility] Rx#:[id number] Intake, IV Titration 378.256 191.324 266.235 Amount Norepinephrine 4 mg In 110.515 75.450 Sodium Chloride 0.9% 250 ml @ 0.03 MCG/KG/MIN 9. 201 mls/hr IV .Q24H [facility] Rx#:[id number] fentaNYL (PF). 1,000 mcg 3.678 In Sodium Chloride 0.9% 80 ml @ 0.5 MCG/KG/HR 3. 805 mls/hr IV .Q24H [facility] Rx#:[id number] propofoL 1,000 mg In 267.741 187.646 190.785 Empty Bag 1 bag @ 15 MCG/ KG/MIN 7.245 mls/hr IV . [id number] [facility] Rx#:[id number] Tube Feeding 10 10 29 Other 100 Output: Gastric Drainage 60 Urine 540 345 150 Other: Voiding Method Indwelling Catheter Indwelling Catheter Indwelling Catheter ABP, PAP, CO, CI - Last Documented Arterial Blood Pressure 121/51 - Labs CBC & Chem 7: 10/21/23 05:19 10/21/23 05:19 Labs: Abnormal Lab Results - Last 24 Hours (Table) 10/20/23 10/21/23 10/21/23 Range/Units 17:58 00:34 05:12 RBC (4.30-5.90) m/uL Hgb (13.0-17.5) gm/dL Hct (39.0-53.0) % MCHC (31.0-37.0) g/dL RDW (11.5-15.5) % Plt Count (150-450) k/uL ABG pH 7.47 H (7.35-7.45) ABG pO2 64 L (83-108) mmHg ABG HCO3 27 H (21-25) mmol/L ABG Total CO2 28 H (19-24) mmol/L ABG O2 Saturation 93.2 L (94-97) % BUN (9-20) mg/dL Creatinine (0.66-1.25) mg/dL Glucose (74-99) mg/dL POC Glucose (mg/dL) 135 H 123 H (70-110) mg/dL Calcium (8.4-10.2) mg/dL Ammonia (<30) umol/L 10/21/23 10/21/23 10/21/23 Range/Units 05:19 05:19 05:49 RBC 2.67 L (4.30-5.90) m/uL Hgb 7.0 L (13.0-17.5) gm/dL Hct 22.8 L (39.0-53.0) % MCHC 30.8 L (31.0-37.0) g/dL RDW 19.7 H (11.5-15.5) % Plt Count 109 L (150-450) k/uL ABG pH (7.35-7.45) ABG pO2 (83-108) mmHg ABG HCO3 (21-25) mmol/L ABG Total CO2 (19-24) mmol/L ABG O2 Saturation (94-97) % BUN 54 H (9-20) mg/dL Creatinine 1.76 H (0.66-1.25) mg/dL Glucose 101 H (74-99) mg/dL POC Glucose (mg/dL) (70-110) mg/dL Calcium 7.7 L (8.4-10.2) mg/dL Ammonia 56 H (<30) umol/L 10/21/23 Range/Units 05:59 RBC (4.30-5.90) m/uL Hgb (13.0-17.5) gm/dL Hct (39.0-53.0) % MCHC (31.0-37.0) g/dL RDW (11.5-15.5) % Plt Count (150-450) k/uL ABG pH (7.35-7.45) ABG pO2 (83-108) mmHg ABG HCO3 (21-25) mmol/L ABG Total CO2 (19-24) mmol/L ABG O2 Saturation (94-97) % BUN (9-20) mg/dL Creatinine (0.66-1.25) mg/dL Glucose (74-99) mg/dL POC Glucose (mg/dL) 116 H (70-110) mg/dL Calcium (8.4-10.2) mg/dL Ammonia (<30) umol/L Microbiology - Last 24 Hours (Table) 10/19/23 12:15 Blood Culture Gram Stain - Preliminary Blood Blood Culture - Preliminary 10/19/23 12:10 Gram Stain - Final Sputum Sputum Culture - Final 10/19/23 12:19 Blood Culture - Preliminary Blood
[2023-10-21] MEDS: ALBUMIN HUMAN 25% 50 ML in EMPTY BAG 1 BAG IVPB ONE (15:31)
[2023-10-21 17:25] LABS: Glucose,Whole Blood 141 mg/dL (70-110)
[2023-10-22 00:13] LABS: Glucose,Whole Blood 141 mg/dL (70-110)
[2023-10-22 03:58] LABS: Anisocytosis Slight; HCT 22.2 % (39.0-53.0); Hypochromasia Marked; MCH 25.9 pg (25.0-35.0); MCHC 29.8 g/dL (31.0-37.0); MCV 86.7 fL (80.0-100.0); Mean Platelet Volume 8.6; RBC 2.56 m/uL (4.30-5.90); RDW 19.8 % (11.5-15.5); WBC 10.5 k/uL (3.8-10.6)
[2023-10-22 04:15] LABS: HGB 6.6 gm/dL (13.0-17.5)
[2023-10-22 04:24] LABS: ALT 9 U/L (4-49); AST 22 U/L (17-59); African American GFR (CKD) 53 (>60 ml/min/1.73 sqM); Albumin 2.8 g/dL (3.5-5.0); Alkaline Phosphatase 54 U/L (38-126); Anion Gap 6 mmol/L; Blood Urea Nitrogen 53 mg/dL (9-20); Calcium 7.4 mg/dL (8.4-10.2); Carbon Dioxide 26 mmol/L (22-30); Chloride 106 mmol/L (98-107); Glucose 134 mg/dL (74-99); Non-African American GFR(CKD) 46 (>60 ml/min/1.73 sqM); Potassium 3.4 mmol/L (3.5-5.1); Sodium 138 mmol/L (137-145); Total Bilirubin 1.4 mg/dL (0.2-1.3); Total Protein 4.9 g/dL (6.3-8.2)
[2023-10-22 04:44] LABS: Platelet Count 97 k/uL (150-450)
[2023-10-22 05:32] LABS: ABG Base Excess 4.2 mmol/L; ABG HCO3 30 mmol/L (21-25); ABG Oxygen Saturation 61.6 % (94-97); ABG PCO2 48 mmHg (35-45); ABG PH 7.39 (7.35-7.45); ABG TCO2 31 mmol/L (19-24); Allen Test Performed? Yes
[2023-10-22] MEDS: POTASSIUM BICARBONATE/CIT AC 20 MEQ TABLET.EFF NG-TUBE SCH ×2 (05:36→14:53)
[2023-10-22 05:52] LABS: ABG PO2 36 mmHg (83-108)
[2023-10-22 05:57] LABS: Allen Test Performed? Yes
[2023-10-22 06:01] LABS: ABG PCO2 45 mmHg (35-45); ABG PH 7.41 (7.35-7.45)
[2023-10-22 06:02] LABS: ABG Base Excess 3.4 mmol/L; ABG HCO3 28 mmol/L (21-25); ABG Oxygen Saturation 93.5 % (94-97); ABG PO2 68 mmHg (83-108); ABG TCO2 30 mmol/L (19-24)
[2023-10-22 06:39] LABS: Glucose,Whole Blood 140 mg/dL (70-110)
--- NOTE | 2023-10-22 08:46 | XR ---
EXAMINATION TYPE: XR chest 1V portable DATE OF EXAM: 10/22/2023 5:41 AM CLINICAL INDICATION:Male, 43 years old with history of Tube placement; [facility] COMPARISON: Chest radiographs from 10/21/2023 TECHNIQUE: XR chest 1V portable Frontal view of the chest. FINDINGS: Lungs/Pleura: Airspace opacities in lung bases. There is no evidence of pleural effusion, focal conso lidation, or pneumothorax. Pulmonary vascularity: Unremarkable. Heart/mediastinum: Cardiomediastinal silhouette is unremarkable. Musculoskeletal: No acute osseous pathology. Other findings: None Lines/Tubes: Endotracheal tube with distal tip 5.3 cm above the nathaniel. Nasogastric tube with its distal tip and side-port projecting under the diaphragm. Left internal jugular central venous catheter with distal tip at the cavoatrial junction. IMPRESSION: 1. Airspace opacities in the lung bases have worsened on the right correlate for developing pneumoni a. 2. Nasogastric tube in appropriate placement. 3. Left central venous catheter with tip in appropriate placement. 4. Endotracheal tube with tip in appropriate placement.
--- NOTE | 2023-10-22 10:11 | P.PN ---
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 He presented to the emergency department on 10/16/23 with a chief complaint of intractable abdominal pain and reports umbilical hernia is now nonreducible. Vital signs upon arrival showed BP 115/69, HR 76, RR 18, T 97.8 F, and SpO2 100% on RA. EKG showed normal sinus rhythm at 63 bpm with no noted T wave or ST abnormalities. CBC showing bicytopenia with Hg 7.9 and Plt 98. Coagulation profile showed PT of 14.7 and INR 1.4. BMP showing Na 133, Cl 110, bicarb of 13, and anion gap of 10, BUN of 35, creatinine 1.65, GFR 51. Blood glucose was 119. Lactic acid was 1.8. Liver profile was unremarkable. Patient was evaluated by general surgeon, he is being admitted to general surgery team with plans to be taken to the OR for open surgical repair of incarcerated umbilical hernia. We were consulted for preoperative medical clearance and postoperative medical management. On 10/15 patient underwent open repair of incarcerated umbilical hernia with umbillectomy. Renal function continued to worsen. Patient was started on albumin and octreotide. Midodrine was increased and Nephrology was consulted. Patient was started on bicarb drip. Patient became encephalopathic on 10/18. St arted on rectal lactulose and transferred to medical ICU. His mentation continued to worsen, and he was intubated. Also started on Rocephin for concerns of SBP on 10/18. There is concern for GI bleed as well. 10/20 Patient was seen and examined. Intubated. Generalized tremors noted on 10/19, CT brain was negative for acute pathology and EEG showed moderate to severe background slowing. Started on Fentanyl drip at 1 mcg/kg/hr. Levophed running at 0.05 mcg/kg/min. Sedated with propofol at 50 mcg/kg/min. Currently on NS at 80 cc/hr. Antibiotics include Rocephin 2g IV QD (D3). CBC Hg 7, Hct 22.8, Plt 109. ABG pH 7.47, pCO2 37. CMP BUN 54, Cr 1.76, glu 101, Ca 7.7. Ammonia 56. CXR shows no consolidation. 10/21 Patient was seen and examined. Intubated. Fentanyl drip at 1 mcg/kg/hr. Levophed running at 0.15 mcg/kg/min. Sedated with propofol at 50 mcg/kg/min. Currently on LR at 75 cc/hr and NS at 10 cc/hr. CBC Hg 6.6, Hct 22.2, Plt 97. ABG pH 7.41, pCO2 45. CMP K 3.4, BUN 53, Cr 1.78, glu 134, Ca 7.4, T. Bili 1.4, alb 2.8. CXR shows right sided infiltrates. Antibiotics switched from Rocephin to Zosyn (D1). Plans to transfuse 1 unit PRBC. General: Intubated sedated Derm: Warm, dry, jaundice Head: Atraumatic, normocephalic, symmetric Eyes: Scleral icterus, pupils equal and reactive Mouth: No lip lesion, mucus membranes moist Cardiovascular: S1S2 reg, no murmur Lungs: CTA bilateral, no rhonchi, no rales, no accessory muscle use, intubated Abdominal: Slightly distended, nontender to palpation, no guarding, no appreciable organomegaly, midline dressing clean, dry, intact Ext: Gross muscle atrophy Neuro: Sedated Psych: Unable to assess Acute hepatic encephalopathy: Lactulose 20g PO TID. Suspected spontaneous bacterial peritonitis: Ascitic fluid culture negative. BCx negative. Sputum Cx negative. Rocephin switched to Zosyn 3.375g IV TID (D1). Pneumonia: Started on Zosyn 10/21 should cover for both SBP and possible aspiration PNA. Septic shock likely secondary to above: Antibiotics as above. Maintain Levophed to MAP > 65. Telemetry monitoring. Acute GI bleed: 1 unit PRBC 10/21. Surgery on board recommending continued monitoring. Protonix 40 mg IV QD. Transfuse if Hg < 7. IVAN, secondary to suspected hepatorenal syndrome, history of CKD stage III: Nephrology recommends switching bicarb drip to LR, midodrine and Sandostatin along with albumin. Tremors: CT brain negative. EEG mod-severe encaphalopathy. History of advanced liver cirrhosis: Continue Albumin 12.5g IV QD, Midodrine 15 mg PO TID, Octreotide 100mcg subQ every 8 hours. Bicytopenia secondary to liver cirrhosis Elevated INR Incarcerated/strangulated umbilical hernia status post open repair: Management per general surgery Resolved: Metabolic and lactic acidosis CODE STATUS: FULL CODE DVT Prophylaxis: SCD GI Prophylaxis: Protonix IV Designated medical POA if patient is not able to make medical decisions for t hemselves: I have reviewed the following law firm consultant notes: I have reviewed the results of the following tests: CBC, CMP, ABG I have ordered the following tests: CBC and CMP in the AM. I have discussed the care of this patient with the following independent historian: I have independently interpreted the following test below: CXR I have discussed the management of this patient with the following physician: Objective - Vital Signs Vital signs: Vital Signs Temp 98 F 10/22/23 06:34 Pulse 81 10/22/23 09:10 Resp 20 10/22/23 09:01 BP 114/37 10/22/23 07:00 Pulse Ox 94 L 10/22/23 07:00 FiO2 40 10/22/23 08:02 Intake & Output 10/21/23 10/22/23 10/22/23 18:59 06:59 18:59 Intake Total 3345.241 6013.065 385 Output Total 460 1330 40 Balance 1347.956 838.065 345 Weight 84.4 kg Intake: IV 1025 900 75 Albumin Human 25% 50 ml @ 50 50 mls/hr IV DAILY@1000 IRINA Rx#:[id number] Dextrose 5% in Water 1, 400 000 ml @ 80 mls/hr IV . [id number] IRINA with Sodium Bicarb (1 Meq/ml) 150 ml Rx#:[id number] Lactated Ringers 1,000 ml 525 900 75 @ 75 mls/hr IV .[id number] IRINA Rx#:[id number] cefTRIAXone 2 gm In 50 Sodium Chloride 0.9% 50 ml @ 100 mls/hr IVPB Q24HR IRINA Rx#:[id number] Intake, IV Titration 581.956 662.065 Amount Norepinephrine 4 mg In 154.734 378.927 Sodium Chloride 0.9% 250 ml @ 0.03 MCG/KG/MIN 9. 201 mls/hr IV .Q24H IRINA Rx#:[id number] fentaNYL (PF). 1,000 mcg 68.997 In Sodium Chloride 0.9% 80 ml @ 0.5 MCG/KG/HR 3. 805 mls/hr IV .Q24H IRINA Rx#:[id number] propofoL 1,000 mg In 358.225 283.138 Empty Bag 1 bag @ 15 MCG/ KG/MIN 7.245 mls/hr IV . [id number] IRINA Rx#:[id number] Tube Feeding 201 516 Blood Product 0 310 Rc As-1 Unit 0 310 [id number] Other 90 Output: Drainage 10 Lower Abdomen 10 Urine 360 330 30 Stool 100 1000 Other: Voiding Method Indwelling Catheter Indwelling Catheter ABP, PAP, CO, CI - Last Documented Arterial Blood Pressure 75/45 - Labs CBC & Chem 7: 10/22/23 03:08 10/22/23 03:08 Labs: Abnormal Lab Results - Last 24 Hours (Table) 10/21/23 10/22/23 10/22/23 Range/Units 17:12 00:12 03:08 RBC (4.30-5.90) m/uL Hgb (13.0-17.5) gm/dL Hct (39.0-53.0) % MCHC (31.0-37.0) g/dL RDW (11.5-15.5) % Plt Count (150-450) k/uL ABG pCO2 (35-45) mmHg ABG pO2 (83-108) mmHg ABG HCO3 (21-25) mmol/L ABG Total CO2 (19-24) mmol/L ABG O2 Saturation (94-97) % Potassium (3.5-5.1) mmol/L BUN (9-20) mg/dL Creatinine (0.66-1.25) mg/dL Glucose (74-99) mg/dL POC Glucose (mg/dL) 141 H 141 H (70-110) mg/dL Calcium (8.4-10.2) mg/dL Total Bilirubin (0.2-1.3) mg/dL Total Protein (6.3-8.2) g/dL Albumin (3.5-5.0) g/dL Crossmatch See Detail 10/22/23 10/22/23 10/22/23 Range/Units 03:08 03:08 05:24 RBC 2.56 L (4.30-5.90) m/uL Hgb 6.6 L* (13.0-17.5) gm/dL Hct 22.2 L (39.0-53.0) % MCHC 29.8 L (31.0-37.0) g/dL RDW 19.8 H (11.5-15.5) % Plt Count 97 L (150-450) k/uL ABG pCO2 48 H (35-45) mmHg ABG pO2 36 L* (83-108) mmHg ABG HCO3 30 H (21-25) mmol/L ABG Total CO2 31 H (19-24) mmol/L ABG O2 Saturation 61.6 L (94-97) % Potassium 3.4 L (3.5-5.1) mmol/L BUN 53 H (9-20) mg/dL Creatinine 1.78 H (0.66-1.25) mg/dL Glucose 134 H (74-99) mg/dL POC Glucose (mg/dL) (70-110) mg/dL Calcium 7.4 L (8.4-10.2) mg/dL Total Bilirubin 1.4 H (0.2-1.3) mg/dL Total Protein 4.9 L (6.3-8.2) g/dL Albumin 2.8 L (3.5-5.0) g/dL Crossmatch 10/22/23 10/22/23 Range/Units 05:55 06:37 RBC (4.30-5.90) m/uL Hgb (13.0-17.5) gm/dL Hct (39.0-53.0) % MCHC (31.0-37.0) g/dL RDW (11.5-15.5) % Plt Count (150-450) k/uL ABG pCO2 (35-45) mmHg ABG pO2 68 L (83-108) mmHg ABG HCO3 28 H (21-25) mmol/L ABG Total CO2 30 H (19-24) mmol/L ABG O2 Saturation 93.5 L (94-97) % Potassium (3.5-5.1) mmol/L BUN (9-20) mg/dL Creatinine (0.66-1.25) mg/dL Glucose (74-99) mg/dL POC Glucose (mg/dL) 140 H (70-110) mg/dL Calcium (8.4-10.2) mg/dL Total Bilirubin (0.2-1.3) mg/dL Total Protein (6.3-8.2) g/dL Albumin (3.5-5.0) g/dL Crossmatch Microbiology - Last 24 Hours (Table) 10/19/23 12:19 Blood Culture - Preliminary Blood 10/16/23 16:40 Anaerobic Culture - Final Abdomen 10/19/23 12:15 Blood Culture Gram Stain - Preliminary Blood Blood Culture - Preliminary 10/19/23 12:10 Gram Stain - Final Sputum Sputum Culture - Final
--- NOTE | 2023-10-22 11:25 | P.PN ---
Subjective Progress Note Date: 10/22/23 Principal diagnosis: Respiratory failure. Pulmonary consult dated October 19, 2023. 44-year-old male who presented to the emergency department, on October 15, complaining of abdominal pain. The patient has a history of chronic liver disease from alcohol abuse, with cirrhosis and ascites, and need for periodic paracentesis abdominis. The patient has a known history of a umbilical hernia, which she is able to typically reduce, but because he was not able to reduce it, he came in to be evaluated. The patient ended up having surgery, last Thursday, on the , and initially was doing okay. This morning I was called by the surgeon, and my charge nurse in the intensive care unit, to say that the patient was doing poorly, and should be transferred down to the intensive care unit for further monitoring and management. The patient was very lethargic, and looked very unstable, with impending respiratory failure. When I first saw the patient he was on room air, and receiving an IV with 3 ampoules of sodium bicarb in D5W at 80 cc an hour. I asked for stat blood gas, when the patient came to the intensive care unit. His pO2 was 40, pCO2 27, pH is 7.41. After evaluating the patient, I decided to intubate the patient which we did, and place a central line and arterial line, both of which we did. Current laboratory data includes a blood gas showing a pO2 of 393, pCO2 41, pH is 7.26. Saturations are 100%. White count is 18.9, hemoglobin 8.3, hematocrit 26.3, and a platelet count of 156,000. Sodium 137, potassium 4.5, chlorides 106, CO2 14, anion gap 17, BUN 69.6, and creatinine 3. Glucose was 126. Lactic acid was 2.8. Bilirubin was 1.5. Ammonia level was up to 259. Cultures of the ascitic fluid are thus far negative. Chest x-ray shows endotracheal tube to be in good position. Central line is in good position, without complication. Progress note dated October 20, 2023. The patient is seen today in room 263. The patient was intubated, and lined yesterday, for respiratory failure. The patient has a history of chronic liver disease, with cirrhosis, ascites, and encephalopathy. Currently, the patient is on volume assist-control, rate 20, tidal volume 400, FiO2 40%, PEEP of 5. Blood gases show pO2 108, pCO2 28, pH is 7.46. This blood gases consistent with a mild respiratory alkalosis. The patient is getting D5W with 3 ampoules of sodium bicarbonate at 80 cc an hour. The patient is getting norepinephrine at 3 mcg/min, propofol at 50 mcg/kg/min. The patient has been having tremor-like activity, and could be seizing. The brain CT was negative. The patient will have tube feedings beginning today. We have ordered an EEG. In addition, I have asked the nurse to give the patient 2 mg of Ativan, to see if the tremors cease. White count is 13, hemoglobin 7, hematocrit 23, platelet count 106,000. Sodium 138, potassium 3.5, chlorides 111, CO2 17, anion gap 10, BUN 63, creatinine 2.27. Glucose is 160. Ammonia level is down to 49. Albumin is 3.1. Thus far, cultures are negative. The patient's chest x-ray shows the endotracheal tube to be high in the trachea, and have asked respiratory therapy to push it down to 1.5 cm. Progress note dated October 21, 2023. The patient is seen today in room 263. He remains on mechanical ventilator. He is on volume assist-control, rate 20, tidal volume 400, FiO2 40%, PEEP of 5. Blood gases show pO2 of 64, pCO2 37, pH is 7.47. The patient is getting propofol at 50 mcg/kg/min, D5W with 3 ampoules of bicarbonate at 80 cc an hour, fentanyl drip at 1 mcg/kg/h, vital AF at 29 cc an hour, with a goal of 43 cc an hour. The patient also continues on Rocephin. White count is 10.3, hemoglobin 7, hematocrit 22.8, and platelet count 109,000. Sodium 137, potassium 3.7, chlorides 104, CO2 24, BUN 54, and creatinine 1.76. Glucose is 116. Ammonia level is 56. Calcium is 7.7. Cultures are thus far negative. Chest x-ray is unchanged. There is a small left pleural effusion. NG tube, endotracheal tube, and central venous catheter, are in appropriate positions. Progress note dated October 22, 2023. 43-year-old male seen again in the intensive care unit, room 263. He remains on the mechanical ventilator. The patient's ventilator settings include volume assist-control, rate 20, tidal volume 400, FiO2 40%, PEEP of 5. Blood gases show pO2 68, pCO2 45, pH is 7.41. The patient is on norepinephrine at 9 mcg/min, propofol at 50 mcg/kg/min, lactated Ringer's at 75 cc an hour, and fent anyl at 1 mcg/kg/h. The patient is getting tube feedings with vital AF at 43 cc an hour, which is goal. Microbiologic studies are thus far negative. The patient is on Rocephin. He has received 1 unit of packed red blood cells. Current labs include a white count 10.5, hemoglobin 6.6, hematocrit 22.2, and a platelet count of 97,000. Sodium 138, potassium 3.4, chlorides 106, CO2 26, BUN 53, creatinine 1.78. Glucose is 140. Albumin is 2.8. Total bilirubin is 1.4. Chest x-ray shows air space opacities, in the lung bases, which have worsened. Lines and tubes are in good placement. Objective - Vital Signs Vital signs: Vital Signs Temp 98 F 10/22/23 06:34 Pulse 81 10/22/23 09:10 Resp 20 10/22/23 09:01 BP 114/37 10/22/23 07:00 Pulse Ox 94 L 10/22/23 07:00 FiO2 40 10/22/23 11:12 Intake & Output 10/21/23 10/22/23 10/22/23 18:59 06:59 18:59 Intake Total 5782.578 7792.065 385 Output Total 460 1330 40 Balance 1347.956 838.065 345 Weight 84.4 kg Intake: IV 1025 900 75 Albumin Human 25% 50 ml @ 50 50 mls/hr IV DAILY@1000 IRINA Rx#:[id number] Dextrose 5% in Water 1, 400 000 ml @ 80 mls/hr IV . [id number] IRINA with Sodium Bicarb (1 Meq/ml) 150 ml Rx#:[id number] Lactated Ringers 1,000 ml 525 900 75 @ 75 mls/hr IV .[id number] IRINA Rx#:[id number] cefTRIAXone 2 gm In 50 Sodium Chloride 0.9% 50 ml @ 100 mls/hr IVPB Q24HR IRINA Rx#:[id number] Intake, IV Titration 581.956 662.065 Amount Norepinephrine 4 mg In 154.734 378.927 Sodium Chloride 0.9% 250 ml @ 0.03 MCG/KG/MIN 9. 201 mls/hr IV .Q24H IRINA Rx#:[id number] fentaNYL (PF). 1,000 mcg 68.997 In Sodium Chloride 0.9% 80 ml @ 0.5 MCG/KG/HR 3. 805 mls/hr IV .Q24H IRINA Rx#:[id number] propofoL 1,000 mg In 358.225 283.138 Empty Bag 1 bag @ 15 MCG/ KG/MIN 7.245 mls/hr IV . [id number] IRINA Rx#:[id number] Tube Feeding 201 516 Blood Product 0 310 Rc As-1 Unit 0 310 [id number] Other 90 Output: Drainage 10 Lower Abdomen 10 Urine 360 330 30 Stool 100 1000 Other: Voiding Method Indwelling Catheter Indwelling Catheter ABP, PAP, CO, CI - Last Documented Arterial Blood Pressure 75/45 - Exam Sedated, with an orally placed endotracheal tube and NG tube noted. HEENT examination is grossly unremarkable. Mucous membranes are dry. Teeth are in very poor repair. Neck supple. Full range of motion. No adenopathy thyromegaly or neck vein distention. Cardiovascular examination reveals regular rhythm rate. S1-S2 normal. No S3 or S4. No discernible murmur noted. Heart rate 81 bpm. Lungs reveal scattered crackles and rhonchi. No wheezes. Breath sounds equal. Saturations are 95 %. Abdomen soft, without bowel sounds. No masses. Extremities are intact. No cyanosis clubbing or edema. Skin is jaundiced. Neurologic examination cannot be assessed at this time. - Labs CBC & Chem 7: 10/22/23 03:08 10/22/23 03:08 Labs: Abnormal Lab Results - Last 24 Hours (Table) 10/21/23 10/22/23 10/22/23 Range/Units 17:12 00:12 03:08 RBC (4.30-5.90) m/uL Hgb (13.0-17.5) gm/dL Hct (39.0-53.0) % MCHC (31.0-37.0) g/dL RDW (11.5-15.5) % Plt Count (150-450) k/uL ABG pCO2 (35-45) mmHg ABG pO2 (83-108) mmHg ABG HCO3 (21-25) mmol/L ABG Total CO2 (19-24) mmol/L ABG O2 Saturation (94-97) % Potassium (3.5-5.1) mmol/L BUN (9-20) mg/dL Creatinine (0.66-1.25) mg/dL Glucose (74-99) mg/dL POC Glucose (mg/dL) 141 H 141 H (70-110) mg/dL Calcium (8.4-10.2) mg/dL Total Bilirubin (0.2-1.3) mg/dL Total Protein (6.3-8.2) g/dL Albumin (3.5-5.0) g/dL Crossmatch See Detail 10/22/23 10/22/23 10/22/23 Range/Units 03:08 03:08 05:24 RBC 2.56 L (4.30-5.90) m/uL Hgb 6.6 L* (13.0-17.5) gm/dL Hct 22.2 L (39.0-53.0) % MCHC 29.8 L (31.0-37.0) g/dL RDW 19.8 H (11.5-15.5) % Plt Count 97 L (150-450) k/uL ABG pCO2 48 H (35-45) mmHg ABG pO2 36 L* (83-108) mmHg ABG HCO3 30 H (21-25) mmol/L ABG Total CO2 31 H (19-24) mmol/L ABG O2 Saturation 61.6 L (94-97) % Potassium 3.4 L (3.5-5.1) mmol/L BUN 53 H (9-20) mg/dL Creatinine 1.78 H (0.66-1.25) mg/dL Glucose 134 H (74-99) mg/dL POC Glucose (mg/dL) (70-110) mg/dL Calcium 7.4 L (8.4-10.2) mg/dL Total Bilirubin 1.4 H (0.2-1.3) mg/dL Total Protein 4.9 L (6.3-8.2) g/dL Albumin 2.8 L (3.5-5.0) g/dL Crossmatch 10/22/23 10/22/23 Range/Units 05:55 06:37 RBC (4.30-5.90) m/uL Hgb (13.0-17.5) gm/dL Hct (39.0-53.0) % MCHC (31.0-37.0) g/dL RDW (11.5-15.5) % Plt Count (150-450) k/uL ABG pCO2 (35-45) mmHg ABG pO2 68 L (83-108) mmHg ABG HCO3 28 H (21-25) mmol/L ABG Total CO2 30 H (19-24) mmol/L ABG O2 Saturation 93.5 L (94-97) % Potassium (3.5-5.1) mmol/L BUN (9-20) mg/dL Creatinine (0.66-1.25) mg/dL Glucose (74-99) mg/dL POC Glucose (mg/dL) 140 H (70-110) mg/dL Calcium (8.4-10.2) mg/dL Total Bilirubin (0.2-1.3) mg/dL Total Protein (6.3-8.2) g/dL Albumin (3.5-5.0) g/dL Crossmatch Microbiology - Last 24 Hours (Table) 10/19/23 12:19 Blood Culture - Preliminary Blood 10/16/23 16:40 Anaerobic Culture - Final Abdomen 10/19/23 12:15 Blood Culture Gram Stain - Preliminary Blood Blood Culture - Preliminary 10/19/23 12:10 Gram Stain - Final Sputum Sputum Culture - Final Assessment and Plan Assessment: S/P intubation and mechanical ventilation for impending respiratory failure, secondary to fulminant liver failure, October 19, 2023. Postop day #6, S/P repair of incarcerated umbilical hernia. Chronic liver disease/cirrhosis, and ascites, secondary to previous significant alcohol abuse. Anion gap metabolic acidosis, resolved. Chronic kidney disease, rule out hepatorenal syndrome. Severe hyperammonemia. Lactic acidosis. History of hyperlipidemia. History of hypertension. History of liver cirrhosis. Recurrent ascites, status post frequent paracentesis abdominis. History of depression and PTSD. History of chronic tobacco use. Anemia of chronic disease. Plan: Plan dated October 19, 2023. The patient was transferred down to the intensive care unit, where he was evaluated. The patient is electively intubated, and we also placed a left subclavian triple-lumen catheter, and a right radial art line, for better mon itoring and management. Labs, x-rays, medications are reviewed. The patient is initially placed on vent settings of volume assist-control, rate 20, tidal volume 400, FiO2 100%, PEEP of 5. Additional recommendations and suggestions are forthcoming. The medication list is reviewed. Unnecessary medications were discontinued. I did speak to the surgeon about this patient. If the patient shows further deterioration, will attempt to transfer the patient to a facility that deals in patients with severe liver disease. Plan dated October 20, 2023. The patient is seen again today in room 263. He was transferred down to the intensive care unit yesterday, where, he was intubated, and had an arterial line placed, and a central line placed. The patient has hepatic encephalopathy, and more recently, has been having issues with low blood pressure. He was started on norepinephrine, which is currently running at 3 mcg/min. He continues on propofol, and also D5W with 3 ampoules of sodium bicarbonate at 80 cc an hour. Tube feedings will be started today. A head CT which was done yesterday was negative. The patient will get a EEG performed. In addition, I have asked the nurse to give the patient Ativan 2 mg, to see if the tremors stop. Plan dated October 21, 2023. The patient is again seen in the intensive care unit. He remains on mechanical ventilator. He is currently on propofol, a sodium bicarbonate drip, fentanyl, and tube feedings with vital AF. He continues on Rocephin. Blood gases show pO2 of 64, pCO2 37, pH is 7.47. Labs, x-rays, medications are all reviewed. Prognosis is guarded. Culture data is thus far negative. We will continue to follow make recommendations along the way. The patient's overall prognosis remains extremely poor. Plan dated October 22, 2023. The patient is seen in the intensive care unit, room 263. He remains on mechanical ventilator. The patient also remains on norepinephrine at 9 mcg/min, propofol at 50 mcg/kg/min, and fentanyl at 1 mcg/kg/h. The patient is on Dilaudid, and will try to wean the patient off of fentanyl. The patient continues on Rocephin. The patient will receive 1 unit of packed red blood cells, for hemoglobin of 6.6. Blood gases show pO2 of 68, pCO2 of 45, pH is 7.41. Labs, x-rays, and medications are reviewed. The patient's overall prognosis remains guarded. We will continue to follow the patient, make recommendations along the way. Time with Patient: Greater than 30
--- NOTE | 2023-10-22 11:25 | OP ---
OPERATIVE REPORT DATE OF SERVICE : PROCEDURE: Left radial art line. PREOPERATIVE DIAGNOSES: Frequent blood draws and blood gas monitoring. POSTOPERATIVE DIAGNOSES: Frequent blood draws and blood gas monitoring. CO-MEDICAL ONCOLOGY PHYSICIAN: Dr. Brenner. ARTERIAL LINE PLACEMENT: Indications: Hemodynamic monitoring. A time-out was completed verifying correct patient, procedure, site, positioning, and implant(s) or special equipment if applicable. Man's test was performed to ensure adequate perfusion. The patient's left wrist was prepped and draped in sterile fashion. 1% Lidocaine was used to anesthetize the area. An 18G Arrow arterial line was introduced into the radial artery. The catheter was threaded over the guide wire and the needle was removed with appropriate pulsatile blood return. Blood loss was minimal. Perfusion to the extremity distal to the point of catheter insertion was checked and found to be adequate. The patient tolerated the procedure well. The catheter was sutured in place. There was good waveform and blood pressure reading. A sterile dressing was applied by the nurse. There was no immediate complication. The patient's procedure took place in room 263 intensive care unit. MMODL / IJN: [id number] /
--- NOTE | 2023-10-22 11:40 | P.PN ---
Subjective Patient is seen for follow-up for acute kidney injury, hepatorenal syndrome. patient was transferred to the ICU due to unresponsiveness. He was eventually intubated. Ammonia was elevated at 259 and has decreased to 56. Maintained on lactulose. Currently maintained on IV fluids, IV bicarb. Also receiving midodrine and Sandostatin along with albumin for hepatorenal syndrome. Serum creatinine has decreased to 1.7 urine output at 20 -40 mL an hour Objective - Vital Signs Vital signs: Vital Signs Temp 97.9 F 10/22/23 08:00 Pulse 80 10/22/23 11:00 Resp 20 10/22/23 11:00 BP 113/45 10/22/23 11:00 Pulse Ox 94 L 10/22/23 11:00 FiO2 40 10/22/23 11:12 Intake & Output 10/21/23 10/22/23 10/22/23 18:59 06:59 18:59 Intake Total 2361.847 3198.065 653 Output Total 460 1330 135 Balance 1347.956 838.065 518 Weight 84.4 kg Intake: IV 1025 900 300 Albumin Human 25% 50 ml @ 50 50 50 mls/hr IV DAILY@1000 [facility] Rx#:[id number] Dextrose 5% in Water 1, 400 000 ml @ 80 mls/hr IV . [id number] [facility] with Sodium Bicarb (1 Meq/ml) 150 ml Rx#:[id number] Lactated Ringers 1,000 ml 525 900 150 @ 75 mls/hr IV .[id number] [facility] Rx#:[id number] cefTRIAXone 2 gm In 50 100 Sodium Chloride 0.9% 50 ml @ 100 mls/hr IVPB Q24HR [facility] Rx#:[id number] Intake, IV Titration 581.956 662.065 Amount Norepinephrine 4 mg In 154.734 378.927 Sodium Chloride 0.9% 250 ml @ 0.03 MCG/KG/MIN 9. 201 mls/hr IV .Q24H [facility] Rx#:[id number] fentaNYL (PF). 1,000 mcg 68.997 In Sodium Chloride 0.9% 80 ml @ 0.5 MCG/KG/HR 3. 805 mls/hr IV .Q24H [facility] Rx#:[id number] propofoL 1,000 mg In 358.225 283.138 Empty Bag 1 bag @ 15 MCG/ KG/MIN 7.245 mls/hr IV . 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 - Labs CBC & Chem 7: 10/22/23 03:08 10/22/23 03:08 Labs: Abnormal Lab Results - Last 24 Hours (Table) 10/21/23 10/22/23 10/22/23 Range/Units 17:12 00:12 03:08 RBC (4.30-5.90) m/uL Hgb (13.0-17.5) gm/dL Hct (39.0-53.0) % MCHC (31.0-37.0) g/dL RDW (11.5-15.5) % Plt Count (150-450) k/uL ABG pCO2 (35-45) mmHg ABG pO2 (83-108) mmHg ABG HCO3 (21-25) mmol/L ABG Total CO2 (19-24) mmol/L ABG O2 Saturation (94-97) % Potassium (3.5-5.1) mmol/L BUN (9-20) mg/dL Creatinine (0.66-1.25) mg/dL Glucose (74-99) mg/dL POC Glucose (mg/dL) 141 H 141 H (70-110) mg/dL Calcium (8.4-10.2) mg/dL Total Bilirubin (0.2-1.3) mg/dL Total Protein (6.3-8.2) g/dL Albumin (3.5-5.0) g/dL Crossmatch See Detail 10/22/23 10/22/23 10/22/23 Range/Units 03:08 03:08 05:24 RBC 2.56 L (4.30-5.90) m/uL Hgb 6.6 L* (13.0-17.5) gm/dL Hct 22.2 L (39.0-53.0) % MCHC 29.8 L (31.0-37.0) g/dL RDW 19.8 H (11.5-15.5) % Plt Count 97 L (150-450) k/uL ABG pCO2 48 H (35-45) mmHg ABG pO2 36 L* (83-108) mmHg ABG HCO3 30 H (21-25) mmol/L ABG Total CO2 31 H (19-24) mmol/L ABG O2 Saturation 61.6 L (94-97) % Potassium 3.4 L (3.5-5.1) mmol/L BUN 53 H (9-20) mg/dL Creatinine 1.78 H (0.66-1.25) mg/dL Glucose 134 H (74-99) mg/dL POC Glucose (mg/dL) (70-110) mg/dL Calcium 7.4 L (8.4-10.2) mg/dL Total Bilirubin 1.4 H (0.2-1.3) mg/dL Total Protein 4.9 L (6.3-8.2) g/dL Albumin 2.8 L (3.5-5.0) g/dL Crossmatch 10/22/23 10/22/23 Range/Units 05:55 06:37 RBC (4.30-5.90) m/uL Hgb (13.0-17.5) gm/dL Hct (39.0-53.0) % MCHC (31.0-37.0) g/dL RDW (11.5-15.5) % Plt Count (150-450) k/uL ABG pCO2 (35-45) mmHg ABG pO2 68 L (83-108) mmHg ABG HCO3 28 H (21-25) mmol/L ABG Total CO2 30 H (19-24) mmol/L ABG O2 Saturation 93.5 L (94-97) % Potassium (3.5-5.1) mmol/L BUN (9-20) mg/dL Creatinine (0.66-1.25) mg/dL Glucose (74-99) mg/dL POC Glucose (mg/dL) 140 H (70-110) mg/dL Calcium (8.4-10.2) mg/dL Total Bilirubin (0.2-1.3) mg/dL Total Protein (6.3-8.2) g/dL Albumin (3.5-5.0) g/dL Crossmatch Microbiology - Last 24 Hours (Table) 10/19/23 12:19 Blood Culture - Preliminary Blood 10/16/23 16:40 Anaerobic Culture - Final Abdomen 10/19/23 12:15 Blood Culture Gram Stain - Preliminary Blood Blood Culture - Preliminary 10/19/23 12:10 Gram Stain - Final Sputum Sputum Culture - Final Assessment and Plan Assessment: 1. Acute kidney injury, ATN from hypotension versus hepatorenal syndrome. Jeni ntained on midodrine, Sandostatin and has been receiving albumin. No evidence of obstruction on computed tomography scan on 09/04/2023. 2. Non- gap metabolic acidosis associated with acute kidney injury. 3. Mild hyperkalemia associated with acute kidney injury and metabolic acidosis, improved 4. History of EtOH-related liver cirrhosis. 5. Status post open repair of incarcerated umbilical hernia and umbilectomy on 10/16/2023. 6. Anemia and with no active bleeding noted. Check iron profile 7. Hepatic encephalopathy with serum ammonia at 259, decreased to 56 with lactulose 8. Acute hypoxic respiratory failure, currently on the vent Plan: Continue Ringer lactate. Continue with midodrine and Sandostatin along with albumin. Replace potassium Repeat labs in a.m. Avoid nephrotoxic agents. continue with lactulose
[2023-10-22 12:02] LABS: Glucose,Whole Blood 145 mg/dL (70-110)
[2023-10-22] MEDS: PIPERACILLIN-TAZOBACTAM 3.375 GM in SODIUM CHLORIDE 0.9% 100 ML IVPB SCH (12:18)
[2023-10-22] MEDS: HYDROmorphone 1 MG/ML 1 ML SYRINGE IVP PRN (12:26)
--- NOTE | 2023-10-22 13:46 | P.PN ---
Subjective Progress Note Date: 10/22/23 CHIEF COMPLAINT: Incarcerated umbilical hernia HISTORY OF PRESENT ILLNESS: Postop day #6 status post open repair of incarcerated umbilical hernia, umbillectomy. Patient remains in the ICU intubated and on mechanical ventilation. They have discontinued the fentanyl. He had 240 mL residual from his tube feeds. Hemoglobin is 6.6 and receiving 1 unit of blood. Patient is having stools. Has fecal management system in place. Afebrile. WBC 10.5 Hgb 6.6 platelets 97 creatinine 1.78 PHYSICAL EXAM: VITAL SIGNS: Reviewed. GENERAL: intubated ABDOMEN: Soft. Nondistended. Prevena wound vac in tact. ASSESSMENT: 1. Incarcerated umbilical hernia status post repair 2. Respiratory failure requiring mechanical ventilation 3. Elevated ammonia level 4. Chronic liver disease and liver cirrhosis with prior alcohol abuse 5. Hepatic encephalopathy PLAN: -Continue ICU management -Continue supportive care -Decrease tube feeds and continue to monitor residual -Continue PPI Physician Imcu Specialist note has been reviewed by physician. Signing provider agrees with the documented findings, assessment, and plan of care. Objective - Vital Signs Vital signs: Vital Signs Temp 97.8 F 10/22/23 12:00 Pulse 78 10/22/23 13:00 Resp 22 10/22/23 13:00 BP 111/40 10/22/23 13:00 Pulse Ox 94 L 10/22/23 13:00 FiO2 40 10/22/23 12:00 Intake & Output 10/21/23 10/22/23 10/22/23 18:59 06:59 18:59 Intake Total 6552.464 1965.065 1460.962 Output Total 460 1330 400 Balance 1347.956 245.942 2820.962 Weight 84.4 kg Intake: IV 1025 900 840 Albumin Human 25% 50 ml @ 50 100 50 mls/hr IV DAILY@1000 [facility] Rx#:[id number] Dextrose 5% in Water 1, 400 000 ml @ 80 mls/hr IV . [id number] [facility] with Sodium Bicarb (1 Meq/ml) 150 ml Rx#:[id number] Lactated Ringers 1,000 ml 525 900 525 @ 75 mls/hr IV .[id number] [facility] Rx#:[id number] Piperacillin-Tazobactam 3 100 .375 gm In Sodium Chloride 0.9% 100 ml @ 25 mls/hr IVPB Q8H [facility] Rx#: [id number] Pressure Bag 15 cefTRIAXone 2 gm In 50 100 Sodium Chloride 0.9% 50 ml @ 100 mls/hr IVPB Q24HR [facility] Rx#:[id number] Intake, IV Titration 581.956 662.065 138.962 Amount Norepinephrine 4 mg In 154.734 378.927 Sodium Chloride 0.9% 250 ml @ 0.03 MCG/KG/MIN 9. 201 mls/hr IV .Q24H [facility] Rx#:[id number] fentaNYL (PF). 1,000 mcg 68.997 62.085 In Sodium Chloride 0.9% 80 ml @ 0.5 MCG/KG/HR 3. 805 mls/hr IV .Q24H [facility] Rx#:[id number] propofoL 1,000 mg In 358.225 283.138 76.877 Empty Bag 1 bag @ 15 MCG/ KG/MIN 7.245 mls/hr IV . [id number] [facility] Rx#:[id number] Tube Feeding 201 516 172 Blood Product 0 310 Rc As-1 Unit 0 310 [id number] Other 90 Output: Drainage 10 Lower Abdomen 10 Urine 360 330 215 Stool 100 1000 175 Other: Voiding Method Indwelling Catheter Indwelling Catheter ABP, PAP, CO, CI - Last Documented Arterial Blood Pressure 118/45 - Labs CBC & Chem 7: 10/22/23 03:08 10/22/23 12:30 Labs: Abnormal Lab Results - Last 24 Hours (Table) 10/21/23 10/22/23 10/22/23 Range/Units 17:12 00:12 03:08 RBC (4.30-5.90) m/uL Hgb (13.0-17.5) gm/dL Hct (39.0-53.0) % MCHC (31.0-37.0) g/dL RDW (11.5-15.5) % Plt Count (150-450) k/uL ABG pCO2 (35-45) mmHg ABG pO2 (83-108) mmHg ABG HCO3 (21-25) mmol/L ABG Total CO2 (19-24) mmol/L ABG O2 Saturation (94-97) % Potassium (3.5-5.1) mmol/L BUN (9-20) mg/dL Creatinine (0.66-1.25) mg/dL Glucose (74-99) mg/dL POC Glucose (mg/dL) 141 H 141 H (70-110) mg/dL Calcium (8.4-10.2) mg/dL Total Bilirubin (0.2-1.3) mg/dL Total Protein (6.3-8.2) g/dL Albumin (3.5-5.0) g/dL Crossmatch See Detail 10/22/23 10/22/23 10/22/23 Range/Units 03:08 03:08 05:24 RBC 2.56 L (4.30-5.90) m/uL Hgb 6.6 L* (13.0-17.5) gm/dL Hct 22.2 L (39.0-53.0) % MCHC 29.8 L (31.0-37.0) g/dL RDW 19.8 H (11.5-15.5) % Plt Count 97 L (150-450) k/uL ABG pCO2 48 H (35-45) mmHg ABG pO2 36 L* (83-108) mmHg ABG HCO3 30 H (21-25) mmol/L ABG Total CO2 31 H (19-24) mmol/L ABG O2 Saturation 61.6 L (94-97) % Potassium 3.4 L (3.5-5.1) mmol/L BUN 53 H (9-20) mg/dL Creatinine 1.78 H (0.66-1.25) mg/dL Glucose 134 H (74-99) mg/dL POC Glucose (mg/dL) (70-110) mg/dL Calcium 7.4 L (8.4-10.2) mg/dL Total Bilirubin 1.4 H (0.2-1.3) mg/dL Total Protein 4.9 L (6.3-8.2) g/dL Albumin 2.8 L (3.5-5.0) g/dL Crossmatch 10/22/23 10/22/23 10/22/23 Range/Units 05:55 06:37 12:00 RBC (4.30-5.90) m/uL Hgb (13.0-17.5) gm/dL Hct (39.0-53.0) % MCHC (31.0-37.0) g/dL RDW (11.5-15.5) % Plt Count (150-450) k/uL ABG pCO2 (35-45) mmHg ABG pO2 68 L (83-108) mmHg ABG HCO3 28 H (21-25) mmol/L ABG Total CO2 30 H (19-24) mmol/L ABG O2 Saturation 93.5 L (94-97) % Potassium (3.5-5.1) mmol/L BUN (9-20) mg/dL Creatinine (0.66-1.25) mg/dL Glucose (74-99) mg/dL POC Glucose (mg/dL) 140 H 145 H (70-110) mg/dL Calcium (8.4-10.2) mg/dL Total Bilirubin (0.2-1.3) mg/dL Total Protein (6.3-8.2) g/dL Albumin (3.5-5.0) g/dL Crossmatch Microbiology - Last 24 Hours (Table) 10/19/23 12:15 Blood Culture Gram Stain - Preliminary Blood Blood Culture - Preliminary 10/19/23 12:19 Blood Culture - Preliminary Blood 10/16/23 16:40 Anaerobic Culture - Final Abdomen
[2023-10-22 17:48] LABS: Glucose,Whole Blood 137 mg/dL (70-110)
[2023-10-22] MEDS: POTASSIUM BICARBONATE/CIT AC 20 MEQ TABLET.EFF PO ONE (18:28)
[2023-10-22 23:29] LABS: Glucose,Whole Blood 145 mg/dL (70-110)
[2023-10-23 04:15] LABS: Glucose,Whole Blood 148 mg/dL (70-110)
[2023-10-23 04:32] LABS: Anisocytosis Slight; Basophils % (A) 0 %; Eosinophils # (A) 0.2 k/uL (0-0.7); Eosinophils % (A) 2 %; HGB 7.8 gm/dL (13.0-17.5); Hypochromasia Moderate; Lymphocytes # (A) 0.6 k/uL (1.0-4.8); Lymphocytes % (A) 5 %; MCH 25.6 pg (25.0-35.0); MCHC 29.9 g/dL (31.0-37.0); MCV 85.6 fL (80.0-100.0); Monocytes # (A) 0.5 k/uL (0-1.0); Monocytes % (A) 4 %; Neutrophils # (A) 11.2 k/uL (1.3-7.7); Neutrophils % (A) 88 %; Poikilocytosis Slight; RBC 3.04 m/uL (4.30-5.90); RDW 19.2 % (11.5-15.5); WBC 12.7 k/uL (3.8-10.6)
[2023-10-23 05:03] LABS: ALT 10 U/L (4-49); AST 22 U/L (17-59); African American GFR (CKD) 74 (>60 ml/min/1.73 sqM); Albumin 3.1 g/dL (3.5-5.0); Alkaline Phosphatase 61 U/L (38-126); Anion Gap 7 mmol/L; Blood Urea Nitrogen 47 mg/dL (9-20); Carbon Dioxide 26 mmol/L (22-30); Chloride 105 mmol/L (98-107); Glucose 138 mg/dL (74-99); Non-African American GFR(CKD) 64 (>60 ml/min/1.73 sqM); Potassium 4.1 mmol/L (3.5-5.1); Sodium 138 mmol/L (137-145); Total Bilirubin 2.4 mg/dL (0.2-1.3); Total Protein 5.1 g/dL (6.3-8.2)
[2023-10-23 05:07] LABS: Platelet Count 75 k/uL (150-450)
[2023-10-23 06:33] LABS: ABG Base Excess 2.6 mmol/L; ABG HCO3 28 mmol/L (21-25); ABG Oxygen Saturation 97.3 % (94-97); ABG PCO2 44 mmHg (35-45); ABG PO2 87 mmHg (83-108); ABG TCO2 29 mmol/L (19-24); Allen Test Performed? Yes
--- NOTE | 2023-10-23 07:24 | XR ---
ROSA M MONACO EXAMINATION TYPE: Chest X-Ray 1 View DATE OF EXAM: 10/23/2023 CLINICAL HISTORY: OG tube placement verification. TECHNIQUE: Single frontal view of the chest is obtained. COMPARISON: Chest x-ray one day earlier FINDINGS: Stable endotracheal and orogastric tube projecting below diaphragm. Stable left sided subc lavian central venous catheter. There are persistent bibasilar opacities. The cardiac silhouette size is stable and within normal li mits. The osseous structures are intact. IMPRESSION: Oral gastric tube remain satisfactory in position. Persistent bibasilar acute infiltrates and/or atelectasis. No significant change from one day earlier.
--- NOTE | 2023-10-23 11:00 | P.PN ---
Subjective Patient is seen for follow-up for acute kidney injury, hepatorenal syndrome. patient was transferred to the ICU due to unresponsiveness. He was eventually intubated. Ammonia was elevated at 259 and has decreased to 56. Maintained on lactulose. Currently maintained on IV fluids. Also receiving midodrine and Sandostatin along with albumin for hepatorenal syndrome. Serum creatinine has decreased to 1.35 urine output at 30 -50 mL an hour Objective - Vital Signs Vital signs: Vital Signs Temp 97.5 F L 10/23/23 08:00 Pulse 75 10/23/23 10:45 Resp 20 10/23/23 10:45 BP 107/49 10/23/23 10:45 Pulse Ox 96 10/23/23 10:45 FiO2 40 10/23/23 08:18 Intake & Output 10/22/23 10/23/23 10/23/23 18:59 06:59 18:59 Intake Total 4971.447 9889.536 363.069 Output Total 600 695 120 Balance 2433.764 1887.536 243.069 Weight 86.1 kg Intake: IV 1230 1036 234 Albumin Human 25% 50 ml @ 100 50 mls/hr IV DAILY@1000 [facility] Rx#:[id number] Lactated Ringers 1,000 ml 900 900 225 @ 75 mls/hr IV .[id number] [facility] Rx#:[id number] Piperacillin-Tazobactam 3 100 100 .375 gm In Sodium Chloride 0.9% 100 ml @ 25 mls/hr IVPB Q8H [facility] Rx#: [id number] Pressure Bag 30 36 9 cefTRIAXone 2 gm In 100 Sodium Chloride 0.9% 50 ml @ 100 mls/hr IVPB Q24HR [facility] Rx#:[id number] Intake, IV Titration 238.962 670.536 109.069 Amount Norepinephrine 4 mg In 470.536 37.464 Sodium Chloride 0.9% 250 ml @ 0.03 MCG/KG/MIN 9. 201 mls/hr IV .Q24H [facility] Rx#:[id number] fentaNYL (PF). 1,000 mcg 62.085 In Sodium Chloride 0.9% 80 ml @ 0.5 MCG/KG/HR 3. 805 mls/hr IV .Q24H [facility] Rx#:[id number] propofoL 1,000 mg In 176.877 200 71.605 Empty Bag 1 bag @ 15 MCG/ KG/MIN 7.245 mls/hr IV . 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 be 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 - Labs CBC & Chem 7: 10/23/23 04:13 10/23/23 04:13 Labs: Abnormal Lab Results - Last 24 Hours (Table) 10/22/23 10/22/23 10/22/23 Range/Units 12:00 17:46 23:27 WBC (3.8-10.6) k/uL RBC (4.30-5.90) m/uL Hgb (13.0-17.5) gm/dL Hct (39.0-53.0) % MCHC (31.0-37.0) g/dL RDW (11.5-15.5) % Plt Count (150-450) k/uL Neutrophils # (1.3-7.7) k/uL Lymphocytes # (1.0-4.8) k/uL ABG HCO3 (21-25) mmol/L ABG Total CO2 (19-24) mmol/L ABG O2 Saturation (94-97) % BUN (9-20) mg/dL Creatinine (0.66-1.25) mg/dL Glucose (74-99) mg/dL POC Glucose (mg/dL) 145 H 137 H 145 H (70-110) mg/dL Calcium (8.4-10.2) mg/dL Total Bilirubin (0.2-1.3) mg/dL Total Protein (6.3-8.2) g/dL Albumin (3.5-5.0) g/dL 10/23/23 10/23/23 10/23/23 Range/Units 04:12 04:13 04:13 WBC 12.7 H (3.8-10.6) k/uL RBC 3.04 L (4.30-5.90) m/uL Hgb 7.8 L (13.0-17.5) gm/dL Hct 26.0 L (39.0-53.0) % MCHC 29.9 L (31.0-37.0) g/dL RDW 19.2 H (11.5-15.5) % Plt Count 75 L (150-450) k/uL Neutrophils # 11.2 H (1.3-7.7) k/uL Lymphocytes # 0.6 L (1.0-4.8) k/uL ABG HCO3 (21-25) mmol/L ABG Total CO2 (19-24) mmol/L ABG O2 Saturation (94-97) % BUN 47 H (9-20) mg/dL Creatinine 1.35 H (0.66-1.25) mg/dL Glucose 138 H (74-99) mg/dL POC Glucose (mg/dL) 148 H (70-110) mg/dL Calcium 8.0 L (8.4-10.2) mg/dL Total Bilirubin 2.4 H (0.2-1.3) mg/dL Total Protein 5.1 L (6.3-8.2) g/dL Albumin 3.1 L (3.5-5.0) g/dL 10/22/ Range/Units 06:28 WBC (3.8-10.6) k/uL RBC (4.30-5.90) m/uL Hgb (13.0-17.5) gm/dL Hct (39.0-53.0) % MCHC (31.0-37.0) g/dL RDW (11.5-15.5) % Plt Count (150-450) k/uL Neutrophils # (1.3-7.7) k/uL Lymphocytes # (1.0-4.8) k/uL ABG HCO3 28 H (21-25) mmol/L ABG Total CO2 29 H (19-24) mmol/L ABG O2 Saturation 97.3 H (94-97) % BUN (9-20) mg/dL Creatinine (0.66-1.25) mg/dL Glucose (74-99) mg/dL POC Glucose (mg/dL) (70-110) mg/dL Calcium (8.4-10.2) mg/dL Total Bilirubin (0.2-1.3) mg/dL Total Protein (6.3-8.2) g/dL Albumin (3.5-5.0) g/dL Microbiology - Last 24 Hours (Table) 10/19/23 12:19 Blood Culture - Preliminary Blood 10/19/23 12:15 Blood Culture Gram Stain - Preliminary Blood Blood Culture - Preliminary Assessment and Plan Assessment: 1. Acute kidney injury, ATN from hypotension versus hepatorenal syndrome. Maintained on midodrine, Sandostatin and has been receiving albumin. No evidence of obstruction on computed tomography scan on 09/04/2023. 2. Non- gap metabolic acidosis associated with acute kidney injury. 3. Mild hyperkalemia associated with acute kidney injury and metabolic acidosis, improved 4. History of EtOH-related liver cirrhosis. 5. Status post open repair of incarcerated umbilical hernia and umbilectomy on 10/16/2023. 6. Anemia and with no active bleeding noted. Check iron profile 7. Hepatic encephalopathy with serum ammonia at 259, decreased to 56 with lactulose 8. Acute hypoxic respiratory failure, currently on the vent Plan: Continue Ringer lactate. decrease rate to 50 mL an hour. Consider paracentesis Continue with midodrine and Sandostatin along with albumin. Replace potassium Repeat labs in a.m. Avoid nephrotoxic agents. continue with lactulose
--- NOTE | 2023-10-23 11:36 | P.PN ---
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 He presented to the emergency department on 10/16/23 with a chief complaint of intractable abdominal pain and reports umbilical hernia is now nonreducible. Vital signs upon arrival showed BP 115/69, HR 76, RR 18, T 97.8 F, and SpO2 100% on RA. EKG showed normal sinus rhythm at 63 bpm with no noted T wave or ST abnormalities. CBC showing bicytopenia with Hg 7.9 and Plt 98. Coagulation profile showed PT of 14.7 and INR 1.4. BMP showing Na 133, Cl 110, bicarb of 13, and anion gap of 10, BUN of 35, creatinine 1.65, GFR 51. Blood glucose was 119. Lactic acid was 1.8. Liver profile was unremarkable. Patient was evaluated by general surgeon, he is being admitted to general surgery team with plans to be taken to the OR for open surgical repair of incarcerated umbilical hernia. We were consulted for preoperative medical clearance and postoperative medical management. On 10/15 patient underwent open repair of incarcerated umbilical hernia with umbillectomy. Renal function continued to worsen. Patient was started on albumin and octreotide. Midodrine was increased and Nephrology was consulted. Patient was started on bicarb drip. Patient became encephalopathic on 10/18. St arted on rectal lactulose and transferred to medical ICU. His mentation continued to worsen, and he was intubated. Also started on Rocephin for concerns of SBP on 10/18. There is concern for GI bleed as well. 10/20 Intubated. Generalized tremors noted on 10/19, CT brain was negative for acute pathology and EEG showed moderate to severe background slowing. Started on Fentanyl drip at 1 mcg/kg/hr which improved his tremors, likely related to pain. 10/21 Intubated. CXR shows right sided infiltrates. Antibiotics switched from Rocephin to Zosyn (D1). Plans to transfuse 1 unit PRBC. 10/22 Patient was seen and examined. Intubated. Fentanyl drip weaned off this morning. Levophed running at 0.11 mcg/kg/min. Sedated with propofol at 50 mcg/kg/min. Currently on LR at 75 cc/hr. CBC WBC 12.7, Hg 7.8, Hct 26, Plt 75. ABG pH 7.4, pCO2 44. CMP BUN 47, Cr 1.35, glu 138, Ca 8, T. Bili 2.4, alb 3.1. Ammonia 15. CXR shows bibasilar infiltrates. Antibiotics include Zosyn 3.375g IV TID (D2). General: Intubated sedated Derm: Warm, dry, jaundice Head: Atraumatic, normocephalic, symmetric Eyes: Scleral icterus, pupils equal and reactive Mouth: No lip lesion, mucus membranes moist Cardiovascular: S1S2 reg, no murmur Lungs: CTA bilateral, no rhonchi, no rales, no accessory muscle use, intubated Abdominal: Slightly distended, nontender to palpation, no guarding, no appreciable organomegaly, midline dressing clean, dry, intact Ext: Gross muscle atrophy Neuro: Sedated Psych: Unable to assess Ventilator dependent respiratory failure: Pulm toileting. Vent managed by Pulmonary. Acute hepatic encephalopathy: Lactulose 20g PO TID. Suspected spontaneous bacterial peritonitis: Ascitic fluid culture negative. BCx negative. Sputum Cx negative. Rocephin switched to Zosyn 3.375g IV TID (D2). Possible pneumonia: Started on Zosyn 10/21 should cover for both SBP and possible aspiration PNA. Septic shock likely secondary to above: Antibiotics as above. Titrate Levophed to MAP > 65. Telemetry monitoring. Acute GI bleed: 1 unit PRBC 10/21. Surgery on board recommending continued monitoring. Protonix 40 mg IV QD. Transfuse if Hg < 7. IVAN, secondary to suspected hepatorenal syndrome, history of CKD stage III: Nephrology recommends continuing LR, midodrine and Sandostatin along with albumin. Tremors: Likely pain related. CT brain negative. EEG mod-severe encaphalopathy. Improved with Fentanyl. History of advanced liver cirrhosis: Continue Albumin 12.5g IV QD, Midodrine 15 mg PO TID, Octreotide 100mcg subQ every 8 hours. Bicytopenia secondary to liver cirrhosis Elevated INR Incarcerated/strangulated umbilical hernia status post open repair: Management per general surgery Resolved: Metabolic and lactic acidosis CODE STATUS: FULL CODE DVT Prophylaxis: SCD GI Prophylaxis: Protonix IV Designated medical POA if patient is not able to make medical decisions for themselves: I have reviewed the following pre sales technical consultant notes: Pulmonary, Surgery, Nephrology. I have reviewed the results of the following tests: CBC, CMP, ABG I have ordered the following tests: CBC and CMP in the AM. I have discussed the care of this patient with the following independent historian: I have independently interpreted the following test below: CXR I have discussed the management of this patient with the following physician: Objective - Vital Signs Vital signs: Vital Signs Temp 98.2 F 10/23/23 04:00 Pulse 75 10/23/23 07:00 Resp 20 10/23/23 07:00 BP 108/49 10/23/23 07:00 Pulse Ox 96 10/23/23 07:00 FiO2 40 10/23/23 08:18 Intake & Output 10/22/23 10/23/23 10/23/23 18:59 06:59 18:59 Intake Total 1395.308 9559.536 115.464 Output Total 600 695 20 Balance 2474.759 2819.536 95.464 Weight 86.1 kg Intake: IV 1230 1036 78 Albumin Human 25% 50 ml @ 100 50 mls/hr IV DAILY@1000 [facility] Rx#:[id number] Lactated Ringers 1,000 ml 900 900 75 @ 75 mls/hr IV .[id number] [facility] Rx#:[id number] Piperacillin-Tazobactam 3 100 100 .375 gm In Sodium Chloride 0.9% 100 ml @ 25 mls/hr IVPB Q8H [facility] Rx#: [id number] Pressure Bag 30 36 3 cefTRIAXone 2 gm In 100 Sodium Chloride 0.9% 50 ml @ 100 mls/hr IVPB Q24HR [facility] Rx#:[id number] Intake, IV Titration 238.962 670.536 37.464 Amount Norepinephrine 4 mg In 470.536 37.464 Sodium Chloride 0.9% 250 ml @ 0.03 MCG/KG/MIN 9. 201 mls/hr IV .Q24H [facility] Rx#:[id number] fentaNYL (PF). 1,000 mcg 62.085 In Sodium Chloride 0.9% 80 ml @ 0.5 MCG/KG/HR 3. 805 mls/hr IV .Q24H [facility] Rx#:[id number] propofoL 1,000 mg In 176.877 200 Empty Bag 1 bag @ 15 MCG/ KG/MIN 7.245 mls/hr IV . [id number] [facility] Rx#:[id number] Tube Feeding 172 50 Blood Product 310 Rc As-1 Unit 310 [id number] Other 30 Output: Drainage 20 0 0 Lower Abdomen 20 0 0 Urine 405 570 20 Stool 175 125 Other: Voiding Method Indwelling Catheter ABP, PAP, CO, CI - Last Documented Arterial Blood Pressure 120/52 - Labs CBC & Chem 7: 10/23/23 04:13 10/23/23 04:13 Labs: Abnormal Lab Results - Last 24 Hours (Table) 10/22/23 10/22/23 10/22/23 Range/Units 03:08 12:00 17:46 WBC (3.8-10.6) k/uL RBC (4.30-5.90) m/uL Hgb (13.0-17.5) gm/dL Hct (39.0-53.0) % MCHC (31.0-37.0) g/dL RDW (11.5-15.5) % Plt Count (150-450) k/uL Neutrophils # (1.3-7.7) k/uL Lymphocytes # (1.0-4.8) k/uL ABG HCO3 (21-25) mmol/L ABG Total CO2 (19-24) mmol/L ABG O2 Saturation (94-97) % BUN (9-20) mg/dL Creatinine (0.66-1.25) mg/dL Glucose (74-99) mg/dL POC Glucose (mg/dL) 145 H 137 H (70-110) mg/dL Calcium (8.4-10.2) mg/dL Total Bilirubin (0.2-1.3) mg/dL Total Protein (6.3-8.2) g/dL Albumin (3.5-5.0) g/dL Crossmatch See Detail 10/22/23 10/23/23 10/23/23 Range/Units 23:27 04:12 04:13 WBC 12.7 H (3.8-10.6) k/uL RBC 3.04 L (4.30-5.90) m/uL Hgb 7.8 L (13.0-17.5) gm/dL Hct 26.0 L (39.0-53.0) % MCHC 29.9 L (31.0-37.0) g/dL RDW 19.2 H (11.5-15.5) % Plt Count 75 L (150-450) k/uL Neutrophils # 11.2 H (1.3-7.7) k/uL Lymphocytes # 0.6 L (1.0-4.8) k/uL ABG HCO3 (21-25) mmol/L ABG Total CO2 (19-24) mmol/L ABG O2 Saturation (94-97) % BUN (9-20) mg/dL Creatinine (0.66-1.25) mg/dL Glucose (74-99) mg/dL POC Glucose (mg/dL) 145 H 148 H (70-110) mg/dL Calcium (8.4-10.2) mg/dL Total Bilirubin (0.2-1.3) mg/dL Total Protein (6.3-8.2) g/dL Albumin (3.5-5.0) g/dL Crossmatch 10/23/23 10/23/23 Range/Units 04:13 06:28 WBC (3.8-10.6) k/uL RBC (4.30-5.90) m/uL Hgb (13.0-17.5) gm/dL Hct (39.0-53.0) % MCHC (31.0-37.0) g/dL RDW (11.5-15.5) % Plt Count (150-450) k/uL Neutrophils # (1.3-7.7) k/uL Lymphocytes # (1.0-4.8) k/uL ABG HCO3 28 H (21-25) mmol/L ABG Total CO2 29 H (19-24) mmol/L ABG O2 Saturation 97.3 H (94-97) % BUN 47 H (9-20) mg/dL Creatinine 1.35 H (0.66-1.25) mg/dL Glucose 138 H (74-99) mg/dL POC Glucose (mg/dL) (70-110) mg/dL Calcium 8.0 L (8.4-10.2) mg/dL Total Bilirubin 2.4 H (0.2-1.3) mg/dL Total Protein 5.1 L (6.3-8.2) g/dL Albumin 3.1 L (3.5-5.0) g/dL Crossmatch Microbiology - Last 24 Hours (Table) 10/19/23 12:19 Blood Culture - Preliminary Blood 10/19/23 12:15 Blood Culture Gram Stain - Preliminary Blood Blood Culture - Preliminary
[2023-10-23 12:01] LABS: Glucose,Whole Blood 141 mg/dL (70-110)
--- NOTE | 2023-10-23 12:16 | P.PN ---
Subjective Progress Note Date: 10/23/23 Principal diagnosis: Respiratory failure. Pulmonary consult dated October 19, 2023. 44-year-old male who presented to the emergency department, on October 15, complaining of abdominal pain. The patient has a history of chronic liver disease from alcohol abuse, with cirrhosis and ascites, and need for periodic paracentesis abdominis. The patient has a known history of a umbilical hernia, which she is able to typically reduce, but because he was not able to reduce it, he came in to be evaluated. The patient ended up having surgery, last Thursday, on the , and initially was doing okay. This morning I was called by the surgeon, and my charge nurse in the intensive care unit, to say that the patient was doing poorly, and should be transferred down to the intensive care unit for further monitoring and management. The patient was very lethargic, and looked very unstable, with impending respiratory failure. When I first saw the patient he was on room air, and receiving an IV with 3 ampoules of sodium bicarb in D5W at 80 cc an hour. I asked for stat blood gas, when the patient came to the intensive care unit. His pO2 was 40, pCO2 27, pH is 7.41. After evaluating the patient, I decided to intubate the patient which we did, and place a central line and arterial line, both of which we did. Current laboratory data includes a blood gas showing a pO2 of 393, pCO2 41, pH is 7.26. Saturations are 100%. White count is 18.9, hemoglobin 8.3, hematocrit 26.3, and a platelet count of 156,000. Sodium 137, potassium 4.5, chlorides 106, CO2 14, anion gap 17, BUN 69.6, and creatinine 3. Glucose was 126. Lactic acid was 2.8. Bilirubin was 1.5. Ammonia level was up to 259. Cultures of the ascitic fluid are thus far negative. Chest x-ray shows endotracheal tube to be in good position. Central line is in good position, without complication. Progress note dated October 20, 2023. The patient is seen today in room 263. The patient was intubated, and lined yesterday, for respiratory failure. The patient has a history of chronic liver disease, with cirrhosis, ascites, and encephalopathy. Currently, the patient is on volume assist-control, rate 20, tidal volume 400, FiO2 40%, PEEP of 5. Blood gases show pO2 108, pCO2 28, pH is 7.46. This blood gases consistent with a mild respiratory alkalosis. The patient is getting D5W with 3 ampoules of sodium bicarbonate at 80 cc an hour. The patient is getting norepinephrine at 3 mcg/min, propofol at 50 mcg/kg/min. The patient has been having tremor-like activity, and could be seizing. The brain CT was negative. The patient will have tube feedings beginning today. We have ordered an EEG. In addition, I have asked the nurse to give the patient 2 mg of Ativan, to see if the tremors cease. White count is 13, hemoglobin 7, hematocrit 23, platelet count 106,000. Sodium 138, potassium 3.5, chlorides 111, CO2 17, anion gap 10, BUN 63, creatinine 2.27. Glucose is 160. Ammonia level is down to 49. Albumin is 3.1. Thus far, cultures are negative. The patient's chest x-ray shows the endotracheal tube to be high in the trachea, and have asked respiratory therapy to push it down to 1.5 cm. Progress note dated October 21, 2023. The patient is seen today in room 263. He remains on mechanical ventilator. He is on volume assist-control, rate 20, tidal volume 400, FiO2 40%, PEEP of 5. Blood gases show pO2 of 64, pCO2 37, pH is 7.47. The patient is getting propofol at 50 mcg/kg/min, D5W with 3 ampoules of bicarbonate at 80 cc an hour, fentanyl drip at 1 mcg/kg/h, vital AF at 29 cc an hour, with a goal of 43 cc an hour. The patient also continues on Rocephin. White count is 10.3, hemoglobin 7, hematocrit 22.8, and platelet count 109,000. Sodium 137, potassium 3.7, chlorides 104, CO2 24, BUN 54, and creatinine 1.76. Glucose is 116. Ammonia level is 56. Calcium is 7.7. Cultures are thus far negative. Chest x-ray is unchanged. There is a small left pleural effusion. NG tube, endotracheal tube, and central venous catheter, are in appropriate positions. Progress note dated October 22, 2023. 43-year-old male seen again in the intensive care unit, room 263. He remains on the mechanical ventilator. The patient's ventilator settings include volume assist-control, rate 20, tidal volume 400, FiO2 40%, PEEP of 5. Blood gases show pO2 68, pCO2 45, pH is 7.41. The patient is on norepinephrine at 9 mcg/min, propofol at 50 mcg/kg/min, lactated Ringer's at 75 cc an hour, and fent anyl at 1 mcg/kg/h. The patient is getting tube feedings with vital AF at 43 cc an hour, which is goal. Microbiologic studies are thus far negative. The patient is on Rocephin. He has received 1 unit of packed red blood cells. Current labs include a white count 10.5, hemoglobin 6.6, hematocrit 22.2, and a platelet count of 97,000. Sodium 138, potassium 3.4, chlorides 106, CO2 26, BUN 53, creatinine 1.78. Glucose is 140. Albumin is 2.8. Total bilirubin is 1.4. Chest x-ray shows air space opacities, in the lung bases, which have worsened. Lines and tubes are in good placement. Note dated October 23, 2023. 43-year-old male seen again in room 263. He remains on mechanical ventilator. Vent settings include volume assist-control, rate 20, tidal volume 400, FiO2 40%, PEEP of 5. Blood gases show pO2 87, pCO2 44, pH is 7.40. The patient is getting lactated Ringer's at 75 cc an hour, propofol at 45 mcg/kg/min, norepinephrine at 7.7 mcg/min, and saline at 10 cc an hour. The patient is also getting vital AF, at 10 cc an hour. He continues on Zosyn. We will check a procalcitonin level. The patient will have a daily interruption of sedation, without a spontaneous breathing trial today. Current labs include a white count of 12.7, hemoglobin 7.8, hematocrit 26, platelet count 75,000. Sodium 138, potassium 4.1, chlorides 105, CO2 26, BUN 47, creatinine 1.35. Glucose is 141. Albumin is 3.1. Cultures thus far negative including blood and sputum. Chest x-ray shows the OG tube, to remain in satisfactory position. There is persistent bibasilar infiltrates and/or atelectasis. Objective - Vital Signs Vital signs: Vital Signs Temp 97.5 F L 06/28/24 08:00 Pulse 78 10/23/23 11:56 Resp 20 10/23/23 10:45 BP 107/49 10/23/23 10:45 Pulse Ox 96 10/23/23 10:45 FiO2 40 10/23/23 11:11 Intake & Output 10/22/23 10/23/23 10/23/23 18:59 06:59 18:59 Intake Total 6902.803 4905.536 363.069 Output Total 600 695 120 Balance 4845.204 1354.536 243.069 Weight 86.1 kg Intake: IV 1230 1036 234 Albumin Human 25% 50 ml @ 100 50 mls/hr IV DAILY@1000 [facility] Rx#:[id number] Lactated Ringers 1,000 ml 900 900 225 @ 75 mls/hr IV .[id number] [facility] Rx#:[id number] Piperacillin-Tazobactam 3 100 100 .375 gm In Sodium Chloride 0.9% 100 ml @ 25 mls/hr IVPB Q8H [facility] Rx#: [id number] Pressure Bag 30 36 9 cefTRIAXone 2 gm In 100 Sodium Chloride 0.9% 50 ml @ 100 mls/hr IVPB Q24HR [facility] Rx#:[id number] Intake, IV Titration 238.962 670.536 109.069 Amount Norepinephrine 4 mg In 470.536 37.464 Sodium Chloride 0.9% 250 ml @ 0.03 MCG/KG/MIN 9. 201 mls/hr IV .Q24H [facility] Rx#:[id number] fentaNYL (PF). 1,000 mcg 62.085 In Sodium Chloride 0.9% 80 ml @ 0.5 MCG/KG/HR 3. 805 mls/hr IV .Q24H [facility] Rx#:[id number] propofoL 1,000 mg In 176.877 200 71.605 Empty Bag 1 bag @ 15 MCG/ KG/MIN 7.245 mls/hr IV . [id number] [facility] Rx#:[id number] Tube Feeding 172 50 20 Blood Product 310 Rc As-1 Unit 310 [id number] Other 30 Output: Drainage 20 0 0 Lower Abdomen 20 0 0 Urine 405 570 120 Stool 175 125 Other: Voiding Method Indwelling Catheter ABP, PAP, CO, CI - Last Documented Arterial Blood Pressure 113/52 - Exam Sedated, with an orally placed endotracheal tube and NG tube noted. HEENT examination is grossly unremarkable. Mucous membranes are dry. Teeth are in very poor repair. Neck supple. Full range of motion. No adenopathy thyromegaly or neck vein distention. Cardiovascular examination reveals regular rhythm rate. S1-S2 normal. No S3 or S4. No discernible murmur noted. Heart rate 78 bpm. Lungs reveal scattered crackles and rhonchi. No wheezes. Breath sounds equal. Saturations are 96 %. Abdomen soft, without bowel sounds. No masses. Extremities are intact. No cyanosis clubbing or edema. Skin is jaundiced. Neurologic examination cannot be assessed at this time. - Labs CBC & Chem 7: 10/23/23 04:13 10/23/23 04:13 Labs: Abnormal Lab Results - Last 24 Hours (Table) 10/22/23 10/22/23 10/23/23 Range/Units 17:46 23:27 04:12 WBC (3.8-10.6) k/uL RBC (4.30-5.90) m/uL Hgb (13.0-17.5) gm/dL Hct (39.0-53.0) % MCHC (31.0-37.0) g/dL RDW (11.5-15.5) % Plt Count (150-450) k/uL Neutrophils # (1.3-7.7) k/uL Lymphocytes # (1.0-4.8) k/uL ABG HCO3 (21-25) mmol/L ABG Total CO2 (19-24) mmol/L ABG O2 Saturation (94-97) % BUN (9-20) mg/dL Creatinine (0.66-1.25) mg/dL Glucose (74-99) mg/dL POC Glucose (mg/dL) 137 H 145 H 148 H (70-110) mg/dL Calcium (8.4-10.2) mg/dL Total Bilirubin (0.2-1.3) mg/dL Total Protein (6.3-8.2) g/dL Albumin (3.5-5.0) g/dL 10/23/23 10/23/23 10/23/23 Range/Units 04:13 04:13 06: WBC 12.7 H (3.8-10.6) k/uL RBC 3.04 L (4.30-5.90) m/uL Hgb 7.8 L (13.0-17.5) gm/dL Hct 26.0 L (39.0-53.0) % MCHC 29.9 L (31.0-37.0) g/dL RDW 19.2 H (11.5-15.5) % Plt Count 75 L (150-450) k/uL Neutrophils # 11.2 H (1.3-7.7) k/uL Lymphocytes # 0.6 L (1.0-4.8) k/uL ABG HCO3 28 H (21-25) mmol/L ABG Total CO2 29 H (19-24) mmol/L ABG O2 Saturation 97.3 H (94-97) % BUN 47 H (9-20) mg/dL Creatinine 1.35 H (0.66-1.25) mg/dL Glucose 138 H (74-99) mg/dL POC Glucose (mg/dL) (70-110) mg/dL Calcium 8.0 L (8.4-10.2) mg/dL Total Bilirubin 2.4 H (0.2-1.3) mg/dL Total Protein 5.1 L (6.3-8.2) g/dL Albumin 3.1 L (3.5-5.0) g/dL 10/23/23 Range/Units 11:59 WBC (3.8-10.6) k/uL RBC (4.30-5.90) m/uL Hgb (13.0-17.5) gm/dL Hct (39.0-53.0) % MCHC (31.0-37.0) g/dL RDW (11.5-15.5) % Plt Count (150-450) k/uL Neutrophils # (1.3-7.7) k/uL Lymphocytes # (1.0-4.8) k/uL ABG HCO3 (21-25) mmol/L ABG Total CO2 (19-24) mmol/L ABG O2 Saturation (94-97) % BUN (9-20) mg/dL Creatinine (0.66-1.25) mg/dL Glucose (74-99) mg/dL POC Glucose (mg/dL) 141 H (70-110) mg/dL Calcium (8.4-10.2) mg/dL Total Bilirubin (0.2-1.3) mg/dL Total Protein (6.3-8.2) g/dL Albumin (3.5-5.0) g/dL Microbiology - Last 24 Hours (Table) 10/19/23 12:15 Blood Culture Gram Stain - Preliminary Blood Blood Culture - Preliminary 10/19/23 12:19 Blood Culture - Preliminary Blood Assessment and Plan Assessment: S/P intubation and mechanical ventilation for impending respiratory failure, secondary to fulminant liver failure, October 19, 2023. Postop day #7, S/P repair of incarcerated umbilical hernia. Chronic liver disease/cirrhosis, and ascites, secondary to previous significant alcohol abuse. Anion gap metabolic acidosis, resolved. Chronic kidney disease, rule out hepatorenal syndrome. Severe hyperammonemia. Lactic acidosis. History of hyperlipidemia. History of hypertension. History of liver cirrhosis. Recurrent ascites, status post frequent paracentesis abdominis. History of depression and PTSD. History of chronic tobacco use. Anemia of chronic disease. Plan: Plan dated October 19, 2023. The patient was transferred down to the intensive care unit, where he was evaluated. The patient is electively intubated, and we also placed a left subclavian triple-lumen catheter, and a right radial art line, for better monitoring and management. Labs, x-rays, medications are reviewed. The patient is initially placed on vent settings of volume assist-control, rate 20, tidal volume 400, FiO2 100%, PEEP of 5. Additional recommendations and suggestions are forthcoming. The medication list is reviewed. Unnecessary medications were discontinued. I did speak to the surgeon about this patient. If the patient shows further deterioration, will attempt to transfer the patient to a facility that deals in patients with severe liver disease. Plan dated October 20, 2023. The patient is seen again today in room 263. He was transferred down to the intensive care unit yesterday, where, he was intubated, and had an arterial line placed, and a central line placed. The patient has hepatic encephalopathy, and more recently, has been having issues with low blood pressure. He was started on norepinephrine, which is currently running at 3 mcg/min. He continues on propofol, and also D5W with 3 ampoules of sodium bicarbonate at 80 cc an hour. Tube feedings will be started today. A head CT which was done yesterday was negative. The patient will get a EEG performed. In addition, I have asked the nurse to give the patient Ativan 2 mg, to see if the tremors stop. Plan dated October 21, 2023. The patient is again seen in the intensive care unit. He remains on mechanical ventilator. He is currently on propofol, a sodium bicarbonate drip, fentanyl, and tube feedings with vital AF. He continues on Rocephin. Blood gases show pO2 of 64, pCO2 37, pH is 7.47. Labs, x-rays, medications are all reviewed. Prognosis is guarded. Culture data is thus far negative. We will continue to follow make recommendations along the way. The patient's overall prognosis remains extremely poor. Plan dated October 22, 2023. The patient is seen in the intensive care unit, room 263. He remains on mechanical ventilator. The patient also remains on norepinephrine at 9 mcg/min, propofol at 50 mcg/kg/min, and fentanyl at 1 mcg/kg/h. The patient is on Dilaudid, and will try to wean the patient off of fentanyl. The patient continues on Rocephin. The patient will receive 1 unit of packed red blood cells, for hemoglobin of 6.6. Blood gases show pO2 of 68, pCO2 of 45, pH is 7.41. Labs, x-rays, and medications are reviewed. The patient's overall prognosis remains guarded. We will continue to follow the patient, make recommendations along the way. Plan dated May 24, 2023. The patient was seen in the intensive care unit, room 263. The patient remains on mechanical ventilator. The patient is getting lactated Ringer's at 75 cc an hour, propofol at 45 mcg/kg/min, and norepinephrine at 7.7 mcg/min. The patient is getting vital AF at 10 cc an hour. Will check a procalcitonin level. The patient continues on Zosyn. Will do a daily interruption of sedation, without a spontaneous breathing trial. Labs, x-rays, and all medications are reviewed. The patient's overall prognosis remains very poor. We will continue to follow make recommendations along the way. Time with Patient: Greater than 30
--- NOTE | 2023-10-23 13:22 | P.PN ---
Subjective Progress Note Date: 10/23/23 Principal diagnosis: Incarcerated umbilical hernia Patient is stable on the ventilator. Tolerating tube feeds at 10 cc/h. CHRIS drain serosanguineous. Still having loose stools. Objective - Vital Signs Vital signs: Vital Signs Temp 97.7 F 10/23/23 12:00 Pulse 75 10/23/23 12:45 Resp 20 10/23/23 12:45 BP 114/49 10/23/23 12:45 Pulse Ox 95 10/23/23 12:45 FiO2 40 10/23/23 12:00 Intake & Output 10/22/23 10/23/23 10/23/23 18:59 06:59 18:59 Intake Total 2389.648 7584.536 732.971 Output Total 600 695 270 Balance 0303.161 7019.536 462.971 Weight 86.1 kg 86.1 kg Intake: IV 1230 1036 393 Albumin Human 25% 50 ml @ 100 50 mls/hr IV DAILY@1000 [facility] Rx#:[id number] Lactated Ringers 1,000 ml 900 900 375 @ 50 mls/hr IV .Q20H [facility] Rx#:[id number] Piperacillin-Tazobactam 3 100 100 .375 gm In Sodium Chloride 0.9% 100 ml @ 25 mls/hr IVPB Q8H [facility] Rx#: [id number] Pressure Bag 30 36 18 cefTRIAXone 2 gm In 100 Sodium Chloride 0.9% 50 ml @ 100 mls/hr IVPB Q24HR [facility] Rx#:[id number] Intake, IV Titration 238.962 670.536 259.971 Amount Norepinephrine 4 mg In 470.536 138.778 Sodium Chloride 0.9% 250 ml @ 0.03 MCG/KG/MIN 9. 201 mls/hr IV .Q24H [facility] Rx#:[id number] fentaNYL (PF). 1,000 mcg 62.085 In Sodium Chloride 0.9% 80 ml @ 0.5 MCG/KG/HR 3. 805 mls/hr IV .Q24H [facility] Rx#:[id number] propofoL 1,000 mg In 176.877 200 121.193 Empty Bag 1 bag @ 15 MCG/ KG/MIN 7.245 mls/hr IV . [id number] [facility] Rx#:[id number] Tube Feeding 172 50 80 Blood Product 310 Rc As-1 Unit 310 [id number] Other 30 Output: Drainage 20 0 0 Lower Abdomen 20 0 0 Urine 405 570 270 Stool 175 125 Other: Voiding Method Indwelling Catheter ABP, PAP, CO, CI - Last Documented Arterial Blood Pressure 121/52 - Exam Abdomen: Soft, mild distention, Prevena dressing in place, CHRIS in place - Labs CBC & Chem 7: 10/23/23 04:13 10/23/23 04:13 Labs: Abnormal Lab Results - Last 24 Hours (Table) 10/22/23 10/22/23 10/23/23 Range/Units 17:46 23:27 04:12 WBC (3.8-10.6) k/uL RBC (4.30-5.90) m/uL Hgb (13.0-17.5) gm/dL Hct (39.0-53.0) % MCHC (31.0-37.0) g/dL RDW (11.5-15.5) % Plt Count (150-450) k/uL Neutrophils # (1.3-7.7) k/uL Lymphocytes # (1.0-4.8) k/uL ABG HCO3 (21-25) mmol/L ABG Total CO2 (19-24) mmol/L ABG O2 Saturation (94-97) % BUN (9-20) mg/dL Creatinine (0.66-1.25) mg/dL Glucose (74-99) mg/dL POC Glucose (mg/dL) 137 H 145 H 148 H (70-110) mg/dL Calcium (8.4-10.2) mg/dL Total Bilirubin (0.2-1.3) mg/dL Total Protein (6.3-8.2) g/dL Albumin (3.5-5.0) g/dL 10/23/23 10/23/23 10/23/23 Range/Units 04:13 04:13 06:28 WBC 12.7 H (3.8-10.6) k/uL RBC 3.04 L (4.30-5.90) m/uL Hgb 7.8 L (13.0-17.5) gm/dL Hct 26.0 L (39.0-53.0) % MCHC 29.9 L (31.0-37.0) g/dL RDW 19.2 H (11.5-15.5) % Plt Count 75 L (150-450) k/uL Neutrophils # 11.2 H (1.3-7.7) k/uL Lymphocytes # 0.6 L (1.0-4.8) k/uL ABG HCO3 28 H (21-25) mmol/L ABG Total CO2 29 H (19-24) mmol/L ABG O2 Saturation 97.3 H (94-97) % BUN 47 H (9-20) mg/dL Creatinine 1.35 H (0.66-1.25) mg/dL Glucose 138 H (74-99) mg/dL POC Glucose (mg/dL) (70-110) mg/dL Calcium 8.0 L (8.4-10.2) mg/dL Total Bilirubin 2.4 H (0.2-1.3) mg/dL Total Protein 5.1 L (6.3-8.2) g/dL Albumin 3.1 L (3.5-5.0) g/dL // Range/Units 11:59 WBC (3.8-10.6) k/uL RBC (4.30-5.90) m/uL Hgb (13.0-17.5) gm/dL Hct (39.0-53.0) % MCHC (31.0-37.0) g/dL RDW (11.5-15.5) % Plt Count (150-450) k/uL Neutrophils # (1.3-7.7) k/uL Lymphocytes # (1.0-4.8) k/uL ABG HCO3 (21-25) mmol/L ABG Total CO2 (19-24) mmol/L ABG O2 Saturation (94-97) % BUN (9-20) mg/dL Creatinine (0.66-1.25) mg/dL Glucose (74-99) mg/dL POC Glucose (mg/dL) 141 H (70-110) mg/dL Calcium (8.4-10.2) mg/dL Total Bilirubin (0.2-1.3) mg/dL Total Protein (6.3-8.2) g/dL Albumin (3.5-5.0) g/dL Microbiology - Last 24 Hours (Table) 10/19/23 12:15 Blood Culture Gram Stain - Preliminary Blood Blood Culture - Preliminary 10/19/23 12:19 Blood Culture - Preliminary Blood Assessment and Plan (1) Incarcerated umbilical hernia Narrative/Plan: Patient remains on the ventilator. Continue ventilatory weaning. Monitor abdominal distention. Will likely reach out to interventional radiology on Thursday for therapeutic paracentesis given his gradual increase in distention. Continue tube feeds low-dose at this time. Current Visit: Yes Status: Acute Code(s): K42.0 - UMBILICAL HERNIA WITH OBSTRUCTION, WITHOUT GANGRENE SNOMED Code(s): 137668227
[2023-10-23] MEDS: METOCLOPRAMIDE 5 MG/ML 2 ML VIAL IVP SCH (13:39)
[2023-10-23 17:59] LABS: Glucose,Whole Blood 141 mg/dL (70-110)
[2023-10-24 04:48] LABS: Glucose,Whole Blood 123 mg/dL (70-110)
[2023-10-24 05:05] LABS: Anisocytosis Slight; Basophils # (A) 0.1 k/uL (0-0.2); Basophils % (A) 0 %; Eosinophils # (A) 0.6 k/uL (0-0.7); Eosinophils % (A) 3 %; HCT 24.8 % (39.0-53.0); HGB 7.4 gm/dL (13.0-17.5); Hypochromasia Marked; Lymphocytes % (A) 6 %; MCH 25.7 pg (25.0-35.0); MCV 85.6 fL (80.0-100.0); Monocytes % (A) 5 %; Neutrophils # (A) 14.7 k/uL (1.3-7.7); Neutrophils % (A) 83 %; Poikilocytosis Slight; RDW 19.4 % (11.5-15.5); WBC 17.6 k/uL (3.8-10.6)
[2023-10-24 05:12] LABS: ALT 9 U/L (4-49); AST 23 U/L (17-59); African American GFR (CKD) 74 (>60 ml/min/1.73 sqM); Alkaline Phosphatase 77 U/L (38-126); Anion Gap 9 mmol/L; Blood Urea Nitrogen 51 mg/dL (9-20); Calcium 8.2 mg/dL (8.4-10.2); Carbon Dioxide 26 mmol/L (22-30); Chloride 107 mmol/L (98-107); Glucose 111 mg/dL (74-99); Non-African American GFR(CKD) 64 (>60 ml/min/1.73 sqM); Potassium 3.6 mmol/L (3.5-5.1); Sodium 142 mmol/L (137-145); Total Bilirubin 2.2 mg/dL (0.2-1.3); Total Protein 5.2 g/dL (6.3-8.2)
[2023-10-24 05:22] LABS: Platelet Count 98 k/uL (150-450)
--- NOTE | 2023-10-24 06:02 | XR ---
EXAMINATION TYPE: XR chest 1V portable DATE OF EXAM: 10/24/2023 CLINICAL HISTORY: Difficulty breathing progress study. TECHNIQUE: Single AP portable upright view of the chest is obtained. COMPARISON: Chest x-ray from one day earlier FINDINGS: Stable endotracheal and orogastric tubes. Stable left-sided central venous catheter. Persistent low lung volumes and bibasilar opacities. Cardiac silhouette size stable and within normal limits. Osseous structures are intact. IMPRESSION: Persistent low lung volumes with bibasilar acute infiltrates and/or atelectasis and likel y small right pleural effusion. No significant change from most recent chest x-ray.
[2023-10-24 06:09] LABS: ABG Base Excess 2.6 mmol/L; ABG HCO3 27 mmol/L (21-25); ABG Oxygen Saturation 94.4 % (94-97); ABG PCO2 39 mmHg (35-45); ABG PH 7.44 (7.35-7.45); ABG PO2 69 mmHg (83-108); ABG TCO2 28 mmol/L (19-24); Allen Test Performed? Yes
[2023-10-24] MEDS: POTASSIUM BICARBONATE/CIT AC 20 MEQ TABLET.EFF NG-TUBE SCH ×2 (06:47→12:38)
--- NOTE | 2023-10-24 09:03 | P.PN ---
Subjective Patient is seen in follow-up for acute kidney injury. Renal function stable with creatinine 1.36. Receiving tube feeds. Intubated. On Levophed. Vital signs are stable. On vasopressor support. General: Resting in bed. HEENT: Intubated. LUNGS: Scattered rhonchi. HEART: Rate and Rhythm are regular. ABDOMEN: Distention noted. EXTREMITITES: No edema. Objective - Vital Signs Vital signs: Vital Signs Temp 97.9 F 10/24/23 08:15 Pulse 94 10/24/23 08:35 Resp 18 10/24/23 08:15 BP 110/60 10/24/23 08:15 Pulse Ox 93 L 10/24/23 08:15 FiO2 30 10/24/23 08:21 Intake & Output 10/23/23 10/24/23 10/24/23 18:59 06:59 18:59 Intake Total 5712.297 3468.871 358.312 Output Total 535 505 105 Balance 843.736 874.871 253.312 Weight 86.1 kg 88.5 kg Intake: IV 811 836 159 Lactated Ringers 1,000 ml 675 600 150 @ 50 mls/hr IV .Q20H [facility] Rx#:[id number] Piperacillin-Tazobactam 3 100 200 .375 gm In Sodium Chloride 0.9% 100 ml @ 25 mls/hr IVPB Q8H [facility] Rx#: [id number] Pressure Bag 36 36 9 Intake, IV Titration 367.736 303.871 79.312 Amount Norepinephrine 4 mg In 196.131 249.654 28.114 Sodium Chloride 0.9% 250 ml @ 0.03 MCG/KG/MIN 9. 201 mls/hr IV .Q24H [facility] Rx#:[id number] propofoL 1,000 mg In 171.605 54.217 51.198 Empty Bag 1 bag @ 15 MCG/ KG/MIN 7.245 mls/hr IV . [id number] [facility] Rx#:[id number] Tube Feeding 200 240 60 Other 60 Output: Drainage 10 5 Lower Abdomen 10 5 Urine 525 500 105 Other: Voiding Method Indwelling Catheter Indwelling Catheter ABP, PAP, CO, CI - Last Documented Arterial Blood Pressure 113/49 - Labs CBC & Chem 7: 10/24/23 04:45 10/24/23 04:45 Labs: Abnormal Lab Results - Last 24 Hours (Table) 10/23/23 10/23/23 10/23/23 Range/Units 04:13 11:59 17:57 WBC (3.8-10.6) k/uL RBC (4.30-5.90) m/uL Hgb (13.0-17.5) gm/dL Hct (39.0-53.0) % MCHC (31.0-37.0) g/dL RDW (11.5-15.5) % Plt Count (150-450) k/uL Neutrophils # (1.3-7.7) k/uL ABG pO2 (83-108) mmHg ABG HCO3 (21-25) mmol/L ABG Total CO2 (19-24) mmol/L BUN (9-20) mg/dL Creatinine (0.66-1.25) mg/dL Glucose (74-99) mg/dL POC Glucose (mg/dL) 141 H 141 H (70-110) mg/dL Calcium (8.4-10.2) mg/dL Total Bilirubin (0.2-1.3) mg/dL Total Protein (6.3-8.2) g/dL Albumin (3.5-5.0) g/dL Procalcitonin 3.62 H (0.02-0.09) ng/mL 10/24/23 10/24/23 10/24/23 Range/Units 04:45 04:45 04:46 WBC 17.6 H (3.8-10.6) k/uL RBC 2.90 L (4.30-5.90) m/uL Hgb 7.4 L (13.0-17.5) gm/dL Hct 24.8 L (39.0-53.0) % MCHC 30.0 L (31.0-37.0) g/dL RDW 19.4 H (11.5-15.5) % Plt Count 98 L (150-450) k/uL Neutrophils # 14.7 H (1.3-7.7) k/uL ABG pO2 (83-108) mmHg ABG HCO3 (21-25) mmol/L ABG Total CO2 (19-24) mmol/L BUN 51 H (9-20) mg/dL Creatinine 1.36 H (0.66-1.25) mg/dL Glucose 111 H (74-99) mg/dL POC Glucose (mg/dL) 123 H (70-110) mg/dL Calcium 8.2 L (8.4-10.2) mg/dL Total Bilirubin 2.2 H (0.2-1.3) mg/dL Total Protein 5.2 L (6.3-8.2) g/dL Albumin 3.0 L (3.5-5.0) g/dL Procalcitonin (0.02-0.09) ng/mL 10/24/23 Range/Units 06:04 WBC (3.8-10.6) k/uL RBC (4.30-5.90) m/uL Hgb (13.0-17.5) gm/dL Hct (39.0-53.0) % MCHC (31.0-37.0) g/dL RDW (11.5-15.5) % Plt Count (150-450) k/uL Neutrophils # (1.3-7.7) k/uL ABG pO2 69 L (83-108) mmHg ABG HCO3 27 H (21-25) mmol/L ABG Total CO2 28 H (19-24) mmol/L BUN (9-20) mg/dL Creatinine (0.66-1.25) mg/dL Glucose (74-99) mg/dL POC Glucose (mg/dL) (70-110) mg/dL Calcium (8.4-10.2) mg/dL Total Bilirubin (0.2-1.3) mg/dL Total Protein (6.3-8.2) g/dL Albumin (3.5-5.0) g/dL Procalcitonin (0.02-0.09) ng/mL Microbiology - Last 24 Hours (Table) 10/19/23 12:15 Blood Culture Gram Stain - Preliminary Blood Blood Culture - Preliminary Assessment and Plan Plan: Assessment: 1. Acute kidney injury secondary to ATN secondary to hypotension. No evidence of hydronephrosis noted on CAT scan done September 04, 2023. 2. Alcohol induced liver cirrhosis. 3. Metabolic acidosis secondary to acute kidney injury. Improved. 4. Status post open repair of incarcerated umbilical hernia and embolectomy on October 16, 2023. 5. Hepatic encephalopathy. 6. Acute hypoxic respiratory failure. Currently intubated. Plan: Maintain tube feeds and gentle IV hydration. Possible paracentesis Thursday. 25 g IV albumin pre and post paracentesis. Maintain midodrine. Wean Levophed. Avoid nephrotoxins. Continue to monitor renal function and urine output.
--- NOTE | 2023-10-24 10:05 | P.PN ---
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 He presented to the emergency department on 10/16/23 with a chief complaint of intractable abdominal pain and reports umbilical hernia is now nonreducible. Vital signs upon arrival showed BP 115/69, HR 76, RR 18, T 97.8 F, and SpO2 100% on RA. EKG showed normal sinus rhythm at 63 bpm with no noted T wave or ST abnormalities. CBC showing bicytopenia with Hg 7.9 and Plt 98. Coagulation profile showed PT of 14.7 and INR 1.4. BMP showing Na 133, Cl 110, bicarb of 13, and anion gap of 10, BUN of 35, creatinine 1.65, GFR 51. Blood glucose was 119. Lactic acid was 1.8. Liver profile was unremarkable. Patient was evaluated by general surgeon, he is being admitted to general surgery team with plans to be taken to the OR for open surgical repair of incarcerated umbilical hernia. We were consulted for preoperative medical clearance and postoperative medical management. On 10/15 patient underwent open repair of incarcerated umbilical hernia with umbillectomy. Renal function continued to worsen. Patient was started on albumin and octreotide. Midodrine was increased and Nephrology was consulted. Patient was started on bicarb drip. Patient became encephalopathic on 10/18. St arted on rectal lactulose and transferred to medical ICU. His mentation continued to worsen, and he was intubated. Also started on Rocephin for concerns of SBP on 10/18. There is concern for GI bleed as well. 10/20 Intubated. Generalized tremors noted on 10/19, CT brain was negative for acute pathology and EEG showed moderate to severe background slowing. Started on Fentanyl drip at 1 mcg/kg/hr which improved his tremors, likely related to pain. Levophed running at 0.05 mcg/kg/min. Sedated with propofol at 50 mcg/kg/min. 10/21 Intubated. Fentanyl drip at 1 mcg/kg/hr. Levophed running at 0.15 m cg/kg/min. Sedated with propofol at 50 mcg/kg/min. CXR shows right sided infiltrates. Antibiotics switched from Rocephin to Zosyn (D1). Plans to transfuse 1 unit PRBC. 10/22 Intubated. Fentanyl drip weaned off this morning. Levophed running at 0.11 mcg/kg/min. Sedated with propofol at 50 mcg/kg/min. Antibiotics include Zosyn 3.375g IV TID (D2). 10/23 Patient was seen and examined. Intubated. Levophed running at 0.04 mcg/kg/min. Sedated with propofol at 20 mcg/kg/min. Currently on LR at 50 cc/hr + NS at 10 cc/hr. Surgery recommends IR consult for paracentesis on Thursday. CBC WBC 17.6, Hg 7.4, Hct 24.8, Plt 98. ABG pH 7.44, pCO2 39, HCO3 26, O2 94.4 on FiO2 30. CMP BUN 51, Cr 1.36, glu 111, Ca 8.2, T. Bili 2.2, alb 3. Ammonia 22. CXR shows persistent bibasilar infiltrates. Pro-mony is elevated at 3.62. Antibiotics include Zosyn 3.375g IV TID (D3). General: Intubated sedated Derm: Warm, dry, jaundice Head: Atraumatic, normocephalic, symmetric Eyes: Scleral icterus, pupils equal and reactive Mouth: No lip lesion, mucus membranes moist Cardiovascular: S1S2 reg, no murmur Lungs: Coarse BS bilateral, no rhonchi, no rales, no accessory muscle use, intubated Abdominal: Slightly distended, nontender to palpation, no guarding, no appreciable organomegaly, midline dressing clean, dry, intact, + Epps Ext: Gross muscle atrophy Neuro: Sedated Psych: Unable to assess Ventilator dependent respiratory failure: Pulm toileting. Vent managed by Pulmonary. Possible pneumonia: Started on Zosyn 10/21 should cover for both SBP and possible aspiration PNA. Pro-mony elevated. Obtain sputum Cx. Acute hepatic encephalopathy: Lactulose 20g PO TID. Suspected spontaneous bacterial peritonitis: Ascitic fluid culture negative. BCx negative. Sputum Cx negative. Rocephin switched to Zosyn 3.375g IV TID (D3). Septic shock likely secondary to above: Antibiotics as above. Titrate Levophed to MAP > 65. Telemetry monitoring. Acute GI bleed: 1 unit PRBC 10/21. Surgery on board recommending continued monitoring. Protonix 40 mg IV QD. Transfuse if Hg < 7. IVAN, secondary to suspected hepatorenal syndrome, history of CKD stage III: Nephrology recommends continuing LR, midodrine and Sandostatin along with al bumin. Tremors: Likely pain related. CT brain negative. EEG mod-severe encaphalopathy. Improved with Fentanyl. History of advanced liver cirrhosis: Continue Albumin 12.5g IV QD, Midodrine 15 mg PO TID, Octreotide 100mcg subQ every 8 hours. Bicytopenia secondary to liver cirrhosis Elevated INR Incarcerated/strangulated umbilical hernia status post open repair: Management per general surgery Resolved: Metabolic and lactic acidosis CODE STATUS: FULL CODE DVT Prophylaxis: SCD GI Prophylaxis: Protonix IV Designated medical POA if patient is not able to make medical decisions for themselves: I have reviewed the following franchise field consultant notes: Pulmonary, Surgery, Nephrology. I have reviewed the results of the following tests: CBC, CMP, ABG I have ordered the following tests: CBC and CMP in the AM. Daily CXR. Sputum Cx. I have discussed the care of this patient with the following independent hist orian: I have independently interpreted the following test below: CXR I have discussed the management of this patient with the following physician: Objective - Vital Signs Vital signs: Vital Signs Temp 98.3 F 10/24/23 04:00 Pulse 90 10/24/23 07:00 Resp 20 10/24/23 07:00 BP 114/55 10/24/23 07:00 Pulse Ox 90 L 10/24/23 07:00 FiO2 30 10/24/23 04:00 Intake & Output 10/23/23 10/24/23 10/24/23 18:59 06:59 18:59 Intake Total 8721.075 6431.871 73 Output Total 535 505 20 Balance 843.736 874.871 53 Weight 86.1 kg Intake: IV 811 836 53 Lactated Ringers 1,000 ml 675 600 50 @ 50 mls/hr IV .Q20H [facility] Rx#:[id number] Piperacillin-Tazobactam 3 100 200 .375 gm In Sodium Chloride 0.9% 100 ml @ 25 mls/hr IVPB Q8H [facility] Rx#: [id number] Pressure Bag 36 36 3 Intake, IV Titration 367.736 303.871 Amount Norepinephrine 4 mg In 196.131 249.654 Sodium Chloride 0.9% 250 ml @ 0.03 MCG/KG/MIN 9. 201 mls/hr IV .Q24H [facility] Rx#:[id number] propofoL 1,000 mg In 171.605 54.217 Empty Bag 1 bag @ 15 MCG/ KG/MIN 7.245 mls/hr IV . [id number] [facility] Rx#:[id number] Tube Feeding 200 240 20 Output: Drainage 10 5 Lower Abdomen 10 5 Urine 525 500 20 Other: Voiding Method Indwelling Catheter Indwelling Catheter ABP, PAP, CO, CI - Last Documented Arterial Blood Pressure 114/50 - Labs CBC & Chem 7: 10/24/23 04:45 10/24/23 04:45 Labs: Abnormal Lab Results - Last 24 Hours (Table) 10/23/23 10/23/23 10/23/23 Range/Units 04:13 11:59 17:57 WBC (3.8-10.6) k/uL RBC (4.30-5.90) m/uL Hgb (13.0-17.5) gm/dL Hct (39.0-53.0) % MCHC (31.0-37.0) g/dL RDW (11.5-15.5) % Plt Count (150-450) k/uL Neutrophils # (1.3-7.7) k/uL ABG pO2 (83-108) mmHg ABG HCO3 (21-25) mmol/L ABG Total CO2 (19-24) mmol/L BUN (9-20) mg/dL Creatinine (0.66-1.25) mg/dL Glucose (74-99) mg/dL POC Glucose (mg/dL) 141 H 141 H (70-110) mg/dL Calcium (8.4-10.2) mg/dL Total Bilirubin (0.2-1.3) mg/dL Total Protein (6.3-8.2) g/dL Albumin (3.5-5.0) g/dL Procalcitonin 3.62 H (0.02-0.09) ng/mL 10/24/23 10/24/23 10/24/23 Range/Units 04:45 04:45 04:46 WBC 17.6 H (3.8-10.6) k/uL RBC 2.90 L (4.30-5.90) m/uL Hgb 7.4 L (13.0-17.5) gm/dL Hct 24.8 L (39.0-53.0) % MCHC 30.0 L (31.0-37.0) g/dL RDW 19.4 H (11.5-15.5) % Plt Count 98 L (150-450) k/uL Neutrophils # 14.7 H (1.3-7.7) k/uL ABG pO2 (83-108) mmHg ABG HCO3 (21-25) mmol/L ABG Total CO2 (19-24) mmol/L BUN 51 H (9-20) mg/dL Creatinine 1.36 H (0.66-1.25) mg/dL Glucose 111 H (74-99) mg/dL POC Glucose (mg/dL) 123 H (70-110) mg/dL Calcium 8.2 L (8.4-10.2) mg/dL Total Bilirubin 2.2 H (0.2-1.3) mg/dL Total Protein 5.2 L (6.3-8.2) g/dL Albumin 3.0 L (3.5-5.0) g/dL Procalcitonin (0.02-0.09) ng/mL 10/24/23 Range/Units 06:04 WBC (3.8-10.6) k/uL RBC (4.30-5.90) m/uL Hgb (13.0-17.5) gm/dL Hct (39.0-53.0) % MCHC (31.0-37.0) g/dL RDW (11.5-15.5) % Plt Count (150-450) k/uL Neutrophils # (1.3-7.7) k/uL ABG pO2 69 L (83-108) mmHg ABG HCO3 27 H (21-25) mmol/L ABG Total CO2 28 H (19-24) mmol/L BUN (9-20) mg/dL Creatinine (0.66-1.25) mg/dL Glucose (74-99) mg/dL POC Glucose (mg/dL) (70-110) mg/dL Calcium (8.4-10.2) mg/dL Total Bilirubin (0.2-1.3) mg/dL Total Protein (6.3-8.2) g/dL Albumin (3.5-5.0) g/dL Procalcitonin (0.02-0.09) ng/mL Microbiology - Last 24 Hours (Table) 10/19/23 12:15 Blood Culture Gram Stain - Preliminary Blood Blood Culture - Preliminary
[2023-10-24] MEDS: FUROSEMIDE 10 MG/ML 4 ML VIAL IV STA (10:10)
--- NOTE | 2023-10-24 11:19 | P.PN ---
Subjective Progress Note Date: 10/24/23 Principal diagnosis: Respiratory failure. Pulmonary consult dated October 19, 2023. 44-year-old male who presented to the emergency department, on October 15, complaining of abdominal pain. The patient has a history of chronic liver disease from alcohol abuse, with cirrhosis and ascites, and need for periodic paracentesis abdominis. The patient has a known history of a umbilical hernia, which she is able to typically reduce, but because he was not able to reduce it, he came in to be evaluated. The patient ended up having surgery, last Thursday, on the , and initially was doing okay. This morning I was called by the surgeon, and my charge nurse in the intensive care unit, to say that the patient was doing poorly, and should be transferred down to the intensive care unit for further monitoring and management. The patient was very lethargic, and looked very unstable, with impending respiratory failure. When I first saw the patient he was on room air, and receiving an IV with 3 ampoules of sodium bicarb in D5W at 80 cc an hour. I asked for stat blood gas, when the patient came to the intensive care unit. His pO2 was 40, pCO2 27, pH is 7.41. After evaluating the patient, I decided to intubate the patient which we did, and place a central line and arterial line, both of which we did. Current laboratory data includes a blood gas showing a pO2 of 393, pCO2 41, pH is 7.26. Saturations are 100%. White count is 18.9, hemoglobin 8.3, hematocrit 26.3, and a platelet count of 156,000. Sodium 137, potassium 4.5, chlorides 106, CO2 14, anion gap 17, BUN 69.6, and creatinine 3. Glucose was 126. Lactic acid was 2.8. Bilirubin was 1.5. Ammonia level was up to 259. Cultures of the ascitic fluid are thus far negative. Chest x-ray shows endotracheal tube to be in good position. Central line is in good position, without complication. Progress note dated October 20, 2023. The patient is seen today in room 263. The patient was intubated, and lined yesterday, for respiratory failure. The patient has a history of chronic liver disease, with cirrhosis, ascites, and encephalopathy. Currently, the patient is on volume assist-control, rate 20, tidal volume 400, FiO2 40%, PEEP of 5. Blood gases show pO2 108, pCO2 28, pH is 7.46. This blood gases consistent with a mild respiratory alkalosis. The patient is getting D5W with 3 ampoules of sodium bicarbonate at 80 cc an hour. The patient is getting norepinephrine at 3 mcg/min, propofol at 50 mcg/kg/min. The patient has been having tremor-like activity, and could be seizing. The brain CT was negative. The patient will have tube feedings beginning today. We have ordered an EEG. In addition, I have asked the nurse to give the patient 2 mg of Ativan, to see if the tremors cease. White count is 13, hemoglobin 7, hematocrit 23, platelet count 106,000. Sodium 138, potassium 3.5, chlorides 111, CO2 17, anion gap 10, BUN 63, creatinine 2.27. Glucose is 160. Ammonia level is down to 49. Albumin is 3.1. Thus far, cultures are negative. The patient's chest x-ray shows the endotracheal tube to be high in the trachea, and have asked respiratory therapy to push it down to 1.5 cm. Progress note dated October 21, 2023. The patient is seen today in room 263. He remains on mechanical ventilator. He is on volume assist-control, rate 20, tidal volume 400, FiO2 40%, PEEP of 5. Blood gases show pO2 of 64, pCO2 37, pH is 7.47. The patient is getting propofol at 50 mcg/kg/min, D5W with 3 ampoules of bicarbonate at 80 cc an hour, fentanyl drip at 1 mcg/kg/h, vital AF at 29 cc an hour, with a goal of 43 cc an hour. The patient also continues on Rocephin. White count is 10.3, hemoglobin 7, hematocrit 22.8, and platelet count 109,000. Sodium 137, potassium 3.7, chlorides 104, CO2 24, BUN 54, and creatinine 1.76. Glucose is 116. Ammonia level is 56. Calcium is 7.7. Cultures are thus far negative. Chest x-ray is unchanged. There is a small left pleural effusion. NG tube, endotracheal tube, and central venous catheter, are in appropriate positions. Progress note dated October 22, 2023. 43-year-old male seen again in the intensive care unit, room 263. He remains on the mechanical ventilator. The patient's ventilator settings include volume assist-control, rate 20, tidal volume 400, FiO2 40%, PEEP of 5. Blood gases show pO2 68, pCO2 45, pH is 7.41. The patient is on norepinephrine at 9 mcg/min, propofol at 50 mcg/kg/min, lactated Ringer's at 75 cc an hour, and fent anyl at 1 mcg/kg/h. The patient is getting tube feedings with vital AF at 43 cc an hour, which is goal. Microbiologic studies are thus far negative. The patient is on Rocephin. He has received 1 unit of packed red blood cells. Current labs include a white count 10.5, hemoglobin 6.6, hematocrit 22.2, and a platelet count of 97,000. Sodium 138, potassium 3.4, chlorides 106, CO2 26, BUN 53, creatinine 1.78. Glucose is 140. Albumin is 2.8. Total bilirubin is 1.4. Chest x-ray shows air space opacities, in the lung bases, which have worsened. Lines and tubes are in good placement. Note dated October 23, 2023. 43-year-old male seen again in room 263. He remains on mechanical ventilator. Vent settings include volume assist-control, rate 20, tidal volume 400, FiO2 40%, PEEP of 5. Blood gases show pO2 87, pCO2 44, pH is 7.40. The patient is getting lactated Ringer's at 75 cc an hour, propofol at 45 mcg/kg/min, norepinephrine at 7.7 mcg/min, and saline at 10 cc an hour. The patient is also getting vital AF, at 10 cc an hour. He continues on Zosyn. We will check a procalcitonin level. The patient will have a daily interruption of sedation, without a spontaneous breathing trial today. Current labs include a white count of 12.7, hemoglobin 7.8, hematocrit 26, platelet count 75,000. Sodium 138, potassium 4.1, chlorides 105, CO2 26, BUN 47, creatinine 1.35. Glucose is 141. Albumin is 3.1. Cultures thus far negative including blood and sputum. Chest x-ray shows the OG tube, to remain in satisfactory position. There is persistent bibasilar infiltrates and/or atelectasis. Progress note dated October 24, 2023. 43-year-old male seen again in room 263. The patient remains on the mechanical ventilator. He is on volume assist-control, rate 20, tidal volume 400, FiO2 3 0%, PEEP of 5. Blood gases show pO2 69, pCO2 39, and pH is 7.44. The patient remains on propofol at 20 mcg/kg/min, norepinephrine at 2.4 mcg/min, lactated Ringer's at 50 cc an hour, and saline at 10 cc an hour. Patient is getting vital AF at 20, with a goal at 20 cc an hour. The patient continues on Zosyn. His procalcitonin level was 3.62. He will get 1 dose of Lasix 40 mg IV push. His lactated Ringer's IV, will be made KVO. Current labs include a white count of 17.6, hemoglobin 7.4, hematocrit 24.8, and a platelet count of 98,000. Sodium 142, potassium 3.8, chlorides 107, CO2 26, BUN 51, creatinine 1.36. Calcium is 8.2. Albumin is 3.0. Ammonia level was 22. All cultures are thus far negative. Chest x-ray shows small lung volumes, with basilar infiltrates or atelectasis, and small effusions. Objective - Vital Signs Vital signs: Vital Signs Temp 97.9 F 10/24/23 08:15 Pulse 93 10/24/23 11:00 Resp 17 10/24/23 11:00 BP 117/57 10/24/23 10:20 Pulse Ox 91 L 10/24/23 11:00 FiO2 30 10/24/23 08:21 Intake & Output 10/23/23 10/24/23 10/24/23 18:59 06:59 18:59 Intake Total 1972.080 3639.871 499.740 Output Total 535 505 195 Balance 843.736 874.871 304.740 Weight 86.1 kg 88.5 kg Intake: IV 811 836 205 Lactated Ringers 1,000 ml 675 600 190 @ 20 mls/hr IV .Q24H [facility] Rx#:[id number] Piperacillin-Tazobactam 3 100 200 .375 gm In Sodium Chloride 0.9% 100 ml @ 25 mls/hr IVPB Q8H [facility] Rx#: [id number] Pressure Bag 36 36 15 Intake, IV Titration 367.736 303.871 134.740 Amount Norepinephrine 4 mg In 196.131 249.654 51.423 Sodium Chloride 0.9% 250 ml @ 0.03 MCG/KG/MIN 9. 201 mls/hr IV .Q24H [facility] Rx#:[id number] propofoL 1,000 mg In 171.605 54.217 83.317 Empty Bag 1 bag @ 15 MCG/ KG/MIN 7.245 mls/hr IV . [id number] [facility] Rx#:[id number] Tube Feeding 200 240 100 Other 60 Output: Drainage 10 5 Lower Abdomen 10 5 Urine 525 500 195 Other: Voiding Method Indwelling Catheter Indwelling Catheter ABP, PAP, CO, CI - Last Documented Arterial Blood Pressure 111/44 - Exam Sedated, with an orally placed endotracheal tube and NG tube noted. HEENT examination is grossly unremarkable. Mucous membranes are dry. Teeth are in very poor repair. Neck supple. Full range of motion. No adenopathy thyromegaly or neck vein distention. Cardiovascular examination reveals regular rhythm rate. S1-S2 normal. No S3 or S4. No discernible murmur noted. Heart rate 93 bpm. Lungs reveal scattered crackles and rhonchi. No wheezes. Breath sounds equal. Saturations are 93 %. Abdomen soft, without bowel sounds. No masses. Extremities are intact. No cyanosis clubbing or edema. Skin is jaundiced. Neurologic examination cannot be assessed at this time. - Labs CBC & Chem 7: 10/24/23 04:45 10/24/23 10:39 Labs: Abnormal Lab Results - Last 24 Hours (Table) 10/23/23 10/23/23 10/23/23 Range/Units 04:13 11:59 17:57 WBC (3.8-10.6) k/uL RBC (4.30-5.90) m/uL Hgb (13.0-17.5) gm/dL Hct (39.0-53.0) % MCHC (31.0-37.0) g/dL RDW (11.5-15.5) % Plt Count (150-450) k/uL Neutrophils # (1.3-7.7) k/uL ABG pO2 (83-108) mmHg ABG HCO3 (21-25) mmol/L ABG Total CO2 (19-24) mmol/L BUN (9-20) mg/dL Creatinine (0.66-1.25) mg/dL Glucose (74-99) mg/dL POC Glucose (mg/dL) 141 H 141 H (70-110) mg/dL Calcium (8.4-10.2) mg/dL Total Bilirubin (0.2-1.3) mg/dL Total Protein (6.3-8.2) g/dL Albumin (3.5-5.0) g/dL Procalcitonin 3.62 H (0.02-0.09) ng/mL 10/24/23 10/24/23 10/24/23 Range/Units 04:45 04:45 04:46 WBC 17.6 H (3.8-10.6) k/uL RBC 2.90 L (4.30-5.90) m/uL Hgb 7.4 L (13.0-17.5) gm/dL Hct 24.8 L (39.0-53.0) % MCHC 30.0 L (31.0-37.0) g/dL RDW 19.4 H (11.5-15.5) % Plt Count 98 L (150-450) k/uL Neutrophils # 14.7 H (1.3-7.7) k/uL ABG pO2 (83-108) mmHg ABG HCO3 (21-25) mmol/L ABG Total CO2 (19-24) mmol/L BUN 51 H (9-20) mg/dL Creatinine 1.36 H (0.66-1.25) mg/dL Glucose 111 H (74-99) mg/dL POC Glucose (mg/dL) 123 H (70-110) mg/dL Calcium 8.2 L (8.4-10.2) mg/dL Total Bilirubin 2.2 H (0.2-1.3) mg/dL Total Protein 5.2 L (6.3-8.2) g/dL Albumin 3.0 L (3.5-5.0) g/dL Procalcitonin (0.02-0.09) ng/mL 10/24/23 Range/Units 06:04 WBC (3.8-10.6) k/uL RBC (4.30-5.90) m/uL Hgb (13.0-17.5) gm/dL Hct (39.0-53.0) % MCHC (31.0-37.0) g/dL RDW (11.5-15.5) % Plt Count (150-450) k/uL Neutrophils # (1.3-7.7) k/uL ABG pO2 69 L (83-108) mmHg ABG HCO3 27 H (21-25) mmol/L ABG Total CO2 28 H (19-24) mmol/L BUN (9-20) mg/dL Creatinine (0.66-1.25) mg/dL Glucose (74-99) mg/dL POC Glucose (mg/dL) (70-110) mg/dL Calcium (8.4-10.2) mg/dL Total Bilirubin (0.2-1.3) mg/dL Total Protein (6.3-8.2) g/dL Albumin (3.5-5.0) g/dL Procalcitonin (0.02-0.09) ng/mL Microbiology - Last 24 Hours (Table) 10/19/23 12:15 Blood Culture Gram Stain - Preliminary Blood Blood Culture - Preliminary Assessment and Plan Assessment: S/P intubation and mechanical ventilation for impending respiratory failure, secondary to fulminant liver failure, October 19, 2023. Postop day #8, S/P repair of incarcerated umbilical hernia. Chronic liver disease/cirrhosis, and ascites, secondary to previous significant alcohol abuse. Anion gap metabolic acidosis, resolved. Chronic kidney disease, rule out hepatorenal syndrome. Severe hyperammonemia. Lactic acidosis. History of hyperlipidemia. History of hypertension. History of liver cirrhosis. Recurrent ascites, status post frequent paracentesis abdominis. History of depression and PTSD. History of chronic tobacco use. Anemia of chronic disease. Plan: Plan dated October 19, 2023. The patient was transferred down to the intensive care unit, where he was evaluated. The patient is electively intubated, and we also placed a left subclavian triple-lumen catheter, and a right radial art line, for better monitoring and management. Labs, x-rays, medications are reviewed. The patient is initially placed on vent settings of volume assist-control, rate 20, tidal volume 400, FiO2 100%, PEEP of 5. Additional recommendations and suggestions are forthcoming. The medication list is reviewed. Unnecessary medications were discontinued. I did speak to the surgeon about this patient. If the patient shows further deterioration, will attempt to transfer the patient to a facility that deals in patients with severe liver disease. Plan dated October 20, 2023. The patient is seen again today in room 263. He was transferred down to the intensive care unit yesterday, where, he was intubated, and had an arterial line placed, and a central line placed. The patient has hepatic encephalopathy, and more recently, has been having issues with low blood pressure. He was started on norepinephrine, which is currently running at 3 mcg/min. He continues on propofol, and also D5W with 3 ampoules of sodium bicarbonate at 80 cc an hour. Tube feedings will be started today. A head CT which was done yesterday was negative. The patient will get a EEG performed. In addition, I have asked the nurse to give the patient Ativan 2 mg, to see if the tremors stop. Plan dated October 21, 2023. The patient is again seen in the intensive care unit. He remains on mechanical ventilator. He is currently on propofol, a sodium bicarbonate drip, fentanyl, and tube feedings with vital AF. He continues on Rocephin. Blood gases show pO2 of 64, pCO2 37, pH is 7.47. Labs, x-rays, medications are all reviewed. Prognosis is guarded. Culture data is thus far negative. We will continue to follow make recommendations along the way. The patient's overall prognosis remains extremely poor. Plan dated October 22, 2023. The patient is seen in the intensive care unit, room 263. He remains on mechanical ventilator. The patient also remains on norepinephrine at 9 mcg/min, propofol at 50 mcg/kg/min, and fentanyl at 1 mcg/kg/h. The patient is on Dilaudid, and will try to wean the patient off of fentanyl. The patient continues on Rocephin. The patient will receive 1 unit of packed red blood cells, for hemoglobin of 6.6. Blood gases show pO2 of 68, pCO2 of 45, pH is 7.41. Labs, x-rays, and medications are reviewed. The patient's overall prognosis remains guarded. We will continue to follow the patient, make recommendations along the way. Plan dated May 24, 2023. The patient was seen in the intensive care unit, room 263. The patient remains on mechanical ventilator. The patient is getting lactated Ringer's at 75 cc an hour, propofol at 45 mcg/kg/min, and norepinephrine at 7.7 mcg/min. The patient is getting vital AF at 10 cc an hour. Will check a procalcitonin level. The patient continues on Zosyn. Will do a daily interruption of sedation, without a spontaneous breathing trial. Labs, x-rays, and all medications are reviewed. The patient's overall prognosis remains very poor. We will continue to follow make recommendations along the way. Plan dated May 25, 2023. The patient is again seen today in room 263. He remains on the mechanical ventilator. He is on multiple drips including propofol at 20 mcg/kg/min, norepinephrine at 2.4 mcg/min, and lactated Ringer's at 50 cc an hour, which will be turned down to KVO. The patient continues on Zosyn. Procalcitonin level was 3.62. All cultures are negative. The patient is on tube feedings, with vital AF at 20 cc an hour, which is goal. The patient will get 1 dose of Lasix 40 mg IV push. Labs, x-rays, and medications are reviewed. The patient's overall prognosis remains very guarded. We will continue to follow the patient, make recommendations. Time with Patient: Greater than 30
[2023-10-24 12:09] LABS: Glucose,Whole Blood 133 mg/dL (70-110)
[2023-10-24 18:22] LABS: Glucose,Whole Blood 125 mg/dL (70-110)
[2023-10-25 00:26] LABS: Glucose,Whole Blood 129 mg/dL (70-110)
[2023-10-25 04:19] LABS: Anisocytosis Slight; Basophils % (A) 0 %; Eosinophils # (A) 0.2 k/uL (0-0.7); Eosinophils % (A) 1 %; HCT 23.8 % (39.0-53.0); HGB 7.3 gm/dL (13.0-17.5); Hypochromasia Moderate; Lymphocytes # (A) 1.2 k/uL (1.0-4.8); Lymphocytes % (A) 6 %; MCH 26.2 pg (25.0-35.0); MCHC 30.6 g/dL (31.0-37.0); MCV 85.4 fL (80.0-100.0); Mean Platelet Volume 9.4; Monocytes % (A) 5 %; Neutrophils # (A) 16.3 k/uL (1.3-7.7); Neutrophils % (A) 85 %; Platelet Count 105 k/uL (150-450); RBC 2.79 m/uL (4.30-5.90); RDW 19.7 % (11.5-15.5); WBC 19.1 k/uL (3.8-10.6)
[2023-10-25 04:37] LABS: ALT 12 U/L (4-49); AST 29 U/L (17-59); African American GFR (CKD) 61 (>60 ml/min/1.73 sqM); Albumin 2.8 g/dL (3.5-5.0); Alkaline Phosphatase 87 U/L (38-126); Anion Gap 8 mmol/L; Blood Urea Nitrogen 62 mg/dL (9-20); Calcium 8.1 mg/dL (8.4-10.2); Carbon Dioxide 26 mmol/L (22-30); Chloride 109 mmol/L (98-107); Glucose 121 mg/dL (74-99); Non-African American GFR(CKD) 53 (>60 ml/min/1.73 sqM); Potassium 3.8 mmol/L (3.5-5.1); Sodium 143 mmol/L (137-145); Total Bilirubin 2.4 mg/dL (0.2-1.3); Total Protein 5.1 g/dL (6.3-8.2)
[2023-10-25 06:47] LABS: ABG Base Excess 3.4 mmol/L; ABG HCO3 28 mmol/L (21-25); ABG Oxygen Saturation 94.8 % (94-97); ABG PCO2 39 mmHg (35-45); ABG PH 7.46 (7.35-7.45); ABG PO2 70 mmHg (83-108); ABG TCO2 29 mmol/L (19-24); Allen Test Performed? Yes
[2023-10-25 06:59] LABS: Glucose,Whole Blood 131 mg/dL (70-110)
--- NOTE | 2023-10-25 09:15 | P.PN ---
Subjective Progress Note Date: 10/25/23 Principal diagnosis: Respiratory failure. Pulmonary consult dated October 19, 2023. 44-year-old male who presented to the emergency department, on October 15, complaining of abdominal pain. The patient has a history of chronic liver disease from alcohol abuse, with cirrhosis and ascites, and need for periodic paracentesis abdominis. The patient has a known history of a umbilical hernia, which she is able to typically reduce, but because he was not able to reduce it, he came in to be evaluated. The patient ended up having surgery, last Thursday, on the , and initially was doing okay. This morning I was called by the surgeon, and my charge nurse in the intensive care unit, to say that the patient was doing poorly, and should be transferred down to the intensive care unit for further monitoring and management. The patient was very lethargic, and looked very unstable, with impending respiratory failure. When I first saw the patient he was on room air, and receiving an IV with 3 ampoules of sodium bicarb in D5W at 80 cc an hour. I asked for stat blood gas, when the patient came to the intensive care unit. His pO2 was 40, pCO2 27, pH is 7.41. After evaluating the patient, I decided to intubate the patient which we did, and place a central line and arterial line, both of which we did. Current laboratory data includes a blood gas showing a pO2 of 393, pCO2 41, pH is 7.26. Saturations are 100%. White count is 18.9, hemoglobin 8.3, hematocrit 26.3, and a platelet count of 156,000. Sodium 137, potassium 4.5, chlorides 106, CO2 14, anion gap 17, BUN 69.6, and creatinine 3. Glucose was 126. Lactic acid was 2.8. Bilirubin was 1.5. Ammonia level was up to 259. Cultures of the ascitic fluid are thus far negative. Chest x-ray shows endotracheal tube to be in good position. Central line is in good position, without complication. Progress note dated October 20, 2023. The patient is seen today in room 263. The patient was intubated, and lined yesterday, for respiratory failure. The patient has a history of chronic liver disease, with cirrhosis, ascites, and encephalopathy. Currently, the patient is on volume assist-control, rate 20, tidal volume 400, FiO2 40%, PEEP of 5. Blood gases show pO2 108, pCO2 28, pH is 7.46. This blood gases consistent with a mild respiratory alkalosis. The patient is getting D5W with 3 ampoules of sodium bicarbonate at 80 cc an hour. The patient is getting norepinephrine at 3 mcg/min, propofol at 50 mcg/kg/min. The patient has been having tremor-like activity, and could be seizing. The brain CT was negative. The patient will have tube feedings beginning today. We have ordered an EEG. In addition, I have asked the nurse to give the patient 2 mg of Ativan, to see if the tremors cease. White count is 13, hemoglobin 7, hematocrit 23, platelet count 106,000. Sodium 138, potassium 3.5, chlorides 111, CO2 17, anion gap 10, BUN 63, creatinine 2.27. Glucose is 160. Ammonia level is down to 49. Albumin is 3.1. Thus far, cultures are negative. The patient's chest x-ray shows the endotracheal tube to be high in the trachea, and have asked respiratory therapy to push it down to 1.5 cm. Progress note dated October 21, 2023. The patient is seen today in room 263. He remains on mechanical ventilator. He is on volume assist-control, rate 20, tidal volume 400, FiO2 40%, PEEP of 5. Blood gases show pO2 of 64, pCO2 37, pH is 7.47. The patient is getting propofol at 50 mcg/kg/min, D5W with 3 ampoules of bicarbonate at 80 cc an hour, fentanyl drip at 1 mcg/kg/h, vital AF at 29 cc an hour, with a goal of 43 cc an hour. The patient also continues on Rocephin. White count is 10.3, hemoglobin 7, hematocrit 22.8, and platelet count 109,000. Sodium 137, potassium 3.7, chlorides 104, CO2 24, BUN 54, and creatinine 1.76. Glucose is 116. Ammonia level is 56. Calcium is 7.7. Cultures are thus far negative. Chest x-ray is unchanged. There is a small left pleural effusion. NG tube, endotracheal tube, and central venous catheter, are in appropriate positions. Progress note dated October 22, 2023. 43-year-old male seen again in the intensive care unit, room 263. He remains on the mechanical ventilator. The patient's ventilator settings include volume assist-control, rate 20, tidal volume 400, FiO2 40%, PEEP of 5. Blood gases show pO2 68, pCO2 45, pH is 7.41. The patient is on norepinephrine at 9 mcg/min, propofol at 50 mcg/kg/min, lactated Ringer's at 75 cc an hour, and fent anyl at 1 mcg/kg/h. The patient is getting tube feedings with vital AF at 43 cc an hour, which is goal. Microbiologic studies are thus far negative. The patient is on Rocephin. He has received 1 unit of packed red blood cells. Current labs include a white count 10.5, hemoglobin 6.6, hematocrit 22.2, and a platelet count of 97,000. Sodium 138, potassium 3.4, chlorides 106, CO2 26, BUN 53, creatinine 1.78. Glucose is 140. Albumin is 2.8. Total bilirubin is 1.4. Chest x-ray shows air space opacities, in the lung bases, which have worsened. Lines and tubes are in good placement. Note dated October 23, 2023. 43-year-old male seen again in room 263. He remains on mechanical ventilator. Vent settings include volume assist-control, rate 20, tidal volume 400, FiO2 40%, PEEP of 5. Blood gases show pO2 87, pCO2 44, pH is 7.40. The patient is getting lactated Ringer's at 75 cc an hour, propofol at 45 mcg/kg/min, norepinephrine at 7.7 mcg/min, and saline at 10 cc an hour. The patient is also getting vital AF, at 10 cc an hour. He continues on Zosyn. We will check a procalcitonin level. The patient will have a daily interruption of sedation, without a spontaneous breathing trial today. Current labs include a white count of 12.7, hemoglobin 7.8, hematocrit 26, platelet count 75,000. Sodium 138, potassium 4.1, chlorides 105, CO2 26, BUN 47, creatinine 1.35. Glucose is 141. Albumin is 3.1. Cultures thus far negative including blood and sputum. Chest x-ray shows the OG tube, to remain in satisfactory position. There is persistent bibasilar infiltrates and/or atelectasis. Progress note dated October 24, 2023. 43-year-old male seen again in room 263. The patient remains on the mechanical ventilator. He is on volume assist-control, rate 20, tidal volume 400, FiO2 3 0%, PEEP of 5. Blood gases show pO2 69, pCO2 39, and pH is 7.44. The patient remains on propofol at 20 mcg/kg/min, norepinephrine at 2.4 mcg/min, lactated Ringer's at 50 cc an hour, and saline at 10 cc an hour. Patient is getting vital AF at 20, with a goal at 20 cc an hour. The patient continues on Zosyn. His procalcitonin level was 3.62. He will get 1 dose of Lasix 40 mg IV push. His lactated Ringer's IV, will be made KVO. Current labs include a white count of 17.6, hemoglobin 7.4, hematocrit 24.8, and a platelet count of 98,000. Sodium 142, potassium 3.8, chlorides 107, CO2 26, BUN 51, creatinine 1.36. Calcium is 8.2. Albumin is 3.0. Ammonia level was 22. All cultures are thus far negative. Chest x-ray shows small lung volumes, with basilar infiltrates or atelectasis, and small effusions. Progress note dated October 25, 2023. 43-year-old male seen again in room 263. The patient remains on the ventilator. He is on volume assist-control, rate 20, tidal volume 400, FiO2 30%, PEEP of 5. Blood gases show pO2 of 70, pCO2 39, pH is 7.46. The patient getting lactated Ringer's at 20 cc an hour, norepinephrine at 5.6 mcg/min, and vital AF at 20 cc an hour, which is goal. The patient will have a spontaneous breathing trial today, as he has been off of propofol for some time. His cultures are negative. He continues on Zosyn. I am not hopeful that the patient will be extubated today. White count 19.1, hemoglobin 7.3, hematocrit 23.8, platelet count 105,000. Sodium 143, potassium 3.8, chlorides 109, CO2 26, BUN 62, creatinine 1.60. Glucose 131. Albumin 2.8. Calcium 8.1. Cultures are thus far negative. Chest x-ray shows small lung volumes. Endotracheal tube is in appropriate position in the trachea. There is basilar atelectasis, and small bilateral ple ural effusions. Objective - Vital Signs Vital signs: Vital Signs Temp 98.6 F 10/25/23 04:00 Pulse 89 10/25/23 08:30 Resp 49 H 10/25/23 08:30 BP 111/59 10/25/23 08:00 Pulse Ox 93 L 10/25/23 08:30 FiO2 30 10/25/23 08:14 Intake & Output 10/24/23 10/25/23 10/25/23 18:59 06:59 18:59 Intake Total 1006.174 783.467 56.533 Output Total 590 385 40 Balance 416.174 398.467 16.533 Weight 88 kg Intake: IV 389 253 23 Lactated Ringers 1,000 ml 350 220 20 @ 20 mls/hr IV .Q24H IRINA Rx#:[id number] Pressure Bag 39 33 3 Intake, IV Titration 237.174 220.467 33.533 Amount Norepinephrine 4 mg In 152.890 220.467 33.533 Sodium Chloride 0.9% 250 ml @ 0.03 MCG/KG/MIN 9. 201 mls/hr IV .Q24H IRINA Rx#:[id number] propofoL 1,000 mg In 84.284 Empty Bag 1 bag @ 15 MCG/ KG/MIN 7.245 mls/hr IV . [id number] IRINA Rx#:[id number] Tube Feeding 260 220 Other 120 90 Output: Urine 540 385 40 Stool 50 Other: Voiding Method Indwelling Catheter Indwelling Catheter ABP, PAP, CO, CI - Last Documented Arterial Blood Pressure 111/48 - Exam Sedated, with an orally placed endotracheal tube and NG tube noted. HEENT examination is grossly unremarkable. Mucous membranes are dry. Teeth are in very poor repair. Neck supple. Full range of motion. No adenopathy thyromegaly or neck vein distention. Cardiovascular examination reveals regular rhythm rate. S1-S2 normal. No S3 or S4. No discernible murmur noted. Heart rate 89 bpm. Lungs reveal scattered crackles and rhonchi. No wheezes. Breath sounds equal. Saturations are 94 %. Abdomen soft, without bowel sounds. No masses. Likely, there is ascites. Extremities are intact. No cyanosis clubbing or edema. Skin is jaundiced. Neurologic examination cannot be assessed at this time. - Labs CBC & Chem 7: 10/25/23 04:04 10/25/23 04:04 Labs: Abnormal Lab Results - Last 24 Hours (Table) 10/24/23 10/24/23 10/25/23 Range/Units 12:08 18:19 00:25 WBC (3.8-10.6) k/uL RBC (4.30-5.90) m/uL Hgb (13.0-17.5) gm/dL Hct (39.0-53.0) % MCHC (31.0-37.0) g/dL RDW (11.5-15.5) % Plt Count (150-450) k/uL Neutrophils # (1.3-7.7) k/uL ABG pH (7.35-7.45) ABG pO2 (83-108) mmHg ABG HCO3 (21-25) mmol/L ABG Total CO2 (19-24) mmol/L Chloride (98-107) mmol/L BUN (9-20) mg/dL Creatinine (0.66-1.25) mg/dL Glucose (74-99) mg/dL POC Glucose (mg/dL) 133 H 125 H 129 H (70-110) mg/dL Calcium (8.4-10.2) mg/dL Total Bilirubin (0.2-1.3) mg/dL Total Protein (6.3-8.2) g/dL Albumin (3.5-5.0) g/dL 10/25/23 10/25/23 10/25/23 Range/Units 04:04 04:04 06:43 WBC 19.1 H (3.8-10.6) k/uL RBC 2.79 L (4.30-5.90) m/uL Hgb 7.3 L (13.0-17.5) gm/dL Hct 23.8 L (39.0-53.0) % MCHC 30.6 L (31.0-37.0) g/dL RDW 19.7 H (11.5-15.5) % Plt Count 105 L (150-450) k/uL Neutrophils # 16.3 H (1.3-7.7) k/uL ABG pH 7.46 H (7.35-7.45) ABG pO2 70 L (83-108) mmHg ABG HCO3 28 H (21-25) mmol/L ABG Total CO2 29 H (19-24) mmol/L Chloride 109 H (98-107) mmol/L BUN 62 H (9-20) mg/dL Creatinine 1.60 H (0.66-1.25) mg/dL Glucose 121 H (74-99) mg/dL POC Glucose (mg/dL) (70-110) mg/dL Calcium 8.1 L (8.4-10.2) mg/dL Total Bilirubin 2.4 H (0.2-1.3) mg/dL Total Protein 5.1 L (6.3-8.2) g/dL Albumin 2.8 L (3.5-5.0) g/dL 10/25/23 Range/Units 06:58 WBC (3.8-10.6) k/uL RBC (4.30-5.90) m/uL Hgb (13.0-17.5) gm/dL Hct (39.0-53.0) % MCHC (31.0-37.0) g/dL RDW (11.5-15.5) % Plt Count (150-450) k/uL Neutrophils # (1.3-7.7) k/uL ABG pH (7.35-7.45) ABG pO2 (83-108) mmHg ABG HCO3 (21-25) mmol/L ABG Total CO2 (19-24) mmol/L Chloride (98-107) mmol/L BUN (9-20) mg/dL Creatinine (0.66-1.25) mg/dL Glucose (74-99) mg/dL POC Glucose (mg/dL) 131 H (70-110) mg/dL Calcium (8.4-10.2) mg/dL Total Bilirubin (0.2-1.3) mg/dL Total Protein (6.3-8.2) g/dL Albumin (3.5-5.0) g/dL Microbiology - Last 24 Hours (Table) 10/19/23 12:19 Blood Culture - Final Blood 10/19/23 12:15 Blood Culture Gram Stain - Final Blood Blood Culture - Final Assessment and Plan Assessment: S/P intubation and mechanical ventilation for impending respiratory failure, secondary to fulminant liver failure, October 19, 2023. Postop day #9, S/P repair of incarcerated umbilical hernia. Chronic liver disease/cirrhosis, and ascites, secondary to previous significant alcohol abuse. Anion gap metabolic acidosis, resolved. Chronic kidney disease, rule out hepatorenal syndrome. Severe hyperammonemia. Lactic acidosis. History of hyperlipidemia. History of hypertension. History of liver cirrhosis. Recurrent ascites, status post frequent paracentesis abdominis. History of depression and PTSD. History of chronic tobacco use. Anemia of chronic disease. Plan: Plan dated October 19, 2023. The patient was transferred down to the intensive care unit, where he was e valuated. The patient is electively intubated, and we also placed a left subclavian triple-lumen catheter, and a right radial art line, for better monitoring and management. Labs, x-rays, medications are reviewed. The patient is initially placed on vent settings of volume assist-control, rate 20, tidal volume 400, FiO2 100%, PEEP of 5. Additional recommendations and suggestions are forthcoming. The medication list is reviewed. Unnecessary medications were discontinued. I did speak to the surgeon about this patient. If the patient shows further deterioration, will attempt to transfer the patient to a facility that deals in patients with severe liver disease. Plan dated October 20, 2023. The patient is seen again today in room 263. He was transferred down to the intensive care unit yesterday, where, he was intubated, and had an arterial line placed, and a central line placed. The patient has hepatic encephalopathy, and more recently, has been having issues with low blood pressure. He was started on norepinephrine, which is currently running at 3 mcg/min. He continues on propofol, and also D5W with 3 ampoules of sodium bicarbonate at 80 cc an hour. Tube feedings will be started today. A head CT which was done yesterday was negative. The patient will get a EEG performed. In addition, I have asked the nurse to give the patient Ativan 2 mg, to see if the tremors stop. Plan dated October 21, 2023. The patient is again seen in the intensive care unit. He remains on mechanical ventilator. He is currently on propofol, a sodium bicarbonate drip, fentanyl, and tube feedings with vital AF. He continues on Rocephin. Blood gases show pO2 of 64, pCO2 37, pH is 7.47. Labs, x-rays, medications are all reviewed. Prognosis is guarded. Culture data is thus far negative. We will continue to follow make recommendations along the way. The patient's overall prognosis re ave extremely poor. Plan dated October 22, 2023. The patient is seen in the intensive care unit, room 263. He remains on mechanical ventilator. The patient also remains on norepinephrine at 9 mcg/min, propofol at 50 mcg/kg/min, and fentanyl at 1 mcg/kg/h. The patient is on Dilaudid, and will try to wean the patient off of fentanyl. The patient continues on Rocephin. The patient will receive 1 unit of packed red blood cells, for hemoglobin of 6.6. Blood gases show pO2 of 68, pCO2 of 45, pH is 7.41. Labs, x-rays, and medications are reviewed. The patient's overall prognosis remains guarded. We will continue to follow the patient, make recommendations along the way. Plan dated October 23, 2023. The patient was seen in the intensive care unit, room 263. The patient remains on mechanical ventilator. The patient is getting lactated Ringer's at 75 cc an hour, propofol at 45 mcg/kg/min, and norepinephrine at 7.7 mcg/min. The patient is getting vital AF at 10 cc an hour. Will check a procalcitonin level. The patient continues on Zosyn. Will do a daily interruption of sedation, without a spontaneous breathing trial. Labs, x-rays, and all medications are reviewed. The patient's overall prognosis remains very poor. We will continue to follow make recommendations along the way. Plan dated October 24, 2023. The patient is again seen today in room 263. He remains on the mechanical ventilator. He is on multiple drips including propofol at 20 mcg/kg/min, norepinephrine at 2.4 mcg/min, and lactated Ringer's at 50 cc an hour, which will be turned down to KVO. The patient continues on Zosyn. Procalcitonin level was 3.62. All cultures are negative. The patient is on tube feedings, with vital AF at 20 cc an hour, which is goal. The patient will get 1 dose of Lasix 40 mg IV push. Labs, x-rays, and medications are reviewed. The patient's overall prognosis remains very guarded. We will continue to follow the patient, make recommendations. Plan dated October 25, 2023. The patient is again seen today in room 263. He remains on the ventilator. The patient has been off of sedation for some time. He is not really waking up. The patient will have a spontaneous breathing trial, should his mental status, come around. He continues on lactated Ringer's at 20 cc an hour, norepinephrine at 5.6 mcg/min, and vital AF at 20 cc an hour, which is goal. Culture data is negative. He continues on Zosyn. Blood gases show pO2 of 70, pCO2 39, pH is 7.46. This blood gases consistent with a mild metabolic alkalosis. We will continue to follow make recommendations. Prognosis is guarded. Time with Patient: Greater than 30
--- NOTE | 2023-10-25 09:49 | XR ---
EXAM: XR chest 1V portable CLINICAL INDICATION:Male, 43 years old with history of assess lungs; [facility] COMPARISON: 10/24/2023. TECHNIQUE: Chest single view. FINDINGS: Lines/tubes/devices: ET tube appears in good position. Enteric tube extends into the left upper quadr ant terminating over the stomach. Left subclavian central venous line with tip over the RA. Cardiomediastinum: Cardiac silhouette appears upper normal size Unremarkable mediastinal silhouette. Vasculature: Mild central congestion. Lungs/pleura: Low lung volumes again noted, with bibasilar atelectasis or infiltrates, similar to the prior study. Stable small effusions not ruled out.. Bones/soft tissues: Bony thorax appears grossly intact as seen. Regional soft tissues appear unremarkable. IMPRESSION: No significant change. Low lung volumes with bibasilar atelectasis or infiltrates.
--- NOTE | 2023-10-25 10:10 | P.PN ---
Subjective Patient is seen in follow-up for acute kidney injury. Renal function worse. Received IV Lasix yesterday. Urine output stable at 30 to 40 cc an hour. Receiving tube feeds. Intubated. On Levophed. Vital signs are stable. On vasopressor support. General: Resting in bed. HEENT: Intubated. LUNGS: Scattered rhonchi. HEART: Rate and Rhythm are regular. ABDOMEN: Distention noted. EXTREMITITES: No edema. Objective - Vital Signs Vital signs: Vital Signs Temp 99.9 F H 10/25/23 09:30 Pulse 90 10/25/23 09:30 Resp 22 10/25/23 09:30 BP 111/59 10/25/23 08:00 Pulse Ox 92 L 10/25/23 09:30 FiO2 30 10/25/23 08:14 Intake & Output 10/24/23 10/25/23 10/25/23 18:59 06:59 18:59 Intake Total 1006.174 783.467 215.533 Output Total 590 385 130 Balance 416.174 398.467 85.533 Weight 88 kg Intake: IV 389 253 92 Lactated Ringers 1,000 ml 350 220 80 @ 20 mls/hr IV .Q24H IRINA Rx#:[id number] Pressure Bag 39 33 12 Intake, IV Titration 237.174 220.467 33.533 Amount Norepinephrine 4 mg In 152.890 220.467 33.533 Sodium Chloride 0.9% 250 ml @ 0.03 MCG/KG/MIN 9. 201 mls/hr IV .Q24H IRINA Rx#:[id number] propofoL 1,000 mg In 84.284 Empty Bag 1 bag @ 15 MCG/ KG/MIN 7.245 mls/hr IV . [id number] IRINA Rx#:[id number] Tube Feeding 260 220 60 Other 120 90 30 Output: Urine 540 385 130 Stool 50 Other: Voiding Method Indwelling Catheter Indwelling Catheter ABP, PAP, CO, CI - Last Documented Arterial Blood Pressure 104/46 - Labs CBC & Chem 7: 10/25/23 04:04 10/25/23 04:04 Labs: Abnormal Lab Results - Last 24 Hours (Table) 10/24/23 10/24/23 10/25/23 Range/Units 12:08 18:19 00:25 WBC (3.8-10.6) k/uL RBC (4.30-5.90) m/uL Hgb (13.0-17.5) gm/dL Hct (39.0-53.0) % MCHC (31.0-37.0) g/dL RDW (11.5-15.5) % Plt Count (150-450) k/uL Neutrophils # (1.3-7.7) k/uL ABG pH (7.35-7.45) ABG pO2 (83-108) mmHg ABG HCO3 (21-25) mmol/L ABG Total CO2 (19-24) mmol/L Chloride (98-107) mmol/L BUN (9-20) mg/dL Creatinine (0.66-1.25) mg/dL Glucose (74-99) mg/dL POC Glucose (mg/dL) 133 H 125 H 129 H (70-110) mg/dL Calcium (8.4-10.2) mg/dL Total Bilirubin (0.2-1.3) mg/dL Total Protein (6.3-8.2) g/dL Albumin (3.5-5.0) g/dL 10/25/23 10/25/23 10/25/23 Range/Units 04:04 04:04 06:43 WBC 19.1 H (3.8-10.6) k/uL RBC 2.79 L (4.30-5.90) m/uL Hgb 7.3 L (13.0-17.5) gm/dL Hct 23.8 L (39.0-53.0) % MCHC 30.6 L (31.0-37.0) g/dL RDW 19.7 H (11.5-15.5) % Plt Count 105 L (150-450) k/uL Neutrophils # 16.3 H (1.3-7.7) k/uL ABG pH 7.46 H (7.35-7.45) ABG pO2 70 L (83-108) mmHg ABG HCO3 28 H (21-25) mmol/L ABG Total CO2 29 H (19-24) mmol/L Chloride 109 H (98-107) mmol/L BUN 62 H (9-20) mg/dL Creatinine 1.60 H (0.66-1.25) mg/dL Glucose 121 H (74-99) mg/dL POC Glucose (mg/dL) (70-110) mg/dL Calcium 8.1 L (8.4-10.2) mg/dL Total Bilirubin 2.4 H (0.2-1.3) mg/dL Total Protein 5.1 L (6.3-8.2) g/dL Albumin 2.8 L (3.5-5.0) g/dL 10/25/23 Range/Units 06:58 WBC (3.8-10.6) k/uL RBC (4.30-5.90) m/uL Hgb (13.0-17.5) gm/dL Hct (39.0-53.0) % MCHC (31.0-37.0) g/dL RDW (11.5-15.5) % Plt Count (150-450) k/uL Neutrophils # (1.3-7.7) k/uL ABG pH (7.35-7.45) ABG pO2 (83-108) mmHg ABG HCO3 (21-25) mmol/L ABG Total CO2 (19-24) mmol/L Chloride (98-107) mmol/L BUN (9-20) mg/dL Creatinine (0.66-1.25) mg/dL Glucose (74-99) mg/dL POC Glucose (mg/dL) 131 H (70-110) mg/dL Calcium (8.4-10.2) mg/dL Total Bilirubin (0.2-1.3) mg/dL Total Protein (6.3-8.2) g/dL Albumin (3.5-5.0) g/dL Microbiology - Last 24 Hours (Table) 10/19/23 12:19 Blood Culture - Final Blood 10/19/23 12:15 Blood Culture Gram Stain - Final Blood Blood Culture - Final Assessment and Plan Plan: Assessment: 1. Acute kidney injury secondary to ATN secondary to hypotension. No evidence of hydronephrosis noted on CAT scan done September 04, 2023. Creatinine peaked at 3.0 this admission. 1.6 today. Worsened compared to yesterday due to IV Lasix. 2. Alcohol induced liver cirrhosis. 3. Metabolic acidosis secondary to acute kidney injury. Improved. 4. Status post open repair of incarcerated umbilical hernia and embolectomy on October 16, 2023. 5. Hepatic encephalopathy. 6. Acute hypoxic respiratory failure. Currently intubated. Plan: Maintain tube feeds. Possible paracentesis Thursday. 25 g IV albumin pre and post paracentesis. Maintain midodrine. Wean Levophed. Avoid nephrotoxins. Continue to monitor renal function and urine output. Hold off on diuretics today.
--- NOTE | 2023-10-25 10:21 | P.PN ---
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 He presented to the emergency department on 10/16/23 with a chief complaint of intractable abdominal pain and reports umbilical hernia is now nonreducible. Vital signs upon arrival showed BP 115/69, HR 76, RR 18, T 97.8 F, and SpO2 100% on RA. EKG showed normal sinus rhythm at 63 bpm with no noted T wave or ST abnormalities. CBC showing bicytopenia with Hg 7.9 and Plt 98. Coagulation profile showed PT of 14.7 and INR 1.4. BMP showing Na 133, Cl 110, bicarb of 13, and anion gap of 10, BUN of 35, creatinine 1.65, GFR 51. Blood glucose was 119. Lactic acid was 1.8. Liver profile was unremarkable. Patient was evaluated by general surgeon, he is being admitted to general surgery team with plans to be taken to the OR for open surgical repair of incarcerated umbilical hernia. We were consulted for preoperative medical clearance and postoperative medical management. On 10/15 patient underwent open repair of incarcerated umbilical hernia with umbillectomy. Renal function continued to worsen. Patient was started on albumin and octreotide. Midodrine was increased and Nephrology was consulted. Patient was started on bicarb drip. Patient became encephalopathic on 10/18. St arted on rectal lactulose and transferred to medical ICU. His mentation continued to worsen, and he was intubated. Also started on Rocephin for concerns of SBP on 10/18. There is concern for GI bleed as well. 10/20 Intubated. Generalized tremors noted on 10/19, CT brain was negative for acute pathology and EEG showed moderate to severe background slowing. Started on Fentanyl drip at 1 mcg/kg/hr which improved his tremors, likely related to pain. Levophed running at 0.05 mcg/kg/min. Sedated with propofol at 50 mcg/kg/min. 10/21 Intubated. Fentanyl drip at 1 mcg/kg/hr. Levophed running at 0.15 m cg/kg/min. Sedated with propofol at 50 mcg/kg/min. CXR shows right sided infiltrates. Antibiotics switched from Rocephin to Zosyn (D1). Plans to transfuse 1 unit PRBC. 10/22 Intubated. Fentanyl drip weaned off this morning. Levophed running at 0.11 mcg/kg/min. Sedated with propofol at 50 mcg/kg/min. Antibiotics include Zosyn 3.375g IV TID (D2). 10/24 Intubated. Levophed running at 0.04 mcg/kg/min. Sedated with propofol at 20 mcg/kg/min. Surgery recommends IR consult for paracentesis on Thursday. CXR shows persistent bibasilar infiltrates. Pro-mony is elevated at 3.62. Antibiotics include Zosyn 3.375g IV TID (D3). 10/23 Patient was seen and examined. Intubated. Levophed running at 0.1 mcg/kg/min. Propofol weaned off this morning. Currently on LR at 20 cc/hr + NS at 10 cc/hr. CBC WBC 19.1, Hg 7.3, Hct 23.8, Plt 102. ABG shows metabolic alkalosis with pH 7.46, pCO2 39, HCO3 26, O2 94.8 on FiO2 30. CMP Cl 109 BUN 62, Cr 1.6, glu 121, Ca 8.1, T. Bili 2.4, alb 2.8. CXR shows persistent bibasilar infiltrates. Antibiotics include Zosyn 3.375g IV TID (D4). General: Intubated sedated Derm: Warm, dry, jaundice Head: Atraumatic, normocephalic, symmetric Eyes: Scleral icterus, pupils equal and reactive Mouth: No lip lesion, mucus membranes moist Cardiovascular: S1S2 reg, no murmur Lungs: Coarse BS bilateral, no rhonchi, no rales, no accessory muscle use, intubated Abdominal: Distended, nontender to palpation, no guarding, no appreciable organomegaly, midline dressing clean, dry, intact, + Epps Ext: Gross muscle atrophy Neuro: Sedated Psych: Unable to assess Ventilator dependent respiratory failure: Pulm toileting. Vent managed by Pulmonary. Septic shock likely secondary to below: Antibiotics as below. BCx, Sputum Cx (10/18) and Paracentesis Cx (10/15) negative. Titrate Levophed to MAP > 65. Telemetry monitoring. HAP: Started on Zosyn 10/21 should cover for both SBP and possible aspiration PNA. Pro-mony elevated. Obtain sputum Cx. Suspected spontaneous bacterial peritonitis: Ascitic fluid culture negative. BCx negative. Sputum Cx negative. Rocephin switched to Zosyn 3.375g IV TID (D4). Acute hepatic encephalopathy: Lactulose 20g PO TID. Fecal management system in place. Acute GI bleed: 1 unit PRBC 10/21. Surgery on board recommending continued monitoring. Protonix 40 mg IV QD. Transfuse if Hg < 7. IVAN, secondary to suspected hepatorenal syndrome, history of CKD stage III: N ephrology recommends continuing LR, midodrine and Sandostatin along with albumin. Tremors: Likely pain related. CT brain negative. EEG mod-severe encaphalopathy. Improved with Fentanyl. History of advanced liver cirrhosis: Continue Albumin 12.5g IV QD, Midodrine 15 mg PO TID, Octreotide 100mcg subQ TID. Bicytopenia secondary to liver cirrhosis Elevated INR Incarcerated/strangulated umbilical hernia status post open repair: Management per general surgery Resolved: Metabolic and lactic acidosis CODE STATUS: FULL CODE DVT Prophylaxis: SCD GI Prophylaxis: Protonix IV Designated medical POA if patient is not able to make medical decisions for themselves: I have reviewed the following incident response consultant notes: Pulmonary, Surgery, Nephrology. I have reviewed the results of the following tests: CBC, CMP, ABG I have ordered the following tests: CBC and CMP in the AM. Daily CXR. Sputum Cx. I have discussed the care of this patient with the following independent historian: ANNIE I have independently interpreted the following test below: CXR I have discussed the management of this patient with the following physician: Objective - Vital Signs Vital signs: Vital Signs Temp 98.6 F 10/25/23 04:00 Pulse 89 10/25/23 07:00 Resp 14 10/25/23 07:00 BP 107/54 10/25/23 05:00 Pulse Ox 91 L 10/25/23 07:00 FiO2 30 10/25/23 04:00 Intake & Output 10/24/23 10/25/23 10/25/23 18:59 06:59 18:59 Intake Total 1006.174 783.467 56.533 Output Total 590 385 40 Balance 416.174 398.467 16.533 Weight 88 kg Intake: IV 389 253 23 Lactated Ringers 1,000 ml 350 220 20 @ 20 mls/hr IV .Q24H IRINA Rx#:[id number] Pressure Bag 39 33 3 Intake, IV Titration 237.174 220.467 33.533 Amount Norepinephrine 4 mg In 152.890 220.467 33.533 Sodium Chloride 0.9% 250 ml @ 0.03 MCG/KG/MIN 9. 201 mls/hr IV .Q24H IRINA Rx#:[id number] propofoL 1,000 mg In 84.284 Empty Bag 1 bag @ 15 MCG/ KG/MIN 7.245 mls/hr IV . [id number] IRINA Rx#:[id number] Tube Feeding 260 220 Other 120 90 Output: Urine 540 385 40 Stool 50 Other: Voiding Method Indwelling Catheter Indwelling Catheter ABP, PAP, CO, CI - Last Documented Arterial Blood Pressure 112/48 - Labs CBC & Chem 7: 10/25/23 04:04 10/25/23 04:04 Labs: Abnormal Lab Results - Last 24 Hours (Table) 10/24/23 10/24/23 10/25/23 Range/Units 12:08 18:19 00:25 WBC (3.8-10.6) k/uL RBC (4.30-5.90) m/uL Hgb (13.0-17.5) gm/dL Hct (39.0-53.0) % MCHC (31.0-37.0) g/dL RDW (11.5-15.5) % Plt Count (150-450) k/uL Neutrophils # (1.3-7.7) k/uL ABG pH (7.35-7.45) ABG pO2 (83-108) mmHg ABG HCO3 (21-25) mmol/L ABG Total CO2 (19-24) mmol/L Chloride (98-107) mmol/L BUN (9-20) mg/dL Creatinine (0.66-1.25) mg/dL Glucose (74-99) mg/dL POC Glucose (mg/dL) 133 H 125 H 129 H (70-110) mg/dL Calcium (8.4-10.2) mg/dL Total Bilirubin (0.2-1.3) mg/dL Total Protein (6.3-8.2) g/dL Albumin (3.5-5.0) g/dL 10/25/23 10/25/23 10/25/23 Range/Units 04:04 04:04 06:43 WBC 19.1 H (3.8-10.6) k/uL RBC 2.79 L (4.30-5.90) m/uL Hgb 7.3 L (13.0-17.5) gm/dL Hct 23.8 L (39.0-53.0) % MCHC 30.6 L (31.0-37.0) g/dL RDW 19.7 H (11.5-15.5) % Plt Count 105 L (150-450) k/uL Neutrophils # 16.3 H (1.3-7.7) k/uL ABG pH 7.46 H (7.35-7.45) ABG pO2 70 L (83-108) mmHg ABG HCO3 28 H (21-25) mmol/L ABG Total CO2 29 H (19-24) mmol/L Chloride 109 H (98-107) mmol/L BUN 62 H (9-20) mg/dL Creatinine 1.60 H (0.66-1.25) mg/dL Glucose 121 H (74-99) mg/dL POC Glucose (mg/dL) (70-110) mg/dL Calcium 8.1 L (8.4-10.2) mg/dL Total Bilirubin 2.4 H (0.2-1.3) mg/dL Total Protein 5.1 L (6.3-8.2) g/dL Albumin 2.8 L (3.5-5.0) g/dL 10/25/23 Range/Units 06:58 WBC (3.8-10.6) k/uL RBC (4.30-5.90) m/uL Hgb (13.0-17.5) gm/dL Hct (39.0-53.0) % MCHC (31.0-37.0) g/dL RDW (11.5-15.5) % Plt Count (150-450) k/uL Neutrophils # (1.3-7.7) k/uL ABG pH (7.35-7.45) ABG pO2 (83-108) mmHg ABG HCO3 (21-25) mmol/L ABG Total CO2 (19-24) mmol/L Chloride (98-107) mmol/L BUN (9-20) mg/dL Creatinine (0.66-1.25) mg/dL Glucose (74-99) mg/dL POC Glucose (mg/dL) 131 H (70-110) mg/dL Calcium (8.4-10.2) mg/dL Total Bilirubin (0.2-1.3) mg/dL Total Protein (6.3-8.2) g/dL Albumin (3.5-5.0) g/dL Microbiology - Last 24 Hours (Table) 10/19/23 12:19 Blood Culture - Final Blood 10/19/23 12:15 Blood Culture Gram Stain - Final Blood Blood Culture - Final
[2023-10-25] MEDS: POTASSIUM BICARBONATE/CIT AC 20 MEQ TABLET.EFF NG-TUBE SCH (10:46)
[2023-10-25 11:44] LABS: Glucose,Whole Blood 133 mg/dL (70-110)
--- NOTE | 2023-10-25 13:53 | P.PN ---
Subjective Progress Note Date: 10/25/23 Principal diagnosis: Incarcerated umbilical hernia Patient remains on the ventilator. Tolerating tube feeds at 20 cc/h. Still having some loose stools. White blood cell count has increased gradually. Hemoglobin 7.3 today. Off sedation for the last 24 hours. Objective - Vital Signs Vital signs: Vital Signs Temp 99.0 F 10/25/23 12:00 Pulse 106 H 10/25/23 12:10 Resp 20 10/25/23 12:00 BP 111/59 10/25/23 08:00 Pulse Ox 91 L 10/25/23 12:00 FiO2 30 10/25/23 12:00 Intake & Output 10/24/23 10/25/23 10/25/23 18:59 06:59 18:59 Intake Total 1006.174 783.467 344.982 Output Total 590 385 205 Balance 416.174 398.467 139.982 Weight 88 kg Intake: IV 389 253 138 Lactated Ringers 1,000 ml 350 220 120 @ 20 mls/hr IV .Q24H IRINA Rx#:[id number] Pressure Bag 39 33 18 Intake, IV Titration 237.174 220.467 76.982 Amount Norepinephrine 4 mg In 152.890 220.467 76.982 Sodium Chloride 0.9% 250 ml @ 0.03 MCG/KG/MIN 9. 201 mls/hr IV .Q24H IRINA Rx#:[id number] propofoL 1,000 mg In 84.284 Empty Bag 1 bag @ 15 MCG/ KG/MIN 7.245 mls/hr IV . [id number] IRINA Rx#:[id number] Tube Feeding 260 220 100 Other 120 90 30 Output: Urine 540 385 205 Stool 50 Other: Voiding Method Indwelling Catheter Indwelling Catheter ABP, PAP, CO, CI - Last Documented Arterial Blood Pressure 117/54 - Exam Abdomen: Soft, distended, incision clean and dry, Prevena removed, CHRIS serosanguineous - Labs CBC & Chem 7: 10/25/23 04:04 10/25/23 04:04 Labs: Abnormal Lab Results - Last 24 Hours (Table) 10/24/23 10/25/23 10/25/23 Range/Units 18:19 00:25 04:04 WBC 19.1 H (3.8-10.6) k/uL RBC 2.79 L (4.30-5.90) m/uL Hgb 7.3 L (13.0-17.5) gm/dL Hct 23.8 L (39.0-53.0) % MCHC 30.6 L (31.0-37.0) g/dL RDW 19.7 H (11.5-15.5) % Plt Count 105 L (150-450) k/uL Neutrophils # 16.3 H (1.3-7.7) k/uL ABG pH (7.35-7.45) ABG pO2 (83-108) mmHg ABG HCO3 (21-25) mmol/L ABG Total CO2 (19-24) mmol/L Chloride (98-107) mmol/L BUN (9-20) mg/dL Creatinine (0.66-1.25) mg/dL Glucose (74-99) mg/dL POC Glucose (mg/dL) 125 H 129 H (70-110) mg/dL Calcium (8.4-10.2) mg/dL Total Bilirubin (0.2-1.3) mg/dL Total Protein (6.3-8.2) g/dL Albumin (3.5-5.0) g/dL 10/25/23 10/25/23 10/25/23 Range/Units 04:04 06:43 06:58 WBC (3.8-10.6) k/uL RBC (4.30-5.90) m/uL Hgb (13.0-17.5) gm/dL Hct (39.0-53.0) % MCHC (31.0-37.0) g/dL RDW (11.5-15.5) % Plt Count (150-450) k/uL Neutrophils # (1.3-7.7) k/uL ABG pH 7.46 H (7.35-7.45) ABG pO2 70 L (83-108) mmHg ABG HCO3 28 H (21-25) mmol/L ABG Total CO2 29 H (19-24) mmol/L Chloride 109 H (98-107) mmol/L BUN 62 H (9-20) mg/dL Creatinine 1.60 H (0.66-1.25) mg/dL Glucose 121 H (74-99) mg/dL POC Glucose (mg/dL) 131 H (70-110) mg/dL Calcium 8.1 L (8.4-10.2) mg/dL Total Bilirubin 2.4 H (0.2-1.3) mg/dL Total Protein 5.1 L (6.3-8.2) g/dL Albumin 2.8 L (3.5-5.0) g/dL 10/25/23 Range/Units 11:42 WBC (3.8-10.6) k/uL RBC (4.30-5.90) m/uL Hgb (13.0-17.5) gm/dL Hct (39.0-53.0) % MCHC (31.0-37.0) g/dL RDW (11.5-15.5) % Plt Count (150-450) k/uL Neutrophils # (1.3-7.7) k/uL ABG pH (7.35-7.45) ABG pO2 (83-108) mmHg ABG HCO3 (21-25) mmol/L ABG Total CO2 (19-24) mmol/L Chloride (98-107) mmol/L BUN (9-20) mg/dL Creatinine (0.66-1.25) mg/dL Glucose (74-99) mg/dL POC Glucose (mg/dL) 133 H (70-110) mg/dL Calcium (8.4-10.2) mg/dL Total Bilirubin (0.2-1.3) mg/dL Total Protein (6.3-8.2) g/dL Albumin (3.5-5.0) g/dL Microbiology - Last 24 Hours (Table) 10/24/23 09:00 Gram Stain - Preliminary Sputum Sputum Culture - Preliminary 10/19/23 12:19 Blood Culture - Final Blood 10/19/23 12:15 Blood Culture Gram Stain - Final Blood Blood Culture - Final Assessment and Plan (1) Incarcerated umbilical hernia Narrative/Plan: Patient remains on the ventilator. Abdominal ascites is increasing. Labs noted. Continue tube feeds. May advance as tolerated to goal. Will consult radiology for paracentesis. Check INR. Current Visit: Yes Status: Acute Code(s): K42.0 - UMBILICAL HERNIA WITH OBSTRUCTION, WITHOUT GANGRENE SNOMED Code(s): 553683476
[2023-10-25 18:13] LABS: Glucose,Whole Blood 137 mg/dL (70-110)
[2023-10-26 00:05] LABS: Glucose,Whole Blood 132 mg/dL (70-110)
[2023-10-26 05:22] LABS: ABG Base Excess 3.1 mmol/L; ABG HCO3 27 mmol/L (21-25); ABG Oxygen Saturation 95.4 % (94-97); ABG PCO2 38 mmHg (35-45); ABG PH 7.47 (7.35-7.45); ABG PO2 71 mmHg (83-108); ABG TCO2 28 mmol/L (19-24); Allen Test Performed? Yes
[2023-10-26 06:11] LABS: INR 1.5 (<1.2); Prothrombin Time 15.6 sec (10.0-12.5)
[2023-10-26 06:14] LABS: Glucose,Whole Blood 148 mg/dL (70-110)
[2023-10-26 06:30] LABS: African American GFR (CKD) 59 (>60 ml/min/1.73 sqM); Anion Gap 8 mmol/L; Blood Urea Nitrogen 73 mg/dL (9-20); Calcium 7.9 mg/dL (8.4-10.2); Carbon Dioxide 25 mmol/L (22-30); Chloride 111 mmol/L (98-107); Glucose 136 mg/dL (74-99); Non-African American GFR(CKD) 51 (>60 ml/min/1.73 sqM); Potassium 3.7 mmol/L (3.5-5.1); Sodium 144 mmol/L (137-145)
[2023-10-26] MEDS: POTASSIUM BICARBONATE/CIT AC 20 MEQ TABLET.EFF NG-TUBE SCH (06:54)
[2023-10-26 07:17] LABS: Anisocytosis Slight; Basophils # (A) 0.1 k/uL (0-0.2); Basophils % (A) 0 %; Eosinophils # (A) 0.6 k/uL (0-0.7); Eosinophils % (A) 4 %; HCT 23.2 % (39.0-53.0); HGB 7.1 gm/dL (13.0-17.5); Hypochromasia Moderate; Lymphocytes # (A) 1.1 k/uL (1.0-4.8); Lymphocytes % (A) 8 %; MCH 26.3 pg (25.0-35.0); MCHC 30.7 g/dL (31.0-37.0); MCV 85.6 fL (80.0-100.0); Mean Platelet Volume 9.6; Monocytes # (A) 0.7 k/uL (0-1.0); Monocytes % (A) 5 %; Neutrophils % (A) 81 %; Platelet Count 102 k/uL (150-450); RDW 19.7 % (11.5-15.5); WBC 14.7 k/uL (3.8-10.6)
--- NOTE | 2023-10-26 07:32 | XR ---
EXAMINATION TYPE: XR chest 1V portable DATE OF EXAM: 10/26/2023 COMPARISON: 10/25/2023 HISTORY: Shortness of breath TECHNIQUE: Single frontal view of the chest is obtained. FINDINGS: Limited inspiration with bilateral consolidation small effusion. No pneumothorax. ET tube, NG tube and central line stable. Osseous structures are stable. IMPRESSION: Stable bilateral lower lobe infiltrate and small effusion.
--- NOTE | 2023-10-26 09:22 | P.PN ---
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 He presented to the emergency department on 10/16/23 with a chief complaint of intractable abdominal pain and reports umbilical hernia is now nonreducible. Vital signs upon arrival showed BP 115/69, HR 76, RR 18, T 97.8 F, and SpO2 100% on RA. EKG showed normal sinus rhythm at 63 bpm with no noted T wave or ST abnormalities. CBC showing bicytopenia with Hg 7.9 and Plt 98. Coagulation profile showed PT of 14.7 and INR 1.4. BMP showing Na 133, Cl 110, bicarb of 13, and anion gap of 10, BUN of 35, creatinine 1.65, GFR 51. Blood glucose was 119. Lactic acid was 1.8. Liver profile was unremarkable. Patient was evaluated by general surgeon, he is being admitted to general surgery team with plans to be taken to the OR for open surgical repair of incarcerated umbilical hernia. We were consulted for preoperative medical clearance and postoperative medical management. Patient underwent open repair of incarcerated umbilical hernia with umbillectomy on 10/[address] Hair. Renal function continued to worsen. Also noted to be more acidotic. Patient was started on albumin and octreotide. Midodrine was increased and Nephrology was consulted. Patient was started on bicarb drip. Renal function improving. Patient became encephalopathic on 10/18, started on rectal lactulose and transferred to medical ICU. His mentation continued to worsen, and he was intubated on 10/18. Started on Rocephin for concerns of SBP on 10/18. He has required Levophed since being intubated which is being slowly titrated down. CXR showing signs of right sided PNA, pro-mony elevated at 3.62, Rocephin switched to Zosyn on 10/21. Generalized tremors noted on 10/19, CT brain was negative for acute pathology and EEG showed moderate to severe background slowing. Started on Fentanyl drip (10/21-10/22) which improved his tremors, likely related to pain. There was concern for GI bleed as well. Hg downtrending to 6.6 on 10/21 requiring 1 unit PRBC. 10/25 Patient was seen and examined. Intubated. Levophed running at 0.02 mcg/kg/min. Propofol weaned off yesterday. There are hopeful plans for extuba tion soon. IR consulted for paracentesis due to recurrent ascites. Currently on LR at 20 cc/hr + NS at 10 cc/hr. Antibiotics include Zosyn 3.375g IV TID (D5). CBC WBC 14.7, Hg 7.1, Hct 23.2, Plt 102. PT 15.6, INR 1.5. ABG shows metabolic alkalosis with pH 7.47, pCO2 38, HCO3 25, O2 sat 95.4 on FiO2 30. BMP Cl 111 BUN 73, Cr 1.64, glu 136, Ca 7.9. Ammonia 61. CXR shows persistent bibasilar infilt rates. Sputum Cx collected 10/23 shows few PMN, rare gram negative bacilli. General: Intubated sedated Derm: Warm, dry, jaundice Head: Atraumatic, normocephalic, symmetric Eyes: Scleral icterus, pupils equal and reactive Mouth: No lip lesion, mucus membranes moist Cardiovascular: S1S2 reg, no murmur Lungs: Coarse BS bilateral, no rhonchi, no rales, no accessory muscle use, intubated Abdominal: Distended, nontender to palpation, no guarding, no appreciable organomegaly, midline dressing clean, dry, intact, + Epps Ext: Gross muscle atrophy Neuro: Sedated Psych: Unable to assess Ventilator dependent respiratory failure: Pulm toileting. Vent managed by Pulmonary. Septic shock likely secondary to below: Antibiotics as below. BCx, Sputum Cx (10/18) and Paracentesis Cx (10/15) negative. Titrate Levophed to MAP > 65. Telemetry monitoring. Ventilator Associated Pneumonia: Started on Zosyn 10/21 should cover for both SBP and pseudomonas. Pro-mony elevated. Sputum Cx collected 10/23 shows few PMN, rare gram negative bacilli. Suspected spontaneous bacterial peritonitis: Ascitic fluid culture negative. BCx negative. Sputum Cx negative. Rocephin switched to Zosyn 3.375g IV TID (D5). Acute hepatic encephalopathy: Lactulose 20g PO TID. Fecal management system in place. Acute GI bleed: 1 unit PRBC 10/21. Surgery on board recommending continued monitoring. Protonix 40 mg IV QD. Transfuse if Hg < 7. IVAN, secondary to suspected hepatorenal syndrome, history of CKD stage III: Nephrology recommends continuing LR, midodrine and Sandostatin along with albumin. Tremors: Likely pain related. CT brain negative. EEG mod-severe encaphalopathy. Improved with Fentanyl. History of advanced liver cirrhosis: Continue Albumin 12.5g IV QD, Midodrine 15 mg PO TID, Octreotide 100mcg subQ TID. Bicytopenia secondary to liver cirrhosis Elevated INR Incarcerated/strangulated umbilical hernia status post open repair: Management per general surgery Resolved: Metabolic and lactic acidosis CODE STATUS: FULL CODE DVT Prophylaxis: SCD GI Prophylaxis: Protonix IV Designated medical POA if patient is not able to make medical decisions for themselves: I have reviewed the following dairy nutrition consultant notes: Pulmonary, Surgery, Nephrology. I have reviewed the results of the following tests: CBC, BMP, Coag panel, ABG, Sputum Cx. I have ordered the following tests: CBC and BMP in the AM. Daily CXR. Sputum Cx final. I have discussed the care of this patient with the following independent historian: RN I have independently interpreted the following test below: CXR I have discussed the management of this patient with the following physician: Objective - Vital Signs Vital signs: Vital Signs Temp 99.3 F 10/26/23 08:00 Pulse 95 10/26/23 08:31 Resp 21 10/26/23 08:00 BP 123/58 10/26/23 08:00 Pulse Ox 94 L 10/26/23 08:00 FiO2 30 10/26/23 08:17 Intake & Output 10/25/23 10/26/23 10/26/23 18:59 06:59 18:59 Intake Total 731.025 788.445 249.137 Output Total 475 485 85 Balance 256.025 303.445 164.137 Weight 88.3 kg Intake: IV 276 376 126 Lactated Ringers 1,000 ml 240 240 20 @ 20 mls/hr IV .Q24H [facility] Rx#:[id number] Piperacillin-Tazobactam 3 100 100 .375 gm In Sodium Chloride 0.9% 100 ml @ 25 mls/hr IVPB Q8H IRINA Rx#: [id number] Pressure Bag 36 36 6 Intake, IV Titration 175.025 52.445 13.137 Amount Norepinephrine 4 mg In 175.025 52.445 13.137 Sodium Chloride 0.9% 250 ml @ 0.03 MCG/KG/MIN 9. 201 mls/hr IV .Q24H IRINA Rx#:[id number] Tube Feeding 220 240 40 Other 60 120 70 Output: Urine 475 485 85 Other: Voiding Method Indwelling Catheter Indwelling Catheter ABP, PAP, CO, CI - Last Documented Arterial Blood Pressure 112/50 - Labs CBC & Chem 7: 10/26/23 05:45 10/26/23 05:45 Labs: Abnormal Lab Results - Last 24 Hours (Table) 10/25/23 10/25/23 10/26/23 Range/Units 11:42 18:11 00:04 WBC (3.8-10.6) k/uL RBC (4.30-5.90) m/uL Hgb (13.0-17.5) gm/dL Hct (39.0-53.0) % MCHC (31.0-37.0) g/dL RDW (11.5-15.5) % Plt Count (150-450) k/uL Neutrophils # (1.3-7.7) k/uL PT (10.0-12.5) sec INR (<1.2) ABG pH (7.35-7.45) ABG pO2 (83-108) mmHg ABG HCO3 (21-25) mmol/L ABG Total CO2 (19-24) mmol/L Chloride (98-107) mmol/L BUN (9-20) mg/dL Creatinine (0.66-1.25) mg/dL Glucose (74-99) mg/dL POC Glucose (mg/dL) 133 H 137 H 132 H (70-110) mg/dL Calcium (8.4-10.2) mg/dL Ammonia (<30) umol/L 10/26/23 10/26/23 10/26/23 Range/Units 05:27 05:45 05:45 WBC 14.7 H (3.8-10.6) k/uL RBC 2.70 L (4.30-5.90) m/uL Hgb 7.1 L (13.0-17.5) gm/dL Hct 23.2 L (39.0-53.0) % MCHC 30.7 L (31.0-37.0) g/dL RDW 19.7 H (11.5-15.5) % Plt Count 102 L (150-450) k/uL Neutrophils # 12.0 H (1.3-7.7) k/uL PT 15.6 H (10.0-12.5) sec INR 1.5 H (<1.2) ABG pH 7.47 H (7.35-7.45) ABG pO2 71 L (83-108) mmHg ABG HCO3 27 H (21-25) mmol/L ABG Total CO2 28 H (19-24) mmol/L Chloride (98-107) mmol/L BUN (9-20) mg/dL Creatinine (0.66-1.25) mg/dL Glucose (74-99) mg/dL POC Glucose (mg/dL) (70-110) mg/dL Calcium (8.4-10.2) mg/dL Ammonia (<30) umol/L 10/26/23 10/26/23 10/26/23 Range/Units 05:45 05:45 06:13 WBC (3.8-10.6) k/uL RBC (4.30-5.90) m/uL Hgb (13.0-17.5) gm/dL Hct (39.0-53.0) % MCHC (31.0-37.0) g/dL RDW (11.5-15.5) % Plt Count (150-450) k/uL Neutrophils # (1.3-7.7) k/uL PT (10.0-12.5) sec INR (<1.2) ABG pH (7.35-7.45) ABG pO2 (83-108) mmHg ABG HCO3 (21-25) mmol/L ABG Total CO2 (19-24) mmol/L Chloride 111 H (98-107) mmol/L BUN 73 H (9-20) mg/dL Creatinine 1.64 H (0.66-1.25) mg/dL Glucose 136 H (74-99) mg/dL POC Glucose (mg/dL) 148 H (70-110) mg/dL Calcium 7.9 L (8.4-10.2) mg/dL Ammonia 61 H (<30) umol/L Microbiology - Last 24 Hours (Table) 10/24/23 09:00 Gram Stain - Preliminary Sputum Sputum Culture - Preliminary
--- NOTE | 2023-10-26 09:39 | US ---
EXAMINATION TYPE: US abdomen limited DATE OF EXAM: 10/26/2023 COMPARISON: None CLINICAL INDICATION: Male, 43 years old with history of assess for ascites; Portable patient to the I [facility]. All four quadrants scanned with ascites seen. IMPRESSION: [id number] amount of ascites.
--- NOTE | 2023-10-26 10:24 | P.PN ---
Subjective Patient is seen in follow-up for acute kidney injury. Renal function stable. Urine output about 40 cc an hour. Receiving tube feeds. Intubated. On Levophed. Vital signs are stable. On vasopressor support. General: Resting in bed. HEENT: Intubated. LUNGS: Scattered rhonchi. HEART: Rate and Rhythm are regular. ABDOMEN: Distention noted. EXTREMITITES: No edema. Objective - Vital Signs Vital signs: Vital Signs Temp 99.3 F 10/26/23 08:00 Pulse 95 10/26/23 08:31 Resp 21 10/26/23 08:00 BP 123/58 10/26/23 08:00 Pulse Ox 94 L 10/26/23 08:00 FiO2 30 10/26/23 08:17 Intake & Output 10/25/23 10/26/23 10/26/23 18:59 06:59 18:59 Intake Total 731.025 788.445 249.137 Output Total 475 485 85 Balance 256.025 303.445 164.137 Weight 88.3 kg Intake: IV 276 376 126 Lactated Ringers 1,000 ml 240 240 20 @ 20 mls/hr IV .Q24H [facility] Rx#:[id number] Piperacillin-Tazobactam 3 100 100 .375 gm In Sodium Chloride 0.9% 100 ml @ 25 mls/hr IVPB Q8H [facility] Rx#: [id number] Pressure Bag 36 36 6 Intake, IV Titration 175.025 52.445 13.137 Amount Norepinephrine 4 mg In 175.025 52.445 13.137 Sodium Chloride 0.9% 250 ml @ 0.03 MCG/KG/MIN 9. 201 mls/hr IV .Q24H [facility] Rx#:[id number] Tube Feeding 220 240 40 Other 60 120 70 Output: Urine 475 485 85 Other: Voiding Method Indwelling Catheter Indwelling Catheter ABP, PAP, CO, CI - Last Documented Arterial Blood Pressure 112/50 - Labs CBC & Chem 7: 10/26/23 05:45 10/26/23 05:45 Labs: Abnormal Lab Results - Last 24 Hours (Table) 10/25/23 10/25/23 10/26/23 Range/Units 11:42 18:11 00:04 WBC (3.8-10.6) k/uL RBC (4.30-5.90) m/uL Hgb (13.0-17.5) gm/dL Hct (39.0-53.0) % MCHC (31.0-37.0) g/dL RDW (11.5-15.5) % Plt Count (150-450) k/uL Neutrophils # (1.3-7.7) k/uL PT (10.0-12.5) sec INR (<1.2) ABG pH (7.35-7.45) ABG pO2 (83-108) mmHg ABG HCO3 (21-25) mmol/L ABG Total CO2 (19-24) mmol/L Chloride (98-107) mmol/L BUN (9-20) mg/dL Creatinine (0.66-1.25) mg/dL Glucose (74-99) mg/dL POC Glucose (mg/dL) 133 H 137 H 132 H (70-110) mg/dL Calcium (8.4-10.2) mg/dL Ammonia (<30) umol/L 10/26/23 10/26/23 10/26/23 Range/Units 05:27 05:45 05:45 WBC 14.7 H (3.8-10.6) k/uL RBC 2.70 L (4.30-5.90) m/uL Hgb 7.1 L (13.0-17.5) gm/dL Hct 23.2 L (39.0-53.0) % MCHC 30.7 L (31.0-37.0) g/dL RDW 19.7 H (11.5-15.5) % Plt Count 102 L (150-450) k/uL Neutrophils # 12.0 H (1.3-7.7) k/uL PT 15.6 H (10.0-12.5) sec INR 1.5 H (<1.2) ABG pH 7.47 H (7.35-7.45) ABG pO2 71 L (83-108) mmHg ABG HCO3 27 H (21-25) mmol/L ABG Total CO2 28 H (19-24) mmol/L Chloride (98-107) mmol/L BUN (9-20) mg/dL Creatinine (0.66-1.25) mg/dL Glucose (74-99) mg/dL POC Glucose (mg/dL) (70-110) mg/dL Calcium (8.4-10.2) mg/dL Ammonia (<30) umol/L 10/26/23 10/26/23 10/26/23 Range/Units 05:45 05:45 06:13 WBC (3.8-10.6) k/uL RBC (4.30-5.90) m/uL Hgb (13.0-17.5) gm/dL Hct (39.0-53.0) % MCHC (31.0-37.0) g/dL RDW (11.5-15.5) % Plt Count (150-450) k/uL Neutrophils # (1.3-7.7) k/uL PT (10.0-12.5) sec INR (<1.2) ABG pH (7.35-7.45) ABG pO2 (83-108) mmHg ABG HCO3 (21-25) mmol/L ABG Total CO2 (19-24) mmol/L Chloride 111 H (98-107) mmol/L BUN 73 H (9-20) mg/dL Creatinine 1.64 H (0.66-1.25) mg/dL Glucose 136 H (74-99) mg/dL POC Glucose (mg/dL) 148 H (70-110) mg/dL Calcium 7.9 L (8.4-10.2) mg/dL Ammonia 61 H (<30) umol/L Microbiology - Last 24 Hours (Table) 10/24/23 09:00 Gram Stain - Preliminary Sputum Sputum Culture - Preliminary Assessment and Plan Plan: Assessment: 1. Acute kidney injury secondary to ATN secondary to hypotension. No evidence of hydronephrosis noted on CAT scan done September 04, 2023. Creatinine peaked at 3.0 this admission - stable at 1.64 today. 2. Alcohol induced liver cirrhosis. 3. Metabolic acidosis secondary to acute kidney injury. Improved. 4. Status post open repair of incarcerated umbilical hernia and embolectomy on October 16, 2023. 5. Hepatic encephalopathy. 6. Acute hypoxic respiratory failure. Currently intubated. Plan: Maintain tube feeds. Possible paracentesis this admission. 25 g IV albumin pre and post paracentesis. Maintain midodrine. Avoid nephrotoxins. Continue to monitor renal function and urine output. Add Aldactone 25 mg twice daily.
[2023-10-26] MEDS: ALBUMIN HUMAN 25% 50 ML in EMPTY BAG 1 BAG IVPB ONE ×2 (10:57→13:07)
[2023-10-26 12:02] LABS: Glucose,Whole Blood 148 mg/dL (70-110)
--- NOTE | 2023-10-26 12:11 | P.PN ---
Subjective Progress Note Date: 10/26/23 CHIEF COMPLAINT: Incarcerated umbilical hernia HISTORY OF PRESENT ILLNESS: Postop day #10 status post open repair of incarcerated umbilical hernia, umbillectomy. Patient remains in the ICU intubated and on mechanical ventilation. He is on Levophed. Patient is status post paracentesis with Dr. Florez. Receiving tube feeds. having loose stools. Afebrile. WBC 19-14.7 hgb 7.1 plt 102 Ammonia 61 PHYSICAL EXAM: VITAL SIGNS: Reviewed. GENERAL: intubated ABDOMEN: Soft. Mildly distended. Incisional dressing clean dry and intact. CHRIS drain serosanguineous ASSESSMENT: 1. Incarcerated umbilical hernia status post repair 2. Respiratory failure requiring mechanical ventilation 3. Elevated ammonia level 4. Chronic liver disease and liver cirrhosis with prior alcohol abuse 5. Hepatic encephalopathy PLAN: -Continue ICU management -Continue supportive care -Continue PPI -Continue tube feeds Physician Delivery Supervisor note has been reviewed by physician. Signing provider agrees with the documented findings, assessment, and plan of care. Objective - Vital Signs Vital signs: Vital Signs Temp 99.3 F 10/26/23 08:00 Pulse 97 10/26/23 11:00 Resp 19 10/26/23 11:00 BP 123/58 10/26/23 08:00 Pulse Ox 93 L 10/26/23 11:00 FiO2 30 10/26/23 11:56 Intake & Output 10/25/23 10/26/23 10/26/23 18:59 06:59 18:59 Intake Total 731.025 788.445 438.137 Output Total 475 485 235 Balance 256.025 303.445 203.137 Weight 88.3 kg 88.3 kg Intake: IV 276 376 245 Albumin Human 25% 50 ml 50 In Empty Bag 1 bag @ 50 mls/hr IVPB ONCE ONE Rx#: [id number] Lactated Ringers 1,000 ml 240 240 80 @ 20 mls/hr IV .Q24H [facility] Rx#:[id number] Piperacillin-Tazobactam 3 100 100 .375 gm In Sodium Chloride 0.9% 100 ml @ 25 mls/hr IVPB Q8H [facility] Rx#: [id number] Pressure Bag 36 36 15 Intake, IV Titration 175.025 52.445 13.137 Amount Norepinephrine 4 mg In 175.025 52.445 13.137 Sodium Chloride 0.9% 250 ml @ 0.03 MCG/KG/MIN 9. 201 mls/hr IV .Q24H [facility] Rx#:[id number] Tube Feeding 220 240 110 Other 60 120 70 Output: Urine 475 485 235 Other: Voiding Method Indwelling Catheter Indwelling Catheter ABP, PAP, CO, CI - Last Documented Arterial Blood Pressure 111/46 - Labs CBC & Chem 7: 10/26/23 05:45 10/26/23 05:45 Labs: Abnormal Lab Results - Last 24 Hours (Table) 10/25/23 10/26/23 10/26/23 Range/Units 18:11 00:04 05:27 WBC (3.8-10.6) k/uL RBC (4.30-5.90) m/uL Hgb (13.0-17.5) gm/dL Hct (39.0-53.0) % MCHC (31.0-37.0) g/dL RDW (11.5-15.5) % Plt Count (150-450) k/uL Neutrophils # (1.3-7.7) k/uL PT (10.0-12.5) sec INR (<1.2) ABG pH 7.47 H (7.35-7.45) ABG pO2 71 L (83-108) mmHg ABG HCO3 27 H (21-25) mmol/L ABG Total CO2 28 H (19-24) mmol/L Chloride (98-107) mmol/L BUN (9-20) mg/dL Creatinine (0.66-1.25) mg/dL Glucose (74-99) mg/dL POC Glucose (mg/dL) 137 H 132 H (70-110) mg/dL Calcium (8.4-10.2) mg/dL Ammonia (<30) umol/L 10/26/23 10/26/23 10/26/23 Range/Units 05:45 05:45 05:45 WBC 14.7 H (3.8-10.6) k/uL RBC 2.70 L (4.30-5.90) m/uL Hgb 7.1 L (13.0-17.5) gm/dL Hct 23.2 L (39.0-53.0) % MCHC 30.7 L (31.0-37.0) g/dL RDW 19.7 H (11.5-15.5) % Plt Count 102 L (150-450) k/uL Neutrophils # 12.0 H (1.3-7.7) k/uL PT 15.6 H (10.0-12.5) sec INR 1.5 H (<1.2) ABG pH (7.35-7.45) ABG pO2 (83-108) mmHg ABG HCO3 (21-25) mmol/L ABG Total CO2 (19-24) mmol/L Chloride 111 H (98-107) mmol/L BUN 73 H (9-20) mg/dL Creatinine 1.64 H (0.66-1.25) mg/dL Glucose 136 H (74-99) mg/dL POC Glucose (mg/dL) (70-110) mg/dL Calcium 7.9 L (8.4-10.2) mg/dL Ammonia (<30) umol/L 10/26/23 10/26/23 10/26/23 Range/Units 05:45 06:13 11:59 WBC (3.8-10.6) k/uL RBC (4.30-5.90) m/uL Hgb (13.0-17.5) gm/dL Hct (39.0-53.0) % MCHC (31.0-37.0) g/dL RDW (11.5-15.5) % Plt Count (150-450) k/uL Neutrophils # (1.3-7.7) k/uL PT (10.0-12.5) sec INR (<1.2) ABG pH (7.35-7.45) ABG pO2 (83-108) mmHg ABG HCO3 (21-25) mmol/L ABG Total CO2 (19-24) mmol/L Chloride (98-107) mmol/L BUN (9-20) mg/dL Creatinine (0.66-1.25) mg/dL Glucose (74-99) mg/dL POC Glucose (mg/dL) 148 H 148 H (70-110) mg/dL Calcium (8.4-10.2) mg/dL Ammonia 61 H (<30) umol/L Microbiology - Last 24 Hours (Table) 10/24/23 09:00 Gram Stain - Preliminary Sputum Sputum Culture - Preliminary Burkholderia cepacia complex
--- NOTE | 2023-10-26 12:39 | P.PN ---
Subjective Progress Note Date: 10/26/23 Pulmonary consult dated October 19, 2023. 44-year-old male who presented to the emergency department, on October 15, complaining of abdominal pain. The patient has a history of chronic liver disease from alcohol abuse, with cirrhosis and ascites, and need for periodic paracentesis abdominis. The patient has a known history of a umbilical hernia, which she is able to typically reduce, but because he was not able to reduce it, he came in to be evaluated. The patient ended up having surgery, last Thursday, on the , and initially was doing okay. This morning I was called by the surgeon, and my charge nurse in the intensive care unit, to say that the patient was doing poorly, and should be transferred down to the intensive care unit for further monitoring and management. The patient was very lethargic, and looked very unstable, with impending respiratory failure. When I first saw the patient he was on room air, and receiving an IV with 3 ampoules of sodium bicarb in D5W at 80 cc an hour. I asked for stat blood gas, when the patient came to the intensive care unit. His pO2 was 40, pCO2 27, pH is 7.41. After evaluating the patient, I decided to intubate the patient which we did, and place a central line and arterial line, both of which we did. Current laboratory data includes a blood gas showing a pO2 of 393, pCO2 41, pH is 7.26. Saturations are 100%. White count is 18.9, hemoglobin 8.3, hematocrit 26.3, and a platelet count of 156,000. Sodium 137, potassium 4.5, chlorides 106, CO2 14, anion gap 17, BUN 69.6, and creatinine 3. Glucose was 126. Lactic acid was 2.8. Bilirubin was 1.5. Ammonia level was up to 259. Cultures of the ascitic fluid are thus far negative. Chest x-ray shows endotracheal tube to be in good position. Central line is in good position, without complication. Progress note dated October 20, 2023. The patient is seen today in room 263. The patient was intubated, and lined yesterday, for respiratory failure. The patient has a history of chronic liver disease, with cirrhosis, ascites, and encephalopathy. Currently, the patient is on volume assist-control, rate 20, tidal volume 400, FiO2 40%, PEEP of 5. Blood gases show pO2 108, pCO2 28, pH is 7.46. This blood gases consistent with a mild respiratory alkalosis. The patient is getting D5W with 3 ampoules of sodium bicarbonate at 80 cc an hour. The patient is getting norepinephrine at 3 mcg/min, propofol at 50 mcg/kg/min. The patient has been having tremor-like activity, and could be seizing. The brain CT was negative. The patient will have tube feedings beginning today. We have ordered an EEG. In addition, I have asked the nurse to give the patient 2 mg of Ativan, to see if the tremors cease. White count is 13, hemoglobin 7, hematocrit 23, platelet count 106,000. Sodium 138, potassium 3.5, chlorides 111, CO2 17, anion gap 10, BUN 63, creatinine 2.27. Glucose is 160. Ammonia level is down to 49. Albumin is 3.1. Thus far, cultures are negative. The patient's chest x-ray shows the endotracheal tube to be high in the trachea, and have asked respiratory therapy to push it down to 1.5 cm. Progress note dated October 21, 2023. The patient is seen today in room 263. He remains on mechanical ventilator. He is on volume assist-control, rate 20, tidal volume 400, FiO2 40%, PEEP of 5. Blood gases show pO2 of 64, pCO2 37, pH is 7.47. The patient is getting propo fol at 50 mcg/kg/min, D5W with 3 ampoules of bicarbonate at 80 cc an hour, fentanyl drip at 1 mcg/kg/h, vital AF at 29 cc an hour, with a goal of 43 cc an hour. The patient also continues on Rocephin. White count is 10.3, hemoglobin 7, hematocrit 22.8, and platelet count 109,000. Sodium 137, potassium 3.7, chlorides 104, CO2 24, BUN 54, and creatinine 1.76. Glucose is 116. Ammonia level is 56. Calcium is 7.7. Cultures are thus far negative. Chest x-ray is unchanged. There is a small left pleural effusion. NG tube, endotracheal tube, and central venous catheter, are in appropriate positions. Progress note dated October 22, 2023. 43-year-old male seen again in the intensive care unit, room 263. He remains on the mechanical ventilator. The patient's ventilator settings include volume assist-control, rate 20, tidal volume 400, FiO2 40%, PEEP of 5. Blood gases show pO2 68, pCO2 45, pH is 7.41. The patient is on norepinephrine at 9 mcg/min, propofol at 50 mcg/kg/min, lactated Ringer's at 75 cc an hour, and fentanyl at 1 mcg/kg/h. The patient is getting tube feedings with vital AF at 43 cc an hour, which is goal. Microbiologic studies are thus far negative. The patient is on Rocephin. He has received 1 unit of packed red blood cells. Current labs include a white count 10.5, hemoglobin 6.6, hematocrit 22.2, and a platelet count of 97,000. Sodium 138, potassium 3.4, chlorides 106, CO2 26, BUN 53, creatinine 1.78. Glucose is 140. Albumin is 2.8. Total bilirubin is 1.4. Chest x-ray shows air space opacities, in the lung bases, which have worsened. Lines and tubes are in good placement. Note dated October 23, 2023. 43-year-old male seen again in room 263. He remains on mechanical ventilator. Vent settings include volume assist-control, rate 20, tidal volume 400, FiO2 40%, PEEP of 5. Blood gases show pO2 87, pCO2 44, pH is 7.40. The patient is getting lactated Ringer's at 75 cc an hour, propofol at 45 mcg/kg/min, norepinephrine at 7.7 mcg/min, and saline at 10 cc an hour. The patient is also getting vital AF, at 10 cc an hour. He continues on Zosyn. We will check a procalcitonin level. The patient will have a daily interruption of sedation, without a spontaneous breathing trial today. Current labs include a white count of 12.7, hemoglobin 7.8, hematocrit 26, platelet count 75,000. Sodium 138, potassium 4.1, chlorides 105, CO2 26, BUN 47, creatinine 1.35. Glucose is 141. Albumin is 3.1. Cultures thus far negative including blood and sputum. Chest x-ray shows the OG tube, to remain in satisfactory position. There is persistent bibasilar infiltrates and/or atelectasis. Progress note dated October 24, 2023. 43-year-old male seen again in room 263. The patient remains on the mechanical ventilator. He is on volume assist-control, rate 20, tidal volume 400, FiO2 30%, PEEP of 5. Blood gases show pO2 69, pCO2 39, and pH is 7.44. The patient remains on propofol at 20 mcg/kg/min, norepinephrine at 2.4 mcg/min, lactated Ringer's at 50 cc an hour, and saline at 10 cc an hour. Patient is getting vital AF at 20, with a goal at 20 cc an hour. The patient continues on Zosyn. His procalcitonin level was 3.62. He will get 1 dose of Lasix 40 mg IV push. His lactated Ringer's IV, will be made KVO. Current labs include a white count of 17.6, hemoglobin 7.4, hematocrit 24.8, and a platelet count of 98,000. Sodium 142, potassium 3.8, chlorides 107, CO2 26, BUN 51, creatinine 1.36. Calcium is 8.2. Albumin is 3.0. Ammonia level was 22. All cultures are thus far negative. Chest x-ray shows small lung volumes, with basilar infiltrates or atelectasis, and small effusions. Progress note dated October 25, 2023. 43-year-old male seen again in room 263. The patient remains on the ventilator. He is on volume assist-control, rate 20, tidal volume 400, FiO2 30%, PEEP of 5. Blood gases show pO2 of 70, pCO2 39, pH is 7.46. The patient getting lactated Ringer's at 20 cc an hour, norepinephrine at 5.6 mcg/min, and vital AF at 20 cc an hour, which is goal. The patient will have a spontaneous breathing trial today, as he has been off of propofol for some time. His cultures are negative. He continues on Zosyn. I am not hopeful that the patient will be extubated today. White count 19.1, hemoglobin 7.3, hematocrit 23.8, platelet count 105,000. Sodium 143, potassium 3.8, chlorides 109, CO2 26, BUN 62, creatinine 1.60. Glucose 131. Albumin 2.8. Calcium 8.1. Cultures are thus far negative. Chest x-ray shows small lung volumes. Endotracheal tube is in appropriate position in the trachea. There is basilar atelectasis, and small bilateral pleural effusions. On today's evaluation of 10/26/2023, the patient remains intubated on mechanical ventilator. As mentioned, the patient is post repair of incarcerated abdominal/umbilical hernia. The patient is known to have liver cirrhosis secondary to alcoholism. The patient has large ascites in addition. The patient has been off Precedex since 10/24/2023. On today's evaluation, he is extremely lethargic. He is following some simple commands. Unable to cough. Unable to raise his arms against gravity. His serum ammonia level has been measured at 61 and the patient continues to be on lactulose. His last bowel movement was 48 hours ago. In terms of his breathing, the patient is on a assist-control mode of mechanical ventilation at rate of 20, tidal volume of 400, FiO2 30% with a PEEP of 5 with a blood gas showing a pH of 7.47 with a pCO2 of 38 and pO2 of 71. The patient remains on low-dose norepinephrine running at 0.02 mcg/kg/min. Lactated Ringer's running at a rate of. Urine output is adequate at 60 cc. Earlier this morning, the patient was taken off the assist- control mode of mechanical ventilation and placed on a pressure support of 7 and a PEEP of 5 and he was able to generate adequate minute ventilation and tidal volume. He has a CHRIS drain and output is minimal and this was serous in nature. The white cell count is 14.7 with a heme of 7.1 and a platelet count of 102. INR is 1.5, sodium is at 144, BUN is 73 with a creatinine of 1.6 and a sodium levels at 144 and a potassium level is at 3.7. The patient is on IV Zosyn as an empiric antibiotic coverage. Based on all this, and based on the large ascitic fluid, I did a bedside paracentesis and the patient had a total of 5 L of ascitic fluid was aspirated and this will be sent for cultures and analysis. His sputum samples from 10/24/2023 is showing Burkholderia chest x-ray reveals smaller lung volumes along with some small bilateral pleural effusions. The patient is on DuoNeb nebulized treatments [id number]. The patient on midodrine 15 mg p.o. 3 times daily. Low-dose norepinephrine. Yessicaacia Objective - Vital Signs Vital signs: Vital Signs Temp 99.3 F 10/26/23 08:00 Pulse 95 10/26/23 08:31 Resp 21 10/26/23 08:00 BP 123/58 10/26/23 08:00 Pulse Ox 94 L 10/26/23 08:00 FiO2 30 10/26/23 08:17 Intake & Output 10/25/23 10/26/23 10/26/23 18:59 06:59 18:59 Intake Total 731.025 788.445 249.137 Output Total 475 485 85 Balance 256.025 303.445 164.137 Weight 88.3 kg Intake: IV 276 376 126 Lactated Ringers 1,000 ml 240 240 20 @ 20 mls/hr IV .Q24H [facility] Rx#:[id number] Piperacillin-Tazobactam 3 100 100 .375 gm In Sodium Chloride 0.9% 100 ml @ 25 mls/hr IVPB Q8H [facility] Rx#: [id number] Pressure Bag 36 36 6 Intake, IV Titration 175.025 52.445 13.137 Amount Norepinephrine 4 mg In 175.025 52.445 13.137 Sodium Chloride 0.9% 250 ml @ 0.03 MCG/KG/MIN 9. 201 mls/hr IV .Q24H [facility] Rx#:[id number] Tube Feeding 220 240 40 Other 60 120 70 Output: Urine 475 485 85 Other: Voiding Method Indwelling Catheter Indwelling Catheter ABP, PAP, CO, CI - Last Documented Arterial Blood Pressure 112/50 - Exam Comment comfortable, quite debilitated and body mass index of 26.4. Orally placed endotracheal tube and NG tube noted. Lethargic, encephalopathic and arousable. Following simple commands. The patient has been off sedative medications. HEENT examination is grossly unremarkable. Mucous membranes are dry. Teeth are in very poor condition Neck supple. Full range of motion. No adenopathy thyromegaly or neck vein distention. Cardiovascular examination reveals regular rhythm rate. S1-S2 normal. No S3 or S4. No discernible murmur noted. Lungs reveal scattered crackles and rhonchi. No wheezes. Breath sounds equal. Abdomen soft, without bowel sounds. No masses. Likely, there is ascites. The surgical abdominal wound scar is dry clean and intact. No active drainage. There is a fluid wave and shifting dullness consistent with ascites. Extremities are intact. No cyanosis clubbing or edema. Skin is jaundiced. Neurologic examination arousable he is very much lethargic and encephalopathic. Follows simple commands. - Labs CBC & Chem 7: 10/26/23 05:45 10/26/23 05:45 Labs: Abnormal Lab Results - Last 24 Hours (Table) 10/25/23 10/25/23 10/26/23 Range/Units 11:42 18:11 00:04 WBC (3.8-10.6) k/uL RBC (4.30-5.90) m/uL Hgb (13.0-17.5) gm/dL Hct (39.0-53.0) % MCHC (31.0-37.0) g/dL RDW (11.5-15.5) % Plt Count (150-450) k/uL Neutrophils # (1.3-7.7) k/uL PT (10.0-12.5) sec INR (<1.2) ABG pH (7.35-7.45) ABG pO2 (83-108) mmHg ABG HCO3 (21-25) mmol/L ABG Total CO2 (19-24) mmol/L Chloride (98-107) mmol/L BUN (9-20) mg/dL Creatinine (0.66-1.25) mg/dL Glucose (74-99) mg/dL POC Glucose (mg/dL) 133 H 137 H 132 H (70-110) mg/dL Calcium (8.4-10.2) mg/dL Ammonia (<30) umol/L 10/26/23 10/26/23 10/26/23 Range/Units 05:27 05:45 05:45 WBC 14.7 H (3.8-10.6) k/uL RBC 2.70 L (4.30-5.90) m/uL Hgb 7.1 L (13.0-17.5) gm/dL Hct 23.2 L (39.0-53.0) % MCHC 30.7 L (31.0-37.0) g/dL RDW 19.7 H (11.5-15.5) % Plt Count 102 L (150-450) k/uL Neutrophils # 12.0 H (1.3-7.7) k/uL PT 15.6 H (10.0-12.5) sec INR 1.5 H (<1.2) ABG pH 7.47 H (7.35-7.45) ABG pO2 71 L (83-108) mmHg ABG HCO3 27 H (21-25) mmol/L ABG Total CO2 28 H (19-24) mmol/L Chloride (98-107) mmol/L BUN (9-20) mg/dL Creatinine (0.66-1.25) mg/dL Glucose (74-99) mg/dL POC Glucose (mg/dL) (70-110) mg/dL Calcium (8.4-10.2) mg/dL Ammonia (<30) umol/L 10/26/23 10/26/23 10/26/23 Range/Units 05:45 05:45 06:13 WBC (3.8-10.6) k/uL RBC (4.30-5.90) m/uL Hgb (13.0-17.5) gm/dL Hct (39.0-53.0) % MCHC (31.0-37.0) g/dL RDW (11.5-15.5) % Plt Count (150-450) k/uL Neutrophils # (1.3-7.7) k/uL PT (10.0-12.5) sec INR (<1.2) ABG pH (7.35-7.45) ABG pO2 (83-108) mmHg ABG HCO3 (21-25) mmol/L ABG Total CO2 (19-24) mmol/L Chloride 111 H (98-107) mmol/L BUN 73 H (9-20) mg/dL Creatinine 1.64 H (0.66-1.25) mg/dL Glucose 136 H (74-99) mg/dL POC Glucose (mg/dL) 148 H (70-110) mg/dL Calcium 7.9 L (8.4-10.2) mg/dL Ammonia 61 H (<30) umol/L Microbiology - Last 24 Hours (Table) 10/24/23 09:00 Gram Stain - Preliminary Sputum Sputum Culture - Preliminary Assessment and Plan Plan: Incarcerated umbilical hernia status postsurgical repair and the patient is postop day #10 Alcoholic liver cirrhosis with ongoing ascites and significant abdominal fluid collection on today's examination. Acute hypoxic respiratory failure S/P intubation and mechanical ventilation for impending respiratory failure, secondary to fulminant liver failure, October 19, 2023. 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 Rule out underlying spontaneous bacterial peritonitis. Another paracentesis was done today. Anion gap metabolic acidosis, resolved. Chronic kidney disease, rule out hepatorenal syndrome. Renal function stable for now Severe hyperammonemia and secondary metabolic encephalopathy and hepatic encephalopathy and the patient remains on lactulose. Ammonia level is elevated Lactic acidosis, recovered History of hyperlipidemia. History of hypertension, currently hypotensive on low-dose norepinephrine and midodrine History of depression and PTSD. History of chronic tobacco use. Anemia of chronic disease. Severe medical debility secondary above-mentioned comorbidities Plan: Keep the patient on pressure support of 7 and a PEEP of 5 for now, no plans for immediate extubation as the patient remains profoundly weak and debilitated and somewhat encephalopathic. Keep the patient off sedative medications for now. Precedex has been discontinued. Bedside paracentesis was done and a total of 5 L of fluid was removed. Will give the patient IV albumin and replacement. Will send the ascitic fluid for cell count and cultures Continue norepinephrine Continue midodrine Continue IV Zosyn Continue lactulose and add rifaximin mean 550 mg p.o. twice a day Monitor the white cell count Monitor the ammonia level Monitor the abdominal wound General surgery is on the case Continue enteral feeding for nutritional support Will continue to follow and will make further recommendations based on the progress. This evaluation was done more than 30 minutes. Time with Patient: Greater than 30
[2023-10-26] MEDS: RIFAXIMIN 550 MG TABLET PO SCH (14:04)
[2023-10-26] MEDS: SPIRONOLACTONE 25 MG TAB PO SCH (14:12)
[2023-10-26 16:52] LABS: Appearance,BF Hazy (Clear)
[2023-10-26 18:24] LABS: Glucose,Whole Blood 151 mg/dL (70-110)
[2023-10-26] MEDS: MEROPENEM 1 GM in SODIUM CHLORIDE 0.9% 100 ML IVPB SCH (18:41)
[2023-10-26 20:57] LABS: Glucose, BF Source Paracentesis Fluid; Glucose, Body Fluid 129 mg/dL; T. Protein, Body Fluid Source Paracentesis Fluid; Total Protein, Body Fluid 1310 mg/dL
[2023-10-26 21:08] LABS: Albumin, Fluid Source Ascities
--- NOTE | 2023-10-26 22:24 | P.CONS ---
History of Present Illness - Reason for Consult Consult date: 10/26/23 Burkholderia cepacia complex positive sputum Requesting physician: John Bosch - Chief Complaint Abdominal pain on admission -10 days ago - History of Present Illness Patient is a 43-year-old male past medical history significant for hypertension hyperlipidemia alcoholism liver cirrhosis presenting to the hospital 10 days ago on 10/16/2023 for evaluation of abdominal pain patient has been diagnosed with incarcerated umbilical hernia and this patient was status post open repair of the incarcerated back currently and embolectomy completed on 10/16/2023 patient subsequently did have worsening of his clinical condition thought to be related to hepatorenal syndrome and impending respiratory failure patient getting intubated on 10/19/2023 and the patient has been in the ICU since then patient did have a low-grade fever 100.4 on 10/21/2023 and no fever since then patient has been on the ventilator FiO2 is currently at 30% patient has been requiring pressor support to maintain his blood pressure he did have a white count of 14.7 patient did have a sputum cultures obtained which are currently growing 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 consultation patient has been on Zosyn per admitting team patient last chest x-ray this morning and still shows bilateral lower lobe infiltrate and small effusion abdominal ultrasound this morning small to moderate amount of ascites in the patient status post paracentesis with removal of 5 L of ascitic fluid, most information has been obtained from the chart as the patient is currently debated on the vent cannot provide any history no family member at the bedside Review of Systems Positive points has been mentioned in HPI complete review could not be obtained because patient intubated on the vent Past Medical History Past Medical History: Hyperlipidemia, Hypertension, Liver Disease, Pneumonia Additional Past Medical History / Comment(s): Alcoholism, past withdrawals with tremors/diaphoresis, elevated LFTs, alcoholic liver cirrhosis follows with Liver specialist based out of [place], ascities with lg volume paracentesis, severe sepsis/aspiration pneumonia, occasional upper back pain. History of Any Multi-Drug Resistant Organisms: None Reported Past Surgical History: No Surgical Hx Reported Additional Past Surgical History / Comment(s): Pt states he has never had surgery, multi large volume paracentesis weekly Past Anesthesia/Blood Transfusion Reactions: Unable to Obtain Additional Past Anesthesia/Blood Transfusion Reaction / Comm: Pt states he has never had surgery. Past Psychological History: Depression, PTSD Smoking Status: Current every day smoker Past Alcohol Use History: None Reported, Abuse Past Drug Use History: None Reported - Past Family History Mother Family Medical History: Cancer Additional Family Medical History / Comment(s): Mother has colon cancer. Father History Unknown: Yes Additional Family Medical History / Comment(s): All pt knows about his father is that he is . Medications and Allergies Home Medications Medication Instructions Recorded Confirmed Type Furosemide [Lasix] 40 mg PO DAILY #30 tablet 03/02/23 10/16/23 Rx HYDROcodone/APAP 5-325MG [[place] 1 - 2 tab PO Q4HR PRN 05/06/23 10/16/23 History 5-325] Midodrine HCl [ProAmatine] 10 mg PO TID 05/06/23 10/16/23 History Pantoprazole [Protonix] 40 mg PO DAILY 05/06/23 10/16/23 History Spironolactone [Aldactone] 25 mg PO BID #60 tab 05/14/23 10/16/23 Rx Allergies Allergy/AdvReac Type Severity Reaction Status Date / Time ibuprofen [From Motrin] Allergy Swelling Verified 10/16/23 14:20 Lips naproxen Allergy Swelling Verified 10/16/23 14:20 Lips Physical Exam Vitals: Vital Signs Temp Pulse Resp BP Pulse Ox FiO2 10/26/23 18:00 79 16 96 30 10/26/23 17:00 80 15 110/47 97 30 10/26/23 16:36 85 10/26/23 16:10 84 10/26/23 16:06 30 10/26/23 16:00 98.2 F 78 16 95 30 10/26/23 15:00 79 15 96 30 10/26/23 14:00 77 15 96 30 10/26/23 13:00 75 16 115/51 95 10/26/23 12:37 85 10/26/23 12:30 19 30 10/26/23 12:20 84 30 10/26/23 12:00 98.7 F 87 15 95 30 10/26/23 11:56 30 10/26/23 11:30 30 10/26/23 11:00 97 19 93 L 30 10/26/23 10:00 102 H 20 93 L 30 10/26/23 09:00 101 H 20 94 L 30 10/26/23 08:31 95 10/26/23 08:19 93 10/26/23 08:17 30 10/26/23 08:00 99.3 F 97 21 94 L 30 10/26/23 07:45 19 30 10/26/23 07:00 94 20 123/58 94 L 10/26/23 06:00 96 20 123/58 94 L 10/26/23 05:00 99 20 123/58 93 L 10/26/23 04:05 97 10/26/23 04:00 98.9 F 98 20 119/59 94 L 30 10/26/23 03:51 98 10/26/23 03:49 30 10/26/23 03:00 100 20 119/59 94 L 10/26/23 02:00 102 H 20 119/59 93 L 10/26/23 01:00 98 20 119/59 94 L 10/26/23 00:40 98 10/26/23 00:26 95 10/26/23 00:24 30 10/26/23 00:07 96 20 119/59 93 L 10/26/23 00:00 98.8 F 96 20 93 L 30 10/25/23 23:50 30 10/25/23 23:45 95 20 93 L 10/25/23 23:30 92 23 93 L 10/25/23 23:15 90 20 94 L 10/25/23 23:00 93 20 93 L 10/25/23 22:45 93 22 93 L 10/25/23 22:30 93 20 94 L 10/25/23 22:15 87 24 94 L 10/25/23 22:00 93 20 93 L 10/25/23 21:45 93 20 94 L 10/25/23 21:30 92 20 94 L 10/25/23 21:15 93 20 94 L 10/25/23 21:00 99 20 92 L 10/25/23 20:55 100 10/25/23 20:45 98 20 99 10/25/23 20:41 103 H 10/25/23 20:39 30 10/25/23 20:30 96 21 96 10/25/23 20:15 89 20 91 L 10/25/23 20:00 98.8 F 92 20 93 L 30 10/25/23 19:45 92 20 94 L 10/25/23 19:30 92 20 94 L 30 10/25/23 19:29 30 10/25/23 19:15 90 20 95 10/25/23 19:00 89 26 H 94 L 10/25/23 18:30 87 22 94 L Intake and Output 10/26/23 10/26/23 10/26/23 06:59 14:59 22:59 Intake Total 458.689 687.616 552.076 Output Total 340 5560 205 Balance 118.689 -4872.384 347.076 Intake: IV 184 364 169 Albumin Human 25% 50 ml 100 In Empty Bag 1 bag @ 50 mls/hr IVPB ONCE ONE Rx#: [id number] Lactated Ringers 1,000 ml 160 140 60 @ 20 mls/hr IV .Q24H [facility] Rx#:[id number] Piperacillin-Tazobactam 3 100 100 .375 gm In Sodium Chloride 0.9% 100 ml @ 25 mls/hr IVPB Q8H [facility] Rx#: [id number] Pressure Bag 24 24 9 Intake, IV Titration 24.689 23.616 143.076 Amount Norepinephrine 4 mg In 24.689 23.616 143.076 Sodium Chloride 0.9% 250 ml @ 0.03 MCG/KG/MIN 9. 201 mls/hr IV .Q24H [facility] Rx#:[id number] Tube Feeding 160 200 90 Other 90 100 150 Output: Drainage 10 Lower Abdomen 10 Urine 340 360 195 Other 5200 Other: Voiding Method Indwelling Catheter Indwelling Catheter Weight 88.3 kg 88.3 kg ABP, PAP, CO, CI - Last 8 Hours Arterial Blood Pressure 123/47 Arterial Blood Pressure 117/44 Arterial Blood Pressure 111/43 Arterial Blood Pressure 99/38 Arterial Blood Pressure 115/42 Arterial Blood Pressure 120/43 Arterial Blood Pressure 109/43 Arterial Blood Pressure 111/46 GENERAL DESCRIPTION: Middle-age male intubated on the vent HEENT: Shows Pallor , no scleral icterus. Oral mucous membrane is dry. NECK: Trachea central, no thyromegaly. LUNGS: Unlabored breathing. Decreased breath sounds at the base HEART: S1, S2, regular rate and rhythm. No loud murmur ABDOMEN: Soft, mild distention midline incision intact with no redness EXTREMITIES: No edema of feet. SKIN: No rash, no masses palpable. NEUROLOGICAL: The patient is sedated on the vent Results CBC & Chem 7: 10/27/23 03:55 10/27/23 09:15 Labs: Abnormal Lab Results - Last 24 Hours (Table) 10/26/23 10/26/23 10/26/23 Range/Units 00:04 05:27 05:45 WBC (3.8-10.6) k/uL RBC (4.30-5.90) m/uL Hgb (13.0-17.5) gm/dL Hct (39.0-53.0) % MCHC (31.0-37.0) g/dL RDW (11.5-15.5) % Plt Count (150-450) k/uL Neutrophils # (1.3-7.7) k/uL PT 15.6 H (10.0-12.5) sec INR 1.5 H (<1.2) ABG pH 7.47 H (7.35-7.45) ABG pO2 71 L (83-108) mmHg ABG HCO3 27 H (21-25) mmol/L ABG Total CO2 28 H (19-24) mmol/L Chloride (98-107) mmol/L BUN (9-20) mg/dL Creatinine (0.66-1.25) mg/dL Glucose (74-99) mg/dL POC Glucose (mg/dL) 132 H (70-110) mg/dL Calcium (8.4-10.2) mg/dL Ammonia (<30) umol/L Fluid Appearance (Clear) 10/26/23 10/26/23 10/26/23 Range/Units 05:45 05:45 05:45 WBC 14.7 H (3.8-10.6) k/uL RBC 2.70 L (4.30-5.90) m/uL Hgb 7.1 L (13.0-17.5) gm/dL Hct 23.2 L (39.0-53.0) % MCHC 30.7 L (31.0-37.0) g/dL RDW 19.7 H (11.5-15.5) % Plt Count 102 L (150-450) k/uL Neutrophils # 12.0 H (1.3-7.7) k/uL PT (10.0-12.5) sec INR (<1.2) ABG pH (7.35-7.45) ABG pO2 (83-108) mmHg ABG HCO3 (21-25) mmol/L ABG Total CO2 (19-24) mmol/L Chloride 111 H (98-107) mmol/L BUN 73 H (9-20) mg/dL Creatinine 1.64 H (0.66-1.25) mg/dL Glucose 136 H (74-99) mg/dL POC Glucose (mg/dL) (70-110) mg/dL Calcium 7.9 L (8.4-10.2) mg/dL Ammonia 61 H (<30) umol/L Fluid Appearance (Clear) 10/26/23 10/26/23 10/26/23 Range/Units 06:13 11:00 11:59 WBC (3.8-10.6) k/uL RBC (4.30-5.90) m/uL Hgb (13.0-17.5) gm/dL Hct (39.0-53.0) % MCHC (31.0-37.0) g/dL RDW (11.5-15.5) % Plt Count (150-450) k/uL Neutrophils # (1.3-7.7) k/uL PT (10.0-12.5) sec INR (<1.2) ABG pH (7.35-7.45) ABG pO2 (83-108) mmHg ABG HCO3 (21-25) mmol/L ABG Total CO2 (19-24) mmol/L Chloride (98-107) mmol/L BUN (9-20) mg/dL Creatinine (0.66-1.25) mg/dL Glucose (74-99) mg/dL POC Glucose (mg/dL) 148 H 148 H (70-110) mg/dL Calcium (8.4-10.2) mg/dL Ammonia (<30) umol/L Fluid Appearance Hazy A (Clear) 10/26/23 Range/Units 18:23 WBC (3.8-10.6) k/uL RBC (4.30-5.90) m/uL Hgb (13.0-17.5) gm/dL Hct (39.0-53.0) % MCHC (31.0-37.0) g/dL RDW (11.5-15.5) % Plt Count (150-450) k/uL Neutrophils # (1.3-7.7) k/uL PT (10.0-12.5) sec INR (<1.2) ABG pH (7.35-7.45) ABG pO2 (83-108) mmHg ABG HCO3 (21-25) mmol/L ABG Total CO2 (19-24) mmol/L Chloride (98-107) mmol/L BUN (9-20) mg/dL Creatinine (0.66-1.25) mg/dL Glucose (74-99) mg/dL POC Glucose (mg/dL) 151 H (70-110) mg/dL Calcium (8.4-10.2) mg/dL Ammonia (<30) umol/L Fluid Appearance (Clear) Microbiology - Last 24 Hours (Table) 10/24/23 09:00 Gram Stain - Preliminary Sputum Sputum Culture - Preliminary Burkholderia cepacia complex Assessment and Plan (1) Burkholderia cepacia infection Current Visit: Yes Status: Acute Code(s): A49.8 - OTHER BACTERIAL INFECTIONS OF UNSPECIFIED SITE SNOMED Code(s): 588290446 (2) Bilateral pneumonia Current Visit: No Status: Acute Code(s): J18.9 - PNEUMONIA, UNSPECIFIED ORGANISM SNOMED Code(s): 380451911 Plan: 1patient presented to hospital with abdominal pain has been diagnosed with incarcerated abdominal hernia s/p open repair and the patient subsequently did have worsening of his respiratory status and mentation requiring intubation now 10/19/2023 now with hypotension elevated white count sputum culture positive for Burkholderia cepacia complex chest x-ray with bilateral basilar infiltrate concerning for nosocomial gram-negative pneumonia 2-discontinue Zosyn 3-start the patient meropenem 1 g every 8 hours pending sensitivities We will follow on clinical condition and cultures to further adjust medication if needed Thank you for this consultation we will follow the patient along with you Dictation was produced using [employer] software. please excuse any grammatical, word or spelling errors. Time with Patient: Greater than 30
[2023-10-27 00:18] LABS: Glucose,Whole Blood 133 mg/dL (70-110)
[2023-10-27 04:24] LABS: African American GFR (CKD) 67 (>60 ml/min/1.73 sqM); Anion Gap 10 mmol/L; Blood Urea Nitrogen 73 mg/dL (9-20); Calcium 7.9 mg/dL (8.4-10.2); Carbon Dioxide 22 mmol/L (22-30); Chloride 113 mmol/L (98-107); Glucose 135 mg/dL (74-99); Non-African American GFR(CKD) 58 (>60 ml/min/1.73 sqM); Potassium 3.4 mmol/L (3.5-5.1); Sodium 145 mmol/L (137-145)
[2023-10-27 05:05] LABS: ABG HCO3 26 mmol/L (21-25); ABG Oxygen Saturation 97.6 % (94-97); ABG PCO2 31 mmHg (35-45); ABG PH 7.53 (7.35-7.45); ABG PO2 83 mmHg (83-108); ABG TCO2 27 mmol/L (19-24); Allen Test Performed? Yes
[2023-10-27 05:10] LABS: Anisocytosis Moderate; Basophils % (A) 0 %; Eosinophils # (A) 0.1 k/uL (0-0.7); Eosinophils % (A) 1 %; HCT 23.8 % (39.0-53.0); HGB 7.4 gm/dL (13.0-17.5); Hypochromasia Moderate; Lymphocytes % (A) 7 %; MCH 26.6 pg (25.0-35.0); MCHC 31.1 g/dL (31.0-37.0); MCV 85.5 fL (80.0-100.0); Mean Platelet Volume 10.3; Monocytes # (A) 0.5 k/uL (0-1.0); Monocytes % (A) 3 %; Neutrophils # (A) 12.4 k/uL (1.3-7.7); Neutrophils % (A) 87 %; Platelet Count 100 k/uL (150-450); RBC 2.79 m/uL (4.30-5.90); RDW 20.5 % (11.5-15.5); WBC 14.2 k/uL (3.8-10.6)
[2023-10-27 05:28] LABS: Glucose,Whole Blood 153 mg/dL (70-110)
[2023-10-27] MEDS: POTASSIUM BICARBONATE/CIT AC 20 MEQ TABLET.EFF NG-TUBE SCH ×3 (05:30→18:24)
--- NOTE | 2023-10-27 07:25 | XR ---
EXAMINATION TYPE: XR chest 1V portable DATE OF EXAM: 10/27/2023 COMPARISON: 10/26/2023 HISTORY: Shortness of breath TECHNIQUE: Single frontal view of the chest is obtained. FINDINGS: Limited inspiration with bilateral consolidation small effusion. No pneumothorax. ET tube, NG tube and central line stable. Osseous structures are stable. Prominent bowel loops in the upper a bdomen. IMPRESSION: Stable bilateral lower lobe infiltrate and small effusion. There are prominent bowel loo ps in the upper abdomen correlate clinically.
--- NOTE | 2023-10-27 09:55 | P.PN ---
Subjective Patient is seen in follow-up for acute kidney injury. Renal function better. Underwent paracentesis October 26, 2023 with 5 L drained. On Levophed. Receiving tube feeds. Vital signs are stable. On vasopressor support. General: Resting in bed. HEENT: Intubated. LUNGS: Scattered rhonchi. HEART: Rate and Rhythm are regular. ABDOMEN: Distention noted. EXTREMITITES: No edema. Objective - Vital Signs Vital signs: Vital Signs Temp 100.7 F H 10/27/23 08:00 Pulse 96 10/27/23 09:15 Resp 20 10/27/23 09:15 BP 116/55 10/27/23 09:15 Pulse Ox 99 10/27/23 09:15 FiO2 30 10/27/23 08:00 Intake & Output 10/26/23 10/27/23 10/27/23 18:59 06:59 18:59 Intake Total 1318.148 924.504 373.407 Output Total 5815 650 200 Balance -4496.852 274.504 173.407 Weight 88.3 kg 82.2 kg Intake: IV 556 256 129 Albumin Human 25% 50 ml 100 In Empty Bag 1 bag @ 50 mls/hr IVPB ONCE ONE Rx#: [id number] Lactated Ringers 1,000 ml 220 120 20 @ 20 mls/hr IV .Q24H [facility] Rx#:[id number] Meropenem 1 gm In Sodium 100 100 Chloride 0.9% 100 ml @ 33 .3 mls/hr IVPB Q8HR [facility] Rx#:[id number] Piperacillin-Tazobactam 3 200 .375 gm In Sodium Chloride 0.9% 100 ml @ 25 mls/hr IVPB Q8H [facility] Rx#: [id number] Pressure Bag 36 36 9 Intake, IV Titration 192.148 98.504 64.407 Amount Norepinephrine 4 mg In 192.148 98.504 64.407 Sodium Chloride 0.9% 250 ml @ 0.03 MCG/KG/MIN 9. 201 mls/hr IV .Q24H [facility] Rx#:[id number] Tube Feeding 320 510 150 Other 250 60 30 Output: Drainage 10 Lower Abdomen 10 Urine 605 650 200 Other 5200 Other: Voiding Method Indwelling Catheter Indwelling Catheter Indwelling Catheter ABP, PAP, CO, CI - Last Documented Arterial Blood Pressure 103/48 - Labs CBC & Chem 7: 07/02/24 03:55 10/27/23 03:55 Labs: Abnormal Lab Results - Last 24 Hours (Table) 10/26/23 10/26/23 10/26/23 Range/Units 11:00 11:59 18:20 WBC (3.8-10.6) k/uL RBC (4.30-5.90) m/uL Hgb (13.0-17.5) gm/dL Hct (39.0-53.0) % RDW (11.5-15.5) % Plt Count (150-450) k/uL Neutrophils # (1.3-7.7) k/uL ABG pH (7.35-7.45) ABG pCO2 (35-45) mmHg ABG HCO3 (21-25) mmol/L ABG Total CO2 (19-24) mmol/L ABG O2 Saturation (94-97) % Potassium (3.5-5.1) mmol/L Chloride (98-107) mmol/L BUN (9-20) mg/dL Creatinine (0.66-1.25) mg/dL Glucose (74-99) mg/dL POC Glucose (mg/dL) 148 H (70-110) mg/dL Calcium (8.4-10.2) mg/dL Ammonia 61 H (<30) umol/L Fluid Appearance Hazy A (Clear) 10/26/23 10/27/23 10/27/23 Range/Units 18:23 00:16 03:55 WBC 14.2 H (3.8-10.6) k/uL RBC 2.79 L (4.30-5.90) m/uL Hgb 7.4 L (13.0-17.5) gm/dL Hct 23.8 L (39.0-53.0) % RDW 20.5 H (11.5-15.5) % Plt Count 100 L (150-450) k/uL Neutrophils # 12.4 H (1.3-7.7) k/uL ABG pH (7.35-7.45) ABG pCO2 (35-45) mmHg ABG HCO3 (21-25) mmol/L ABG Total CO2 (19-24) mmol/L ABG O2 Saturation (94-97) % Potassium (3.5-5.1) mmol/L Chloride (98-107) mmol/L BUN (9-20) mg/dL Creatinine (0.66-1.25) mg/dL Glucose (74-99) mg/dL POC Glucose (mg/dL) 151 H 133 H (70-110) mg/dL Calcium (8.4-10.2) mg/dL Ammonia (<30) umol/L Fluid Appearance (Clear) 10/27/23 10/27/23 10/27/23 Range/Units 03:55 03:55 05:01 WBC (3.8-10.6) k/uL RBC (4.30-5.90) m/uL Hgb (13.0-17.5) gm/dL Hct (39.0-53.0) % RDW (11.5-15.5) % Plt Count (150-450) k/uL Neutrophils # (1.3-7.7) k/uL ABG pH 7.53 H (7.35-7.45) ABG pCO2 31 L (35-45) mmHg ABG HCO3 26 H (21-25) mmol/L ABG Total CO2 27 H (19-24) mmol/L ABG O2 Saturation 97.6 H (94-97) % Potassium 3.4 L (3.5-5.1) mmol/L Chloride 113 H (98-107) mmol/L BUN 73 H (9-20) mg/dL Creatinine 1.47 H (0.66-1.25) mg/dL Glucose 135 H (74-99) mg/dL POC Glucose (mg/dL) (70-110) mg/dL Calcium 7.9 L (8.4-10.2) mg/dL Ammonia 48 H (<30) umol/L Fluid Appearance (Clear) 10/27/23 Range/Units 05:26 WBC (3.8-10.6) k/uL RBC (4.30-5.90) m/uL Hgb (13.0-17.5) gm/dL Hct (39.0-53.0) % RDW (11.5-15.5) % Plt Count (150-450) k/uL Neutrophils # (1.3-7.7) k/uL ABG pH (7.35-7.45) ABG pCO2 (35-45) mmHg ABG HCO3 (21-25) mmol/L ABG Total CO2 (19-24) mmol/L ABG O2 Saturation (94-97) % Potassium (3.5-5.1) mmol/L Chloride (98-107) mmol/L BUN (9-20) mg/dL Creatinine (0.66-1.25) mg/dL Glucose (74-99) mg/dL POC Glucose (mg/dL) 153 H (70-110) mg/dL Calcium (8.4-10.2) mg/dL Ammonia (<30) umol/L Fluid Appearance (Clear) Microbiology - Last 24 Hours (Table) 10/26/23 11:00 Gram Stain - Preliminary Paracentesis Fluid Body Fluid Culture - Preliminary 10/24/23 09:00 Gram Stain - Final Sputum Sputum Culture - Final Burkholderia cepacia complex Assessment and Plan Plan: Assessment: 1. Acute kidney injury secondary to ATN secondary to hypotension. No evidence of hydronephrosis noted on CAT scan done September 04, 2023. Creatinine peaked at 3.0 this admission -1.47 today. 2. Alcohol induced liver cirrhosis. 3. Metabolic acidosis secondary to acute kidney injury. Improved. 4. Status post open repair of incarcerated umbilical hernia and embolectomy on October 16, 2023. 5. Hepatic encephalopathy. 6. Acute hypoxic respiratory failure. Currently intubated. 7. Ascites status post paracentesis October 26, 2023 with 5 L drained. 8. Hypokalemia from poor intake and diuresis. Replaced. Plan: Maintain tube feeds. Wean Levophed. Maintain midodrine. Avoid nephrotoxins. Continue to monitor renal function and urine output. Maintain Aldactone. Check magnesium level.
--- NOTE | 2023-10-27 10:21 | P.PN ---
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 He presented to the emergency department on 10/16/23 with a chief complaint of intractable abdominal pain and reports umbilical hernia is now nonreducible. Vital signs upon arrival showed BP 115/69, HR 76, RR 18, T 97.8 F, and SpO2 100% on RA. EKG showed normal sinus rhythm at 63 bpm with no noted T wave or ST abnormalities. CBC showing bicytopenia with Hg 7.9 and Plt 98. Coagulation profile showed PT of 14.7 and INR 1.4. BMP showing Na 133, Cl 110, bicarb of 13, and anion gap of 10, BUN of 35, creatinine 1.65, GFR 51. Blood glucose was 119. Lactic acid was 1.8. Liver profile was unremarkable. Patient was evaluated by general surgeon, he is being admitted to general surgery team with plans to be taken to the OR for open surgical repair of incarcerated umbilical hernia. We were consulted for preoperative medical clearance and p ostoperative medical management. Patient underwent open repair of incarcerated umbilical hernia with umbillectomy on 10/[address] Hair. Renal function continued to worsen. Also noted to be more acidotic. Patient was started on albumin and octreotide. Midodrine was increased and Nephrology was consulted. Patient was started on bicarb drip. Renal function improving. Patient became encephalopathic on 10/18, started on rectal lactulose and transferred to medical ICU. His mentation continued to worsen, and he was intubated on 10/18. Started on Rocephin for concerns of SBP on 10/18. He has required Levophed since being intubated which is being slowly titrated down. CXR showing signs of right sided PNA, pro-mony elevated at 3.62, Rocephin switched to Zosyn on 10/21. Generalized tremors noted on 10/19, CT brain was negative for acute pathology and EEG showed moderate to severe background slowing. Started on Fentanyl drip (10/21-10/22) which improved his tremors, likely related to pain. There was concern for GI bleed as well. Hg downtrending to 6.6 on 10/21 requiring 1 unit PRBC. Remains intubated on pressors.No reported vomiting or diarrhea. Objective - Vital Signs Vital signs: Vital Signs Temp 100.7 F H 10/27/23 08:00 Pulse 96 10/27/23 09:15 Resp 20 10/27/23 09:15 BP 116/55 10/27/23 09:15 Pulse Ox 99 10/27/23 09:15 FiO2 30 10/27/23 08:00 Intake & Output 10/26/23 10/27/23 10/27/23 18:59 06:59 18:59 Intake Total 1318.148 924.504 373.407 Output Total 5815 650 200 Balance -4496.852 274.504 173.407 Weight 88.3 kg 82.2 kg Intake: IV 556 256 129 Albumin Human 25% 50 ml 100 In Empty Bag 1 bag @ 50 mls/hr IVPB ONCE ONE Rx#: [id number] Lactated Ringers 1,000 ml 220 120 20 @ 20 mls/hr IV .Q24H [facility] Rx#:[id number] Meropenem 1 gm In Sodium 100 100 Chloride 0.9% 100 ml @ 33 .3 mls/hr IVPB Q8HR [facility] Rx#:[id number] Piperacillin-Tazobactam 3 200 .375 gm In Sodium Chloride 0.9% 100 ml @ 25 mls/hr IVPB Q8H [facility] Rx#: [id number] Pressure Bag 36 36 9 Intake, IV Titration 192.148 98.504 64.407 Amount Norepinephrine 4 mg In 192.148 98.504 64.407 Sodium Chloride 0.9% 250 ml @ 0.03 MCG/KG/MIN 9. 201 mls/hr IV .Q24H [facility] Rx#:[id number] Tube Feeding 320 510 150 Other 250 60 30 Output: Drainage 10 Lower Abdomen 10 Urine 605 650 200 Other 5200 Other: Voiding Method Indwelling Catheter Indwelling Catheter Indwelling Catheter ABP, PAP, CO, CI - Last Documented Arterial Blood Pressure 103/48 - Exam General: Intubated sedated On vent Derm: Warm, dry, jaundice Head: Atraumatic, normocephalic, symmetric Eyes: Scleral icterus, pupils equal and reactive Mouth: No lip lesion, mucus membranes moist Cardiovascular: S1S2 reg, no murmur Lungs: Coarse BS bilateral, no rhonchi, no rales, no accessory muscle use, intubated Abdominal: Distended, nontender to palpation, no guarding, no appreciable organomegaly, midline dressing clean, dry, intact, + Epps Ext: Gross muscle atrophy Neuro: Sedated Psych: Unable to assess - Labs CBC & Chem 7: 10/27/23 03:55 10/27/23 03:55 Labs: Abnormal Lab Results - Last 24 Hours (Table) 10/26/23 10/26/23 10/26/23 Range/Units 11:00 11:59 18:20 WBC (3.8-10.6) k/uL RBC (4.30-5.90) m/uL Hgb (13.0-17.5) gm/dL Hct (39.0-53.0) % RDW (11.5-15.5) % Plt Count (150-450) k/uL Neutrophils # (1.3-7.7) k/uL ABG pH (7.35-7.45) ABG pCO2 (35-45) mmHg ABG HCO3 (21-25) mmol/L ABG Total CO2 (19-24) mmol/L ABG O2 Saturation (94-97) % Potassium (3.5-5.1) mmol/L Chloride (98-107) mmol/L BUN (9-20) mg/dL Creatinine (0.66-1.25) mg/dL Glucose (74-99) mg/dL POC Glucose (mg/dL) 148 H (70-110) mg/dL Calcium (8.4-10.2) mg/dL Ammonia 61 H (<30) umol/L Fluid Appearance Hazy A (Clear) 10/26/23 10/27/23 10/27/23 Range/Units 18:23 00:16 03:55 WBC 14.2 H (3.8-10.6) k/uL RBC 2.79 L (4.30-5.90) m/uL Hgb 7.4 L (13.0-17.5) gm/dL Hct 23.8 L (39.0-53.0) % RDW 20.5 H (11.5-15.5) % Plt Count 100 L (150-450) k/uL Neutrophils # 12.4 H (1.3-7.7) k/uL ABG pH (7.35-7.45) ABG pCO2 (35-45) mmHg ABG HCO3 (21-25) mmol/L ABG Total CO2 (19-24) mmol/L ABG O2 Saturation (94-97) % Potassium (3.5-5.1) mmol/L Chloride (98-107) mmol/L BUN (9-20) mg/dL Creatinine (0.66-1.25) mg/dL Glucose (74-99) mg/dL POC Glucose (mg/dL) 151 H 133 H (70-110) mg/dL Calcium (8.4-10.2) mg/dL Ammonia (<30) umol/L Fluid Appearance (Clear) 10/27/23 10/27/23 10/27/23 Range/Units 03:55 03:55 05:01 WBC (3.8-10.6) k/uL RBC (4.30-5.90) m/uL Hgb (13.0-17.5) gm/dL Hct (39.0-53.0) % RDW (11.5-15.5) % Plt Count (150-450) k/uL Neutrophils # (1.3-7.7) k/uL ABG pH 7.53 H (7.35-7.45) ABG pCO2 31 L (35-45) mmHg ABG HCO3 26 H (21-25) mmol/L ABG Total CO2 27 H (19-24) mmol/L ABG O2 Saturation 97.6 H (94-97) % Potassium 3.4 L (3.5-5.1) mmol/L Chloride 113 H (98-107) mmol/L BUN 73 H (9-20) mg/dL Creatinine 1.47 H (0.66-1.25) mg/dL Glucose 135 H (74-99) mg/dL POC Glucose (mg/dL) (70-110) mg/dL Calcium 7.9 L (8.4-10.2) mg/dL Ammonia 48 H (<30) umol/L Fluid Appearance (Clear) 10/27/23 Range/Units 05:26 WBC (3.8-10.6) k/uL RBC (4.30-5.90) m/uL Hgb (13.0-17.5) gm/dL Hct (39.0-53.0) % RDW (11.5-15.5) % Plt Count (150-450) k/uL Neutrophils # (1.3-7.7) k/uL ABG pH (7.35-7.45) ABG pCO2 (35-45) mmHg ABG HCO3 (21-25) mmol/L ABG Total CO2 (19-24) mmol/L ABG O2 Saturation (94-97) % Potassium (3.5-5.1) mmol/L Chloride (98-107) mmol/L BUN (9-20) mg/dL Creatinine (0.66-1.25) mg/dL Glucose (74-99) mg/dL POC Glucose (mg/dL) 153 H (70-110) mg/dL Calcium (8.4-10.2) mg/dL Ammonia (<30) umol/L Fluid Appearance (Clear) Microbiology - Last 24 Hours (Table) 10/26/23 11:00 Gram Stain - Preliminary Paracentesis Fluid Body Fluid Culture - Preliminary 10/24/23 09:00 Gram Stain - Final Sputum 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 Vent managed by Pulmonary.Continue to wean as tolerated Septic shock likely secondary to below: Antibiotics as below. BCx, Sputum Cx (10/18) and Paracentesis Cx (10/15) negative. Titrate Levophed to MAP > 65. Telemetry monitoring.Continue supportive Ventilator Associated Pneumonia: Started on Zosyn 10/21 should cover for both SBP and pseudomonas. Pro-mony elevated. Sputum Cx collected 10/23 shows few PMN, rare gram negative bacilli.Pulmonary critical care following Suspected spontaneous bacterial peritonitis: Ascitic fluid culture negative. BCx negative. Sputum Cx negative. Rocephin switched to Zosyn 3.375g IV TID (D5). Acute hepatic encephalopathy: Lactulose 20g PO TID. Fecal management system in place. Acute GI bleed: 1 unit PRBC 10/21. Surgery on board recommending continued monitoring. Protonix 40 mg IV QD. Transfuse if Hg < 7.Hemoglobin 7.4 IVAN, secondary to suspected hepatorenal syndrome, history of CKD stage III: Nephrology recommends continuing LR, midodrine and Sandostatin along with albumin. Tremors: Likely pain related. CT brain negative. EEG mod-severe encaphalopathy. Improved with Fentanyl. History of advanced liver cirrhosis: Continue Albumin 12.5g IV QD, Midodrine 15 mg PO TID, Octreotide 100mcg subQ TID. Bicytopenia secondary to liver cirrhosis, monitor Elevated INR Incarcerated/strangulated umbilical hernia status post open repair: Management per general surgery Resolved: Metabolic and lactic acidosis Disposition: Remains in ICU.
[2023-10-27 10:51] LABS: Potassium 3.6 mmol/L (3.5-5.1)
[2023-10-27 12:09] LABS: Glucose,Whole Blood 154 mg/dL (70-110)
--- NOTE | 2023-10-27 12:21 | P.PN ---
Subjective Progress Note Date: 10/27/23 Pulmonary consult dated October 19, 2023. 44-year-old male who presented to the emergency department, on October 15, complaining of abdominal pain. The patient has a history of chronic liver disease from alcohol abuse, with cirrhosis and ascites, and need for periodic paracentesis abdominis. The patient has a known history of a umbilical hernia, which she is able to typically reduce, but because he was not able to reduce it, he came in to be evaluated. The patient ended up having surgery, last Thursday, on the , and initially was doing okay. This morning I was called by the surgeon, and my charge nurse in the intensive care unit, to say that the patient was doing poorly, and should be transferred down to the intensive care unit for further monitoring and management. The patient was very lethargic, and looked very unstable, with impending respiratory failure. When I first saw the patient he was on room air, and receiving an IV with 3 ampoules of sodium bicarb in D5W at 80 cc an hour. I asked for stat blood gas, when the patient came to the intensive care unit. His pO2 was 40, pCO2 27, pH is 7.41. After evaluating the patient, I decided to intubate the patient which we did, and place a central line and arterial line, both of which we did. Current laboratory data includes a blood gas showing a pO2 of 393, pCO2 41, pH is 7.26. Saturations are 100%. White count is 18.9, hemoglobin 8.3, hematocrit 26.3, and a platelet count of 156,000. Sodium 137, potassium 4.5, chlorides 106, CO2 14, anion gap 17, BUN 69.6, and creatinine 3. Glucose was 126. Lactic acid was 2.8. Bilirubin was 1.5. Ammonia level was up to 259. Cultures of the ascitic fluid are thus far negative. Chest x-ray shows endotracheal tube to be in good position. Central line is in good position, without complication. Progress note dated October 20, 2023. The patient is seen today in room 263. The patient was intubated, and lined yesterday, for respiratory failure. The patient has a history of chronic liver disease, with cirrhosis, ascites, and encephalopathy. Currently, the patient is on volume assist-control, rate 20, tidal volume 400, FiO2 40%, PEEP of 5. Blood gases show pO2 108, pCO2 28, pH is 7.46. This blood gases consistent with a mild respiratory alkalosis. The patient is getting D5W with 3 ampoules of sodium bicarbonate at 80 cc an hour. The patient is getting norepinephrine at 3 mcg/min, propofol at 50 mcg/kg/min. The patient has been having tremor-like activity, and could be seizing. The brain CT was negative. The patient will have tube feedings beginning today. We have ordered an EEG. In addition, I have asked the nurse to give the patient 2 mg of Ativan, to see if the tremors cease. White count is 13, hemoglobin 7, hematocrit 23, platelet count 106,000. Sodium 138, potassium 3.5, chlorides 111, CO2 17, anion gap 10, BUN 63, creatinine 2.27. Glucose is 160. Ammonia level is down to 49. Albumin is 3.1. Thus far, cultures are negative. The patient's chest x-ray shows the endotracheal tube to be high in the trachea, and have asked respiratory therapy to push it down to 1.5 cm. Progress note dated October 21, 2023. The patient is seen today in room 263. He remains on mechanical ventilator. He is on volume assist-control, rate 20, tidal volume 400, FiO2 40%, PEEP of 5. Blood gases show pO2 of 64, pCO2 37, pH is 7.47. The patient is getting propo fol at 50 mcg/kg/min, D5W with 3 ampoules of bicarbonate at 80 cc an hour, fentanyl drip at 1 mcg/kg/h, vital AF at 29 cc an hour, with a goal of 43 cc an hour. The patient also continues on Rocephin. White count is 10.3, hemoglobin 7, hematocrit 22.8, and platelet count 109,000. Sodium 137, potassium 3.7, chlorides 104, CO2 24, BUN 54, and creatinine 1.76. Glucose is 116. Ammonia level is 56. Calcium is 7.7. Cultures are thus far negative. Chest x-ray is unchanged. There is a small left pleural effusion. NG tube, endotracheal tube, and central venous catheter, are in appropriate positions. Progress note dated October 22, 2023. 43-year-old male seen again in the intensive care unit, room 263. He remains on the mechanical ventilator. The patient's ventilator settings include volume assist-control, rate 20, tidal volume 400, FiO2 40%, PEEP of 5. Blood gases show pO2 68, pCO2 45, pH is 7.41. The patient is on norepinephrine at 9 mcg/min, propofol at 50 mcg/kg/min, lactated Ringer's at 75 cc an hour, and fentanyl at 1 mcg/kg/h. The patient is getting tube feedings with vital AF at 43 cc an hour, which is goal. Microbiologic studies are thus far negative. The patient is on Rocephin. He has received 1 unit of packed red blood cells. Current labs include a white count 10.5, hemoglobin 6.6, hematocrit 22.2, and a platelet count of 97,000. Sodium 138, potassium 3.4, chlorides 106, CO2 26, BUN 53, creatinine 1.78. Glucose is 140. Albumin is 2.8. Total bilirubin is 1.4. Chest x-ray shows air space opacities, in the lung bases, which have worsened. Lines and tubes are in good placement. Note dated October 23, 2023. 43-year-old male seen again in room 263. He remains on mechanical ventilator. Vent settings include volume assist-control, rate 20, tidal volume 400, FiO2 40%, PEEP of 5. Blood gases show pO2 87, pCO2 44, pH is 7.40. The patient is getting lactated Ringer's at 75 cc an hour, propofol at 45 mcg/kg/min, norepinephrine at 7.7 mcg/min, and saline at 10 cc an hour. The patient is also getting vital AF, at 10 cc an hour. He continues on Zosyn. We will check a procalcitonin level. The patient will have a daily interruption of sedation, without a spontaneous breathing trial today. Current labs include a white count of 12.7, hemoglobin 7.8, hematocrit 26, platelet count 75,000. Sodium 138, potassium 4.1, chlorides 105, CO2 26, BUN 47, creatinine 1.35. Glucose is 141. Albumin is 3.1. Cultures thus far negative including blood and sputum. Chest x-ray shows the OG tube, to remain in satisfactory position. There is persistent bibasilar infiltrates and/or atelectasis. Progress note dated October 24, 2023. 43-year-old male seen again in room 263. The patient remains on the mechanical ventilator. He is on volume assist-control, rate 20, tidal volume 400, FiO2 30%, PEEP of 5. Blood gases show pO2 69, pCO2 39, and pH is 7.44. The patient remains on propofol at 20 mcg/kg/min, norepinephrine at 2.4 mcg/min, lactated Ringer's at 50 cc an hour, and saline at 10 cc an hour. Patient is getting vital AF at 20, with a goal at 20 cc an hour. The patient continues on Zosyn. His procalcitonin level was 3.62. He will get 1 dose of Lasix 40 mg IV push. His lactated Ringer's IV, will be made KVO. Current labs include a white count of 17.6, hemoglobin 7.4, hematocrit 24.8, and a platelet count of 98,000. Sodium 142, potassium 3.8, chlorides 107, CO2 26, BUN 51, creatinine 1.36. Calcium is 8.2. Albumin is 3.0. Ammonia level was 22. All cultures are thus far negative. Chest x-ray shows small lung volumes, with basilar infiltrates or atelectasis, and small effusions. Progress note dated October 25, 2023. 43-year-old male seen again in room 263. The patient remains on the ventilator. He is on volume assist-control, rate 20, tidal volume 400, FiO2 30%, PEEP of 5. Blood gases show pO2 of 70, pCO2 39, pH is 7.46. The patient getting lactated Ringer's at 20 cc an hour, norepinephrine at 5.6 mcg/min, and vital AF at 20 cc an hour, which is goal. The patient will have a spontaneous breathing trial today, as he has been off of propofol for some time. His cultures are negative. He continues on Zosyn. I am not hopeful that the patient will be extubated today. White count 19.1, hemoglobin 7.3, hematocrit 23.8, platelet count 105,000. Sodium 143, potassium 3.8, chlorides 109, CO2 26, BUN 62, creatinine 1.60. Glucose 131. Albumin 2.8. Calcium 8.1. Cultures are thus far negative. Chest x-ray shows small lung volumes. Endotracheal tube is in appropriate position in the trachea. There is basilar atelectasis, and small bilateral pleural effusions. On today's evaluation of 10/26/2023, the patient remains intubated on mechanical ventilator. As mentioned, the patient is post repair of incarcerated abdominal/umbilical hernia. The patient is known to have liver cirrhosis secondary to alcoholism. The patient has large ascites in addition. The patient has been off Precedex since 10/24/2023. On today's evaluation, he is extremely lethargic. He is following some simple commands. Unable to cough. Unable to raise his arms against gravity. His serum ammonia level has been measured at 61 and the patient continues to be on lactulose. His last bowel movement was 48 hours ago. In terms of his breathing, the patient is on a assist-control mode of mechanical ventilation at rate of 20, tidal volume of 400, FiO2 30% with a PEEP of 5 with a blood gas showing a pH of 7.47 with a pCO2 of 38 and pO2 of 71. The patient remains on low-dose norepinephrine running at 0.02 mcg/kg/min. Lactated Ringer's running at a rate of. Urine output is adequate at 60 cc. Earlier this morning, the patient was taken off the assist- control mode of mechanical ventilation and placed on a pressure support of 7 and a PEEP of 5 and he was able to generate adequate minute ventilation and tidal volume. He has a CHRIS drain and output is minimal and this was serous in nature. The white cell count is 14.7 with a heme of 7.1 and a platelet count of 102. INR is 1.5, sodium is at 144, BUN is 73 with a creatinine of 1.6 and a sodium levels at 144 and a potassium level is at 3.7. The patient is on IV Zosyn as an empiric antibiotic coverage. Based on all this, and based on the large ascitic fluid, I did a bedside paracentesis and the patient had a total of 5 L of ascitic fluid was aspirated and this will be sent for cultures and analysis. His sputum samples from 10/24/2023 is showing Burkholderia chest x-ray reveals smaller lung volumes along with some small bilateral pleural effusions. The patient is on DuoNeb nebulized treatments [id number]. The patient on midodrine 15 mg p.o. 3 times daily. Low-dose norepinephrine. 10/27/2023, patient remains intubated on the mechanical ventilator. Remains encephalopathic despite some improvement in his ammonia level. The patient serum ammonia level is down to 48 and the patient is currently on lactulose and rifaximin. Noted the patient has a fecal management system in place and is producing adequate amount of bowel movement. Grimaces to painful stimulation. Occasionally follows commands. Very much lethargic. Very much weak. Has a weak cough. May not be able to protect his airway postextubation for that reason we kept him on the mechanical ventilator for now. On today's evaluation, he is showing a less distended abdomen as the patient underwent a paracentesis and the ascitic fluid showed no clear indication for an underlying infection. The cell count of mesenteric fluid was 170. Cultures are still pending for now. The patient remains on pressure control mode of mechanical ventilation at the rate of 50, pressure control of 50, expiratory, 0.8, FiO2 of 30% with a PEEP of 5. Blood gas showed a pH of 7.33 with a pCO2 of 31 and a pO2 of 83. The patient remains off sedative medications. His labs from today showed a white c ell count of 14.2 with a hemoglobin of 7.4 and a platelet count of 100. BUN is 73 with a creatinine 1.47 and a sodium noted at 145 with a potassium level is at 3.6. Serum bicarb is at 22. The chest x-ray findings chronic stable bilateral lower lobe pulmonary infiltrates and the patient remains on broad-spectrum antibiotics and the patient remains on IV meropenem. 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 Objective - Vital Signs Vital signs: Vital Signs Temp 100.7 F H 10/27/23 08:00 Pulse 98 10/27/23 11:30 Resp 20 10/27/23 09:15 BP 116/55 10/27/23 09:15 Pulse Ox 99 10/27/23 09:15 FiO2 30 10/27/23 10:59 Intake & Output 10/26/23 10/27/23 10/27/23 18:59 06:59 18:59 Intake Total 1318.148 924.504 505.237 Output Total 5815 650 200 Balance -4496.852 274.504 305.237 Weight 88.3 kg 82.2 kg Intake: IV 556 256 129 Albumin Human 25% 50 ml 100 In Empty Bag 1 bag @ 50 mls/hr IVPB ONCE ONE Rx#: [id number] Lactated Ringers 1,000 ml 220 120 20 @ 20 mls/hr IV .Q24H [facility] Rx#:[id number] Meropenem 1 gm In Sodium 100 100 Chloride 0.9% 100 ml @ 33 .3 mls/hr IVPB Q8HR [facility] Rx#:[id number] Piperacillin-Tazobactam 3 200 .375 gm In Sodium Chloride 0.9% 100 ml @ 25 mls/hr IVPB Q8H [facility] Rx#: [id number] Pressure Bag 36 36 9 Intake, IV Titration 192.148 98.504 196.237 Amount Norepinephrine 4 mg In 192.148 98.504 196.237 Sodium Chloride 0.9% 250 ml @ 0.03 MCG/KG/MIN 9. 201 mls/hr IV .Q24H [facility] Rx#:[id number] Tube Feeding 320 510 150 Other 250 60 30 Output: Drainage 10 Lower Abdomen 10 Urine 605 650 200 Other 5200 Other: Voiding Method Indwelling Catheter Indwelling Catheter Indwelling Catheter ABP, PAP, CO, CI - Last Documented Arterial Blood Pressure 103/48 - Exam Comment comfortable, quite debilitated and body mass index of 26.4. Orally placed endotracheal tube and NG tube noted. Lethargic, encephalopathic and arou sable. Following simple commands. The patient has been off sedative medications. HEENT examination is grossly unremarkable. Mucous membranes are dry. Teeth are in very poor condition Neck supple. Full range of motion. No adenopathy thyromegaly or neck vein distention. Cardiovascular examination reveals regular rhythm rate. S1-S2 normal. No S3 or S4. No discernible murmur noted. Lungs reveal scattered crackles and rhonchi. No wheezes. Breath sounds equal. Abdomen soft, without bowel sounds. No masses. Likely, there is ascites. The surgical abdominal wound scar is dry clean and intact. No active drainage. There is a fluid wave and shifting dullness consistent with ascites. Extremities are intact. No cyanosis clubbing or edema. Skin is jaundiced. Neurologic examination arousable he is very much lethargic and encephalopathic. Follows simple commands. - Labs CBC & Chem 7: 10/27/23 03:55 10/27/23 09:15 Labs: Abnormal Lab Results - Last 24 Hours (Table) 10/26/23 10/26/23 10/26/23 Range/Units 11:00 18:20 18:23 WBC (3.8-10.6) k/uL RBC (4.30-5.90) m/uL Hgb (13.0-17.5) gm/dL Hct (39.0-53.0) % RDW (11.5-15.5) % Plt Count (150-450) k/uL Neutrophils # (1.3-7.7) k/uL ABG pH (7.35-7.45) ABG pCO2 (35-45) mmHg ABG HCO3 (21-25) mmol/L ABG Total CO2 (19-24) mmol/L ABG O2 Saturation (94-97) % Potassium (3.5-5.1) mmol/L Chloride (98-107) mmol/L BUN (9-20) mg/dL Creatinine (0.66-1.25) mg/dL Glucose (74-99) mg/dL POC Glucose (mg/dL) 151 H (70-110) mg/dL Calcium (8.4-10.2) mg/dL Magnesium (1.6-2.3) mg/dL Ammonia 61 H (<30) umol/L Fluid Appearance Hazy A (Clear) 10/27/23 10/27/23 10/27/23 Range/Units 00:16 03:55 03:55 WBC 14.2 H (3.8-10.6) k/uL RBC 2.79 L (4.30-5.90) m/uL Hgb 7.4 L (13.0-17.5) gm/dL Hct 23.8 L (39.0-53.0) % RDW 20.5 H (11.5-15.5) % Plt Count 100 L (150-450) k/uL Neutrophils # 12.4 H (1.3-7.7) k/uL ABG pH (7.35-7.45) ABG pCO2 (35-45) mmHg ABG HCO3 (21-25) mmol/L ABG Total CO2 (19-24) mmol/L ABG O2 Saturation (94-97) % Potassium 3.4 L (3.5-5.1) mmol/L Chloride 113 H (98-107) mmol/L BUN 73 H (9-20) mg/dL Creatinine 1.47 H (0.66-1.25) mg/dL Glucose 135 H (74-99) mg/dL POC Glucose (mg/dL) 133 H (70-110) mg/dL Calcium 7.9 L (8.4-10.2) mg/dL Magnesium (1.6-2.3) mg/dL Ammonia (<30) umol/L Fluid Appearance (Clear) 10/27/23 10/27/23 10/27/23 Range/Units 03:55 05:01 05:26 WBC (3.8-10.6) k/uL RBC (4.30-5.90) m/uL Hgb (13.0-17.5) gm/dL Hct (39.0-53.0) % RDW (11.5-15.5) % Plt Count (150-450) k/uL Neutrophils # (1.3-7.7) k/uL ABG pH 7.53 H (7.35-7.45) ABG pCO2 31 L (35-45) mmHg ABG HCO3 26 H (21-25) mmol/L ABG Total CO2 27 H (19-24) mmol/L ABG O2 Saturation 97.6 H (94-97) % Potassium (3.5-5.1) mmol/L Chloride (98-107) mmol/L BUN (9-20) mg/dL Creatinine (0.66-1.25) mg/dL Glucose (74-99) mg/dL POC Glucose (mg/dL) 153 H (70-110) mg/dL Calcium (8.4-10.2) mg/dL Magnesium (1.6-2.3) mg/dL Ammonia 48 H (<30) umol/L Fluid Appearance (Clear) 10/27/23 10/27/23 Range/Units 09:15 12:06 WBC (3.8-10.6) k/uL RBC (4.30-5.90) m/uL Hgb (13.0-17.5) gm/dL Hct (39.0-53.0) % RDW (11.5-15.5) % Plt Count (150-450) k/uL Neutrophils # (1.3-7.7) k/uL ABG pH (7.35-7.45) ABG pCO2 (35-45) mmHg ABG HCO3 (21-25) mmol/L ABG Total CO2 (19-24) mmol/L ABG O2 Saturation (94-97) % Potassium (3.5-5.1) mmol/L Chloride (98-107) mmol/L BUN (9-20) mg/dL Creatinine (0.66-1.25) mg/dL Glucose (74-99) mg/dL POC Glucose (mg/dL) 154 H (70-110) mg/dL Calcium (8.4-10.2) mg/dL Magnesium 3.0 H (1.6-2.3) mg/dL Ammonia (<30) umol/L Fluid Appearance (Clear) Microbiology - Last 24 Hours (Table) 10/26/23 11:00 Gram Stain - Preliminary Paracentesis Fluid Body Fluid Culture - Preliminary 10/24/23 09:00 Gram Stain - Final Sputum Sputum Culture - Final Burkholderia cepacia complex Assessment and Plan Plan: Incarcerated umbilical hernia status postsurgical repair and the patient is postop day # 11 Alcoholic liver cirrhosis and the patient has both paracentesis done on 10/26/2023 with removal of 5 L of ascitic fluid with appropriate albumin replacement. Acute hypoxic respiratory failure S/P intubation and mechanical ventilation for impending respiratory failure, secondary to fulminant liver failure, October 19, 2023. 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 The patient's chest x-ray findings are stable and the patient is currently on IV meropenem. Chronic liver disease/cirrhosis, and ascites, secondary to previous significant alcohol abuse. No evidence of any bacterial peritonitis Anion gap metabolic acidosis, resolved. Chronic kidney disease, rule out hepatorenal syndrome. Renal function stable for now Severe hyperammonemia and secondary metabolic encephalopathy and hepatic enc ephalopathy and the patient remains on lactulose. Ammonia level is improving and the patient is currently on lactulose and rifaximin Lactic acidosis, recovered History of hyperlipidemia. History of hypertension, currently hypotensive on low-dose norepinephrine and midodrine History of depression and PTSD. History of chronic tobacco use. Anemia of chronic disease. Severe medical debility secondary above-mentioned comorbidities Plan: Keep the patient on pressure control mode of mechanical ventilation, no plans for immediate extubation as the patient remains profoundly weak and debilitated and somewhat encephalopathic. Keep the patient off sedative medications for now. Precedex has been discontinued. Bedside paracentesis was done and a total of 5 L of fluid was removed. Will give the patient IV albumin and replacement. This was performed on 10/26/2023 I think fluid now shows no evidence of any SBP Continue norepinephrine Continue midodrine Continue IV meropenem Continue lactulose and rifaximin mean 550 mg p.o. twice a day Monitor the white cell count Monitor the ammonia level, currently improving Monitor the abdominal wound General surgery is on the case Continue enteral feeding for nutritional support Will continue to follow and will make further recommendations based on the progress. This evaluation was done more than 30 minutes. Time with Patient: Greater than 30
[2023-10-27] MEDS: ACETAMINOPHEN TAB 325 MG TAB PO PRN (14:23)
--- NOTE | 2023-10-27 14:59 | P.PN ---
Subjective Progress Note Date: 10/27/23 Principal diagnosis: Reason for follow-up is pneumonia Patient is a 43-year-old male past medical history significant for hypertension hyperlipidemia alcoholism liver cirrhosis presenting to the hospital on 10/16/2023 for evaluation of abdominal pain, has been diagnosed with a incarcerated umbilical hernia status post open repair patient did have a worsening respiratory status requiring intubation on 10/19/2023 patient did have positive sputum culture with Burkholderia cepacia prompting this consultation. On today's evaluation that is 10/27/2023 patient did have a low-grade fever 100.7 this morning patient is requiring pressor support and apparently requiring more per the nursing staff patient remains to be debated on the vent FiO2 is currently stable at 30% and no significant purulent secretion the ET or any other changes reported by the nursing staff. Patient white count is 14.2 creatinine is 1.47 Objective - Vital Signs Vital signs: Vital Signs Temp 100.9 F H 10/27/23 12:00 Pulse 108 H 10/27/23 14:00 Resp 20 10/27/23 14:00 BP 122/57 10/27/23 14:00 Pulse Ox 100 10/27/23 14:00 FiO2 30 10/27/23 12:00 Intake & Output 10/26/23 10/27/23 10/27/23 18:59 06:59 18:59 Intake Total 1318.148 924.504 870.492 Output Total 5815 650 440 Balance -4496.852 274.504 430.492 Weight 88.3 kg 82.2 kg 82.2 kg Intake: IV 556 256 164 Albumin Human 25% 50 ml 100 In Empty Bag 1 bag @ 50 mls/hr IVPB ONCE ONE Rx#: [id number] Lactated Ringers 1,000 ml 220 120 40 @ 20 mls/hr IV .Q24H [facility] Rx#:[id number] Meropenem 1 gm In Sodium 100 100 Chloride 0.9% 100 ml @ 33 .3 mls/hr IVPB Q8HR [facility] Rx#:[id number] Piperacillin-Tazobactam 3 200 .375 gm In Sodium Chloride 0.9% 100 ml @ 25 mls/hr IVPB Q8H [facility] Rx#: [id number] Pressure Bag 36 36 24 Intake, IV Titration 192.148 98.504 276.492 Amount Norepinephrine 4 mg In 192.148 98.504 276.492 Sodium Chloride 0.9% 250 ml @ 0.03 MCG/KG/MIN 9. 201 mls/hr IV .Q24H [facility] Rx#:[id number] Tube Feeding 320 510 370 Other 250 60 60 Output: Drainage 10 Lower Abdomen 10 Urine 605 650 390 Stool 50 Other 5200 Other: Voiding Method Indwelling Catheter Indwelling Catheter Indwelling Catheter ABP, PAP, CO, CI - Last Documented Arterial Blood Pressure 99/43 - Exam GENERAL DESCRIPTION: Middle-age male intubated on the vent RESPIRATORY SYSTEM: Unlabored breathing , decreased breath sounds at bases HEART: S1 S2 regular rate and rhythm , ABDOMEN: Soft , no tenderness EXTREMITIES: No edema feet - Labs CBC & Chem 7: 10/27/23 03:55 10/27/23 09:15 Labs: Abnormal Lab Results - Last 24 Hours (Table) 10/26/23 10/26/23 10/26/23 Range/Units 11:00 18:20 18:23 WBC (3.8-10.6) k/uL RBC (4.30-5.90) m/uL Hgb (13.0-17.5) gm/dL Hct (39.0-53.0) % RDW (11.5-15.5) % Plt Count (150-450) k/uL Neutrophils # (1.3-7.7) k/uL ABG pH (7.35-7.45) ABG pCO2 (35-45) mmHg ABG HCO3 (21-25) mmol/L ABG Total CO2 (19-24) mmol/L ABG O2 Saturation (94-97) % Potassium (3.5-5.1) mmol/L Chloride (98-107) mmol/L BUN (9-20) mg/dL Creatinine (0.66-1.25) mg/dL Glucose (74-99) mg/dL POC Glucose (mg/dL) 151 H (70-110) mg/dL Calcium (8.4-10.2) mg/dL Magnesium (1.6-2.3) mg/dL Ammonia 61 H (<30) umol/L Fluid Appearance Hazy A (Clear) 10/27/23 10/27/23 10/27/23 Range/Units 00:16 03:55 03:55 WBC 14.2 H (3.8-10.6) k/uL RBC 2.79 L (4.30-5.90) m/uL Hgb 7.4 L (13.0-17.5) gm/dL Hct 23.8 L (39.0-53.0) % RDW 20.5 H (11.5-15.5) % Plt Count 100 L (150-450) k/uL Neutrophils # 12.4 H (1.3-7.7) k/uL ABG pH (7.35-7.45) ABG pCO2 (35-45) mmHg ABG HCO3 (21-25) mmol/L ABG Total CO2 (19-24) mmol/L ABG O2 Saturation (94-97) % Potassium 3.4 L (3.5-5.1) mmol/L Chloride 113 H (98-107) mmol/L BUN 73 H (9-20) mg/dL Creatinine 1.47 H (0.66-1.25) mg/dL Glucose 135 H (74-99) mg/dL POC Glucose (mg/dL) 133 H (70-110) mg/dL Calcium 7.9 L (8.4-10.2) mg/dL Magnesium (1.6-2.3) mg/dL Ammonia (<30) umol/L Fluid Appearance (Clear) 10/27/23 10/27/23 10/27/23 Range/Units 03:55 05:01 05:26 WBC (3.8-10.6) k/uL RBC (4.30-5.90) m/uL Hgb (13.0-17.5) gm/dL Hct (39.0-53.0) % RDW (11.5-15.5) % Plt Count (150-450) k/uL Neutrophils # (1.3-7.7) k/uL ABG pH 7.53 H (7.35-7.45) ABG pCO2 31 L (35-45) mmHg ABG HCO3 26 H (21-25) mmol/L ABG Total CO2 27 H (19-24) mmol/L ABG O2 Saturation 97.6 H (94-97) % Potassium (3.5-5.1) mmol/L Chloride (98-107) mmol/L BUN (9-20) mg/dL Creatinine (0.66-1.25) mg/dL Glucose (74-99) mg/dL POC Glucose (mg/dL) 153 H (70-110) mg/dL Calcium (8.4-10.2) mg/dL Magnesium (1.6-2.3) mg/dL Ammonia 48 H (<30) umol/L Fluid Appearance (Clear) 10/27/23 10/27/23 Range/Units 09:15 12:06 WBC (3.8-10.6) k/uL RBC (4.30-5.90) m/uL Hgb (13.0-17.5) gm/dL Hct (39.0-53.0) % RDW (11.5-15.5) % Plt Count (150-450) k/uL Neutrophils # (1.3-7.7) k/uL ABG pH (7.35-7.45) ABG pCO2 (35-45) mmHg ABG HCO3 (21-25) mmol/L ABG Total CO2 (19-24) mmol/L ABG O2 Saturation (94-97) % Potassium (3.5-5.1) mmol/L Chloride (98-107) mmol/L BUN (9-20) mg/dL Creatinine (0.66-1.25) mg/dL Glucose (74-99) mg/dL POC Glucose (mg/dL) 154 H (70-110) mg/dL Calcium (8.4-10.2) mg/dL Magnesium 3.0 H (1.6-2.3) mg/dL Ammonia (<30) umol/L Fluid Appearance (Clear) Microbiology - Last 24 Hours (Table) 10/26/23 11:00 Gram Stain - Preliminary Paracentesis Fluid Body Fluid Culture - Preliminary 10/24/23 09:00 Gram Stain - Final Sputum Sputum Culture - Final Burkholderia cepacia complex Assessment and Plan (1) Burkholderia cepacia infection Current Visit: Yes Status: Acute Code(s): A49.8 - OTHER BACTERIAL INFECTIONS OF UNSPECIFIED SITE SNOMED Code(s): 890237472 (2) Bilateral pneumonia Current Visit: No Status: Acute Code(s): J18.9 - PNEUMONIA, UNSPECIFIED ORGANISM SNOMED Code(s): 442613397 Plan: 1patient presented to hospital with abdominal pain has been diagnosed with incarcerated abdominal hernia s/p open repair and the patient subsequently did have worsening of his respiratory status and mentation requiring intubation now 10/19/2023 now with hypotension elevated white count sputum culture positive for Burkholderia cepacia complex chest x-ray with bilateral basilar infiltrate concerning for nosocomial gram-negative pneumonia 2-patient to continue with meropenem 1 g every 8 hours started yesterday did have a low-grade fever repeat blood culture Dictation was produced using [employer] dictation software. please excuse any grammatical, word or spelling errors. Time with Patient: Less than 30
--- NOTE | 2023-10-27 15:16 | P.PN ---
Subjective Progress Note Date: 10/27/23 Principal diagnosis: Incarcerated umbilical hernia Patient remains on the ventilator. Seems a bit more alert than he had been previously. Tolerating tube feeds at 60 cc/h. Low-grade fever. Labs noted. Paracentesis performed 5 L removed. Objective - Vital Signs Vital signs: Vital Signs Temp 100.9 F H 10/27/23 12:00 Pulse 108 H 10/27/23 14:00 Resp 20 10/27/23 14:00 BP 122/57 10/27/23 14:00 Pulse Ox 100 10/27/23 14:00 FiO2 30 10/27/23 12:00 Intake & Output 10/26/23 10/27/23 10/27/23 18:59 06:59 18:59 Intake Total 1318.148 924.504 893.492 Output Total 5815 650 490 Balance -4496.852 274.504 403.492 Weight 88.3 kg 82.2 kg 82.2 kg Intake: IV 556 256 187 Albumin Human 25% 50 ml 100 In Empty Bag 1 bag @ 50 mls/hr IVPB ONCE ONE Rx#: [id number] Lactated Ringers 1,000 ml 220 120 60 @ 20 mls/hr IV .Q24H [facility] Rx#:[id number] Meropenem 1 gm In Sodium 100 100 Chloride 0.9% 100 ml @ 33 .3 mls/hr IVPB Q8HR [facility] Rx#:[id number] Piperacillin-Tazobactam 3 200 .375 gm In Sodium Chloride 0.9% 100 ml @ 25 mls/hr IVPB Q8H [facility] Rx#: [id number] Pressure Bag 36 36 27 Intake, IV Titration 192.148 98.504 276.492 Amount Norepinephrine 4 mg In 192.148 98.504 276.492 Sodium Chloride 0.9% 250 ml @ 0.03 MCG/KG/MIN 9. 201 mls/hr IV .Q24H [facility] Rx#:[id number] Tube Feeding 320 510 370 Other 250 60 60 Output: Drainage 10 Lower Abdomen 10 Urine 605 650 440 Stool 50 Other 5200 Other: Voiding Method Indwelling Catheter Indwelling Catheter Indwelling Catheter ABP, PAP, CO, CI - Last Documented Arterial Blood Pressure 99/43 - Exam Abdomen: Soft, distention present but less than yesterday, mild tenderness, incision clean and dry - Labs CBC & Chem 7: 10/27/23 03:55 10/27/23 09:15 Labs: Abnormal Lab Results - Last 24 Hours (Table) 10/26/23 10/26/23 10/26/23 Range/Units 11:00 18:20 18:23 WBC (3.8-10.6) k/uL RBC (4.30-5.90) m/uL Hgb (13.0-17.5) gm/dL Hct (39.0-53.0) % RDW (11.5-15.5) % Plt Count (150-450) k/uL Neutrophils # (1.3-7.7) k/uL ABG pH (7.35-7.45) ABG pCO2 (35-45) mmHg ABG HCO3 (21-25) mmol/L ABG Total CO2 (19-24) mmol/L ABG O2 Saturation (94-97) % Potassium (3.5-5.1) mmol/L Chloride (98-107) mmol/L BUN (9-20) mg/dL Creatinine (0.66-1.25) mg/dL Glucose (74-99) mg/dL POC Glucose (mg/dL) 151 H (70-110) mg/dL Calcium (8.4-10.2) mg/dL Magnesium (1.6-2.3) mg/dL Ammonia 61 H (<30) umol/L Fluid Appearance Hazy A (Clear) 10/27/23 10/27/23 10/27/23 Range/Units 00:16 03:55 03:55 WBC 14.2 H (3.8-10.6) k/uL RBC 2.79 L (4.30-5.90) m/uL Hgb 7.4 L (13.0-17.5) gm/dL Hct 23.8 L (39.0-53.0) % RDW 20.5 H (11.5-15.5) % Plt Count 100 L (150-450) k/uL Neutrophils # 12.4 H (1.3-7.7) k/uL ABG pH (7.35-7.45) ABG pCO2 (35-45) mmHg ABG HCO3 (21-25) mmol/L ABG Total CO2 (19-24) mmol/L ABG O2 Saturation (94-97) % Potassium 3.4 L (3.5-5.1) mmol/L Chloride 113 H (98-107) mmol/L BUN 73 H (9-20) mg/dL Creatinine 1.47 H (0.66-1.25) mg/dL Glucose 135 H (74-99) mg/dL POC Glucose (mg/dL) 133 H (70-110) mg/dL Calcium 7.9 L (8.4-10.2) mg/dL Magnesium (1.6-2.3) mg/dL Ammonia (<30) umol/L Fluid Appearance (Clear) 10/27/23 10/27/23 10/27/23 Range/Units 03:55 05:01 05:26 WBC (3.8-10.6) k/uL RBC (4.30-5.90) m/uL Hgb (13.0-17.5) gm/dL Hct (39.0-53.0) % RDW (11.5-15.5) % Plt Count (150-450) k/uL Neutrophils # (1.3-7.7) k/uL ABG pH 7.53 H (7.35-7.45) ABG pCO2 31 L (35-45) mmHg ABG HCO3 26 H (21-25) mmol/L ABG Total CO2 27 H (19-24) mmol/L ABG O2 Saturation 97.6 H (94-97) % Potassium (3.5-5.1) mmol/L Chloride (98-107) mmol/L BUN (9-20) mg/dL Creatinine (0.66-1.25) mg/dL Glucose (74-99) mg/dL POC Glucose (mg/dL) 153 H (70-110) mg/dL Calcium (8.4-10.2) mg/dL Magnesium (1.6-2.3) mg/dL Ammonia 48 H (<30) umol/L Fluid Appearance (Clear) 10/27/23 10/27/23 Range/Units 09:15 12:06 WBC (3.8-10.6) k/uL RBC (4.30-5.90) m/uL Hgb (13.0-17.5) gm/dL Hct (39.0-53.0) % RDW (11.5-15.5) % Plt Count (150-450) k/uL Neutrophils # (1.3-7.7) k/uL ABG pH (7.35-7.45) ABG pCO2 (35-45) mmHg ABG HCO3 (21-25) mmol/L ABG Total CO2 (19-24) mmol/L ABG O2 Saturation (94-97) % Potassium (3.5-5.1) mmol/L Chloride (98-107) mmol/L BUN (9-20) mg/dL Creatinine (0.66-1.25) mg/dL Glucose (74-99) mg/dL POC Glucose (mg/dL) 154 H (70-110) mg/dL Calcium (8.4-10.2) mg/dL Magnesium 3.0 H (1.6-2.3) mg/dL Ammonia (<30) umol/L Fluid Appearance (Clear) Microbiology - Last 24 Hours (Table) 10/26/23 11:00 Gram Stain - Preliminary Paracentesis Fluid Body Fluid Culture - Preliminary 10/24/23 09:00 Gram Stain - Final Sputum Sputum Culture - Final Burkholderia cepacia complex Assessment and Plan (1) Incarcerated umbilical hernia Narrative/Plan: Patient doing better today. Continue lactulose for elevated ammonia level, continue antibiotics. Continue tube feeds at goal. Current Visit: Yes Status: Acute Code(s): K42.0 - UMBILICAL HERNIA WITH OBSTRUCTION, WITHOUT GANGRENE SNOMED Code(s): 718876632
[2023-10-27 16:47] LABS: Glucose,Whole Blood 173 mg/dL (70-110)
[2023-10-27 20:57] LABS: ABG Base Excess 4.3 mmol/L; ABG HCO3 26 mmol/L (21-25); ABG PCO2 24 mmHg (35-45); ABG PO2 93 mmHg (83-108); ABG TCO2 26 mmol/L (19-24); Allen Test Performed? Yes
[2023-10-27 21:04] LABS: ABG PH 7.63 (7.35-7.45)
[2023-10-27 23:34] LABS: Glucose,Whole Blood 148 mg/dL (70-110)
[2023-10-28 04:57] LABS: Anisocytosis Moderate; Basophils # (A) 0.1 k/uL (0-0.2); Basophils % (A) 0 %; Eosinophils # (A) 0.2 k/uL (0-0.7); Eosinophils % (A) 1 %; HCT 23.1 % (39.0-53.0); Hypochromasia Marked; Lymphocytes # (A) 1.2 k/uL (1.0-4.8); Lymphocytes % (A) 8 %; MCH 26.5 pg (25.0-35.0); MCHC 30.4 g/dL (31.0-37.0); MCV 87.1 fL (80.0-100.0); Mean Platelet Volume 9.1; Monocytes # (A) 0.6 k/uL (0-1.0); Monocytes % (A) 3 %; Neutrophils # (A) 13.7 k/uL (1.3-7.7); Neutrophils % (A) 85 %; Platelet Count 115 k/uL (150-450); RBC 2.66 m/uL (4.30-5.90); RDW 21.7 % (11.5-15.5); WBC 16.1 k/uL (3.8-10.6)
[2023-10-28 05:05] LABS: African American GFR (CKD) 76 (>60 ml/min/1.73 sqM); Anion Gap 6 mmol/L; Blood Urea Nitrogen 73 mg/dL (9-20); Calcium 7.7 mg/dL (8.4-10.2); Carbon Dioxide 27 mmol/L (22-30); Chloride 118 mmol/L (98-107); Glucose 129 mg/dL (74-99); Non-African American GFR(CKD) 66 (>60 ml/min/1.73 sqM); Potassium 3.7 mmol/L (3.5-5.1); Sodium 151 mmol/L (137-145)
[2023-10-28] MEDS: POTASSIUM CHLORIDE ER 20 MEQ TAB.ER PO SCH (06:04)
[2023-10-28] MEDS: IPRATROPIUM-ALBUTEROL 3 ML NEB INHALATION SCH (10:13)
--- NOTE | 2023-10-28 10:20 | P.PN ---
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 He presented to the emergency department on 10/16/23 with a chief complaint of intractable abdominal pain and reports umbilical hernia is now nonreducible. Vital signs upon arrival showed BP 115/69, HR 76, RR 18, T 97.8 F, and SpO2 100% on RA. EKG showed normal sinus rhythm at 63 bpm with no noted T wave or ST abnormalities. CBC showing bicytopenia with Hg 7.9 and Plt 98. Coagulation profile showed PT of 14.7 and INR 1.4. BMP showing Na 133, Cl 110, bicarb of 13, and anion gap of 10, BUN of 35, creatinine 1.65, GFR 51. Blood glucose was 119. Lactic acid was 1.8. Liver profile was unremarkable. Patient was evaluated by general surgeon, he is being admitted to general surgery team with plans to be taken to the OR for open surgical repair of incarcerated umbilical hernia. We were consulted for preoperative medical clearance and p ostoperative medical management. Patient underwent open repair of incarcerated umbilical hernia with umbillectomy on 10/[address] Hair. Renal function continued to worsen. Also noted to be more acidotic. Patient was started on albumin and octreotide. Midodrine was increased and Nephrology was consulted. Patient was started on bicarb drip. Renal function improving. Patient became encephalopathic on 10/18, started on rectal lactulose and transferred to medical ICU. His mentation continued to worsen, and he was intubated on 10/18. Started on Rocephin for concerns of SBP on 10/18. He has required Levophed since being intubated which is being slowly titrated down. CXR showing signs of right sided PNA, pro-mony elevated at 3.62, Rocephin switched to Zosyn on 10/21. Generalized tremors noted on 10/19, CT brain was negative for acute pathology and EEG showed moderate to severe background slowing. Started on Fentanyl drip (10/21-10/22) which improved his tremors, likely related to pain. There was concern for GI bleed as well. Hg downtrending to 6.6 on 10/21 requiring 1 unit PRBC. Extubated, in bed, lethargic but does not appear to be in distress, on room air. No reported vomiting or diarrhea. Objective - Vital Signs Vital signs: Vital Signs Temp 98.2 F 10/28/23 08:00 Pulse 86 10/28/23 10:00 Resp 14 10/28/23 10:00 BP 112/63 10/28/23 07:00 Pulse Ox 97 10/28/23 10:00 FiO2 2 10/28/23 00:00 Intake & Output 10/27/23 10/28/23 10/28/23 18:59 06:59 18:59 Intake Total 3949.617 9359.551 173.165 Output Total 1050 1115 950 Balance 221.048 -16.449 -776.835 Weight 82.2 kg 84.4 kg Intake: IV 336 376 129 Lactated Ringers 1,000 ml 100 240 20 @ 20 mls/hr IV .Q24H [facility] Rx#:[id number] Meropenem 1 gm In Sodium 200 100 100 Chloride 0.9% 100 ml @ 33 .3 mls/hr IVPB Q8HR [facility] Rx#:[id number] Pressure Bag 36 36 9 Intake, IV Titration 295.048 512.551 44.165 Amount Norepinephrine 4 mg In 295.048 512.551 44.165 Sodium Chloride 0.9% 250 ml @ 0.03 MCG/KG/MIN 9. 201 mls/hr IV .Q24H [facility] Rx#:[id number] Tube Feeding 550 180 Other 90 30 Output: Drainage 10 Lower Abdomen 10 Urine 590 965 200 Stool 450 150 750 Other: Voiding Method Indwelling Catheter Indwelling Catheter Indwelling Catheter ABP, PAP, CO, CI - Last Documented Arterial Blood Pressure 115/48 - Exam General: Lethargic, does not appear to be in distress Derm: Warm, dry, jaundice Head: Atraumatic, normocephalic, symmetric Eyes: Scleral icterus, pupils equal and reactive Mouth: No lip lesion, mucus membranes moist Cardiovascular: S1S2 reg, no murmur Lungs: Coarse BS bilateral, no rhonchi, no rales, no accessory muscle use, intubated Abdominal: Distended, nontender to palpation, no guarding, no appreciable organomegaly, midline dressing clean, dry, intact, + Epps Ext: Gross muscle atrophy Neuro: Awake alert oriented 3 - Labs CBC & Chem 7: 10/28/23 04:30 10/28/23 04:30 Labs: Abnormal Lab Results - Last 24 Hours (Table) 10/27/23 10/27/23 10/27/23 Range/Units 09:15 12:06 16:45 WBC (3.8-10.6) k/uL RBC (4.30-5.90) m/uL Hgb (13.0-17.5) gm/dL Hct (39.0-53.0) % MCHC (31.0-37.0) g/dL RDW (11.5-15.5) % Plt Count (150-450) k/uL Neutrophils # (1.3-7.7) k/uL ABG pH (7.35-7.45) ABG pCO2 (35-45) mmHg ABG HCO3 (21-25) mmol/L ABG Total CO2 (19-24) mmol/L ABG O2 Saturation (94-97) % Sodium (137-145) mmol/L Chloride (98-107) mmol/L BUN (9-20) mg/dL Creatinine (0.66-1.25) mg/dL Glucose (74-99) mg/dL POC Glucose (mg/dL) 154 H 173 H (70-110) mg/dL Calcium (8.4-10.2) mg/dL Magnesium 3.0 H (1.6-2.3) mg/dL 10/27/23 10/27/23 10/28/23 Range/Units 20:55 23:32 04:30 WBC 16.1 H (3.8-10.6) k/uL RBC 2.66 L (4.30-5.90) m/uL Hgb 7.0 L (13.0-17.5) gm/dL Hct 23.1 L (39.0-53.0) % MCHC 30.4 L (31.0-37.0) g/dL RDW 21.7 H (11.5-15.5) % Plt Count 115 L (150-450) k/uL Neutrophils # 13.7 H (1.3-7.7) k/uL ABG pH 7.63 H* (7.35-7.45) ABG pCO2 24 L (35-45) mmHg ABG HCO3 26 H (21-25) mmol/L ABG Total CO2 26 H (19-24) mmol/L ABG O2 Saturation 99.0 H (94-97) % Sodium (137-145) mmol/L Chloride (98-107) mmol/L BUN (9-20) mg/dL Creatinine (0.66-1.25) mg/dL Glucose (74-99) mg/dL POC Glucose (mg/dL) 148 H (70-110) mg/dL Calcium (8.4-10.2) mg/dL Magnesium (1.6-2.3) mg/dL 10/28/23 Range/Units 04:30 WBC (3.8-10.6) k/uL RBC (4.30-5.90) m/uL Hgb (13.0-17.5) gm/dL Hct (39.0-53.0) % MCHC (31.0-37.0) g/dL RDW (11.5-15.5) % Plt Count (150-450) k/uL Neutrophils # (1.3-7.7) k/uL ABG pH (7.35-7.45) ABG pCO2 (35-45) mmHg ABG HCO3 (21-25) mmol/L ABG Total CO2 (19-24) mmol/L ABG O2 Saturation (94-97) % Sodium 151 H (137-145) mmol/L Chloride 118 H (98-107) mmol/L BUN 73 H (9-20) mg/dL Creatinine 1.33 H (0.66-1.25) mg/dL Glucose 129 H (74-99) mg/dL POC Glucose (mg/dL) (70-110) mg/dL Calcium 7.7 L (8.4-10.2) mg/dL Magnesium (1.6-2.3) mg/dL Microbiology - Last 24 Hours (Table) 10/26/23 11:00 Gram Stain - Preliminary Paracentesis Fluid Body Fluid Culture - Preliminary 10/24/23 09:00 Gram Stain - Final Sputum Sputum Culture - Final Burkholderia cepacia complex Assessment and Plan Plan: Ventilator dependent respiratory failure: Extubated, Septic shock likely secondary to below: Antibiotics as below. BCx, Sputum Cx (10/18) and Paracentesis Cx (10/15) negative. Titrate Levophed to MAP > 65. Telemetry monitoring.Continue [id number]. Ventilator Associated Pneumonia: Started on Zosyn 10/21 should cover for both SBP and pseudomonas. Pro-mony elevated. Sputum Cx collected 10/23 shows few PMN, rare gram negative bacilli.Pulmonary critical care following Suspected spontaneous bacterial peritonitis: Ascitic fluid culture negative. BCx negative. Sputum Cx negative. Rocephin switched to Zosyn 3.375g IV TID (D5). Acute hepatic encephalopathy: Lactulose 20g PO TID. Fecal management system in place. Acute GI bleed: 1 unit PRBC 10/21. Surgery on board recommending continued monitoring. Protonix 40 mg IV QD. Transfuse if Hg < 7.Hemoglobin 7 IVAN, secondary to suspected hepatorenal syndrome, history of CKD stage III: Nephrology recommends continuing LR, midodrine and Sandostatin along with albumin.Creatinine stable at 1.3. Tremors: Likely pain related. CT brain negative. EEG mod-severe encaphalopathy. Improved with Fentanyl. History of advanced liver cirrhosis: Continue Albumin 12.5g IV QD, Midodrine 15 mg PO TID, Octreotide 100mcg subQ TID. Bicytopenia secondary to liver cirrhosis, monitor Elevated INR Incarcerated/strangulated umbilical hernia status post open repair: Management per general surgery Resolved: Metabolic and lactic acidosis Disposition: Remains in ICU.Possible transfer to medical floor soon.
[2023-10-28] MEDS: DEXTROSE 5% IN WATER 1,000 ML IV SCH (11:18)
[2023-10-28] MEDS: ALBUMIN HUMAN 25% 50 ML in EMPTY BAG 1 BAG IVPB ONE ×2 (11:30→12:08)
[2023-10-28 11:41] LABS: Glucose,Whole Blood 156 mg/dL (70-110)
--- NOTE | 2023-10-28 11:42 | P.PN ---
Subjective Patient is seen in follow-up for acute kidney injury. Renal function better. Underwent paracentesis October 26, 2023 with 5 L drained. Off Levophed. Extubated. Sodium level 151. Did start drinking water today. Vital signs are stable. General: Resting in bed. HEENT: On nasal cannula. LUNGS: Scattered rhonchi. HEART: Rate and Rhythm are regular. ABDOMEN: Distention noted. EXTREMITITES: No edema. Objective - Vital Signs Vital signs: Vital Signs Temp 98.2 F 10/28/23 08:00 Pulse 93 10/28/23 11:15 Resp 18 10/28/23 11:15 BP 112/63 10/28/23 07:00 Pulse Ox 96 10/28/23 11:15 FiO2 2 10/28/23 00:00 Intake & Output 10/27/23 10/28/23 10/28/23 18:59 06:59 18:59 Intake Total 8750.054 2181.551 236.165 Output Total 1050 1115 1025 Balance 221.048 -16.449 -788.835 Weight 82.2 kg 84.4 kg Intake: IV 336 376 192 Lactated Ringers 1,000 ml 100 240 80 @ 20 mls/hr IV .Q24H [facility] Rx#:[id number] Meropenem 1 gm In Sodium 200 100 100 Chloride 0.9% 100 ml @ 33 .3 mls/hr IVPB Q8HR [facility] Rx#:[id number] Pressure Bag 36 36 12 Intake, IV Titration 295.048 512.551 44.165 Amount Norepinephrine 4 mg In 295.048 512.551 44.165 Sodium Chloride 0.9% 250 ml @ 0.03 MCG/KG/MIN 9. 201 mls/hr IV .Q24H [facility] Rx#:[id number] Tube Feeding 550 180 Other 90 30 Output: Drainage 10 Lower Abdomen 10 Urine 590 965 275 Stool 450 150 750 Other: Voiding Method Indwelling Catheter Indwelling Catheter Indwelling Catheter ABP, PAP, CO, CI - Last Documented Arterial Blood Pressure 106/46 - Labs CBC & Chem 7: 10/28/23 04:30 10/28/23 04:30 Labs: Abnormal Lab Results - Last 24 Hours (Table) 10/27/23 10/27/23 10/27/23 Range/Units 12:06 16:45 20:55 WBC (3.8-10.6) k/uL RBC (4.30-5.90) m/uL Hgb (13.0-17.5) gm/dL Hct (39.0-53.0) % MCHC (31.0-37.0) g/dL RDW (11.5-15.5) % Plt Count (150-450) k/uL Neutrophils # (1.3-7.7) k/uL ABG pH 7.63 H* (7.35-7.45) ABG pCO2 24 L (35-45) mmHg ABG HCO3 26 H (21-25) mmol/L ABG Total CO2 26 H (19-24) mmol/L ABG O2 Saturation 99.0 H (94-97) % Sodium (137-145) mmol/L Chloride (98-107) mmol/L BUN (9-20) mg/dL Creatinine (0.66-1.25) mg/dL Glucose (74-99) mg/dL POC Glucose (mg/dL) 154 H 173 H (70-110) mg/dL Calcium (8.4-10.2) mg/dL 10/27/23 10/28/23 10/28/23 Range/Units 23:32 04:30 04:30 WBC 16.1 H (3.8-10.6) k/uL RBC 2.66 L (4.30-5.90) m/uL Hgb 7.0 L (13.0-17.5) gm/dL Hct 23.1 L (39.0-53.0) % MCHC 30.4 L (31.0-37.0) g/dL RDW 21.7 H (11.5-15.5) % Plt Count 115 L (150-450) k/uL Neutrophils # 13.7 H (1.3-7.7) k/uL ABG pH (7.35-7.45) ABG pCO2 (35-45) mmHg ABG HCO3 (21-25) mmol/L ABG Total CO2 (19-24) mmol/L ABG O2 Saturation (94-97) % Sodium 151 H (137-145) mmol/L Chloride 118 H (98-107) mmol/L BUN 73 H (9-20) mg/dL Creatinine 1.33 H (0.66-1.25) mg/dL Glucose 129 H (74-99) mg/dL POC Glucose (mg/dL) 148 H (70-110) mg/dL Calcium 7.7 L (8.4-10.2) mg/dL Microbiology - Last 24 Hours (Table) 10/26/23 11:00 Gram Stain - Preliminary Paracentesis Fluid Body Fluid Culture - Preliminary 10/24/23 09:00 Gram Stain - Final Sputum Sputum Culture - Final Burkholderia cepacia complex Assessment and Plan Plan: Assessment: 1. Acute kidney injury secondary to ATN secondary to hypotension. No evidence of hydronephrosis noted on CAT scan done September 04, 2023. Creatinine peaked at 3.0 this admission -1.33 today. 2. Alcohol induced liver cirrhosis. 3. Metabolic acidosis secondary to acute kidney injury. Improved. 4. Status post open repair of incarcerated umbilical hernia and embolectomy on October 16, 2023. 5. Hepatic encephalopathy. 6. Acute hypoxic respiratory failure. Extubated October 27, 2023. 7. Ascites status post paracentesis October 26, 2023 with 5 L drained. 8. Hypokalemia from poor intake and diuresis. Being replaced. 9. Hypernatremia from lack of oral water intake and free water diuresis. Plan: Encouraged oral intake, including free water. Start D5W at 60 cc an hour. Repeat sodium level this afternoon. Maintain midodrine. Avoid nephrotoxins. Continue to monitor renal function and urine output. Maintain Aldactone.
--- NOTE | 2023-10-28 13:40 | P.PN ---
Subjective Progress Note Date: 10/28/23 Pulmonary consult dated October 19, 2023. 44-year-old male who presented to the emergency department, on October 15, complaining of abdominal pain. The patient has a history of chronic liver disease from alcohol abuse, with cirrhosis and ascites, and need for periodic paracentesis abdominis. The patient has a known history of a umbilical hernia, which she is able to typically reduce, but because he was not able to reduce it, he came in to be evaluated. The patient ended up having surgery, last Thursday, on the , and initially was doing okay. This morning I was called by the surgeon, and my charge nurse in the intensive care unit, to say that the patient was doing poorly, and should be transferred down to the intensive care unit for further monitoring and management. The patient was very lethargic, and looked very unstable, with impending respiratory failure. When I first saw the patient he was on room air, and receiving an IV with 3 ampoules of sodium bicarb in D5W at 80 cc an hour. I asked for stat blood gas, when the patient came to the intensive care unit. His pO2 was 40, pCO2 27, pH is 7.41. After evaluating the patient, I decided to intubate the patient which we did, and place a central line and arterial line, both of which we did. Current laboratory data includes a blood gas showing a pO2 of 393, pCO2 41, pH is 7.26. Saturations are 100%. White count is 18.9, hemoglobin 8.3, hematocrit 26.3, and a platelet count of 156,000. Sodium 137, potassium 4.5, chlorides 106, CO2 14, anion gap 17, BUN 69.6, and creatinine 3. Glucose was 126. Lactic acid was 2.8. Bilirubin was 1.5. Ammonia level was up to 259. Cultures of the ascitic fluid are thus far negative. Chest x-ray shows endotracheal tube to be in good position. Central line is in good position, without complication. Progress note dated October 20, 2023. The patient is seen today in room 263. The patient was intubated, and lined yesterday, for respiratory failure. The patient has a history of chronic liver disease, with cirrhosis, ascites, and encephalopathy. Currently, the patient is on volume assist-control, rate 20, tidal volume 400, FiO2 40%, PEEP of 5. Blood gases show pO2 108, pCO2 28, pH is 7.46. This blood gases consistent with a mild respiratory alkalosis. The patient is getting D5W with 3 ampoules of sodium bicarbonate at 80 cc an hour. The patient is getting norepinephrine at 3 mcg/min, propofol at 50 mcg/kg/min. The patient has been having tremor-like activity, and could be seizing. The brain CT was negative. The patient will have tube feedings beginning today. We have ordered an EEG. In addition, I have asked the nurse to give the patient 2 mg of Ativan, to see if the tremors cease. White count is 13, hemoglobin 7, hematocrit 23, platelet count 106,000. Sodium 138, potassium 3.5, chlorides 111, CO2 17, anion gap 10, BUN 63, creatinine 2.27. Glucose is 160. Ammonia level is down to 49. Albumin is 3.1. Thus far, cultures are negative. The patient's chest x-ray shows the endotracheal tube to be high in the trachea, and have asked respiratory therapy to push it down to 1.5 cm. Progress note dated October 21, 2023. The patient is seen today in room 263. He remains on mechanical ventilator. He is on volume assist-control, rate 20, tidal volume 400, FiO2 40%, PEEP of 5. Blood gases show pO2 of 64, pCO2 37, pH is 7.47. The patient is getting propo fol at 50 mcg/kg/min, D5W with 3 ampoules of bicarbonate at 80 cc an hour, fentanyl drip at 1 mcg/kg/h, vital AF at 29 cc an hour, with a goal of 43 cc an hour. The patient also continues on Rocephin. White count is 10.3, hemoglobin 7, hematocrit 22.8, and platelet count 109,000. Sodium 137, potassium 3.7, chlorides 104, CO2 24, BUN 54, and creatinine 1.76. Glucose is 116. Ammonia level is 56. Calcium is 7.7. Cultures are thus far negative. Chest x-ray is unchanged. There is a small left pleural effusion. NG tube, endotracheal tube, and central venous catheter, are in appropriate positions. Progress note dated October 22, 2023. 43-year-old male seen again in the intensive care unit, room 263. He remains on the mechanical ventilator. The patient's ventilator settings include volume assist-control, rate 20, tidal volume 400, FiO2 40%, PEEP of 5. Blood gases show pO2 68, pCO2 45, pH is 7.41. The patient is on norepinephrine at 9 mcg/min, propofol at 50 mcg/kg/min, lactated Ringer's at 75 cc an hour, and fentanyl at 1 mcg/kg/h. The patient is getting tube feedings with vital AF at 43 cc an hour, which is goal. Microbiologic studies are thus far negative. The patient is on Rocephin. He has received 1 unit of packed red blood cells. Current labs include a white count 10.5, hemoglobin 6.6, hematocrit 22.2, and a platelet count of 97,000. Sodium 138, potassium 3.4, chlorides 106, CO2 26, BUN 53, creatinine 1.78. Glucose is 140. Albumin is 2.8. Total bilirubin is 1.4. Chest x-ray shows air space opacities, in the lung bases, which have worsened. Lines and tubes are in good placement. Note dated October 23, 2023. 43-year-old male seen again in room 263. He remains on mechanical ventilator. Vent settings include volume assist-control, rate 20, tidal volume 400, FiO2 40%, PEEP of 5. Blood gases show pO2 87, pCO2 44, pH is 7.40. The patient is getting lactated Ringer's at 75 cc an hour, propofol at 45 mcg/kg/min, norepinephrine at 7.7 mcg/min, and saline at 10 cc an hour. The patient is also getting vital AF, at 10 cc an hour. He continues on Zosyn. We will check a procalcitonin level. The patient will have a daily interruption of sedation, without a spontaneous breathing trial today. Current labs include a white count of 12.7, hemoglobin 7.8, hematocrit 26, platelet count 75,000. Sodium 138, potassium 4.1, chlorides 105, CO2 26, BUN 47, creatinine 1.35. Glucose is 141. Albumin is 3.1. Cultures thus far negative including blood and sputum. Chest x-ray shows the OG tube, to remain in satisfactory position. There is persistent bibasilar infiltrates and/or atelectasis. Progress note dated October 24, 2023. 43-year-old male seen again in room 263. The patient remains on the mechanical ventilator. He is on volume assist-control, rate 20, tidal volume 400, FiO2 30%, PEEP of 5. Blood gases show pO2 69, pCO2 39, and pH is 7.44. The patient remains on propofol at 20 mcg/kg/min, norepinephrine at 2.4 mcg/min, lactated Ringer's at 50 cc an hour, and saline at 10 cc an hour. Patient is getting vital AF at 20, with a goal at 20 cc an hour. The patient continues on Zosyn. His procalcitonin level was 3.62. He will get 1 dose of Lasix 40 mg IV push. His lactated Ringer's IV, will be made KVO. Current labs include a white count of 17.6, hemoglobin 7.4, hematocrit 24.8, and a platelet count of 98,000. Sodium 142, potassium 3.8, chlorides 107, CO2 26, BUN 51, creatinine 1.36. Calcium is 8.2. Albumin is 3.0. Ammonia level was 22. All cultures are thus far negative. Chest x-ray shows small lung volumes, with basilar infiltrates or atelectasis, and small effusions. Progress note dated October 25, 2023. 43-year-old male seen again in room 263. The patient remains on the ventilator. He is on volume assist-control, rate 20, tidal volume 400, FiO2 30%, PEEP of 5. Blood gases show pO2 of 70, pCO2 39, pH is 7.46. The patient getting lactated Ringer's at 20 cc an hour, norepinephrine at 5.6 mcg/min, and vital AF at 20 cc an hour, which is goal. The patient will have a spontaneous breathing trial today, as he has been off of propofol for some time. His cultures are negative. He continues on Zosyn. I am not hopeful that the patient will be extubated today. White count 19.1, hemoglobin 7.3, hematocrit 23.8, platelet count 105,000. Sodium 143, potassium 3.8, chlorides 109, CO2 26, BUN 62, creatinine 1.60. Glucose 131. Albumin 2.8. Calcium 8.1. Cultures are thus far negative. Chest x-ray shows small lung volumes. Endotracheal tube is in appropriate position in the trachea. There is basilar atelectasis, and small bilateral pleural effusions. On today's evaluation of 10/26/2023, the patient remains intubated on mechanical ventilator. As mentioned, the patient is post repair of incarcerated abdominal/umbilical hernia. The patient is known to have liver cirrhosis secondary to alcoholism. The patient has large ascites in addition. The patient has been off Precedex since 10/24/2023. On today's evaluation, he is extremely lethargic. He is following some simple commands. Unable to cough. Unable to raise his arms against gravity. His serum ammonia level has been measured at 61 and the patient continues to be on lactulose. His last bowel movement was 48 hours ago. In terms of his breathing, the patient is on a assist-control mode of mechanical ventilation at rate of 20, tidal volume of 400, FiO2 30% with a PEEP of 5 with a blood gas showing a pH of 7.47 with a pCO2 of 38 and pO2 of 71. The patient remains on low-dose norepinephrine running at 0.02 mcg/kg/min. Lactated Ringer's running at a rate of. Urine output is adequate at 60 cc. Earlier this morning, the patient was taken off the assist- control mode of mechanical ventilation and placed on a pressure support of 7 and a PEEP of 5 and he was able to generate adequate minute ventilation and tidal volume. He has a CHRIS drain and output is minimal and this was serous in nature. The white cell count is 14.7 with a heme of 7.1 and a platelet count of 102. INR is 1.5, sodium is at 144, BUN is 73 with a creatinine of 1.6 and a sodium levels at 144 and a potassium level is at 3.7. The patient is on IV Zosyn as an empiric antibiotic coverage. Based on all this, and based on the large ascitic fluid, I did a bedside paracentesis and the patient had a total of 5 L of ascitic fluid was aspirated and this will be sent for cultures and analysis. His sputum samples from 10/24/2023 is showing Burkholderia chest x-ray reveals smaller lung volumes along with some small bilateral pleural effusions. The patient is on DuoNeb nebulized treatments [id number]. The patient on midodrine 15 mg p.o. 3 times daily. Low-dose norepinephrine. 10/27/2023, patient remains intubated on the mechanical ventilator. Remains encephalopathic despite some improvement in his ammonia level. The patient serum ammonia level is down to 48 and the patient is currently on lactulose and rifaximin. Noted the patient has a fecal management system in place and is producing adequate amount of bowel movement. Grimaces to painful stimulation. Occasionally follows commands. Very much lethargic. Very much weak. Has a weak cough. May not be able to protect his airway postextubation for that reason we kept him on the mechanical ventilator for now. On today's evaluation, he is showing a less distended abdomen as the patient underwent a paracentesis and the ascitic fluid showed no clear indication for an underlying infection. The cell count of mesenteric fluid was 170. Cultures are still pending for now. The patient remains on pressure control mode of mechanical ventilation at the rate of 50, pressure control of 50, expiratory, 0.8, FiO2 of 30% with a PEEP of 5. Blood gas showed a pH of 7.33 with a pCO2 of 31 and a pO2 of 83. The patient remains off sedative medications. His labs from today showed a white c ell count of 14.2 with a hemoglobin of 7.4 and a platelet count of 100. BUN is 73 with a creatinine 1.47 and a sodium noted at 145 with a potassium level is at 3.6. Serum bicarb is at 22. The chest x-ray findings chronic stable bilateral lower lobe pulmonary infiltrates and the patient remains on broad-spectrum antibiotics and the patient remains on IV meropenem. 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 10/28/23 the patient is being seen for a follow-up. Note that the patient was weaned off mechanical ventilator and the patient was extubated yesterday without any major difficulties. The patient is currently on room air oxygen. No significant respiratory distress. He is much more alert and awake. He is following some simple commands. He is stooling excessively in the stool output in the order of 1000 mL over the past 24 hours. He remains on lactulose 20 g 3 times a day. His serum ammonia level has been downtrending and ammonia level is currently down to 48 sodium levels at 151. Potassium is at 3.7, BUN 73 with a creatinine of 1.33. Glucose is 129. Abdomen is again distended and the patient is having significant abdominal discomfort because of ongoing ascites and abdominal distention. The patient was started on D5 water by nephrology and currently D5 water is running at 60 cc an hour. The patient remains on IV meropenem. Patient is on octreotide. Output from the CHRIS drain is minimal. No pressors. Objective - Vital Signs Vital signs: Vital Signs Temp 98.2 F 10/28/23 08:00 Pulse 86 10/28/23 10:00 Resp 14 10/28/23 10:00 BP 112/63 10/28/23 07:00 Pulse Ox 97 10/28/23 10:00 FiO2 2 10/28/23 00:00 Intake & Output 10/27/23 10/28/23 10/28/23 18:59 06:59 18:59 Intake Total 5635.690 6372.551 236.165 Output Total 1050 1115 1025 Balance 221.048 -16.449 -788.835 Weight 82.2 kg 84.4 kg Intake: IV 336 376 192 Lactated Ringers 1,000 ml 100 240 80 @ 20 mls/hr IV .Q24H [facility] Rx#:[id number] Meropenem 1 gm In Sodium 200 100 100 Chloride 0.9% 100 ml @ 33 .3 mls/hr IVPB Q8HR [facility] Rx#:[id number] Pressure Bag 36 36 12 Intake, IV Titration 295.048 512.551 44.165 Amount Norepinephrine 4 mg In 295.048 512.551 44.165 Sodium Chloride 0.9% 250 ml @ 0.03 MCG/KG/MIN 9. 201 mls/hr IV .Q24H [facility] Rx#:[id number] Tube Feeding 550 180 Other 90 30 Output: Drainage 10 Lower Abdomen 10 Urine 590 965 275 Stool 450 150 750 Other: Voiding Method Indwelling Catheter Indwelling Catheter Indwelling Catheter ABP, PAP, CO, CI - Last Documented Arterial Blood Pressure 115/48 - Exam Comment comfortable, quite debilitated and body mass index of 26.4. Emaciated, cachectic looking and the patient is currently extubated on room air oxygen. Head exam was generally normal. There was no scleral icterus or corneal arcus. Mucous membranes were moist. There is obvious temporal wasting. HEENT examination is grossly unremarkable. Mucous membranes are dry. Teeth are in very poor condition Neck supple. Full range of motion. No adenopathy thyromegaly or neck vein distention. Cardiovascular examination reveals regular rhythm rate. S1-S2 normal. No S3 or S4. No discernible murmur noted. Lungs reveal scattered crackles and rhonchi. No wheezes. Breath sounds equal. Abdomen soft, without bowel sounds. No masses. Abdomen is distended and is consistent with underlying ascites. The surgical abdominal wound scar is dry clean and intact. No active drainage. There is a fluid wave and shifting dullness consistent with ascites. Extremities are intact. No cyanosis clubbing or edema. Skin is jaundiced. Neurologic examination arousable when he is communicating and following commands. He has profound weakness in all 4 extremities. - Labs CBC & Chem 7: 10/28/23 04:30 10/28/23 04:30 Labs: Abnormal Lab Results - Last 24 Hours (Table) 10/27/23 10/27/23 10/27/23 Range/Units 12:06 16:45 20:55 WBC (3.8-10.6) k/uL RBC (4.30-5.90) m/uL Hgb (13.0-17.5) gm/dL Hct (39.0-53.0) % MCHC (31.0-37.0) g/dL RDW (11.5-15.5) % Plt Count (150-450) k/uL Neutrophils # (1.3-7.7) k/uL ABG pH 7.63 H* (7.35-7.45) ABG pCO2 24 L (35-45) mmHg ABG HCO3 26 H (21-25) mmol/L ABG Total CO2 26 H (19-24) mmol/L ABG O2 Saturation 99.0 H (94-97) % Sodium (137-145) mmol/L Chloride (98-107) mmol/L BUN (9-20) mg/dL Creatinine (0.66-1.25) mg/dL Glucose (74-99) mg/dL POC Glucose (mg/dL) 154 H 173 H (70-110) mg/dL Calcium (8.4-10.2) mg/dL 10/27/23 10/28/23 10/28/23 Range/Units 23:32 04:30 04:30 WBC 16.1 H (3.8-10.6) k/uL RBC 2.66 L (4.30-5.90) m/uL Hgb 7.0 L (13.0-17.5) gm/dL Hct 23.1 L (39.0-53.0) % MCHC 30.4 L (31.0-37.0) g/dL RDW 21.7 H (11.5-15.5) % Plt Count 115 L (150-450) k/uL Neutrophils # 13.7 H (1.3-7.7) k/uL ABG pH (7.35-7.45) ABG pCO2 (35-45) mmHg ABG HCO3 (21-25) mmol/L ABG Total CO2 (19-24) mmol/L ABG O2 Saturation (94-97) % Sodium 151 H (137-145) mmol/L Chloride 118 H (98-107) mmol/L BUN 73 H (9-20) mg/dL Creatinine 1.33 H (0.66-1.25) mg/dL Glucose 129 H (74-99) mg/dL POC Glucose (mg/dL) 148 H (70-110) mg/dL Calcium 7.7 L (8.4-10.2) mg/dL Microbiology - Last 24 Hours (Table) 10/26/23 11:00 Gram Stain - Preliminary Paracentesis Fluid Body Fluid Culture - Preliminary 10/24/23 09:00 Gram Stain - Final Sputum Sputum Culture - Final Burkholderia cepacia complex Assessment and Plan Plan: Incarcerated umbilical hernia status postsurgical repair and the patient is postop day # 1 12. Output from CHRIS drain is minimal and the surgical site is dry clean and intact. Alcoholic liver cirrhosis and the patient has both paracentesis done on 10/26/2023 with removal of 5 L of ascitic fluid with appropriate albumin replacement. Will consider another paracentesis today as the patient's abdomen is quite distended this point in time. Acute hypoxic respiratory failure S/P intubation and mechanical ventilation for impending respiratory failure, secondary to fulminant liver failure, October 19, 2023. 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 The patient's chest x-ray findings are stable and the patient is currently on IV meropenem. The patient was extubated on 10/27/2023. Chronic liver disease/cirrhosis, and ascites, secondary to previous significant alcohol abuse. No evidence of any bacterial peritonitis Anion gap metabolic acidosis, resolved. Chronic kidney disease, rule out hepatorenal syndrome. Renal function stable for now Severe hyperammonemia and secondary metabolic encephalopathy and hepatic encephalopathy and the patient remains on lactulose. Ammonia level is improving and the patient is currently on lactulose and rifaximin, and ammonia level is improving and the patient's mental status also improving. Lactic acidosis, recovered History of hyperlipidemia. History of hypertension, currently hypotensive on low-dose norepinephrine and midodrine History of depression and PTSD. History of chronic tobacco use. Anemia of chronic disease. Severe medical debility secondary above-mentioned comorbidities Plan: Patient has been extubated and the patient is currently on room air oxygen. Bedside paracentesis was done and a total of 5 L of fluid was removed. Will give the patient IV albumin and replacement. This was performed on 10/26/2023. The repeat paracentesis will be needed as the patient's abdomen is quite distended this point in time. I think fluid now shows no evidence of any SBP Pressors have been weaned off and discontinued. Continue midodrine Continue IV meropenem Continue lactulose and rifaximin mean 550 mg p.o. twice a day, drop the lactulose dose to once a day. Monitor the white cell count Monitor the ammonia level, currently improving, mental status is also improving. Monitor the abdominal wound, output from the CHRIS drain is minimal at this point. General surgery is on the case C swallow evaluation and give the patient oral intake Will continue to follow and will make further recommendations based on the progress. This evaluation was done more than 30 minutes.
--- NOTE | 2023-10-28 13:41 | P.PCN ---
Date of Procedure: 10/28/23 Operative Findings: Preoperative Diagnosis: Ascites Postoperative Diagnosis: Ascites Procedure(s) Performed: Paracentesis Anesthesia: local Surgeon: Eddie Florez Estimated Blood Loss (ml): 0 Pathology: other Condition: critical Disposition: ICU Operative Findings: A time-out was performed. My hands were washed immediately prior to the procedure. I wore a surgical cap, mask with protective eyewear, sterile gown and sterile gloves throughout the procedure. The area was cleansed and draped in usual sterile fashion using chlorhexidine scrub. Anesthesia was achieved with 1% lidocaine. The right lower quadrant of the abdomen was prepped and draped in a sterile fashion using chlorhexidine scrub. 1% lidocaine was used to numb the skin, soft tissue and peritoneum. The paracentesis catheter was inserted and advanced with negative pressure until 1 cc colored fluid was aspirated. The catheter was then connected to the vaccutainer and 5 liters of additional ascitic fluid were drained. The catheter was removed and no leaking was noted. A bandaid was placed over the puncture wound. The patient tolerated the procedure well without any immediate complications. Estimated blood loss was 0.
--- NOTE | 2023-10-28 14:49 | P.PN ---
Subjective Progress Note Date: 10/28/23 CHIEF COMPLAINT: Incarcerated umbilical hernia HISTORY OF PRESENT ILLNESS: Postop day #11 status post open repair of incarcerated umbilical hernia, umbillectomy. Patient extubated yesterday. Abdomen distended with ascites. Patient had another paracentesis today with 5 L removed. He is having stools has fecal management system in place. He is off of Levophed. Patient did have a fever of 101 yesterday. PHYSICAL EXAM: VITAL SIGNS: Reviewed. GENERAL: intubated ABDOMEN: Soft. distended. Incisional dressing clean dry and intact. CHRIS drain serosanguineous ASSESSMENT: 1. Incarcerated umbilical hernia status post repair 2. Respiratory failure requiring mechanical ventilation 3. Elevated ammonia level 4. Chronic liver disease and liver cirrhosis with prior alcohol abuse 5. Hepatic encephalopathy PLAN: -Okay to start clear liquids -Continue ICU management -Continue supportive care -Continue PPI -Antibiotics per ID service Physician Lead Principal Technical Architect note has been reviewed by physician. Signing provider agrees with the documented findings, assessment, and plan of care. Objective - Vital Signs Vital signs: Vital Signs Temp 97.4 F L 10/28/23 12:15 Pulse 84 10/28/23 14:15 Resp 24 10/28/23 14:15 BP 112/63 10/28/23 07:00 Pulse Ox 99 10/28/23 14:15 FiO2 2 10/28/23 00:00 Intake & Output 10/27/23 10/28/23 10/28/23 18:59 06:59 18:59 Intake Total 6498.301 1825.551 282.165 Output Total 1050 1115 1625 Balance 221.048 -16.449 -1342.835 Weight 82.2 kg 84.4 kg Intake: IV 336 376 238 Lactated Ringers 1,000 ml 100 240 120 @ 20 mls/hr IV .Q24H IR[facility] Rx#:[id number] Meropenem 1 gm In Sodium 200 100 100 Chloride 0.9% 100 ml @ 33 .3 mls/hr IVPB Q8HR [facility] Rx#:[id number] Pressure Bag 36 36 18 Intake, IV Titration 295.048 512.551 44.165 Amount Norepinephrine 4 mg In 295.048 512.551 44.165 Sodium Chloride 0.9% 250 ml @ 0.03 MCG/KG/MIN 9. 201 mls/hr IV .Q24H IRINA Rx#:[id number] Tube Feeding 550 180 Other 90 30 Output: Gastric Drainage 500 Drainage 10 Lower Abdomen 10 Urine 590 965 375 Stool 450 150 750 Other: Voiding Method Indwelling Catheter Indwelling Catheter Indwelling Catheter ABP, PAP, CO, CI - Last Documented Arterial Blood Pressure 102/41 - Labs CBC & Chem 7: 10/28/23 04:30 10/28/23 04:30 Labs: Abnormal Lab Results - Last 24 Hours (Table) 10/27/23 10/27/23 10/27/23 Range/Units 16:45 20:55 23:32 WBC (3.8-10.6) k/uL RBC (4.30-5.90) m/uL Hgb (13.0-17.5) gm/dL Hct (39.0-53.0) % MCHC (31.0-37.0) g/dL RDW (11.5-15.5) % Plt Count (150-450) k/uL Neutrophils # (1.3-7.7) k/uL ABG pH 7.63 H* (7.35-7.45) ABG pCO2 24 L (35-45) mmHg ABG HCO3 26 H (21-25) mmol/L ABG Total CO2 26 H (19-24) mmol/L ABG O2 Saturation 99.0 H (94-97) % Sodium (137-145) mmol/L Chloride (98-107) mmol/L BUN (9-20) mg/dL Creatinine (0.66-1.25) mg/dL Glucose (74-99) mg/dL POC Glucose (mg/dL) 173 H 148 H (70-110) mg/dL Calcium (8.4-10.2) mg/dL 10/28/23 10/28/23 10/28/23 Range/Units 04:30 04:30 11:39 WBC 16.1 H (3.8-10.6) k/uL RBC 2.66 L (4.30-5.90) m/uL Hgb 7.0 L (13.0-17.5) gm/dL Hct 23.1 L (39.0-53.0) % MCHC 30.4 L (31.0-37.0) g/dL RDW 21.7 H (11.5-15.5) % Plt Count 115 L (150-450) k/uL Neutrophils # 13.7 H (1.3-7.7) k/uL ABG pH (7.35-7.45) ABG pCO2 (35-45) mmHg ABG HCO3 (21-25) mmol/L ABG Total CO2 (19-24) mmol/L ABG O2 Saturation (94-97) % Sodium 151 H (137-145) mmol/L Chloride 118 H (98-107) mmol/L BUN 73 H (9-20) mg/dL Creatinine 1.33 H (0.66-1.25) mg/dL Glucose 129 H (74-99) mg/dL POC Glucose (mg/dL) 156 H (70-110) mg/dL Calcium 7.7 L (8.4-10.2) mg/dL Microbiology - Last 24 Hours (Table) 10/26/23 11:00 Gram Stain - Preliminary Paracentesis Fluid Body Fluid Culture - Preliminary
[2023-10-28 15:23] LABS: African American GFR (CKD) 84 (>60 ml/min/1.73 sqM); Anion Gap 8 mmol/L; Blood Urea Nitrogen 70 mg/dL (9-20); Calcium 7.8 mg/dL (8.4-10.2); Carbon Dioxide 23 mmol/L (22-30); Chloride 113 mmol/L (98-107); Glucose 126 mg/dL (74-99); Non-African American GFR(CKD) 72 (>60 ml/min/1.73 sqM); Potassium 3.6 mmol/L (3.5-5.1); Sodium 144 mmol/L (137-145)
[2023-10-28] MEDS: POTASSIUM BICARBONATE/CIT AC 20 MEQ TABLET.EFF NG-TUBE SCH (16:10)
[2023-10-28 18:49] LABS: Glucose,Whole Blood 213 mg/dL (70-110)
[2023-10-28] MEDS: LACTULOSE 20 GM/30 ML CUP PO SCH (20:51)
[2023-10-28 23:58] LABS: Glucose,Whole Blood 131 mg/dL (70-110)
[2023-10-29 05:36] LABS: Glucose,Whole Blood 127 mg/dL (70-110)
[2023-10-29 06:21] LABS: Anisocytosis Moderate; Basophils # (A) 0.1 k/uL (0-0.2); Basophils % (A) 0 %; Eosinophils # (A) 0.6 k/uL (0-0.7); Eosinophils % (A) 4 %; HCT 22.1 % (39.0-53.0); Hypochromasia Marked; Lymphocytes # (A) 1.8 k/uL (1.0-4.8); Lymphocytes % (A) 10 %; MCH 27.4 pg (25.0-35.0); MCHC 31.4 g/dL (31.0-37.0); MCV 87.2 fL (80.0-100.0); Mean Platelet Volume 8.9; Monocytes # (A) 0.6 k/uL (0-1.0); Monocytes % (A) 3 %; Neutrophils # (A) 15.1 k/uL (1.3-7.7); Neutrophils % (A) 82 %; Platelet Count 111 k/uL (150-450); RBC 2.54 m/uL (4.30-5.90); RDW 21.9 % (11.5-15.5); WBC 18.4 k/uL (3.8-10.6)
[2023-10-29 06:25] LABS: HGB 6.9 gm/dL (13.0-17.5)
[2023-10-29 06:58] LABS: ALT 38 U/L (4-49); AST 88 U/L (17-59); African American GFR (CKD) 80 (>60 ml/min/1.73 sqM); Albumin 2.7 g/dL (3.5-5.0); Alkaline Phosphatase 81 U/L (38-126); Anion Gap 5 mmol/L; Blood Urea Nitrogen 66 mg/dL (9-20); Calcium 7.5 mg/dL (8.4-10.2); Carbon Dioxide 23 mmol/L (22-30); Chloride 107 mmol/L (98-107); Glucose 111 mg/dL (74-99); Non-African American GFR(CKD) 69 (>60 ml/min/1.73 sqM); Potassium 3.6 mmol/L (3.5-5.1); Sodium 135 mmol/L (137-145); Total Bilirubin 2.5 mg/dL (0.2-1.3); Total Protein 5.1 g/dL (6.3-8.2)
[2023-10-29] MEDS ORDERED: Potassium Replacement Protocol 1 EACH MISC MISCELLANE PRN (07:01)
--- NOTE | 2023-10-29 09:12 | P.PN ---
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 He presented to the emergency department on 10/16/23 with a chief complaint of intractable abdominal pain and reports umbilical hernia is now nonreducible. Vital signs upon arrival showed BP 115/69, HR 76, RR 18, T 97.8 F, and SpO2 100% on RA. EKG showed normal sinus rhythm at 63 bpm with no noted T wave or ST abnormalities. CBC showing bicytopenia with Hg 7.9 and Plt 98. Coagulation profile showed PT of 14.7 and INR 1.4. BMP showing Na 133, Cl 110, bicarb of 13, and anion gap of 10, BUN of 35, creatinine 1.65, GFR 51. Blood glucose was 119. Lactic acid was 1.8. Liver profile was unremarkable. Patient was evaluated by general surgeon, he is being admitted to general surgery team with plans to be taken to the OR for open surgical repair of incarcerated umbilical hernia. We were consulted for preoperative medical clearance and p ostoperative medical management. Patient underwent open repair of incarcerated umbilical hernia with umbillectomy on 10/[address] Hair. Renal function continued to worsen. Also noted to be more acidotic. Patient was started on albumin and octreotide. Midodrine was increased and Nephrology was consulted. Patient was started on bicarb drip. Renal function improving. Patient became encephalopathic on 10/18, started on rectal lactulose and transferred to medical ICU. His mentation continued to worsen, and he was intubated on 10/18. Started on Rocephin for concerns of SBP on 10/18. He has required Levophed since being intubated which is being slowly titrated down. CXR showing signs of right sided PNA, pro-mony elevated at 3.62, Rocephin switched to Zosyn on 10/21. Generalized tremors noted on 10/19, CT brain was negative for acute pathology and EEG showed moderate to severe background slowing. Started on Fentanyl drip (10/21-10/22) which improved his tremors, likely related to pain. There was concern for GI bleed as well. Hg downtrending to 6.6 on 10/21 requiring 1 unit PRBC. Feels okay today, no chest pain no abdominal pain, Remains afebrile Diet advance to clear liquids. Objective - Vital Signs Vital signs: Vital Signs Temp 98.5 F 10/29/23 04:00 Pulse 96 10/29/23 07:58 Resp 19 10/29/23 06:00 BP 112/63 10/29/23 06:00 Pulse Ox 96 10/29/23 06:00 FiO2 2 10/28/23 00:00 Intake & Output 10/28/23 10/29/23 10/29/23 18:59 06:59 18:59 Intake Total 952.436 0240 Output Total 1900 845 Balance -5620.876 2070 Weight 87.3 kg Intake: IV 516 276 0.9 240 Dextrose 5% in Water 1, 300 000 ml @ 60 mls/hr IV . [id number] [facility] Rx#:[id number] Lactated Ringers 1,000 ml 80 @ 20 mls/hr IV .Q24H [facility] Rx#:[id number] Meropenem 1 gm In Sodium 100 Chloride 0.9% 100 ml @ 33 .3 mls/hr IVPB Q8HR [facility] Rx#:[id number] Pressure Bag 36 36 Intake, IV Titration 44.165 Amount Norepinephrine 4 mg In 44.165 Sodium Chloride 0.9% 250 ml @ 0.03 MCG/KG/MIN 9. 201 mls/hr IV .Q24H [facility]INA Rx#:[id number] Oral 2100 Output: Gastric Drainage 500 Urine 650 495 Stool 750 350 Other: Voiding Method Indwelling Catheter Indwelling Catheter ABP, PAP, CO, CI - Last Documented Arterial Blood Pressure 90/45 - Exam General: Lethargic, does not appear to be in distress Derm: Warm, dry, jaundice Head: Atraumatic, normocephalic, symmetric Eyes: Scleral icterus, pupils equal and reactive Mouth: No lip lesion, mucus membranes moist Cardiovascular: S1S2 reg, no murmur Lungs: Coarse BS bilateral, no rhonchi, no rales, no accessory muscle use, intubated Abdominal: Distended, nontender to palpation, no guarding, no appreciable organomegaly, midline dressing clean, dry, intact, + Epps Ext: Gross muscle atrophy Neuro: Awake alert oriented 3 - Labs CBC & Chem 7: 10/29/23 05:32 10/29/23 05:32 Labs: Abnormal Lab Results - Last 24 Hours (Table) 10/28/23 10/28/23 10/28/23 Range/Units 11:39 14:53 18:47 WBC (3.8-10.6) k/uL RBC (4.30-5.90) m/uL Hgb (13.0-17.5) gm/dL Hct (39.0-53.0) % RDW (11.5-15.5) % Plt Count (150-450) k/uL Neutrophils # (1.3-7.7) k/uL Sodium (137-145) mmol/L Chloride 113 H (98-107) mmol/L BUN 70 H (9-20) mg/dL Creatinine (0.66-1.25) mg/dL Glucose 126 H (74-99) mg/dL POC Glucose (mg/dL) 156 H 213 H (70-110) mg/dL Calcium 7.8 L (8.4-10.2) mg/dL Total Bilirubin (0.2-1.3) mg/dL AST (17-59) U/L Total Protein (6.3-8.2) g/dL Albumin (3.5-5.0) g/dL Crossmatch 10/28/23 10/29/23 10/29/23 Range/Units 23:56 05:32 05:32 WBC 18.4 H (3.8-10.6) k/uL RBC 2.54 L (4.30-5.90) m/uL Hgb 6.9 L* (13.0-17.5) gm/dL Hct 22.1 L (39.0-53.0) % RDW 21.9 H (11.5-15.5) % Plt Count 111 L (150-450) k/uL Neutrophils # 15.1 H (1.3-7.7) k/uL Sodium 135 L (137-145) mmol/L Chloride (98-107) mmol/L BUN 66 H (9-20) mg/dL Creatinine 1.27 H (0.66-1.25) mg/dL Glucose 111 H (74-99) mg/dL POC Glucose (mg/dL) 131 H (70-110) mg/dL Calcium 7.5 L (8.4-10.2) mg/dL Total Bilirubin 2.5 H (0.2-1.3) mg/dL AST 88 H (17-59) U/L Total Protein 5.1 L (6.3-8.2) g/dL Albumin 2.7 L (3.5-5.0) g/dL Crossmatch 10/29/23 10/29/23 Range/Units 05:34 06:45 WBC (3.8-10.6) k/uL RBC (4.30-5.90) m/uL Hgb (13.0-17.5) gm/dL Hct (39.0-53.0) % RDW (11.5-15.5) % Plt Count (150-450) k/uL Neutrophils # (1.3-7.7) k/uL Sodium (137-145) mmol/L Chloride (98-107) mmol/L BUN (9-20) mg/dL Creatinine (0.66-1.25) mg/dL Glucose (74-99) mg/dL POC Glucose (mg/dL) 127 H (70-110) mg/dL Calcium (8.4-10.2) mg/dL Total Bilirubin (0.2-1.3) mg/dL AST (17-59) U/L Total Protein (6.3-8.2) g/dL Albumin (3.5-5.0) g/dL Crossmatch See Detail Microbiology - Last 24 Hours (Table) 10/26/23 11:00 Gram Stain - Preliminary Paracentesis Fluid Body Fluid Culture - Preliminary 10/27/23 16:13 Blood Culture - Preliminary Blood Assessment and Plan Plan: Ventilator dependent respiratory failure: Extubated,Continue supportive care, continue to monitor. Septic shock likely secondary to below: Antibiotics as below. BCx, Sputum Cx (10/18) and Paracentesis Cx (10/15) negative. Telemetry monitoring.Continue supp ortive, On meropenem, WBC 18.4 Ventilator Associated Pneumonia: Started on Zosyn 10/21 should cover for both SBP and pseudomonas. Pro-mony elevated. Sputum Cx collected 10/23 shows few PMN, rare gram negative bacilli.Pulmonary critical care following. Suspected spontaneous bacterial peritonitis: Ascitic fluid culture negative. BCx negative. Sputum Cx negative. Acute hepatic encephalopathy: Lactulose 20g PO TID. Fecal management system in place. Acute GI bleed: 1 unit PRBC 10/21. Surgery on board recommending continued monitoring. Protonix 40 mg IV QD. Transfuse if Hg < 7.Hemoglobin 7, Hemoglobin d own to 6.9, critical care following, transfuse as indicated IVAN, secondary to suspected hepatorenal syndrome, history of CKD stage III: Nephrology recommends continuing LR, midodrine and Sandostatin along with albumin.Creatinine stable at 1.3. Tremors: Likely pain related. CT brain negative. EEG mod-severe encaphalopathy. Improved with Fentanyl. History of advanced liver cirrhosis: Continue Albumin 12.5g IV QD, Midodrine 15 mg PO TID, Octreotide 100mcg subQ TID. Bicytopenia secondary to liver cirrhosis, monitor Elevated INR Incarcerated/strangulated umbilical hernia status post open repair: Management per general surgery Resolved: Metabolic and lactic acidosis Disposition: Remains in ICU.Possible transfer to medical floor soon.Continue supportive care, continue to monitor.
[2023-10-29] MEDS: POTASSIUM CHLORIDE ER 20 MEQ TAB.ER PO SCH (09:25)
[2023-10-29] MEDS ORDERED: PROMETHAZINE 25 MG TAB PO PRN (09:48)
[2023-10-29] MEDS ORDERED: METOCLOPRAMIDE 5 MG/ML 2 ML VIAL IVP PRN (09:49)
[2023-10-29] MEDS: FUROSEMIDE 10 MG/ML 4 ML VIAL IV SCH (09:57)
[2023-10-29 12:06] LABS: Glucose,Whole Blood 125 mg/dL (70-110)
--- NOTE | 2023-10-29 13:07 | P.PN ---
Subjective Progress Note Date: 10/29/23 Pulmonary consult dated October 19, 2023. 44-year-old male who presented to the emergency department, on October 15, complaining of abdominal pain. The patient has a history of chronic liver disease from alcohol abuse, with cirrhosis and ascites, and need for periodic paracentesis abdominis. The patient has a known history of a umbilical hernia, which she is able to typically reduce, but because he was not able to reduce it, he came in to be evaluated. The patient ended up having surgery, last Thursday, on the , and initially was doing okay. This morning I was called by the surgeon, and my charge nurse in the intensive care unit, to say that the patient was doing poorly, and should be transferred down to the intensive care unit for further monitoring and management. The patient was very lethargic, and looked very unstable, with impending respiratory failure. When I first saw the patient he was on room air, and receiving an IV with 3 ampoules of sodium bicarb in D5W at 80 cc an hour. I asked for stat blood gas, when the patient came to the intensive care unit. His pO2 was 40, pCO2 27, pH is 7.41. After evaluating the patient, I decided to intubate the patient which we did, and place a central line and arterial line, both of which we did. Current laboratory data includes a blood gas showing a pO2 of 393, pCO2 41, pH is 7.26. Saturations are 100%. White count is 18.9, hemoglobin 8.3, hematocrit 26.3, and a platelet count of 156,000. Sodium 137, potassium 4.5, chlorides 106, CO2 14, anion gap 17, BUN 69.6, and creatinine 3. Glucose was 126. Lactic acid was 2.8. Bilirubin was 1.5. Ammonia level was up to 259. Cultures of the ascitic fluid are thus far negative. Chest x-ray shows endotracheal tube to be in good position. Central line is in good position, without complication. Progress note dated October 20, 2023. The patient is seen today in room 263. The patient was intubated, and lined yesterday, for respiratory failure. The patient has a history of chronic liver disease, with cirrhosis, ascites, and encephalopathy. Currently, the patient is on volume assist-control, rate 20, tidal volume 400, FiO2 40%, PEEP of 5. Blood gases show pO2 108, pCO2 28, pH is 7.46. This blood gases consistent with a mild respiratory alkalosis. The patient is getting D5W with 3 ampoules of sodium bicarbonate at 80 cc an hour. The patient is getting norepinephrine at 3 mcg/min, propofol at 50 mcg/kg/min. The patient has been having tremor-like activity, and could be seizing. The brain CT was negative. The patient will have tube feedings beginning today. We have ordered an EEG. In addition, I have asked the nurse to give the patient 2 mg of Ativan, to see if the tremors cease. White count is 13, hemoglobin 7, hematocrit 23, platelet count 106,000. Sodium 138, potassium 3.5, chlorides 111, CO2 17, anion gap 10, BUN 63, creatinine 2.27. Glucose is 160. Ammonia level is down to 49. Albumin is 3.1. Thus far, cultures are negative. The patient's chest x-ray shows the endotracheal tube to be high in the trachea, and have asked respiratory therapy to push it down to 1.5 cm. Progress note dated October 21, 2023. The patient is seen today in room 263. He remains on mechanical ventilator. He is on volume assist-control, rate 20, tidal volume 400, FiO2 40%, PEEP of 5. Blood gases show pO2 of 64, pCO2 37, pH is 7.47. The patient is getting propo fol at 50 mcg/kg/min, D5W with 3 ampoules of bicarbonate at 80 cc an hour, fentanyl drip at 1 mcg/kg/h, vital AF at 29 cc an hour, with a goal of 43 cc an hour. The patient also continues on Rocephin. White count is 10.3, hemoglobin 7, hematocrit 22.8, and platelet count 109,000. Sodium 137, potassium 3.7, chlorides 104, CO2 24, BUN 54, and creatinine 1.76. Glucose is 116. Ammonia level is 56. Calcium is 7.7. Cultures are thus far negative. Chest x-ray is unchanged. There is a small left pleural effusion. NG tube, endotracheal tube, and central venous catheter, are in appropriate positions. Progress note dated October 22, 2023. 43-year-old male seen again in the intensive care unit, room 263. He remains on the mechanical ventilator. The patient's ventilator settings include volume assist-control, rate 20, tidal volume 400, FiO2 40%, PEEP of 5. Blood gases show pO2 68, pCO2 45, pH is 7.41. The patient is on norepinephrine at 9 mcg/min, propofol at 50 mcg/kg/min, lactated Ringer's at 75 cc an hour, and fentanyl at 1 mcg/kg/h. The patient is getting tube feedings with vital AF at 43 cc an hour, which is goal. Microbiologic studies are thus far negative. The patient is on Rocephin. He has received 1 unit of packed red blood cells. Current labs include a white count 10.5, hemoglobin 6.6, hematocrit 22.2, and a platelet count of 97,000. Sodium 138, potassium 3.4, chlorides 106, CO2 26, BUN 53, creatinine 1.78. Glucose is 140. Albumin is 2.8. Total bilirubin is 1.4. Chest x-ray shows air space opacities, in the lung bases, which have worsened. Lines and tubes are in good placement. Note dated October 23, 2023. 43-year-old male seen again in room 263. He remains on mechanical ventilator. Vent settings include volume assist-control, rate 20, tidal volume 400, FiO2 40%, PEEP of 5. Blood gases show pO2 87, pCO2 44, pH is 7.40. The patient is getting lactated Ringer's at 75 cc an hour, propofol at 45 mcg/kg/min, norepinephrine at 7.7 mcg/min, and saline at 10 cc an hour. The patient is also getting vital AF, at 10 cc an hour. He continues on Zosyn. We will check a procalcitonin level. The patient will have a daily interruption of sedation, without a spontaneous breathing trial today. Current labs include a white count of 12.7, hemoglobin 7.8, hematocrit 26, platelet count 75,000. Sodium 138, potassium 4.1, chlorides 105, CO2 26, BUN 47, creatinine 1.35. Glucose is 141. Albumin is 3.1. Cultures thus far negative including blood and sputum. Chest x-ray shows the OG tube, to remain in satisfactory position. There is persistent bibasilar infiltrates and/or atelectasis. Progress note dated October 24, 2023. 43-year-old male seen again in room 263. The patient remains on the mechanical ventilator. He is on volume assist-control, rate 20, tidal volume 400, FiO2 30%, PEEP of 5. Blood gases show pO2 69, pCO2 39, and pH is 7.44. The patient remains on propofol at 20 mcg/kg/min, norepinephrine at 2.4 mcg/min, lactated Ringer's at 50 cc an hour, and saline at 10 cc an hour. Patient is getting vital AF at 20, with a goal at 20 cc an hour. The patient continues on Zosyn. His procalcitonin level was 3.62. He will get 1 dose of Lasix 40 mg IV push. His lactated Ringer's IV, will be made KVO. Current labs include a white count of 17.6, hemoglobin 7.4, hematocrit 24.8, and a platelet count of 98,000. Sodium 142, potassium 3.8, chlorides 107, CO2 26, BUN 51, creatinine 1.36. Calcium is 8.2. Albumin is 3.0. Ammonia level was 22. All cultures are thus far negative. Chest x-ray shows small lung volumes, with basilar infiltrates or atelectasis, and small effusions. Progress note dated October 25, 2023. 43-year-old male seen again in room 263. The patient remains on the ventilator. He is on volume assist-control, rate 20, tidal volume 400, FiO2 30%, PEEP of 5. Blood gases show pO2 of 70, pCO2 39, pH is 7.46. The patient getting lactated Ringer's at 20 cc an hour, norepinephrine at 5.6 mcg/min, and vital AF at 20 cc an hour, which is goal. The patient will have a spontaneous breathing trial today, as he has been off of propofol for some time. His cultures are negative. He continues on Zosyn. I am not hopeful that the patient will be extubated today. White count 19.1, hemoglobin 7.3, hematocrit 23.8, platelet count 105,000. Sodium 143, potassium 3.8, chlorides 109, CO2 26, BUN 62, creatinine 1.60. Glucose 131. Albumin 2.8. Calcium 8.1. Cultures are thus far negative. Chest x-ray shows small lung volumes. Endotracheal tube is in appropriate position in the trachea. There is basilar atelectasis, and small bilateral pleural effusions. On today's evaluation of 10/26/2023, the patient remains intubated on mechanical ventilator. As mentioned, the patient is post repair of incarcerated abdominal/umbilical hernia. The patient is known to have liver cirrhosis secondary to alcoholism. The patient has large ascites in addition. The patient has been off Precedex since 10/24/2023. On today's evaluation, he is extremely lethargic. He is following some simple commands. Unable to cough. Unable to raise his arms against gravity. His serum ammonia level has been measured at 61 and the patient continues to be on lactulose. His last bowel movement was 48 hours ago. In terms of his breathing, the patient is on a assist-control mode of mechanical ventilation at rate of 20, tidal volume of 400, FiO2 30% with a PEEP of 5 with a blood gas showing a pH of 7.47 with a pCO2 of 38 and pO2 of 71. The patient remains on low-dose norepinephrine running at 0.02 mcg/kg/min. Lactated Ringer's running at a rate of. Urine output is adequate at 60 cc. Earlier this morning, the patient was taken off the assist- control mode of mechanical ventilation and placed on a pressure support of 7 and a PEEP of 5 and he was able to generate adequate minute ventilation and tidal volume. He has a CHRIS drain and output is minimal and this was serous in nature. The white cell count is 14.7 with a heme of 7.1 and a platelet count of 102. INR is 1.5, sodium is at 144, BUN is 73 with a creatinine of 1.6 and a sodium levels at 144 and a potassium level is at 3.7. The patient is on IV Zosyn as an empiric antibiotic coverage. Based on all this, and based on the large ascitic fluid, I did a bedside paracentesis and the patient had a total of 5 L of ascitic fluid was aspirated and this will be sent for cultures and analysis. His sputum samples from 10/24/2023 is showing Burkholderia chest x-ray reveals smaller lung volumes along with some small bilateral pleural effusions. The patient is on DuoNeb nebulized treatments [id number]. The patient on midodrine 15 mg p.o. 3 times daily. Low-dose norepinephrine. 10/27/2023, patient remains intubated on the mechanical ventilator. Remains encephalopathic despite some improvement in his ammonia level. The patient serum ammonia level is down to 48 and the patient is currently on lactulose and rifaximin. Noted the patient has a fecal management system in place and is producing adequate amount of bowel movement. Grimaces to painful stimulation. Occasionally follows commands. Very much lethargic. Very much weak. Has a weak cough. May not be able to protect his airway postextubation for that reason we kept him on the mechanical ventilator for now. On today's evaluation, he is showing a less distended abdomen as the patient underwent a paracentesis and the ascitic fluid showed no clear indication for an underlying infection. The cell count of mesenteric fluid was 170. Cultures are still pending for now. The patient remains on pressure control mode of mechanical ventilation at the rate of 50, pressure control of 50, expiratory, 0.8, FiO2 of 30% with a PEEP of 5. Blood gas showed a pH of 7.33 with a pCO2 of 31 and a pO2 of 83. The patient remains off sedative medications. His labs from today showed a white c ell count of 14.2 with a hemoglobin of 7.4 and a platelet count of 100. BUN is 73 with a creatinine 1.47 and a sodium noted at 145 with a potassium level is at 3.6. Serum bicarb is at 22. The chest x-ray findings chronic stable bilateral lower lobe pulmonary infiltrates and the patient remains on broad-spectrum antibiotics and the patient remains on IV meropenem. 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 10/28/23 the patient is being seen for a follow-up. Note that the patient was weaned off mechanical ventilator and the patient was extubated yesterday without any major difficulties. The patient is currently on room air oxygen. No significant respiratory distress. He is much more alert and awake. He is following some simple commands. He is stooling excessively in the stool output in the order of 1000 mL over the past 24 hours. He remains on lactulose 20 g 3 times a day. His serum ammonia level has been downtrending and ammonia level is currently down to 48 sodium levels at 151. Potassium is at 3.7, BUN 73 with a creatinine of 1.33. Glucose is 129. Abdomen is again distended and the patient is having significant abdominal discomfort because of ongoing ascites and abdominal distention. The patient was started on D5 water by nephrology and currently D5 water is running at 60 cc an hour. The patient remains on IV meropenem. Patient is on octreotide. Output from the CHRIS drain is minimal. No pressors. 10/29/2023, the patient is being seen for a follow-up. Awake and alert and communicating. Encephalopathy essentially improving and the patient's ammonia level is considerably down to 24. He continues to have high output stool and lactulose was held today. Paracentesis was done yesterday with a total of 5 L of ascitic fluid being drained. The patient was given IV albumin replacement. BUN is 66 with a creatinine of 1.27 and sodium levels at 135 with a potassium level of 3.6. Hemoglobin is down to 6.9 and a white cell count of 18.4. Patient is currently on no pressors. The patient remains on IV meropenem. The patient remains on a combination of lactulose and Xifaxan. Continues to have edema in all 4 extremities. There is generalized weakness in all 4 extremities. Nevertheless, there is no focal neurological deficits. Level of alertness is improved considerably. Objective - Vital Signs Vital signs: Vital Signs Temp 99.2 F 10/29/23 08:00 Pulse 102 H 10/29/23 09:00 Resp 23 10/29/23 09:00 BP 112/63 10/29/23 09:00 Pulse Ox 96 10/29/23 09:00 FiO2 2 10/28/23 00:00 Intake & Output 10/28/23 10/29/23 10/29/23 18:59 06:59 18:59 Intake Total 906.527 2125 189 Output Total 1900 845 100 Balance -3823.573 8304 89 Weight 87.3 kg Intake: IV 516 276 69 0.9 240 60 Dextrose 5% in Water 1, 300 000 ml @ 60 mls/hr IV . [id number] [facility] Rx#:[id number] Lactated Ringers 1,000 ml 80 @ 20 mls/hr IV .Q24H [facility] Rx#:[id number] Meropenem 1 gm In Sodium 100 Chloride 0.9% 100 ml @ 33 .3 mls/hr IVPB Q8HR [facility] Rx#:[id number] Pressure Bag 36 36 9 Intake, IV Titration 44.165 Amount Norepinephrine 4 mg In 44.165 Sodium Chloride 0.9% 250 ml @ 0.03 MCG/KG/MIN 9. 201 mls/hr IV .Q24H [facility] Rx#:[id number] Oral 2100 120 Output: Gastric Drainage 500 Urine 650 495 100 Stool 750 350 Other: Voiding Method Indwelling Catheter Indwelling Catheter ABP, PAP, CO, CI - Last Documented Arterial Blood Pressure 100/51 - Exam Comment comfortable, quite debilitated and body mass index of 26.4. Emaciated, cachectic looking and the patient is currently extubated on room air oxygen. Head exam was generally normal. There was no scleral icterus or corneal arcus. Mucous membranes were moist. There is obvious temporal wasting. HEENT examination is grossly unremarkable. Mucous membranes are dry. Teeth are in very poor condition Neck supple. Full range of motion. No adenopathy thyromegaly or neck vein distention. Cardiovascular examination reveals regular rhythm rate. S1-S2 normal. No S3 or S4. No discernible murmur noted. Lungs reveal scattered crackles and rhonchi. No wheezes. Breath sounds equal. Abdomen soft, without bowel sounds. No masses. Abdomen is distended and is consistent with underlying ascites. The surgical abdominal wound scar is dry clean and intact. No active drainage. There is a fluid wave and shifting dul lness consistent with ascites. Extremities are intact. No cyanosis clubbing or edema. Skin is jaundiced. Neurologic examination arousable when he is communicating and following commands. He has profound weakness in all 4 extremities. - Labs CBC & Chem 7: 10/29/23 05:32 10/29/23 05:32 Labs: Abnormal Lab Results - Last 24 Hours (Table) 10/28/23 10/28/23 10/28/23 Range/Units 11:39 14:53 18:47 WBC (3.8-10.6) k/uL RBC (4.30-5.90) m/uL Hgb (13.0-17.5) gm/dL Hct (39.0-53.0) % RDW (11.5-15.5) % Plt Count (150-450) k/uL Neutrophils # (1.3-7.7) k/uL Sodium (137-145) mmol/L Chloride 113 H (98-107) mmol/L BUN 70 H (9-20) mg/dL Creatinine (0.66-1.25) mg/dL Glucose 126 H (74-99) mg/dL POC Glucose (mg/dL) 156 H 213 H (70-110) mg/dL Calcium 7.8 L (8.4-10.2) mg/dL Total Bilirubin (0.2-1.3) mg/dL AST (17-59) U/L Total Protein (6.3-8.2) g/dL Albumin (3.5-5.0) g/dL Crossmatch 10/28/23 10/29/23 10/29/23 Range/Units 23:56 05:32 05:32 WBC 18.4 H (3.8-10.6) k/uL RBC 2.54 L (4.30-5.90) m/uL Hgb 6.9 L* (13.0-17.5) gm/dL Hct 22.1 L (39.0-53.0) % RDW 21.9 H (11.5-15.5) % Plt Count 111 L (150-450) k/uL Neutrophils # 15.1 H (1.3-7.7) k/uL Sodium 135 L (137-145) mmol/L Chloride (98-107) mmol/L BUN 66 H (9-20) mg/dL Creatinine 1.27 H (0.66-1.25) mg/dL Glucose 111 H (74-99) mg/dL POC Glucose (mg/dL) 131 H (70-110) mg/dL Calcium 7.5 L (8.4-10.2) mg/dL Total Bilirubin 2.5 H (0.2-1.3) mg/dL AST 88 H (17-59) U/L Total Protein 5.1 L (6.3-8.2) g/dL Albumin 2.7 L (3.5-5.0) g/dL Crossmatch 10/29/23 10/29/23 Range/Units 05:34 06:45 WBC (3.8-10.6) k/uL RBC (4.30-5.90) m/uL Hgb (13.0-17.5) gm/dL Hct (39.0-53.0) % RDW (11.5-15.5) % Plt Count (150-450) k/uL Neutrophils # (1.3-7.7) k/uL Sodium (137-145) mmol/L Chloride (98-107) mmol/L BUN (9-20) mg/dL Creatinine (0.66-1.25) mg/dL Glucose (74-99) mg/dL POC Glucose (mg/dL) 127 H (70-110) mg/dL Calcium (8.4-10.2) mg/dL Total Bilirubin (0.2-1.3) mg/dL AST (17-59) U/L Total Protein (6.3-8.2) g/dL Albumin (3.5-5.0) g/dL Crossmatch See Detail Microbiology - Last 24 Hours (Table) 10/26/23 11:00 Gram Stain - Preliminary Paracentesis Fluid Body Fluid Culture - Preliminary 10/27/23 16:13 Blood Culture - Preliminary Blood Assessment and Plan Plan: Incarcerated umbilical hernia status postsurgical repair and the patient is postop day # 13. Output from CHRIS drain is minimal and the surgical site is dry clean and intact. Alcoholic liver cirrhosis and the patient has both paracentesis done on 10/26/2023 with removal of 5 L of ascitic fluid with appropriate albumin replacement. Another paracentesis was on 10/28/2023 with a total of 5 L of fluid removed. Acute hypoxic respiratory failure S/P intubation and mechanical ventilation for impending respiratory failure, secondary to fulminant liver failure, October 19, 2023. 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 The patient's chest x-ray findings are stable and the patient is currently on IV meropenem. The patient was extubated on 10/27/2023. The patient is currently on room air oxygen. Chronic liver disease/cirrhosis, and ascites, secondary to previous significant alcohol abuse. No evidence of any bacterial peritonitis Anion gap metabolic acidosis, resolved. Chronic kidney disease, rule out hepatorenal syndrome. Renal function stable for now Severe hyperammonemia and secondary metabolic encephalopathy and hepatic encephalopathy and the patient remains on lactulose. Ammonia level is improving and the patient is currently on lactulose and rifaximin, and ammonia level is improving and the patient's mental status also improving. Lactic acidosis, recovered History of hyperlipidemia. History of hypertension, currently hypotensive on low-dose norepinephrine and midodrine History of depression and PTSD. History of chronic tobacco use. Anemia of chronic disease. Severe medical debility secondary above-mentioned comorbidities Plan: Patient currently on room air oxygen. Periodic paracentesis done and the abdomen is less distended Patient is currently on no pressors Continue midodrine Continue IV meropenem Continue lactulose and rifaximin 550 mg p.o. twice a day, drop the lactulose dose to once a day. Monitor the white cell count Monitor the ammonia level, currently improving, mental status is also improving. Monitor the abdominal wound, output from the CHRIS drain is minimal at this point. General surgery is on the case Soft diet Start the patient on Lasix 40 mg p.o. twice daily in combination with Aldactone And promethazine for hiccups Will continue to follow and will make further recommendations based on the progress. Should be able to transfer this patient out of the intensive care unit.
--- NOTE | 2023-10-29 13:30 | P.PN ---
Subjective Progress Note Date: 10/29/23 Patient is seen in follow-up for acute kidney injury. Renal function better. Underwent paracentesis October 26, 2023 with 5 L drained. Off Levophed. Extubated. Vital signs are stable. General: Resting in bed. HEENT: On nasal cannula. LUNGS: Scattered rhonchi. HEART: Rate and Rhythm are regular. ABDOMEN: Distention noted. EXTREMITITES: No edema. Objective - Vital Signs Vital signs: Vital Signs Temp 99 F 10/29/23 11:22 Pulse 88 10/29/23 11:25 Resp 24 10/29/23 11:22 BP 110/52 10/29/23 11:22 Pulse Ox 100 10/29/23 11:22 FiO2 2 10/28/23 00:00 Intake & Output 10/28/23 10/29/23 10/29/23 18:59 06:59 18:59 Intake Total 860.833 9331 335 Output Total 1900 845 350 Balance -0987.652 9184 -15 Weight 87.3 kg Intake: IV 516 276 215 0.9 240 100 Dextrose 5% in Water 1, 300 000 ml @ 60 mls/hr IV . [id number] [facility] Rx#:[id number] Lactated Ringers 1,000 ml 80 @ 20 mls/hr IV .Q24H [facility] Rx#:[id number] Meropenem 1 gm In Sodium 100 100 Chloride 0.9% 100 ml @ 33 .3 mls/hr IVPB Q8HR [facility] Rx#:[id number] Pressure Bag 36 36 15 Intake, IV Titration 44.165 Amount Norepinephrine 4 mg In 44.165 Sodium Chloride 0.9% 250 ml @ 0.03 MCG/KG/MIN 9. 201 mls/hr IV .Q24H [facility] Rx#:[id number] Oral 2100 120 Blood Product 0 Rc As-1 Unit 0 [id number] Output: Gastric Drainage 500 Urine 650 495 350 Stool 750 350 Other: Voiding Method Indwelling Catheter Indwelling Catheter Indwelling Catheter ABP, PAP, CO, CI - Last Documented Arterial Blood Pressure 91/38 - Labs CBC & Chem 7: 10/29/23 05:32 10/29/23 05:32 Labs: Abnormal Lab Results - Last 24 Hours (Table) 06/27/24 07/03/24 07/03/24 Range/Units 03:08 14:53 18:47 WBC (3.8-10.6) k/uL RBC (4.30-5.90) m/uL Hgb (13.0-17.5) gm/dL Hct (39.0-53.0) % RDW (11.5-15.5) % Plt Count (150-450) k/uL Neutrophils # (1.3-7.7) k/uL Sodium (137-145) mmol/L Chloride 113 H (98-107) mmol/L BUN 70 H (9-20) mg/dL Creatinine (0.66-1.25) mg/dL Glucose 126 H (74-99) mg/dL POC Glucose (mg/dL) 213 H (70-110) mg/dL Calcium 7.8 L (8.4-10.2) mg/dL Total Bilirubin (0.2-1.3) mg/dL AST (17-59) U/L Total Protein (6.3-8.2) g/dL Albumin (3.5-5.0) g/dL Crossmatch See Detail 10/28/23 10/29/23 10/29/23 Range/Units 23:56 05:32 05:32 WBC 18.4 H (3.8-10.6) k/uL RBC 2.54 L (4.30-5.90) m/uL Hgb 6.9 L* (13.0-17.5) gm/dL Hct 22.1 L (39.0-53.0) % RDW 21.9 H (11.5-15.5) % Plt Count 111 L (150-450) k/uL Neutrophils # 15.1 H (1.3-7.7) k/uL Sodium 135 L (137-145) mmol/L Chloride (98-107) mmol/L BUN 66 H (9-20) mg/dL Creatinine 1.27 H (0.66-1.25) mg/dL Glucose 111 H (74-99) mg/dL POC Glucose (mg/dL) 131 H (70-110) mg/dL Calcium 7.5 L (8.4-10.2) mg/dL Total Bilirubin 2.5 H (0.2-1.3) mg/dL AST 88 H (17-59) U/L Total Protein 5.1 L (6.3-8.2) g/dL Albumin 2.7 L (3.5-5.0) g/dL Crossmatch 10/29/23 10/29/23 Range/Units 05:34 06:45 WBC (3.8-10.6) k/uL RBC (4.30-5.90) m/uL Hgb (13.0-17.5) gm/dL Hct (39.0-53.0) % RDW (11.5-15.5) % Plt Count (150-450) k/uL Neutrophils # (1.3-7.7) k/uL Sodium (137-145) mmol/L Chloride (98-107) mmol/L BUN (9-20) mg/dL Creatinine (0.66-1.25) mg/dL Glucose (74-99) mg/dL POC Glucose (mg/dL) 127 H (70-110) mg/dL Calcium (8.4-10.2) mg/dL Total Bilirubin (0.2-1.3) mg/dL AST (17-59) U/L Total Protein (6.3-8.2) g/dL Albumin (3.5-5.0) g/dL Crossmatch See Detail Microbiology - Last 24 Hours (Table) 10/26/23 11:00 Gram Stain - Preliminary Paracentesis Fluid Body Fluid Culture - Preliminary 10/27/23 16:13 Blood Culture - Preliminary Blood Assessment and Plan Assessment: 1. Acute kidney injury secondary to ATN secondary to hypotension. No evidence of hydronephrosis noted on CAT scan done September 04, 2023. Creatinine peaked at 3.0 this admission -stable at 1.27 today. 2. Alcohol induced liver cirrhosis. 3. Metabolic acidosis secondary to acute kidney injury. Improved. 4. Status post open repair of incarcerated umbilical hernia and embolectomy on October 16, 2023. 5. Hepatic encephalopathy. 6. Acute hypoxic respiratory failure. Extubated October 27, 2023. 7. Ascites status post paracentesis October 26, 2023 with 5 L drained. 8. Hypokalemia from poor intake and diuresis. Being replaced. 9. Hypernatremia from lack of oral water intake and free water diuresis. Plan: Encouraged oral intake, including free water. Sodium level improved, off D5W. Maintain midodrine. Avoid nephrotoxins. Continue to monitor renal function and urine output. Maintain Aldactone.
--- NOTE | 2023-10-29 15:51 | P.PN ---
Subjective Progress Note Date: 10/28/23 Principal diagnosis: Reason for follow-up is pneumonia Patient is a 43-year-old male past medical history significant for hypertension hyperlipidemia alcoholism liver cirrhosis presenting to the hospital on 10/16/2023 for evaluation of abdominal pain, has been diagnosed with a incarcerated umbilical hernia status post open repair patient did have a worsening respiratory status requiring intubation on 10/19/2023 patient did have positive sputum culture with Burkholderia cepacia prompting this consultation. On today's evaluation that is 10/28/2023,the patient has been extubated, the patient denies any fever or any chills, patient is breathing comfortably on 2 L current oxygen, the patient denies chest pain shortness of breath and no significant cough, patient did have some abdominal distention discomfort but no nausea or vomiting he did have diarrhea however the patient is getting lactulose Patient white count is slightly up to 16.1, creatinine is 1.23 Objective - Vital Signs Vital signs: Vital Signs Temp 97.4 F L 10/28/23 12:15 Pulse 87 10/28/23 16:00 Resp 16 10/28/23 16:00 BP 112/63 10/28/23 07:00 Pulse Ox 100 10/28/23 16:00 FiO2 2 10/28/23 00:00 Intake & Output 10/27/23 10/28/23 10/28/23 18:59 06:59 18:59 Intake Total 5452.629 9907.551 551.165 Output Total 1050 1115 1750 Balance 221.048 -16.449 -1198.835 Weight 82.2 kg 84.4 kg Intake: IV 336 376 507 Dextrose 5% in Water 1, 300 000 ml @ 60 mls/hr IV . [id number] [facility] Rx#:[id number] Lactated Ringers 1,000 ml 100 240 80 @ 20 mls/hr IV .Q24H [facility] Rx#:[id number] Meropenem 1 gm In Sodium 200 100 100 Chloride 0.9% 100 ml @ 33 .3 mls/hr IVPB Q8HR [facility] Rx#:[id number] Pressure Bag 36 36 27 Intake, IV Titration 295.048 512.551 44.165 Amount Norepinephrine 4 mg In 295.048 512.551 44.165 Sodium Chloride 0.9% 250 ml @ 0.03 MCG/KG/MIN 9. 201 mls/hr IV .Q24H [facility] Rx#:[id number] Tube Feeding 550 180 Other 90 30 Output: Gastric Drainage 500 Drainage 10 Lower Abdomen 10 Urine 590 965 500 Stool 450 150 750 Other: Voiding Method Indwelling Catheter Indwelling Catheter Indwelling Catheter ABP, PAP, CO, CI - Last Documented Arterial Blood Pressure 131/54 - Exam GENERAL DESCRIPTION: Middle-age male lying in bed in no distress RESPIRATORY SYSTEM: Unlabored breathing , decreased breath sounds at bases HEART: S1 S2 regular rate and rhythm , ABDOMEN: Soft , mild distention EXTREMITIES: edema feet - Labs CBC & Chem 7: 10/29/23 05:32 10/29/23 05:32 Labs: Abnormal Lab Results - Last 24 Hours (Table) 10/27/23 10/27/23 10/28/23 Range/Units 20:55 23:32 04:30 WBC 16.1 H (3.8-10.6) k/uL RBC 2.66 L (4.30-5.90) m/uL Hgb 7.0 L (13.0-17.5) gm/dL Hct 23.1 L (39.0-53.0) % MCHC 30.4 L (31.0-37.0) g/dL RDW 21.7 H (11.5-15.5) % Plt Count 115 L (150-450) k/uL Neutrophils # 13.7 H (1.3-7.7) k/uL ABG pH 7.63 H* (7.35-7.45) ABG pCO2 24 L (35-45) mmHg ABG HCO3 26 H (21-25) mmol/L ABG Total CO2 26 H (19-24) mmol/L ABG O2 Saturation 99.0 H (94-97) % Sodium (137-145) mmol/L Chloride (98-107) mmol/L BUN (9-20) mg/dL Creatinine (0.66-1.25) mg/dL Glucose (74-99) mg/dL POC Glucose (mg/dL) 148 H (70-110) mg/dL Calcium (8.4-10.2) mg/dL 10/28/23 10/28/23 10/28/23 Range/Units 04:30 11:39 14:53 WBC (3.8-10.6) k/uL RBC (4.30-5.90) m/uL Hgb (13.0-17.5) gm/dL Hct (39.0-53.0) % MCHC (31.0-37.0) g/dL RDW (11.5-15.5) % Plt Count (150-450) k/uL Neutrophils # (1.3-7.7) k/uL ABG pH (7.35-7.45) ABG pCO2 (35-45) mmHg ABG HCO3 (21-25) mmol/L ABG Total CO2 (19-24) mmol/L ABG O2 Saturation (94-97) % Sodium 151 H (137-145) mmol/L Chloride 118 H 113 H (98-107) mmol/L BUN 73 H 70 H (9-20) mg/dL Creatinine 1.33 H (0.66-1.25) mg/dL Glucose 129 H 126 H (74-99) mg/dL POC Glucose (mg/dL) 156 H (70-110) mg/dL Calcium 7.7 L 7.8 L (8.4-10.2) mg/dL Microbiology - Last 24 Hours (Table) 10/26/23 11:00 Gram Stain - Preliminary Paracentesis Fluid Body Fluid Culture - Preliminary Assessment and Plan (1) Burkholderia cepacia infection Current Visit: Yes Status: Acute Code(s): A49.8 - OTHER BACTERIAL INFECTIONS OF UNSPECIFIED SITE SNOMED Code(s): 758709113 (2) Bilateral pneumonia Current Visit: No Status: Acute Code(s): J18.9 - PNEUMONIA, UNSPECIFIED ORGANISM SNOMED Code(s): 150579429 Plan: 1patient presented to hospital with abdominal pain has been diagnosed with incarcerated abdominal hernia s/p open repair and the patient subsequently did have worsening of his respiratory status and mentation requiring intubation now 10/19/2023 now with hypotension elevated white count sputum culture positive for Burkholderia cepacia complex chest x-ray with bilateral basilar infiltrate concerning for nosocomial gram-negative pneumonia 2-patient seem to have shown some clinical improvement and has been extubated, to continue with meropenem 1 g every 8 hours and monitor clinical course closely Dictation was produced using [employer] dictation software. please excuse any grammatical, word or spelling errors. Time with Patient: Less than 30
--- NOTE | 2023-10-29 15:52 | P.PN ---
Subjective Progress Note Date: 10/29/23 Principal diagnosis: Reason for follow-up is pneumonia Patient is a 43-year-old male past medical history significant for hypertension hyperlipidemia alcoholism liver cirrhosis presenting to the hospital on 10/16/2023 for evaluation of abdominal pain, has been diagnosed with a incarcerated umbilical hernia status post open repair patient did have a worsening respiratory status requiring intubation on 10/19/2023 patient did have positive sputum culture with Burkholderia cepacia prompting this consultation. On today's evaluation that is 10/29/2023,the patient remains to be afebrile, patient is on room air not requiring supplemental oxygen and denies any shortness of breath no chest pain or cough.Patient denies having any nausea or vomiting, complaining of some abdominal distention did have diarrhea for the patient have fecal management system however the patient was not getting lactulose as reported by the nursing staff. Patient white count is 18.4 creatinine is 1.27 Objective - Vital Signs Vital signs: Vital Signs Temp 99.2 F 10/29/23 12:40 Pulse 96 10/29/23 12:40 Resp 16 10/29/23 14:30 BP 100/60 10/29/23 12:40 Pulse Ox 96 10/29/23 12:40 FiO2 2 10/28/23 00:00 Intake & Output 10/28/23 10/29/23 10/29/23 18:59 06:59 18:59 Intake Total 581.828 5158 908 Output Total 1900 845 950 Balance -6286.666 5688 -42 Weight 87.3 kg Intake: IV 516 276 238 0.9 240 120 Dextrose 5% in Water 1, 300 000 ml @ 60 mls/hr IV . [id number] [facility] Rx#:[id number] Lactated Ringers 1,000 ml 80 @ 20 mls/hr IV .Q24H [facility] Rx#:[id number] Meropenem 1 gm In Sodium 100 100 Chloride 0.9% 100 ml @ 33 .3 mls/hr IVPB Q8HR [facility] Rx#:[id number] Pressure Bag 36 36 18 Intake, IV Titration 44.165 Amount Norepinephrine 4 mg In 44.165 Sodium Chloride 0.9% 250 ml @ 0.03 MCG/KG/MIN 9. 201 mls/hr IV .Q24H [facility] Rx#:[id number] Oral 2100 360 Blood Product 310 Rc As-1 Unit 310 [id number] Output: Gastric Drainage 500 Urine 650 495 950 Stool 750 350 Other: Voiding Method Indwelling Catheter Indwelling Catheter Indwelling Catheter ABP, PAP, CO, CI - Last Documented Arterial Blood Pressure 109/54 - Exam GENERAL DESCRIPTION: Middle-age male lying in bed in no distress RESPIRATORY SYSTEM: Unlabored breathing , decreased breath sounds at bases HEART: S1 S2 regular rate and rhythm , ABDOMEN: Soft , mild distention EXTREMITIES: edema feet - Labs CBC & Chem 7: 10/29/23 05:32 10/29/23 05:32 Labs: Abnormal Lab Results - Last 24 Hours (Table) 10/22/23 10/28/23 10/28/23 Range/Units 03:08 18:47 23:56 WBC (3.8-10.6) k/uL RBC (4.30-5.90) m/uL Hgb (13.0-17.5) gm/dL Hct (39.0-53.0) % RDW (11.5-15.5) % Plt Count (150-450) k/uL Neutrophils # (1.3-7.7) k/uL Sodium (137-145) mmol/L BUN (9-20) mg/dL Creatinine (0.66-1.25) mg/dL Glucose (74-99) mg/dL POC Glucose (mg/dL) 213 H 131 H (70-110) mg/dL Calcium (8.4-10.2) mg/dL Total Bilirubin (0.2-1.3) mg/dL AST (17-59) U/L Total Protein (6.3-8.2) g/dL Albumin (3.5-5.0) g/dL Crossmatch See Detail 10/29/23 10/29/23 10/29/23 Range/Units 05:32 05:32 05:34 WBC 18.4 H (3.8-10.6) k/uL RBC 2.54 L (4.30-5.90) m/uL Hgb 6.9 L* (13.0-17.5) gm/dL Hct 22.1 L (39.0-53.0) % RDW 21.9 H (11.5-15.5) % Plt Count 111 L (150-450) k/uL Neutrophils # 15.1 H (1.3-7.7) k/uL Sodium 135 L (137-145) mmol/L BUN 66 H (9-20) mg/dL Creatinine 1.27 H (0.66-1.25) mg/dL Glucose 111 H (74-99) mg/dL POC Glucose (mg/dL) 127 H (70-110) mg/dL Calcium 7.5 L (8.4-10.2) mg/dL Total Bilirubin 2.5 H (0.2-1.3) mg/dL AST 88 H (17-59) U/L Total Protein 5.1 L (6.3-8.2) g/dL Albumin 2.7 L (3.5-5.0) g/dL Crossmatch 10/29/23 10/29/23 Range/Units 06:45 12:04 WBC (3.8-10.6) k/uL RBC (4.30-5.90) m/uL Hgb (13.0-17.5) gm/dL Hct (39.0-53.0) % RDW (11.5-15.5) % Plt Count (150-450) k/uL Neutrophils # (1.3-7.7) k/uL Sodium (137-145) mmol/L BUN (9-20) mg/dL Creatinine (0.66-1.25) mg/dL Glucose (74-99) mg/dL POC Glucose (mg/dL) 125 H (70-110) mg/dL Calcium (8.4-10.2) mg/dL Total Bilirubin (0.2-1.3) mg/dL AST (17-59) U/L Total Protein (6.3-8.2) g/dL Albumin (3.5-5.0) g/dL Crossmatch See Detail Microbiology - Last 24 Hours (Table) 10/26/23 11:00 Gram Stain - Preliminary Paracentesis Fluid Body Fluid Culture - Preliminary 10/27/23 16:13 Blood Culture - Preliminary Blood Assessment and Plan (1) Burkholderia cepacia infection Current Visit: Yes Status: Acute Code(s): A49.8 - OTHER BACTERIAL INFECTIONS OF UNSPECIFIED SITE SNOMED Code(s): 192993696 (2) Bilateral pneumonia Current Visit: No Status: Acute Code(s): J18.9 - PNEUMONIA, UNSPECIFIED ORGANISM SNOMED Code(s): 259923584 Plan: 1patient presented to hospital with abdominal pain has been diagnosed with incarcerated abdominal hernia s/p open repair and the patient subsequently did have worsening of his respiratory status and mentation requiring intubation now 10/19/2023 now with hypotension elevated white count sputum culture positive for Burkholderia cepacia complex chest x-ray with bilateral basilar infiltrate concerning for nosocomial gram-negative pneumonia 2-patient to continue with meropenem 1 g every 8 hours for his underlying gram- negative pneumonia keeping in mind worsening of his leukocytosis also noticed to have persistent diarrhea we will check a stool for C. difficile and treat if positive Dictation was produced using [employer] dictation software. please excuse any grammatical, word or spelling errors. Time with Patient: Less than 30
[2023-10-29 16:27] LABS: Glucose,Whole Blood 120 mg/dL (70-110)
--- NOTE | 2023-10-29 19:09 | P.PN ---
Subjective Progress Note Date: 10/29/23 CHIEF COMPLAINT: Incarcerated umbilical hernia HISTORY OF PRESENT ILLNESS: The patient is a 43-year-old male status post repair of incarcerated acute umbilical hernia. Patient has baseline liver cirrhosis with ascites. He has been undergoing paracentesis. He has been transferred out of the intensive care unit on to stepdown. He had fevers over 100.0 not resolving. He is resting comfortably. He has a fecal system. ROS: No reports of nausea and vomiting. No fevers or chills. No new chest pa in. No productive sputum PHYSICAL EXAM: VITAL SIGNS: Reviewed CONSTITUTIONAL: Well developed and in no acute distress. EYES: Conjuctivae without sclera icterus. Extraocular movements grossly intact. HEAD, EARS, NOSE, THROAT: Moist buccal mucosa. Head is atraumatic, normocephalic. Hears conversational speech. No nasal drainage. RESPIRATORY: Non-labored respirations and equal bilateral excursions. CARDIOVASCULAR: Palpable 2+ radial pulses. ABDOMEN: No peritonitis. Diet as tolerated. MUSCULOSKELETAL: No gross deformity of the lower extremities noted. No clubbing. No cyanosis. SKIN: Good skin turgor. Well perfused. NEUROLOGIC: Cranial nerves II through XII grossly intact. No focal or lateralizing signs. PSYCH: Appropriate affect. Alert and oriented to person, place and time. CLINICAL LABS: Reviewed. Hemoglobin down to 6.9 from 7.0, anemia. Admitting hemoglobin 7.9. ASSESSMENT: 1. Incarcerated [place] hernia 2. Anemia of chronic disease, present on admission PLAN: 1. Diet as tolerated. 2. May benefit from blood for anemia. Objective - Vital Signs Vital signs: Vital Signs Temp 98.4 F 10/29/23 16:52 Pulse 96 10/29/23 16:52 Resp 15 10/29/23 16:52 BP 106/58 10/29/23 16:52 Pulse Ox 95 10/29/23 16:52 FiO2 2 10/28/23 00:00 Intake & Output 10/29/23 10/29/23 10/30/23 06:59 18:59 06:59 Intake Total 6396 908 Output Total 845 950 Balance 1531 -42 Weight 87.3 kg Intake: IV 276 238 0.9 240 120 Meropenem 1 gm In Sodium 100 Chloride 0.9% 100 ml @ 33 .3 mls/hr IVPB Q8HR [facility] Rx#:[id number] Pressure Bag 36 18 Oral 2100 360 Blood Product 310 Rc As-1 Unit 310 [id number] Output: Urine 495 950 Stool 350 Other: Voiding Method Indwelling Catheter Indwelling Catheter ABP, PAP, CO, CI - Last Documented Arterial Blood Pressure 109/54 - Labs CBC & Chem 7: 10/29/23 05:32 10/29/23 05:32 Labs: Abnormal Lab Results - Last 24 Hours (Table) 10/22/23 10/28/23 10/29/23 Range/Units 03:08 23:56 05:32 WBC 18.4 H (3.8-10.6) k/uL RBC 2.54 L (4.30-5.90) m/uL Hgb 6.9 L* (13.0-17.5) gm/dL Hct 22.1 L (39.0-53.0) % RDW 21.9 H (11.5-15.5) % Plt Count 111 L (150-450) k/uL Neutrophils # 15.1 H (1.3-7.7) k/uL Sodium (137-145) mmol/L BUN (9-20) mg/dL Creatinine (0.66-1.25) mg/dL Glucose (74-99) mg/dL POC Glucose (mg/dL) 131 H (70-110) mg/dL Calcium (8.4-10.2) mg/dL Total Bilirubin (0.2-1.3) mg/dL AST (17-59) U/L Total Protein (6.3-8.2) g/dL Albumin (3.5-5.0) g/dL Crossmatch See Detail 10/29/23 10/29/23 10/29/23 Range/Units 05:32 05:34 06:45 WBC (3.8-10.6) k/uL RBC (4.30-5.90) m/uL Hgb (13.0-17.5) gm/dL Hct (39.0-53.0) % RDW (11.5-15.5) % Plt Count (150-450) k/uL Neutrophils # (1.3-7.7) k/uL Sodium 135 L (137-145) mmol/L BUN 66 H (9-20) mg/dL Creatinine 1.27 H (0.66-1.25) mg/dL Glucose 111 H (74-99) mg/dL POC Glucose (mg/dL) 127 H (70-110) mg/dL Calcium 7.5 L (8.4-10.2) mg/dL Total Bilirubin 2.5 H (0.2-1.3) mg/dL AST 88 H (17-59) U/L Total Protein 5.1 L (6.3-8.2) g/dL Albumin 2.7 L (3.5-5.0) g/dL Crossmatch See Detail 10/29/23 10/29/23 Range/Units 12:04 16:25 WBC (3.8-10.6) k/uL RBC (4.30-5.90) m/uL Hgb (13.0-17.5) gm/dL Hct (39.0-53.0) % RDW (11.5-15.5) % Plt Count (150-450) k/uL Neutrophils # (1.3-7.7) k/uL Sodium (137-145) mmol/L BUN (9-20) mg/dL Creatinine (0.66-1.25) mg/dL Glucose (74-99) mg/dL POC Glucose (mg/dL) 125 H 120 H (70-110) mg/dL Calcium (8.4-10.2) mg/dL Total Bilirubin (0.2-1.3) mg/dL AST (17-59) U/L Total Protein (6.3-8.2) g/dL Albumin (3.5-5.0) g/dL Crossmatch Microbiology - Last 24 Hours (Table) 10/26/23 11:00 Gram Stain - Preliminary Paracentesis Fluid Body Fluid Culture - Preliminary 10/27/23 16:13 Blood Culture - Preliminary Blood
[2023-10-29 19:59] LABS: Glucose,Whole Blood 145 mg/dL (70-110)
[2023-10-30 06:09] LABS: Glucose,Whole Blood 123 mg/dL (70-110)
[2023-10-30] MEDS: LACTULOSE 20 GM/30 ML CUP PO SCH (08:26)
[2023-10-30 09:00] LABS: Anisocytosis Moderate; Basophils # (A) 0.1 k/uL (0-0.2); Basophils % (A) 0 %; Eosinophils # (A) 0.5 k/uL (0-0.7); Eosinophils % (A) 3 %; HCT 26.6 % (39.0-53.0); HGB 8.3 gm/dL (13.0-17.5); Hypochromasia Moderate; Lymphocytes # (A) 1.9 k/uL (1.0-4.8); Lymphocytes % (A) 10 %; MCH 27.9 pg (25.0-35.0); MCHC 31.3 g/dL (31.0-37.0); Macrocytosis Slight; Mean Platelet Volume 8.6; Monocytes # (A) 0.7 k/uL (0-1.0); Monocytes % (A) 4 %; Neutrophils # (A) 15.5 k/uL (1.3-7.7); Neutrophils % (A) 81 %; Platelet Count 147 k/uL (150-450); Poikilocytosis Slight; RBC 2.99 m/uL (4.30-5.90); RDW 21.4 % (11.5-15.5); WBC 19.2 k/uL (3.8-10.6)
[2023-10-30 09:02] LABS: ALT 34 U/L (4-49); AST 64 U/L (17-59); African American GFR (CKD) 72 (>60 ml/min/1.73 sqM); Albumin 2.6 g/dL (3.5-5.0); Alkaline Phosphatase 73 U/L (38-126); Anion Gap 7 mmol/L; Blood Urea Nitrogen 65 mg/dL (9-20); Calcium 7.4 mg/dL (8.4-10.2); Carbon Dioxide 21 mmol/L (22-30); Chloride 103 mmol/L (98-107); Glucose 115 mg/dL (74-99); Non-African American GFR(CKD) 62 (>60 ml/min/1.73 sqM); Potassium 3.8 mmol/L (3.5-5.1); Sodium 131 mmol/L (137-145); Total Bilirubin 2.7 mg/dL (0.2-1.3); Total Protein 5.4 g/dL (6.3-8.2)
--- NOTE | 2023-10-30 10:46 | P.PN ---
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 He presented to the emergency department on 10/16/23 with a chief complaint of intractable abdominal pain and reports umbilical hernia is now nonreducible. Vital signs upon arrival showed BP 115/69, HR 76, RR 18, T 97.8 F, and SpO2 100% on RA. EKG showed normal sinus rhythm at 63 bpm with no noted T wave or ST abnormalities. CBC showing bicytopenia with Hg 7.9 and Plt 98. Coagulation profile showed PT of 14.7 and INR 1.4. BMP showing Na 133, Cl 110, bicarb of 13, and anion gap of 10, BUN of 35, creatinine 1.65, GFR 51. Blood glucose was 119. Lactic acid was 1.8. Liver profile was unremarkable. Patient was evaluated by general surgeon, he is being admitted to general surgery team with plans to be taken to the OR for open surgical repair of incarcerated umbilical hernia. We were consulted for preoperative medical clearance and p ostoperative medical management. Patient underwent open repair of incarcerated umbilical hernia with umbillectomy on 10/[address] Hair. Renal function continued to worsen. Also noted to be more acidotic. Patient was started on albumin and octreotide. Midodrine was increased and Nephrology was consulted. Patient was started on bicarb drip. Renal function improving. Patient became encephalopathic on 10/18, started on rectal lactulose and transferred to medical ICU. His mentation continued to worsen, and he was intubated on 10/18. Started on Rocephin for concerns of SBP on 10/18. He has required Levophed since being intubated which is being slowly titrated down. CXR showing signs of right sided PNA, pro-mony elevated at 3.62, Rocephin switched to Zosyn on 10/21. Generalized tremors noted on 10/19, CT brain was negative for acute pathology and EEG showed moderate to severe background slowing. Started on Fentanyl drip (10/21-10/22) which improved his tremors, likely related to pain. There was concern for GI bleed as well. Hg downtrending to 6.6 on 10/21 requiring 1 unit PRBC. Feels okay today, no chest pain no abdominal pain, Remains afebrile Diet advance to Follow liquids. Transferred to medical floor. Objective - Vital Signs Vital signs: Vital Signs Temp 98.6 F 10/30/23 08:25 Pulse 99 10/30/23 08:25 Resp 16 10/30/23 08:25 BP 109/67 10/30/23 08:25 Pulse Ox 93 L 10/30/23 08:25 FiO2 2 10/28/23 00:00 Intake & Output 10/29/23 10/30/23 10/30/23 18:59 06:59 18:59 Intake Total 908 1080 0 Output Total 950 900 300 Balance -42 180 -300 Weight 87 kg Intake: IV 238 0.9 120 Meropenem 1 gm In Sodium 100 Chloride 0.9% 100 ml @ 33 .3 mls/hr IVPB Q8HR [facility] Rx#:[id number] Pressure Bag 18 Oral 360 1080 0 Blood Product 310 Rc As-1 Unit 310 [id number] Output: Urine 950 500 300 Stool 400 Other: Voiding Method Indwelling Catheter Indwelling Catheter ABP, PAP, CO, CI - Last Documented Arterial Blood Pressure 109/54 - Exam General: Lethargic, does not appear to be in distress Derm: Warm, dry, jaundice Head: Atraumatic, normocephalic, symmetric Eyes: Scleral icterus, pupils equal and reactive Mouth: No lip lesion, mucus membranes moist Cardiovascular: S1S2 reg, no murmur Lungs: Coarse BS bilateral, no rhonchi, no rales, no accessory muscle use, intubated Abdominal: Distended, nontender to palpation, no guarding, no appreciable organomegaly, midline dressing clean, dry, intact, Ext: Gross muscle atrophy Neuro: Awake alert oriented 3 - Labs CBC & Chem 7: 10/30/23 08:00 10/30/23 08:00 Labs: Abnormal Lab Results - Last 24 Hours (Table) 10/22/23 10/29/23 10/29/23 Range/Units 03:08 06:45 12:04 WBC (3.8-10.6) k/uL RBC (4.30-5.90) m/uL Hgb (13.0-17.5) gm/dL Hct (39.0-53.0) % RDW (11.5-15.5) % Plt Count (150-450) k/uL Neutrophils # (1.3-7.7) k/uL Sodium (137-145) mmol/L Carbon Dioxide (22-30) mmol/L BUN (9-20) mg/dL Creatinine (0.66-1.25) mg/dL Glucose (74-99) mg/dL POC Glucose (mg/dL) 125 H (70-110) mg/dL Calcium (8.4-10.2) mg/dL Total Bilirubin (0.2-1.3) mg/dL AST (17-59) U/L Total Protein (6.3-8.2) g/dL Albumin (3.5-5.0) g/dL Crossmatch See Detail See Detail 10/29/23 10/29/23 10/30/23 Range/Units 16:25 19:57 06:04 WBC (3.8-10.6) k/uL RBC (4.30-5.90) m/uL Hgb (13.0-17.5) gm/dL Hct (39.0-53.0) % RDW (11.5-15.5) % Plt Count (150-450) k/uL Neutrophils # (1.3-7.7) k/uL Sodium (137-145) mmol/L Carbon Dioxide (22-30) mmol/L BUN (9-20) mg/dL Creatinine (0.66-1.25) mg/dL Glucose (74-99) mg/dL POC Glucose (mg/dL) 120 H 145 H 123 H (70-110) mg/dL Calcium (8.4-10.2) mg/dL Total Bilirubin (0.2-1.3) mg/dL AST (17-59) U/L Total Protein (6.3-8.2) g/dL Albumin (3.5-5.0) g/dL Crossmatch 10/30/23 10/30/23 Range/Units 08:00 08:00 WBC 19.2 H (3.8-10.6) k/uL RBC 2.99 L (4.30-5.90) m/uL Hgb 8.3 L (13.0-17.5) gm/dL Hct 26.6 L (39.0-53.0) % RDW 21.4 H (11.5-15.5) % Plt Count 147 L (150-450) k/uL Neutrophils # 15.5 H (1.3-7.7) k/uL Sodium 131 L (137-145) mmol/L Carbon Dioxide 21 L (22-30) mmol/L BUN 65 H (9-20) mg/dL Creatinine 1.39 H (0.66-1.25) mg/dL Glucose 115 H (74-99) mg/dL POC Glucose (mg/dL) (70-110) mg/dL Calcium 7.4 L (8.4-10.2) mg/dL Total Bilirubin 2.7 H (0.2-1.3) mg/dL AST 64 H (17-59) U/L Total Protein 5.4 L (6.3-8.2) g/dL Albumin 2.6 L (3.5-5.0) g/dL Crossmatch Microbiology - Last 24 Hours (Table) 10/26/23 11:00 Gram Stain - Final Paracentesis Fluid Body Fluid Culture - Final 10/27/23 16:13 Blood Culture - Preliminary Blood Assessment and Plan Plan: Ventilator dependent respiratory failure: Extubated,Continue supportive care, continue to monitor.Transferred out of ICU. Septic shock likely secondary to below: Antibiotics as below. BCx, Sputum Cx (10/18) and Paracentesis Cx (10/15) negative. Telemetry monitoring.Continue supportive, On meropenem, WBC 19.2 Ventilator Associated Pneumonia: Started on Zosyn 10/21 should cover for both SBP and pseudomonas. Pro-mony elevated. Sputum Cx collected 10/23 shows few PMN, rare gram negative bacilli.Pulmonary critical care following.Currently on meropenem Suspected spontaneous bacterial peritonitis: Ascitic fluid culture negative. BCx negative. Sputum Cx negative. Acute hepatic encephalopathy: Lactulose 20g PO TID. Acute GI bleed: 1 unit PRBC 10/21. Surgery on board recommending continued monitoring. Protonix 40 mg IV QD. Transfuse if Hg < 7.Hemoglobin 7, transfuse as indicated, Currently hemoglobin 8.3 IVAN, secondary to suspected hepatorenal syndrome, history of CKD stage III: Nephrology recommends continuing LR, midodrine and Sandostatin along with albumin.Creatinine stable at 1.3. Tremors: Likely pain related. CT brain negative. EEG mod-severe encaphalopathy. Improved with Fentanyl. History of advanced liver cirrhosis: Continue Albumin 12.5g IV QD, Midodrine 15 mg PO TID, Octreotide 100mcg subQ TID. Bicytopenia secondary to liver cirrhosis, monitor Elevated INR Incarcerated/strangulated umbilical hernia status post open repair: Management per general surgery Resolved: Metabolic and lactic acidosis Weakness: Consult PTOT Disposition: Transferred although ICU to medical floor, continue supportive care. Consult PTOT.
[2023-10-30 11:20] LABS: Glucose,Whole Blood 133 mg/dL (70-110)
--- NOTE | 2023-10-30 12:30 | P.PN ---
Subjective Progress Note Date: 10/30/23 Principal diagnosis: Reason for follow-up is pneumonia Patient is a 43-year-old male past medical history significant for hypertension hyperlipidemia alcoholism liver cirrhosis presenting to the hospital on 10/16/2023 for evaluation of abdominal pain, has been diagnosed with a incarcerated umbilical hernia status post open repair patient did have a worsening respiratory status requiring intubation on 10/19/2023 patient did have positive sputum culture with Burkholderia cepacia prompting this consultation. On today's evaluation that is 10/30/2023, the patient continues to be afebrile, the patient is on room air and breathing comfortably, the Pt denies having any c hest pain or cough, the patient complaining of some abdominal distention but no vomiting still have the rectal tube no worsening output reported by the nursing staff. Patient white count is 19.2, creat is 1.39 stool for C. difficile requested not completed Objective - Vital Signs Vital signs: Vital Signs Temp 98.6 F 10/30/23 08:25 Pulse 91 10/30/23 11:21 Resp 18 10/30/23 11:21 BP 100/65 10/30/23 11:17 Pulse Ox 97 10/30/23 11:17 FiO2 2 10/28/23 00:00 Intake & Output 10/29/23 10/30/23 10/30/23 18:59 06:59 18:59 Intake Total 908 1080 0 Output Total 950 900 300 Balance -42 180 -300 Weight 87 kg 87 kg Intake: IV 238 0.9 120 Meropenem 1 gm In Sodium 100 Chloride 0.9% 100 ml @ 33 .3 mls/hr IVPB Q8HR [facility] Rx#:[id number] Pressure Bag 18 Oral 360 1080 0 Blood Product 310 Rc As-1 Unit 310 [id number] Output: Urine 950 500 300 Stool 400 Other: Voiding Method Indwelling Catheter Indwelling Catheter Indwelling Catheter ABP, PAP, CO, CI - Last Documented Arterial Blood Pressure 109/54 - Exam GENERAL DESCRIPTION: Middle-age male lying in bed in no distress RESPIRATORY SYSTEM: Unlabored breathing , decreased breath sounds at bases HEART: S1 S2 regular rate and rhythm , ABDOMEN: Soft , mild distention EXTREMITIES: edema feet - Labs CBC & Chem 7: 10/30/23 08:00 10/30/23 08:00 Labs: Abnormal Lab Results - Last 24 Hours (Table) 10/29/23 10/29/23 10/29/23 Range/Units 06:45 16:25 19:57 WBC (3.8-10.6) k/uL RBC (4.30-5.90) m/uL Hgb (13.0-17.5) gm/dL Hct (39.0-53.0) % RDW (11.5-15.5) % Plt Count (150-450) k/uL Neutrophils # (1.3-7.7) k/uL Sodium (137-145) mmol/L Carbon Dioxide (22-30) mmol/L BUN (9-20) mg/dL Creatinine (0.66-1.25) mg/dL Glucose (74-99) mg/dL POC Glucose (mg/dL) 120 H 145 H (70-110) mg/dL Calcium (8.4-10.2) mg/dL Total Bilirubin (0.2-1.3) mg/dL AST (17-59) U/L Total Protein (6.3-8.2) g/dL Albumin (3.5-5.0) g/dL Crossmatch See Detail 10/30/23 10/30/23 10/30/23 Range/Units 06:04 08:00 08:00 WBC 19.2 H (3.8-10.6) k/uL RBC 2.99 L (4.30-5.90) m/uL Hgb 8.3 L (13.0-17.5) gm/dL Hct 26.6 L (39.0-53.0) % RDW 21.4 H (11.5-15.5) % Plt Count 147 L (150-450) k/uL Neutrophils # 15.5 H (1.3-7.7) k/uL Sodium 131 L (137-145) mmol/L Carbon Dioxide 21 L (22-30) mmol/L BUN 65 H (9-20) mg/dL Creatinine 1.39 H (0.66-1.25) mg/dL Glucose 115 H (74-99) mg/dL POC Glucose (mg/dL) 123 H (70-110) mg/dL Calcium 7.4 L (8.4-10.2) mg/dL Total Bilirubin 2.7 H (0.2-1.3) mg/dL AST 64 H (17-59) U/L Total Protein 5.4 L (6.3-8.2) g/dL Albumin 2.6 L (3.5-5.0) g/dL Crossmatch 10/30/23 Range/Units 11:19 WBC (3.8-10.6) k/uL RBC (4.30-5.90) m/uL Hgb (13.0-17.5) gm/dL Hct (39.0-53.0) % RDW (11.5-15.5) % Plt Count (150-450) k/uL Neutrophils # (1.3-7.7) k/uL Sodium (137-145) mmol/L Carbon Dioxide (22-30) mmol/L BUN (9-20) mg/dL Creatinine (0.66-1.25) mg/dL Glucose (74-99) mg/dL POC Glucose (mg/dL) 133 H (70-110) mg/dL Calcium (8.4-10.2) mg/dL Total Bilirubin (0.2-1.3) mg/dL AST (17-59) U/L Total Protein (6.3-8.2) g/dL Albumin (3.5-5.0) g/dL Crossmatch Microbiology - Last 24 Hours (Table) 10/26/23 11:00 Gram Stain - Final Paracentesis Fluid Body Fluid Culture - Final 10/27/23 16:13 Blood Culture - Preliminary Blood Assessment and Plan (1) Burkholderia cepacia infection Current Visit: Yes Status: Acute Code(s): A49.8 - OTHER BACTERIAL INFECTIONS OF UNSPECIFIED SITE SNOMED Code(s): 867498049 (2) Bilateral pneumonia Current Visit: No Status: Acute Code(s): J18.9 - PNEUMONIA, UNSPECIFIED ORGANISM SNOMED Code(s): 311844556 Plan: 1patient presented to hospital with abdominal pain has been diagnosed with incarcerated abdominal hernia s/p open repair and the patient subsequently did have worsening of his respiratory status and mentation requiring intubation now 10/19/2023 now with hypotension elevated white count sputum culture positive for Burkholderia cepacia complex chest x-ray with bilateral basilar infiltrate concerning for nosocomial gram-negative pneumonia 2-patient to continue with meropenem 1 g every 8 hours, the patient continued to have worsening leukocytosis and with diarrhea will need to rule out C. difficile, C. difficile EIA has been requested again we will repeat a CBC with a.m. lab Dictation was produced using [email or web address] dictation software. please excuse any grammatical, word or spelling errors. Time with Patient: Less than 30
--- NOTE | 2023-10-30 14:01 | P.PN ---
Subjective Progress Note Date: 10/30/23 Patient is seen in follow-up for acute kidney injury. Renal function better. Underwent paracentesis October 26, 2023 with 5 L drained. Off Levophed. No new complaints. Vital signs are stable. General: Resting in bed. HEENT: On nasal cannula. LUNGS: Scattered rhonchi. HEART: Rate and Rhythm are regular. ABDOMEN: Distention noted. EXTREMITITES: No edema. Objective - Vital Signs Vital signs: Vital Signs Temp 98.6 F 10/30/23 08:25 Pulse 91 10/30/23 11:21 Resp 18 10/30/23 11:21 BP 100/65 10/30/23 11:17 Pulse Ox 97 10/30/23 11:17 FiO2 2 10/28/23 00:00 Intake & Output 10/29/23 10/30/23 10/30/23 18:59 06:59 18:59 Intake Total 908 1080 0 Output Total 950 900 300 Balance -42 180 -300 Weight 87 kg 87 kg Intake: IV 238 0.9 120 Meropenem 1 gm In Sodium 100 Chloride 0.9% 100 ml @ 33 .3 mls/hr IVPB Q8HR [facility] Rx#:[id number] Pressure Bag 18 Oral 360 1080 0 Blood Product 310 Rc As-1 Unit 310 [id number] Output: Urine 950 500 300 Stool 400 Other: Voiding Method Indwelling Catheter Indwelling Catheter Indwelling Catheter ABP, PAP, CO, CI - Last Documented Arterial Blood Pressure 109/54 - Labs CBC & Chem 7: 10/30/23 08:00 10/30/23 08:00 Labs: Abnormal Lab Results - Last 24 Hours (Table) 10/29/23 10/29/23 10/30/23 Range/Units 16:25 19:57 06:04 WBC (3.8-10.6) k/uL RBC (4.30-5.90) m/uL Hgb (13.0-17.5) gm/dL Hct (39.0-53.0) % RDW (11.5-15.5) % Plt Count (150-450) k/uL Neutrophils # (1.3-7.7) k/uL Sodium (137-145) mmol/L Carbon Dioxide (22-30) mmol/L BUN (9-20) mg/dL Creatinine (0.66-1.25) mg/dL Glucose (74-99) mg/dL POC Glucose (mg/dL) 120 H 145 H 123 H (70-110) mg/dL Calcium (8.4-10.2) mg/dL Total Bilirubin (0.2-1.3) mg/dL AST (17-59) U/L Total Protein (6.3-8.2) g/dL Albumin (3.5-5.0) g/dL 10/30/23 10/30/23 10/30/23 Range/Units 08:00 08:00 11:19 WBC 19.2 H (3.8-10.6) k/uL RBC 2.99 L (4.30-5.90) m/uL Hgb 8.3 L (13.0-17.5) gm/dL Hct 26.6 L (39.0-53.0) % RDW 21.4 H (11.5-15.5) % Plt Count 147 L (150-450) k/uL Neutrophils # 15.5 H (1.3-7.7) k/uL Sodium 131 L (137-145) mmol/L Carbon Dioxide 21 L (22-30) mmol/L BUN 65 H (9-20) mg/dL Creatinine 1.39 H (0.66-1.25) mg/dL Glucose 115 H (74-99) mg/dL POC Glucose (mg/dL) 133 H (70-110) mg/dL Calcium 7.4 L (8.4-10.2) mg/dL Total Bilirubin 2.7 H (0.2-1.3) mg/dL AST 64 H (17-59) U/L Total Protein 5.4 L (6.3-8.2) g/dL Albumin 2.6 L (3.5-5.0) g/dL Microbiology - Last 24 Hours (Table) 10/26/23 11:00 Gram Stain - Final Paracentesis Fluid Body Fluid Culture - Final 10/27/23 16:13 Blood Culture - Preliminary Blood Assessment and Plan Assessment: 1. Acute kidney injury secondary to ATN secondary to hypotension. No evidence of hydronephrosis noted on CAT scan done September 04, 2023. Creatinine peaked at 3.0 this admission -stable at 1.27 today. 2. Alcohol induced liver cirrhosis. 3. Metabolic acidosis secondary to acute kidney injury. Improved. 4. Status post open repair of incarcerated umbilical hernia and embolectomy on October 16, 2023. 5. Hepatic encephalopathy. 6. Acute hypoxic respiratory failure. Extubated October 27, 2023. 7. Ascites status post paracentesis October 26, 2023 with 5 L drained. 8. Hypokalemia from poor intake and diuresis. Being replaced. 9. Hypernatremia from lack of oral water intake and free water diuresis. No mildly hyponatremic. Plan: Encouraged oral intake, including free water. Sodium level now mildly low, consider adding IVF if intake is low vs fluid restriction. Maintain midodrine. Avoid nephrotoxins. Continue to monitor renal function and urine output. Maintain Aldactone.
--- NOTE | 2023-10-30 14:06 | P.PN ---
Subjective Progress Note Date: 10/30/23 Pulmonary consult dated October 19, 2023. 44-year-old male who presented to the emergency department, on October 15, complaining of abdominal pain. The patient has a history of chronic liver disease from alcohol abuse, with cirrhosis and ascites, and need for periodic paracentesis abdominis. The patient has a known history of a umbilical hernia, which she is able to typically reduce, but because he was not able to reduce it, he came in to be evaluated. The patient ended up having surgery, last Thursday, on the , and initially was doing okay. This morning I was called by the surgeon, and my charge nurse in the intensive care unit, to say that the patient was doing poorly, and should be transferred down to the intensive care unit for further monitoring and management. The patient was very lethargic, and looked very unstable, with impending respiratory failure. When I first saw the patient he was on room air, and receiving an IV with 3 ampoules of sodium bicarb in D5W at 80 cc an hour. I asked for stat blood gas, when the patient came to the intensive care unit. His pO2 was 40, pCO2 27, pH is 7.41. After evaluating the patient, I decided to intubate the patient which we did, and place a central line and arterial line, both of which we did. Current laboratory data includes a blood gas showing a pO2 of 393, pCO2 41, pH is 7.26. Saturations are 100%. White count is 18.9, hemoglobin 8.3, hematocrit 26.3, and a platelet count of 156,000. Sodium 137, potassium 4.5, chlorides 106, CO2 14, anion gap 17, BUN 69.6, and creatinine 3. Glucose was 126. Lactic acid was 2.8. Bilirubin was 1.5. Ammonia level was up to 259. Cultures of the ascitic fluid are thus far negative. Chest x-ray shows endotracheal tube to be in good position. Central line is in good position, without complication. Progress note dated October 20, 2023. The patient is seen today in room 263. The patient was intubated, and lined yesterday, for respiratory failure. The patient has a history of chronic liver disease, with cirrhosis, ascites, and encephalopathy. Currently, the patient is on volume assist-control, rate 20, tidal volume 400, FiO2 40%, PEEP of 5. Blood gases show pO2 108, pCO2 28, pH is 7.46. This blood gases consistent with a mild respiratory alkalosis. The patient is getting D5W with 3 ampoules of sodium bicarbonate at 80 cc an hour. The patient is getting norepinephrine at 3 mcg/min, propofol at 50 mcg/kg/min. The patient has been having tremor-like activity, and could be seizing. The brain CT was negative. The patient will have tube feedings beginning today. We have ordered an EEG. In addition, I have asked the nurse to give the patient 2 mg of Ativan, to see if the tremors cease. White count is 13, hemoglobin 7, hematocrit 23, platelet count 106,000. Sodium 138, potassium 3.5, chlorides 111, CO2 17, anion gap 10, BUN 63, creatinine 2.27. Glucose is 160. Ammonia level is down to 49. Albumin is 3.1. Thus far, cultures are negative. The patient's chest x-ray shows the endotracheal tube to be high in the trachea, and have asked respiratory therapy to push it down to 1.5 cm. Progress note dated October 21, 2023. The patient is seen today in room 263. He remains on mechanical ventilator. He is on volume assist-control, rate 20, tidal volume 400, FiO2 40%, PEEP of 5. Blood gases show pO2 of 64, pCO2 37, pH is 7.47. The patient is getting propo fol at 50 mcg/kg/min, D5W with 3 ampoules of bicarbonate at 80 cc an hour, fentanyl drip at 1 mcg/kg/h, vital AF at 29 cc an hour, with a goal of 43 cc an hour. The patient also continues on Rocephin. White count is 10.3, hemoglobin 7, hematocrit 22.8, and platelet count 109,000. Sodium 137, potassium 3.7, chlorides 104, CO2 24, BUN 54, and creatinine 1.76. Glucose is 116. Ammonia level is 56. Calcium is 7.7. Cultures are thus far negative. Chest x-ray is unchanged. There is a small left pleural effusion. NG tube, endotracheal tube, and central venous catheter, are in appropriate positions. Progress note dated October 22, 2023. 43-year-old male seen again in the intensive care unit, room 263. He remains on the mechanical ventilator. The patient's ventilator settings include volume assist-control, rate 20, tidal volume 400, FiO2 40%, PEEP of 5. Blood gases show pO2 68, pCO2 45, pH is 7.41. The patient is on norepinephrine at 9 mcg/min, propofol at 50 mcg/kg/min, lactated Ringer's at 75 cc an hour, and fentanyl at 1 mcg/kg/h. The patient is getting tube feedings with vital AF at 43 cc an hour, which is goal. Microbiologic studies are thus far negative. The patient is on Rocephin. He has received 1 unit of packed red blood cells. Current labs include a white count 10.5, hemoglobin 6.6, hematocrit 22.2, and a platelet count of 97,000. Sodium 138, potassium 3.4, chlorides 106, CO2 26, BUN 53, creatinine 1.78. Glucose is 140. Albumin is 2.8. Total bilirubin is 1.4. Chest x-ray shows air space opacities, in the lung bases, which have worsened. Lines and tubes are in good placement. Note dated October 23, 2023. 43-year-old male seen again in room 263. He remains on mechanical ventilator. Vent settings include volume assist-control, rate 20, tidal volume 400, FiO2 40%, PEEP of 5. Blood gases show pO2 87, pCO2 44, pH is 7.40. The patient is getting lactated Ringer's at 75 cc an hour, propofol at 45 mcg/kg/min, norepinephrine at 7.7 mcg/min, and saline at 10 cc an hour. The patient is also getting vital AF, at 10 cc an hour. He continues on Zosyn. We will check a procalcitonin level. The patient will have a daily interruption of sedation, without a spontaneous breathing trial today. Current labs include a white count of 12.7, hemoglobin 7.8, hematocrit 26, platelet count 75,000. Sodium 138, potassium 4.1, chlorides 105, CO2 26, BUN 47, creatinine 1.35. Glucose is 141. Albumin is 3.1. Cultures thus far negative including blood and sputum. Chest x-ray shows the OG tube, to remain in satisfactory position. There is persistent bibasilar infiltrates and/or atelectasis. Progress note dated October 24, 2023. 43-year-old male seen again in room 263. The patient remains on the mechanical ventilator. He is on volume assist-control, rate 20, tidal volume 400, FiO2 30%, PEEP of 5. Blood gases show pO2 69, pCO2 39, and pH is 7.44. The patient remains on propofol at 20 mcg/kg/min, norepinephrine at 2.4 mcg/min, lactated Ringer's at 50 cc an hour, and saline at 10 cc an hour. Patient is getting vital AF at 20, with a goal at 20 cc an hour. The patient continues on Zosyn. His procalcitonin level was 3.62. He will get 1 dose of Lasix 40 mg IV push. His lactated Ringer's IV, will be made KVO. Current labs include a white count of 17.6, hemoglobin 7.4, hematocrit 24.8, and a platelet count of 98,000. Sodium 142, potassium 3.8, chlorides 107, CO2 26, BUN 51, creatinine 1.36. Calcium is 8.2. Albumin is 3.0. Ammonia level was 22. All cultures are thus far negative. Chest x-ray shows small lung volumes, with basilar infiltrates or atelectasis, and small effusions. Progress note dated October 25, 2023. 43-year-old male seen again in room 263. The patient remains on the ventilator. He is on volume assist-control, rate 20, tidal volume 400, FiO2 30%, PEEP of 5. Blood gases show pO2 of 70, pCO2 39, pH is 7.46. The patient getting lactated Ringer's at 20 cc an hour, norepinephrine at 5.6 mcg/min, and vital AF at 20 cc an hour, which is goal. The patient will have a spontaneous breathing trial today, as he has been off of propofol for some time. His cultures are negative. He continues on Zosyn. I am not hopeful that the patient will be extubated today. White count 19.1, hemoglobin 7.3, hematocrit 23.8, platelet count 105,000. Sodium 143, potassium 3.8, chlorides 109, CO2 26, BUN 62, creatinine 1.60. Glucose 131. Albumin 2.8. Calcium 8.1. Cultures are thus far negative. Chest x-ray shows small lung volumes. Endotracheal tube is in appropriate position in the trachea. There is basilar atelectasis, and small bilateral pleural effusions. On today's evaluation of 10/26/2023, the patient remains intubated on mechanical ventilator. As mentioned, the patient is post repair of incarcerated abdominal/umbilical hernia. The patient is known to have liver cirrhosis secondary to alcoholism. The patient has large ascites in addition. The patient has been off Precedex since 10/24/2023. On today's evaluation, he is extremely lethargic. He is following some simple commands. Unable to cough. Unable to raise his arms against gravity. His serum ammonia level has been measured at 61 and the patient continues to be on lactulose. His last bowel movement was 48 hours ago. In terms of his breathing, the patient is on a assist-control mode of mechanical ventilation at rate of 20, tidal volume of 400, FiO2 30% with a PEEP of 5 with a blood gas showing a pH of 7.47 with a pCO2 of 38 and pO2 of 71. The patient remains on low-dose norepinephrine running at 0.02 mcg/kg/min. Lactated Ringer's running at a rate of. Urine output is adequate at 60 cc. Earlier this morning, the patient was taken off the assist- control mode of mechanical ventilation and placed on a pressure support of 7 and a PEEP of 5 and he was able to generate adequate minute ventilation and tidal volume. He has a CHRIS drain and output is minimal and this was serous in nature. The white cell count is 14.7 with a heme of 7.1 and a platelet count of 102. INR is 1.5, sodium is at 144, BUN is 73 with a creatinine of 1.6 and a sodium levels at 144 and a potassium level is at 3.7. The patient is on IV Zosyn as an empiric antibiotic coverage. Based on all this, and based on the large ascitic fluid, I did a bedside paracentesis and the patient had a total of 5 L of ascitic fluid was aspirated and this will be sent for cultures and analysis. His sputum samples from 10/24/2023 is showing Burkholderia chest x-ray reveals smaller lung volumes along with some small bilateral pleural effusions. The patient is on DuoNeb nebulized treatments [id number]. The patient on midodrine 15 mg p.o. 3 times daily. Low-dose norepinephrine. 10/27/2023, patient remains intubated on the mechanical ventilator. Remains encephalopathic despite some improvement in his ammonia level. The patient serum ammonia level is down to 48 and the patient is currently on lactulose and rifaximin. Noted the patient has a fecal management system in place and is producing adequate amount of bowel movement. Grimaces to painful stimulation. Occasionally follows commands. Very much lethargic. Very much weak. Has a weak cough. May not be able to protect his airway postextubation for that reason we kept him on the mechanical ventilator for now. On today's evaluation, he is showing a less distended abdomen as the patient underwent a paracentesis and the ascitic fluid showed no clear indication for an underlying infection. The cell count of mesenteric fluid was 170. Cultures are still pending for now. The patient remains on pressure control mode of mechanical ventilation at the rate of 50, pressure control of 50, expiratory, 0.8, FiO2 of 30% with a PEEP of 5. Blood gas showed a pH of 7.33 with a pCO2 of 31 and a pO2 of 83. The patient remains off sedative medications. His labs from today showed a white c ell count of 14.2 with a hemoglobin of 7.4 and a platelet count of 100. BUN is 73 with a creatinine 1.47 and a sodium noted at 145 with a potassium level is at 3.6. Serum bicarb is at 22. The chest x-ray findings chronic stable bilateral lower lobe pulmonary infiltrates and the patient remains on broad-spectrum antibiotics and the patient remains on IV meropenem. 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 10/28/23 the patient is being seen for a follow-up. Note that the patient was weaned off mechanical ventilator and the patient was extubated yesterday without any major difficulties. The patient is currently on room air oxygen. No significant respiratory distress. He is much more alert and awake. He is following some simple commands. He is stooling excessively in the stool output in the order of 1000 mL over the past 24 hours. He remains on lactulose 20 g 3 times a day. His serum ammonia level has been downtrending and ammonia level is currently down to 48 sodium levels at 151. Potassium is at 3.7, BUN 73 with a creatinine of 1.33. Glucose is 129. Abdomen is again distended and the patient is having significant abdominal discomfort because of ongoing ascites and abdominal distention. The patient was started on D5 water by nephrology and currently D5 water is running at 60 cc an hour. The patient remains on IV meropenem. Patient is on octreotide. Output from the CHRIS drain is minimal. No pressors. 10/29/2023, the patient is being seen for a follow-up. Awake and alert and communicating. Encephalopathy essentially improving and the patient's ammonia level is considerably down to 24. He continues to have high output stool and lactulose was held today. Paracentesis was done yesterday with a total of 5 L of ascitic fluid being drained. The patient was given IV albumin replacement. BUN is 66 with a creatinine of 1.27 and sodium levels at 135 with a potassium level of 3.6. Hemoglobin is down to 6.9 and a white cell count of 18.4. Patient is currently on no pressors. The patient remains on IV meropenem. The patient remains on a combination of lactulose and Xifaxan. Continues to have edema in all 4 extremities. There is generalized weakness in all 4 extremities. Nevertheless, there is no focal neurological deficits. Level of alertness is improved considerably. 10/30/2023, the patient is being seen for a follow up. Awake and alert and communicating. Abdomen is distended. The patient is currently on room air oxygen. No signs of any respiratory distress. He is stooling. Ammonia level is. BUN is 65 with a creatinine of 1.3. Sodium is at 131, the white cell count at 19.2 with a hemoglobin of 8.3. Remains on IV meropenem. Started on Lasix 40 mg IV every 12 hours. Patient is also on Aldactone. The patient remains on rifaximin and lactulose. He remains on midodrine. No other significant events overnight. Objective - Vital Signs Vital signs: Vital Signs Temp 98.6 F 10/30/23 08:25 Pulse 99 10/30/23 08:25 Resp 16 10/30/23 08:25 BP 109/67 10/30/23 08:25 Pulse Ox 93 L 10/30/23 08:25 FiO2 2 10/28/23 00:00 Intake & Output 10/29/23 10/30/23 10/30/23 18:59 06:59 18:59 Intake Total 908 1080 0 Output Total 950 900 Balance -42 180 0 Weight 87 kg Intake: IV 238 0.9 120 Meropenem 1 gm In Sodium 100 Chloride 0.9% 100 ml @ 33 .3 mls/hr IVPB Q8HR [facility] Rx#:[id number] Pressure Bag 18 Oral 360 1080 0 Blood Product 310 Rc As-1 Unit 310 [id number] Output: Urine 950 500 Stool 400 Other: Voiding Method Indwelling Catheter Indwelling Catheter ABP, PAP, CO, CI - Last Documented Arterial Blood Pressure 109/54 - Exam Comment comfortable, quite debilitated and body mass index of 26.4. Emaciated, cachectic looking and the patient is currently on room air oxygen Head exam was generally normal. There was no scleral icterus or corneal arcus. Mucous membranes were moist. There is obvious temporal wasting. HEENT examination is grossly unremarkable. Mucous membranes are dry. Teeth are in very poor condition Neck supple. Full range of motion. No adenopathy thyromegaly or neck vein distention. Cardiovascular examination reveals regular rhythm rate. S1-S2 normal. No S3 or S4. No discernible murmur noted. Lungs reveal scattered crackles and rhonchi. No wheezes. Breath sounds equal. Abdomen soft, without bowel sounds. No masses. Abdomen is distended and is consistent with underlying ascites. The surgical abdominal wound scar is dry clean and intact. No active drainage. There is a fluid wave and shifting dullness consistent with ascites. Extremities are intact. No cyanosis clubbing or edema. Skin is jaundiced. Neurologic examination arousable when he is communicating and following commands. He has profound weakness in all 4 extremities. - Labs CBC & Chem 7: 10/30/23 08:00 10/30/23 08:00 Labs: Abnormal Lab Results - Last 24 Hours (Table) 10/22/23 10/29/23 10/29/23 Range/Units 03:08 06:45 12:04 WBC (3.8-10.6) k/uL RBC (4.30-5.90) m/uL Hgb (13.0-17.5) gm/dL Hct (39.0-53.0) % RDW (11.5-15.5) % Plt Count (150-450) k/uL Neutrophils # (1.3-7.7) k/uL Sodium (137-145) mmol/L Carbon Dioxide (22-30) mmol/L BUN (9-20) mg/dL Creatinine (0.66-1.25) mg/dL Glucose (74-99) mg/dL POC Glucose (mg/dL) 125 H (70-110) mg/dL Calcium (8.4-10.2) mg/dL Total Bilirubin (0.2-1.3) mg/dL AST (17-59) U/L Total Protein (6.3-8.2) g/dL Albumin (3.5-5.0) g/dL Crossmatch See Detail See Detail 10/29/23 10/29/23 10/30/23 Range/Units 16:25 19:57 06:04 WBC (3.8-10.6) k/uL RBC (4.30-5.90) m/uL Hgb (13.0-17.5) gm/dL Hct (39.0-53.0) % RDW (11.5-15.5) % Plt Count (150-450) k/uL Neutrophils # (1.3-7.7) k/uL Sodium (137-145) mmol/L Carbon Dioxide (22-30) mmol/L BUN (9-20) mg/dL Creatinine (0.66-1.25) mg/dL Glucose (74-99) mg/dL POC Glucose (mg/dL) 120 H 145 H 123 H (70-110) mg/dL Calcium (8.4-10.2) mg/dL Total Bilirubin (0.2-1.3) mg/dL AST (17-59) U/L Total Protein (6.3-8.2) g/dL Albumin (3.5-5.0) g/dL Crossmatch 10/30/23 10/30/23 Range/Units 08:00 08:00 WBC 19.2 H (3.8-10.6) k/uL RBC 2.99 L (4.30-5.90) m/uL Hgb 8.3 L (13.0-17.5) gm/dL Hct 26.6 L (39.0-53.0) % RDW 21.4 H (11.5-15.5) % Plt Count 147 L (150-450) k/uL Neutrophils # 15.5 H (1.3-7.7) k/uL Sodium 131 L (137-145) mmol/L Carbon Dioxide 21 L (22-30) mmol/L BUN 65 H (9-20) mg/dL Creatinine 1.39 H (0.66-1.25) mg/dL Glucose 115 H (74-99) mg/dL POC Glucose (mg/dL) (70-110) mg/dL Calcium 7.4 L (8.4-10.2) mg/dL Total Bilirubin 2.7 H (0.2-1.3) mg/dL AST 64 H (17-59) U/L Total Protein 5.4 L (6.3-8.2) g/dL Albumin 2.6 L (3.5-5.0) g/dL Crossmatch Microbiology - Last 24 Hours (Table) 10/26/23 11:00 Gram Stain - Final Paracentesis Fluid Body Fluid Culture - Final 10/27/23 16:13 Blood Culture - Preliminary Blood Assessment and Plan Plan: Incarcerated umbilical hernia status postsurgical repair and the patient is postop day # 14. Output from CHRIS drain is minimal and the surgical site is dry clean and intact. Alcoholic liver cirrhosis and the patient has both paracentesis done on 10/26/2023 with removal of 5 L of ascitic fluid with appropriate albumin replacement. Another paracentesis was on 10/28/2023 with a total of 5 L of fluid removed. The patient continues to have residual ascites and abdomen is stable and less distended. On Lasix and Aldactone. Acute hypoxic respiratory failure S/P intubation and mechanical ventilation for impending respiratory failure, secondary to fulminant liver failure, October 19, 2023. 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 The patient's chest x-ray findings are stable and the patient is currently on IV meropenem. The patient was extubated on 10/27/2023. The patient is currently on room air oxygen. Chronic liver disease/cirrhosis, and ascites, secondary to previous significant alcohol abuse. No evidence of any bacterial peritonitis Anion gap metabolic acidosis, resolved. Chronic kidney disease, rule out hepatorenal syndrome. Renal function stable for now Severe hyperammonemia and secondary metabolic encephalopathy and hepatic encephalopathy and the patient remains on lactulose. Ammonia level is improving and the patient is currently on lactulose and rifaximin, and ammonia level is improving and the patient's mental status also improving. Lactic acidosis, recovered Leukocytosis, currently on IV meropenem History of hyperlipidemia. History of hypertension, currently hypotensive on low-dose norepinephrine and midodrine History of depression and PTSD. History of chronic tobacco use. Anemia of chronic disease. Severe medical debility secondary above-mentioned comorbidities Plan: Patient currently on room air oxygen. Periodic paracentesis done and the abdomen is less distended, the patient is already undergone 2 paracentesis during this current admission in the intensive care unit. Patient is currently on no pressors Continue midodrine Continue IV meropenem Continue lactulose and rifaximin 550 mg p.o. twice a day, drop the lactulose dose to once a day. Monitor the white cell count Monitor the ammonia level, currently improving, mental status is also improving. Monitor the abdominal wound, output from the CHRIS drain is minimal at this point. General surgery is on the case Soft diet S continue IV Lasix 40 mg IV every 12 hours in combination with Aldactone promethazine for hiccups Will continue to follow and will make further recommendations based on the progress. Should be able to transfer this patient out of the intensive care unit.
[2023-10-30 16:20] LABS: Glucose,Whole Blood 150 mg/dL (70-110)
[2023-10-30] MEDS: HYDROmorphone 1 MG/ML 1 ML SYRINGE IVP PRN (16:37)
[2023-10-30 20:20] LABS: Glucose,Whole Blood 133 mg/dL (70-110)
--- NOTE | 2023-10-30 23:33 | P.PN ---
Subjective Progress Note Date: 10/30/23 CHIEF COMPLAINT: Incarcerated umbilical hernia HISTORY OF PRESENT ILLNESS: The patient is a 43-year-old male status post repair of incarcerated acute umbilical hernia. Patient has baseline liver cirrhosis with ascites. He is having less diarrhea per discussion with his nurse. Physical therapy is at bedside. Patient has not been ambulating much. He is requesting advancement of his diet. Overall, nurse reports diet has been low. ROS: No reports of nausea and vomiting. No fevers or chills. No new chest pain. No productive sputum PHYSICAL EXAM: VITAL SIGNS: Reviewed CONSTITUTIONAL: Well developed and in no acute distress. EYES: Conjuctivae without sclera icterus. Extraocular movements grossly intact. HEAD, EARS, NOSE, THROAT: Moist buccal mucosa. Head is atraumatic, normocephalic . Hears conversational speech. No nasal drainage. RESPIRATORY: Non-labored respirations and equal bilateral excursions. CARDIOVASCULAR: Palpable 2+ radial pulses. ABDOMEN: No peritonitis. Has abdominal ascites. MUSCULOSKELETAL: No gross deformity of the lower extremities noted. No clubbing. No cyanosis. SKIN: Good skin turgor. Well perfused. NEUROLOGIC: Cranial nerves II through XII grossly intact. No focal or lateralizing signs. PSYCH: Appropriate affect. Alert and oriented to person, place and time. CLINICAL LABS: Reviewed. Hemoglobin up 6.9-8.3 after 2 units of blood. WBC e levated 18.4-19.2. ASSESSMENT: 1. Incarcerated [place] hernia 2. Anemia of chronic disease, present on admission 3. Leukocytosis. PLAN: 1. Diet was advanced to low fiber diet as he denies any abdominal pain and diarrhea is resolving. 2. Maintenance paracentesis for abdominal ascites. 3. Physical therapy and Occupational Therapy due to overall global deconditioning. Objective - Vital Signs Vital signs: Vital Signs Temp 97.7 F 10/30/23 20:00 Pulse 85 10/30/23 20:44 Resp 18 10/30/23 20:44 BP 108/63 10/30/23 20:00 Pulse Ox 92 L 10/30/23 20:00 FiO2 2 10/28/23 00:00 Intake & Output 10/30/23 10/30/23 10/31/23 06:59 18:59 06:59 Intake Total 1080 0 Output Total 900 325 525 Balance 180 -325 -525 Weight 87 kg 87 kg Intake: Oral 1080 0 Output: Drainage 25 50 Lower Abdomen 25 50 Urine 500 300 475 Stool 400 Other: Voiding Method Indwelling Catheter Indwelling Catheter Indwelling Catheter ABP, PAP, CO, CI - Last Documented Arterial Blood Pressure 109/54 - Labs CBC & Chem 7: 10/30/23 08:00 10/30/23 08:00 Labs: Abnormal Lab Results - Last 24 Hours (Table) 10/30/23 10/30/23 10/30/23 Range/Units 06:04 08:00 08:00 WBC 19.2 H (3.8-10.6) k/uL RBC 2.99 L (4.30-5.90) m/uL Hgb 8.3 L (13.0-17.5) gm/dL Hct 26.6 L (39.0-53.0) % RDW 21.4 H (11.5-15.5) % Plt Count 147 L (150-450) k/uL Neutrophils # 15.5 H (1.3-7.7) k/uL Sodium 131 L (137-145) mmol/L Carbon Dioxide 21 L (22-30) mmol/L BUN 65 H (9-20) mg/dL Creatinine 1.39 H (0.66-1.25) mg/dL Glucose 115 H (74-99) mg/dL POC Glucose (mg/dL) 123 H (70-110) mg/dL Calcium 7.4 L (8.4-10.2) mg/dL Total Bilirubin 2.7 H (0.2-1.3) mg/dL AST 64 H (17-59) U/L Total Protein 5.4 L (6.3-8.2) g/dL Albumin 2.6 L (3.5-5.0) g/dL 10/30/23 10/30/23 10/30/23 Range/Units 11:19 16:16 20:18 WBC (3.8-10.6) k/uL RBC (4.30-5.90) m/uL Hgb (13.0-17.5) gm/dL Hct (39.0-53.0) % RDW (11.5-15.5) % Plt Count (150-450) k/uL Neutrophils # (1.3-7.7) k/uL Sodium (137-145) mmol/L Carbon Dioxide (22-30) mmol/L BUN (9-20) mg/dL Creatinine (0.66-1.25) mg/dL Glucose (74-99) mg/dL POC Glucose (mg/dL) 133 H 150 H 133 H (70-110) mg/dL Calcium (8.4-10.2) mg/dL Total Bilirubin (0.2-1.3) mg/dL AST (17-59) U/L Total Protein (6.3-8.2) g/dL Albumin (3.5-5.0) g/dL Microbiology - Last 24 Hours (Table) 10/27/23 16:13 Blood Culture - Preliminary Blood 10/26/23 11:00 Gram Stain - Final Paracentesis Fluid Body Fluid Culture - Final
[2023-10-31 00:06] LABS: Glucose,Whole Blood 121 mg/dL (70-110)
[2023-10-31 06:08] LABS: Glucose,Whole Blood 122 mg/dL (70-110)
[2023-10-31 08:02] LABS: Anisocytosis Moderate; Basophils # (A) 0.1 k/uL (0-0.2); Basophils % (A) 0 %; Eosinophils # (A) 0.3 k/uL (0-0.7); Eosinophils % (A) 2 %; HGB 9.2 gm/dL (13.0-17.5); Hypochromasia Moderate; Lymphocytes # (A) 1.6 k/uL (1.0-4.8); Lymphocytes % (A) 8 %; MCH 27.6 pg (25.0-35.0); MCHC 30.6 g/dL (31.0-37.0); MCV 90.3 fL (80.0-100.0); Macrocytosis Slight; Mean Platelet Volume 8.6; Monocytes % (A) 5 %; Neutrophils # (A) 17.3 k/uL (1.3-7.7); Neutrophils % (A) 83 %; Platelet Count 201 k/uL (150-450); RBC 3.32 m/uL (4.30-5.90); RDW 22.2 % (11.5-15.5); WBC 20.7 k/uL (3.8-10.6)
[2023-10-31 08:37] LABS: ALT 29 U/L (4-49); AST 47 U/L (17-59); African American GFR (CKD) 65 (>60 ml/min/1.73 sqM); Albumin 2.8 g/dL (3.5-5.0); Alkaline Phosphatase 73 U/L (38-126); Anion Gap 10 mmol/L; Blood Urea Nitrogen 65 mg/dL (9-20); Calcium 7.6 mg/dL (8.4-10.2); Carbon Dioxide 19 mmol/L (22-30); Chloride 102 mmol/L (98-107); Glucose 98 mg/dL (74-99); Non-African American GFR(CKD) 56 (>60 ml/min/1.73 sqM); Potassium 3.9 mmol/L (3.5-5.1); Sodium 131 mmol/L (137-145); Total Bilirubin 2.9 mg/dL (0.2-1.3); Total Protein 5.9 g/dL (6.3-8.2)
[2023-10-31] MEDS: ALBUMIN HUMAN 25% 50 ML in EMPTY BAG 1 BAG IVPB SCH (10:45)
[2023-10-31] MEDS: ALBUMIN HUMAN 25% 50 ML in EMPTY BAG 1 BAG IVPB ONE (11:41)
--- NOTE | 2023-10-31 11:42 | P.PN ---
Subjective Patient is seen for follow-up for acute kidney injury. S/p paracentesis with 8.8 L of fluid removed. Patient is receiving albumin. Systolic blood pressure 10 8 mmHg. No significant complaints. Serum creatinine at 1.5 today. 24 hour urine output at 975 mL Maintained on midodrine. Blood pressure remains on the lower side. Objective - Vital Signs Vital signs: Vital Signs Temp 98.6 F 10/31/23 07:25 Pulse 83 10/31/23 11:32 Resp 20 10/31/23 07:25 BP 108/62 10/31/23 07:25 Pulse Ox 92 L 10/31/23 07:25 FiO2 2 10/28/23 00:00 Intake & Output 10/30/23 10/31/23 10/31/23 18:59 06:59 18:59 Intake Total 0 Output Total 081 555 1469 Balance -325 -675 -8800 Weight 87 kg 91 kg Intake: Oral 0 Output: Drainage 25 Lower Abdomen 25 Urine 300 675 Other 8800 Other: Voiding Method Indwelling Catheter Indwelling Catheter Indwelling Catheter ABP, PAP, CO, CI - Last Documented Arterial Blood Pressure 109/54 - Exam Patient is awake and comfortable. No acute distress. Examination of the heart S1 and S2 Examination of the lungs bilateral breath sounds are heard Abdomen is soft ,nontender. Examination of lower extremities shows no edema [employer] exam is grossly intact. - Labs CBC & Chem 7: 10/31/23 07:05 10/31/23 07:05 Labs: Abnormal Lab Results - Last 24 Hours (Table) 10/30/23 10/30/23 10/31/23 Range/Units 16:16 20:18 00:04 WBC (3.8-10.6) k/uL RBC (4.30-5.90) m/uL Hgb (13.0-17.5) gm/dL Hct (39.0-53.0) % MCHC (31.0-37.0) g/dL RDW (11.5-15.5) % Neutrophils # (1.3-7.7) k/uL Sodium (137-145) mmol/L Carbon Dioxide (22-30) mmol/L BUN (9-20) mg/dL Creatinine (0.66-1.25) mg/dL POC Glucose (mg/dL) 150 H 133 H 121 H (70-110) mg/dL Calcium (8.4-10.2) mg/dL Total Bilirubin (0.2-1.3) mg/dL Total Protein (6.3-8.2) g/dL Albumin (3.5-5.0) g/dL 10/31/23 10/31/23 10/31/23 Range/Units 06:06 07:05 07:05 WBC 20.7 H (3.8-10.6) k/uL RBC 3.32 L (4.30-5.90) m/uL Hgb 9.2 L (13.0-17.5) gm/dL Hct 30.0 L (39.0-53.0) % MCHC 30.6 L (31.0-37.0) g/dL RDW 22.2 H (11.5-15.5) % Neutrophils # 17.3 H (1.3-7.7) k/uL Sodium 131 L (137-145) mmol/L Carbon Dioxide 19 L (22-30) mmol/L BUN 65 H (9-20) mg/dL Creatinine 1.51 H (0.66-1.25) mg/dL POC Glucose (mg/dL) 122 H (70-110) mg/dL Calcium 7.6 L (8.4-10.2) mg/dL Total Bilirubin 2.9 H (0.2-1.3) mg/dL Total Protein 5.9 L (6.3-8.2) g/dL Albumin 2.8 L (3.5-5.0) g/dL Microbiology - Last 24 Hours (Table) 10/27/23 16:13 Blood Culture - Preliminary Blood 10/26/23 11:00 Gram Stain - Final Paracentesis Fluid Body Fluid Culture - Final Assessment and Plan Assessment: 1. Acute kidney injury, ATN from hypotension versus hepatorenal syndrome. Improved. Maintained on midodrine, Sandostatin. Receiving albumin. No evidence of obstruction on computed tomography scan on 09/04/2023. 2. Non- gap metabolic acidosis associated with acute kidney injury. 3. Mild hyperkalemia associated with acute kidney injury and metabolic acidosis, improved 4. History of EtOH-related liver cirrhosis. 5. Status post open repair of incarcerated umbilical hernia and umbilectomy on 10/16/2023. 6. Ascites status post paracentesis of 8.8 L today 7. Hepatic encephalopathy , improved. Plan: decrease Lasix Repeat labs in a.m. Maintain albumin and midodrine and Sandostatin.
--- NOTE | 2023-10-31 11:55 | P.PN ---
Subjective Progress Note Date: 10/31/23 Pulmonary consult dated October 19, 2023. 44-year-old male who presented to the emergency department, on October 15, complaining of abdominal pain. The patient has a history of chronic liver disease from alcohol abuse, with cirrhosis and ascites, and need for periodic paracentesis abdominis. The patient has a known history of a umbilical hernia, which she is able to typically reduce, but because he was not able to reduce it, he came in to be evaluated. The patient ended up having surgery, last Thursday, on the , and initially was doing okay. This morning I was called by the surgeon, and my charge nurse in the intensive care unit, to say that the patient was doing poorly, and should be transferred down to the intensive care unit for further monitoring and management. The patient was very lethargic, and looked very unstable, with impending respiratory failure. When I first saw the patient he was on room air, and receiving an IV with 3 ampoules of sodium bicarb in D5W at 80 cc an hour. I asked for stat blood gas, when the patient came to the intensive care unit. His pO2 was 40, pCO2 27, pH is 7.41. After evaluating the patient, I decided to intubate the patient which we did, and place a central line and arterial line, both of which we did. Current laboratory data includes a blood gas showing a pO2 of 393, pCO2 41, pH is 7.26. Saturations are 100%. White count is 18.9, hemoglobin 8.3, hematocrit 26.3, and a platelet count of 156,000. Sodium 137, potassium 4.5, chlorides 106, CO2 14, anion gap 17, BUN 69.6, and creatinine 3. Glucose was 126. Lactic acid was 2.8. Bilirubin was 1.5. Ammonia level was up to 259. Cultures of the ascitic fluid are thus far negative. Chest x-ray shows endotracheal tube to be in good position. Central line is in good position, without complication. Progress note dated October 20, 2023. The patient is seen today in room 263. The patient was intubated, and lined yesterday, for respiratory failure. The patient has a history of chronic liver disease, with cirrhosis, ascites, and encephalopathy. Currently, the patient is on volume assist-control, rate 20, tidal volume 400, FiO2 40%, PEEP of 5. Blood gases show pO2 108, pCO2 28, pH is 7.46. This blood gases consistent with a mild respiratory alkalosis. The patient is getting D5W with 3 ampoules of sodium bicarbonate at 80 cc an hour. The patient is getting norepinephrine at 3 mcg/min, propofol at 50 mcg/kg/min. The patient has been having tremor-like activity, and could be seizing. The brain CT was negative. The patient will have tube feedings beginning today. We have ordered an EEG. In addition, I have asked the nurse to give the patient 2 mg of Ativan, to see if the tremors cease. White count is 13, hemoglobin 7, hematocrit 23, platelet count 106,000. Sodium 138, potassium 3.5, chlorides 111, CO2 17, anion gap 10, BUN 63, creatinine 2.27. Glucose is 160. Ammonia level is down to 49. Albumin is 3.1. Thus far, cultures are negative. The patient's chest x-ray shows the endotracheal tube to be high in the trachea, and have asked respiratory therapy to push it down to 1.5 cm. Progress note dated October 21, 2023. The patient is seen today in room 263. He remains on mechanical ventilator. He is on volume assist-control, rate 20, tidal volume 400, FiO2 40%, PEEP of 5. Blood gases show pO2 of 64, pCO2 37, pH is 7.47. The patient is getting propo fol at 50 mcg/kg/min, D5W with 3 ampoules of bicarbonate at 80 cc an hour, fentanyl drip at 1 mcg/kg/h, vital AF at 29 cc an hour, with a goal of 43 cc an hour. The patient also continues on Rocephin. White count is 10.3, hemoglobin 7, hematocrit 22.8, and platelet count 109,000. Sodium 137, potassium 3.7, chlorides 104, CO2 24, BUN 54, and creatinine 1.76. Glucose is 116. Ammonia level is 56. Calcium is 7.7. Cultures are thus far negative. Chest x-ray is unchanged. There is a small left pleural effusion. NG tube, endotracheal tube, and central venous catheter, are in appropriate positions. Progress note dated October 22, 2023. 43-year-old male seen again in the intensive care unit, room 263. He remains on the mechanical ventilator. The patient's ventilator settings include volume assist-control, rate 20, tidal volume 400, FiO2 40%, PEEP of 5. Blood gases show pO2 68, pCO2 45, pH is 7.41. The patient is on norepinephrine at 9 mcg/min, propofol at 50 mcg/kg/min, lactated Ringer's at 75 cc an hour, and fentanyl at 1 mcg/kg/h. The patient is getting tube feedings with vital AF at 43 cc an hour, which is goal. Microbiologic studies are thus far negative. The patient is on Rocephin. He has received 1 unit of packed red blood cells. Current labs include a white count 10.5, hemoglobin 6.6, hematocrit 22.2, and a platelet count of 97,000. Sodium 138, potassium 3.4, chlorides 106, CO2 26, BUN 53, creatinine 1.78. Glucose is 140. Albumin is 2.8. Total bilirubin is 1.4. Chest x-ray shows air space opacities, in the lung bases, which have worsened. Lines and tubes are in good placement. Note dated October 23, 2023. 43-year-old male seen again in room 263. He remains on mechanical ventilator. Vent settings include volume assist-control, rate 20, tidal volume 400, FiO2 40%, PEEP of 5. Blood gases show pO2 87, pCO2 44, pH is 7.40. The patient is getting lactated Ringer's at 75 cc an hour, propofol at 45 mcg/kg/min, norepinephrine at 7.7 mcg/min, and saline at 10 cc an hour. The patient is also getting vital AF, at 10 cc an hour. He continues on Zosyn. We will check a procalcitonin level. The patient will have a daily interruption of sedation, without a spontaneous breathing trial today. Current labs include a white count of 12.7, hemoglobin 7.8, hematocrit 26, platelet count 75,000. Sodium 138, potassium 4.1, chlorides 105, CO2 26, BUN 47, creatinine 1.35. Glucose is 141. Albumin is 3.1. Cultures thus far negative including blood and sputum. Chest x-ray shows the OG tube, to remain in satisfactory position. There is persistent bibasilar infiltrates and/or atelectasis. Progress note dated October 24, 2023. 43-year-old male seen again in room 263. The patient remains on the mechanical ventilator. He is on volume assist-control, rate 20, tidal volume 400, FiO2 30%, PEEP of 5. Blood gases show pO2 69, pCO2 39, and pH is 7.44. The patient remains on propofol at 20 mcg/kg/min, norepinephrine at 2.4 mcg/min, lactated Ringer's at 50 cc an hour, and saline at 10 cc an hour. Patient is getting vital AF at 20, with a goal at 20 cc an hour. The patient continues on Zosyn. His procalcitonin level was 3.62. He will get 1 dose of Lasix 40 mg IV push. His lactated Ringer's IV, will be made KVO. Current labs include a white count of 17.6, hemoglobin 7.4, hematocrit 24.8, and a platelet count of 98,000. Sodium 142, potassium 3.8, chlorides 107, CO2 26, BUN 51, creatinine 1.36. Calcium is 8.2. Albumin is 3.0. Ammonia level was 22. All cultures are thus far negative. Chest x-ray shows small lung volumes, with basilar infiltrates or atelectasis, and small effusions. Progress note dated October 25, 2023. 43-year-old male seen again in room 263. The patient remains on the ventilator. He is on volume assist-control, rate 20, tidal volume 400, FiO2 30%, PEEP of 5. Blood gases show pO2 of 70, pCO2 39, pH is 7.46. The patient getting lactated Ringer's at 20 cc an hour, norepinephrine at 5.6 mcg/min, and vital AF at 20 cc an hour, which is goal. The patient will have a spontaneous breathing trial today, as he has been off of propofol for some time. His cultures are negative. He continues on Zosyn. I am not hopeful that the patient will be extubated today. White count 19.1, hemoglobin 7.3, hematocrit 23.8, platelet count 105,000. Sodium 143, potassium 3.8, chlorides 109, CO2 26, BUN 62, creatinine 1.60. Glucose 131. Albumin 2.8. Calcium 8.1. Cultures are thus far negative. Chest x-ray shows small lung volumes. Endotracheal tube is in appropriate position in the trachea. There is basilar atelectasis, and small bilateral pleural effusions. On today's evaluation of 10/26/2023, the patient remains intubated on mechanical ventilator. As mentioned, the patient is post repair of incarcerated abdominal/umbilical hernia. The patient is known to have liver cirrhosis secondary to alcoholism. The patient has large ascites in addition. The patient has been off Precedex since 10/24/2023. On today's evaluation, he is extremely lethargic. He is following some simple commands. Unable to cough. Unable to raise his arms against gravity. His serum ammonia level has been measured at 61 and the patient continues to be on lactulose. His last bowel movement was 48 hours ago. In terms of his breathing, the patient is on a assist-control mode of mechanical ventilation at rate of 20, tidal volume of 400, FiO2 30% with a PEEP of 5 with a blood gas showing a pH of 7.47 with a pCO2 of 38 and pO2 of 71. The patient remains on low-dose norepinephrine running at 0.02 mcg/kg/min. Lactated Ringer's running at a rate of. Urine output is adequate at 60 cc. Earlier this morning, the patient was taken off the assist- control mode of mechanical ventilation and placed on a pressure support of 7 and a PEEP of 5 and he was able to generate adequate minute ventilation and tidal volume. He has a CHRIS drain and output is minimal and this was serous in nature. The white cell count is 14.7 with a heme of 7.1 and a platelet count of 102. INR is 1.5, sodium is at 144, BUN is 73 with a creatinine of 1.6 and a sodium levels at 144 and a potassium level is at 3.7. The patient is on IV Zosyn as an empiric antibiotic coverage. Based on all this, and based on the large ascitic fluid, I did a bedside paracentesis and the patient had a total of 5 L of ascitic fluid was aspirated and this will be sent for cultures and analysis. His sputum samples from 10/24/2023 is showing Burkholderia chest x-ray reveals smaller lung volumes along with some small bilateral pleural effusions. The patient is on DuoNeb nebulized treatments [id number]. The patient on midodrine 15 mg p.o. 3 times daily. Low-dose norepinephrine. 10/27/2023, patient remains intubated on the mechanical ventilator. Remains encephalopathic despite some improvement in his ammonia level. The patient serum ammonia level is down to 48 and the patient is currently on lactulose and rifaximin. Noted the patient has a fecal management system in place and is producing adequate amount of bowel movement. Grimaces to painful stimulation. Occasionally follows commands. Very much lethargic. Very much weak. Has a weak cough. May not be able to protect his airway postextubation for that reason we kept him on the mechanical ventilator for now. On today's evaluation, he is showing a less distended abdomen as the patient underwent a paracentesis and the ascitic fluid showed no clear indication for an underlying infection. The cell count of mesenteric fluid was 170. Cultures are still pending for now. The patient remains on pressure control mode of mechanical ventilation at the rate of 50, pressure control of 50, expiratory, 0.8, FiO2 of 30% with a PEEP of 5. Blood gas showed a pH of 7.33 with a pCO2 of 31 and a pO2 of 83. The patient remains off sedative medications. His labs from today showed a white c ell count of 14.2 with a hemoglobin of 7.4 and a platelet count of 100. BUN is 73 with a creatinine 1.47 and a sodium noted at 145 with a potassium level is at 3.6. Serum bicarb is at 22. The chest x-ray findings chronic stable bilateral lower lobe pulmonary infiltrates and the patient remains on broad-spectrum antibiotics and the patient remains on IV meropenem. 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 10/28/23 the patient is being seen for a follow-up. Note that the patient was weaned off mechanical ventilator and the patient was extubated yesterday without any major difficulties. The patient is currently on room air oxygen. No significant respiratory distress. He is much more alert and awake. He is following some simple commands. He is stooling excessively in the stool output in the order of 1000 mL over the past 24 hours. He remains on lactulose 20 g 3 times a day. His serum ammonia level has been downtrending and ammonia level is currently down to 48 sodium levels at 151. Potassium is at 3.7, BUN 73 with a creatinine of 1.33. Glucose is 129. Abdomen is again distended and the patient is having significant abdominal discomfort because of ongoing ascites and abdominal distention. The patient was started on D5 water by nephrology and currently D5 water is running at 60 cc an hour. The patient remains on IV meropenem. Patient is on octreotide. Output from the CHRIS drain is minimal. No pressors. 10/29/2023, the patient is being seen for a follow-up. Awake and alert and communicating. Encephalopathy essentially improving and the patient's ammonia level is considerably down to 24. He continues to have high output stool and lactulose was held today. Paracentesis was done yesterday with a total of 5 L of ascitic fluid being drained. The patient was given IV albumin replacement. BUN is 66 with a creatinine of 1.27 and sodium levels at 135 with a potassium level of 3.6. Hemoglobin is down to 6.9 and a white cell count of 18.4. Patient is currently on no pressors. The patient remains on IV meropenem. The patient remains on a combination of lactulose and Xifaxan. Continues to have edema in all 4 extremities. There is generalized weakness in all 4 extremities. Nevertheless, there is no focal neurological deficits. Level of alertness is improved considerably. 10/30/2023, the patient is being seen for a follow up. Awake and alert and communicating. Abdomen is distended. The patient is currently on room air oxygen. No signs of any respiratory distress. He is stooling. Ammonia level is. BUN is 65 with a creatinine of 1.3. Sodium is at 131, the white cell count at 19.2 with a hemoglobin of 8.3. Remains on IV meropenem. Started on Lasix 40 mg IV every 12 hours. Patient is also on Aldactone. The patient remains on rifaximin and lactulose. He remains on midodrine. No other significant events overnight. 10/31/2023, the patient is being seen for a follow-up. The patient has no specific complaints. Abdomen is significant distended and he is having some abdominal discomfort along with massive ascites. Based on that, another paracentesis was done at the bedside and a total of 8.8 L of fluid aspirated and the patient was given IV albumin and total of 25 g. Remains on lactulose. Remains on rifaximin. Hemodynamically stable. Blood pressure is stable. Electrolytes are all stable with a sodium level of 131, serum bicarb is at 19, BUN 65 with a creatinine of 1.5 and a white cell count of 20 with a hemoglobin 9.2. Remains on IV meropenem. Mental status is appropriate and the patient is following commands and answer questions appropriately. Objective - Vital Signs Vital signs: Vital Signs Temp 98.6 F 10/31/23 07:25 Pulse 102 H 10/31/23 07:25 Resp 20 10/31/23 07:25 BP 108/62 10/31/23 07:25 Pulse Ox 92 L 10/31/23 07:25 FiO2 2 10/28/23 00:00 Intake & Output 10/30/23 10/31/23 10/31/23 18:59 06:59 18:59 Intake Total 0 Output Total 325 675 Balance -325 -675 Weight 87 kg 91 kg Intake: Oral 0 Output: Drainage 25 Lower Abdomen 25 Urine 300 675 Other: Voiding Method Indwelling Catheter Indwelling Catheter Indwelling Catheter ABP, PAP, CO, CI - Last Documented Arterial Blood Pressure 109/54 - Exam Comment comfortable, quite debilitated and body mass index of 26.4. Emaciated, cachectic looking and the patient is currently on room air oxygen Head exam was generally normal. There was no scleral icterus or corneal arcus. Mucous membranes were moist. There is obvious temporal wasting. HEENT examination is grossly unremarkable. Mucous membranes are dry. Teeth are in very poor condition Neck supple. Full range of motion. No adenopathy thyromegaly or neck vein distention. Cardiovascular examination reveals regular rhythm rate. S1-S2 normal. No S3 or S4. No discernible murmur noted. Lungs reveal scattered crackles and rhonchi. No wheezes. Breath sounds equal. Abdomen soft, without bowel sounds. No masses. Abdomen is distended and is consistent with underlying ascites. The surgical abdominal wound scar is dry clean and intact. No active drainage. There is a fluid wave and shifting dull ness consistent with ascites. Extremities are intact. No cyanosis clubbing or edema. Skin is jaundiced. Neurologic examination arousable when he is communicating and following commands. He has profound weakness in all 4 extremities. - Labs CBC & Chem 7: 10/31/23 07:05 10/31/23 07:05 Labs: Abnormal Lab Results - Last 24 Hours (Table) 10/30/23 10/30/23 10/30/23 Range/Units 11:19 16:16 20:18 WBC (3.8-10.6) k/uL RBC (4.30-5.90) m/uL Hgb (13.0-17.5) gm/dL Hct (39.0-53.0) % MCHC (31.0-37.0) g/dL RDW (11.5-15.5) % Neutrophils # (1.3-7.7) k/uL Sodium (137-145) mmol/L Carbon Dioxide (22-30) mmol/L BUN (9-20) mg/dL Creatinine (0.66-1.25) mg/dL POC Glucose (mg/dL) 133 H 150 H 133 H (70-110) mg/dL Calcium (8.4-10.2) mg/dL Total Bilirubin (0.2-1.3) mg/dL Total Protein (6.3-8.2) g/dL Albumin (3.5-5.0) g/dL 10/31/23 10/31/23 10/31/23 Range/Units 00:04 06:06 07:05 WBC 20.7 H (3.8-10.6) k/uL RBC 3.32 L (4.30-5.90) m/uL Hgb 9.2 L (13.0-17.5) gm/dL Hct 30.0 L (39.0-53.0) % MCHC 30.6 L (31.0-37.0) g/dL RDW 22.2 H (11.5-15.5) % Neutrophils # 17.3 H (1.3-7.7) k/uL Sodium (137-145) mmol/L Carbon Dioxide (22-30) mmol/L BUN (9-20) mg/dL Creatinine (0.66-1.25) mg/dL POC Glucose (mg/dL) 121 H 122 H (70-110) mg/dL Calcium (8.4-10.2) mg/dL Total Bilirubin (0.2-1.3) mg/dL Total Protein (6.3-8.2) g/dL Albumin (3.5-5.0) g/dL 10/31/23 Range/Units 07:05 WBC (3.8-10.6) k/uL RBC (4.30-5.90) m/uL Hgb (13.0-17.5) gm/dL Hct (39.0-53.0) % MCHC (31.0-37.0) g/dL RDW (11.5-15.5) % Neutrophils # (1.3-7.7) k/uL Sodium 131 L (137-145) mmol/L Carbon Dioxide 19 L (22-30) mmol/L BUN 65 H (9-20) mg/dL Creatinine 1.51 H (0.66-1.25) mg/dL POC Glucose (mg/dL) (70-110) mg/dL Calcium 7.6 L (8.4-10.2) mg/dL Total Bilirubin 2.9 H (0.2-1.3) mg/dL Total Protein 5.9 L (6.3-8.2) g/dL Albumin 2.8 L (3.5-5.0) g/dL Microbiology - Last 24 Hours (Table) 10/27/23 16:13 Blood Culture - Preliminary Blood 10/26/23 11:00 Gram Stain - Final Paracentesis Fluid Body Fluid Culture - Final Assessment and Plan Plan: Incarcerated umbilical hernia status postsurgical repair and the patient is postop day # 15. Output from CHRIS drain is minimal and the surgical site is dry clean and intact. Alcoholic liver cirrhosis and the patient has both paracentesis done on 10/26/2023 with removal of 5 L of ascitic fluid with appropriate albumin replacement. Another paracentesis was on 10/28/2023 with a total of 5 L of fluid removed. Another paracentesis was done on 10/31/2023 with removal of 8 L. Currently on Lasix and Aldactone. Acute hypoxic respiratory failure S/P intubation and mechanical ventilation for impending respiratory failure, secondary to fulminant liver failure, October 19, 2023. 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 The patient's chest x-ray findings are stable and the patient is currently on IV meropenem. The patient was extubated on 10/27/2023. The patient is currently on room air oxygen. Chronic liver disease/cirrhosis, and ascites, secondary to previous significant alcohol abuse. No evidence of any bacterial peritonitis Anion gap metabolic acidosis, resolved. Chronic kidney disease, rule out hepatorenal syndrome. Renal function stable for now Severe hyperammonemia and secondary metabolic encephalopathy and hepatic encephalopathy and the patient remains on lactulose. Ammonia level is improving and the patient is currently on lactulose and rifaximin, and ammonia level is improving and the patient's mental status also improving. Lactic acidosis, recovered Leukocytosis, currently on IV meropenem History of hyperlipidemia. History of hypertension, currently hypotensive on low-dose norepinephrine and midodrine History of depression and PTSD. History of chronic tobacco use. Anemia of chronic disease. Severe medical debility secondary above-mentioned comorbidities Plan: Patient currently on room air oxygen. Another paracentesis was done at bedside and the patient was given IV albumin. Patient is currently on no pressors Continue midodrine Continue IV meropenem Continue lactulose and rifaximin 550 mg p.o. twice a day, drop the lactulose dose to once a day. Monitor the white cell count Monitor the ammonia level, currently improving, mental status is also improving. Monitor the abdominal wound, output from the CHRIS drain is minimal at this point. General surgery is on the case Soft diet continue IV Lasix 40 mg IV every 24 hours in combination with Aldactone promethazine for hiccups Will continue to follow and will make further recommendations based on the progress.
--- NOTE | 2023-10-31 11:56 | P.PCN ---
Date of Procedure: 10/31/23 Operative Findings: Preoperative Diagnosis: Ascites Postoperative Diagnosis: Ascites Procedure(s) Performed: Paracentesis Anesthesia: local Surgeon: Eddie Florez Estimated Blood Loss (ml): 0 Pathology: other Condition: critical Disposition: ICU Operative Findings: A time-out was performed. My hands were washed immediately prior to the procedure. I wore a surgical cap, mask with protective eyewear, sterile gown and sterile gloves throughout the procedure. The area was cleansed and draped in usual sterile fashion using chlorhexidine scrub. Anesthesia was achieved with 1% lidocaine. The right lower quadrant of the abdomen was prepped and draped in a sterile fashion using chlorhexidine scrub. 1% lidocaine was used to numb the skin, soft tissue and peritoneum. The paracentesis catheter was inserted and advanced with negative pressure until 1 cc colored fluid was aspirated. The catheter was then connected to the vaccutainer and 8.8 liters of additional ascitic fluid were drained. The catheter was removed and no leaking was noted. A bandaid was placed over the puncture wound. The patient tolerated the procedure well without any immediate complications. Estimated blood loss was 0.
[2023-10-31 12:04] LABS: Glucose,Whole Blood 141 mg/dL (70-110)
--- NOTE | 2023-10-31 12:17 | P.PN ---
Subjective Progress Note Date: 10/31/23 Patient had large-volume paracentesis today, with postprocedure albumin infusion. Ammonia has trended down. Dilaudid was down titrated. Patient appears to be comfortable lying in bed today with no new complaints. 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 He presented to the emergency department on 10/16/23 with a chief complaint of intractable abdominal pain and reports umbilical hernia is now nonreducible. Vital signs upon arrival showed BP 115/69, HR 76, RR 18, T 97.8 F, and SpO2 100% on RA. EKG showed normal sinus rhythm at 63 bpm with no noted T wave or ST abnormalities. CBC showing bicytopenia with Hg 7.9 and Plt 98. Co agulation profile showed PT of 14.7 and INR 1.4. BMP showing Na 133, Cl 110, bicarb of 13, and anion gap of 10, BUN of 35, creatinine 1.65, GFR 51. Blood glucose was 119. Lactic acid was 1.8. Liver profile was unremarkable. Patient was evaluated by general surgeon, he is being admitted to general surgery team with plans to be taken to the OR for open surgical repair of incarcerated umbilical hernia. We were consulted for preoperative medical clearance and postoperative medical management. Patient underwent open repair of incarcerated umbilical hernia with umbillectomy on 10/[address] Hair. Renal function continued to worsen. Also noted to be more acidotic. Patient was started on albumin and octreotide. Midodrine was increased and Nephrology was consulted. Patient was started on bicarb drip. Renal function improving. Patient became encephalopathic on 10/18, started on rectal lactulose and transferred to medical ICU. His mentation continued to worsen, and he was intubated on 10/18. Started on Rocephin for concerns of SBP on 10/18. He has required Levophed since being intubated which is being slowly titrated down. CXR showing signs of right sided PNA, pro-mony elevated at 3.62, Rocephin switched to Zosyn on 10/21. Generalized tremors noted on 10/19, CT brain was negative for acute pathology and EEG showed moderate to severe background slowing. Started on Fentanyl drip (10/21-10/22) which improved his tremors, likely related to pain. There was concern for GI bleed as well. Hg downtrending to 6.6 on 10/21 requiring 1 unit PRBC. Assessment/plan: Metabolic encephalopathy, acute Secondary to hepatic encephalopathy and sepsis Decompensated liver cirrhosis Acute Kidney Injury, secondary to ATN from hypotension, possibly complicated by hepatorenal syndrome - large volume paracentesis PRN (last on 10/30) - albumin infusion - octreotide 100mg q8h - rifaximin 550mg BID, lactulose 20mg daily - midodrine 10mg AC-TID - lasix 40mg IV daily, Healthcare Associated Pneumonia Septic Shock, now resolved - ongoing meropenem (10/25 - present), completed zosyn (10/21-10/25); this is day 10 of abx - will discuss with ID about discontinuing abx at this time - 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 - BCx have been NGTD - SBP ruled out with < 250PMNs in cirrhotic patient Bicytopenia related to cirrhosis Acute Blood Loss Anemia, expected outcome of surgery - continue to monitor daily - transfuse PRN for Hgb < 7 S/P Incarcerated Hernia Repair - care per surgical team Pt is Full Code Objective - Vital Signs Vital signs: Vital Signs Temp 98.4 F 10/31/23 11:00 Pulse 85 10/31/23 11:42 Resp 18 10/31/23 11:00 BP 105/63 10/31/23 11:00 Pulse Ox 91 L 10/31/23 11:00 FiO2 2 10/28/23 00:00 Intake & Output 10/30/23 10/31/23 10/31/23 18:59 06:59 18:59 Intake Total 0 Output Total 233 509 6011 Balance -332 -929 -4667 Weight 87 kg 91 kg Intake: Oral 0 Output: Drainage 25 Lower Abdomen 25 Urine 300 675 Other 8800 Other: Voiding Method Indwelling Catheter Indwelling Catheter Indwelling Catheter ABP, PAP, CO, CI - Last Documented Arterial Blood Pressure 109/54 - Labs CBC & Chem 7: 10/31/23 07:05 10/31/23 07:05 Labs: Abnormal Lab Results - Last 24 Hours (Table) 10/30/23 10/30/23 10/31/23 Range/Units 16:16 20:18 00:04 WBC (3.8-10.6) k/uL RBC (4.30-5.90) m/uL Hgb (13.0-17.5) gm/dL Hct (39.0-53.0) % MCHC (31.0-37.0) g/dL RDW (11.5-15.5) % Neutrophils # (1.3-7.7) k/uL Sodium (137-145) mmol/L Carbon Dioxide (22-30) mmol/L BUN (9-20) mg/dL Creatinine (0.66-1.25) mg/dL POC Glucose (mg/dL) 150 H 133 H 121 H (70-110) mg/dL Calcium (8.4-10.2) mg/dL Total Bilirubin (0.2-1.3) mg/dL Total Protein (6.3-8.2) g/dL Albumin (3.5-5.0) g/dL 10/31/23 10/31/23 10/31/23 Range/Units 06:06 07:05 07:05 WBC 20.7 H (3.8-10.6) k/uL RBC 3.32 L (4.30-5.90) m/uL Hgb 9.2 L (13.0-17.5) gm/dL Hct 30.0 L (39.0-53.0) % MCHC 30.6 L (31.0-37.0) g/dL RDW 22.2 H (11.5-15.5) % Neutrophils # 17.3 H (1.3-7.7) k/uL Sodium 131 L (137-145) mmol/L Carbon Dioxide 19 L (22-30) mmol/L BUN 65 H (9-20) mg/dL Creatinine 1.51 H (0.66-1.25) mg/dL POC Glucose (mg/dL) 122 H (70-110) mg/dL Calcium 7.6 L (8.4-10.2) mg/dL Total Bilirubin 2.9 H (0.2-1.3) mg/dL Total Protein 5.9 L (6.3-8.2) g/dL Albumin 2.8 L (3.5-5.0) g/dL Microbiology - Last 24 Hours (Table) 10/27/23 16:13 Blood Culture - Preliminary Blood 10/26/23 11:00 Gram Stain - Final Paracentesis Fluid Body Fluid Culture - Final
--- NOTE | 2023-10-31 15:01 | P.PN ---
Subjective Progress Note Date: 10/31/23 Principal diagnosis: Reason for follow-up is pneumonia Patient is a 43-year-old male past medical history significant for hypertension hyperlipidemia alcoholism liver cirrhosis presenting to the hospital on 10/16/2023 for evaluation of abdominal pain, has been diagnosed with a incarcerated umbilical hernia status post open repair patient did have a worsening respiratory status requiring intubation on 10/19/2023 patient did have positive sputum culture with Burkholderia cepacia prompting this consultation. Patient did have a paracentesis at the bedside on 10/31/2023 with removal of 8.8 L fluid On today's evaluation that is 10/31/2023, Patient is afebrile patient is currently on room air and denies having any shortness of breath, the patient denies any chest pain or any worsening cough, the patient denies any nausea vomiting still have abdominal distention and diarrhea with the fecal management system. Patient white count is 20.7 creatinine is 1.15 stool for C. difficile finally done and came back negative Objective - Vital Signs Vital signs: Vital Signs Temp 98.6 F 10/31/23 07:25 Pulse 102 H 10/31/23 07:25 Resp 20 10/31/23 07:25 BP 108/62 10/31/23 07:25 Pulse Ox 92 L 10/31/23 07:25 FiO2 2 10/28/23 00:00 Intake & Output 10/30/23 10/31/23 10/31/23 18:59 06:59 18:59 Intake Total 0 Output Total 325 675 Balance -325 -675 Weight 87 kg 91 kg Intake: Oral 0 Output: Drainage 25 Lower Abdomen 25 Urine 300 675 Other: Voiding Method Indwelling Catheter Indwelling Catheter Indwelling Catheter ABP, PAP, CO, CI - Last Documented Arterial Blood Pressure 109/54 - Exam GENERAL DESCRIPTION: Middle-age male lying in bed in no distress RESPIRATORY SYSTEM: Unlabored breathing , decreased breath sounds at bases HEART: S1 S2 regular rate and rhythm , ABDOMEN: Soft , mild distention EXTREMITIES: edema feet - Labs CBC & Chem 7: 10/31/23 07:05 10/31/23 07:05 Labs: Abnormal Lab Results - Last 24 Hours (Table) 10/30/23 10/30/23 10/30/23 Range/Units 11:19 16:16 20:18 WBC (3.8-10.6) k/uL RBC (4.30-5.90) m/uL Hgb (13.0-17.5) gm/dL Hct (39.0-53.0) % MCHC (31.0-37.0) g/dL RDW (11.5-15.5) % Neutrophils # (1.3-7.7) k/uL Sodium (137-145) mmol/L Carbon Dioxide (22-30) mmol/L BUN (9-20) mg/dL Creatinine (0.66-1.25) mg/dL POC Glucose (mg/dL) 133 H 150 H 133 H (70-110) mg/dL Calcium (8.4-10.2) mg/dL Total Bilirubin (0.2-1.3) mg/dL Total Protein (6.3-8.2) g/dL Albumin (3.5-5.0) g/dL 10/31/23 10/31/23 10/31/23 Range/Units 00:04 06:06 07:05 WBC 20.7 H (3.8-10.6) k/uL RBC 3.32 L (4.30-5.90) m/uL Hgb 9.2 L (13.0-17.5) gm/dL Hct 30.0 L (39.0-53.0) % MCHC 30.6 L (31.0-37.0) g/dL RDW 22.2 H (11.5-15.5) % Neutrophils # 17.3 H (1.3-7.7) k/uL Sodium (137-145) mmol/L Carbon Dioxide (22-30) mmol/L BUN (9-20) mg/dL Creatinine (0.66-1.25) mg/dL POC Glucose (mg/dL) 121 H 122 H (70-110) mg/dL Calcium (8.4-10.2) mg/dL Total Bilirubin (0.2-1.3) mg/dL Total Protein (6.3-8.2) g/dL Albumin (3.5-5.0) g/dL 10/31/23 Range/Units 07:05 WBC (3.8-10.6) k/uL RBC (4.30-5.90) m/uL Hgb (13.0-17.5) gm/dL Hct (39.0-53.0) % MCHC (31.0-37.0) g/dL RDW (11.5-15.5) % Neutrophils # (1.3-7.7) k/uL Sodium 131 L (137-145) mmol/L Carbon Dioxide 19 L (22-30) mmol/L BUN 65 H (9-20) mg/dL Creatinine 1.51 H (0.66-1.25) mg/dL POC Glucose (mg/dL) (70-110) mg/dL Calcium 7.6 L (8.4-10.2) mg/dL Total Bilirubin 2.9 H (0.2-1.3) mg/dL Total Protein 5.9 L (6.3-8.2) g/dL Albumin 2.8 L (3.5-5.0) g/dL Microbiology - Last 24 Hours (Table) 10/27/23 16:13 Blood Culture - Preliminary Blood 10/26/23 11:00 Gram Stain - Final Paracentesis Fluid Body Fluid Culture - Final Assessment and Plan (1) Burkholderia cepacia infection Current Visit: Yes Status: Acute Code(s): A49.8 - OTHER BACTERIAL INFECTIONS OF UNSPECIFIED SITE SNOMED Code(s): 477987289 (2) Bilateral pneumonia Current Visit: No Status: Acute Code(s): J18.9 - PNEUMONIA, UNSPECIFIED ORGANISM SNOMED Code(s): 879767595 Plan: 1patient presented to hospital with abdominal pain has been diagnosed with incarcerated abdominal hernia s/p open repair and the patient subsequently did have worsening of his respiratory status and mentation requiring intubation now 10/19/2023 now with hypotension elevated white count sputum culture positive for Burkholderia cepacia complex chest x-ray with bilateral basilar infiltrate concerning for nosocomial gram-negative pneumonia 2-patient to continue with meropenem 1 g every 8 hours to finish a 10-day course of therapy 3-patient did have persistent slight worsening leukocytosis stool for C. diffi cile finally done and is negative we will add Diflucan repeat CBC with a.m. lab Dictation was produced using [employer] dictation software. please excuse any grammatical, word or spelling errors. Time with Patient: Less than 30
[2023-10-31] MEDS: FLUCONAZOLE 100 MG TAB PO ONE (16:09)
[2023-10-31 16:21] LABS: Glucose,Whole Blood 122 mg/dL (70-110)
--- NOTE | 2023-10-31 18:50 | P.PN ---
Progress Note - Text Progress Note Date: 10/31/23 CHIEF COMPLAINT: Incarcerated umbilical hernia HISTORY OF PRESENT ILLNESS: NAEO. ROS: No reports of nausea and vomiting. No fevers or chills. No new chest pain. No productive sputum PHYSICAL EXAM: VITAL SIGNS: Reviewed CONSTITUTIONAL: Well developed and in no acute distress. EYES: Conjuctivae without sclera icterus. Extraocular movements grossly intact. HEAD, EARS, NOSE, THROAT: Moist buccal mucosa. Head is atraumatic, normocephalic. Hears conversational speech. No nasal drainage. RESPIRATORY: Non-labored respirations and equal bilateral excursions. CARDIOVASCULAR: Palpable 2+ radial pulses. ABDOMEN: No peritonitis. Has abdominal ascites. MUSCULOSKELETAL: No gross deformity of the lower extremities noted. No clubbing. No cyanosis. SKIN: Good skin turgor. Well perfused. NEUROLOGIC: Cranial nerves II through XII grossly intact. No focal or lateralizing signs. PSYCH: Appropriate affect. Alert and oriented to person, place and time. CLINICAL LABS: Reviewed. Hemoglobin up 6.9-8.3 after 2 units of blood. WBC elevated 18.4-19.2. ASSESSMENT: 1. Incarcerated Umbilical hernia 2. Anemia of chronic disease, present on admission 3. Leukocytosis. PLAN: 1. Low Fiber Diet. 2. Maintenance paracentesis for abdominal ascites. 3. Physical therapy and Occupational Therapy due to overall global deconditioning. 4. Continue to monitor WBC. WBC is 20.7. AM labs
[2023-10-31 20:09] LABS: Glucose,Whole Blood 126 mg/dL (70-110)
[2023-11-01 06:04] LABS: Glucose,Whole Blood 126 mg/dL (70-110)
[2023-11-01 08:12] LABS: African American GFR (CKD) 65 (>60 ml/min/1.73 sqM); Anion Gap 8 mmol/L; Blood Urea Nitrogen 63 mg/dL (9-20); Calcium 7.2 mg/dL (8.4-10.2); Carbon Dioxide 21 mmol/L (22-30); Chloride 100 mmol/L (98-107); Glucose 91 mg/dL (74-99); Non-African American GFR(CKD) 56 (>60 ml/min/1.73 sqM); Potassium 3.7 mmol/L (3.5-5.1); Sodium 129 mmol/L (137-145)
[2023-11-01] MEDS: FUROSEMIDE 10 MG/ML 4 ML VIAL IV SCH (08:25)
[2023-11-01 08:44] LABS: Anisocytosis Moderate; Basophils # (A) 0.1 k/uL (0-0.2); Basophils % (A) 0 %; Eosinophils # (A) 0.4 k/uL (0-0.7); Eosinophils % (A) 2 %; HCT 29.5 % (39.0-53.0); HGB 8.9 gm/dL (13.0-17.5); Hypochromasia Moderate; Lymphocytes # (A) 1.6 k/uL (1.0-4.8); Lymphocytes % (A) 8 %; MCH 27.6 pg (25.0-35.0); MCHC 30.3 g/dL (31.0-37.0); MCV 91.1 fL (80.0-100.0); Macrocytosis Slight; Monocytes # (A) 1.6 k/uL (0-1.0); Monocytes % (A) 8 %; Neutrophils # (A) 16.1 k/uL (1.3-7.7); Neutrophils % (A) 79 %; Platelet Count 217 k/uL (150-450); RBC 3.24 m/uL (4.30-5.90); RDW 22.7 % (11.5-15.5); WBC 20.4 k/uL (3.8-10.6)
--- NOTE | 2023-11-01 11:26 | P.PN ---
Subjective Progress Note Date: 11/01/23 Patient appears comfortable today, was arousable to voice, he does note that he feels some pain but acknowledges that he was too lethargic with increased dosing of pain medication and is satisfied with his present dosage. 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 He presented to the emergency department on 10/16/23 with a chief complaint of intractable abdominal pain and reports umbilical hernia is now nonreducible. Vital signs upon arrival showed BP 115/69, HR 76, RR 18, T 97.8 F, and SpO2 100% on RA. EKG showed normal sinus rhythm at 63 bpm with no noted T wave or ST abnormalities. CBC showing bicytopenia with Hg 7.9 and Plt 98. Coagulation profile showed PT of 14.7 and INR 1.4. BMP showing Na 133, Cl 110, bicarb of 13, and anion gap of 10, BUN of 35, creatinine 1.65, GFR 51. Blood glucose was 119. Lactic acid was 1.8. Liver profile was unremarkable. Patient was evaluated by general surgeon, he is being admitted to general surgery team with plans to be taken to the OR for open surgical repair of incarcerated umbi lical hernia. We were consulted for preoperative medical clearance and postoperative medical management. Patient underwent open repair of incarcerated umbilical hernia with umbillectomy on 10/[address] Hair. Renal function continued to worsen. Also noted to be more acidotic. Patient was started on albumin and octreotide. Midodrine was increased and Nephrology was consulted. Patient was started on bicarb drip. Renal function improving. Patient became encephalopathic on 10/18, started on rectal lactulose and transferred to medical ICU. His mentation continued to worsen, and he was in tubated on 10/18. Started on Rocephin for concerns of SBP on 10/18. He has required Levophed since being intubated which is being slowly titrated down. CXR showing signs of right sided PNA, pro-mony elevated at 3.62, Rocephin switched to Zosyn on 10/21. Generalized tremors noted on 10/19, CT brain was negative for acute pathology and EEG showed moderate to severe background slowing. Started on Fentanyl drip (10/21-10/22) which improved his tremors, likely related to pain. There was concern for GI bleed as well. Hg downtrending to 6.6 on 10/21 requiring 1 unit PRBC. Assessment/plan: Metabolic encephalopathy, acute Secondary to hepatic encephalopathy and sepsis Decompensated liver cirrhosis Acute Kidney Injury, secondary to ATN from hypotension, possibly complicated by hepatorenal syndrome - large volume paracentesis PRN (last on 10/30) - albumin infusion - octreotide 100mg q8h - rifaximin 550mg BID, lactulose 20mg daily - midodrine 10mg AC-TID - lasix 40mg IV daily, Healthcare Associated Pneumonia Septic Shock, now resolved - ongoing meropenem (10/25 - present), completed zosyn (10/21-10/25); this is day 10 of abx - will discuss with ID about discontinuing abx at this time - 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 - BCx have been NGTD - SBP ruled out with < 250PMNs in cirrhotic patient Bicytopenia related to cirrhosis Acute Blood Loss Anemia, expected outcome of surgery - continue to monitor daily - transfuse PRN for Hgb < 7 S/P Incarcerated Hernia Repair - care per surgical team Pt is Full Code Objective - Vital Signs Vital signs: Vital Signs Temp 98.7 F 11/01/23 07:31 Pulse 92 11/01/23 11:16 Resp 18 11/01/23 11:16 BP 96/57 11/01/23 07:31 Pulse Ox 92 L 11/01/23 07:31 FiO2 2 10/28/23 00:00 Intake & Output 10/31/23 11/01/23 11/01/23 18:59 06:59 18:59 Intake Total 0 540 118 Output Total 9235 200 Balance -9235 340 118 Weight 77 kg Intake: Oral 0 540 118 Output: Drainage 15 Lower Abdomen 15 Urine 420 200 Other 8800 Other: Voiding Method Indwelling Catheter Indwelling Catheter Indwelling Catheter ABP, PAP, CO, CI - Last Documented Arterial Blood Pressure 109/54 - Labs CBC & Chem 7: 11/01/23 06:36 11/01/23 06:36 Labs: Abnormal Lab Results - Last 24 Hours (Table) 10/31/23 10/31/23 10/31/23 Range/Units 12:02 16:20 19:56 WBC (3.8-10.6) k/uL RBC (4.30-5.90) m/uL Hgb (13.0-17.5) gm/dL Hct (39.0-53.0) % MCHC (31.0-37.0) g/dL RDW (11.5-15.5) % Neutrophils # (1.3-7.7) k/uL Monocytes # (0-1.0) k/uL Sodium (137-145) mmol/L Carbon Dioxide (22-30) mmol/L BUN (9-20) mg/dL Creatinine (0.66-1.25) mg/dL POC Glucose (mg/dL) 141 H 122 H 126 H (70-110) mg/dL Calcium (8.4-10.2) mg/dL C-Reactive Protein (<1.0) mg/dL 11/01/23 11/01/23 11/01/23 Range/Units 05:54 06:36 06:36 WBC 20.4 H (3.8-10.6) k/uL RBC 3.24 L (4.30-5.90) m/uL Hgb 8.9 L (13.0-17.5) gm/dL Hct 29.5 L (39.0-53.0) % MCHC 30.3 L (31.0-37.0) g/dL RDW 22.7 H (11.5-15.5) % Neutrophils # 16.1 H (1.3-7.7) k/uL Monocytes # 1.6 H (0-1.0) k/uL Sodium 129 L (137-145) mmol/L Carbon Dioxide 21 L (22-30) mmol/L BUN 63 H (9-20) mg/dL Creatinine 1.52 H (0.66-1.25) mg/dL POC Glucose (mg/dL) 126 H (70-110) mg/dL Calcium 7.2 L (8.4-10.2) mg/dL C-Reactive Protein 5.0 H (<1.0) mg/dL
[2023-11-01 11:35] LABS: Glucose,Whole Blood 125 mg/dL (70-110)
--- NOTE | 2023-11-01 11:45 | P.PN ---
Subjective Patient is seen for follow-up for acute kidney injury. S/p paracentesis with 8.8 L on 10/31/2023. status post albumin No significant complaints. Serum creatinine at 1.5 today. 24 hour urine output at 975 mL Maintained on midodrine. Blood pressure remains on the lower side. Sodium is 129 today. Lasix was decreased to once a day yesterday. Objective - Vital Signs Vital signs: Vital Signs Temp 98.7 F 11/01/23 07:31 Pulse 106 H 11/01/23 11:28 Resp 16 11/01/23 11:28 BP 89/52 11/01/23 11:28 Pulse Ox 92 L 11/01/23 11:28 FiO2 2 10/28/23 00:00 Intake & Output 10/31/23 11/01/23 11/01/23 18:59 06:59 18:59 Intake Total 0 540 118 Output Total 9235 200 Balance -9235 340 118 Weight 77 kg Intake: Oral 0 540 118 Output: Drainage 15 Lower Abdomen 15 Urine 420 200 Other 8800 Other: Voiding Method Indwelling Catheter Indwelling Catheter Indwelling Catheter ABP, PAP, CO, CI - Last Documented Arterial Blood Pressure 109/54 - Exam Patient is awake and comfortable. No acute distress. Examination of the heart S1 and S2 Examination of the lungs bilateral breath sounds are heard Abdomen is soft ,nontender. 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 - Labs CBC & Chem 7: 11/01/23 06:36 11/01/23 06:36 Labs: Abnormal Lab Results - Last 24 Hours (Table) 10/31/23 10/31/23 10/31/23 Range/Units 12:02 16:20 19:56 WBC (3.8-10.6) k/uL RBC (4.30-5.90) m/uL Hgb (13.0-17.5) gm/dL Hct (39.0-53.0) % MCHC (31.0-37.0) g/dL RDW (11.5-15.5) % Neutrophils # (1.3-7.7) k/uL Monocytes # (0-1.0) k/uL Sodium (137-145) mmol/L Carbon Dioxide (22-30) mmol/L BUN (9-20) mg/dL Creatinine (0.66-1.25) mg/dL POC Glucose (mg/dL) 141 H 122 H 126 H (70-110) mg/dL Calcium (8.4-10.2) mg/dL C-Reactive Protein (<1.0) mg/dL 11/01/23 11/01/23 11/01/23 Range/Units 05:54 06:36 06:36 WBC 20.4 H (3.8-10.6) k/uL RBC 3.24 L (4.30-5.90) m/uL Hgb 8.9 L (13.0-17.5) gm/dL Hct 29.5 L (39.0-53.0) % MCHC 30.3 L (31.0-37.0) g/dL RDW 22.7 H (11.5-15.5) % Neutrophils # 16.1 H (1.3-7.7) k/uL Monocytes # 1.6 H (0-1.0) k/uL Sodium 129 L (137-145) mmol/L Carbon Dioxide 21 L (22-30) mmol/L BUN 63 H (9-20) mg/dL Creatinine 1.52 H (0.66-1.25) mg/dL POC Glucose (mg/dL) 126 H (70-110) mg/dL Calcium 7.2 L (8.4-10.2) mg/dL C-Reactive Protein 5.0 H (<1.0) mg/dL 11/01/23 Range/Units 11:33 WBC (3.8-10.6) k/uL RBC (4.30-5.90) m/uL Hgb (13.0-17.5) gm/dL Hct (39.0-53.0) % MCHC (31.0-37.0) g/dL RDW (11.5-15.5) % Neutrophils # (1.3-7.7) k/uL Monocytes # (0-1.0) k/uL Sodium (137-145) mmol/L Carbon Dioxide (22-30) mmol/L BUN (9-20) mg/dL Creatinine (0.66-1.25) mg/dL POC Glucose (mg/dL) 125 H (70-110) mg/dL Calcium (8.4-10.2) mg/dL C-Reactive Protein (<1.0) mg/dL Assessment and Plan Assessment: 1. Acute kidney injury, ATN from hypotension versus hepatorenal syndrome. Improved. Maintained on midodrine, Sandostatin. status post albumin. No ev idence of obstruction on computed tomography scan on 09/04/2023. 2. Non- gap metabolic acidosis associated with acute kidney injury. 3. Mild hyperkalemia associated with acute kidney injury and metabolic acidosis, improved 4. History of EtOH-related liver cirrhosis. 5. Status post open repair of incarcerated umbilical hernia and umbilectomy on 10/16/2023. 6. Ascites status post paracentesis of 8.8 L on 10/31/2023 7. Hepatic encephalopathy , improved. 8. Hyponatremia associated with underlying liver cirrhosis Plan: continue current dose of IV Lasix. Repeat IV albumin today Repeat labs in a.m. Maintain midodrine and Sandostatin.
--- NOTE | 2023-11-01 12:09 | P.PN ---
Subjective Progress Note Date: 11/01/23 Pulmonary consult dated October 19, 2023. 44-year-old male who presented to the emergency department, on October 15, complaining of abdominal pain. The patient has a history of chronic liver disease from alcohol abuse, with cirrhosis and ascites, and need for periodic paracentesis abdominis. The patient has a known history of a umbilical hernia, which she is able to typically reduce, but because he was not able to reduce it, he came in to be evaluated. The patient ended up having surgery, last Thursday, on the , and initially was doing okay. This morning I was called by the surgeon, and my charge nurse in the intensive care unit, to say that the patient was doing poorly, and should be transferred down to the intensive care unit for further monitoring and management. The patient was very lethargic, and looked very unstable, with impending respiratory failure. When I first saw the patient he was on room air, and receiving an IV with 3 ampoules of sodium bicarb in D5W at 80 cc an hour. I asked for stat blood gas, when the patient came to the intensive care unit. His pO2 was 40, pCO2 27, pH is 7.41. After evaluating the patient, I decided to intubate the patient which we did, and place a central line and arterial line, both of which we did. Current laboratory data includes a blood gas showing a pO2 of 393, pCO2 41, pH is 7.26. Saturations are 100%. White count is 18.9, hemoglobin 8.3, hematocrit 26.3, and a platelet count of 156,000. Sodium 137, potassium 4.5, chlorides 106, CO2 14, anion gap 17, BUN 69.6, and creatinine 3. Glucose was 126. Lactic acid was 2.8. Bilirubin was 1.5. Ammonia level was up to 259. Cultures of the ascitic fluid are thus far negative. Chest x-ray shows endotracheal tube to be in good position. Central line is in good position, without complication. Progress note dated October 20, 2023. The patient is seen today in room 263. The patient was intubated, and lined yesterday, for respiratory failure. The patient has a history of chronic liver disease, with cirrhosis, ascites, and encephalopathy. Currently, the patient is on volume assist-control, rate 20, tidal volume 400, FiO2 40%, PEEP of 5. Blood gases show pO2 108, pCO2 28, pH is 7.46. This blood gases consistent with a mild respiratory alkalosis. The patient is getting D5W with 3 ampoules of sodium bicarbonate at 80 cc an hour. The patient is getting norepinephrine at 3 mcg/min, propofol at 50 mcg/kg/min. The patient has been having tremor-like activity, and could be seizing. The brain CT was negative. The patient will have tube feedings beginning today. We have ordered an EEG. In addition, I have asked the nurse to give the patient 2 mg of Ativan, to see if the tremors cease. White count is 13, hemoglobin 7, hematocrit 23, platelet count 106,000. Sodium 138, potassium 3.5, chlorides 111, CO2 17, anion gap 10, BUN 63, creatinine 2.27. Glucose is 160. Ammonia level is down to 49. Albumin is 3.1. Thus far, cultures are negative. The patient's chest x-ray shows the endotracheal tube to be high in the trachea, and have asked respiratory therapy to push it down to 1.5 cm. Progress note dated October 21, 2023. The patient is seen today in room 263. He remains on mechanical ventilator. He is on volume assist-control, rate 20, tidal volume 400, FiO2 40%, PEEP of 5. Blood gases show pO2 of 64, pCO2 37, pH is 7.47. The patient is getting propo fol at 50 mcg/kg/min, D5W with 3 ampoules of bicarbonate at 80 cc an hour, fentanyl drip at 1 mcg/kg/h, vital AF at 29 cc an hour, with a goal of 43 cc an hour. The patient also continues on Rocephin. White count is 10.3, hemoglobin 7, hematocrit 22.8, and platelet count 109,000. Sodium 137, potassium 3.7, chlorides 104, CO2 24, BUN 54, and creatinine 1.76. Glucose is 116. Ammonia level is 56. Calcium is 7.7. Cultures are thus far negative. Chest x-ray is unchanged. There is a small left pleural effusion. NG tube, endotracheal tube, and central venous catheter, are in appropriate positions. Progress note dated October 22, 2023. 43-year-old male seen again in the intensive care unit, room 263. He remains on the mechanical ventilator. The patient's ventilator settings include volume assist-control, rate 20, tidal volume 400, FiO2 40%, PEEP of 5. Blood gases show pO2 68, pCO2 45, pH is 7.41. The patient is on norepinephrine at 9 mcg/min, propofol at 50 mcg/kg/min, lactated Ringer's at 75 cc an hour, and fentanyl at 1 mcg/kg/h. The patient is getting tube feedings with vital AF at 43 cc an hour, which is goal. Microbiologic studies are thus far negative. The patient is on Rocephin. He has received 1 unit of packed red blood cells. Current labs include a white count 10.5, hemoglobin 6.6, hematocrit 22.2, and a platelet count of 97,000. Sodium 138, potassium 3.4, chlorides 106, CO2 26, BUN 53, creatinine 1.78. Glucose is 140. Albumin is 2.8. Total bilirubin is 1.4. Chest x-ray shows air space opacities, in the lung bases, which have worsened. Lines and tubes are in good placement. Note dated October 23, 2023. 43-year-old male seen again in room 263. He remains on mechanical ventilator. Vent settings include volume assist-control, rate 20, tidal volume 400, FiO2 40%, PEEP of 5. Blood gases show pO2 87, pCO2 44, pH is 7.40. The patient is getting lactated Ringer's at 75 cc an hour, propofol at 45 mcg/kg/min, norepinephrine at 7.7 mcg/min, and saline at 10 cc an hour. The patient is also getting vital AF, at 10 cc an hour. He continues on Zosyn. We will check a procalcitonin level. The patient will have a daily interruption of sedation, without a spontaneous breathing trial today. Current labs include a white count of 12.7, hemoglobin 7.8, hematocrit 26, platelet count 75,000. Sodium 138, potassium 4.1, chlorides 105, CO2 26, BUN 47, creatinine 1.35. Glucose is 141. Albumin is 3.1. Cultures thus far negative including blood and sputum. Chest x-ray shows the OG tube, to remain in satisfactory position. There is persistent bibasilar infiltrates and/or atelectasis. Progress note dated October 24, 2023. 43-year-old male seen again in room 263. The patient remains on the mechanical ventilator. He is on volume assist-control, rate 20, tidal volume 400, FiO2 30%, PEEP of 5. Blood gases show pO2 69, pCO2 39, and pH is 7.44. The patient remains on propofol at 20 mcg/kg/min, norepinephrine at 2.4 mcg/min, lactated Ringer's at 50 cc an hour, and saline at 10 cc an hour. Patient is getting vital AF at 20, with a goal at 20 cc an hour. The patient continues on Zosyn. His procalcitonin level was 3.62. He will get 1 dose of Lasix 40 mg IV push. His lactated Ringer's IV, will be made KVO. Current labs include a white count of 17.6, hemoglobin 7.4, hematocrit 24.8, and a platelet count of 98,000. Sodium 142, potassium 3.8, chlorides 107, CO2 26, BUN 51, creatinine 1.36. Calcium is 8.2. Albumin is 3.0. Ammonia level was 22. All cultures are thus far negative. Chest x-ray shows small lung volumes, with basilar infiltrates or atelectasis, and small effusions. Progress note dated October 25, 2023. 43-year-old male seen again in room 263. The patient remains on the ventilator. He is on volume assist-control, rate 20, tidal volume 400, FiO2 30%, PEEP of 5. Blood gases show pO2 of 70, pCO2 39, pH is 7.46. The patient getting lactated Ringer's at 20 cc an hour, norepinephrine at 5.6 mcg/min, and vital AF at 20 cc an hour, which is goal. The patient will have a spontaneous breathing trial today, as he has been off of propofol for some time. His cultures are negative. He continues on Zosyn. I am not hopeful that the patient will be extubated today. White count 19.1, hemoglobin 7.3, hematocrit 23.8, platelet count 105,000. Sodium 143, potassium 3.8, chlorides 109, CO2 26, BUN 62, creatinine 1.60. Glucose 131. Albumin 2.8. Calcium 8.1. Cultures are thus far negative. Chest x-ray shows small lung volumes. Endotracheal tube is in appropriate position in the trachea. There is basilar atelectasis, and small bilateral pleural effusions. On today's evaluation of 10/26/2023, the patient remains intubated on mechanical ventilator. As mentioned, the patient is post repair of incarcerated abdominal/umbilical hernia. The patient is known to have liver cirrhosis secondary to alcoholism. The patient has large ascites in addition. The patient has been off Precedex since 10/24/2023. On today's evaluation, he is extremely lethargic. He is following some simple commands. Unable to cough. Unable to raise his arms against gravity. His serum ammonia level has been measured at 61 and the patient continues to be on lactulose. His last bowel movement was 48 hours ago. In terms of his breathing, the patient is on a assist-control mode of mechanical ventilation at rate of 20, tidal volume of 400, FiO2 30% with a PEEP of 5 with a blood gas showing a pH of 7.47 with a pCO2 of 38 and pO2 of 71. The patient remains on low-dose norepinephrine running at 0.02 mcg/kg/min. Lactated Ringer's running at a rate of. Urine output is adequate at 60 cc. Earlier this morning, the patient was taken off the assist- control mode of mechanical ventilation and placed on a pressure support of 7 and a PEEP of 5 and he was able to generate adequate minute ventilation and tidal volume. He has a CHRIS drain and output is minimal and this was serous in nature. The white cell count is 14.7 with a heme of 7.1 and a platelet count of 102. INR is 1.5, sodium is at 144, BUN is 73 with a creatinine of 1.6 and a sodium levels at 144 and a potassium level is at 3.7. The patient is on IV Zosyn as an empiric antibiotic coverage. Based on all this, and based on the large ascitic fluid, I did a bedside paracentesis and the patient had a total of 5 L of ascitic fluid was aspirated and this will be sent for cultures and analysis. His sputum samples from 10/24/2023 is showing Burkholderia chest x-ray reveals smaller lung volumes along with some small bilateral pleural effusions. The patient is on DuoNeb nebulized treatments [id number]. The patient on midodrine 15 mg p.o. 3 times daily. Low-dose norepinephrine. 10/27/2023, patient remains intubated on the mechanical ventilator. Remains encephalopathic despite some improvement in his ammonia level. The patient serum ammonia level is down to 48 and the patient is currently on lactulose and rifaximin. Noted the patient has a fecal management system in place and is producing adequate amount of bowel movement. Grimaces to painful stimulation. Occasionally follows commands. Very much lethargic. Very much weak. Has a weak cough. May not be able to protect his airway postextubation for that reason we kept him on the mechanical ventilator for now. On today's evaluation, he is showing a less distended abdomen as the patient underwent a paracentesis and the ascitic fluid showed no clear indication for an underlying infection. The cell count of mesenteric fluid was 170. Cultures are still pending for now. The patient remains on pressure control mode of mechanical ventilation at the rate of 50, pressure control of 50, expiratory, 0.8, FiO2 of 30% with a PEEP of 5. Blood gas showed a pH of 7.33 with a pCO2 of 31 and a pO2 of 83. The patient remains off sedative medications. His labs from today showed a white c ell count of 14.2 with a hemoglobin of 7.4 and a platelet count of 100. BUN is 73 with a creatinine 1.47 and a sodium noted at 145 with a potassium level is at 3.6. Serum bicarb is at 22. The chest x-ray findings chronic stable bilateral lower lobe pulmonary infiltrates and the patient remains on broad-spectrum antibiotics and the patient remains on IV meropenem. 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 10/28/23 the patient is being seen for a follow-up. Note that the patient was weaned off mechanical ventilator and the patient was extubated yesterday without any major difficulties. The patient is currently on room air oxygen. No significant respiratory distress. He is much more alert and awake. He is following some simple commands. He is stooling excessively in the stool output in the order of 1000 mL over the past 24 hours. He remains on lactulose 20 g 3 times a day. His serum ammonia level has been downtrending and ammonia level is currently down to 48 sodium levels at 151. Potassium is at 3.7, BUN 73 with a creatinine of 1.33. Glucose is 129. Abdomen is again distended and the patient is having significant abdominal discomfort because of ongoing ascites and abdominal distention. The patient was started on D5 water by nephrology and currently D5 water is running at 60 cc an hour. The patient remains on IV meropenem. Patient is on octreotide. Output from the CHRIS drain is minimal. No pressors. 10/29/2023, the patient is being seen for a follow-up. Awake and alert and communicating. Encephalopathy essentially improving and the patient's ammonia level is considerably down to 24. He continues to have high output stool and lactulose was held today. Paracentesis was done yesterday with a total of 5 L of ascitic fluid being drained. The patient was given IV albumin replacement. BUN is 66 with a creatinine of 1.27 and sodium levels at 135 with a potassium level of 3.6. Hemoglobin is down to 6.9 and a white cell count of 18.4. Patient is currently on no pressors. The patient remains on IV meropenem. The patient remains on a combination of lactulose and Xifaxan. Continues to have edema in all 4 extremities. There is generalized weakness in all 4 extremities. Nevertheless, there is no focal neurological deficits. Level of alertness is improved considerably. 10/30/2023, the patient is being seen for a follow up. Awake and alert and communicating. Abdomen is distended. The patient is currently on room air oxygen. No signs of any respiratory distress. He is stooling. Ammonia level is. BUN is 65 with a creatinine of 1.3. Sodium is at 131, the white cell count at 19.2 with a hemoglobin of 8.3. Remains on IV meropenem. Started on Lasix 40 mg IV every 12 hours. Patient is also on Aldactone. The patient remains on rifaximin and lactulose. He remains on midodrine. No other significant events overnight. 10/31/2023, the patient is being seen for a follow-up. The patient has no specific complaints. Abdomen is significant distended and he is having some abdominal discomfort along with massive ascites. Based on that, another paracentesis was done at the bedside and a total of 8.8 L of fluid aspirated and the patient was given IV albumin and total of 25 g. Remains on lactulose. Remains on rifaximin. Hemodynamically stable. Blood pressure is stable. Electrolytes are all stable with a sodium level of 131, serum bicarb is at 19, BUN 65 with a creatinine of 1.5 and a white cell count of 20 with a hemoglobin 9.2. Remains on IV meropenem. Mental status is appropriate and the patient is following commands and answer questions appropriately. On 11/01/2023, the patient is post paracentesis. A total of 8.8 L of ascitic fluid was drained from the patient's abdomen. Remains hemodynamically stable. Abdomen is less distended. No respiratory distress. Mental status is adequate. Creatinine is at 1.5 with a BUN of 63 and a sodium level of 129. The patient remains on IV Lasix 40 mg every 24 hours and Aldactone. Remains on a combination of octreotide, lactulose and rifaximin. No new complaints otherwise. The white cell count of 20.4. Hemoglobin 8.9. Platelet count is at 217. The patient is currently on room air oxygen. Objective - Vital Signs Vital signs: Vital Signs Temp 98.7 F 11/01/23 07:31 Pulse 92 11/01/23 08:41 Resp 18 11/01/23 08:41 BP 96/57 11/01/23 07:31 Pulse Ox 92 L 11/01/23 07:31 FiO2 2 10/28/23 00:00 Intake & Output 10/31/23 11/01/23 11/01/23 18:59 06:59 18:59 Intake Total 0 540 Output Total 9235 200 Balance -9235 340 Weight 77 kg Intake: Oral 0 540 Output: Drainage 15 Lower Abdomen 15 Urine 420 200 Other 8800 Other: Voiding Method Indwelling Catheter Indwelling Catheter Indwelling Catheter ABP, PAP, CO, CI - Last Documented Arterial Blood Pressure 109/54 - Exam Comment comfortable, quite debilitated and body mass index of 26.4. Emaciated, cachectic looking and the patient is currently on room air oxygen Head exam was generally normal. There was no scleral icterus or corneal arcus. Mucous membranes were moist. There is obvious temporal wasting. HEENT examination is grossly unremarkable. Mucous membranes are dry. Teeth are in very poor condition Neck supple. Full range of motion. No adenopathy thyromegaly or neck vein distention. Cardiovascular examination reveals regular rhythm rate. S1-S2 normal. No S3 or S4. No discernible murmur noted. Lungs reveal scattered crackles and rhonchi. No wheezes. Breath sounds equal. Abdomen soft, without bowel sounds. No masses. Abdomen is distended and is consistent with underlying ascites. The surgical abdominal wound scar is dry clean and intact. No active drainage. There is a fluid wave and shifting dullness consistent with ascites. Extremities are intact. No cyanosis clubbing or edema. Skin is jaundiced. Neurologic examination arousable when he is communicating and following commands. He has profound weakness in all 4 extremities. - Labs CBC & Chem 7: 11/01/23 06:36 11/01/23 06:36 Labs: Abnormal Lab Results - Last 24 Hours (Table) 10/31/23 10/31/23 10/31/23 Range/Units 12:02 16:20 19:56 WBC (3.8-10.6) k/uL RBC (4.30-5.90) m/uL Hgb (13.0-17.5) gm/dL Hct (39.0-53.0) % MCHC (31.0-37.0) g/dL RDW (11.5-15.5) % Neutrophils # (1.3-7.7) k/uL Monocytes # (0-1.0) k/uL Sodium (137-145) mmol/L Carbon Dioxide (22-30) mmol/L BUN (9-20) mg/dL Creatinine (0.66-1.25) mg/dL POC Glucose (mg/dL) 141 H 122 H 126 H (70-110) mg/dL Calcium (8.4-10.2) mg/dL C-Reactive Protein (<1.0) mg/dL 11/01/23 11/01/23 11/01/23 Range/Units 05:54 06:36 06:36 WBC 20.4 H (3.8-10.6) k/uL RBC 3.24 L (4.30-5.90) m/uL Hgb 8.9 L (13.0-17.5) gm/dL Hct 29.5 L (39.0-53.0) % MCHC 30.3 L (31.0-37.0) g/dL RDW 22.7 H (11.5-15.5) % Neutrophils # 16.1 H (1.3-7.7) k/uL Monocytes # 1.6 H (0-1.0) k/uL Sodium 129 L (137-145) mmol/L Carbon Dioxide 21 L (22-30) mmol/L BUN 63 H (9-20) mg/dL Creatinine 1.52 H (0.66-1.25) mg/dL POC Glucose (mg/dL) 126 H (70-110) mg/dL Calcium 7.2 L (8.4-10.2) mg/dL C-Reactive Protein 5.0 H (<1.0) mg/dL Assessment and Plan Plan: Incarcerated umbilical hernia status postsurgical repair and the patient is postop day # 16. Output from CHRIS drain is minimal and the surgical site is dry clean and intact. Alcoholic liver cirrhosis and the patient has both paracentesis done on 10/26/2023 with removal of 5 L of ascitic fluid with appropriate albumin replacement. Another paracentesis was on 10/28/2023 with a total of 5 L of fluid removed. Another paracentesis was done on 10/31/2023 with removal of 8 L. Currently on Lasix and Aldactone. Abdomen is less distended. Acute hypoxic respiratory failure S/P intubation and mechanical ventilation for impending respiratory failure, secondary to fulminant liver failure, October 19, 2023. 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 The patient's chest x-ray findings are stable and the patient is currently on IV meropenem. The patient was extubated on 10/27/2023. The patient is currently on room air oxygen. Chronic liver disease/cirrhosis, and ascites, secondary to previous significant alcohol abuse. No evidence of any bacterial peritonitis Anion gap metabolic acidosis, resolved. Chronic kidney disease, rule out hepatorenal syndrome. Renal function stable for now Severe hyperammonemia and secondary metabolic encephalopathy and hepatic encephalopathy and the patient remains on lactulose. Ammonia level is improving and the patient is currently on lactulose and rifaximin, and ammonia level is improving and the patient's mental status also improving. Lactic acidosis, recovered Leukocytosis, currently on IV meropenem History of hyperlipidemia. History of hypertension, currently hypotensive on low-dose norepinephrine and midodrine History of depression and PTSD. History of chronic tobacco use. Anemia of chronic disease. Severe medical debility secondary above-mentioned comorbidities Plan: Patient currently on room air oxygen. I performed a total of 3 paracentesis on this patient during this current admiss ion. Last drainage was on 10/31/2023 with a total of 8.8 L. Patient is currently on no pressors Continue midodrine Continue IV meropenem Continue lactulose and rifaximin 550 mg p.o. twice a day, lactulose dose to once a day. Monitor the white cell count Monitor the ammonia level, currently improving, mental status is also improving. Monitor the abdominal wound, output from the CHRIS drain is minimal at this point. General surgery is on the case Soft diet continue IV Lasix 40 mg IV every 24 hours in combination with Aldactone promethazine for hiccups Will continue to follow and will make further recommendations based on the progress.
[2023-11-01] MEDS: FLUCONAZOLE 100 MG TAB PO SCH (12:18)
[2023-11-01] MEDS: ALBUMIN HUMAN 25% 50 ML in EMPTY BAG 1 BAG IVPB ONE (12:26)
--- NOTE | 2023-11-01 14:32 | P.PN ---
Subjective Progress Note Date: 11/01/23 Principal diagnosis: Reason for follow-up is pneumonia Patient is a 43-year-old male past medical history significant for hypertension hyperlipidemia alcoholism liver cirrhosis presenting to the hospital on 10/16/2023 for evaluation of abdominal pain, has been diagnosed with a incarcerated umbilical hernia status post open repair patient did have a worsening respiratory status requiring intubation on 10/19/2023 patient did have positive sputum culture with Burkholderia cepacia prompting this consultation. Patient did have a paracentesis at the bedside on 10/31/2023 with removal of 8.8 L fluid On today's evaluation that is 11/01/2023, patient has been afebrile, patient is breathing comfortably and is currently on room air, patient denies having any significant cough no chest pain shortness of breath, patient denies nausea vomiting did have improvement his diarrhea fecal management system has been discontinued and denies abdominal pain. Patient white count is 20.4 creatinine is 1.52 Objective - Vital Signs Vital signs: Vital Signs Temp 98.7 F 11/01/23 07:31 Pulse 106 H 11/01/23 11:28 Resp 16 11/01/23 11:28 BP 89/52 11/01/23 11:28 Pulse Ox 92 L 11/01/23 11:28 FiO2 2 10/28/23 00:00 Intake & Output 10/31/23 11/01/23 11/01/23 18:59 06:59 18:59 Intake Total 0 540 118 Output Total 9235 200 Balance -9235 340 118 Weight 77 kg Intake: Oral 0 540 118 Output: Drainage 15 Lower Abdomen 15 Urine 420 200 Other 8800 Other: Voiding Method Indwelling Catheter Indwelling Catheter Indwelling Catheter ABP, PAP, CO, CI - Last Documented Arterial Blood Pressure 109/54 - Exam GENERAL DESCRIPTION: Middle-age male lying in bed in no distress RESPIRATORY SYSTEM: Unlabored breathing , decreased breath sounds at bases HEART: S1 S2 regular rate and rhythm , ABDOMEN: Soft , mild distention EXTREMITIES: edema feet - Labs CBC & Chem 7: 11/01/23 06:36 11/01/23 06:36 Labs: Abnormal Lab Results - Last 24 Hours (Table) 10/31/23 10/31/23 10/31/23 Range/Units 12:02 16:20 19:56 WBC (3.8-10.6) k/uL RBC (4.30-5.90) m/uL Hgb (13.0-17.5) gm/dL Hct (39.0-53.0) % MCHC (31.0-37.0) g/dL RDW (11.5-15.5) % Neutrophils # (1.3-7.7) k/uL Monocytes # (0-1.0) k/uL Sodium (137-145) mmol/L Carbon Dioxide (22-30) mmol/L BUN (9-20) mg/dL Creatinine (0.66-1.25) mg/dL POC Glucose (mg/dL) 141 H 122 H 126 H (70-110) mg/dL Calcium (8.4-10.2) mg/dL C-Reactive Protein (<1.0) mg/dL 11/01/23 11/01/23 11/01/23 Range/Units 05:54 06:36 06:36 WBC 20.4 H (3.8-10.6) k/uL RBC 3.24 L (4.30-5.90) m/uL Hgb 8.9 L (13.0-17.5) gm/dL Hct 29.5 L (39.0-53.0) % MCHC 30.3 L (31.0-37.0) g/dL RDW 22.7 H (11.5-15.5) % Neutrophils # 16.1 H (1.3-7.7) k/uL Monocytes # 1.6 H (0-1.0) k/uL Sodium 129 L (137-145) mmol/L Carbon Dioxide 21 L (22-30) mmol/L BUN 63 H (9-20) mg/dL Creatinine 1.52 H (0.66-1.25) mg/dL POC Glucose (mg/dL) 126 H (70-110) mg/dL Calcium 7.2 L (8.4-10.2) mg/dL C-Reactive Protein 5.0 H (<1.0) mg/dL 11/01/23 Range/Units 11:33 WBC (3.8-10.6) k/uL RBC (4.30-5.90) m/uL Hgb (13.0-17.5) gm/dL Hct (39.0-53.0) % MCHC (31.0-37.0) g/dL RDW (11.5-15.5) % Neutrophils # (1.3-7.7) k/uL Monocytes # (0-1.0) k/uL Sodium (137-145) mmol/L Carbon Dioxide (22-30) mmol/L BUN (9-20) mg/dL Creatinine (0.66-1.25) mg/dL POC Glucose (mg/dL) 125 H (70-110) mg/dL Calcium (8.4-10.2) mg/dL C-Reactive Protein (<1.0) mg/dL Assessment and Plan (1) Burkholderia cepacia infection Current Visit: Yes Status: Acute Code(s): A49.8 - OTHER BACTERIAL INFECTIONS OF UNSPECIFIED SITE SNOMED Code(s): 776338137 (2) Bilateral pneumonia Current Visit: No Status: Acute Code(s): J18.9 - PNEUMONIA, UNSPECIFIED ORGANISM SNOMED Code(s): 470473980 Plan: 1patient presented to hospital with abdominal pain has been diagnosed with incarcerated abdominal hernia s/p open repair and the patient subsequently did have worsening of his respiratory status and mentation requiring intubation now 10/19/2023 now with hypotension elevated white count sputum culture positive for Burkholderia cepacia complex chest x-ray with bilateral basilar infiltrate concerning for nosocomial gram-negative pneumonia 2-patient to continue with meropenem 1 g every 8 hours to finish a 10-day course of therapy 3-patient did have persistent slight worsening leukocytosis stool for C. difficile negative, source possibly left subclavian catheter nursing staff has been advised to discontinue the catheter and send the tip for the culture after obtaining a peripheral IV, will add daptomycin for gram-positive coverage vancomycin may not be a good choice because of his kidney function Dictation was produced using Gl[employer] software. please excuse any grammatical, word or spelling errors.
--- NOTE | 2023-11-01 15:03 | P.PN ---
Subjective Progress Note Date: 11/01/23 CHIEF COMPLAINT: Incarcerated umbilical hernia HISTORY OF PRESENT ILLNESS: The patient is a 43-year-old male status post repair of incarcerated acute umbilical hernia. Patient has baseline liver cirrhosis with ascites. Reports tolerating low fiber diet. He has very juices at bedside. Yesterday at least 8.8 L removed via paracentesis. He denies any moderate abdominal pain. ROS: No reports of nausea and vomiting. No fevers or chills. No new chest pain. No productive sputum PHYSICAL EXAM: VITAL SIGNS: Reviewed CONSTITUTIONAL: Well developed and in no acute distress. EYES: Conjuctivae without sclera icterus. Extraocular movements grossly intact. HEAD, EARS, NOSE, THROAT: Moist buccal mucosa. Head is atraumatic, normocephalic. Hears conversational speech. No nasal drainage. RESPIRATORY: Non-labored respirations and equal bilateral excursions. CARDIOVASCULAR: Palpable 2+ radial pulses. ABDOMEN: No peritonitis. Has abdominal ascites. CHRIS serous. MUSCULOSKELETAL: No gross deformity of the lower extremities noted. No clubbing. No cyanosis. SKIN: Good skin turgor. Well perfused. NEUROLOGIC: Cranial nerves II through XII grossly intact. No focal or lateralizing signs. PSYCH: Appropriate affect. Alert and oriented to person, place and time. CLINICAL LABS: Reviewed. WBC up from 19.2-20.4. ASSESSMENT: 1. Incarcerated [place] hernia 2. Anemia of chronic disease, present on admission 3. Leukocytosis. PLAN: 1. Continue low fiber diet. 2. Agreed to schedule paracentesis to minimize risk of recurrent hernia. 3. Monitor hemoglobin and leukocytosis. Objective - Vital Signs Vital signs: Vital Signs Temp 98.7 F 11/01/23 07:31 Pulse 106 H 11/01/23 11:28 Resp 16 11/01/23 11:28 BP 89/52 11/01/23 11:28 Pulse Ox 92 L 11/01/23 11:28 FiO2 2 10/28/23 00:00 Intake & Output 10/31/23 11/01/23 11/01/23 18:59 06:59 18:59 Intake Total 0 540 218 Output Total 9235 200 Balance -9235 340 218 Weight 77 kg Intake: IV 100 Meropenem 1 gm In Sodium 100 Chloride 0.9% 100 ml @ 33 .3 mls/hr IVPB Q8HR [facility] Rx#:[id number] Oral 0 540 118 Output: Drainage 15 Lower Abdomen 15 Urine 420 200 Other 8800 Other: Voiding Method Indwelling Catheter Indwelling Catheter Indwelling Catheter ABP, PAP, CO, CI - Last Documented Arterial Blood Pressure 109/54 - Labs CBC & Chem 7: 11/01/23 06:36 11/01/23 06:36 Labs: Abnormal Lab Results - Last 24 Hours (Table) 10/31/23 10/31/23 11/01/23 Range/Units 16:20 19:56 05:54 WBC (3.8-10.6) k/uL RBC (4.30-5.90) m/uL Hgb (13.0-17.5) gm/dL Hct (39.0-53.0) % MCHC (31.0-37.0) g/dL RDW (11.5-15.5) % Neutrophils # (1.3-7.7) k/uL Monocytes # (0-1.0) k/uL Sodium (137-145) mmol/L Carbon Dioxide (22-30) mmol/L BUN (9-20) mg/dL Creatinine (0.66-1.25) mg/dL POC Glucose (mg/dL) 122 H 126 H 126 H (70-110) mg/dL Calcium (8.4-10.2) mg/dL C-Reactive Protein (<1.0) mg/dL 11/01/23 11/01/23 11/01/23 Range/Units 06:36 06:36 11:33 WBC 20.4 H (3.8-10.6) k/uL RBC 3.24 L (4.30-5.90) m/uL Hgb 8.9 L (13.0-17.5) gm/dL Hct 29.5 L (39.0-53.0) % MCHC 30.3 L (31.0-37.0) g/dL RDW 22.7 H (11.5-15.5) % Neutrophils # 16.1 H (1.3-7.7) k/uL Monocytes # 1.6 H (0-1.0) k/uL Sodium 129 L (137-145) mmol/L Carbon Dioxide 21 L (22-30) mmol/L BUN 63 H (9-20) mg/dL Creatinine 1.52 H (0.66-1.25) mg/dL POC Glucose (mg/dL) 125 H (70-110) mg/dL Calcium 7.2 L (8.4-10.2) mg/dL C-Reactive Protein 5.0 H (<1.0) mg/dL
[2023-11-01 16:05] LABS: Glucose,Whole Blood 117 mg/dL (70-110)
[2023-11-01] MEDS: DAPTOmycin 500 MG in SODIUM CHLORIDE 0.9% 50 ML IVPB SCH (17:33)
[2023-11-01 21:01] LABS: Glucose,Whole Blood 126 mg/dL (70-110)
[2023-11-02 06:19] LABS: Glucose,Whole Blood 110 mg/dL (70-110)
[2023-11-02 08:49] LABS: ALT 20 U/L (4-49); AST 33 U/L (17-59); African American GFR (CKD) 63 (>60 ml/min/1.73 sqM); Albumin 2.6 g/dL (3.5-5.0); Alkaline Phosphatase 63 U/L (38-126); Anion Gap 9 mmol/L; Bilirubin, Conjugated 0.2 mg/dL (0.0-0.3); Bilirubin, Delta 1.2 mg/dL (0.0-0.2); Bilirubin,Unconjugated 1.8 mg/dL (0.0-1.1); Blood Urea Nitrogen 63 mg/dL (9-20); Calcium 7.5 mg/dL (8.4-10.2); Carbon Dioxide 20 mmol/L (22-30); Chloride 100 mmol/L (98-107); Glucose 100 mg/dL (74-99); Magnesium 2.5 mg/dL (1.6-2.3); Non-African American GFR(CKD) 54 (>60 ml/min/1.73 sqM); Potassium 4.1 mmol/L (3.5-5.1); Sodium 129 mmol/L (137-145); Total Bilirubin 3.2 mg/dL (0.2-1.3); Total Protein 5.8 g/dL (6.3-8.2)
[2023-11-02 08:51] LABS: Anisocytosis Moderate; Basophils # (A) 0.1 k/uL (0-0.2); Basophils % (A) 0 %; Eosinophils # (A) 0.2 k/uL (0-0.7); Eosinophils % (A) 1 %; HCT 29.5 % (39.0-53.0); HGB 8.7 gm/dL (13.0-17.5); Hypochromasia Moderate; Lymphocytes # (A) 1.6 k/uL (1.0-4.8); Lymphocytes % (A) 8 %; MCH 26.8 pg (25.0-35.0); MCHC 29.5 g/dL (31.0-37.0); MCV 90.9 fL (80.0-100.0); Macrocytosis Slight; Mean Platelet Volume 8.7; Monocytes # (A) 1.7 k/uL (0-1.0); Monocytes % (A) 9 %; Neutrophils # (A) 14.8 k/uL (1.3-7.7); Neutrophils % (A) 79 %; Platelet Count 252 k/uL (150-450); RBC 3.25 m/uL (4.30-5.90); RDW 23.5 % (11.5-15.5); WBC 18.8 k/uL (3.8-10.6)
[2023-11-02 11:20] LABS: Glucose,Whole Blood 132 mg/dL (70-110)
--- NOTE | 2023-11-02 11:45 | P.PN ---
Subjective Progress Note Date: 11/02/23 Principal diagnosis: Reason for follow-up is pneumonia Patient is a 43-year-old male past medical history significant for hypertension hyperlipidemia alcoholism liver cirrhosis presenting to the hospital on 10/16/2023 for evaluation of abdominal pain, has been diagnosed with a incarcerated umbilical hernia status post open repair patient did have a worsening respiratory status requiring intubation on 10/19/2023 patient did have positive sputum culture with Burkholderia cepacia prompting this consultation. Patient did have a paracentesis at the bedside on 10/31/2023 with removal of 8.8 L fluid On today's evaluation that is 11/02/2023, Patient is afebrile this morning and denies any chills, patient mention breathing comfortably and is currently on room air, patient denies any chest pain occasional cough patient denies any abdominal pain she did have some diarrhea. Patient white count is down to 18.8 creatinine is 1.56 Objective - Vital Signs Vital signs: Vital Signs Temp 98.4 F 11/02/23 08:55 Pulse 70 11/02/23 09:22 Resp 18 11/02/23 08:55 BP 93/57 11/02/23 08:55 Pulse Ox 92 L 11/02/23 08:55 FiO2 2 10/28/23 00:00 Intake & Output 11/01/23 11/02/23 11/02/23 18:59 06:59 18:59 Intake Total 218 200 0 Output Total 360 450 Balance -142 -250 0 Weight 80 kg Intake: IV 100 100 Meropenem 1 gm In Sodium 100 100 Chloride 0.9% 100 ml @ 33 .3 mls/hr IVPB Q8HR [facility] Rx#:[id number] Oral 118 100 0 Output: Drainage 10 50 Lower Abdomen 10 50 Urine 350 400 Other: Voiding Method Indwelling Catheter Indwelling Catheter Indwelling Catheter ABP, PAP, CO, CI - Last Documented Arterial Blood Pressure 109/54 - Exam GENERAL DESCRIPTION: Middle-age male lying in bed in no distress RESPIRATORY SYSTEM: Unlabored breathing , decreased breath sounds at bases HEART: S1 S2 regular rate and rhythm , ABDOMEN: Soft , mild distention EXTREMITIES: edema feet - Labs CBC & Chem 7: 11/02/23 07:33 11/02/23 07:33 Labs: Abnormal Lab Results - Last 24 Hours (Table) 11/01/23 11/01/23 11/01/23 Range/Units 11:33 16:04 20:59 WBC (3.8-10.6) k/uL RBC (4.30-5.90) m/uL Hgb (13.0-17.5) gm/dL Hct (39.0-53.0) % MCHC (31.0-37.0) g/dL RDW (11.5-15.5) % Neutrophils # (1.3-7.7) k/uL Monocytes # (0-1.0) k/uL Sodium (137-145) mmol/L Carbon Dioxide (22-30) mmol/L BUN (9-20) mg/dL Creatinine (0.66-1.25) mg/dL Glucose (74-99) mg/dL POC Glucose (mg/dL) 125 H 117 H 126 H (70-110) mg/dL Calcium (8.4-10.2) mg/dL Magnesium (1.6-2.3) mg/dL Total Bilirubin (0.2-1.3) mg/dL Unconjugated Bilirubin (0.0-1.1) mg/dL Delta Bilirubin (0.0-0.2) mg/dL Total Protein (6.3-8.2) g/dL Albumin (3.5-5.0) g/dL 11/02/23 11/02/23 Range/Units 07:33 07:33 WBC 18.8 H (3.8-10.6) k/uL RBC 3.25 L (4.30-5.90) m/uL Hgb 8.7 L (13.0-17.5) gm/dL Hct 29.5 L (39.0-53.0) % MCHC 29.5 L (31.0-37.0) g/dL RDW 23.5 H (11.5-15.5) % Neutrophils # 14.8 H (1.3-7.7) k/uL Monocytes # 1.7 H (0-1.0) k/uL Sodium 129 L (137-145) mmol/L Carbon Dioxide 20 L (22-30) mmol/L BUN 63 H (9-20) mg/dL Creatinine 1.56 H (0.66-1.25) mg/dL Glucose 100 H (74-99) mg/dL POC Glucose (mg/dL) (70-110) mg/dL Calcium 7.5 L (8.4-10.2) mg/dL Magnesium 2.5 H (1.6-2.3) mg/dL Total Bilirubin 3.2 H (0.2-1.3) mg/dL Unconjugated Bilirubin 1.8 H (0.0-1.1) mg/dL Delta Bilirubin 1.2 H (0.0-0.2) mg/dL Total Protein 5.8 L (6.3-8.2) g/dL Albumin 2.6 L (3.5-5.0) g/dL Microbiology - Last 24 Hours (Table) 10/27/23 16:13 Blood Culture - Final Blood Assessment and Plan (1) Burkholderia cepacia infection Current Visit: Yes Status: Acute Code(s): A49.8 - OTHER BACTERIAL INFECTIONS OF UNSPECIFIED SITE SNOMED Code(s): 459620127 (2) Bilateral pneumonia Current Visit: No Status: Acute Code(s): J18.9 - PNEUMONIA, UNSPECIFIED ORGANISM SNOMED Code(s): 040902803 Plan: 1patient presented to hospital with abdominal pain has been diagnosed with incarcerated abdominal hernia s/p open repair and the patient subsequently did have worsening of his respiratory status and mentation requiring intubation now 10/19/2023 now with hypotension elevated white count sputum culture positive for Burkholderia cepacia complex chest x-ray with bilateral basilar infiltrate concerning for nosocomial gram-negative pneumonia 2-patient to continue with meropenem 1 g every 8 hours to finish a 10-day course of therapy 3-patient did have persistent slight worsening leukocytosis stool for C. dif ficile negative, source possibly left subclavian catheter which has been discontinued culture has been obtained patient was started on daptomycin yesterday white count is trending down to continue while waiting for the culture to finalize Dictation was produced using [employer]ation software. please excuse any grammatical, word or spelling errors. Time with Patient: Less than 30
--- NOTE | 2023-11-02 11:49 | P.PN ---
Subjective Patient is seen for follow-up for acute kidney injury. S/p paracentesis with 8.8 L on 10/31/2023. status post albumin No significant complaints. Serum creatinine at 1.5 today. 24 hour urine output at 750 mL Maintained on midodrine. Blood pressure remains on the lower side. Sodium is 129 today. Lasix was decreased to once a day. Objective - Vital Signs Vital signs: Vital Signs Temp 98.2 F 11/02/23 11:15 Pulse 100 11/02/23 11:15 Resp 17 11/02/23 11:15 BP 107/66 11/02/23 11:15 Pulse Ox 92 L 11/02/23 11:15 FiO2 2 10/28/23 00:00 Intake & Output 11/01/23 11/02/23 11/02/23 18:59 06:59 18:59 Intake Total 218 200 0 Output Total 360 450 Balance -142 -250 0 Weight 80 kg Intake: IV 100 100 Meropenem 1 gm In Sodium 100 100 Chloride 0.9% 100 ml @ 33 .3 mls/hr IVPB Q8HR [facility] Rx#:[id number] Oral 118 100 0 Output: Drainage 10 50 Lower Abdomen 10 50 Urine 350 400 Other: Voiding Method Indwelling Catheter Indwelling Catheter Indwelling Catheter # Bowel Movements 1 ABP, PAP, CO, CI - Last Documented Arterial Blood Pressure 109/54 - Exam Patient is awake and comfortable. No acute distress. Examination of the heart S1 and S2 Examination of the lungs bilateral breath sounds are heard Abdomen is soft ,nontender. Ascites noted Examination of lower extremities shows no edema [employer] REPRESENT[employer]IVE exam is grossly intact. - Labs CBC & Chem 7: 11/02/23 07:33 11/02/23 07:33 Labs: Abnormal Lab Results - Last 24 Hours (Table) 11/01/23 11/01/23 11/02/23 Range/Units 16:04 20:59 07:33 WBC 18.8 H (3.8-10.6) k/uL RBC 3.25 L (4.30-5.90) m/uL Hgb 8.7 L (13.0-17.5) gm/dL Hct 29.5 L (39.0-53.0) % MCHC 29.5 L (31.0-37.0) g/dL RDW 23.5 H (11.5-15.5) % Neutrophils # 14.8 H (1.3-7.7) k/uL Monocytes # 1.7 H (0-1.0) k/uL Sodium (137-145) mmol/L Carbon Dioxide (22-30) mmol/L BUN (9-20) mg/dL Creatinine (0.66-1.25) mg/dL Glucose (74-99) mg/dL POC Glucose (mg/dL) 117 H 126 H (70-110) mg/dL Calcium (8.4-10.2) mg/dL Magnesium (1.6-2.3) mg/dL Total Bilirubin (0.2-1.3) mg/dL Unconjugated Bilirubin (0.0-1.1) mg/dL Delta Bilirubin (0.0-0.2) mg/dL Total Protein (6.3-8.2) g/dL Albumin (3.5-5.0) g/dL 11/02/23 11/02/23 Range/Units 07:33 11:15 WBC (3.8-10.6) k/uL RBC (4.30-5.90) m/uL Hgb (13.0-17.5) gm/dL Hct (39.0-53.0) % MCHC (31.0-37.0) g/dL RDW (11.5-15.5) % Neutrophils # (1.3-7.7) k/uL Monocytes # (0-1.0) k/uL Sodium 129 L (137-145) mmol/L Carbon Dioxide 20 L (22-30) mmol/L BUN 63 H (9-20) mg/dL Creatinine 1.56 H (0.66-1.25) mg/dL Glucose 100 H (74-99) mg/dL POC Glucose (mg/dL) 132 H (70-110) mg/dL Calcium 7.5 L (8.4-10.2) mg/dL Magnesium 2.5 H (1.6-2.3) mg/dL Total Bilirubin 3.2 H (0.2-1.3) mg/dL Unconjugated Bilirubin 1.8 H (0.0-1.1) mg/dL Delta Bilirubin 1.2 H (0.0-0.2) mg/dL Total Protein 5.8 L (6.3-8.2) g/dL Albumin 2.6 L (3.5-5.0) g/dL Microbiology - Last 24 Hours (Table) 10/27/23 16:13 Blood Culture - Final Blood Assessment and Plan Assessment: 1. Acute kidney injury, ATN from hypotension versus hepatorenal syndrome. Improved. Maintained on midodrine, Sandostatin. status post albumin. No evidence of obstruction on computed tomography scan on 09/04/2023. 2. Non- gap metabolic acidosis associated with acute kidney injury. 3. Mild hyperkalemia associated with acute kidney injury and metabolic acidosis, improved 4. History of EtOH-related liver cirrhosis. 5. Status post open repair of incarcerated umbilical hernia and umbilectomy on 10/16/2023. 6. Ascites status post paracentesis of 8.8 L on 10/31/2023 7. Hepatic encephalopathy , improved. 8. Hyponatremia associated with underlying liver cirrhosis Plan: hold Lasix Repeat IV albumin today Repeat labs in a.m. Maintain midodrine and Sandostatin.
--- NOTE | 2023-11-02 13:04 | P.PN ---
Subjective Progress Note Date: 11/02/23 Principal diagnosis: Acute hypoxic respiratory failure secondary to fulminant liver failure with ascites and incarcerated umbilical hernia 44-year-old male who presented to the emergency department, on October 15, complaining of abdominal pain. The patient has a history of chronic liver disease from alcohol abuse, with cirrhosis and ascites, and need for periodic paracentesis abdominis. The patient has a known history of a umbilical hernia, which she is able to typically reduce, but because he was not able to reduce it, he came in to be evaluated. The patient ended up having surgery, last Thursday, on the , and initially was doing okay. This morning I was called by the surgeon, and my charge nurse in the intensive care unit, to say that the patient was doing poorly, and should be transferred down to the intensive care unit for further monitoring and management. The patient was very lethargic, and looked very unstable, with impending respiratory failure. When I first saw the patient he was on room air, and receiving an IV with 3 ampoules of sodium bicarb in D5W at 80 cc an hour. I asked for stat blood gas, when the patient came to the intensive care unit. His pO2 was 40, pCO2 27, pH is 7.41. After evaluating the patient, I decided to intubate the patient which we did, and place a central line and arterial line, both of which we did. Current laboratory data includes a blood gas showing a pO2 of 393, pCO2 41, pH is 7.26. Saturations are 100%. White count is 18.9, hemoglobin 8.3, hematocrit 26.3, and a platelet count of 156,000. Sodium 137, potassium 4.5, chlorides 106, CO2 14, anion gap 17, BUN 69.6, and creatinine 3. Glucose was 126. Lactic acid was 2.8. Bilirubin was 1.5. Ammonia level was up to 259. Cultures of the ascitic fluid are thus far negative. Chest x-ray shows endotracheal tube to be in good position. Central line is in good position, without complication. Progress note dated October 20, 2023. The patient is seen today in room 263. The patient was intubated, and lined yesterday, for respiratory failure. The patient has a history of chronic liver disease, with cirrhosis, ascites, and encephalopathy. Currently, the patient is on volume assist-control, rate 20, tidal volume 400, FiO2 40%, PEEP of 5. Blood gases show pO2 108, pCO2 28, pH is 7.46. This blood gases consistent with a mild respiratory alkalosis. The patient is getting D5W with 3 ampoules of sodium bicarbonate at 80 cc an hour. The patient is getting norepinephrine at 3 mcg/min, propofol at 50 mcg/kg/min. The patient has been having tremor-like activity, and could be seizing. The brain CT was negative. The patient will have tube feedings beginning today. We have ordered an EEG. In addition, I have asked the nurse to give the patient 2 mg of Ativan, to see if the tremors cease. White count is 13, hemoglobin 7, hematocrit 23, platelet count 106,000. Sodium 138, potassium 3.5, chlorides 111, CO2 17, anion gap 10, BUN 63, creatini ne 2.27. Glucose is 160. Ammonia level is down to 49. Albumin is 3.1. Thus far, cultures are negative. The patient's chest x-ray shows the endotracheal tube to be high in the trachea, and have asked respiratory therapy to push it down to 1.5 cm. Progress note dated October 21, 2023. The patient is seen today in room 263. He remains on mechanical ventilator. He is on volume assist-control, rate 20, tidal volume 400, FiO2 40%, PEEP of 5. Blood gases show pO2 of 64, pCO2 37, pH is 7.47. The patient is getting propofol at 50 mcg/kg/min, D5W with 3 ampoules of bicarbonate at 80 cc an hour, fentanyl drip at 1 mcg/kg/h, vital AF at 29 cc an hour, with a goal of 43 cc an hour. The patient also continues on Rocephin. White count is 10.3, hemoglobin 7, hematocrit 22.8, and platelet count 109,000. Sodium 137, potassium 3.7, chlorides 104, CO2 24, BUN 54, and creatinine 1.76. Glucose is 116. Ammonia level is 56. Calcium is 7.7. Cultures are thus far negative. Chest x-ray is unchanged. There is a small left pleural effusion. NG tube, endotracheal tube, and central venous catheter, are in appropriate positions. Progress note dated October 22, 2023. 43-year-old male seen again in the intensive care unit, room 263. He remains on the mechanical ventilator. The patient's ventilator settings include volume assist-control, rate 20, tidal volume 400, FiO2 40%, PEEP of 5. Blood gases show pO2 68, pCO2 45, pH is 7.41. The patient is on norepinephrine at 9 mcg/min, propofol at 50 mcg/kg/min, lactated Ringer's at 75 cc an hour, and fentanyl at 1 mcg/kg/h. The patient is getting tube feedings with vital AF at 43 cc an hour, which is goal. Microbiologic studies are thus far negative. The patient is on Rocephin. He has received 1 unit of packed red blood cells. Current labs include a white count 10.5, hemoglobin 6.6, hematocrit 22.2, and a platelet count of 97,000. Sodium 138, potassium 3.4, chlorides 106, CO2 26, BUN 53, creatinine 1.78. Glucose is 140. Albumin is 2.8. Total bilirubin is 1.4. Chest x-ray shows air space opacities, in the lung bases, which have worsened. Lines and tubes are in good placement. Note dated October 23, 2023. 43-year-old male seen again in room 263. He remains on mechanical ventilator. Vent settings include volume assist-control, rate 20, tidal volume 400, FiO2 40%, PEEP of 5. Blood gases show pO2 87, pCO2 44, pH is 7.40. The patient is getting lactated Ringer's at 75 cc an hour, propofol at 45 mcg/kg/min, norepinephrine at 7.7 mcg/min, and saline at 10 cc an hour. The patient is also getting vital AF, at 10 cc an hour. He continues on Zosyn. We will check a procalcitonin level. The patient will have a daily interruption of sedation, without a spontaneous breathing trial today. Current labs include a white count of 12.7, hemoglobin 7.8, hematocrit 26, platelet count 75,000. Sodium 138, potassium 4.1, chlorides 105, CO2 26, BUN 47, creatinine 1.35. Glucose is 141. Albumin is 3.1. Cultures thus far negative including blood and sputum. Chest x-ray shows the OG tube, to remain in satisfactory position. There is persistent bibasilar infiltrates and/or atelectasis. Progress note dated October 24, 2023. 43-year-old male seen again in room 263. The patient remains on the mechanical ventilator. He is on volume assist-control, rate 20, tidal volume 400, FiO2 30%, PEEP of 5. Blood gases show pO2 69, pCO2 39, and pH is 7.44. The patient remains on propofol at 20 mcg/kg/min, norepinephrine at 2.4 mcg/min, lactated Ringer's at 50 cc an hour, and saline at 10 cc an hour. Patient is getting vital AF at 20, with a goal at 20 cc an hour. The patient continues on Zosyn. His procalcitonin level was 3.62. He will get 1 dose of Lasix 40 mg IV push. His lactated Ringer's IV, will be made KVO. Current labs include a white count of 17.6, hemoglobin 7.4, hematocrit 24.8, and a platelet count of 98,000. Sodium 142, potassium 3.8, chlorides 107, CO2 26, BUN 51, creatinine 1.36. Calcium is 8.2. Albumin is 3.0. Ammonia level was 22. All cultures are thus far negative. Chest x-ray shows small lung volumes, with basilar infiltrates or atelectasis, and small effusions. Progress note dated October 25, 2023. 43-year-old male seen again in room 263. The patient remains on the ventilator. He is on volume assist-control, rate 20, tidal volume 400, FiO2 30%, PEEP of 5. Blood gases show pO2 of 70, pCO2 39, pH is 7.46. The patient getting lactated Ringer's at 20 cc an hour, norepinephrine at 5.6 mcg/min, and vital AF at 20 cc an hour, which is goal. The patient will have a spontaneous breathing trial today, as he has been off of propofol for some time. His cultures are negative. He continues on Zosyn. I am not hopeful that the patient will be extubated today. White count 19.1, hemoglobin 7.3, hematocrit 23.8, platelet count 105,000. Sodium 143, potassium 3.8, chlorides 109, CO2 26, BUN 62, creatinine 1.60. Glucose 131. Albumin 2.8. Calcium 8.1. Cultures are thus far negative. Chest x-ray shows small lung volumes. Endotracheal tube is in appropriate position in the trachea. There is basilar atelectasis, and small bilateral pleural effusions. On today's evaluation of 10/26/2023, the patient remains intubated on mechanical ventilator. As mentioned, the patient is post repair of incarcerated abdominal/umbilical hernia. The patient is known to have liver cirrhosis s econdary to alcoholism. The patient has large ascites in addition. The patient has been off Precedex since 10/24/2023. On today's evaluation, he is extremely lethargic. He is following some simple commands. Unable to cough. Unable to raise his arms against gravity. His serum ammonia level has been measured at 61 and the patient continues to be on lactulose. His last bowel movement was 48 ho urs ago. In terms of his breathing, the patient is on a assist-control mode of mechanical ventilation at rate of 20, tidal volume of 400, FiO2 30% with a PEEP of 5 with a blood gas showing a pH of 7.47 with a pCO2 of 38 and pO2 of 71. The patient remains on low-dose norepinephrine running at 0.02 mcg/kg/min. Lactated Ringer's running at a rate of. Urine output is adequate at 60 cc. Earlier this morning, the patient was taken off the assist-control mode of mechanical ventilation and placed on a pressure support of 7 and a PEEP of 5 and he was able to generate adequate minute ventilation and tidal volume. He has a CHRIS drain and output is minimal and this was serous in nature. The white cell count is 14.7 with a heme of 7.1 and a platelet count of 102. INR is 1.5, sodium is at 144, BUN is 73 with a creatinine of 1.6 and a sodium levels at 144 and a potassium level is at 3.7. The patient is on IV Zosyn as an empiric antibiotic coverage. Based on all this, and based on the large ascitic fluid, I did a bedside paracentesis and the patient had a total of 5 L of ascitic fluid was as pirated and this will be sent for cultures and analysis. His sputum samples from 10/24/2023 is showing Burkholderia chest x-ray reveals smaller lung volumes along with some small bilateral pleural effusions. The patient is on DuoNeb nebulized treatments [id number]. The patient on midodrine 15 mg p.o. 3 times daily. Low-dose norepinephrine. 10/27/2023, patient remains intubated on the mechanical ventilator. Remains encephalopathic despite some improvement in his ammonia level. The patient serum ammonia level is down to 48 and the patient is currently on lactulose and rifaximin. Noted the patient has a fecal management system in place and is producing adequate amount of bowel movement. Grimaces to painful stimulation. Occasionally follows commands. Very much lethargic. Very much weak. Has a weak cough. May not be able to protect his airway postextubation for that reason we kept him on the mechanical ventilator for now. On today's evaluation, he is showing a less distended abdomen as the patient underwent a paracentesis and the ascitic fluid showed no clear indication for an underlying infection. The cell count of mesenteric fluid was 170. Cultures are still pending for now. The patient remains on pressure control mode of mechanical ventilation at the rate of 50, pressure control of 50, expiratory, 0.8, FiO2 of 30% with a PEEP of 5. Blood gas showed a pH of 7.33 with a pCO2 of 31 and a pO2 of 83. The patient remains off sedative medications. His labs from today showed a white cell count of 14.2 with a hemoglobin of 7.4 and a platelet count of 100. BUN is 73 with a creatinine 1.47 and a sodium noted at 145 with a potassium level is at 3.6. Serum bicarb is at 22. The chest x-ray findings chronic stable bilateral lower lobe pulmonary infiltrates and the patient remains on broad-spectrum antibiotics and the patient remains on IV meropenem. 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 10/28/23 the patient is being seen for a follow-up. Note that the patient was weaned off mechanical ventilator and the patient was extubated yesterday without any major difficulties. The patient is currently on room air oxygen. No significant respiratory distress. He is much more alert and awake. He is following some simple commands. He is stooling excessively in the stool output in the order of 1000 mL over the past 24 hours. He remains on lactulose 20 g 3 times a day. His serum ammonia level has been downtrending and ammonia level is currently down to 48 sodium levels at 151. Potassium is at 3.7, BUN 73 with a creatinine of 1.33. Glucose is 129. Abdomen is again distended and the patient is having significant abdominal discomfort because of ongoing ascites and abdominal distention. The patient was started on D5 water by nephrology and currently D5 water is running at 60 cc an hour. The patient remains on IV meropenem. Patient is on octreotide. Output from the CHRIS drain is minimal. No pressors. 10/29/2023, the patient is being seen for a follow-up. Awake and alert and communicating. Encephalopathy essentially improving and the patient's ammonia level is considerably down to 24. He continues to have high output stool and lactulose was held today. Paracentesis was done yesterday with a total of 5 L of ascitic fluid being drained. The patient was given IV albumin replacement. BUN is 66 with a creatinine of 1.27 and sodium levels at 135 with a potassium level of 3.6. Hemoglobin is down to 6.9 and a white cell count of 18.4. Patient is currently on no pressors. The patient remains on IV meropenem. The patient remains on a combination of lactulose and Xifaxan. Continues to have edema in all 4 extremities. There is generalized weakness in all 4 extremities. Nevertheless, there is no focal neurological deficits. Level of alertness is improved considerably. 10/30/2023, the patient is being seen for a follow up. Awake and alert and communicating. Abdomen is distended. The patient is currently on room air oxygen. No signs of any respiratory distress. He is stooling. Ammonia level is. BUN is 65 with a creatinine of 1.3. Sodium is at 131, the white cell count at 19.2 with a hemoglobin of 8.3. Remains on IV meropenem. Started on Lasix 40 mg IV every 12 hours. Patient is also on Aldactone. The patient remains on rifaximin and lactulose. He remains on midodrine. No other significant events overnight. 10/31/2023, the patient is being seen for a follow-up. The patient has no specific complaints. Abdomen is significant distended and he is having some abdominal discomfort along with massive ascites. Based on that, another paracentesis was done at the bedside and a total of 8.8 L of fluid aspirated and the patient was given IV albumin and total of 25 g. Remains on lactulose. R emains on rifaximin. Hemodynamically stable. Blood pressure is stable. Electrolytes are all stable with a sodium level of 131, serum bicarb is at 19, BUN 65 with a creatinine of 1.5 and a white cell count of 20 with a hemoglobin 9.2. Remains on IV meropenem. Mental status is appropriate and the patient is following commands and answer questions appropriately. On 11/01/2023, the patient is post paracentesis. A total of 8.8 L of ascitic fluid was drained from the patient's abdomen. Remains hemodynamically stable. Abdomen is less distended. No respiratory distress. Mental status is adequate. Creatinine is at 1.5 with a BUN of 63 and a sodium level of 129. The patient remains on IV Lasix 40 mg every 24 hours and Aldactone. Remains on a combination of octreotide, lactulose and rifaximin. No new complaints otherwise. The white cell count of 20.4. Hemoglobin 8.9. Platelet count is at 217. The patient is currently on room air oxygen. Patient was evaluated today on 11/02/2023, patient is on room air, hemodynamically stable, blood pressure 107/66. Does not seem to be in any distress, however the patient continues to have recurrent episodes of worsening ascites. Patient has been drained over the last few days, had a total of 8.8 L drained from the abdomen, patient remains on diuretics he is also on octreotide, lactulose, and rifaximin. WBC count is 18.8 hemoglobin 8.7 sodium 129 potassium 4.1 BUN 63 and creatinine 1.56 Objective - Vital Signs Vital signs: Vital Signs Temp 98.2 F 11/02/23 11:15 Pulse 64 11/02/23 12:18 Resp 17 11/02/23 11:15 BP 107/66 11/02/23 11:15 Pulse Ox 92 L 11/02/23 11:15 FiO2 2 10/28/23 00:00 Intake & Output 11/01/23 11/02/23 11/02/23 18:59 06:59 18:59 Intake Total 218 200 0 Output Total 360 450 Balance -142 -250 0 Weight 80 kg Intake: IV 100 100 Meropenem 1 gm In Sodium 100 100 Chloride 0.9% 100 ml @ 33 .3 mls/hr IVPB Q8HR [facility] Rx#:[id number] Oral 118 100 0 Output: Drainage 10 50 Lower Abdomen 10 50 Urine 350 400 Other: Voiding Method Indwelling Catheter Indwelling Catheter Indwelling Catheter # Bowel Movements 1 ABP, PAP, CO, CI - Last Documented Arterial Blood Pressure 109/54 - Exam General: Revealed 43-year-old male cachectic, chronically ill, on room air. Skin: Skin is warm and dry and no rashes or lesions are noted. Eye: Pupils are equal, round and reactive to light, extra-ocular movements are intact; there is normal conjunctiva bilaterally. Ears, nose, mouth and throat: There are moist mucous membranes and no oral lesions. Neck: The neck is supple, there is no tenderness or JVD. Cardiovascular: There is a regular rate and rhythm. No murmur, rub or gallop is appreciated. Respiratory: Clear bilaterally no rhonchi or wheezes y Gastrointestinal: Significant ascites is noted, nontender, no rebound, no guarding Back: There is no tenderness to palpation in the midline. There is no obvious deformity. Musculoskeletal: Normal ROM, no tenderness, 2+ bipedal edema Neurological: CN II-XII intact, Cranial nerves III through XII are intact. There are no obvious motor or sensory deficits. Coordination appears grossly intact. Speech is normal. Psychiatric: Cooperative, appropriate mood & affect, normal judgment. - Labs CBC & Chem 7: 11/02/23 07:33 11/02/23 07:33 Labs: Abnormal Lab Results - Last 24 Hours (Table) 11/01/23 11/01/23 11/02/23 Range/Units 16:04 20:59 07:33 WBC 18.8 H (3.8-10.6) k/uL RBC 3.25 L (4.30-5.90) m/uL Hgb 8.7 L (13.0-17.5) gm/dL Hct 29.5 L (39.0-53.0) % MCHC 29.5 L (31.0-37.0) g/dL RDW 23.5 H (11.5-15.5) % Neutrophils # 14.8 H (1.3-7.7) k/uL Monocytes # 1.7 H (0-1.0) k/uL Sodium (137-145) mmol/L Carbon Dioxide (22-30) mmol/L BUN (9-20) mg/dL Creatinine (0.66-1.25) mg/dL Glucose (74-99) mg/dL POC Glucose (mg/dL) 117 H 126 H (70-110) mg/dL Calcium (8.4-10.2) mg/dL Magnesium (1.6-2.3) mg/dL Total Bilirubin (0.2-1.3) mg/dL Unconjugated Bilirubin (0.0-1.1) mg/dL Delta Bilirubin (0.0-0.2) mg/dL Total Protein (6.3-8.2) g/dL Albumin (3.5-5.0) g/dL 11/02/23 11/02/23 Range/Units 07:33 11:15 WBC (3.8-10.6) k/uL RBC (4.30-5.90) m/uL Hgb (13.0-17.5) gm/dL Hct (39.0-53.0) % MCHC (31.0-37.0) g/dL RDW (11.5-15.5) % Neutrophils # (1.3-7.7) k/uL Monocytes # (0-1.0) k/uL Sodium 129 L (137-145) mmol/L Carbon Dioxide 20 L (22-30) mmol/L BUN 63 H (9-20) mg/dL Creatinine 1.56 H (0.66-1.25) mg/dL Glucose 100 H (74-99) mg/dL POC Glucose (mg/dL) 132 H (70-110) mg/dL Calcium 7.5 L (8.4-10.2) mg/dL Magnesium 2.5 H (1.6-2.3) mg/dL Total Bilirubin 3.2 H (0.2-1.3) mg/dL Unconjugated Bilirubin 1.8 H (0.0-1.1) mg/dL Delta Bilirubin 1.2 H (0.0-0.2) mg/dL Total Protein 5.8 L (6.3-8.2) g/dL Albumin 2.6 L (3.5-5.0) g/dL Microbiology - Last 24 Hours (Table) 10/27/23 16:13 Blood Culture - Final Blood Assessment and Plan Assessment: Impression: Acute presentation with incarcerated umbilical hernia status postsurgical repair postoperative day #17 Alcoholic liver cirrhosis with ascites requiring multiple paracentesis procedures Acute hypoxic respiratory failure secondary to fulminant liver failure on his initial presentation requiring intubation mechanical ventilation Chronic kidney disease Hyperammonemia secondary to chronic liver disease and associated with hepatic encephalopathy Hypertension History of depression and PTSD History of chronic tobacco use Anemia of chronic disease Medical debility secondary to multiple comorbidities as noted above Recommendation: Continue present supportive care measures Patient should be considered for scheduled paracentesis procedures on a regular basis Continue lactulose rifaximin and diuretics Continue close monitoring of his ammonia level Advance diet as tolerated Continue diuretics Closely monitor electrolytes and renal profile Overall prognosis remains extremely poor and guarded We will continue to follow Time with Patient: Less than 30
[2023-11-02] MEDS: ALBUMIN HUMAN 25% 50 ML in EMPTY BAG 1 BAG IVPB SCH (13:12)
--- NOTE | 2023-11-02 13:19 | P.PN ---
Subjective Progress Note Date: 11/02/23 Patient appears comfortable today, but reports increasing tension in his abdomen. Requesting paracentesis. 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 He presented to the emergency department on 10/16/23 with a chief complaint of intractable abdominal pain and reports umbilical hernia is now nonreducible. Vital signs upon arrival showed BP 115/69, HR 76, RR 18, T 97.8 F, and SpO2 100% on RA. EKG showed normal sinus rhythm at 63 bpm with no noted T wave or ST abnormalities. CBC showing bicytopenia with Hg 7.9 and Plt 98. Coagulation profile showed PT of 14.7 and INR 1.4. BMP showing Na 133, Cl 110, bicarb of 13, and anion gap of 10, BUN of 35, creatinine 1.65, GFR 51. Blood glucose was 119. Lactic acid was 1.8. Liver profile was unremarkable. Patient was evaluated by general surgeon, he is being admitted to general surgery team with plans to be taken to the OR for open surgical repair of incarcerated umbilical hernia. We were consulted for preoperative medical clearance and postoperative medical management. Patient underwent open repair of incarcerated umbilical hernia with umbillectomy on 10/[address] Hair. Renal function continued to worsen. Also noted to be more acidotic. Patient was started on albumin and octreotide. Midodrine was increased and Nephrology was consulted. Patient was started on bicarb drip. Renal function improving. Patient became encephalopathic on 10/18, started on rectal lactulose and transferred to medical ICU. His mentation continued to worsen, and he was intubated on 10/18. Started on Rocephin for concerns of SBP on 10/18. He has required Levophed since being intubated which is being slowly titrated down. CXR showing signs of right sided PNA, pro-mony elevated at 3.62, Rocephin switched to Zosyn on 10/21. Generalized tremors noted on 10/19, CT brain was negative for acute pathology and EEG showed moderate to severe background slowing. Started on Fentanyl drip (09/26-10/22) which improved his tremors, likely related to pain. There was concern for GI bleed as well. Hg downtrending to 6.6 on 10/21 requiring 1 unit PRBC. Assessment/plan: Metabolic encephalopathy, acute Secondary to hepatic encephalopathy and sepsis Decompensated liver cirrhosis Acute Kidney Injury, secondary to ATN from hypotension, possibly complicated by hepatorenal syndrome - large volume paracentesis PRN (last on 10/30) -order placed for repeat paracentesis 11/01 - albumin infusion s/p paracentesis - octreotide 100mg q8h - rifaximin 550mg BID, lactulose 20mg daily - midodrine 15mg AC-TID - spironolactone 25mg BID [facility] Pneumonia Septic Shock, now resolved - ongoing meropenem (10/25 - present), completed zosyn (10/21-10/25), daptomycin (10/31 - present); appropriate abx started on 10/25, this is day 12/04 - 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 - BCx have been NGTD - SBP ruled out with < 250PMNs in cirrhotic patient - C Diff ruled out - catheter tip Cx is pending - Bicytopenia related to cirrhosis Acute Blood Loss Anemia, expected outcome of surgery - continue to monitor daily - transfuse PRN for Hgb < 7 S/P Incarcerated Hernia Repair - care per surgical team Pt is Full Code Objective - Vital Signs Vital signs: Vital Signs Temp 98.2 F 11/02/23 11:15 Pulse 64 11/02/23 12:18 Resp 17 11/02/23 11:15 BP 107/66 11/02/23 11:15 Pulse Ox 92 L 11/02/23 11:15 FiO2 2 10/28/23 00:00 Intake & Output 11/01/23 11/02/23 11/02/23 18:59 06:59 18:59 Intake Total 218 200 0 Output Total 360 450 Balance -142 -250 0 Weight 80 kg Intake: IV 100 100 Meropenem 1 gm In Sodium 100 100 Chloride 0.9% 100 ml @ 33 .3 mls/hr IVPB Q8HR [facility] Rx#:[id number] Oral 118 100 0 Output: Drainage 10 50 Lower Abdomen 10 50 Urine 350 400 Other: Voiding Method Indwelling Catheter Indwelling Catheter Indwelling Catheter # Bowel Movements 1 ABP, PAP, CO, CI - Last Documented Arterial Blood Pressure 109/54 - Labs CBC & Chem 7: 11/02/23 07:33 11/02/23 07:33 Labs: Abnormal Lab Results - Last 24 Hours (Table) 11/01/23 11/01/23 11/02/23 Range/Units 16:04 20:59 07:33 WBC 18.8 H (3.8-10.6) k/uL RBC 3.25 L (4.30-5.90) m/uL Hgb 8.7 L (13.0-17.5) gm/dL Hct 29.5 L (39.0-53.0) % MCHC 29.5 L (31.0-37.0) g/dL RDW 23.5 H (11.5-15.5) % Neutrophils # 14.8 H (1.3-7.7) k/uL Monocytes # 1.7 H (0-1.0) k/uL Sodium (137-145) mmol/L Carbon Dioxide (22-30) mmol/L BUN (9-20) mg/dL Creatinine (0.66-1.25) mg/dL Glucose (74-99) mg/dL POC Glucose (mg/dL) 117 H 126 H (70-110) mg/dL Calcium (8.4-10.2) mg/dL Magnesium (1.6-2.3) mg/dL Total Bilirubin (0.2-1.3) mg/dL Unconjugated Bilirubin (0.0-1.1) mg/dL Delta Bilirubin (0.0-0.2) mg/dL Total Protein (6.3-8.2) g/dL Albumin (3.5-5.0) g/dL 11/02/23 11/02/23 Range/Units 07:33 11:15 WBC (3.8-10.6) k/uL RBC (4.30-5.90) m/uL Hgb (13.0-17.5) gm/dL Hct (39.0-53.0) % MCHC (31.0-37.0) g/dL RDW (11.5-15.5) % Neutrophils # (1.3-7.7) k/uL Monocytes # (0-1.0) k/uL Sodium 129 L (137-145) mmol/L Carbon Dioxide 20 L (22-30) mmol/L BUN 63 H (9-20) mg/dL Creatinine 1.56 H (0.66-1.25) mg/dL Glucose 100 H (74-99) mg/dL POC Glucose (mg/dL) 132 H (70-110) mg/dL Calcium 7.5 L (8.4-10.2) mg/dL Magnesium 2.5 H (1.6-2.3) mg/dL Total Bilirubin 3.2 H (0.2-1.3) mg/dL Unconjugated Bilirubin 1.8 H (0.0-1.1) mg/dL Delta Bilirubin 1.2 H (0.0-0.2) mg/dL Total Protein 5.8 L (6.3-8.2) g/dL Albumin 2.6 L (3.5-5.0) g/dL Microbiology - Last 24 Hours (Table) 10/27/23 16:13 Blood Culture - Final Blood
--- NOTE | 2023-11-02 13:34 | P.PN ---
Subjective Progress Note Date: 11/02/23 Principal diagnosis: Incarcerated umbilical hernia Patient is out of the ICU now. He is lying in bed. Denies abdominal pain. No nausea or vomiting. Appetite diminished. He is on regular food. Stools are becoming more solid. Last paracentesis 10/30. Labs noted. Objective - Vital Signs Vital signs: Vital Signs Temp 98.2 F 11/02/23 11:15 Pulse 64 11/02/23 12:18 Resp 17 11/02/23 11:15 BP 107/66 11/02/23 11:15 Pulse Ox 92 L 11/02/23 11:15 FiO2 2 10/28/23 00:00 Intake & Output 11/01/23 11/02/23 11/02/23 18:59 06:59 18:59 Intake Total 218 200 0 Output Total 360 450 Balance -142 -250 0 Weight 80 kg Intake: IV 100 100 Meropenem 1 gm In Sodium 100 100 Chloride 0.9% 100 ml @ 33 .3 mls/hr IVPB Q8HR [facility] Rx#:[id number] Oral 118 100 0 Output: Drainage 10 50 Lower Abdomen 10 50 Urine 350 400 Other: Voiding Method Indwelling Catheter Indwelling Catheter Indwelling Catheter # Bowel Movements 1 ABP, PAP, CO, CI - Last Documented Arterial Blood Pressure 109/54 - Exam Abdomen: Soft, mild distention, incision clean and dry, minimal tenderness, CHRIS serosanguineous - Labs CBC & Chem 7: 11/02/23 07:33 11/02/23 07:33 Labs: Abnormal Lab Results - Last 24 Hours (Table) 11/01/23 11/01/23 11/02/23 Range/Units 16:04 20:59 07:33 WBC 18.8 H (3.8-10.6) k/uL RBC 3.25 L (4.30-5.90) m/uL Hgb 8.7 L (13.0-17.5) gm/dL Hct 29.5 L (39.0-53.0) % MCHC 29.5 L (31.0-37.0) g/dL RDW 23.5 H (11.5-15.5) % Neutrophils # 14.8 H (1.3-7.7) k/uL Monocytes # 1.7 H (0-1.0) k/uL Sodium (137-145) mmol/L Carbon Dioxide (22-30) mmol/L BUN (9-20) mg/dL Creatinine (0.66-1.25) mg/dL Glucose (74-99) mg/dL POC Glucose (mg/dL) 117 H 126 H (70-110) mg/dL Calcium (8.4-10.2) mg/dL Magnesium (1.6-2.3) mg/dL Total Bilirubin (0.2-1.3) mg/dL Unconjugated Bilirubin (0.0-1.1) mg/dL Delta Bilirubin (0.0-0.2) mg/dL Total Protein (6.3-8.2) g/dL Albumin (3.5-5.0) g/dL 11/02/23 11/02/23 Range/Units 07:33 11:15 WBC (3.8-10.6) k/uL RBC (4.30-5.90) m/uL Hgb (13.0-17.5) gm/dL Hct (39.0-53.0) % MCHC (31.0-37.0) g/dL RDW (11.5-15.5) % Neutrophils # (1.3-7.7) k/uL Monocytes # (0-1.0) k/uL Sodium 129 L (137-145) mmol/L Carbon Dioxide 20 L (22-30) mmol/L BUN 63 H (9-20) mg/dL Creatinine 1.56 H (0.66-1.25) mg/dL Glucose 100 H (74-99) mg/dL POC Glucose (mg/dL) 132 H (70-110) mg/dL Calcium 7.5 L (8.4-10.2) mg/dL Magnesium 2.5 H (1.6-2.3) mg/dL Total Bilirubin 3.2 H (0.2-1.3) mg/dL Unconjugated Bilirubin 1.8 H (0.0-1.1) mg/dL Delta Bilirubin 1.2 H (0.0-0.2) mg/dL Total Protein 5.8 L (6.3-8.2) g/dL Albumin 2.6 L (3.5-5.0) g/dL Microbiology - Last 24 Hours (Table) 10/27/23 16:13 Blood Culture - Final Blood Assessment and Plan (1) Incarcerated umbilical hernia Narrative/Plan: Patient seems to be gradually improving. Unfortunately his ascites continues to be a major problem. Last drained 2 days ago. Reevaluate tomorrow but may have to proceed with repeat paracentesis. Continue increasing diet. Remove CHRIS drain. Will follow. Current Visit: Yes Status: Acute Code(s): K42.0 - UMBILICAL HERNIA WITH OBSTRUCTION, WITHOUT GANGRENE SNOMED Code(s): 609885712
[2023-11-02 16:16] LABS: Glucose,Whole Blood 127 mg/dL (70-110)
--- NOTE | 2023-11-02 16:27 | US ---
EXAMINATION TYPE: US abdomen limited DATE OF EXAM: 11/02/2023 COMPARISON: Multiple CLINICAL INDICATION: Male, 43 years old with history of ascites; Ascites seen in all 4 quadrants IMPRESSION: Marked ascites.
[2023-11-02 20:10] LABS: Glucose,Whole Blood 126 mg/dL (70-110)
[2023-11-02] MEDS: BISMUTH SUBSALICYLATE 4,192 MG/240 ML BOTTLE PO PRN (23:47)
[2023-11-03 05:39] LABS: Glucose,Whole Blood 110 mg/dL (70-110)
[2023-11-03 10:00] LABS: INR 1.8 (<1.2); Prothrombin Time 18.4 sec (10.0-12.5)
[2023-11-03 10:04] LABS: African American GFR (CKD) 49 (>60 ml/min/1.73 sqM); Anion Gap 9 mmol/L; Blood Urea Nitrogen 67 mg/dL (9-20); Calcium 7.5 mg/dL (8.4-10.2); Carbon Dioxide 19 mmol/L (22-30); Chloride 99 mmol/L (98-107); Glucose 93 mg/dL (74-99); Magnesium 2.5 mg/dL (1.6-2.3); Non-African American GFR(CKD) 43 (>60 ml/min/1.73 sqM); Potassium 4.3 mmol/L (3.5-5.1); Sodium 127 mmol/L (137-145)
--- NOTE | 2023-11-03 10:20 | P.PN ---
Subjective Progress Note Date: 11/03/23 Patient appears comfortable today, increased abdominal ascites is noted. 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 and undergoes weekly paracentesis (last paracentesis being 10/14/2023) with a documented removal of 10,000 cc of ascitic fluid, CKD stage IIIb, depression, PTSD, and nicotine dependence. He presented to the emergency department on 10/16/23 with a chief complaint of intractable abdominal pain and reports umbilical hernia is now nonreducible. Vital signs upon arrival showed BP 115/69, HR 76, RR 18, T 97.8 F , and SpO2 100% on RA. EKG showed normal sinus rhythm at 63 bpm with no noted T wave or ST abnormalities. CBC showing bicytopenia with Hg 7.9 and Plt 98. Coagulation profile showed PT of 14.7 and INR 1.4. BMP showing Na 133, Cl 110, bicarb of 13, and anion gap of 10, BUN of 35, creatinine 1.65, GFR 51. Blood glucose was 119. Lactic acid was 1.8. Liver profile was unremarkable. Patient was evaluated by general surgeon, he is being admitted to general surgery team with plans to be taken to the OR for open surgical repair of incarcerated umbilical hernia. We were consulted for preoperative medical clearance and postoperative medical management. Patient underwent open repair of incarcerated umbilical hernia with umbillectomy on 10/[address] Hair. Renal function continued to worsen. Also noted to be more acidotic. Patient was started on albumin and octreotide. Midodrine was increased and Nephrology was consulted. Patient was started on bicarb drip. Renal function improving. Patient became encephalopathic on 10/18, started on rectal lactulose and transferred to medical ICU. His mentation continued to worsen, and he was intubated on 10/18. Started on Rocephin for concerns of SBP on 10/18. He has required Levophed since being intubated which is being slowly titrated down. CXR showing signs of right sided PNA, pro-mony elevated at 3.62, Rocephin switched to Zosyn on 10/21. Generalized tremors noted on 10/19, CT brain was negative for acute pathology and EEG showed moderate to severe background slowing. Started on Fentanyl drip (10/21-10/22) which improved his tremors, likely related to pain. There was concern for GI bleed as well. Hg downtrending to 6.6 on 10/21 requiring 1 unit PRBC. Assessment/plan: Metabolic encephalopathy, acute Secondary to hepatic encephalopathy and sepsis Decompensated liver cirrhosis Acute Kidney Injury, secondary to ATN from hypotension, possibly complicated by hepatorenal syndrome - large volume paracentesis PRN (last on 10/30) -order placed for repeat paracentesis 11/01 - albumin infusion s/p paracentesis - octreotide 100mg q8h - rifaximin 550mg BID discontinued, lactulose 20mg daily - midodrine 15mg AC-TID - spironolactone 25mg BID [facility] Pneumonia Septic Shock, now resolved - ongoing meropenem (10/25 - present), completed zosyn (10/21-10/25), daptomycin (10/31 - present); appropriate abx started on 10/25, this is day 12/04 - 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 - BCx have been NGTD - SBP ruled out with < 250PMNs in cirrhotic patient - C Diff ruled out - catheter tip Cx is NGTD Bicytopenia related to cirrhosis Acute Blood Loss Anemia, expected outcome of surgery - continue to monitor daily - transfuse PRN for Hgb < 7 S/P Incarcerated Hernia Repair - care per surgical team Pt is Full Code Objective - Vital Signs Vital signs: Vital Signs Temp 98.2 F 11/03/23 04:00 Pulse 73 11/03/23 07:50 Resp 18 11/03/23 04:00 BP 99/57 11/03/23 04:00 Pulse Ox 93 L 11/03/23 04:00 FiO2 2 10/28/23 00:00 Intake & Output 11/02/23 11/03/23 11/03/23 18:59 06:59 18:59 Intake Total 0 Output Total 550 Balance 0 -550 Weight 80 kg 93.5 kg Intake: Oral 0 Output: Urine 550 Other: Voiding Method Indwelling Catheter Indwelling Catheter # Bowel Movements 1 1 ABP, PAP, CO, CI - Last Documented Arterial Blood Pressure 109/54 - Labs CBC & Chem 7: 11/02/23 07:33 11/03/23 09:08 Labs: Abnormal Lab Results - Last 24 Hours (Table) 11/02/23 11/02/23 11/02/23 Range/Units 11:15 16:14 20:08 PT (10.0-12.5) sec INR (<1.2) Sodium (137-145) mmol/L Carbon Dioxide (22-30) mmol/L BUN (9-20) mg/dL Creatinine (0.66-1.25) mg/dL POC Glucose (mg/dL) 132 H 127 H 126 H (70-110) mg/dL Calcium (8.4-10.2) mg/dL Magnesium (1.6-2.3) mg/dL 11/03/23 11/03/23 Range/Units 09:08 09:08 PT 18.4 H (10.0-12.5) sec INR 1.8 H (<1.2) Sodium 127 L (137-145) mmol/L Carbon Dioxide 19 L (22-30) mmol/L BUN 67 H (9-20) mg/dL Creatinine 1.89 H (0.66-1.25) mg/dL POC Glucose (mg/dL) (70-110) mg/dL Calcium 7.5 L (8.4-10.2) mg/dL Magnesium 2.5 H (1.6-2.3) mg/dL Microbiology - Last 24 Hours (Table) 11/01/23 15:07 Blood Culture - Preliminary Blood 11/01/23 15:07 Blood Culture - Preliminary Blood 11/01/23 16:30 Catheter Tip Culture - Preliminary Catheter Tip
[2023-11-03 10:35] LABS: Anisocytosis Moderate; Basophils # (A) 0.1 k/uL (0-0.2); Basophils % (A) 0 %; Eosinophils # (A) 0.3 k/uL (0-0.7); Eosinophils % (A) 2 %; HCT 27.7 % (39.0-53.0); HGB 8.6 gm/dL (13.0-17.5); Hypochromasia Slight; Lymphocytes # (A) 1.6 k/uL (1.0-4.8); Lymphocytes % (A) 10 %; MCH 28.1 pg (25.0-35.0); MCV 90.6 fL (80.0-100.0); Macrocytosis Slight; Mean Platelet Volume 8.3; Monocytes # (A) 1.7 k/uL (0-1.0); Monocytes % (A) 11 %; Neutrophils # (A) 11.2 k/uL (1.3-7.7); Neutrophils % (A) 73 %; Platelet Count 292 k/uL (150-450); RBC 3.06 m/uL (4.30-5.90); RDW 23.3 % (11.5-15.5); WBC 15.3 k/uL (3.8-10.6)
[2023-11-03 12:49] LABS: Glucose,Whole Blood 99 mg/dL (70-110)
[2023-11-03] MEDS: SODIUM CHLORIDE 0.9% 1,000 ML IV SCH (13:15)
--- NOTE | 2023-11-03 13:25 | US ---
EXAMINATION TYPE: US paracentesis abd w/image DATE OF EXAM: 11/03/2023 11:50 AM CLINICAL INDICATION:Male, 43 years old with history of ascites; COMPARISON: 11/02/2023 ATTENDING: Dr. Marcin Calixto PROCEDURE: Informed consent was obtained. The risks of the procedure were extensively explained incl uding risk of damage to surrounding bowel with perforation and need for additional procedures. Proced ure was performed in the ultrasound procedure suite. Ultrasound imaging of the abdomen demonstrate as citic fluid. An appropriate access site was localized to the right lower abdomen. Timeout was taken p er protocol. The skin was prepped and draped in the usual sterile fashion and then locally anesthetiz ed with 1% lidocaine. The peritoneal cavity was then accessed via a 5-Gren[place] one-step needle/cathete r. Approximately 9600 cc of clear straw-colored fluid was obtained. Postprocedural imaging of the a bdomen demonstrate a minimal amount of abdominal fluid. Patient tolerated procedure well without immediate complication. Hemostasis at the procedural site w as obtained with a sterile bandage placed. The patient was monitored in the holding area following th e procedure and was subsequently discharged in stable condition. IMPRESSION: Ultrasound guided paracentesis, with approximately 9600 cc of clear straw-colored fluid drained. No immediate complications were evident.
--- NOTE | 2023-11-03 14:08 | P.PN ---
Subjective Progress Note Date: 11/03/23 Principal diagnosis: Acute hypoxic respiratory failure secondary to fulminant liver failure with ascites and incarcerated umbilical hernia 44-year-old male who presented to the emergency department, on October 15, complaining of abdominal pain. The patient has a history of chronic liver disease from alcohol abuse, with cirrhosis and ascites, and need for periodic paracentesis abdominis. The patient has a known history of a umbilical hernia, which she is able to typically reduce, but because he was not able to reduce it, he came in to be evaluated. The patient ended up having surgery, last Thursday, on the , and initially was doing okay. This morning I was called by the surgeon, and my charge nurse in the intensive care unit, to say that the patient was doing poorly, and should be transferred down to the intensive care unit for further monitoring and management. The patient was very lethargic, and looked very unstable, with impending respiratory failure. When I first saw the patient he was on room air, and receiving an IV with 3 ampoules of sodium bicarb in D5W at 80 cc an hour. I asked for stat blood gas, when the patient came to the intensive care unit. His pO2 was 40, pCO2 27, pH is 7.41. After evaluating the patient, I decided to intubate the patient which we did, and place a central line and arterial line, both of which we did. Current laboratory data includes a blood gas showing a pO2 of 393, pCO2 41, pH is 7.26. Saturations are 100%. White count is 18.9, hemoglobin 8.3, hematocrit 26.3, and a platelet count of 156,000. Sodium 137, potassium 4.5, chlorides 106, CO2 14, anion gap 17, BUN 69.6, and creatinine 3. Glucose was 126. Lactic acid was 2.8. Bilirubin was 1.5. Ammonia level was up to 259. Cultures of the ascitic fluid are thus far negative. Chest x-ray shows endotracheal tube to be in good position. Central line is in good position, without complication. Progress note dated October 20, 2023. The patient is seen today in room 263. The patient was intubated, and lined yesterday, for respiratory failure. The patient has a history of chronic liver disease, with cirrhosis, ascites, and encephalopathy. Currently, the patient is on volume assist-control, rate 20, tidal volume 400, FiO2 40%, PEEP of 5. Blood gases show pO2 108, pCO2 28, pH is 7.46. This blood gases consistent with a mild respiratory alkalosis. The patient is getting D5W with 3 ampoules of sodium bicarbonate at 80 cc an hour. The patient is getting norepinephrine at 3 mcg/min, propofol at 50 mcg/kg/min. The patient has been having tremor-like activity, and could be seizing. The brain CT was negative. The patient will have tube feedings beginning today. We have ordered an EEG. In addition, I have asked the nurse to give the patient 2 mg of Ativan, to see if the tremors cease. White count is 13, hemoglobin 7, hematocrit 23, platelet count 106,000. Sodium 138, potassium 3.5, chlorides 111, CO2 17, anion gap 10, BUN 63, creatini ne 2.27. Glucose is 160. Ammonia level is down to 49. Albumin is 3.1. Thus far, cultures are negative. The patient's chest x-ray shows the endotracheal tube to be high in the trachea, and have asked respiratory therapy to push it down to 1.5 cm. Progress note dated October 21, 2023. The patient is seen today in room 263. He remains on mechanical ventilator. He is on volume assist-control, rate 20, tidal volume 400, FiO2 40%, PEEP of 5. Blood gases show pO2 of 64, pCO2 37, pH is 7.47. The patient is getting propofol at 50 mcg/kg/min, D5W with 3 ampoules of bicarbonate at 80 cc an hour, fentanyl drip at 1 mcg/kg/h, vital AF at 29 cc an hour, with a goal of 43 cc an hour. The patient also continues on Rocephin. White count is 10.3, hemoglobin 7, hematocrit 22.8, and platelet count 109,000. Sodium 137, potassium 3.7, chlorides 104, CO2 24, BUN 54, and creatinine 1.76. Glucose is 116. Ammonia level is 56. Calcium is 7.7. Cultures are thus far negative. Chest x-ray is unchanged. There is a small left pleural effusion. NG tube, endotracheal tube, and central venous catheter, are in appropriate positions. Progress note dated October 22, 2023. 43-year-old male seen again in the intensive care unit, room 263. He remains on the mechanical ventilator. The patient's ventilator settings include volume assist-control, rate 20, tidal volume 400, FiO2 40%, PEEP of 5. Blood gases show pO2 68, pCO2 45, pH is 7.41. The patient is on norepinephrine at 9 mcg/min, propofol at 50 mcg/kg/min, lactated Ringer's at 75 cc an hour, and fentanyl at 1 mcg/kg/h. The patient is getting tube feedings with vital AF at 43 cc an hour, which is goal. Microbiologic studies are thus far negative. The patient is on Rocephin. He has received 1 unit of packed red blood cells. Current labs include a white count 10.5, hemoglobin 6.6, hematocrit 22.2, and a platelet count of 97,000. Sodium 138, potassium 3.4, chlorides 106, CO2 26, BUN 53, creatinine 1.78. Glucose is 140. Albumin is 2.8. Total bilirubin is 1.4. Chest x-ray shows air space opacities, in the lung bases, which have worsened. Lines and tubes are in good placement. Note dated October 23, 2023. 43-year-old male seen again in room 263. He remains on mechanical ventilator. Vent settings include volume assist-control, rate 20, tidal volume 400, FiO2 40%, PEEP of 5. Blood gases show pO2 87, pCO2 44, pH is 7.40. The patient is getting lactated Ringer's at 75 cc an hour, propofol at 45 mcg/kg/min, norepinephrine at 7.7 mcg/min, and saline at 10 cc an hour. The patient is also getting vital AF, at 10 cc an hour. He continues on Zosyn. We will check a procalcitonin level. The patient will have a daily interruption of sedation, without a spontaneous breathing trial today. Current labs include a white count of 12.7, hemoglobin 7.8, hematocrit 26, platelet count 75,000. Sodium 138, potassium 4.1, chlorides 105, CO2 26, BUN 47, creatinine 1.35. Glucose is 141. Albumin is 3.1. Cultures thus far negative including blood and sputum. Chest x-ray shows the OG tube, to remain in satisfactory position. There is persistent bibasilar infiltrates and/or atelectasis. Progress note dated October 24, 2023. 43-year-old male seen again in room 263. The patient remains on the mechanical ventilator. He is on volume assist-control, rate 20, tidal volume 400, FiO2 30%, PEEP of 5. Blood gases show pO2 69, pCO2 39, and pH is 7.44. The patient remains on propofol at 20 mcg/kg/min, norepinephrine at 2.4 mcg/min, lactated Ringer's at 50 cc an hour, and saline at 10 cc an hour. Patient is getting vital AF at 20, with a goal at 20 cc an hour. The patient continues on Zosyn. His procalcitonin level was 3.62. He will get 1 dose of Lasix 40 mg IV push. His lactated Ringer's IV, will be made KVO. Current labs include a white count of 17.6, hemoglobin 7.4, hematocrit 24.8, and a platelet count of 98,000. Sodium 142, potassium 3.8, chlorides 107, CO2 26, BUN 51, creatinine 1.36. Calcium is 8.2. Albumin is 3.0. Ammonia level was 22. All cultures are thus far negative. Chest x-ray shows small lung volumes, with basilar infiltrates or atelectasis, and small effusions. Progress note dated October 25, 2023. 43-year-old male seen again in room 263. The patient remains on the ventilator. He is on volume assist-control, rate 20, tidal volume 400, FiO2 30%, PEEP of 5. Blood gases show pO2 of 70, pCO2 39, pH is 7.46. The patient getting lactated Ringer's at 20 cc an hour, norepinephrine at 5.6 mcg/min, and vital AF at 20 cc an hour, which is goal. The patient will have a spontaneous breathing trial today, as he has been off of propofol for some time. His cultures are negative. He continues on Zosyn. I am not hopeful that the patient will be extubated today. White count 19.1, hemoglobin 7.3, hematocrit 23.8, platelet count 105,000. Sodium 143, potassium 3.8, chlorides 109, CO2 26, BUN 62, creatinine 1.60. Glucose 131. Albumin 2.8. Calcium 8.1. Cultures are thus far negative. Chest x-ray shows small lung volumes. Endotracheal tube is in appropriate position in the trachea. There is basilar atelectasis, and small bilateral pleural effusions. On today's evaluation of 10/26/2023, the patient remains intubated on mechanical ventilator. As mentioned, the patient is post repair of incarcerated abdominal/umbilical hernia. The patient is known to have liver cirrhosis s econdary to alcoholism. The patient has large ascites in addition. The patient has been off Precedex since 10/24/2023. On today's evaluation, he is extremely lethargic. He is following some simple commands. Unable to cough. Unable to raise his arms against gravity. His serum ammonia level has been measured at 61 and the patient continues to be on lactulose. His last bowel movement was 48 ho urs ago. In terms of his breathing, the patient is on a assist-control mode of mechanical ventilation at rate of 20, tidal volume of 400, FiO2 30% with a PEEP of 5 with a blood gas showing a pH of 7.47 with a pCO2 of 38 and pO2 of 71. The patient remains on low-dose norepinephrine running at 0.02 mcg/kg/min. Lactated Ringer's running at a rate of. Urine output is adequate at 60 cc. Earlier this morning, the patient was taken off the assist-control mode of mechanical ventilation and placed on a pressure support of 7 and a PEEP of 5 and he was able to generate adequate minute ventilation and tidal volume. He has a CHRSI drain and output is minimal and this was serous in nature. The white cell count is 14.7 with a heme of 7.1 and a platelet count of 102. INR is 1.5, sodium is at 144, BUN is 73 with a creatinine of 1.6 and a sodium levels at 144 and a potassium level is at 3.7. The patient is on IV Zosyn as an empiric antibiotic coverage. Based on all this, and based on the large ascitic fluid, I did a bedside paracentesis and the patient had a total of 5 L of ascitic fluid was as pirated and this will be sent for cultures and analysis. His sputum samples from 10/24/2023 is showing Burkholderia chest x-ray reveals smaller lung volumes along with some small bilateral pleural effusions. The patient is on DuoNeb nebulized treatments [id number]. The patient on midodrine 15 mg p.o. 3 times daily. Low-dose norepinephrine. 10/27/2023, patient remains intubated on the mechanical ventilator. Remains encephalopathic despite some improvement in his ammonia level. The patient serum ammonia level is down to 48 and the patient is currently on lactulose and rifaximin. Noted the patient has a fecal management system in place and is producing adequate amount of bowel movement. Grimaces to painful stimulation. Occasionally follows commands. Very much lethargic. Very much weak. Has a weak cough. May not be able to protect his airway postextubation for that reason we kept him on the mechanical ventilator for now. On today's evaluation, he is showing a less distended abdomen as the patient underwent a paracentesis and the ascitic fluid showed no clear indication for an underlying infection. The cell count of mesenteric fluid was 170. Cultures are still pending for now. The patient remains on pressure control mode of mechanical ventilation at the rate of 50, pressure control of 50, expiratory, 0.8, FiO2 of 30% with a PEEP of 5. Blood gas showed a pH of 7.33 with a pCO2 of 31 and a pO2 of 83. The patient remains off sedative medications. His labs from today showed a white cell count of 14.2 with a hemoglobin of 7.4 and a platelet count of 100. BUN is 73 with a creatinine 1.47 and a sodium noted at 145 with a potassium level is at 3.6. Serum bicarb is at 22. The chest x-ray findings chronic stable bilateral lower lobe pulmonary infiltrates and the patient remains on broad-spectrum antibiotics and the patient remains on IV meropenem. 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 10/28/23 the patient is being seen for a follow-up. Note that the patient was weaned off mechanical ventilator and the patient was extubated yesterday without any major difficulties. The patient is currently on room air oxygen. No significant respiratory distress. He is much more alert and awake. He is following some simple commands. He is stooling excessively in the stool output in the order of 1000 mL over the past 24 hours. He remains on lactulose 20 g 3 times a day. His serum ammonia level has been downtrending and ammonia level is currently down to 48 sodium levels at 151. Potassium is at 3.7, BUN 73 with a creatinine of 1.33. Glucose is 129. Abdomen is again distended and the patient is having significant abdominal discomfort because of ongoing ascites and abdominal distention. The patient was started on D5 water by nephrology and currently D5 water is running at 60 cc an hour. The patient remains on IV meropenem. Patient is on octreotide. Output from the CHRIS drain is minimal. No pressors. 10/29/2023, the patient is being seen for a follow-up. Awake and alert and communicating. Encephalopathy essentially improving and the patient's ammonia level is considerably down to 24. He continues to have high output stool and lactulose was held today. Paracentesis was done yesterday with a total of 5 L of ascitic fluid being drained. The patient was given IV albumin replacement. BUN is 66 with a creatinine of 1.27 and sodium levels at 135 with a potassium level of 3.6. Hemoglobin is down to 6.9 and a white cell count of 18.4. Patient is currently on no pressors. The patient remains on IV meropenem. The patient remains on a combination of lactulose and Xifaxan. Continues to have edema in all 4 extremities. There is generalized weakness in all 4 extremities. Nevertheless, there is no focal neurological deficits. Level of alertness is improved considerably. 10/30/2023, the patient is being seen for a follow up. Awake and alert and communicating. Abdomen is distended. The patient is currently on room air oxygen. No signs of any respiratory distress. He is stooling. Ammonia level is. BUN is 65 with a creatinine of 1.3. Sodium is at 131, the white cell count at 19.2 with a hemoglobin of 8.3. Remains on IV meropenem. Started on Lasix 40 mg IV every 12 hours. Patient is also on Aldactone. The patient remains on rifaximin and lactulose. He remains on midodrine. No other significant events overnight. 10/31/2023, the patient is being seen for a follow-up. The patient has no specific complaints. Abdomen is significant distended and he is having some abdominal discomfort along with massive ascites. Based on that, another paracentesis was done at the bedside and a total of 8.8 L of fluid aspirated and the patient was given IV albumin and total of 25 g. Remains on lactulose. R emains on rifaximin. Hemodynamically stable. Blood pressure is stable. Electrolytes are all stable with a sodium level of 131, serum bicarb is at 19, BUN 65 with a creatinine of 1.5 and a white cell count of 20 with a hemoglobin 9.2. Remains on IV meropenem. Mental status is appropriate and the patient is following commands and answer questions appropriately. On 11/01/2023, the patient is post paracentesis. A total of 8.8 L of ascitic fluid was drained from the patient's abdomen. Remains hemodynamically stable. Abdomen is less distended. No respiratory distress. Mental status is adequate. Creatinine is at 1.5 with a BUN of 63 and a sodium level of 129. The patient remains on IV Lasix 40 mg every 24 hours and Aldactone. Remains on a combination of octreotide, lactulose and rifaximin. No new complaints otherwise. The white cell count of 20.4. Hemoglobin 8.9. Platelet count is at 217. The patient is currently on room air oxygen. Patient was evaluated today on 11/02/2023, patient is on room air, hemodynamically stable, blood pressure 107/66. Does not seem to be in any distress, however the patient continues to have recurrent episodes of worsening ascites. Patient has been drained over the last few days, had a total of 8.8 L drained from the abdomen, patient remains on diuretics he is also on octreotide, lactulose, and rifaximin. WBC count is 18.8 hemoglobin 8.7 sodium 129 potassium 4.1 BUN 63 and creatinine 1.56 Reevaluate today on 11/03/2023, patient is basically about the same, however his arthritis is getting worse, patient i underwent ultrasound-guided for paracentesis and 9600 cc of clear straw-colored fluid was drained. On room air, O2 sats 92% blood pressure 101/54. Mean of 69. WBC count of 15.3 hemoglobin 8.6 sodium is 127 BUN 67 creatinine 1.89 Objective - Vital Signs Vital signs: Vital Signs Temp 98.0 F 11/03/23 08:00 Pulse 99 11/03/23 12:30 Resp 18 11/03/23 12:30 BP 101/54 11/03/23 12:30 Pulse Ox 92 L 11/03/23 12:30 FiO2 2 10/28/23 00:00 Intake & Output 11/02/23 11/03/23 11/03/23 18:59 06:59 18:59 Intake Total 0 Output Total 550 400 Balance 0 -550 -400 Weight 80 kg 93.5 kg Intake: Oral 0 Output: Urine 550 Stool 400 Other: Voiding Method Indwelling Catheter Indwelling Catheter Indwelling Catheter # Bowel Movements 1 1 ABP, PAP, CO, CI - Last Documented Arterial Blood Pressure 109/54 - Exam General: Revealed 43-year-old male cachectic, chronically ill, on room air. O2 sat is 92% Skin: Skin is warm and dry and no rashes or lesions are noted. Eye: Pupils are equal, round and reactive to light, extra-ocular movements are intact; there is normal conjunctiva bilaterally. Ears, nose, mouth and throat: There are moist mucous membranes and no oral lesi ons. Neck: The neck is supple, there is no tenderness or JVD. Cardiovascular: There is a regular rate and rhythm. No murmur, rub or gallop is appreciated. Respiratory: Clear bilaterally no rhonchi or wheezes y Gastrointestinal: Distended abdomen with ascites. Back: There is no tenderness to palpation in the midline. There is no obvious deformity. Musculoskeletal: Normal ROM, no tenderness, 2+ bipedal edema Neurological: CN II-XII intact, Cranial nerves III through XII are intact. There are no obvious motor or sensory deficits. Coordination appears grossly intact. Speech is normal. Psychiatric: Cooperative, appropriate mood & affect, normal judgment. - Labs CBC & Chem 7: 11/03/23 09:08 11/03/23 09:08 Labs: Abnormal Lab Results - Last 24 Hours (Table) 11/02/23 11/02/23 11/03/23 Range/Units 16:14 20:08 09:08 WBC (3.8-10.6) k/uL RBC (4.30-5.90) m/uL Hgb (13.0-17.5) gm/dL Hct (39.0-53.0) % RDW (11.5-15.5) % Neutrophils # (1.3-7.7) k/uL Monocytes # (0-1.0) k/uL PT 18.4 H (10.0-12.5) sec INR 1.8 H (<1.2) Sodium (137-145) mmol/L Carbon Dioxide (22-30) mmol/L BUN (9-20) mg/dL Creatinine (0.66-1.25) mg/dL POC Glucose (mg/dL) 127 H 126 H (70-110) mg/dL Calcium (8.4-10.2) mg/dL Magnesium (1.6-2.3) mg/dL 11/03/23 11/03/23 Range/Units 09:08 09:08 WBC 15.3 H (3.8-10.6) k/uL RBC 3.06 L (4.30-5.90) m/uL Hgb 8.6 L (13.0-17.5) gm/dL Hct 27.7 L (39.0-53.0) % RDW 23.3 H (11.5-15.5) % Neutrophils # 11.2 H (1.3-7.7) k/uL Monocytes # 1.7 H (0-1.0) k/uL PT (10.0-12.5) sec INR (<1.2) Sodium 127 L (137-145) mmol/L Carbon Dioxide 19 L (22-30) mmol/L BUN 67 H (9-20) mg/dL Creatinine 1.89 H (0.66-1.25) mg/dL POC Glucose (mg/dL) (70-110) mg/dL Calcium 7.5 L (8.4-10.2) mg/dL Magnesium 2.5 H (1.6-2.3) mg/dL Microbiology - Last 24 Hours (Table) 11/01/23 15:07 Blood Culture - Preliminary Blood 11/01/23 15:07 Blood Culture - Preliminary Blood 11/01/23 16:30 Catheter Tip Culture - Preliminary Catheter Tip Assessment and Plan Assessment: Impression: Acute presentation with incarcerated umbilical hernia status postsurgical repair postoperative day #18 Alcoholic liver cirrhosis with ascites requiring multiple paracentesis procedures Acute hypoxic respiratory failure secondary to fulminant liver failure on his initial presentation requiring intubation mechanical ventilation Chronic kidney disease Hyperammonemia secondary to chronic liver disease and associated with hepatic encephalopathy Hypertension History of depression and PTSD History of chronic tobacco use Anemia of chronic disease Medical debility secondary to multiple comorbidities as noted above Recommendation: Continue present supportive care measures continue scheduled paracentesis procedure Continue lactulose rifaximin and diuretics Continue close monitoring of his ammonia level Continue diuretics Closely monitor electrolytes and renal profile patient is a good set up for hepatorenal syndrome Overall prognosis remains extremely poor and guarded Time with Patient: Less than 30
--- NOTE | 2023-11-03 16:29 | P.PN ---
Subjective Progress Note Date: 11/03/23 Principal diagnosis: Incarcerated umbilical hernia Patient has no new complaints. Seems more alert today. Had a paracentesis performed earlier today. Over 9 L removed. Still complaining of diffuse discomforts. Tolerating diet although appetite poor. Objective - Vital Signs Vital signs: Vital Signs Temp 98.8 F 11/03/23 13:00 Pulse 96 11/03/23 14:00 Resp 18 11/03/23 14:00 BP 87/45 11/03/23 13:00 Pulse Ox 92 L 11/03/23 13:00 FiO2 2 10/28/23 00:00 Intake & Output 11/02/23 11/03/23 11/03/23 18:59 06:59 18:59 Intake Total 0 Output Total 550 400 Balance 0 -550 -400 Weight 80 kg 93.5 kg Intake: Oral 0 Output: Urine 550 Stool 400 Other: Voiding Method Indwelling Catheter Indwelling Catheter Indwelling Catheter # Bowel Movements 1 1 ABP, PAP, CO, CI - Last Documented Arterial Blood Pressure 109/54 - Exam Abdomen: Soft, less distended, incision clean and dry - Labs CBC & Chem 7: 11/03/23 09:08 11/03/23 09:08 Labs: Abnormal Lab Results - Last 24 Hours (Table) 11/02/23 11/03/23 11/03/23 Range/Units 20:08 09:08 09:08 WBC 15.3 H (3.8-10.6) k/uL RBC 3.06 L (4.30-5.90) m/uL Hgb 8.6 L (13.0-17.5) gm/dL Hct 27.7 L (39.0-53.0) % RDW 23.3 H (11.5-15.5) % Neutrophils # 11.2 H (1.3-7.7) k/uL Monocytes # 1.7 H (0-1.0) k/uL PT 18.4 H (10.0-12.5) sec INR 1.8 H (<1.2) Sodium (137-145) mmol/L Carbon Dioxide (22-30) mmol/L BUN (9-20) mg/dL Creatinine (0.66-1.25) mg/dL POC Glucose (mg/dL) 126 H (70-110) mg/dL Calcium (8.4-10.2) mg/dL Magnesium (1.6-2.3) mg/dL 11/03/23 Range/Units 09:08 WBC (3.8-10.6) k/uL RBC (4.30-5.90) m/uL Hgb (13.0-17.5) gm/dL Hct (39.0-53.0) % RDW (11.5-15.5) % Neutrophils # (1.3-7.7) k/uL Monocytes # (0-1.0) k/uL PT (10.0-12.5) sec INR (<1.2) Sodium 127 L (137-145) mmol/L Carbon Dioxide 19 L (22-30) mmol/L BUN 67 H (9-20) mg/dL Creatinine 1.89 H (0.66-1.25) mg/dL POC Glucose (mg/dL) (70-110) mg/dL Calcium 7.5 L (8.4-10.2) mg/dL Magnesium 2.5 H (1.6-2.3) mg/dL Microbiology - Last 24 Hours (Table) 11/01/23 15:07 Blood Culture - Preliminary Blood 11/01/23 15:07 Blood Culture - Preliminary Blood 11/01/23 16:30 Catheter Tip Culture - Preliminary Catheter Tip Assessment and Plan (1) Incarcerated umbilical hernia Narrative/Plan: Patient gradually improving. Drain removed yesterday. Continue encouraging oral intake. Monitor for recurrent ascites. Remove one half bianca. Current Visit: Yes Status: Acute Code(s): K42.0 - UMBILICAL HERNIA WITH OBSTRUCTION, WITHOUT GANGRENE SNOMED Code(s): 596937022
[2023-11-03 16:38] LABS: Glucose,Whole Blood 109 mg/dL (70-110)
[2023-11-03] MEDS: ALBUMIN HUMAN 25% 50 ML in EMPTY BAG 1 BAG IVPB SCH (17:38)
[2023-11-03] MEDS: PANTOPRAZOLE 40 MG/10 ML VIAL IVP SCH (20:07)
[2023-11-04 05:48] LABS: Glucose,Whole Blood 93 mg/dL (70-110)
--- NOTE | 2023-11-04 09:52 | P.PN ---
Subjective Progress Note Date: 11/04/23 Patient appears comfortable today, abdominal ascites is improved status post paracentesis yesterday and when she had 9 L of fluid removed. Patient has no complaints at this time. Case management is working on dispo plan and is presently awaiting authorization from patient's [employer] insurance prior to discharge. Today should be lastly patient's antibiotics, I defer this to the infectious disease team. 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 He presented to the emergency department on 10/16/23 with a chief complaint of intractable abdominal pain and reports umbilical hernia is now nonreducible. Vital signs upon arrival showed BP 115/69, HR 76, RR 18, T 97.8 F, and SpO2 100% on RA. EKG showed normal sinus rhythm at 63 bpm with no noted T wave or ST abnormalities. CBC showing bicytopenia with Hg 7.9 and Plt 98. Coagulation profile showed PT of 14.7 and INR 1.4. BMP showing Na 133, Cl 110, bicarb of 13, and anion gap of 10, BUN of 35, creatinine 1.65, GFR 51. Blood glucose was 119. Lactic acid was 1.8. Liver profile was unremarkable. Patient was evaluated by general surgeon, he is being admitted to general surgery team with plans to be taken to the OR for open surgical repair of incarcerated umbilical hernia. We were consulted for preoperative medical clearance and postoperative medical management. Patient underwent open repair of incarcerated umbilical hernia with umbillectomy on 10/[address] Hair. Renal function continued to worsen. Also noted to be more acidotic. Patient was started on albumin and octreotide. Midodrine was increased and Nephrology was consulted. Patient was started on bicarb drip. Renal function improving. Patient became encephalopathic on 10/18, started on rectal lactulose and transferred to medical ICU. His mentation continued to worsen, and he was intubated on 10/18. Started on Rocephin for concerns of SBP on 10/18. He has required Levophed since being intubated which is being slowly titrated down. CXR showing signs of right sided PNA, pro-mony elevated at 3.62, Rocephin switched to Zosyn on 10/21. Generalized tremors noted on 10/19, CT brain was negative for acute pathology and EEG showed moderate to severe background slowing. Started on Fentanyl drip (10/21-10/22) which improved his tremors, likely related to pain. There was concern for GI bleed as well. Hg downtrending to 6.6 on 10/21 requiring 1 unit PRBC. Assessment/plan: Metabolic encephalopathy, acute Secondary to hepatic encephalopathy and sepsis Decompensated liver cirrhosis Acute Kidney Injury, secondary to ATN from hypotension, possibly complicated by hepatorenal syndrome - large volume paracentesis PRN (last on 11/02) - albumin infusion s/p paracentesis - octreotide 100mg q8h - rifaximin 550mg BID discontinued, lactulose 20mg daily - midodrine 15mg AC-TID - spironolactone 25mg BID [facility] Associated Pneumonia Septic Shock, now resolved - ongoing meropenem (10/25 - present), completed zosyn (10/21-10/25), daptomycin (10/31 - present); appropriate abx started on 10/25, this is day 12/04 - 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 - BCx have been NGTD - SBP ruled out with < 250PMNs in cirrhotic patient - C Diff ruled out - catheter tip Cx is NGTD Bicytopenia related to cirrhosis Acute Blood Loss Anemia, expected outcome of surgery - continue to monitor daily - transfuse PRN for Hgb < 7 S/P Incarcerated Hernia Repair - care per surgical team Pt is Full Code Objective - Vital Signs Vital signs: Vital Signs Temp 98 F 11/04/23 08:00 Pulse 97 11/04/23 08:00 Resp 18 11/04/23 08:00 BP 99/56 11/04/23 08:00 Pulse Ox 95 11/04/23 08:00 FiO2 2 10/28/23 00:00 Intake & Output 11/03/23 11/04/23 11/04/23 18:59 06:59 18:59 Output Total 400 280 Balance -400 -280 Weight 75.5 kg Output: Urine 280 Stool 400 Other: Voiding Method Indwelling Catheter Indwelling Catheter # Bowel Movements 1 ABP, PAP, CO, CI - Last Documented Arterial Blood Pressure 109/54 - Labs CBC & Chem 7: 11/03/23 09:08 11/03/23 18:42 Labs: Abnormal Lab Results - Last 24 Hours (Table) 11/03/23 11/03/23 11/03/23 Range/Units 09:08 09:08 09:08 WBC 15.3 H (3.8-10.6) k/uL RBC 3.06 L (4.30-5.90) m/uL Hgb 8.6 L (13.0-17.5) gm/dL Hct 27.7 L (39.0-53.0) % RDW 23.3 H (11.5-15.5) % Neutrophils # 11.2 H (1.3-7.7) k/uL Monocytes # 1.7 H (0-1.0) k/uL PT 18.4 H (10.0-12.5) sec INR 1.8 H (<1.2) Sodium 127 L (137-145) mmol/L Carbon Dioxide 19 L (22-30) mmol/L BUN 67 H (9-20) mg/dL Creatinine 1.89 H (0.66-1.25) mg/dL Calcium 7.5 L (8.4-10.2) mg/dL Magnesium 2.5 H (1.6-2.3) mg/dL 11/03/23 Range/Units 18:42 WBC (3.8-10.6) k/uL RBC (4.30-5.90) m/uL Hgb (13.0-17.5) gm/dL Hct (39.0-53.0) % RDW (11.5-15.5) % Neutrophils # (1.3-7.7) k/uL Monocytes # (0-1.0) k/uL PT (10.0-12.5) sec INR (<1.2) Sodium 127 L (137-145) mmol/L Carbon Dioxide (22-30) mmol/L BUN (9-20) mg/dL Creatinine (0.66-1.25) mg/dL Calcium (8.4-10.2) mg/dL Magnesium (1.6-2.3) mg/dL Microbiology - Last 24 Hours (Table) 11/01/23 15:07 Blood Culture - Preliminary Blood 11/01/23 15:07 Blood Culture - Preliminary Blood 11/01/23 16:30 Catheter Tip Culture - Final Catheter Tip
[2023-11-04 11:28] LABS: Anisocytosis Moderate; Basophils % (A) 0 %; Eosinophils # (A) 0.1 k/uL (0-0.7); Eosinophils % (A) 1 %; HCT 26.3 % (39.0-53.0); Hypochromasia Moderate; Lymphocytes # (A) 0.9 k/uL (1.0-4.8); Lymphocytes % (A) 9 %; MCH 27.8 pg (25.0-35.0); MCHC 30.5 g/dL (31.0-37.0); MCV 91.2 fL (80.0-100.0); Macrocytosis Slight; Mean Platelet Volume 8.1; Monocytes # (A) 1.2 k/uL (0-1.0); Monocytes % (A) 11 %; Neutrophils # (A) 8.2 k/uL (1.3-7.7); Neutrophils % (A) 76 %; Platelet Count 246 k/uL (150-450); RBC 2.89 m/uL (4.30-5.90); RDW 23.4 % (11.5-15.5); WBC 10.8 k/uL (3.8-10.6)
[2023-11-04 11:32] LABS: Glucose,Whole Blood 98 mg/dL (70-110)
[2023-11-04 11:39] LABS: African American GFR (CKD) 54 (>60 ml/min/1.73 sqM); Anion Gap 11 mmol/L; Blood Urea Nitrogen 69 mg/dL (9-20); Calcium 7.5 mg/dL (8.4-10.2); Carbon Dioxide 17 mmol/L (22-30); Chloride 101 mmol/L (98-107); Creatine Kinase <20 U/L (55-170); Glucose 91 mg/dL (74-99); Magnesium 2.6 mg/dL (1.6-2.3); Non-African American GFR(CKD) 47 (>60 ml/min/1.73 sqM); Potassium 4.5 mmol/L (3.5-5.1); Sodium 129 mmol/L (137-145)
--- NOTE | 2023-11-04 12:39 | P.PN ---
Subjective Progress Note Date: 11/03/23 Principal diagnosis: Reason for follow-up is pneumonia Patient is a 43-year-old male past medical history significant for hypertension hyperlipidemia alcoholism liver cirrhosis presenting to the hospital on 10/16/2023 for evaluation of abdominal pain, has been diagnosed with a incarcerated umbilical hernia status post open repair patient did have a worsening respiratory status requiring intubation on 10/19/2023 patient did have positive sputum culture with Burkholderia cepacia prompting this consultation. Patient did have a paracentesis at the bedside on 10/31/2023 with removal of 8.8 L fluid On today's evaluation that is 11/03/2023,the patient denies any fever or any chills, patient is breathing comfortably on room air, the patient denies chest pain shortness of breath and no significant cough, patient did have some abdominal discomfort and distention no nausea vomiting or any worsening diarrhea. Patient white count is down to 15.3, creatinine is 1.8 9 repeat blood and catheter cultures pending Objective - Vital Signs Vital signs: Vital Signs Temp 98.0 F 11/03/23 08:00 Pulse 98 11/03/23 11:37 Resp 18 11/03/23 11:37 BP 100/56 11/03/23 11:37 Pulse Ox 92 L 11/03/23 11:37 FiO2 2 10/28/23 00:00 Intake & Output 11/02/23 11/03/23 11/03/23 18:59 06:59 18:59 Intake Total 0 Output Total 550 400 Balance 0 -550 -400 Weight 80 kg 93.5 kg Intake: Oral 0 Output: Urine 550 Stool 400 Other: Voiding Method Indwelling Catheter Indwelling Catheter Indwelling Catheter # Bowel Movements 1 1 ABP, PAP, CO, CI - Last Documented Arterial Blood Pressure 109/54 - Exam GENERAL DESCRIPTION: Middle-age male lying in bed in no distress RESPIRATORY SYSTEM: Unlabored breathing , decreased breath sounds at bases HEART: S1 S2 regular rate and rhythm , ABDOMEN: Soft , mild distention EXTREMITIES: edema feet - Labs CBC & Chem 7: 11/03/23 09:08 11/03/23 09:08 Labs: Abnormal Lab Results - Last 24 Hours (Table) 11/02/23 11/02/23 11/03/23 Range/Units 16:14 20:08 09:08 WBC (3.8-10.6) k/uL RBC (4.30-5.90) m/uL Hgb (13.0-17.5) gm/dL Hct (39.0-53.0) % RDW (11.5-15.5) % Neutrophils # (1.3-7.7) k/uL Monocytes # (0-1.0) k/uL PT 18.4 H (10.0-12.5) sec INR 1.8 H (<1.2) Sodium (137-145) mmol/L Carbon Dioxide (22-30) mmol/L BUN (9-20) mg/dL Creatinine (0.66-1.25) mg/dL POC Glucose (mg/dL) 127 H 126 H (70-110) mg/dL Calcium (8.4-10.2) mg/dL Magnesium (1.6-2.3) mg/dL 11/03/23 11/03/23 Range/Units 09:08 09:08 WBC 15.3 H (3.8-10.6) k/uL RBC 3.06 L (4.30-5.90) m/uL Hgb 8.6 L (13.0-17.5) gm/dL Hct 27.7 L (39.0-53.0) % RDW 23.3 H (11.5-15.5) % Neutrophils # 11.2 H (1.3-7.7) k/uL Monocytes # 1.7 H (0-1.0) k/uL PT (10.0-12.5) sec INR (<1.2) Sodium 127 L (137-145) mmol/L Carbon Dioxide 19 L (22-30) mmol/L BUN 67 H (9-20) mg/dL Creatinine 1.89 H (0.66-1.25) mg/dL POC Glucose (mg/dL) (70-110) mg/dL Calcium 7.5 L (8.4-10.2) mg/dL Magnesium 2.5 H (1.6-2.3) mg/dL Microbiology - Last 24 Hours (Table) 11/01/23 15:07 Blood Culture - Preliminary Blood 11/01/23 15:07 Blood Culture - Preliminary Blood 11/01/23 16:30 Catheter Tip Culture - Preliminary Catheter Tip Assessment and Plan (1) Burkholderia cepacia infection Current Visit: Yes Status: Acute Code(s): A49.8 - OTHER BACTERIAL INFECTIONS OF UNSPECIFIED SITE SNOMED Code(s): 497284473 (2) Bilateral pneumonia Current Visit: No Status: Acute Code(s): J18.9 - PNEUMONIA, UNSPECIFIED ORGANISM SNOMED Code(s): 225739259 Plan: 1patient presented to hospital with abdominal pain has been diagnosed with incarcerated abdominal hernia s/p open repair and the patient subsequently did have worsening of his respiratory status and mentation requiring intubation now 10/19/2023 now with hypotension elevated white count sputum culture positive for Burkholderia cepacia complex chest x-ray with bilateral basilar infiltrate c oncerning for nosocomial gram-negative pneumonia 2-patient to continue with meropenem 1 g every 8 hours to finish a 10-day course of therapy 3-patient with leukocytosis stool for C. difficile negative, source possibly left subclavian catheter which has been discontinued culture has been obtained which are currently pending, patient white count is trending down to continue with the daptomycin while waiting for the culture to finalize Dictation was produced using [employer] software. please excuse any grammatical, word or spelling errors.
--- NOTE | 2023-11-04 12:40 | P.PN ---
Subjective Progress Note Date: 11/04/23 Principal diagnosis: Reason for follow-up is pneumonia Patient is a 43-year-old male past medical history significant for hypertension hyperlipidemia alcoholism liver cirrhosis presenting to the hospital on 10/16/2023 for evaluation of abdominal pain, has been diagnosed with a incarcerated umbilical hernia status post open repair patient did have a worsening respiratory status requiring intubation on 10/19/2023 patient did have positive sputum culture with Burkholderia cepacia prompting this consultation. Patient did have a paracentesis at the bedside on 10/31/2023 with removal of 8.8 L fluid with subsequent paracentesis by radiology On today's evaluation that is 11/04/2023,the patient remains to be afebrile, patient is on room air not requiring supplemental oxygen and denies any shortness of breath no chest pain or cough.Patient denies having any nausea or vomiting, has been complaining some abdominal discomfort and distention and denies any worsening diarrhea did have bowel movement. Patient white count normalized to 10.8 creatinine 1.75 blood and catheter cultures so far pending Objective - Vital Signs Vital signs: Vital Signs Temp 98 F 11/04/23 12:00 Pulse 96 11/04/23 12:00 Resp 16 11/04/23 12:00 BP 99/54 11/04/23 12:00 Pulse Ox 96 11/04/23 12:00 FiO2 2 10/28/23 00:00 Intake & Output 11/03/23 11/04/23 11/04/23 18:59 06:59 18:59 Output Total 400 280 Balance -400 -280 Weight 75.5 kg Output: Urine 280 Stool 400 Other: Voiding Method Indwelling Catheter Indwelling Catheter Indwelling Catheter # Bowel Movements 1 ABP, PAP, CO, CI - Last Documented Arterial Blood Pressure 109/54 - Exam GENERAL DESCRIPTION: Middle-age male lying in bed in no distress RESPIRATORY SYSTEM: Unlabored breathing , decreased breath sounds at bases HEART: S1 S2 regular rate and rhythm , ABDOMEN: Soft , mild distention EXTREMITIES: edema feet - Labs CBC & Chem 7: 11/04/23 09:48 11/04/23 09:48 Labs: Abnormal Lab Results - Last 24 Hours (Table) 11/03/23 11/04/23 11/04/23 Range/Units 18:42 09:48 09:48 WBC 10.8 H (3.8-10.6) k/uL RBC 2.89 L (4.30-5.90) m/uL Hgb 8.0 L (13.0-17.5) gm/dL Hct 26.3 L (39.0-53.0) % MCHC 30.5 L (31.0-37.0) g/dL RDW 23.4 H (11.5-15.5) % Neutrophils # 8.2 H (1.3-7.7) k/uL Lymphocytes # 0.9 L (1.0-4.8) k/uL Monocytes # 1.2 H (0-1.0) k/uL Sodium 127 L 129 L (137-145) mmol/L Carbon Dioxide 17 L (22-30) mmol/L BUN 69 H (9-20) mg/dL Creatinine 1.75 H (0.66-1.25) mg/dL Calcium 7.5 L (8.4-10.2) mg/dL Magnesium 2.6 H (1.6-2.3) mg/dL Creatine Kinase <20 L (55-170) U/L Microbiology - Last 24 Hours (Table) 11/01/23 15:07 Blood Culture - Preliminary Blood 11/01/23 15:07 Blood Culture - Preliminary Blood 11/01/23 16:30 Catheter Tip Culture - Final Catheter Tip Assessment and Plan (1) Burkholderia cepacia infection Current Visit: Yes Status: Acute Code(s): A49.8 - OTHER BACTERIAL INFECTIONS OF UNSPECIFIED SITE SNOMED Code(s): 290039190 (2) Bilateral pneumonia Current Visit: No Status: Acute Code(s): J18.9 - PNEUMONIA, UNSPECIFIED ORGANISM SNOMED Code(s): 175150953 Plan: 1patient presented to hospital with abdominal pain has been diagnosed with incarcerated abdominal hernia s/p open repair and the patient subsequently did have worsening of his respiratory status and mentation requiring intubation now 10/19/2023 now with hypotension elevated white count sputum culture positive for Burkholderia cepacia complex chest x-ray with bilateral basilar infiltrate concerning for nosocomial gram-negative pneumonia 2-patient to continue with meropenem 1 g every 8 hours to finish a 10-day course of therapy 3-patient with leukocytosis possible related to the left subclavian catheter has been discontinued cultures currently pending continue with the daptomycin while waiting for the culture to finalize Dictation was produced using [employer] software. please excuse any grammatical, word or spelling errors. Time with Patient: Less than 30
--- NOTE | 2023-11-04 13:01 | P.PN ---
Subjective Patient is seen for follow-up for acute kidney injury. S/p paracentesis with 9.69 L on 11/03/2023. status post albumin No significant complaints. Serum creatinine at 1.75 today. L Maintained on midodrine and Sandostatin. Blood pressure remains on the lower side. Sodium is 129 today. Lasix has been discontinued. Objective - Vital Signs Vital signs: Vital Signs Temp 98 F 11/04/23 12:00 Pulse 96 11/04/23 12:00 Resp 16 11/04/23 12:00 BP 99/54 11/04/23 12:00 Pulse Ox 96 11/04/23 12:00 FiO2 2 10/28/23 00:00 Intake & Output 11/03/23 11/04/23 11/04/23 18:59 06:59 18:59 Output Total 400 280 Balance -400 -280 Weight 75.5 kg Output: Urine 280 Stool 400 Other: Voiding Method Indwelling Catheter Indwelling Catheter Indwelling Catheter # Bowel Movements 1 ABP, PAP, CO, CI - Last Documented Arterial Blood Pressure 109/54 - Exam Patient is awake and comfortable. No acute distress. Examination of the heart S1 and S2 Examination of the lungs bilateral breath sounds are heard Abdomen is soft ,nontender. 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 - Labs CBC & Chem 7: 11/04/23 09:48 11/04/23 09:48 Labs: Abnormal Lab Results - Last 24 Hours (Table) 11/03/23 11/04/23 11/04/23 Range/Units 18:42 09:48 09:48 WBC 10.8 H (3.8-10.6) k/uL RBC 2.89 L (4.30-5.90) m/uL Hgb 8.0 L (13.0-17.5) gm/dL Hct 26.3 L (39.0-53.0) % MCHC 30.5 L (31.0-37.0) g/dL RDW 23.4 H (11.5-15.5) % Neutrophils # 8.2 H (1.3-7.7) k/uL Lymphocytes # 0.9 L (1.0-4.8) k/uL Monocytes # 1.2 H (0-1.0) k/uL Sodium 127 L 129 L (137-145) mmol/L Carbon Dioxide 17 L (22-30) mmol/L BUN 69 H (9-20) mg/dL Creatinine 1.75 H (0.66-1.25) mg/dL Calcium 7.5 L (8.4-10.2) mg/dL Magnesium 2.6 H (1.6-2.3) mg/dL Creatine Kinase <20 L (55-170) U/L Microbiology - Last 24 Hours (Table) 11/01/23 15:07 Blood Culture - Preliminary Blood 11/01/23 15:07 Blood Culture - Preliminary Blood 11/01/23 16:30 Catheter Tip Culture - Final Catheter Tip Assessment and Plan Assessment: 1. Acute kidney injury, ATN from hypotension versus hepatorenal syndrome. Improved. Maintained on midodrine, Sandostatin. status post albumin. No evidence of obstruction on computed tomography scan on 09/04/2023. 2. Non- gap metabolic acidosis associated with acute kidney injury. 3. Mild hyperkalemia associated with acute kidney injury and metabolic acidosis, improved 4. History of EtOH-related liver cirrhosis. 5. Status post open repair of incarcerated umbilical hernia and umbilectomy on 10/16/2023. 6. Ascites status post paracentesis of 8.8 L on 10/31/2023 7. Hepatic encephalopathy , improved. 8. Hyponatremia associated with underlying liver cirrhosis Plan: hold Lasix Repeat IV albumin today Repeat labs in a.m. Maintain midodrine and Sandostatin. Overall prognosis is guarded.
--- NOTE | 2023-11-04 13:26 | P.PN ---
Subjective Progress Note Date: 11/04/23 CHIEF COMPLAINT: Incarcerated umbilical hernia HISTORY OF PRESENT ILLNESS: Patient is status post open repair of incarcerated umbilical hernia, umbillectomy on 10/16/23. Patient is on the cardic floor. He is currently on a low fiber diet. Denies any nausea or vomiting. He is still been using the IV Dilaudid. He is having bowel movements. CHRIS drain removed. Afebrile. WBC is down from 15.3-10.8 PHYSICAL EXAM: VITAL SIGNS: Reviewed. GENERAL: intubated ABDOMEN: Soft. distended. Incision clean dry and intact Neuro: lethargic ASSESSMENT: 1. Incarcerated umbilical hernia status post repair 2. Respiratory failure requiring mechanical ventilation 3. Elevated ammonia level 4. Chronic liver disease and liver cirrhosis with prior alcohol abuse 5. Hepatic encephalopathy 6. Abdominal ascites requiring paracentesis PLAN: -Continue low fiber diet -Nursing staff to remove every other staple from abdominal incision -Continue to monitor for recurrent ascites -[place] added for oral pain medication. Try to wean patient off of the IV Dilaudid -Encourage patient to increase activity level Physician Commodity Broker note has been reviewed by physician. Signing provider agrees with the documented findings, assessment, and plan of care. Objective - Vital Signs Vital signs: Vital Signs Temp 98 F 11/04/23 12:00 Pulse 96 11/04/23 12:00 Resp 16 11/04/23 12:00 BP 99/54 11/04/23 12:00 Pulse Ox 96 11/04/23 12:00 FiO2 2 10/28/23 00:00 Intake & Output 11/03/23 11/04/23 11/04/23 18:59 06:59 18:59 Output Total 400 280 Balance -400 -280 Weight 75.5 kg Output: Urine 280 Stool 400 Other: Voiding Method Indwelling Catheter Indwelling Catheter Indwelling Catheter # Bowel Movements 1 ABP, PAP, CO, CI - Last Documented Arterial Blood Pressure 109/54 - Labs CBC & Chem 7: 11/04/23 09:48 11/04/23 09:48 Labs: Abnormal Lab Results - Last 24 Hours (Table) 11/03/23 11/04/23 11/04/23 Range/Units 18:42 09:48 09:48 WBC 10.8 H (3.8-10.6) k/uL RBC 2.89 L (4.30-5.90) m/uL Hgb 8.0 L (13.0-17.5) gm/dL Hct 26.3 L (39.0-53.0) % MCHC 30.5 L (31.0-37.0) g/dL RDW 23.4 H (11.5-15.5) % Neutrophils # 8.2 H (1.3-7.7) k/uL Lymphocytes # 0.9 L (1.0-4.8) k/uL Monocytes # 1.2 H (0-1.0) k/uL Sodium 127 L 129 L (137-145) mmol/L Carbon Dioxide 17 L (22-30) mmol/L BUN 69 H (9-20) mg/dL Creatinine 1.75 H (0.66-1.25) mg/dL Calcium 7.5 L (8.4-10.2) mg/dL Magnesium 2.6 H (1.6-2.3) mg/dL Creatine Kinase <20 L (55-170) U/L Microbiology - Last 24 Hours (Table) 11/01/23 15:07 Blood Culture - Preliminary Blood 11/01/23 15:07 Blood Culture - Preliminary Blood 11/01/23 16:30 Catheter Tip Culture - Final Catheter Tip
[2023-11-04] MEDS: ALBUMIN HUMAN 25% 50 ML in EMPTY BAG 1 BAG IVPB ONE (14:11)
--- NOTE | 2023-11-04 15:01 | P.PN ---
Subjective Progress Note Date: 11/04/23 Principal diagnosis: Acute hypoxic respiratory failure secondary to fulminant liver failure with ascites and incarcerated umbilical hernia 44-year-old male who presented to the emergency department, on October 15, complaining of abdominal pain. The patient has a history of chronic liver disease from alcohol abuse, with cirrhosis and ascites, and need for periodic paracentesis abdominis. The patient has a known history of a umbilical hernia, which she is able to typically reduce, but because he was not able to reduce it, he came in to be evaluated. The patient ended up having surgery, last Thursday, on the , and initially was doing okay. This morning I was called by the surgeon, and my charge nurse in the intensive care unit, to say that the patient was doing poorly, and should be transferred down to the intensive care unit for further monitoring and management. The patient was very lethargic, and looked very unstable, with impending respiratory failure. When I first saw the patient he was on room air, and receiving an IV with 3 ampoules of sodium bicarb in D5W at 80 cc an hour. I asked for stat blood gas, when the patient came to the intensive care unit. His pO2 was 40, pCO2 27, pH is 7.41. After evaluating the patient, I decided to intubate the patient which we did, and place a central line and arterial line, both of which we did. Current laboratory data includes a blood gas showing a pO2 of 393, pCO2 41, pH is 7.26. Saturations are 100%. White count is 18.9, hemoglobin 8.3, hematocrit 26.3, and a platelet count of 156,000. Sodium 137, potassium 4.5, chlorides 106, CO2 14, anion gap 17, BUN 69.6, and creatinine 3. Glucose was 126. Lactic acid was 2.8. Bilirubin was 1.5. Ammonia level was up to 259. Cultures of the ascitic fluid are thus far negative. Chest x-ray shows endotracheal tube to be in good position. Central line is in good position, without complication. Progress note dated October 20, 2023. The patient is seen today in room 263. The patient was intubated, and lined yesterday, for respiratory failure. The patient has a history of chronic liver disease, with cirrhosis, ascites, and encephalopathy. Currently, the patient is on volume assist-control, rate 20, tidal volume 400, FiO2 40%, PEEP of 5. Blood gases show pO2 108, pCO2 28, pH is 7.46. This blood gases consistent with a mild respiratory alkalosis. The patient is getting D5W with 3 ampoules of sodium bicarbonate at 80 cc an hour. The patient is getting norepinephrine at 3 mcg/min, propofol at 50 mcg/kg/min. The patient has been having tremor-like activity, and could be seizing. The brain CT was negative. The patient will have tube feedings beginning today. We have ordered an EEG. In addition, I have asked the nurse to give the patient 2 mg of Ativan, to see if the tremors cease. White count is 13, hemoglobin 7, hematocrit 23, platelet count 106,000. Sodium 138, potassium 3.5, chlorides 111, CO2 17, anion gap 10, BUN 63, creatini ne 2.27. Glucose is 160. Ammonia level is down to 49. Albumin is 3.1. Thus far, cultures are negative. The patient's chest x-ray shows the endotracheal tube to be high in the trachea, and have asked respiratory therapy to push it down to 1.5 cm. Progress note dated October 21, 2023. The patient is seen today in room 263. He remains on mechanical ventilator. He is on volume assist-control, rate 20, tidal volume 400, FiO2 40%, PEEP of 5. Blood gases show pO2 of 64, pCO2 37, pH is 7.47. The patient is getting propofol at 50 mcg/kg/min, D5W with 3 ampoules of bicarbonate at 80 cc an hour, fentanyl drip at 1 mcg/kg/h, vital AF at 29 cc an hour, with a goal of 43 cc an hour. The patient also continues on Rocephin. White count is 10.3, hemoglobin 7, hematocrit 22.8, and platelet count 109,000. Sodium 137, potassium 3.7, chlorides 104, CO2 24, BUN 54, and creatinine 1.76. Glucose is 116. Ammonia level is 56. Calcium is 7.7. Cultures are thus far negative. Chest x-ray is unchanged. There is a small left pleural effusion. NG tube, endotracheal tube, and central venous catheter, are in appropriate positions. Progress note dated October 22, 2023. 43-year-old male seen again in the intensive care unit, room 263. He remains on the mechanical ventilator. The patient's ventilator settings include volume assist-control, rate 20, tidal volume 400, FiO2 40%, PEEP of 5. Blood gases show pO2 68, pCO2 45, pH is 7.41. The patient is on norepinephrine at 9 mcg/min, propofol at 50 mcg/kg/min, lactated Ringer's at 75 cc an hour, and fentanyl at 1 mcg/kg/h. The patient is getting tube feedings with vital AF at 43 cc an hour, which is goal. Microbiologic studies are thus far negative. The patient is on Rocephin. He has received 1 unit of packed red blood cells. Current labs include a white count 10.5, hemoglobin 6.6, hematocrit 22.2, and a platelet count of 97,000. Sodium 138, potassium 3.4, chlorides 106, CO2 26, BUN 53, creatinine 1.78. Glucose is 140. Albumin is 2.8. Total bilirubin is 1.4. Chest x-ray shows air space opacities, in the lung bases, which have worsened. Lines and tubes are in good placement. Note dated October 23, 2023. 43-year-old male seen again in room 263. He remains on mechanical ventilator. Vent settings include volume assist-control, rate 20, tidal volume 400, FiO2 40%, PEEP of 5. Blood gases show pO2 87, pCO2 44, pH is 7.40. The patient is getting lactated Ringer's at 75 cc an hour, propofol at 45 mcg/kg/min, norepinephrine at 7.7 mcg/min, and saline at 10 cc an hour. The patient is also getting vital AF, at 10 cc an hour. He continues on Zosyn. We will check a procalcitonin level. The patient will have a daily interruption of sedation, without a spontaneous breathing trial today. Current labs include a white count of 12.7, hemoglobin 7.8, hematocrit 26, platelet count 75,000. Sodium 138, potassium 4.1, chlorides 105, CO2 26, BUN 47, creatinine 1.35. Glucose is 141. Albumin is 3.1. Cultures thus far negative including blood and sputum. Chest x-ray shows the OG tube, to remain in satisfactory position. There is persistent bibasilar infiltrates and/or atelectasis. Progress note dated October 24, 2023. 43-year-old male seen again in room 263. The patient remains on the mechanical ventilator. He is on volume assist-control, rate 20, tidal volume 400, FiO2 30%, PEEP of 5. Blood gases show pO2 69, pCO2 39, and pH is 7.44. The patient remains on propofol at 20 mcg/kg/min, norepinephrine at 2.4 mcg/min, lactated Ringer's at 50 cc an hour, and saline at 10 cc an hour. Patient is getting vital AF at 20, with a goal at 20 cc an hour. The patient continues on Zosyn. His procalcitonin level was 3.62. He will get 1 dose of Lasix 40 mg IV push. His lactated Ringer's IV, will be made KVO. Current labs include a white count of 17.6, hemoglobin 7.4, hematocrit 24.8, and a platelet count of 98,000. Sodium 142, potassium 3.8, chlorides 107, CO2 26, BUN 51, creatinine 1.36. Calcium is 8.2. Albumin is 3.0. Ammonia level was 22. All cultures are thus far negative. Chest x-ray shows small lung volumes, with basilar infiltrates or atelectasis, and small effusions. Progress note dated October 25, 2023. 43-year-old male seen again in room 263. The patient remains on the ventilator. He is on volume assist-control, rate 20, tidal volume 400, FiO2 30%, PEEP of 5. Blood gases show pO2 of 70, pCO2 39, pH is 7.46. The patient getting lactated Ringer's at 20 cc an hour, norepinephrine at 5.6 mcg/min, and vital AF at 20 cc an hour, which is goal. The patient will have a spontaneous breathing trial today, as he has been off of propofol for some time. His cultures are negative. He continues on Zosyn. I am not hopeful that the patient will be extubated today. White count 19.1, hemoglobin 7.3, hematocrit 23.8, platelet count 105,000. Sodium 143, potassium 3.8, chlorides 109, CO2 26, BUN 62, creatinine 1.60. Glucose 131. Albumin 2.8. Calcium 8.1. Cultures are thus far negative. Chest x-ray shows small lung volumes. Endotracheal tube is in appropriate position in the trachea. There is basilar atelectasis, and small bilateral pleural effusions. On today's evaluation of 10/26/2023, the patient remains intubated on mechanical ventilator. As mentioned, the patient is post repair of incarcerated abdominal/umbilical hernia. The patient is known to have liver cirrhosis s econdary to alcoholism. The patient has large ascites in addition. The patient has been off Precedex since 10/24/2023. On today's evaluation, he is extremely lethargic. He is following some simple commands. Unable to cough. Unable to raise his arms against gravity. His serum ammonia level has been measured at 61 and the patient continues to be on lactulose. His last bowel movement was 48 ho urs ago. In terms of his breathing, the patient is on a assist-control mode of mechanical ventilation at rate of 20, tidal volume of 400, FiO2 30% with a PEEP of 5 with a blood gas showing a pH of 7.47 with a pCO2 of 38 and pO2 of 71. The patient remains on low-dose norepinephrine running at 0.02 mcg/kg/min. Lactated Ringer's running at a rate of. Urine output is adequate at 60 cc. Earlier this morning, the patient was taken off the assist-control mode of mechanical ventilation and placed on a pressure support of 7 and a PEEP of 5 and he was able to generate adequate minute ventilation and tidal volume. He has a CHRIS drain and output is minimal and this was serous in nature. The white cell count is 14.7 with a heme of 7.1 and a platelet count of 102. INR is 1.5, sodium is at 144, BUN is 73 with a creatinine of 1.6 and a sodium levels at 144 and a potassium level is at 3.7. The patient is on IV Zosyn as an empiric antibiotic coverage. Based on all this, and based on the large ascitic fluid, I did a bedside paracentesis and the patient had a total of 5 L of ascitic fluid was as pirated and this will be sent for cultures and analysis. His sputum samples from 10/24/2023 is showing Burkholderia chest x-ray reveals smaller lung volumes along with some small bilateral pleural effusions. The patient is on DuoNeb nebulized treatments [id number]. The patient on midodrine 15 mg p.o. 3 times daily. Low-dose norepinephrine. 10/27/2023, patient remains intubated on the mechanical ventilator. Remains encephalopathic despite some improvement in his ammonia level. The patient serum ammonia level is down to 48 and the patient is currently on lactulose and rifaximin. Noted the patient has a fecal management system in place and is producing adequate amount of bowel movement. Grimaces to painful stimulation. Occasionally follows commands. Very much lethargic. Very much weak. Has a weak cough. May not be able to protect his airway postextubation for that reason we kept him on the mechanical ventilator for now. On today's evaluation, he is showing a less distended abdomen as the patient underwent a paracentesis and the ascitic fluid showed no clear indication for an underlying infection. The cell count of mesenteric fluid was 170. Cultures are still pending for now. The patient remains on pressure control mode of mechanical ventilation at the rate of 50, pressure control of 50, expiratory, 0.8, FiO2 of 30% with a PEEP of 5. Blood gas showed a pH of 7.33 with a pCO2 of 31 and a pO2 of 83. The patient remains off sedative medications. His labs from today showed a white cell count of 14.2 with a hemoglobin of 7.4 and a platelet count of 100. BUN is 73 with a creatinine 1.47 and a sodium noted at 145 with a potassium level is at 3.6. Serum bicarb is at 22. The chest x-ray findings chronic stable bilateral lower lobe pulmonary infiltrates and the patient remains on broad-spectrum antibiotics and the patient remains on IV meropenem. 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 10/28/23 the patient is being seen for a follow-up. Note that the patient was weaned off mechanical ventilator and the patient was extubated yesterday without any major difficulties. The patient is currently on room air oxygen. No significant respiratory distress. He is much more alert and awake. He is following some simple commands. He is stooling excessively in the stool output in the order of 1000 mL over the past 24 hours. He remains on lactulose 20 g 3 times a day. His serum ammonia level has been downtrending and ammonia level is currently down to 48 sodium levels at 151. Potassium is at 3.7, BUN 73 with a creatinine of 1.33. Glucose is 129. Abdomen is again distended and the patient is having significant abdominal discomfort because of ongoing ascites and abdominal distention. The patient was started on D5 water by nephrology and currently D5 water is running at 60 cc an hour. The patient remains on IV meropenem. Patient is on octreotide. Output from the CHRIS drain is minimal. No pressors. 10/29/2023, the patient is being seen for a follow-up. Awake and alert and communicating. Encephalopathy essentially improving and the patient's ammonia level is considerably down to 24. He continues to have high output stool and lactulose was held today. Paracentesis was done yesterday with a total of 5 L of ascitic fluid being drained. The patient was given IV albumin replacement. BUN is 66 with a creatinine of 1.27 and sodium levels at 135 with a potassium level of 3.6. Hemoglobin is down to 6.9 and a white cell count of 18.4. Patient is currently on no pressors. The patient remains on IV meropenem. The patient remains on a combination of lactulose and Xifaxan. Continues to have edema in all 4 extremities. There is generalized weakness in all 4 extremities. Nevertheless, there is no focal neurological deficits. Level of alertness is improved considerably. 10/30/2023, the patient is being seen for a follow up. Awake and alert and communicating. Abdomen is distended. The patient is currently on room air oxygen. No signs of any respiratory distress. He is stooling. Ammonia level is. BUN is 65 with a creatinine of 1.3. Sodium is at 131, the white cell count at 19.2 with a hemoglobin of 8.3. Remains on IV meropenem. Started on Lasix 40 mg IV every 12 hours. Patient is also on Aldactone. The patient remains on rifaximin and lactulose. He remains on midodrine. No other significant events overnight. 10/31/2023, the patient is being seen for a follow-up. The patient has no specific complaints. Abdomen is significant distended and he is having some abdominal discomfort along with massive ascites. Based on that, another paracentesis was done at the bedside and a total of 8.8 L of fluid aspirated and the patient was given IV albumin and total of 25 g. Remains on lactulose. R emains on rifaximin. Hemodynamically stable. Blood pressure is stable. Electrolytes are all stable with a sodium level of 131, serum bicarb is at 19, BUN 65 with a creatinine of 1.5 and a white cell count of 20 with a hemoglobin 9.2. Remains on IV meropenem. Mental status is appropriate and the patient is following commands and answer questions appropriately. On 11/01/2023, the patient is post paracentesis. A total of 8.8 L of ascitic fluid was drained from the patient's abdomen. Remains hemodynamically stable. Abdomen is less distended. No respiratory distress. Mental status is adequate. Creatinine is at 1.5 with a BUN of 63 and a sodium level of 129. The patient remains on IV Lasix 40 mg every 24 hours and Aldactone. Remains on a combination of octreotide, lactulose and rifaximin. No new complaints otherwise. The white cell count of 20.4. Hemoglobin 8.9. Platelet count is at 217. The patient is currently on room air oxygen. Patient was evaluated today on 11/02/2023, patient is on room air, hemodynamically stable, blood pressure 107/66. Does not seem to be in any distress, however the patient continues to have recurrent episodes of worsening ascites. Patient has been drained over the last few days, had a total of 8.8 L drained from the abdomen, patient remains on diuretics he is also on octreotide, lactulose, and rifaximin. WBC count is 18.8 hemoglobin 8.7 sodium 129 potassium 4.1 BUN 63 and creatinine 1.56 Reevaluate today on 11/03/2023, patient is basically about the same, however his arthritis is getting worse, patient i underwent ultrasound-guided for paracentesis and 9600 cc of clear straw-colored fluid was drained. On room air, O2 sats 92% blood pressure 101/54. Mean of 69. WBC count of 15.3 hemoglobin 8.6 sodium is 127 BUN 67 creatinine 1.89 Patient was evaluated today on 11/04/2023, patient is basically about the same. Patient had a large volume paracentesis done yesterday, over 9 L drained, patient is generally weak, not feeling well, he has vague aches and pains, but does not seem to be in any pulmonary distress. On room air, O2 sats is 96%. WBC count is 10.8 hemoglobin is 8 sodium is 129 BUN is 69 creatinine 1.75 Objective - Vital Signs Vital signs: Vital Signs Temp 98 F 11/04/23 12:00 Pulse 94 11/04/23 14:53 Resp 16 11/04/23 14:53 BP 99/54 11/04/23 12:00 Pulse Ox 96 11/04/23 12:00 FiO2 2 10/28/23 00:00 Intake & Output 11/03/23 11/04/23 11/04/23 18:59 06:59 18:59 Output Total 400 280 Balance -400 -280 Weight 75.5 kg Output: Urine 280 Stool 400 Other: Voiding Method Indwelling Catheter Indwelling Catheter Indwelling Catheter # Bowel Movements 1 ABP, PAP, CO, CI - Last Documented Arterial Blood Pressure 109/54 - Exam General: Revealed 43-year-old male cachectic, chronically ill, on room air. Skin: Skin is warm and dry and no rashes or lesions are noted. Eye: Pupils are equal, round and reactive to light, extra-ocular movements are intact; there is normal conjunctiva bilaterally. Ears, nose, mouth and throat: There are moist mucous membranes and no oral lesions. Neck: The neck is supple, there is no tenderness or JVD. Cardiovascular: There is a regular rate and rhythm. No murmur, rub or gallop is appreciated. Respiratory: Clear bilaterally no rhonchi or wheezes y Gastrointestinal: Distended abdomen with ascites. Back: There is no tenderness to palpation in the midline. There is no obvious deformity. Musculoskeletal: Normal ROM, no tenderness, 2+ bipedal edema Neurological: CN II-XII intact, Cranial nerves III through XII are intact. There are no obvious motor or sensory deficits. Coordination appears grossly intact. Speech is normal. Psychiatric: Cooperative, appropriate mood & affect, normal judgment. - Labs CBC & Chem 7: 11/04/23 09:48 11/04/23 09:48 Labs: Abnormal Lab Results - Last 24 Hours (Table) 11/03/23 11/04/23 11/04/23 Range/Units 18:42 09:48 09:48 WBC 10.8 H (3.8-10.6) k/uL RBC 2.89 L (4.30-5.90) m/uL Hgb 8.0 L (13.0-17.5) gm/dL Hct 26.3 L (39.0-53.0) % MCHC 30.5 L (31.0-37.0) g/dL RDW 23.4 H (11.5-15.5) % Neutrophils # 8.2 H (1.3-7.7) k/uL Lymphocytes # 0.9 L (1.0-4.8) k/uL Monocytes # 1.2 H (0-1.0) k/uL Sodium 127 L 129 L (137-145) mmol/L Carbon Dioxide 17 L (22-30) mmol/L BUN 69 H (9-20) mg/dL Creatinine 1.75 H (0.66-1.25) mg/dL Calcium 7.5 L (8.4-10.2) mg/dL Magnesium 2.6 H (1.6-2.3) mg/dL Creatine Kinase <20 L (55-170) U/L Microbiology - Last 24 Hours (Table) 11/01/23 15:07 Blood Culture - Preliminary Blood 11/01/23 15:07 Blood Culture - Preliminary Blood 11/01/23 16:30 Catheter Tip Culture - Final Catheter Tip Assessment and Plan Assessment: Impression: Acute presentation with incarcerated umbilical hernia status postsurgical repair postoperative day #19 Alcoholic liver cirrhosis with ascites requiring multiple paracentesis procedures Acute hypoxic respiratory failure secondary to fulminant liver failure on his initial presentation requiring intubation mechanical ventilation Chronic kidney disease Hyperammonemia secondary to chronic liver disease and associated with hepatic encephalopathy Hypertension History of depression and PTSD History of chronic tobacco use Anemia of chronic disease Medical debility secondary to multiple comorbidities as noted above Recommendation: Continue present supportive care measures Continue lactulose rifaximin Continue diuretics Overall long-term prognosis is obviously extremely poor, Should start working on placement for this patient. Will continue to follow Time with Patient: Less than 30
[2023-11-04 16:48] LABS: Glucose,Whole Blood 112 mg/dL (70-110)
[2023-11-04 20:14] LABS: Glucose,Whole Blood 140 mg/dL (70-110)
[2023-11-05 06:13] LABS: Glucose,Whole Blood 122 mg/dL (70-110)
[2023-11-05] MEDS: HYDROmorphone 1 MG/ML 1 ML SYRINGE IVP PRN (11:09)
[2023-11-05 11:26] LABS: Glucose,Whole Blood 136 mg/dL (70-110)
[2023-11-05 12:12] VITALS: BMI 22.7
--- NOTE | 2023-11-05 12:22 | P.PN ---
Subjective Patient is seen for follow-up for acute kidney injury. S/p paracentesis with 9.69 L on 11/03/2023. status post albumin complaining of pain all over. Serum creatinine at 1.75 yesterday. Maintained on midodrine and Sandostatin. Blood pressure remains on the lower side. Objective - Vital Signs Vital signs: Vital Signs Temp 98.1 F 11/05/23 11:23 Pulse 95 11/05/23 11:23 Resp 16 11/05/23 11:23 BP 102/63 11/05/23 11:23 Pulse Ox 95 11/05/23 11:23 FiO2 2 10/28/23 00:00 Intake & Output 11/04/23 11/05/23 11/05/23 18:59 06:59 18:59 Intake Total 480 Output Total 1300 225 Balance -1300 255 Weight 76 kg 76 kg Intake: Oral 480 Output: Urine 1300 225 Other: Voiding Method Indwelling Catheter Indwelling Catheter Indwelling Catheter # Bowel Movements 1 1 ABP, PAP, CO, CI - Last Documented Arterial Blood Pressure 109/54 - Exam Patient is awake and comfortable. No acute distress. Examination of the heart S1 and S2 Examination of the lungs bilateral breath sounds are heard Abdomen is soft ,nontender. Ascites noted Examination of lower extremities shows no edema [employer] exam is grossly intact. - Labs CBC & Chem 7: 11/04/23 09:48 11/04/23 09:48 Labs: Abnormal Lab Results - Last 24 Hours (Table) 11/04/23 11/04/23 11/05/23 Range/Units 16:45 20:10 06:09 POC Glucose (mg/dL) 112 H 140 H 122 H (70-110) mg/dL Ammonia (<30) umol/L 11/05/23 11/05/23 Range/Units 11:06 11:24 POC Glucose (mg/dL) 136 H (70-110) mg/dL Ammonia 30 H (<30) umol/L Microbiology - Last 24 Hours (Table) 11/01/23 15:07 Blood Culture - Preliminary Blood 11/01/23 15:07 Blood Culture - Preliminary Blood Assessment and Plan Assessment: 1. Acute kidney injury, ATN from hypotension versus hepatorenal syndrome. Improved. Maintained on midodrine, Sandostatin. status post albumin. No evidence of obstruction on computed tomography scan on 09/04/2023. 2. Non- gap metabolic acidosis associated with acute kidney injury. 3. Mild hyperkalemia associated with acute kidney injury and metabolic acidosis, improved 4. History of EtOH-related liver cirrhosis. 5. Status post open repair of incarcerated umbilical hernia and umbilectomy on 10/16/2023. 6. Ascites status post paracentesis of 8.8 L on 10/31/2023 7. Hepatic encephalopathy , improved. 8. Hyponatremia associated with underlying liver cirrhosis Plan: hold Lasix Repeat labs Maintain midodrine and Sandostatin. Overall prognosis is guarded.
[2023-11-05 12:25] LABS: African American GFR (CKD) 74 (>60 ml/min/1.73 sqM); Anion Gap 12 mmol/L; Blood Urea Nitrogen 61 mg/dL (9-20); Calcium 7.2 mg/dL (8.4-10.2); Carbon Dioxide 15 mmol/L (22-30); Chloride 100 mmol/L (98-107); Glucose 97 mg/dL (74-99); Non-African American GFR(CKD) 64 (>60 ml/min/1.73 sqM); Potassium 4.5 mmol/L (3.5-5.1); Sodium 127 mmol/L (137-145)
--- NOTE | 2023-11-05 13:53 | P.PN ---
Subjective Progress Note Date: 11/05/23 Principal diagnosis: Acute hypoxic respiratory failure secondary to fulminant liver failure with ascites and incarcerated umbilical hernia 44-year-old male who presented to the emergency department, on October 15, complaining of abdominal pain. The patient has a history of chronic liver disease from alcohol abuse, with cirrhosis and ascites, and need for periodic paracentesis abdominis. The patient has a known history of a umbilical hernia, which she is able to typically reduce, but because he was not able to reduce it, he came in to be evaluated. The patient ended up having surgery, last Thursday, on the , and initially was doing okay. This morning I was called by the surgeon, and my charge nurse in the intensive care unit, to say that the patient was doing poorly, and should be transferred down to the intensive care unit for further monitoring and management. The patient was very lethargic, and looked very unstable, with impending respiratory failure. When I first saw the patient he was on room air, and receiving an IV with 3 ampoules of sodium bicarb in D5W at 80 cc an hour. I asked for stat blood gas, when the patient came to the intensive care unit. His pO2 was 40, pCO2 27, pH is 7.41. After evaluating the patient, I decided to intubate the patient which we did, and place a central line and arterial line, both of which we did. Current laboratory data includes a blood gas showing a pO2 of 393, pCO2 41, pH is 7.26. Saturations are 100%. White count is 18.9, hemoglobin 8.3, hematocrit 26.3, and a platelet count of 156,000. Sodium 137, potassium 4.5, chlorides 106, CO2 14, anion gap 17, BUN 69.6, and creatinine 3. Glucose was 126. Lactic acid was 2.8. Bilirubin was 1.5. Ammonia level was up to 259. Cultures of the ascitic fluid are thus far negative. Chest x-ray shows endotracheal tube to be in good position. Central line is in good position, without complication. Progress note dated October 20, 2023. The patient is seen today in room 263. The patient was intubated, and lined yesterday, for respiratory failure. The patient has a history of chronic liver disease, with cirrhosis, ascites, and encephalopathy. Currently, the patient is on volume assist-control, rate 20, tidal volume 400, FiO2 40%, PEEP of 5. Blood gases show pO2 108, pCO2 28, pH is 7.46. This blood gases consistent with a mild respiratory alkalosis. The patient is getting D5W with 3 ampoules of sodium bicarbonate at 80 cc an hour. The patient is getting norepinephrine at 3 mcg/min, propofol at 50 mcg/kg/min. The patient has been having tremor-like activity, and could be seizing. The brain CT was negative. The patient will have tube feedings beginning today. We have ordered an EEG. In addition, I have asked the nurse to give the patient 2 mg of Ativan, to see if the tremors cease. White count is 13, hemoglobin 7, hematocrit 23, platelet count 106,000. Sodium 138, potassium 3.5, chlorides 111, CO2 17, anion gap 10, BUN 63, creatini ne 2.27. Glucose is 160. Ammonia level is down to 49. Albumin is 3.1. Thus far, cultures are negative. The patient's chest x-ray shows the endotracheal tube to be high in the trachea, and have asked respiratory therapy to push it down to 1.5 cm. Progress note dated October 21, 2023. The patient is seen today in room 263. He remains on mechanical ventilator. He is on volume assist-control, rate 20, tidal volume 400, FiO2 40%, PEEP of 5. Blood gases show pO2 of 64, pCO2 37, pH is 7.47. The patient is getting propofol at 50 mcg/kg/min, D5W with 3 ampoules of bicarbonate at 80 cc an hour, fentanyl drip at 1 mcg/kg/h, vital AF at 29 cc an hour, with a goal of 43 cc an hour. The patient also continues on Rocephin. White count is 10.3, hemoglobin 7, hematocrit 22.8, and platelet count 109,000. Sodium 137, potassium 3.7, chlorides 104, CO2 24, BUN 54, and creatinine 1.76. Glucose is 116. Ammonia level is 56. Calcium is 7.7. Cultures are thus far negative. Chest x-ray is unchanged. There is a small left pleural effusion. NG tube, endotracheal tube, and central venous catheter, are in appropriate positions. Progress note dated October 22, 2023. 43-year-old male seen again in the intensive care unit, room 263. He remains on the mechanical ventilator. The patient's ventilator settings include volume assist-control, rate 20, tidal volume 400, FiO2 40%, PEEP of 5. Blood gases show pO2 68, pCO2 45, pH is 7.41. The patient is on norepinephrine at 9 mcg/min, propofol at 50 mcg/kg/min, lactated Ringer's at 75 cc an hour, and fentanyl at 1 mcg/kg/h. The patient is getting tube feedings with vital AF at 43 cc an hour, which is goal. Microbiologic studies are thus far negative. The patient is on Rocephin. He has received 1 unit of packed red blood cells. Current labs include a white count 10.5, hemoglobin 6.6, hematocrit 22.2, and a platelet count of 97,000. Sodium 138, potassium 3.4, chlorides 106, CO2 26, BUN 53, creatinine 1.78. Glucose is 140. Albumin is 2.8. Total bilirubin is 1.4. Chest x-ray shows air space opacities, in the lung bases, which have worsened. Lines and tubes are in good placement. Note dated October 23, 2023. 43-year-old male seen again in room 263. He remains on mechanical ventilator. Vent settings include volume assist-control, rate 20, tidal volume 400, FiO2 40%, PEEP of 5. Blood gases show pO2 87, pCO2 44, pH is 7.40. The patient is getting lactated Ringer's at 75 cc an hour, propofol at 45 mcg/kg/min, norepinephrine at 7.7 mcg/min, and saline at 10 cc an hour. The patient is also getting vital AF, at 10 cc an hour. He continues on Zosyn. We will check a procalcitonin level. The patient will have a daily interruption of sedation, without a spontaneous breathing trial today. Current labs include a white count of 12.7, hemoglobin 7.8, hematocrit 26, platelet count 75,000. Sodium 138, potassium 4.1, chlorides 105, CO2 26, BUN 47, creatinine 1.35. Glucose is 141. Albumin is 3.1. Cultures thus far negative including blood and sputum. Chest x-ray shows the OG tube, to remain in satisfactory position. There is persistent bibasilar infiltrates and/or atelectasis. Progress note dated October 24, 2023. 43-year-old male seen again in room 263. The patient remains on the mechanical ventilator. He is on volume assist-control, rate 20, tidal volume 400, FiO2 30%, PEEP of 5. Blood gases show pO2 69, pCO2 39, and pH is 7.44. The patient remains on propofol at 20 mcg/kg/min, norepinephrine at 2.4 mcg/min, lactated Ringer's at 50 cc an hour, and saline at 10 cc an hour. Patient is getting vital AF at 20, with a goal at 20 cc an hour. The patient continues on Zosyn. His procalcitonin level was 3.62. He will get 1 dose of Lasix 40 mg IV push. His lactated Ringer's IV, will be made KVO. Current labs include a white count of 17.6, hemoglobin 7.4, hematocrit 24.8, and a platelet count of 98,000. Sodium 142, potassium 3.8, chlorides 107, CO2 26, BUN 51, creatinine 1.36. Calcium is 8.2. Albumin is 3.0. Ammonia level was 22. All cultures are thus far negative. Chest x-ray shows small lung volumes, with basilar infiltrates or atelectasis, and small effusions. Progress note dated October 25, 2023. 43-year-old male seen again in room 263. The patient remains on the ventilator. He is on volume assist-control, rate 20, tidal volume 400, FiO2 30%, PEEP of 5. Blood gases show pO2 of 70, pCO2 39, pH is 7.46. The patient getting lactated Ringer's at 20 cc an hour, norepinephrine at 5.6 mcg/min, and vital AF at 20 cc an hour, which is goal. The patient will have a spontaneous breathing trial today, as he has been off of propofol for some time. His cultures are negative. He continues on Zosyn. I am not hopeful that the patient will be extubated today. White count 19.1, hemoglobin 7.3, hematocrit 23.8, platelet count 105,000. Sodium 143, potassium 3.8, chlorides 109, CO2 26, BUN 62, creatinine 1.60. Glucose 131. Albumin 2.8. Calcium 8.1. Cultures are thus far negative. Chest x-ray shows small lung volumes. Endotracheal tube is in appropriate position in the trachea. There is basilar atelectasis, and small bilateral pleural effusions. On today's evaluation of 10/26/2023, the patient remains intubated on mechanical ventilator. As mentioned, the patient is post repair of incarcerated abdominal/umbilical hernia. The patient is known to have liver cirrhosis s econdary to alcoholism. The patient has large ascites in addition. The patient has been off Precedex since 10/24/2023. On today's evaluation, he is extremely lethargic. He is following some simple commands. Unable to cough. Unable to raise his arms against gravity. His serum ammonia level has been measured at 61 and the patient continues to be on lactulose. His last bowel movement was 48 ho urs ago. In terms of his breathing, the patient is on a assist-control mode of mechanical ventilation at rate of 20, tidal volume of 400, FiO2 30% with a PEEP of 5 with a blood gas showing a pH of 7.47 with a pCO2 of 38 and pO2 of 71. The patient remains on low-dose norepinephrine running at 0.02 mcg/kg/min. Lactated Ringer's running at a rate of. Urine output is adequate at 60 cc. Earlier this morning, the patient was taken off the assist-control mode of mechanical ventilation and placed on a pressure support of 7 and a PEEP of 5 and he was able to generate adequate minute ventilation and tidal volume. He has a CHRIS drain and output is minimal and this was serous in nature. The white cell count is 14.7 with a heme of 7.1 and a platelet count of 102. INR is 1.5, sodium is at 144, BUN is 73 with a creatinine of 1.6 and a sodium levels at 144 and a potassium level is at 3.7. The patient is on IV Zosyn as an empiric antibiotic coverage. Based on all this, and based on the large ascitic fluid, I did a bedside paracentesis and the patient had a total of 5 L of ascitic fluid was as pirated and this will be sent for cultures and analysis. His sputum samples from 10/24/2023 is showing Burkholderia chest x-ray reveals smaller lung volumes along with some small bilateral pleural effusions. The patient is on DuoNeb nebulized treatments [id number]. The patient on midodrine 15 mg p.o. 3 times daily. Low-dose norepinephrine. 10/27/2023, patient remains intubated on the mechanical ventilator. Remains encephalopathic despite some improvement in his ammonia level. The patient serum ammonia level is down to 48 and the patient is currently on lactulose and rifaximin. Noted the patient has a fecal management system in place and is producing adequate amount of bowel movement. Grimaces to painful stimulation. Occasionally follows commands. Very much lethargic. Very much weak. Has a weak cough. May not be able to protect his airway postextubation for that reason we kept him on the mechanical ventilator for now. On today's evaluation, he is showing a less distended abdomen as the patient underwent a paracentesis and the ascitic fluid showed no clear indication for an underlying infection. The cell count of mesenteric fluid was 170. Cultures are still pending for now. The patient remains on pressure control mode of mechanical ventilation at the rate of 50, pressure control of 50, expiratory, 0.8, FiO2 of 30% with a PEEP of 5. Blood gas showed a pH of 7.33 with a pCO2 of 31 and a pO2 of 83. The patient remains off sedative medications. His labs from today showed a white cell count of 14.2 with a hemoglobin of 7.4 and a platelet count of 100. BUN is 73 with a creatinine 1.47 and a sodium noted at 145 with a potassium level is at 3.6. Serum bicarb is at 22. The chest x-ray findings chronic stable bilateral lower lobe pulmonary infiltrates and the patient remains on broad-spectrum antibiotics and the patient remains on IV meropenem. 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 10/28/23 the patient is being seen for a follow-up. Note that the patient was weaned off mechanical ventilator and the patient was extubated yesterday without any major difficulties. The patient is currently on room air oxygen. No significant respiratory distress. He is much more alert and awake. He is following some simple commands. He is stooling excessively in the stool output in the order of 1000 mL over the past 24 hours. He remains on lactulose 20 g 3 times a day. His serum ammonia level has been downtrending and ammonia level is currently down to 48 sodium levels at 151. Potassium is at 3.7, BUN 73 with a creatinine of 1.33. Glucose is 129. Abdomen is again distended and the patient is having significant abdominal discomfort because of ongoing ascites and abdominal distention. The patient was started on D5 water by nephrology and currently D5 water is running at 60 cc an hour. The patient remains on IV meropenem. Patient is on octreotide. Output from the CHRIS drain is minimal. No pressors. 10/29/2023, the patient is being seen for a follow-up. Awake and alert and communicating. Encephalopathy essentially improving and the patient's ammonia level is considerably down to 24. He continues to have high output stool and lactulose was held today. Paracentesis was done yesterday with a total of 5 L of ascitic fluid being drained. The patient was given IV albumin replacement. BUN is 66 with a creatinine of 1.27 and sodium levels at 135 with a potassium level of 3.6. Hemoglobin is down to 6.9 and a white cell count of 18.4. Patient is currently on no pressors. The patient remains on IV meropenem. The patient remains on a combination of lactulose and Xifaxan. Continues to have edema in all 4 extremities. There is generalized weakness in all 4 extremities. Nevertheless, there is no focal neurological deficits. Level of alertness is improved considerably. 10/30/2023, the patient is being seen for a follow up. Awake and alert and communicating. Abdomen is distended. The patient is currently on room air oxygen. No signs of any respiratory distress. He is stooling. Ammonia level is. BUN is 65 with a creatinine of 1.3. Sodium is at 131, the white cell count at 19.2 with a hemoglobin of 8.3. Remains on IV meropenem. Started on Lasix 40 mg IV every 12 hours. Patient is also on Aldactone. The patient remains on rifaximin and lactulose. He remains on midodrine. No other significant events overnight. 10/31/2023, the patient is being seen for a follow-up. The patient has no specific complaints. Abdomen is significant distended and he is having some abdominal discomfort along with massive ascites. Based on that, another paracentesis was done at the bedside and a total of 8.8 L of fluid aspirated and the patient was given IV albumin and total of 25 g. Remains on lactulose. R emains on rifaximin. Hemodynamically stable. Blood pressure is stable. Electrolytes are all stable with a sodium level of 131, serum bicarb is at 19, BUN 65 with a creatinine of 1.5 and a white cell count of 20 with a hemoglobin 9.2. Remains on IV meropenem. Mental status is appropriate and the patient is following commands and answer questions appropriately. On 11/01/2023, the patient is post paracentesis. A total of 8.8 L of ascitic fluid was drained from the patient's abdomen. Remains hemodynamically stable. Abdomen is less distended. No respiratory distress. Mental status is adequate. Creatinine is at 1.5 with a BUN of 63 and a sodium level of 129. The patient remains on IV Lasix 40 mg every 24 hours and Aldactone. Remains on a combination of octreotide, lactulose and rifaximin. No new complaints otherwise. The white cell count of 20.4. Hemoglobin 8.9. Platelet count is at 217. The patient is currently on room air oxygen. Patient was evaluated today on 11/02/2023, patient is on room air, hemodynamically stable, blood pressure 107/66. Does not seem to be in any distress, however the patient continues to have recurrent episodes of worsening ascites. Patient has been drained over the last few days, had a total of 8.8 L drained from the abdomen, patient remains on diuretics he is also on octreotide, lactulose, and rifaximin. WBC count is 18.8 hemoglobin 8.7 sodium 129 potassium 4.1 BUN 63 and creatinine 1.56 Reevaluate today on 11/03/2023, patient is basically about the same, however his arthritis is getting worse, patient i underwent ultrasound-guided for paracentesis and 9600 cc of clear straw-colored fluid was drained. On room air, O2 sats 92% blood pressure 101/54. Mean of 69. WBC count of 15.3 hemoglobin 8.6 sodium is 127 BUN 67 creatinine 1.89 Patient was evaluated today on 11/04/2023, patient is basically about the same. Patient had a large volume paracentesis done yesterday, over 9 L drained, patient is generally weak, not feeling well, he has vague aches and pains, but does not seem to be in any pulmonary distress. On room air, O2 sats is 96%. WBC count is 10.8 hemoglobin is 8 sodium is 129 BUN is 69 creatinine 1.75 Reevaluate on 11/05/2023, no change in his overall status, patient is generally weak, complaining of aches and pains, and being weak, patient is still about the same over the last few days since I started seeing him. Apparently the 9600 cc of fluid drained from his abdomen did not make much of a difference as far as the patient is concerned patient has low sodium of 127 bicarb is 15 BUN is 61 creatinine 1.36, being followed by nephrology. Objective - Vital Signs Vital signs: Vital Signs Temp 98.1 F 11/05/23 11:23 Pulse 95 11/05/23 11:23 Resp 16 11/05/23 11:23 BP 102/63 11/05/23 11:23 Pulse Ox 95 11/05/23 11:23 FiO2 2 10/28/23 00:00 Intake & Output 11/04/23 11/05/23 11/05/23 18:59 06:59 18:59 Intake Total 480 Output Total 1300 225 Balance -1300 255 Weight 76 kg 76 kg Intake: Oral 480 Output: Urine 1300 225 Other: Voiding Method Indwelling Catheter Indwelling Catheter Indwelling Catheter # Bowel Movements 1 1 ABP, PAP, CO, CI - Last Documented Arterial Blood Pressure 109/54 - Exam General: Revealed 43-year-old male cachectic, chronically ill, on room air. Skin: Skin is warm and dry and no rashes or lesions are noted. Eye: Pupils are equal, round and reactive to light, extra-ocular movements are intact; there is normal conjunctiva bilaterally. Ears, nose, mouth and throat: There are moist mucous membranes and no oral lesions. Neck: The neck is supple, there is no tenderness or JVD. Cardiovascular: There is a regular rate and rhythm. No murmur, rub or gallop is appreciated. Respiratory: Clear bilaterally no rhonchi or wheezes y Gastrointestinal: Distended abdomen with ascites. Back: There is no tenderness to palpation in the midline. There is no obvious deformity. Musculoskeletal: Normal ROM, no tenderness, 2+ bipedal edema Neurological: CN II-XII intact, Cranial nerves III through XII are intact. There are no obvious motor or sensory deficits. Coordination appears grossly intact. Speech is normal. Psychiatric: Cooperative, appropriate mood & affect, normal judgment. - Labs CBC & Chem 7: 11/04/23 09:48 07/11/24 11:46 Labs: Abnormal Lab Results - Last 24 Hours (Table) 11/04/23 11/04/23 11/05/23 Range/Units 16:45 20:10 06:09 Sodium (137-145) mmol/L Carbon Dioxide (22-30) mmol/L BUN (9-20) mg/dL Creatinine (0.66-1.25) mg/dL POC Glucose (mg/dL) 112 H 140 H 122 H (70-110) mg/dL Calcium (8.4-10.2) mg/dL Ammonia (<30) umol/L 11/05/23 11/05/23 11/05/23 Range/Units 11:06 11:24 11:46 Sodium 127 L (137-145) mmol/L Carbon Dioxide 15 L (22-30) mmol/L BUN 61 H (9-20) mg/dL Creatinine 1.36 H (0.66-1.25) mg/dL POC Glucose (mg/dL) 136 H (70-110) mg/dL Calcium 7.2 L (8.4-10.2) mg/dL Ammonia 30 H (<30) umol/L Microbiology - Last 24 Hours (Table) 11/01/23 15:07 Blood Culture - Preliminary Blood 11/01/23 15:07 Blood Culture - Preliminary Blood Assessment and Plan Assessment: Impression: Acute presentation with incarcerated umbilical hernia status postsurgical repair postoperative day #20 Alcoholic liver cirrhosis with ascites requiring multiple paracentesis procedures Acute hypoxic respiratory failure secondary to fulminant liver failure on his initial presentation requiring intubation mechanical ventilation Chronic kidney disease Hyperammonemia secondary to chronic liver disease and associated with hepatic encephalopathy Hypertension History of depression and PTSD History of chronic tobacco use Anemia of chronic disease Medical debility secondary to multiple comorbidities as noted above Recommendation: Continue present supportive care measures Continue lactulose rifaximin Patient is also receiving Merrem as ordered by infectious disease on the case 10/25 Continue diuretics Overall long-term prognosis is obviously extremely poor, Will eventually require rehab Will continue to follow Time with Patient: Less than 30
--- NOTE | 2023-11-05 14:26 | P.PN ---
Subjective Progress Note Date: 11/05/23 Hospital course: 43-year-old male with PMH of advanced alcoholic liver cirrhosis follows with equine pharmacology technician/director of medical staff services at [facility] and undergoes weekly paracentesis (last paracentesis being 10/14/2023) with a documented removal of 10,000 cc of ascitic fluid, CKD stage IIIb, depression, PTSD, and nicotine dependence. He presented to the emergency department on 10/16/23 with a chief complaint of intractable abdominal pain and reports umbilical hernia is now nonreducible. Vital signs upon arrival showed BP 115/69, HR 76, RR 18, T 97.8 F, and SpO2 100% on RA. EKG showed normal sinus rhythm at 63 bpm with no noted T wave or ST abnormalities. CBC showing bicytopenia with Hg 7.9 and Plt 98. Coagulation profile showed PT of 14.7 and INR 1.4. BMP showing Na 133, Cl 110, bicarb of 13, and anion gap of 10, BUN of 35, creatinine 1.65, GFR 51. Blood glucose was 119. Lactic acid was 1.8. Liver profile was unremarkable. Patient was evaluated by general surgeon, he is being admitted to general surgery team with plans to be taken to the OR for open surgical repair of incarcerated umbilical hernia. We were consulted for preoperative medical clearance and po stoperative medical management. Patient underwent open repair of incarcerated umbilical hernia with umbillectomy on 10/[address] Hair. Renal function continued to worsen. Also noted to be more acidotic. Patient was started on albumin and octreotide. Midodrine was increased and Nephrology was consulted. Patient was started on bicarb drip. Renal function improving. Patient became encephalopathic on 10/18, started on rectal lactulose and transferred to medical ICU. His mentation continued to worsen, and he was intubated on 10/18. Started on Rocephin for concerns of SBP on 10/18. He has required Levophed since being intubated which is being slowly titrated down. CXR showing signs of right sided PNA, pro-mony elevated at 3.62, Rocephin switched to Zosyn on 10/21. Generalized tremors noted on 10/19, CT brain was negative for acute pathology and EEG showed moderate to severe background slowing. Started on Fentanyl drip (10/21-10/22) which improved his tremors, likely related to pain. There was concern for GI bleed as well. Hg downtrending to 6.6 on 10/21 requiring 1 unit PRBC. Subjective Patient seen this morning. He was AOx3 however slow to answer questions. Per nurse patient has been taking his IV Dilaudid [id number]. I did change his IV Dilaudid frequency from every 4 hours to every 8 hours. I told the nurse to give the patient Clare first before giving the IV Dilaudid. Physical exam General examination - Alert and Oriented 3 in NAD, appears chronically debilitated Heart - + S1S2 no murmurs Lungs - Clear to auscultation Abdomen soft NT mildly distended +ve BS Extremities - No edema GOLF BALL WINDER - Moving all 4 extremities spontaneously Psych - Calm and cooperative Assessment and plan Acute encephalopathy secondary to toxic encephalopathy from sepsis and also hepatic encephalopathy and also polypharmacy This morning patient's mentation is AOx3 however Is slow to respond to questions I have decreased his frequency of the IV Dilaudid. Surgery to start the patient on Clare I believe the opioids are contributing to his confusion however at this time patient does have pain and needs some pain medications. Decompensated liver cirrhosis Patient has had multiple paracentesis. Last paracentesis on 11/03/2023 Resume lactulose and rifaximin Continue with spironolactone 25 mg p.o. twice daily Nephrology holding Lasix due to acute kidney injury Was admitted patient's abdomen today. His abdomen is soft and no signs of ascites. Acute kidney injury secondary to hepatorenal Metabolic acidosis Patient on midodrine and octreotide Creatinine is improving Bicarb is 15 today and is worsening. Discussed with nephrology Healthcare associated pneumonia Septic shock Infectious disease recommending 10 days of meropenem. 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 Patient will complete his last day of antibiotics today. Patient overall has a poor prognosis. However not ready for hospice. Objective - Vital Signs Vital signs: Vital Signs Temp 98.1 F 11/05/23 11:23 Pulse 95 11/05/23 11:23 Resp 16 11/05/23 11:23 BP 102/63 11/05/23 11:23 Pulse Ox 95 11/05/23 11:23 FiO2 2 10/28/23 00:00 Intake & Output 11/04/23 11/05/23 11/05/23 18:59 06:59 18:59 Intake Total 480 Output Total 1300 225 Balance -1300 255 Weight 76 kg 76 kg Intake: Oral 480 Output: Urine 1300 225 Other: Voiding Method Indwelling Catheter Indwelling Catheter Indwelling Catheter # Bowel Movements 1 1 ABP, PAP, CO, CI - Last Documented Arterial Blood Pressure 109/54 - Labs CBC & Chem 7: 11/04/23 09:48 11/05/23 11:46 Labs: Abnormal Lab Results - Last 24 Hours (Table) 11/04/23 11/04/23 11/05/23 Range/Units 16:45 20:10 06:09 Sodium (137-145) mmol/L Carbon Dioxide (22-30) mmol/L BUN (9-20) mg/dL Creatinine (0.66-1.25) mg/dL POC Glucose (mg/dL) 112 H 140 H 122 H (70-110) mg/dL Calcium (8.4-10.2) mg/dL Ammonia (<30) umol/L 11/05/23 11/05/23 11/05/23 Range/Units 11:06 11:24 11:46 Sodium 127 L (137-145) mmol/L Carbon Dioxide 15 L (22-30) mmol/L BUN 61 H (9-20) mg/dL Creatinine 1.36 H (0.66-1.25) mg/dL POC Glucose (mg/dL) 136 H (70-110) mg/dL Calcium 7.2 L (8.4-10.2) mg/dL Ammonia 30 H (<30) umol/L Microbiology - Last 24 Hours (Table) 11/01/23 15:07 Blood Culture - Preliminary Blood 11/01/23 15:07 Blood Culture - Preliminary Blood
[2023-11-05] MEDS: HYDROcodone/APAP 5-325MG 1 EACH TAB PO PRN (15:01)
[2023-11-05 15:10] LABS: Anisocytosis Moderate; HCT 30.4 % (39.0-53.0); Hypochromasia Marked; MCH 28.1 pg (25.0-35.0); MCHC 29.6 g/dL (31.0-37.0); MCV 94.8 fL (80.0-100.0); Macrocytosis Moderate; Mean Platelet Volume 8.7; Platelet Count 255 k/uL (150-450); RBC 3.21 m/uL (4.30-5.90); RDW 22.7 % (11.5-15.5)
--- NOTE | 2023-11-05 15:43 | P.PN ---
Subjective Progress Note Date: 11/05/23 CHIEF COMPLAINT: Incarcerated umbilical hernia HISTORY OF PRESENT ILLNESS: Patient is status post open repair of incarcerated umbilical hernia, umbillectomy on 10/16/23. Patient is on the cardic floor. He is currently on a low fiber diet. Denies any nausea or vomiting. Patient complains of abdominal pain. He is having bowel movements. Nurse removed every other staple from incision yesterday. Afebrile. WBC 9.0 Hgb 9.0 platelets 255 sodium 127 PHYSICAL EXAM: VITAL SIGNS: Reviewed. GENERAL: intubated ABDOMEN: Soft. distended. Incision clean dry and intact Neuro: lethargic ASSESSMENT: 1. Incarcerated umbilical hernia status post repair 2. Respiratory failure requiring mechanical ventilation 3. Elevated ammonia level 4. Chronic liver disease and liver cirrhosis with prior alcohol abuse 5. Hepatic encephalopathy 6. Abdominal ascites requiring paracentesis PLAN: -Continue low fiber diet -Continue to monitor for recurrent ascites -Encourage patient to cut back on use of IV pain medications -Encourage patient to increase activity level Physician Floral Manager note has been reviewed by physician. Signing provider agrees with the documented findings, assessment, and plan of care. I have personally seen and examined the patient, reviewed the RETURN TO VENDOR /PAs history, exam and MDM and agree with the assessment and plan as written. Based on total visit time, I have performed more than 50% of the visit. As above: Patient complaining of chronic abdominal discomfort. Tolerating diet. Will remove rest of bianca tomorrow. Discharge planning. Objective - Vital Signs Vital signs: Vital Signs Temp 98.1 F 11/05/23 11:23 Pulse 94 11/05/23 15:00 Resp 16 11/05/23 11:23 BP 102/63 11/05/23 11:23 Pulse Ox 95 11/05/23 11:23 FiO2 2 10/28/23 00:00 Intake & Output 11/04/23 11/05/23 11/05/23 18:59 06:59 18:59 Intake Total 480 Output Total 1300 225 Balance -1300 255 Weight 76 kg 76 kg Intake: Oral 480 Output: Urine 1300 225 Other: Voiding Method Indwelling Catheter Indwelling Catheter Indwelling Catheter # Bowel Movements 1 1 ABP, PAP, CO, CI - Last Documented Arterial Blood Pressure 109/54 - Labs CBC & Chem 7: 11/05/23 10:37 11/05/23 11:46 Labs: Abnormal Lab Results - Last 24 Hours (Table) 11/04/23 11/04/23 11/05/23 Range/Units 16:45 20:10 06:09 RBC (4.30-5.90) m/uL Hgb (13.0-17.5) gm/dL Hct (39.0-53.0) % MCHC (31.0-37.0) g/dL RDW (11.5-15.5) % Sodium (137-145) mmol/L Carbon Dioxide (22-30) mmol/L BUN (9-20) mg/dL Creatinine (0.66-1.25) mg/dL POC Glucose (mg/dL) 112 H 140 H 122 H (70-110) mg/dL Calcium (8.4-10.2) mg/dL Ammonia (<30) umol/L 11/05/23 11/05/23 11/05/23 Range/Units 10:37 11:06 11:24 RBC 3.21 L (4.30-5.90) m/uL Hgb 9.0 L (13.0-17.5) gm/dL Hct 30.4 L (39.0-53.0) % MCHC 29.6 L (31.0-37.0) g/dL RDW 22.7 H (11.5-15.5) % Sodium (137-145) mmol/L Carbon Dioxide (22-30) mmol/L BUN (9-20) mg/dL Creatinine (0.66-1.25) mg/dL POC Glucose (mg/dL) 136 H (70-110) mg/dL Calcium (8.4-10.2) mg/dL Ammonia 30 H (<30) umol/L 11/05/23 Range/Units 11:46 RBC (4.30-5.90) m/uL Hgb (13.0-17.5) gm/dL Hct (39.0-53.0) % MCHC (31.0-37.0) g/dL RDW (11.5-15.5) % Sodium 127 L (137-145) mmol/L Carbon Dioxide 15 L (22-30) mmol/L BUN 61 H (9-20) mg/dL Creatinine 1.36 H (0.66-1.25) mg/dL POC Glucose (mg/dL) (70-110) mg/dL Calcium 7.2 L (8.4-10.2) mg/dL Ammonia (<30) umol/L Microbiology - Last 24 Hours (Table) 11/01/23 15:07 Blood Culture - Preliminary Blood 11/01/23 15:07 Blood Culture - Preliminary Blood
[2023-11-05 16:25] LABS: Glucose,Whole Blood 114 mg/dL (70-110)
--- NOTE | 2023-11-05 16:25 | P.PN ---
Subjective Progress Note Date: 11/05/23 Principal diagnosis: Reason for follow-up is pneumonia Patient is a 43-year-old male past medical history significant for hypertension hyperlipidemia alcoholism liver cirrhosis presenting to the hospital on 10/16/2023 for evaluation of abdominal pain, has been diagnosed with a incarcerated umbilical hernia status post open repair patient did have a worsening respiratory status requiring intubation on 10/19/2023 patient did have positive sputum culture with Burkholderia cepacia prompting this consultation. Patient did have a paracentesis at the bedside on 10/31/2023 with removal of 8.8 L fluid with subsequent paracentesis by radiology On today's evaluation that is 11/05/2023, the patient continues to be afebrile, the patient is on room air and breathing comfortably, the Pt denies having any chest pain or any worsening cough, the patient has been complaining of abdominal distention some nausea but no vomiting still having some diarrhea but no worsening output. Patient white normalized to 9.0, creatinine is 1.36 blood culture repeat currently pending catheter tip is negative Objective - Vital Signs Vital signs: Vital Signs Temp 98.5 F 11/05/23 16:00 Pulse 97 11/05/23 16:00 Resp 16 11/05/23 16:00 BP 99/56 11/05/23 16:00 Pulse Ox 95 11/05/23 16:00 FiO2 2 10/28/23 00:00 Intake & Output 11/04/23 11/05/23 11/05/23 18:59 06:59 18:59 Intake Total 720 Output Total 1300 575 Balance -1300 145 Weight 76 kg 76 kg Intake: Oral 720 Output: Urine 1300 575 Other: Voiding Method Indwelling Catheter Indwelling Catheter Indwelling Catheter # Bowel Movements 1 1 ABP, PAP, CO, CI - Last Documented Arterial Blood Pressure 109/54 - Exam GENERAL DESCRIPTION: Middle-age male lying in bed in no distress RESPIRATORY SYSTEM: Unlabored breathing , decreased breath sounds at bases HEART: S1 S2 regular rate and rhythm , ABDOMEN: Soft , mild distention EXTREMITIES: edema feet - Labs CBC & Chem 7: 11/05/23 10:37 11/05/23 11:46 Labs: Abnormal Lab Results - Last 24 Hours (Table) 11/04/23 11/04/23 11/05/23 Range/Units 16:45 20:10 06:09 RBC (4.30-5.90) m/uL Hgb (13.0-17.5) gm/dL Hct (39.0-53.0) % MCHC (31.0-37.0) g/dL RDW (11.5-15.5) % Sodium (137-145) mmol/L Carbon Dioxide (22-30) mmol/L BUN (9-20) mg/dL Creatinine (0.66-1.25) mg/dL POC Glucose (mg/dL) 112 H 140 H 122 H (70-110) mg/dL Calcium (8.4-10.2) mg/dL Ammonia (<30) umol/L 11/05/23 11/05/23 11/05/23 Range/Units 10:37 11:06 11:24 RBC 3.21 L (4.30-5.90) m/uL Hgb 9.0 L (13.0-17.5) gm/dL Hct 30.4 L (39.0-53.0) % MCHC 29.6 L (31.0-37.0) g/dL RDW 22.7 H (11.5-15.5) % Sodium (137-145) mmol/L Carbon Dioxide (22-30) mmol/L BUN (9-20) mg/dL Creatinine (0.66-1.25) mg/dL POC Glucose (mg/dL) 136 H (70-110) mg/dL Calcium (8.4-10.2) mg/dL Ammonia 30 H (<30) umol/L 11/05/23 Range/Units 11:46 RBC (4.30-5.90) m/uL Hgb (13.0-17.5) gm/dL Hct (39.0-53.0) % MCHC (31.0-37.0) g/dL RDW (11.5-15.5) % Sodium 127 L (137-145) mmol/L Carbon Dioxide 15 L (22-30) mmol/L BUN 61 H (9-20) mg/dL Creatinine 1.36 H (0.66-1.25) mg/dL POC Glucose (mg/dL) (70-110) mg/dL Calcium 7.2 L (8.4-10.2) mg/dL Ammonia (<30) umol/L Microbiology - Last 24 Hours (Table) 11/01/23 15:07 Blood Culture - Preliminary Blood 11/01/23 15:07 Blood Culture - Preliminary Blood Assessment and Plan (1) Burkholderia cepacia infection Current Visit: Yes Status: Acute Code(s): A49.8 - OTHER BACTERIAL INFECTIONS OF UNSPECIFIED SITE SNOMED Code(s): 967155479 (2) Bilateral pneumonia Current Visit: No Status: Acute Code(s): J18.9 - PNEUMONIA, UNSPECIFIED ORGANISM SNOMED Code(s): 704239683 Plan: 1patient presented to hospital with abdominal pain has been diagnosed with incarcerated abdominal hernia s/p open repair and the patient subsequently did have worsening of his respiratory status and mentation requiring intubation now 10/19/2023 now with hypotension elevated white count sputum culture positive for Burkholderia cepacia complex chest x-ray with bilateral basilar infiltrate concerning for nosocomial gram-negative pneumonia 2-patient to continue with meropenem 1 g every 8 hours to finish treatment for his gram-negative pneumonia 3-patient with leukocytosis possible related to the left subclavian catheter has been discontinued catheter tip cultures negative however blood cultures are pending continue with the daptomycin to the blood culture to finalize Dictation was produced using [employer] dictation software. please excuse any grammatical, word or spelling errors. Time with Patient: Less than 30
[2023-11-05 20:04] LABS: Glucose,Whole Blood 111 mg/dL (70-110)
[2023-11-05] MEDS: SODIUM BICARBONATE TAB 650 MG TAB PO SCH (20:15)
[2023-11-05] MEDS: DEXTROSE 5% IN WATER 1,000 ML with SODIUM BICARB (1 MEQ/ML) 150 ML IV SCH (21:06)
[2023-11-06 06:01] LABS: Glucose,Whole Blood 116 mg/dL (70-110)
[2023-11-06 07:49] LABS: Anisocytosis Moderate; Basophils % (A) 0 %; Eosinophils # (A) 0.4 k/uL (0-0.7); Eosinophils % (A) 3 %; HCT 29.3 % (39.0-53.0); Hypochromasia Moderate; Lymphocytes # (A) 1.3 k/uL (1.0-4.8); Lymphocytes % (A) 13 %; MCH 28.5 pg (25.0-35.0); MCHC 30.7 g/dL (31.0-37.0); MCV 92.7 fL (80.0-100.0); Macrocytosis Slight; Mean Platelet Volume 8.1; Monocytes # (A) 1.5 k/uL (0-1.0); Monocytes % (A) 14 %; Neutrophils # (A) 6.9 k/uL (1.3-7.7); Neutrophils % (A) 66 %; Platelet Count 282 k/uL (150-450); RBC 3.16 m/uL (4.30-5.90); RDW 22.7 % (11.5-15.5); WBC 10.4 k/uL (3.8-10.6)
[2023-11-06 08:37] LABS: African American GFR (CKD) 71 (>60 ml/min/1.73 sqM); Anion Gap 9 mmol/L; Blood Urea Nitrogen 50 mg/dL (9-20); Calcium 7.3 mg/dL (8.4-10.2); Carbon Dioxide 19 mmol/L (22-30); Chloride 97 mmol/L (98-107); Glucose 99 mg/dL (74-99); Magnesium 2.4 mg/dL (1.6-2.3); Non-African American GFR(CKD) 62 (>60 ml/min/1.73 sqM); Potassium 4.4 mmol/L (3.5-5.1); Sodium 125 mmol/L (137-145)
[2023-11-06 09:35] VITALS: TEMP 98.4
[2023-11-06] MEDS: ALBUMIN HUMAN 25% 50 ML in EMPTY BAG 1 BAG IVPB ONE ×3 (10:24→14:50)
--- NOTE | 2023-11-06 11:10 | P.PN ---
Subjective Progress Note Date: 11/06/23 CHIEF COMPLAINT: Incarcerated umbilical hernia HISTORY OF PRESENT ILLNESS: Patient is status post open repair of incarcerated umbilical hernia, umbillectomy on 10/16/23. Patient is on the cardic floor. He is currently on a low fiber diet. Denies any nausea or vomiting. Patient having bowel movements. No new complaints. Afebrile. WBc 10.4 HGB 9.0 plt 282 ammonia 30 PHYSICAL EXAM: VITAL SIGNS: Reviewed. ABDOMEN: Soft. distended. Incision clean dry and intact ASSESSMENT: 1. Incarcerated umbilical hernia status post repair 2. Respiratory failure requiring mechanical ventilation 3. Elevated ammonia level 4. Chronic liver disease and liver cirrhosis with prior alcohol abuse 5. Hepatic encephalopathy 6. Abdominal ascites requiring paracentesis PLAN: -Continue low fiber diet -Medicine services ordered paracentesis -Encourage patient to increase activity level. Encourage patient to shower Physician Electroencephalogram Technologist note has been reviewed by physician. Signing provider agrees with the documented findings, assessment, and plan of care. Objective - Vital Signs Vital signs: Vital Signs Temp 98.4 F 11/06/23 09:15 Pulse 92 11/06/23 09:15 Resp 16 11/06/23 09:15 BP 97/61 11/06/23 09:15 Pulse Ox 95 11/06/23 09:15 FiO2 2 10/28/23 00:00 Intake & Output 11/05/23 11/06/23 11/06/23 18:59 06:59 18:59 Intake Total 720 868 Output Total 675 350 Balance 45 -350 868 Weight 76 kg 74.4 kg Intake: IV 100 Meropenem 1 gm In Sodium 100 Chloride 0.9% 100 ml @ 33 .3 mls/hr IVPB Q8HR IRINA Rx#:[id number] Intake, IV Titration 650 Amount DAPTOmycin 500 mg In 50 Sodium Chloride 0.9% 50 ml @ 100 mls/hr IVPB Q24HR IRINA Rx#:[id number] Dextrose 5% in Water 1, 600 000 ml @ 50 mls/hr IV . Q23H IRINA with Sodium Bicarb (1 Meq/ml) 150 ml Rx#:[id number] Oral 720 118 Output: Urine 675 350 Other: Voiding Method Indwelling Catheter Indwelling Catheter Indwelling Catheter # Bowel Movements 1 1 ABP, PAP, CO, CI - Last Documented Arterial Blood Pressure 109/54 - Labs CBC & Chem 7: 11/06/23 06:28 11/06/23 06:28 Labs: Abnormal Lab Results - Last 24 Hours (Table) 11/05/23 11/05/23 11/05/23 Range/Units 10:37 11:06 11:24 RBC 3.21 L (4.30-5.90) m/uL Hgb 9.0 L (13.0-17.5) gm/dL Hct 30.4 L (39.0-53.0) % MCHC 29.6 L (31.0-37.0) g/dL RDW 22.7 H (11.5-15.5) % Monocytes # (0-1.0) k/uL Sodium (137-145) mmol/L Chloride (98-107) mmol/L Carbon Dioxide (22-30) mmol/L BUN (9-20) mg/dL Creatinine (0.66-1.25) mg/dL POC Glucose (mg/dL) 136 H (70-110) mg/dL Calcium (8.4-10.2) mg/dL Magnesium (1.6-2.3) mg/dL Ammonia 30 H (<30) umol/L 11/05/23 11/05/23 11/05/23 Range/Units 11:46 16:23 20:02 RBC (4.30-5.90) m/uL Hgb (13.0-17.5) gm/dL Hct (39.0-53.0) % MCHC (31.0-37.0) g/dL RDW (11.5-15.5) % Monocytes # (0-1.0) k/uL Sodium 127 L (137-145) mmol/L Chloride (98-107) mmol/L Carbon Dioxide 15 L (22-30) mmol/L BUN 61 H (9-20) mg/dL Creatinine 1.36 H (0.66-1.25) mg/dL POC Glucose (mg/dL) 114 H 111 H (70-110) mg/dL Calcium 7.2 L (8.4-10.2) mg/dL Magnesium (1.6-2.3) mg/dL Ammonia (<30) umol/L 07/12/24 07/12/24 07/12/24 Range/Units 06:00 06:28 06:28 RBC 3.16 L (4.30-5.90) m/uL Hgb 9.0 L (13.0-17.5) gm/dL Hct 29.3 L (39.0-53.0) % MCHC 30.7 L (31.0-37.0) g/dL RDW 22.7 H (11.5-15.5) % Monocytes # 1.5 H (0-1.0) k/uL Sodium 125 L (137-145) mmol/L Chloride 97 L (98-107) mmol/L Carbon Dioxide 19 L (22-30) mmol/L BUN 50 H (9-20) mg/dL Creatinine 1.40 H (0.66-1.25) mg/dL POC Glucose (mg/dL) 116 H (70-110) mg/dL Calcium 7.3 L (8.4-10.2) mg/dL Magnesium 2.4 H (1.6-2.3) mg/dL Ammonia (<30) umol/L
[2023-11-06 11:21] LABS: Glucose,Whole Blood 121 mg/dL (70-110)
[2023-11-06] MEDS: FUROSEMIDE 10 MG/ML 4 ML VIAL IV STA (11:24)
--- NOTE | 2023-11-06 13:05 | P.PN ---
Subjective Progress Note Date: 11/06/23 Principal diagnosis: Reason for follow-up is pneumonia Patient is a 43-year-old male past medical history significant for hypertension hyperlipidemia alcoholism liver cirrhosis presenting to the hospital on 10/16/2023 for evaluation of abdominal pain, has been diagnosed with a incarcerated umbilical hernia status post open repair patient did have a worsening respiratory status requiring intubation on 10/19/2023 patient did have positive sputum culture with Burkholderia cepacia prompting this consultation. Patient did have a paracentesis at the bedside on 10/31/2023 with removal of 8.8 L fluid with subsequent paracentesis by radiology On today's evaluation that is 11/06/2023, Patient is afebrile patient is currently on room air and denies having any shortness of breath, the patient denies any chest pain or cough, the patient denies any nausea vomiting swelling some abdominal pain discomfort and having diarrhea. Patient white count is normal at 10.4, creatinine is 1.40 blood cultures pending catheter was negative Objective - Vital Signs Vital signs: Vital Signs Temp 98.4 F 11/06/23 11:23 Pulse 89 11/06/23 11:23 Resp 16 11/06/23 11:23 BP 104/63 11/06/23 11:23 Pulse Ox 95 11/06/23 11:23 FiO2 2 10/28/23 00:00 Intake & Output 11/05/23 11/06/23 11/06/23 18:59 06:59 18:59 Intake Total 720 868 Output Total 675 350 Balance 45 -350 868 Weight 76 kg 74.4 kg Intake: IV 100 Meropenem 1 gm In Sodium 100 Chloride 0.9% 100 ml @ 33 .3 mls/hr IVPB Q8HR IRINA Rx#:[id number] Intake, IV Titration 650 Amount DAPTOmycin 500 mg In 50 Sodium Chloride 0.9% 50 ml @ 100 mls/hr IVPB Q24HR IRINA Rx#:[id number] Dextrose 5% in Water 1, 600 000 ml @ 50 mls/hr IV . Q23H IRINA with Sodium Bicarb (1 Meq/ml) 150 ml Rx#:[id number] Oral 720 118 Output: Urine 675 350 Other: Voiding Method Indwelling Catheter Indwelling Catheter Indwelling Catheter # Bowel Movements 1 1 ABP, PAP, CO, CI - Last Documented Arterial Blood Pressure 109/54 - Exam GENERAL DESCRIPTION: Middle-age male lying in bed in no distress RESPIRATORY SYSTEM: Unlabored breathing , decreased breath sounds at bases HEART: S1 S2 regular rate and rhythm , ABDOMEN: Soft , mild distention EXTREMITIES: edema feet - Labs CBC & Chem 7: 11/06/23 06:28 07 06:28 Labs: Abnormal Lab Results - Last 24 Hours (Table) 11/05/23 11/05/23 11/05/23 Range/Units 10:37 16:23 20:02 RBC 3.21 L (4.30-5.90) m/uL Hgb 9.0 L (13.0-17.5) gm/dL Hct 30.4 L (39.0-53.0) % MCHC 29.6 L (31.0-37.0) g/dL RDW 22.7 H (11.5-15.5) % Monocytes # (0-1.0) k/uL Sodium (137-145) mmol/L Chloride (98-107) mmol/L Carbon Dioxide (22-30) mmol/L BUN (9-20) mg/dL Creatinine (0.66-1.25) mg/dL POC Glucose (mg/dL) 114 H 111 H (70-110) mg/dL Calcium (8.4-10.2) mg/dL Magnesium (1.6-2.3) mg/dL 11/06/23 11/06/23 11/06/23 Range/Units 06:00 06:28 06:28 RBC 3.16 L (4.30-5.90) m/uL Hgb 9.0 L (13.0-17.5) gm/dL Hct 29.3 L (39.0-53.0) % MCHC 30.7 L (31.0-37.0) g/dL RDW 22.7 H (11.5-15.5) % Monocytes # 1.5 H (0-1.0) k/uL Sodium 125 L (137-145) mmol/L Chloride 97 L (98-107) mmol/L Carbon Dioxide 19 L (22-30) mmol/L BUN 50 H (9-20) mg/dL Creatinine 1.40 H (0.66-1.25) mg/dL POC Glucose (mg/dL) 116 H (70-110) mg/dL Calcium 7.3 L (8.4-10.2) mg/dL Magnesium 2.4 H (1.6-2.3) mg/dL 11/06/23 Range/Units 11:20 RBC (4.30-5.90) m/uL Hgb (13.0-17.5) gm/dL Hct (39.0-53.0) % MCHC (31.0-37.0) g/dL RDW (11.5-15.5) % Monocytes # (0-1.0) k/uL Sodium (137-145) mmol/L Chloride (98-107) mmol/L Carbon Dioxide (22-30) mmol/L BUN (9-20) mg/dL Creatinine (0.66-1.25) mg/dL POC Glucose (mg/dL) 121 H (70-110) mg/dL Calcium (8.4-10.2) mg/dL Magnesium (1.6-2.3) mg/dL Assessment and Plan (1) Burkholderia cepacia infection Current Visit: Yes Status: Acute Code(s): A49.8 - OTHER BACTERIAL INFECTIONS OF UNSPECIFIED SITE SNOMED Code(s): 422925233 (2) Bilateral pneumonia Current Visit: No Status: Acute Code(s): J18.9 - PNEUMONIA, UNSPECIFIED ORGANISM SNOMED Code(s): 039423211 Plan: 1patient presented to hospital with abdominal pain has been diagnosed with incarcerated abdominal hernia s/p open repair and the patient subsequently did have worsening of his respiratory status and mentation requiring intubation now 10/19/2023 now with hypotension elevated white count sputum culture positive for Burkholderia cepacia complex chest x-ray with bilateral basilar infiltrate concerning for nosocomial gram-negative pneumonia 2-patient underlying gram-negative pneumonia has been adequately treated requiring discontinue meropenem 3-patient with leukocytosis possible related to the left subclavian catheter has been discontinued catheter tip cultures negative however blood cultures are pending, patient continue with the daptomycin to the blood culture to finalize Dictation was produced using [employer] dictation software. please excuse any grammatical, word or spelling errors. Time with Patient: Less than 30
--- NOTE | 2023-11-06 13:50 | P.PN ---
Subjective Progress Note Date: 11/06/23 Principal diagnosis: Acute hypoxic respiratory failure secondary to fulminant liver failure with ascites and incarcerated umbilical hernia 44-year-old male who presented to the emergency department, on October 15, complaining of abdominal pain. The patient has a history of chronic liver disease from alcohol abuse, with cirrhosis and ascites, and need for periodic paracentesis abdominis. The patient has a known history of a umbilical hernia, which she is able to typically reduce, but because he was not able to reduce it, he came in to be evaluated. The patient ended up having surgery, last Thursday, on the , and initially was doing okay. This morning I was called by the surgeon, and my charge nurse in the intensive care unit, to say that the patient was doing poorly, and should be transferred down to the intensive care unit for further monitoring and management. The patient was very lethargic, and looked very unstable, with impending respiratory failure. When I first saw the patient he was on room air, and receiving an IV with 3 ampoules of sodium bicarb in D5W at 80 cc an hour. I asked for stat blood gas, when the patient came to the intensive care unit. His pO2 was 40, pCO2 27, pH is 7.41. After evaluating the patient, I decided to intubate the patient which we did, and place a central line and arterial line, both of which we did. Current laboratory data includes a blood gas showing a pO2 of 393, pCO2 41, pH is 7.26. Saturations are 100%. White count is 18.9, hemoglobin 8.3, hematocrit 26.3, and a platelet count of 156,000. Sodium 137, potassium 4.5, chlorides 106, CO2 14, anion gap 17, BUN 69.6, and creatinine 3. Glucose was 126. Lactic acid was 2.8. Bilirubin was 1.5. Ammonia level was up to 259. Cultures of the ascitic fluid are thus far negative. Chest x-ray shows endotracheal tube to be in good position. Central line is in good position, without complication. Progress note dated October 20, 2023. The patient is seen today in room 263. The patient was intubated, and lined yesterday, for respiratory failure. The patient has a history of chronic liver disease, with cirrhosis, ascites, and encephalopathy. Currently, the patient is on volume assist-control, rate 20, tidal volume 400, FiO2 40%, PEEP of 5. Blood gases show pO2 108, pCO2 28, pH is 7.46. This blood gases consistent with a mild respiratory alkalosis. The patient is getting D5W with 3 ampoules of sodium bicarbonate at 80 cc an hour. The patient is getting norepinephrine at 3 mcg/min, propofol at 50 mcg/kg/min. The patient has been having tremor-like activity, and could be seizing. The brain CT was negative. The patient will have tube feedings beginning today. We have ordered an EEG. In addition, I have asked the nurse to give the patient 2 mg of Ativan, to see if the tremors cease. White count is 13, hemoglobin 7, hematocrit 23, platelet count 106,000. Sodium 138, potassium 3.5, chlorides 111, CO2 17, anion gap 10, BUN 63, creatini ne 2.27. Glucose is 160. Ammonia level is down to 49. Albumin is 3.1. Thus far, cultures are negative. The patient's chest x-ray shows the endotracheal tube to be high in the trachea, and have asked respiratory therapy to push it down to 1.5 cm. Progress note dated October 21, 2023. The patient is seen today in room 263. He remains on mechanical ventilator. He is on volume assist-control, rate 20, tidal volume 400, FiO2 40%, PEEP of 5. Blood gases show pO2 of 64, pCO2 37, pH is 7.47. The patient is getting propofol at 50 mcg/kg/min, D5W with 3 ampoules of bicarbonate at 80 cc an hour, fentanyl drip at 1 mcg/kg/h, vital AF at 29 cc an hour, with a goal of 43 cc an hour. The patient also continues on Rocephin. White count is 10.3, hemoglobin 7, hematocrit 22.8, and platelet count 109,000. Sodium 137, potassium 3.7, chlorides 104, CO2 24, BUN 54, and creatinine 1.76. Glucose is 116. Ammonia level is 56. Calcium is 7.7. Cultures are thus far negative. Chest x-ray is unchanged. There is a small left pleural effusion. NG tube, endotracheal tube, and central venous catheter, are in appropriate positions. Progress note dated October 22, 2023. 43-year-old male seen again in the intensive care unit, room 263. He remains on the mechanical ventilator. The patient's ventilator settings include volume assist-control, rate 20, tidal volume 400, FiO2 40%, PEEP of 5. Blood gases show pO2 68, pCO2 45, pH is 7.41. The patient is on norepinephrine at 9 mcg/min, propofol at 50 mcg/kg/min, lactated Ringer's at 75 cc an hour, and fentanyl at 1 mcg/kg/h. The patient is getting tube feedings with vital AF at 43 cc an hour, which is goal. Microbiologic studies are thus far negative. The patient is on Rocephin. He has received 1 unit of packed red blood cells. Current labs include a white count 10.5, hemoglobin 6.6, hematocrit 22.2, and a platelet count of 97,000. Sodium 138, potassium 3.4, chlorides 106, CO2 26, BUN 53, creatinine 1.78. Glucose is 140. Albumin is 2.8. Total bilirubin is 1.4. Chest x-ray shows air space opacities, in the lung bases, which have worsened. Lines and tubes are in good placement. Note dated October 23, 2023. 43-year-old male seen again in room 263. He remains on mechanical ventilator. Vent settings include volume assist-control, rate 20, tidal volume 400, FiO2 40%, PEEP of 5. Blood gases show pO2 87, pCO2 44, pH is 7.40. The patient is getting lactated Ringer's at 75 cc an hour, propofol at 45 mcg/kg/min, norepinephrine at 7.7 mcg/min, and saline at 10 cc an hour. The patient is also getting vital AF, at 10 cc an hour. He continues on Zosyn. We will check a procalcitonin level. The patient will have a daily interruption of sedation, without a spontaneous breathing trial today. Current labs include a white count of 12.7, hemoglobin 7.8, hematocrit 26, platelet count 75,000. Sodium 138, potassium 4.1, chlorides 105, CO2 26, BUN 47, creatinine 1.35. Glucose is 141. Albumin is 3.1. Cultures thus far negative including blood and sputum. Chest x-ray shows the OG tube, to remain in satisfactory position. There is persistent bibasilar infiltrates and/or atelectasis. Progress note dated October 24, 2023. 43-year-old male seen again in room 263. The patient remains on the mechanical ventilator. He is on volume assist-control, rate 20, tidal volume 400, FiO2 30%, PEEP of 5. Blood gases show pO2 69, pCO2 39, and pH is 7.44. The patient remains on propofol at 20 mcg/kg/min, norepinephrine at 2.4 mcg/min, lactated Ringer's at 50 cc an hour, and saline at 10 cc an hour. Patient is getting vital AF at 20, with a goal at 20 cc an hour. The patient continues on Zosyn. His procalcitonin level was 3.62. He will get 1 dose of Lasix 40 mg IV push. His lactated Ringer's IV, will be made KVO. Current labs include a white count of 17.6, hemoglobin 7.4, hematocrit 24.8, and a platelet count of 98,000. Sodium 142, potassium 3.8, chlorides 107, CO2 26, BUN 51, creatinine 1.36. Calcium is 8.2. Albumin is 3.0. Ammonia level was 22. All cultures are thus far negative. Chest x-ray shows small lung volumes, with basilar infiltrates or atelectasis, and small effusions. Progress note dated October 25, 2023. 43-year-old male seen again in room 263. The patient remains on the ventilator. He is on volume assist-control, rate 20, tidal volume 400, FiO2 30%, PEEP of 5. Blood gases show pO2 of 70, pCO2 39, pH is 7.46. The patient getting lactated Ringer's at 20 cc an hour, norepinephrine at 5.6 mcg/min, and vital AF at 20 cc an hour, which is goal. The patient will have a spontaneous breathing trial today, as he has been off of propofol for some time. His cultures are negative. He continues on Zosyn. I am not hopeful that the patient will be extubated today. White count 19.1, hemoglobin 7.3, hematocrit 23.8, platelet count 105,000. Sodium 143, potassium 3.8, chlorides 109, CO2 26, BUN 62, creatinine 1.60. Glucose 131. Albumin 2.8. Calcium 8.1. Cultures are thus far negative. Chest x-ray shows small lung volumes. Endotracheal tube is in appropriate position in the trachea. There is basilar atelectasis, and small bilateral pleural effusions. On today's evaluation of 10/26/2023, the patient remains intubated on mechanical ventilator. As mentioned, the patient is post repair of incarcerated abdominal/umbilical hernia. The patient is known to have liver cirrhosis s econdary to alcoholism. The patient has large ascites in addition. The patient has been off Precedex since 10/24/2023. On today's evaluation, he is extremely lethargic. He is following some simple commands. Unable to cough. Unable to raise his arms against gravity. His serum ammonia level has been measured at 61 and the patient continues to be on lactulose. His last bowel movement was 48 ho urs ago. In terms of his breathing, the patient is on a assist-control mode of mechanical ventilation at rate of 20, tidal volume of 400, FiO2 30% with a PEEP of 5 with a blood gas showing a pH of 7.47 with a pCO2 of 38 and pO2 of 71. The patient remains on low-dose norepinephrine running at 0.02 mcg/kg/min. Lactated Ringer's running at a rate of. Urine output is adequate at 60 cc. Earlier this morning, the patient was taken off the assist-control mode of mechanical ventilation and placed on a pressure support of 7 and a PEEP of 5 and he was able to generate adequate minute ventilation and tidal volume. He has a CHRIS drain and output is minimal and this was serous in nature. The white cell count is 14.7 with a heme of 7.1 and a platelet count of 102. INR is 1.5, sodium is at 144, BUN is 73 with a creatinine of 1.6 and a sodium levels at 144 and a potassium level is at 3.7. The patient is on IV Zosyn as an empiric antibiotic coverage. Based on all this, and based on the large ascitic fluid, I did a bedside paracentesis and the patient had a total of 5 L of ascitic fluid was as pirated and this will be sent for cultures and analysis. His sputum samples from 10/24/2023 is showing Burkholderia chest x-ray reveals smaller lung volumes along with some small bilateral pleural effusions. The patient is on DuoNeb nebulized treatments [id number]. The patient on midodrine 15 mg p.o. 3 times daily. Low-dose norepinephrine. 10/27/2023, patient remains intubated on the mechanical ventilator. Remains encephalopathic despite some improvement in his ammonia level. The patient serum ammonia level is down to 48 and the patient is currently on lactulose and rifaximin. Noted the patient has a fecal management system in place and is producing adequate amount of bowel movement. Grimaces to painful stimulation. Occasionally follows commands. Very much lethargic. Very much weak. Has a weak cough. May not be able to protect his airway postextubation for that reason we kept him on the mechanical ventilator for now. On today's evaluation, he is showing a less distended abdomen as the patient underwent a paracentesis and the ascitic fluid showed no clear indication for an underlying infection. The cell count of mesenteric fluid was 170. Cultures are still pending for now. The patient remains on pressure control mode of mechanical ventilation at the rate of 50, pressure control of 50, expiratory, 0.8, FiO2 of 30% with a PEEP of 5. Blood gas showed a pH of 7.33 with a pCO2 of 31 and a pO2 of 83. The patient remains off sedative medications. His labs from today showed a white cell count of 14.2 with a hemoglobin of 7.4 and a platelet count of 100. BUN is 73 with a creatinine 1.47 and a sodium noted at 145 with a potassium level is at 3.6. Serum bicarb is at 22. The chest x-ray findings chronic stable bilateral lower lobe pulmonary infiltrates and the patient remains on broad-spectrum antibiotics and the patient remains on IV meropenem. 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 10/28/23 the patient is being seen for a follow-up. Note that the patient was weaned off mechanical ventilator and the patient was extubated yesterday without any major difficulties. The patient is currently on room air oxygen. No significant respiratory distress. He is much more alert and awake. He is following some simple commands. He is stooling excessively in the stool output in the order of 1000 mL over the past 24 hours. He remains on lactulose 20 g 3 times a day. His serum ammonia level has been downtrending and ammonia level is currently down to 48 sodium levels at 151. Potassium is at 3.7, BUN 73 with a creatinine of 1.33. Glucose is 129. Abdomen is again distended and the patient is having significant abdominal discomfort because of ongoing ascites and abdominal distention. The patient was started on D5 water by nephrology and currently D5 water is running at 60 cc an hour. The patient remains on IV meropenem. Patient is on octreotide. Output from the CHRIS drain is minimal. No pressors. 10/29/2023, the patient is being seen for a follow-up. Awake and alert and communicating. Encephalopathy essentially improving and the patient's ammonia level is considerably down to 24. He continues to have high output stool and lactulose was held today. Paracentesis was done yesterday with a total of 5 L of ascitic fluid being drained. The patient was given IV albumin replacement. BUN is 66 with a creatinine of 1.27 and sodium levels at 135 with a potassium level of 3.6. Hemoglobin is down to 6.9 and a white cell count of 18.4. Patient is currently on no pressors. The patient remains on IV meropenem. The patient remains on a combination of lactulose and Xifaxan. Continues to have edema in all 4 extremities. There is generalized weakness in all 4 extremities. Nevertheless, there is no focal neurological deficits. Level of alertness is improved considerably. 10/30/2023, the patient is being seen for a follow up. Awake and alert and communicating. Abdomen is distended. The patient is currently on room air oxygen. No signs of any respiratory distress. He is stooling. Ammonia level is. BUN is 65 with a creatinine of 1.3. Sodium is at 131, the white cell count at 19.2 with a hemoglobin of 8.3. Remains on IV meropenem. Started on Lasix 40 mg IV every 12 hours. Patient is also on Aldactone. The patient remains on rifaximin and lactulose. He remains on midodrine. No other significant events overnight. 10/31/2023, the patient is being seen for a follow-up. The patient has no specific complaints. Abdomen is significant distended and he is having some abdominal discomfort along with massive ascites. Based on that, another paracentesis was done at the bedside and a total of 8.8 L of fluid aspirated and the patient was given IV albumin and total of 25 g. Remains on lactulose. R emains on rifaximin. Hemodynamically stable. Blood pressure is stable. Electrolytes are all stable with a sodium level of 131, serum bicarb is at 19, BUN 65 with a creatinine of 1.5 and a white cell count of 20 with a hemoglobin 9.2. Remains on IV meropenem. Mental status is appropriate and the patient is following commands and answer questions appropriately. On 11/01/2023, the patient is post paracentesis. A total of 8.8 L of ascitic fluid was drained from the patient's abdomen. Remains hemodynamically stable. Abdomen is less distended. No respiratory distress. Mental status is adequate. Creatinine is at 1.5 with a BUN of 63 and a sodium level of 129. The patient remains on IV Lasix 40 mg every 24 hours and Aldactone. Remains on a combination of octreotide, lactulose and rifaximin. No new complaints otherwise. The white cell count of 20.4. Hemoglobin 8.9. Platelet count is at 217. The patient is currently on room air oxygen. Patient was evaluated today on 11/02/2023, patient is on room air, hemodynamically stable, blood pressure 107/66. Does not seem to be in any distress, however the patient continues to have recurrent episodes of worsening ascites. Patient has been drained over the last few days, had a total of 8.8 L drained from the abdomen, patient remains on diuretics he is also on octreotide, lactulose, and rifaximin. WBC count is 18.8 hemoglobin 8.7 sodium 129 potassium 4.1 BUN 63 and creatinine 1.56 Reevaluate today on 11/03/2023, patient is basically about the same, however his arthritis is getting worse, patient i underwent ultrasound-guided for paracentesis and 9600 cc of clear straw-colored fluid was drained. On room air, O2 sats 92% blood pressure 101/54. Mean of 69. WBC count of 15.3 hemoglobin 8.6 sodium is 127 BUN 67 creatinine 1.89 Patient was evaluated today on 11/04/2023, patient is basically about the same. Patient had a large volume paracentesis done yesterday, over 9 L drained, patient is generally weak, not feeling well, he has vague aches and pains, but does not seem to be in any pulmonary distress. On room air, O2 sats is 96%. WBC count is 10.8 hemoglobin is 8 sodium is 129 BUN is 69 creatinine 1.75 Reevaluate on 11/05/2023, no change in his overall status, patient is generally weak, complaining of aches and pains, and being weak, patient is still about the same over the last few days since I started seeing him. Apparently the 9600 cc of fluid drained from his abdomen did not make much of a difference as far as the patient is concerned patient has low sodium of 127 bicarb is 15 BUN is 61 creatinine 1.36, being followed by nephrology. Patient was reevaluated today on 11/06/2023, patient is basically about the same, no major change, patient is scheduled to have repeat paracentesis sometime later today.WBC count 10.4 hemoglobin 9 sodium is 125 being addressed by nephrology on the case. BUN is 50 creatinine 1.40 Objective - Vital Signs Vital signs: Vital Signs Temp 98.4 F 11/06/23 11:23 Pulse 89 11/06/23 11:23 Resp 16 11/06/23 11:23 BP 104/63 11/06/23 11:23 Pulse Ox 95 11/06/23 11:23 FiO2 2 10/28/23 00:00 Intake & Output 11/05/23 11/06/23 11/06/23 18:59 06:59 18:59 Intake Total 720 868 Output Total 675 350 Balance 45 -350 868 Weight 76 kg 74.4 kg Intake: IV 100 Meropenem 1 gm In Sodium 100 Chloride 0.9% 100 ml @ 33 .3 mls/hr IVPB Q8HR IRINA Rx#:[id number] Intake, IV Titration 650 Amount DAPTOmycin 500 mg In 50 Sodium Chloride 0.9% 50 ml @ 100 mls/hr IVPB Q24HR IRINA Rx#:[id number] Dextrose 5% in Water 1, 600 000 ml @ 50 mls/hr IV . Q23H IRINA with Sodium Bicarb (1 Meq/ml) 150 ml Rx#:[id number] Oral 720 118 Output: Urine 675 350 Other: Voiding Method Indwelling Catheter Indwelling Catheter Indwelling Catheter # Bowel Movements 1 1 ABP, PAP, CO, CI - Last Documented Arterial Blood Pressure 109/54 - Exam General: Revealed 43-year-old male cachectic, chronically ill, on room air. Skin: Skin is warm and dry and no rashes or lesions are noted. Eye: Pupils are equal, round and reactive to light, extra-ocular movements are intact; there is normal conjunctiva bilaterally. Ears, nose, mouth and throat: There are moist mucous membranes and no oral lesions. Neck: The neck is supple, there is no tenderness or JVD. Cardiovascular: There is a regular rate and rhythm. No murmur, rub or gallop is appreciated. Respiratory: Clear bilaterally no rhonchi or wheezes y Gastrointestinal: Distended abdomen with ascites. Back: There is no tenderness to palpation in the midline. There is no obvious deformity. Musculoskeletal: Normal ROM, no tenderness, 2+ bipedal edema Neurological: CN II-XII intact, Cranial nerves III through XII are intact. There are no obvious motor or sensory deficits. Coordination appears grossly intact. Speech is normal. Psychiatric: Cooperative, appropriate mood & affect, normal judgment. - Labs CBC & Chem 7: 11/06/23 06:28 11/06/23 06:28 Labs: Abnormal Lab Results - Last 24 Hours (Table) 11/05/23 11/05/23 11/05/23 Range/Units 10:37 16:23 20:02 RBC 3.21 L (4.30-5.90) m/uL Hgb 9.0 L (13.0-17.5) gm/dL Hct 30.4 L (39.0-53.0) % MCHC 29.6 L (31.0-37.0) g/dL RDW 22.7 H (11.5-15.5) % Monocytes # (0-1.0) k/uL Sodium (137-145) mmol/L Chloride (98-107) mmol/L Carbon Dioxide (22-30) mmol/L BUN (9-20) mg/dL Creatinine (0.66-1.25) mg/dL POC Glucose (mg/dL) 114 H 111 H (70-110) mg/dL Calcium (8.4-10.2) mg/dL Magnesium (1.6-2.3) mg/dL 11/06/23 11/06/23 11/06/23 Range/Units 06:00 06:28 06:28 RBC 3.16 L (4.30-5.90) m/uL Hgb 9.0 L (13.0-17.5) gm/dL Hct 29.3 L (39.0-53.0) % MCHC 30.7 L (31.0-37.0) g/dL RDW 22.7 H (11.5-15.5) % Monocytes # 1.5 H (0-1.0) k/uL Sodium 125 L (137-145) mmol/L Chloride 97 L (98-107) mmol/L Carbon Dioxide 19 L (22-30) mmol/L BUN 50 H (9-20) mg/dL Creatinine 1.40 H (0.66-1.25) mg/dL POC Glucose (mg/dL) 116 H (70-110) mg/dL Calcium 7.3 L (8.4-10.2) mg/dL Magnesium 2.4 H (1.6-2.3) mg/dL 11/06/23 Range/Units 11:20 RBC (4.30-5.90) m/uL Hgb (13.0-17.5) gm/dL Hct (39.0-53.0) % MCHC (31.0-37.0) g/dL RDW (11.5-15.5) % Monocytes # (0-1.0) k/uL Sodium (137-145) mmol/L Chloride (98-107) mmol/L Carbon Dioxide (22-30) mmol/L BUN (9-20) mg/dL Creatinine (0.66-1.25) mg/dL POC Glucose (mg/dL) 121 H (70-110) mg/dL Calcium (8.4-10.2) mg/dL Magnesium (1.6-2.3) mg/dL Assessment and Plan Assessment: Impression: Acute presentation with incarcerated umbilical hernia status postsurgical repair postoperative day #21 Alcoholic liver cirrhosis with ascites requiring multiple paracentesis procedures Acute hypoxic respiratory failure secondary to fulminant liver failure on his initial presentation requiring intubation mechanical ventilation Chronic kidney disease Hyperammonemia secondary to chronic liver disease and associated with hepatic encephalopathy Hypertension History of depression and PTSD History of chronic tobacco use Anemia of chronic disease Medical debility secondary to multiple comorbidities as noted above Recommendation: Continue present supportive care measures Continue diuretics Overall long-term prognosis is obviously extremely poor, Will eventually require rehab Will continue to follow Time with Patient: Less than 30
--- NOTE | 2023-11-06 13:54 | P.DS ---
Providers Date of admission: 10/16/23 08:45 Expected date of discharge: 11/06/23 Attending physician: Vel Hair Consults: 10/16/23 09:32 Consult Physician Urgent Consulting Provider: Ezio Ambrocio Consult Reason/Comments: medical Do you want consulting provider notified?: Already Contacted 10/17/23 08:54 Consult Physician Routine Consulting Provider: Ignacio Howard Consult Reason/Comments: IVAN and hyperkalemia Do you want consulting provider notified?: Yes 10/19/23 06:39 Consult Physician Routine Consulting Provider: Eddie Florez Consult Reason/Comments: ICU management Do you want consulting provider notified?: Yes 10/26/23 13:22 Consult Physician Stat Consulting Provider: Tien De Consult Reason/Comments: Burkholderia cepacia Sputum Cx Do you want consulting provider notified?: Yes Primary care physician: [facility] Hospital Course: Discharge diagnosis 1. Incarcerated umbilical hernia status post repair 2. Acute hypoxic respiratory failure secondary to fulminant liver failure on his initial presentation requiring intubation mechanical ventilation 3. Elevated ammonia level 4. Alcoholic liver cirrhosis with ascites requiring multiple paracentesis procedures 5. Hepatic encephalopathy Hospital course This is a 43-year-old male with a known history of alcoholic liver cirrhosis requiring frequent paracentesis. Patient was found to have evidence of an incarcerated umbilical hernia. It was unable to be reduced. Patient was taken to the OR on 10/16/2023 and is status post open repair of incarcerated umbilical hernia and embolectomy. Patient has had a prolonged hospitalization. He did require to be intubated and on mechanical ventilation in the ICU for respiratory failure due to his liver failure. Patient was eventually extubated. He was able to be transferred out of the ICU. He has had multiple paracentesis during this admission. Patient is tolerating diet. He is having bowel movements. His pain is controlled. He is able to ambulate. Afebrile. He has worked with physical therapy and they are recommending rehab. Patient will be discharged to F today after his paracentesis. Patient has been cleared by all consulting physicians. No further antibiotics recommended per infectious disease for discharge. Patient is stable for discharge. Please refer to chart for any further details. Physician Colon And Rectal Surgeon note has been reviewed by physician. Signing provider agrees with the documented findings, assessment, and plan of care. Patient Condition at Discharge: Stable Plan - Discharge Summary Discharge Rx Participant: No New Discharge Prescriptions: No Action HYDROcodone/APAP 5-325MG [[place] 5-325] 1 - 2 tab PO Q4HR PRN PRN Reason: Pain Furosemide [Lasix] 40 mg PO DAILY #30 tablet Pantoprazole [Protonix] 40 mg PO DAILY Midodrine HCl [ProAmatine] 10 mg PO TID Spironolactone [Aldactone] 25 mg PO BID #60 tab Discharge Medication List Furosemide [Lasix] 40 mg PO DAILY #30 tablet 03/02/23 [Rx] HYDROcodone/APAP 5-325MG [[place] 5-325] 1 - 2 tab PO Q4HR PRN 05/06/23 [History] Midodrine HCl [ProAmatine] 10 mg PO TID 05/06/23 [History] Pantoprazole [Protonix] 40 mg PO DAILY 05/06/23 [History] Spironolactone [Aldactone] 25 mg PO BID #60 tab 05/14/23 [Rx] Follow up Appointment(s)/Referral(s): Vel Hair MD [Medical Doctor] - 1 Week [facility] [Primary Care Provider] - 1-2 days Activity/Diet/Wound Care/Special Instructions: You may shower. No soaking or tub baths for 2 weeks Very light activity until you are reevaluated at your follow up appointment with your surgeon Discharge Disposition: TRANSFER TO SNF/ECF
--- NOTE | 2023-11-06 14:18 | P.PN ---
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 He presented to the emergency department on 10/16/23 with a chief complaint of intractable abdominal pain and reports umbilical hernia is now nonreducible. Vital signs upon arrival showed BP 115/69, HR 76, RR 18, T 97.8 F, and SpO2 100% on RA. EKG showed normal sinus rhythm at 63 bpm with no noted T wave or ST abnormalities. CBC showing bicytopenia with Hg 7.9 and Plt 98. Coagulation profile showed PT of 14.7 and INR 1.4. BMP showing Na 133, Cl 110, bicarb of 13, and anion gap of 10, BUN of 35, creatinine 1.65, GFR 51. Blood glucose was 119. Lactic acid was 1.8. Liver profile was unremarkable. Patient was evaluated by general surgeon, he is being admitted to general surgery team with plans to be taken to the OR for open surgical repair of incarcerated umbilical hernia. We were consulted for preoperative medical clearance and postoperative medical management. Patient underwent open repair of incarcerated umbilical hernia with umbillectomy on 10/[address] Hair. Renal function continued to worsen. Also noted to be more acidotic. Patient was started on albumin and octreotide. Midodrine was increased and Nephrology was consulted. Patient was started on bicarb drip. Renal function improving. Patient became encephalopathic on 10/18, started on rectal lactulose and transferred to medical ICU. His mentation continued to worsen, and he was intubated on 10/18. Started on Rocephin for concerns of SBP on 10/18. He has required Levophed since being intubated which is being slowly titrated down. CXR showing signs of right sided PNA, pro-mony elevated at 3.62, Rocephin switched to Zosyn on 10/21. Generalized tremors noted on 10/19, CT brain was negative for acute pathology and EEG showed moderate to severe background slowing. Started on Fentanyl drip (10/21-10/22) which improved his tremors, likely related to pain. There was concern for GI bleed as well. Hg downtrending to 6.6 on 10/21 requiring 1 unit PRBC. Subjective: Patient is basically about the same, still with surgical abdominal pain. No ove rnight events. no major change, patient is scheduled to have repeat paracentesis sometime later today. Objective - Vital Signs Vital signs: Vital Signs Temp 98.4 F 11/06/23 11:23 Pulse 89 11/06/23 11:23 Resp 16 11/06/23 11:23 BP 104/63 11/06/23 11:23 Pulse Ox 95 11/06/23 11:23 FiO2 2 10/28/23 00:00 Intake & Output 11/05/23 11/06/23 11/06/23 18:59 06:59 18:59 Intake Total 720 868 Output Total 675 350 Balance 45 -350 868 Weight 76 kg 74.4 kg Intake: IV 100 Meropenem 1 gm In Sodium 100 Chloride 0.9% 100 ml @ 33 .3 mls/hr IVPB Q8HR IRINA Rx#:[id number] Intake, IV Titration 650 Amount DAPTOmycin 500 mg In 50 Sodium Chloride 0.9% 50 ml @ 100 mls/hr IVPB Q24HR IRINA Rx#:[id number] Dextrose 5% in Water 1, 600 000 ml @ 50 mls/hr IV . 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 Psych - Calm and cooperative - Labs CBC & Chem 7: 11/06/23 06:28 11/06/23 06:28 Labs: Abnormal Lab Results - Last 24 Hours (Table) 11/05/23 11/05/23 11/05/23 Range/Units 10:37 16:23 20:02 RBC 3.21 L (4.30-5.90) m/uL Hgb 9.0 L (13.0-17.5) gm/dL Hct 30.4 L (39.0-53.0) % MCHC 29.6 L (31.0-37.0) g/dL RDW 22.7 H (11.5-15.5) % Monocytes # (0-1.0) k/uL Sodium (137-145) mmol/L Chloride (98-107) mmol/L Carbon Dioxide (22-30) mmol/L BUN (9-20) mg/dL Creatinine (0.66-1.25) mg/dL POC Glucose (mg/dL) 114 H 111 H (70-110) mg/dL Calcium (8.4-10.2) mg/dL Magnesium (1.6-2.3) mg/dL 11/06/23 11/06/23 11/06/23 Range/Units 06:00 06:28 06:28 RBC 3.16 L (4.30-5.90) m/uL Hgb 9.0 L (13.0-17.5) gm/dL Hct 29.3 L (39.0-53.0) % MCHC 30.7 L (31.0-37.0) g/dL RDW 22.7 H (11.5-15.5) % Monocytes # 1.5 H (0-1.0) k/uL Sodium 125 L (137-145) mmol/L Chloride 97 L (98-107) mmol/L Carbon Dioxide 19 L (22-30) mmol/L BUN 50 H (9-20) mg/dL Creatinine 1.40 H (0.66-1.25) mg/dL POC Glucose (mg/dL) 116 H (70-110) mg/dL Calcium 7.3 L (8.4-10.2) mg/dL Magnesium 2.4 H (1.6-2.3) mg/dL 11/06/23 Range/Units 11:20 RBC (4.30-5.90) m/uL Hgb (13.0-17.5) gm/dL Hct (39.0-53.0) % MCHC (31.0-37.0) g/dL RDW (11.5-15.5) % Monocytes # (0-1.0) k/uL Sodium (137-145) mmol/L Chloride (98-107) mmol/L Carbon Dioxide (22-30) mmol/L BUN (9-20) mg/dL Creatinine (0.66-1.25) mg/dL POC Glucose (mg/dL) 121 H (70-110) mg/dL Calcium (8.4-10.2) mg/dL Magnesium (1.6-2.3) mg/dL Assessment and Plan Plan: Acute encephalopathy secondary to toxic encephalopathy from sepsis and also hepatic encephalopathy and also polypharmacy This morning patient's mentation is AOx3 however Is slow to respond to questions I have decreased his frequency of the IV Dilaudid. Surgery to start the patient on [place] Decompensated liver cirrhosis Patient has had multiple paracentesis. Last paracentesis on 11/03/2023--will get one today Resume lactulose and rifaximin Continue with spironolactone 25 mg p.o. twice daily Nephrology holding Lasix due to acute kidney injury---resume upon discharge Acute kidney injury secondary to hepatorenal Metabolic acidosis Patient on midodrine and octreotide Creatinine is improving Bicarb is 15 today and is worsening. Discussed with nephrology Hyponatremia: Likely due to hypervolemic state and liver disease Recheck in 2 days after discharge. D/w care management. Healthcare associated pneumonia Septic shock Infectious disease recommending 10 days of meropenem. 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 D/w ID no need for abx on discharge. Patient overall has a poor prognosis. However not ready for hospice.
[2023-11-06 16:05] VITALS: PULSE 88; RESP 16
[2023-11-06 16:09] VITALS: BP 98/62
[2023-11-06 16:38] LABS: Glucose,Whole Blood 102 mg/dL (70-110)
--- NOTE | 2023-11-06 17:20 | P.PN ---
Subjective Patient is seen for follow-up for acute kidney injury. Scheduled for paracentesis today. Status post IV bicarb overnight. Acidosis has improved. Sodium however has dropped to 125 today. Serum creatinine improved to 1.4. Maintained on midodrine and Sandostatin. Blood pressure remains on the lower side. No significant complaints. Objective - Vital Signs Vital signs: Vital Signs Temp 98.4 F 11/06/23 11:23 Pulse 88 11/06/23 15:50 Resp 16 11/06/23 16:00 BP 98/62 11/06/23 16:00 Pulse Ox 96 11/06/23 16:00 FiO2 2 10/28/23 00:00 Intake & Output 11/05/23 11/06/23 11/06/23 18:59 06:59 18:59 Intake Total 720 1018 Output Total 675 350 550 Balance 45 -350 468 Weight 76 kg 74.4 kg Intake: IV 100 Meropenem 1 gm In Sodium 100 Chloride 0.9% 100 ml @ 33 .3 mls/hr IVPB Q8HR IRINA Rx#:[id number] Intake, IV Titration 800 Amount Albumin Human 25% 50 ml 150 In Empty Bag 1 bag @ 50 mls/hr IVPB ONCE ONE Rx#: [id number] DAPTOmycin 500 mg In 50 Sodium Chloride 0.9% 50 ml @ 100 mls/hr IVPB Q24HR IRINA Rx#:[id number] Dextrose 5% in Water 1, 600 000 ml @ 50 mls/hr IV . Q23H IRINA with Sodium Bicarb (1 Meq/ml) 150 ml Rx#:[id number] Oral 720 118 Output: Urine 675 350 550 Other: Voiding Method Indwelling Catheter Indwelling Catheter Indwelling Catheter # Bowel Movements 1 1 ABP, PAP, CO, CI - Last Documented Arterial Blood Pressure 109/54 - Exam Patient is awake and comfortable. No acute distress. Examination of the heart S1 and S2 Examination of the lungs bilateral breath sounds are heard Abdomen is soft ,nontender. 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 - Labs CBC & Chem 7: 11/06/23 06:28 11/06/23 06:28 Labs: Abnormal Lab Results - Last 24 Hours (Table) 11/05/23 11/06/23 11/06/23 Range/Units 20:02 06:00 06:28 RBC (4.30-5.90) m/uL Hgb (13.0-17.5) gm/dL Hct (39.0-53.0) % MCHC (31.0-37.0) g/dL RDW (11.5-15.5) % Monocytes # (0-1.0) k/uL Sodium 125 L (137-145) mmol/L Chloride 97 L (98-107) mmol/L Carbon Dioxide 19 L (22-30) mmol/L BUN 50 H (9-20) mg/dL Creatinine 1.40 H (0.66-1.25) mg/dL POC Glucose (mg/dL) 111 H 116 H (70-110) mg/dL Calcium 7.3 L (8.4-10.2) mg/dL Magnesium 2.4 H (1.6-2.3) mg/dL 11/06/23 11/06/23 Range/Units 06:28 11:20 RBC 3.16 L (4.30-5.90) m/uL Hgb 9.0 L (13.0-17.5) gm/dL Hct 29.3 L (39.0-53.0) % MCHC 30.7 L (31.0-37.0) g/dL RDW 22.7 H (11.5-15.5) % Monocytes # 1.5 H (0-1.0) k/uL Sodium (137-145) mmol/L Chloride (98-107) mmol/L Carbon Dioxide (22-30) mmol/L BUN (9-20) mg/dL Creatinine (0.66-1.25) mg/dL POC Glucose (mg/dL) 121 H (70-110) mg/dL Calcium (8.4-10.2) mg/dL Magnesium (1.6-2.3) mg/dL Assessment and Plan Assessment: 1. Acute kidney injury, ATN from hypotension versus hepatorenal syndrome. Improved. Maintained on midodrine, Sandostatin. status post albumin. No evidence of obstruction on computed tomography scan on 09/04/2023. 2. Non- gap metabolic acidosis associated with acute kidney injury. 3. Mild hyperkalemia associated with acute kidney injury and metabolic acidosis, improved 4. History of EtOH-related liver cirrhosis. 5. Status post open repair of incarcerated umbilical hernia and umbilectomy on 10/16/2023. 6. Ascites status post paracentesis of 8.8 L on 10/31/2023 7. Hepatic encephalopathy , improved. 8. Hyponatremia associated with underlying liver cirrhosis Plan: Repeat Lasix DC IV bicarb Continue with oral sodium bicarb Repeat IV albumin Repeat labs in a.m. Maintain midodrine and Sandostatin. Overall prognosis is guarded.
--- NOTE | 2023-11-09 12:02 | US ---
EXAMINATION TYPE: US paracentesis abd w/image DATE OF EXAM: 11/06/2023 2:34 PM CLINICAL INDICATION:Male, 43 years old with history of Liver failure; COMPARISON: 11/03/2023 ATTENDING: Dr. Marcin Calixto PROCEDURE: Informed consent was obtained. The risks of the procedure were extensively explained incl uding risk of damage to surrounding bowel with perforation and need for additional procedures. Proced ure was performed in the ultrasound procedure suite. Ultrasound imaging of the abdomen demonstrate as citic fluid. An appropriate access site was localized to the right lower abdomen. Timeout was taken p er protocol. The skin was prepped and draped in the usual sterile fashion and then locally anesthetiz ed with 1% lidocaine. The peritoneal cavity was then accessed via a 5-[place] one-step needle/cathete r. Approximately 9600 cc of clear straw-colored fluid was obtained. Postprocedural imaging of the a bdomen demonstrate a minimal amount of abdominal fluid. Patient tolerated procedure well without immediate complication. Hemostasis at the procedural site w as obtained with a sterile bandage placed. The patient was monitored in the holding area following th e procedure and was subsequently discharged in stable condition. IMPRESSION: Ultrasound guided paracentesis, with approximately 9600 cc of clear straw-colored fluid drained. No immediate complications were evident.
== END 2023-11-06 20:00 | DRG 353 ==
LOC: EC 06:42 → 4SSUR 08:44 → OBSVTOIN 08:45 → 6NMEDSUR 15:00 → 3SCARD 10-18 21:37 → 2SICU 10-19 06:49 → 3SCARD 10-29 13:26
PROVIDERS: ADMIT Surgery; ATTEND Surgery
PROC: 3E0T3BZ Introduction of Anesthetic Agent into Peripheral Nerves and Plexi, Percutaneous Approach (ICD-10-PCS; 2023-10-16)
PROC: 3E0T33Z Introduction of Anti-inflammatory into Peripheral Nerves and Plexi, Percutaneous Approach (ICD-10-PCS; 2023-10-16)
PROC: 30233J1 Transfusion of Nonautologous Serum Albumin into Peripheral Vein, Percutaneous Approach (ICD-10-PCS; 2023-10-17)
PROC: 03HY32Z Insertion of Monitoring Device into Upper Artery, Percutaneous Approach (ICD-10-PCS; 2023-10-19)
PROC: 4A133B1 Monitoring of Arterial Pressure, Peripheral, Percutaneous Approach (ICD-10-PCS; 2023-10-19)
PROC: 4A133J1 Monitoring of Arterial Pulse, Peripheral, Percutaneous Approach (ICD-10-PCS; 2023-10-19)
PROC: 02HV33Z Insertion of Infusion Device into Superior Vena Cava, Percutaneous Approach (ICD-10-PCS; 2023-10-19)
PROC: 3E043XZ Introduction of Vasopressor into Central Vein, Percutaneous Approach (ICD-10-PCS; 2023-10-19)
PROC: 0BH18EZ Insertion of Endotracheal Airway into Trachea, Via Natural or Artificial Opening Endoscopic (ICD-10-PCS; 2023-10-19)
PROC: 5A1955Z Respiratory Ventilation, Greater than 96 Consecutive Hours (ICD-10-PCS; 2023-10-19)
PROC: 0WQF0ZZ Repair Abdominal Wall, Open Approach (ICD-10-PCS; principal; 2023-10-22)
PROC: 03HY32Z Insertion of Monitoring Device into Upper Artery, Percutaneous Approach (ICD-10-PCS; 2023-10-22)
PROC: 4A133B1 Monitoring of Arterial Pressure, Peripheral, Percutaneous Approach (ICD-10-PCS; 2023-10-22)
PROC: 4A133J1 Monitoring of Arterial Pulse, Peripheral, Percutaneous Approach (ICD-10-PCS; 2023-10-22)
PROC: 30233N1 Transfusion of Nonautologous Red Blood Cells into Peripheral Vein, Percutaneous Approach (ICD-10-PCS; 2023-10-22)
PROC: 0W9G3ZZ Drainage of Peritoneal Cavity, Percutaneous Approach (ICD-10-PCS; 2023-10-26)
PROC: 0W9G3ZZ Drainage of Peritoneal Cavity, Percutaneous Approach (ICD-10-PCS; 2023-10-28)
PROC: 0W9G3ZZ Drainage of Peritoneal Cavity, Percutaneous Approach (ICD-10-PCS; 2023-10-31)
PROC: 0W9G3ZZ Drainage of Peritoneal Cavity, Percutaneous Approach (ICD-10-PCS; 2023-11-03)
PROC: 0W9G3ZZ Drainage of Peritoneal Cavity, Percutaneous Approach (ICD-10-PCS; 2023-11-06)
DX: K42.0 Umbilical hernia with obstruction, without gangrene (principal); G92.8 Other toxic encephalopathy; J96.01 Acute respiratory failure with hypoxia; K76.7 Hepatorenal syndrome; R65.21 Severe sepsis with septic shock; N17.0 Acute kidney failure with tubular necrosis; J15.1 Pneumonia due to Pseudomonas; J95.851 Ventilator associated pneumonia; E72.20 Disorder of urea cycle metabolism, unspecified; E87.20 Acidosis, unspecified; E87.3 Alkalosis; E87.1 Hypo-osmolality and hyponatremia; E87.0 Hyperosmolality and hypernatremia; D62 Acute posthemorrhagic anemia; K92.0 Hematemesis; K76.82 Hepatic encephalopathy; K70.31 Alcoholic cirrhosis of liver with ascites; D63.8 Anemia in other chronic diseases classified elsewhere; N18.32 Chronic kidney disease, stage 3b; F10.21 Alcohol dependence, in remission; F32.A Depression, unspecified; I12.9 Hypertensive chronic kidney disease with stage 1 through stage 4 chronic kidney disease, or unspecified chronic kidney disease; A49.8 Other bacterial infections of unspecified site; E87.6 Hypokalemia; T50.2X5A Adverse effect of carbonic-anhydrase inhibitors, benzothiadiazides and other diuretics, initial encounter; E87.8 Other disorders of electrolyte and fluid balance, not elsewhere classified; M62.50 Muscle wasting and atrophy, not elsewhere classified, unspecified site; T50.1X5A Adverse effect of loop [high-ceiling] diuretics, initial encounter; E86.9 Volume depletion, unspecified; E87.5 Hyperkalemia; F43.10 Post-traumatic stress disorder, unspecified; D75.89 Other specified diseases of blood and blood-forming organs; E78.5 Hyperlipidemia, unspecified; F17.210 Nicotine dependence, cigarettes, uncomplicated; E87.70 Fluid overload, unspecified; T40.2X5A Adverse effect of other opioids, initial encounter; R53.81 Other malaise; Y74.1 Therapeutic (nonsurgical) and rehabilitative general hospital and personal-use devices associated with adverse incidents; Y95 Nosocomial condition; Z79.899 Other long term (current) drug therapy; Z88.6 Allergy status to analgesic agent; Z91.85 Personal history of military service
CPT/HCPCS: 36415; 36600; 49083; 64488; 70450; 71045; 76705; 76770; 80048; 80053; 80076; 82042; 82140; 82271; 82550; 82805; 82945; 83036; 83605; 83735; 84132; 84145; 84157; 84295; 85025; 85027; 85610; 85730; 86140; 86850; 86900; 86901; 86920; 87040; 87070; 87075; 87077; 87186; 87205; 87324; 88108; 88302; 88305; 89050; 93005; 94002; 94003; 94640; 94760; 95822; 96374; 96376; 99285

== ENCOUNTER 2023-11-11 12:33 | Day surgery (SDC) | payer OTHER ==
[2023-11-11] MEDS ORDERED: ALBUMIN HUMAN 25% 50 ML in EMPTY BAG 1 BAG IVPB SCH (13:15)
[2023-11-11 13:26] VITALS: BP 105/51; PULSE 88; RESP 16; TEMP 97.5
[2023-11-11 13:26] LABS: Anisocytosis Moderate; Basophils % (A) 0 %; Eosinophils # (A) 0.2 k/uL (0-0.7); Eosinophils % (A) 2 %; HCT 31.5 % (39.0-53.0); HGB 9.8 gm/dL (13.0-17.5); Lymphocytes # (A) 1.5 k/uL (1.0-4.8); Lymphocytes % (A) 14 %; MCH 28.5 pg (25.0-35.0); MCV 92.1 fL (80.0-100.0); Macrocytosis Slight; Mean Platelet Volume 8.8; Monocytes # (A) 0.7 k/uL (0-1.0); Monocytes % (A) 7 %; Neutrophils # (A) 8.1 k/uL (1.3-7.7); Neutrophils % (A) 76 %; Platelet Count 263 k/uL (150-450); RBC 3.42 m/uL (4.30-5.90); RDW 21.5 % (11.5-15.5); WBC 10.7 k/uL (3.8-10.6)
[2023-11-11 13:29] LABS: INR 1.7 (<1.2); Prothrombin Time 17.6 sec (10.0-12.5)
[2023-11-11 13:44] LABS: ALT 20 U/L (4-49); AST 58 U/L (17-59); Alkaline Phosphatase 97 U/L (38-126); Anion Gap 16 mmol/L; Blood Urea Nitrogen 91 mg/dL (9-20); Calcium 7.9 mg/dL (8.4-10.2); Carbon Dioxide 12 mmol/L (22-30); Chloride 91 mmol/L (98-107); Glucose 96 mg/dL (74-99); Potassium 5.7 mmol/L (3.5-5.1); Total Bilirubin 1.9 mg/dL (0.2-1.3); Total Protein 6.8 g/dL (6.3-8.2)
[2023-11-11 13:50] LABS: African American GFR (CKD) 14 (>60 ml/min/1.73 sqM); Non-African American GFR(CKD) 12 (>60 ml/min/1.73 sqM)
[2023-11-11 13:51] LABS: Sodium 119 mmol/L (137-145)
[2023-11-11 14:26] LABS: Crenated RBC Present; Rouleaux Present
== END 2023-11-11 14:20 | disposition home or self-care (01) ==
LOC: RADPROMAIN 12:33
PROVIDERS: ATTEND Internal Medicine Gastroenterology
DX: Z53.8 Procedure and treatment not carried out for other reasons (principal); R18.8 Other ascites
CPT/HCPCS: 36415; 80053; 85025; 85610

== ENCOUNTER 2023-11-11 14:19 | Inpatient (IN) | payer OTHER ==
--- NOTE | 2023-11-11 14:39 | ED ---
Weakness HPI - General Source: patient, RN notes reviewed, old records reviewed Mode of arrival: wheelchair Limitations: no limitations <Mikel Gonzalez - Last Filed: 11/11/23 14:38> - General Source: RN notes reviewed <Poonam Frazier - Last Filed: 11/11/23 18:22> - General Chief complaint: Weakness Stated complaint: abn labs Time Seen by Provider: 11/11/23 14:28 - History of Present Illness Initial comments: Quick [id number] male presents emergency department from [facility] for abnormal labs. Patient is not really sure why or what was abnormal. Patient states he does feel weak you recent had a long hospitalization after incarcerated umbilical hernia and extended hospitalization. Patient labs show hyponatremia, renal failure. (Mikel Gonzalez) 43-year-old male with stage IV liver failure, hypertension, and hyperlipidemia presenting from [facility] for abnormal labs. Patient states he feels weak and has had some diarrhea recently. He is unsure why he was sent from [facility]. He had a recent long hospitalization after incarcerated umbilical hernia. States his last alcoholic drink was over 2 years ago. Denies chest pain, fever, chills, palpitations, shortness of breath. (Poonam Frazier) - Related Data Home Medications Medication Instructions Recorded Confirmed HYDROcodone/APAP 5-325MG [[place] 1 - 2 tab PO Q4HR PRN 05/06/23 11/09/23 5-325] Midodrine HCl [ProAmatine] 10 mg PO TID 05/06/23 11/09/23 Omeprazole 20 mg PO DAILY 11/11/23 11/11/23 Previous Rx's Medication Instructions Recorded Furosemide [Lasix] 40 mg PO DAILY #30 tablet 03/02/23 Spironolactone [Aldactone] 25 mg PO BID #60 tab 05/14/23 Lactulose [Cephulac] 20 gm PO DAILY 30 Days #1000 ml 11/06/23 Allergies Allergy/AdvReac Type Severity Reaction Status Date / Time ibuprofen [From Motrin] Allergy Swelling Verified 11/11/23 14:22 Lips naproxen Allergy Swelling Verified 11/11/23 14:22 Lips Review of Systems ROS Other: All systems not noted in ROS Statement are negative. <Mikel Gonzalez - Last Filed: 11/11/23 14:38> ROS Other: All systems not noted in ROS Statement are negative. <Poonam Frazier - Last Filed: 11/11/23 18:22> ROS Statement: Those systems with pertinent positive or pertinent negative responses have been documented in the HPI. Past Medical History Past Medical History: Hyperlipidemia, Hypertension, Liver Disease, Pneumonia Additional Past Medical History / Comment(s): Alcoholism, past withdrawals with tremors/diaphoresis, elevated LFTs, alcoholic liver cirrhosis follows with Liver specialist based out of [place], ascities with lg volume paracentesis, severe sepsis/aspiration pneumonia, occasional upper back pain. History of Any Multi-Drug Resistant Organisms: None Reported Past Surgical History: No Surgical Hx Reported Additional Past Surgical History / Comment(s): Pt states he has never had surg tiki, multi large volume paracentesis weekly Past Anesthesia/Blood Transfusion Reactions: Unable to Obtain Additional Past Anesthesia/Blood Transfusion Reaction / Comment(s): Pt states he has never had surgery. Past Psychological History: Depression, PTSD Smoking Status: Current every day smoker Past Alcohol Use History: None Reported, Abuse Past Drug Use History: None Reported - Past Family History Mother Family Medical History: Cancer Additional Family Medical History / Comment(s): Mother has colon cancer. Father History Unknown: Yes Additional Family Medical History / Comment(s): All pt knows about his father is that he is . <Mikel Gonzalez - Last Filed: 11/11/23 14:38> General Exam Limitations: no limitations <Mikel Gonzalez - Last Filed: 11/11/23 14:38> General appearance: alert, in no apparent distress Head exam: Present: atraumatic, normocephalic, normal inspection Eye exam: Present: normal appearance, PERRL, EOMI. Absent: scleral icterus, conjunctival injection, periorbital swelling ENT exam: Present: normal exam, mucous membranes moist Respiratory exam: Present: normal lung sounds bilaterally. Absent: respiratory distress, wheezes, rales, rhonchi, stridor Cardiovascular Exam: Present: regular rate, normal rhythm, normal heart sounds. Absent: systolic murmur, diastolic murmur, rubs, gallop, clicks GI/Abdominal exam: Present: soft, normal bowel sounds. Absent: distended, tenderness, guarding, rebound, rigid <Poonam Frazier - Last Filed: 11/11/23 18:22> - General Exam Comments Initial Comments: Visual Physical Exam Vital signs reviewed General: Well-appearing, nontoxic, no acute distress. Head: Normocephalic, atraumatic Eyes: PERRLA, EOMI ENT: Airway patent Chest: Nonlabored breathing Skin: No visual rash, normal skin tone Neuro: Alert and oriented 3 Musculoskeletal: No gross abnormalities (Mikel Gonzalez) Course Vital Signs 11/11/23 11/11/23 14:20 16:33 Temperature 97.8 F 97.7 F Pulse Rate 86 87 Respiratory 20 18 Rate Blood Pressure 100/64 100/52 O2 Sat by Pulse 100 100 Oximetry EKG Findings - EKG Results: EKG: interpreted by ERMD (EKG reveals normal sinus rhythm with no ST changes. Ventricular rate 84 bpm, IN interval 139, QRS duration 102, QT/QTc 370/411.) <Poonam Frazier - Last Filed: 11/11/23 18:22> Medical Decision Making <Mikel Gonzalez - Last Filed: 11/11/23 14:38> - Lab Data Result diagrams: 11/11/23 14:25 11/11/23 14:25 <Poonam Frazier - Last Filed: 11/11/23 18:22> - Medical Decision Making I completed the quick note portion of this chart signed Mikel Gonzalez PA-C (Mikel Gonzalez) Was pt. sent in by a medical professional or institution (TASHA Camejo, HYDROGEN CELL TENDER, urgent care, hospital, or jail...) When possible be specific @ -Sent from [facility] Did you speak to anyone other than the patient for history (EMS, parent, family, police, friend...)? What history was obtained from this source @ -No Did you review nursing and triage notes (agree or disagree)? Why? @ -I reviewed and agree with nursing and triage notes Were old charts reviewed (outside hosp., previous admission, EMS record, old EKG, old radiological studies, urgent care reports/EKG's, jail records)? Report findings @ -No old charts were reviewed Differential Diagnosis (chest pain, altered mental status, abdominal pain women, abdominal pain men, vaginal bleeding, weakness, fever, dyspnea, syncope, headache, dizziness, GI bleed, back pain, seizure, CVA, palpatations, mental health, musculoskeletal)? @ -Differential Weakness: Hypoglycemia, shock, sepsis, hyponatremia, anemia, infection, PR, ETOH, adverse medicine reaction, overdose, stroke, this is not meant to be an all-inclusive list. EKG interpreted by me (3pts min.). @ -As above X-rays interpreted by me (1pt min.). @ -None done CT interpreted by me (1pt min.). @ -None done U/S interpreted by me (1pt. min.). @ -Ultrasound abdomen pending upon admission What testing was considered but not performed or refused? (CT, X-rays, U/S, labs)? Why? @ -None What meds were considered but not given or refused? Why? @ -None Did you discuss the management of the patient with other professionals (professionals i.e. , PA, HYDROGEN CELL TENDER, lab, RT, psych nurse, administrator social welfare, logistics analyst, teacher, chief fundraising officer, rehabilitation caseworker)? Give summary @ -I spoke with Dr. Hobbs who is the on-call chief bank examiner. He recommended bicarb drip, Epps catheter, Lokelma, abdominal ultrasound, and repeat BMP at 2200. I then spoke with Dr. Ambrocio from [facility] who accepts admission at this time for acute renal failure and hyponatremia with consultation to nephrology and GI services. Was smoking cessation discussed for >3mins.? @ -No Was critical care preformed (if so, how long)? @ -No Were there social determinants of health that impacted care today? How? (Homelessness, low income, unemployed, alcoholism, drug addiction, transportation, low edu. Level, literacy, decrease access to med. care, halfway, rehab)? @ -No Was there de-escalation of care discussed even if they declined (Discuss DNR or withdrawal of care, Hospice)? DNR status @ -No What co-morbidities impacted this encounter? (DM, HTN, Smoking, COPD, CAD, Cancer, CVA, ARF, Chemo, Hep., AIDS, mental health diagnosis, sleep apnea, morbid obesity)? @ -Stage IV liver failure Was patient admitted / discharged? Hospital course, mention meds given and route, prescriptions, significant lab abnormalities, going to OR and other pertinent info. @ -Patient was admitted. Patient was seen and evaluated for abnormal labs. Patient has history of alcohol use disorder, and stage IV liver failure. Vital signs are within normal limits. Patient is alert and oriented. Lab work is remarkable for sodium 128, potassium 5.6, INR 1.6, CO2 11, creatinine 5.49, BUN 93, urinalysis reveals large amount of blood and 11 white blood cells. I spoke with Dr. Howard who advised bicarb drip, Epps catheter, Lokelma, abdominal ultrasound at this time.-Spoke with Dr. Ambrocio from [facility] who accepts admission at this time for acute renal failure and hyponatremia with consultation to nephrology and GI services. Case was discussed with my attending Dr. Restrepo. Undiagnosed new problem with uncertain prognosis? @ -No Drug Therapy requiring intensive monitoring for toxicity (Heparin, Nitro, Insulin, Cardizem)? @ -No Were any procedures done? @ -No Diagnosis/symptom? @ -Acute renal failure, hyponatremia Acute, or Chronic, or Acute on Chronic? @ -Acute Uncomplicated (without systemic symptoms) or Complicated (systemic symptoms)? @ -Complicated Side effects of treatment? @ -No Exacerbation, Progression, or Severe Exacerbation? @ -No Poses a threat to life or bodily function? How? (Chest pain, USA, PR, pneumonia, PE, COPD, DKA, ARF, appy, cholecystitis, CVA, Diverticulitis, Homicidal, Suicidal, threat to staff... and all critical care pts) @ -Possibly (Poonam Frazier) - Lab Data Lab Results 11/11/23 11/11/23 11/11/23 Range/Units 14:25 14:25 14:25 WBC 10.9 H (3.8-10.6) k/uL RBC 3.37 L (4.30-5.90) m/uL Hgb 9.8 L (13.0-17.5) gm/dL Hct 30.8 L (39.0-53.0) % MCV 91.4 (80.0-100.0) fL MCH 29.1 (25.0-35.0) pg MCHC 31.8 (31.0-37.0) g/dL RDW 21.8 H (11.5-15.5) % Plt Count 238 (150-450) k/uL MPV 8.5 Neutrophils % 75 % Lymphocytes % 13 % Monocytes % 7 % Eosinophils % 2 % Basophils % 0 % Neutrophils # 8.2 H (1.3-7.7) k/uL Lymphocytes # 1.5 (1.0-4.8) k/uL Monocytes # 0.7 (0-1.0) k/uL Eosinophils # 0.2 (0-0.7) k/uL Basophils # 0.0 (0-0.2) k/uL Anisocytosis Moderate Macrocytosis Slight PT 16.8 H (10.0-12.5) sec INR 1.6 H (<1.2) APTT 35.9 H (22.0-30.0) sec Sodium 120 L (137-145) mmol/L Potassium 5.6 H (3.5-5.1) mmol/L Chloride 92 L (98-107) mmol/L Carbon Dioxide 11 L (22-30) mmol/L Anion Gap 17 mmol/L BUN 93 H (9-20) mg/dL Creatinine 5.49 H (0.66-1.25) mg/dL Est GFR (CKD-EPI)AfAm 14 (>60 ml/min/1.73 sqM) Est GFR (CKD-EPI)NonAf 12 (>60 ml/min/1.73 sqM) Glucose 89 (74-99) mg/dL Plasma Lactic Acid Willam (0.7-2.0) mmol/L Calcium 8.0 L (8.4-10.2) mg/dL Magnesium 2.1 (1.6-2.3) mg/dL Total Bilirubin 1.9 H (0.2-1.3) mg/dL AST 48 (17-59) U/L ALT 20 (4-49) U/L Alkaline Phosphatase 121 (38-126) U/L Troponin I (0.000-0.034) ng/mL Total Protein 6.7 (6.3-8.2) g/dL Albumin 3.0 L (3.5-5.0) g/dL Amylase 61 (30-110) U/L Lipase 370 H (23-300) U/L Urine Color Urine Appearance (Clear) Urine pH (5.0-8.0) Ur Specific [place] (1.001-1.035) Urine Protein (Negative) Urine Glucose (UA) (Negative) Urine Ketones (Negative) Urine Blood (Negative) Urine Nitrite (Negative) Urine Bilirubin (Negative) Urine Urobilinogen (<2.0) mg/dL Ur Leukocyte Esterase (Negative) Urine RBC (0-5) /hpf Urine WBC (0-5) /hpf Urine Bacteria (None) /hpf Hyaline Casts (0-2) /lpf Urine Mucus (None) /hpf Urine Yeast (Budding) (None) /hpf 11/11/23 11/11/23 11/11/23 Range/Units 14:25 14:25 14:26 WBC (3.8-10.6) k/uL RBC (4.30-5.90) m/uL Hgb (13.0-17.5) gm/dL Hct (39.0-53.0) % MCV (80.0-100.0) fL MCH (25.0-35.0) pg MCHC (31.0-37.0) g/dL RDW (11.5-15.5) % Plt Count (150-450) k/uL MPV Neutrophils % % Lymphocytes % % Monocytes % % Eosinophils % % Basophils % % Neutrophils # (1.3-7.7) k/uL Lymphocytes # (1.0-4.8) k/uL Monocytes # (0-1.0) k/uL Eosinophils # (0-0.7) k/uL Basophils # (0-0.2) k/uL Anisocytosis Macrocytosis PT (10.0-12.5) sec INR (<1.2) APTT (22.0-30.0) sec Sodium (137-145) mmol/L Potassium (3.5-5.1) mmol/L Chloride (98-107) mmol/L Carbon Dioxide (22-30) mmol/L Anion Gap mmol/L BUN (9-20) mg/dL Creatinine (0.66-1.25) mg/dL Est GFR (CKD-EPI)AfAm (>60 ml/min/1.73 sqM) Est GFR (CKD-EPI)NonAf (>60 ml/min/1.73 sqM) Glucose (74-99) mg/dL Plasma Lactic Acid Willam 1.8 (0.7-2.0) mmol/L Calcium (8.4-10.2) mg/dL Magnesium (1.6-2.3) mg/dL Total Bilirubin (0.2-1.3) mg/dL AST (17-59) U/L ALT (4-49) U/L Alkaline Phosphatase (38-126) U/L Troponin I <0.012 (0.000-0.034) ng/mL Total Protein (6.3-8.2) g/dL Albumin (3.5-5.0) g/dL Amylase (30-110) U/L Lipase (23-300) U/L Urine Color Yellow Urine Appearance Cloudy (Clear) Urine pH 5.0 (5.0-8.0) Ur Specific Sterling 1.022 (1.001-1.035) Urine Protein Trace H (Negative) Urine Glucose (UA) Negative (Negative) Urine Ketones Negative (Negative) Urine Blood Large H (Negative) Urine Nitrite Negative (Negative) Urine Bilirubin Negative (Negative) Urine Urobilinogen <2.0 (<2.0) mg/dL Ur Leukocyte Esterase Small H (Negative) Urine RBC >182 H (0-5) /hpf Urine WBC 11 H (0-5) /hpf Urine Bacteria Rare H (None) /hpf Hyaline Casts 11 H (0-2) /lpf Urine Mucus Rare H (None) /hpf Urine Yeast (Budding) Rare H (None) /hpf Disposition <Mikel Gonzalez - Last Filed: 11/11/23 14:38> Time of Disposition: 18:22 <Poonam Frazier - Last Filed: 11/11/23 18:22> Clinical Impression: Acute renal failure, Hyponatremia Disposition: ADMITTED IP TO THIS HOSP Referrals: Mikel Urias DO [Primary Care Provider] - 1-2 days
[2023-11-11 14:52] LABS: Anisocytosis Moderate; Basophils % (A) 0 %; Eosinophils # (A) 0.2 k/uL (0-0.7); Eosinophils % (A) 2 %; HCT 30.8 % (39.0-53.0); HGB 9.8 gm/dL (13.0-17.5); Lymphocytes # (A) 1.5 k/uL (1.0-4.8); Lymphocytes % (A) 13 %; MCH 29.1 pg (25.0-35.0); MCHC 31.8 g/dL (31.0-37.0); MCV 91.4 fL (80.0-100.0); Macrocytosis Slight; Mean Platelet Volume 8.5; Monocytes # (A) 0.7 k/uL (0-1.0); Monocytes % (A) 7 %; Neutrophils # (A) 8.2 k/uL (1.3-7.7); Neutrophils % (A) 75 %; Platelet Count 238 k/uL (150-450); RBC 3.37 m/uL (4.30-5.90); RDW 21.8 % (11.5-15.5); WBC 10.9 k/uL (3.8-10.6)
[2023-11-11 14:56] LABS: Appearance,Urine Cloudy (Clear); Bacteria,Urine Rare /hpf; Bilirubin,Urine Negative (Negative); Blood,Urine Large (Negative); Budding Yeast,Urine Rare /hpf; Color,Urine Yellow; Glucose,Urine (UA) Negative (Negative); Hyaline Casts,Urine 11 /lpf (0-2); Ketones,Urine Negative (Negative); Leukocyte Esterase,Urine Small (Negative); Mucus,Urine Rare /hpf; Nitrite,Urine Negative (Negative); Protein,Urine Trace (Negative); RBC,Urine >182 /hpf (0-5); Specific Gravity,Urine 1.022 (1.001-1.035); Urobilinogen,Urine <2.0 mg/dL (<2.0); WBC,Urine 11 /hpf (0-5)
[2023-11-11 15:03] LABS: ALT 20 U/L (4-49); AST 48 U/L (17-59); Alkaline Phosphatase 121 U/L (38-126); Amylase 61 U/L (30-110); Anion Gap 17 mmol/L; Blood Urea Nitrogen 93 mg/dL (9-20); Carbon Dioxide 11 mmol/L (22-30); Chloride 92 mmol/L (98-107); Glucose 89 mg/dL (74-99); Lipase 370 U/L (23-300); Magnesium 2.1 mg/dL (1.6-2.3); Potassium 5.6 mmol/L (3.5-5.1); Sodium 120 mmol/L (137-145); Total Bilirubin 1.9 mg/dL (0.2-1.3); Total Protein 6.7 g/dL (6.3-8.2)
[2023-11-11 15:09] LABS: African American GFR (CKD) 14 (>60 ml/min/1.73 sqM); Non-African American GFR(CKD) 12 (>60 ml/min/1.73 sqM)
[2023-11-11 15:12] LABS: INR 1.6 (<1.2); Partial Thromboplastin Time 35.9 sec (22.0-30.0); Prothrombin Time 16.8 sec (10.0-12.5)
[2023-11-11] MEDS ORDERED: NALOXONE 0.4 MG/ML 1 ML VIAL IV PRN (18:14)
[2023-11-11] MEDS: DEXTROSE 5% IN WATER 1,000 ML with SODIUM BICARB (1 MEQ/ML) 150 ML IV SCH ×2 (18:20→23:00)
[2023-11-11] MEDS: SODIUM ZIRCONIUM CYCLOSILICATE 10 GM PACKET PO ONE (18:30)
--- NOTE | 2023-11-11 19:00 | US ---
EXAMINATION TYPE: US kidneys/renal and bladder DATE OF EXAM: 11/11/2023 COMPARISON: NONE CLINICAL INDICATION: Male, 43 years old with history of ascitis, r/o hydronephrosis; Patient has know n ascites. EXAM MEASUREMENTS: Right Kidney: 9.2 x 4.9 x 5.5 cm Left Kidney: 10.6 x 5.8 x 4.4 cm Slightly limited due to rib shadows and ascites Right Kidney: There is a small anechoic area seen mid/medial right kidney compatible withextrarenal p sana Left Kidney: No hydronephrosis or masses seen as best visualized. Limited by rib shadows Bladder: Bladder not distended, gonzalez catheter seen. Bilateral Jets seen: No IMPRESSION: 1. No evidence for obstructive uropathy. 2. Gonzalez catheter in place. 3. Small abdominal ascites.
[2023-11-11 20:41] LABS: Anion Gap 13 mmol/L; Blood Urea Nitrogen 96 mg/dL (9-20); Calcium 7.8 mg/dL (8.4-10.2); Carbon Dioxide 15 mmol/L (22-30); Chloride 91 mmol/L (98-107); Glucose 126 mg/dL (74-99); Potassium 5.3 mmol/L (3.5-5.1)
[2023-11-11 20:46] LABS: African American GFR (CKD) 13 (>60 ml/min/1.73 sqM); Non-African American GFR(CKD) 11 (>60 ml/min/1.73 sqM)
[2023-11-11 20:59] LABS: Sodium 119 mmol/L (137-145)
[2023-11-11 22:33] LABS: Sodium 118 mmol/L (137-145)
--- NOTE | 2023-11-11 23:04 | P.HPIM ---
History of Present Illness H&P Date: 11/11/23 Chief Complaint: hyponatremia, weakness Patient is a 43-year-old male with past medical history of stage IV liver failure managed with weekly paracentesis (last paracentesis on 11/09/2023 - 9600 cc drained), hypertension and hyperlipidemia presented to ER with complaint of generalized weakness that started 1 to 2 days ago. Patient came in today to the hospital for paracentesis but it was canceled due to patient's severe hyponatremia with sodium 119. The patient was advised to go to the emergency room. Patient reports he has been feeling generalized weakness since he was diagnosed with liver failure. Patient is undergoing rehabilitation at [facility] for status post incarcerated umbilical hernia repair done on 10/16/2023 at [facility] by Dr. Vel Hair. Patient endorses sharp abdominal pain at the site of incision of of the repair. He reports that it is constant, 9 out off 10, nonradiating with no alleviating or exacerbating factors. Patient denies diarrhea or constipation. He denies fever, chills, nausea, vomiting, headaches, dizziness, loss of consciousness, blurry vision, shortness of breath, chest pain, numbness or tingling in upper or lower extremities. The patient continues to drink a gallon of hard liquor daily. EKG done in the ER shows normal sinus rhythm with heart rate of 84 bpm, W[place] interval 139 ms. Normal R wave progression. No QTc prolongation noted. Abdominal ultrasound shows no evidence of obstructive uropathy with gonzalez catheter is in place and small amount of abdominal ascites is noted. Laboratory evaluation shows sodium 119 (baseline 125), WBC 10.9, hemoglobin 9.8 (at baseline), hematocrit 30.8, platelet count 238, PT 16.8, INR 1.6 (baseline 1.5), PTT 36.9, , potassium 5.3, chloride 91, bicarb 15, anion gap 13, BUN 96, creatinine 4.65, EGFR 11, glucose 126, calcium 7.8, troponin 0.012, albumin 3.0, lipase 370. Vital signs: Tmax 97.8 F, heart rate 86, respiratory rate 15, blood pressure 116/57, oxygen saturation 98% on room air. Review of systems: Pertinent positives and negatives as discussed in HPI, a complete review of systems was performed and all other systems are negative. Social history: Tobacco: 1 pack/day x 30 years Alcohol: 3.5 gallon time 5 years Recreational drugs: None Travel: None Occupation: Retired Family History: Noncontributory Physical examination: Vital signs reviewed General: Ill-appearing male, no distress, appears significantly older than stated age, normal weight Derm: Bilateral lower extremity excoriations with some desquamation noted, warm Head: atraumatic, normocephalic, symmetric Eyes: EOMI, no lid lag, bilateral scleral icterus, pupils equal round reactive to light ENT: Nose and ears atraumatic Neck: No cervical lymphadenopathy, trachea midline, supple Mouth: no lip lesion, mucus membranes moist Cardiovascular: S1S2 reg, no murmur, positive dorsalis pedis pulse bilateral, no edema Lungs: CTA bilateral, no rhonchi, no rales, no accessory muscle use Abdominal: Mildly distended with tenderness at the well healing surgical incision which is intact with no surrounding erythema, no guarding noted Ext: muscle strength 4 out of 5 in all 4 extremities grossly, no gross muscle atrophy, no contractures, Neuro: CN II-XI grossly intact, no gross focal neuro deficits Psych: Alert, oriented, appropriate affect Assessment/Plan: 43-year-old male with past medical history of stage IV liver failure managed with weekly paracentesis, status post incarcerated umbilical hernia repair, hypertension and hyperlipidemia presented to ER with symptoms of worsening generalized weakness. #Severe symptomatic hyponatremia, likely due to hepatorenal syndrome with systemic vasodilation and SiADH The patient's sodium trended down from 120-118. Case was discussed with nephrology on-call Dr. Howard who recommended initiation of hypertonic saline 3% at 25 ml/hr with goal sodium correction no more than 4 to 6 mmol/L in 24 hours Continue to monitor BMP every 2 hour for now Nephrology consulted Initiate Ceftriaxone 1g qd for SBP prophylaxis End-stage cirrhosis C/w home med Lactulose 20 mg po qd GI consulted MELD score: 32 points (52.6% estimated 3-month mortality) #Hyperkalemia, likely due to IVAN and CKD Monitor BMP Administer calcium gluconate 1 g Cardiac monitoring Status post Lokelma in the emergency room #IVAN on chronic kidney disease, suspect due to hepatorenal syndrome BUN 96, creatinine 5.65, EGFR 11 Nephrology consulted Continue to monitor BMP #Hematuria, unclear etiology Patient is currently on Gonzalez catheter #Leukocytosis, similar to baseline Continue to monitor CBC #Hypertension Hold patient's home Aldactone and Lasix at this time DVT prophylaxis: IPCDs The patient is admitted with an anticipated greater than 2 midnight stay for evaluation of hyponatremia CODE STATUS: Full Discussed with: Patient Anticipated discharge place: Home Past Medical History Past Medical History: Hyperlipidemia, Hypertension, Liver Disease, Pneumonia Additional Past Medical History / Comment(s): Alcoholism, past withdrawals with tremors/diaphoresis, elevated LFTs, alcoholic liver cirrhosis follows with Liver specialist based out of [place], ascities with lg volume paracentesis, severe sepsis/aspiration pneumonia, occasional upper back pain. History of Any Multi-Drug Resistant Organisms: None Reported Past Surgical History: No Surgical Hx Reported Additional Past Surgical History / Comment(s): Pt states he has never had surgery, multi large volume paracentesis weekly Past Anesthesia/Blood Transfusion Reactions: Unable to Obtain Additional Past Anesthesia/Blood Transfusion Reaction / Comment(s): Pt states he has never had surgery. Past Psychological History: Depression, PTSD Smoking Status: Current every day smoker Past Alcohol Use History: None Reported, Abuse Past Drug Use History: None Reported - Past Family History Mother Family Medical History: Cancer Additional Family Medical History / Comment(s): Mother has colon cancer. Father History Unknown: Yes Additional Family Medical History / Comment(s): All pt knows about his father is that he is . Medications and Allergies Home Medications Medication Instructions Recorded Confirmed Type HYDROcodone/APAP 5-325MG [[place] 1 - 2 tab PO Q4HR PRN 05/06/23 11/11/23 History 5-325] Midodrine HCl [ProAmatine] 10 mg PO TID@0600,1300,2100 05/06/23 11/11/23 History Lactulose [Cephulac] 20 gm PO DAILY 30 Days #1000 ml 11/06/23 11/11/23 Rx Furosemide [Lasix] 40 mg PO DAILY@0600 11/11/23 11/11/23 History Omeprazole 20 mg PO DAILY@0600 11/11/23 11/11/23 History Ondansetron [Zofran] 4 mg PO Q6H PRN 11/11/23 11/11/23 History Spironolactone [Aldactone] 25 mg PO BID@0600,1300 11/11/23 11/11/23 History Allergies Allergy/AdvReac Type Severity Reaction Status Date / Time ibuprofen [From Motrin] Allergy Swelling Verified 11/11/23 14:22 Lips naproxen Allergy Swelling Verified 11/11/23 14:22 Lips Physical Exam Vitals: Vital Signs Temp Pulse Resp BP Pulse Ox 11/11/23 16:33 97.7 F 87 18 100/52 100 11/11/23 14:20 97.8 F 86 20 100/64 100 Intake and Output 11/11/23 11/11/23 11/11/23 06:59 14:59 22:59 Other: Weight 78.925 kg Results CBC & Chem 7: 11/11/23 14:25 11/11/23 21:47 Labs: Abnormal Lab Results - Last 24 Hours (Table) 11/11/23 11/11/23 11/11/23 Range/Units 14:25 14:25 14:25 WBC 10.9 H (3.8-10.6) k/uL RBC 3.37 L (4.30-5.90) m/uL Hgb 9.8 L (13.0-17.5) gm/dL Hct 30.8 L (39.0-53.0) % RDW 21.8 H (11.5-15.5) % Neutrophils # 8.2 H (1.3-7.7) k/uL PT 16.8 H (10.0-12.5) sec INR 1.6 H (<1.2) APTT 35.9 H (22.0-30.0) sec Sodium 120 L (137-145) mmol/L Potassium 5.6 H (3.5-5.1) mmol/L Chloride 92 L (98-107) mmol/L Carbon Dioxide 11 L (22-30) mmol/L BUN 93 H (9-20) mg/dL Creatinine 5.49 H (0.66-1.25) mg/dL Calcium 8.0 L (8.4-10.2) mg/dL Total Bilirubin 1.9 H (0.2-1.3) mg/dL Albumin 3.0 L (3.5-5.0) g/dL Lipase 370 H (23-300) U/L Urine Protein (Negative) Urine Blood (Negative) Ur Leukocyte Esterase (Negative) Urine RBC (0-5) /hpf Urine WBC (0-5) /hpf Urine Bacteria (None) /hpf Hyaline Casts (0-2) /lpf Urine Mucus (None) /hpf Urine Yeast (Budding) (None) /hpf 11/11/23 Range/Units 14:26 WBC (3.8-10.6) k/uL RBC (4.30-5.90) m/uL Hgb (13.0-17.5) gm/dL Hct (39.0-53.0) % RDW (11.5-15.5) % Neutrophils # (1.3-7.7) k/uL PT (10.0-12.5) sec INR (<1.2) APTT (22.0-30.0) sec Sodium (137-145) mmol/L Potassium (3.5-5.1) mmol/L Chloride (98-107) mmol/L Carbon Dioxide (22-30) mmol/L BUN (9-20) mg/dL Creatinine (0.66-1.25) mg/dL Calcium (8.4-10.2) mg/dL Total Bilirubin (0.2-1.3) mg/dL Albumin (3.5-5.0) g/dL Lipase (23-300) U/L Urine Protein Trace H (Negative) Urine Blood Large H (Negative) Ur Leukocyte Esterase Small H (Negative) Urine RBC >182 H (0-5) /hpf Urine WBC 11 H (0-5) /hpf Urine Bacteria Rare H (None) /hpf Hyaline Casts 11 H (0-2) /lpf Urine Mucus Rare H (None) /hpf Urine Yeast (Budding) Rare H (None) /hpf
[2023-11-12 01:03] LABS: Anion Gap 14 mmol/L; Blood Urea Nitrogen 96 mg/dL (9-20); Calcium 7.6 mg/dL (8.4-10.2); Carbon Dioxide 14 mmol/L (22-30); Chloride 91 mmol/L (98-107); Glucose 96 mg/dL (74-99)
[2023-11-12 01:09] LABS: African American GFR (CKD) 13 (>60 ml/min/1.73 sqM); Non-African American GFR(CKD) 11 (>60 ml/min/1.73 sqM)
[2023-11-12 01:23] LABS: Sodium 119 mmol/L (137-145)
[2023-11-12] MEDS: CALCIUM GLUCONATE IN NACL 1 GM in SALINE 1 100ML.BAG IVPB ONE (02:10)
[2023-11-12] MEDS: SODIUM CHLORIDE 3%(HYPERTONIC) 500 ML IV ONE ×2 (02:52→05:42)
[2023-11-12] MEDS ORDERED: NALOXONE 0.4 MG/ML 1 ML VIAL IV PRN (05:23)
[2023-11-12 05:58] LABS: Glucose,Whole Blood 136 mg/dL (70-110)
[2023-11-12] MEDS ORDERED: DEXTROSE 5% IN WATER 1,000 ML with SODIUM BICARB (1 MEQ/ML) 150 ML IV SCH (09:00)
[2023-11-12] MEDS: LACTULOSE 20 GM/30 ML CUP PO SCH ×2 (09:01→20:44)
--- NOTE | 2023-11-12 11:14 | P.NPCON ---
History of Present Illness - Reason for Consult acute renal failure, hyponatremia - History of Present Illness Reason for consultation: Acute kidney injury and hyponatremia History of present illness: Patient is a 43-year-old male seen in renal consultation for acute kidney injury and hyponatremia. Patient has history of alcohol induced liver cirrhosis. Patient was recently admitted at this facility and at the time of discharge on November 06, 2023 his creatinine was 1.4. This admission creatinine was 5.32 and is up to 5.84 today. Sodium was also low at 120. Patient was given isotonic sodium bicarb drip and sodium level dropped down to 118. Patient was subsequently started on 3% saline earlier this morning and sodium level as of this morning at 9:52 AM was up to 122. Patient states he has not drank alcohol in quite some time. Patient does require frequent paracentesis. He had a paracentesis done November 13, 2023 as well as November 06, 2023 with 9.6 L drained each time. He went for another paracentesis yesterday but was sent to the hospital due to acute kidney injury and hyponatremia. Acidosis is slightly improved. Patient denies history of diabetes or coronary artery disease. I do see spironolactone and Lasix on his home medication list but unclear as to exactly what he was taking. He presents from an extended care facility. Patient has requested a hospice consult. Vital signs are stable. General: No acute distress. HEENT: Head exam is unremarkable. On nasal cannula. LUNGS: No audible rhonchi or wheezes. HEART: Rate and Rhythm are regular. ABDOMEN: Distention noted. EXTREMITITES: No edema. Past Medical History Past Medical History: Hyperlipidemia, Hypertension, Liver Disease, Pneumonia Additional Past Medical History / Comment(s): Alcoholism, past withdrawals with tremors/diaphoresis, elevated LFTs, alcoholic liver cirrhosis follows with Liver specialist based out of [place], ascities with lg volume paracentesis, severe sepsis/aspiration pneumonia, occasional upper back pain. History of Any Multi-Drug Resistant Organisms: None Reported Past Surgical History: No Surgical Hx Reported Additional Past Surgical History / Comment(s): Pt states he has never had surgery, multi large volume paracentesis weekly Past Anesthesia/Blood Transfusion Reactions: Unable to Obtain Additional Past Anesthesia/Blood Transfusion Reaction / Comment(s): Pt states he has never had surgery. 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 Smoking Status: Former smoker Past Alcohol Use History: None Reported, Abuse Additional Past Alcohol Use History / Comment(s): Pt started smoking in 2000 and a pack' and quit 2021. Pt has hx of alcoholism. He states he quit drinking in Apr 2022 Past Drug Use History: None Reported - Past Family History Mother Family Medical History: Cancer Additional Family Medical History / Comment(s): Mother has colon cancer. Father History Unknown: Yes Additional Family Medical History / Comment(s): All pt knows about his father is that he is . Medications and Allergies Home Medications Medication Instructions Recorded Confirmed Type HYDROcodone/APAP 5-325MG [[place] 1 - 2 tab PO Q4HR PRN 05/06/23 11/11/23 History 5-325] Midodrine HCl [ProAmatine] 10 mg PO TID@0600,1300,2100 05/06/23 11/11/23 History Lactulose [Cephulac] 20 gm PO DAILY 30 Days #1000 ml 11/06/23 11/11/23 Rx Furosemide [Lasix] 40 mg PO DAILY@0600 11/11/23 11/11/23 History Omeprazole 20 mg PO DAILY@0600 11/11/23 11/11/23 History Ondansetron [Zofran] 4 mg PO Q6H PRN 11/11/23 11/11/23 History Spironolactone [Aldactone] 25 mg PO BID@0600,1300 11/11/23 11/11/23 History Allergies Allergy/AdvReac Type Severity Reaction Status Date / Time ibuprofen [From Motrin] Allergy Swelling Verified 11/11/23 14:22 Lips naproxen Allergy Swelling Verified 11/11/23 14:22 Lips Physical Exam Vitals: Vital Signs Temp Pulse Pulse Resp BP BP Pulse Ox 11/12/23 09:00 93 16 98/49 96 11/12/23 08:00 97.6 F 90 16 102/62 98 11/12/23 07:00 110/59 96 11/12/23 06:00 97.3 F L 113/54 11/12/23 05:00 113/54 11/12/23 04:00 77 11/12/23 03:00 79 11/12/23 02:55 97.3 F L 74 18 110/52 99 11/12/23 02:00 85 23 116/57 97 11/12/23 01:47 98.2 F 82 18 113/54 99 11/12/23 01:00 77 14 116/57 97 11/12/23 00:00 80 13 118/51 11/11/23 23:43 97.7 F 84 28 H 116/57 100 11/11/23 23:30 85 18 118/51 11/11/23 23:00 98.4 F 81 18 118/51 11/11/23 22:00 97.6 F 81 20 117/50 11/11/23 21:00 89 22 117/50 99 11/11/23 20:28 86 13 116/57 11/11/23 20:27 97.8 F 86 15 116/57 98 11/11/23 16:33 97.7 F 87 18 100/52 100 11/11/23 14:20 97.8 F 86 20 100/64 100 Intake and Output 11/11/23 11/12/23 11/12/23 22:59 06:59 14:59 Intake Total 50 75 Output Total 200 60 Balance -150 15 Intake: IV 50 75 Sodium Chloride 3%( 50 75 Hypertonic) 500 ml @ 25 mls/hr IV .Q20H ONE Rx#: [id number] Output: Urine 200 60 Other: Voiding Method Indwelling Catheter Indwelling Catheter Weight 74 kg Results - Lab Results Most recent lab results Calcium 7.6 mg/dL (8.4-10.2) L 11/12/23 00:16 Magnesium 2.1 mg/dL (1.6-2.3) 11/11/23 14:25 11/11/23 14:25 11/12/23 09:52 Assessment and Plan Plan: Assessment: 1. Acute kidney injury secondary to ATN secondary to hepatorenal syndrome. Creatinine 5.84 today. Creatinine 1.4 dated November 06, 2023. No hydronephrosis noted on kidney ultrasound. 2. Hyponatremia secondary to acute kidney injury. Also component of poor solute intake as well as hypervolemia with ascites. Sodium level worsened with isotonic fluid infusion and is now maintained on 3% saline. Last sodium 122. Urine sodium less than 20 and urine osmolality 319. TSH normal. 3. Alcohol induced liver cirrhosis. 4. Metabolic acidosis secondary to acute kidney injury as well as compensatory for underlying respiratory alkalosis from liver cirrhosis. 5. Hyperkalemia secondary to acute kidney injury, Aldactone and metabolic acidosis. Improved. 6. Ascites requiring large-volume paracentesis. Last paracentesis November 06, 2023 with 9.6 L drained. Plan: Hold 3% saline for now. Repeat sodium level again in 2 hours. 2 g sodium bicarb IV push now. Continue to monitor renal function and urine output. Continue to assess daily for need for renal replacement therapy. Avoid nephrotoxins. Hospice being considered. Prognosis poor. Thank you for the consultation. I will continue to follow the patient with you during his hospital stay.
--- NOTE | 2023-11-12 11:48 | P.CONS ---
History of Present Illness - Reason for Consult Consult date: 11/12/23 Stage IV liver failure Requesting physician: Poonam Frazier - Chief Complaint Abnormal labs - History of Present Illness 43-year-old male with a longstanding history of decompensated alcoholic liver cirrhosis with medical noncompliance who was recently hospitalized for inca rcerated umbilical hernia and underwent surgery with Dr. Hair on 10/16/2023. Patient required an extensive stay in the hospital following his procedure with multiple comorbidities and just discharged on 11/06/2023.. Apparently patient was at rehab and went forward paracentesis and was noted to have abnormal kidney function and was sent to the emergency department for further evaluation. He was noted to have acute kidney injury and hyponatremia. He was admitted to the ICU. He does get weekly paracentesis last paracentesis was 11/03/2023 with 9.6 L removed. He is maintained on Lasix 40 mg daily and Aldactone 25 mg twice a day at home as well as lactulose. Patient does not follow with anyone for his liver disease as he has been noncompliant and missed many appointments. Recommendations in the past have been to go to [facility] to follow with clinical neuropsychologist and discussed possible liver transplant list however again patient has been noncompliant in the past and has not followed up. Patient states he is not sure when he was admitted. He is without any complaints at this time. He states he is done with the hospitalizations and he is just tired and wants to give up and consider possible hospice. Review of Systems REVIEW OF SYSTEMS: CARDIOPULMONARY: No chest pain or shortness of breath. Gastrointestinal: No abdominal pain. No nausea or vomiting. No hematemesis, coffee-ground emesis. No rectal bleeding, or melena. Ascites. GENITOURINARY: No dysuria or hematuria. MUSCULOSKELETAL: Reports normal range of motion. SKIN: No rashes. No jaundice. ENDOCRINE: No chills, fevers. No excessive weight gain or loss. No polydipsia or polyuria. PSYCHIATRIC: Unremarkable. NEUROLOGY: No change in mental status. Denies dizziness, headache. ENT: Vision unremarkable. CONSTITUTIONAL: No recent weight loss. No fever, chills, night sweats. Past Medical History Past Medical History: Hyperlipidemia, Hypertension, Liver Disease, Pneumonia Additional Past Medical History / Comment(s): Alcoholism, past withdrawals with tremors/diaphoresis, elevated LFTs, alcoholic liver cirrhosis follows with Liver specialist based out of [place], ascities with lg volume paracentesis, severe se psis/aspiration pneumonia, occasional upper back pain. History of Any Multi-Drug Resistant Organisms: None Reported Past Surgical History: No Surgical Hx Reported Additional Past Surgical History / Comment(s): Pt states he has never had surgery, multi large volume paracentesis weekly Past Anesthesia/Blood Transfusion Reactions: Unable to Obtain Additional Past Anesthesia/Blood Transfusion Reaction / Comm: Pt states he has never had surgery. 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 Smoking Status: Former smoker Past Alcohol Use History: None Reported, Abuse Additional Past Alcohol Use History / Comment(s): Pt started smoking in 2000 and a pack' and quit 2021. Pt has hx of alcoholism. He states he quit drinking in Apr 2022 Past Drug Use History: None Reported - Past Family History Mother Family Medical History: Cancer Additional Family Medical History / Comment(s): Mother has colon cancer. Father History Unknown: Yes Additional Family Medical History / Comment(s): All pt knows about his father is that he is . Medications and Allergies Home Medications Medication Instructions Recorded Confirmed Type HYDROcodone/APAP 5-325MG [[place] 1 - 2 tab PO Q4HR PRN 05/06/23 11/11/23 History 5-325] Midodrine HCl [ProAmatine] 10 mg PO TID@0600,1300,2100 05/06/23 11/11/23 History Lactulose [Cephulac] 20 gm PO DAILY 30 Days #1000 ml 11/06/23 11/11/23 Rx Furosemide [Lasix] 40 mg PO DAILY@0600 11/11/23 11/11/23 History Omeprazole 20 mg PO DAILY@0600 11/11/23 11/11/23 History Ondansetron [Zofran] 4 mg PO Q6H PRN 11/11/23 11/11/23 History Spironolactone [Aldactone] 25 mg PO BID@0600,1300 11/11/23 11/11/23 History Allergies Allergy/AdvReac Type Severity Reaction Status Date / Time ibuprofen [From Motrin] Allergy Swelling Verified 11/11/23 14:22 Lips naproxen Allergy Swelling Verified 11/11/23 14:22 Lips Physical Exam Vitals: Vital Signs Temp Pulse Pulse Resp BP BP Pulse Ox 11/12/23 07:00 110/59 96 11/12/23 06:00 97.3 F L 113/54 11/12/23 05:00 113/54 11/12/23 04:00 77 11/12/23 03:00 79 11/12/23 02:55 97.3 F L 74 18 110/52 99 11/12/23 02:00 85 23 116/57 97 11/12/23 01:47 98.2 F 82 18 113/54 99 11/12/23 01:00 77 14 116/57 97 11/12/23 00:00 80 13 118/51 11/11/23 23:43 97.7 F 84 28 H 116/57 100 11/11/23 23:30 85 18 118/51 11/11/23 23:00 98.4 F 81 18 118/51 11/11/23 22:00 97.6 F 81 20 117/50 11/11/23 21:00 89 22 117/50 99 11/11/23 20:28 86 13 116/57 11/11/23 20:27 97.8 F 86 15 116/57 98 11/11/23 16:33 97.7 F 87 18 100/52 100 11/11/23 14:20 97.8 F 86 20 100/64 100 Intake and Output 11/11/23 11/12/23 11/12/23 22:59 06:59 14:59 Intake Total 50 Output Total 200 Balance -150 Intake: IV 50 Sodium Chloride 3%( 50 Hypertonic) 500 ml @ 25 mls/hr IV .Q20H ONE Rx#: [id number] Output: Urine 200 Other: Voiding Method Indwelling Catheter Weight 74 kg General appearance: The patient is alert, oriented, appears in no acute distress. HET: Head is normocephalic and atraumatic. Conjunctiva pink. Sclera anicteric. Neck: Supple without lymphadenopathy. Trachea midline. Heart: Regular. Lungs: Equal expansion, normal respiratory effort. Abdomen: Soft, nontender, nondistended, ascites. Surgical incision mid abdomen healed.. Skin: No rashes. No jaundice. Extremities: Normal skin color and turgor. Pedal edema. Neurological: No focal deficits. Alert and oriented x3. Results CBC & Chem 7: 11/11/23 14:25 11/12/23 09:52 Labs: Abnormal Lab Results - Last 24 Hours (Table) 11/11/23 11/11/23 11/11/23 Range/Units 14:25 14:25 14:25 WBC 10.9 H (3.8-10.6) k/uL RBC 3.37 L (4.30-5.90) m/uL Hgb 9.8 L (13.0-17.5) gm/dL Hct 30.8 L (39.0-53.0) % RDW 21.8 H (11.5-15.5) % Neutrophils # 8.2 H (1.3-7.7) k/uL PT 16.8 H (10.0-12.5) sec INR 1.6 H (<1.2) APTT 35.9 H (22.0-30.0) sec Sodium 120 L (137-145) mmol/L Potassium 5.6 H (3.5-5.1) mmol/L Chloride 92 L (98-107) mmol/L Carbon Dioxide 11 L (22-30) mmol/L BUN 93 H (9-20) mg/dL Creatinine 5.49 H (0.66-1.25) mg/dL Glucose (74-99) mg/dL POC Glucose (mg/dL) (70-110) mg/dL Calcium 8.0 L (8.4-10.2) mg/dL Total Bilirubin 1.9 H (0.2-1.3) mg/dL Albumin 3.0 L (3.5-5.0) g/dL Lipase 370 H (23-300) U/L Urine Protein (Negative) Urine Blood (Negative) Ur Leukocyte Esterase (Negative) Urine RBC (0-5) /hpf Urine WBC (0-5) /hpf Urine Bacteria (None) /hpf Hyaline Casts (0-2) /lpf Urine Mucus (None) /hpf Urine Yeast (Budding) (None) /hpf Urine Osmolality (400-1100) mOsm/kg Ur Random Sodium (40-220) mmol/L 11/11/23 11/11/23 11/11/23 Range/Units 14:26 14:26 14:26 WBC (3.8-10.6) k/uL RBC (4.30-5.90) m/uL Hgb (13.0-17.5) gm/dL Hct (39.0-53.0) % RDW (11.5-15.5) % Neutrophils # (1.3-7.7) k/uL PT (10.0-12.5) sec INR (<1.2) APTT (22.0-30.0) sec Sodium (137-145) mmol/L Potassium (3.5-5.1) mmol/L Chloride (98-107) mmol/L Carbon Dioxide (22-30) mmol/L BUN (9-20) mg/dL Creatinine (0.66-1.25) mg/dL Glucose (74-99) mg/dL POC Glucose (mg/dL) (70-110) mg/dL Calcium (8.4-10.2) mg/dL Total Bilirubin (0.2-1.3) mg/dL Albumin (3.5-5.0) g/dL Lipase (23-300) U/L Urine Protein Trace H (Negative) Urine Blood Large H (Negative) Ur Leukocyte Esterase Small H (Negative) Urine RBC >182 H (0-5) /hpf Urine WBC 11 H (0-5) /hpf Urine Bacteria Rare H (None) /hpf Hyaline Casts 11 H (0-2) /lpf Urine Mucus Rare H (None) /hpf Urine Yeast (Budding) Rare H (None) /hpf Urine Osmolality 319 L (400-1100) mOsm/kg Ur Random Sodium <20 L (40-220) mmol/L 11/11/23 11/11/23 11/12/23 Range/Units 19:50 21:47 00:16 WBC (3.8-10.6) k/uL RBC (4.30-5.90) m/uL Hgb (13.0-17.5) gm/dL Hct (39.0-53.0) % RDW (11.5-15.5) % Neutrophils # (1.3-7.7) k/uL PT (10.0-12.5) sec INR (<1.2) APTT (22.0-30.0) sec Sodium 119 L* 118 L* 119 L* (137-145) mmol/L Potassium 5.3 H (3.5-5.1) mmol/L Chloride 91 L 91 L (98-107) mmol/L Carbon Dioxide 15 L 14 L (22-30) mmol/L BUN 96 H 96 H (9-20) mg/dL Creatinine 5.65 H 5.84 H (0.66-1.25) mg/dL Glucose 126 H (74-99) mg/dL POC Glucose (mg/dL) (70-110) mg/dL Calcium 7.8 L 7.6 L (8.4-10.2) mg/dL Total Bilirubin (0.2-1.3) mg/dL Albumin (3.5-5.0) g/dL Lipase (23-300) U/L Urine Protein (Negative) Urine Blood (Negative) Ur Leukocyte Esterase (Negative) Urine RBC (0-5) /hpf Urine WBC (0-5) /hpf Urine Bacteria (None) /hpf Hyaline Casts (0-2) /lpf Urine Mucus (None) /hpf Urine Yeast (Budding) (None) /hpf Urine Osmolality (400-1100) mOsm/kg Ur Random Sodium (40-220) mmol/L 11/12/23 11/12/23 Range/Units 03:42 05:56 WBC (3.8-10.6) k/uL RBC (4.30-5.90) m/uL Hgb (13.0-17.5) gm/dL Hct (39.0-53.0) % RDW (11.5-15.5) % Neutrophils # (1.3-7.7) k/uL PT (10.0-12.5) sec INR (<1.2) APTT (22.0-30.0) sec Sodium 118 L* (137-145) mmol/L Potassium (3.5-5.1) mmol/L Chloride (98-107) mmol/L Carbon Dioxide (22-30) mmol/L BUN (9-20) mg/dL Creatinine (0.66-1.25) mg/dL Glucose (74-99) mg/dL POC Glucose (mg/dL) 136 H (70-110) mg/dL Calcium (8.4-10.2) mg/dL Total Bilirubin (0.2-1.3) mg/dL Albumin (3.5-5.0) g/dL Lipase (23-300) U/L Urine Protein (Negative) Urine Blood (Negative) Ur Leukocyte Esterase (Negative) Urine RBC (0-5) /hpf Urine WBC (0-5) /hpf Urine Bacteria (None) /hpf Hyaline Casts (0-2) /lpf Urine Mucus (None) /hpf Urine Yeast (Budding) (None) /hpf Urine Osmolality (400-1100) mOsm/kg Ur Random Sodium (40-220) mmol/L Comments: Ultrasound kidney/renal and bladder reports no evidence for obstructive uropathy. Epps catheter in place. Small abdominal ascites. Assessment and Plan (1) Decompensation of cirrhosis of liver Narrative/Plan: 43-year-old male with multiple hospitalizations for decompensated alcohol cirrhosis of the liver and medical noncompliance. Patient with advanced liver cirrhosis presenting with acute kidney injury and hyponatremia. Requires paracentesis weekly. Does not follow with any gastroenterology because patient has been noncompliant with appointments and recommendations. Patient denies drinking in over a year. Currently admitted for hyponatremia and acute kidney injury. Continue with recommendations from nephrology. Hold paracentesis until patient more stabilized. Patient considering hospice care which is appropriate Current Visit: No Status: Acute Code(s): K72.90 - HEPATIC FAILURE, UNSPECIFIED WITHOUT COMA; K74.60 - UNSPECIFIED CIRRHOSIS OF LIVER SNOMED Code (s): 363605982 (2) Acute kidney failure Current Visit: Yes Status: Acute Code(s): N17.9 - ACUTE KIDNEY FAILURE, UNSPECIFIED SNOMED Code(s): 88002205 (3) Hyponatremia Current Visit: Yes Status: Acute Code(s): E87.1 - HYPO-OSMOLALITY AND HYPONATREMIA SNOMED Code(s): 51115780 (4) Alcoholic cirrhosis of liver with ascites Current Visit: No Status: Acute Code(s): K70.31 - ALCOHOLIC CIRRHOSIS OF LIVER WITH ASCITES SNOMED Code(s): 176462829 (5) Chronic anemia Current Visit: No Status: Acute Code(s): D64.9 - ANEMIA, UNSPECIFIED SNOMED Code(s): 365809621 (6) History of alcohol abuse Current Visit: No Status: Acute Code(s): F10.11 - ALCOHOL ABUSE, IN REMISSION SNOMED Code(s): 922266728 (7) Hyperammonemia Current Visit: No Status: Acute Code(s): E72.20 - DISORDER OF UREA CYCLE METABOLISM, UNSPECIFIED SNOMED Code(s): 7359175 Plan: 1. Continue symptomatic and supportive care 2. Diuretics per recommendations from nephrology 3. Renal diet 4. Paracentesis when patient stabilizes 5. Daily CBC, CMP 6. Increase lactulose to twice daily 6. Patient talking about hospice, discussed with medical team to consider possible hospice consult Thank you for this consultation, we will continue to follow. Dr. Reinaldo Negron I agree with the dictator's note, documented as a scribe by Zuleyma Arriola.
--- NOTE | 2023-11-12 11:51 | P.CNPUL ---
History of Present Illness Consult date: 11/12/23 Requesting physician: Cholo Aldridge Chief complaint: icu management History of present illness: Patient is a 43-year-old male with past medical history of incarcerated umbilical hernia requiring hospitalization and stage IV liver failure presenting to the ED on 11/11/2023 for with generalized weakness. Today he was seen in the ICU. Patient came in yesterday to the hospital for his weekly paracentesis but it was canceled because of the patient's severe hyponatremia with sodium of 119. He is currently on hypertonic saline at 25 ml/hour. Patient endorses sharp abdominal pain at the site of insertion of the repair and states the pain is 9 out of 10 and also has a pressure sore stage II. abdominal ultrasound shows a small amount of abdominal ascites and a Epps catheter in place. Today her procalcitonin has been ordered. Labs show sodium of 122, potassium 5, chloride 91, BUN 96, and creatinine 5.84. Patient denies fever, chills, cough, shortness of breath or chest pain. Nephrology has been consulted. Review of Systems REVIEW OF SYSTEMS: CONSTITUTIONAL: Denies any recent significant weight loss or weight gain. EYES: Denies change in vision. EARS, NOSE, MOUTH, THROAT: Denies headaches, denies sore throat. CARDIOVASCULAR: Denies chest pain, palpitations or syncopal episodes. RESPIRATORY: Denies shortness of breath, cough, congestion or hemoptysis. GASTROINTESTINAL: Denies change in appetite, abdominal pain 9/10 GENITOURINARY: Denies hematuria, denies infections. MUSKULOSKELETAL:Denies any pain, denies swelling INTEGUMENTARY: Denies rash, denies eczema. NEUROLOGICAL: Denies recent memory loss, no recent seizure activity. PSYCHIATRIC: Denies anxiety, denies depression. HEMATOLOGIC/LYMPHATIC: Denies anemia, denies enlarged lymph nodes. Past Medical History Past Medical History: Hyperlipidemia, Hypertension, Liver Disease, Pneumonia Additional Past Medical History / Comment(s): Alcoholism, past withdrawals with tremors/diaphoresis, elevated LFTs, alcoholic liver cirrhosis follows with Liver specialist based out of [place], ascities with lg volume paracentesis, severe sepsis/aspiration pneumonia, occasional upper back pain. History of Any Multi-Drug Resistant Organisms: None Reported Past Surgical History: No Surgical Hx Reported Additional Past Surgical History / Comment(s): Pt states he has never had surgery, multi large volume paracentesis weekly Past Anesthesia/Blood Transfusion Reactions: Unable to Obtain Additional Past Anesthesia/Blood Transfusion Reaction / Comment(s): Pt states he has never had surgery. 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 Smoking Status: Former smoker Past Alcohol Use History: None Reported, Abuse Additional Past Alcohol Use History / Comment(s): Pt started smoking in 2000 and a pack' and quit 2021. Pt has hx of alcoholism. He states he quit drinking in Apr 2022 Past Drug Use History: None Reported - Past Family History Mother Family Medical History: Cancer Additional Family Medical History / Comment(s): Mother has colon cancer. Father History Unknown: Yes Additional Family Medical History / Comment(s): All pt knows about his father is that he is . Medications and Allergies Home Medications Medication Instructions Recorded Confirmed Type HYDROcodone/APAP 5-325MG [[place] 1 - 2 tab PO Q4HR PRN 05/06/23 11/11/23 History 5-325] Midodrine HCl [ProAmatine] 10 mg PO TID@0600,1300,2100 05/06/23 11/11/23 History Lactulose [Cephulac] 20 gm PO DAILY 30 Days #1000 ml 11/06/23 11/11/23 Rx Furosemide [Lasix] 40 mg PO DAILY@0600 11/11/23 11/11/23 History Omeprazole 20 mg PO DAILY@0600 11/11/23 11/11/23 History Ondansetron [Zofran] 4 mg PO Q6H PRN 11/11/23 11/11/23 History Spironolactone [Aldactone] 25 mg PO BID@0600,1300 11/11/23 11/11/23 History Allergies Allergy/AdvReac Type Severity Reaction Status Date / Time ibuprofen [From Motrin] Allergy Swelling Verified 11/11/23 14:22 Lips naproxen Allergy Swelling Verified 11/11/23 14:22 Lips Physical Exam Vitals: Vital Signs Temp Pulse Pulse Resp BP BP Pulse Ox 11/12/23 09:00 93 16 98/49 96 11/12/23 08:00 97.6 F 90 16 102/62 98 07/18/24 07:00 110/59 96 07/18/24 06:00 97.3 F L 113/54 11/12/23 05:00 113/54 11/12/23 04:00 77 11/12/23 03:00 79 11/12/23 02:55 97.3 F L 74 18 110/52 99 11/12/23 02:00 85 23 116/57 97 11/12/23 01:47 98.2 F 82 18 113/54 99 11/12/23 01:00 77 14 116/57 97 11/12/23 00:00 80 13 118/51 11/11/23 23:43 97.7 F 84 28 H 116/57 100 11/11/23 23:30 85 18 118/51 11/11/23 23:00 98.4 F 81 18 118/51 11/11/23 22:00 97.6 F 81 20 117/50 11/11/23 21:00 89 22 117/50 99 11/11/23 20:28 86 13 116/57 11/11/23 20:27 97.8 F 86 15 116/57 98 11/11/23 16:33 97.7 F 87 18 100/52 100 11/11/23 14:20 97.8 F 86 20 100/64 100 Intake and Output 11/11/23 11/12/23 11/12/23 22:59 06:59 14:59 Intake Total 50 75 Output Total 200 60 Balance -150 15 Intake: IV 50 75 Sodium Chloride 3%( 50 75 Hypertonic) 500 ml @ 25 mls/hr IV .Q20H ONE Rx#: [id number] Output: Urine 200 60 Other: Voiding Method Indwelling Catheter Indwelling Catheter Weight 74 kg General: Ill-appearing male Head: atraumatic, normocephalic, symmetric Eyes: EOMI, no lid lag, pupils equal round reactive to light ENT: Nose and ears atraumatic Neck: No cervical lymphadenopathy, trachea midline, supple Mouth: no lip lesion, mucus membranes moist Cardiovascular: S1S2 reg, no murmur, positive dorsalis pedis pulse bilateral, no edema Lungs: No rhonchi, no rales, no accessory muscle use Abdominal: Mildly distended with tenderness at the well healing surgical incision which is intact with no surrounding erythema, no guarding noted Ext: muscle strength 4 out of 5 in all 4 extremities grossly, no gross muscle atrophy, no contractures Neuro: CN II-XI grossly intact, no gross focal neuro deficits Psych: Alert, oriented, appropriate affect Results - Laboratory Findings CBC and BMP: 11/11/23 14:25 11/12/23 09:52 PT/INR, D-dimer PT 16.8 sec (10.0-12.5) H 11/11/23 14:25 INR 1.6 (<1.2) H 11/11/23 14:25 Abnormal lab findings: Abnormal Labs 11/11/23 11/11/23 11/11/23 14:25 14:25 14:25 WBC 10.9 H RBC 3.37 L Hgb 9.8 L Hct 30.8 L RDW 21.8 H Neutrophils # 8.2 H PT 16.8 H INR 1.6 H APTT 35.9 H Sodium 120 L Potassium 5.6 H Chloride 92 L Carbon Dioxide 11 L BUN 93 H Creatinine 5.49 H Glucose POC Glucose (mg/dL) Calcium 8.0 L Total Bilirubin 1.9 H Ammonia Albumin 3.0 L Lipase 370 H Urine Protein Urine Blood Ur Leukocyte Esterase Urine RBC Urine WBC Urine Bacteria Hyaline Casts Urine Mucus Urine Yeast (Budding) Urine Osmolality Ur Random Sodium 11/11/23 11/11/23 11/11/23 14:26 14:26 14:26 WBC RBC Hgb Hct RDW Neutrophils # PT INR APTT Sodium Potassium Chloride Carbon Dioxide BUN Creatinine Glucose POC Glucose (mg/dL) Calcium Total Bilirubin Ammonia Albumin Lipase Urine Protein Trace H Urine Blood Large H Ur Leukocyte Esterase Small H Urine RBC >182 H Urine WBC 11 H Urine Bacteria Rare H Hyaline Casts 11 H Urine Mucus Rare H Urine Yeast (Budding) Rare H Urine Osmolality 319 L Ur Random Sodium <20 L 11/11/23 11/11/23 11/12/23 19:50 21:47 00:16 WBC RBC Hgb Hct RDW Neutrophils # PT INR APTT Sodium 119 L* 118 L* 119 L* Potassium 5.3 H Chloride 91 L 91 L Carbon Dioxide 15 L 14 L BUN 96 H 96 H Creatinine 5.65 H 5.84 H Glucose 126 H POC Glucose (mg/dL) Calcium 7.8 L 7.6 L Total Bilirubin Ammonia Albumin Lipase Urine Protein Urine Blood Ur Leukocyte Esterase Urine RBC Urine WBC Urine Bacteria Hyaline Casts Urine Mucus Urine Yeast (Budding) Urine Osmolality Ur Random Sodium 11/12/23 11/12/23 11/12/23 03:42 05:56 08:04 WBC RBC Hgb Hct RDW Neutrophils # PT INR APTT Sodium 118 L* 119 L* Potassium Chloride Carbon Dioxide BUN Creatinine Glucose POC Glucose (mg/dL) 136 H Calcium Total Bilirubin Ammonia Albumin Lipase Urine Protein Urine Blood Ur Leukocyte Esterase Urine RBC Urine WBC Urine Bacteria Hyaline Casts Urine Mucus Urine Yeast (Budding) Urine Osmolality Ur Random Sodium 11/12/23 11/12/23 08:04 09:52 WBC RBC Hgb Hct RDW Neutrophils # PT INR APTT Sodium 122 L Potassium Chloride Carbon Dioxide BUN Creatinine Glucose POC Glucose (mg/dL) Calcium Total Bilirubin Ammonia 56 H Albumin Lipase Urine Protein Urine Blood Ur Leukocyte Esterase Urine RBC Urine WBC Urine Bacteria Hyaline Casts Urine Mucus Urine Yeast (Budding) Urine Osmolality Ur Random Sodium Assessment and Plan Assessment: Acute kidney injury secondary to ATN secondary to hepatorenal syndrome. Creatinine 5.84 today. Hyponatremia secondary to acute kidney injury. Last sodium 122. Alcohol induced liver cirrhosis. Ascites requiring large-volume paracentesis. Repaired incarcerated umbilical hernia Plan: Procalcitonin ordered today. Nephrology saw the patient and recommended: Hold 3% saline for now. Repeat sodium level again in 2 hours. 2 g sodium bicarb IV push now. Continue to assess daily for need for renal replacement therapy. Avoid nephrotoxins. Continue to monitor renal function and urine output. Prognosis is guarded. Critical care time is 35 minutes. Time with Patient: Greater than 30
[2023-11-12] MEDS: SODIUM BICARB 8.4% 50 ML SYR (1 MEQ/ML) IV STA (12:24)
--- NOTE | 2023-11-12 14:52 | P.PN ---
Subjective Progress Note Date: 11/12/23 Hospital Course: 43-year-old male with past medical history of stage IV liver failure managed w ith weekly paracentesis (last paracentesis on 11/09/2023 - 9600 cc drained), hypertension and hyperlipidemia presented to ER with complaint of generalized weakness that started 1 to 2 days ago. Patient is undergoing rehabilitation at [facility] for status post incarcerated umbilical hernia repair done on 10/16/2023 at [facility] by Dr. Vel Hair. EKG done in the ER shows normal sinus rhythm with heart rate of 84 bpm, SC interval 139 ms. Normal R wave progression. No QTc prolongation noted. Abdominal ultrasound shows no evidence of obstructive uropathy with gonzalez catheter is in place and small amount of abdominal ascites is noted. Laboratory evaluation shows sodium 119 (baseline 125), WBC 10.9, hemoglobin 9.8 (at baseline), hematocrit 30.8, platelet count 238, PT 16.8, INR 1.6 (baseline 1.5), PTT 36.9, , potassium 5.3, chloride 91, bicarb 15, anion gap 13, BUN 96, creatinine 4.65, EGFR 11, glucose 126, calcium 7.8, troponin 0.012, albumin 3.0, lipase 370. Signs within normal limits. Patient admitted to medical ICU for hyponatremia, on 3% saline. Nephrology, pulmonology consulted. Subjective: Seen and examined at bedside. No acute events overnight. Complaining of severe abdominal pain. He claims that he wants to give up. Would like to talk to hospice. Pertinent positives and negatives as discussed above, a complete review of systems was performed and all other systems are negative. Vitals Signs Reviewed. General: Nontoxic, no distress, chronically ill-appearing Derm: Warm, dry, multiple lower extremity excoriations Head: Atraumatic, normocephalic, symmetric Eyes: EOMI, no lid lag, icteric sclera Mouth: No lip lesion, mucus membranes moist Cardiovascular: S1S2 reg, no murmur Lungs: CTA bilateral, no rhonchi, no rales, no accessory muscle use Abdominal: Soft, diffusely tender to palpation,, slightly distended no guarding, no appreciable organomegaly Ext: Atrophic muscles, no edema, no contractures Neuro: CN II-XI grossly intact, no focal neuro deficits Psych: Alert, oriented, appropriate affect Data Reviewed Today: Pertinent Labs: Sodium 118, bicarb 14, creatinine 5.84, ammonia 56, TSH 2.570, blood sugars range between 96-1 36 Imaging: No new imaging Assessment and Plan: Severe hyponatremia, likely hypovolemic Acute kidney injury, likely ATN Hepatorenal syndrome Alcoholic cirrhosis Uremia, metabolic acidosis Hyperkalemia, resolved Recent incarcerated umbilical hernia, s/p surgery -Nephrology note reviewed, holding 3% saline, sodium level slowly increased, continue to monitor -status post further sodium bicarb IV -Hospice consulted -Continue to monitor urine output strictly -If patient does not want to go towards hospice order, consider albumin, octreotide, and midodrine -Will reevaluate for repeat paracentesis -Pulmonology note reviewed, continue current management -GI note reviewed, agree with hospice consult -Ceftriaxone 1 g IV every 24 hours for SBP prophylaxis, continue lactulose 20 twice daily, titrate to 2-3 bowel movements a day -Avoid narcotics, and NSAIDs -Hold Aldactone, Lasix , Continue omeprazole 20 mg daily DVT ppx: SCDs Code status: Full code Anticipated discharge place: Pending clinical course Anticipated discharge time: Pending clinical course Objective - Vital Signs Vital signs: Vital Signs Temp 97.8 F 11/12/23 12:00 Pulse 97 11/12/23 12:00 Resp 18 11/12/23 12:00 BP 99/55 11/12/23 12:00 Pulse Ox 96 11/12/23 12:00 FiO2 Intake & Output 11/11/23 11/12/23 11/12/23 18:59 06:59 18:59 Intake Total 50 125 Output Total 200 150 Balance -150 -25 Weight 78.925 kg 74 kg Intake: IV 50 125 Sodium Chloride 3%( 50 125 Hypertonic) 500 ml @ 25 mls/hr IV .Q20H ONE Rx#: [id number] Output: Urine 200 150 Other: Voiding Method Indwelling Catheter Indwelling Catheter - Labs CBC & Chem 7: 11/11/23 14:25 11/12/23 13:54 Labs: Abnormal Lab Results - Last 24 Hours (Table) 11/11/23 11/11/23 11/11/23 Range/Units 14:25 14:25 14:25 WBC 10.9 H (3.8-10.6) k/uL RBC 3.37 L (4.30-5.90) m/uL Hgb 9.8 L (13.0-17.5) gm/dL Hct 30.8 L (39.0-53.0) % RDW 21.8 H (11.5-15.5) % Neutrophils # 8.2 H (1.3-7.7) k/uL PT 16.8 H (10.0-12.5) sec INR 1.6 H (<1.2) APTT 35.9 H (22.0-30.0) sec Sodium 120 L (137-145) mmol/L Potassium 5.6 H (3.5-5.1) mmol/L Chloride 92 L (98-107) mmol/L Carbon Dioxide 11 L (22-30) mmol/L BUN 93 H (9-20) mg/dL Creatinine 5.49 H (0.66-1.25) mg/dL Glucose (74-99) mg/dL POC Glucose (mg/dL) (70-110) mg/dL Calcium 8.0 L (8.4-10.2) mg/dL Total Bilirubin 1.9 H (0.2-1.3) mg/dL Ammonia (<30) umol/L Albumin 3.0 L (3.5-5.0) g/dL Lipase 370 H (23-300) U/L Urine Protein (Negative) Urine Blood (Negative) Ur Leukocyte Esterase (Negative) Urine RBC (0-5) /hpf Urine WBC (0-5) /hpf Urine Bacteria (None) /hpf Hyaline Casts (0-2) /lpf Urine Mucus (None) /hpf Urine Yeast (Budding) (None) /hpf Urine Osmolality (400-1100) mOsm/kg Ur Random Sodium (40-220) mmol/L 11/11/23 11/11/23 11/11/23 Range/Units 14:26 14:26 14:26 WBC (3.8-10.6) k/uL RBC (4.30-5.90) m/uL Hgb (13.0-17.5) gm/dL Hct (39.0-53.0) % RDW (11.5-15.5) % Neutrophils # (1.3-7.7) k/uL PT (10.0-12.5) sec INR (<1.2) APTT (22.0-30.0) sec Sodium (137-145) mmol/L Potassium (3.5-5.1) mmol/L Chloride (98-107) mmol/L Carbon Dioxide (22-30) mmol/L BUN (9-20) mg/dL Creatinine (0.66-1.25) mg/dL Glucose (74-99) mg/dL POC Glucose (mg/dL) (70-110) mg/dL Calcium (8.4-10.2) mg/dL Total Bilirubin (0.2-1.3) mg/dL Ammonia (<30) umol/L Albumin (3.5-5.0) g/dL Lipase (23-300) U/L Urine Protein Trace H (Negative) Urine Blood Large H (Negative) Ur Leukocyte Esterase Small H (Negative) Urine RBC >182 H (0-5) /hpf Urine WBC 11 H (0-5) /hpf Urine Bacteria Rare H (None) /hpf Hyaline Casts 11 H (0-2) /lpf Urine Mucus Rare H (None) /hpf Urine Yeast (Budding) Rare H (None) /hpf Urine Osmolality 319 L (400-1100) mOsm/kg Ur Random Sodium <20 L (40-220) mmol/L 11/11/23 11/11/23 11/12/23 Range/Units 19:50 21:47 00:16 WBC (3.8-10.6) k/uL RBC (4.30-5.90) m/uL Hgb (13.0-17.5) gm/dL Hct (39.0-53.0) % RDW (11.5-15.5) % Neutrophils # (1.3-7.7) k/uL PT (10.0-12.5) sec INR (<1.2) APTT (22.0-30.0) sec Sodium 119 L* 118 L* 119 L* (137-145) mmol/L Potassium 5.3 H (3.5-5.1) mmol/L Chloride 91 L 91 L (98-107) mmol/L Carbon Dioxide 15 L 14 L (22-30) mmol/L BUN 96 H 96 H (9-20) mg/dL Creatinine 5.65 H 5.84 H (0.66-1.25) mg/dL Glucose 126 H (74-99) mg/dL POC Glucose (mg/dL) (70-110) mg/dL Calcium 7.8 L 7.6 L (8.4-10.2) mg/dL Total Bilirubin (0.2-1.3) mg/dL Ammonia (<30) umol/L Albumin (3.5-5.0) g/dL Lipase (23-300) U/L Urine Protein (Negative) Urine Blood (Negative) Ur Leukocyte Esterase (Negative) Urine RBC (0-5) /hpf Urine WBC (0-5) /hpf Urine Bacteria (None) /hpf Hyaline Casts (0-2) /lpf Urine Mucus (None) /hpf Urine Yeast (Budding) (None) /hpf Urine Osmolality (400-1100) mOsm/kg Ur Random Sodium (40-220) mmol/L 11/12/23 11/12/23 11/12/23 Range/Units 03:42 05:56 08:04 WBC (3.8-10.6) k/uL RBC (4.30-5.90) m/uL Hgb (13.0-17.5) gm/dL Hct (39.0-53.0) % RDW (11.5-15.5) % Neutrophils # (1.3-7.7) k/uL PT (10.0-12.5) sec INR (<1.2) APTT (22.0-30.0) sec Sodium 118 L* 119 L* (137-145) mmol/L Potassium (3.5-5.1) mmol/L Chloride (98-107) mmol/L Carbon Dioxide (22-30) mmol/L BUN (9-20) mg/dL Creatinine (0.66-1.25) mg/dL Glucose (74-99) mg/dL POC Glucose (mg/dL) 136 H (70-110) mg/dL Calcium (8.4-10.2) mg/dL Total Bilirubin (0.2-1.3) mg/dL Ammonia (<30) umol/L Albumin (3.5-5.0) g/dL Lipase (23-300) U/L Urine Protein (Negative) Urine Blood (Negative) Ur Leukocyte Esterase (Negative) Urine RBC (0-5) /hpf Urine WBC (0-5) /hpf Urine Bacteria (None) /hpf Hyaline Casts (0-2) /lpf Urine Mucus (None) /hpf Urine Yeast (Budding) (None) /hpf Urine Osmolality (400-1100) mOsm/kg Ur Random Sodium (40-220) mmol/L 11/12/23 11/12/23 11/12/23 Range/Units 08:04 09:52 11:39 WBC (3.8-10.6) k/uL RBC (4.30-5.90) m/uL Hgb (13.0-17.5) gm/dL Hct (39.0-53.0) % RDW (11.5-15.5) % Neutrophils # (1.3-7.7) k/uL PT (10.0-12.5) sec INR (<1.2) APTT (22.0-30.0) sec Sodium 122 L 123 L (137-145) mmol/L Potassium (3.5-5.1) mmol/L Chloride (98-107) mmol/L Carbon Dioxide (22-30) mmol/L BUN (9-20) mg/dL Creatinine (0.66-1.25) mg/dL Glucose (74-99) mg/dL POC Glucose (mg/dL) (70-110) mg/dL Calcium (8.4-10.2) mg/dL Total Bilirubin (0.2-1.3) mg/dL Ammonia 56 H (<30) umol/L Albumin (3.5-5.0) g/dL Lipase (23-300) U/L Urine Protein (Negative) Urine Blood (Negative) Ur Leukocyte Esterase (Negative) Urine RBC (0-5) /hpf Urine WBC (0-5) /hpf Urine Bacteria (None) /hpf Hyaline Casts (0-2) /lpf Urine Mucus (None) /hpf Urine Yeast (Budding) (None) /hpf Urine Osmolality (400-1100) mOsm/kg Ur Random Sodium (40-220) mmol/L 11/12/23 Range/Units 13:54 WBC (3.8-10.6) k/uL RBC (4.30-5.90) m/uL Hgb (13.0-17.5) gm/dL Hct (39.0-53.0) % RDW (11.5-15.5) % Neutrophils # (1.3-7.7) k/uL PT (10.0-12.5) sec INR (<1.2) APTT (22.0-30.0) sec Sodium 125 L (137-145) mmol/L Potassium (3.5-5.1) mmol/L Chloride (98-107) mmol/L Carbon Dioxide (22-30) mmol/L BUN (9-20) mg/dL Creatinine (0.66-1.25) mg/dL Glucose (74-99) mg/dL POC Glucose (mg/dL) (70-110) mg/dL Calcium (8.4-10.2) mg/dL Total Bilirubin (0.2-1.3) mg/dL Ammonia (<30) umol/L Albumin (3.5-5.0) g/dL Lipase (23-300) U/L Urine Protein (Negative) Urine Blood (Negative) Ur Leukocyte Esterase (Negative) Urine RBC (0-5) /hpf Urine WBC (0-5) /hpf Urine Bacteria (None) /hpf Hyaline Casts (0-2) /lpf Urine Mucus (None) /hpf Urine Yeast (Budding) (None) /hpf Urine Osmolality (400-1100) mOsm/kg Ur Random Sodium (40-220) mmol/L
[2023-11-12] MEDS: HYDROcodone/APAP 5-325MG 1 EACH TAB PO STA (16:03)
[2023-11-12] MEDS: MORPHINE SULFATE 2 MG/ML SYRINGE IVP STA (21:27)
[2023-11-12] MEDS: SODIUM CHLORIDE TAB 1 GM TAB PO STA (22:43)
[2023-11-13] MEDS: PANTOPRAZOLE 40 MG TABLET PO SCH (06:10)
[2023-11-13 08:33] LABS: BUN/Creat Ratio 17.02 Ratio (12.00-20.00); Blood Urea Nitrogen 98.7 mg/dL (9.0-27.0); Calcium 7.9 mg/dL (8.7-10.3); Carbon Dioxide 19.1 mmol/L (21.6-31.8); Chloride 87 mmol/L (96-109); Glucose 106 mg/dL (70-110); Magnesium 2.3 mg/dL (1.5-2.4); Potassium 4.8 mmol/L (3.5-5.5); Sodium 123 mmol/L (135-145)
[2023-11-13] MEDS: MIDODRINE 5 MG TAB PO STA (08:51)
--- NOTE | 2023-11-13 11:35 | P.PN ---
Subjective Progress Note Date: 11/13/23 Principal diagnosis: ascites, decompensated cirrhosis of the liver 11/13/2023 Patient seen and examined today as a follow. No acute changes. He was transferred out of ICU to the medical floor. Patient has requested hospice information meeting however is waiting for his significant other. Sodium improving, today 123. Objective - Vital Signs Vital signs: Vital Signs Temp 98 F 11/13/23 07:39 Pulse 99 11/13/23 07:39 Resp 18 11/13/23 07:39 BP 96/56 11/13/23 07:39 Pulse Ox 100 11/13/23 07:39 FiO2 Intake & Output 11/12/23 11/13/23 11/13/23 18:59 06:59 18:59 Intake Total 125 Output Total 285 650 Balance -160 -650 Intake: IV 125 Sodium Chloride 3%( 125 Hypertonic) 500 ml @ 25 mls/hr IV .Q20H ONE Rx#: [id number] Output: Urine 285 650 Other: Voiding Method Indwelling Catheter Indwelling Catheter # Bowel Movements 1 1 - Exam General appearance: The patient is alert, oriented, appears in no acute distress. HET: Head is normocephalic and atraumatic. Conjunctiva pink. Sclera anicteric. Neck: Supple without lymphadenopathy. Abdomen: Soft, nontender, nondistended. ascites. No guarding or rigidity. Extremities: Normal skin color and turgor. pedal edema. Skin: No rashes, no jaundice Neurological: No focal deficits. Alert and oriented. - Labs CBC & Chem 7: 11/11/23 14:25 11/13/23 04:02 Labs: Abnormal Lab Results - Last 24 Hours (Table) 11/12/23 11/12/23 11/12/23 Range/Units 08:04 08:04 08:04 Sodium 119 L* (137-145) mmol/L Ammonia 56 H (<30) umol/L Procalcitonin 3.68 H (0.02-0.09) ng/mL 11/12/23 11/12/23 11/12/23 Range/Units 09:52 11:39 13:54 Sodium 122 L 123 L 125 L (137-145) mmol/L Ammonia (<30) umol/L Procalcitonin (0.02-0.09) ng/mL 11/12/23 11/12/23 Range/Units 16:00 19:54 Sodium 124 L 122 L (137-145) mmol/L Ammonia (<30) umol/L Procalcitonin (0.02-0.09) ng/mL Microbiology - Last 24 Hours (Table) 11/11/23 14:26 Urine Culture - Final Urine,Voided Assessment and Plan (1) Decompensation of cirrhosis of liver Narrative/Plan: 43-year-old male with multiple hospitalizations for decompensated alcohol cirrhosis of the liver and medical noncompliance. Patient with advanced liver cirrhosis presenting with acute kidney injury and hyponatremia. Requires paracentesis weekly. Does not follow with any gastroenterology because patient has been noncompliant with appointments and recommendations. Patient denies drinking in over a year. Currently admitted for hyponatremia and acute kidney injury. Continue with recommendations from nephrology. Hold paracentesis until patient more stabilized. Patient considering hospice care which is appropriate Current Visit: No Status: Acute Code(s): K72.90 - HEPATIC FAILURE, UNSPECIFIED WITHOUT COMA; K74.60 - UNSPECIFIED CIRRHOSIS OF LIVER SNOMED Cod e(s): 103327192 (2) Acute kidney failure Current Visit: Yes Status: Acute Code(s): N17.9 - ACUTE KIDNEY FAILURE, UNSPECIFIED SNOMED Code(s): 00423366 (3) Hyponatremia Current Visit: Yes Status: Acute Code(s): E87.1 - HYPO-OSMOLALITY AND HYPONATREMIA SNOMED Code(s): 24381432 (4) Alcoholic cirrhosis of liver with ascites Current Visit: No Status: Acute Code(s): K70.31 - ALCOHOLIC CIRRHOSIS OF LIVER WITH ASCITES SNOMED Code(s): 799356349 (5) Chronic anemia Current Visit: No Status: Acute Code(s): D64.9 - ANEMIA, UNSPECIFIED SNOMED Code(s): 285272476 (6) History of alcohol abuse Current Visit: No Status: Acute Code(s): F10.11 - ALCOHOL ABUSE, IN REMISSION SNOMED Code(s): 839948653 (7) Hyperammonemia Current Visit: No Status: Acute Code(s): E72.20 - DISORDER OF UREA CYCLE METABOLISM, UNSPECIFIED SNOMED Code(s): 0883791 Plan: 1. Continue symptomatic and supportive care 2. Diuretics per recommendations from nephrology 3. Renal diet 4. Therapeutic Paracentesis when patient stabilizes 5. Increase lactulose to twice daily 6. Hospice consult placed, patient interested in hospice care Thank you for allowing us to participate in the care of the patient, the GI service will sign off, gastroenterology will not be available at the hospital this weekend and through next week. If further evaluation by gastroenterology is required the patient will need transfer as per the primary team's discretion. Dr. Reinaldo Negron I agree with the dictator's note, documented as a scribe by Zuleyma Arriola.
--- NOTE | 2023-11-13 11:44 | P.PN ---
Subjective patient is seen in follow for acute kidney injury and hyponatremia. Sodium level CXXIII this morning. Creatinine 5.8. Nonoliguric. Oral intake poor. considering hospice. Vital signs are stable. General: no acute distress. HEENT: Head exam is unremarkable. LUNGS: notable rhonchi or wheezes. HEART: Rate and Rhythm are regular. ABDOMEN: nontender, distention noted. EXTREMITITES: No edema. Objective - Vital Signs Vital signs: Vital Signs Temp 98 F 11/13/23 07:39 Pulse 99 11/13/23 07:39 Resp 18 11/13/23 07:39 BP 96/56 11/13/23 07:39 Pulse Ox 100 11/13/23 07:39 FiO2 Intake & Output 11/12/23 11/13/23 11/13/23 18:59 06:59 18:59 Intake Total 125 Output Total 285 650 Balance -160 -650 Intake: IV 125 Sodium Chloride 3%( 125 Hypertonic) 500 ml @ 25 mls/hr IV .Q20H ONE Rx#: [id number] Output: Urine 285 650 Other: Voiding Method Indwelling Catheter Indwelling Catheter Indwelling Catheter # Bowel Movements 1 1 - Labs CBC & Chem 7: 11/11/23 14:25 11/13/23 04:02 Labs: Abnormal Lab Results - Last 24 Hours (Table) 11/12/23 11/12/23 11/12/23 Range/Units 08:04 11:39 13:54 Sodium 123 L 125 L (137-145) mmol/L Chloride (96-109) mmol/L Carbon Dioxide (21.6-31.8) mmol/L Anion Gap (4.00-12.00) mmol/L BUN (9.0-27.0) mg/dL Creatinine (0.6-1.5) mg/dL Est GFR (CKD-EPI) (>=60) Calcium (8.7-10.3) mg/dL Procalcitonin 3.68 H (0.02-0.09) ng/mL 11/12/23 11/12/23 11/13/23 Range/Units 16:00 19:54 04:02 Sodium 124 L 122 L 123 L (137-145) mmol/L Chloride 87 L (96-109) mmol/L Carbon Dioxide 19.1 L (21.6-31.8) mmol/L Anion Gap 16.90 H (4.00-12.00) mmol/L BUN 98.7 H (9.0-27.0) mg/dL Creatinine 5.8 H (0.6-1.5) mg/dL Est GFR (CKD-EPI) 12 L (>=60) Calcium 7.9 L (8.7-10.3) mg/dL Procalcitonin (0.02-0.09) ng/mL Microbiology - Last 24 Hours (Table) 11/11/23 14:26 Urine Culture - Final Urine,Voided Assessment and Plan Plan: Assessment: 1. Acute kidney injury secondary to ATN secondary to hepatorenal syndrome. Creatinine 5.8 today. Creatinine 1.4 dated November 06, 2023. No hydronephrosis noted on kidney ultrasound. 2. Hyponatremia secondary to acute kidney injury. Also component of poor solute intake as well as hypervolemia with ascites. Sodium level worsened with isotonic fluid infusion and is s/p 3% saline. Last sodium 123. Urine sodium less than 20 and urine osmolality 319. TSH normal. 3. Alcohol induced liver cirrhosis. 4. Metabolic acidosis secondary to acute kidney injury as well as compensatory for underlying respiratory alkalosis from liver cirrhosis. better. 5. Hyperkalemia secondary to acute kidney injury, Aldactone and metabolic acidosis. Improved. 6. Ascites requiring large-volume paracentesis. Last paracentesis November 06, 2023 with 9.6 L drained. Plan: encourage oral intake. maintain fluid restriction. add Aldactone. Add Lasix. Add octreotide. maintain midodrine. Continue to monitor renal function and urine output. Continue to assess daily for need for renal replacement therapy. Avoid nephrotoxins. prognosis poor. Patient waiting for his needs to come. Hospice discussed at length and he seems open to it. renal replacement therapy was discussed with the patient.
[2023-11-13] MEDS: MORPHINE SULFATE 4 MG/ML SYRINGE IVP STA (11:54)
[2023-11-13] MEDS: FUROSEMIDE 20 MG TAB PO SCH (11:56)
[2023-11-13] MEDS: SPIRONOLACTONE 25 MG TAB PO SCH (11:56)
[2023-11-13] MEDS: MIDODRINE 5 MG TAB PO SCH (11:57)
[2023-11-13] MEDS: OCTREOTIDE 100 MCG/ML INJ SQ SCH (12:32)
--- NOTE | 2023-11-13 14:11 | P.PN ---
Subjective Progress Note Date: 11/13/23 Principal diagnosis: Patient is a 43-year-old male with past medical history of incarcerated umbilical hernia requiring hospitalization and stage IV liver failure presenting to the ED on 11/11/2023 for with generalized weakness. Today he was seen in the ICU. Patient came in yesterday to the hospital for his weekly paracentesis but it was canceled because of the patient's severe hyponatremia with sodium of 119. He is currently on hypertonic saline at 25 ml/hour. Patient endorses sharp abdominal pain at the site of insertion of the repair and states the pain is 9 out of 10 and also has a pressure sore stage II. abdominal ultrasound shows a small amount of abdominal ascites and a Epps catheter in place. Today her procalcitonin has been ordered. Labs show sodium of 122, potassium 5, chloride 91, BUN 96, and creatinine 5.84. Patient denies fever, chills, cough, shortness of breath or chest pain. Nephrology has been consulted. Progress note dated 11/13/23 The patient was evaluated today on the medical floors. No acute changes. He still complains of the pain at the site of insertion of the repair. Denies shortness of breath, cough, chest pain. Today his sodium is 123. Labs show K 4.8, Chloride 87, BUn 98.7, Creatinine 5.8, and calcium 7.9. He is currently on furosemide 20 mg, midodrine 10 mg, octreotide 50 mcg, spironolactone 25mg and Rocephin at 100ml/hr. The hypertonic saline has been discontinued. Patient has requested hospice information meeting. Objective - Vital Signs Vital signs: Vital Signs Temp 98.0 F 11/13/23 13:43 Pulse 91 11/13/23 13:43 Resp 20 11/13/23 13:43 BP 108/48 11/13/23 13:43 Pulse Ox 99 11/13/23 13:47 FiO2 Intake & Output 11/12/23 11/13/23 11/13/23 18:59 06:59 18:59 Intake Total 125 Output Total 285 650 Balance -160 -650 Intake: IV 125 Sodium Chloride 3%( 125 Hypertonic) 500 ml @ 25 mls/hr IV .Q20H ONE Rx#: [id number] Output: Urine 285 650 Other: Voiding Method Indwelling Catheter Indwelling Catheter Indwelling Catheter # Bowel Movements 1 1 - Exam General: No acute distress Head: atraumatic, normocephalic, symmetric Eyes: EOMI, no lid lag, pupils equal round reactive to light ENT: Nose and ears atraumatic Neck: No cervical lymphadenopathy, trachea midline, supple Mouth: no lip lesion, mucus membranes moist Cardiovascular: S1S2 reg, no murmur, positive dorsalis pedis pulse bilateral, no edema Lungs: No rhonchi, no rales, no accessory muscle use Abdominal: Tenderness at the well healing surgical incision which is intact with no surrounding erythema, no guarding noted Ext: muscle strength 4 out of 5 in all 4 extremities grossly, no gross muscle atrophy, no contractures Neuro: CN II-XI grossly intact, no gross focal neuro deficits Psych: Alert, oriented, appropriate affect - Labs CBC & Chem 7: 11/11/23 14:25 11/13/23 04:02 Labs: Abnormal Lab Results - Last 24 Hours (Table) 11/12/23 11/12/23 11/12/23 Range/Units 08:04 13:54 16:00 Sodium 125 L 124 L (137-145) mmol/L Chloride (96-109) mmol/L Carbon Dioxide (21.6-31.8) mmol/L Anion Gap (4.00-12.00) mmol/L BUN (9.0-27.0) mg/dL Creatinine (0.6-1.5) mg/dL Est GFR (CKD-EPI) (>=60) Calcium (8.7-10.3) mg/dL Procalcitonin 3.68 H (0.02-0.09) ng/mL 11/12/23 11/13/23 Range/Units 19:54 04:02 Sodium 122 L 123 L (137-145) mmol/L Chloride 87 L (96-109) mmol/L Carbon Dioxide 19.1 L (21.6-31.8) mmol/L Anion Gap 16.90 H (4.00-12.00) mmol/L BUN 98.7 H (9.0-27.0) mg/dL Creatinine 5.8 H (0.6-1.5) mg/dL Est GFR (CKD-EPI) 12 L (>=60) Calcium 7.9 L (8.7-10.3) mg/dL Procalcitonin (0.02-0.09) ng/mL Microbiology - Last 24 Hours (Table) 11/11/23 14:26 Urine Culture - Final Urine,Voided Assessment and Plan Assessment: Acute kidney injury secondary to ATN secondary to hepatorenal syndrome. Creatinine 5.84 today. Hyponatremia secondary to acute kidney injury. Last sodium 1223. Alcohol induced liver cirrhosis. Ascites requiring large-volume paracentesis. Status post incarcerated umbilical hernia repair Plan: Continue symptomatic and supportive care Diuretics per recommendations from nephrology Hospice consult placed, patient interested in hospice care Encourage oral intake, maintain fluid restriction Continue to monitor renal function and urine output. Prognosis is guarded. Minutes spent with the patient: 20 Time with Patient: Less than 30
[2023-11-13] MEDS: ALBUMIN HUMAN 25% 50 ML in EMPTY BAG 1 BAG IVPB SCH (15:19)
--- NOTE | 2023-11-13 15:48 | US ---
EXAMINATION TYPE: US paracentesis abd w/image DATE OF EXAM: 11/13/2023 2:17 PM CLINICAL INDICATION:Male, 43 years old with history of See IR consult for order details.; COMPARISON: 11/06/2023 ATTENDING: Dr. Marcin Calixto PROCEDURE: Informed consent was obtained. The risks of the procedure were extensively explained incl uding risk of damage to surrounding bowel with perforation and need for additional procedures. Proced ure was performed in the ultrasound procedure suite. Ultrasound imaging of the abdomen demonstrate as citic fluid. An appropriate access site was localized to the right lower abdomen. Timeout was taken p er protocol. The skin was prepped and draped in the usual sterile fashion and then locally anesthetiz ed with 1% lidocaine. The peritoneal cavity was then accessed via a 5-Pashto one-step needle/cathete r. Approximately 8600 cc of clear straw-colored fluid was obtained. Postprocedural imaging of the a bdomen demonstrate a minimal amount of abdominal fluid. Patient tolerated procedure well without immediate complication. Hemostasis at the procedural site w as obtained with a sterile bandage placed. The patient was monitored in the holding area following th e procedure and was subsequently discharged in stable condition. IMPRESSION: Ultrasound guided paracentesis, with approximately 8600 cc of clear straw-colored fluid drained. No immediate complications were evident.
[2023-11-13] MEDS: MORPHINE ORAL SOLN 10 MG/5 ML CUP PO PRN (16:44)
--- NOTE | 2023-11-13 17:50 | P.PN ---
Subjective Progress Note Date: 11/13/23 Subjective: Seen and examined at bedside. No acute events overnight. Complaining of severe abdominal pain. Patient states he would like to speak with hospice. Pertinent positives and negatives as discussed above, a complete review of systems was performed and all other systems are negative. Vitals Signs Reviewed. General: Nontoxic, no distress, chronically ill-appearing Derm: Warm, dry, multiple lower extremity excoriations Head: Atraumatic, normocephalic, symmetric Eyes: EOMI, no lid lag, icteric sclera Mouth: No lip lesion, mucus membranes moist Cardiovascular: S1S2 reg, no murmur Lungs: CTA bilateral, no rhonchi, no rales, no accessory muscle use Abdominal: Soft, diffusely tender to palpation,, slightly distended no guarding, no appreciable organomegaly Ext: Atrophic muscles, no edema, no contractures Neuro: CN II-XI grossly intact, no focal neuro deficits Psych: Alert, oriented, appropriate affect Data Reviewed Today: Pertinent Labs: Sodium 121 potassium 4.8, chloride 87, carbon oxide 19.1, BUN 98.7, creatinine 5.8, estimated GFR 12, and calcium 7.9. Imaging: Ultrasound-guided paracentesis: Approximately 8600 cc of clear straw- colored fluid drained. No immediate complications were evident. Assessment and Plan: Severe hyponatremia, likely hypovolemic Acute kidney injury, likely ATN Hepatorenal syndrome Alcoholic cirrhosis Uremia, metabolic acidosis Hyperkalemia, resolved Recent incarcerated umbilical hernia, s/p surgery -Nephrology note reviewed, holding 3% saline, sodium level slowly increased, continue to monitor -status post further sodium bicarb IV -Hospice consulted, are reaching out to his niece to discuss his options. Patient was deemed stable enough, and received paracentesis today, 8600 cc drained. -Continue to monitor urine output strictly -Pulmonology note reviewed, continue current management -GI note reviewed, agree with hospice consult. Patient received midodrine 10 mg, albumin human 25% 50 mL IVPB, 4 bags for large volume para. Patient also started on Lasix 20 mg p.o. daily. Patient also received morphine 5 mg p.o. every 4 HR as needed. continue lactulose 20 twice daily, titrate to 2-3 bowel movements a day -Hold Aldactone Started on Protonix 40 mg p.o. daily. DVT ppx: SCDs Code status: DNR/DNI Anticipated discharge place: Pending clinical course Anticipated discharge time: Pending clinical course I have seen and evaluated the patient today. Discussed with the resident and agree with resident's findings and plan as documented in the resident's note. Changes highlighted in blue font. Extensive discussion with hospice, family as well as the patient are on board with hospice. Comfort care orders added. Antibiotics, and monitor trend discontinued. Started on oral morphine 5 mg every 4 hours as needed for breakthrough pain. Close status changed to DNR/DNI. Likely discharge on Thursday to a hospice facility. Objective - Vital Signs Vital signs: Vital Signs Temp 98.1 F 11/13/23 01:35 Pulse 103 H 11/13/23 01:35 Resp 28 H 11/13/23 01:35 BP 87/47 11/13/23 01:35 Pulse Ox 98 11/13/23 01:35 FiO2 Intake & Output 11/12/23 11/13/23 11/13/23 18:59 06:59 18:59 Intake Total 125 Output Total 285 650 Balance -160 -650 Intake: IV 125 Sodium Chloride 3%( 125 Hypertonic) 500 ml @ 25 mls/hr IV .Q20H ONE Rx#: [id number] Output: Urine 285 650 Other: Voiding Method Indwelling Catheter Indwelling Catheter # Bowel Movements 1 1 - Labs CBC & Chem 7: 11/11/23 14:25 11/13/23 16:23 Labs: Abnormal Lab Results - Last 24 Hours (Table) 11/12/23 11/12/23 11/12/23 Range/Units 08:04 08:04 08:04 Sodium 119 L* (137-145) mmol/L Ammonia 56 H (<30) umol/L Procalcitonin 3.68 H (0.02-0.09) ng/mL 11/12/23 11/12/23 11/12/23 Range/Units 09:52 11:39 13:54 Sodium 122 L 123 L 125 L (137-145) mmol/L Ammonia (<30) umol/L Procalcitonin (0.02-0.09) ng/mL 11/12/23 11/12/23 Range/Units 16:00 19:54 Sodium 124 L 122 L (137-145) mmol/L Ammonia (<30) umol/L Procalcitonin (0.02-0.09) ng/mL Microbiology - Last 24 Hours (Table) 11/11/23 14:26 Urine Culture - Final Urine,Voided
[2023-11-13] MEDS: MORPHINE SULFATE 2 MG/ML SYRINGE IVP PRN (18:23)
[2023-11-14 08:21] LABS: ALT 14 U/L (4-49); AST 36 U/L (17-59); Albumin 2.9 g/dL (3.5-5.0); Albumin/Globulin Ratio 0.9; Alkaline Phosphatase 100 U/L (38-126); Anion Gap 13 mmol/L; Calcium 7.9 mg/dL (8.4-10.2); Carbon Dioxide 18 mmol/L (22-30); Chloride 89 mmol/L (98-107); Globulin 3.2 g/dL; Glucose 111 mg/dL (74-99); Potassium 4.9 mmol/L (3.5-5.1); Sodium 120 mmol/L (137-145); Total Bilirubin 2.4 mg/dL (0.2-1.3); Total Protein 6.1 g/dL (6.3-8.2)
[2023-11-14 08:28] LABS: African American GFR (CKD) 17 (>60 ml/min/1.73 sqM); Non-African American GFR(CKD) 15 (>60 ml/min/1.73 sqM)
[2023-11-14 08:37] LABS: Blood Urea Nitrogen 103 mg/dL (9-20)
--- NOTE | 2023-11-14 11:48 | P.PN ---
Subjective Progress Note Date: 11/14/23 Subjective: Seen and examined at bedside. No acute events overnight. Still complaining of some abdominal pain. Pertinent positives and negatives as discussed above, a complete review of systems was performed and all other systems are negative. Vitals Signs Reviewed. General: Nontoxic, no distress, chronically ill-appearing Derm: Warm, dry, multiple lower extremity excoriations Head: Atraumatic, normocephalic, symmetric Eyes: EOMI, no lid lag, icteric sclera Mouth: No lip lesion, mucus membranes moist Cardiovascular: S1S2 reg, no murmur Lungs: CTA bilateral, no rhonchi, no rales, no accessory muscle use Abdominal: Soft, diffusely tender to palpation,, slightly distended no guarding, no appreciable organomegaly Ext: Atrophic muscles, no edema, no contractures Neuro: CN II-XI grossly intact, no focal neuro deficits Psych: Alert, oriented, appropriate affect Data Reviewed Today: Pertinent Labs: Pending labs for today Imaging: No new imaging Assessment and Plan: Severe hyponatremia, likely hypovolemic Acute kidney injury, likely ATN Hepatorenal syndrome Alcoholic cirrhosis Uremia, metabolic acidosis Hyperkalemia, resolved Recent incarcerated umbilical hernia, s/p surgery Discontinued all non-comfort care measure medications after patient agreed to hospice. Hospice will see patient on Thursday. Potential for abdominal drain to be placed so patient can comfortably be outpatient without continuously requiring additional paracenteses. Comfort care medications: Lasix 20 mg p.o. daily, lactulose 20 g p.o. twice daily, morphine 5 mg p.o. every 4 HR as needed, morphine sulfate 2 mg IVP every 4 hours as needed, and Protonix 40 mg p.o. daily. Patient also received morphine 5 mg p.o. every 4 HR as needed. -Nephrology, and pulmonology following -GI seen patient during this admission received paracentesis (11/12), 8600 cc drained. DVT ppx: SCDs Code status: DNR/DNI Anticipated discharge place: Likely home or hospice facility. Anticipated discharge time: Likely Thursday after seeing hospice I have seen and evaluated the patient today. Discussed with the resident and agree with the residents finding and plan as documented in the resident's note. Changes highlighted in blue font. Objective - Vital Signs Vital signs: Vital Signs Temp 98.0 F 11/13/23 13:43 Pulse 83 11/13/23 15:39 Resp 20 11/13/23 15:39 BP 109/52 11/13/23 15:39 Pulse Ox 99 11/13/23 15:39 FiO2 Intake & Output 11/13/23 11/14/23 11/14/23 18:59 06:59 18:59 Intake Total 360 Output Total 800 Balance 360 -800 Intake: Oral 360 Output: Urine 800 Other: Voiding Method Indwelling Catheter Indwelling Catheter - Labs CBC & Chem 7: 11/11/23 14:25 11/14/23 07:43 Labs: Abnormal Lab Results - Last 24 Hours (Table) 11/13/23 11/13/23 Range/Units 04:02 16:23 Sodium 123 L 121 L (135-145) mmol/L Chloride 87 L (96-109) mmol/L Carbon Dioxide 19.1 L (21.6-31.8) mmol/L Anion Gap 16.90 H (4.00-12.00) mmol/L BUN 98.7 H (9.0-27.0) mg/dL Creatinine 5.8 H (0.6-1.5) mg/dL Est GFR (CKD-EPI) 12 L (>=60) Calcium 7.9 L (8.7-10.3) mg/dL
--- NOTE | 2023-11-15 11:45 | P.PN ---
Subjective Progress Note Date: 11/15/23 Subjective: Seen and examined at bedside. No acute events overnight. Still complaining of some abdominal pain. Pertinent positives and negatives as discussed above, a complete review of systems was performed and all other systems are negative. Vitals Signs Reviewed. General: Nontoxic, no distress, chronically ill-appearing Derm: Warm, dry, multiple lower extremity excoriations Head: Atraumatic, normocephalic, symmetric Eyes: EOMI, no lid lag, icteric sclera Mouth: No lip lesion, mucus membranes moist Cardiovascular: S1S2 reg, no murmur Lungs: CTA bilateral, no rhonchi, no rales, no accessory muscle use Abdominal: Soft, diffusely tender to palpation,, slightly distended no guarding, no appreciable organomegaly Ext: Atrophic muscles, no edema, no contractures Neuro: CN II-XI grossly intact, no focal neuro deficits Psych: Alert, oriented, appropriate affect Data Reviewed Today: Pertinent Labs: No new labs Imaging: No new imaging Assessment and Plan: Severe hyponatremia, likely hypovolemic Acute kidney injury, likely ATN Hepatorenal syndrome Alcoholic cirrhosis Uremia, metabolic acidosis Hyperkalemia, resolved Recent incarcerated umbilical hernia, s/p surgery Discontinued all non-comfort care measure medications after patient agreed to hospice. Hospice will see patient on Thursday. Potential for abdominal drain to be placed so patient can comfortably be outpatient without continuously requiring additional paracenteses. Comfort care medications: Lasix 20 mg p.o. daily, lactulose 20 g p.o. twice daily, morphine 5 mg p.o. every 4 HR as needed, increased morphine sulfate 4 mg IVP every 4 hours as needed, and Protonix 40 mg p.o. daily. Patient also received morphine 5 mg p.o. every 4 HR as needed. -Nephrology, and pulmonology following -GI seen patient during this admission received paracentesis (11/12), 8600 cc drained. DVT ppx: SCDs Code status: DNR/DNI Anticipated discharge place: Likely home or hospice facility. Anticipated discharge time: Likely Thursday after seeing hospice Objective - Vital Signs Vital signs: Vital Signs Temp 98.0 F 11/13/23 13:43 Pulse 83 11/13/23 15:39 Resp 20 11/13/23 15:39 BP 109/52 07/19/24 15:39 Pulse Ox 99 11/13/23 15:39 FiO2 Intake & Output 11/14/23 11/15/23 11/15/23 18:59 06:59 18:59 Intake Total 690 Output Total 400 500 Balance 290 -500 Intake: Oral 690 Output: Urine 400 500 Other: Voiding Method Indwelling Catheter Indwelling Catheter Indwelling Catheter - Labs CBC & Chem 7: 11/11/23 14:25 11/14/23 07:43
[2023-11-15] MEDS: MORPHINE SULFATE 4 MG/ML SYRINGE IVP PRN (15:52)
--- NOTE | 2023-11-16 12:57 | P.DS ---
Providers Date of admission: 11/11/23 17:44 Expected date of discharge: 11/16/23 Attending physician: Ezio Ambrocio MD Consults: 11/11/23 18:14 Consult Physician Urgent Consulting Provider: Ignacio Howard Consult Reason/Comments: acute renal failure Do you want consulting provider notified?: Yes Consult Physician Urgent Consulting Provider: Gina Negron Consult Reason/Comments: stage 4 liver failure Do you want consulting provider notified?: Yes 11/12/23 05:19 Consult Physician Stat Consulting Provider: Marcin Awan Consult Reason/Comments: icu management Do you want consulting provider notified?: Yes Primary care physician: Mikel Urias Hospital Course: Discharge Diagnosis: Severe symptomatic hyponatremia End-stage cirrhosis Hyperkalemia IVAN on CKD Hepatorenal syndrome Hematuria Leukocytosis hypotension Hospital Course: Patient is a 43-year-old male with past medical history of stage IV liver failure managed with weekly paracentesis (last paracentesis on 11/09/2023 - 9600 cc drained), hypertension and hyperlipidemia presented to ER with complaint of generalized weakness. In the ED patient admitted to abdominal pain near the site of his incision for a recent hernia repair. Patient denied diarrhea or constipation, fever, chills, nausea, vomiting, headaches, dizziness, loss of consciousness, blurred vision, shortness of breath, chest pain, numbness or tingling upper lower extremities, and lower extremity swelling. In the ED patient's vitals were within normal limits. In the ED patient received labs significant for sodium 119 (baseline 125), WBC 10.9, hemoglobin 9.8 (at baseline), hematocrit 30.8, platelet count 238, PT 16.8, INR 1.6 (baseline 1.5), PTT 36.9, , potassium 5.3, chloride 91, bicarb 15, anion gap 13, BUN 96, creatinine 4.65, EGFR 11, glucose 126, calcium 7.8, troponin 0.012, albumin 3.0, lipase 370. Patient also received imaging with EKG which showed normal sinus rhythm with heart rate of 84 bpm, MI interval 139 MS. Normal R wave progression. No QTc prolongation noted. Patient also received on the ultrasound which shows no evidence of obstructive uropathy with Epps catheter in place and small amount of abdominal ascites. Patient was admitted for further workup of generalized weakness, severe hyponatremia, and liver cirrhosis. After admission shortly after patient was deemed necessary to be admitted to the ICU for treatment of severe hyponatremia. Once patient's sodium levels stabilized, he was downgraded to the floors. While in the hospital patient received ultrasound-guided paracentesis which drained approximately 8600 cc of clear straw-colored fluid. There were no immediate complications after the procedure. It was deemed during this visit necessary the patient would benefit from speaking with hospice. After hospice spoke with the patient and his family members it was decided that he would be placed in hospice at home. At this point, patient's medications were tailored towards symptomatic relief rather than systemic problem control. Patient received Lasix and IV morphine to control fluid levels causing increased pain and generalized pain from his conditions. Patient was discharged to home with hospice care. Vital signs reviewed and stable: General: Nontoxic, no distress, chronically ill-appearing Derm: Warm, dry, multiple lower extremity excoriations Head: Atraumatic, normocephalic, symmetric Eyes: EOMI, no lid lag, icteric sclera Mouth: No lip lesion, mucus membranes moist Cardiovascular: S1S2 reg, no murmur Lungs: CTA bilateral, no rhonchi, no rales, no accessory muscle use Abdominal: Soft, diffusely tender to palpation,, slightly distended no guarding, no appreciable organomegaly Ext: Atrophic muscles, no edema, no contractures Neuro: CN II-XI grossly intact, no focal neuro deficits Psych: Alert, oriented, appropriate affect A total of 33 minutes were spent preparing this complex discarge summary. Patient was discharged on 11/16/23 at 1408. I have seen and evaluated the patient today. Discussed with the resident and agree with resident's findings and plan as documented in the resident's note. Changes highlighted in blue font. Plan - Discharge Summary Discharge Rx Participant: Yes New Discharge Prescriptions: New MORPHINE ORAL BEATRIZ 2mg/mL [Morphine Oral Soln 2 MG/ML] 5 mg PO Q4HR PRN ml PRN Reason: Breakthrough Pain Furosemide [Lasix] 20 mg PO DAILY tab Continue Omeprazole 20 mg PO DAILY@0600 Lactulose [Cephulac] 20 gm PO DAILY 30 Days #1000 ml Ondansetron [Zofran] 4 mg PO Q6H PRN PRN Reason: Nausea And Vomiting Discontinued HYDROcodone/APAP 5-325MG [[place] 5-325] 1 - 2 tab PO Q4HR PRN PRN Reason: Pain Spironolactone [Aldactone] 25 mg PO BID@0600,1300 Midodrine HCl [ProAmatine] 10 mg PO TID@0600,1300,2100 Furosemide [Lasix] 40 mg PO DAILY@0600 Discharge Medication List Lactulose [Cephulac] 20 gm PO DAILY 30 Days #1000 ml 11/06/23 [Rx] Omeprazole 20 mg PO DAILY@0600 11/11/23 [History] Ondansetron [Zofran] 4 mg PO Q6H PRN 11/11/23 [History] Furosemide [Lasix] 20 mg PO DAILY tab 11/16/23 [Rx] MORPHINE ORAL BEATRIZ 2mg/mL [Morphine Oral Soln 2 MG/ML] 5 mg PO Q4HR PRN ml 11/16/23 [Rx] Discharge Disposition: HOME WITH HOSPICE
[2023-11-16 19:39] VITALS: BP 92/55; PULSE 97; RESP 16; TEMP 98.7
== END 2023-11-16 19:55 | disposition hospice, home (50) | DRG 441 ==
LOC: EC 14:19 → 3SCARD 17:43 → OBSVTOIN 17:44 → 3SCARD 22:13 → 2SICU 11-12 05:10 → 5NMEDONC 11-12 18:15
PROVIDERS: ADMIT Student in an Organized Health Care Education/Training Program; ATTEND Student in an Organized Health Care Education/Training Program
PROC: 0W9G3ZZ Drainage of Peritoneal Cavity, Percutaneous Approach (ICD-10-PCS; principal; 2023-11-11)
DX: K76.7 Hepatorenal syndrome (principal); N17.0 Acute kidney failure with tubular necrosis; E87.1 Hypo-osmolality and hyponatremia; E87.4 Mixed disorder of acid-base balance; K70.40 Alcoholic hepatic failure without coma; L89.152 Pressure ulcer of sacral region, stage 2; K70.31 Alcoholic cirrhosis of liver with ascites; I95.9 Hypotension, unspecified; F10.20 Alcohol dependence, uncomplicated; I12.9 Hypertensive chronic kidney disease with stage 1 through stage 4 chronic kidney disease, or unspecified chronic kidney disease; N18.9 Chronic kidney disease, unspecified; F32.A Depression, unspecified; D64.9 Anemia, unspecified; Z51.5 Encounter for palliative care; Z66 Do not resuscitate; Z28.311 Partially vaccinated for COVID-19; R31.9 Hematuria, unspecified; F43.10 Post-traumatic stress disorder, unspecified; E86.1 Hypovolemia; E87.70 Fluid overload, unspecified; E87.5 Hyperkalemia; D72.829 Elevated white blood cell count, unspecified; E78.5 Hyperlipidemia, unspecified; M54.6 Pain in thoracic spine; Z91.199 Patient's noncompliance with other medical treatment and regimen due to unspecified reason; Z79.899 Other long term (current) drug therapy; Z87.891 Personal history of nicotine dependence; Z88.6 Allergy status to analgesic agent
CPT/HCPCS: 36415; 49083; 51702; 76770; 80048; 80053; 81001; 82140; 82150; 82533; 83605; 83690; 83735; 83930; 83935; 84145; 84295; 84300; 84443; 84484; 85025; 85610; 85730; 87086; 93005; 96365; 96366; 96375; 99285